=== PATIENT | female | born 1950 | race Caucasian/White ===

== ENCOUNTER 2020-11-14 04:19 | Emergency (ER) | payer MEDICARE, SELFPAY ==
--- NOTE | ~2020-11-14 | CT_ITS ---
EXAMINATION: CT ABDOMEN AND PELVIS WITHOUT CONTRAST CLINICAL INFORMATION: Fall with back and abdominal pain COMPARISON: None TECHNIQUE: Multidetector volumetric imaging was performed from the superior aspect of the liver through the pubic symphysis. Sagittal and coronal reformatted images were obtained on the technologist's workstation. This CT examination was performed using dose optimization techniques as appropriate, variously including the following: *Automated exposure control *Adjustment of mA and/or kV according to patient size (this includes techniques or standardized protocols for targeted exams where dose is matched to indication/reason for exam; i.e. extremities or head) *Use of iterative reconstruction technique DLP: 868 mGy-cm FINDINGS: LUNG BASES: The visualized lung bases are unremarkable. LIVER, GALLBLADDER, AND BILIARY TREE: The liver is normal in size, shape, and attenuation. No focal hepatic lesion or biliary ductal dilatation is present. Gallbladder unremarkable. PANCREAS: Unremarkable. SPLEEN: Unremarkable. ADRENAL GLANDS: There is a 1.6 cm nodule within left adrenal gland measuring -15 Hounsfield units (compared to the spleen is 23 Hounsfield units, which corrects to 2 Hounsfield units), compatible with a lipid rich adenoma. Right adrenal gland is normal. KIDNEYS AND URETERS: The kidneys are normal in size, shape, and attenuation. There are bilateral renal cysts including a few hyperdense cyst within the lower pole right kidney. No hydronephrosis, hydroureter, or calculi seen. No perinephric stranding. BLADDER: Unremarkable. GASTROINTESTINAL TRACT: The small and large bowel are unremarkable. The appendix is unremarkable. ABDOMINAL WALL: No significant hernia is appreciated. LYMPH NODES: Normal. VASCULAR: Aorta is atherosclerotic. Penetrating atherosclerotic ulceration/focal dissection evident within the infrarenal abdominal aorta, incompletely characterized on this unenhanced exam. No aortic aneurysm or periaortic fat stranding. PELVIC VISCERA: Uterus and adnexa unremarkable. OSSEOUS STRUCTURES: Mildly displaced fractures of the right L1 and L2 transverse processes. Nondisplaced fracture of the right posterior 10th rib. CT/CT abdomen pelvis wo con IMPRESSION: * Mildly displaced fractures of the right L1 and L2 transverse processes. * Nondisplaced right posterior 10th rib fracture. * No evidence of solid or hollow visceral injury within the abdomen or pelvis. * Bilateral renal cysts, technically indeterminate on this unenhanced exam. Consider nonemergent renal ultrasound for further characterization. 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 * No aortic aneurysm
[2020-11-14 04:30] VITALS: BP 142/98; BP 181/71; PULSE 90; RESP 18; O2SAT 97; O2SAT 99; BMI 36.0
--- NOTE | 2020-11-14 06:23 | ED.FALL ---
HPI - Fall General Chief Complaint: Fall <Jose R Kraft MD - Last Filed: 11/14/20 06:31> Stated Complaint: lower back pain <Jose R Kraft MD - Last Filed: 11/14/20 06:31> Time Seen by Provider: 11/14/20 06:23 <Jose R Kraft MD - Last Filed: 11/14/20 06:31> Source: patient <Jose R Kraft MD - Last Filed: 11/14/20 06:31> Mode of arrival: ambulatory <Jose R Kraft MD - Last Filed: 11/14/20 06:31> Limitations: no limitations <Jose R Kraft MD - Last Filed: 11/14/20 06:31> History of Present Illness HPI Narrative: Patient fell on her back yesterday on her right lower back. patient fell because her legs are weak secondary to her rheumatoid arthritis. Patient states she landed against the bathroom tub. <Jose R Kraft MD - Last Filed: 11/14/20 06:31> MD complaint: fall <Jose R Kraft MD - Last Filed: 11/14/20 06:31> Onset (ago): day(s) <Jose R Kraft MD - Last Filed: 11/14/20 06:31> Fall from: standing <Jose R Kraft MD - Last Filed: 11/14/20 06:31> Place fall occurred: home <Jose R Kraft MD - Last Filed: 11/14/20 06:31> Loss of consciousness: none <Jose R Kraft MD - Last Filed: 11/14/20 06:31> Prolonged down time: no <Jose R Kraft MD - Last Filed: 11/14/20 06:31> Symptoms prior to fall: none <Jose R Kraft MD - Last Filed: 11/14/20 06:31> Context: tripped/slipped <Jose R Kraft MD - Last Filed: 11/14/20 06:31> Location of injury: back <Jose R Kraft MD - Last Filed: 11/14/20 06:31> Related Data Home Medications: Previous Rx's Medication Instructions Recorded lidocaine 5 % topical patch 1 patch TOPICAL DAILY #30 ea 11/14/20 (Lidoderm) <Jose R Kraft MD - Last Filed: 11/14/20 06:31> Allergies/Adverse Reactions: Allergies Allergy/AdvReac Type Severity Reaction Status Date / Time lisinopril [LISINOPRIL] Allergy Severe ANAPHYLAXIS Verified 11/14/20 07:16 Sulfa (Sulfonamide Allergy Intermediate RASH Verified 11/14/20 07:16 Antibiotics) [SULFA (SULFONAMIDE ANTIBIOTICS)] tramadol [TRAMADOL] Allergy Intermediate RASH Verified 11/14/20 07:16 [id number] Reductase Allergy Rash Verified 11/14/20 07:16 Inhibitor hydrochlorothiazide [HCTZ] AdvReac Unknown ABNORMAL Verified 11/14/20 07:16 LABS? <Jose R Kraft MD - Last Filed: 11/14/20 06:31> Review of Systems Constitutional: Constitutional: Reports no additional constitutional complaints <Jose R Kraft MD - Last Filed: 11/14/20 06:31> Eyes: Eyes: Reports no additional eye complaints <Jose R Kraft MD - Last Filed: 11/14/20 06:31> ENT: Denies dizziness <Jose R Kraft MD - Last Filed: 11/14/20 06:31> Cardiovascular: Cardiovascular: Reports no additional cardiovascular complaints <Jose R Kraft MD - Last Filed: 11/14/20 06:31> Respiratory: Respiratory: Reports as per HPI <Jose R Kraft MD - Last Filed: 11/14/20 06:31> Gastrointestinal: Gastrointestinal: Reports no additional gastrointestinal complaints <Jose R Kraft MD - Last Filed: 11/14/20 06:31> Genitourinary: Genitourinary: Reports no additional female genitourinary complaints <Jose R Kraft MD - Last Filed: 11/14/20 06:31> Musculoskeletal: Musculoskeletal: Reports no additional musculoskeletal complaints <Jose R Kraft MD - Last Filed: 11/14/20 06:31> Integumentary/Breasts: Skin/Breast: Denies rash <Jose R Kratf MD - Last Filed: 11/14/20 06:31> Neurologic: Reports system reviewed and no additional complaints, except as documented, Denies dizziness and Denies Sensory deficit (Neuro) <Jose R Kraft MD - Last Filed: 11/14/20 06:31> Psychiatric: Psychiatric: Denies anxiety <Jose R Kraft MD - Last Filed: 11/14/20 06:31> [facility] Past Medical History Medical History: Medical History (Updated 11/14/20 @ 09:54 by Tino Chirinos MD) Depression Fibromyalgia HTN (hypertension) Rheumatoid arthritis <Jose R Kraft MD - Last Filed: 11/14/20 06:31> Surgical History: Surgical History (Updated 11/14/20 @ 04:35 by Ashley Rhoades) Hx of prior ablation treatment Knee joint replacement status <Jose R Kraft MD - Last Filed: 11/14/20 06:31> Social History Social History: Social History Advance Directives: No Advance Directives Information Provided: Yes <Jose R Kraft MD - Last Filed: 11/14/20 06:31> Physical Exam Vital Signs: Vital Signs: Last Vital Signs Pulse 82 11/14/20 08:46 Resp 16 11/14/20 08:46 BP 150/51 H 11/14/20 08:46 Pulse Ox 98 11/14/20 08:46 Body Mass Index 36.0 <Jose R Kraft MD - Last Filed: 11/14/20 06:31> Vital Signs: Last Vital Signs Pulse 82 11/14/20 08:46 Resp 16 11/14/20 08:46 BP 150/51 H 11/14/20 08:46 Pulse Ox 98 11/14/20 08:46 Body Mass Index 36.0 <Tino Chirinos MD - Last Filed: 11/14/20 09:54> Const: Other: obese female looking older than stated age in pain with nausea <Jose R Kraft MD - Last Filed: 11/14/20 06:31> Nutritional Appearance: obese <Jose R Kraft MD - Last Filed: 11/14/20 06:31> Orientation/consciousness: oriented to person and patient oriented x3 <Jose R Kraft MD - Last Filed: 11/14/20 06:31> Limitations: no limitations <Jose R Kraft MD - Last Filed: 11/14/20 06:31> HENMT: Head: Yes normal to inspection <Jose R Kraft MD - Last Filed: 11/14/20 06:31> Ears: external ears normal <Jose R Kraft MD - Last Filed: 11/14/20 06:31> General nose exam: Normal external nose present <Jose R Kraft MD - Last Filed: 11/14/20 06:31> Mouth: Normal oral and palatal mucosa present and oropharynx normal <Jose R Kraft MD - Last Filed: 11/14/20 06:31> Throat: Yes posterior oropharynx normal <Jose R Kraft MD - Last Filed: 11/14/20 06:31> Eyes: General: appearance normal, both eyes and all related structures <Jose R Kraft MD - Last Filed: 11/14/20 06:31> Neck: Other: supple <Jose R Kraft MD - Last Filed: 11/14/20 06:31> Neck: Yes normal visual inspection <Jose R Kraft MD - Last Filed: 11/14/20 06:31> Chest: Chest palpation & inspection: normal inspection of the chest <Jose R Kraft MD - Last Filed: 11/14/20 06:31> Resp: Auscultation: clear to auscultation bilaterally <Jose R Kraft MD - Last Filed: 11/14/20 06:31> Cardio: Jugular venous distension: no JVD <Jose R Kraft MD - Last Filed: 11/14/20 06:31> Rate: regular rate <Jose R Kraft MD - Last Filed: 11/14/20 06:31> Rhythm: regular rhythm <Jose R Kraft MD - Last Filed: 11/14/20 06:31> Heart sounds: S1 normal heart sound present and S2 normal heart sound present <Jose R Kraft MD - Last Filed: 11/14/20 06:31> GI: Other: obese with diffuse tenderness <Jose R Kraft MD - Last Filed: 11/14/20 06:31> Palpation (GI): Tenderness to palpation present (GI) <Jose R Kraft MD - Last Filed: 11/14/20 06:31> Auscultation: normal bowel sounds <Jose R Kraft MD - Last Filed: 11/14/20 06:31> : General: Yes no CVA tenderness <Jose R Kraft MD - Last Filed: 11/14/20 06:31> Back/Spine/Pelvis: Back: no CVA tenderness <Jose R Kraft MD - Last Filed: 11/14/20 06:31> Skin: General skin exam: no rashes or lesions noted <Jose R Kraft MD - Last Filed: 11/14/20 06:31> Neuro: General: oriented to person and patient oriented x3 <Jose R Kraft MD - Last Filed: 11/14/20 06:31> Cranial nerves: Yes CN's II-XII intact bilaterally <Jose R Kraft MD - Last Filed: 11/14/20 06:31> Motor exam (neuro): 5/5 motor strength present throughout <Jose R Kraft MD - Last Filed: 11/14/20 06:31> Sensory Exam: No Sensory deficit (Neuro) <Jose R Kraft MD - Last Filed: 11/14/20 06:31> Extrem: General: Yes normal to inspection <Jose R Kraft MD - Last Filed: 11/14/20 06:31> Psych: Appearance: grossly normal <Jose R Kraft MD - Last Filed: 11/14/20 06:31> MDM - Fall MDM Narrative Medical decision making narrative: Patient status post mechanical fall CT scan showed mildly displaced transverse process fracture of L1 and L2 and nondisplaced fracture of right posterior 10th rib . No neuro deficit no no impingement on the spinal cord or nerve roots patient able to ambulate in the ER. Will discharge patient on pain meds which she already has at home taking oxycodone <Tino Chirinos MD - Last Filed: 11/14/20 09:54> Lab Data Result diagrams: : 11/14/20 07:10 11/14/20 07:10 <Jose R Kraft MD - Last Filed: 11/14/20 06:31> Labs: Lab Results 11/14/20 11/14/20 11/14/20 Range/Units 07:10 07:10 07:10 WBC 10.6 (4.8-10.8) X10*3/uL RBC 3.43 L (4.20-5.50) X10*6/uL Hgb 11.2 L (12.0-16.0) g/dl Hct 33.7 L (37-47) % MCV 98.3 H (80-98) fL MCH 32.7 (27.0-33.0) pg MCHC 33.2 (31.0-35.0) g/dl RDW 14.7 (11.0-16.0) % Plt Count 195 (160-400) X10*3/uL MPV 10.2 (9.4-12.3) fL Immature Gran % (Auto) 0.7 H (0.0-0.4) % Neut % (Auto) 80.9 H (45-73) % Lymph % (Auto) 13.2 L (20-40) % Bay % (Auto) 3.1 (2-11) % Eos % (Auto) 1.9 (0-4) % Baso % (Auto) 0.2 (0-2) % Lymph # (Auto) 1.4 (1.2-4.9) X10*3/uL Bay # (Auto) 0.3 (0.1-1.2) X10*3/uL Eos # (Auto) 0.2 (0.0-0.4) X10*3/uL Baso # (Auto) 0.0 (0.0-0.2) X10*3/uL Abs Immat Gran (auto) 0.07 H (0.00-0.03) X10*3/uL Absolute Neuts (auto) 8.6 H (2.0-8.3) X10*3/uL Absolute Nucleated RBC 0.000 (0.0-0.012) X10*3/uL Nucleated RBC % (auto) 0.0 (0.0-0.2) /100WBC Sodium 136 (135-145) mmol/L Potassium 4.6 (3.3-5.1) mmol/L Chloride 101 (96-108) mmol/L Carbon Dioxide 24 (22-29) mmol/L Anion Gap 16 (12-20) BUN 43 H (9-16) mg/dL Creatinine 1.28 (0.5-1.4) mg/dL Estim Creat Clear Calc 52.2 Estimated GFR 41 Random Glucose 102 (60-115) mg/dL Calcium 9.6 (8.4-10.2) mg/dL Total Bilirubin 0.7 (0.0-1.0) mg/dL Direct Bilirubin 0.3 (0.0-0.5) mg/dL AST 20 (5-31) U/L ALT 17 (0-31) U/L Alkaline Phosphatase 94 (39-117) U/L Total Protein 6.9 (6.5-8.0) g/dL Albumin 3.9 (3.5-5.0) g/dL Urine Color Urine Appearance Urine pH (5.0-8.0) Ur Specific [place] (1.005-1.025) Urine Protein (NEG-TRACE) MG/DL Urine Glucose (UA) (NEG) MG/DL Urine Ketones (NEG) MG/DL Urine Blood (NEG) Urine Nitrite (NEG) Ur Leukocyte Esterase (NEG) Urine RBC (0) /HPF Urine WBC (0-4) /HPF Ur Squamous Epith Cells /LPF Urine Bacteria /LPF 11/14/20 Range/Units 08:45 WBC (4.8-10.8) X10*3/uL RBC (4.20-5.50) X10*6/uL Hgb (12.0-16.0) g/dl Hct (37-47) % MCV (80-98) fL MCH (27.0-33.0) pg MCHC (31.0-35.0) g/dl RDW (11.0-16.0) % Plt Count (160-400) X10*3/uL MPV (9.4-12.3) fL Immature Gran % (Auto) (0.0-0.4) % Neut % (Auto) (45-73) % Lymph % (Auto) (20-40) % Bay % (Auto) (2-11) % Eos % (Auto) (0-4) % Baso % (Auto) (0-2) % Lymph # (Auto) (1.2-4.9) X10*3/uL Bay # (Auto) (0.1-1.2) X10*3/uL Eos # (Auto) (0.0-0.4) X10*3/uL Baso # (Auto) (0.0-0.2) X10*3/uL Abs Immat Gran (auto) (0.00-0.03) X10*3/uL Absolute Neuts (auto) (2.0-8.3) X10*3/uL Absolute Nucleated RBC (0.0-0.012) X10*3/uL Nucleated RBC % (auto) (0.0-0.2) /100WBC Sodium (135-145) mmol/L Potassium (3.3-5.1) mmol/L Chloride (96-108) mmol/L Carbon Dioxide (22-29) mmol/L Anion Gap (12-20) BUN (9-16) mg/dL Creatinine (0.5-1.4) mg/dL Estim Creat Clear Calc Estimated GFR Random Glucose (60-115) mg/dL Calcium (8.4-10.2) mg/dL Total Bilirubin (0.0-1.0) mg/dL Direct Bilirubin (0.0-0.5) mg/dL AST (5-31) U/L ALT (0-31) U/L Alkaline Phosphatase (39-117) U/L Total Protein (6.5-8.0) g/dL Albumin (3.5-5.0) g/dL Urine Color YELLOW Urine Appearance HAZY Urine pH 6.0 (5.0-8.0) Ur Specific [place] 1.025 (1.005-1.025) Urine Protein TRACE (NEG-TRACE) MG/DL Urine Glucose (UA) NEG (NEG) MG/DL Urine Ketones 15 (NEG) MG/DL Urine Blood 1+ H (NEG) Urine Nitrite NEG (NEG) Ur Leukocyte Esterase 2+ H (NEG) Urine RBC 5-9 H (0) /HPF Urine WBC 50-75 H (0-4) /HPF Ur Squamous Epith Cells 1+ /LPF Urine Bacteria 1+ /LPF <Jose R Kraft MD - Last Filed: 11/14/20 06:31> Lab Results 11/14/20 11/14/20 11/14/20 Range/Units 07:10 07:10 07:10 WBC 10.6 (4.8-10.8) X10*3/uL RBC 3.43 L (4.20-5.50) X10*6/uL Hgb 11.2 L (12.0-16.0) g/dl Hct 33.7 L (37-47) % MCV 98.3 H (80-98) fL MCH 32.7 (27.0-33.0) pg MCHC 33.2 (31.0-35.0) g/dl RDW 14.7 (11.0-16.0) % Plt Count 195 (160-400) X10*3/uL MPV 10.2 (9.4-12.3) fL Immature Gran % (Auto) 0.7 H (0.0-0.4) % Neut % (Auto) 80.9 H (45-73) % Lymph % (Auto) 13.2 L (20-40) % Bay % (Auto) 3.1 (2-11) % Eos % (Auto) 1.9 (0-4) % Baso % (Auto) 0.2 (0-2) % Lymph # (Auto) 1.4 (1.2-4.9) X10*3/uL [place] # (Auto) 0.3 (0.1-1.2) X10*3/uL Eos # (Auto) 0.2 (0.0-0.4) X10*3/uL Baso # (Auto) 0.0 (0.0-0.2) X10*3/uL Abs Immat Gran (auto) 0.07 H (0.00-0.03) X10*3/uL Absolute Neuts (auto) 8.6 H (2.0-8.3) X10*3/uL Absolute Nucleated RBC 0.000 (0.0-0.012) X10*3/uL Nucleated RBC % (auto) 0.0 (0.0-0.2) /100WBC Sodium 136 (135-145) mmol/L Potassium 4.6 (3.3-5.1) mmol/L Chloride 101 (96-108) mmol/L Carbon Dioxide 24 (22-29) mmol/L Anion Gap 16 (12-20) BUN 43 H (9-16) mg/dL Creatinine 1.28 (0.5-1.4) mg/dL Estim Creat Clear Calc 52.2 Estimated GFR 41 Random Glucose 102 (60-115) mg/dL Calcium 9.6 (8.4-10.2) mg/dL Total Bilirubin 0.7 (0.0-1.0) mg/dL Direct Bilirubin 0.3 (0.0-0.5) mg/dL AST 20 (5-31) U/L ALT 17 (0-31) U/L Alkaline Phosphatase 94 (39-117) U/L Total Protein 6.9 (6.5-8.0) g/dL Albumin 3.9 (3.5-5.0) g/dL Urine Color Urine Appearance Urine pH (5.0-8.0) Ur Specific [place] (1.005-1.025) Urine Protein (NEG-TRACE) MG/DL Urine Glucose (UA) (NEG) MG/DL Urine Ketones (NEG) MG/DL Urine Blood (NEG) Urine Nitrite (NEG) Ur Leukocyte Esterase (NEG) Urine RBC (0) /HPF Urine WBC (0-4) /HPF Ur Squamous Epith Cells /LPF Urine Bacteria /LPF 11/14/20 Range/Units 08:45 WBC (4.8-10.8) X10*3/uL RBC (4.20-5.50) X10*6/uL Hgb (12.0-16.0) g/dl Hct (37-47) % MCV (80-98) fL MCH (27.0-33.0) pg MCHC (31.0-35.0) g/dl RDW (11.0-16.0) % Plt Count (160-400) X10*3/uL MPV (9.4-12.3) fL Immature Gran % (Auto) (0.0-0.4) % Neut % (Auto) (45-73) % Lymph % (Auto) (20-40) % [place] % (Auto) (2-11) % Eos % (Auto) (0-4) % Baso % (Auto) (0-2) % Lymph # (Auto) (1.2-4.9) X10*3/uL [place] # (Auto) (0.1-1.2) X10*3/uL Eos # (Auto) (0.0-0.4) X10*3/uL Baso # (Auto) (0.0-0.2) X10*3/uL Abs Immat Gran (auto) (0.00-0.03) X10*3/uL Absolute Neuts (auto) (2.0-8.3) X10*3/uL Absolute Nucleated RBC (0.0-0.012) X10*3/uL Nucleated RBC % (auto) (0.0-0.2) /100WBC Sodium (135-145) mmol/L Potassium (3.3-5.1) mmol/L Chloride (96-108) mmol/L Carbon Dioxide (22-29) mmol/L Anion Gap (12-20) BUN (9-16) mg/dL Creatinine (0.5-1.4) mg/dL Estim Creat Clear Calc Estimated GFR Random Glucose (60-115) mg/dL Calcium (8.4-10.2) mg/dL Total Bilirubin (0.0-1.0) mg/dL Direct Bilirubin (0.0-0.5) mg/dL AST (5-31) U/L ALT (0-31) U/L Alkaline Phosphatase (39-117) U/L Total Protein (6.5-8.0) g/dL Albumin (3.5-5.0) g/dL Urine Color YELLOW Urine Appearance HAZY Urine pH 6.0 (5.0-8.0) Ur Specific [place] 1.025 (1.005-1.025) Urine Protein TRACE (NEG-TRACE) MG/DL Urine Glucose (UA) NEG (NEG) MG/DL Urine Ketones 15 (NEG) MG/DL Urine Blood 1+ H (NEG) Urine Nitrite NEG (NEG) Ur Leukocyte Esterase 2+ H (NEG) Urine RBC 5-9 H (0) /HPF Urine WBC 50-75 H (0-4) /HPF Ur Squamous Epith Cells 1+ /LPF Urine Bacteria 1+ /LPF <Tino Chirinos MD - Last Filed: 11/14/20 09:54> Discharge Plan Discharge Clinical Impression: Fracture of transverse process of lumbar vertebra Qualifiers: Encounter type: initial encounter Fracture type: closed Qualified Code(s): S32.009A - Unspecified fracture of unspecified lumbar vertebra, initial encounter for closed fracture Fracture of rib Qualifiers: Encounter type: initial encounter Rib fracture type: single rib Fracture type: closed Laterality: left Qualified Code(s): S22.32XA - Fracture of one rib, left side, initial encounter for closed fracture <Jose R Kraft MD - Last Filed: 11/14/20 06:31> Patient Disposition: Home, Self-Care <Jose R Kraft MD - Last Filed: 11/14/20 06:31> Instructions: Rib Fracture (ED), Thoracolumbar Fracture (ED) <Jose R Kraft MD - Last Filed: 11/14/20 06:31> Additional Instructions: Your fracture of the spine usually treated with pain medication, they usually heal in few weeks, no surgery is required Continue pain medication as prescribed by your title curative specialist Lidoderm patch for local tenderness Report to the ER if increased pain/leg weakness/paresthesias in leg <Jose R Kraft MD - Last Filed: 11/14/20 06:31> Prescriptions: New lidocaine [Lidoderm] 5 % adhesive patch,medicated 1 patch topical DAILY Qty: 30 RF: 0 <Jose R Kraft MD - Last Filed: 11/14/20 06:31>
[2020-11-14] MEDS: 0.9 % Sodium Chloride 1,000 ML 999 ML IVCONT ×2 (07:11→07:13)
[2020-11-14] MEDS: Morphine Sulfate 4 MG/ML CARTRIDGE IVPUSH (07:11)
[2020-11-14] MEDS: ondansetron HCL 4 MG/2 ML VIAL IVPUSH (07:11)
[2020-11-14 07:15] VITALS: BP 162/67; PULSE 80; RESP 18; O2SAT 99
[2020-11-14 07:20] LABS: MANUAL DIFF FLAG NO
[2020-11-14 07:22] LABS: Basophils Percent Auto 0.2 % (0-2); Eosinophils Absolute Auto 0.2 X10*3/uL (0.0-0.4); Eosinophils Percent Auto 1.9 % (0-4); Hematocrit 33.7 % (37-47); Hemoglobin 11.2 g/dl (12.0-16.0); Imm Gran Abs Auto 0.07 X10*3/uL (0.00-0.03); Imm Gran Pct Auto 0.7 % (0.0-0.4); Lymphocytes Absolute Auto 1.4 X10*3/uL (1.2-4.9); Lymphocytes Percent Auto 13.2 % (20-40); Mean Corpuscular HGB Conc 33.2 g/dl (31.0-35.0); Mean Corpuscular Hemoglobin 32.7 pg (27.0-33.0); Mean Corpuscular Volume 98.3 fL (80-98); Mean Platelet Volume 10.2 fL (9.4-12.3); Monocytes Absolute Auto 0.3 X10*3/uL (0.1-1.2); Monocytes Percent Auto 3.1 % (2-11); Neutrophils Absolute Auto 8.6 X10*3/uL (2.0-8.3); Neutrophils Percent Auto 80.9 % (45-73); Platelet Count 195 X10*3/uL (160-400); Red Blood Count 3.43 X10*6/uL (4.20-5.50); Red Cell Distribution Width 14.7 % (11.0-16.0); White Blood Count 10.6 X10*3/uL (4.8-10.8)
[2020-11-14 07:45] LABS: Anion Gap 16 (12-20); Blood Urea Nitrogen 43 mg/dL (9-16); Calcium 9.6 mg/dL (8.4-10.2); Carbon Dioxide 24 mmol/L (22-29); Chloride 101 mmol/L (96-108); Creatinine Clr Calc Pharmacy 52.2; Estimated Glomerular Filt Rate 41; Glucose Random 102 mg/dL (60-115); Potassium 4.6 mmol/L (3.3-5.1); Sodium 136 mmol/L (135-145)
[2020-11-14 07:46] LABS: Alanine Aminotransferase 17 U/L (0-31); Albumin Level 3.9 g/dL (3.5-5.0); Alkaline Phosphatase 94 U/L (39-117); Aspartate Amino Transferase 20 U/L (5-31); Bilirubin Direct 0.3 mg/dL (0.0-0.5); Bilirubin Total 0.7 mg/dL (0.0-1.0); Total Protein 6.9 g/dL (6.5-8.0)
--- NOTE | 2020-11-14 08:24 | PC.NURSE ---
Assumed care of patient at 0700- patient assisted to the bedpan X2 without ability to urinate. Bladder scan ordered and performed with result of 538mL in bladder. Provider made aware, brown to be placed and ? admit for pain regulation d/t fracture
[2020-11-14] MEDS: HYDROmorphone HCl 2 MG/ML VIAL IVPUSH (08:34)
[2020-11-14 08:46] VITALS: BP 150/51; PULSE 82; RESP 16; O2SAT 98
[2020-11-14 08:55] LABS: Glucose Urine UA NEG (NEG); Leukocyte Esterase Urine 2+ (NEG); Nitrite Urine NEG (NEG); Specific Gravity - Urine 1.025 (1.005-1.025); UACC Culture Trigger YES; Urine Blood 1+ (NEG); Urine Ketones 15 MG/DL (NEG); Urine Protein TRACE MG/DL (NEG-TRACE)
[2020-11-14 08:57] LABS: Appearance Urine HAZY; Color Urine YELLOW
[2020-11-14 09:07] LABS: Bacteria Urine 1+ /LPF; Squamous Epithelial Cell Urine 1+ /LPF; WBC Urine 50-75 /HPF (0-4)
--- NOTE | 2020-11-14 09:29 | PC.NURSE ---
patient ambulated with this RN slowly but steadily- states she has resources at home and feels safe to go home. MD made aware and plan is to d/c and remove brown
== END 2020-11-14 10:17 | disposition home or self-care (01) ==
PROVIDERS: Emergency Provider Emergency Medicine
DX: S22.31XA Fracture of one rib, right side, initial encounter for closed fracture (principal); S32.018A Other fracture of first lumbar vertebra, initial encounter for closed fracture; S32.028A Other fracture of second lumbar vertebra, initial encounter for closed fracture; W01.198A Fall on same level from slipping, tripping and stumbling with subsequent striking against other object, initial encounter; Y93.E8 Activity, other personal hygiene; Y92.031 Bathroom in apartment as the place of occurrence of the external cause; Y99.9 Unspecified external cause status
CPT/HCPCS: 36415; 74176; 80048; 80076; 81001; 85025; 87086; 87088; 87186; 96361; 96374; 96375; 99284; J1170; J2270; J2405

== ENCOUNTER 2021-08-23 03:46 | Inpatient (IN) | payer MEDICARE, SELFPAY ==
[2021-08-23] VITALS (13 sets, daily range): BP systolic 148–181; BP diastolic 62–90; PULSE 66–94; RESP 15–20; TEMP 36.3–38; O2SAT 91–99; BMI 36.3
--- NOTE | ~2021-08-23 | CT_ITS ---
EXAMINATION: CT CHEST WITHOUT CONTRAST CLINICAL INFORMATION: Shortness of breath and cough. COMPARISON: CXR from 08/23/2021 TECHNIQUE: Multidetector volumetric CT imaging of the chest was done. Axial MIP volume rendering provided. Sagittal and coronal reformatted images were obtained. This CT examination was performed using dose optimization techniques as appropriate, variously including the following: *Automated exposure control *Adjustment of mA and/or kV according to patient size (this includes techniques or standardized protocols for targeted exams where dose is matched to indication/reason for exam; i.e. extremities or head) *Use of iterative reconstruction technique DLP: 486 mGy-cm FINDINGS: LUNGS AND PLEURA: [id number] centrilobular emphysema. There are paraseptal emphysematous changes, as well. Bronchial regalado are diffusely thickened. Bilateral pulmonary micronodules are present. Findings also include 0.4 cm subsolid nodular focus in the lateral right upper lobe (image 153, series 4) and 0.5 cm irregular nodule in the right upper lobe (image 181, series 4). These likely represent mild inflammatory changes. However, in a patient with risk factors, and based on consideration of Fleischner Society guidelines, noncontrast chest CT follow-up in 6 months may be considered. There is a small area of groundglass and reticular nodular opacity in the lateral right lower lobe (images [id number], series 4). Active inflammation of small peripheral airways is suspected. Also, scattered, mild mucus is present in bronchi of each lower lobe. No pleural effusion or pneumothorax. CARDIOVASCULAR: The heart size is normal. [id number] atherosclerotic calcification of coronary arteries. Thoracic aorta atherosclerosis without aneurysm. Pulmonary arteries are unremarkable for noncontrast examination. No pericardial effusion. MEDIASTINUM AND LOWER NECK: No mediastinal mass. The esophagus and thyroid gland are unremarkable. LYMPHATICS: No pathologic sized lymph nodes. UPPER ABDOMEN: Adrenal glands are unremarkable. 2.1 cm simple cyst at the upper pole of the right kidney. No renal imaging follow-up recommended. SKELETAL AND CHEST WALL: Moderate multilevel discovertebral degenerative change of the visualized spine. 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 Subacute, healing fractures of left lateral fifth and sixth ribs. There are fractures without osseous union of right posterolateral seventh and eighth ribs and right posterior 10th rib. CT/CT chest wo con IMPRESSION: * Pulmonary emphysema and diffusely thickened bronchial regalado. Correlate for history of chronic obstructive pulmonary disease. In a patient with cough, active bronchitis is suspected. The small nodular opacities are likely related to inflammation or infection of peripheral airways. Also, there is a mild amount of scattered mucous within bronchi of lower lobes. There is no pleural effusion or lymphadenopathy. * Other incidental findings, as noted above.
--- NOTE | ~2021-08-23 | XR_ITS ---
EXAMINATION: XR CHEST CLINICAL INFORMATION: Shortness of breath COMPARISON: 01/25/2019 TECHNIQUE: 2 views of the chest were obtained. FINDINGS: Lung volumes are symmetric. No focal consolidation is seen. There is suggestion of mild bronchial wall thickening, similar to prior. No evidence of pneumothorax, pleural effusion, or pulmonary edema. Cardiac silhouette appears borderline enlarged. No acute osseous findings are seen. XR/XR chest 2V IMPRESSION: No acute cardiopulmonary findings.
[2021-08-23 04:47] LABS: COVID-19 Test Negative (Negative); IDNOW Serial# 16C4AD1C; IDNOW Serial# 9DB6401D; Influenza A Negative (Negative); Influenza B2 Negative (Negative)
[2021-08-23] MEDS: Albuterol Sulfate (0.083%) 2.5 MG/3 ML VIAL.NEB 10 MG INHALE (05:03)
[2021-08-23 05:09] LABS: Basophils Percent Auto 0.1 % (0-2); Eosinophils Absolute Auto 0.1 X10*3/uL (0.0-0.4); Eosinophils Percent Auto 0.8 % (0-4); Hematocrit 33.2 % (37.0-47.0); Hemoglobin 11.3 g/dl (12.0-16.0); Imm Gran Abs Auto 0.04 X10*3/uL (0.00-0.03); Imm Gran Pct Auto 0.5 % (0.0-0.4); Lymphocytes Absolute Auto 0.8 X10*3/uL (1.2-4.9); Lymphocytes Percent Auto 11.2 % (20-40); MANUAL DIFF FLAG NO; Mean Corpuscular Hemoglobin 33.8 pg (27.0-33.0); Mean Corpuscular Volume 99.4 fL (80.0-98.0); Mean Platelet Volume 10.5 fL (9.4-12.3); Monocytes Percent Auto 12.7 % (2-11); Neutrophils Absolute Auto 5.6 x10*3/uL (2.0-8.3); Neutrophils Percent Auto 74.7 % (45-73); Platelet Count 146 X10*3/uL (160-400); Red Blood Count 3.34 X10*6/uL (4.20-5.50); Red Cell Distribution Width 15.2 % (11.0-16.0); White Blood Count 7.5 X10*3/uL (4.8-10.8)
[2021-08-23 05:11] LABS: VBG Base Excess 0.2 mmol/L; VBG HCO3 24 mmol/L (22-26); VBG pCO2 36 mmHg; VBG pH 7.42 (7.32-7.43); VBG pO2 95 mmHg
[2021-08-23 05:12] LABS: Venous Blood Gas Refer to POC result
[2021-08-23 05:33] LABS: Alanine Aminotransferase 24 U/L (0-31); Albumin Level 3.9 g/dL (3.5-5.0); Alkaline Phosphatase 86 U/L (39-117); Anion Gap 16 (12-20); Aspartate Amino Transferase 32 U/L (5-31); Bilirubin Total 0.5 mg/dL (0.0-1.0); Blood Urea Nitrogen 28 mg/dL (9-16); Calcium 9.1 mg/dL (8.4-10.2); Carbon Dioxide 23 mmol/L (22-29); Chloride 101 mmol/L (96-108); Creatinine Clr Calc Pharmacy 64.9; Estimated Glomerular Filt Rate 54; Glucose Random 105 mg/dL (60-115); Potassium 4.1 mmol/L (3.3-5.1); Sodium 136 mmol/L (135-145); Total Protein 7.1 g/dL (6.5-8.0)
--- NOTE | 2021-08-23 05:38 | ED.SOB ---
HPI - SOB/Dyspnea General Chief Complaint: Dyspnea Stated Complaint: Cold Time Seen by Provider: 08/23/21 04:48 Source: patient and family Mode of arrival: EMS History of Present Illness HPI Narrative: 71-year-old female with history of COPD but no longer current smoker, she does take Lasix, and reports that over the past couple of days she has become increasingly short of breath with a productive cough of sputum. In the triage note patient reports fever and cough for 4 days. Patient states that she took 2 home test which were negative, and she states that yesterday she did not take her ?water pill?. Related Data Home Medications Medication Instructions Recorded Confirmed albuterol sulfate 90 mcg/actuation 2 puff PO Q6H PRN 08/23/21 08/23/21 aerosol inhaler atenolol 50 mg tablet 1 tab PO BID 08/23/21 08/23/21 bupropion HCl 150 mg 24 hr tablet, 1 tab PO DAILY PRN 08/23/21 08/23/21 extended release bupropion HCl 300 mg 24 hr tablet, 1 tab PO DAILY 08/23/21 08/23/21 extended release duloxetine 60 mg capsule,delayed 1 cap PO BID 08/23/21 08/23/21 release ergocalciferol (vitamin D2) 1,250 1 cap PO QWEEK 08/23/21 08/23/21 mcg (50,000 unit) capsule gemfibrozil 600 mg tablet 1 tab PO BID 08/23/21 08/23/21 levothyroxine 50 mcg tablet 1 tab PO QAM 08/23/21 08/23/21 methotrexate sodium 2.5 mg tablet 10 tab PO QWEEK 08/23/21 08/23/21 omeprazole 40 mg capsule,delayed 1 cap PO DAILY 08/23/21 08/23/21 release oxycodone 20 mg tablet 20 mg PO Q4-6H PRN 08/23/21 08/23/21 prednisone 1 mg tablet 4 tab PO QAM 08/23/21 08/23/21 pregabalin 150 mg capsule 1 cap PO BID 08/23/21 08/23/21 Allergies Allergy/AdvReac Type Severity Reaction Status Date / Time lisinopril [LISINOPRIL] Allergy Severe ANAPHYLAXIS Verified 11/14/20 07:16 Sulfa (Sulfonamide Allergy Intermediate RASH Verified 11/14/20 07:16 Antibiotics) [SULFA (SULFONAMIDE ANTIBIOTICS)] tramadol [TRAMADOL] Allergy Intermediate RASH Verified 11/14/20 07:16 Vbbuotr-SCY-TgA Reductase Allergy Rash Verified 11/14/20 07:16 Inhibitor [Umrgyvo-Wnq-Lbk Reductase Inhibitor] hydrochlorothiazide [HCTZ] AdvReac Unknown ABNORMAL Verified 11/14/20 07:16 LABS? Review of Systems Review of Systems: Pertinent positives and negatives as stated in HPI 10 point review of systems is otherwise negative. ON LICENSE OF [facility] Past Medical History Source: nursing notes reviewed Medical History Depression Fibromyalgia HTN (hypertension) Rheumatoid arthritis Surgical History Hx of prior ablation treatment Knee joint replacement status Social History Social History Alcohol intake: never Patient Tobacco Use Status: Former Tobacco user Use of substances other than those prescribed or required for medical reasons: No Advance Directives: No Physical Exam Vital Signs: Vital Signs: Last Vital Signs Temp 98.6 F 08/23/21 04:12 Pulse 66 08/23/21 05:04 Resp 18 08/23/21 05:04 BP 181/70 H 08/23/21 04:12 Pulse Ox 97 08/23/21 06:00 BMI result Body Mass Index 36.3 VITAL SIGNS: Reviewed. GENERAL: Well developed, well nourished, in no acute distress. HEAD: Normocephalic/atraumatic EYES: PERRLA, EOMI EARS: Ext canals without abnormality OROPHARYNX: no oral lesions noted, posterior pharynx clear LUNGS: Normal breath sounds. No adventitious sounds or accessory muscle use. SpO2<94> CARDIOVASCULAR: Regular rate and rhythm without noted murmurs, no JVD or bilateral 1+ pitting edema ABDOMEN: Soft, non-tender, non-distended with bowel sounds. MUSCULOSKELETAL: No tenderness, deformities, or effusions noted on gross inspection. EXTREMITIES: No cyanosis, clubbing but 1+ pitting edema bilaterally SKIN: Inspection of the skin reveals no rashes NEUROLOGIC: Alert and oriented x 4. Strength and sensation to light touch were grossly intact x 4. Course Course Course Narrative: 0545: This is a 71-year-old female with history and clinical presentation suggestive of possible viral infection, pneumonia, COPD exacerbation. Review of all investigations further supports likelihood of COPD exacerbation, this case was discussed with the inpatient hospitalist and accepts admission. Patient has received antibiotics. MDM - SOB/Dyspnea Lab Data Result diagrams: 08/23/21 05:04 08/23/21 05:04 Labs: Lab Results 08/23/21 08/23/21 08/23/21 Range/Units 04:28 04:28 05:03 WBC (4.8-10.8) X10*3/uL RBC (4.20-5.50) X10*6/uL Hgb (12.0-16.0) g/dl Hct (37.0-47.0) % MCV (80.0-98.0) fL MCH (27.0-33.0) pg MCHC (31.0-35.0) g/dl RDW (11.0-16.0) % Plt Count (160-400) X10*3/uL MPV (9.4-12.3) fL Immature Gran % (Auto) (0.0-0.4) % Neut % (Auto) (45-73) % Lymph % (Auto) (20-40) % [place] % (Auto) (2-11) % Eos % (Auto) (0-4) % Baso % (Auto) (0-2) % Lymph # (Auto) (1.2-4.9) X10*3/uL [place] # (Auto) (0.1-1.2) X10*3/uL Eos # (Auto) (0.0-0.4) X10*3/uL Baso # (Auto) (0.0-0.2) X10*3/uL Abs Immat Gran (auto) (0.00-0.03) X10*3/uL Absolute Neuts (auto) (2.0-8.3) x10*3/uL Absolute Nucleated RBC (0.0-0.012) X10*3/uL Nucleated RBC % (auto) (0.0-0.2) /100WBC VBG pH 7.42 (7.32-7.43) VBG pCO2 36 mmHg VBG pO2 95 mmHg VBG HCO3 24 (22-26) mmol/L VBG O2 Saturation 97.0 % VBG Base Excess 0.2 mmol/L Sodium (135-145) mmol/L Potassium (3.3-5.1) mmol/L Chloride (96-108) mmol/L Carbon Dioxide (22-29) mmol/L Anion Gap (12-20) BUN (9-16) mg/dL Creatinine (0.5-1.4) mg/dL Estim Creat Clear Calc Estimated GFR Random Glucose (60-115) mg/dL Lactic Acid (0.5-2.0) mmol/L Calcium (8.4-10.2) mg/dL Total Bilirubin (0.0-1.0) mg/dL AST (5-31) U/L ALT (0-31) U/L Alkaline Phosphatase (39-117) U/L B-Natriuretic Peptide (<100) pg/mL Total Protein (6.5-8.0) g/dL Albumin (3.5-5.0) g/dL COVID-19 (KERRI) Negative (Negative) COVID-19 Clin Com See Note Influenza Type A (OCTAVIO) Negative (Negative) Influenza Type B (OCTAVIO) Negative (Negative) Influenza A & B Note See Note 08/23/21 08/23/21 08/23/21 Range/Units 05:04 05:04 05:04 WBC 7.5 (4.8-10.8) X10*3/uL RBC 3.34 L (4.20-5.50) X10*6/uL Hgb 11.3 L (12.0-16.0) g/dl Hct 33.2 L (37.0-47.0) % MCV 99.4 H (80.0-98.0) fL MCH 33.8 H (27.0-33.0) pg MCHC 34.0 (31.0-35.0) g/dl RDW 15.2 (11.0-16.0) % Plt Count 146 L (160-400) X10*3/uL MPV 10.5 (9.4-12.3) fL Immature Gran % (Auto) 0.5 H (0.0-0.4) % Neut % (Auto) 74.7 H (45-73) % Lymph % (Auto) 11.2 L (20-40) % [place] % (Auto) 12.7 H (2-11) % Eos % (Auto) 0.8 (0-4) % Baso % (Auto) 0.1 (0-2) % Lymph # (Auto) 0.8 L (1.2-4.9) X10*3/uL [place] # (Auto) 1.0 (0.1-1.2) X10*3/uL Eos # (Auto) 0.1 (0.0-0.4) X10*3/uL Baso # (Auto) 0.0 (0.0-0.2) X10*3/uL Abs Immat Gran (auto) 0.04 H (0.00-0.03) X10*3/uL Absolute Neuts (auto) 5.6 (2.0-8.3) x10*3/uL Absolute Nucleated RBC 0.000 (0.0-0.012) X10*3/uL Nucleated RBC % (auto) 0.0 (0.0-0.2) /100WBC VBG pH (7.32-7.43) VBG pCO2 mmHg VBG pO2 mmHg VBG HCO3 (22-26) mmol/L VBG O2 Saturation % VBG Base Excess mmol/L Sodium 136 (135-145) mmol/L Potassium 4.1 (3.3-5.1) mmol/L Chloride 101 (96-108) mmol/L Carbon Dioxide 23 (22-29) mmol/L Anion Gap 16 (12-20) BUN 28 H (9-16) mg/dL Creatinine 1.02 (0.5-1.4) mg/dL Estim Creat Clear Calc 64.9 Estimated GFR 54 Random Glucose 105 (60-115) mg/dL Lactic Acid (0.5-2.0) mmol/L Calcium 9.1 (8.4-10.2) mg/dL Total Bilirubin 0.5 (0.0-1.0) mg/dL AST 32 H D (5-31) U/L ALT 24 (0-31) U/L Alkaline Phosphatase 86 (39-117) U/L B-Natriuretic Peptide 122 H (<100) pg/mL Total Protein 7.1 (6.5-8.0) g/dL Albumin 3.9 (3.5-5.0) g/dL COVID-19 (KERRI) (Negative) COVID-19 Clin Com Influenza Type A (OCTAVIO) (Negative) Influenza Type B (OCTAVIO) (Negative) Influenza A & B Note 08/23/21 Range/Units 06:12 WBC (4.8-10.8) X10*3/uL RBC (4.20-5.50) X10*6/uL Hgb (12.0-16.0) g/dl Hct (37.0-47.0) % MCV (80.0-98.0) fL MCH (27.0-33.0) pg MCHC (31.0-35.0) g/dl RDW (11.0-16.0) % Plt Count (160-400) X10*3/uL MPV (9.4-12.3) fL Immature Gran % (Auto) (0.0-0.4) % Neut % (Auto) (45-73) % Lymph % (Auto) (20-40) % [place] % (Auto) (2-11) % Eos % (Auto) (0-4) % Baso % (Auto) (0-2) % Lymph # (Auto) (1.2-4.9) X10*3/uL [place] # (Auto) (0.1-1.2) X10*3/uL Eos # (Auto) (0.0-0.4) X10*3/uL Baso # (Auto) (0.0-0.2) X10*3/uL Abs Immat Gran (auto) (0.00-0.03) X10*3/uL Absolute Neuts (auto) (2.0-8.3) x10*3/uL Absolute Nucleated RBC (0.0-0.012) X10*3/uL Nucleated RBC % (auto) (0.0-0.2) /100WBC VBG pH (7.32-7.43) VBG pCO2 mmHg VBG pO2 mmHg VBG HCO3 (22-26) mmol/L VBG O2 Saturation % VBG Base Excess mmol/L Sodium (135-145) mmol/L Potassium (3.3-5.1) mmol/L Chloride (96-108) mmol/L Carbon Dioxide (22-29) mmol/L Anion Gap (12-20) BUN (9-16) mg/dL Creatinine (0.5-1.4) mg/dL Estim Creat Clear Calc Estimated GFR Random Glucose (60-115) mg/dL Lactic Acid 0.9 (0.5-2.0) mmol/L Calcium (8.4-10.2) mg/dL Total Bilirubin (0.0-1.0) mg/dL AST (5-31) U/L ALT (0-31) U/L Alkaline Phosphatase (39-117) U/L B-Natriuretic Peptide (<100) pg/mL Total Protein (6.5-8.0) g/dL Albumin (3.5-5.0) g/dL COVID-19 (KERRI) (Negative) COVID-19 Clin Com Influenza Type A (OCTAVIO) (Negative) Influenza Type B (OCTAVIO) (Negative) Influenza A & B Note ECG Data Attestation: I personally reviewed and interpreted this ECG as follows: Prior ECG tracings: available for review Interpretation: Normal sinus rhythm, HR-96, no STEMI, NV/QRS/QTC are within normal limits. Discharge Plan Discharge Clinical Impression: COPD exacerbation, Congestive heart failure Patient Disposition: Admitted As Inpatient Prescriptions: No Action omeprazole 40 mg capsule,delayed release(DR/EC) 1 cap PO DAILY 0RF methotrexate sodium 2.5 mg tablet 10 tab PO QWEEK 0RF prednisone 1 mg tablet 4 tab PO QAM 0RF gemfibrozil 600 mg tablet 1 tab PO BID 0RF levothyroxine 50 mcg tablet 1 tab PO QAM 0RF ergocalciferol (vitamin D2) 1,250 mcg (50,000 unit) capsule 1 cap PO QWEEK 0RF albuterol sulfate 90 mcg/actuation HFA aerosol inhaler 2 puff PO Q6H PRN (Reason: wheezing) 0RF atenolol 50 mg tablet 1 tab PO BID 0RF bupropion HCl 300 mg tablet extended release 24 hr 1 tab PO DAILY 0RF bupropion HCl 150 mg tablet extended release 24 hr 1 tab PO DAILY PRN (Reason: Pain, Severe) 0RF duloxetine 60 mg capsule,delayed release(DR/EC) 1 cap PO BID 0RF pregabalin 150 mg capsule 1 cap PO BID 0RF oxycodone 20 mg tablet 20 mg PO Q4-6H PRN (Reason: Pain) 0RF
--- NOTE | 2021-08-23 05:49 | ECG_ITS ---
Test Reason : SOB Blood Pressure : / mmHG Vent. Rate : 096 BPM Atrial Rate : 096 BPM P-R Int : 132 ms QRS Dur : 084 ms QT Int : 382 ms P-R-T Axes : 051 024 062 degrees QTc Int : 482 ms Normal sinus rhythm Possible Left atrial enlargement Nonspecific ST abnormality Abnormal ECG When compared with ECG of 23-SEP-2017 08:27, No significant change was found Referred By: Nica Munoz Electronically Signed By:Fredi Mckinney
[2021-08-23 06:02] LABS: B Type Natriuretic Peptide 122 pg/mL (<100)
[2021-08-23] MEDS: methylPREDNISolone Sod Succ 125 MG/2 ML VIAL IVPUSH (06:10)
[2021-08-23] MEDS: cefTRIAXone sodium 1 GM in 0.9 % Sodium Chloride 50 ML IV (06:11)
[2021-08-23 06:31] LABS: Lactic Acid 0.9 mmol/L (0.5-2.0)
[2021-08-23] MEDS: Albuterol Sulfate (0.083%) 2.5 MG/3 ML VIAL.NEB 5 MG INHALE (06:43)
[2021-08-23] MEDS: Acetaminophen 325 MG TABLET 650 MG PO (08:04)
--- NOTE | 2021-08-23 08:12 | P.HPHOSP_ITS ---
History of Present Illness Date of Service: 08/23/21 Chief Complaint: Shortness of breath 71-year-old female with history of rheumatoid arthritis, rheumatoid lung, COPD, quit smoking about 5 years ago. Other history includes hypertension, hyperlipidemia, hypothyroidism. She presented to the emergency room because of 2 days of increasing shortness of breath not feeling well nonproductive cough and subjective fever up. She has been using her inhalers at home without any significant improvement and therefore came to the emergency room. A checks x- ray showed no acute finding CT of the chest show evidence of pulmonary emphysema. She has been treated with bronchodilators and intravenous steroids and feels better. Her oxygen saturation has been labile. Review of Systems Review of Systems: Gen: +fever, not feeling well Resp: + sob, + cough CV: no chest, no SAMANIEGO, no leg edema GI: No n/v, no abd pain Neuro: No confusion Yes all other systems are reviewed and are negative [facility] Medical History (Updated 08/23/21 @ 08:16 by Cameron Benavides MD) COPD (chronic obstructive pulmonary disease) Depression Fibromyalgia HTN (hypertension) Hypothyroidism Rheumatoid arthritis Rheumatoid lung Family History (Updated 08/23/21 @ 08:14 by Cameron Benavides MD) Father No problems noted. Other Heart disease Surgical History Hx of prior ablation treatment Knee joint replacement status Social History Household Members: None Housing: Apartment Do you presently have visiting nurse or other home services: Yes Alcohol intake: never Patient Tobacco Use Status: Former Tobacco user Use of substances other than those prescribed or required for medical reasons: No Currently Displaying Signs/Symptoms of Drug Intoxication Withdrawal: No Have you been hit, kicked, punched, or otherwise hurt by someone within the past year? If so, by whom?: No Do you feel safe in your current relationship?: No Current Relationship Is there a partner from a previous relationship who is making you feel unsafe now?: No Are you made to feel afraid or neglected: No Gnosticism Healthcare Practices: cheondoism Advance Directives: No Do you have thoughts of harming others: None Do you have a plan to hurt others: No Plan Recently lost weight without trying: No Nutrition Risks: No Nutritional Risk Patient : No : No Poor oral hygiene: No Meds Allergies Allergy/AdvReac Type Severity Reaction Status Date / Time lisinopril [LISINOPRIL] Allergy Severe ANAPHYLAXIS Verified 11/14/20 07:16 Sulfa (Sulfonamide Allergy Intermediate RASH Verified 11/14/20 07:16 Antibiotics) [SULFA (SULFONAMIDE ANTIBIOTICS)] tramadol [TRAMADOL] Allergy Intermediate RASH Verified 11/14/20 07:16 Sanbgks-YWV-PmG Reductase Allergy Rash Verified 11/14/20 07:16 Inhibitor [Nhepypr-Xor-Wmv Reductase Inhibitor] hydrochlorothiazide [HCTZ] AdvReac Unknown ABNORMAL Verified 11/14/20 07:16 LABS? Active Medications: Current Medications Pharmacy Consult (Consult Rx Perform Med Rec) 1 each MISCELLANE ONCE PRN PRN Reason: Consult order Home Medications Medication Instructions Recorded Confirmed Last Taken Type albuterol sulfate 90 mcg/actuation 2 puff PO Q6H PRN 08/23/21 08/23/21 Unknown History aerosol inhaler atenolol 50 mg tablet 1 tab PO BID 08/23/21 08/23/21 Unknown History bupropion HCl 150 mg 24 hr tablet, 1 tab PO DAILY PRN 08/23/21 08/23/21 Unknown History extended release bupropion HCl 300 mg 24 hr tablet, 1 tab PO DAILY 08/23/21 08/23/21 Unknown History extended release duloxetine 60 mg capsule,delayed 1 cap PO BID 08/23/21 08/23/21 Unknown History release ergocalciferol (vitamin D2) 1,250 1 cap PO QWEEK 08/23/21 08/23/21 Unknown History mcg (50,000 unit) capsule gemfibrozil 600 mg tablet 600 mg PO BID 08/23/21 08/23/21 Unknown History levothyroxine 50 mcg tablet 1 tab PO QAM 08/23/21 08/23/21 Unknown History methotrexate sodium 2.5 mg tablet 10 tab PO MO@1000 08/23/21 08/23/21 Unknown History omeprazole 40 mg capsule,delayed 1 cap PO DAILY 08/23/21 08/23/21 Unknown History release oxycodone 20 mg tablet 20 mg PO Q4H PRN 08/23/21 08/23/21 Unknown History prednisone 1 mg tablet 4 tab PO QAM 08/23/21 08/23/21 Unknown History pregabalin 150 mg capsule 150 mg PO BID 08/23/21 08/23/21 Unknown History Physical Exam Vital Signs and Narrative: Vital Signs: Last Vital Signs Temp 98.6 F 08/23/21 04:12 Pulse 90 08/23/21 06:44 Resp 18 08/23/21 06:44 BP 181/70 H 08/23/21 04:12 Pulse Ox 97 08/23/21 06:00 BMI result Body Mass Index 36.3 Const: Other: Constitutional: Alert, in no distress, overweight. Mental Status: Oriented to person, place and time. Eyes: Pupils are equal, round and reactive to light. Ear, Nose and Throat: Oropharynx clear, mucous membranes moist. Ears and nose without eformities Respiratory: Inspiratory and expiratory wheezes mild increased work of breathing, rhonchi bilaterally. Cardiovascular: S1 S2 regular. No murmurs, rubs or gallops. Gastrointestinal: Abdomen soft, non-tender, non-distended. Normal bowel sounds.? Neurologic: Cranial nerves II-XII grossly intact. No focal neurological deficits. Moves all extremities spontaneously.? Skin: No rashes or lesions.? Musculoskeletal: No cyanosis or clubbing. Psychiatric: Normal mood and affect? Results Labs CBC and Chem 7: 08/23/21 05:04 08/23/21 05:04 Labs: Laboratory Results - last 24 hr 08/23/21 08/23/21 08/23/21 04:28 04:28 05:03 MCV MCH MCHC RDW Plt Count MPV Immature Gran % (Auto) Neut % (Auto) Lymph % (Auto) [place] % (Auto) Eos % (Auto) Baso % (Auto) Lymph # (Auto) [place] # (Auto) Eos # (Auto) Baso # (Auto) Abs Immat Gran (auto) Absolute Neuts (auto) Absolute Nucleated RBC Nucleated RBC % (auto) VBG pH 7.42 VBG pCO2 36 VBG pO2 95 VBG HCO3 24 VBG O2 Saturation 97.0 VBG Base Excess 0.2 Anion Gap Estim Creat Clear Calc Estimated GFR Random Glucose Lactic Acid Calcium Total Bilirubin AST ALT Alkaline Phosphatase B-Natriuretic Peptide Total Protein Albumin COVID-19 (KERRI) Negative COVID-19 Clin Com See Note Influenza Type A (OCTAVOI) Negative Influenza Type B (OCTAVIO) Negative Influenza A & B Note See Note 08/23/21 08/23/21 08/23/21 05:04 05:04 05:04 MCV 99.4 H MCH 33.8 H MCHC 34.0 RDW 15.2 Plt Count 146 L MPV 10.5 Immature Gran % (Auto) 0.5 H Neut % (Auto) 74.7 H Lymph % (Auto) 11.2 L [place] % (Auto) 12.7 H Eos % (Auto) 0.8 Baso % (Auto) 0.1 Lymph # (Auto) 0.8 L [place] # (Auto) 1.0 Eos # (Auto) 0.1 Baso # (Auto) 0.0 Abs Immat Gran (auto) 0.04 H Absolute Neuts (auto) 5.6 Absolute Nucleated RBC 0.000 Nucleated RBC % (auto) 0.0 VBG pH VBG pCO2 VBG pO2 VBG HCO3 VBG O2 Saturation VBG Base Excess Anion Gap 16 Estim Creat Clear Calc 64.9 Estimated GFR 54 Random Glucose 105 Lactic Acid Calcium 9.1 Total Bilirubin 0.5 AST 32 H D ALT 24 Alkaline Phosphatase 86 B-Natriuretic Peptide 122 H Total Protein 7.1 Albumin 3.9 COVID-19 (KERRI) COVID-19 Clin Com Influenza Type A (OCTAVIO) Influenza Type B (OCTAVIO) Influenza A & B Note 08/23/21 06:12 MCV MCH MCHC RDW Plt Count MPV Immature Gran % (Auto) Neut % (Auto) Lymph % (Auto) [place] % (Auto) Eos % (Auto) Baso % (Auto) Lymph # (Auto) [place] # (Auto) Eos # (Auto) Baso # (Auto) Abs Immat Gran (auto) Absolute Neuts (auto) Absolute Nucleated RBC Nucleated RBC % (auto) VBG pH VBG pCO2 VBG pO2 VBG HCO3 VBG O2 Saturation VBG Base Excess Anion Gap Estim Creat Clear Calc Estimated GFR Random Glucose Lactic Acid 0.9 Calcium Total Bilirubin AST ALT Alkaline Phosphatase B-Natriuretic Peptide Total Protein Albumin COVID-19 (KERRI) COVID-19 Clin Com Influenza Type A (OCTAVIO) Influenza Type B (OCTAVIO) Influenza A & B Note Imaging Radiologist's Impressions: Impressions Chest X-Ray 08/23/21 04:45 IMPRESSION: No acute cardiopulmonary findings. Chest CT 08/23/21 06:36 IMPRESSION: * Pulmonary emphysema and diffusely thickened bronchial regalado. Correlate for history of chronic obstructive pulmonary disease. In a patient with cough, active bronchitis is suspected. The small nodular opacities are likely related to inflammation or infection of peripheral airways. Also, there is a mild amount of scattered mucous within bronchi of lower lobes. There is no pleural effusion or lymphadenopathy. * Other incidental findings, as noted above. Assessment and Plan (1) Rheumatoid lung: Status: Acute (2) COPD exacerbation: Status: Acute Plan 71-year-old female with rheumatoid arthritis, rheumatoid lung, COPD, here with exacerbation of COPD likely precipitating my bronchitis. # Acute exacerbation of COPD-- admit for IV steroid, bronchodilator by nebulizer schedule and p.r.n. doxycycline for bronchitis. # Hypertension continue atenolol #depression continue bupropion # hyperlipidemia-- Gemfibrozil #hypothyroidism-- levothyroxine # Rheumatoid arthritis-- Plaquenil DVT prophylaxis: Lovenox Admission to spend at least 2 midnights for management of exacerbation of COPD in a patient with severe COPD, rheumatoid lung at risk for rapid deterioration Quality Stroke Does the patient have a stroke diagnosis?: No VTE Prior VTE?: No VTE Risk Level:: Medical - moderate - high VTE Device Contraindication: Treatment Not Indicated VTE Drug Contraindication: N/A - Med Ordered
[2021-08-23] MEDS: gemfibroziL 600 MG TABLET PO ×2 (09:43→21:48)
[2021-08-23] MEDS: DULoxetine HCl 60 MG CAPSULE.DR PO ×2 (09:44→21:48)
[2021-08-23] MEDS: Pregabalin 150 MG CAPSULE PO ×2 (09:44→21:48)
[2021-08-23] MEDS: atenoloL 50 MG TABLET PO ×2 (09:44→21:48)
[2021-08-23] MEDS: buPROPion HCl XL 300 MG TAB.ER.24H PO (09:44)
[2021-08-23] MEDS: methylPREDNISolone Sod Succ 40 MG/ML VIAL IVPUSH ×3 (09:46→21:48)
[2021-08-23] MEDS: Enoxaparin Sodium 40 MG/0.4 ML SYRINGE SUBCUT (09:48)
[2021-08-23] MEDS: metHOTREXate sodium 2.5 MG TABLET 25 MG PO (09:49)
[2021-08-23] MEDS: oxyCODONE HCl Immed Release 5 MG TABLET 20 MG PO ×3 (09:58→21:49)
[2021-08-23] MEDS: Albuterol/Iprat 2.5/0.5MG 3 ML AMPUL.NEB INHALE ×3 (11:52→20:31)
[2021-08-24] MEDS: 0.9 % Sodium Chloride Flush 3 ML SYRINGE IVFLUSH ×2 (00:50→09:55)
[2021-08-24] MEDS: methylPREDNISolone Sod Succ 40 MG/ML VIAL IVPUSH ×2 (03:28→09:53)
[2021-08-24] MEDS: oxyCODONE HCl Immed Release 5 MG TABLET 20 MG PO ×2 (03:33→09:53)
[2021-08-24] MEDS: Levothyroxine Sodium 50 MCG TABLET PO (06:39)
[2021-08-24] MEDS: Omeprazole 40 MG CAPSULE.DR PO (06:39)
[2021-08-24 07:33] VITALS: BP 162/79; PULSE 60; RESP 18; TEMP 36.2; O2SAT 93
[2021-08-24] MEDS: Albuterol/Iprat 2.5/0.5MG 3 ML AMPUL.NEB INHALE ×2 (08:00→10:49)
[2021-08-24 08:02] VITALS: PULSE 84; RESP 18; O2SAT 92
[2021-08-24] MEDS: Pregabalin 150 MG CAPSULE PO (09:54)
[2021-08-24] MEDS: Enoxaparin Sodium 40 MG/0.4 ML SYRINGE SUBCUT (09:54)
[2021-08-24] MEDS: DULoxetine HCl 60 MG CAPSULE.DR PO (09:54)
[2021-08-24] MEDS: buPROPion HCl XL 300 MG TAB.ER.24H PO (09:54)
[2021-08-24] MEDS: buPROPion HCl XL 150 MG TAB.ER.24H PO (09:54)
[2021-08-24] MEDS: gemfibroziL 600 MG TABLET PO (09:54)
[2021-08-24] MEDS: atenoloL 50 MG TABLET PO (09:54)
--- NOTE | 2021-08-24 10:45 | P.DS_ITS ---
DS: Providers Provider Date of Service: 08/24/21 Date of admission: 08/23/21 08:23 Primary care physician: Unknown Physician DS: Diagnosis Discharge Diagnosis (1) Rheumatoid lung: Status: Acute (2) COPD exacerbation: Status: Acute DS: Summary Hospital Course Hospital Course: 71-year-old female with history of rheumatoid arthritis, rheumatoid lung, COPD, quit smoking about 5 years ago. Other history includes hypertension, hyperlipidemia, hypothyroidism. She presented to the emergency room because of 2 days of increasing shortness of breath not feeling well nonproductive cough and subjective fever up. She has been using her inhalers at home without any significant improvement and therefore came to the emergency room. A checks x- ray showed no acute finding CT of the chest show evidence of pulmonary emphysema. She has been treated with bronchodilators and intravenous steroids and feels better. Her oxygen saturation has been labile. Hospital course: Patient was admitted overnight with acute exacerbation of COPD likely precipitated by acute bronchitis, CXR and CT of chest showed no acute pneumonia. She was treated with IV solumedrol, bronchodilators scheduled and PRN and make rather quicker than expected recovery, she jc be discharged with 5 days of prednisone, Doxycyline for bronchitis and to continue use of inhalers,. She doesn't smoke anymore Time Spent with Patient Time attestation: Total time spent providing and/or coordinating discharge services: Discharge coordination time: Greater than 30 minutes Quality: Safe Use of Opioids Does Pt have an Active Cancer Diagnosis on the Problem List?: No Quality: Stroke Does the patient have a stroke diagnosis?: No Physical Exam Vital Signs: Vital Signs: Last Vital Signs Temp 97.1 F 08/24/21 07:33 Pulse 84 08/24/21 08:02 Resp 18 08/24/21 08:02 BP 162/79 H 08/24/21 07:33 Pulse Ox 93 08/24/21 07:33 BMI result Body Mass Index 36.3 DS: Data Data Completed and Pending Labs on day of discharge: Preliminary micro results at discharge 08/23/21 07:27 Blood Culture - Preliminary Blood - Venous No growth after 24 hours. 08/23/21 06:12 Blood Culture - Preliminary Blood - Venous No growth after 24 hours. Discharge Plan Discharge Anticipated Discharge Date/Time: 08/24/21 10:39 Patient Disposition: Home, Self-Care Discharge Diagnosis: Exacerbation of COPD Referrals: Physician,Unknown J [Primary Care Provider] - 1 Week Discharge Medications: New prednisone 20 mg tablet 40 mg PO DAILY Qty: 8 0RF doxycycline hyclate 100 mg tablet 100 mg PO BID 5 Days Qty: 10 0RF Continued omeprazole 40 mg capsule,delayed release(DR/EC) 1 cap PO DAILY 0RF methotrexate sodium 2.5 mg tablet 10 tab PO MO@1000 0RF prednisone 1 mg tablet 4 tab PO QAM 0RF gemfibrozil 600 mg tablet 600 mg PO BID 0RF levothyroxine 50 mcg tablet 1 tab PO QAM 0RF ergocalciferol (vitamin D2) 1,250 mcg (50,000 unit) capsule 1 cap PO QWEEK 0RF albuterol sulfate 90 mcg/actuation HFA aerosol inhaler 2 puff PO Q6H PRN (Reason: wheezing) 0RF atenolol 50 mg tablet 1 tab PO BID 0RF bupropion HCl 300 mg tablet extended release 24 hr 1 tab PO DAILY 0RF bupropion HCl 150 mg tablet extended release 24 hr 1 tab PO DAILY PRN (Reason: Pain, Severe) 0RF duloxetine 60 mg capsule,delayed release(DR/EC) 1 cap PO BID 0RF pregabalin 150 mg capsule 150 mg PO BID 0RF oxycodone 20 mg tablet 20 mg PO Q4H PRN (Reason: Pain) 0RF Discharge Orders: Discharge Order (Routine); Ordered 08/24/21 Ordered By: Cameron Benavides Diet: advance to usual diet Activity on Discharge: As tolerated Stand Alone Forms: Patient Portal Discharge page Care Plan Goals: full recovery from COPD exacerbation Health Concerns: chronic respiratory failure due to COPD, rheumatoid lung Plan of Treatment: take prednisone as directed continue using inhalers as before take doxycycline for bronchitis in follow-up with your primary care doctor within a week, call for appointment. Assessment: As above
[2021-08-24 10:49] VITALS: PULSE 78; RESP 18; O2SAT 92
== END 2021-08-24 13:59 | disposition home or self-care (01) | DRG 192 ==
LOC: HO.ED 06:39 → HO.EDOVER 08:29 → HO.S3 17:48
PROVIDERS: Admitting Provider Internal Medicine; Emergency Provider Student in an Organized Health Care Education/Training Program; Visit Provider Internal Medicine
DX: J44.1 Chronic obstructive pulmonary disease with (acute) exacerbation (principal); I11.0 Hypertensive heart disease with heart failure; E78.5 Hyperlipidemia, unspecified; M05.10 Rheumatoid lung disease with rheumatoid arthritis of unspecified site; E03.9 Hypothyroidism, unspecified; F32.A Depression, unspecified; Z20.822 Contact with and (suspected) exposure to COVID-19; I50.9 Heart failure, unspecified; Z87.891 Personal history of nicotine dependence; Z88.2 Allergy status to sulfonamides; Z88.5 Allergy status to narcotic agent; Z88.8 Allergy status to other drugs, medicaments and biological substances; Z79.52 Long term (current) use of systemic steroids; Z79.890 Hormone replacement therapy; Z79.899 Other long term (current) drug therapy
CPT/HCPCS: 36415; 71046; 71250; 80053; 82803; 83605; 83880; 85025; 87040; 87502; 87635; 93005; 94640; 94644; 94645; 96365; 96375; 99285; J0696; J1650; J2920; J2930

== ENCOUNTER 2022-01-25 08:45 | Outpatient (RCR) | payer MEDICARE, SELFPAY ==
--- NOTE | ~2022-01-25 | XR_ITS ---
EXAMINATION: XR FOOT, LEFT CLINICAL INFORMATION: Abscess of the left fifth metatarsal head COMPARISON: None TECHNIQUE: AP, lateral, and oblique views of the left foot. FINDINGS: Bandaging overlies the foot. There is no fracture or dislocation. No osseous erosions are seen, but there is mildly increased lucency of the fifth metatarsal head compared to the other metatarsals. No radiopaque foreign body. Diffuse soft tissue swelling. XR/XR foot LT min 3V IMPRESSION: Diffuse soft tissue swelling. No osseous erosions are seen, but there is mildly increased lucency of the fifth metatarsal head compared to the other metatarsals. This could be associated with osteomyelitis.
[2022-01-25 10:24] LABS: MANUAL DIFF FLAG NO
[2022-01-25 11:04] LABS: Basophils Percent Auto 0.3 % (0-2); Eosinophils Absolute Auto 0.1 X10*3/uL (0.0-0.4); Eosinophils Percent Auto 1.7 % (0-4); Hematocrit 34.1 % (37.0-47.0); Imm Gran Abs Auto 0.06 X10*3/uL (0.00-0.03); Imm Gran Pct Auto 1.7 % (0.0-0.4); Lymphocytes Absolute Auto 0.6 X10*3/uL (1.2-4.9); Lymphocytes Percent Auto 17.2 % (20-40); Mean Corpuscular HGB Conc 32.3 g/dl (31.0-35.0); Mean Corpuscular Hemoglobin 33.4 pg (27.0-33.0); Mean Corpuscular Volume 103.6 fL (80.0-98.0); Mean Platelet Volume 10.5 fL (9.4-12.3); Monocytes Absolute Auto 0.5 X10*3/uL (0.1-1.2); Monocytes Percent Auto 14.4 % (2-11); Neutrophils Absolute Auto 2.3 x10*3/uL (2.0-8.3); Neutrophils Percent Auto 64.7 % (45-73); Platelet Count 146 X10*3/uL (160-400); Red Blood Count 3.29 X10*6/uL (4.20-5.50); Red Cell Distribution Width 14.6 % (11.0-16.0); White Blood Count 3.6 X10*3/uL (4.8-10.8)
[2022-01-25 11:14] LABS: Estimated Average Glucose 103 mg/dL; Hemoglobin A1c % 5.2 %
[2022-01-25 11:34] LABS: Anion Gap 16 (12-20); Blood Urea Nitrogen 16 mg/dL (9-16); C Reactive Protein 5.29 mg/dL (< or = 0.50); Calcium 9.4 mg/dL (8.4-10.2); Carbon Dioxide 29 mmol/L (22-29); Chloride 102 mmol/L (96-108); Estimated Glomerular Filt Rate 48; Glucose Random 85 mg/dL (60-115); Potassium 4.6 mmol/L (3.3-5.1); Sodium 142 mmol/L (135-145)
[2022-01-25 11:43] LABS: Erythrocyte Sedimentation Rate 94 MM/HR (0-20)
== END 2022-02-08 07:54 | disposition home or self-care (01) ==
LOC: HO.WCC 08:45
PROVIDERS: PCP Nurse Practitioner Adult Health; Visit Provider Physician Assistant
DX: M65.072 Abscess of tendon sheath, left ankle and foot (principal); M05.50 Rheumatoid polyneuropathy with rheumatoid arthritis of unspecified site; G62.9 Polyneuropathy, unspecified; R60.9 Edema, unspecified; E03.9 Hypothyroidism, unspecified; I10 Essential (primary) hypertension; J44.9 Chronic obstructive pulmonary disease, unspecified; Z87.891 Personal history of nicotine dependence; Z79.52 Long term (current) use of systemic steroids
CPT/HCPCS: 36415; 73630; 80048; 83036; 84134; 85025; 85652; 86140; 99212; 99213

== ENCOUNTER 2022-01-27 13:12 | Emergency (ER) | payer MEDICARE, SELFPAY ==
[2022-01-27 13:30] VITALS: BP 92/65; PULSE 68; RESP 18; TEMP 37; O2SAT 99; BMI 34.4
[2022-01-27 13:45] LABS: MANUAL DIFF FLAG NO
[2022-01-27 13:48] LABS: Basophils Percent Auto 0.3 % (0-2); Eosinophils Absolute Auto 0.2 X10*3/uL (0.0-0.4); Eosinophils Percent Auto 2.9 % (0-4); Hematocrit 38.7 % (37.0-47.0); Hemoglobin 12.7 g/dl (12.0-16.0); Imm Gran Abs Auto 0.13 X10*3/uL (0.00-0.03); Imm Gran Pct Auto 1.7 % (0.0-0.4); Lymphocytes Absolute Auto 1.5 X10*3/uL (1.2-4.9); Lymphocytes Percent Auto 18.9 % (20-40); Mean Corpuscular HGB Conc 32.8 g/dl (31.0-35.0); Mean Corpuscular Volume 103.8 fL (80.0-98.0); Mean Platelet Volume 10.1 fL (9.4-12.3); Monocytes Absolute Auto 0.9 X10*3/uL (0.1-1.2); Monocytes Percent Auto 11.6 % (2-11); NRBC Pct Auto 0.3 /100WBC (0.0-0.2); Neutrophils Absolute Auto 5.1 x10*3/uL (2.0-8.3); Neutrophils Percent Auto 64.6 % (45-73); Platelet Count 188 X10*3/uL (160-400); Red Blood Count 3.73 X10*6/uL (4.20-5.50); Red Cell Distribution Width 14.7 % (11.0-16.0); White Blood Count 7.8 X10*3/uL (4.8-10.8)
[2022-01-27 14:07] LABS: Anion Gap 18 (12-20); Blood Urea Nitrogen 19 mg/dL (9-16); Carbon Dioxide 22 mmol/L (22-29); Chloride 107 mmol/L (96-108); Creatinine Clr Calc Pharmacy 52.4; Estimated Glomerular Filt Rate 43; Glucose Random 105 mg/dL (60-115); Potassium 3.9 mmol/L (3.3-5.1); Sodium 143 mmol/L (135-145)
[2022-01-27 18:07] VITALS: BP 100/85; PULSE 68; RESP 16; TEMP 36.1; O2SAT 98
[2022-01-27] MEDS: Ibuprofen 600 MG TABLET PO (19:27)
--- NOTE | 2022-01-27 19:28 | PC.NURSE ---
Patient ambulatory with cane to director of sports performance. Stating she has now missed 3 doses of her oxycodone d/t waiting so long. Patient requesting motrin as she takes it at home daily.
--- NOTE | 2022-01-27 22:24 | ED.EXTPRO ---
HPI - Extremity Problem General Chief complaint: Extremity Problem Stated complaint: Infection L Foot Sent By Time Seen by Provider: 01/27/22 20:41 Source: patient and family Mode of arrival: ambulatory Limitations: no limitations History of Present Illness HPI Narrative: Patient comes to emergency room complaining of are chronic left foot ulcer. Patient has been on Augmentin for several days. Patient denies fever chills, no pus drainage. Patient received a phone call from the wound clinic, she was told to come to the emergency room because she may have osteomyelitis. This was based on an x-ray. Related Data Home Medications Medication Instructions Recorded Confirmed albuterol sulfate 90 mcg/actuation 2 puff PO Q6H PRN wheezing 08/23/21 08/23/21 aerosol inhaler atenolol 50 mg tablet 1 tab PO BID 08/23/21 08/23/21 bupropion HCl 150 mg 24 hr tablet, 1 tab PO DAILY PRN Pain, Severe 08/23/21 08/23/21 extended release bupropion HCl 300 mg 24 hr tablet, 1 tab PO DAILY 08/23/21 08/23/21 extended release duloxetine 60 mg capsule,delayed 1 cap PO BID 08/23/21 08/23/21 release ergocalciferol (vitamin D2) 1,250 1 cap PO QWEEK 08/23/21 08/23/21 mcg (50,000 unit) capsule gemfibrozil 600 mg tablet 600 mg PO BID 08/23/21 08/23/21 levothyroxine 50 mcg tablet 1 tab PO QAM 08/23/21 08/23/21 methotrexate sodium 2.5 mg tablet 10 tab PO MO@1000 08/23/21 08/23/21 omeprazole 40 mg capsule,delayed 1 cap PO DAILY 08/23/21 08/23/21 release oxycodone 20 mg tablet 20 mg PO Q4H PRN Pain 08/23/21 08/23/21 prednisone 1 mg tablet 4 tab PO QAM 08/23/21 08/23/21 pregabalin 150 mg capsule 150 mg PO BID 08/23/21 08/23/21 Previous Rx's Medication Instructions Recorded doxycycline hyclate 100 mg tablet 100 mg PO BID 5 days #10 tabs 08/24/21 prednisone 20 mg tablet 40 mg PO DAILY #8 tabs 08/24/21 Allergies Allergy/AdvReac Type Severity Reaction Status Date / Time lisinopril [LISINOPRIL] Allergy Severe ANAPHYLAXIS Verified 11/14/20 07:16 Sulfa (Sulfonamide Allergy Intermediate RASH Verified 11/14/20 07:16 Antibiotics) [SULFA (SULFONAMIDE ANTIBIOTICS)] tramadol [TRAMADOL] Allergy Intermediate RASH Verified 11/14/20 07:16 Dmiossu-CCK-XhH Reductase Allergy Rash Verified 11/14/20 07:16 Inhibitor [Yzjdmei-Lqk-Rtf Reductase Inhibitor] hydrochlorothiazide [HCTZ] AdvReac Unknown ABNORMAL Verified 11/14/20 07:16 LABS? Review of Systems Review of Systems: Constitutional : No Weight loss, No Fever, No Chills, No Night Sweats, No Fatigue, No Malaise ENT/Mouth : No Hearing loss, No Ear Pain, No Nasal Congestion, No Sinus Pain, No Hoarseness, No sore throat, No Rhinorrhea, No Swallowing Difficulty Eyes: No Eye Pain, No Swelling, No Redness, No Foreign Body, No Discharge, No Vision Changes Cardiovascular : No Chest Pain, No SOB, No Dyspnea on Exertion, No Orthopnea, No Edema, No Palpitations Respiratory : No Cough, No Sputum, No Wheezing, No Smoke Exposure, No Dyspnea Gastrointestinal : No Nausea, No Vomiting, No Diarrhea, No Constipation, No abdominal Pain, No Hematochezia, No Melena Genitourinary : no irregular bleeding, No Dysuria, No Urinary Frequency, No Hematuria, No Urinary Incontinence, No Urgency, No Flank Pain, No Urinary Flow Changes, No Hesitancy Musculoskeletal : No joint pain, No Myalgias, No Joint Swelling Skin : Complaining of a chronic foot ulcer in the plantar aspect of the left foot Neuro : No Weakness, No Numbness, No Paresthesias, No Loss of Consciousness, No Dizziness, No Headache Psych : No Anxiety/Panic, No Depression, No SI/HI/AH/VH, No Social Issues, Heme/Lymph: No Bruising, No Bleeding,No Lymphadenopathy Endocrine : No Polyuria, No Polydipsia, No Temperature Intolerance [facility] Past Medical History Medical History Congestive heart failure COPD (chronic obstructive pulmonary disease) Depression Fibromyalgia HTN (hypertension) Hypothyroidism Rheumatoid arthritis Rheumatoid lung Surgical History Hx of prior ablation treatment Knee joint replacement status Family History Family History (Updated 08/23/21 @ 08:14 by Cameron Benavides MD) Father No problems noted. Other Heart disease Social History Social History Household Members: None Housing: Apartment Do you presently have visiting nurse or other home services: Yes Alcohol intake: never Patient Tobacco Use Status: Former Tobacco user Advance Directives: No Advance Directives Information Provided: No Physical Exam Vital Signs: Vital Signs: Last Vital Signs Temp 97.0 F 01/27/22 18:07 Pulse 68 01/27/22 18:07 Resp 16 01/27/22 18:07 BP 100/85 01/27/22 18:07 Pulse Ox 98 01/27/22 18:07 O2 Del Method 01/27/22 18:07 BMI result Body Mass Index 34.4 Const: Other: Appearance: Alert. Oriented X3. No acute distress. Eyes: Pupils equal, round and reactive to light. ENT: Pharynx normal. Neck: Normal inspection. Neck supple. No lymph nodes noted. No crepitus CVS: Normal heart rate and rhythm. Pulses normal. Normal S1 and S2 Respiratory: No respiratory distress. Breath sounds normal. No Wheezing. No rales Abdomen: Soft and nontender. No rigidity. No distention. Skin: Skin warm and dry. Normal skin color. Normal skin turgor. C extremities below Extremities: No lower extremity edema. Patient has a 1 cm wound on the left foot plantar aspect, no erythema, no pus drainage, no palpable warmth Neuro: Oriented X 3. No motor deficit. No sensory deficit. Moving all extremities. No slurred speech. CN 2 through 12 grossly intact Psych: calm, cooperative, normal affect Course Course Course Narrative: Fortunately, Dr. Bermudez is here in the emergency room. We were able to compare pictures from patient's past visit to today's visit, the wound actually looks better today. Patient's white blood cell count within normal limits. Dr. Bermudez recommends follow-up with infectious disease and also Dr. Bermudez will be seeing the patient as scheduled. At this time, no more antibiotics recommended. Patient may be discharged home. Patient and her daughter agree with plan. MDM - Extremity (Nontraumatic) Lab Data Result diagrams: 01/27/22 13:40 01/27/22 13:40 Labs: Lab Results 01/27/22 01/27/22 Range/Units 13:40 13:40 WBC 7.8 (4.8-10.8) X10*3/uL RBC 3.73 L (4.20-5.50) X10*6/uL Hgb 12.7 (12.0-16.0) g/dl Hct 38.7 (37.0-47.0) % MCV 103.8 H (80.0-98.0) fL MCH 34.0 H (27.0-33.0) pg MCHC 32.8 (31.0-35.0) g/dl RDW 14.7 (11.0-16.0) % Plt Count 188 D (160-400) X10*3/uL MPV 10.1 (9.4-12.3) fL Immature Gran % (Auto) 1.7 H (0.0-0.4) % Neut % (Auto) 64.6 (45-73) % Lymph % (Auto) 18.9 L (20-40) % [place] % (Auto) 11.6 H (2-11) % Eos % (Auto) 2.9 (0-4) % Baso % (Auto) 0.3 (0-2) % Lymph # (Auto) 1.5 (1.2-4.9) X10*3/uL [place] # (Auto) 0.9 (0.1-1.2) X10*3/uL Eos # (Auto) 0.2 (0.0-0.4) X10*3/uL Baso # (Auto) 0.0 (0.0-0.2) X10*3/uL Abs Immat Gran (auto) 0.13 H (0.00-0.03) X10*3/uL Absolute Neuts (auto) 5.1 (2.0-8.3) x10*3/uL Absolute Nucleated RBC 0.020 H (0.0-0.012) X10*3/uL Nucleated RBC % (auto) 0.3 H (0.0-0.2) /100WBC Sodium 143 (135-145) mmol/L Potassium 3.9 (3.3-5.1) mmol/L Chloride 107 (96-108) mmol/L Carbon Dioxide 22 (22-29) mmol/L Anion Gap 18 (12-20) BUN 19 H (9-16) mg/dL Creatinine 1.23 (0.5-1.4) mg/dL Estim Creat Clear Calc 52.4 Estimated GFR 43 Random Glucose 105 (60-115) mg/dL Calcium 9.0 (8.4-10.2) mg/dL Discharge Plan Discharge Clinical Impression: Chronic foot ulcer Patient Disposition: Home, Self-Care Instructions: Chronic Wounds (ED) Additional Instructions: Please follow-up with your primary care physician tomorrow. You have an appointment scheduled with Dr. Bermudez. Please also follow-up with Infectious Disease. If you have any worsening or new symptoms, please return to the emergency room or call 911 Prescriptions: No Action omeprazole 40 mg capsule,delayed release(DR/EC) 1 cap PO DAILY methotrexate sodium 2.5 mg tablet 10 tab PO MO@1000 prednisone 1 mg tablet 4 tab PO QAM gemfibrozil 600 mg tablet 600 mg PO BID levothyroxine 50 mcg tablet 1 tab PO QAM ergocalciferol (vitamin D2) 1,250 mcg (50,000 unit) capsule 1 cap PO QWEEK albuterol sulfate 90 mcg/actuation HFA aerosol inhaler 2 puff PO Q6H PRN (Reason: wheezing) atenolol 50 mg tablet 1 tab PO BID bupropion HCl 300 mg tablet extended release 24 hr 1 tab PO DAILY bupropion HCl 150 mg tablet extended release 24 hr 1 tab PO DAILY PRN (Reason: Pain, Severe) duloxetine 60 mg capsule,delayed release(DR/EC) 1 cap PO BID pregabalin 150 mg capsule 150 mg PO BID oxycodone 20 mg tablet 20 mg PO Q4H PRN (Reason: Pain) prednisone 20 mg tablet 40 mg PO DAILY Qty: 8 0RF doxycycline hyclate 100 mg tablet 100 mg PO BID 5 Days Qty: 10 0RF Referrals: Gege Jesus MD [Physician] - 1 day Cherri Bermudez MD [Physician] - 02/02/22
[2022-01-27 22:45] VITALS: BP 185/104; PULSE 70; RESP 16; TEMP 35.8; O2SAT 97
== END 2022-01-27 22:48 | disposition home or self-care (01) ==
PROVIDERS: Emergency Provider Emergency Medicine; PCP Nurse Practitioner Adult Health
DX: L97.429 Non-pressure chronic ulcer of left heel and midfoot with unspecified severity (principal)
CPT/HCPCS: 36415; 80048; 85025; 99283

== ENCOUNTER → 2022-02-16 11:24 | Outpatient (BNVA) | payer MEDICARE, SELFPAY | PROVIDERS: PCP Nurse Practitioner Adult Health; Visit Provider Internal Medicine | DX: M86.9 Osteomyelitis, unspecified (principal) | CPT/HCPCS: 99202 ==

== ENCOUNTER 2022-02-27 02:12 | Emergency (ER) | payer MEDICARE, SELFPAY ==
--- NOTE | ~2022-02-27 | US_ITS ---
EXAMINATION: US TRIPLEX OF LOWER EXTREMITIES, BILATERAL CLINICAL INFORMATION: Bilateral lower extremity swelling. Right greater than left leg pain. COMPARISON: None available. TECHNIQUE: Color-flow triplex imaging with spectral analysis and compression Doppler were performed on the lower extremities. FINDINGS: Right Lower Extremity: Respiratory variation, normal compression, and augmented flow are noted throughout the right lower extremity. The visualized common femoral vein, superficial femoral vein, profunda femoral vein, and popliteal vein show no evidence of deep venous thrombosis. Limited evaluation of flow within the midcalf venous segments secondary to patient discomfort and moderate calf edema. There is no White's cyst. Left Lower Extremity: Respiratory variation, normal compression, and augmented flow are noted throughout the right lower extremity. The visualized common femoral vein, superficial femoral vein, profunda femoral vein, and popliteal vein show no evidence of deep venous thrombosis. Limited evaluation of flow within the midcalf venous segments secondary to patient discomfort and moderate calf edema. There is no White's cyst. US/US venous duplex LE BI IMPRESSION: No demonstrated evidence of deep venous thrombosis involving the bilateral lower extremities. Limited evaluation of flow within the midcalf venous segments secondary to patient discomfort and moderate calf edema.
--- NOTE | ~2022-02-27 | XR_ITS ---
EXAMINATION: XR CHEST CLINICAL INFORMATION: Shortness of breath, rule out CHF COMPARISON: 08/23/2021 TECHNIQUE: 2 views of the chest were obtained. FINDINGS: Lung volumes are symmetric. No focal consolidation is seen. No evidence of pneumothorax, significant pleural effusion, or overt pulmonary edema. Cardiac silhouette remains prominent. No acute osseous findings are seen. XR/XR chest 2V IMPRESSION: No overt edema. Cardiac silhouette remains prominent.
[2022-02-27 02:20] VITALS: BP 140/95; BP 181/77; PULSE 79; PULSE 87; RESP 22; TEMP 37.8; O2SAT 100; O2SAT 98; BMI 33.7
[2022-02-27 02:35] LABS: Glucose, Whole Blood 144 mg/dL (60-115)
[2022-02-27 04:52] LABS: Appearance Urine Clear; Color Urine Yellow; Glucose Urine UA Negative (Negative); Leukocyte Esterase Urine Moderate (2+) (Negative); Nitrite Urine Positive (Negative); PH 5.5 (5.0-9.0); Specific Gravity - Urine 1.025 (1.005-1.025); UMIC TRIGGER UACC YES; Urine Blood Small (1+) (Negative); Urine Ketones Trace mg/dL (Negative); Urine Protein 30 (1+) mg/dL (Neg-Trace)
[2022-02-27 05:12] LABS: Bacteria Urine 1+ (None Seen); Hyaline Casts Urine 0-2 /LPF (0-2); Squamous Epithelial Cell Urine 0-2 /HPF (0-2); UACC Culture Trigger YES; WBC Urine >50 /HPF (0-5)
--- NOTE | 2022-02-27 05:40 | ED_ITS ---
HPI - Extremity Injury (Lower) General Chief Complaint: Altered Mental Status Stated Complaint: leg pain/?AMS Time Seen by Provider: 02/27/22 05:31 Source: patient Mode of arrival: EMS Limitations: no limitations History of Present Illness HPI Narrative: 72-year-old female who presents emergency department for evaluation of right lower extremity pain and bilateral lower extremity swelling. The patient was brought in to the emergency department by ambulance. According to paramedics, the patient was [place] complaining that she could not get back home into her apartment due to pain in her right leg. The patient was able to tell me that she is at [facility] she knows that she came here by ambulance for leg pain. She cannot tell me when the pain in her leg started. She states that she is having pain in her right leg from her calf down to her foot, the pain is a constant, throbbing pain which is moderate intensity. She states that she does have swelling in both of her lower extremities and does take Lasix 40 mg daily. She denied fever, chills, chest pain, shortness of breath, nausea, vomiting, abdominal pain. She does appear to be confused sometimes and does not answer questions appropriately. Related Data Home Medications Medication Instructions Recorded Confirmed albuterol sulfate 90 mcg/actuation 2 puff PO Q6H PRN wheezing 08/23/21 08/23/21 aerosol inhaler atenolol 50 mg tablet 1 tab PO BID 08/23/21 08/23/21 bupropion HCl 150 mg 24 hr tablet, 1 tab PO DAILY PRN Pain, Severe 08/23/21 08/23/21 extended release bupropion HCl 300 mg 24 hr tablet, 1 tab PO DAILY 08/23/21 08/23/21 extended release duloxetine 60 mg capsule,delayed 1 cap PO BID 08/23/21 08/23/21 release ergocalciferol (vitamin D2) 1,250 1 cap PO QWEEK 08/23/21 08/23/21 mcg (50,000 unit) capsule gemfibrozil 600 mg tablet 600 mg PO BID 08/23/21 08/23/21 levothyroxine 50 mcg tablet 1 tab PO QAM 08/23/21 08/23/21 methotrexate sodium 2.5 mg tablet 10 tab PO MO@1000 08/23/21 08/23/21 omeprazole 40 mg capsule,delayed 1 cap PO DAILY 08/23/21 08/23/21 release oxycodone 20 mg tablet 20 mg PO Q4H PRN Pain 08/23/21 08/23/21 prednisone 1 mg tablet 4 tab PO QAM 08/23/21 08/23/21 pregabalin 150 mg capsule 150 mg PO BID 08/23/21 08/23/21 amlodipine 5 mg-olmesartan 20 mg 1 tab PO DAILY 02/16/22 tablet losartan 50 mg tablet 50 mg PO DAILY 02/16/22 prednisone 5 mg tablet 5 mg PO DAILY 02/16/22 Previous Rx's Medication Instructions Recorded nitrofurantoin 100 mg PO Q12H 5 days #10 caps 02/27/22 monohydrate/macrocrystals 100 mg capsule (Macrobid) Allergies Allergy/AdvReac Type Severity Reaction Status Date / Time lisinopril [LISINOPRIL] Allergy Severe ANAPHYLAXIS Verified 11/14/20 07:16 Sulfa (Sulfonamide Allergy Intermediate RASH Verified 11/14/20 07:16 Antibiotics) [SULFA (SULFONAMIDE ANTIBIOTICS)] tramadol [TRAMADOL] Allergy Intermediate RASH Verified 11/14/20 07:16 Idpxuro-INO-XiT Reductase Allergy Rash Verified 11/14/20 07:16 Inhibitor [Poddxvw-Hnd-Uxi Reductase Inhibitor] hydrochlorothiazide [HCTZ] AdvReac Unknown ABNORMAL Verified 11/14/20 07:16 LABS? Review of Systems Review of Systems: Yes all other systems are reviewed and are negative [facility] Past Medical History [facility] Narrative: Social history: Patient states she lives alone but she does have family in this area. She states she stop smoking cigarettes 4 years prior and smoked for greater than 10 years. She denies alcohol use. She denies drug use. Medical History Congestive heart failure COPD (chronic obstructive pulmonary disease) Depression Fibromyalgia HTN (hypertension) Hypothyroidism Osteomyelitis Rheumatoid arthritis Rheumatoid lung Surgical History Hx of prior ablation treatment Knee joint replacement status Family History Family History Father No problems noted. Other Heart disease Social History Social History Household Members: None Housing: Apartment Do you presently have visiting nurse or other home services: Yes Alcohol intake: never Patient Tobacco Use Status: Former Tobacco user Advance Directives: No Advance Directives Information Provided: No Physical Exam Vital Signs: Vital Signs: Last Vital Signs Temp 99.3 F 02/27/22 07:05 Pulse 79 02/27/22 07:05 Resp 16 02/27/22 07:05 BP 205/85 H 02/27/22 07:05 Pulse Ox 98 02/27/22 07:05 O2 Del Method 02/27/22 07:05 BMI result Body Mass Index 33.7 Const: General: cooperative and no acute distress Orientation/consciousness: oriented to person and oriented to place HEENT: Head: Yes normal to inspection, Yes normocephalic and Yes atraumatic Ears: external ears normal General nose exam: Normal external nose present Face and sinus: Yes normal facial exam Mouth: Normal oral and palatal mucosa present Throat: Yes posterior oropharynx normal Eyes: General: appearance normal, both eyes and all related structures Pupils: Equal, round and reactive pupils present Neck: Neck: Yes normal visual inspection, Yes no lymphadenopathy, Yes trachea midline and Yes supple Chest: Chest palpation & inspection: normal inspection of the chest and normal palpation of entire chest wall Resp: Effort & Inspection: normal respiratory effort and able to speak in complete sentences Auscultation: clear to auscultation bilaterally Cardio: Rate: regular rate Rhythm: regular rhythm Heart sounds: S1 normal heart sound present, S2 normal heart sound present and no murmurs GI: Inspection: Yes normal to inspection Palpation (GI): Soft to palpation, nontender and no guarding Auscultation: normal bowel sounds : General: Yes no CVA tenderness Back/Spine/Pelvis: Back: no CVA tenderness Skin: Other: Bilateral erythema to the lower extremities, not warm to the touch Neuro: General: oriented to person and oriented to place Cranial nerves: Yes CN's II-XII intact bilaterally and Yes Equal, round and reactive pupils present Cognition (Neuro): normal cognition Motor exam (neuro): 5/5 motor strength present throughout Extrem: Other: 1 to 2+ pitting edema, bilaterally symmetric, left leg appears to be larger than right but she does have a total knee replacement on the left, there is erythema from the calves down to the feet which is not warm to the touch, appears to be bilaterally symmetric Psych: Appearance: grossly normal Speech and movement: Normal speech and movement present Affect: normal affect Attitude: cooperative Course Course Course Narrative: 72-year-old female who presents emergency department for evaluation of right lo wer extremity pain and bilateral lower extremity edema. The patient was [place] and told police that she was unable to get into her apartment because of her right leg pain. The patient is oriented to person and place but does have some memory deficits but answers most questions appropriately. Vital signs revealed an elevated blood pressure of 188/77 with an elevated respiratory of 22. Patient's temperature was 100.0 degrees F. patient does have lower extremity edema which appears to be chronic, there are erythematous skin changes which is probably consistent with a chronic dermatitis. I did order laboratory evaluation on the patient to include CBC, CMP, BNP, PT/INR, PTT, troponin, urinalysis. I also ordered a chest x-ray two view, bilateral duplex ultrasounds to rule out DVT and an EKG. 0829: Laboratory evaluation: Low H&H 11 and 32, urinalysis/microscopic: great er than 50 WBCs, 1+ bacteria. Radiology evaluation: Chest x-ray no acute disease. Duplex ultrasound of both lower extremities no acute DVT. I did speak with the patient's daughter Susy Renee. States that the patient has had episodes of confusion which may be multifactorial but may be related to the patient's oxycodone use. Patient does have chronic pain secondary to her rheumatoid arthritis. At this time I do not think that there is any acute reason keep the patient in the hospital. I will treat the patient's urinary tract infection with Macrobid q.12 hours x5 days. She was given her 1st dose here in the emergency department. Patient's daughter will come to the emergency department pick her up. Medications Administered Discontinued Medications Generic Name Dose Route Start Last Admin Trade Name Freq PRN Reason Stop Dose Admin Oxycodone HCl 20 mg 02/27/22 08:01 02/27/22 08:16 Oxycodone Hcl Immed Release 5 Mg Tablet PO 02/27/22 08:02 20 mg ONCE ONE Administration MDM - Extremity Injury (Lower) Lab Data Result diagrams: 02/27/22 06:29 02/27/22 06:29 Labs: Lab Results 02/27/22 02/27/22 02/27/22 Range/Units 02:30 04:43 06:29 WBC 5.9 (4.8-10.8) X10*3/uL RBC 3.46 L (4.20-5.50) X10*6/uL Hgb 11.2 L (12.0-16.0) g/dl Hct 32.8 L (37.0-47.0) % MCV 94.8 (80.0-98.0) fL MCH 32.4 (27.0-33.0) pg MCHC 34.1 (31.0-35.0) g/dl RDW 14.3 (11.0-16.0) % Plt Count 173 (160-400) X10*3/uL MPV 10.4 (9.4-12.3) fL Immature Gran % (Auto) 0.3 (0.0-0.4) % Neut % (Auto) 60.9 (45-73) % Lymph % (Auto) 32.1 (20-40) % [place] % (Auto) 3.7 (2-11) % Eos % (Auto) 2.7 (0-4) % Baso % (Auto) 0.3 (0-2) % Lymph # (Auto) 1.9 (1.2-4.9) X10*3/uL [place] # (Auto) 0.2 (0.1-1.2) X10*3/uL Eos # (Auto) 0.2 (0.0-0.4) X10*3/uL Baso # (Auto) 0.0 (0.0-0.2) X10*3/uL Abs Immat Gran (auto) 0.02 (0.00-0.03) X10*3/uL Absolute Neuts (auto) 3.6 (2.0-8.3) x10*3/uL Absolute Nucleated RBC 0.000 (0.0-0.012) X10*3/uL Nucleated RBC % (auto) 0.0 (0.0-0.2) /100WBC PT (10.0-13.1) SEC INR (0.9-1.1) APTT (26.0-36.4) SEC Sodium (135-145) mmol/L Potassium (3.3-5.1) mmol/L Chloride (96-108) mmol/L Carbon Dioxide (22-29) mmol/L Anion Gap (12-20) BUN (9-16) mg/dL Creatinine (0.5-1.4) mg/dL Estim Creat Clear Calc Estimated GFR POC Glucose 144 H (60-115) mg/dL Random Glucose (60-115) mg/dL Calcium (8.4-10.2) mg/dL Total Bilirubin (0.0-1.0) mg/dL AST (5-31) U/L ALT (0-31) U/L Alkaline Phosphatase (39-117) U/L Troponin I High Sens (<3.5-17.0) ng/L B-Natriuretic Peptide (<100) pg/mL Total Protein (6.5-8.0) g/dL Albumin (3.5-5.0) g/dL Urine Color Yellow Urine Appearance Clear Urine pH 5.5 (5.0-9.0) Ur Specific [place] 1.025 (1.005-1.025) Urine Protein 30 (1+) H (Neg-Trace) mg/dL Urine Glucose (UA) Negative (Negative) mg/dL Urine Ketones Trace (Negative) mg/dL Urine Blood Small (1+) H (Negative) Urine Nitrite Positive H (Negative) Ur Leukocyte Esterase Moderate (2+) H (Negative) Urine RBC 3-5 H (0-2) /HPF Urine WBC >50 H (0-5) /HPF Ur Squamous Epith Cells 0-2 (0-2) /HPF Urine Bacteria 1+ (None Seen) Hyaline Casts 0-2 (0-2) /LPF 02/27/22 02/27/22 02/27/22 Range/Units 06:29 06:29 06:29 WBC (4.8-10.8) X10*3/uL RBC (4.20-5.50) X10*6/uL Hgb (12.0-16.0) g/dl Hct (37.0-47.0) % MCV (80.0-98.0) fL MCH (27.0-33.0) pg MCHC (31.0-35.0) g/dl RDW (11.0-16.0) % Plt Count (160-400) X10*3/uL MPV (9.4-12.3) fL Immature Gran % (Auto) (0.0-0.4) % Neut % (Auto) (45-73) % Lymph % (Auto) (20-40) % [place] % (Auto) (2-11) % Eos % (Auto) (0-4) % Baso % (Auto) (0-2) % Lymph # (Auto) (1.2-4.9) X10*3/uL [place] # (Auto) (0.1-1.2) X10*3/uL Eos # (Auto) (0.0-0.4) X10*3/uL Baso # (Auto) (0.0-0.2) X10*3/uL Abs Immat Gran (auto) (0.00-0.03) X10*3/uL Absolute Neuts (auto) (2.0-8.3) x10*3/uL Absolute Nucleated RBC (0.0-0.012) X10*3/uL Nucleated RBC % (auto) (0.0-0.2) /100WBC PT 11.6 (10.0-13.1) SEC INR 1.0 (0.9-1.1) APTT 27.6 (26.0-36.4) SEC Sodium 136 (135-145) mmol/L Potassium 3.7 (3.3-5.1) mmol/L Chloride 109 H (96-108) mmol/L Carbon Dioxide 23 (22-29) mmol/L Anion Gap 8 L (12-20) BUN 25 H (9-16) mg/dL Creatinine 0.94 (0.5-1.4) mg/dL Estim Creat Clear Calc 66.8 Estimated GFR 59 POC Glucose (60-115) mg/dL Random Glucose 78 (60-115) mg/dL Calcium 9.5 (8.4-10.2) mg/dL Total Bilirubin 0.6 (0.0-1.0) mg/dL AST 16 (5-31) U/L ALT 14 (0-31) U/L Alkaline Phosphatase 89 (39-117) U/L Troponin I High Sens (<3.5-17.0) ng/L B-Natriuretic Peptide 196 H (<100) pg/mL Total Protein 7.0 (6.5-8.0) g/dL Albumin 4.0 (3.5-5.0) g/dL Urine Color Urine Appearance Urine pH (5.0-9.0) Ur Specific [place] (1.005-1.025) Urine Protein (Neg-Trace) mg/dL Urine Glucose (UA) (Negative) mg/dL Urine Ketones (Negative) mg/dL Urine Blood (Negative) Urine Nitrite (Negative) Ur Leukocyte Esterase (Negative) Urine RBC (0-2) /HPF Urine WBC (0-5) /HPF Ur Squamous Epith Cells (0-2) /HPF Urine Bacteria (None Seen) Hyaline Casts (0-2) /LPF 02/27/22 Range/Units 06:29 WBC (4.8-10.8) X10*3/uL RBC (4.20-5.50) X10*6/uL Hgb (12.0-16.0) g/dl Hct (37.0-47.0) % MCV (80.0-98.0) fL MCH (27.0-33.0) pg MCHC (31.0-35.0) g/dl RDW (11.0-16.0) % Plt Count (160-400) X10*3/uL MPV (9.4-12.3) fL Immature Gran % (Auto) (0.0-0.4) % Neut % (Auto) (45-73) % Lymph % (Auto) (20-40) % [place] % (Auto) (2-11) % Eos % (Auto) (0-4) % Baso % (Auto) (0-2) % Lymph # (Auto) (1.2-4.9) X10*3/uL [place] # (Auto) (0.1-1.2) X10*3/uL Eos # (Auto) (0.0-0.4) X10*3/uL Baso # (Auto) (0.0-0.2) X10*3/uL Abs Immat Gran (auto) (0.00-0.03) X10*3/uL Absolute Neuts (auto) (2.0-8.3) x10*3/uL Absolute Nucleated RBC (0.0-0.012) X10*3/uL Nucleated RBC % (auto) (0.0-0.2) /100WBC PT (10.0-13.1) SEC INR (0.9-1.1) APTT (26.0-36.4) SEC Sodium (135-145) mmol/L Potassium (3.3-5.1) mmol/L Chloride (96-108) mmol/L Carbon Dioxide (22-29) mmol/L Anion Gap (12-20) BUN (9-16) mg/dL Creatinine (0.5-1.4) mg/dL Estim Creat Clear Calc Estimated GFR POC Glucose (60-115) mg/dL Random Glucose (60-115) mg/dL Calcium (8.4-10.2) mg/dL Total Bilirubin (0.0-1.0) mg/dL AST (5-31) U/L ALT (0-31) U/L Alkaline Phosphatase (39-117) U/L Troponin I High Sens 10.4 (<3.5-17.0) ng/L B-Natriuretic Peptide (<100) pg/mL Total Protein (6.5-8.0) g/dL Albumin (3.5-5.0) g/dL Urine Color Urine Appearance Urine pH (5.0-9.0) Ur Specific [place] (1.005-1.025) Urine Protein (Neg-Trace) mg/dL Urine Glucose (UA) (Negative) mg/dL Urine Ketones (Negative) mg/dL Urine Blood (Negative) Urine Nitrite (Negative) Ur Leukocyte Esterase (Negative) Urine RBC (0-2) /HPF Urine WBC (0-5) /HPF Ur Squamous Epith Cells (0-2) /HPF Urine Bacteria (None Seen) Hyaline Casts (0-2) /LPF Discharge Plan Discharge Clinical Impression: Bilateral edema of lower extremity, Acute pain of right lower extremity Urinary tract infection Qualifiers: Urinary tract infection type: acute cystitis Patient Disposition: Home, Self-Care Instructions: Urinary Tract Infection in Women (ED), Leg Edema (ED) Additional Instructions: Your blood work was unremarkable. Your chest x-ray was normal. You had duplex ultrasounds studies of your lower extremities and there was no blood clots noted at this time. Your urine is positive for an infection. Take Macrobid 1 pill every 12 hours for 5 days. Continue taking medications as prescribed by your doctor. Follow-up with your doctor in 2 days. Please return to the emergency department if your symptoms get worse or if you develop any symptoms that are concerning to you. Prescriptions: New nitrofurantoin monohyd/m-cryst [Macrobid] 100 mg capsule 100 mg PO Q12H 5 Days Qty: 10 0RF Rx Instructions: must administer with a meal/food No Action omeprazole 40 mg capsule,delayed release(DR/EC) 1 cap PO DAILY methotrexate sodium 2.5 mg tablet 10 tab PO MO@1000 prednisone 1 mg tablet 4 tab PO QAM gemfibrozil 600 mg tablet 600 mg PO BID levothyroxine 50 mcg tablet 1 tab PO QAM ergocalciferol (vitamin D2) 1,250 mcg (50,000 unit) capsule 1 cap PO QWEEK albuterol sulfate 90 mcg/actuation HFA aerosol inhaler 2 puff PO Q6H PRN (Reason: wheezing) atenolol 50 mg tablet 1 tab PO BID bupropion HCl 300 mg tablet extended release 24 hr 1 tab PO DAILY bupropion HCl 150 mg tablet extended release 24 hr 1 tab PO DAILY PRN (Reason: Pain, Severe) duloxetine 60 mg capsule,delayed release(DR/EC) 1 cap PO BID pregabalin 150 mg capsule 150 mg PO BID oxycodone 20 mg tablet 20 mg PO Q4H PRN (Reason: Pain) amlodipine-olmesartan 5-20 mg tablet 1 tab PO DAILY losartan 50 mg tablet 50 mg PO DAILY prednisone 5 mg tablet 5 mg PO DAILY
--- NOTE | 2022-02-27 05:41 | ECG_ITS ---
Test Reason : ALTERED MENTAL Blood Pressure : / mmHG Vent. Rate : 090 BPM Atrial Rate : 090 BPM P-R Int : 120 ms QRS Dur : 082 ms QT Int : 362 ms P-R-T Axes : 032 012 040 degrees QTc Int : 442 ms Normal sinus rhythm Nonspecific ST and T wave abnormality Abnormal ECG When compared with ECG of 23-AUG-2021 06:10, Nonspecific T wave abnormality now evident in Anterior leads Referred By: Otoniel Kirk Electronically Signed By:Fredi Mckinney
[2022-02-27 06:34] LABS: MANUAL DIFF FLAG NO
[2022-02-27 06:35] LABS: Basophils Percent Auto 0.3 % (0-2); Eosinophils Absolute Auto 0.2 X10*3/uL (0.0-0.4); Eosinophils Percent Auto 2.7 % (0-4); Hematocrit 32.8 % (37.0-47.0); Hemoglobin 11.2 g/dl (12.0-16.0); Imm Gran Abs Auto 0.02 X10*3/uL (0.00-0.03); Imm Gran Pct Auto 0.3 % (0.0-0.4); Lymphocytes Absolute Auto 1.9 X10*3/uL (1.2-4.9); Lymphocytes Percent Auto 32.1 % (20-40); Mean Corpuscular HGB Conc 34.1 g/dl (31.0-35.0); Mean Corpuscular Hemoglobin 32.4 pg (27.0-33.0); Mean Corpuscular Volume 94.8 fL (80.0-98.0); Mean Platelet Volume 10.4 fL (9.4-12.3); Monocytes Absolute Auto 0.2 X10*3/uL (0.1-1.2); Monocytes Percent Auto 3.7 % (2-11); Neutrophils Absolute Auto 3.6 x10*3/uL (2.0-8.3); Neutrophils Percent Auto 60.9 % (45-73); Platelet Count 173 X10*3/uL (160-400); Red Blood Count 3.46 X10*6/uL (4.20-5.50); Red Cell Distribution Width 14.3 % (11.0-16.0); White Blood Count 5.9 X10*3/uL (4.8-10.8)
[2022-02-27 06:44] VITALS: BP 210/74; PULSE 87; RESP 16; TEMP 37; O2SAT 98
--- NOTE | 2022-02-27 06:46 | PC.NURSE ---
This RN took over care of pt at 0630. BP taken at this time 210/[address] Donaldson notified. Per md PO pain med order will be placed
[2022-02-27 06:49] LABS: Prothrombin Time 11.6 SEC (10.0-13.1)
[2022-02-27 06:52] LABS: Partial Thromboplastin Time 27.6 SEC (26.0-36.4)
[2022-02-27 06:54] LABS: B Type Natriuretic Peptide 196 pg/mL (<100); Troponin-I High Sensitivity 10.4 ng/L (<3.5-17.0)
[2022-02-27 07:00] LABS: Alanine Aminotransferase 14 U/L (0-31); Alkaline Phosphatase 89 U/L (39-117); Anion Gap 8 (12-20); Aspartate Amino Transferase 16 U/L (5-31); Bilirubin Total 0.6 mg/dL (0.0-1.0); Blood Urea Nitrogen 25 mg/dL (9-16); Calcium 9.5 mg/dL (8.4-10.2); Carbon Dioxide 23 mmol/L (22-29); Chloride 109 mmol/L (96-108); Creatinine Clr Calc Pharmacy 66.8; Estimated Glomerular Filt Rate 59; Glucose Random 78 mg/dL (60-115); Potassium 3.7 mmol/L (3.3-5.1); Sodium 136 mmol/L (135-145)
[2022-02-27 07:05] VITALS: BP 205/85; PULSE 79; RESP 16; TEMP 37.4; O2SAT 98
--- NOTE | 2022-02-27 07:07 | PC.NURSE ---
assumed care of patient. patient Bp elevated. c/o bilateral leg pain. patient states she is prescribed HTN meds but can not remember the last time she took them. will speak with MD regarding plan.
[2022-02-27] MEDS: oxyCODONE HCl Immed Release 5 MG TABLET 20 MG PO (08:16)
[2022-02-27] MEDS: Nitrofurantoin Monohyd/M-Cryst 100 MG CAPSULE PO (09:03)
[2022-02-27 09:18] LABS: Influenza A PCR NEGATIVE (Negative); Influenza B PCR NEGATIVE (Negative); Resp Syncy Virus RNA Qual PCR NEGATIVE (Negative); SARS COV2 PCR INHOUSE NEGATIVE (Negative)
[2022-02-27 09:41] VITALS: BP 187/83; PULSE 85; RESP 16; O2SAT 96
== END 2022-02-27 09:46 | disposition home or self-care (01) ==
PROVIDERS: Emergency Provider Emergency Medicine Emergency Medical Services
DX: R60.0 Localized edema (principal); M79.604 Pain in right leg; R06.02 Shortness of breath; R41.82 Altered mental status, unspecified; N30.90 Cystitis, unspecified without hematuria; Z20.822 Contact with and (suspected) exposure to COVID-19; Z87.891 Personal history of nicotine dependence; Z79.899 Other long term (current) drug therapy
CPT/HCPCS: 0241U; 36415; 71046; 80053; 81001; 82947; 83880; 84484; 85025; 85610; 85730; 87086; 87088; 87186; 93005; 93970; 99284

== ENCOUNTER 2022-06-02 08:03 | Outpatient (RCR) | payer MEDICARE, MEDICAID, SELFPAY ==
--- NOTE | ~2022-06-02 | XR_ITS ---
EXAMINATION: XR FOOT, LEFT CLINICAL INFORMATION: Left foot wound COMPARISON: 01/25/2022 TECHNIQUE: AP, lateral, and oblique views of the left foot. FINDINGS: Focal osteopenia of the fifth humeral head may reflect osteomyelitis. No definite fracture. Calcaneal enthesopathy. XR/XR foot LT 2V IMPRESSION: Focal osteopenia of the fifth humeral head may reflect osteomyelitis. Further evaluation with MR may be considered if there is clinical concern.
== END 2022-07-11 12:58 | disposition home or self-care (01) ==
LOC: HO.WCC 08:03
PROVIDERS: Visit Provider Surgery
DX: Z09 Encounter for follow-up examination after completed treatment for conditions other than malignant neoplasm (principal); Z87.2 Personal history of diseases of the skin and subcutaneous tissue
CPT/HCPCS: 11042; 73620; 97597; 99212; 99213

== ENCOUNTER 2022-06-14 10:50 | Outpatient (REF) | payer MEDICARE, MEDICAID, SELFPAY ==
--- NOTE | ~2022-06-14 | MR_ITS ---
EXAMINATION: MR FOOT WITHOUT AND WITH CONTRAST, LEFT CLINICAL INFORMATION: Nonhealing wound. Evaluate for osteomyelitis. COMPARISON: Multiple priors, most recent left foot radiographs dated 06/02/2022. TECHNIQUE: Multisequence MR imaging of the left foot was performed before and after the IV administration of 10 mL Gadavist contrast on a high-field strength scanner. FINDINGS: Soft tissue ulceration with skin thickening and subcutaneous edema along the plantar aspect of the distal 5th metatarsal. Associated postcontrast enhancement, consistent with acute cellulitis. No organized fluid collection or abscess formation. No marrow edema, enhancement, periosteal reaction, or cortical erosion within the adjacent 5th metatarsal to suggest acute osteomyelitis. Marrow edema and associated cystic change within the proximal aspect of the 4th metatarsal extending into the diaphysis. Findings may be degenerative related to the 4th tarsometatarsal joint or indicate a stress reaction versus healing fracture. Additional articular cartilage loss with subchondral cystic change at the 2nd and 3rd tarsometatarsal joints. No concerning lytic or blastic osseous lesion. Edema and atrophy throughout the intrinsic musculature of the foot, which can be seen in diabetic patients. The visualized flexor and extensor tendons are intact. MR/MR foot LT wo/w con IMPRESSION: 1. Soft tissue ulceration and cellulitis along the plantar aspect of the distal 5th metatarsal. No abscess formation. No evidence of acute osteomyelitis. 2. Marrow edema and cystic change within the proximal aspect of the 4th metatarsal extending into the diaphysis. Findings may be degenerative related to the 4th tarsometatarsal joint or indicate a stress reaction versus healing fracture. 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 3. Edema and atrophy throughout the intrinsic musculature of the foot, which can be seen in diabetic patients.
== END 2022-06-14 10:51 | disposition home or self-care (01) ==
LOC: HO.MRI 10:50
PROVIDERS: PCP Nurse Practitioner Adult Health; Visit Provider Surgery
DX: L97.522 Non-pressure chronic ulcer of other part of left foot with fat layer exposed (principal); L02.612 Cutaneous abscess of left foot
CPT/HCPCS: 73720; A9585

== ENCOUNTER 2022-08-17 08:40 | Outpatient (RCR) | payer MEDICARE, MEDICAID, SELFPAY | END 2022-09-02 14:12 | disposition home or self-care (01) | LOC: HO.WCC 08:40 | PROVIDERS: PCP Nurse Practitioner Adult Health; Visit Provider Surgery | DX: L97.522 Non-pressure chronic ulcer of other part of left foot with fat layer exposed (principal); G90.09 Other idiopathic peripheral autonomic neuropathy | CPT/HCPCS: 11042; 99212 ==

== ENCOUNTER 2023-01-06 11:46 | Inpatient (IN) | payer MEDICARE, MEDICAID, SELFPAY ==
[2023-01-06] VITALS (7 sets, daily range): BP systolic 150–184; BP diastolic 67–81; PULSE 78–91; RESP 16–20; TEMP 37.1–37.2; O2SAT 95–98; BMI 31.0
--- NOTE | ~2023-01-06 | XR_ITS ---
EXAMINATION: XR CHEST CLINICAL INFORMATION: Cough COMPARISON: 02/27/2022 report only provided for comparison. Prior images are not available at this time for direct comparison. TECHNIQUE: Frontal view of the chest was obtained. FINDINGS: The lung volumes are low. There is no gross pneumothorax. Evaluation of the lungs and cardiomediastinal silhouette is limited due to patient rotation. Prominent interstitial markings of indeterminate age may represent mild edema, inflammatory/infectious process and/or bronchial wall thickening. Hazy opacity at the left lung base may represent atelectasis and/or pneumonia with possible small left pleural effusion. XR/XR chest 1V IMPRESSION: Prominent interstitial markings of indeterminate age may represent mild edema, inflammatory/infectious process and/or bronchial wall thickening. Hazy opacity at the left lung base may represent atelectasis and/or pneumonia with possible small left pleural effusion.
--- NOTE | ~2023-01-06 | CT_ITS ---
EXAMINATION: CT HEAD WITHOUT CONTRAST CLINICAL INFORMATION: Headache. COMPARISON: None available. TECHNIQUE: Contiguous axial imaging was performed from the skull base to vertex without intravenous administration of contrast. This CT examination was performed using dose optimization techniques as appropriate, variously including the following: *Automated exposure control *Adjustment of mA and/or kV according to patient size (this includes techniques or standardized protocols for targeted exams where dose is matched to indication/reason for exam; i.e. extremities or head) *Use of iterative reconstruction technique DLP: 1203 mGy-cm FINDINGS: There is mild cerebral volume loss with prominence of the lateral and the third ventricles. The cortical sulci are widened appropriately. The fourth ventricle and basal cisterns are normally outlined. There is mild bilateral periventricular and central white matter diminished attenuation. There is no acute territorial defect, hemorrhage or midline shift. The extra-axial spaces are unremarkable. Calvarium: Intact Maxillofacial sinuses and mastoids: There is ethmoid and maxillary sinus mucosal thickening. The remaining maxillofacial sinuses and mastoids are clear. CT/CT head/brain wo IV con IMPRESSION: No acute intracranial abnormality.
--- NOTE | 2023-01-06 13:01 | ECG_ITS ---
Test Reason : HEADACHE Blood Pressure : / mmHG Vent. Rate : 078 BPM Atrial Rate : 078 BPM P-R Int : 138 ms QRS Dur : 092 ms QT Int : 390 ms P-R-T Axes : 061 019 052 degrees QTc Int : 444 ms Normal sinus rhythm Possible Left atrial enlargement Nonspecific ST abnormality Abnormal ECG When compared with ECG of 27-FEB-2022 06:19, No significant change was found Referred By: Wesley Concepcion Electronically Signed By:EDWINA THOMAS MD
--- NOTE | 2023-01-06 13:15 | ED.GENADULT ---
HPI - General Adult General Chief complaint: General Medical Stated complaint: NAUSEA VOMITING SAMANO Time Seen by Provider: 01/06/23 13:14 Source: patient and family Mode of arrival: ambulatory Limitations: no limitations History of Present Illness HPI narrative: Headaches since yesterday, not taking her pain medication because she was throwing up. Patient with a frontal headache that started yesterday with nausea and vomiting. Patient with chronic pain. Despite multiple complaints patient is here for her headache. No weakness to one side of her body Onset (ago): day(s) Related Data Home Medications Medication Instructions Recorded Confirmed albuterol sulfate 90 mcg/actuation 2 puff PO Q6H PRN wheezing 08/23/21 08/23/21 aerosol inhaler atenolol 50 mg tablet 1 tab PO BID 08/23/21 08/23/21 bupropion HCl 150 mg 24 hr tablet, 1 tab PO DAILY PRN Pain, Severe 08/23/21 08/23/21 extended release bupropion HCl 300 mg 24 hr tablet, 1 tab PO DAILY 08/23/21 08/23/21 extended release duloxetine 60 mg capsule,delayed 1 cap PO BID 08/23/21 08/23/21 release ergocalciferol (vitamin D2) 1,250 1 cap PO QWEEK 08/23/21 08/23/21 mcg (50,000 unit) capsule gemfibrozil 600 mg tablet 600 mg PO BID 08/23/21 08/23/21 levothyroxine 50 mcg tablet 1 tab PO QAM 08/23/21 08/23/21 methotrexate sodium 2.5 mg tablet 10 tab PO MO@1000 08/23/21 08/23/21 omeprazole 40 mg capsule,delayed 1 cap PO DAILY 08/23/21 08/23/21 release oxycodone 20 mg tablet 20 mg PO Q4H PRN Pain 08/23/21 08/23/21 prednisone 1 mg tablet 4 tab PO QAM 08/23/21 08/23/21 pregabalin 150 mg capsule 150 mg PO BID 08/23/21 08/23/21 amlodipine 5 mg-olmesartan 20 mg 1 tab PO DAILY 02/16/22 tablet losartan 50 mg tablet 50 mg PO DAILY 02/16/22 prednisone 5 mg tablet 5 mg PO DAILY 02/16/22 Previous Rx's Medication Instructions Recorded nitrofurantoin 100 mg PO Q12H 5 days #10 caps 02/27/22 monohydrate/macrocrystals 100 mg capsule (Macrobid) cephalexin 500 mg capsule 500 mg PO Q6H 7 days #28 caps 01/06/23 fluticasone propionate 50 1 spray intranasal BID #16 grams 01/06/23 mcg/actuation nasal spray,suspension (Flonase Allergy Relief) Allergies Allergy/AdvReac Type Severity Reaction Status Date / Time lisinopril [LISINOPRIL] Allergy Severe ANAPHYLAXIS Verified 11/14/20 07:16 Sulfa (Sulfonamide Allergy Intermediate RASH Verified 11/14/20 07:16 Antibiotics) [SULFA (SULFONAMIDE ANTIBIOTICS)] tramadol [TRAMADOL] Allergy Intermediate RASH Verified 11/14/20 07:16 Abcljvx-FPG-WjD Reductase Allergy Rash Verified 11/14/20 07:16 Inhibitor [Afyvlxh-Goh-Ear Reductase Inhibitor] hydrochlorothiazide [HCTZ] AdvReac Unknown ABNORMAL Verified 11/14/20 07:16 LABS? Review of Systems Review of Systems: Yes all other systems are reviewed and are negative Genitourinary: Comments: back pain, wrist pain Neurologic: Denies Sensory deficit (Neuro) [facility] Past Medical History Medical History Osteomyelitis COPD (chronic obstructive pulmonary disease) Rheumatoid lung Hypothyroidism Congestive heart failure Fibromyalgia HTN (hypertension) Depression Rheumatoid arthritis Surgical History Hx of prior ablation treatment Knee joint replacement status Family History Family History Father No problems noted. Other Heart disease Social History Social History Household Members: None Housing: Apartment Do you presently have visiting nurse or other home services: Yes Alcohol intake: never Patient Tobacco Use Status: Former Tobacco user Smoked in Last 30 Days: No Use of substances other than those prescribed or required for medical reasons: No Advance Directives: No Advance Directives Information Provided: No Physical Exam ED Vital Signs: Vital Signs - 24 hr 01/06/23 12:03 01/06/23 12:58 01/06/23 13:51 Temperature 99 F Pulse Rate 89 80 78 Respiratory Rate 19 20 18 Blood Pressure 175/67 H 160/70 H 184/80 H Pulse Oximetry 96 97 97 Oxygen Delivery Method Room Air Room Air Room Air 01/06/23 15:34 Temperature Pulse Rate 84 Respiratory Rate 18 Blood Pressure 183/81 H Pulse Oximetry 97 Oxygen Delivery Method Room Air BMI result Body Mass Index 31.0 Const Other: female looking older than stated age complaining of pain everywhere Orientation/consciousness: oriented to person Limitations: no limitations HENMT Head: Yes normal to inspection Ears: external ears normal General nose exam: Normal external nose present Mouth: Normal oral and palatal mucosa present and oropharynx normal Throat: Yes posterior oropharynx normal Eyes General: appearance normal, both eyes and all related structures Neck Neck: Yes normal visual inspection Chest Chest palpation & inspection: normal inspection of the chest Resp Auscultation: clear to auscultation bilaterally Cardio Jugular venous distension: no JVD Rate: regular rate Rhythm: regular rhythm Heart sounds: S1 normal heart sound present and S2 normal heart sound present GI Inspection: Yes normal to inspection Palpation (GI): Soft to palpation, nontender and No hepatosplenomegaly present Auscultation: normal bowel sounds General: Yes no CVA tenderness Back/Spine/Pelvis Back: no CVA tenderness Skin General skin exam: no rashes or lesions noted Neuro General: oriented to person Cranial nerves: Yes CN's II-XII intact bilaterally Motor exam (neuro): 5/5 motor strength present throughout Sensory Exam: No Sensory deficit (Neuro) Extrem General: Yes normal to inspection Psych Appearance: grossly normal Course Reevaluation(s) Reevaluation #1: CT show some fluid in ethmoid sinuses, UA consistent with UTI will dc home Time: 16:39 Medications Administered Discontinued Medications Generic Name Dose Route Start Last Admin Trade Name Denizq PRN Reason Stop Dose Admin Diphenhydramine HCl 25 mg 01/06/23 13:20 01/06/23 13:38 Diphenhydramine Hcl 50 Mg/Ml Vial IVPUSH 01/06/23 13:21 25 mg ONCE ONE Administration Haloperidol Lactate 5 mg 01/06/23 13:22 01/06/23 13:38 Haloperidol Lactate 5 Mg/Ml Vial IVPUSH 01/06/23 13:23 5 mg ONCE ONE Administration Morphine Sulfate 5 mg 01/06/23 13:20 01/06/23 13:41 Morphine Sulfate 10 Mg/Ml Cartridge IVPUSH 01/06/23 13:21 5 mg ONCE ONE Administration Protocol Medical Decision Making Differential Diagnosis Differential Diagnoses: The differential diagnosis associated with the presentation includes (headache, migraine, sinusitis, brain turmor, UTI were all considered) Admission/Observation Consideration of admission/observation: Escalation of care including admission/observation considered (upon arrival patient was considered for admission) Lab Data MDM Lab Attestation statement: I reviewed the patient's lab results. (labs significant for UTI) 01/06/23 13:20 01/06/23 13:20 Labs: Lab Results 01/06/23 01/06/23 Range/Units 13:20 15:54 WBC 5.1 (4.8-10.8) X10*3/uL RBC 3.49 L (4.20-5.50) X10*6/uL Hgb 11.2 L (12.0-16.0) g/dl Hct 32.0 L (37.0-47.0) % MCV 91.7 (80.0-98.0) fL MCH 32.1 (27.0-33.0) pg MCHC 35.0 (31.0-35.0) g/dl RDW 14.7 (11.0-16.0) % Plt Count 148 L (160-400) X10*3/uL MPV 10.5 (9.4-12.3) fL Immature Gran % (Auto) 0.4 (0.0-0.4) % Neut % (Auto) 81.6 H (45-73) % Lymph % (Auto) 10.0 L (20-40) % [place] % (Auto) 7.8 (2-11) % Eos % (Auto) 0.0 (0-4) % Baso % (Auto) 0.2 (0-2) % Lymph # (Auto) 0.5 L (1.2-4.9) X10*3/uL [place] # (Auto) 0.4 (0.1-1.2) X10*3/uL Eos # (Auto) 0.0 (0.0-0.4) X10*3/uL Baso # (Auto) 0.0 (0.0-0.2) X10*3/uL Abs Immat Gran (auto) 0.02 (0.00-0.03) X10*3/uL Absolute Neuts (auto) 4.2 (2.0-8.3) x10*3/uL Absolute Nucleated RBC 0.000 (0.0-0.012) X10*3/uL Nucleated RBC % (auto) 0.0 (0.0-0.2) /100WBC Sodium 137 (135-145) mmol/L Potassium 3.4 (3.3-5.1) mmol/L Chloride 101 (96-108) mmol/L Carbon Dioxide 25 (22-29) mmol/L Anion Gap 14 (12-20) BUN 13 (9-16) mg/dL Creatinine 0.85 (0.5-1.4) mg/dL Estim Creat Clear Calc 70.9 Estimated GFR > 60 Random Glucose 103 (60-115) mg/dL Calcium 9.6 (8.4-10.2) mg/dL Total Bilirubin 0.3 (0.0-1.0) mg/dL AST 23 (5-31) U/L ALT 19 (0-31) U/L Alkaline Phosphatase 71 (39-117) U/L Total Protein 7.0 (6.5-8.0) g/dL Albumin 3.7 (3.5-5.0) g/dL Lipase 5 L (8-78) U/L Urine Color Yellow Urine Appearance Cloudy Urine pH 5.5 (5.0-9.0) Ur Specific [place] 1.020 (1.005-1.025) Urine Protein Trace (Neg-Trace) mg/dL Urine Glucose (UA) Negative (Negative) mg/dL Urine Ketones Trace (Negative) mg/dL Urine Blood Small (1+) H (Negative) Urine Nitrite Positive H (Negative) Ur Leukocyte Esterase Moderate (2+) H (Negative) Urine RBC 3-5 H (0-2) /HPF Urine WBC >50 H (0-5) /HPF Ur Squamous Epith Cells 0-2 (0-2) /HPF Urine Bacteria 4+ (None Seen) Hyaline Casts 0-2 (0-2) /LPF Discharge Plan Discharge Clinical Impression: Sinusitis, Urinary tract infection Patient Disposition: Home, Self-Care Instructions: Urinary Tract Infection in Women (DC), Sinusitis (ED) Prescriptions: New fluticasone propionate [Flonase Allergy Relief] 50 mcg/actuation spray,suspension 1 spray intranasal BID Qty: 16 0RF Rx Instructions: administer into each nostril cephalexin 500 mg capsule 500 mg PO Q6H 7 Days Qty: 28 0RF No Action omeprazole 40 mg capsule,delayed release(DR/EC) 1 cap PO DAILY methotrexate sodium 2.5 mg tablet 10 tab PO MO@1000 prednisone 1 mg tablet 4 tab PO QAM gemfibrozil 600 mg tablet 600 mg PO BID levothyroxine 50 mcg tablet 1 tab PO QAM ergocalciferol (vitamin D2) 1,250 mcg (50,000 unit) capsule 1 cap PO QWEEK albuterol sulfate 90 mcg/actuation HFA aerosol inhaler 2 puff PO Q6H PRN (Reason: wheezing) atenolol 50 mg tablet 1 tab PO BID bupropion HCl 300 mg tablet extended release 24 hr 1 tab PO DAILY bupropion HCl 150 mg tablet extended release 24 hr 1 tab PO DAILY PRN (Reason: Pain, Severe) duloxetine 60 mg capsule,delayed release(DR/EC) 1 cap PO BID pregabalin 150 mg capsule 150 mg PO BID oxycodone 20 mg tablet 20 mg PO Q4H PRN (Reason: Pain) nitrofurantoin monohyd/m-cryst [Macrobid] 100 mg capsule 100 mg PO Q12H 5 Days Qty: 10 0RF Rx Instructions: must administer with a meal/food amlodipine-olmesartan 5-20 mg tablet 1 tab PO DAILY losartan 50 mg tablet 50 mg PO DAILY prednisone 5 mg tablet 5 mg PO DAILY Referrals: Physician,Unknown J [Primary Care Provider] - 5 days
[2023-01-06 13:24] LABS: MANUAL DIFF FLAG NO
[2023-01-06 13:26] LABS: Basophils Percent Auto 0.2 % (0-2); Hemoglobin 11.2 g/dl (12.0-16.0); Imm Gran Abs Auto 0.02 X10*3/uL (0.00-0.03); Imm Gran Pct Auto 0.4 % (0.0-0.4); Lymphocytes Absolute Auto 0.5 X10*3/uL (1.2-4.9); Mean Corpuscular Hemoglobin 32.1 pg (27.0-33.0); Mean Corpuscular Volume 91.7 fL (80.0-98.0); Mean Platelet Volume 10.5 fL (9.4-12.3); Monocytes Absolute Auto 0.4 X10*3/uL (0.1-1.2); Monocytes Percent Auto 7.8 % (2-11); Neutrophils Absolute Auto 4.2 x10*3/uL (2.0-8.3); Neutrophils Percent Auto 81.6 % (45-73); Platelet Count 148 X10*3/uL (160-400); Red Blood Count 3.49 X10*6/uL (4.20-5.50); Red Cell Distribution Width 14.7 % (11.0-16.0); White Blood Count 5.1 X10*3/uL (4.8-10.8)
[2023-01-06] MEDS: diphenhydrAMINE HCL 50 MG/ML VIAL 25 MG IVPUSH (13:38)
[2023-01-06] MEDS: Haloperidol Lactate 5 MG/ML VIAL IVPUSH (13:38)
[2023-01-06] MEDS: Morphine Sulfate 10 MG/ML CARTRIDGE 5 MG IVPUSH (13:41)
[2023-01-06 13:51] LABS: Alanine Aminotransferase 19 U/L (0-31); Albumin Level 3.7 g/dL (3.5-5.0); Alkaline Phosphatase 71 U/L (39-117); Anion Gap 14 (12-20); Aspartate Amino Transferase 23 U/L (5-31); Bilirubin Total 0.3 mg/dL (0.0-1.0); Blood Urea Nitrogen 13 mg/dL (9-16); Calcium 9.6 mg/dL (8.4-10.2); Carbon Dioxide 25 mmol/L (22-29); Chloride 101 mmol/L (96-108); Creatinine Clr Calc Pharmacy 70.9; Estimated Glomerular Filt Rate > 60; Glucose Random 103 mg/dL (60-115); Lipase 5 U/L (8-78); Potassium 3.4 mmol/L (3.3-5.1); Sodium 137 mmol/L (135-145)
[2023-01-06 16:11] LABS: Appearance Urine Cloudy; Color Urine Yellow; Glucose Urine UA Negative (Negative); Leukocyte Esterase Urine Moderate (2+) (Negative); Nitrite Urine Positive (Negative); PH 5.5 (5.0-9.0); UMIC TRIGGER UACC YES; Urine Blood Small (1+) (Negative); Urine Ketones Trace mg/dL (Negative); Urine Protein Trace mg/dL (Neg-Trace)
--- NOTE | 2023-01-06 16:15 | PC.NURSE ---
md curtis made aware pt trying to get oob - rn placing on video monitoring system- called room to confirm they have pt on for room 22 at this time as pt moved from room 3. pt moved in front of nursing station. fall precautions inplace. md curtis and rell parmar aware pt having head pain- providers ordering medication. pt given ice pack. urine sent to lab via strt cath per pt request as pt states prefer this not void on commode
--- NOTE | 2023-01-06 16:22 | PC.NURSE ---
pt confirmed on video monitoring - confirmed again w remote monitor room upstairs pt visualized.
[2023-01-06 16:23] LABS: Bacteria Urine 4+ (None Seen); Hyaline Casts Urine 0-2 /LPF (0-2); Squamous Epithelial Cell Urine 0-2 /HPF (0-2); UACC Culture Trigger YES; WBC Urine >50 /HPF (0-5)
--- NOTE | 2023-01-06 16:36 | PC.NURSE ---
rn remains in room at pt bedside as pt continuing to try to get oob- rn informed cupola charger pt needs istter
--- NOTE | 2023-01-06 16:38 | PC.NURSE ---
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 sitter to come soon to watch pt
[2023-01-06] MEDS: cephALEXin 500 MG CAPSULE PO (16:51)
--- NOTE | 2023-01-06 17:44 | PC.NURSE ---
1:1 remains at bedside w pt. drinking po fludis well.
--- NOTE | 2023-01-06 18:00 | PC.NURSE ---
Addendum entered by Katina Bear 01/06/23 19:27: this note was supposed to be written for 1855- please disregard 1927. Original Note: per md curtis pt to take oxycodone as is on at home and suspects this could be part of pt's confusion along with the UTI that urine has shown. per MD curtis not discharging at this time per son request as well- to observe for changes s/p oxy to ensure pt tolerates this well and is less confused.
--- NOTE | 2023-01-06 18:36 | PC.NURSE ---
md curtis spoke w rajan member at bedside ordering oxy per home med
[2023-01-06] MEDS: oxyCODONE HCl Immed Release 15 MG TABLET 20 MG PO (18:41)
--- NOTE | 2023-01-06 19:30 | PC.NURSE ---
This sba underwriter assumed care of this Pt at 1900. Pt A&O to self, sitting up on stretcher, camera in place for safety, son at bedside has concern about Pt going back home alone. Pt reports using wheeled walker with chair to move around, Dr. Kraft made aware of concern, hold on Pt D/C. Pt ambulated with one staff assist to BR, Pt has slow steady gait. Swelling noted to BLL.
--- NOTE | 2023-01-06 23:26 | PC.NURSE ---
Pt restless attempting to get OOB, redirectable. Pt transferred over to hospital bed and repositioned.
--- NOTE | 2023-01-07 00:47 | PM.IMHP ---
History of Present Illness Date of Service: 01/07/23 Chief Complaint: AMS This is a 72-year-old female with pertinent history of essential hypertension, COPD, mood disorder, hypothyroidism, rheumatoid arthritis, gastroesophageal reflux disease, fibromyalgia who was brought to the emergency department for evaluation of agitation and altered mentation. Unable to obtain history from the patient as she is confused. History obtained from ER provider and chart review. As per the son who was present earlier, patient stopped taking her oxycodone several days ago. He she was taking 20 mg of oxycodone 3 times a day. The son also stated that the patient gets confused when she has a urine infection. Patient stopped taking her pain medications as she was throwing up. Unable to obtain review of systems Review of Systems Review of Systems: Yes Unobtainable due to mental status PMFSH Medical History Osteomyelitis COPD (chronic obstructive pulmonary disease) Rheumatoid lung Hypothyroidism Congestive heart failure Fibromyalgia HTN (hypertension) Depression Rheumatoid arthritis Family History Father No problems noted. Other Heart disease Surgical History Hx of prior ablation treatment Knee joint replacement status Social History Household Members: None Housing: Apartment Do you presently have visiting nurse or other home services: Yes Alcohol intake: never Patient Tobacco Use Status: Former Tobacco user Smoked in Last 30 Days: No Use of substances other than those prescribed or required for medical reasons: No Advance Directives: No Advance Directives Information Provided: No Meds Allergies Allergy/AdvReac Type Severity Reaction Status Date / Time lisinopril [LISINOPRIL] Allergy Severe ANAPHYLAXIS Verified 01/06/23 23:55 Sulfa (Sulfonamide Allergy Intermediate RASH Verified 01/06/23 23:55 Antibiotics) [SULFA (SULFONAMIDE ANTIBIOTICS)] tramadol [TRAMADOL] Allergy Intermediate RASH Verified 01/06/23 23:55 Lrcwyqj-JNV-EnZ Reductase Allergy Rash Verified 01/06/23 23:55 Inhibitor [Epfxrka-Zly-Rry Reductase Inhibitor] hydrochlorothiazide [HCTZ] AdvReac Unknown ABNORMAL Verified 01/06/23 23:55 LABS? Active Medications: Current Medications Albuterol Sulfate (Albuterol Sulfate 90 Mcg 8 Gm Inhaler) 2 puff INHALE Q6H PRN PRN Reason: wheezing Amlodipine Besylate (Amlodipine Besylate 5 Mg Tablet) 5 mg PO DAILY [facility] Atenolol (Atenolol 50 Mg Tablet) 50 mg PO BID [facility]; Protocol Bupropion HCl (Bupropion Hcl Xl 150 Mg Tab.Er.24h) 150 mg PO DAILY PRN PRN Reason: Pain, Severe Bupropion HCl (Bupropion Hcl Xl 300 Mg Tab.Er.24h) 300 mg PO DAILY [facility] Duloxetine HCl (Duloxetine Hcl 60 Mg Capsule.) 60 mg PO BID [facility] Ergocalciferol (Ergocalciferol (Vitamin D2) 1,250 Mcg Capsule) 1,250 mcg PO Q7D [facility] Gemfibrozil (Gemfibrozil 600 Mg Tablet) 600 mg PO BID [facility] Ceftriaxone Sodium 1 gm/ (Sodium Chloride) 50 mls @ 100 mls/hr IV ONCE ONE Stop: 01/07/23 00:54 Sodium Chloride (Ns) 1,000 mls @ 999 mls/hr IV .Q1H1M STA Stop: 01/07/23 01:33 Levothyroxine Sodium (Levothyroxine Sodium 50 Mcg Tablet) 50 mcg PO DAILY@0630 [facility] Losartan Potassium (Losartan Potassium 50 Mg Tablet) 50 mg PO DAILY [facility]; Protocol Methotrexate (Methotrexate Sodium 2.5 Mg Tablet) 25 mg PO MO@1000 [facility] Nitrofurantoin Macrocrystals (Nitrofurantoin Monohyd/M-Cryst 100 Mg Capsule) 100 mg PO Q12H [facility] Omeprazole (Omeprazole 40 Mg Capsule.) 40 mg PO DAILY [facility] Prednisone (Prednisone 1 Mg Tablet) 4 mg PO DAILY [facility] Prednisone (Prednisone 5 Mg Tablet) 5 mg PO DAILY [facility] Pregabalin (Pregabalin 150 Mg Capsule) 150 mg PO BID [facility] Valsartan (Valsartan 80 Mg Tablet) 80 mg PO DAILY [facility] Home Medications Medication Instructions Recorded Confirmed Last Taken Type albuterol sulfate 90 mcg/actuation 2 puff PO Q6H PRN wheezing 08/23/21 01/06/23 Unknown History aerosol inhaler atenolol 50 mg tablet 1 tab PO BID 08/23/21 01/06/23 Unknown History bupropion HCl 150 mg 24 hr tablet, 1 tab PO DAILY PRN Pain, Severe 08/23/21 01/06/23 Unknown History extended release bupropion HCl 300 mg 24 hr tablet, 1 tab PO DAILY 08/23/21 01/06/23 Unknown History extended release duloxetine 60 mg capsule,delayed 1 cap PO BID 08/23/21 01/06/23 Unknown History release ergocalciferol (vitamin D2) 1,250 1 cap PO QWEEK 08/23/21 01/06/23 Unknown History mcg (50,000 unit) capsule gemfibrozil 600 mg tablet 600 mg PO BID 08/23/21 01/06/23 Unknown History levothyroxine 50 mcg tablet 1 tab PO QAM 08/23/21 01/06/23 Unknown History methotrexate sodium 2.5 mg tablet 10 tab PO MO@1000 08/23/21 01/06/23 Unknown History omeprazole 40 mg capsule,delayed 1 cap PO DAILY 08/23/21 01/06/23 Unknown History release oxycodone 20 mg tablet 20 mg PO Q4H PRN Pain 08/23/21 01/06/23 Unknown History prednisone 1 mg tablet 4 tab PO QAM 08/23/21 01/06/23 Unknown History pregabalin 150 mg capsule 150 mg PO BID 08/23/21 01/06/23 Unknown History amlodipine 5 mg-olmesartan 20 mg 1 tab PO DAILY 02/16/22 01/06/23 Unknown History tablet losartan 50 mg tablet 50 mg PO DAILY 02/16/22 01/06/23 Unknown History prednisone 5 mg tablet 5 mg PO DAILY 02/16/22 01/06/23 Unknown History Physical Exam Vital Signs and Narrative: Vital Signs: Last Vital Signs Temp 98.8 F 01/06/23 17:41 Pulse 91 01/06/23 22:47 Resp 16 01/06/23 22:47 BP 172/72 H 01/06/23 22:47 Pulse Ox 95 01/06/23 22:47 O2 Del Method Room Air 01/06/23 22:47 BMI result Body Mass Index 31.0 Elderly female lying in bed in no distress Neck supple, no JVD Regular rate and rhythm, S1-S2 heard Regular breath sounds bilaterally, no wheezing or crackles appreciated Abdomen soft nontender, no guarding, no rigidity Patient is drowsy awakens to verbal stimulus, disoriented to place, time and person Psych: Lethargic No pedal edema Results Labs 01/06/23 13:20 01/06/23 13:20 Labs: Laboratory Results - last 24 hr 01/06/23 01/06/23 13:20 15:54 MCV 91.7 MCH 32.1 MCHC 35.0 RDW 14.7 Plt Count 148 L MPV 10.5 Immature Gran % (Auto) 0.4 Neut % (Auto) 81.6 H Lymph % (Auto) 10.0 L [place] % (Auto) 7.8 Eos % (Auto) 0.0 Baso % (Auto) 0.2 Lymph # (Auto) 0.5 L [place] # (Auto) 0.4 Eos # (Auto) 0.0 Baso # (Auto) 0.0 Abs Immat Gran (auto) 0.02 Absolute Neuts (auto) 4.2 Absolute Nucleated RBC 0.000 Nucleated RBC % (auto) 0.0 Anion Gap 14 Estim Creat Clear Calc 70.9 Estimated GFR > 60 Random Glucose 103 Calcium 9.6 Total Bilirubin 0.3 AST 23 ALT 19 Alkaline Phosphatase 71 Total Protein 7.0 Albumin 3.7 Lipase 5 L Urine Color Yellow Urine Appearance Cloudy Urine pH 5.5 Ur Specific [place] 1.020 Urine Protein Trace Urine Glucose (UA) Negative Urine Ketones Trace Urine Blood Small (1+) H Urine Nitrite Positive H Ur Leukocyte Esterase Moderate (2+) H Urine RBC 3-5 H Urine WBC >50 H Ur Squamous Epith Cells 0-2 Urine Bacteria 4+ Hyaline Casts 0-2 Imaging Radiologist's Impressions: Impressions Head CT 01/06/23 14:10 IMPRESSION: No acute intracranial abnormality. Assessment and Plan (1) Altered mental status: Qualifiers: Altered mental status type: unspecified Qualified Code(s): R41.82 - Altered mental status, unspecified Status: Acute (2) Urinary tract infection: Qualifiers: Hematuria presence: without hematuria Urinary tract infection type: site unspecified Qualified Code(s): N39.0 - Urinary tract infection, site not specified Status: Acute Plan This is a 72-year-old female with pertinent history of essential hypertension, COPD, mood disorder, hypothyroidism, rheumatoid arthritis, gastroesophageal reflux disease, fibromyalgia who was brought to the emergency department for evaluation of agitation and altered mentation. #. Acute metabolic encephalopathy due to acute UTI: Initiating empiric IV Rocephin. Follow urine culture. No sepsis. #. Agitation due to opioid withdrawal. Patient drowsy at the time of my evaluation. Was given Haldol, oxycodone and morphine in the ER. #. Essential hypertension: Continue atenolol, amlodipine, losartan #. Mood disorder: Continue home mood stabilizers #. Hypothyroidism: On Synthroid #. Rheumatoid arthritis: On long-term steroids and methotrexate DVT prophylaxis: Azam Full code Admit as inpatient and will require two night minimum hospital stay for IV antibiotics Time Spent With Patient Time: Total time managing care of this patient today ____ minutes. Quality Stroke Does the patient have a stroke diagnosis?: No VTE Prior VTE?: No VTE Risk Level:: Medical - moderate - high VTE Device Contraindication: Treatment Not Indicated VTE Drug Contraindication: N/A - Med Ordered
[2023-01-07] MEDS: cefTRIAXone sodium 1 GM in 0.9 % Sodium Chloride 50 ML IV (00:48)
[2023-01-07] MEDS: 0.9 % Sodium Chloride 1,000 ML 999 ML IV (00:50)
[2023-01-07] MEDS: oxyCODONE HCl Immed Release 15 MG TABLET 20 MG PO (00:51)
[2023-01-07] MEDS: Enoxaparin Sodium 40 MG/0.4 ML SYRINGE SUBCUT (02:15)
--- NOTE | 2023-01-07 03:32 | PC.NURSE ---
Addendum entered by Yohana Ashford 01/07/23 03:50: Pt medicated per MAY, back to bed and repositioned. Original Note: Pt awake, very restless, unsteady, going back and forth from bed to chair and back to bed. Pt reports feeling anxious. Dr. Lewis made aware, new order. Pt made aware of plan.
[2023-01-07 03:36] VITALS: BP 172/68; PULSE 79; RESP 20; O2SAT 95
[2023-01-07] MEDS: LORazepam 2 MG/ML VIAL 1 MG IVPUSH (03:41)
[2023-01-07] MEDS: OLANZapine 10 MG VIAL 5 MG IM (03:45)
--- NOTE | 2023-01-07 04:02 | PC.NURSE ---
RN to RN report, pt will e transported to [id number]. Pt aware of plan.
[2023-01-07 04:16] VITALS: BMI 32.9
[2023-01-07 07:26] LABS: MANUAL DIFF FLAG NO
[2023-01-07 07:28] LABS: Basophils Percent Auto 0.2 % (0-2); Eosinophils Percent Auto 0.2 % (0-4); Hemoglobin 11.4 g/dl (12.0-16.0); Imm Gran Abs Auto 0.02 X10*3/uL (0.00-0.03); Imm Gran Pct Auto 0.4 % (0.0-0.4); Lymphocytes Absolute Auto 1.1 X10*3/uL (1.2-4.9); Lymphocytes Percent Auto 23.4 % (20-40); Mean Corpuscular HGB Conc 34.5 g/dl (31.0-35.0); Mean Corpuscular Hemoglobin 32.2 pg (27.0-33.0); Mean Corpuscular Volume 93.2 fL (80.0-98.0); Mean Platelet Volume 9.6 fL (9.4-12.3); Monocytes Absolute Auto 0.5 X10*3/uL (0.1-1.2); Monocytes Percent Auto 11.6 % (2-11); Neutrophils Absolute Auto 2.9 x10*3/uL (2.0-8.3); Neutrophils Percent Auto 64.2 % (45-73); Platelet Count 136 X10*3/uL (160-400); Red Blood Count 3.54 X10*6/uL (4.20-5.50); Red Cell Distribution Width 14.6 % (11.0-16.0); White Blood Count 4.5 X10*3/uL (4.8-10.8)
[2023-01-07 07:30] VITALS: BP 176/74; PULSE 73; RESP 18; TEMP 36.9; O2SAT 98
[2023-01-07 07:54] LABS: Anion Gap 15 (12-20); Blood Urea Nitrogen 12 mg/dL (9-16); Carbon Dioxide 26 mmol/L (22-29); Chloride 102 mmol/L (96-108); Creatinine Clr Calc Pharmacy 71.3; Estimated Glomerular Filt Rate > 60; Glucose Random 79 mg/dL (60-115); Potassium 3.3 mmol/L (3.3-5.1); Sodium 140 mmol/L (135-145)
--- NOTE | 2023-01-07 10:05 | PHA.MEDREC ---
Pharmacy Consult ? Medication Reconciliation Pharmacy has completed the medication reconciliation. Spoke with patients daughter over the phone to discuss medications, however the list she was going off of was from 2020. She was able to confirm most of the medications but was unsure about dosing and frequency. I verified this with claim history and [facility] over the phone. Daughter explained that it has been a struggle over the past year to get the patient to take her medications as directed. She also explained that the oxycodone is taken scheduled vs prn.
[2023-01-07] MEDS: predniSONE 1 MG TABLET 4 MG PO (10:13)
[2023-01-07] MEDS: Pregabalin 150 MG CAPSULE PO ×2 (10:13→21:27)
[2023-01-07] MEDS: DULoxetine HCl 60 MG CAPSULE.DR PO ×2 (10:13→21:23)
[2023-01-07] MEDS: 0.9 % Sodium Chloride Flush 3 ML SYRINGE IVFLUSH ×3 (10:13→21:23)
[2023-01-07] MEDS: Losartan Potassium 50 MG TABLET PO (10:13)
[2023-01-07] MEDS: gemfibroziL 600 MG TABLET PO (10:13)
[2023-01-07] MEDS: buPROPion HCl XL 300 MG TAB.ER.24H PO (10:13)
[2023-01-07] MEDS: Omeprazole 40 MG CAPSULE.DR PO (10:14)
[2023-01-07] MEDS: amLODIPine Besylate 5 MG TABLET PO (10:14)
[2023-01-07] MEDS: oxyCODONE HCl Immed Release 5 MG TABLET 20 MG PO ×2 (10:14→16:30)
[2023-01-07] MEDS: atenoloL 50 MG TABLET PO ×2 (10:15→21:23)
[2023-01-07] MEDS: Ergocalciferol (Vitamin D2) 1,250 MCG CAPSULE 1250 MCG PO (10:43)
--- NOTE | 2023-01-07 12:07 | HO.PM.IMPN ---
Subjective Subjective Date of Service: 01/07/23 Interval History: confused Physical Exam Vital Signs: Vital Signs: Last Vital Signs Temp 98.5 F 01/07/23 07:30 Pulse 73 01/07/23 07:30 Resp 18 01/07/23 07:30 BP 176/74 H 01/07/23 07:30 Pulse Ox 98 01/07/23 07:30 O2 Del Method Nasal Cannula 01/07/23 07:30 O2 Flow Rate 2 01/07/23 07:30 BMI result Body Mass Index 32.9 confused, disoriented Objective Data Active Medications Acetaminophen (Acetaminophen 325 Mg Tablet) 650 mg PO Q6H PRN PRN Reason: Pain, Mild (Pain Scale 1-3) Acetaminophen (Acetaminophen Supp 650 Mg Supp.Rect) 650 mg [place] Q6H PRN PRN Reason: Pain, Mild (Pain Scale 1-3) Albuterol Sulfate (Albuterol Sulfate 90 Mcg 8 Gm Inhaler) 2 puff INHALE Q6H PRN PRN Reason: wheezing Atenolol (Atenolol 50 Mg Tablet) 50 mg PO BID [facility]; Protocol Last Admin: 01/07/23 10:15 Dose: 50 mg Documented By: LAZARA Bupropion HCl (Bupropion Hcl Xl 150 Mg Tab.Er.24h) 150 mg PO DAILY PRN PRN Reason: Pain, Severe Bupropion HCl (Bupropion Hcl Xl 300 Mg Tab.Er.24h) 300 mg PO DAILY [facility] Last Admin: 01/07/23 10:13 Dose: 300 mg Documented By: LAZARA Duloxetine HCl (Duloxetine Hcl 60 Mg Capsule.) 60 mg PO BID [facility] Last Admin: 01/07/23 10:13 Dose: 60 mg Documented By: LAZARA Enoxaparin Sodium (Enoxaparin Sodium 40 Mg/0.4 Ml Syringe) 40 mg SUBCUT Q24H [facility] Last Admin: 01/07/23 02:15 Dose: 40 mg Documented By: SERRANX Ergocalciferol (Ergocalciferol (Vitamin D2) 1,250 Mcg Capsule) 1,250 mcg PO Q7D [facility] Last Admin: 01/07/23 10:43 Dose: 1,250 mcg Documented By: LAZARA Ceftriaxone Sodium 1 gm/ (Sodium Chloride) 50 mls @ 100 mls/hr IV Q24H [facility] Levothyroxine Sodium (Levothyroxine Sodium 50 Mcg Tablet) 50 mcg PO DAILY@0630 [facility] Last Admin: 01/07/23 05:28 Dose: Not Given Documented By: BARON Non-Admin Reason: NPO Losartan Potassium (Losartan Potassium 50 Mg Tablet) 50 mg PO DAILY [facility]; Protocol Last Admin: 01/07/23 10:13 Dose: 50 mg Documented By: LAZARA Melatonin (Melatonin 3 Mg Tablet) 6 mg PO BEDTIME PRN PRN Reason: Insomnia Omeprazole (Omeprazole 40 Mg Capsule.Dr) 40 mg PO DAILY [facility] Last Admin: 01/07/23 10:14 Dose: 40 mg Documented By: LAZARA Ondansetron HCl (Ondansetron Hcl 4 Mg/2 Ml Vial) 4 mg IVPUSH Q8H PRN PRN Reason: Nausea and Vomiting Oxycodone HCl (Oxycodone Hcl Immed Release 5 Mg Tablet) 20 mg PO Q8H [facility] Last Admin: 01/07/23 10:14 Dose: 20 mg Documented By: LAZARA Prednisone (Prednisone 1 Mg Tablet) 4 mg PO DAILY [facility] Last Admin: 01/07/23 10:13 Dose: 4 mg Documented By: LAZARA Prednisone (Prednisone 5 Mg Tablet) 5 mg PO DAILY PRN PRN Reason: FLAIRS Pregabalin (Pregabalin 150 Mg Capsule) 150 mg PO BID [facility] Last Admin: 01/07/23 10:13 Dose: 150 mg Documented By: LAZARA Sodium Chloride (0.9 % Sodium Chloride Flush 3 Ml Syringe) 3 ml IVFLUSH QSHIFT [facility] Last Admin: 01/07/23 10:13 Dose: 3 ml Documented By: LAZARA Labs 01/07/23 07:14 01/07/23 07:14 Labs: Laboratory Results - last 24 hr 01/06/23 01/06/23 01/07/23 13:20 15:54 07:14 MCV 91.7 93.2 MCH 32.1 32.2 MCHC 35.0 34.5 RDW 14.7 14.6 Plt Count 148 L 136 L MPV 10.5 9.6 Immature Gran % (Auto) 0.4 0.4 Neut % (Auto) 81.6 H 64.2 Lymph % (Auto) 10.0 L 23.4 [place] % (Auto) 7.8 11.6 H Eos % (Auto) 0.0 0.2 Baso % (Auto) 0.2 0.2 Lymph # (Auto) 0.5 L 1.1 L [place] # (Auto) 0.4 0.5 Eos # (Auto) 0.0 0.0 Baso # (Auto) 0.0 0.0 Abs Immat Gran (auto) 0.02 0.02 Absolute Neuts (auto) 4.2 2.9 Absolute Nucleated RBC 0.000 0.000 Nucleated RBC % (auto) 0.0 0.0 Anion Gap 14 15 Estim Creat Clear Calc 70.9 71.3 Estimated GFR > 60 > 60 Random Glucose 103 79 Calcium 9.6 9.0 D Total Bilirubin 0.3 AST 23 ALT 19 Alkaline Phosphatase 71 Total Protein 7.0 Albumin 3.7 Lipase 5 L Urine Color Yellow Urine Appearance Cloudy Urine pH 5.5 Ur Specific [place] 1.020 Urine Protein Trace Urine Glucose (UA) Negative Urine Ketones Trace Urine Blood Small (1+) H Urine Nitrite Positive H Ur Leukocyte Esterase Moderate (2+) H Urine RBC 3-5 H Urine WBC >50 H Ur Squamous Epith Cells 0-2 Urine Bacteria 4+ Hyaline Casts 0-2 Assessment and Plan (1) Altered mental status: Status: Acute Plan 72F PMH htn, copd, mood disorder, hypothyroid, RA, gerd, fibromyalgia presented with ams Acute metabolic encephalopathy due to acute UTI, opiate dependence with withdrawal Ceftriaxone, follow-up cultures Monitor Hypertension Atenolol, amlodipine, losartan Mood disorder Continue antidepressants Hypothyroid synthroid RA prednisone hodling MTX dvt prophylaxis - lovenox full cdoe reason for continued hospitalization:ams Time Spent With Patient Time: Total time managing care of this patient today ____ minutes. Quality Stroke Does the patient have a stroke diagnosis?: No VTE Prior VTE?: No VTE Risk Level:: Medical - moderate - high VTE Device Contraindication: Treatment Not Indicated VTE Drug Contraindication: N/A - Med Ordered
[2023-01-07 15:22] VITALS: BP 178/72; PULSE 74; RESP 16; TEMP 37.1; O2SAT 94
--- NOTE | 2023-01-07 16:19 | MHC.CM.PN ---
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 FAMILY TO TRANSPORT
--- NOTE | 2023-01-07 17:53 | PC.NURSE ---
Pt's daughter called once, marketing secretary let me know but this Nurse couldn't get to the phone right away, daughter called second time and this Nurse was available to talk to the daughter. Daughter was upset that not the Doctor or anybody called her for updates. Explained to her that, I can let the Doctor knows if she wanted to talk to them but get more upset because she questin why this Nurse couldn't get to the phone or call her back yet, and I told her i was going to call her back eventully, she wasn't happy with the choice of words, eventually.
[2023-01-07 19:26] VITALS: BP 145/74; PULSE 59; RESP 18; TEMP 36.4; O2SAT 95
[2023-01-07] MEDS: Acetaminophen 325 MG TABLET 650 MG PO (21:22)
[2023-01-07] MEDS: Melatonin 3 MG TABLET 6 MG PO (21:23)
[2023-01-07 23:48] VITALS: BP 137/64; PULSE 56; RESP 19; TEMP 36.6; O2SAT 93
[2023-01-08] MEDS: oxyCODONE HCl Immed Release 5 MG TABLET 20 MG PO ×5 (00:49→22:04)
[2023-01-08] MEDS: Enoxaparin Sodium 40 MG/0.4 ML SYRINGE SUBCUT (00:49)
[2023-01-08] MEDS: cefTRIAXone sodium 1 GM in 0.9 % Sodium Chloride 50 ML IV (00:50)
[2023-01-08] MEDS: Levothyroxine Sodium 50 MCG TABLET PO (05:07)
[2023-01-08 05:41] LABS: Hematocrit 35.4 % (37.0-47.0); Hemoglobin 11.8 g/dl (12.0-16.0); Mean Corpuscular HGB Conc 33.3 g/dl (31.0-35.0); Mean Corpuscular Hemoglobin 31.9 pg (27.0-33.0); Mean Corpuscular Volume 95.7 fL (80.0-98.0); Mean Platelet Volume 10.4 fL (9.4-12.3); Platelet Count 135 X10*3/uL (160-400); Red Cell Distribution Width 14.9 % (11.0-16.0); White Blood Count 3.2 X10*3/uL (4.8-10.8)
[2023-01-08 06:12] LABS: Anion Gap 14 (12-20); Blood Urea Nitrogen 13 mg/dL (9-16); Calcium 8.6 mg/dL (8.4-10.2); Carbon Dioxide 24 mmol/L (22-29); Chloride 105 mmol/L (96-108); Creatinine Clr Calc Pharmacy 72.9; Estimated Glomerular Filt Rate > 60; Glucose Fasting 80 mg/dL (60-99); Potassium 3.1 mmol/L (3.3-5.1); Sodium 140 mmol/L (135-145)
[2023-01-08 08:00] VITALS: BP 145/85; PULSE 56; TEMP 36.5; O2SAT 96
[2023-01-08] MEDS: Pregabalin 150 MG CAPSULE PO ×2 (08:27→20:24)
[2023-01-08] MEDS: buPROPion HCl XL 300 MG TAB.ER.24H PO (08:28)
[2023-01-08] MEDS: Losartan Potassium 50 MG TABLET PO (08:28)
[2023-01-08] MEDS: DULoxetine HCl 60 MG CAPSULE.DR PO ×2 (08:28→20:24)
[2023-01-08] MEDS: predniSONE 1 MG TABLET 4 MG PO (08:28)
[2023-01-08] MEDS: Potassium Chloride ER 20 MEQ TAB.ER.PRT 40 MEQ PO (08:28)
[2023-01-08] MEDS: atenoloL 50 MG TABLET PO ×2 (08:28→20:24)
[2023-01-08] MEDS: Omeprazole 40 MG CAPSULE.DR PO (08:28)
[2023-01-08] MEDS: 0.9 % Sodium Chloride Flush 3 ML SYRINGE IVFLUSH ×3 (08:33→22:06)
--- NOTE | 2023-01-08 09:36 | PC.NURSE ---
Pt daughter Called Eric Foreman, yelling at this nurse on the phone that no one has called her to update about the patients status. Patient talked with RN yesterday evening. Attempted to educate patients daughter, however Susy continued to talk over this junior technical writer and was no actively listening. MD Moreno paged to call daughter with an update about patients condition. Pt daughter also lives locally, [place], and was encouraged to come visit her mother. Phone call witnessed by medical unit secretary.
--- NOTE | 2023-01-08 09:43 | PC.NURSE ---
This nurse spoke with the patient after speaking with the daughter. Pt agreed, that she is her own person and is A&Ox4. Pt agrees, No need to call daughter unless something went wrong. Pt updated that MD will call daughter and update her.
--- NOTE | 2023-01-08 10:19 | P.PNIM_ITS ---
Subjective Subjective Date of Service: 01/08/23 Interval History: more alert Physical Exam 2 Vital Signs: Vital Signs: Last Vital Signs Temp 97.7 F 01/08/23 08:00 Pulse 56 01/08/23 08:00 Resp 19 01/07/23 23:48 BP 145/85 H 01/08/23 08:00 Pulse Ox 96 01/08/23 08:00 O2 Del Method Room Air 01/08/23 08:00 O2 Flow Rate 2 01/07/23 23:48 BMI result Body Mass Index 32.9 much more alert, oriented times 4 Objective Data Active Medications Acetaminophen (Acetaminophen 325 Mg Tablet) 650 mg PO Q6H PRN PRN Reason: Pain, Mild (Pain Scale 1-3) Last Admin: 01/07/23 21:22 Dose: 650 mg Documented By: MANDO Acetaminophen (Acetaminophen Supp 650 Mg Supp.Rect) 650 mg [place] Q6H PRN PRN Reason: Pain, Mild (Pain Scale 1-3) Albuterol Sulfate (Albuterol Sulfate 90 Mcg 8 Gm Inhaler) 2 puff INHALE Q6H PRN PRN Reason: wheezing Atenolol (Atenolol 50 Mg Tablet) 50 mg PO BID [facility]; Protocol Last Admin: 01/08/23 08:28 Dose: 50 mg Documented By: ROSE Bupropion HCl (Bupropion Hcl Xl 150 Mg Tab.Er.24h) 150 mg PO DAILY PRN PRN Reason: Pain, Severe Bupropion HCl (Bupropion Hcl Xl 300 Mg Tab.Er.24h) 300 mg PO DAILY [facility] Last Admin: 01/08/23 08:28 Dose: 300 mg Documented By: ROSE Duloxetine HCl (Duloxetine Hcl 60 Mg Capsule.Dr) 60 mg PO BID [facility] Last Admin: 01/08/23 08:28 Dose: 60 mg Documented By: ROSE Enoxaparin Sodium (Enoxaparin Sodium 40 Mg/0.4 Ml Syringe) 40 mg SUBCUT Q24H [facility] Last Admin: 01/08/23 00:49 Dose: 40 mg Documented By: MANDO Ergocalciferol (Ergocalciferol (Vitamin D2) 1,250 Mcg Capsule) 1,250 mcg PO Q7D [facility] Last Admin: 01/07/23 10:43 Dose: 1,250 mcg Documented By: LAZARA Meropenem 1 gm/ Sodium (Chloride) 100 mls @ 200 mls/hr IV Q8H [facility] Levothyroxine Sodium (Levothyroxine Sodium 50 Mcg Tablet) 50 mcg PO DAILY@0630 [facility] Last Admin: 01/08/23 05:07 Dose: 50 mcg Documented By: MANDO Losartan Potassium (Losartan Potassium 50 Mg Tablet) 50 mg PO DAILY [facility]; Protocol Last Admin: 01/08/23 08:28 Dose: 50 mg Documented By: ROSE Melatonin (Melatonin 3 Mg Tablet) 6 mg PO BEDTIME PRN PRN Reason: Insomnia Last Admin: 01/07/23 21:23 Dose: 6 mg Documented By: MANDO Omeprazole (Omeprazole 40 Mg Capsule.) 40 mg PO DAILY [facility] Last Admin: 01/08/23 08:28 Dose: 40 mg Documented By: ROSE Ondansetron HCl (Ondansetron Hcl 4 Mg/2 Ml Vial) 4 mg IVPUSH Q8H PRN PRN Reason: Nausea and Vomiting Oxycodone HCl (Oxycodone Hcl Immed Release 5 Mg Tablet) 20 mg PO Q6H [facility] Prednisone (Prednisone 1 Mg Tablet) 4 mg PO DAILY [facility] Last Admin: 01/08/23 08:28 Dose: 4 mg Documented By: ROSE Prednisone (Prednisone 5 Mg Tablet) 5 mg PO DAILY PRN PRN Reason: FLAIRS Pregabalin (Pregabalin 150 Mg Capsule) 150 mg PO BID [facility] Last Admin: 01/08/23 08:27 Dose: 150 mg Documented By: ROSE Sodium Chloride (0.9 % Sodium Chloride Flush 3 Ml Syringe) 3 ml IVFLUSH QSHIFT [facility] Last Admin: 01/08/23 08:33 Dose: 3 ml Documented By: ROSE Labs 01/08/23 05:23 01/08/23 05:23 Labs: Laboratory Results - last 24 hr 01/08/23 05:23 MCV 95.7 MCH 31.9 MCHC 33.3 RDW 14.9 Plt Count 135 L MPV 10.4 Absolute Nucleated RBC 0.000 Nucleated RBC % (auto) 0.0 Anion Gap 14 Estim Creat Clear Calc 72.9 Estimated GFR > 60 Fasting Glucose 80 Calcium 8.6 Microbiology Microbiology Results: Microbiology 01/06/23 Unknown Urine Culture - Final Urine clean catch - Urine garcia top Escherichia coli Assessment and Plan (1) Altered mental status: Status: Acute Plan 72F PMH htn, copd, mood disorder, hypothyroid, RA, gerd, fibromyalgia presented with ams Acute toxic encephalopathy likely due to opiate dependence with suspicioun of extra doses taken back to baseline restarted oxycodone at 20mg q6h addiction eval UTI with ESBL ecoli meropenem id eval Hypertension Atenolol, amlodipine, losartan Mood disorder Continue antidepressants Hypothyroid synthroid RA prednisone hodling MTX dvt prophylaxis - lovenox full cdoe reason for continued hospitalization:iv merem for resistent orgaqnism Time Spent With Patient Time: Total time managing care of this patient today ____ minutes. Quality Stroke Does the patient have a stroke diagnosis?: No VTE Prior VTE?: No VTE Risk Level:: Medical - moderate - high VTE Device Contraindication: Treatment Not Indicated VTE Drug Contraindication: N/A - Med Ordered
--- NOTE | 2023-01-08 13:03 | MHC.RECOVRN ---
Met with pt in 359 after consult placed to Addiction Medicine for ?opiate dependence, abuse. Pt had presented to ED with AMS and subsequently admitted for acute toxic encephalopathy likely due to opiate dependence with suspicion of extra doses taken. Pt has hx RA and fibromyalgia. Pt sitting in bed, awake, alert, easily engages in conversation, eating lunch. Pt reports being prescribed oxycodone for over 3 years due to pain r/t RA as well as hx broken ribs, back, knee. Pt receives oxycodone from one prescriber who pt reports monitors her medication. Per [facility], pt last received oxycodone hcl (Ir) 20 Mg Tab on 12/26, 180 tabs for a 28 day supply. Pt has been receiving this from same prescriber at least since Jan 2021, according to [facility]. Pt reports she takes her medications as prescribed, does not run out early. Pt denies ever taking medication/opioids other than what is prescribed. Pt reports she feels better after receiving oxycodone in the hospital however, states I can feel the difference in my joints taking 4 a day. I can take 6 a day at home. Pt denies questions or concerns related to opioid dependence. Encouraged to reach out to t/w if needed.
[2023-01-08 15:23] VITALS: BP 146/62; PULSE 58; RESP 18; TEMP 37.1; O2SAT 96
[2023-01-08 18:55] VITALS: BP 138/74; PULSE 62; RESP 16; TEMP 37.4; O2SAT 94
[2023-01-08 20:20] VITALS: PULSE 66
[2023-01-08] MEDS: Acetaminophen 325 MG TABLET 650 MG PO (22:05)
[2023-01-08 23:53] VITALS: BP 164/75; PULSE 70; RESP 18; TEMP 36.4; O2SAT 94
[2023-01-09] MEDS: Enoxaparin Sodium 40 MG/0.4 ML SYRINGE SUBCUT (00:51)
[2023-01-09] MEDS: oxyCODONE HCl Immed Release 5 MG TABLET 20 MG PO ×4 (03:26→21:58)
[2023-01-09] MEDS: Levothyroxine Sodium 50 MCG TABLET PO (06:20)
[2023-01-09 06:34] LABS: Hematocrit 38.5 % (37.0-47.0); Hemoglobin 12.8 g/dl (12.0-16.0); Mean Corpuscular HGB Conc 33.2 g/dl (31.0-35.0); Mean Corpuscular Hemoglobin 32.3 pg (27.0-33.0); Mean Corpuscular Volume 97.2 fL (80.0-98.0); Mean Platelet Volume 10.6 fL (9.4-12.3); Platelet Count 131 X10*3/uL (160-400); Red Blood Count 3.96 X10*6/uL (4.20-5.50); Red Cell Distribution Width 15.2 % (11.0-16.0); White Blood Count 3.9 X10*3/uL (4.8-10.8)
[2023-01-09 06:49] LABS: Anion Gap 16 (12-20); Blood Urea Nitrogen 14 mg/dL (9-16); Calcium 8.6 mg/dL (8.4-10.2); Carbon Dioxide 23 mmol/L (22-29); Chloride 104 mmol/L (96-108); Creatinine Clr Calc Pharmacy 56.9; Estimated Glomerular Filt Rate 50; Glucose Fasting 82 mg/dL (60-99); Magnesium 2.1 mg/dL (1.6-2.6); Potassium 3.5 mmol/L (3.3-5.1); Sodium 139 mmol/L (135-145)
[2023-01-09] MEDS: buPROPion HCl XL 300 MG TAB.ER.24H PO (07:41)
[2023-01-09] MEDS: DULoxetine HCl 60 MG CAPSULE.DR PO ×2 (07:41→20:44)
[2023-01-09] MEDS: 0.9 % Sodium Chloride Flush 3 ML SYRINGE IVFLUSH ×3 (07:42→19:43)
[2023-01-09] MEDS: predniSONE 1 MG TABLET 4 MG PO (07:42)
[2023-01-09] MEDS: Pregabalin 150 MG CAPSULE PO ×2 (07:42→20:44)
[2023-01-09] MEDS: Omeprazole 40 MG CAPSULE.DR PO (07:42)
[2023-01-09] MEDS: Losartan Potassium 50 MG TABLET PO (07:42)
[2023-01-09] MEDS: atenoloL 50 MG TABLET PO ×2 (07:42→20:44)
[2023-01-09 07:52] VITALS: BP 172/82; PULSE 80; RESP 16; TEMP 36.4; O2SAT 96
--- NOTE | 2023-01-09 09:00 | P.PNIM_ITS ---
Subjective Subjective Date of Service: 01/09/23 Interval History: recovered Physical Exam 2 Vital Signs: Vital Signs: Last Vital Signs Temp 97.6 F 01/09/23 07:52 Pulse 80 01/09/23 07:52 Resp 16 01/09/23 07:52 BP 172/82 H 01/09/23 07:52 Pulse Ox 96 01/09/23 07:52 O2 Del Method Room Air 01/09/23 07:52 O2 Flow Rate 2 01/08/23 23:53 BMI result Body Mass Index 32.9 General: AO X 3, no acute distress Resp: CTA bilateral, no accessory muscles used CVS: S1,S2,RRR GI: soft, non tender, non distended Neuro: motor grossly intact, alert Psych: appropriate affect, appropriate insight Objective Data Active Medications Acetaminophen (Acetaminophen 325 Mg Tablet) 650 mg PO Q6H PRN PRN Reason: Pain, Mild (Pain Scale 1-3) Last Admin: 01/08/23 22:05 Dose: 650 mg Documented By: GRIFFIN Acetaminophen (Acetaminophen Supp 650 Mg Supp.Rect) 650 mg [place] Q6H PRN PRN Reason: Pain, Mild (Pain Scale 1-3) Albuterol Sulfate (Albuterol Sulfate 90 Mcg 8 Gm Inhaler) 2 puff INHALE Q6H PRN PRN Reason: wheezing Atenolol (Atenolol 50 Mg Tablet) 50 mg PO BID [facility]; Protocol Last Admin: 01/09/23 07:42 Dose: 50 mg Documented By: MARK Bupropion HCl (Bupropion Hcl Xl 150 Mg Tab.Er.24h) 150 mg PO DAILY PRN PRN Reason: Pain, Severe Bupropion HCl (Bupropion Hcl Xl 300 Mg Tab.Er.24h) 300 mg PO DAILY [facility] Last Admin: 01/09/23 07:41 Dose: 300 mg Documented By: MARK Duloxetine HCl (Duloxetine Hcl 60 Mg Capsule.Dr) 60 mg PO BID [facility] Last Admin: 01/09/23 07:41 Dose: 60 mg Documented By: MARK Enoxaparin Sodium (Enoxaparin Sodium 40 Mg/0.4 Ml Syringe) 40 mg SUBCUT Q24H [facility] Last Admin: 01/09/23 00:51 Dose: 40 mg Documented By: GRIFFIN Ergocalciferol (Ergocalciferol (Vitamin D2) 1,250 Mcg Capsule) 1,250 mcg PO Q7D [facility] Last Admin: 01/07/23 10:43 Dose: 1,250 mcg Documented By: LAZARA Meropenem 1 gm/ Sodium (Chloride) 100 mls @ 200 mls/hr IV Q8H [facility] Last Infusion: 01/09/23 04:12 Dose: Infused Documented By: GRIFFIN Levothyroxine Sodium (Levothyroxine Sodium 50 Mcg Tablet) 50 mcg PO DAILY@0630 [facility] Last Admin: 01/09/23 06:20 Dose: 50 mcg Documented By: GRIFFIN Losartan Potassium (Losartan Potassium 50 Mg Tablet) 50 mg PO DAILY [facility]; Protocol Last Admin: 01/09/23 07:42 Dose: 50 mg Documented By: MARK Melatonin (Melatonin 3 Mg Tablet) 6 mg PO BEDTIME PRN PRN Reason: Insomnia Last Admin: 01/07/23 21:23 Dose: 6 mg Documented By: MANDO Omeprazole (Omeprazole 40 Mg Capsule.) 40 mg PO DAILY [facility] Last Admin: 01/09/23 07:42 Dose: 40 mg Documented By: MARK Ondansetron HCl (Ondansetron Hcl 4 Mg/2 Ml Vial) 4 mg IVPUSH Q8H PRN PRN Reason: Nausea and Vomiting Oxycodone HCl (Oxycodone Hcl Immed Release 5 Mg Tablet) 20 mg PO Q6H [facility] Last Admin: 01/09/23 03:26 Dose: 20 mg Documented By: GRIFFIN Prednisone (Prednisone 1 Mg Tablet) 4 mg PO DAILY [facility] Last Admin: 01/09/23 07:42 Dose: 4 mg Documented By: MARK Prednisone (Prednisone 5 Mg Tablet) 5 mg PO DAILY PRN PRN Reason: FLAIRS Pregabalin (Pregabalin 150 Mg Capsule) 150 mg PO BID [facility] Last Admin: 01/09/23 07:42 Dose: 150 mg Documented By: MARK Sodium Chloride (0.9 % Sodium Chloride Flush 3 Ml Syringe) 3 ml IVFLUSH QSHIFT [facility] Last Admin: 01/09/23 07:42 Dose: 3 ml Documented By: MARK Labs 01/09/23 06:18 01/09/23 06:18 Labs: Laboratory Results - last 24 hr 10/16/23 06:18 MCV 97.2 MCH 32.3 MCHC 33.2 RDW 15.2 Plt Count 131 L MPV 10.6 Absolute Nucleated RBC 0.000 Nucleated RBC % (auto) 0.0 Anion Gap 16 Estim Creat Clear Calc 56.9 Estimated GFR 50 Fasting Glucose 82 Calcium 8.6 Magnesium 2.1 Microbiology Microbiology Results: Microbiology 01/06/23 Unknown Urine Culture - Final Urine clean catch - Urine garcia top Escherichia coli Assessment and Plan (1) Altered mental status: Status: Acute Plan 72F PMH htn, copd, mood disorder, hypothyroid, RA, gerd, fibromyalgia presented with ams Acute toxic encephalopathy likely due to opiate dependence with suspicioun of extra doses taken back to baseline restarted oxycodone at 20mg q6h addiction eval appreciated UTI with ESBL ecoli meropenem id eval Hypertension Atenolol, amlodipine, losartan Mood disorder Continue antidepressants Hypothyroid synthroid RA prednisone holding MTX dvt prophylaxis - lovenox full cdoe reason for continued hospitalization:iv merem for resistent orgaqnism Time Spent With Patient Time: Total time managing care of this patient today ____ minutes. Quality Stroke Does the patient have a stroke diagnosis?: No VTE Prior VTE?: No VTE Risk Level:: Medical - moderate - high VTE Device Contraindication: Treatment Not Indicated VTE Drug Contraindication: N/A - Med Ordered
--- NOTE | 2023-01-09 09:19 | P.EN_ITS ---
Event Note Date of Service: 01/09/23 Event Note: Addiction consult placed Seen by catering administrative assistant, no follow up indicated. Please see RN note for additional details Time Spent With Patient Time: Total time managing care of this patient today ____ minutes.
--- NOTE | 2023-01-09 14:57 | MHC.CM.PN ---
Patient will require another day of IV ABX prior to discharge. Per ID patient may discharge on PO ABX. DP home resumption of [employer]ATION [employer] services. Therapy evals have been requested by RN.
[2023-01-09 15:20] VITALS: BP 165/70; PULSE 64; RESP 20; TEMP 38.1; O2SAT 92
[2023-01-09 16:25] VITALS: TEMP 37.6
[2023-01-10] VITALS: TEMP 37.7
[2023-01-10] MEDS: Enoxaparin Sodium 40 MG/0.4 ML SYRINGE SUBCUT (02:05)
[2023-01-10] MEDS: Acetaminophen 325 MG TABLET 650 MG PO (02:22)
[2023-01-10 02:23] VITALS: BP 164/79; PULSE 70; RESP 18; TEMP 38.3; O2SAT 91
[2023-01-10 03:22] VITALS: TEMP 36.5
[2023-01-10] MEDS: oxyCODONE HCl Immed Release 5 MG TABLET 20 MG PO ×4 (03:56→22:02)
[2023-01-10] MEDS: Levothyroxine Sodium 50 MCG TABLET PO (05:38)
[2023-01-10 07:22] VITALS: BP 137/72; PULSE 62; RESP 18; TEMP 36.1; O2SAT 94
[2023-01-10 08:37] VITALS: BP 137/72; PULSE 62; O2SAT 94
[2023-01-10] MEDS: Losartan Potassium 50 MG TABLET PO (08:44)
[2023-01-10] MEDS: Pregabalin 150 MG CAPSULE PO ×2 (08:44→21:19)
[2023-01-10] MEDS: DULoxetine HCl 60 MG CAPSULE.DR PO ×2 (08:44→21:19)
[2023-01-10] MEDS: Omeprazole 40 MG CAPSULE.DR PO (08:44)
[2023-01-10] MEDS: atenoloL 50 MG TABLET PO ×2 (08:44→21:19)
[2023-01-10] MEDS: buPROPion HCl XL 300 MG TAB.ER.24H PO (08:44)
[2023-01-10] MEDS: predniSONE 1 MG TABLET 4 MG PO (08:45)
[2023-01-10] MEDS: 0.9 % Sodium Chloride Flush 3 ML SYRINGE IVFLUSH ×3 (08:45→21:19)
--- NOTE | 2023-01-10 08:55 | PM.DS ---
DS: Providers Provider Date of Service: 01/11/23 Date of admission: 01/07/23 00:45 Primary care physician: Unknown Physician Consults: 01/08/23 10:11 Consult to Infectious Diseases Routine Consulting Provider: MONICA ORTEGA Reason for consultation: esbl uti 01/08/23 10:13 Addiction Medicine Routine Consulting Provider: Addiction Covering Reason for consultation: ?opiate dependence, abuse DS: Diagnosis Discharge Diagnosis (1) Altered mental status: Status: Acute DS: Summary Hospital Course Hospital Course: from initial hpi: 72-year-old female with pertinent history of essential hypertension, COPD, mood disorder, hypothyroidism, rheumatoid arthritis, gastroesophageal reflux disease, fibromyalgia who was brought to the emergency department for evaluation of agitation and altered mentation. Unable to obtain history from the patient as she is confused. History obtained from ER provider and chart review. As per the son who was present earlier, patient stopped taking her oxycodone several days ago. He she was taking 20 mg of oxycodone 3 times a day. The son also stated that the patient gets confused when she has a urine infection. Patient stopped taking her pain medications as she was throwing up. Unable to obtain review of systems hospital course: Patient was admitted for acute toxic metabolic encephalopathy. This was felt to be due to urinary tract infection from ESBL E coli and possible polypharmacy versus opiate withdrawal. Patient was initially treated with IV ceftriaxone and then transition to meropenem once cultures were received. She was seen by infectious disease recommended discharge on p.o. fosfomycin. Patient did have low-grade fevers on meropenem, likely drug fever, was asymptomatic. Her mental status returned to baseline. She was seen by Addiction Team who recommended continuing pain management as prescribed. For hypotension was continued on atenolol, amlodipine, losartan. For mood disorder was continue antidepressants. Hypothyroidism was continue on Synthroid. Removed arthritis was continued on prednisone, can reach start methotrexate as outpatient. Patient is feeling better, she is not interested in nursing home facility and will be discharged home. Time Spent with Patient Time attestation: Total time managing care of this patient today ____ minutes. Discharge coordination time: Greater than 30 minutes Quality: Safe Use of Opioids Does Pt have an Active Cancer Diagnosis on the Problem List?: No Quality: Stroke Does the patient have a stroke diagnosis?: No Physical Exam Vital Signs: Vital Signs: Last Vital Signs Temp 96.9 F 10/17/23 07:22 Pulse 62 01/10/23 08:37 Resp 18 01/10/23 07:22 BP 137/72 01/10/23 08:37 Pulse Ox 94 01/10/23 08:37 O2 Del Method Room Air 01/10/23 07:22 O2 Flow Rate 2 01/08/23 23:53 BMI result Body Mass Index 32.9 General: AO X 3, no acute distress Resp: CTA bilateral, no accessory muscles used CVS: S1,S2,RRR GI: soft, non tender, non distended Neuro: motor grossly intact, alert Psych: appropriate affect, appropriate insight Discharge Plan Discharge Anticipated Discharge Date/Time: 01/10/23 08:51 Patient Disposition: Home, Self-Care Discharge Diagnosis: uti, ams Referrals: Physician,Unknown J [Physician] - 5 days Discharge Medications: New fluticasone propionate [Flonase Allergy Relief] 50 mcg/actuation spray,suspension 1 spray intranasal BID Qty: 16 0RF Rx Instructions: administer into each nostril fosfomycin tromethamine 3 gram packet 1 packet PO Q OTHER DAY Qty: 1 0RF Continued omeprazole 40 mg capsule,delayed release(DR/EC) 1 cap PO DAILY methotrexate sodium 2.5 mg tablet 10 tab PO MO@1000 prednisone 1 mg tablet 4 tab PO QAM levothyroxine 50 mcg tablet 1 tab PO QAM ergocalciferol (vitamin D2) 1,250 mcg (50,000 unit) capsule 1 cap PO QWEEK albuterol sulfate 90 mcg/actuation HFA aerosol inhaler 2 puff PO Q6H PRN (Reason: wheezing) atenolol 50 mg tablet 1 tab PO BID bupropion HCl 300 mg tablet extended release 24 hr 1 tab PO DAILY bupropion HCl 150 mg tablet extended release 24 hr 1 tab PO DAILY duloxetine 60 mg capsule,delayed release(DR/EC) 1 cap PO BID oxycodone 20 mg tablet 20 - 30 mg PO Q4H furosemide 20 mg tablet 40 mg PO DAILY pregabalin 200 mg capsule 200 mg PO BID Incruse Ellipta 62.5 mcg/actuation blister with device 1 inh inhalation DAILY losartan 50 mg tablet 50 mg PO DAILY prednisone 5 mg tablet 5 - 10 mg PO DAILY PRN (Reason: arthritis flare) Diet: Advance to usual diet Activity on Discharge: As tolerated Stand Alone Forms: Patient Portal Discharge page Care Plan Goals: recovery Health Concerns: esbl uti Plan of Treatment: fosfomycin, continue meds as prescribed Assessment: see above Patient Instructions: Urinary Tract Infection in Women (DC), Sinusitis (ED)
--- NOTE | 2023-01-10 10:40 | MHC.CM.PN ---
Addendum entered by Lani Reyes 01/10/23 11:34: Discharge is on hold today. Pharmacy is getting preauthorization for a discharge medication. The medication will be available tomorrow. Patient will discharge tomorrow to home via BLS. Original Note: IMM 01/09/23 Patient is discharged to home today. BILLING ADJUDICATOR services will resume. A referral has been sent to [facility] options letterpress printing machinist. The case was discussed with Madelin. She plans to meet with the patient this morning. DP home via BLS. Transport is booked for 4pm pick pulling machine operator
--- NOTE | 2023-01-10 11:20 | P.PNIM_ITS ---
Subjective Subjective Date of Service: 01/10/23 Interval History: recovered Physical Exam 2 Vital Signs: Vital Signs: Last Vital Signs Temp 96.9 F 01/10/23 07:22 Pulse 62 01/10/23 08:37 Resp 18 01/10/23 07:22 BP 137/72 01/10/23 08:37 Pulse Ox 94 01/10/23 08:37 O2 Del Method Room Air 01/10/23 07:22 O2 Flow Rate 2 01/08/23 23:53 BMI result Body Mass Index 32.9 General: AO X 3, no acute distress Resp: CTA bilateral, no accessory muscles used CVS: S1,S2,RRR GI: soft, non tender, non distended Neuro: motor grossly intact, alert Psych: appropriate affect, appropriate insight Objective Data Active Medications Acetaminophen (Acetaminophen 325 Mg Tablet) 650 mg PO Q6H PRN PRN Reason: Pain, Mild (Pain Scale 1-3) Last Admin: 01/10/23 02:22 Dose: 650 mg Documented By: GHAZALA Acetaminophen (Acetaminophen Supp 650 Mg Supp.Rect) 650 mg CO Q6H PRN PRN Reason: Pain, Mild (Pain Scale 1-3) Albuterol Sulfate (Albuterol Sulfate 90 Mcg 8 Gm Inhaler) 2 puff INHALE Q6H PRN PRN Reason: wheezing Atenolol (Atenolol 50 Mg Tablet) 50 mg PO BID [facility]; Protocol Last Admin: 01/10/23 08:44 Dose: 50 mg Documented By: MARK Bupropion HCl (Bupropion Hcl Xl 150 Mg Tab.Er.24h) 150 mg PO DAILY PRN PRN Reason: Pain, Severe Bupropion HCl (Bupropion Hcl Xl 300 Mg Tab.Er.24h) 300 mg PO DAILY [facility] Last Admin: 01/10/23 08:44 Dose: 300 mg Documented By: MARK Duloxetine HCl (Duloxetine Hcl 60 Mg Capsule.Dr) 60 mg PO BID [facility] Last Admin: 01/10/23 08:44 Dose: 60 mg Documented By: MARK Enoxaparin Sodium (Enoxaparin Sodium 40 Mg/0.4 Ml Syringe) 40 mg SUBCUT Q24H [facility] Last Admin: 01/10/23 02:05 Dose: 40 mg Documented By: GHAZALA Ergocalciferol (Ergocalciferol (Vitamin D2) 1,250 Mcg Capsule) 1,250 mcg PO Q7D [facility] Last Admin: 01/07/23 10:43 Dose: 1,250 mcg Documented By: LAZARA Levothyroxine Sodium (Levothyroxine Sodium 50 Mcg Tablet) 50 mcg PO DAILY@0630 [facility] Last Admin: 01/10/23 05:38 Dose: 50 mcg Documented By: GHAZALA Losartan Potassium (Losartan Potassium 50 Mg Tablet) 50 mg PO DAILY [facility]; Protocol Last Admin: 01/10/23 08:44 Dose: 50 mg Documented By: MARK Melatonin (Melatonin 3 Mg Tablet) 6 mg PO BEDTIME PRN PRN Reason: Insomnia Last Admin: 01/07/23 21:23 Dose: 6 mg Documented By: MANDO Omeprazole (Omeprazole 40 Mg Capsule.) 40 mg PO DAILY [facility] Last Admin: 01/10/23 08:44 Dose: 40 mg Documented By: MARK Ondansetron HCl (Ondansetron Hcl 4 Mg/2 Ml Vial) 4 mg IVPUSH Q8H PRN PRN Reason: Nausea and Vomiting Oxycodone HCl (Oxycodone Hcl Immed Release 5 Mg Tablet) 20 mg PO Q6H [facility] Last Admin: 01/10/23 10:20 Dose: 20 mg Documented By: MARK Prednisone (Prednisone 1 Mg Tablet) 4 mg PO DAILY [facility] Last Admin: 01/10/23 08:45 Dose: 4 mg Documented By: MARK Prednisone (Prednisone 5 Mg Tablet) 5 mg PO DAILY PRN PRN Reason: FLAIRS Pregabalin (Pregabalin 150 Mg Capsule) 150 mg PO BID [facility] Last Admin: 01/10/23 08:44 Dose: 150 mg Documented By: MARK Sodium Chloride (0.9 % Sodium Chloride Flush 3 Ml Syringe) 3 ml IVFLUSH QSHIFT [facility] Last Admin: 01/10/23 08:45 Dose: 3 ml Documented By: MARK Labs 01/09/23 06:18 01/09/23 06:18 Assessment and Plan (1) Altered mental status: Status: Acute Plan 72F PMH htn, copd, mood disorder, hypothyroid, RA, gerd, fibromyalgia presented with ams Acute toxic encephalopathy likely due to uti and polypharmcy vs withdrawal back to baseline restarted oxycodone at 20mg q6h addiction eval appreciated UTI with ESBL ecoli meropenem causing drug fever, will hold, plan for fosfomycin Hypertension Atenolol, amlodipine, losartan Mood disorder Continue antidepressants Hypothyroid synthroid RA prednisone holding MTX dvt prophylaxis - lovenox full cdoe reason for continued hospitalization: awaiting fosfomycin auth Time Spent With Patient Time: Total time managing care of this patient today ____ minutes. Quality Stroke Does the patient have a stroke diagnosis?: No VTE Prior VTE?: No VTE Risk Level:: Medical - moderate - high VTE Device Contraindication: Treatment Not Indicated VTE Drug Contraindication: N/A - Med Ordered
[2023-01-10 16:00] VITALS: BP 162/71; PULSE 69; RESP 18; TEMP 36.6; O2SAT 93
--- NOTE | 2023-01-10 18:20 | PC.NURSE ---
MD Moreno contacted to clarify Meropenem discontinuation, per abx discontinued to asses for signs of drug fever. Pt BP continues to be elevated MD augustin.
[2023-01-11] VITALS: BP 135/63; PULSE 67; RESP 18; TEMP 36.3; O2SAT 96
[2023-01-11] MEDS: Enoxaparin Sodium 40 MG/0.4 ML SYRINGE SUBCUT (01:04)
[2023-01-11] MEDS: oxyCODONE HCl Immed Release 5 MG TABLET 20 MG PO ×4 (03:53→21:34)
[2023-01-11] MEDS: Levothyroxine Sodium 50 MCG TABLET PO (06:09)
[2023-01-11 08:00] VITALS: BP 154/60; PULSE 80; RESP 16; TEMP 36.3; O2SAT 94
[2023-01-11] MEDS: Omeprazole 40 MG CAPSULE.DR PO (09:17)
[2023-01-11] MEDS: 0.9 % Sodium Chloride Flush 3 ML SYRINGE IVFLUSH ×3 (09:17→21:33)
[2023-01-11] MEDS: DULoxetine HCl 60 MG CAPSULE.DR PO ×2 (09:17→21:34)
[2023-01-11] MEDS: Losartan Potassium 50 MG TABLET PO (09:17)
[2023-01-11] MEDS: predniSONE 1 MG TABLET 4 MG PO (09:17)
[2023-01-11] MEDS: atenoloL 50 MG TABLET PO ×2 (09:17→21:33)
[2023-01-11] MEDS: buPROPion HCl XL 300 MG TAB.ER.24H PO (09:18)
[2023-01-11] MEDS: Pregabalin 150 MG CAPSULE PO ×2 (09:18→21:33)
--- NOTE | 2023-01-11 14:05 | MHC.CM.PN ---
Addendum entered by Lani Reyes 01/11/23 16:56: The preauthorization for Fosfomycin was not obtained prior to close of business. The patient was told by her insurance customer service specialist, that the med has been approved. [facility] pharmacy was contacted. The pharmacy consultant stated that they are waiting on insurance. The Patient's dtr Suys has been notified in the delay in discharge. 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 The patient will transport via BLS. Original Note: Patient is planned for discharge per MD rounds. The Pre auth has not been received. radiographic technologist came up to speak with MD. He was instructed to call Manfred in the pharmacy.
--- NOTE | 2023-01-11 14:24 | HO.PM.IMPN ---
Subjective Subjective Date of Service: 01/11/23 Interval History: recovered Physical Exam Vital Signs: Vital Signs: Last Vital Signs Temp 97.3 F 01/11/23 08:00 Pulse 80 01/11/23 08:00 Resp 16 01/11/23 08:00 BP 154/60 H 01/11/23 08:00 Pulse Ox 94 01/11/23 08:00 O2 Del Method Room Air 01/11/23 08:00 O2 Flow Rate 2 01/11/23 00:00 BMI result Body Mass Index 32.9 General: AO X 3, no acute distress Resp: CTA bilateral, no accessory muscles used CVS: S1,S2,RRR GI: soft, non tender, non distended Neuro: motor grossly intact, alert Psych: appropriate affect, appropriate insight Objective Data Active Medications Acetaminophen (Acetaminophen 325 Mg Tablet) 650 mg PO Q6H PRN PRN Reason: Pain, Mild (Pain Scale 1-3) Last Admin: 01/10/23 02:22 Dose: 650 mg Documented By: GHAZALA Acetaminophen (Acetaminophen Supp 650 Mg Supp.Rect) 650 mg MA Q6H PRN PRN Reason: Pain, Mild (Pain Scale 1-3) Albuterol Sulfate (Albuterol Sulfate 90 Mcg 8 Gm Inhaler) 2 puff INHALE Q6H PRN PRN Reason: wheezing Atenolol (Atenolol 50 Mg Tablet) 50 mg PO BID [facility]; Protocol Last Admin: 01/11/23 09:17 Dose: 50 mg Documented By: LAZARA Bupropion HCl (Bupropion Hcl Xl 150 Mg Tab.Er.24h) 150 mg PO DAILY PRN PRN Reason: Pain, Severe Bupropion HCl (Bupropion Hcl Xl 300 Mg Tab.Er.24h) 300 mg PO DAILY [facility] Last Admin: 01/11/23 09:18 Dose: 300 mg Documented By: LAZARA Duloxetine HCl (Duloxetine Hcl 60 Mg Capsule.Dr) 60 mg PO BID [facility] Last Admin: 01/11/23 09:17 Dose: 60 mg Documented By: LAZARA Enoxaparin Sodium (Enoxaparin Sodium 40 Mg/0.4 Ml Syringe) 40 mg SUBCUT Q24H [facility] Last Admin: 01/11/23 01:04 Dose: 40 mg Documented By: GHAZALA Ergocalciferol (Ergocalciferol (Vitamin D2) 1,250 Mcg Capsule) 1,250 mcg PO Q7D [facility] Last Admin: 01/07/23 10:43 Dose: 1,250 mcg Documented By: LAZARA Levothyroxine Sodium (Levothyroxine Sodium 50 Mcg Tablet) 50 mcg PO DAILY@0630 [facility] Last Admin: 01/11/23 06:09 Dose: 50 mcg Documented By: GHAZALA Losartan Potassium (Losartan Potassium 50 Mg Tablet) 50 mg PO DAILY [facility]; Protocol Last Admin: 01/11/23 09:17 Dose: 50 mg Documented By: LAZARA Melatonin (Melatonin 3 Mg Tablet) 6 mg PO BEDTIME PRN PRN Reason: Insomnia Last Admin: 01/07/23 21:23 Dose: 6 mg Documented By: MANDO Omeprazole (Omeprazole 40 Mg Capsule.) 40 mg PO DAILY [facility] Last Admin: 01/11/23 09:17 Dose: 40 mg Documented By: LAZARA Ondansetron HCl (Ondansetron Hcl 4 Mg/2 Ml Vial) 4 mg IVPUSH Q8H PRN PRN Reason: Nausea and Vomiting Oxycodone HCl (Oxycodone Hcl Immed Release 5 Mg Tablet) 20 mg PO Q6H [facility] Last Admin: 01/11/23 10:34 Dose: 20 mg Documented By: LAZARA Prednisone (Prednisone 1 Mg Tablet) 4 mg PO DAILY [facility] Last Admin: 01/11/23 09:17 Dose: 4 mg Documented By: LAZARA Prednisone (Prednisone 5 Mg Tablet) 5 mg PO DAILY PRN PRN Reason: FLAIRS Pregabalin (Pregabalin 150 Mg Capsule) 150 mg PO BID [facility] Last Admin: 01/11/23 09:18 Dose: 150 mg Documented By: LAZARA Sodium Chloride (0.9 % Sodium Chloride Flush 3 Ml Syringe) 3 ml IVFLUSH QSHIFT [facility] Last Admin: 01/11/23 09:17 Dose: 3 ml Documented By: LAZARA Labs 01/09/23 06:18 01/09/23 06:18 Assessment and Plan (1) Altered mental status: Status: Acute Plan 72F PMH htn, copd, mood disorder, hypothyroid, RA, gerd, fibromyalgia presented with ams Acute toxic encephalopathy likely due to uti and polypharmcy vs withdrawal back to baseline restarted oxycodone at 20mg q6h addiction eval appreciated UTI with ESBL ecoli meropenem causing drug fever, will hold, plan for fosfomycin, no furether fevers Hypertension Atenolol, amlodipine, losartan Mood disorder Continue antidepressants Hypothyroid synthroid RA prednisone holding MTX dvt prophylaxis - lovenox full cdoe reason for continued hospitalization: awaiting fosfomycin auth Time Spent With Patient Time: Total time managing care of this patient today ____ minutes. Quality Stroke Does the patient have a stroke diagnosis?: No VTE Prior VTE?: No VTE Risk Level:: Medical - moderate - high VTE Device Contraindication: Treatment Not Indicated VTE Drug Contraindication: N/A - Med Ordered
[2023-01-11 16:00] VITALS: BP 149/67; PULSE 60; RESP 18; TEMP 36.4; O2SAT 93
[2023-01-11] MEDS: Ertapenem Sodium 1 GM in 0.9 % Sodium Chloride 50 ML IV (17:32)
[2023-01-11 23:42] VITALS: BP 149/70; PULSE 69; RESP 17; TEMP 36; O2SAT 95
[2023-01-12] MEDS: Enoxaparin Sodium 40 MG/0.4 ML SYRINGE SUBCUT (01:17)
[2023-01-12] MEDS: oxyCODONE HCl Immed Release 5 MG TABLET 20 MG PO ×3 (04:44→16:16)
[2023-01-12] MEDS: Levothyroxine Sodium 50 MCG TABLET PO (06:01)
[2023-01-12 07:42] VITALS: BP 134/65; PULSE 58; RESP 18; TEMP 36; O2SAT 94
[2023-01-12 09:16] VITALS: PULSE 62; O2SAT 93
[2023-01-12] MEDS: predniSONE 1 MG TABLET 4 MG PO (09:17)
[2023-01-12] MEDS: atenoloL 50 MG TABLET PO (09:17)
[2023-01-12] MEDS: Losartan Potassium 50 MG TABLET PO (09:17)
[2023-01-12] MEDS: Pregabalin 150 MG CAPSULE PO (09:17)
[2023-01-12] MEDS: Omeprazole 40 MG CAPSULE.DR PO (09:17)
[2023-01-12] MEDS: buPROPion HCl XL 300 MG TAB.ER.24H PO (09:17)
[2023-01-12] MEDS: DULoxetine HCl 60 MG CAPSULE.DR PO (09:17)
[2023-01-12] MEDS: 0.9 % Sodium Chloride Flush 3 ML SYRINGE IVFLUSH (09:18)
--- NOTE | 2023-01-12 10:40 | PM.DS ---
DS: Providers Provider Date of Service: 01/12/23 Date of admission: 01/07/23 00:45 Date of discharge: 01/12/23 Primary care physician: Namita Acosta NP Consults: 01/08/23 10:11 Consult to Infectious Diseases Routine Consulting Provider: MONICA ORTEGA Reason for consultation: esbl uti 01/08/23 10:13 Addiction Medicine Routine Consulting Provider: Addiction Covering Reason for consultation: ?opiate dependence, abuse Attending physician on discharge: Garfield Fitzpatrick Discharging clinician: Leticia Scales DS: Diagnosis Discharge Diagnosis (1) Altered mental status: Status: Acute (2) Urinary tract infection: Status: Acute DS: Summary Hospital Course Hospital Course: from initial hpi: 72-year-old female with pertinent history of essential hypertension, COPD, mood disorder, hypothyroidism, rheumatoid arthritis, gastroesophageal reflux disease, fibromyalgia who was brought to the emergency department for evaluation of agitation and altered mentation. Unable to obtain history from the patient as she is confused. History obtained from ER provider and chart review. As per the son who was present earlier, patient stopped taking her oxycodone several days ago. He she was taking 20 mg of oxycodone 3 times a day. The son also stated that the patient gets confused when she has a urine infection. Patient stopped taking her pain medications as she was throwing up. Unable to obtain review of systems hospital course: Patient was admitted for acute toxic metabolic encephalopathy. This was felt to be due to urinary tract infection from ESBL E coli and possible polypharmacy versus opiate withdrawal. Patient was initially treated with IV ceftriaxone and then transition to meropenem once cultures were received. She was seen by infectious disease recommended discharge on p.o. fosfomycin. Patient did have low-grade fevers on meropenem, likely drug fever, was asymptomatic. Her mental status returned to baseline. She was seen by Addiction Team who recommended continuing pain management as prescribed. For hypertension was continued on atenolol, amlodipine, losartan. For mood disorder was continue antidepressants. Hypothyroidism was continue on Synthroid. Removed arthritis was continued on prednisone, can reach start methotrexate as outpatient. 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 Time Spent with Patient Time attestation: Total time managing care of this patient today ____ minutes. Discharge coordination time: Greater than 30 minutes Quality: Safe Use of Opioids Does Pt have an Active Cancer Diagnosis on the Problem List?: No Quality: Stroke Does the patient have a stroke diagnosis?: No Physical Exam Vital Signs: Vital Signs: Last Vital Signs Temp 96.8 F 01/12/23 07:42 Pulse 62 01/12/23 09:16 Resp 18 01/12/23 07:42 BP 134/65 01/12/23 07:42 Pulse Ox 93 01/12/23 09:16 O2 Del Method Room Air 01/12/23 09:16 O2 Flow Rate 2 01/11/23 00:00 BMI result Body Mass Index 32.9 Const: General: comfortable, no acute distress, alert and awake Nutritional Appearance: overweight Resp: Effort & Inspection: normal respiratory effort, able to speak in complete sentences, no respiratory distress and no use of accessory muscles Cardio: Rate: regular rate Heart sounds: S1 normal heart sound present and S2 normal heart sound present GI: Inspection: No distended Discharge Plan Discharge Anticipated Discharge Date/Time: 01/12/23 10:45 Patient Disposition: Home, Self-Care Discharge Diagnosis: uti, ams Referrals: Physician,Unknown J [Physician] - 5 days Discharge Medications: New fluticasone propionate [Flonase Allergy Relief] 50 mcg/actuation spray,suspension 1 spray intranasal BID Qty: 16 0RF Rx Instructions: administer into each nostril fosfomycin tromethamine 3 gram packet 1 packet PO Q OTHER DAY Qty: 1 0RF Continued omeprazole 40 mg capsule,delayed release(DR/EC) 1 cap PO DAILY methotrexate sodium 2.5 mg tablet 10 tab PO MO@1000 prednisone 1 mg tablet 4 tab PO QAM levothyroxine 50 mcg tablet 1 tab PO QAM ergocalciferol (vitamin D2) 1,250 mcg (50,000 unit) capsule 1 cap PO QWEEK albuterol sulfate 90 mcg/actuation HFA aerosol inhaler 2 puff PO Q6H PRN (Reason: wheezing) atenolol 50 mg tablet 1 tab PO BID bupropion HCl 300 mg tablet extended release 24 hr 1 tab PO DAILY bupropion HCl 150 mg tablet extended release 24 hr 1 tab PO DAILY duloxetine 60 mg capsule,delayed release(DR/EC) 1 cap PO BID oxycodone 20 mg tablet 20 - 30 mg PO Q4H furosemide 20 mg tablet 40 mg PO DAILY pregabalin 200 mg capsule 200 mg PO BID Incruse Ellipta 62.5 mcg/actuation blister with device 1 inh inhalation DAILY losartan 50 mg tablet 50 mg PO DAILY prednisone 5 mg tablet 5 - 10 mg PO DAILY PRN (Reason: arthritis flare) Discharge Orders: Discharge Order (Routine); Ordered 01/12/23 Ordered By: Leticia Scales Diet: Advance to usual diet Activity on Discharge: As tolerated Stand Alone Forms: Patient Portal Discharge page Care Plan Goals: recovery Health Concerns: esbl uti Plan of Treatment: complete antibiotic fosfomycin as prescribed, continue meds as prescribed call to schedule follow up appointment with PCP Assessment: see above Patient Instructions: Urinary Tract Infection in Women (DC), Sinusitis (ED)
--- NOTE | 2023-01-12 15:40 | MHC.CM.PN ---
Addendum entered by Cassy Machuca 01/12/23 15:44: IMM ADDRESSED Original Note: DP: PT HAS BEEN MEDICALLY CLEARED FOR DC HOME WITH RESUMPTION OF ACCESS REP SERVICES THROUGH [facility]. BLS TRANSPORT BOOKED FOR 5:30 PM VIA [facility]. PT/DAUGHTER NOA ZAMARRIPA. RN AWARE. VERIFICATION WITH [facility] THAT PRE AUTH FOR MED WAS OBTAINED AND DELIVERED. PA AWARE
[2023-01-12 15:57] VITALS: BP 136/62; PULSE 53; RESP 18; TEMP 36.2; O2SAT 92
== END 2023-01-12 19:43 | disposition home or self-care (01) | DRG 689 ==
LOC: HO.ED 01-07 00:44 → HO.EDOVER 01-07 00:57 → HO.S3 01-07 03:46
PROVIDERS: Internal Medicine; Physician Assistant; Admitting Provider Student in an Organized Health Care Education/Training Program; Emergency Provider Emergency Medicine Emergency Medical Services; PCP Nurse Practitioner Adult Health; Visit Provider Physician Assistant Medical
DX: N39.0 Urinary tract infection, site not specified (principal); G92.8 Other toxic encephalopathy; F11.23 Opioid dependence with withdrawal; Z16.12 Extended spectrum beta lactamase (ESBL) resistance; B96.20 Unspecified Escherichia coli [E. coli] as the cause of diseases classified elsewhere; M06.9 Rheumatoid arthritis, unspecified; F39 Unspecified mood [affective] disorder; M79.7 Fibromyalgia; E03.9 Hypothyroidism, unspecified; J44.9 Chronic obstructive pulmonary disease, unspecified; I10 Essential (primary) hypertension; Z79.51 Long term (current) use of inhaled steroids; Z91.148 Patient's other noncompliance with medication regimen for other reason; Z79.631 Long term (current) use of antimetabolite agent; Z79.890 Hormone replacement therapy; Z79.899 Other long term (current) drug therapy
CPT/HCPCS: 36415; 70450; 71045; 80048; 80053; 81001; 83690; 83735; 85025; 85027; 87086; 87088; 87186; 93005; 97162; 97166; 97535; 99285; J0696; J1200; J1335; J1650; J2060; J2185; J2270; J2359

== ENCOUNTER → 2023-01-07 00:45 | Outpatient (BNV) | payer MEDICARE, MEDICAID, SELFPAY | PROVIDERS: Admitting Provider Student in an Organized Health Care Education/Training Program; Emergency Provider Emergency Medicine Emergency Medical Services; Visit Provider Student in an Organized Health Care Education/Training Program | DX: R41.82 Altered mental status, unspecified (principal); N39.0 Urinary tract infection, site not specified | CPT/HCPCS: 99222; 99231; 99232; 99239; 99499 ==

== ENCOUNTER 2023-08-02 09:31 | Emergency (ER) | payer MEDICARE, MEDICAID, SELFPAY ==
[2023-08-02] VITALS (9 sets, daily range): BP systolic 151–197; BP diastolic 75–98; PULSE 61–72; RESP 14–20; TEMP 36.7–36.8; O2SAT 94–99; BMI 31.1
--- NOTE | ~2023-08-02 | CT_ITS ---
EXAMINATION: CT ABDOMEN AND PELVIS WITH CONTRAST CLINICAL INFORMATION: Lower abdominal pain. Diarrhea. Vomiting. COMPARISON: 11/14/2020 TECHNIQUE: Multidetector volumetric images were obtained from the superior aspect of the liver through the pubic symphysis following administration 85 mL of Omnipaque 350 intravenous contrast. Sagittal and coronal reformatted images were obtained on the technologist's workstation. Oral contrast: No This CT examination was performed using dose optimization techniques as appropriate, variously including the following: *Automated exposure control *Adjustment of mA and/or kV according to patient size (this includes techniques or standardized protocols for targeted exams where dose is matched to indication/reason for exam; i.e. extremities or head) *Use of iterative reconstruction technique DLP: 578 mGy-cm FINDINGS: LUNG BASES: Extensive atherosclerotic changes of the descending thoracic aorta which measures 3.6 x 3.7 cm at the diaphragmatic hiatus. No pleural or pericardial effusion. LIVER, GALLBLADDER, AND BILIARY TREE: The liver is normal in size and contour. No focal hepatic lesion or biliary ductal dilatation is present. The gallbladder is unremarkable with no evidence of radiopaque gallstones, gallbladder wall thickening, or obvious pericholecystic inflammatory changes. PANCREAS: No ductal dilatation. SPLEEN: Not enlarged. ADRENAL GLANDS: 2.1 x 1.2 cm left adrenal nodule. Right adrenal gland is unremarkable. KIDNEYS AND URETERS: Atrophic left kidney. Bilateral renal cysts for which no further imaging follow-up is needed. There are indeterminate hypodense lesions at the lower pole of the right kidney measuring 1.8 cm, 1.6 cm and 1.4 cm. Nonspecific perinephric stranding. No hydronephrosis. BLADDER: Unremarkable. GASTROINTESTINAL TRACT: Small and large bowel loops are of normal caliber. No small bowel obstruction. Appendix is within normal limits. ABDOMINAL WALL: No significant hernia is appreciated. LYMPH NODES: No bulky lymphadenopathy. VASCULAR: Infrarenal abdominal aorta measures 3.5 x 3.2 cm. Possible calcified dissection within the infrarenal abdominal aorta. PELVIC VISCERA: No large adnexal masses are appreciated. OSSEOUS STRUCTURES: No destructive bone lesions. CT/CT abdomen pelvis w IV con IMPRESSION: Indeterminate hypodense lesions lower pole right kidney measuring 1.8 cm, 1.6 cm and 1.[address] renal mass protocol recommended for further characterization. 2.1 x 1.2 cm left adrenal nodule. Previously this was characterized as an adenoma on 11/14/2020. Recommend consideration of laboratory evaluation for possible pheochromocytoma and then subsequent evaluation with Adrenal Protocol CT. Infrarenal abdominal aorta measures 3.5 x 3.2 cm. Recommend follow-up every 2 years. Reference: J Am Walter Radiol 2013; 10 (10): 789-794.
--- NOTE | 2023-08-02 09:39 | ED_ITS ---
HPI - Nausea/Vomiting/Diarrhea General Chief complaint: Nausea/Vomiting/Diarrhea Stated complaint: N/V/D, BLE EDEMA PER EMS Time Seen by Provider: 08/02/23 09:39 Source: patient and EMS Mode of arrival: EMS Limitations: no limitations History of Present Illness HPI Narrative: 73-year-old wheelchair bound female with a history of HTN, COPD, mood disorder, hypothyroidism, severe RA on chronic opiates, GERD, fibromyalgia, ESBL E. coli UTI in Dec 2022, CHF, hx osteomyelitis left 5th metatarsal head who presents to the ER via EMS from home for evaluation of acute onset of nausea, vomiting, diarrhea that started last night around 19:00. Patient states she developed nausea and dry heaving last night. She did not eat any dinner. She had about 8 episodes of loose, nonbloody diarrhea overnight. She had ongoing nausea and dry heaving. She now developed lower abdominal discomfort. She reports history of UTIs in the past which have presented with nausea and vomiting. She denies getting typical dysuria, urgency or frequency with her urinary tract infections. She denies any fever or chills at home. She admits to taking decreased amount of Lasix due to increased urination. Her legs are slightly more swollen than usual. She denies any shortness a breath or chest pain. MD elicited complaint: nausea, vomiting and diarrhea Onset (ago): hour(s) (15) Description of diarrhea: loose Associated nausea: Yes Associated abdominal pain: Yes Location of pain: RLQ, LLQ and suprapubic Severity: moderate Quality: aching Exacerbating factors: vomiting Relieving factors: none Associated symptoms: malaise, nausea/vomiting and weakness Related Data Home Medications ?Medication ?Instructions ?Recorded ?Confirmed albuterol sulfate 90 mcg/actuation 2 puff PO Q6H PRN wheezing 08/23/21 01/06/23 aerosol inhaler atenolol 50 mg tablet 1 tab PO BID 08/23/21 01/06/23 bupropion HCl 150 mg 24 hr tablet, 1 tab PO DAILY 08/23/21 01/06/23 extended release bupropion HCl 300 mg 24 hr tablet, 1 tab PO DAILY 08/23/21 01/06/23 extended release duloxetine 60 mg capsule,delayed 1 cap PO BID 08/23/21 01/06/23 release ergocalciferol (vitamin D2) 1,250 1 cap PO QWEEK 08/23/21 01/06/23 mcg (50,000 unit) capsule levothyroxine 50 mcg tablet 1 tab PO QAM 08/23/21 01/06/23 methotrexate sodium 2.5 mg tablet 10 tab PO MO@1000 08/23/21 01/06/23 omeprazole 40 mg capsule,delayed 1 cap PO DAILY 08/23/21 01/06/23 release oxycodone 20 mg tablet 20 - 30 mg PO Q4H Pain 08/23/21 01/07/23 prednisone 1 mg tablet 4 tab PO QAM 08/23/21 01/06/23 losartan 50 mg tablet 50 mg PO DAILY 02/16/22 01/06/23 prednisone 5 mg tablet 5 - 10 mg PO DAILY PRN arthritis 02/16/22 01/07/23 flare furosemide 20 mg tablet 40 mg PO DAILY 01/07/23 01/07/23 pregabalin 200 mg capsule 200 mg PO BID 01/07/23 01/07/23 umeclidinium 62.5 mcg/actuation 1 inh inhalation DAILY 01/07/23 01/07/23 blister powder for inhalation (Incruse Ellipta) Previous Rx's ?Medication ?Instructions ?Recorded fluticasone propionate 50 1 spray intranasal BID #16 grams 01/06/23 mcg/actuation nasal spray,suspension (Flonase Allergy Relief) fosfomycin tromethamine 3 gram 1 packet PO Q OTHER DAY 3 doses #1 01/10/23 oral packet ea ondansetron 4 mg disintegrating 4 mg PO Q8H PRN nausea and 08/02/23 tablet vomiting #10 tabs Allergies Allergy/AdvReac Type Severity Reaction Status Date / Time lisinopril [LISINOPRIL] Allergy Severe ANAPHYLAXIS Verified 08/02/23 09:52 Sulfa (Sulfonamide Allergy Intermediate RASH Verified 08/02/23 09:52 Antibiotics) [SULFA (SULFONAMIDE ANTIBIOTICS)] tramadol [TRAMADOL] Allergy Intermediate RASH Verified 08/02/23 09:52 Odqdyss-[id number]-FxZ Reductase Allergy Rash Verified 08/02/23 09:52 Inhibitor [Bhjacpq-Vaw-Hre Reductase Inhibitor] hydrochlorothiazide [HCTZ] AdvReac Unknown ABNORMAL Verified 08/02/23 09:52 LABS? Review of Systems 2 Review of Systems: Yes all other systems are reviewed and are negative Gastrointestinal: Gastrointestinal: Reports nausea PMFSH Past Medical History Medical History Osteomyelitis COPD (chronic obstructive pulmonary disease) Rheumatoid lung Hypothyroidism Congestive heart failure Fibromyalgia HTN (hypertension) Depression Rheumatoid arthritis Surgical History Hx of prior ablation treatment Knee joint replacement status Family History Family History Father No problems noted. Other Heart disease Social History Social History Household Members: None Housing: Unknown / Unable to assess Do you presently have visiting nurse or other home services: Yes Unable to assess alcohol history related to: Unknown Alcohol intake: never Patient Tobacco Use Status: Former Tobacco user Smoked in Last 30 Days: No Use of substances other than those prescribed or required for medical reasons: No Advance Directives: No Advance Directives Information Provided: Yes Do you have a plan to hurt others: No Plan service: No Physical Exam 2 Vital Signs: Vital Signs: Last Vital Signs Temp 98.1 F 08/02/23 09:48 Pulse 70 08/02/23 14:18 Resp 16 08/02/23 13:11 BP 153/80 H 08/02/23 14:18 Pulse Ox 99 08/02/23 13:11 O2 Del Method Room Air 08/02/23 13:11 BMI result Body Mass Index 31.1 Appearance: Alert. Oriented X3. Appears uncomfortable. Head: normocephalic, atraumatic. Eyes: Pupils equal, round and reactive to light. ENT: Pharynx normal. No tonsillar swelling or exudate. Neck: Normal inspection. Neck supple. CVS: Normal heart rate and rhythm. Pulses normal. Respiratory: No respiratory distress. Breath sounds normal. Abdomen: Obese Soft and nontender. +BS x4 Skin: Skin warm and dry. Normal skin color. Normal skin turgor. No rashes. Extremities: 2+ lower extremity edema of the lower legs. No joint swelling. Neuro/psych: Oriented X 3. Bilateral LE weakness, symmetrical. CN II-XII intact. Normal speech and cognition. Course Reevaluation(s) Reevaluation #1: Upon re-evaluation patient continues to report lower abdominal pain and nausea. She was given 1 dose of morphine and Zofran, will plan on repeating the dose. She is on 20 mg of oral oxycodone every 4 hours at home, has a high threshold for pain medication. She is hypertensive to 197 systolic. She is on atenolol and losartan at home. She had not take her home meds today. She is nauseous and does not think she can take oral antihypertensives at this time. Low-dose IV labetalol will be given and will monitor blood pressure response to IV narcotics and IV labetalol. May need to be repeated if no improvement in blood pressure. She has no chest pain, headache or vision changes at this time. CT scan of her abdomen has been ordered along with stool studies. Time: 11:28 Reevaluation #2: CT scan her abdomen with no significant acute findings. She was given 2nd dose of IV morphine and Zofran with improvement in her pain. She feels much better. She was given her home p.o. atenolol with improvement in her blood pressure as well. She is tolerating p.o.. She would like to go home. She is hemodynamically improved and feeling much better. Tolerating oral intake with no bowel movements while in the emergency department. No vomiting. Comfortable discharge home. Her daughter will check on her today. Return precautions were discussed Time: 15:20 Medications Administered Discontinued Medications Generic Name Dose Route Start Last Admin Trade Name Freq PRN Reason Stop Dose Admin Atenolol 50 mg 08/02/23 14:01 08/02/23 14:18 Atenolol 50 Mg Tablet PO 08/02/23 14:02 50 mg ONCE ONE Administration Protocol Iohexol 100 ml 08/02/23 11:35 08/02/23 11:35 Iohexol 350 Mg/Ml 100 Ml Infus..Btl IV 08/02/23 11:36 85 ml ONCE ONE Administration Labetalol HCl 5 mg 08/02/23 11:24 08/02/23 11:45 Labetalol Hcl 100 Mg/20 Ml Vial IVPUSH 08/02/23 11:25 5 mg ONCE ONE Administration Labetalol HCl 5 mg 08/02/23 13:09 08/02/23 13:19 Labetalol Hcl 100 Mg/20 Ml Vial IVPUSH 08/02/23 13:10 5 mg ONCE ONE Administration Morphine Sulfate 4 mg 08/02/23 10:07 08/02/23 10:40 Morphine Sulfate 4 Mg/Ml Cartridge IVPUSH 08/02/23 10:08 4 mg ONCE ONE Administration Protocol Morphine Sulfate 4 mg 08/02/23 11:23 08/02/23 11:45 Morphine Sulfate 4 Mg/Ml Cartridge IVPUSH 08/02/23 11:24 4 mg ONCE ONE Administration Protocol Ondansetron HCl 4 mg 08/02/23 10:07 08/02/23 10:40 Ondansetron Hcl 4 Mg/2 Ml Vial IVPUSH 08/02/23 10:08 4 mg ONCE ONE Administration Ondansetron HCl 4 mg 08/02/23 11:23 08/02/23 11:45 Ondansetron Hcl 4 Mg/2 Ml Vial IVPUSH 08/02/23 11:24 4 mg ONCE ONE Administration Oxycodone HCl 10 mg 08/02/23 14:01 08/02/23 14:15 Oxycodone Hcl Immed Release 5 Mg Tablet PO 08/02/23 14:02 10 mg ONCE ONE Administration Medical Decision Making Medical Decision Making MDM Narrative: 73-year-old wheelchair bound female with a history of HTN, COPD, mood disorder, hypothyroidism, severe RA on chronic opiates, GERD, fibromyalgia, ESBL E. coli UTI in Dec 2022, CHF, hx osteomyelitis left 5th metatarsal head who presents to the ER via EMS from home for evaluation of acute onset of nausea, vomiting, diarrhea that started last night around 19:00. On arrival to the ER patient is very hypertensive. She was unable to take her oral BP meds. She is also in quite a bit of pain and dry heaving. She was given IV morphine and Zofran x2 along with labetalol x2. CT scan of her abdomen did not show any acute findings, incidental findings of adrenal mass, 3x3cm AAA, renal mass. Her urinalysis is negative for infection. She is tolerating p.o. after being medicated. She is feeling better. She feels well enough to go home. Will send home with Zofran. Return precautions were discussed. Stable for discharge home. Differential Diagnosis Differential Diagnoses: The differential diagnosis associated with the presentation includes gastroenteritis, UTI, colitis, cholecystitis, dehydration, CASSANDRA, bacterial gastroenteritis, bowel obstruction Admission/Observation Consideration of admission/observation: Escalation of care including admission/observation considered Consult Healthcare Provider Management of the patient was discussed with: Hospitalist Briefly discussed with hospitalist, plan was to reassess after medications and patient is feeling improved. Comfortable discharge home Lab Data MDM Lab Attestation statement: I reviewed the patient's lab results. 08/02/23 10:33 08/02/23 10:33 Labs: Lab Results 08/02/23 Range/Units 10:33 WBC 7.2 (4.8-10.8) X10*3/uL RBC 4.51 (4.20-5.50) X10*6/uL Hgb 13.9 (12.0-16.0) g/dl Hct 40.6 (37.0-47.0) % MCV 90.0 (80.0-98.0) fL MCH 30.8 (27.0-33.0) pg MCHC 34.2 (31.0-35.0) g/dl RDW 15.6 (11.0-16.0) % Plt Count 163 (160-400) X10*3/uL MPV 11.3 (9.4-12.3) fL Immature Gran % (Auto) 0.6 H (0.0-0.4) % Neut % (Auto) 67.9 (45-73) % Lymph % (Auto) 24.0 (20-40) % Edwards % (Auto) 6.8 (2-11) % Eos % (Auto) 0.6 (0-4) % Baso % (Auto) 0.1 (0-2) % Lymph # (Auto) 1.7 (1.2-4.9) X10*3/uL Edwards # (Auto) 0.5 (0.1-1.2) X10*3/uL Eos # (Auto) 0.0 (0.0-0.4) X10*3/uL Baso # (Auto) 0.0 (0.0-0.2) X10*3/uL Abs Immat Gran (auto) 0.04 H (0.00-0.03) X10*3/uL Absolute Neuts (auto) 4.9 (2.0-8.3) x10*3/uL Absolute Nucleated RBC 0.000 (0.0-0.012) X10*3/uL Nucleated RBC % (auto) 0.0 (0.0-0.2) /100WBC Smear Tech's Comments VERIFIED Sodium 140 (135-145) mmol/L Potassium 4.3 (3.3-5.1) mmol/L Chloride 105 (96-108) mmol/L Carbon Dioxide 22 (22-29) mmol/L Anion Gap 17 (12-20) BUN 10 (9-16) mg/dL Creatinine 0.83 (0.5-1.4) mg/dL Estim Creat Clear Calc 71.6 Estimated GFR > 60 Random Glucose 115 (60-115) mg/dL Calcium 9.2 D (8.4-10.2) mg/dL Magnesium 2.1 (1.6-2.6) mg/dL Total Bilirubin 0.3 (0.0-1.0) mg/dL Direct Bilirubin 0.1 (0.0-0.5) mg/dL AST 28 (5-31) U/L ALT 15 (0-31) U/L Alkaline Phosphatase 75 (39-117) U/L B-Natriuretic Peptide 537 H (<100) pg/mL Total Protein 7.7 (6.5-8.0) g/dL Albumin 3.8 (3.5-5.0) g/dL Lipase 9 (8-78) U/L Urine Color Yellow Urine Appearance Clear Urine pH 8.5 (5.0-9.0) Ur Specific [place] 1.015 (1.005-1.025) Urine Protein 30 (1+) H (Neg-Trace) mg/dL Urine Glucose (UA) Negative (Negative) mg/dL Urine Ketones Negative (Negative) mg/dL Urine Blood Negative (Negative) Urine Nitrite Negative (Negative) Ur Leukocyte Esterase Negative (Negative) Urine RBC 0-2 (0-2) /HPF Urine WBC 6-10 H (0-5) /HPF Ur Squamous Epith Cells 0-2 (0-2) /HPF Urine Bacteria None Seen (None Seen) Hyaline Casts 0-2 (0-2) /LPF Independent Interpretation I performed an independent interpretation of an: CT Scan Interpretation: CT scan without any dilated loops of bowel are evidence of obstruction, agree with radiology read Radiology Impression Discussion of test interpretation with radiology: I have reviewed the radiologist's reading. Radiologist Impression: CT/CT abdomen pelvis w IV con IMPRESSION: Indeterminate hypodense lesions lower pole right kidney measuring 1.8 cm, 1.6 cm and 1.[address] renal mass protocol recommended for further characterization. 2.1 x 1.2 cm left adrenal nodule. Previously this was characterized as an adenoma on 11/14/2020. Recommend consideration of laboratory evaluation for possible pheochromocytoma and then subsequent evaluation with Adrenal Protocol CT. Infrarenal abdominal aorta measures 3.5 x 3.2 cm. Recommend follow-up every 2 years. Independent Historian Clinical information obtained from an independent historian. History obtained from or confirmed by: EMS External Record Review External record reviewed: Outpatient record, Prior outpatient labs and Prior outpatient radiology Prescription Management I considered prescription management with: Pain Medication and Antibiotic Chronic Conditions Patient?s care impacted by: Other (CHF, RA) Critical Care Time Critical Care Time Critical Care Time: Yes Total Critical Care Time: 49 Attestation: I have personally provided critical care time exclusive of time spent on separately billable procedures. Time includes review of lab data, radiology results, discussion with consultants, and monitoring for potential decompensation. Intervention performed as documented. Discharge Plan Discharge Clinical Impression: Gastroenteritis, Hypertension Patient Disposition: Home, Self-Care Instructions: Gastroenteritis (DC), Hypertension (ED) Additional Instructions: You lab workup today was unremarkable. Your CT scan did not show any acute process that would be causing her symptoms. There were a few incidental findings. You can follow-up with your primary care for this. CT scan read is as below. Your urine test was negative for infection. You most likely have a viral GI bug also known as gastroenteritis. Treatment is supportive care, symptoms usually resolve on their own in 48-72 hours. Recommend rest and plenty of oral hydration. Stick to a bland diet like soup and toast while you are not feeling well. Take the prescribed medication as needed for nausea. Recommend over the counter Pepto Bismol or Imodium for upset stomach and diarrhea. Follow up with your doctor as needed. If you develop new or worsening symptoms call 911 or come back to the ER for further evaluation. CT/CT abdomen pelvis w IV con IMPRESSION: Indeterminate hypodense lesions lower pole right kidney measuring 1.8 cm, 1.6 cm and 1.[address] renal mass protocol recommended for further characterization. 2.1 x 1.2 cm left adrenal nodule. Previously this was characterized as an adenoma on 11/14/2020. Recommend consideration of laboratory evaluation for possible pheochromocytoma and then subsequent evaluation with Adrenal Protocol CT. Infrarenal abdominal aorta measures 3.5 x 3.2 cm. Recommend follow-up every 2 years. Prescriptions: New ondansetron 4 mg tablet,disintegrating 4 mg PO Q8H PRN (Reason: nausea and vomiting) Qty: 10 0RF No Action omeprazole 40 mg capsule,delayed release(DR/EC) 1 cap PO DAILY methotrexate sodium 2.5 mg tablet 10 tab PO MO@1000 prednisone 1 mg tablet 4 tab PO QAM levothyroxine 50 mcg tablet 1 tab PO QAM ergocalciferol (vitamin D2) 1,250 mcg (50,000 unit) capsule 1 cap PO QWEEK albuterol sulfate 90 mcg/actuation HFA aerosol inhaler 2 puff PO Q6H PRN (Reason: wheezing) atenolol 50 mg tablet 1 tab PO BID bupropion HCl 300 mg tablet extended release 24 hr 1 tab PO DAILY bupropion HCl 150 mg tablet extended release 24 hr 1 tab PO DAILY duloxetine 60 mg capsule,delayed release(DR/EC) 1 cap PO BID oxycodone 20 mg tablet 20 - 30 mg PO Q4H fluticasone propionate [Flonase Allergy Relief] 50 mcg/actuation spray,suspension 1 spray intranasal BID Qty: 16 0RF Rx Instructions: administer into each nostril furosemide 20 mg tablet 40 mg PO DAILY pregabalin 200 mg capsule 200 mg PO BID Incruse Ellipta 62.5 mcg/actuation blister with device 1 inh inhalation DAILY fosfomycin tromethamine 3 gram packet 1 packet PO Q OTHER DAY Qty: 1 0RF losartan 50 mg tablet 50 mg PO DAILY prednisone 5 mg tablet 5 - 10 mg PO DAILY PRN (Reason: arthritis flare) Referrals: Namita Acosta NP [Primary Care Provider] - Print Language: Romanian
[2023-08-02] MEDS: ondansetron HCL 4 MG/2 ML VIAL IVPUSH ×3 (10:40→18:27)
[2023-08-02] MEDS: Morphine Sulfate 4 MG/ML CARTRIDGE IVPUSH ×2 (10:40→11:45)
[2023-08-02 10:41] LABS: Appearance Urine Clear; Color Urine Yellow; Glucose Urine UA Negative (Negative); Leukocyte Esterase Urine Negative (Negative); Nitrite Urine Negative (Negative); PH 8.5 (5.0-9.0); Specific Gravity - Urine 1.015 (1.005-1.025); UMIC TRIGGER UACC YES; Urine Blood Negative (Negative); Urine Ketones Negative (Negative); Urine Protein 30 (1+) mg/dL (Neg-Trace)
[2023-08-02 10:43] LABS: Bacteria Urine None Seen (None Seen); Hyaline Casts Urine 0-2 /LPF (0-2); RBC Urine 0-2 /HPF (0-2); Squamous Epithelial Cell Urine 0-2 /HPF (0-2); UACC Culture Trigger YES
[2023-08-02 10:47] LABS: Basophils Percent Auto 0.1 % (0-2); Eosinophils Percent Auto 0.6 % (0-4); Hematocrit 40.6 % (37.0-47.0); Hemoglobin 13.9 g/dl (12.0-16.0); Imm Gran Abs Auto 0.04 X10*3/uL (0.00-0.03); Imm Gran Pct Auto 0.6 % (0.0-0.4); Lymphocytes Absolute Auto 1.7 X10*3/uL (1.2-4.9); MANUAL DIFF FLAG SCAN; Mean Corpuscular HGB Conc 34.2 g/dl (31.0-35.0); Mean Corpuscular Hemoglobin 30.8 pg (27.0-33.0); Mean Platelet Volume 11.3 fL (9.4-12.3); Monocytes Absolute Auto 0.5 X10*3/uL (0.1-1.2); Monocytes Percent Auto 6.8 % (2-11); Neutrophils Absolute Auto 4.9 x10*3/uL (2.0-8.3); Neutrophils Percent Auto 67.9 % (45-73); PLT CLUMP 1; Red Blood Count 4.51 X10*6/uL (4.20-5.50); Red Cell Distribution Width 15.6 % (11.0-16.0); SCAN SMEAR FLAG 1
[2023-08-02 10:48] LABS: White Blood Count 7.2 X10*3/uL (4.8-10.8)
[2023-08-02 11:06] LABS: Alanine Aminotransferase 15 U/L (0-31); Albumin Level 3.8 g/dL (3.5-5.0); Alkaline Phosphatase 75 U/L (39-117); Anion Gap 17 (12-20); Aspartate Amino Transferase 28 U/L (5-31); B Type Natriuretic Peptide 537 pg/mL (<100); Bilirubin Direct 0.1 mg/dL (0.0-0.5); Bilirubin Total 0.3 mg/dL (0.0-1.0); Blood Urea Nitrogen 10 mg/dL (9-16); Calcium 9.2 mg/dL (8.4-10.2); Carbon Dioxide 22 mmol/L (22-29); Chloride 105 mmol/L (96-108); Creatinine Clr Calc Pharmacy 71.6; Estimated Glomerular Filt Rate > 60; Glucose Random 115 mg/dL (60-115); Lipase 9 U/L (8-78); Magnesium 2.1 mg/dL (1.6-2.6); Potassium 4.3 mmol/L (3.3-5.1); Sodium 140 mmol/L (135-145); Total Protein 7.7 g/dL (6.5-8.0)
[2023-08-02 11:10] LABS: Platelet Count 163 X10*3/uL (160-400); SLIDE REVIEW VERIFIED
[2023-08-02] MEDS: iohexoL 350 MG/ML 100 ML INFUS..BTL IV (11:35)
[2023-08-02] MEDS: Labetalol HCL 100 MG/20 ML VIAL IVPUSH ×2 (11:45→13:19)
[2023-08-02] MEDS: oxyCODONE HCl Immed Release 5 MG TABLET 10 MG PO ×2 (14:15→18:20)
[2023-08-02] MEDS: atenoloL 50 MG TABLET PO (14:18)
--- NOTE | 2023-08-02 15:38 | PC.NURSE ---
this nurse took report from keysha at 1515, resumed care of patient, pt is currently up for discharge, wheelchair at baseline and will be transported by ems at approx 5pm to home.
--- NOTE | 2023-08-02 18:30 | PC.NURSE ---
pt a&ox3, pt c/o lower extremity pain which she takes meds for at home, provider ordered pain medication as well as nausea medication as pt requested prior to discharge. 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 pt currently awaiting their arrival.
== END 2023-08-02 19:30 | disposition home or self-care (01) ==
PROVIDERS: Physician Assistant; Emergency Provider Emergency Medicine; PCP Nurse Practitioner Adult Health
DX: K52.9 Noninfective gastroenteritis and colitis, unspecified (principal); R10.30 Lower abdominal pain, unspecified; R60.0 Localized edema; R11.2 Nausea with vomiting, unspecified; I11.0 Hypertensive heart disease with heart failure; I50.9 Heart failure, unspecified; J44.9 Chronic obstructive pulmonary disease, unspecified; Z79.899 Other long term (current) drug therapy
CPT/HCPCS: 36415; 74177; 80048; 80076; 81001; 83690; 83735; 83880; 85025; 87086; 96374; 96375; 96376; 99284; 99285; J1920; J2270; J2405; Q9967

== ENCOUNTER 2023-10-13 11:40 | Inpatient (IN) | payer MEDICARE, MEDICAID, SELFPAY ==
[2023-10-13] VITALS (13 sets, daily range): BP systolic 149–251; BP diastolic 70–139; PULSE 53–96; RESP 11–18; TEMP 36.2–37.3; O2SAT 95–100; BMI 32.9; BMI 31.4
--- NOTE | ~2023-10-13 | CT_ITS ---
EXAMINATION: CT HEAD WITHOUT CONTRAST CT ANGIOGRAM HEAD CT ANGIOGRAM NECK CLINICAL INFORMATION: Altered mental status. Headache. Hypertensive. COMPARISON: CT head from 01/06/2023. TECHNIQUE: Initial noncontrast physicist nuclear imaging of the head and neck was performed. Noncontrast head CT was also performed. Test bolus sequences followed by intravenous administration 70 mL of Omnipaque 350. Helical imaging was performed in the axial plane from the aortic arch to the skull vertex. Delayed postcontrast imaging of the head was also performed. The data was processed at the medical imaging technologist's workstation for generation of MIP sequences. Angled MIPs and volume rendered reformatted images were also generated at an offline 3D workstation. Stenoses are assessed in accordance with NASCET criteria unless otherwise indicated. This CT examination was performed using dose optimization techniques as appropriate, variously including the following: *Automated exposure control. *Adjustment of mA and/or kV according to patient size (this includes techniques or standardized protocols for targeted exams where dose is matched to indication/reason for exam; i.e. extremities or head). *Use of iterative reconstruction technique. DLP: 1944 mGy-cm FINDINGS: CT Head: There is no evidence of acute intracranial hemorrhage or edematous territorial infarction. Fletcher-white matter differentiation is preserved. A few foci of hypoattenuation in the periventricular and deep white matter are consistent with mild microangiopathy. Proportional prominence of the ventricles and sulcal spaces without evidence of obstructive hydrocephalus. No abnormal mass effect or midline shift. No extra-axial fluid collections. No pathologic intra-axial enhancement or regional oligemia. No acute soft tissue or osseous abnormalities. Mild mucosal thickening of the paranasal sinuses. The mastoid air cells and middle ear cavities are clear. Bilateral lens extractions. CT Neck: The thyroid gland and remaining cervical soft tissues are within normal limits. Reversal of the normal cervical lordosis centered on C5-C6. Moderate degenerative stepwise anterolisthesis of C2-C5 and C7-T3. Moderate degenerative arthropathy of the atlantodental articulation. Advanced degenerative disc disease from C5-C7. Moderate degenerative disc disease at all additional levels. Facet and uncovertebral joint arthropathy leads to osseous encroachment on the neural foramina from C2-C6. CT Upper Chest: Moderate centrilobular emphysema. Otherwise, the visualized lung apices and upper mediastinum are within normal limits. Neck CTA: Aortic Arch: Normal contour and caliber with moderate irregular mixed calcific and fibrofatty atherosclerotic disease. Two vessel branching pattern of the arch with left common carotid artery arising from the brachiocephalic trunk. Great Vessel Origins: No significant stenosis of the branch origins. Right Common Carotid Artery: No focal stenosis or occlusion. Cervical Right Internal Carotid Artery: Calcific atherosclerotic disease of the carotid bulb and proximal internal carotid artery causing less than 50% stenosis. Retropharyngeal course with prominent tortuosity. Left Common Carotid Artery: No focal stenosis or occlusion. Cervical Left Internal Carotid Artery: Calcific atherosclerotic disease of the carotid bulb and proximal internal carotid artery causing less than 50% stenosis. Retropharyngeal course with moderate tortuosity. Cervical Right Vertebral Artery: Co-dominant. No focal stenosis or occlusion. Cervical Left Vertebral Artery: Co-dominant. No focal stenosis or occlusion. Brain CTA: Intracranial Internal Carotid Arteries: Calcific atherosclerotic disease of the intracranial internal carotid arteries without occlusion or flow-limiting stenosis. Right Anterior Cerebral Artery: Normal A1 segment. Normal opacification of the distal ILENE segments. Left Anterior Cerebral Artery: Normal A1 segment. Normal opacification of the distal ILENE segments. Anterior Communicating Artery: Normal. Right Middle Cerebral Artery: Normal M1 segment of the MCA without focal stenosis or occlusion. Normal arborization of the distal segments. Left Middle Cerebral Artery: Normal M1 segment of the MCA without focal stenosis or occlusion. Normal arborization of the distal segments. Right Vertebral Artery: Normal V4 segment. The posterior inferior cerebellar artery is not well opacified; however, there is no CT evidence of acute occlusion. Left Vertebral Artery: Normal V4 segment. Normal opacification of the proximal segments of the posterior inferior cerebellar artery. Basilar Artery: Normal without focal stenosis or occlusion. Normal appearance of the proximal superior cerebellar arteries. Right Posterior Cerebral Artery: Normal P1 segment. Normal opacification of the distal CENTRAL SUPPLY CLERK segments. Left Posterior Cerebral Artery: Normal P1 segment. Normal opacification of the distal CENTRAL SUPPLY CLERK segments. Normal opacification of the superior sagittal, straight, transverse, and sigmoid sinuses. CT/CT head for stroke IMPRESSION: 1. No evidence of acute intracranial hemorrhage or edematous territorial infarction. Mild underlying microangiopathy and generalized cerebral volume loss. 2. CTA of the head and neck without proximal occlusion or flow-limiting stenosis. Tortuosity of the carotid arteries as may be seen with underlying hypertension. 3. 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 4. Emphysema.
--- NOTE | ~2023-10-13 | CT_ITS ---
EXAMINATION: CT HEAD WITHOUT CONTRAST CT ANGIOGRAM HEAD CT ANGIOGRAM NECK CLINICAL INFORMATION: Altered mental status. Headache. Hypertensive. COMPARISON: CT head from 01/06/2023. TECHNIQUE: Initial noncontrast butt presser imaging of the head and neck was performed. Noncontrast head CT was also performed. Test bolus sequences followed by intravenous administration 70 mL of Omnipaque 350. Helical imaging was performed in the axial plane from the aortic arch to the skull vertex. Delayed postcontrast imaging of the head was also performed. The data was processed at the lead technologist in cytogenetics's workstation for generation of MIP sequences. Angled MIPs and volume rendered reformatted images were also generated at an offline 3D workstation. Stenoses are assessed in accordance with NASCET criteria unless otherwise indicated. This CT examination was performed using dose optimization techniques as appropriate, variously including the following: *Automated exposure control. *Adjustment of mA and/or kV according to patient size (this includes techniques or standardized protocols for targeted exams where dose is matched to indication/reason for exam; i.e. extremities or head). *Use of iterative reconstruction technique. DLP: 1944 mGy-cm FINDINGS: CT Head: There is no evidence of acute intracranial hemorrhage or edematous territorial infarction. Fletcher-white matter differentiation is preserved. A few foci of hypoattenuation in the periventricular and deep white matter are consistent with mild microangiopathy. Proportional prominence of the ventricles and sulcal spaces without evidence of obstructive hydrocephalus. No abnormal mass effect or midline shift. No extra-axial fluid collections. No pathologic intra-axial enhancement or regional oligemia. No acute soft tissue or osseous abnormalities. Mild mucosal thickening of the paranasal sinuses. The mastoid air cells and middle ear cavities are clear. Bilateral lens extractions. CT Neck: The thyroid gland and remaining cervical soft tissues are within normal limits. Reversal of the normal cervical lordosis centered on C5-C6. Moderate degenerative stepwise anterolisthesis of C2-C5 and C7-T3. Moderate degenerative arthropathy of the atlantodental articulation. Advanced degenerative disc disease from C5-C7. Moderate degenerative disc disease at all additional levels. Facet and uncovertebral joint arthropathy leads to osseous encroachment on the neural foramina from C2-C6. CT Upper Chest: Moderate centrilobular emphysema. Otherwise, the visualized lung apices and upper mediastinum are within normal limits. Neck CTA: Aortic Arch: Normal contour and caliber with moderate irregular mixed calcific and fibrofatty atherosclerotic disease. Two vessel branching pattern of the arch with left common carotid artery arising from the brachiocephalic trunk. Great Vessel Origins: No significant stenosis of the branch origins. Right Common Carotid Artery: No focal stenosis or occlusion. Cervical Right Internal Carotid Artery: Calcific atherosclerotic disease of the carotid bulb and proximal internal carotid artery causing less than 50% stenosis. Retropharyngeal course with prominent tortuosity. Left Common Carotid Artery: No focal stenosis or occlusion. Cervical Left Internal Carotid Artery: Calcific atherosclerotic disease of the carotid bulb and proximal internal carotid artery causing less than 50% stenosis. Retropharyngeal course with moderate tortuosity. Cervical Right Vertebral Artery: Co-dominant. No focal stenosis or occlusion. Cervical Left Vertebral Artery: Co-dominant. No focal stenosis or occlusion. Brain CTA: Intracranial Internal Carotid Arteries: Calcific atherosclerotic disease of the intracranial internal carotid arteries without occlusion or flow-limiting stenosis. Right Anterior Cerebral Artery: Normal A1 segment. Normal opacification of the distal IL[place] segments. Left Anterior Cerebral Artery: Normal A1 segment. Normal opacification of the distal IL[place] segments. Anterior Communicating Artery: Normal. Right Middle Cerebral Artery: Normal M1 segment of the MCA without focal stenosis or occlusion. Normal arborization of the distal segments. Left Middle Cerebral Artery: Normal M1 segment of the MCA without focal stenosis or occlusion. Normal arborization of the distal segments. Right Vertebral Artery: Normal V4 segment. The posterior inferior cerebellar artery is not well opacified; however, there is no CT evidence of acute occlusion. Left Vertebral Artery: Normal V4 segment. Normal opacification of the proximal segments of the posterior inferior cerebellar artery. Basilar Artery: Normal without focal stenosis or occlusion. Normal appearance of the proximal superior cerebellar arteries. Right Posterior Cerebral Artery: Normal P1 segment. Normal opacification of the distal [employer]ATELLITE [employer] TECH[employer]ICIAN segments. Left Posterior Cerebral Artery: Normal P1 segment. Normal opacification of the distal [employer]CH[employer]IAN segments. Normal opacification of the superior sagittal, straight, transverse, and sigmoid sinuses. CT/CT angio head neck stroke IMPRESSION: 1. No evidence of acute intracranial hemorrhage or edematous territorial infarction. Mild underlying microangiopathy and generalized cerebral volume loss. 2. CTA of the head and neck without proximal occlusion or flow-limiting stenosis. Tortuosity of the carotid arteries as may be seen with underlying hypertension. 3. 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 4. Emphysema.
--- NOTE | 2023-10-13 11:45 | ECG_ITS ---
Test Reason : htn Blood Pressure : / mmHG Vent. Rate : 087 BPM Atrial Rate : 087 BPM P-R Int : 124 ms QRS Dur : 082 ms QT Int : 404 ms P-R-T Axes : 047 003 046 degrees QTc Int : 486 ms Normal sinus rhythm with sinus arrhythmia Minimal voltage criteria for LVH, may be normal variant ( R in aVL ) Nonspecific ST abnormality Abnormal ECG When compared with ECG of 06-JAN-2023 13:34, No significant change was found Referred By: Daniela Lentz Electronically Signed By:ZAK KWONG MD
--- NOTE | 2023-10-13 12:06 | ED_ITS ---
HPI - General Adult General Chief complaint: Altered Mental Status Stated complaint: CONFUSED POSSIBLE OVERDOSE Time Seen by Provider: 10/13/23 12:01 History of Present Illness ED Provider: Roxy NAVARRETE narrative: The patient is a 73-year-old female who was brought to the hospital from home. Apparently a visiting nurse felt the patient seemed to have an altered mental status. The visiting nurse had seen the patient yesterday and the patient has been at her baseline yesterday. The patient seemed confused and disoriented. She was complaining of a headache but no other complaints. The visiting nurse was concerned about the possibility of a urinary tract infection or possibly oxycodone overuse because the patient has a history of oxycodone overuse. Patient says she is not entirely sure why she is here. She is not sure who it was that called the ambulance. When I asked if she has a visiting nurse she seemed to suggest that she does not have a visiting nurse but has some kind of patient manager critical care. She thought the agency for the patient care tendon might be called [facility]. The patient says that she does not have any significant symptoms although she has a a mild headache. She says she is on medication for hypertension but does not know if she took her medications this morning. The patient denies chest pain or shortness of breath. The patient denies abdominal pain, nausea, vomiting. The patient says that she has chronic problems with right knee pain following a knee fracture that could not be operated on. She says that it is difficult to move the right leg because of pain in the right knee. She says this is chronic. The patient says that she is on methotrexate because of rheumatoid arthritis. The patient can not tell me the month or the year although she could tell me the names of both presidential candidates. She was also able to tell me correctly that she is at [facility]'s Emergency room. Related Data Home Medications ?Medication ?Instructions ?Recorded ?Confirmed albuterol sulfate 90 mcg/actuation 2 puff PO Q6H PRN wheezing 08/23/21 10/13/23 aerosol inhaler atenolol 50 mg tablet 1 tab PO BID 08/23/21 10/13/23 bupropion HCl 150 mg 24 hr tablet, 150 mg PO DAILY 08/23/21 10/13/23 extended release bupropion HCl 300 mg 24 hr tablet, 300 mg PO DAILY 08/23/21 10/13/23 extended release duloxetine 60 mg capsule,delayed 1 cap PO BID 08/23/21 10/13/23 release ergocalciferol (vitamin D2) 1,250 1 cap PO QWEEK 08/23/21 10/13/23 mcg (50,000 unit) capsule levothyroxine 50 mcg tablet 1 tab PO QAM 08/23/21 10/13/23 methotrexate sodium 2.5 mg tablet 10 tab PO MO@1000 08/23/21 10/13/23 omeprazole 40 mg capsule,delayed 1 cap PO DAILY 08/23/21 10/13/23 release oxycodone 20 mg tablet 20 mg PO Q4H Pain 08/23/21 10/13/23 prednisone 1 mg tablet 4 tab PO QAM 08/23/21 10/13/23 losartan 50 mg tablet 50 mg PO DAILY 02/16/22 10/13/23 prednisone 5 mg tablet 5 - 10 mg PO DAILY PRN arthritis 02/16/22 10/13/23 flare furosemide 20 mg tablet 40 mg PO DAILY 01/07/23 10/13/23 pregabalin 200 mg capsule 200 mg PO BID 01/07/23 10/13/23 umeclidinium 62.5 mcg/actuation 1 inh inhalation DAILY 01/07/23 10/13/23 blister powder for inhalation (Incruse Ellipta) folic acid 1 mg tablet 1 mg PO DAILY 10/13/23 Previous Rx's ?Medication ?Instructions ?Recorded fluticasone propionate 50 1 spray intranasal BID #16 grams 01/06/23 mcg/actuation nasal spray,suspension (Flonase Allergy Relief) fosfomycin tromethamine 3 gram 1 packet PO Q OTHER DAY 3 doses #1 01/10/23 oral packet ea ondansetron 4 mg disintegrating 4 mg PO Q8H PRN nausea and 08/02/23 tablet vomiting #10 tabs Allergies Allergy/AdvReac Type Severity Reaction Status Date / Time lisinopril [LISINOPRIL] Allergy Severe ANAPHYLAXIS Verified 10/13/23 11:55 Sulfa (Sulfonamide Allergy Intermediate RASH Verified 08/02/23 09:52 Antibiotics) [SULFA (SULFONAMIDE ANTIBIOTICS)] tramadol [TRAMADOL] Allergy Intermediate RASH Verified 08/02/23 09:52 Wdgrkvy-LGD-LqR Reductase Allergy Rash Verified 08/02/23 09:52 Inhibitor [Kowbctj-Ijj-Rgi Reductase Inhibitor] hydrochlorothiazide [HCTZ] AdvReac Unknown ABNORMAL Verified 08/02/23 09:52 LABS? Review of Systems 2 Review of Systems: Yes all other systems are reviewed and are negative [facility] [place] Past Medical History Medical History (Updated 10/13/23 @ 20:43 by DILIP Christopher) History of ESBL E. coli infection Osteomyelitis COPD (chronic obstructive pulmonary disease) Rheumatoid lung Hypothyroidism Congestive heart failure Fibromyalgia HTN (hypertension) Depression Rheumatoid arthritis Surgical History Hx of prior ablation treatment Knee joint replacement status Family History Family History Father No problems noted. Other Heart disease Social History Social History Household Members: None Housing: Unknown / Unable to assess Do you presently have visiting nurse or other home services: Yes Unable to assess alcohol history related to: Unknown Alcohol intake: never Patient Tobacco Use Status: Former Tobacco user Smoked in Last 30 Days: No Use of substances other than those prescribed or required for medical reasons: No Advance Directives: Yes Advance Directives Information Provided: Yes Advance Directives on File: No Nutrition Risks: No Nutritional Risk service: No Physical Exam ED Vital Signs: Vital Signs - 24 hr 10/13/23 11:50 10/13/23 12:34 10/13/23 12:41 Temperature 98 F Pulse Rate 84 93 86 Respiratory Rate 15 15 11 L Blood Pressure 234/124 H 238/118 H 234/98 H Pulse Oximetry 96 96 97 Oxygen Delivery Method Room Air Room Air Room Air 10/13/23 16:00 10/13/23 16:22 10/13/23 17:18 Temperature 99.2 F Pulse Rate 90 Respiratory Rate Blood Pressure 195/85 H 229/113 H Pulse Oximetry Oxygen Delivery Method 10/13/23 17:18 10/13/23 18:28 Temperature Pulse Rate 70 Respiratory Rate 16 Blood Pressure 229/113 H 149/70 H Pulse Oximetry Oxygen Delivery Method BMI result Body Mass Index 32.9 Const Other: The patient is a chronically ill-appearing 73-year-old who was awake and seems alert she does not appear in acute discomfort or any respiratory distress. She seems mildly confused but does not seem to have an obvious neurological deficit otherwise. HENMT Other: The patient is edentulous. Face is symmetrical. Mucous membranes moist. Tongue is midline. Eyes Other: Pupils are round equal, conjunctivae are clear, extraocular movements are intact. Visual nielsen are intact to confrontation. Neck Other: No JVD is apparent. No neck swelling. No decreased range of motion. Resp Effort & Inspection: normal respiratory effort Auscultation: clear to auscultation bilaterally Cardio Rate: regular rate Rhythm: regular rhythm Heart sounds: S1 normal heart sound present and S2 normal heart sound present GI Other: The patient has a large abdomen. Abdomen is soft and nontender. Skin Other: The skin is dry and unremarkable on much of her body although there is some bluish discoloration to the tips of her toes. This bluish discoloration blanches with pressure. Neuro Other: The patient is awake and alert. She has a pleasant demeanor. She knows that she is at [facility] but can not correctly tell me the month or the year.. She tells me she is 74 years old (she is 73). Pupils are midsize, round, equal. Extraocular movements are intact. Visual nielsen are intact to confrontation. There is no aphasia or dysarthria but sometimes she seems confused.. She has symmetrical strength of the arms and the legs. She says she has trouble moving the right leg because of chronic right knee pain. Sensation is intact throughout. NIH stroke scale is 2 Extrem Other: The patient has some bluish discoloration to the tips of the toes of both feet. The bluish discoloration blanches with pressure. The toes are not particularly tender. The skin otherwise seems to have good integrity. Both feet are warm and seem well-perfused. Medications Administered Generic Name Dose Route Start Last Admin Trade Name Freq PRN Reason Stop Dose Admin Enoxaparin Sodium 40 mg 10/13/23 19:30 10/13/23 21:02 Enoxaparin Sodium 40 Mg/0.4 Ml Syringe SUBCUT 40 mg Q24H EUGENIO Administration Meropenem 1 gm/ Sodium 100 mls @ 200 mls/hr 10/13/23 21:00 10/13/23 21:32 Chloride IV Infused Q8H EUGENIO Infusion Discontinued Medications Generic Name Dose Route Start Last Admin Trade Name Freq PRN Reason Stop Dose Admin Atenolol 50 mg 10/13/23 17:11 10/13/23 17:18 Atenolol 50 Mg Tablet PO 10/13/23 17:12 50 mg ONCE ONE Administration Protocol Clonidine HCl 0.1 mg 10/13/23 16:15 10/13/23 16:22 Clonidine Hcl 0.1 Mg Tablet PO 10/13/23 16:16 0.1 mg ONCE ONE Administration Protocol Ceftriaxone Sodium 1 gm/ 50 mls @ 100 mls/hr 10/13/23 15:11 10/13/23 16:16 Sodium Chloride IV 10/13/23 15:40 Infused ONCE ONE Infusion Iohexol 100 ml 10/13/23 12:21 10/13/23 12:21 Iohexol 350 Mg/Ml 100 Ml Infus..Btl IV 10/13/23 12:22 70 ml ONCE ONE Administration Losartan Potassium 50 mg 10/13/23 17:11 10/13/23 17:18 Losartan Potassium 50 Mg Tablet PO 10/13/23 17:12 50 mg ONCE ONE Administration Protocol Oxycodone HCl 20 mg 10/13/23 15:17 10/13/23 15:26 Oxycodone Hcl Immed Release 5 Mg Tablet PO 10/13/23 15:18 20 mg ONCE ONE Administration Medical Decision Making Medical Decision Making [facility] Narrative: The patient is a 73-year-old woman who was brought to the hospital by ambulance from her home after a CONTOUR BAND SAW OPERATOR V[employer]ICAL thought she seemed confused. On arrival the patient was somewhat confused, quite hypertensive, and complaining of a bit of a headache. She was therefore made a code stroke and had a noncontrast head CT as well as a CT angiogram of the head and neck. These were both negative. The patient also had a medical evaluation with EKG, blood work, and urine testing. The patient initially remained quite hypertensive. The patient's urinalysis is consistent with a possible UTI but her other investigations were unremarkable. The patient was given 1 g of IV ceftriaxone. The patient's lactate was normal. I do not think that she is septic. The patient was given 0.1 mg of clonidine orally for her hypertension but she remained hypertensive. Ultimately was not clear if she had actually taken her antihypertensive this morning and so she was ultimately given 50 mg of atenolol and 50 mg of losartan, her regular medications. The patient's blood pressure improved significantly after that. Ultimately I asked the patient's daughter to come and evaluate the patient. The daughter came to the bedside and feels that her mother is not herself and mildly confused. The patient will therefore be admitted for further evaluation. Lab Data 10/13/23 12:20 10/13/23 12:20 Labs: Lab Results 10/13/23 10/13/23 10/13/23 Range/Units 12:03 12:04 12:20 WBC 9.4 (4.8-10.8) X10*3/uL RBC 4.63 (4.20-5.50) X10*6/uL Hgb 14.7 (12.0-16.0) g/dl Hct 42.5 (37.0-47.0) % MCV 91.8 (80.0-98.0) fL MCH 31.7 (27.0-33.0) pg MCHC 34.6 (31.0-35.0) g/dl RDW 14.3 (11.0-16.0) % Plt Count 226 D (160-400) X10*3/uL MPV 10.1 (9.4-12.3) fL Immature Gran % (Auto) 0.3 (0.0-0.4) % Neut % (Auto) 66.8 (45-73) % Lymph % (Auto) 22.7 (20-40) % [place] % (Auto) 9.2 (2-11) % Eos % (Auto) 0.6 (0-4) % Baso % (Auto) 0.4 (0-2) % Lymph # (Auto) 2.1 (1.2-4.9) X10*3/uL [place] # (Auto) 0.9 (0.1-1.2) X10*3/uL Eos # (Auto) 0.1 (0.0-0.4) X10*3/uL Baso # (Auto) 0.0 (0.0-0.2) X10*3/uL Abs Immat Gran (auto) 0.03 (0.00-0.03) X10*3/uL Absolute Neuts (auto) 6.3 (2.0-8.3) x10*3/uL Absolute Nucleated RBC 0.000 (0.0-0.012) X10*3/uL Nucleated RBC % (auto) 0.0 (0.0-0.2) /100WBC Hold Purple Top SEE NOTE PT 11.6 (11.1-13.3) SEC Whole Blood PT 12.3 (11.1-13.5) sec INR 1.0 (0.9-1.1) Whole Blood INR 1.0 (0.9-1.1) APTT 30.2 (26.0-36.8) SEC Sodium 138 (135-145) mmol/L Potassium 3.5 (3.3-5.1) mmol/L Chloride 100 (96-108) mmol/L Carbon Dioxide 26 (22-29) mmol/L Anion Gap 16 (12-20) BUN 11 (9-16) mg/dL Creatinine 1.02 (0.5-1.4) mg/dL Estim Creat Clear Calc 59.9 Estimated GFR 53 POC Glucose 100 (60-115) mg/dL Random Glucose 111 (60-115) mg/dL Lactic Acid (0.5-2.0) mmol/L Calcium 10.3 H D (8.4-10.2) mg/dL Magnesium 2.0 (1.6-2.6) mg/dL Total Bilirubin 0.5 (0.0-1.0) mg/dL AST 19 D (5-31) U/L ALT 13 (0-31) U/L Alkaline Phosphatase 92 (39-117) U/L Troponin I High Sens 31.1 H (<3.5-17.0) ng/L C-Reactive Protein 2.25 H (< or = 0.50) mg/dL Total Protein 7.9 (6.5-8.0) g/dL Albumin 4.0 (3.5-5.0) g/dL Triglycerides 134 (<150) mg/dL Cholesterol 262 H (<200) mg/dL LDL Cholesterol, Calc 175 H (<100) mg/dL HDL Cholesterol 61 (>40) mg/dL Urine Color Urine Appearance Urine pH (5.0-9.0) Ur Specific [place] (1.005-1.025) Urine Protein (Neg-Trace) mg/dL Urine Glucose (UA) (Negative) mg/dL Urine Ketones (Negative) mg/dL Urine Blood (Negative) Urine Nitrite (Negative) Ur Leukocyte Esterase (Negative) Urine RBC (0-2) /HPF Urine WBC (0-5) /HPF Ur Squamous Epith Cells (0-2) /HPF Urine Bacteria (None Seen) Hyaline Casts (0-2) /LPF Urine Opiates Screen (Not Detect) Ur Buprenorphine Scrn (Not Detect) ng/mL Ur Oxycodone Screen (Not Detect) ng/mL Urine Methadone Screen (Not Detect) ng/mL Urine Fentanyl Screen (Not Detect) Ur Barbiturates Screen (Not Detect) Ur Phencyclidine Scrn (Not Detect) Ur Amphetamines Screen (Not Detect) U Benzodiazepines Scrn (Not Detect) Urine Cocaine Screen (Not Detect) U Marijuana (THC) Screen (Not Detect) Influenza Type A (PCR) (Negative) Influenza Type B (PCR) (Negative) RSV RNA Qual (PCR) (Negative) SARS-CoV-2 RNA (RT-PCR) (Negative) 10/13/23 10/13/23 10/13/23 Range/Units 12:28 14:04 15:08 WBC (4.8-10.8) X10*3/uL RBC (4.20-5.50) X10*6/uL Hgb (12.0-16.0) g/dl Hct (37.0-47.0) % MCV (80.0-98.0) fL MCH (27.0-33.0) pg MCHC (31.0-35.0) g/dl RDW (11.0-16.0) % Plt Count (160-400) X10*3/uL MPV (9.4-12.3) fL Immature Gran % (Auto) (0.0-0.4) % Neut % (Auto) (45-73) % Lymph % (Auto) (20-40) % [place] % (Auto) (2-11) % Eos % (Auto) (0-4) % Baso % (Auto) (0-2) % Lymph # (Auto) (1.2-4.9) X10*3/uL [place] # (Auto) (0.1-1.2) X10*3/uL Eos # (Auto) (0.0-0.4) X10*3/uL Baso # (Auto) (0.0-0.2) X10*3/uL Abs Immat Gran (auto) (0.00-0.03) X10*3/uL Absolute Neuts (auto) (2.0-8.3) x10*3/uL Absolute Nucleated RBC (0.0-0.012) X10*3/uL Nucleated RBC % (auto) (0.0-0.2) /100WBC Hold Purple Top PT (11.1-13.3) SEC Whole Blood PT (11.1-13.5) sec INR (0.9-1.1) Whole Blood INR (0.9-1.1) APTT (26.0-36.8) SEC Sodium (135-145) mmol/L Potassium (3.3-5.1) mmol/L Chloride (96-108) mmol/L Carbon Dioxide (22-29) mmol/L Anion Gap (12-20) BUN (9-16) mg/dL Creatinine (0.5-1.4) mg/dL Estim Creat Clear Calc Estimated GFR POC Glucose (60-115) mg/dL Random Glucose (60-115) mg/dL Lactic Acid 0.9 (0.5-2.0) mmol/L Calcium (8.4-10.2) mg/dL Magnesium (1.6-2.6) mg/dL Total Bilirubin (0.0-1.0) mg/dL AST (5-31) U/L ALT (0-31) U/L Alkaline Phosphatase (39-117) U/L Troponin I High Sens (<3.5-17.0) ng/L C-Reactive Protein (< or = 0.50) mg/dL Total Protein (6.5-8.0) g/dL Albumin (3.5-5.0) g/dL Triglycerides (<150) mg/dL Cholesterol (<200) mg/dL LDL Cholesterol, Calc (<100) mg/dL HDL Cholesterol (>40) mg/dL Urine Color Yellow Urine Appearance Cloudy Urine pH 5.5 (5.0-9.0) Ur Specific [place] >= 1.030 H (1.005-1.025) Urine Protein 100 (2+) H (Neg-Trace) mg/dL Urine Glucose (UA) Negative (Negative) mg/dL Urine Ketones 15 (Negative) mg/dL Urine Blood Small (1+) H (Negative) Urine Nitrite Negative (Negative) Ur Leukocyte Esterase Moderate (2+) H (Negative) Urine RBC 3-5 H (0-2) /HPF Urine WBC >50 H (0-5) /HPF Ur Squamous Epith Cells 0-2 (0-2) /HPF Urine Bacteria 4+ (None Seen) Hyaline Casts 3-5 (0-2) /LPF Urine Opiates Screen POSITIVE H (Not Detect) Ur Buprenorphine Scrn NOT DETECTED (Not Detect) ng/mL Ur Oxycodone Screen POSITIVE H (Not Detect) ng/mL Urine Methadone Screen NOT DETECTED (Not Detect) ng/mL Urine Fentanyl Screen Not Detected (Not Detect) Ur Barbiturates Screen NOT DETECTED (Not Detect) Ur Phencyclidine Scrn NOT DETECTED (Not Detect) Ur Amphetamines Screen NOT DETECTED (Not Detect) U Benzodiazepines Scrn NOT DETECTED (Not Detect) Urine Cocaine Screen NOT DETECTED (Not Detect) U Marijuana (THC) Screen NOT DETECTED (Not Detect) Influenza Type A (PCR) NEGATIVE (Negative) Influenza Type B (PCR) NEGATIVE (Negative) RSV RNA Qual (PCR) NEGATIVE (Negative) SARS-CoV-2 RNA (RT-PCR) NEGATIVE (Negative) Independent Interpretation I performed an independent interpretation of an: EKG Interpretation: EKG at 11:56 shows normal sinus rhythm with a sinus arrhythmia at 87 beats per minute. No definite change from previous EKG. Discharge Plan Discharge Clinical Impression: Altered mental status, Urinary tract infection, Hypertension Patient Disposition: Admitted As Inpatient Interventions: Admission Worksheet (ED) Last Done: 10/13/23 21:53
[2023-10-13 12:07] LABS: Prothrombin Time Whole Bld POC 12.3 sec (11.1-13.5)
[2023-10-13 12:08] LABS: Glucose, Whole Blood 100 mg/dL (60-115)
[2023-10-13] MEDS: iohexoL 350 MG/ML 100 ML INFUS..BTL IV (12:21)
[2023-10-13 12:29] LABS: Basophils Percent Auto 0.4 % (0-2); Eosinophils Absolute Auto 0.1 X10*3/uL (0.0-0.4); Eosinophils Percent Auto 0.6 % (0-4); Hematocrit 42.5 % (37.0-47.0); Hemoglobin 14.7 g/dl (12.0-16.0); Imm Gran Abs Auto 0.03 X10*3/uL (0.00-0.03); Imm Gran Pct Auto 0.3 % (0.0-0.4); Lymphocytes Absolute Auto 2.1 X10*3/uL (1.2-4.9); Lymphocytes Percent Auto 22.7 % (20-40); MANUAL DIFF FLAG NO; Mean Corpuscular HGB Conc 34.6 g/dl (31.0-35.0); Mean Corpuscular Hemoglobin 31.7 pg (27.0-33.0); Mean Corpuscular Volume 91.8 fL (80.0-98.0); Mean Platelet Volume 10.1 fL (9.4-12.3); Monocytes Absolute Auto 0.9 X10*3/uL (0.1-1.2); Monocytes Percent Auto 9.2 % (2-11); Neutrophils Absolute Auto 6.3 x10*3/uL (2.0-8.3); Neutrophils Percent Auto 66.8 % (45-73); Platelet Count 226 X10*3/uL (160-400); Red Blood Count 4.63 X10*6/uL (4.20-5.50); Red Cell Distribution Width 14.3 % (11.0-16.0); White Blood Count 9.4 X10*3/uL (4.8-10.8)
[2023-10-13 12:34] LABS: Prothrombin Time 11.6 SEC (11.1-13.3)
--- NOTE | 2023-10-13 12:36 | PC.NURSE ---
Pt presented from home via EMS, EMS reports visiting nurse on scene called due to pt having AMS (was normal/ alert and oriented yesterday), accurate LKWT is not known. Visiting nurse was concerned for UTI and also the pt taking too many oxycodone due to a past hx. Pt presents alert, oriented to person and place, otherwise very confused, poor historian. Pt not sure why she is here. Breathing even and unlabored, skin warm and dry. BP noted to be very hypertensive. NSR on bedside vehicle monitor technician. Stroke assessment done, pt neg for unilateral weakness, arm drift, slurred speech or facial droop. Pt does endorse headache, denies changes in vision, recent falls or illnesses. MD provider alerted of possible stroke due to BP, AMS and headache. Stroke protocol initiated by Dr. Ramsey.
[2023-10-13 12:37] LABS: Partial Thromboplastin Time 30.2 SEC (26.0-36.8)
[2023-10-13 12:38] LABS: Stroke Lab Use COMPLETE
--- NOTE | 2023-10-13 12:42 | PC.NURSE ---
Pt comes to ED today via EMS from home. Visiting healthcare business analyst was concerned for Pts presentation of confusion. Pt hypertensive (see VS) with c/o headache. She is only oriented to place at this time. Stroke protocol initiated and PT sent for emergent CT imaging. 20g bilat AC Blood labs sent. Awaiting results.
[2023-10-13 13:04] LABS: Anion Gap 16 (12-20); Blood Urea Nitrogen 11 mg/dL (9-16); Calcium 10.3 mg/dL (8.4-10.2); Carbon Dioxide 26 mmol/L (22-29); Chloride 100 mmol/L (96-108); Creatinine Clr Calc Pharmacy 59.9; Estimated Glomerular Filt Rate 53; Glucose Random 111 mg/dL (60-115); Potassium 3.5 mmol/L (3.3-5.1); Sodium 138 mmol/L (135-145)
[2023-10-13 13:07] LABS: Cholesterol 262 mg/dL (<200); HDL Cholesterol 61 mg/dL (>40); LDL Cholesterol Calculated 175 mg/dL (<100); Triglycerides 134 mg/dL (<150)
[2023-10-13 13:13] LABS: Influenza A PCR NEGATIVE (Negative); Influenza B PCR NEGATIVE (Negative); Resp Syncy Virus RNA Qual PCR NEGATIVE (Negative); SARS COV2 PCR INHOUSE NEGATIVE (Negative)
[2023-10-13 13:18] LABS: Troponin-I High Sensitivity 31.1 ng/L (<3.5-17.0)
[2023-10-13 13:45] LABS: Alanine Aminotransferase 13 U/L (0-31); Alkaline Phosphatase 92 U/L (39-117); Aspartate Amino Transferase 19 U/L (5-31); Bilirubin Total 0.5 mg/dL (0.0-1.0); C Reactive Protein 2.25 mg/dL (< or = 0.50); Total Protein 7.9 g/dL (6.5-8.0)
[2023-10-13 14:22] LABS: Appearance Urine Cloudy; Color Urine Yellow; Glucose Urine UA Negative (Negative); Leukocyte Esterase Urine Moderate (2+) (Negative); Nitrite Urine Negative (Negative); PH 5.5 (5.0-9.0); Specific Gravity - Urine >= 1.030 (1.005-1.025); UMIC TRIGGER UACC YES; Urine Blood Small (1+) (Negative); Urine Ketones 15 mg/dL (Negative); Urine Protein 100 (2+) mg/dL (Neg-Trace)
[2023-10-13 14:37] LABS: Bacteria Urine 4+ (None Seen); Squamous Epithelial Cell Urine 0-2 /HPF (0-2); UACC Culture Trigger YES; WBC Urine >50 /HPF (0-5)
[2023-10-13 14:45] LABS: Amphetamine Screen Urine NOT DETECTED (Not Detect); Barbiturates, Urine NOT DETECTED (Not Detect); Benzodiazepines Screen Urine NOT DETECTED (Not Detect); Opiate Screen Urine POSITIVE (Not Detect); Phencyclidine Screen Urine NOT DETECTED (Not Detect)
[2023-10-13 14:46] LABS: Buprenorphine Scr NOT DETECTED (Not Detect); Cannabinoid Screen Urine NOT DETECTED (Not Detect); Cocaine Screen Urine NOT DETECTED (Not Detect); Fentanyl, urine Not Detected (Not Detect); Methadone Screen, Urine NOT DETECTED (Not Detect); Oxycodone Screen Urine POSITIVE (Not Detect)
[2023-10-13] MEDS: oxyCODONE HCl Immed Release 5 MG TABLET 20 MG PO ×2 (15:26→22:02)
[2023-10-13] MEDS: cefTRIAXone sodium 1 GM in 0.9 % Sodium Chloride 50 ML IV (15:27)
[2023-10-13 15:31] LABS: Lactic Acid 0.9 mmol/L (0.5-2.0)
[2023-10-13] MEDS: cloNIDine HCL 0.1 MG TABLET PO (16:22)
[2023-10-13] MEDS: Losartan Potassium 50 MG TABLET PO (17:18)
[2023-10-13] MEDS: atenoloL 50 MG TABLET PO (17:18)
--- NOTE | 2023-10-13 19:36 | P.HPHOSP_ITS ---
History of Present Illness Date of Service: 10/13/23 Attending physician on admission: Eber Lewis Chief Complaint: Altered mental status Pt is a 73-year-old female with a PMH significant for?HTN, COPD, rheumatoid arthritis, hypothyroidism, GERD, fibromyalgia, ESBL UTI, and mood disorder who presents to the ED for evaluation of altered mental status. Patient seen and evaluated where family is at bedside who helps supplement HPI. ?Patient lives alone and is wheelchair-bound, nonambulatory due to osteoarthritis and right fractured knee not amenable to surgery. Has helped from from power driven brush maker who come daily for 2-3 hours to help out with ADLs. WIRE PRODUCTS INSPECTOR today noted patient was lethargic, confused, slow to respond when answering questions, and just ?out of it?. Called EMS to bring patient to hospital for further evaluation. Daughter notes patient has a history of chronic UTIs with similar presentation multiple times in the past. Of note, patient last presented to the hospital with similar symptoms on 01/07-01/12/2023. Was found then to have ESBL E coli UTI. Was started Corina pending and discharged home on p.o. fosfomycin. Patient reports feels slightly nauseous, but has not had any vomiting. Denies fever, chills. No abdominal pain. Denies chest pain/pressure, palpitations. No shortness a breath or difficulty breathing. Of note, patient has likely been medication noncompliant in the past day+ due to acute encephalopathy and forgetting to take her medications. In the ED pt was hypertensive as high as 234/124, with elevated HR 93, and low- grade fever of 99.2. Labs were significant for initial troponin 31.1, CRP 2.25, cholesterol 262, and LDL 175. No leukocytosis. Stable H& H. No significant electrolyte abnormalities. Renal and hepatic function WNL. UA positive for UTI. CT?of head negative for acute intracranial hemorrhage or edematous territorial infarction, though did show mild underlying microangiopathy and generalized cerebral volume loss. EKG demonstrated normal sinus rhythm with sinus arrhythmia and nonspecific ST abnormalities. Pt was treated in the ED with oxycodone 20 mg p.o., ceftriaxone, clonidine, atenolol, and losartan. Pt will be admitted to the hospital for treatment and further evaluation of acute metabolic encephalopathy in the setting of UTI and uncontrolled hypertension. Review of Systems 2 Review of Systems: Confusion, lethargy Nausea, no vomiting Denies chest pain/pressure, palpitations. No shortness a breath or difficulty breathing Denies fever, chills, abdominal pain [facility] Medical History (Updated 10/13/23 @ 20:43 by DILIP Christopher) History of ESBL E. coli infection Osteomyelitis COPD (chronic obstructive pulmonary disease) Rheumatoid lung Hypothyroidism Congestive heart failure Fibromyalgia HTN (hypertension) Depression Rheumatoid arthritis Family History Father No problems noted. Other Heart disease Surgical History Hx of prior ablation treatment Knee joint replacement status Social History Household Members: None Housing: Unknown / Unable to assess Do you presently have visiting nurse or other home services: Yes Unable to assess alcohol history related to: Unknown Alcohol intake: never Patient Tobacco Use Status: Former Tobacco user Smoked in Last 30 Days: No Use of substances other than those prescribed or required for medical reasons: No Advance Directives: Yes Advance Directives Information Provided: Yes Advance Directives on File: No Nutrition Risks: No Nutritional Risk service: No Meds Allergies Allergy/AdvReac Type Severity Reaction Status Date / Time lisinopril [LISINOPRIL] Allergy Severe ANAPHYLAXIS Verified 10/13/23 11:55 Sulfa (Sulfonamide Allergy Intermediate RASH Verified 08/02/23 09:52 Antibiotics) [SULFA (SULFONAMIDE ANTIBIOTICS)] tramadol [TRAMADOL] Allergy Intermediate RASH Verified 08/02/23 09:52 Jkbkiyn-UCJ-JvQ Reductase Allergy Rash Verified 08/02/23 09:52 Inhibitor [Hustzjb-Ctx-Pld Reductase Inhibitor] hydrochlorothiazide [HCTZ] AdvReac Unknown ABNORMAL Verified 08/02/23 09:52 LABS? Active Medications: Current Medications Acetaminophen (Acetaminophen 325 Mg Tablet) 650 mg PO Q6H PRN PRN Reason: Pain, Mild (Pain Scale 1-3), fever or headache Calcium Carbonate (Calcium Carbonate 750 Mg Tab.Chew) 750 mg PO Q4H PRN PRN Reason: Heartburn Enoxaparin Sodium (Enoxaparin Sodium 40 Mg/0.4 Ml Syringe) 40 mg SUBCUT Q24H EUGENIO Ceftriaxone Sodium 1 gm/ (Sodium Chloride) 50 mls @ 100 mls/hr IV Q24H ON LICENSE OF [facility] Magnesium Hydroxide (Milk Of Magnesia 30 Ml Oral.Susp) 30 ml PO DAILY PRN PRN Reason: Constipation Melatonin (Melatonin 3 Mg Tablet) 6 mg PO BEDTIME PRN PRN Reason: Insomnia Ondansetron HCl (Ondansetron Hcl 4 Mg/2 Ml Vial) 4 mg IVPUSH Q8H PRN PRN Reason: Nausea and Vomiting Sodium Chloride (0.9 % Sodium Chloride Flush 3 Ml Syringe) 3 ml IVFLUSH QSHIFT ON LICENSE OF [facility] Home Medications ?Medication ?Instructions ?Recorded ?Confirmed ?Last Taken ?Type albuterol sulfate 90 mcg/actuation 2 puff PO Q6H PRN wheezing 08/23/21 01/06/23 Unknown History aerosol inhaler atenolol 50 mg tablet 1 tab PO BID 08/23/21 01/06/23 Unknown History bupropion HCl 150 mg 24 hr tablet, 1 tab PO DAILY 08/23/21 01/06/23 Unknown History extended release bupropion HCl 300 mg 24 hr tablet, 1 tab PO DAILY 08/23/21 01/06/23 Unknown History extended release duloxetine 60 mg capsule,delayed 1 cap PO BID 08/23/21 01/06/23 Unknown History release ergocalciferol (vitamin D2) 1,250 1 cap PO QWEEK 08/23/21 01/06/23 Unknown History mcg (50,000 unit) capsule levothyroxine 50 mcg tablet 1 tab PO QAM 08/23/21 01/06/23 Unknown History methotrexate sodium 2.5 mg tablet 10 tab PO MO@1000 08/23/21 01/06/23 Unknown History omeprazole 40 mg capsule,delayed 1 cap PO DAILY 08/23/21 01/06/23 Unknown History release oxycodone 20 mg tablet 20 - 30 mg PO Q4H Pain 08/23/21 01/07/23 Unknown History prednisone 1 mg tablet 4 tab PO QAM 08/23/21 01/06/23 Unknown History losartan 50 mg tablet 50 mg PO DAILY 02/16/22 01/06/23 Unknown History prednisone 5 mg tablet 5 - 10 mg PO DAILY PRN arthritis 02/16/22 01/07/23 Unknown History flare furosemide 20 mg tablet 40 mg PO DAILY 01/07/23 01/07/23 Unknown History pregabalin 200 mg capsule 200 mg PO BID 01/07/23 01/07/23 Unknown History umeclidinium 62.5 mcg/actuation 1 inh inhalation DAILY 01/07/23 01/07/23 Unknown History blister powder for inhalation (Incruse Ellipta) Physical Exam 2 Vital Signs and Narrative: Vital Signs: Last Vital Signs Temp 99.2 F 10/13/23 16:00 Pulse 70 10/13/23 18:28 Resp 16 10/13/23 18:28 BP 149/70 H 10/13/23 18:28 Pulse Ox 97 10/13/23 12:41 O2 Del Method Room Air 10/13/23 12:41 BMI result Body Mass Index 32.9 Constitutional: Alert, in no acute distress. Mental Status: Oriented to person, place, and time, but not to situation. Eyes: Pupils are equal, round, and reactive to light. Ear, Nose, and Throat: Oropharynx clear, mucous membranes moist. Ears and nose without deformities. Trachea midline. Respiratory: Clear to auscultation bilaterally but diminished. No wheezing, rales, or rhonchi. Cardiovascular: S1, S2 regular. No murmurs, rubs, or gallops. Gastrointestinal: Abdomen soft, non-tender, non-distended. Normal bowel sounds. Neurologic: Cranial nerves II-XII are grossly intact bilaterally. No focal neurological deficits. Moves all extremities spontaneously. Skin: Warm, dry. Extremities: 1+ bilateral pitting edema. Psychiatric: Normal mood and affect. Results Labs 10/13/23 12:20 10/13/23 12:20 Labs: Laboratory Results - last 24 hr 10/13/23 10/13/23 10/13/23 12:03 12:04 12:20 MCV 91.8 MCH 31.7 MCHC 34.6 RDW 14.3 Plt Count 226 D MPV 10.1 Immature Gran % (Auto) 0.3 Neut % (Auto) 66.8 Lymph % (Auto) 22.7 [place] % (Auto) 9.2 Eos % (Auto) 0.6 Baso % (Auto) 0.4 Lymph # (Auto) 2.1 [place] # (Auto) 0.9 Eos # (Auto) 0.1 Baso # (Auto) 0.0 Abs Immat Gran (auto) 0.03 Absolute Neuts (auto) 6.3 Absolute Nucleated RBC 0.000 Nucleated RBC % (auto) 0.0 Hold Purple Top SEE NOTE PT 11.6 Whole Blood PT 12.3 INR 1.0 Whole Blood INR 1.0 APTT 30.2 Anion Gap 16 Estim Creat Clear Calc 59.9 Estimated GFR 53 POC Glucose 100 Random Glucose 111 Lactic Acid Calcium 10.3 H D Magnesium 2.0 Total Bilirubin 0.5 AST 19 D ALT 13 Alkaline Phosphatase 92 Troponin I High Sens 31.1 H C-Reactive Protein 2.25 H Total Protein 7.9 Albumin 4.0 Triglycerides 134 Cholesterol 262 H LDL Cholesterol, Calc 175 H HDL Cholesterol 61 Urine Color Urine Appearance Urine pH Ur Specific [place] Urine Protein Urine Glucose (UA) Urine Ketones Urine Blood Urine Nitrite Ur Leukocyte Esterase Urine RBC Urine WBC Ur Squamous Epith Cells Urine Bacteria Hyaline Casts Urine Opiates Screen Ur Buprenorphine Scrn Ur Oxycodone Screen Urine Methadone Screen Urine Fentanyl Screen Ur Barbiturates Screen Ur Phencyclidine Scrn Ur Amphetamines Screen U Benzodiazepines Scrn Urine Cocaine Screen U Marijuana (THC) Screen Influenza Type A (PCR) Influenza Type B (PCR) RSV RNA Qual (PCR) SARS-CoV-2 RNA (RT-PCR) 10/13/23 10/13/23 10/13/23 12:28 14:04 15:08 MCV MCH MCHC RDW Plt Count MPV Immature Gran % (Auto) Neut % (Auto) Lymph % (Auto) [place] % (Auto) Eos % (Auto) Baso % (Auto) Lymph # (Auto) [place] # (Auto) Eos # (Auto) Baso # (Auto) Abs Immat Gran (auto) Absolute Neuts (auto) Absolute Nucleated RBC Nucleated RBC % (auto) Hold Purple Top PT Whole Blood PT INR Whole Blood INR APTT Anion Gap Estim Creat Clear Calc Estimated GFR POC Glucose Random Glucose Lactic Acid 0.9 Calcium Magnesium Total Bilirubin AST ALT Alkaline Phosphatase Troponin I High Sens C-Reactive Protein Total Protein Albumin Triglycerides Cholesterol LDL Cholesterol, Calc HDL Cholesterol Urine Color Yellow Urine Appearance Cloudy Urine pH 5.5 Ur Specific [place] >= 1.030 H Urine Protein 100 (2+) H Urine Glucose (UA) Negative Urine Ketones 15 Urine Blood Small (1+) H Urine Nitrite Negative Ur Leukocyte Esterase Moderate (2+) H Urine RBC 3-5 H Urine WBC >50 H Ur Squamous Epith Cells 0-2 Urine Bacteria 4+ Hyaline Casts 3-5 Urine Opiates Screen POSITIVE H Ur Buprenorphine Scrn NOT DETECTED Ur Oxycodone Screen POSITIVE H Urine Methadone Screen NOT DETECTED Urine Fentanyl Screen Not Detected Ur Barbiturates Screen NOT DETECTED Ur Phencyclidine Scrn NOT DETECTED Ur Amphetamines Screen NOT DETECTED U Benzodiazepines Scrn NOT DETECTED Urine Cocaine Screen NOT DETECTED U Marijuana (THC) Screen NOT DETECTED Influenza Type A (PCR) NEGATIVE Influenza Type B (PCR) NEGATIVE RSV RNA Qual (PCR) NEGATIVE SARS-CoV-2 RNA (RT-PCR) NEGATIVE Imaging Radiologist's Impressions: Impressions Head CT 10/13/23 12:14 IMPRESSION: 1. No evidence of acute intracranial hemorrhage or edematous territorial infarction. Mild underlying microangiopathy and generalized cerebral volume loss. 2. CTA of the head and neck without proximal occlusion or flow-limiting stenosis. Tortuosity of the carotid arteries as may be seen with underlying hypertension. 3. 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 4. Emphysema. Head/Neck CTA 10/13/23 12:26 IMPRESSION: 1. No evidence of acute intracranial hemorrhage or edematous territorial infarction. Mild underlying microangiopathy and generalized cerebral volume loss. 2. CTA of the head and neck without proximal occlusion or flow-limiting stenosis. Tortuosity of the carotid arteries as may be seen with underlying hypertension. 3. 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 4. Emphysema. Assessment and Plan (1) Urinary tract infection: Status: Acute (2) Acute metabolic encephalopathy: Status: Acute Plan Pt is a 73-year-old female with a PMH significant for?HTN, COPD, rheumatoid arthritis, hypothyroidism, GERD, fibromyalgia, ESBL UTI, and mood disorder who presents to the ED for evaluation of altered mental status. Pt will be admitted to the hospital for treatment and further evaluation of acute metabolic encephalopathy in the setting of UTI and uncontrolled hypertension. Acute metabolic encephalopathy Likely secondary to UTI Pt with hx of ESBL E coli UTI Patient does not meet sepsis criteria: Elevated HR, but no fever, tachypnea, or leukocytosis; lactic acid WNL at 0.9 Will treat with meropenem, started 10/13/2023 ID consult Follow cultures Hypertensive urgency Pt presented with uncontrolled HTN as high as 238/118 Likely secondary to medication noncompliance due to acute encephalopathy Patient received clonidine, atenolol, and losartan in the ED Continue atenolol, losartan Monitor BP COPD Not in acute exacerbation Continue home inhalers Chronic lower leg edema Continue Lasix Chronic lower back and leg pain Continue home opioids Rheumatoid arthritis Continue methotrexate, prednisone Hypothyroidism Continue levothyroxine Mood disorder Continue bupropion, duloxetine, Full Code Attending:?Dr. Lewis DVT Prophylaxis: Lovenox Pt will require a hospitalization of at least two nights for treatment of? acute metabolic encephalopathy in the setting of UTI and uncontrolled HTN. Given patient's history of ESBL UTI, patient will require admission into the hospital for treatment with IV antibiotics, close monitoring of blood pressure and mentation, and specialist consultation with Infectious Disease. Quality Stroke Does the patient have a stroke diagnosis?: No VTE Prior VTE?: No VTE Risk Level:: Medical - moderate - high VTE Device Contraindication: Treatment Not Indicated VTE Drug Contraindication: N/A - Med Ordered
--- NOTE | 2023-10-13 19:40 | MHC.EDTECH ---
pt ambulated to and from bedside commode via 1 assist stand and pivot
--- NOTE | 2023-10-13 20:05 | PC.NURSE ---
pt is axox4 speaking full clear sentences. neuros intact and at baseline mentation. pt requires stand/pivot assistance to commode/wheelchair, has visiting nurses at home. PA at bedside now for admission pt is a good historian. BP elevated and PA aware. pt denies cp/sob/n/v/d/dizziness/SAMANO/abd pain/urinary sx. 20g R. AC appeared to be bloody, cleaned and dressing changed. iv patent. call phillips within reach. Daughter at bedside.
[2023-10-13] MEDS: Enoxaparin Sodium 40 MG/0.4 ML SYRINGE SUBCUT (21:02)
--- NOTE | 2023-10-13 21:09 | PC.NURSE ---
Addendum entered by Maria Myles 10/13/23 21:15: pt requesting prn oxycodone she takes at home 20mg for chronic pain. pt states she has generalized 10/10 pain at this time. PA made aware. 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 provider made aware.
--- NOTE | 2023-10-13 22:05 | PC.NURSE ---
pt medicated per may for prn tolerated po. per PA hold atenolol at this time for heart rate 62. other 2129 meds unverified at this time. pt aware of plan of care bed assignment to 4th floor, denies questions/concerns at this time. report given to Concepción CHERRY.
--- NOTE | 2023-10-13 22:20 | PHA.MEDREC ---
Pharmacy Consult ? Medication Reconciliation Pharmacy has completed the medication reconciliation. Spoke to patient to confirm med list. Patient states she no longer takes Bupropion HCl 150mg daily, Fosfomycin 1 packet QOD. Patient Says she takes Oxyconone 20 mg q 4 h, Prednisone 4 mg daily and Prednisone 5-10 mg daily prn Arthritis flares. Patient said she was on Levothroxine ,however she didn't know the strength she was on. Left on the 50g on med rec because it was on her list and she said she takes it, However there was no claim. Patient also said she is on Duloxetine 60 mg bid, however there is no claim.
[2023-10-13] MEDS: Pregabalin 200 MG CAPSULE PO (23:04)
[2023-10-13] MEDS: Melatonin 3 MG TABLET 6 MG PO (23:04)
[2023-10-13] MEDS: DULoxetine HCl 60 MG CAPSULE.DR PO (23:04)
[2023-10-13] MEDS: Acetaminophen 325 MG TABLET 650 MG PO (23:04)
[2023-10-13] MEDS: 0.9 % Sodium Chloride Flush 3 ML SYRINGE IVFLUSH (23:09)
[2023-10-14] VITALS (7 sets, daily range): BP systolic 99–144; BP diastolic 54–78; PULSE 53–80; RESP 16–18; TEMP 36.1–36.8; O2SAT 92–96
[2023-10-14] MEDS: oxyCODONE HCl Immed Release 5 MG TABLET 20 MG PO ×4 (02:11→20:12)
[2023-10-14 06:11] LABS: MANUAL DIFF FLAG NO
[2023-10-14] MEDS: Levothyroxine Sodium 50 MCG TABLET PO (06:18)
[2023-10-14 06:31] LABS: Basophils Percent Auto 0.4 % (0-2); Eosinophils Absolute Auto 0.2 X10*3/uL (0.0-0.4); Eosinophils Percent Auto 2.5 % (0-4); Hematocrit 36.8 % (37.0-47.0); Hemoglobin 12.4 g/dl (12.0-16.0); Imm Gran Abs Auto 0.04 X10*3/uL (0.00-0.03); Imm Gran Pct Auto 0.5 % (0.0-0.4); Lymphocytes Absolute Auto 1.4 X10*3/uL (1.2-4.9); Lymphocytes Percent Auto 17.6 % (20-40); Mean Corpuscular HGB Conc 33.7 g/dl (31.0-35.0); Mean Corpuscular Hemoglobin 31.8 pg (27.0-33.0); Mean Corpuscular Volume 94.4 fL (80.0-98.0); Mean Platelet Volume 10.4 fL (9.4-12.3); Monocytes Absolute Auto 0.5 X10*3/uL (0.1-1.2); Monocytes Percent Auto 6.8 % (2-11); Neutrophils Absolute Auto 5.8 x10*3/uL (2.0-8.3); Neutrophils Percent Auto 72.2 % (45-73); Platelet Count 208 X10*3/uL (160-400); Red Cell Distribution Width 14.5 % (11.0-16.0)
[2023-10-14 06:34] LABS: Anion Gap 14 (12-20); Blood Urea Nitrogen 14 mg/dL (9-16); Calcium 9.5 mg/dL (8.4-10.2); Carbon Dioxide 25 mmol/L (22-29); Chloride 102 mmol/L (96-108); Creatinine Clr Calc Pharmacy 43.9; Estimated Glomerular Filt Rate 38; Glucose Random 94 mg/dL (60-115); Potassium 3.3 mmol/L (3.3-5.1); Sodium 138 mmol/L (135-145)
[2023-10-14] MEDS: Tiotropium Bromide 2.5 mcg 1 PUFF/2.5 MCG MIST.INHAL 2 PUFF INHALE (08:06)
[2023-10-14] MEDS: Losartan Potassium 50 MG TABLET 100 MG PO (08:20)
[2023-10-14] MEDS: Furosemide 40 MG TABLET PO (08:20)
[2023-10-14] MEDS: buPROPion HCl XL 300 MG TAB.ER.24H PO (08:20)
[2023-10-14] MEDS: DULoxetine HCl 60 MG CAPSULE.DR PO ×2 (08:20→20:12)
[2023-10-14] MEDS: predniSONE 1 MG TABLET 4 MG PO (08:20)
[2023-10-14] MEDS: Pregabalin 200 MG CAPSULE PO ×2 (08:20→20:12)
--- NOTE | 2023-10-14 08:20 | MHC.CM.PN ---
CM met with Patient at bedside and addressed IMM with her, providing Patient with the original and a copy has been placed on the chart. Patient lives alone in an apartment and uses an electric w/c to assist with mobility (w/c bound at baseline). Patient has daily skein spooler for 2-3 hours/day and home/resume said services is the goal. CM has initiated and will follow for dc planning. PCP is Dr. Namita Acosta.
[2023-10-14] MEDS: Omeprazole 40 MG CAPSULE.DR PO (08:21)
[2023-10-14] MEDS: atenoloL 50 MG TABLET PO (08:21)
--- NOTE | 2023-10-14 13:30 | P.PNIM_ITS ---
Subjective Subjective Date of Service: 10/14/23 Review of Systems Follow up UTI feeling well today no pain, nausea or vomiting Physical Exam 2 Vital Signs: Vital Signs: Last Vital Signs Temp 97.4 F 10/14/23 11:17 Pulse 68 10/14/23 11:17 Resp 18 10/14/23 11:17 BP 142/78 H 10/14/23 11:17 Pulse Ox 93 10/14/23 11:17 O2 Del Method Room Air 10/14/23 11:17 O2 Flow Rate 2 10/14/23 03:26 BMI result Body Mass Index 31.4 Appearing in no acute distress lung sounds are clear to auscultation heart regular rate rhythm, clear S1, S2 positive bowel sounds, abdomen is soft, nontender neuro patient is alert x3, no focal deficits Objective Data Active Medications Acetaminophen (Acetaminophen 325 Mg Tablet) 650 mg PO Q6H PRN PRN Reason: Pain, Mild (Pain Scale 1-3), fever or headache Last Admin: 10/13/23 23:04 Dose: 650 mg Documented By: ARTHUR Albuterol Sulfate (Albuterol Sulfate 90 Mcg 8 Gm Inhaler) 2 puff INHALE Q6H PRN PRN Reason: wheezing Atenolol (Atenolol 50 Mg Tablet) 50 mg PO BID [facility]; Protocol Last Admin: 10/14/23 08:21 Dose: 50 mg Documented By: JODY Bupropion HCl (Bupropion Hcl Xl 300 Mg Tab.Er.24h) 300 mg PO DAILY [facility] Last Admin: 10/14/23 08:20 Dose: 300 mg Documented By: JODY Calcium Carbonate (Calcium Carbonate 750 Mg Tab.Chew) 750 mg PO Q4H PRN PRN Reason: Heartburn Duloxetine HCl (Duloxetine Hcl 60 Mg Capsule.Dr) 60 mg PO BID [facility] Last Admin: 10/14/23 08:20 Dose: 60 mg Documented By: JODY Enoxaparin Sodium (Enoxaparin Sodium 40 Mg/0.4 Ml Syringe) 40 mg SUBCUT Q24H [facility] Last Admin: 10/13/23 21:02 Dose: 40 mg Documented By: PRATEEK Ergocalciferol (Ergocalciferol (Vitamin D2) 1,250 Mcg Capsule) 1,250 mcg PO [facility] Fluticasone Propionate (Fluticasone Propionate Nasal 16 Gm [place]) 1 spray NOSTRIL-B BID PRN PRN Reason: ALLERGIES Furosemide (Furosemide 40 Mg Tablet) 40 mg PO DAILY [facility]; Protocol Last Admin: 10/14/23 08:20 Dose: 40 mg Documented By: JODY Meropenem 1 gm/ Sodium (Chloride) 100 mls @ 200 mls/hr IV Q8H [facility] Last Infusion: 10/14/23 07:11 Dose: Infused Documented By: JODY Levothyroxine Sodium (Levothyroxine Sodium 50 Mcg Tablet) 50 mcg PO DAILY@0600 [facility] Last Admin: 10/14/23 06:18 Dose: 50 mcg Documented By: ARTHUR Losartan Potassium (Losartan Potassium 50 Mg Tablet) 100 mg PO DAILY [facility]; Protocol Last Admin: 10/14/23 08:20 Dose: 100 mg Documented By: JODY Magnesium Hydroxide (Milk Of Magnesia 30 Ml Oral.Susp) 30 ml PO DAILY PRN PRN Reason: Constipation Melatonin (Melatonin 3 Mg Tablet) 6 mg PO BEDTIME PRN PRN Reason: Insomnia Last Admin: 10/13/23 23:04 Dose: 6 mg Documented By: ARTHUR Methotrexate (Methotrexate Sodium 2.5 Mg Tablet) 25 mg PO MO@1000 [facility] Omeprazole (Omeprazole 40 Mg Capsule.) 40 mg PO DAILY [facility] Last Admin: 10/14/23 08:21 Dose: 40 mg Documented By: JODY Ondansetron HCl (Ondansetron Hcl 4 Mg/2 Ml Vial) 4 mg IVPUSH Q8H PRN PRN Reason: Nausea and Vomiting Oxycodone HCl (Oxycodone Hcl Immed Release 5 Mg Tablet) 20 mg PO Q4H PRN PRN Reason: Pain, Moderate(Pain Scale 4-6) Last Admin: 10/14/23 10:49 Dose: 20 mg Documented By: JODY Phenazopyridine HCl (Phenazopyridine Hcl 100 Mg Tablet) 100 mg PO TIDWM PRN PRN Reason: Perineal Discomfort Stop: 10/16/23 06:45 Prednisone (Prednisone 1 Mg Tablet) 4 mg PO DAILY [facility] Last Admin: 10/14/23 08:20 Dose: 4 mg Documented By: JODY Pregabalin (Pregabalin 200 Mg Capsule) 200 mg PO BID [facility] Last Admin: 10/14/23 08:20 Dose: 200 mg Documented By: JODY Sodium Chloride (0.9 % Sodium Chloride Flush 3 Ml Syringe) 3 ml IVFLUSH QSHIFT [facility] Last Admin: 10/14/23 07:57 Dose: Not Given Documented By: JODY Non-Admin Reason: IV Running Tiotropium [place] (Tiotropium [place] 2.5 Mcg 1 Puff/2.5 Mcg Mist.Inhal) 2 puff INHALE RDAILY [facility] Last Admin: 10/14/23 08:06 Dose: 2 puff Documented By: LEONORA Labs 10/14/23 06:01 10/14/23 06:01 Labs: Laboratory Results - last 24 hr 10/13/23 10/13/23 10/13/23 12:20 14:04 15:08 MCV MCH MCHC RDW Plt Count MPV Immature Gran % (Auto) Neut % (Auto) Lymph % (Auto) [place] % (Auto) Eos % (Auto) Baso % (Auto) Lymph # (Auto) [place] # (Auto) Eos # (Auto) Baso # (Auto) Abs Immat Gran (auto) Absolute Neuts (auto) Absolute Nucleated RBC Nucleated RBC % (auto) Anion Gap Estim Creat Clear Calc Estimated GFR Random Glucose Lactic Acid 0.9 Calcium Magnesium 2.0 Total Bilirubin 0.5 AST 19 D ALT 13 Alkaline Phosphatase 92 C-Reactive Protein 2.25 H Total Protein 7.9 Albumin 4.0 Urine Color Yellow Urine Appearance Cloudy Urine pH 5.5 Ur Specific [place] >= 1.030 H Urine Protein 100 (2+) H Urine Glucose (UA) Negative Urine Ketones 15 Urine Blood Small (1+) H Urine Nitrite Negative Ur Leukocyte Esterase Moderate (2+) H Urine RBC 3-5 H Urine WBC >50 H Ur Squamous Epith Cells 0-2 Urine Bacteria 4+ Hyaline Casts 3-5 Urine Opiates Screen POSITIVE H Ur Buprenorphine Scrn NOT DETECTED Ur Oxycodone Screen POSITIVE H Urine Methadone Screen NOT DETECTED Urine Fentanyl Screen Not Detected Ur Barbiturates Screen NOT DETECTED Ur Phencyclidine Scrn NOT DETECTED Ur Amphetamines Screen NOT DETECTED U Benzodiazepines Scrn NOT DETECTED Urine Cocaine Screen NOT DETECTED U Marijuana (THC) Screen NOT DETECTED 10/14/23 06:01 MCV 94.4 MCH 31.8 MCHC 33.7 RDW 14.5 Plt Count 208 MPV 10.4 Immature Gran % (Auto) 0.5 H Neut % (Auto) 72.2 Lymph % (Auto) 17.6 L [place] % (Auto) 6.8 Eos % (Auto) 2.5 Baso % (Auto) 0.4 Lymph # (Auto) 1.4 [place] # (Auto) 0.5 Eos # (Auto) 0.2 Baso # (Auto) 0.0 Abs Immat Gran (auto) 0.04 H Absolute Neuts (auto) 5.8 Absolute Nucleated RBC 0.000 Nucleated RBC % (auto) 0.0 Anion Gap 14 Estim Creat Clear Calc 43.9 Estimated GFR 38 Random Glucose 94 Lactic Acid Calcium 9.5 D Magnesium Total Bilirubin AST ALT Alkaline Phosphatase C-Reactive Protein Total Protein Albumin Urine Color Urine Appearance Urine pH Ur Specific [place] Urine Protein Urine Glucose (UA) Urine Ketones Urine Blood Urine Nitrite Ur Leukocyte Esterase Urine RBC Urine WBC Ur Squamous Epith Cells Urine Bacteria Hyaline Casts Urine Opiates Screen Ur Buprenorphine Scrn Ur Oxycodone Screen Urine Methadone Screen Urine Fentanyl Screen Ur Barbiturates Screen Ur Phencyclidine Scrn Ur Amphetamines Screen U Benzodiazepines Scrn Urine Cocaine Screen U Marijuana (THC) Screen Microbiology Microbiology Results: Microbiology 10/13/23 15:20 Blood Culture - Preliminary Blood - Venous Prelim: GPC Gram Stain only Assessment and Plan (1) Acute metabolic encephalopathy: Status: Acute Plan Pt is a 73-year-old female with a PMH significant for?HTN, COPD, rheumatoid arthritis, hypothyroidism, GERD, fibromyalgia, ESBL UTI, and mood disorder who presents to the ED for evaluation of altered mental status. Pt will be admitted to the hospital for treatment and further evaluation of acute metabolic encephalopathy in the setting of UTI and uncontrolled hypertension. Acute metabolic encephalopathy secondary to UTI Pt with hx of ESBL E coli UTI Will treat with meropenem, started 10/13/2023 ID consult Follow cultures GPC bacteremia start vancomcyin follow final cx Hypertensive urgency. Resolved Pt presented with uncontrolled HTN as high as 238/118 Likely secondary to medication noncompliance due to acute encephalopathy Patient received clonidine, atenolol, and losartan in the ED Continue atenolol, losartan Monitor BP COPD Not in acute exacerbation Continue home inhalers Chronic lower leg edema Continue Lasix Chronic lower back and leg pain Continue home opioids Rheumatoid arthritis Continue methotrexate, prednisone Hypothyroidism Continue levothyroxine Mood disorder Continue bupropion, duloxetine, Full Code Attending:?Dr. Benavides DVT Prophylaxis: Lovenox Pt will require a hospitalization of at least two nights for treatment of? acute metabolic encephalopathy in the setting of UTI and uncontrolled HTN. Given patient's history of ESBL UTI, patient will require admission into the hospital for treatment with IV antibiotics, close monitoring of blood pressure and mentation, and specialist consultation with Infectious Disease. Quality Stroke Does the patient have a stroke diagnosis?: No VTE Prior VTE?: No VTE Risk Level:: Medical - moderate - high VTE Device Contraindication: Treatment Not Indicated VTE Drug Contraindication: N/A - Med Ordered
[2023-10-14] MEDS: 0.9 % Sodium Chloride Flush 3 ML SYRINGE IVFLUSH ×2 (13:47→20:17)
--- NOTE | 2023-10-14 13:55 | PHA.PROG ---
Admission Date/Time: October 13, 2023 19:03 Indication: BACTEREMIA Weight in k kg Adjusted body weight in K KG [place] body weight in Kg: Obesity Dosing Indication % IBW: 47 % OVER IBW Serum Creatinine - Last 168 Hours 10/13/23 10/14/23 12:20 06:01 Creatinine 1.02 1.36 Estimated CrCl and GFR - Last 168 Hours 10/13/23 10/14/23 12:20 06:01 Estim Creat Clear Calc 59.9 43.9 Estimated GFR 53 38 Vancomycin Loading Dose: 2000 MG Current Vancomycin Dosing Regimen:1000 MG Q 24 HOURS Vancomycin Monitoring using AUC goal of 400 - 600 range with trough as surrogate marker: Date and Time for next Vancomycin Level to be drawn: 10/16/23 1200 Pharmacist Comments on Vancomycin Plan: WILL CHECK LEVEL AFTER 2 DOSES Vancomycin dosing will take advantage of [employer] as a clinical decision support tool that uses Bayesian modeling to calculate individual patient's pharmacokinetic parameters and forecast the patient's drug concentration time course with the target goal AUC 24 range of 400 - 600 mg/L/hr.
[2023-10-14] MEDS: vancomycin/NS 2,000 MG/500 ML PLAST..BAG 250 MG IV (15:30)
[2023-10-14] MEDS: Acetaminophen 325 MG TABLET 650 MG PO (20:12)
[2023-10-14] MEDS: Melatonin 3 MG TABLET 6 MG PO (20:12)
[2023-10-14] MEDS: Phenazopyridine HCL 100 MG TABLET PO (20:12)
[2023-10-14] MEDS: Enoxaparin Sodium 40 MG/0.4 ML SYRINGE SUBCUT (20:12)
[2023-10-15] VITALS (7 sets, daily range): BP systolic 81–133; BP diastolic 50–62; PULSE 61–79; RESP 16–20; TEMP 36–36.2; O2SAT 92–96
[2023-10-15] MEDS: oxyCODONE HCl Immed Release 5 MG TABLET 20 MG PO ×2 (05:27→21:03)
[2023-10-15] MEDS: Acetaminophen 325 MG TABLET 650 MG PO (05:28)
[2023-10-15] MEDS: Levothyroxine Sodium 50 MCG TABLET PO (05:28)
[2023-10-15 07:03] LABS: Creatinine Clr Calc Pharmacy 29.8; Estimated Glomerular Filt Rate 25
[2023-10-15] MEDS: Tiotropium Bromide 2.5 mcg 1 PUFF/2.5 MCG MIST.INHAL 2 PUFF INHALE (07:27)
--- NOTE | 2023-10-15 07:39 | HE.PHANOTE ---
RE: VANCO Worsening renal function. Current dose of 1,000 q24h was predicting troughs of 24.1 and predicted AUC of 719. Dose reduced to 750mg q24h, with predicted trough of 18.6 and AUC 554. Next trough 10/15 @ 1200.
[2023-10-15] MEDS: predniSONE 1 MG TABLET 4 MG PO (08:21)
[2023-10-15] MEDS: Omeprazole 40 MG CAPSULE.DR PO (08:22)
[2023-10-15] MEDS: Pregabalin 200 MG CAPSULE PO ×2 (08:22→21:03)
[2023-10-15] MEDS: buPROPion HCl XL 300 MG TAB.ER.24H PO (08:22)
[2023-10-15] MEDS: DULoxetine HCl 60 MG CAPSULE.DR PO ×2 (08:22→21:03)
--- NOTE | 2023-10-15 08:42 | HO.PM.IMPN ---
Subjective Subjective Date of Service: 10/15/23 Review of Systems Follow up UTI feeling well today no pain, nausea or vomiting now with hypotension and CASSANDRA Physical Exam Vital Signs: Vital Signs: Last Vital Signs Temp 97 F 10/15/23 07:42 Pulse 61 10/15/23 07:42 Resp 20 10/15/23 07:42 BP 81/50 L 10/15/23 07:42 Pulse Ox 96 10/15/23 07:42 O2 Del Method Nasal Cannula 10/15/23 07:42 O2 Flow Rate 2 10/15/23 07:42 BMI result Body Mass Index 31.4 Appearing in no acute distress lung sounds are clear to auscultation heart regular rate rhythm, clear S1, S2 positive bowel sounds, abdomen is soft, nontender neuro patient is alert x3, no focal deficits Objective Data Active Medications Acetaminophen (Acetaminophen 325 Mg Tablet) 650 mg PO Q6H PRN PRN Reason: Pain, Mild (Pain Scale 1-3), fever or headache Last Admin: 10/15/23 05:28 Dose: 650 mg Documented By: ARTHUR Albuterol Sulfate (Albuterol Sulfate 90 Mcg 8 Gm Inhaler) 2 puff INHALE Q6H PRN PRN Reason: wheezing Atenolol (Atenolol 50 Mg Tablet) 50 mg PO BID [facility]; Protocol Last Admin: 10/14/23 19:52 Dose: Not Given Documented By: ARTHUR Non-Admin Reason: Decreased Blood Pressure Bupropion HCl (Bupropion Hcl Xl 300 Mg Tab.Er.24h) 300 mg PO DAILY [facility] Last Admin: 10/15/23 08:22 Dose: 300 mg Documented By: JODY Calcium Carbonate (Calcium Carbonate 750 Mg Tab.Chew) 750 mg PO Q4H PRN PRN Reason: Heartburn Duloxetine HCl (Duloxetine Hcl 60 Mg Capsule.Dr) 60 mg PO BID [facility] Last Admin: 10/15/23 08:22 Dose: 60 mg Documented By: JODY Enoxaparin Sodium (Enoxaparin Sodium 40 Mg/0.4 Ml Syringe) 40 mg SUBCUT Q24H [facility] Last Admin: 10/14/23 20:12 Dose: 40 mg Documented By: ARTHUR Ergocalciferol (Ergocalciferol (Vitamin D2) 1,250 Mcg Capsule) 1,250 mcg PO [facility] Fluticasone Propionate (Fluticasone Propionate Nasal 16 Gm [place]) 1 spray NOSTRIL-B BID PRN PRN Reason: ALLERGIES Furosemide (Furosemide 40 Mg Tablet) 40 mg PO DAILY [facility]; Protocol Last Admin: 10/14/23 08:20 Dose: 40 mg Documented By: JODY Meropenem 1 gm/ Sodium (Chloride) 100 mls @ 200 mls/hr IV Q8H [facility] Last Infusion: 10/15/23 05:58 Dose: Infused Documented By: ARTHUR Vancomycin HCl 750 mg/ Sodium (Chloride) 265 mls @ 265 mls/hr IV Q24H [facility] Levothyroxine Sodium (Levothyroxine Sodium 50 Mcg Tablet) 50 mcg PO DAILY@0600 [facility] Last Admin: 10/15/23 05:28 Dose: 50 mcg Documented By: ARTHUR Losartan Potassium (Losartan Potassium 50 Mg Tablet) 100 mg PO DAILY [facility]; Protocol Last Admin: 10/14/23 08:20 Dose: 100 mg Documented By: JODY Magnesium Hydroxide (Milk Of Magnesia 30 Ml Oral.Susp) 30 ml PO DAILY PRN PRN Reason: Constipation Melatonin (Melatonin 3 Mg Tablet) 6 mg PO BEDTIME PRN PRN Reason: Insomnia Last Admin: 10/14/23 20:12 Dose: 6 mg Documented By: ARTHUR Methotrexate (Methotrexate Sodium 2.5 Mg Tablet) 25 mg PO MO@1000 [facility] Omeprazole (Omeprazole 40 Mg Capsule.Dr) 40 mg PO DAILY [facility] Last Admin: 10/15/23 08:22 Dose: 40 mg Documented By: JODY Ondansetron HCl (Ondansetron Hcl 4 Mg/2 Ml Vial) 4 mg IVPUSH Q8H PRN PRN Reason: Nausea and Vomiting Oxycodone HCl (Oxycodone Hcl Immed Release 5 Mg Tablet) 20 mg PO Q4H PRN PRN Reason: Pain, Moderate(Pain Scale 4-6) Last Admin: 10/15/23 05:27 Dose: 20 mg Documented By: ARTHUR Pharmacy Consult (Consult Rx Vancomycin Dosing) 1 each MISCE[place] DAILY PRN PRN Reason: Consult order Phenazopyridine HCl (Phenazopyridine Hcl 100 Mg Tablet) 100 mg PO TIDWM PRN PRN Reason: Perineal Discomfort Stop: 10/16/23 06:45 Last Admin: 10/14/23 20:12 Dose: 100 mg Documented By: ARTHUR Prednisone (Prednisone 1 Mg Tablet) 4 mg PO DAILY [facility] Last Admin: 10/15/23 08:21 Dose: 4 mg Documented By: JODY Pregabalin (Pregabalin 200 Mg Capsule) 200 mg PO BID [facility] Last Admin: 10/15/23 08:22 Dose: 200 mg Documented By: JODY Sodium Chloride (0.9 % Sodium Chloride Flush 3 Ml Syringe) 3 ml IVFLUSH QSHIFT [facility] Last Admin: 10/15/23 08:23 Dose: Not Given Documented By: JODY Non-Admin Reason: IV Running Tiotropium [place] (Tiotropium [place] 2.5 Mcg 1 Puff/2.5 Mcg Mist.Inhal) 2 puff INHALE RDAILY [facility] Last Admin: 10/15/23 07:27 Dose: 2 puff Documented By: BLASCL Labs 10/14/23 06:01 10/15/23 06:10 Labs: Laboratory Results - last 24 hr 10/15/23 06:10 Hold Purple Top SEE NOTE Estim Creat Clear Calc 29.8 Estimated GFR 25 Microbiology Microbiology Results: Microbiology 10/13/23 15:20 Blood Culture - Final Blood - Venous Coag negative Staphylococcus 10/13/23 15:08 Blood Culture - Preliminary Blood - Venous No growth after 24 hours. 10/13/23 Unknown Urine Culture - Preliminary Urine clean catch - Clean Catch Midstream Gram negative altaf Assessment and Plan (1) Acute metabolic encephalopathy: Status: Acute Plan Pt is a 73-year-old female with a PMH significant for?HTN, COPD, rheumatoid arthritis, hypothyroidism, GERD, fibromyalgia, ESBL UTI, and mood disorder who presents to the ED for evaluation of altered mental status. Pt will be admitted to the hospital for treatment and further evaluation of acute metabolic encephalopathy in the setting of UTI and uncontrolled hypertension. CASSANDRA likely secondary to hypotension all antihypertensives on hold as well as diuretic give bolus of NS and evaluate BP Acute metabolic encephalopathy secondary to Ecoli ESBL UTI continue meropenem, started 10/13/2023 ID consult pending coag neg staph bacteremia stop vancomcyin Hypertensive urgency. Resolved Pt presented with uncontrolled HTN as high as 238/118 Likely secondary to medication noncompliance due to acute encephalopathy Patient received clonidine, atenolol, and losartan in the ED hold atenolol, losartan due to hypotension COPD Not in acute exacerbation Continue home inhalers Chronic lower leg edema on hold Lasix due to hypotension Chronic lower back and leg pain Continue home opioids Rheumatoid arthritis Continue methotrexate, prednisone Hypothyroidism Continue levothyroxine Mood disorder Continue bupropion, duloxetine, Obesity I Weight management Full Code Attending:?Dr. Benavides DVT Prophylaxis: Lovenox Pt will require a hospitalization of at least two nights for treatment of? acute metabolic encephalopathy in the setting of UTI and uncontrolled HTN. Given patient's history of ESBL UTI, patient will require admission into the hospital for treatment with IV antibiotics, close monitoring of blood pressure and mentation, and specialist consultation with Infectious Disease. Quality Stroke Does the patient have a stroke diagnosis?: No VTE Prior VTE?: No VTE Risk Level:: Medical - moderate - high VTE Device Contraindication: Treatment Not Indicated VTE Drug Contraindication: N/A - Med Ordered
[2023-10-15] MEDS: 0.9 % Sodium Chloride 1,000 ML 500 ML IVCONT (08:52)
[2023-10-15] MEDS: Enoxaparin Sodium 30 MG/0.3 ML SYRINGE SUBCUT (21:03)
[2023-10-15] MEDS: 0.9 % Sodium Chloride Flush 3 ML SYRINGE IVFLUSH (21:04)
[2023-10-16] VITALS (7 sets, daily range): BP systolic 131–176; BP diastolic 63–75; PULSE 73–77; RESP 18–22; TEMP 36.1–36.4; O2SAT 90–95
[2023-10-16] MEDS: Levothyroxine Sodium 50 MCG TABLET PO (05:10)
[2023-10-16] MEDS: oxyCODONE HCl Immed Release 5 MG TABLET 20 MG PO ×3 (05:10→20:00)
--- NOTE | 2023-10-16 07:21 | HO.PM.IMPN ---
Subjective Subjective Date of Service: 10/16/23 Review of Systems Follow up UTI, encephalopathy feeling well today no pain, nausea or vomiting Creat improving. No further hypotension. She is concerned about urinary retention. Bladder scan this am 350cc Review of Systems: Yes all other systems are reviewed and are negative Physical Exam Vital Signs: Vital Signs: Last Vital Signs Temp 97.5 F 10/16/23 07:19 Pulse 77 10/16/23 07:19 Resp 20 10/16/23 07:19 BP 138/64 10/16/23 07:19 Pulse Ox 92 10/16/23 07:19 O2 Del Method Room Air 10/16/23 07:19 O2 Flow Rate 2 10/15/23 23:19 BMI result Body Mass Index 31.4 Constitutional - Awake and Alert, No apparent distress Eyes - PERRLA, EOMI Cardiovascular - S1S2, RRR, No edema Respiratory - Normal lung expansion, Normal respiratory effort, No respiratory distress, CTA bilaterally Gastrointestinal - NT / ND; +BS; No rebound or guarding Extremities - no calf tenderness bilaterally, no swelling Skin - Warm/Dry Neurological - Alert & oriented x3 Objective Data Active Medications Acetaminophen (Acetaminophen 325 Mg Tablet) 650 mg PO Q6H PRN PRN Reason: Pain, Mild (Pain Scale 1-3), fever or headache Last Admin: 10/15/23 05:28 Dose: 650 mg Documented By: ARTHUR Albuterol Sulfate (Albuterol Sulfate 90 Mcg 8 Gm Inhaler) 2 puff INHALE Q6H PRN PRN Reason: wheezing Atenolol (Atenolol 50 Mg Tablet) 50 mg PO BID [facility]; Protocol Last Admin: 10/14/23 19:52 Dose: Not Given Documented By: ARTHUR Non-Admin Reason: Decreased Blood Pressure Bupropion HCl (Bupropion Hcl Xl 300 Mg Tab.Er.24h) 300 mg PO DAILY [facility] Last Admin: 10/15/23 08:22 Dose: 300 mg Documented By: JODY Calcium Carbonate (Calcium Carbonate 750 Mg Tab.Chew) 750 mg PO Q4H PRN PRN Reason: Heartburn Duloxetine HCl (Duloxetine Hcl 60 Mg Capsule.Dr) 60 mg PO BID [facility] Last Admin: 10/15/23 21:03 Dose: 60 mg Documented By: LEXII Enoxaparin Sodium (Enoxaparin Sodium 30 Mg/0.3 Ml Syringe) 30 mg SUBCUT Q24H [facility] Last Admin: 10/15/23 21:03 Dose: 30 mg Documented By: LEXII Ergocalciferol (Ergocalciferol (Vitamin D2) 1,250 Mcg Capsule) 1,250 mcg PO Th [facility] Fluticasone Propionate (Fluticasone Propionate Nasal 16 Gm [place]) 1 spray NOSTRIL-B BID PRN PRN Reason: ALLERGIES Furosemide (Furosemide 40 Mg Tablet) 40 mg PO DAILY [facility]; Protocol Last Admin: 10/14/23 08:20 Dose: 40 mg Documented By: JODY Meropenem 1 gm/ Sodium (Chloride) 100 mls @ 200 mls/hr IV Q12H [facility] Last Infusion: 10/16/23 05:43 Dose: Infused Documented By: LEXII Levothyroxine Sodium (Levothyroxine Sodium 50 Mcg Tablet) 50 mcg PO DAILY@0600 [facility] Last Admin: 10/16/23 05:10 Dose: 50 mcg Documented By: LEXII Losartan Potassium (Losartan Potassium 50 Mg Tablet) 100 mg PO DAILY [facility]; Protocol Last Admin: 10/14/23 08:20 Dose: 100 mg Documented By: JODY Magnesium Hydroxide (Milk Of Magnesia 30 Ml Oral.Susp) 30 ml PO DAILY PRN PRN Reason: Constipation Melatonin (Melatonin 3 Mg Tablet) 6 mg PO BEDTIME PRN PRN Reason: Insomnia Last Admin: 10/14/23 20:12 Dose: 6 mg Documented By: ARTHUR Methotrexate (Methotrexate Sodium 2.5 Mg Tablet) 25 mg PO MO@1000 [facility] Omeprazole (Omeprazole 40 Mg Capsule.Dr) 40 mg PO DAILY [facility] Last Admin: 10/15/23 08:22 Dose: 40 mg Documented By: JODY Ondansetron HCl (Ondansetron Hcl 4 Mg/2 Ml Vial) 4 mg IVPUSH Q8H PRN PRN Reason: Nausea and Vomiting Oxycodone HCl (Oxycodone Hcl Immed Release 5 Mg Tablet) 20 mg PO Q4H PRN PRN Reason: Pain, Moderate(Pain Scale 4-6) Last Admin: 10/16/23 05:10 Dose: 20 mg Documented By: LEXII Prednisone (Prednisone 1 Mg Tablet) 4 mg PO DAILY [facility] Last Admin: 10/15/23 08:21 Dose: 4 mg Documented By: JODY Pregabalin (Pregabalin 200 Mg Capsule) 200 mg PO BID [facility] Last Admin: 10/15/23 21:03 Dose: 200 mg Documented By: LEXII Sodium Chloride (0.9 % Sodium Chloride Flush 3 Ml Syringe) 3 ml IVFLUSH QSHIFT [facility] Last Admin: 10/15/23 21:04 Dose: 3 ml Documented By: LEXII Tiotropium [place] (Tiotropium [place] 2.5 Mcg 1 Puff/2.5 Mcg Mist.Inhal) 2 puff INHALE RDAILY [facility] Last Admin: 10/15/23 07:27 Dose: 2 puff Documented By: BLASCL Labs 10/14/23 06:01 10/16/23 08:05 Microbiology Microbiology Results: Microbiology 10/13/23 15:08 Blood Culture - Preliminary Blood - Venous No growth after 48 hours. 10/13/23 Unknown Urine Culture - Final Urine clean catch - Clean Catch Midstream Escherichia coli 10/13/23 15:20 Blood Culture - Final Blood - Venous Coag negative Staphylococcus Assessment and Plan (1) Acute metabolic encephalopathy: Status: Acute (2) UTI due to extended-spectrum beta lactamase (ESBL) producing Escherichia coli: Status: Acute (3) Hypotension: Status: Acute (4) Acute kidney injury: Status: Acute Plan Pt is a 73-year-old female with a PMH significant for?HTN, COPD, rheumatoid arthritis, hypothyroidism, GERD, fibromyalgia, ESBL UTI, and mood disorder who presents to the ED for evaluation of altered mental status. Pt will be admitted to the hospital for treatment and further evaluation of acute metabolic encephalopathy in the setting of UTI and uncontrolled hypertension. CASSANDRA likely secondary to hypotension likely has been noncompliant with antihypertensives at home couple with high dose narcotic use resulting in hypotension all antihypertensives on hold as well as diuretic give bolus of NS and evaluate BP creat improving 2.0-->1.5 hypotension resolved. 10/15 resume lasix decreased to 20mg and atenolol decreased to 25mg daily Acute metabolic encephalopathy secondary to Ecoli ESBL UTI continue meropenem, started 10/13/2023 Per ID (via text), continue meropenem times 10 days total. Midline to be placed 10/16 coag neg staph bacteremia stop vancomcyin Hypertensive urgency. Resolved Pt presented with uncontrolled HTN as high as 238/118 Likely secondary to medication noncompliance due to acute encephalopathy Patient received clonidine, atenolol, and losartan in the ED hold atenolol, losartan due to hypotension. 10/15 resume lasix at 20mg daily and atenolol 25mg daily COPD Not in acute exacerbation Continue home inhalers Chronic lower leg edema on hold Lasix due to hypotension Chronic lower back and leg pain Continue home opioids Rheumatoid arthritis Continue methotrexate, prednisone Hypothyroidism Continue levothyroxine Mood disorder Continue bupropion, duloxetine, Obesity I Weight management Full Code DVT Prophylaxis: Lovenox Pt will ongoing hospitalization for treatment of? acute metabolic encephalopathy in the setting of UTI and uncontrolled HTN. Given patient's history of ESBL UTI, patient will require admission into the hospital for treatment with IV antibiotics, close monitoring of blood pressure and mentation, and specialist consultation with Infectious Disease, with midline placement for prolonged abx tx Quality Stroke Does the patient have a stroke diagnosis?: No VTE Prior VTE?: No VTE Risk Level:: Medical - moderate - high VTE Device Contraindication: Treatment Not Indicated VTE Drug Contraindication: N/A - Med Ordered
[2023-10-16] MEDS: Tiotropium Bromide 2.5 mcg 1 PUFF/2.5 MCG MIST.INHAL 2 PUFF INHALE (07:29)
[2023-10-16 07:42] LABS: Anion Gap 13 (12-20); Blood Urea Nitrogen 24 mg/dL (9-16); Calcium 8.6 mg/dL (8.4-10.2); Carbon Dioxide 25 mmol/L (22-29); Chloride 104 mmol/L (96-108); Estimated Glomerular Filt Rate 32; Glucose Random 98 mg/dL (60-115); Potassium 3.4 mmol/L (3.3-5.1); Sodium 139 mmol/L (135-145)
[2023-10-16 09:25] LABS: Anion Gap 14 (12-20); Blood Urea Nitrogen 24 mg/dL (9-16); Calcium 8.5 mg/dL (8.4-10.2); Carbon Dioxide 24 mmol/L (22-29); Chloride 103 mmol/L (96-108); Creatinine Clr Calc Pharmacy 39.8; Estimated Glomerular Filt Rate 34; Glucose Random 82 mg/dL (60-115); Potassium 3.6 mmol/L (3.3-5.1); Sodium 137 mmol/L (135-145)
[2023-10-16] MEDS: Acetaminophen 325 MG TABLET 650 MG PO (09:29)
[2023-10-16] MEDS: DULoxetine HCl 60 MG CAPSULE.DR PO ×2 (09:29→19:59)
[2023-10-16] MEDS: buPROPion HCl XL 300 MG TAB.ER.24H PO (09:29)
[2023-10-16] MEDS: Omeprazole 40 MG CAPSULE.DR PO (09:29)
[2023-10-16] MEDS: predniSONE 1 MG TABLET 4 MG PO (09:29)
[2023-10-16] MEDS: Pregabalin 200 MG CAPSULE PO ×2 (09:29→19:59)
[2023-10-16] MEDS: 0.9 % Sodium Chloride Flush 3 ML SYRINGE IVFLUSH ×2 (09:31→20:00)
[2023-10-16] MEDS: metHOTREXate sodium 2.5 MG TABLET 25 MG PO (11:46)
[2023-10-16 12:36] LABS: Vancomycin Random 9.7 mcg/mL (15-20)
--- NOTE | 2023-10-16 15:08 | MHC.CM.PN ---
EMR reviewed and per MD rounds, pt is not medically cleared for discharge due to ongoing management of acute metabolic encephalopathy and UTI.
--- NOTE | 2023-10-16 18:47 | HO.MIDLINE_ITS ---
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 Using ultrasound guidance, right cephalic vein access was obtained . 4FR single lumen nonPASV Power Midline was positioned. The procedure was performed in rm 272. Ultrasound was used to document vein patency and for needle entry. A formal ultrasound picture was recorded. Vascular Shingle Catcher has released the line for use and it is currently dressed with a StatLock, Tegaderm, and CHG disc. Verification has been performed for blood return and line patency. Arm Circumference: 33cm Equipment: [employer]To[employer] PowerMidline Catheter Catheter Type: 4FR single lumen NonPASV power midline catheter Lot #: [id number]
[2023-10-16] MEDS: Enoxaparin Sodium 40 MG/0.4 ML SYRINGE SUBCUT (19:59)
[2023-10-16] MEDS: Doxazosin Mesylate 2 MG TABLET PO (19:59)
[2023-10-17] VITALS (8 sets, daily range): BP systolic 121–161; BP diastolic 56–76; PULSE 64–82; RESP 18–23; TEMP 36.1–37; O2SAT 92–95
[2023-10-17] MEDS: oxyCODONE HCl Immed Release 5 MG TABLET 20 MG PO ×4 (05:42→20:30)
[2023-10-17] MEDS: Levothyroxine Sodium 50 MCG TABLET PO (05:42)
[2023-10-17] MEDS: Tiotropium Bromide 2.5 mcg 1 PUFF/2.5 MCG MIST.INHAL 2 PUFF INHALE (08:04)
[2023-10-17] MEDS: buPROPion HCl XL 300 MG TAB.ER.24H PO (08:07)
[2023-10-17] MEDS: Omeprazole 40 MG CAPSULE.DR PO (08:07)
[2023-10-17] MEDS: DULoxetine HCl 60 MG CAPSULE.DR PO ×2 (08:07→20:30)
[2023-10-17] MEDS: Furosemide 20 MG TABLET PO (08:07)
[2023-10-17] MEDS: atenoloL 25 MG TABLET PO (08:07)
[2023-10-17] MEDS: Pregabalin 200 MG CAPSULE PO ×2 (08:07→20:30)
[2023-10-17] MEDS: predniSONE 1 MG TABLET 4 MG PO (08:07)
[2023-10-17] MEDS: 0.9 % Sodium Chloride Flush 3 ML SYRINGE IVFLUSH (08:08)
[2023-10-17] MEDS: Heparin Sodium,Porcine Flush 50 UNITS, 0.9 % Sodium Chloride Flush 5 ML IVFLUSH ×3 (08:08→20:28)
[2023-10-17 09:33] LABS: Anion Gap 13 (12-20); Blood Urea Nitrogen 20 mg/dL (9-16); Calcium 8.8 mg/dL (8.4-10.2); Carbon Dioxide 26 mmol/L (22-29); Chloride 103 mmol/L (96-108); Creatinine Clr Calc Pharmacy 56.4; Estimated Glomerular Filt Rate 51; Glucose Random 102 mg/dL (60-115); Potassium 3.8 mmol/L (3.3-5.1); Sodium 138 mmol/L (135-145)
--- NOTE | 2023-10-17 12:09 | MHC.CM.PN ---
CM met with Patient at bedside to discuss dc planning further.Patient and her Daughter feel now that Patient would not be able to manage home IV ABT (R/T RA & UTI/Confusion). CM has made , LORENA & DARIANA aware of the change in plans. With Patient's permission, a SNF bed search has been initiated and CM will continue to follow.
[2023-10-17] MEDS: Ertapenem Sodium 1 GM in 0.9 % Sodium Chloride 50 ML IV (12:32)
--- NOTE | 2023-10-17 13:19 | MHC.CM.PN ---
Per Patient's request, CM called Daughter/HCP/Susy @ [phone] and updated her on the dc plan (STR); CM was only able to leave a detailed message. CM will follow.
--- NOTE | 2023-10-17 13:35 | MHC.CM.PN ---
Per Patient's choice/request, CM has asked [facility] [place] to initiate [employer] auth. CM will follow.
--- NOTE | 2023-10-17 15:12 | HO.PM.IMPN ---
Subjective Subjective Date of Service: 10/17/23 Interval History: UTI Review of Systems mental status seems improved denies abd pain . Physical Exam Vital Signs: Vital Signs: Last Vital Signs Temp 97.3 F 10/17/23 11:00 Pulse 66 10/17/23 11:00 Resp 20 10/17/23 11:00 BP 121/56 L 10/17/23 11:00 Pulse Ox 93 10/17/23 11:00 O2 Del Method Room Air 10/17/23 11:00 O2 Flow Rate 2 10/16/23 15:36 BMI result Body Mass Index 31.4 Appearance: Alert.? Oriented X3. cvs: rrr, [id number] , no murmur res: clear to auscultation ,no rhonchii or wheezing abd: no rebound or guarding ,nt, bs present. ext pulses present , no cyanosis . neuro: nonfocal. Objective Data Active Medications Acetaminophen (Acetaminophen 325 Mg Tablet) 650 mg PO Q6H PRN PRN Reason: Pain, Mild (Pain Scale 1-3), fever or headache Last Admin: 10/16/23 09:29 Dose: 650 mg Documented By: JODY Albuterol Sulfate (Albuterol Sulfate 90 Mcg 8 Gm Inhaler) 2 puff INHALE Q6H PRN PRN Reason: wheezing Atenolol (Atenolol 25 Mg Tablet) 25 mg PO DAILY [facility]; Protocol Last Admin: 10/17/23 08:07 Dose: 25 mg Documented By: JIGNA Bupropion HCl (Bupropion Hcl Xl 300 Mg Tab.Er.24h) 300 mg PO DAILY [facility] Last Admin: 10/17/23 08:07 Dose: 300 mg Documented By: JIGNA Calcium Carbonate (Calcium Carbonate 750 Mg Tab.Chew) 750 mg PO Q4H PRN PRN Reason: Heartburn Heparin Sodium (Porcine) 50 (units/ Sodium Chloride 5 ml) 0 units IVFLUSH TID [facility] Last Admin: 10/17/23 14:50 Dose: 50 unit Documented By: JIGNA Doxazosin Mesylate (Doxazosin Mesylate 2 Mg Tablet) 2 mg PO BEDTIME [facility]; Protocol Last Admin: 10/16/23 19:59 Dose: 2 mg Documented By: LEXII Duloxetine HCl (Duloxetine Hcl 60 Mg Capsule.Dr) 60 mg PO BID [facility] Last Admin: 10/17/23 08:07 Dose: 60 mg Documented By: JIGNA Enoxaparin Sodium (Enoxaparin Sodium 40 Mg/0.4 Ml Syringe) 40 mg SUBCUT Q24H [facility] Last Admin: 10/16/23 19:59 Dose: 40 mg Documented By: LEXII Ergocalciferol (Ergocalciferol (Vitamin D2) 1,250 Mcg Capsule) 1,250 mcg PO [facility] Fluticasone Propionate (Fluticasone Propionate Nasal 16 Gm [place]) 1 spray NOSTRIL-B BID PRN PRN Reason: ALLERGIES Ertapenem 1 gm/ Sodium (Chloride) 50 mls @ 100 mls/hr IV Q24H [facility] Last Infusion: 10/17/23 13:03 Dose: Infused Documented By: JIGNA Levothyroxine Sodium (Levothyroxine Sodium 50 Mcg Tablet) 50 mcg PO DAILY@0600 [facility] Last Admin: 10/17/23 05:42 Dose: 50 mcg Documented By: LEXII Losartan Potassium (Losartan Potassium 50 Mg Tablet) 100 mg PO DAILY [facility]; Protocol Last Admin: 10/14/23 08:20 Dose: 100 mg Documented By: JODY Magnesium Hydroxide (Milk Of Magnesia 30 Ml Oral.Susp) 30 ml PO DAILY PRN PRN Reason: Constipation Melatonin (Melatonin 3 Mg Tablet) 6 mg PO BEDTIME PRN PRN Reason: Insomnia Last Admin: 10/14/23 20:12 Dose: 6 mg Documented By: JOHNNY-RIVROHITH Methotrexate (Methotrexate Sodium 2.5 Mg Tablet) 25 mg PO MO@1000 [facility] Last Admin: 10/16/23 11:46 Dose: 25 mg Documented By: JODY Omeprazole (Omeprazole 40 Mg Capsule.) 40 mg PO DAILY [facility] Last Admin: 10/17/23 08:07 Dose: 40 mg Documented By: JIGNA Ondansetron HCl (Ondansetron Hcl 4 Mg/2 Ml Vial) 4 mg IVPUSH Q8H PRN PRN Reason: Nausea and Vomiting Oxycodone HCl (Oxycodone Hcl Immed Release 5 Mg Tablet) 20 mg PO Q4H PRN PRN Reason: Pain, Moderate(Pain Scale 4-6) Last Admin: 10/17/23 14:49 Dose: 20 mg Documented By: JIGNA Prednisone (Prednisone 1 Mg Tablet) 4 mg PO DAILY [facility] Last Admin: 10/17/23 08:07 Dose: 4 mg Documented By: JIGNA Pregabalin (Pregabalin 200 Mg Capsule) 200 mg PO BID [facility] Last Admin: 10/17/23 08:07 Dose: 200 mg Documented By: JIGNA Sodium Chloride (0.9 % Sodium Chloride Flush 3 Ml Syringe) 3 ml IVFLUSH QSHIFT [facility] Last Admin: 10/17/23 15:08 Dose: Not Given Documented By: JIGNA Non-Admin Reason: Previously Administered Tiotropium [place] (Tiotropium [place] 2.5 Mcg 1 Puff/2.5 Mcg Mist.Inhal) 2 puff INHALE RDAILY [facility] Last Admin: 10/17/23 08:04 Dose: 2 puff Documented By: NIURKA Labs 10/14/23 06:01 10/17/23 08:59 Labs: Laboratory Results - last 24 hr 10/17/23 08:59 Anion Gap 13 Estim Creat Clear Calc 56.4 Estimated GFR 51 Random Glucose 102 Calcium 8.8 Assessment and Plan (1) Acute metabolic encephalopathy: Status: Acute (2) UTI due to extended-spectrum beta lactamase (ESBL) producing Escherichia coli: Status: Acute (3) Hypotension: Status: Acute (4) Acute kidney injury: Status: Acute Plan Pt is a 73-year-old female with a PMH significant for?HTN, COPD, rheumatoid arthritis, hypothyroidism, GERD, fibromyalgia, ESBL UTI, and mood disorder who presents to the ED for evaluation of altered mental status. Pt will be admitted to the hospital for treatment and further evaluation of acute metabolic encephalopathy in the setting of UTI and uncontrolled hypertension. CASSANDRA likely secondary to hypotension likely has been noncompliant with antihypertensives at home couple with high dose narcotic use resulting in hypotension all antihypertensives on hold as well as diuretic give bolus of NS and evaluate BP creat improving 2.0-->1.5 hypotension resolved. 10/15 resume lasix decreased to 20mg and atenolol decreased to 25mg daily Acute metabolic encephalopathy secondary to Ecoli ESBL UTI continue meropenem, started 10/13/2023 Per ID (via text), continue meropenem times 10 days total. Midline to be placed 10/16 coag neg staph bacteremia stop vancomcyin Hypertensive urgency. Resolved Pt presented with uncontrolled HTN as high as 238/118 Likely secondary to medication noncompliance due to acute encephalopathy Patient received clonidine, atenolol, and losartan in the ED hold atenolol, losartan due to hypotension. 10/15 resume lasix at 20mg daily and atenolol 25mg daily COPD Not in acute exacerbation Continue home inhalers Chronic lower leg edema on hold Lasix due to hypotension Chronic lower back and leg pain Continue home opioids Rheumatoid arthritis Continue methotrexate, prednisone Hypothyroidism Continue levothyroxine Mood disorder Continue bupropion, duloxetine, Obesity I Weight management Full Code DVT Prophylaxis: Lovenox Pt will ongoing hospitalization for treatment : awaiting placement for iv antibiotics Quality Stroke Does the patient have a stroke diagnosis?: No VTE Prior VTE?: No VTE Risk Level:: Medical - moderate - high VTE Device Contraindication: Treatment Not Indicated VTE Drug Contraindication: N/A - Med Ordered
[2023-10-17] MEDS: Enoxaparin Sodium 40 MG/0.4 ML SYRINGE SUBCUT (20:29)
[2023-10-17] MEDS: Doxazosin Mesylate 2 MG TABLET PO (20:30)
[2023-10-17] MEDS: Melatonin 3 MG TABLET 6 MG PO (20:30)
[2023-10-18 03:32] VITALS: BP 137/74; PULSE 63; RESP 18; TEMP 36.2; O2SAT 94
[2023-10-18] MEDS: Levothyroxine Sodium 50 MCG TABLET PO (05:13)
[2023-10-18] MEDS: oxyCODONE HCl Immed Release 5 MG TABLET 20 MG PO ×2 (05:13→09:39)
[2023-10-18] MEDS: Acetaminophen 325 MG TABLET 650 MG PO (06:09)
[2023-10-18 06:15] VITALS: RESP 18
[2023-10-18 07:05] VITALS: BP 133/67; PULSE 73; RESP 20; TEMP 36.4; O2SAT 94
[2023-10-18] MEDS: Tiotropium Bromide 2.5 mcg 1 PUFF/2.5 MCG MIST.INHAL 2 PUFF INHALE (07:36)
[2023-10-18 07:37] VITALS: PULSE 73; RESP 20; O2SAT 92
[2023-10-18] MEDS: predniSONE 1 MG TABLET 4 MG PO (08:19)
[2023-10-18] MEDS: DULoxetine HCl 60 MG CAPSULE.DR PO (08:19)
[2023-10-18] MEDS: buPROPion HCl XL 300 MG TAB.ER.24H PO (08:20)
[2023-10-18] MEDS: Pregabalin 200 MG CAPSULE PO (08:21)
[2023-10-18] MEDS: Omeprazole 40 MG CAPSULE.DR PO (08:21)
[2023-10-18] MEDS: atenoloL 25 MG TABLET PO (08:21)
[2023-10-18] MEDS: Heparin Sodium,Porcine Flush 50 UNITS, 0.9 % Sodium Chloride Flush 5 ML IVFLUSH (08:22)
--- NOTE | 2023-10-18 08:29 | MHC.CM.PN ---
Per MD, Patient is medically cleared for dc to SNF/STR today. Patient will dc to her first choice SNF/[facility] [place] [facility] today at 1PM, via [facility]. CM met with Patient (and her Daughter/HCP/Susy) at bedside and addressed IMM with them, providing patient with the original and a copy has been placed on the chart.
[2023-10-18] MEDS: 0.9 % Sodium Chloride Flush 3 ML SYRINGE IVFLUSH (09:41)
--- NOTE | 2023-10-18 10:31 | P.DS_ITS ---
DS: Providers Provider Date of Service: 10/18/23 Date of admission: 10/13/23 19:03 Date of discharge: 10/18/23 Primary care physician: Namita Acosta NP Consults: 10/13/23 20:27 Consult to Infectious Diseases Routine Consulting Provider: [facility] Reason for consultation: UTI w/encephalopathy, hx of ESBL E coli Attending physician on discharge: Martin Louie Discharging clinician: Martin Louie DS: Diagnosis Discharge Diagnosis (1) Acute metabolic encephalopathy: Status: Acute (2) UTI due to extended-spectrum beta lactamase (ESBL) producing Escherichia coli: Status: Acute (3) Hypotension: Status: Acute (4) Acute kidney injury: Status: Acute DS: Summary Hospital Course Hospital Course: 73-year-old female with a PMH significant for?HTN, COPD, rheumatoid arthritis, hypothyroidism, GERD, fibromyalgia, ESBL UTI, and mood disorder who presents to the ED for evaluation of altered mental status. Patient seen and evaluated where family is at bedside who helps supplement HPI. ?Patient lives alone and is wheelchair-bound, nonambulatory due to osteoarthritis and right fractured knee not amenable to surgery. Has helped from from director of special events who come daily for 2-3 hours to help out with ADLs. RESOURCE ANALYST today noted patient was lethargic, confused, slow to respond when answering questions, and just ?out of it?. Called EMS to bring patient to hospital for further evaluation. Daughter notes patient has a history of chronic UTIs with similar presentation multiple times in the past. Of note, patient last presented to the hospital with similar symptoms on 01/07- 01/12/2023. Was found then to have ESBL E coli UTI. Was started Corina pending and discharged home on p.o. fosfomycin. Patient reports feels slightly nauseous, but has not had any vomiting. Denies fever, chills. No abdominal pain. Denies chest pain/pressure, palpitations. No shortness a breath or difficulty breathing. Of note, patient has likely been medication noncompliant in the past day+ due to acute encephalopathy and forgetting to take her medications. In the ED pt was hypertensive as high as 234/124, with elevated HR 93, and low- grade fever of 99.2. Labs were significant for initial troponin 31.1, CRP 2.25, cholesterol 262, and LDL 175. No leukocytosis. Stable H& H. No significant electrolyte abnormalities. Renal and hepatic function WNL. UA positive for UTI. CT?of head negative for acute intracranial hemorrhage or edematous territorial infarction, though did show mild underlying microangiopathy and generalized cerebral volume loss. EKG demonstrated normal sinus rhythm with sinus arrhythmia and nonspecific ST abnormalities. Pt was treated in the ED with oxycodone 20 mg p.o., ceftriaxone, clonidine, atenolol, and losartan. Pt will be admitted to the hospital for treatment and further evaluation of acute metabolic encephalopathy in the setting of UTI and uncontrolled hypertension. Hospital course: Patient admitted to the hospital because of acute metabolic encephalopathy in the setting of UTI, uncontrolled hypertension-patient was started on IV antibiotics, blood culture and urine cultures sent, also patient home blood pressure medication started-losartan, atenolol, Lasix-hospital course complicated by CASSANDRA, hypotension possibly related to blood pressure medications(losrtan on hold and lasix adjusted to 20 mg daily as well as atenolol adjusted to 25 mg daily)-with these medication chnages-Patient's hypotension improved , UTI -patient improved and patient's urine culture grew ESBL-switched to meropenem and midline placed, patient started on IV ertapenem which she will need 5 more days(patient already got 5 days of antibiotics). CASSANDRA: Seems to be improved with holding blood pressure medications, monitor BMP outpatient. Also monitor outpatient blood pressure, up titrate blood pressure medications if blood pressure stays above 140mmhg. urinary retention episode: Added doxazosin, patient is urinating better. If if has further episodes of urinary retention, consider outpatient urology evaluation. Plan: Ertapenem for 5 more days. Lasix adjusted to 20 mg daily, atenolol 25 mg daily, monitor blood pressure closely out patiently if needed and titrate atenolol as needed for blood pressure, can reintroduce losartan if kidney function allows. urinary retention episode: Added doxazosin, patient is urinating better. If if has further episodes of urinary retention, consider outpatient urology evaluation. Monitor BMP closely. Above management discussed with the patient and her daughter in detail length both understand and in agreement with the above plan, time spent 40 minute. Time Attestation Total time managing care of this patient today: 40 mintues. Discharge Coordination Time (in mins): 40min Quality: Safe Use of Opioids Does Pt have an Active Cancer Diagnosis on the Problem List?: No Quality: Stroke Does the patient have a stroke diagnosis?: No Physical Exam Vital Signs: Vital Signs: Last Vital Signs Temp 97.6 F 10/18/23 07:05 Pulse 73 10/18/23 07:37 Resp 20 10/18/23 07:37 BP 133/67 10/18/23 07:05 Pulse Ox 94 10/18/23 07:05 O2 Del Method Room Air 10/18/23 07:05 O2 Flow Rate 2 10/16/23 15:36 BMI result Body Mass Index 31.4 Appearance: Alert.? Oriented X3. cvs: rrr, [id number] , no murmur res: clear to auscultation ,no rhonchii or wheezing abd: no rebound or guarding ,nt, bs present. ext pulses present , no cyanosis . neuro: nonfocal. DS: Data Data Completed and Pending Labs on day of discharge: Preliminary micro results at discharge 10/13/23 15:08 Blood Culture - Preliminary Blood - Venous No growth after 48 hours. Imaging Chest x-ray: Radiologist's impression: ITS Impressions Head CT 10/13/23 12:14 IMPRESSION: 1. No evidence of acute intracranial hemorrhage or edematous territorial infarction. Mild underlying microangiopathy and generalized cerebral volume loss. 2. CTA of the head and neck without proximal occlusion or flow-limiting stenosis. Tortuosity of the carotid arteries as may be seen with underlying hypertension. 3. 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 4. Emphysema. Head/Neck CTA 10/13/23 12:26 IMPRESSION: 1. No evidence of acute intracranial hemorrhage or edematous territorial infarction. Mild underlying microangiopathy and generalized cerebral volume loss. 2. CTA of the head and neck without proximal occlusion or flow-limiting stenosis. Tortuosity of the carotid arteries as may be seen with underlying hypertension. 3. 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 4. Emphysema. Discharge Plan Discharge Anticipated Discharge Date/Time: 10/17/23 11:37 Patient Disposition: Xfer SNF Discharge Diagnosis: hypotension ,cassandra, uti Referrals: [facility] [Outside] - 1 Week Namita Acosta NP [Primary Care Provider] - 1 Week Discharge Medications: New atenolol 25 mg Tablet 25 mg PO DAILY Qty: 30 0RF Protocol: Hold for SBP/HR < HOLD for SBP < : 90 HOLD for HR < : 60 doxazosin 2 mg Tablet 2 mg PO BEDTIME Qty: 30 0RF Protocol: Hold for SBP< HOLD for SBP < : 90 ertapenem 1 gram recon soln 1 g IV DAILY Qty: 5 0RF Continued omeprazole 40 mg capsule,delayed release(DR/EC) 40 mg PO DAILY@0630 methotrexate sodium 2.5 mg tablet 10 tab PO MO prednisone 1 mg tablet 4 tab PO DAILY levothyroxine 50 mcg tablet 50 mcg PO DAILY@0630 ergocalciferol (vitamin D2) 1,250 mcg (50,000 unit) capsule 1,250 mcg PO TH albuterol sulfate 90 mcg/actuation HFA aerosol inhaler 2 puff PO Q6H PRN (Reason: wheezing) bupropion HCl 300 mg tablet extended release 24 hr 300 mg PO DAILY duloxetine 60 mg capsule,delayed release(DR/EC) 60 mg PO BID oxycodone 20 mg tablet 20 mg PO Q4H ondansetron 4 mg tablet,disintegrating 4 mg PO Q8H PRN (Reason: nausea and vomiting) Qty: 10 0RF folic acid 1 mg tablet 1 mg PO DAILY fluticasone propionate [Flonase Allergy Relief] 50 mcg/actuation spray,suspension 1 spray intranasal BID Qty: 16 0RF Rx Instructions: administer into each nostril pregabalin 200 mg capsule 200 mg PO BID Incruse Ellipta 62.5 mcg/actuation blister with device 1 inh inhalation DAILY PRN (Reason: Shortness Of Breath) prednisone 5 mg tablet 5 - 10 mg PO DAILY PRN (Reason: arthritis flare) Changed furosemide 20 mg tablet 20 mg PO DAILY Qty: 30 0RF Held losartan 50 mg tablet 50 mg PO DAILY Hold Instructions: Resume on 11/01/23. repeat bmp before starting losartan Discontinued atenolol 50 mg tablet 50 tab PO BID Discharge Orders: Discharge Order (Routine); Ordered 10/18/23 Ordered By: Martin Louie Diet: Advance to usual diet Activity on Discharge: As tolerated Stand Alone Forms: Patient Portal Discharge page Print Language: Tajik Care Plan Goals: Patient admitted to the hospital because of acute metabolic encephalopathy in the setting of UTI, uncontrolled hypertension-patient was started on IV antibiotics, blood culture and urine cultures sent, also patient home blood pressure medication started-losartan, atenolol, Lasix-hospital course complicated by CASSANDRA, hypotension possibly related to blood pressure medications, Patient hypotension improved with the above management , also patient's urine culture grew ESBL-switched to meropenem and midline placed, patient started on IV ertapenem which she will need 5 more days. CASSANDRA: Seems to be improved with holding blood pressure medications, monitor BMP outpatient. Also monitor outpatient blood pressure, up titrate blood pressure medications if blood pressure stays above 140mmhg. Above management discussed with the patient in detail length she understand and in agreement with the above plan, time spent 40 minute. Health Concerns: As above. Plan of Treatment: As above. Assessment: As above.
[2023-10-18 11:04] VITALS: BP 127/64; PULSE 63; RESP 20; TEMP 36.2; O2SAT 93
== END 2023-10-18 13:30 | disposition skilled nursing facility (03) | DRG 689 ==
LOC: HO.ED 19:38 → HO.EDOVER 20:09 → HO.IMC 22:32
PROVIDERS: Nurse Practitioner Acute Care; Physician Assistant; Physician Assistant Medical; Admitting Provider Student in an Organized Health Care Education/Training Program; Emergency Provider Emergency Medicine; PCP Nurse Practitioner Adult Health; Visit Provider Internal Medicine
DX: N39.0 Urinary tract infection, site not specified (principal); G93.41 Metabolic encephalopathy; N17.9 Acute kidney failure, unspecified; Z16.12 Extended spectrum beta lactamase (ESBL) resistance; E66.8 Other obesity; B96.20 Unspecified Escherichia coli [E. coli] as the cause of diseases classified elsewhere; Z68.31 Body mass index [BMI] 31.0-31.9, adult; I95.9 Hypotension, unspecified; E03.9 Hypothyroidism, unspecified; M06.9 Rheumatoid arthritis, unspecified; J44.9 Chronic obstructive pulmonary disease, unspecified; I16.0 Hypertensive urgency; Z20.822 Contact with and (suspected) exposure to COVID-19; Z91.148 Patient's other noncompliance with medication regimen for other reason; Z79.51 Long term (current) use of inhaled steroids; Z79.52 Long term (current) use of systemic steroids; Z79.890 Hormone replacement therapy; Z79.899 Other long term (current) drug therapy
CPT/HCPCS: 0241U; 36410; 36415; 70450; 70496; 70498; 80048; 80053; 80061; 80202; 80307; 81001; 82565; 82947; 83605; 83735; 84484; 85025; 85610; 85730; 86140; 87040; 87086; 87088; 87147; 87186; 87205; 93005; 97161; 97530; 99285; C1751; J0696; J1335; J1642; J1650; J2185; J3370; Q9967

== ENCOUNTER → 2023-10-13 11:45 | Outpatient (BNV) | payer MEDICARE, MEDICAID, SELFPAY | PROVIDERS: Emergency Provider Emergency Medicine; Visit Provider Internal Medicine Cardiovascular Disease | DX: R94.31 Abnormal electrocardiogram [ECG] [EKG] (principal) | CPT/HCPCS: 93010 ==

== ENCOUNTER → 2023-10-13 19:03 | Outpatient (BNV) | payer MEDICARE, MEDICAID, SELFPAY | PROVIDERS: Admitting Provider Student in an Organized Health Care Education/Training Program; Emergency Provider Emergency Medicine; Visit Provider Student in an Organized Health Care Education/Training Program | DX: G93.41 Metabolic encephalopathy (principal); N39.0 Urinary tract infection, site not specified; B96.29 Other Escherichia coli [E. coli] as the cause of diseases classified elsewhere; Z16.12 Extended spectrum beta lactamase (ESBL) resistance; I95.9 Hypotension, unspecified; N17.9 Acute kidney failure, unspecified | CPT/HCPCS: 99223; 99231; 99232; 99239 ==

== ENCOUNTER 2023-10-23 14:53 | Outpatient (AMB) | payer MEDICARE, MEDICAID, SELFPAY ==
--- NOTE | 2023-10-23 15:09 | MHC.OFFVIS ---
Vital Signs 10/23/23 15:15 Pulse 62 Pulse Source Pulse Oximeter Temp 98.6 F Temp Source Oral Pulse Oximetry (%) 96 Oxygen Delivery Method Room Air Intake Visit Reasons: /JAIME morgan/encephalopathy, hx of ESBL E coli Allergies lisinopril [LISINOPRIL] Allergy (Severe, Verified 10/13/23 11:55) ANAPHYLAXIS Sulfa (Sulfonamide Antibiotics) [SULFA (SULFONAMIDE ANTIBIOTICS)] Allergy (Intermediate, Verified 08/02/23 09:52) RASH tramadol [TRAMADOL] Allergy (Intermediate, Verified 08/02/23 09:52) RASH Ufufygb-NFC-AlN Reductase Inhibitor [Hdtwsvu-Jze-Bgn Reductase Inhibitor] Allergy (Verified 08/02/23 09:52) Rash hydrochlorothiazide [HCTZ] Adverse Reaction (Unknown, Verified 08/02/23 09:52) ABNORMAL LABS? HPI HPI dr.sig SHAMIKA morgan/encephalopathy, hx of ESBL E coli: Details: She is getting last dose Ertapenem on 10/22. She has no dysuria or complaints. She had tenderness and swelling right arm and feeling better now,no swelling. [facility] Medical History History of ESBL E. coli infection Osteomyelitis COPD (chronic obstructive pulmonary disease) Rheumatoid lung Hypothyroidism Congestive heart failure Fibromyalgia HTN (hypertension) Depression Rheumatoid arthritis Surgical History Hx of prior ablation treatment Knee joint replacement status Family History Father No problems noted. Other Heart disease Social History Household Members: None Household Members Other:: 0 Housing: Apartment Do you presently have visiting nurse or other home services: Yes Unable to assess alcohol history related to: Unknown Alcohol intake: never Patient Tobacco Use Status: Former Tobacco user service: No Review of Systems Const All systems reviewed & are unremarkable except as noted in HPI and below Physical Exam Vital Signs: Last Vital Signs Temp 98.6 F 10/23/23 15:15 Pulse 62 10/23/23 15:15 Pulse Ox 96 10/23/23 15:15 Oxygen Delivery Method Room Air 10/23/23 15:15 Const General: cooperative HEENT Head: Yes normal to inspection Face and sinus: Yes normal facial exam Mouth: Normal oral and palatal mucosa present Teeth and gingiva: dentition normal Eyes General: appearance normal, both eyes and all related structures Pupils: Equal, round and reactive pupils present Resp Effort & Inspection: normal respiratory effort Cardio Rate: regular rate Rhythm: regular rhythm GI Palpation (GI): Soft to palpation and nontender General: Yes no CVA tenderness Back/Spine/Pelvis Back: no CVA tenderness Skin General skin exam: no rashes or lesions noted Neuro General: moves all extremities Cranial nerves: Yes Equal, round and reactive pupils present Extrem General: Yes normal to inspection Psych Appearance: grossly normal Assessment & Plan Assessment & Plan (1) UTI due to extended-spectrum beta lactamase (ESBL) producing Escherichia coli: Code(s): N39.0 - Urinary tract infection, site not specified; B96.29 - Other Escherichia coli [E. coli] as the cause of diseases classified elsewhere; Z16.12 - Extended spectrum beta lactamase (ESBL) resistance Category: Medical Plan Resistant E coli in urine,prior episode last year,sepsis likely No further antibiotics at this time. Line is out. No recheck urine unless symptomatic. No preventive antibiotics. Coding Level of Care Code Est Pt Level 3 (77425) Diagnoses UTI due to extended-spectrum beta lactamase (ESBL) producing Escherichia coli N39.0; B96.29; Z16.12
[2023-10-23 15:15] VITALS: PULSE 62; TEMP 37; O2SAT 96
== END 2023-10-23 18:34 | disposition home or self-care (01) ==
LOC: HO.HID 14:53
PROVIDERS: PCP Nurse Practitioner Adult Health; Visit Provider Internal Medicine
DX: N39.0 Urinary tract infection, site not specified (principal); B96.29 Other Escherichia coli [E. coli] as the cause of diseases classified elsewhere; Z16.12 Extended spectrum beta lactamase (ESBL) resistance
CPT/HCPCS: 99213

== ENCOUNTER → 2023-10-23 14:53 | Outpatient (BNVA) | payer MEDICARE, MEDICAID, SELFPAY | PROVIDERS: PCP Nurse Practitioner Adult Health; Visit Provider Internal Medicine | DX: N39.0 Urinary tract infection, site not specified (principal); B96.29 Other Escherichia coli [E. coli] as the cause of diseases classified elsewhere; Z16.12 Extended spectrum beta lactamase (ESBL) resistance | CPT/HCPCS: 99212 ==

== ENCOUNTER 2023-11-24 14:49 | Inpatient (IN) | payer MEDICARE, MEDICAID, SELFPAY ==
[2023-11-24] VITALS (7 sets, daily range): BP systolic 140–197; BP diastolic 85–108; PULSE 75–78; RESP 17–18; TEMP 37.1–37.3; O2SAT 95–98; BMI 32.8
--- NOTE | ~2023-11-24 | XR_ITS ---
EXAMINATION: X-ray right shoulder X-ray left shoulder CLINICAL INFORMATION: Fall, right shoulder pain. Worsening left pain from arthritis COMPARISON: None TECHNIQUE: Right shoulder 4 views. Left shoulder 3 views. FINDINGS: Right shoulder: There is superior positioning of the humeral head with respect to the glenoid, raising concern for rotator cuff pathology/tear. Small inferior humeral head osteophyte. Glenohumeral joint space is relatively preserved. No visible acute fracture or dislocation. Moderate acromioclavicular arthritis. No abnormal soft tissue calcification. Left shoulder: Moderate acromioclavicular arthritis. Glenohumeral joint space is maintained. No visible acute fracture or dislocation. No abnormal soft tissue calcification. XR/XR shoulder RT min 2V IMPRESSION: Right shoulder: No radiographically evident acute fracture. Superior positioning of the humeral head, raising concern for rotator cuff pathology/tear.. Moderate acromioclavicular arthritis. Left shoulder: Moderate acromioclavicular osteoarthritis. No radiographically evident acute fracture. Electronically signed by: Ganesh Espinoza MD 11/26/2023 05:04 PM EDT
--- NOTE | ~2023-11-24 | CT_ITS ---
EXAMINATION: CT KNEE WITHOUT CONTRAST, LEFT CLINICAL INFORMATION: Possible tibial plateau fracture COMPARISON: Images earlier today TECHNIQUE: Multiple serial thin slice helical CT scan images through the left knee were obtained. Contrast was not utilized This CT examination was performed using dose optimization techniques as appropriate, variously including the following: *Automated exposure control *Adjustment of mA and/or kV according to patient size (this includes techniques or standardized protocols for targeted exams where dose is matched to indication/reason for exam; i.e. extremities or head) *Use of iterative reconstruction technique DLP: 198 mGy-cm FINDINGS: Complex knee joint effusion is seen with small ossific loose bodies. I do not appreciate any fat layering to suggest a lipohemarthrosis. Patient is status post total knee arthroplasty. The hardware appears to be intact. There is well-corticated lucency seen within the posterior medial tibial plateau but this is not have the typical appearance of a fracture. Chronic erosive changes or degenerative changes would be suspected. Vascular calcifications seen. CT/CT knee LT wo IV con IMPRESSION: Status post total knee arthroplasty. There is a well-corticated lucency seen within the posterior medial tibial plateau but this is not have the typical appearance of a fracture. Chronic erosive changes would be suspected but fine detail is obscured by artifact from the adjacent knee prosthesis. There is a complex knee joint effusion with small ossific loose bodies. I do not appreciate any fat layering to suggest a lipohemarthrosis. This critical result was discussed with Rony Geller MD at 11/27/2023 5:31 PM CDT and it was ascertained that the content and urgency of the report was understood at the time of direct communication. Electronically signed by: Jason Santo MD 11/27/2023 06:32 PM EDT
--- NOTE | ~2023-11-24 | XR_ITS ---
Examination: XR knee RT 2V (accession [id number]), XR knee LT 2V (accession [id number]) Indication: fall, pain Comparison: No pertinent prior studies are currently available for comparison. Technique: 2 views of each knee obtained Findings: Right knee: Patient is status post right total knee arthroplasty. Hardware appears be intact with no evidence for periprosthetic fracture or loosening. Left knee: Small joint effusion. Extensive tricompartmental degenerative changes are seen. There is significant degenerative change in the medial tibial plateau. Medial tibial plateau fracture of indeterminate age is suggested. Unfortunately I do not have any prior films available for direct comparison. If this were an acute fracture I would expect less sclerosis and a larger joint effusion suggesting this is more likely chronic deformity. Uncovertebral correlation would be needed. XR/XR knee RT 2V Impression: Extensive chronic appearing and postoperative changes to the right knee. Extensive degenerative changes to the left knee. There is a medial tibial plateau fracture of indeterminate age. Unfortunately I do not have any prior films available for direct comparison. If there is clinical concern for acute fracture in this location, further evaluation with CT scan could be obtained to evaluate further. Electronically signed by: Jason Santo MD 11/27/2023 03:17 PM EDT
--- NOTE | ~2023-11-24 | CT_ITS ---
EXAM: CT HEAD WITHOUT CONTRAST CT CERVICAL SPINE INDICATION: fall, pain TECHNIQUE: A noncontrast CT scan was performed from the skull base to the vertex. A noncontrast CT scan of the cervical spine was performed from the base of the skull through T1 at 2.5 mm and 0.625 mm collimation. Coronal and sagittal reformats were obtained at the acquisition workstation. This CT examination was performed using dose optimization techniques as appropriate, variously including the following: * Automated exposure control * Adjustment of mA and/or kV according to patient size (this includes techniques or standardized protocols for targeted exams where dose is matched to indication/reason for exam; i.e. extremities or head) * Use of iterative reconstruction technique COMPARISON: CT head October 13, 2023 FINDINGS: Head: There is no evidence of acute intracranial hemorrhage or edematous territorial infarction. No abnormal mass effect or midline shift is seen. Fletcher to white matter differentiation is well preserved. No extra-axial fluid collections are identified. Commensurate prominence of the ventricles and sulci is compatible with generalized parenchymal volume loss. There is patchy periventricular and subcortical white matter hypoattenuation, most likely representing microangiopathic disease . Bilateral lens extraction. No acute calvarial fracture.. Ethmoid sinus mucosal thickening. Mastoid air cells are well-aerated. Cervical Spine: The atlantooccipital and atlantoaxial articulations remain well aligned. Straightening of the normal cervical lordosis. Mild levoconvex curvature. Mild anterolisthesis of C3 on C4, C4 on C5. Atlantodens degeneration. No acute fractures identified. Multilevel disc degenerative changes. More prominent findings of severe disc degeneration at C5-6, C6-7. Multilevel facet degeneration.. There is a 1 cm sclerotic focus in C4 vertebral body, indeterminate. No prevertebral soft tissue swelling. No suspicious findings. Mild biapical scarring. CT/CT cervical spine wo IV con IMPRESSION: 1. No CT evidence of acute intracranial hemorrhage or edematous territorial infarction. 2. No CT evidence of acute cervical spine fracture. 3. Cervical spondylosis. Severe C5-6, C6-7 disc degeneration. 4. 1 cm sclerotic focus in the C4 vertebral body, indeterminate. No priors available for comparison. Correlate with patient's clinical history. Consider further evaluation with bone scan, as clinically indicated. Electronically signed by: Ganesh Espinoza MD 11/24/2023 05:35 PM EDT
--- NOTE | ~2023-11-24 | CT_ITS ---
EXAMINATION: CT ABDOMEN AND PELVIS WITHOUT CONTRAST CT LUMBAR SPINE WITHOUT CONTRAST ( CLINICAL INFORMATION: low back pain, trauma. COMPARISON: No pertinent prior studies are available for comparison. TECHNIQUE: Multidetector volumetric imaging was performed from the thoracic inlet through the pubic symphysis as well as through the lumbar spine, following the administration of: Oral contrast: No Intravenous contrast: None Sagittal and coronal reformatted images were obtained on the technologist workstation. Total exam dose-length product: 982.31 mGy-cm (abdomen and pelvic CT), 843.74 mGy-cm (CT lumbar spine). FINDINGS: ABDOMEN/PELVIS: LUNG BASES: The visualized lung bases are unremarkable. No pleural or pericardial effusion. LIVER : The liver is normal in size, shape, and attenuation. No focal hepatic lesion or biliary ductal dilatation is present. GALLBLADDER, AND BILIARY TREE The gallbladder is unremarkable with no evidence of radiopaque gallstones, gallbladder wall thickening, or obvious pericholecystic inflammatory changes. PANCREAS: Normal; no mass or surrounding fluid. SPLEEN: Normal size. No focal lesion. Small splenule is noted in the left upper abdominal quadrant. ADRENAL GLANDS: No focal right adrenal nodule. A 1.8 cm left adrenal nodule representing adrenal adenoma by CT Hounsfield criteria is a stable finding since previous CT scan of 11/14/2020 and no further imaging follow-up of this finding is warranted. KIDNEYS AND URETERS: There is progressive moderate to severe atrophy of the left kidney. An exophytic hypodense lesion from the left mid kidney measures 2.5 cm and represents a cyst by CT Hounsfield criteria; no further imaging follow-up of this finding is warranted. Partially exophytic right renal upper pole hypodense lesions measuring up to 2 cm represent cysts by CT Hounsfield criteria further imaging follow-up of this cyst is warranted. There are 3 partially exophytic hyperdense lesions from the lower pole of the right kidney with the largest one measuring 1.8 cm; these lesions have mildly increased in size since the previous CT scan of 11/14/2020 (the largest one measured 1.4 cm). The hyperdense right renal lesions likely represent hyperdense cysts and no further imaging follow-up is warranted, unless clinically warranted. URINARY BLADDER: No focal mass or wall thickening seen. No bladder calculi. Trace air focus noted in the urinary bladder is nonspecific; similar finding was noted on the previous CT scan of 08/02/2023. Recommend correlation with recent instrumentation. Finding can be seen in the setting of cystitis. GASTROINTESTINAL TRACT: The stomach is mildly distended. No abnormal small bowel dilatation. The colon is normal in caliber. No evidence of colonic wall thickening or pericolonic fat stranding. An appendix is normal. Moderate stool burden in the colon. VASCULAR STRUCTURES: No evidence of pathologically enlarged lymph nodes. Moderate calcific atherosclerosis of the aortoiliac vessels without focal aneurysmal dilatation. Abdominal aorta is mildly dilated measuring 3 cm in maximum diameter. LYMPH NODES: No lymphadenopathy. PELVIC VISCERA: Unremarkable CT appearance of the uterus and adnexa/ovaries. Small volume air is noted in the vaginal cuff, likely external in origin. FREE FLUID: None. ABDOMINAL WALL: No significant hernia is appreciated. LUMBAR SPINE: There is diffuse osteopenia. The vertebral body heights are maintained. There is mild grade 1 anterolisthesis of L4 over L5. Facet arthropathy is noted at multiple levels bilaterally. Intervertebral disc spaces are grossly preserved. Vacuum disc phenomena is noted at multiple levels. Posterior elements are intact and in normal alignment. Chronic L1 and L2 right transverse process fractures are again noted. OTHER OSSEOUS STRUCTURES: Chronic fracture deformity of posterior segment of the right 10th rib is noted. No evidence of acute fracture in the pelvis and bilateral hips. CT/CT abdomen pelvis wo IV con IMPRESSION: No acute traumatic injury in the abdomen and pelvis. No evidence of acute fracture or traumatic subluxation in the lumbar spine. Nonspecific tiny air focus in the urinary bladder. Other chronic findings as described above. Electronically signed by: Dieter Fitzpatrick MD 11/24/2023 08:47 PM EDT
--- NOTE | ~2023-11-24 | XR_ITS ---
Examination: XR knee RT 2V (accession [id number]), XR knee LT 2V (accession [id number]) Indication: fall, pain Comparison: No pertinent prior studies are currently available for comparison. Technique: 2 views of each knee obtained Findings: Right knee: Patient is status post right total knee arthroplasty. Hardware appears be intact with no evidence for periprosthetic fracture or loosening. Left knee: Small joint effusion. Extensive tricompartmental degenerative changes are seen. There is significant degenerative change in the medial tibial plateau. Medial tibial plateau fracture of indeterminate age is suggested. Unfortunately I do not have any prior films available for direct comparison. If this were an acute fracture I would expect less sclerosis and a larger joint effusion suggesting this is more likely chronic deformity. Uncovertebral correlation would be needed. XR/XR knee LT 2V Impression: Extensive chronic appearing and postoperative changes to the right knee. Extensive degenerative changes to the left knee. There is a medial tibial plateau fracture of indeterminate age. Unfortunately I do not have any prior films available for direct comparison. If there is clinical concern for acute fracture in this location, further evaluation with CT scan could be obtained to evaluate further. Electronically signed by: Jason Santo MD 11/27/2023 03:17 PM EDT
--- NOTE | ~2023-11-24 | CT_ITS ---
EXAMINATION: CT KNEE WITHOUT CONTRAST, RIGHT CLINICAL INFORMATION: Possible fracture on x-ray. COMPARISON: Radiographs 11/27/2023. TECHNIQUE: A noncontrast CT of the right knee is performed with sagittal and coronal reformats. This CT examination was performed using dose optimization techniques as appropriate, variously including the following: *Automated exposure control *Adjustment of mA and/or kV according to patient size (this includes techniques or standardized protocols for targeted exams where dose is matched to indication/reason for exam; i.e. extremities or head) *Use of iterative reconstruction technique DLP: 208 mGy-cm FINDINGS: There are extensively comminuted, subacute or chronic-appearing fractures throughout the medial and lateral tibial plateaus with surface depression/remodeling most prominent at the anterior aspect of the medial tibia where there are fragments of the tibial rim displaced anteriorly and medially. Fragments with osteophytes are also projected posteriorly, which appear partially healed. There are areas of sclerosis along the fracture lines and foci of faint mineralization. Mild genu varus. Moderate joint effusion. CT/CT knee RT wo IV con IMPRESSION: Extensively comminuted fractures throughout the tibial articular surface with displacement, areas of mineralization and foci of partial healing compatible with subacute/chronic fractures. There is surface depression/remodeling with mild genu varus and a moderate joint effusion. Electronically signed by: Chance Rodríguez MD 11/28/2023 09:28 AM EDT
--- NOTE | ~2023-11-24 | XR_ITS ---
EXAMINATION: X-ray right shoulder X-ray left shoulder CLINICAL INFORMATION: Fall, right shoulder pain. Worsening left pain from arthritis COMPARISON: None TECHNIQUE: Right shoulder 4 views. Left shoulder 3 views. FINDINGS: Right shoulder: There is superior positioning of the humeral head with respect to the glenoid, raising concern for rotator cuff pathology/tear. Small inferior humeral head osteophyte. Glenohumeral joint space is relatively preserved. No visible acute fracture or dislocation. Moderate acromioclavicular arthritis. No abnormal soft tissue calcification. Left shoulder: Moderate acromioclavicular arthritis. Glenohumeral joint space is maintained. No visible acute fracture or dislocation. No abnormal soft tissue calcification. XR/XR shoulder LT min 2V IMPRESSION: Right shoulder: No radiographically evident acute fracture. Superior positioning of the humeral head, raising concern for rotator cuff pathology/tear.. Moderate acromioclavicular arthritis. Left shoulder: Moderate acromioclavicular osteoarthritis. No radiographically evident acute fracture. Electronically signed by: Ganesh Espinoza MD 11/26/2023 05:04 PM EDT
--- NOTE | 2023-11-24 15:08 | ED.GENADULT ---
HPI - General Adult General Chief complaint: Fall Stated complaint: FELL Time Seen by Provider: 11/24/23 15:07 Source: patient and EMS Mode of arrival: EMS Limitations: no limitations History of Present Illness ED Provider: Daniela Lentz PA-C HPI narrative: Patient is a 73 year old assigned female at with a history of ESBL UTIs presenting to the emergency department today with buttock / low back pain after a fall. Patient states that she was attempting to transfer herself from the wheelchair to the toilet when she fell onto her bottom. Patient states that she was recently treated for an ESBL UTI. Patient denies any dizziness, lightheadedness, abdominal pain, nausea, vomiting, fever, chills, blurry vision, double vision, loss of vision, chest pain, difficulty breathing, shortness of breath, night sweats, pain with urination, increased urinary frequency, increased urinary urgency, blood in her urine or stool, syncope or a near syncopal episode, bowel incontinence, bladder incontinence, or any other complaints at this time. Relieving factors: none Exacerbating factors: none Associated symptoms: denies other symptoms Treatments prior to arrival: none Related Data Home Medications ?Medication ?Instructions ?Recorded ?Confirmed albuterol sulfate 90 mcg/actuation 2 puff PO Q6H PRN wheezing 08/23/21 10/13/23 aerosol inhaler bupropion HCl 300 mg 24 hr tablet, 300 mg PO DAILY 08/23/21 10/13/23 extended release duloxetine 60 mg capsule,delayed 60 mg PO BID 08/23/21 10/13/23 release ergocalciferol (vitamin D2) 1,250 1,250 mcg PO TH 08/23/21 10/13/23 mcg (50,000 unit) capsule levothyroxine 50 mcg tablet 50 mcg PO DAILY@62908/23/21 10/13/23 methotrexate sodium 2.5 mg tablet 10 tab PO MO 08/23/21 10/13/23 omeprazole 40 mg capsule,delayed 40 mg PO DAILY@62908/23/21 10/13/23 release oxycodone 20 mg tablet 20 mg PO Q4H Pain 08/23/21 10/13/23 prednisone 1 mg tablet 4 tab PO DAILY 08/23/21 10/13/23 losartan 50 mg tablet 50 mg PO DAILY 02/16/22 10/13/23 prednisone 5 mg tablet 5 - 10 mg PO DAILY PRN arthritis 02/16/22 10/13/23 flare pregabalin 200 mg capsule 200 mg PO BID 01/07/23 10/13/23 umeclidinium 62.5 mcg/actuation 1 inh inhalation DAILY PRN 01/07/23 10/13/23 blister powder for inhalation Shortness Of Breath (Incruse Ellipta) folic acid 1 mg tablet 1 mg PO DAILY 10/13/23 10/13/23 Previous Rx's ?Medication ?Instructions ?Recorded fluticasone propionate 50 1 spray intranasal BID #16 grams 01/06/23 mcg/actuation nasal spray,suspension (Flonase Allergy Relief) ondansetron 4 mg disintegrating 4 mg PO Q8H PRN nausea and 08/02/23 tablet vomiting #10 tabs atenolol 25 mg tablet 25 mg PO DAILY #30 tabs 10/17/23 doxazosin 2 mg tablet 2 mg PO BEDTIME #30 tabs 10/17/23 ertapenem 1 gram solution for 1 g IV DAILY uti #5 ea 10/17/23 injection furosemide 20 mg tablet 20 mg PO DAILY #30 tabs 10/17/23 Allergies Allergy/AdvReac Type Severity Reaction Status Date / Time lisinopril [LISINOPRIL] Allergy Severe ANAPHYLAXIS Verified 11/24/23 14:57 Sulfa (Sulfonamide Allergy Intermediate RASH Verified 11/24/23 14:57 Antibiotics) [SULFA (SULFONAMIDE ANTIBIOTICS)] tramadol [TRAMADOL] Allergy Intermediate RASH Verified 11/24/23 14:57 Pbuekkt-XZM-XnS Reductase Allergy Rash Verified 11/24/23 14:57 Inhibitor [Jvuiujg-Lls-Qzy Reductase Inhibitor] hydrochlorothiazide [HCTZ] AdvReac Unknown ABNORMAL Verified 11/24/23 14:57 LABS? Review of Systems Constitutional: Constitutional: Reports no additional constitutional complaints, Denies chills, Denies fever(s) and Denies night sweats Eyes: Eyes: Reports no additional eye complaints, Denies blurry vision, Denies change in vision, Denies diplopia, Denies eye discharge, Denies loss of vision and Denies eye pain ENT: Denies dizziness Cardiovascular: Cardiovascular: Reports no additional cardiovascular complaints, Denies chest pain, Denies lightheadedness, Denies Loss of Consciousness and Denies dyspnea Respiratory: Respiratory: Reports no additional respiratory complaints and Denies dyspnea Gastrointestinal: Gastrointestinal: Reports no additional gastrointestinal complaints, Denies abdominal pain, Denies melena, Denies hematochezia, Denies change in bowel habits and Denies change in stool character Genitourinary: Genitourinary: Denies hematuria, Denies urinary frequency, Denies dysuria, Denies urinary incontinence, Denies urinary hesitancy and Denies urinary urgency Musculoskeletal: Musculoskeletal: Reports no additional musculoskeletal complaints, Denies numbness and Denies tingling Comments: buttock and back pain Neurologic: Denies dizziness, Denies loss of vision, Denies numbness and Denies tingling Psychiatric: Psychiatric: Reports no additional psychiatric complaints Endocrine: Endocrine: Reports no additional endocrine complaints Hematologic/Lymphatic: Hematologic/Lymphatic: Reports no additional hematologic/lymphatic complaints Allergic/Immunologic: Allergic/Immunologic: Reports no additional allergic/immunologic complaints [facility] Past Medical History Attestation statement: The following information was validated with the patient. Source: old records reviewed and nursing notes reviewed Medical History History of ESBL E. coli infection Osteomyelitis COPD (chronic obstructive pulmonary disease) Rheumatoid lung Hypothyroidism Congestive heart failure Fibromyalgia HTN (hypertension) Depression Rheumatoid arthritis Surgical History Hx of prior ablation treatment Knee joint replacement status Family History Family History Father No problems noted. Other Heart disease Social History Social History Household Members: None Household Members Other:: 0 Housing: Apartment Do you presently have visiting nurse or other home services: Yes Unable to assess alcohol history related to: Unknown Alcohol intake: never Patient Tobacco Use Status: Former Tobacco user Smoked in Last 30 Days: No Use of substances other than those prescribed or required for medical reasons: No Advance Directives: No Advance Directives Information Provided: No Do you have a plan to hurt others: No Plan service: No Physical Exam ED Vital Signs: Vital Signs - 24 hr 11/24/23 14:54 11/24/23 15:00 11/24/23 16:50 Temperature 99.0 F 99.0 F 99.2 F Pulse Rate 77 77 75 Respiratory Rate 18 18 17 Blood Pressure 162/90 H 162/90 H 180/94 H Pulse Oximetry 95 95 96 Oxygen Delivery Method Room Air Room Air Room Air 11/24/23 18:57 Temperature 98.8 F Pulse Rate 78 Respiratory Rate 18 Blood Pressure 197/106 H Pulse Oximetry 98 Oxygen Delivery Method Room Air BMI result Body Mass Index 32.8 Const General: cooperative, no acute distress, alert and awake Nutritional Appearance: well nourished Orientation/consciousness: patient oriented x3 Limitations: no limitations HENMT Head: Yes normal to inspection and Yes atraumatic Ears: hearing grossly normal bilaterally and external ears normal General nose exam: Normal external nose present, no nasal discharge noted and no epistaxis Face and sinus: Yes normal facial exam, No abrasion and No laceration Mouth: Normal oral and palatal mucosa present, no drooling and no muffled voice Eyes General: appearance normal, both eyes and all related structures Periorbital: periorbital findings normal Eyelids: Yes eyelids normal Conjunctivae: conjunctivae normal Pupils: Equal, round and reactive pupils present EOM: EOMs intact bilaterally Neck Neck: Yes normal visual inspection, Yes full ROM and Yes no lymphadenopathy Chest Chest palpation & inspection: normal inspection of the chest Resp Effort & Inspection: normal respiratory effort and able to speak in complete sentences GI Inspection: Yes normal to inspection Neuro General: patient oriented x3 and moves all extremities Cranial nerves: Yes Equal, round and reactive pupils present Cognition (Neuro): normal cognition Extrem General: Yes normal to inspection, Yes full ROM and Yes capillary refill normal Psych Appearance: grossly normal Mental Status: mental status grossly normal Affect: normal affect Attitude: cooperative Thought process: Normal thought process present Thought content: Normal thought content present Insight: Good insight present (Psych) Medications Administered Discontinued Medications Generic Name Dose Route Start Last Admin Trade Name Freq PRN Reason Stop Dose Admin Atenolol 25 mg 11/24/23 19:52 11/24/23 20:09 Atenolol 25 Mg Tablet PO 11/24/23 19:53 25 mg ONCE ONE Administration Protocol Sodium Chloride 1,000 mls @ 999 mls/hr 11/24/23 20:00 11/24/23 20:19 Ns IV 11/24/23 21:00 999 mls/hr .Q1H1M EUGENIO Administration Nitrofurantoin Macrocrystals 100 mg 11/24/23 19:52 11/24/23 20:09 Nitrofurantoin Monohyd/M-Cryst 100 Mg Capsule PO 11/24/23 19:53 100 mg ONCE ONE Administration Oxycodone HCl 20 mg 11/24/23 19:52 11/24/23 20:09 Oxycodone Hcl Immed Release 5 Mg Tablet PO 11/24/23 19:53 20 mg ONCE ONE Administration Medical Decision Making Medical Decision Making [facility] Narrative: Patient is a 73 year old assigned female at with a history of ESBL UTI presenting to the emergency department today after a fall. Patient's physical exam was unremarkable. Patient's blood work is pending. Patient's urine showed an acute infection. Patient's CT lumbar spine, head, cervical spine, and abdomen/pelvis showed no acute process. I explained my physical exam findings as well as all test results to the patient. I answered all questions asked by the patient. I reviewed the patient's previous microbiology report that showed her ESBL was susceptible to Macrobid. Given her kidney function previously was largley OK - I ordered a first time Macrobid dose while she is here. If patient's chemistries result with poor kidney function, she may need admission for IV antibiotics. If patient's kidney function is OK, she may need to be evaluated by PT / CM for safe disposition. Patient signed out to Dr. Villa pending chemistry results @[phone]. [phone] --> patient's chemistry resulted. After discussing the case with Dr. Villa, she thought it was appropriate I get this patient admitted. I spoke to Dr. Lewis who agreed to admission. Differential Diagnosis Differential Diagnoses: The differential diagnosis associated with the presentation includes UTI Fall Admission/Observation Consideration of admission/observation: Escalation of care including admission/observation considered Patient admitted. Consult Healthcare Provider Management of the patient was discussed with: Hospitalist (as noted in the MDM Rationale portion of this note.) Lab Data [facility] Lab Attestation statement: I reviewed the patient's lab results. My interpretation of these results are in the MDM Rationale portion of this note. 11/24/23 20:08 11/24/23 20:40 Labs: Lab Results 11/24/23 11/24/23 11/24/23 Range/Units 19:02 20:08 20:40 RBC 4.52 (4.20-5.50) X10*6/uL Hgb 14.0 (12.0-16.0) g/dl Hct 42.6 (37.0-47.0) % MCV 94.2 (80.0-98.0) fL MCH 31.0 (27.0-33.0) pg MCHC 32.9 (31.0-35.0) g/dl RDW 14.6 (11.0-16.0) % MPV 11.0 (9.4-12.3) fL Immature Gran % (Auto) 0.4 (0.0-0.4) % Neut % (Auto) 70.0 (45-73) % Lymph % (Auto) 18.7 L (20-40) % Hale % (Auto) 9.4 (2-11) % Eos % (Auto) 1.2 (0-4) % Baso % (Auto) 0.3 (0-2) % Lymph # (Auto) 2.0 (1.2-4.9) X10*3/uL Hale # (Auto) 1.0 (0.1-1.2) X10*3/uL Eos # (Auto) 0.1 (0.0-0.4) X10*3/uL Baso # (Auto) 0.0 (0.0-0.2) X10*3/uL Abs Immat Gran (auto) 0.04 H (0.00-0.03) X10*3/uL Absolute Neuts (auto) 7.6 (2.0-8.3) x10*3/uL Absolute Nucleated RBC 0.000 (0.0-0.012) X10*3/uL Nucleated RBC % (auto) 0.0 (0.0-0.2) /100WBC Sodium 141 (135-145) mmol/L Potassium 4.3 (3.3-5.1) mmol/L Chloride 108 (96-108) mmol/L Carbon Dioxide 26 (22-29) mmol/L Anion Gap 11 L (12-20) BUN 18 H (9-16) mg/dL Creatinine 1.05 (0.5-1.4) mg/dL Estim Creat Clear Calc 58.1 Estimated GFR 52 Random Glucose 92 (60-115) mg/dL Calcium 9.0 (8.4-10.2) mg/dL Total Bilirubin 0.2 (0.0-1.0) mg/dL AST 15 (5-31) U/L ALT 10 (0-31) U/L Alkaline Phosphatase 99 (39-117) U/L Total Protein 7.4 (6.5-8.0) g/dL Albumin 3.5 (3.5-5.0) g/dL Urine Color Yellow Urine Appearance Turbid Urine pH 7.5 (5.0-9.0) Ur Specific Argyle 1.010 (1.005-1.025) Urine Protein Trace (Neg-Trace) mg/dL Urine Glucose (UA) Negative (Negative) mg/dL Urine Ketones Negative (Negative) mg/dL Urine Blood Trace H (Negative) Urine Nitrite Positive H (Negative) Ur Leukocyte Esterase Large (3+) H (Negative) Urine RBC 0-2 (0-2) /HPF Urine WBC >50 H (0-5) /HPF Ur Squamous Epith Cells 0-2 (0-2) /HPF Urine Bacteria 4+ (None Seen) Hyaline Casts 0-2 (0-2) /LPF Independent Interpretation I performed an independent interpretation of an: CT Scan Interpretation: My interpretation is in agreement with the radiologist's impression of these imaging studies. EXAMINATION: CT ABDOMEN AND PELVIS WITHOUT CONTRAST CT LUMBAR SPINE WITHOUT CONTRAST ( CLINICAL INFORMATION: low back pain, trauma. COMPARISON: No pertinent prior studies are available for comparison. TECHNIQUE: Multidetector volumetric imaging was performed from the thoracic inlet through the pubic symphysis as well as through the lumbar spine, following the administration of: Oral contrast: No Intravenous contrast: None Sagittal and coronal reformatted images were obtained on the technologist workstation. Total exam dose-length product: 982.31 mGy-cm (abdomen and pelvic CT), 843.74 mGy-cm (CT lumbar spine). FINDINGS: ABDOMEN/PELVIS: LUNG BASES: The visualized lung bases are unremarkable. No pleural or pericardial effusion. LIVER : The liver is normal in size, shape, and attenuation. No focal hepatic lesion or biliary ductal dilatation is present. GALLBLADDER, AND BILIARY TREE The gallbladder is unremarkable with no evidence of radiopaque gallstones, gallbladder wall thickening, or obvious pericholecystic inflammatory changes. PANCREAS: Normal; no mass or surrounding fluid. SPLEEN: Normal size. No focal lesion. Small splenule is noted in the left upper abdominal quadrant. ADRENAL GLANDS: No focal right adrenal nodule. A 1.8 cm left adrenal nodule representing adrenal adenoma by CT Hounsfield criteria is a stable finding since previous CT scan of 11/14/2020 and no further imaging follow-up of this finding is warranted. KIDNEYS AND URETERS: There is progressive moderate to severe atrophy of the left kidney. An exophytic hypodense lesion from the left mid kidney measures 2.5 cm and represents a cyst by CT Hounsfield criteria; no further imaging follow-up of this finding is warranted. Partially exophytic right renal upper pole hypodense lesions measuring up to 2 cm represent cysts by CT Hounsfield criteria further imaging follow-up of this cyst is warranted. There are 3 partially exophytic hyperdense lesions from the lower pole of the right kidney with the largest one measuring 1.8 cm; these lesions have mildly increased in size since the previous CT scan of 11/14/2020 (the largest one measured 1.4 cm). The hyperdense right renal lesions likely represent hyperdense cysts and no further imaging follow-up is warranted, unless clinically warranted. URINARY BLADDER: No focal mass or wall thickening seen. No bladder calculi. Trace air focus noted in the urinary bladder is nonspecific; similar finding was noted on the previous CT scan of 08/02/2023. Recommend correlation with recent instrumentation. Finding can be seen in the setting of cystitis. GASTROINTESTINAL TRACT: The stomach is mildly distended. No abnormal small bowel dilatation. The colon is normal in caliber. No evidence of colonic wall thickening or pericolonic fat stranding. An appendix is normal. Moderate stool burden in the colon. VASCULAR STRUCTURES: No evidence of pathologically enlarged lymph nodes. Moderate calcific atherosclerosis of the aortoiliac vessels without focal aneurysmal dilatation. Abdominal aorta is mildly dilated measuring 3 cm in maximum diameter. LYMPH NODES: No lymphadenopathy. PELVIC VISCERA: Unremarkable CT appearance of the uterus and adnexa/ovaries. Small volume air is noted in the vaginal cuff, likely external in origin. FREE FLUID: None. ABDOMINAL WALL: No significant hernia is appreciated. LUMBAR SPINE: There is diffuse osteopenia. The vertebral body heights are maintained. There is mild grade 1 anterolisthesis of L4 over L5. Facet arthropathy is noted at multiple levels bilaterally. Intervertebral disc spaces are grossly preserved. Vacuum disc phenomena is noted at multiple levels. Posterior elements are intact and in normal alignment. Chronic L1 and L2 right transverse process fractures are again noted. OTHER OSSEOUS STRUCTURES: Chronic fracture deformity of posterior segment of the right 10th rib is noted. No evidence of acute fracture in the pelvis and bilateral hips. CT/CT lumbar spine wo IV con IMPRESSION: No acute traumatic injury in the abdomen and pelvis. No evidence of acute fracture or traumatic subluxation in the lumbar spine. Nonspecific tiny air focus in the urinary bladder. Other chronic findings as described above. Electronically signed by: Dieter Fitzpatrick MD 11/24/2023 08:47 PM EDT RP Dictated By: Dieter Fitzpatrick MD Signed By: Electronically signed by Dieter Fitzpatrick MD 11/24/232046 EXAM: CT HEAD WITHOUT CONTRAST CT CERVICAL SPINE INDICATION: fall, pain TECHNIQUE: A noncontrast CT scan was performed from the skull base to the vertex. A noncontrast CT scan of the cervical spine was performed from the base of the skull through T1 at 2.5 mm and 0.625 mm collimation. Coronal and sagittal reformats were obtained at the acquisition workstation. This CT examination was performed using dose optimization techniques as appropriate, variously including the following: * Automated exposure control * Adjustment of mA and/or kV according to patient size (this includes techniques or standardized protocols for targeted exams where dose is matched to indication/reason for exam; i.e. extremities or head) * Use of iterative reconstruction technique COMPARISON: CT head October 13, 2023 FINDINGS: Head: There is no evidence of acute intracranial hemorrhage or edematous territorial infarction. No abnormal mass effect or midline shift is seen. Fletcher to white matter differentiation is well preserved. No extra-axial fluid collections are identified. Commensurate prominence of the ventricles and sulci is compatible with generalized parenchymal volume loss. There is patchy periventricular and subcortical white matter hypoattenuation, most likely representing microangiopathic disease . Bilateral lens extraction. No acute calvarial fracture.. Ethmoid sinus mucosal thickening. Mastoid air cells are well-aerated. Cervical Spine: The atlantooccipital and atlantoaxial articulations remain well aligned. Straightening of the normal cervical lordosis. Mild levoconvex curvature. Mild anterolisthesis of C3 on C4, C4 on C5. Atlantodens degeneration. No acute fractures identified. Multilevel disc degenerative changes. More prominent findings of severe disc degeneration at C5-6, C6-7. Multilevel facet degeneration.. There is a 1 cm sclerotic focus in C4 vertebral body, indeterminate. No prevertebral soft tissue swelling. No suspicious findings. Mild biapical scarring. CT/CT cervical spine wo IV con IMPRESSION: 1. No CT evidence of acute intracranial hemorrhage or edematous territorial infarction. 2. No CT evidence of acute cervical spine fracture. 3. Cervical spondylosis. Severe C5-6, C6-7 disc degeneration. 4. 1 cm sclerotic focus in the C4 vertebral body, indeterminate. No priors available for comparison. Correlate with patient's clinical history. Consider further evaluation with bone scan, as clinically indicated. Electronically signed by: Ganesh Espinoza MD 11/24/2023 05:35 PM EDT Dictated By: Ganesh Espinoza MD Signed By: Electronically signed by Ganesh Espinoza MD 11/24/23 9110 Radiology Impression Discussion of test interpretation with radiology: I have reviewed the radiologist's reading. Independent Historian Clinical information obtained from an independent historian. History obtained from or confirmed by: EMS (EMS provided additional history and confirmed the history provided by the patient.) Discharge Plan Discharge Clinical Impression: Acute UTI, Fall, Urinary tract infection due to extended-spectrum beta lactamase (ESBL) producing Escherichia coli Patient Disposition: Admitted As Inpatient Prescriptions: No Action omeprazole 40 mg capsule,delayed release(DR/EC) 40 mg PO DAILY@0630 methotrexate sodium 2.5 mg tablet 10 tab PO MO prednisone 1 mg tablet 4 tab PO DAILY levothyroxine 50 mcg tablet 50 mcg PO DAILY@0630 ergocalciferol (vitamin D2) 1,250 mcg (50,000 unit) capsule 1,250 mcg PO TH albuterol sulfate 90 mcg/actuation HFA aerosol inhaler 2 puff PO Q6H PRN (Reason: wheezing) bupropion HCl 300 mg tablet extended release 24 hr 300 mg PO DAILY duloxetine 60 mg capsule,delayed release(DR/EC) 60 mg PO BID oxycodone 20 mg tablet 20 mg PO Q4H ondansetron 4 mg tablet,disintegrating 4 mg PO Q8H PRN (Reason: nausea and vomiting) Qty: 10 0RF folic acid 1 mg tablet 1 mg PO DAILY atenolol 25 mg Tablet 25 mg PO DAILY Qty: 30 0RF Protocol: Hold for SBP/HR < HOLD for SBP < : 90 HOLD for HR < : 60 doxazosin 2 mg Tablet 2 mg PO BEDTIME Qty: 30 0RF Protocol: Hold for SBP< HOLD for SBP < : 90 furosemide 20 mg tablet 20 mg PO DAILY Qty: 30 0RF ertapenem 1 gram recon soln 1 g IV DAILY Qty: 5 0RF fluticasone propionate [Flonase Allergy Relief] 50 mcg/actuation spray,suspension 1 spray intranasal BID Qty: 16 0RF Rx Instructions: administer into each nostril pregabalin 200 mg capsule 200 mg PO BID Incruse Ellipta 62.5 mcg/actuation blister with device 1 inh inhalation DAILY PRN (Reason: Shortness Of Breath) losartan 50 mg tablet 50 mg PO DAILY prednisone 5 mg tablet 5 - 10 mg PO DAILY PRN (Reason: arthritis flare) Print Language: Khmer
--- NOTE | 2023-11-24 16:58 | MHC.EDTECH ---
Pt changed over by this Tech and helped onto a bedpan. Urine specimen collected and awaiting orders to send urine for processing. Pt changed into a hospital gown and clean linen and fesh chucks puit on bed.
[2023-11-24 19:09] LABS: Appearance Urine Turbid; Color Urine Yellow; Glucose Urine UA Negative (Negative); Leukocyte Esterase Urine Large (3+) (Negative); Nitrite Urine Positive (Negative); PH 7.5 (5.0-9.0); UMIC TRIGGER UACC YES; Urine Blood Trace (Negative); Urine Ketones Negative (Negative); Urine Protein Trace mg/dL (Neg-Trace)
[2023-11-24 19:14] LABS: Bacteria Urine 4+ (None Seen); Hyaline Casts Urine 0-2 /LPF (0-2); RBC Urine 0-2 /HPF (0-2); Squamous Epithelial Cell Urine 0-2 /HPF (0-2); UACC Culture Trigger YES; WBC Urine >50 /HPF (0-5)
[2023-11-24] MEDS: oxyCODONE HCl Immed Release 5 MG TABLET 20 MG PO (20:09)
[2023-11-24] MEDS: atenoloL 25 MG TABLET PO (20:09)
[2023-11-24] MEDS: Nitrofurantoin Monohyd/M-Cryst 100 MG CAPSULE PO (20:09)
[2023-11-24] MEDS: 0.9 % Sodium Chloride 1,000 ML 999 ML IV (20:19)
[2023-11-24 20:28] LABS: Basophils Percent Auto 0.3 % (0-2); Eosinophils Absolute Auto 0.1 X10*3/uL (0.0-0.4); Eosinophils Percent Auto 1.2 % (0-4); Hematocrit 42.6 % (37.0-47.0); Imm Gran Abs Auto 0.04 X10*3/uL (0.00-0.03); Imm Gran Pct Auto 0.4 % (0.0-0.4); Lymphocytes Percent Auto 18.7 % (20-40); MANUAL DIFF FLAG SCAN; Mean Corpuscular HGB Conc 32.9 g/dl (31.0-35.0); Mean Corpuscular Volume 94.2 fL (80.0-98.0); Monocytes Percent Auto 9.4 % (2-11); Neutrophils Absolute Auto 7.6 x10*3/uL (2.0-8.3); PLT CLUMP 1; Red Blood Count 4.52 X10*6/uL (4.20-5.50); Red Cell Distribution Width 14.6 % (11.0-16.0); SCAN SMEAR FLAG 1
--- NOTE | 2023-11-24 20:48 | PC.NURSE ---
pt reported generalized pain and usually takes oxycodone 20mg q4h d/t arthritis. PA made aware. also made aware urine sent and ?need labs. orders in pt medicated per mar. labs drawn. iv attempt twice unable to. charger operator helper obtained iv R. AC and ivf infusing per mar. purewick in place d/t episodes of incontinence. pt is axox3. pt stated if medically cleared for d/c requesting CM as pt states she has home caregivers only 3 hours per day which she doesnt feel is enough. PA aware.
[2023-11-24 21:09] LABS: Alanine Aminotransferase 10 U/L (0-31); Albumin Level 3.5 g/dL (3.5-5.0); Alkaline Phosphatase 99 U/L (39-117); Anion Gap 11 (12-20); Aspartate Amino Transferase 15 U/L (5-31); Bilirubin Total 0.2 mg/dL (0.0-1.0); Blood Urea Nitrogen 18 mg/dL (9-16); Carbon Dioxide 26 mmol/L (22-29); Chloride 108 mmol/L (96-108); Creatinine Clr Calc Pharmacy 58.1; Estimated Glomerular Filt Rate 52; Glucose Random 92 mg/dL (60-115); Potassium 4.3 mmol/L (3.3-5.1); Sodium 141 mmol/L (135-145); Total Protein 7.4 g/dL (6.5-8.0)
[2023-11-24 21:17] LABS: Platelet Count 180 X10*3/uL (160-400); SLIDE REVIEW VERIFIED; White Blood Count 10.9 X10*3/uL (4.8-10.8)
[2023-11-24] MEDS: Enoxaparin Sodium 40 MG/0.4 ML SYRINGE SUBCUT (21:38)
[2023-11-24] MEDS: hydrALAZINE HCl 20 MG/ML VIAL 10 MG IVPUSH (21:38)
--- NOTE | 2023-11-24 21:54 | PM.IMHP ---
History of Present Illness Date of Service: 11/24/23 Attending physician on admission: Eber Lewis Chief Complaint: Weakness, fall at home Pt is a 73-year-old female with a PMH significant for HTN, COPD, rheumatoid arthritis, hypothyroidism, GERD, fibromyalgia, ESBL UTI, and mood disorder?who presents to the ED after fall at home. Patient was at home preparing to use her bathroom when she went to pull down her pants and had her ?legs go out . Slid to the floor due to ?weakness? in her legs and found that she could not stand. Patient lives alone but has a called by N in her bathroom which she use to get assistance. Denies head strike or loss of consciousness. No lightheadedness or dizziness. Denies fever, chills, nausea, vomiting, abdominal pain. No diarrhea. Denies chest pain/pressure, palpitations. No shortness a breath or difficulty breathing. Chronic cough at baseline. Denies polyuria or dysuria. Patient is primarily wheelchair-bound and mostly nonambulatory due to osteoarthritis and right fractured knee not amenable to surgery. However, patient states she is able to normally stand up and take 1-2 steps on her own. Also has help from interior assemblies installer who come daily for 2-3 hours to help out with ADLs. Patient reports she was discharged from PT yesterday and will likely be discharged from OT during her next session. In the ED pt with low-grade fever up to 99.2 and hypertensive up to 197/106. Labs were grossly unremarkable and baseline for patient. No significant leukocytosis. Stable H&H. No electrolyte abnormalities. Renal and hepatic function baseline. UA positive for UTI. CT of head negative for acute intracranial hemorrhage or edematous territorial infarction. CT of cervical spine negative for acute fracture, but did show cervical spondylolysis, disc degeneration, and 1 cm sclerotic focus and C4 vertebral body of indeterminate significance. CT of abdomen and pelvis found no acute traumatic injury in abdomen or pelvis. CT of lumbar spine found no evidence of acute fracture or traumatic subluxation. Pt was treated with oxycodone, nitrofurantoin, atenolol, and IVF. Pt will be admitted to the hospital for treatment and further evaluation of generalized weakness in the setting of acute UTI concerning for ESBL. Review of Systems Review of Systems: Weakness Fall at home Denies headstrike or LOC No chest pain/pressure or palpitations Denies polyuria or dysuria No SOB or difficulty breathing Denies fever, chills, N/V/D, abd pain [facility] Medical History History of ESBL E. coli infection Osteomyelitis COPD (chronic obstructive pulmonary disease) Rheumatoid lung Hypothyroidism Congestive heart failure Fibromyalgia HTN (hypertension) Depression Rheumatoid arthritis Family History Father No problems noted. Other Heart disease Surgical History Hx of prior ablation treatment Knee joint replacement status Social History Household Members: None Household Members Other:: 0 Housing: Apartment Do you presently have visiting nurse or other home services: Yes Unable to assess alcohol history related to: Unknown Alcohol intake: never Patient Tobacco Use Status: Former Tobacco user Smoked in Last 30 Days: No Use of substances other than those prescribed or required for medical reasons: No Advance Directives: No Advance Directives Information Provided: No Do you have a plan to hurt others: No Plan service: No Meds Allergies Allergy/AdvReac Type Severity Reaction Status Date / Time lisinopril [LISINOPRIL] Allergy Severe ANAPHYLAXIS Verified 11/24/23 14:57 Sulfa (Sulfonamide Allergy Intermediate RASH Verified 11/24/23 14:57 Antibiotics) [SULFA (SULFONAMIDE ANTIBIOTICS)] tramadol [TRAMADOL] Allergy Intermediate RASH Verified 11/24/23 14:57 Vzeeruf-DQI-ImK Reductase Allergy Rash Verified 11/24/23 14:57 Inhibitor [Otutcyv-Gfw-Kfi Reductase Inhibitor] hydrochlorothiazide [HCTZ] AdvReac Unknown ABNORMAL Verified 11/24/23 14:57 LABS? Active Medications: Current Medications Acetaminophen (Acetaminophen 325 Mg Tablet) 650 mg PO Q6H PRN PRN Reason: Pain, Mild (Pain Scale 1-3), fever or headache Calcium Carbonate (Calcium Carbonate 750 Mg Tab.Chew) 750 mg PO Q4H PRN PRN Reason: Heartburn Enoxaparin Sodium (Enoxaparin Sodium 40 Mg/0.4 Ml Syringe) 40 mg SUBCUT Q24H EUGENIO Last Admin: 11/24/23 21:38 Dose: 40 mg Meropenem 1 gm/ Sodium (Chloride) 100 mls @ 200 mls/hr IV Q8H [facility] Last Admin: 11/24/23 21:42 Dose: 200 mls/hr Magnesium Hydroxide (Milk Of Magnesia 30 Ml Oral.Susp) 30 ml PO DAILY PRN PRN Reason: Constipation Melatonin (Melatonin 3 Mg Tablet) 6 mg PO BEDTIME PRN PRN Reason: Insomnia Ondansetron HCl (Ondansetron Hcl 4 Mg/2 Ml Vial) 4 mg IVPUSH Q8H PRN PRN Reason: Nausea and Vomiting Sodium Chloride (0.9 % Sodium Chloride Flush 3 Ml Syringe) 3 ml IVFLUSH QSHIFT [facility] Home Medications ?Medication ?Instructions ?Recorded ?Confirmed ?Last Taken ?Type albuterol sulfate 90 mcg/actuation 2 puff PO Q6H PRN wheezing 08/23/21 11/24/23 11/24/23 12:00 History aerosol inhaler bupropion HCl 300 mg 24 hr tablet, 300 mg PO DAILY 08/23/21 11/24/23 11/24/23 12:00 History extended release duloxetine 60 mg capsule,delayed 60 mg PO BID 08/23/21 10/13/23 11/24/23 12:00 History release ergocalciferol (vitamin D2) 1,250 1,250 mcg PO TH 08/23/21 11/24/23 11/24/23 12:00 History mcg (50,000 unit) capsule levothyroxine 50 mcg tablet 50 mcg PO DAILY@62908/23/21 10/13/23 11/24/23 12:00 History methotrexate sodium 2.5 mg tablet 10 tab PO MO 08/23/21 11/24/23 11/24/23 12:00 History omeprazole 40 mg capsule,delayed 40 mg PO DAILY@62908/23/21 11/24/23 11/24/23 12:00 History release oxycodone 20 mg tablet 20 mg PO Q4H Pain 08/23/21 11/24/23 11/24/23 12:00 History prednisone 1 mg tablet 4 tab PO DAILY 08/23/21 11/24/23 11/24/23 12:00 History prednisone 5 mg tablet 5 - 10 mg PO DAILY PRN arthritis 02/16/22 11/24/23 11/24/23 12:00 History flare pregabalin 200 mg capsule 200 mg PO BID 01/07/23 11/24/23 11/24/23 12:00 History umeclidinium 62.5 mcg/actuation 1 inh inhalation DAILY PRN 01/07/23 11/24/23 11/24/23 12:00 History blister powder for inhalation Shortness Of Breath (Incruse Ellipta) folic acid 1 mg tablet 1 mg PO DAILY 10/13/23 11/24/23 11/24/23 12:00 History Physical Exam Vital Signs and Narrative: Vital Signs: Last Vital Signs Temp 98.8 F 11/24/23 18:57 Pulse 78 11/24/23 18:57 Resp 18 11/24/23 18:57 BP 189/108 H 11/24/23 21:38 Pulse Ox 98 11/24/23 18:57 O2 Del Method Room Air 11/24/23 18:57 BMI result Body Mass Index 32.8 Constitutional: Alert, in no acute distress. Mental Status: Oriented to person, place, time, and situation. Eyes: Pupils are equal, round, and reactive to light. Ear, Nose, and Throat: Oropharynx clear, mucous membranes moist. Ears and nose without deformities. Trachea midline. Respiratory: Mild wheezing, diminished bilaterally. Cardiovascular: S1, S2 regular. No murmurs, rubs, or gallops. Gastrointestinal: Abdomen soft, non-tender, non-distended. Normal bowel sounds. Neurologic: Cranial nerves II-XII are grossly intact bilaterally. No focal neurological deficits. Moves all extremities spontaneously though with symmetric weakness of lower extremities. Skin: Warm, dry. Extremities: 2+ bilateral pitting edema. Psychiatric: Normal mood and affect. Results Labs 11/24/23 20:08 11/24/23 20:40 Labs: Laboratory Results - last 24 hr 11/24/23 11/24/23 11/24/23 19:02 20:08 20:40 MCV 94.2 MCH 31.0 MCHC 32.9 RDW 14.6 Plt Count 180 MPV 11.0 Immature Gran % (Auto) 0.4 Neut % (Auto) 70.0 Lymph % (Auto) 18.7 L Haakon % (Auto) 9.4 Eos % (Auto) 1.2 Baso % (Auto) 0.3 Lymph # (Auto) 2.0 Haakon # (Auto) 1.0 Eos # (Auto) 0.1 Baso # (Auto) 0.0 Abs Immat Gran (auto) 0.04 H Absolute Neuts (auto) 7.6 Absolute Nucleated RBC 0.000 Nucleated RBC % (auto) 0.0 Smear Tech's Comments VERIFIED Anion Gap 11 L Estim Creat Clear Calc 58.1 Estimated GFR 52 Random Glucose 92 Calcium 9.0 Total Bilirubin 0.2 AST 15 ALT 10 Alkaline Phosphatase 99 Total Protein 7.4 Albumin 3.5 Urine Color Yellow Urine Appearance Turbid Urine pH 7.5 Ur Specific [place] 1.010 Urine Protein Trace Urine Glucose (UA) Negative Urine Ketones Negative Urine Blood Trace H Urine Nitrite Positive H Ur Leukocyte Esterase Large (3+) H Urine RBC 0-2 Urine WBC >50 H Ur Squamous Epith Cells 0-2 Urine Bacteria 4+ Hyaline Casts 0-2 Imaging Radiologist's Impressions: Impressions Abdomen/Pelvis CT 11/24/23 15:08 IMPRESSION: No acute traumatic injury in the abdomen and pelvis. No evidence of acute fracture or traumatic subluxation in the lumbar spine. Nonspecific tiny air focus in the urinary bladder. Other chronic findings as described above. Electronically signed by: Dieter Fitzpatrick MD 11/24/2023 08:47 PM EDT RP Cervical Spine CT 11/24/23 15:08 IMPRESSION: 1. No CT evidence of acute intracranial hemorrhage or edematous territorial infarction. 2. No CT evidence of acute cervical spine fracture. 3. Cervical spondylosis. Severe C5-6, C6-7 disc degeneration. 4. 1 cm sclerotic focus in the C4 vertebral body, indeterminate. No priors available for comparison. Correlate with patient's clinical history. Consider further evaluation with bone scan, as clinically indicated. Electronically signed by: Ganesh Espinoza MD 11/24/2023 05:35 PM EDT RP Head CT 11/24/23 15:08 IMPRESSION: 1. No CT evidence of acute intracranial hemorrhage or edematous territorial infarction. 2. No CT evidence of acute cervical spine fracture. 3. Cervical spondylosis. Severe C5-6, C6-7 disc degeneration. 4. 1 cm sclerotic focus in the C4 vertebral body, indeterminate. No priors available for comparison. Correlate with patient's clinical history. Consider further evaluation with bone scan, as clinically indicated. Electronically signed by: Ganesh Espinoza MD 11/24/2023 05:35 PM EDT RP Lumbar Spine CT 11/24/23 15:08 IMPRESSION: No acute traumatic injury in the abdomen and pelvis. No evidence of acute fracture or traumatic subluxation in the lumbar spine. Nonspecific tiny air focus in the urinary bladder. Other chronic findings as described above. Electronically signed by: Dieter Fitzpatrick MD 11/24/2023 08:47 PM EDT RP Assessment and Plan (1) Acute UTI: Status: Acute Plan Pt is a 73-year-old female with a PMH significant for HTN, COPD, rheumatoid arthritis, hypothyroidism, GERD, fibromyalgia, ESBL UTI, and mood disorder?who presents to the ED after fall at home. Pt will be admitted to the hospital for treatment and further evaluation of generalized weakness in the setting of acute UTI concerning for ESBL. Acute UTI Pt with hx of ESBL E coli UTI, most recently treated on 10/08/2023 Patient does not meet sepsis criteria: No fever, tachypnea, tachycardic, or leukocytosis; lactic acid WNL at 0.9 Will treat with meropenem, started 11/24/2023 ID consult if urine culture is ESBL positive Follow cultures Generalized weakness with fall at home Imaging negative for acute injury Recently had last PT session at home Will need to get PT/OT re-evaluation Hypertensive urgency Pt presented with poorly controlled HTN as high as 197/106 Patient received atenolol and hydralazine in the ED Continue atenolol, losartan, doxazosin Monitor BP COPD Mild wheezing but not in acute exacerbation Continue home inhalers Chronic lower leg edema Continue Lasix Chronic lower back and leg pain Continue home opioids Rheumatoid arthritis Continue methotrexate, prednisone Hypothyroidism Continue levothyroxine Mood disorder Continue bupropion, duloxetine Full Code Attending:?Dr. Lewis DVT Prophylaxis: Lovenox Given patient's history of rexent ESBL UTIs, the patient will require at least a 2 night hospitalization for treatment of acute UTI concerning for ESBL that will require empiric IV meropenem while we await urine cultures. Quality Stroke Does the patient have a stroke diagnosis?: No VTE Prior VTE?: No VTE Risk Level:: Medical - moderate - high VTE Device Contraindication: Treatment Not Indicated VTE Drug Contraindication: N/A - Med Ordered
--- NOTE | 2023-11-24 22:14 | PC.NURSE ---
MD aware of bp at this time no further orders.
--- NOTE | 2023-11-24 22:29 | PHA.MEDREC ---
Addendum entered by Hay Clark [facility] 11/25/23 10:54: Med rec was reviewed by [facility]. Addendum entered by Makayla Nation 11/25/23 09:59: Ede reported she last filled levothyroxine and duloxetine in September of last year. Patient has been stating she is on both per last visit in September and this visit. I talked with the patient and she says she has multiple bottles of the duloxetine still since she has been only taking it once daily. She confirmed bupropion dose of 450 mg. [facility] reports she does have another refill on file for the 150 mg. Leaving medications on med rec as patient states she is still on them. Changed duloxetine to once daily. Addendum entered by Peace Strong [facility] 11/24/23 22:49: Reviewed by [facility]; no claim history for Cymbalta or levothyroxine even though pt states she takes both. Will have AM med rec team follow up 11/24 Original Note: Pharmacy Consult ? Medication Reconciliation Pharmacy has completed the medication reconciliation. Confirmed medications with patient. Patient was a little confused in the beginning about some medications but she states she was just seen here a few weeks ago, I found discharge plan from 10/12 that was able to confirm her claims. The patient states she has not been taking the Losar[place] 50mg tab, looking at the Discharge plan the DrAida put the medication on hold until 10/31, repeat BMP before starting again and she states she has not started it up again. Patient also states she is taking Bupropion 300mg and a Bupropion 150mg together for a total of 450mg daily but looking in claims she has not filled the 150mg since May 17, 2023 for 90 days. The patient did confirm her Methotrexate 2.5mg, she states she takes 10 tablets every Monday and she last took them Sunday 11/19. Patient confirmed her Oxycodone 20mg tab Q4H as needed for pain and she stated she last took that this morning. She took her medications up until 1-2 this afternoon.
[2023-11-25] VITALS (8 sets, daily range): BP systolic 123–160; BP diastolic 63–85; PULSE 66–71; RESP 14–18; TEMP 36.4–37.1; O2SAT 95–97
[2023-11-25] MEDS: oxyCODONE HCl Immed Release 5 MG TABLET 20 MG PO ×6 (00:50→21:17)
[2023-11-25] MEDS: Doxazosin Mesylate 2 MG TABLET PO ×2 (00:51→21:17)
[2023-11-25] MEDS: Pregabalin 200 MG CAPSULE PO ×3 (00:53→21:30)
[2023-11-25] MEDS: 0.9 % Sodium Chloride Flush 3 ML SYRINGE IVFLUSH ×4 (00:55→21:21)
[2023-11-25 04:59] LABS: Basophils Percent Auto 0.2 % (0-2); Eosinophils Absolute Auto 0.2 X10*3/uL (0.0-0.4); Eosinophils Percent Auto 1.9 % (0-4); Hematocrit 38.3 % (37.0-47.0); Hemoglobin 12.6 g/dl (12.0-16.0); Imm Gran Abs Auto 0.04 X10*3/uL (0.00-0.03); Imm Gran Pct Auto 0.4 % (0.0-0.4); Lymphocytes Absolute Auto 1.6 X10*3/uL (1.2-4.9); Lymphocytes Percent Auto 16.2 % (20-40); MANUAL DIFF FLAG NO; Mean Corpuscular HGB Conc 32.9 g/dl (31.0-35.0); Mean Corpuscular Hemoglobin 30.9 pg (27.0-33.0); Mean Corpuscular Volume 93.9 fL (80.0-98.0); Monocytes Absolute Auto 0.9 X10*3/uL (0.1-1.2); Monocytes Percent Auto 9.5 % (2-11); Neutrophils Absolute Auto 6.9 x10*3/uL (2.0-8.3); Neutrophils Percent Auto 71.8 % (45-73); Platelet Count 157 X10*3/uL (160-400); Red Blood Count 4.08 X10*6/uL (4.20-5.50); Red Cell Distribution Width 14.6 % (11.0-16.0); White Blood Count 9.6 X10*3/uL (4.8-10.8)
[2023-11-25 05:19] LABS: Anion Gap 12 (12-20); Blood Urea Nitrogen 18 mg/dL (9-16); Calcium 8.9 mg/dL (8.4-10.2); Carbon Dioxide 24 mmol/L (22-29); Chloride 111 mmol/L (96-108); Creatinine Clr Calc Pharmacy 56.4; Estimated Glomerular Filt Rate 50; Glucose Random 87 mg/dL (60-115); Sodium 143 mmol/L (135-145)
[2023-11-25] MEDS: Omeprazole 40 MG CAPSULE.DR PO (05:44)
--- NOTE | 2023-11-25 07:41 | HO.PM.IMPN ---
Subjective Subjective Date of Service: 11/25/23 Interval History: f/u on uti, fall from knees giving out Physical Exam Vital Signs: Vital Signs: Last Vital Signs Temp 98.6 F 11/25/23 06:01 Pulse 71 11/25/23 06:01 Resp 18 11/25/23 06:01 BP 123/79 11/25/23 06:01 Pulse Ox 97 11/25/23 06:01 O2 Del Method Room Air 11/25/23 06:01 BMI result Body Mass Index 32.8 General: AO X 3, no acute distress Resp: CTA bilateral CVS: S1,S2,RRR, no pitting edema of both legs GI: +BS, NT, no distention Skin: No rash Neuro: motor grossly intact Psych: appropriate affect Objective Data Active Medications Acetaminophen (Acetaminophen 325 Mg Tablet) 650 mg PO Q6H PRN PRN Reason: Pain, Mild (Pain Scale 1-3), fever or headache Albuterol Sulfate (Albuterol Sulfate 90 Mcg 8 Gm Inhaler) 2 puff INHALE Q6H PRN PRN Reason: wheezing Atenolol (Atenolol 25 Mg Tablet) 25 mg PO DAILY [facility]; Protocol Bupropion HCl (Bupropion Hcl Xl 300 Mg Tab.Er.24h) 300 mg PO DAILY [facility] Calcium Carbonate (Calcium Carbonate 750 Mg Tab.Chew) 750 mg PO Q4H PRN PRN Reason: Heartburn Doxazosin Mesylate (Doxazosin Mesylate 2 Mg Tablet) 2 mg PO BEDTIME [facility]; Protocol Last Admin: 11/25/23 00:51 Dose: 2 mg Documented By: MARIO Enoxaparin Sodium (Enoxaparin Sodium 40 Mg/0.4 Ml Syringe) 40 mg SUBCUT Q24H [facility] Last Admin: 11/24/23 21:38 Dose: 40 mg Documented By: PRATEEK Ergocalciferol (Ergocalciferol (Vitamin D2) 1,250 Mcg Capsule) 1,250 mcg PO TH [facility] Folic Acid (Folic Acid 1 Mg Tablet) 1 mg PO DAILY [facility] Furosemide (Furosemide 20 Mg Tablet) 20 mg PO DAILY [facility]; Protocol Meropenem 1 gm/ Sodium (Chloride) 100 mls @ 200 mls/hr IV Q8H [facility] Last Infusion: 11/25/23 06:14 Dose: Infused Documented By: MARIO Magnesium Hydroxide (Milk Of Magnesia 30 Ml Oral.Susp) 30 ml PO DAILY PRN PRN Reason: Constipation Melatonin (Melatonin 3 Mg Tablet) 6 mg PO BEDTIME PRN PRN Reason: Insomnia Methotrexate (Methotrexate Sodium 2.5 Mg Tablet) 25 mg PO MO [facility] Omeprazole (Omeprazole 40 Mg Capsule.Dr) 40 mg PO DAILY@0630 [facility] Last Admin: 11/25/23 05:44 Dose: 40 mg Documented By: MARIO Ondansetron HCl (Ondansetron Hcl 4 Mg/2 Ml Vial) 4 mg IVPUSH Q8H PRN PRN Reason: Nausea and Vomiting Oxycodone HCl (Oxycodone Hcl Immed Release 5 Mg Tablet) 20 mg PO Q4H [facility] Last Admin: 11/25/23 05:43 Dose: 20 mg Documented By: MARIO Prednisone (Prednisone 1 Mg Tablet) 4 mg PO DAILY [facility] Pregabalin (Pregabalin 200 Mg Capsule) 200 mg PO BID [facility] Last Admin: 11/25/23 00:53 Dose: 200 mg Documented By: MARIO Sodium Chloride (0.9 % Sodium Chloride Flush 3 Ml Syringe) 3 ml IVFLUSH QSHIFT [facility] Last Admin: 11/25/23 00:55 Dose: 3 ml Documented By: MARIO Tiotropium Maury (Tiotropium Maury 2.5 Mcg 1 Puff/2.5 Mcg Mist.Inhal) 1 puff INHALE DAILY [facility] Labs 11/25/23 04:52 11/25/23 04:52 Labs: Laboratory Results - last 24 hr 11/24/23 11/24/23 11/24/23 19:02 20:08 20:40 MCV 94.2 MCH 31.0 MCHC 32.9 RDW 14.6 Plt Count 180 MPV 11.0 Immature Gran % (Auto) 0.4 Neut % (Auto) 70.0 Lymph % (Auto) 18.7 L [place] % (Auto) 9.4 Eos % (Auto) 1.2 Baso % (Auto) 0.3 Lymph # (Auto) 2.0 [place] # (Auto) 1.0 Eos # (Auto) 0.1 Baso # (Auto) 0.0 Abs Immat Gran (auto) 0.04 H Absolute Neuts (auto) 7.6 Absolute Nucleated RBC 0.000 Nucleated RBC % (auto) 0.0 Smear Tech's Comments VERIFIED Anion Gap 11 L Estim Creat Clear Calc 58.1 Estimated GFR 52 Random Glucose 92 Calcium 9.0 Total Bilirubin 0.2 AST 15 ALT 10 Alkaline Phosphatase 99 Total Protein 7.4 Albumin 3.5 Urine Color Yellow Urine Appearance Turbid Urine pH 7.5 Ur Specific [place] 1.010 Urine Protein Trace Urine Glucose (UA) Negative Urine Ketones Negative Urine Blood Trace H Urine Nitrite Positive H Ur Leukocyte Esterase Large (3+) H Urine RBC 0-2 Urine WBC >50 H Ur Squamous Epith Cells 0-2 Urine Bacteria 4+ Hyaline Casts 0-2 11/25/23 04:52 MCV 93.9 MCH 30.9 MCHC 32.9 RDW 14.6 Plt Count 157 L MPV 10.0 Immature Gran % (Auto) 0.4 Neut % (Auto) 71.8 Lymph % (Auto) 16.2 L [place] % (Auto) 9.5 Eos % (Auto) 1.9 Baso % (Auto) 0.2 Lymph # (Auto) 1.6 [place] # (Auto) 0.9 Eos # (Auto) 0.2 Baso # (Auto) 0.0 Abs Immat Gran (auto) 0.04 H Absolute Neuts (auto) 6.9 Absolute Nucleated RBC 0.000 Nucleated RBC % (auto) 0.0 Smear Tech's Comments Anion Gap 12 Estim Creat Clear Calc 56.4 Estimated GFR 50 Random Glucose 87 Calcium 8.9 Total Bilirubin AST ALT Alkaline Phosphatase Total Protein Albumin Urine Color Urine Appearance Urine pH Ur Specific [place] Urine Protein Urine Glucose (UA) Urine Ketones Urine Blood Urine Nitrite Ur Leukocyte Esterase Urine RBC Urine WBC Ur Squamous Epith Cells Urine Bacteria Hyaline Casts Assessment and Plan (1) Fall: Status: Acute (2) Acute UTI: Status: Acute Plan 73/F w/ HTN, COPD, rheumatoid arthritis (RA), hypothyroidism (HypoT), GERD, fibromyalgia, ESBL UTI, and mood disorder?who presents with fall, weakness and UTI Acute UTI, h/o ESBL E.coli 6 weeks ago, no sepsis -Meropenem, follow culture and sensitivity Generalized weakness with fall at home -no trauma on ct -PT/OT HyTN urgency--resolved -Continue atenolol, losartan, doxazosin COPD--no acute exacerbation -Continue home inhalers Chronic lower leg edema -Continue Lasix Chronic lower back and leg pain -Continue home opioids RA -methotrexate, prednisone HypoT -Continue levothyroxine (LT4) Mood disorder - bupropion, duloxetine Full Code Attending:?Dr. Lewis DVT Prophylaxis: Lovenox need for inpt: IV Abx for resitan UTI Quality Stroke Does the patient have a stroke diagnosis?: No VTE Prior VTE?: No VTE Risk Level:: Medical - moderate - high VTE Device Contraindication: Treatment Not Indicated VTE Drug Contraindication: N/A - Med Ordered
--- NOTE | 2023-11-25 07:49 | MHC.EDTECH ---
patient given breakfast and eating at this time. Patient asked for help finding a cell phone she has with her contacts in it and this phone was not noted on her belonging list. patient stated she could have left it at home.
[2023-11-25] MEDS: Furosemide 20 MG TABLET PO (08:37)
[2023-11-25] MEDS: Folic Acid 1 MG TABLET PO (08:38)
[2023-11-25] MEDS: buPROPion HCl XL 300 MG TAB.ER.24H PO (08:38)
[2023-11-25] MEDS: atenoloL 25 MG TABLET PO (08:39)
--- NOTE | 2023-11-25 09:59 | MHC.CM.PN ---
CM RECEIVED A CALL FROM [facility], PT IS ACTIVE WITH THEM. RETURN REFERRAL PLACED
[2023-11-25] MEDS: predniSONE 1 MG TABLET 4 MG PO (10:02)
[2023-11-25] MEDS: DULoxetine HCl 60 MG CAPSULE.DR PO (13:14)
[2023-11-25] MEDS: buPROPion HCl XL 150 MG TAB.ER.24H PO (13:15)
[2023-11-25] MEDS: Levothyroxine Sodium 50 MCG TABLET PO (13:15)
[2023-11-25] MEDS: Enoxaparin Sodium 40 MG/0.4 ML SYRINGE SUBCUT (21:19)
[2023-11-26] VITALS (7 sets, daily range): BP systolic 153–160; BP diastolic 67–75; PULSE 65–68; RESP 18–20; TEMP 36.1–37.1; O2SAT 95–97
[2023-11-26] MEDS: oxyCODONE HCl Immed Release 5 MG TABLET 20 MG PO ×6 (00:58→20:55)
[2023-11-26] MEDS: Levothyroxine Sodium 50 MCG TABLET PO (05:04)
[2023-11-26] MEDS: Omeprazole 40 MG CAPSULE.DR PO (05:04)
--- NOTE | 2023-11-26 08:55 | HO.PM.IMPN ---
Subjective Subjective Date of Service: 11/26/23 Interval History: f/u on uti, fall from knees giving out has shoulder pain Physical Exam Vital Signs: Vital Signs: Last Vital Signs Temp 98.2 F 11/26/23 08:00 Pulse 66 11/26/23 08:00 Resp 18 11/26/23 08:00 BP 153/75 H 11/26/23 08:00 Pulse Ox 95 11/26/23 08:00 O2 Del Method Nasal Cannula 11/26/23 08:00 O2 Flow Rate 2 11/26/23 08:00 BMI result Body Mass Index 32.8 General: AO X 3, no acute distress Resp: CTA bilateral CVS: S1,S2,RRR, no pitting edema of both legs GI: +BS, NT, no distention Skin: No rash Neuro: motor grossly intact Psych: appropriate affect Objective Data Active Medications Acetaminophen (Acetaminophen 325 Mg Tablet) 650 mg PO Q6H PRN PRN Reason: Pain, Mild (Pain Scale 1-3), fever or headache Albuterol Sulfate (Albuterol Sulfate 90 Mcg 8 Gm Inhaler) 2 puff INHALE Q6H PRN PRN Reason: wheezing Atenolol (Atenolol 25 Mg Tablet) 25 mg PO DAILY [facility]; Protocol Last Admin: 11/25/23 08:39 Dose: 25 mg Documented By: BERLIN Bupropion HCl (Bupropion Hcl Xl 300 Mg Tab.Er.24h) 300 mg PO DAILY [facility] Last Admin: 11/25/23 08:38 Dose: 300 mg Documented By: BERLIN Bupropion HCl (Bupropion Hcl Xl 150 Mg Tab.Er.24h) 150 mg PO DAILY [facility] Last Admin: 11/25/23 13:15 Dose: 150 mg Documented By: DAMEON Calcium Carbonate (Calcium Carbonate 750 Mg Tab.Chew) 750 mg PO Q4H PRN PRN Reason: Heartburn Doxazosin Mesylate (Doxazosin Mesylate 2 Mg Tablet) 2 mg PO BEDTIME [facility]; Protocol Last Admin: 11/25/23 21:17 Dose: 2 mg Documented By: ELLA Duloxetine HCl (Duloxetine Hcl 60 Mg Capsule.Dr) 60 mg PO DAILY [facility] Last Admin: 11/25/23 13:14 Dose: 60 mg Documented By: DAMEON Enoxaparin Sodium (Enoxaparin Sodium 40 Mg/0.4 Ml Syringe) 40 mg SUBCUT Q24H [facility] Last Admin: 11/25/23 21:19 Dose: 40 mg Documented By: ELLA Ergocalciferol (Ergocalciferol (Vitamin D2) 1,250 Mcg Capsule) 1,250 mcg PO TH [facility] Folic Acid (Folic Acid 1 Mg Tablet) 1 mg PO DAILY [facility] Last Admin: 11/25/23 08:38 Dose: 1 mg Documented By: BERLIN Furosemide (Furosemide 20 Mg Tablet) 20 mg PO DAILY [facility]; Protocol Last Admin: 11/25/23 08:37 Dose: 20 mg Documented By: BERLIN Meropenem 1 gm/ Sodium (Chloride) 100 mls @ 200 mls/hr IV Q8H [facility] Last Infusion: 11/26/23 05:49 Dose: Infused Documented By: RIOS Levothyroxine Sodium (Levothyroxine Sodium 50 Mcg Tablet) 50 mcg PO DAILY@0600 [facility] Last Admin: 11/26/23 05:04 Dose: 50 mcg Documented By: ELLA Magnesium Hydroxide (Milk Of Magnesia 30 Ml Oral.Susp) 30 ml PO DAILY PRN PRN Reason: Constipation Melatonin (Melatonin 3 Mg Tablet) 6 mg PO BEDTIME PRN PRN Reason: Insomnia Methotrexate (Methotrexate Sodium 2.5 Mg Tablet) 25 mg PO MO [facility] Omeprazole (Omeprazole 40 Mg Capsule.Dr) 40 mg PO DAILY@0630 [facility] Last Admin: 11/26/23 05:04 Dose: 40 mg Documented By: ELLA Ondansetron HCl (Ondansetron Hcl 4 Mg/2 Ml Vial) 4 mg IVPUSH Q8H PRN PRN Reason: Nausea and Vomiting Oxycodone HCl (Oxycodone Hcl Immed Release 5 Mg Tablet) 20 mg PO Q4H [facility] Last Admin: 11/26/23 05:02 Dose: 20 mg Documented By: ELLA Prednisone (Prednisone 1 Mg Tablet) 4 mg PO DAILY [facility] Last Admin: 11/25/23 10:02 Dose: 4 mg Documented By: DAMEON Pregabalin (Pregabalin 200 Mg Capsule) 200 mg PO BID [facility] Last Admin: 11/25/23 21:30 Dose: 200 mg Documented By: ELLA Sodium Chloride (0.9 % Sodium Chloride Flush 3 Ml Syringe) 3 ml IVFLUSH QSHIFT [facility] Last Admin: 11/25/23 21:21 Dose: 3 ml Documented By: ELLA Tiotropium Freeman (Tiotropium [place] 2.5 Mcg 1 Puff/2.5 Mcg Mist.Inhal) 1 puff INHALE DAILY [facility] Last Admin: 11/26/23 08:10 Dose: Not Given Documented By: LASHAWN Non-Admin Reason: Pt not in room at this time Labs 11/25/23 04:52 11/25/23 04:52 Microbiology Microbiology Results: Microbiology 11/24/23 19:02 Urine Culture - Final Urine clean catch - Clean Catch Midstream Escherichia coli Assessment and Plan (1) Fall: Status: Acute (2) Acute UTI: Status: Acute Plan 73/F w/ HTN, COPD, rheumatoid arthritis (RA), hypothyroidism (HypoT), GERD, fibromyalgia, ESBL UTI, and mood disorder?who presents with fall, weakness and UTI Acute UTI, h/o ESBL E.coli 6 weeks ago, no sepsis..usually get confusion with uti -e. coli similar to past and therefore likely colonization -iv ertapenem, will check with id if able to change to macrobid Generalized weakness with fall at home -no trauma on ct -PT recommends STR HTN urgency--BP nl -Continue atenolol, losartan, doxazosin COPD--no acute exacerbation -Continue home inhalers Chronic lower leg edema -Continue Lasix Chronic lower back and leg pain -Continue home opioids RA -methotrexate, prednisone HypoT -Continue levothyroxine (LT4) Mood disorder - bupropion, duloxetine Full Code Attending:?Dr. Lewis DVT Prophylaxis: Lovenox need for inpt: IV Abx for resitan UTI STR when bed available Quality Stroke Does the patient have a stroke diagnosis?: No VTE Prior VTE?: No VTE Risk Level:: Medical - moderate - high VTE Device Contraindication: Treatment Not Indicated VTE Drug Contraindication: N/A - Med Ordered
[2023-11-26] MEDS: 0.9 % Sodium Chloride Flush 3 ML SYRINGE IVFLUSH ×3 (09:58→20:57)
[2023-11-26] MEDS: predniSONE 1 MG TABLET 4 MG PO (10:00)
[2023-11-26] MEDS: atenoloL 25 MG TABLET PO (10:00)
[2023-11-26] MEDS: DULoxetine HCl 60 MG CAPSULE.DR PO (10:01)
[2023-11-26] MEDS: Folic Acid 1 MG TABLET PO (10:01)
[2023-11-26] MEDS: Furosemide 20 MG TABLET PO (10:01)
[2023-11-26] MEDS: buPROPion HCl XL 300 MG TAB.ER.24H PO (10:01)
[2023-11-26] MEDS: buPROPion HCl XL 150 MG TAB.ER.24H PO (10:01)
[2023-11-26] MEDS: Pregabalin 200 MG CAPSULE PO ×2 (10:02→21:02)
[2023-11-26] MEDS: Doxazosin Mesylate 2 MG TABLET PO (20:56)
[2023-11-26] MEDS: Enoxaparin Sodium 40 MG/0.4 ML SYRINGE SUBCUT (20:57)
[2023-11-27] MEDS: oxyCODONE HCl Immed Release 5 MG TABLET 20 MG PO ×6 (00:58→19:47)
[2023-11-27 03:18] VITALS: BP 142/80; PULSE 65; RESP 20; TEMP 36.6; O2SAT 95
[2023-11-27] MEDS: Omeprazole 40 MG CAPSULE.DR PO (05:08)
[2023-11-27] MEDS: Levothyroxine Sodium 50 MCG TABLET PO (05:08)
[2023-11-27 07:32] VITALS: BP 141/65; PULSE 69; RESP 14; TEMP 36; O2SAT 94
[2023-11-27] MEDS: Pregabalin 200 MG CAPSULE PO ×2 (08:25→19:47)
[2023-11-27] MEDS: buPROPion HCl XL 150 MG TAB.ER.24H PO (08:25)
[2023-11-27] MEDS: predniSONE 1 MG TABLET 4 MG PO (08:25)
[2023-11-27] MEDS: Furosemide 20 MG TABLET PO (08:25)
[2023-11-27] MEDS: Folic Acid 1 MG TABLET PO (08:25)
[2023-11-27] MEDS: buPROPion HCl XL 300 MG TAB.ER.24H PO (08:25)
[2023-11-27] MEDS: DULoxetine HCl 60 MG CAPSULE.DR PO (08:25)
[2023-11-27] MEDS: atenoloL 25 MG TABLET PO (08:25)
[2023-11-27] MEDS: 0.9 % Sodium Chloride Flush 3 ML SYRINGE IVFLUSH ×2 (08:31→16:06)
--- NOTE | 2023-11-27 09:15 | P.PNIM_ITS ---
Subjective Subjective Date of Service: 11/27/23 Interval History: Overall feels better, pain in knee and shoulders are better Physical Exam 2 Vital Signs: Vital Signs: Last Vital Signs Temp 96.8 F 11/27/23 07:32 Pulse 69 11/27/23 07:32 Resp 14 11/27/23 07:32 BP 141/65 H 11/27/23 07:32 Pulse Ox 94 11/27/23 07:32 O2 Del Method Room Air 11/27/23 07:32 O2 Flow Rate 2 11/26/23 19:47 BMI result Body Mass Index 32.8 General: AO X 3, no acute distress Resp: CTA bilateral CVS: S1,S2,RRR, no pitting edema of both legs GI: +BS, NT, no distention Skin: No rash Neuro: motor grossly intact Psych: appropriate affect Objective Data Active Medications Acetaminophen (Acetaminophen 325 Mg Tablet) 650 mg PO Q6H PRN PRN Reason: Pain, Mild (Pain Scale 1-3), fever or headache Albuterol Sulfate (Albuterol Sulfate 90 Mcg 8 Gm Inhaler) 2 puff INHALE Q6H PRN PRN Reason: wheezing Atenolol (Atenolol 25 Mg Tablet) 25 mg PO DAILY [facility]; Protocol Last Admin: 11/27/23 08:25 Dose: 25 mg Documented By: DAMEON Bupropion HCl (Bupropion Hcl Xl 300 Mg Tab.Er.24h) 300 mg PO DAILY [facility] Last Admin: 11/27/23 08:25 Dose: 300 mg Documented By: DAMEON Bupropion HCl (Bupropion Hcl Xl 150 Mg Tab.Er.24h) 150 mg PO DAILY [facility] Last Admin: 11/27/23 08:25 Dose: 150 mg Documented By: DAMEON Calcium Carbonate (Calcium Carbonate 750 Mg Tab.Chew) 750 mg PO Q4H PRN PRN Reason: Heartburn Doxazosin Mesylate (Doxazosin Mesylate 2 Mg Tablet) 2 mg PO BEDTIME [facility]; Protocol Last Admin: 11/26/23 20:56 Dose: 2 mg Documented By: RIOS Duloxetine HCl (Duloxetine Hcl 60 Mg Capsule.Dr) 60 mg PO DAILY [facility] Last Admin: 11/27/23 08:25 Dose: 60 mg Documented By: DAMEON Enoxaparin Sodium (Enoxaparin Sodium 40 Mg/0.4 Ml Syringe) 40 mg SUBCUT Q24H [facility] Last Admin: 11/26/23 20:57 Dose: 40 mg Documented By: RIOS Ergocalciferol (Ergocalciferol (Vitamin D2) 1,250 Mcg Capsule) 1,250 mcg PO TH [facility] Folic Acid (Folic Acid 1 Mg Tablet) 1 mg PO DAILY [facility] Last Admin: 11/27/23 08:25 Dose: 1 mg Documented By: DAMEON Furosemide (Furosemide 20 Mg Tablet) 20 mg PO DAILY [facility]; Protocol Last Admin: 11/27/23 08:25 Dose: 20 mg Documented By: DAMEON Meropenem 1 gm/ Sodium (Chloride) 100 mls @ 200 mls/hr IV Q8H [facility] Last Infusion: 11/27/23 05:46 Dose: Infused Documented By: RIOS Levothyroxine Sodium (Levothyroxine Sodium 50 Mcg Tablet) 50 mcg PO DAILY@0600 [facility] Last Admin: 11/27/23 05:08 Dose: 50 mcg Documented By: RIOS Magnesium Hydroxide (Milk Of Magnesia 30 Ml Oral.Susp) 30 ml PO DAILY PRN PRN Reason: Constipation Melatonin (Melatonin 3 Mg Tablet) 6 mg PO BEDTIME PRN PRN Reason: Insomnia Methotrexate (Methotrexate Sodium 2.5 Mg Tablet) 25 mg PO MO [facility] Omeprazole (Omeprazole 40 Mg Capsule.Dr) 40 mg PO DAILY@0630 [facility] Last Admin: 11/27/23 05:08 Dose: 40 mg Documented By: RIOS Ondansetron HCl (Ondansetron Hcl 4 Mg/2 Ml Vial) 4 mg IVPUSH Q8H PRN PRN Reason: Nausea and Vomiting Oxycodone HCl (Oxycodone Hcl Immed Release 5 Mg Tablet) 20 mg PO Q4H [facility] Last Admin: 11/27/23 08:25 Dose: 20 mg Documented By: DAMEON Prednisone (Prednisone 1 Mg Tablet) 4 mg PO DAILY [facility] Last Admin: 11/27/23 08:25 Dose: 4 mg Documented By: DAMEON Pregabalin (Pregabalin 200 Mg Capsule) 200 mg PO BID [facility] Last Admin: 11/27/23 08:25 Dose: 200 mg Documented By: DAMEON Sodium Chloride (0.9 % Sodium Chloride Flush 3 Ml Syringe) 3 ml IVFLUSH QSHIFT [facility] Last Admin: 11/27/23 08:31 Dose: 3 ml Documented By: DAMEON Tiotropium [place] (Tiotropium [place] 2.5 Mcg 1 Puff/2.5 Mcg Mist.Inhal) 1 puff INHALE DAILY [facility] Last Admin: 11/26/23 08:10 Dose: Not Given Documented By: LASHAWN Non-Admin Reason: Pt not in room at this time Labs 11/25/23 04:52 11/25/23 04:52 Microbiology Microbiology Results: Microbiology 11/24/23 19:02 Urine Culture - Final Urine clean catch - Clean Catch Midstream Escherichia coli Assessment and Plan (1) Fall: Status: Acute (2) Acute UTI: Status: Acute Plan 73/F w/ HTN, COPD, rheumatoid arthritis (RA), hypothyroidism (HypoT), GERD, fibromyalgia, ESBL UTI, and mood disorder?who presents with fall, weakness and UTI Acute UTI, h/o ESBL E.coli 6 weeks ago, no sepsis..usually get confusion with uti -e. coli similar to past and therefore likely colonization -iv ertapenem to macrobid for total of 10d Generalized weakness with fall at home -no trauma on ct -PT recommends STR but she wants to go home with rehab HTN urgency--BP nl -Continue atenolol, losartan, doxazosin COPD--no acute exacerbation -Continue home inhalers Chronic lower leg edema -Continue Lasix Chronic lower back and leg pain -Continue home opioids RA -methotrexate, prednisone Right shoulder pain s/p fall -xray ? rotator cuff injury -will check with ortho HypoT -Continue levothyroxine (LT4) Mood disorder - bupropion, duloxetine Full Code Attending:?Dr. Lewis DVT Prophylaxis: Lovenox need for inpt: IV Abx for resitan UTI STR when bed available Quality Stroke Does the patient have a stroke diagnosis?: No VTE Prior VTE?: No VTE Risk Level:: Medical - moderate - high VTE Device Contraindication: Treatment Not Indicated VTE Drug Contraindication: N/A - Med Ordered
--- NOTE | 2023-11-27 12:44 | MHC.CM.PN ---
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 PT PERSEVERATED ON THIS DESPITE BEING INFORMED MULTIPLE TIMES THAT STR WAS BEING RECOMMENDED CM ATTEMPTED TO REDIRECT PT BACK TO THE SUBJECT AT HAND, HOWEVER SHE CONTINUED TO BE ARGUMENTATIVE PT EVENTUALLY STATED SHE WILL DC HOME. SHE SAYS SHE DOES HAVE VNA AND WILL RESUME BIOLOG[employer] SCI[employer]ES PROFESSOR SERVICES PT HAS INDICATED MORE THAN ONCE, SHE IS NOT WILLING TO GO TO STR NO MATTER WHAT SNF MAY BE OFFERING SHE IS AWARE CM HAS CALLED THE HOME CARE AGENCIES AND HER BIOLOGICAL SCI[employer]ES PROFESSOR SERVICES WILL BE RESUMED TOMORROW Addendum entered by Ina Patterson 11/27/23 12:51: CM CALLED [facility] [phone] AND INFORMED THEM PT WILL DC HOME TODAY AND NEEDS HER SERVICES RESUMED CM WAS INFORMED PTS [employer] SERVICES WOULD RESTART TOMORROW MORNING CM WAS ALSO INFORMED PT GETS MORNING SERVICES DAILY MON-MON AND EVENING SERVICES ON MONDAYS AND FRIDAYS, HOWEVER WOULD NOT HAVE THEM TODAY DUE TO THE HOLIDAY CM ALSO CALLED [facility] [phone] AND INFORMED THEM PT WOULD BE GOING HOME TODAY AND NEEDS HER SERVICES RESUMED [facility] WAS ASSURED THIS MESSAGE WOULD BE PASSED ON AND PTS SERVICES WOULD RESUME THEIR USUAL SCHEDULE MESSAGE SENT TO [facility] INFORMING THEM PT FEELS SHE NEEDS MORE EVENING HOURS [place] [facility] NOTIFIED OF DC [facility], THEY WILL RESUME SERVICES PT WILL BE TRANSPORTED HOME VIA [facility], TIME TBD PENDING X-RAY Original Note: CM MET WITH PT THIS MORNING TO COMPLETE HOUSE COORDINATOR PT REPORTS SHE LIVES ALONE AND HAS [facility] SERVICES FOR A FEW HOURS PER DAY SHE IS ALSO ACTIVE WITH [facility] PT USES AN ELECTRIC W/C AT [employer] BUT IS ABLE TO SELF TRANSFER SHE HAS A HCP ON FILE PCP: GINO MICHAEL IMM DELIVERED DCP: HOME RESUME SERVICES VIA [facility] TRANSPORT PT REPORTS CONCERN THAT HER BIOLOGICAL SCI[employer]ES PROFESSOR SERVICES WERE SUSPENDED DUE TO HER INPT ADMISSION [facility]
--- NOTE | 2023-11-27 13:24 | PC.NURSE ---
Spoke with patient's daughter Susy per patient request. Daughter updated on health status and plan of care. Verbalized understanding and agreeable with plan.
--- NOTE | 2023-11-27 13:56 | P.DS_ITS ---
DS: Providers Provider Date of Service: 11/27/23 Date of admission: 11/24/23 21:19 Primary care physician: Unknown Physician DS: Diagnosis Discharge Diagnosis (1) Fall: Status: Acute (2) Acute UTI: Status: Acute DS: Summary Hospital Course Hospital Course: Chief Complaint: Weakness, fall at home Pt is a 73-year-old female with a PMH significant for HTN, COPD, rheumatoid arthritis, hypothyroidism, GERD, fibromyalgia, ESBL UTI, and mood disorder?who presents to the ED after fall at home. Patient was at home preparing to use her bathroom when she went to pull down her pants and had her ?legs go out . Slid t o the floor due to ?weakness? in her legs and found that she could not stand. Patient lives alone but has a called by N in her bathroom which she use to get assistance. Denies head strike or loss of consciousness. No lightheadedness or dizziness. Denies fever, chills, nausea, vomiting, abdominal pain. No diarrhea. Denies chest pain/pressure, palpitations. No shortness a breath or difficulty breathing. Chronic cough at baseline. Denies polyuria or dysuria. Patient is primarily wheelchair-bound and mostly nonambulatory due to osteoarthritis and right fractured knee not amenable to surgery. However, patient states she is able to normally stand up and take 1-2 steps on her own. Also has help from sustainable landscape architect who come daily for 2-3 hours to help out with ADLs. Patient reports she was discharged from PT yesterday and will likely be discharged from OT during her next session. In the ED pt with low-grade fever up to 99.2 and hypertensive up to 197/106. Labs were grossly unremarkable and baseline for patient. No significant leukocytosis. Stable H&H. No electrolyte abnormalities. Renal and hepatic function baseline. UA positive for UTI. CT of head negative for acute intracranial hemorrhage or edematous territorial infarction. CT of cervical spine negative for acute fracture, but did show cervical spondylolysis, disc degeneration, and 1 cm sclerotic focus and C4 vertebral body of indeterminate significance. CT of abdomen and pelvis found no acute traumatic injury in abdomen or pelvis. CT of lumbar spine found no evidence of acute fracture or traumatic subluxation. Pt was treated with oxycodone, nitrofurantoin, atenolol, and IVF. Pt will be admitted to the hospital for treatment and further evaluation of generalized weakness in the setting of acute UTI concerning for ESBL. Hospital course: The patient presented with generalized weakness and sustained a fall, describing her legs as giving out. She underwent CT imaging of the lumbar spine, head, cervical spine, and abdomen, which revealed no acute traumatic injury. A urinalysis indicated a urinary tract infection (UTI), although the patient did not report any urinary symptoms. It is noteworthy that she has a history of ESBL (Extended-Spectrum Beta-Lactamase) producing E. coliin the urine and was treated for this approximately 6 weeks ago. The current urine culture grew the same strain of E. coli. Despite the absence of fever or elevated white blood cell count, which suggests colonization rather than an active infection, the patient's generalized weakness may be associated with the UTI. Given her history and the recurrent E. coli, it is prudent to treat the infection. The E. coli is sensitive to Macrobid (Nitrofurantoin), and given the patient's serum creatinine levels (greater than 30), treatment will be continued for an additional 7 to 10 days. The patient is not exhibiting signs of sepsis. Generalized weakness with fall at home, likely from UTI, likely arthriis in knee. Xray of knee show...She was evaluated by Physical therapy and Occupation therapy and both recommend STR but she has been adamant that she doesn't want to go to STR because of prior experience of not finding rehab beneficial. Myself, her nurse and embedded case manager talk to her and try to convince her to go and still declined and wants to go home, we will therefore arrange for PT and OT at home for her. I spoke to her daughter Susy and discussed with her also and she was unable to convince to consider rehab and further stated that this has been a pattern in the past Right should pain following fall at home--Xray raised possible suspicion for rotator cuff tear. I Discuss with ortho and they recommend Sling and outpatient follow up to see if MRI is indicated, OT recommended rehab but again she decline d. HTN urgency--when she presented, this has resolved. -Continue atenolol, losartan, doxazosin COPD--no acute exacerbation -Continue home inhalers Chronic lower leg edema -Continue Lasix Chronic lower back and leg pain -Continue home opioids RA -methotrexate, prednisone HypoT -Continue levothyroxine (LT4) Time Attestation Discharge Coordination Time (in mins): 45 Quality: Safe Use of Opioids Does Pt have an Active Cancer Diagnosis on the Problem List?: No Quality: Stroke Does the patient have a stroke diagnosis?: No Physical Exam Vital Signs: Vital Signs: Last Vital Signs Temp 96.8 F 11/27/23 07:32 Pulse 69 11/27/23 07:32 Resp 14 11/27/23 07:32 BP 141/65 H 11/27/23 07:32 Pulse Ox 94 11/27/23 07:32 O2 Del Method Room Air 11/27/23 07:32 O2 Flow Rate 2 11/26/23 19:47 BMI result Body Mass Index 32.8 DS: Data Data Completed and Pending Completed studies during hospitalization [Text1]: Procedures Insertion of Infusion Device into Right Cephalic Vein, Percutaneous Approach (10/13/23) Discharge Plan Discharge Anticipated Discharge Date/Time: 11/27/23 13:47 Patient Disposition: Home Health Service Discharge Diagnosis: Fall, UTI, Right shoulder injury Referrals: [facility] [Other] - 1 Day (Your home care services will resume Monday as regularly scheduled ) [facility] [Other] - 3-5 Days (your home care agencies have been notified and will resume regularly scheduled care ) [facility] [Other] - 1 Week (A message has been left with [facility] requesting they assess you for increased services ) [facility] [Outside] Physician,Unknown J [Primary Care Provider] - 1 Week Discharge Medications: New nitrofurantoin monohyd/m-cryst [Macrobid] 100 mg capsule 100 mg PO Q12H 7 Days Qty: 14 0RF Rx Instructions: must administer with a meal/food Continued omeprazole 40 mg capsule,delayed release(DR/EC) 40 mg PO DAILY@0630 methotrexate sodium 2.5 mg tablet 10 tab PO MO prednisone 1 mg tablet 4 tab PO DAILY levothyroxine 50 mcg tablet 50 mcg PO DAILY@0630 ergocalciferol (vitamin D2) 1,250 mcg (50,000 unit) capsule 1,250 mcg PO TH albuterol sulfate 90 mcg/actuation HFA aerosol inhaler 2 puff PO Q6H PRN (Reason: wheezing) bupropion HCl 300 mg tablet extended release 24 hr 300 mg PO DAILY duloxetine 60 mg capsule,delayed release(DR/EC) 60 mg PO DAILY oxycodone 20 mg tablet 20 mg PO Q4H ondansetron 4 mg tablet,disintegrating 4 mg PO Q8H PRN (Reason: nausea and vomiting) Qty: 10 0RF folic acid 1 mg tablet 1 mg PO DAILY atenolol 25 mg Tablet 25 mg PO DAILY Qty: 30 0RF Protocol: Hold for SBP/HR < HOLD for SBP < : 90 HOLD for HR < : 60 doxazosin 2 mg Tablet 2 mg PO BEDTIME Qty: 30 0RF Protocol: Hold for SBP< HOLD for SBP < : 90 furosemide 20 mg tablet 20 mg PO DAILY Qty: 30 0RF bupropion HCl 150 mg tablet extended release 24 hr 150 mg PO DAILY pregabalin 200 mg capsule 200 mg PO BID Incruse Ellipta 62.5 mcg/actuation blister with device 1 inh inhalation DAILY PRN (Reason: Shortness Of Breath) prednisone 5 mg tablet 5 - 10 mg PO DAILY PRN (Reason: arthritis flare) Diet: Advance to usual diet Activity on Discharge: As tolerated Stand Alone Forms: Patient Portal Discharge page Print Language: Chilean Care Plan Goals: recovery from fall, uti Health Concerns: Weakness, Fall, UTI, Shoulder pain Plan of Treatment: Physical therapy at home follow up with your Doctor in a week Follow up with Orthopedic surgery regarding your right should which may have a tear Use sling as directed by physical therapy Assessment: see above
--- NOTE | 2023-11-27 15:04 | P.F2F_ITS ---
Service Date Service Date: 11/27/23 Encounter Date of encounter: 11/27/23 Reasons for Services Signs and symptoms assessed: weakness, fall, shoulder pain Reason for group home: medication management and teach disease management Reason for physical therapy: home safety and mobility, therapeutic exercises, restore joint function, gait/transfer training and ADL training Reason for occupational therapy: home safety and mobility, therapeutic exercises and gait/transfer training Homebound: Leaving the home is medically contraindicated at this time without the asist of a device and/or another person due th the listed conditions above and below. Reason homebound: unsteady gait / fall risk and fall risk related to blood pressure changes Homebound supporting statement: homebound due to fall, weakness from hospitalization, chronic joint pain, unable to drive and therefore needs the assistance of another person Certification: Based on the above findings, I certify that this patient is confined to the home and needs intermittent group home care, physical therapy and/or speech therapy, or continues to need occupational therapy. The patient is under my car e, and I have initiated the establishment of the plan of care. The patient will be followed by a physician who will periodically review the plan of care. Time Spent With Patient Time: Total time managing care of this patient today ____ minutes.
[2023-11-27 15:21] VITALS: BP 148/70; PULSE 64; RESP 18; TEMP 36.5; O2SAT 94
[2023-11-27] MEDS: Enoxaparin Sodium 40 MG/0.4 ML SYRINGE SUBCUT (19:47)
[2023-11-27] MEDS: Doxazosin Mesylate 2 MG TABLET PO (19:47)
[2023-11-27] MEDS: Melatonin 3 MG TABLET 6 MG PO (19:47)
[2023-11-27 19:55] VITALS: BP 169/72; PULSE 69; RESP 18; TEMP 36.4; O2SAT 96
[2023-11-28] MEDS: oxyCODONE HCl Immed Release 5 MG TABLET 20 MG PO ×6 (00:05→21:15)
[2023-11-28] MEDS: 0.9 % Sodium Chloride Flush 3 ML SYRINGE IVFLUSH ×4 (00:06→21:18)
[2023-11-28 03:52] VITALS: BP 141/84; PULSE 78; RESP 18; TEMP 36; O2SAT 92
[2023-11-28] MEDS: Levothyroxine Sodium 50 MCG TABLET PO (05:30)
[2023-11-28] MEDS: Omeprazole 40 MG CAPSULE.DR PO (05:30)
[2023-11-28 07:22] VITALS: BP 168/76; PULSE 67; RESP 18; TEMP 36.2; O2SAT 95
[2023-11-28] MEDS: Tiotropium Bromide 2.5 mcg 1 PUFF/2.5 MCG MIST.INHAL INHALE (08:34)
[2023-11-28 08:35] VITALS: PULSE 75; RESP 18; O2SAT 98
[2023-11-28] MEDS: DULoxetine HCl 60 MG CAPSULE.DR PO (09:25)
[2023-11-28] MEDS: buPROPion HCl XL 150 MG TAB.ER.24H PO (09:25)
[2023-11-28] MEDS: Pregabalin 200 MG CAPSULE PO ×2 (09:25→21:16)
[2023-11-28] MEDS: predniSONE 1 MG TABLET 4 MG PO (09:25)
[2023-11-28] MEDS: buPROPion HCl XL 300 MG TAB.ER.24H PO (09:25)
[2023-11-28] MEDS: Folic Acid 1 MG TABLET PO (09:25)
[2023-11-28] MEDS: atenoloL 25 MG TABLET PO (09:25)
--- NOTE | 2023-11-28 13:28 | HO.PM.IMPN ---
Subjective Subjective Date of Service: 11/28/23 Interval History: Acute UTI Review of Systems Overall feels better, pain in knee and shoulders are better Physical Exam Vital Signs: Vital Signs: Last Vital Signs Temp 97.1 F 11/28/23 07:22 Pulse 75 11/28/23 08:35 Resp 18 11/28/23 08:35 BP 168/76 H 11/28/23 07:22 Pulse Ox 95 11/28/23 07:22 O2 Del Method Room Air 11/28/23 07:22 O2 Flow Rate 2 11/26/23 19:47 BMI result Body Mass Index 32.8 General: AO X 3, no acute distress Resp: CTA bilateral CVS: S1,S2,RRR, no pitting edema of both legs GI: +BS, NT, no distention Skin: No rash Neuro: motor grossly intact Psych: appropriate affect Objective Data Active Medications Acetaminophen (Acetaminophen 325 Mg Tablet) 650 mg PO Q6H PRN PRN Reason: Pain, Mild (Pain Scale 1-3), fever or headache Albuterol Sulfate (Albuterol Sulfate 90 Mcg 8 Gm Inhaler) 2 puff INHALE Q6H PRN PRN Reason: wheezing Atenolol (Atenolol 25 Mg Tablet) 25 mg PO DAILY [facility]; Protocol Last Admin: 11/28/23 09:25 Dose: 25 mg Documented By: VALENTINE Bupropion HCl (Bupropion Hcl Xl 300 Mg Tab.Er.24h) 300 mg PO DAILY [facility] Last Admin: 11/28/23 09:25 Dose: 300 mg Documented By: VALENTINE Bupropion HCl (Bupropion Hcl Xl 150 Mg Tab.Er.24h) 150 mg PO DAILY [facility] Last Admin: 11/28/23 09:25 Dose: 150 mg Documented By: VALENTINE Calcium Carbonate (Calcium Carbonate 750 Mg Tab.Chew) 750 mg PO Q4H PRN PRN Reason: Heartburn Doxazosin Mesylate (Doxazosin Mesylate 2 Mg Tablet) 2 mg PO BEDTIME [facility]; Protocol Last Admin: 11/27/23 19:47 Dose: 2 mg Documented By: MIKE Duloxetine HCl (Duloxetine Hcl 60 Mg Capsule.Dr) 60 mg PO DAILY [facility] Last Admin: 11/28/23 09:25 Dose: 60 mg Documented By: VALENTINE Ergocalciferol (Ergocalciferol (Vitamin D2) 1,250 Mcg Capsule) 1,250 mcg PO TH [facility] Folic Acid (Folic Acid 1 Mg Tablet) 1 mg PO DAILY [facility] Last Admin: 11/28/23 09:25 Dose: 1 mg Documented By: VALENTINE Levothyroxine Sodium (Levothyroxine Sodium 50 Mcg Tablet) 50 mcg PO DAILY@0600 [facility] Last Admin: 11/28/23 05:30 Dose: 50 mcg Documented By: JENIFFER Magnesium Hydroxide (Milk Of Magnesia 30 Ml Oral.Susp) 30 ml PO DAILY PRN PRN Reason: Constipation Melatonin (Melatonin 3 Mg Tablet) 6 mg PO BEDTIME PRN PRN Reason: Insomnia Last Admin: 11/27/23 19:47 Dose: 6 mg Documented By: MIKE Methotrexate (Methotrexate Sodium 2.5 Mg Tablet) 25 mg PO MO [facility] Last Admin: 11/27/23 23:47 Dose: Not Given Documented By: JENIFFER Non-Admin Reason: Physician Held Med Omeprazole (Omeprazole 40 Mg Capsule.) 40 mg PO DAILY@0630 [facility] Last Admin: 11/28/23 05:30 Dose: 40 mg Documented By: JENIFFER Ondansetron HCl (Ondansetron Hcl 4 Mg/2 Ml Vial) 4 mg IVPUSH Q8H PRN PRN Reason: Nausea and Vomiting Oxycodone HCl (Oxycodone Hcl Immed Release 5 Mg Tablet) 20 mg PO Q4H [facility] Last Admin: 11/28/23 09:25 Dose: 20 mg Documented By: VALENTINE Prednisone (Prednisone 1 Mg Tablet) 4 mg PO DAILY [facility] Last Admin: 11/28/23 09:25 Dose: 4 mg Documented By: VALENTINE Pregabalin (Pregabalin 200 Mg Capsule) 200 mg PO BID [facility] Last Admin: 11/28/23 09:25 Dose: 200 mg Documented By: VALENTINE Sodium Chloride (0.9 % Sodium Chloride Flush 3 Ml Syringe) 3 ml IVFLUSH QSHIFT [facility] Last Admin: 11/28/23 09:27 Dose: 3 ml Documented By: VALENTINE Tiotropium [place] (Tiotropium [place] 2.5 Mcg 1 Puff/2.5 Mcg Mist.Inhal) 1 puff INHALE DAILY [facility] Last Admin: 11/28/23 08:34 Dose: 1 puff Documented By: RUTH Labs 11/25/23 04:52 11/25/23 04:52 Assessment and Plan (1) Fall: Status: Acute (2) Acute UTI: Status: Acute Plan 73/F w/ HTN, COPD, rheumatoid arthritis (RA), hypothyroidism (HypoT), GERD, fibromyalgia, ESBL UTI, and mood disorder?who presents with fall, weakness and UTI Acute UTI, h/o ESBL E.coli 6 weeks ago, no sepsis. usually get confusion with uti e. coli similar to past and therefore likely colonization iv ertapenem to macrobid for total of 10d. Generalized weakness with fall at home no trauma on ct PT recommends STR but she wants to go home with rehab HTN urgency--BP nl Continue atenolol, losartan, doxazosin COPD--no acute exacerbation Continue home inhalers Chronic lower leg edema Continue Lasix Chronic lower back and leg pain Continue home opioids RA:methotrexate, prednisone Right shoulder pain s/p fall -xray ? rotator cuff injury ortho-to see for shoulder xray chnages /right knee -Extensively comminuted fractures throughout the tibial articular surface with displacement, areas of mineralization and foci of partial healing compatible with subacute/chronic fractures. Hypohthyriod: Continue levothyroxine (LT4) Mood disorder- bupropion, duloxetine Full Code DVT Prophylaxis: Lovenox need for inpt: IV Abx for resitan UTI STR when bed available Quality Stroke Does the patient have a stroke diagnosis?: No VTE Prior VTE?: No VTE Risk Level:: Medical - moderate - high VTE Device Contraindication: Treatment Not Indicated VTE Drug Contraindication: N/A - Med Ordered
[2023-11-28] MEDS: metHOTREXate sodium 2.5 MG TABLET 25 MG PO (14:14)
[2023-11-28 15:29] VITALS: BP 149/69; PULSE 68; RESP 20; TEMP 36.2; O2SAT 95
--- NOTE | 2023-11-28 18:04 | P.CONOP_ITS ---
History of Present Illness HPI Consult date: 11/28/23 Chief complaint: Fall Narrative: 73 yo female who was admitted to the medical service for weakness and recurrent falls at home. Patient is primarily wheelchair bound and mostly nonambulatory due to osteoarthritis and a chronic tibial plateau fracture of the right knee. She has a left total knee arthroplasty. Per ED note she is able to stand and pivot for transfers. Hospitalist recommended orthopedic consult for recommendations of right knee pain. Review of Systems 2 Review of Systems: Yes all other systems are reviewed and are negative [facility] Past Medical History Medical History History of ESBL E. coli infection Osteomyelitis COPD (chronic obstructive pulmonary disease) Rheumatoid lung Hypothyroidism Congestive heart failure Fibromyalgia HTN (hypertension) Depression Rheumatoid arthritis Family History Family History Father No problems noted. Other Heart disease Surgical History Surgical History Hx of prior ablation treatment Knee joint replacement status Social History Social History Household Members: None Household Members Other:: 0 Housing: Apartment Unable to assess alcohol history related to: Unknown Alcohol intake: never Patient Tobacco Use Status: Former Tobacco user service: No Meds Allergies Allergy/AdvReac Type Severity Reaction Status Date / Time lisinopril [LISINOPRIL] Allergy Severe ANAPHYLAXIS Verified 12/08/23 11:59 Sulfa (Sulfonamide Allergy Intermediate RASH Verified 12/08/23 11:59 Antibiotics) [SULFA (SULFONAMIDE ANTIBIOTICS)] tramadol [TRAMADOL] Allergy Intermediate RASH Verified 12/08/23 11:59 Vnagpur-WMX-RuF Reductase Allergy Rash Verified 12/08/23 11:59 Inhibitor [Jytrzlt-Fdg-Hzo Reductase Inhibitor] hydrochlorothiazide [HCTZ] AdvReac Unknown ABNORMAL Verified 12/08/23 11:59 LABS? Active Medications: Current Medications Acetaminophen (Acetaminophen 325 Mg Tablet) 650 mg PO Q6H PRN PRN Reason: Pain, Mild (Pain Scale 1-3), fever or headache Albuterol Sulfate (Albuterol Sulfate 90 Mcg 8 Gm Inhaler) 2 puff INHALE Q6H PRN PRN Reason: wheezing Atenolol (Atenolol 25 Mg Tablet) 25 mg PO DAILY COUNTS INCLUDE 234 BEDS AT THE [facility]; Protocol Last Admin: 11/28/23 09:25 Dose: 25 mg Bupropion HCl (Bupropion Hcl Xl 300 Mg Tab.Er.24h) 300 mg PO DAILY COUNTS INCLUDE 234 BEDS AT THE [facility] Last Admin: 11/28/23 09:25 Dose: 300 mg Bupropion HCl (Bupropion Hcl Xl 150 Mg Tab.Er.24h) 150 mg PO DAILY COUNTS INCLUDE 234 BEDS AT THE [facility] Last Admin: 11/28/23 09:25 Dose: 150 mg Calcium Carbonate (Calcium Carbonate 750 Mg Tab.Chew) 750 mg PO Q4H PRN PRN Reason: Heartburn Doxazosin Mesylate (Doxazosin Mesylate 2 Mg Tablet) 2 mg PO BEDTIME COUNTS INCLUDE 234 BEDS AT THE [facility]; Protocol Last Admin: 11/27/23 19:47 Dose: 2 mg Duloxetine HCl (Duloxetine Hcl 60 Mg Capsule.Dr) 60 mg PO DAILY COUNTS INCLUDE 234 BEDS AT THE [facility] Last Admin: 11/28/23 09:25 Dose: 60 mg Ergocalciferol (Ergocalciferol (Vitamin D2) 1,250 Mcg Capsule) 1,250 mcg PO [facility] Folic Acid (Folic Acid 1 Mg Tablet) 1 mg PO DAILY COUNTS INCLUDE 234 BEDS AT THE [facility] Last Admin: 11/28/23 09:25 Dose: 1 mg Levothyroxine Sodium (Levothyroxine Sodium 50 Mcg Tablet) 50 mcg PO DAILY@0600 COUNTS INCLUDE 234 BEDS AT THE [facility] Last Admin: 11/28/23 05:30 Dose: 50 mcg Magnesium Hydroxide (Milk Of Magnesia 30 Ml Oral.Susp) 30 ml PO DAILY PRN PRN Reason: Constipation Melatonin (Melatonin 3 Mg Tablet) 6 mg PO BEDTIME PRN PRN Reason: Insomnia Last Admin: 11/27/23 19:47 Dose: 6 mg Methotrexate (Methotrexate Sodium 2.5 Mg Tablet) 25 mg PO MO COUNTS INCLUDE 234 BEDS AT THE [facility] Last Admin: 11/27/23 23:47 Dose: Not Given Omeprazole (Omeprazole 40 Mg Capsule.Dr) 40 mg PO DAILY@0630 COUNTS INCLUDE 234 BEDS AT THE [facility] Last Admin: 11/28/23 05:30 Dose: 40 mg Ondansetron HCl (Ondansetron Hcl 4 Mg/2 Ml Vial) 4 mg IVPUSH Q8H PRN PRN Reason: Nausea and Vomiting Oxycodone HCl (Oxycodone Hcl Immed Release 5 Mg Tablet) 20 mg PO Q4H COUNTS INCLUDE 234 BEDS AT THE [facility] Last Admin: 11/28/23 17:40 Dose: 20 mg Prednisone (Prednisone 1 Mg Tablet) 4 mg PO DAILY COUNTS INCLUDE 234 BEDS AT THE [facility] Last Admin: 11/28/23 09:25 Dose: 4 mg Pregabalin (Pregabalin 200 Mg Capsule) 200 mg PO BID COUNTS INCLUDE 234 BEDS AT THE [facility] Last Admin: 11/28/23 09:25 Dose: 200 mg Sodium Chloride (0.9 % Sodium Chloride Flush 3 Ml Syringe) 3 ml IVFLUSH QSHIFT COUNTS INCLUDE 234 BEDS AT THE [facility] Last Admin: 11/28/23 17:41 Dose: 3 ml Tiotropium [place] (Tiotropium [place] 2.5 Mcg 1 Puff/2.5 Mcg Mist.Inhal) 1 puff INHALE DAILY COUNTS INCLUDE 234 BEDS AT THE [facility] Last Admin: 11/28/23 08:34 Dose: 1 puff Home Medications ?Medication ?Instructions ?Recorded ?Confirmed ?Last Taken ?Type albuterol sulfate 90 mcg/actuation 2 puff PO Q6H PRN wheezing 08/23/21 12/08/23 11/24/23 12:00 History aerosol inhaler bupropion HCl 300 mg 24 hr tablet, 300 mg PO DAILY 08/23/21 12/08/23 11/24/23 12:00 History extended release duloxetine 60 mg capsule,delayed 60 mg PO DAILY 08/23/21 12/08/23 11/24/23 12:00 History release ergocalciferol (vitamin D2) 1,250 1,250 mcg PO TH 08/23/21 12/08/23 11/24/23 12:00 History mcg (50,000 unit) capsule levothyroxine 50 mcg tablet 50 mcg PO DAILY@62908/23/21 12/08/23 11/24/23 12:00 History methotrexate sodium 2.5 mg tablet 10 tab PO MO 08/23/21 12/08/23 11/20/23 History omeprazole 40 mg capsule,delayed 40 mg PO DAILY@62908/23/21 12/08/23 11/24/23 12:00 History release prednisone 1 mg tablet 4 tab PO DAILY 08/23/21 12/08/23 11/24/23 12:00 History prednisone 5 mg tablet 5 - 10 mg PO DAILY PRN arthritis 02/16/22 12/08/23 11/24/23 12:00 History flare pregabalin 200 mg capsule 200 mg PO BID 01/07/23 12/08/23 11/24/23 12:00 History umeclidinium 62.5 mcg/actuation 1 inh inhalation DAILY PRN 01/07/23 12/08/23 11/24/23 12:00 History blister powder for inhalation Shortness Of Breath (Incruse Ellipta) folic acid 1 mg tablet 1 mg PO DAILY 10/13/23 12/08/23 11/24/23 12:00 History bupropion HCl 150 mg 24 hr tablet, 150 mg PO DAILY 11/25/23 12/08/23 Unknown History extended release losartan 100 mg tablet 100 mg PO DAILY 12/08/23 Unknown History Physical Exam 2 Vital Signs: Vital Signs: Last Vital Signs Temp 97.1 F 11/28/23 15:29 Pulse 68 11/28/23 15:29 Resp 20 11/28/23 15:29 BP 149/69 H 11/28/23 15:29 Pulse Ox 95 11/28/23 15:29 O2 Del Method Room Air 11/28/23 15:29 O2 Flow Rate 2 11/26/23 19:47 BMI result Body Mass Index 32.8 Results Labs 11/25/23 04:52 11/25/23 04:52 Labs: H & H 11/24/23 11/25/23 Range/Units 20:08 04:52 Hgb 14.0 12.6 (12.0-16.0) g/dl Hct 42.6 38.3 (37.0-47.0) % All other labs normal. Diagnostic results Knee CT: image reviewed (CT knee RT wo IV con IMPRESSION: Extensively comminuted fractures throughout the tibial articular surface with displacement, areas of mineralization and foci of partial healing compatible with subacute/chronic fractures. There is surface depression/remodeling with mild genu varus and a moderate j) Assessment and Plan (1) Urinary tract infection due to extended-spectrum beta lactamase (ESBL) producing Escherichia coli: Status: Acute Plan Right tibial plateau fx -non operative , chronic, patient is primarily wheelchair bound Left knee TKA ?fx -non operative, patient is wheelchair bound Right shoulder pain -no acute intervention , no fracture, out patient eval if needed Procedures Date of Service Date of Service: 12/15/23
[2023-11-28 19:44] VITALS: BP 152/70; PULSE 65; RESP 18; TEMP 36.6; O2SAT 96
[2023-11-28 21:15] VITALS: BP 152/70
[2023-11-28] MEDS: Doxazosin Mesylate 2 MG TABLET PO (21:15)
[2023-11-29] MEDS: oxyCODONE HCl Immed Release 5 MG TABLET 20 MG PO ×4 (02:26→12:32)
[2023-11-29 02:34] VITALS: BP 154/78; PULSE 68; RESP 18; TEMP 36.1; O2SAT 94
[2023-11-29] MEDS: Omeprazole 40 MG CAPSULE.DR PO (05:32)
[2023-11-29] MEDS: Levothyroxine Sodium 50 MCG TABLET PO (05:33)
[2023-11-29 07:29] VITALS: BP 148/72; PULSE 63; RESP 16; TEMP 36.6; O2SAT 96
[2023-11-29 07:35] VITALS: BP 148/72; PULSE 63; RESP 16; TEMP 36.3; O2SAT 98
[2023-11-29] MEDS: buPROPion HCl XL 300 MG TAB.ER.24H PO (07:51)
[2023-11-29] MEDS: Pregabalin 200 MG CAPSULE PO (07:51)
[2023-11-29] MEDS: DULoxetine HCl 60 MG CAPSULE.DR PO (07:51)
[2023-11-29] MEDS: buPROPion HCl XL 150 MG TAB.ER.24H PO (07:51)
[2023-11-29] MEDS: Folic Acid 1 MG TABLET PO (07:52)
[2023-11-29] MEDS: predniSONE 1 MG TABLET 4 MG PO (07:52)
[2023-11-29] MEDS: atenoloL 25 MG TABLET PO (07:52)
[2023-11-29] MEDS: Tiotropium Bromide 2.5 mcg 1 PUFF/2.5 MCG MIST.INHAL INHALE (08:04)
[2023-11-29 08:05] VITALS: PULSE 63; RESP 18; O2SAT 98
[2023-11-29] MEDS: 0.9 % Sodium Chloride Flush 3 ML SYRINGE IVFLUSH (08:22)
--- NOTE | 2023-11-29 10:59 | PM.DS ---
DS: Providers Provider Date of Service: 11/29/23 Date of admission: 11/24/23 21:19 Date of discharge: 11/29/23 Primary care physician: Namita Acosta NP Admitting clinician: Eber Lewis Attending physician on admission: Eber Lewis Consults: 11/28/23 07:26 Consult to Orthopedics Routine Consulting Provider: [facility] [place] [facility] Reason for consultation: left tibia plateau fracture Has provider been notified: No Attending physician on discharge: Martin Louie Discharging clinician: Martin Louie DS: Diagnosis Discharge Diagnosis (1) Fall: Status: Acute (2) Acute UTI: Status: Acute DS: Summary Hospital Course Hospital Course: Chief Complaint: Weakness, fall at home Pt is a 73-year-old female with a PMH significant for HTN, COPD, rheumatoid arthritis, hypothyroidism, GERD, fibromyalgia, ESBL UTI, and mood disorder?who presents to the ED after fall at home. Patient was at home preparing to use her bathroom when she went to pull down her pants and had her ?legs go out . Slid to the floor due to ?weakness? in her legs and found that she could not stand. Patient lives alone but has a called by N in her bathroom which she use to get assistance. Denies head strike or loss of consciousness. No lightheadedness or dizziness. Denies fever, chills, nausea, vomiting, abdominal pain. No diarrhea. Denies chest pain/pressure, palpitations. No shortness a breath or difficulty breathing. Chronic cough at baseline. Denies polyuria or dysuria. Patient is primarily wheelchair-bound and mostly nonambulatory due to osteoarthritis and right fractured knee not amenable to surgery. However, patient states she is able to normally stand up and take 1-2 steps on her own. Also has help from cigar bander hand who come daily for 2-3 hours to help out with ADLs. Patient reports she was discharged from PT yesterday and will likely be discharged from OT during her next session. In the ED pt with low-grade fever up to 99.2 and hypertensive up to 197/106. Labs were grossly unremarkable and baseline for patient. No significant leukocytosis. Stable H&H. No electrolyte abnormalities. Renal and hepatic function baseline. UA positive for UTI. CT of head negative for acute intracranial hemorrhage or edematous territorial infarction. CT of cervical spine negative for acute fracture, but did show cervical spondylolysis, disc degeneration, and 1 cm sclerotic focus and C4 vertebral body of indeterminate significance. CT of abdomen and pelvis found no acute traumatic injury in abdomen or pelvis. CT of lumbar spine found no evidence of acute fracture or traumatic subluxation. Pt was treated with oxycodone, nitrofurantoin, atenolol, and IVF. Pt will be admitted to the hospital for treatment and further evaluation of generalized weakness in the setting of acute UTI concerning for ESBL. Hospital course: The patient presented with generalized weakness and sustained a fall, describing her legs as giving out. She underwent CT imaging of the lumbar spine, head, cervical spine, and abdomen, which revealed no acute traumatic injury. A urinalysis indicated a urinary tract infection (UTI), although the patient did not report any urinary symptoms. It is noteworthy that she has a history of ESBL (Extended-Spectrum Beta-Lactamase) producing E. coliin the urine and was treated for this approximately 6 weeks ago. The current urine culture grew the same strain of E. coli. Despite the absence of fever or elevated white blood cell count, which suggests colonization rather than an active infection, the patient's generalized weakness may be associated with the UTI. Given her history and the recurrent E. coli, it is prudent to treat the infection. The E. coli is sensitive to Macrobid (Nitrofurantoin), and given the patient's serum creatinine levels (greater than 30), treatment will be continued for an additional 7 days. The patient is not exhibiting signs of sepsis. Generalized weakness with fall at home, likely from UTI, likely arthriis in knee. Xray of knee done -right tibial plateau fracture, left knee tka ?fx : seen by ortho-non operative , patient is primarily wheelchair bound,also right knee fracture chronic,right shoulder xray ( concern of rotator cuff tear)also reviewed by ortho -no acute intervention , no fracture, out patient eval if needed. She was evaluated by Physical therapy and Occupation therapy intially recomended str but reevaluated by PT(11/29/23) -recomended home with PT ,patient seems near baseline . Right should pain following fall at home--Xray raised possible suspicion for rotator cuff tear. follow up with ortho outpatient follow up to see if MRI is indicated and also f/u with OT . Cervical spine Ct scan incidental finding :1 cm sclerotic focus in the C4 vertebral body, indeterminate. No priors available for comparison. Consider further evaluation with bone scan, as clinically indicated. plan: complete microbid 100 mg po 7 days. consider bone scan for incidental cervical spine 1 cm 1 cm sclerotic focus in the C4 vertebral body, indeterminate.Consider further evaluation with bone scan, as clinically indicated. Follow-up with ortho outpatient for further management-right shoulder concern aflutter cuff tear, also abnormal knee x-rays as above. follow up with pcp. Above management discussed with the patient in detail length with staff present-patient understand and in agreement above plan, time spent 40 minute. Time Attestation Total time managing care of this patient today: 40 mintues. Discharge Coordination Time (in mins): 40 min Quality: Safe Use of Opioids Does Pt have an Active Cancer Diagnosis on the Problem List?: No Quality: Stroke Does the patient have a stroke diagnosis?: No Physical Exam Vital Signs: Vital Signs: Last Vital Signs Temp 97.4 F 11/29/23 07:35 Pulse 63 11/29/23 08:05 Resp 18 11/29/23 08:05 BP 148/72 H 11/29/23 07:35 Pulse Ox 98 11/29/23 07:35 O2 Del Method Room Air 11/29/23 07:35 O2 Flow Rate 2 11/26/23 19:47 BMI result Body Mass Index 32.8 General: AO X 3, no acute distress Resp: CTA bilateral CVS: S1,S2,RRR, no pitting edema of both legs GI: +BS, NT, no distention Skin: No rash Neuro: motor grossly intact,moves all ext. Psych: appropriate affect DS: Data Data Completed and Pending Completed studies during hospitalization [Text1]: Procedures Insertion of Infusion Device into Right Cephalic Vein, Percutaneous Approach (10/13/23) Imaging Chest x-ray: Radiologist's impression: ITS Impressions Abdomen/Pelvis CT 11/24/23 15:08 IMPRESSION: No acute traumatic injury in the abdomen and pelvis. No evidence of acute fracture or traumatic subluxation in the lumbar spine. Nonspecific tiny air focus in the urinary bladder. Other chronic findings as described above. Electronically signed by: Dieter Fitzpatrick MD 11/24/2023 08:47 PM EDT Cervical Spine CT 11/24/23 15:08 IMPRESSION: 1. No CT evidence of acute intracranial hemorrhage or edematous territorial infarction. 2. No CT evidence of acute cervical spine fracture. 3. Cervical spondylosis. Severe C5-6, C6-7 disc degeneration. 4. 1 cm sclerotic focus in the C4 vertebral body, indeterminate. No priors available for comparison. Correlate with patient's clinical history. Consider further evaluation with bone scan, as clinically indicated. Electronically signed by: Ganesh Espinoza MD 11/24/2023 05:35 PM EDT RP Head CT 11/24/23 15:08 IMPRESSION: 1. No CT evidence of acute intracranial hemorrhage or edematous territorial infarction. 2. No CT evidence of acute cervical spine fracture. 3. Cervical spondylosis. Severe C5-6, C6-7 disc degeneration. 4. 1 cm sclerotic focus in the C4 vertebral body, indeterminate. No priors available for comparison. Correlate with patient's clinical history. Consider further evaluation with bone scan, as clinically indicated. Electronically signed by: Ganesh Espinoza MD 11/24/2023 05:35 PM EDT RP Lumbar Spine CT 11/24/23 15:08 IMPRESSION: No acute traumatic injury in the abdomen and pelvis. No evidence of acute fracture or traumatic subluxation in the lumbar spine. Nonspecific tiny air focus in the urinary bladder. Other chronic findings as described above. Electronically signed by: Dieter Fitzpatrick MD 11/24/2023 08:47 PM EDT RP Shoulder X-Ray 11/26/23 10:45 IMPRESSION: Right shoulder: No radiographically evident acute fracture. Superior positioning of the humeral head, raising concern for rotator cuff pathology/tear.. Moderate acromioclavicular arthritis. Left shoulder: Moderate acromioclavicular osteoarthritis. No radiographically evident acute fracture. Electronically signed by: Ganesh Espinoza MD 11/26/2023 05:04 PM EDT RP Shoulder X-Ray 11/26/23 10:45 IMPRESSION: Right shoulder: No radiographically evident acute fracture. Superior positioning of the humeral head, raising concern for rotator cuff pathology/tear.. Moderate acromioclavicular arthritis. Left shoulder: Moderate acromioclavicular osteoarthritis. No radiographically evident acute fracture. Electronically signed by: Ganesh Espinoza MD 11/26/2023 05:04 PM EDT RP Knee X-Ray 11/27/23 14:02 Impression: Extensive chronic appearing and postoperative changes to the right knee. Extensive degenerative changes to the left knee. There is a medial tibial plateau fracture of indeterminate age. Unfortunately I do not have any prior films available for direct comparison. If there is clinical concern for acute fracture in this location, further evaluation with CT scan could be obtained to evaluate further. Electronically signed by: Jason Santo MD 11/27/2023 03:17 PM EDT RP Knee X-Ray 11/27/23 14:02 Impression: Extensive chronic appearing and postoperative changes to the right knee. Extensive degenerative changes to the left knee. There is a medial tibial plateau fracture of indeterminate age. Unfortunately I do not have any prior films available for direct comparison. If there is clinical concern for acute fracture in this location, further evaluation with CT scan could be obtained to evaluate further. Electronically signed by: Jason Santo MD 11/27/2023 03:17 PM EDT RP Knee CT 11/27/23 17:32 IMPRESSION: Status post total knee arthroplasty. There is a well-corticated lucency seen within the posterior medial tibial plateau but this is not have the typical appearance of a fracture. Chronic erosive changes would be suspected but fine detail is obscured by artifact from the adjacent knee prosthesis. There is a complex knee joint effusion with small ossific loose bodies. I do not appreciate any fat layering to suggest a lipohemarthrosis. This critical result was discussed with Rony Geller MD at 11/27/2023 5:31 PM CDT and it was ascertained that the content and urgency of the report was understood at the time of direct communication. Electronically signed by: Jason Santo MD 11/27/2023 06:32 PM EDT RP Knee CT 11/27/23 19:59 IMPRESSION: Extensively comminuted fractures throughout the tibial articular surface with displacement, areas of mineralization and foci of partial healing compatible with subacute/chronic fractures. There is surface depression/remodeling with mild genu varus and a moderate joint effusion. Electronically signed by: Chance Rodríguez MD 11/28/2023 09:28 AM EDT RP Discharge Plan Discharge Anticipated Discharge Date/Time: 11/27/23 13:47 Patient Disposition: Home Health Service Discharge Diagnosis: Fall, UTI, Right shoulder injury Referrals: [facility] [Other] - 1 Day (Your home care services will resume Monday as regularly scheduled ) [facility] [Other] - 3-5 Days (your home care agencies have been notified and will resume regularly scheduled care ) [facility] [Other] - 1 Week (A message has been left with [facility] requesting they assess you for increased services ) [facility] [Outside] Physician,[facility] [Physician] - 1 Week Discharge Medications: New nitrofurantoin monohyd/m-cryst [Macrobid] 100 mg capsule 100 mg PO Q12H 7 Days Qty: 14 0RF Rx Instructions: must administer with a meal/food Continued omeprazole 40 mg capsule,delayed release(DR/EC) 40 mg PO DAILY@0630 methotrexate sodium 2.5 mg tablet 10 tab PO MO prednisone 1 mg tablet 4 tab PO DAILY levothyroxine 50 mcg tablet 50 mcg PO DAILY@0630 ergocalciferol (vitamin D2) 1,250 mcg (50,000 unit) capsule 1,250 mcg PO TH albuterol sulfate 90 mcg/actuation HFA aerosol inhaler 2 puff PO Q6H PRN (Reason: wheezing) bupropion HCl 300 mg tablet extended release 24 hr 300 mg PO DAILY duloxetine 60 mg capsule,delayed release(DR/EC) 60 mg PO DAILY oxycodone 20 mg tablet 20 mg PO Q4H ondansetron 4 mg tablet,disintegrating 4 mg PO Q8H PRN (Reason: nausea and vomiting) Qty: 10 0RF folic acid 1 mg tablet 1 mg PO DAILY atenolol 25 mg Tablet 25 mg PO DAILY Qty: 30 0RF Protocol: Hold for SBP/HR < HOLD for SBP < : 90 HOLD for HR < : 60 doxazosin 2 mg Tablet 2 mg PO BEDTIME Qty: 30 0RF Protocol: Hold for SBP< HOLD for SBP < : 90 furosemide 20 mg tablet 20 mg PO DAILY Qty: 30 0RF bupropion HCl 150 mg tablet extended release 24 hr 150 mg PO DAILY pregabalin 200 mg capsule 200 mg PO BID Incruse Ellipta 62.5 mcg/actuation blister with device 1 inh inhalation DAILY PRN (Reason: Shortness Of Breath) prednisone 5 mg tablet 5 - 10 mg PO DAILY PRN (Reason: arthritis flare) Discharge Orders: Discharge Order (Routine); Ordered 11/29/23 Ordered By: Martin Louie Diet: Advance to usual diet Activity on Discharge: As tolerated Stand Alone Forms: Patient Portal Discharge page Print Language: Tamazight Other Ambulatory Orders: Basic Metabolic Panel (Routine) Timeframe: 1 Week Facility: [facility] - Location: Laboratory Ordered By: Martin Louie Care Plan Goals: recovery from fall, uti Health Concerns: Weakness, Fall, UTI, Shoulder pain. for uti-complete microbid 100 mg po 7 days. consider bone scan for incidental cervical spine 1 cm 1 cm sclerotic focus in the C4 vertebral body, indeterminate.consider outpatient bone scan . Follow-up with ortho outpatient for further management-right shoulder concern aflutter cuff tear, also abnormal knee x-rays as above. follow up with pcp. Plan of Treatment: Physical therapy at home follow up with your Doctor in a week Follow up with Orthopedic surgery regarding your right should which may have a tear . Use sling as directed by physical therapy Assessment: see above
--- NOTE | 2023-11-29 11:30 | P.F2F_ITS ---
Service Date Service Date: 11/29/23 Encounter Date of encounter: 11/29/23 Encounter: uti,generlaised weak. Reasons for Services Signs and symptoms assessed: any new fever or urinary c/o. Reason for intermediate: medication management, medication treatment and teach disease management Reason for physical therapy: home safety and mobility, therapeutic exercises, restore joint function, gait/transfer training, assess need for DME, ADL training, energy conservation and other Reason for occupational therapy: home safety and mobility, therapeutic exercises, restore joint function, gait/transfer training, assess need for DME, ADL training, energy conservation and other MD Overseeing Care: Namita Acosta Homebound: Leaving the home is medically contraindicated at this time without the asist of a device and/or another person due th the listed conditions above and below. Reason homebound: weakness related to hospital stay Homebound supporting statement: Patient is generalized weak hospitalization need help to go to appointments, PT OT, disease management. Certification: Based on the above findings, I certify that this patient is confined to the home and needs intermittent intermediate care, physical therapy and/or speech therapy, or continues to need occupational therapy. The patient is under my care, and I have initiated the establishment of the plan of care. The patient will be followed by a physician who will periodically review the plan of care. Time Spent With Patient Time: Total time managing care of this patient today ____ minutes.
--- NOTE | 2023-11-29 11:56 | MHC.CM.PN ---
DP: PT HAS BEEN MEDICALLY CLEARED FOR DC HOME WITH RESUMPTION OF [facility] FOR P.T., O.T. AND SN. BLS TRANSPORT BOOKED FOR 3 PM VIA [facility]. [facility]. [facility] NOTIFIED OF TODAY'S DC.
[2023-11-29] MEDS: nitrofurantoin macrocrystaL 50 MG CAPSULE 100 MG PO (12:24)
== END 2023-11-29 15:37 | disposition home health service (06) | DRG 690 ==
LOC: HO.ED 21:19 → HO.EDOVER 21:24 → HO.S3 11-25 08:06
PROVIDERS: Physician Assistant Medical; Admitting Provider Student in an Organized Health Care Education/Training Program; Emergency Provider Emergency Medicine; PCP Nurse Practitioner Adult Health; Visit Provider Internal Medicine
DX: N39.0 Urinary tract infection, site not specified (principal); Z16.12 Extended spectrum beta lactamase (ESBL) resistance; E03.9 Hypothyroidism, unspecified; B96.20 Unspecified Escherichia coli [E. coli] as the cause of diseases classified elsewhere; Z22.358 Carrier of other Enterobacterales; I16.0 Hypertensive urgency; S46.011A Strain of muscle(s) and tendon(s) of the rotator cuff of right shoulder, initial encounter; R60.0 Localized edema; F39 Unspecified mood [affective] disorder; M54.50 Low back pain, unspecified; G89.29 Other chronic pain; J44.9 Chronic obstructive pulmonary disease, unspecified; M79.7 Fibromyalgia; M06.9 Rheumatoid arthritis, unspecified; W19.XXXA Unspecified fall, initial encounter; Z87.440 Personal history of urinary (tract) infections; Z79.52 Long term (current) use of systemic steroids; Z99.3 Dependence on wheelchair; Z79.631 Long term (current) use of antimetabolite agent; Z79.890 Hormone replacement therapy; Z79.899 Other long term (current) drug therapy
CPT/HCPCS: 36415; 70450; 72125; 72131; 73030; 73560; 73700; 74176; 80048; 80053; 81001; 85025; 87086; 87088; 87186; 94640; 97110; 97162; 97166; 97530; 99221; 99285; J0360; J1650; J2185

== ENCOUNTER → 2023-11-24 21:19 | Outpatient (BNV) | payer MEDICARE, MEDICAID, SELFPAY | PROVIDERS: Admitting Provider Student in an Organized Health Care Education/Training Program; Emergency Provider Emergency Medicine; PCP Nurse Practitioner Adult Health; Visit Provider Physician Assistant | DX: S82.101A Unspecified fracture of upper end of right tibia, initial encounter for closed fracture (principal); N39.0 Urinary tract infection, site not specified; B96.29 Other Escherichia coli [E. coli] as the cause of diseases classified elsewhere; Z16.12 Extended spectrum beta lactamase (ESBL) resistance | CPT/HCPCS: 99222 ==

== ENCOUNTER → 2023-11-24 21:19 | Outpatient (BNV) | payer MEDICARE, MEDICAID, SELFPAY | PROVIDERS: Admitting Provider Student in an Organized Health Care Education/Training Program; Emergency Provider Emergency Medicine; Visit Provider Student in an Organized Health Care Education/Training Program | DX: N39.0 Urinary tract infection, site not specified (principal); W19.XXXA Unspecified fall, initial encounter | CPT/HCPCS: 99223; 99231; 99232; 99239; G0180 ==

== ENCOUNTER 2023-12-08 11:39 | Inpatient (IN) | payer MEDICARE, MEDICAID, SELFPAY ==
[2023-12-08] VITALS (7 sets, daily range): BP systolic 134–198; BP diastolic 68–92; PULSE 70–101; RESP 12–20; TEMP 36.5–36.7; O2SAT 93–98; BMI 31.3; BMI 30.7
--- NOTE | ~2023-12-08 | CT_ITS ---
EXAMINATION: CT HEAD WITHOUT CONTRAST CLINICAL INFORMATION: Encephalopathy. COMPARISON: CT head and CT angiography head and neck 10/13/2023., CT head 11/24/2023. TECHNIQUE: Contiguous axial imaging was performed from the skull base to vertex without intravenous administration of contrast. This CT examination was performed using dose optimization techniques as appropriate, variously including the following: *Automated exposure control *Adjustment of mA and/or kV according to patient size (this includes techniques or standardized protocols for targeted exams where dose is matched to indication/reason for exam; i.e. extremities or head) *Use of iterative reconstruction technique DLP: 528 mGy-cm FINDINGS: Moderate diffuse commensurate prominence of the ventricles and sulci is noted. No intracranial hemorrhage, tumors or acute infarcts identified. Mild subcortical and periventricular white matter patchy hypodensities are noted. No abnormal extra-axial fluid collections. Moderate segmental calcific atherosclerotic plaques of the cavernous portions of the internal carotid arteries. The orbits and globes are partially included in the imaged field of view and demonstrate no abnormalities. No significant opacification of the visualized paranasal sinuses, mastoid air cells and middle ear cavities. CT/CT head/brain wo IV con IMPRESSION: [No acute intracranial abnormalities. *Mild chronic microangiopathic ischemic changes and mild diffuse parenchymal volume loss. Electronically signed by: Bjorn Lim MD 12/09/2023 11:22 AM EDT
--- NOTE | 2023-12-08 11:52 | ED.GENADULT ---
HPI - General Adult General Chief complaint: Altered Mental Status Stated complaint: ACCOUNTS RECEIVABLE CLERK called 911 AMS from UTI? pt not alert to time Time Seen by Provider: 12/08/23 11:41 Source: patient and EMS Mode of arrival: EMS Limitations: no limitations History of Present Illness HPI narrative: Patient is a 73-year-old female who presents emergency department via EMS for evaluation. She states that she does not need to be here today. She reports that her ACCOUNTS RECEIVABLE CLERK expressed concern that she was confused yesterday. By her account the ACCOUNTS RECEIVABLE CLERK with her today was not in her home yesterday but rather her sister was. She is unable to tell me the circumstances of why they thought she may have been confused. She states ?I thought we were joking around?. She admits to a history of ESBL UTI, she states that it is resistant to many antibiotics, she states she was told by our Infectious Disease doctor that she was always going to have this present, and ?not to bother checking her urine?. She does state that she was in the hospital recently and she states she is still currently taking Macrobid. She offers no physical complaints. She even states that she called her daughter, but her daughter Susy wants to comply with the concerns of her ACCOUNTS RECEIVABLE CLERK therefore patient agreed to have evaluation in the emergency department. She reports that she does not feel as though she needs to be here but is agreeable to having a workup. Denies having any fevers, chills, nausea, vomiting abdominal pain, back pain, symptoms. Related Data Home Medications ?Medication ?Instructions ?Recorded ?Confirmed albuterol sulfate 90 mcg/actuation 2 puff PO Q6H PRN wheezing 08/23/21 12/08/23 aerosol inhaler bupropion HCl 300 mg 24 hr tablet, 300 mg PO DAILY 08/23/21 12/08/23 extended release duloxetine 60 mg capsule,delayed 60 mg PO DAILY 08/23/21 12/08/23 release ergocalciferol (vitamin D2) 1,250 1,250 mcg PO TH 08/23/21 12/08/23 mcg (50,000 unit) capsule levothyroxine 50 mcg tablet 50 mcg PO DAILY@62908/23/21 12/08/23 methotrexate sodium 2.5 mg tablet 10 tab PO MO 08/23/21 12/08/23 omeprazole 40 mg capsule,delayed 40 mg PO DAILY@0630 08/23/21 12/08/23 release oxycodone 20 mg tablet 20 mg PO Q4H Pain 08/23/21 12/08/23 prednisone 1 mg tablet 4 tab PO DAILY 08/23/21 12/08/23 prednisone 5 mg tablet 5 - 10 mg PO DAILY PRN arthritis 02/16/22 12/08/23 flare pregabalin 200 mg capsule 200 mg PO BID 01/07/23 12/08/23 umeclidinium 62.5 mcg/actuation 1 inh inhalation DAILY PRN 01/07/23 12/08/23 blister powder for inhalation Shortness Of Breath (Incruse Ellipta) folic acid 1 mg tablet 1 mg PO DAILY 10/13/23 12/08/23 bupropion HCl 150 mg 24 hr tablet, 150 mg PO DAILY 11/25/23 12/08/23 extended release losartan 100 mg tablet 100 mg PO DAILY 12/08/23 Previous Rx's ?Medication ?Instructions ?Recorded ondansetron 4 mg disintegrating 4 mg PO Q8H PRN nausea and 08/02/23 tablet vomiting #10 tabs atenolol 25 mg tablet 25 mg PO DAILY #30 tabs 10/17/23 doxazosin 2 mg tablet 2 mg PO BEDTIME #30 tabs 10/17/23 furosemide 20 mg tablet 20 mg PO DAILY #30 tabs 10/17/23 Allergies Allergy/AdvReac Type Severity Reaction Status Date / Time lisinopril [LISINOPRIL] Allergy Severe ANAPHYLAXIS Verified 12/08/23 11:59 Sulfa (Sulfonamide Allergy Intermediate RASH Verified 12/08/23 11:59 Antibiotics) [SULFA (SULFONAMIDE ANTIBIOTICS)] tramadol [TRAMADOL] Allergy Intermediate RASH Verified 12/08/23 11:59 Ucbijgq-VPC-UpY Reductase Allergy Rash Verified 12/08/23 11:59 Inhibitor [Jlwrjws-Jlw-Mgo Reductase Inhibitor] hydrochlorothiazide [HCTZ] AdvReac Unknown ABNORMAL Verified 12/08/23 11:59 LABS? Review of Systems Review of Systems: Yes all other systems are reviewed and are negative PMFSH Past Medical History Attestation statement: The following information was validated with the patient. Source: old records reviewed Medical History History of ESBL E. coli infection Osteomyelitis COPD (chronic obstructive pulmonary disease) Rheumatoid lung Hypothyroidism Congestive heart failure Fibromyalgia HTN (hypertension) Depression Rheumatoid arthritis Surgical History Hx of prior ablation treatment Knee joint replacement status Family History Family History Father No problems noted. Other Heart disease Social History Social History Household Members: None Household Members Other:: 0 Housing: Apartment Unable to assess alcohol history related to: Unknown Alcohol intake: never Patient Tobacco Use Status: Former Tobacco user service: No Physical Exam ED Vital Signs: Vital Signs - 24 hr 12/08/23 11:57 12/08/23 12:33 12/08/23 15:18 Temperature 98.1 F Pulse Rate 97 82 70 Respiratory Rate 16 16 16 Blood Pressure 195/80 H 134/77 198/68 H Pulse Oximetry 97 95 98 Oxygen Delivery Method Room Air Room Air Room Air 12/08/23 18:00 12/08/23 18:25 Temperature 97.9 F Pulse Rate 90 94 Respiratory Rate 20 20 Blood Pressure 185/92 H 169/73 H Pulse Oximetry 98 97 Oxygen Delivery Method Room Air BMI result Body Mass Index 31.3 Appearance: Alert.?Oriented to person, place and event, disoriented to time. No acute distress.?Normal affect. Eyes: Pupils equal, round and reactive to light.? ENT: Pharynx normal.?? Neck: Normal inspection.? Neck supple.?? CVS: Heart sounds normal. Normal heart rate and rhythm.? Pulses normal.?? Respiratory: No respiratory distress.? Lung sounds clear to auscultation bilaterally?? Abdomen: Soft and non-tender. Normoactive bowel sounds. No pulsatile mass.?? Skin: Skin warm and dry.? Normal skin color.? Normal skin turgor.?? Extremities: No lower extremity edema.? No calf ttp? Neuro: Moves all extremities spontaneously. Sensation intact bilaterally. CN II-XII intact. No focal neuro deficits. Ambulates with normal steady gait. Course Reevaluation(s) Reevaluation #1: CBC is without leukocytosis or left shift, anemia or thrombocytopenia. No electrolyte derangement. No CASSANDRA. Viral panel is negative. Patient declines to give urinalysis, she is getting agitated at staff requesting to be discharged at this time. She is wheelchair bound at baseline minimally ambulatory.. I spoke with patient daughter Susy, ACCOUNTS RECEIVABLE CLERK's reporting patient with bizzare behaviour, giggling inappropriately, stating she was in [place] when she has actually in [place]. Today she was very sleepy, had to be awoken by her ACCOUNTS RECEIVABLE CLERK then was agitated towards her ACCOUNTS RECEIVABLE CLERK. Daughter expresses concern that she may not be taking her medications as she is supposed to, patient self manages her medications. Daughter states this change occurred approximately 2 weeks ago which would have been when she should have completed her course of Macrobid though by patient's account she is still taking it. Had a head CT 11/24/23 without acute intracranial process, suspect unlikely to space occupying mass.. Time: 13:59 Reevaluation #2: Urinalysis appears consistent with prior, given her acute delirium/apathy do not feel as though she can be discharged in this condition. Covered with ertapenem. No lactic acidosis. Will speak with hospitalist team regarding admission. Medications Administered Generic Name Dose Route Start Last Admin Trade Name Freq PRN Reason Stop Dose Admin Doxazosin Mesylate 2 mg 12/08/23 21:00 12/08/23 20:22 Doxazosin Mesylate 2 Mg Tablet PO 2 mg BEDTIME EUGENIO Administration Protocol Enoxaparin Sodium 40 mg 12/08/23 18:30 12/08/23 19:31 Enoxaparin Sodium 40 Mg/0.4 Ml Syringe SUBCUT 40 mg Q24H EUGENIO Administration Lidocaine 1 patch 12/08/23 19:00 12/08/23 20:23 Lidocaine 4 % Patch Adh..Patch TRANSDERMA 1 patch DAILY EUGENIO Administration Protocol Pregabalin 200 mg 12/08/23 21:00 12/08/23 20:30 Pregabalin 200 Mg Capsule PO 200 mg BID EUGENIO Administration Sodium Chloride 3 ml 12/09/23 00:00 12/08/23 20:23 0.9 % Sodium Chloride Flush 3 Ml Syringe IVFLUSH 3 ml QSHIFT EUGENIO Administration Discontinued Medications Generic Name Dose Route Start Last Admin Trade Name Freq PRN Reason Stop Dose Admin Ertapenem 1 gm/ Sodium 50 mls @ 100 mls/hr 12/08/23 14:31 12/08/23 16:30 Chloride IV 12/08/23 15:00 Infused ONCE ONE Infusion Lorazepam 1 mg 12/08/23 14:25 12/08/23 14:58 Lorazepam 1 Mg Tablet PO 12/08/23 14:26 1 mg ONCE ONE Administration Lorazepam 1 mg 12/08/23 20:23 12/08/23 20:36 Lorazepam 1 Mg Tablet PO 12/08/23 20:24 1 mg ONCE STA Administration Losartan Potassium 100 mg 12/08/23 18:25 12/08/23 20:22 Losartan Potassium 50 Mg Tablet PO 100 mg DAILY EUGENIO Administration Protocol Oxycodone HCl 10 mg 12/08/23 18:22 12/08/23 19:32 Oxycodone Hcl Immed Release 5 Mg Tablet PO 10 mg Q4H PRN Administration Pain, Severe (Pain Scale 7-10) Oxycodone HCl 5 mg 12/08/23 20:27 12/08/23 20:35 Oxycodone Hcl Immed Release 5 Mg Tablet PO 12/08/23 20:28 5 mg ONCE STA Administration Medical Decision Making Medical Decision Making [facility] Narrative: Patient is a 73-year-old female with past medical history of ESBL E coli, osteomyelitis, COPD, hypothyroidism, CHF, fibromyalgia, hypertension, depression, rheumatoid arthritis presenting to emergency department if report that her PCI expressed concern for confusion as per HPI. On review of her medical records she was admitted to the hospital 11/24/2023 discharged 11/29/2023; initially having presented for generalized weakness and a fall, with a urinalysis concerning for UTI though she did not have any urinary symptoms at that time; given the absence of fever or elevated white blood cell count suspected that this may be colonization rather than an active infection but given her new onset generalized weakness she was therefore treated with Macrobid and on the day of discharge she was to be treated with an additional 7 days which therefore would have ended on 12/06/2023. Although, patient does state that she is currently still taking the antibiotic. Differential Diagnosis Differential Diagnoses: The differential diagnosis associated with the presentation includes (UTI versus chronic colonization, medication side effect, encephalopathy, electrolyte derangement, CASSANDRA) Admission/Observation Consideration of admission/observation: Escalation of care including admission/observation considered (See narrative above) Lab Data [facility] Lab Attestation statement: I reviewed the patient's lab results. 12/08/23 12:45 12/08/23 12:45 Labs: Lab Results 12/08/23 12/08/23 12/08/23 Range/Units 12:18 12:45 15:13 WBC 5.6 (4.8-10.8) X10*3/uL RBC 4.23 (4.20-5.50) X10*6/uL Hgb 13.2 (12.0-16.0) g/dl Hct 39.3 (37.0-47.0) % MCV 92.9 (80.0-98.0) fL MCH 31.2 (27.0-33.0) pg MCHC 33.6 (31.0-35.0) g/dl RDW 14.6 (11.0-16.0) % Plt Count 169 (160-400) X10*3/uL MPV 9.6 (9.4-12.3) fL Immature Gran % (Auto) 0.2 (0.0-0.4) % Neut % (Auto) 43.2 L (45-73) % Lymph % (Auto) 31.7 (20-40) % [place] % (Auto) 19.1 H (2-11) % Eos % (Auto) 5.4 H (0-4) % Baso % (Auto) 0.4 (0-2) % Lymph # (Auto) 1.8 (1.2-4.9) X10*3/uL [place] # (Auto) 1.1 (0.1-1.2) X10*3/uL Eos # (Auto) 0.3 (0.0-0.4) X10*3/uL Baso # (Auto) 0.0 (0.0-0.2) X10*3/uL Abs Immat Gran (auto) 0.01 (0.00-0.03) X10*3/uL Absolute Neuts (auto) 2.4 (2.0-8.3) x10*3/uL Absolute Nucleated RBC 0.000 (0.0-0.012) X10*3/uL Nucleated RBC % (auto) 0.0 (0.0-0.2) /100WBC Smear Tech's Comments VERIFIED Sodium 139 (135-145) mmol/L Potassium 3.7 (3.3-5.1) mmol/L Chloride 105 (96-108) mmol/L Carbon Dioxide 26 (22-29) mmol/L Anion Gap 12 (12-20) BUN 18 H (9-16) mg/dL Creatinine 1.09 (0.5-1.4) mg/dL Estim Creat Clear Calc 54.7 Estimated GFR 49 Random Glucose 107 (60-115) mg/dL Lactic Acid 0.9 (0.5-2.0) mmol/L Calcium 9.3 (8.4-10.2) mg/dL Total Bilirubin 0.3 (0.0-1.0) mg/dL AST 15 (5-31) U/L ALT 12 (0-31) U/L Alkaline Phosphatase 103 (39-117) U/L Total Protein 7.4 (6.5-8.0) g/dL Albumin 3.4 L (3.5-5.0) g/dL Urine Color Urine Appearance Urine pH (5.0-9.0) Ur Specific [place] (1.005-1.025) Urine Protein (Neg-Trace) mg/dL Urine Glucose (UA) (Negative) mg/dL Urine Ketones (Negative) mg/dL Urine Blood (Negative) Urine Nitrite (Negative) Ur Leukocyte Esterase (Negative) Urine RBC (0-2) /HPF Urine WBC (0-5) /HPF Ur Squamous Epith Cells (0-2) /HPF Urine Bacteria (None Seen) Hyaline Casts (0-2) /LPF Urine Yeast Urine Opiates Screen (Not Detect) Ur Buprenorphine Scrn (Not Detect) ng/mL Ur Oxycodone Screen (Not Detect) ng/mL Urine Methadone Screen (Not Detect) ng/mL Urine Fentanyl Screen (Not Detect) Ur Barbiturates Screen (Not Detect) Ur Phencyclidine Scrn (Not Detect) Ur Amphetamines Screen (Not Detect) U Benzodiazepines Scrn (Not Detect) Urine Cocaine Screen (Not Detect) U Marijuana (THC) Screen (Not Detect) Influenza Type A (PCR) NEGATIVE (Negative) Influenza Type B (PCR) NEGATIVE (Negative) RSV RNA Qual (PCR) NEGATIVE (Negative) SARS-CoV-2 RNA (RT-PCR) NEGATIVE (Negative) 12/08/23 Range/Units 16:20 WBC (4.8-10.8) X10*3/uL RBC (4.20-5.50) X10*6/uL Hgb (12.0-16.0) g/dl Hct (37.0-47.0) % MCV (80.0-98.0) fL MCH (27.0-33.0) pg MCHC (31.0-35.0) g/dl RDW (11.0-16.0) % Plt Count (160-400) X10*3/uL MPV (9.4-12.3) fL Immature Gran % (Auto) (0.0-0.4) % Neut % (Auto) (45-73) % Lymph % (Auto) (20-40) % [place] % (Auto) (2-11) % Eos % (Auto) (0-4) % Baso % (Auto) (0-2) % Lymph # (Auto) (1.2-4.9) X10*3/uL [place] # (Auto) (0.1-1.2) X10*3/uL Eos # (Auto) (0.0-0.4) X10*3/uL Baso # (Auto) (0.0-0.2) X10*3/uL Abs Immat Gran (auto) (0.00-0.03) X10*3/uL Absolute Neuts (auto) (2.0-8.3) x10*3/uL Absolute Nucleated RBC (0.0-0.012) X10*3/uL Nucleated RBC % (auto) (0.0-0.2) /100WBC Smear Tech's Comments Sodium (135-145) mmol/L Potassium (3.3-5.1) mmol/L Chloride (96-108) mmol/L Carbon Dioxide (22-29) mmol/L Anion Gap (12-20) BUN (9-16) mg/dL Creatinine (0.5-1.4) mg/dL Estim Creat Clear Calc Estimated GFR Random Glucose (60-115) mg/dL Lactic Acid (0.5-2.0) mmol/L Calcium (8.4-10.2) mg/dL Total Bilirubin (0.0-1.0) mg/dL AST (5-31) U/L ALT (0-31) U/L Alkaline Phosphatase (39-117) U/L Total Protein (6.5-8.0) g/dL Albumin (3.5-5.0) g/dL Urine Color Dark Yellow Urine Appearance Turbid Urine pH 5.5 (5.0-9.0) Ur Specific [place] 1.025 (1.005-1.025) Urine Protein 30 (1+) H (Neg-Trace) mg/dL Urine Glucose (UA) Negative (Negative) mg/dL Urine Ketones Trace (Negative) mg/dL Urine Blood Small (1+) H (Negative) Urine Nitrite Positive H (Negative) Ur Leukocyte Esterase Small (1+) H (Negative) Urine RBC 3-5 H (0-2) /HPF Urine WBC >50 H (0-5) /HPF Ur Squamous Epith Cells >20 (0-2) /HPF Urine Bacteria 4+ (None Seen) Hyaline Casts 11-20 (0-2) /LPF Urine Yeast Present Urine Opiates Screen POSITIVE H (Not Detect) Ur Buprenorphine Scrn Not Detected (Not Detect) ng/mL Ur Oxycodone Screen Positive H (Not Detect) ng/mL Urine Methadone Screen Not Detected (Not Detect) ng/mL Urine Fentanyl Screen Not Detected (Not Detect) Ur Barbiturates Screen Not Detected (Not Detect) Ur Phencyclidine Scrn Not Detected (Not Detect) Ur Amphetamines Screen Not Detected (Not Detect) U Benzodiazepines Scrn Not Detected (Not Detect) Urine Cocaine Screen Not Detected (Not Detect) U Marijuana (THC) Screen Not Detected (Not Detect) Influenza Type A (PCR) (Negative) Influenza Type B (PCR) (Negative) RSV RNA Qual (PCR) (Negative) SARS-CoV-2 RNA (RT-PCR) (Negative) Radiology Impression Discussion of test interpretation with radiology: I have reviewed the radiologist's reading. Independent Historian Clinical information obtained from an independent historian. History obtained from or confirmed by: EMS External Record Review External record reviewed: Inpatient record and Outpatient record Discharge Plan Discharge Clinical Impression: Acute metabolic encephalopathy Patient Disposition: Admitted As Inpatient Interventions: Admission Worksheet (ED) Last Done: 12/08/23 19:15 Discharge Date/Time: 12/08/23 20:02
[2023-12-08 12:49] LABS: Basophils Percent Auto 0.4 % (0-2); Eosinophils Absolute Auto 0.3 X10*3/uL (0.0-0.4); Eosinophils Percent Auto 5.4 % (0-4); Hematocrit 39.3 % (37.0-47.0); Hemoglobin 13.2 g/dl (12.0-16.0); Imm Gran Abs Auto 0.01 X10*3/uL (0.00-0.03); Imm Gran Pct Auto 0.2 % (0.0-0.4); Lymphocytes Absolute Auto 1.8 X10*3/uL (1.2-4.9); Lymphocytes Percent Auto 31.7 % (20-40); MANUAL DIFF FLAG SCAN; Mean Corpuscular HGB Conc 33.6 g/dl (31.0-35.0); Mean Corpuscular Hemoglobin 31.2 pg (27.0-33.0); Mean Corpuscular Volume 92.9 fL (80.0-98.0); Mean Platelet Volume 9.6 fL (9.4-12.3); Monocytes Absolute Auto 1.1 X10*3/uL (0.1-1.2); Monocytes Percent Auto 19.1 % (2-11); Neutrophils Absolute Auto 2.4 x10*3/uL (2.0-8.3); Neutrophils Percent Auto 43.2 % (45-73); Platelet Count 169 X10*3/uL (160-400); Red Blood Count 4.23 X10*6/uL (4.20-5.50); Red Cell Distribution Width 14.6 % (11.0-16.0); SCAN SMEAR FLAG 1; White Blood Count 5.6 X10*3/uL (4.8-10.8)
[2023-12-08 13:06] LABS: Alanine Aminotransferase 12 U/L (0-31); Albumin Level 3.4 g/dL (3.5-5.0); Alkaline Phosphatase 103 U/L (39-117); Anion Gap 12 (12-20); Aspartate Amino Transferase 15 U/L (5-31); Bilirubin Total 0.3 mg/dL (0.0-1.0); Blood Urea Nitrogen 18 mg/dL (9-16); Calcium 9.3 mg/dL (8.4-10.2); Carbon Dioxide 26 mmol/L (22-29); Chloride 105 mmol/L (96-108); Creatinine Clr Calc Pharmacy 54.7; Estimated Glomerular Filt Rate 49; Glucose Random 107 mg/dL (60-115); Potassium 3.7 mmol/L (3.3-5.1); Sodium 139 mmol/L (135-145); Total Protein 7.4 g/dL (6.5-8.0)
[2023-12-08 13:11] LABS: Influenza A PCR NEGATIVE (Negative); Influenza B PCR NEGATIVE (Negative); Resp Syncy Virus RNA Qual PCR NEGATIVE (Negative); SARS COV2 PCR INHOUSE NEGATIVE (Negative)
[2023-12-08 13:21] LABS: SLIDE REVIEW VERIFIED
--- NOTE | 2023-12-08 14:04 | PC.NURSE ---
Patient continually ringing call phillips, demanding to be let go home, wanting to speak to her daughter, patient given patient phone, unable to contact daughter. Patient demanding a cab ride home. Patient placed herself on the floor and attempted to crawl out of the ER. [place] clinical coordinator and [place] provider at bedside speaking with patient. Patient refusing to get up.
--- NOTE | 2023-12-08 14:42 | MHC.EDTECH ---
this tech assisted pt off of commode, pt was demanding someone to contact her daughter, nurse was recently in contact with daughter. 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 This tech attempted to explain to pt her daughter was contacting, pt unwilling to listen and repeating that she wants to go home and someone needs to call her daughter. RN aware
[2023-12-08] MEDS: LORazepam 1 MG TABLET PO ×2 (14:58→20:36)
--- NOTE | 2023-12-08 15:17 | PC.NURSE ---
Pt. difficult stick, abx delayed d/t need for IV access.
[2023-12-08 15:40] LABS: Lactic Acid 0.9 mmol/L (0.5-2.0)
[2023-12-08] MEDS: Ertapenem Sodium 1 GM in 0.9 % Sodium Chloride 50 ML IV (15:52)
--- NOTE | 2023-12-08 15:54 | PC.NURSE ---
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
[2023-12-08 16:45] LABS: Appearance Urine Turbid; Color Urine Dark Yellow; Glucose Urine UA Negative (Negative); Leukocyte Esterase Urine Small (1+) (Negative); Nitrite Urine Positive (Negative); PH 5.5 (5.0-9.0); Specific Gravity - Urine 1.025 (1.005-1.025); UMIC TRIGGER UACC YES; Urine Blood Small (1+) (Negative); Urine Ketones Trace mg/dL (Negative); Urine Protein 30 (1+) mg/dL (Neg-Trace)
[2023-12-08 16:55] LABS: Amphetamine Screen Urine Not Detected (Not Detect); Barbiturates, Urine Not Detected (Not Detect); Benzodiazepines Screen Urine Not Detected (Not Detect); Buprenorphine Scr Not Detected (Not Detect); Cannabinoid Screen Urine Not Detected (Not Detect); Cocaine Screen Urine Not Detected (Not Detect); Fentanyl, urine Not Detected (Not Detect); Methadone Screen, Urine Not Detected (Not Detect); Opiate Screen Urine POSITIVE (Not Detect); Oxycodone Screen Urine Positive (Not Detect); Phencyclidine Screen Urine Not Detected (Not Detect)
[2023-12-08 16:57] LABS: Bacteria Urine 4+ (None Seen); Squamous Epithelial Cell Urine >20 /HPF (0-2); UACC Culture Trigger YES; WBC Urine >50 /HPF (0-5)
--- NOTE | 2023-12-08 17:56 | PM.IMHP ---
History of Present Illness Date of Service: 12/08/23 Chief Complaint: confusion 73yo F with HTN, COPD, RA on prednisone + MTX, hypothyroidism, mood disorder, chronic R tibial plateau fracture with TKA, fibromyalgia, and hx ESBL UTI who was recently admitted here 11/23-11/29/23 after a fall and was thought to have ESBL UTI. She was discharged on a course of nitrofurantoin that should have been finished 2 days ago, but she is still taking it, implying that she has missed doses. She was sent in by her TIER IN and her daughter with concerns of altered mental status. She was somnolent and confused last night and again this morning but has also intermittently been agitated and confused, with inappropriate giggling and disorientation, saying she was in [place] rather than [place]. She is on oxycodone 20 mg q4h and her daughter is concerned that she pretty much takes it q4h while awake and that perhaps it is too sedating and causes her to miss other medications. In the ED shereportedly tried to crawl on the floor although she is really not ambulatory. She is wheelchair-bound and lives alone but has a TIER IN as above. Currently she denies fever, chills, chest pain, dyspnea, cough, nausea, vomiting, abdominal pain, dysuria, or polyuria. In the ED, urinalysis showed pyuria, nitrituria, and bacteruria. She was given IV ertapenem as well as lorazepam for agitation. Review of Systems Review of Systems: Yes all other systems are reviewed and are negative [facility] Medical History History of ESBL E. coli infection Osteomyelitis COPD (chronic obstructive pulmonary disease) Rheumatoid lung Hypothyroidism Congestive heart failure Fibromyalgia HTN (hypertension) Depression Rheumatoid arthritis Family History Father No problems noted. Other Heart disease Surgical History Hx of prior ablation treatment Knee joint replacement status Social History Household Members: None Household Members Other:: 0 Housing: Apartment Do you presently have visiting nurse or other home services: Yes (Elder Care every day.) Unable to assess alcohol history related to: Unknown Alcohol intake: never Patient Tobacco Use Status: Former Tobacco user service: No Meds Allergies Allergy/AdvReac Type Severity Reaction Status Date / Time lisinopril [LISINOPRIL] Allergy Severe ANAPHYLAXIS Verified 12/08/23 11:59 Sulfa (Sulfonamide Allergy Intermediate RASH Verified 12/08/23 11:59 Antibiotics) [SULFA (SULFONAMIDE ANTIBIOTICS)] tramadol [TRAMADOL] Allergy Intermediate RASH Verified 12/08/23 11:59 Mqpawsw-FUH-ZwX Reductase Allergy Rash Verified 12/08/23 11:59 Inhibitor [Likfqng-Sqt-Mxs Reductase Inhibitor] hydrochlorothiazide [HCTZ] AdvReac Unknown ABNORMAL Verified 12/08/23 11:59 LABS? Home Medications ?Medication ?Instructions ?Recorded ?Confirmed ?Last Taken ?Type albuterol sulfate 90 mcg/actuation 2 puff PO Q6H PRN wheezing 08/23/21 11/24/23 11/24/23 12:00 History aerosol inhaler bupropion HCl 300 mg 24 hr tablet, 300 mg PO DAILY 08/23/21 11/24/23 11/24/23 12:00 History extended release duloxetine 60 mg capsule,delayed 60 mg PO DAILY 08/23/21 11/25/23 11/24/23 12:00 History release ergocalciferol (vitamin D2) 1,250 1,250 mcg PO TH 08/23/21 11/24/23 11/24/23 12:00 History mcg (50,000 unit) capsule levothyroxine 50 mcg tablet 50 mcg PO DAILY@62908/23/21 11/25/23 11/24/23 12:00 History methotrexate sodium 2.5 mg tablet 10 tab PO MO 08/23/21 11/24/23 11/20/23 History omeprazole 40 mg capsule,delayed 40 mg PO DAILY@62908/23/21 11/24/23 11/24/23 12:00 History release oxycodone 20 mg tablet 20 mg PO Q4H Pain 08/23/21 11/24/23 11/24/23 12:00 History prednisone 1 mg tablet 4 tab PO DAILY 08/23/21 11/24/23 11/24/23 12:00 History prednisone 5 mg tablet 5 - 10 mg PO DAILY PRN arthritis 02/16/22 11/24/23 11/24/23 12:00 History flare pregabalin 200 mg capsule 200 mg PO BID 01/07/23 11/24/23 11/24/23 12:00 History umeclidinium 62.5 mcg/actuation 1 inh inhalation DAILY PRN 01/07/23 11/24/23 11/24/23 12:00 History blister powder for inhalation Shortness Of Breath (Incruse Ellipta) folic acid 1 mg tablet 1 mg PO DAILY 10/13/23 11/24/23 11/24/23 12:00 History bupropion HCl 150 mg 24 hr tablet, 150 mg PO DAILY 11/25/23 11/25/23 Unknown History extended release losartan 100 mg tablet 100 mg PO DAILY 12/08/23 Unknown History Physical Exam Vital Signs and Narrative: Vital Signs: Last Vital Signs Temp 98.1 F 12/08/23 11:57 Pulse 70 12/08/23 15:18 Resp 16 12/08/23 15:18 BP 198/68 H 12/08/23 15:18 Pulse Ox 98 12/08/23 15:18 O2 Del Method Room Air 12/08/23 15:18 BMI result Body Mass Index 31.3 Gen: in no acute distress HEENT: sclera anicteric, moist mucus membranes Neck: supple Lungs: clear to auscultation bilaterally Heart: regular rate and rhythm, no murmurs Abd: soft, non-tender, non-distended Ext: no edema Skin: warm/well-perfused Neuro: alert and oriented to self and place [[place]] but not to date [knows it's Monday and 2023 but unsure about month], symmetrical weakness of legs Psych: appropriate affect Results Labs 12/08/23 12:45 12/08/23 12:45 Labs: Laboratory Results - last 24 hr 12/08/23 12/08/23 12/08/23 12:18 12:45 15:13 MCV 92.9 MCH 31.2 MCHC 33.6 RDW 14.6 Plt Count 169 MPV 9.6 Immature Gran % (Auto) 0.2 Neut % (Auto) 43.2 L Lymph % (Auto) 31.7 Stokes % (Auto) 19.1 H Eos % (Auto) 5.4 H Baso % (Auto) 0.4 Lymph # (Auto) 1.8 Stokes # (Auto) 1.1 Eos # (Auto) 0.3 Baso # (Auto) 0.0 Abs Immat Gran (auto) 0.01 Absolute Neuts (auto) 2.4 Absolute Nucleated RBC 0.000 Nucleated RBC % (auto) 0.0 Smear Tech's Comments VERIFIED Anion Gap 12 Estim Creat Clear Calc 54.7 Estimated GFR 49 Random Glucose 107 Lactic Acid 0.9 Calcium 9.3 Total Bilirubin 0.3 AST 15 ALT 12 Alkaline Phosphatase 103 Total Protein 7.4 Albumin 3.4 L Urine Color Urine Appearance Urine pH Ur Specific [place] Urine Protein Urine Glucose (UA) Urine Ketones Urine Blood Urine Nitrite Ur Leukocyte Esterase Urine RBC Urine WBC Ur Squamous Epith Cells Urine Bacteria Hyaline Casts Urine Yeast Urine Opiates Screen Ur Buprenorphine Scrn Ur Oxycodone Screen Urine Methadone Screen Urine Fentanyl Screen Ur Barbiturates Screen Ur Phencyclidine Scrn Ur Amphetamines Screen U Benzodiazepines Scrn Urine Cocaine Screen U Marijuana (THC) Screen Influenza Type A (PCR) NEGATIVE Influenza Type B (PCR) NEGATIVE RSV RNA Qual (PCR) NEGATIVE SARS-CoV-2 RNA (RT-PCR) NEGATIVE 12/08/23 16:20 MCV MCH MCHC RDW Plt Count MPV Immature Gran % (Auto) Neut % (Auto) Lymph % (Auto) Stokes % (Auto) Eos % (Auto) Baso % (Auto) Lymph # (Auto) Stokes # (Auto) Eos # (Auto) Baso # (Auto) Abs Immat Gran (auto) Absolute Neuts (auto) Absolute Nucleated RBC Nucleated RBC % (auto) Smear Tech's Comments Anion Gap Estim Creat Clear Calc Estimated GFR Random Glucose Lactic Acid Calcium Total Bilirubin AST ALT Alkaline Phosphatase Total Protein Albumin Urine Color Dark Yellow Urine Appearance Turbid Urine pH 5.5 Ur Specific [place] 1.025 Urine Protein 30 (1+) H Urine Glucose (UA) Negative Urine Ketones Trace Urine Blood Small (1+) H Urine Nitrite Positive H Ur Leukocyte Esterase Small (1+) H Urine RBC 3-5 H Urine WBC >50 H Ur Squamous Epith Cells >20 Urine Bacteria 4+ Hyaline Casts 11-20 Urine Yeast Present Urine Opiates Screen POSITIVE H Ur Buprenorphine Scrn Not Detected Ur Oxycodone Screen Positive H Urine Methadone Screen Not Detected Urine Fentanyl Screen Not Detected Ur Barbiturates Screen Not Detected Ur Phencyclidine Scrn Not Detected Ur Amphetamines Screen Not Detected U Benzodiazepines Scrn Not Detected Urine Cocaine Screen Not Detected U Marijuana (THC) Screen Not Detected Influenza Type A (PCR) Influenza Type B (PCR) RSV RNA Qual (PCR) SARS-CoV-2 RNA (RT-PCR) Assessment and Plan (1) Acute metabolic encephalopathy: Status: Acute (2) Urinary tract infection due to extended-spectrum beta lactamase (ESBL) producing Escherichia coli: Status: Acute Plan 73yo F with HTN, COPD, RA on prednisone + MTX, hypothyroidism, 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 Did not take nitrofurantoin prescribed appropriately. Presenting with 2 days of intermittent somnolence and agitation along with disorientation. Concern for UTI vs excess opioid use. toxic-metabolic encepahalopathy - admit to M/S, check CT head, treat UTI as below, check TSH + B12, decrease oxycodone as below chronic pain opioid dependence - was on oxycodone 20 mg q4h for pain from RA; decrease to 10 mg q4h and monitor clinically ESBL UTI - follow UCx, give ertapenem RA - steroid dependent; continue prednisone; if develops hypotension, should get stress-dose steroids hypothyroidism - continue LT4; check TSH as above HTN - atenolol, losartan COPD - prn albuterol fibromyalgia - duloxetine, pregabalin mood disorder - bupropion VTE ppx - enoxaparin dispo - needs PT eval code status - full I anticipate that the patient will stay at least 2 midnights as an inpatient in the hospital due to the above reasons. It is neither reasonable nor safe to care for them in a less acute setting. Quality Stroke Does the patient have a stroke diagnosis?: No VTE Prior VTE?: No VTE Risk Level:: Medical - moderate - high VTE Device Contraindication: N/A - Device Ordered VTE Drug Contraindication: N/A - Med Ordered
--- NOTE | 2023-12-08 18:35 | PC.NURSE ---
Patient continues to be verbally aggressive with staff, intermittently yelling about her back pain, refusing to lie back in bed. Patient informed again about being admitted to the hospital, patient will be medicated when medications are verified through pharmacy. Patient not satisfied with this answer.
--- NOTE | 2023-12-08 19:28 | PHA.MEDREC ---
Addendum entered by Hay Clark [facility] 12/08/23 20:40: For losartan 100 mg, there are recent fill history but per med rec note on 11/24/23, pt has not been taking the losartan. Notified Dr. Reggie Denis about it and she wanted to cancel the losartan order. Losartan was put back as unconfirmed . Addendum entered by Hay Clark [facility] 12/08/23 19:50: Med rec was reviewed by [facility]. Original Note: Pharmacy Consult ? Medication Reconciliation Pharmacy has completed the medication reconciliation. Tried to speak to patient Multiples time, however she was sleeping. called and spoke to patient daughter Susy to confirm med list. Daughter states nothing has changed with patients medication since the last time patient was here on 10/13/23 and 11/24/23. Utilized discharge packet and claims to confirm med list. Left everything on me list, because patient stated last visit she was taking the medications. Included the note from last discharge note on 11/24/23 Ede reported she last filled levothyroxine and duloxetine in September of last year. Patient has been stating she is on both per last visit in September and this visit. I talked with the patient and she says she has multiple bottles of the duloxetine still since she has been only taking it once daily. She confirmed bupropion dose of [address] [facility] reports she does have another refill on file for the 150 mg. Leaving medications on med rec as patient states she is still on them. Changed duloxetine to once daily. Addendum entered by Peace Strong [facility] 11/24/23 22:49: Reviewed by [facility]; no claim history for Cymbalta or levothyroxine even though pt states she takes both. Will have AM med rec team follow up 11/24 Pharmacy has completed the medication reconciliation. Confirmed medications with patient. Patient was a little confused in the beginning about some medications but she states she was just seen here a few weeks ago, I found discharge plan from 10/12 that was able to confirm her claims. The patient states she has not been taking the Losaratan 50mg tab, looking at the Discharge plan the put the medication on hold until 10/31, repeat BMP before starting again and she states she has not started it up again. Patient also states she is taking Bupropion 300mg and a Bupropion 150mg together for a total of 450mg daily but looking in claims she has not filled the 150mg since May 17, 2023 for 90 days. The patient did confirm her Methotrexate 2.5mg, she states she takes 10 tablets every Monday and she last took them Sunday 11/19. Patient confirmed her Oxycodone 20mg tab Q4H as needed for pain and she stated she last took that this morning. She took her medications up until 1-2 this afternoon.
[2023-12-08] MEDS: Enoxaparin Sodium 40 MG/0.4 ML SYRINGE SUBCUT (19:31)
[2023-12-08] MEDS: oxyCODONE HCl Immed Release 5 MG TABLET 10 MG PO (19:32)
--- NOTE | 2023-12-08 19:39 | PC.NURSE ---
Dr. Paredes made aware patient refused CT scan.
--- NOTE | 2023-12-08 19:40 | PC.NURSE ---
Addendum entered by Zarina Sanchez RN 12/08/23 19:48: Dr. Paredes unavailable, gave her Susy's number [phone] to call back when available. Informed Susy patient is going up to room 350. Original Note: Spoke to daughter Susy who is very concerned about patient's oxycodone dosing, believes he mother is at risk for withdrawal. Tried answering daughter's questions, Susy not satisfied with my answers, demanding to speak with the doctor. Dr. Paredes made aware.
[2023-12-08] MEDS: Losartan Potassium 50 MG TABLET 100 MG PO (20:22)
[2023-12-08] MEDS: Doxazosin Mesylate 2 MG TABLET PO (20:22)
[2023-12-08] MEDS: Lidocaine 4 % Patch ADH..PATCH 1 PATCH TRANSDERMA (20:23)
[2023-12-08] MEDS: 0.9 % Sodium Chloride Flush 3 ML SYRINGE IVFLUSH (20:23)
[2023-12-08] MEDS: Pregabalin 200 MG CAPSULE PO (20:30)
[2023-12-08] MEDS: oxyCODONE HCl Immed Release 5 MG TABLET PO (20:35)
--- NOTE | 2023-12-08 22:12 | W.PM.IDCN ---
History of Present Illness Data of Consult Service Date: 12/08/23 Requesting physician: Hiram Dangelo Primary Care Provider: Namita Acosta NP HPI Reason for consult: chronic bacteruria, E coli ,resistant Patient reports being brought in for confusion by caretakers. She has had multiple admissions over last three months. She was admitted 10/10-10/17 with concern for confusion source being E coli. She had CASSANDRA and received 10 days IV antibiotics,started Merem and finished Ertapenem. She also was admitted 11/23-11/28 with confusion and fell and sustained tibial plateau fracture and received one week po nitrofurantoin which she took intermittently. Today she has confusion but no hematuria,urinary discomfort,flank discomfort or fever. In September she did have low grade temperature to 99. She has no reported urinary retention. She has pyuria as per her usual. Review of Systems Review of Systems: Yes all other systems are reviewed and are negative PMFSH Past Medical History Medical History History of ESBL E. coli infection Osteomyelitis COPD (chronic obstructive pulmonary disease) Rheumatoid lung Hypothyroidism Congestive heart failure Fibromyalgia HTN (hypertension) Depression Rheumatoid arthritis Family History Family History Father No problems noted. Other Heart disease Family history: reviewed and not pertinent Surgical History Surgical History Hx of prior ablation treatment Knee joint replacement status Social History Social History Household Members: None Household Members Other:: 0 Housing: Apartment Unable to assess alcohol history related to: Unknown Alcohol intake: never Patient Tobacco Use Status: Former Tobacco user service: No Meds Allergies Allergy/AdvReac Type Severity Reaction Status Date / Time lisinopril [LISINOPRIL] Allergy Severe ANAPHYLAXIS Verified 12/08/23 11:59 Sulfa (Sulfonamide Allergy Intermediate RASH Verified 12/08/23 11:59 Antibiotics) [SULFA (SULFONAMIDE ANTIBIOTICS)] tramadol [TRAMADOL] Allergy Intermediate RASH Verified 12/08/23 11:59 Abonrgn-SAP-ZpV Reductase Allergy Rash Verified 12/08/23 11:59 Inhibitor [Wfozbuy-Blq-Nqi Reductase Inhibitor] hydrochlorothiazide [HCTZ] AdvReac Unknown ABNORMAL Verified 12/08/23 11:59 LABS? Active Medications: Current Medications Acetaminophen (Acetaminophen 325 Mg Tablet) 650 mg PO Q6H PRN PRN Reason: Pain, Mild (Pain Scale 1-3), fever or headache Albuterol Sulfate (Albuterol Sulfate (0.083%) 2.5 Mg/3 Ml Vial.Neb) 2.5 mg INHALE Q2H PRN PRN Reason: Shortness of Breath/Wheezing Atenolol (Atenolol 25 Mg Tablet) 25 mg PO DAILY [facility]; Protocol Bupropion HCl (Bupropion Hcl Xl 150 Mg Tab.Er.24h) 450 mg PO DAILY [facility] Calcium Carbonate (Calcium Carbonate 750 Mg Tab.Chew) 750 mg PO Q4H PRN PRN Reason: Heartburn Doxazosin Mesylate (Doxazosin Mesylate 2 Mg Tablet) 2 mg PO BEDTIME [facility]; Protocol Last Admin: 12/08/23 20:22 Dose: 2 mg Duloxetine HCl (Duloxetine Hcl 60 Mg Capsule.Dr) 60 mg PO DAILY [facility] Enoxaparin Sodium (Enoxaparin Sodium 40 Mg/0.4 Ml Syringe) 40 mg SUBCUT Q24H [facility] Last Admin: 12/08/23 19:31 Dose: 40 mg Folic Acid (Folic Acid 1 Mg Tablet) 1 mg PO DAILY [facility] Furosemide (Furosemide 20 Mg Tablet) 20 mg PO DAILY [facility]; Protocol Meropenem 1 gm/ Sodium (Chloride) 100 mls @ 200 mls/hr IV Q8H [facility] Levothyroxine Sodium (Levothyroxine Sodium 50 Mcg Tablet) 50 mcg PO DAILY@0600 [facility] Lidocaine (Lidocaine 4 % Patch Adh..Patch) 1 patch TRANSDERMA DAILY [facility]; Protocol Last Admin: 12/08/23 20:23 Dose: 1 patch Magnesium Hydroxide (Milk Of Magnesia 30 Ml Oral.Susp) 30 ml PO DAILY PRN PRN Reason: Constipation Melatonin (Melatonin 3 Mg Tablet) 6 mg PO BEDTIME PRN PRN Reason: Insomnia Ondansetron HCl (Ondansetron Hcl 4 Mg/2 Ml Vial) 4 mg IVPUSH Q8H PRN PRN Reason: Nausea and Vomiting Oxycodone HCl (Oxycodone Hcl Immed Release 15 Mg Tablet) 15 mg PO Q4H PRN PRN Reason: Pain, Severe (Pain Scale 7-10) Prednisone (Prednisone 1 Mg Tablet) 4 mg PO DAILY [facility] Pregabalin (Pregabalin 200 Mg Capsule) 200 mg PO BID [facility] Last Admin: 12/08/23 20:30 Dose: 200 mg Sodium Chloride (0.9 % Sodium Chloride Flush 3 Ml Syringe) 3 ml IVFLUSH QSHIFT [facility] Last Admin: 12/08/23 20:23 Dose: 3 ml Home Medications ?Medication ?Instructions ?Recorded ?Confirmed ?Last Taken ?Type albuterol sulfate 90 mcg/actuation 2 puff PO Q6H PRN wheezing 08/23/21 12/08/23 11/24/23 12:00 History aerosol inhaler bupropion HCl 300 mg 24 hr tablet, 300 mg PO DAILY 08/23/21 12/08/23 11/24/23 12:00 History extended release duloxetine 60 mg capsule,delayed 60 mg PO DAILY 08/23/21 12/08/23 11/24/23 12:00 History release ergocalciferol (vitamin D2) 1,250 1,250 mcg PO TH 08/23/21 12/08/23 11/24/23 12:00 History mcg (50,000 unit) capsule levothyroxine 50 mcg tablet 50 mcg PO DAILY@0630 08/23/21 12/08/23 11/24/23 12:00 History methotrexate sodium 2.5 mg tablet 10 tab PO MO 08/23/21 12/08/23 11/20/23 History omeprazole 40 mg capsule,delayed 40 mg PO DAILY@0630 08/23/21 12/08/23 11/24/23 12:00 History release oxycodone 20 mg tablet 20 mg PO Q4H Pain 08/23/21 12/08/23 11/24/23 12:00 History prednisone 1 mg tablet 4 tab PO DAILY 08/23/21 12/08/23 11/24/23 12:00 History prednisone 5 mg tablet 5 - 10 mg PO DAILY PRN arthritis 02/16/22 12/08/23 11/24/23 12:00 History flare pregabalin 200 mg capsule 200 mg PO BID 01/07/23 12/08/23 11/24/23 12:00 History umeclidinium 62.5 mcg/actuation 1 inh inhalation DAILY PRN 01/07/23 12/08/23 11/24/23 12:00 History blister powder for inhalation Shortness Of Breath (Incruse Ellipta) folic acid 1 mg tablet 1 mg PO DAILY 10/13/23 12/08/23 11/24/23 12:00 History bupropion HCl 150 mg 24 hr tablet, 150 mg PO DAILY 11/25/23 12/08/23 Unknown History extended release losartan 100 mg tablet 100 mg PO DAILY 12/08/23 Unknown History Physical Exam Vital Signs: Vital Signs: Last Vital Signs Temp 97.7 F 12/08/23 20:00 Pulse 87 12/08/23 20:00 Resp 12 12/08/23 20:00 BP 172/90 H 12/08/23 20:00 Pulse Ox 93 12/08/23 20:00 O2 Del Method Room Air 12/08/23 20:00 BMI result Body Mass Index 30.7 Psych: Other: knows is in hospital and says was joking around with caretakers seems confused as to which hosptial Results Labs 12/08/23 12:45 12/08/23 12:45 Labs: Short CBC 12/08/23 Range/Units 12:45 WBC 5.6 (4.8-10.8) X10*3/uL Hgb 13.2 (12.0-16.0) g/dl Hct 39.3 (37.0-47.0) % Plt Count 169 (160-400) X10*3/uL BMP 12/08/23 12:45 Sodium 139 Potassium 3.7 Chloride 105 Carbon Dioxide 26 BUN 18 H Creatinine 1.09 Calcium 9.3 Liver Function 12/08/23 Range/Units 12:45 Total Bilirubin 0.3 (0.0-1.0) mg/dL AST 15 (5-31) U/L ALT 12 (0-31) U/L Alkaline Phosphatase 103 (39-117) U/L Albumin 3.4 L (3.5-5.0) g/dL Urine 12/08/23 Range/Units 16:20 Urine Color Dark Yellow Urine Appearance Turbid Urine pH 5.5 (5.0-9.0) Ur Specific [place] 1.025 (1.005-1.025) Urine Protein 30 (1+) H (Neg-Trace) mg/dL Urine Glucose (UA) Negative (Negative) mg/dL Assessment and Plan (1) Acute metabolic encephalopathy: Status: Acute Plan I think this is due to opioid dependence. She probably has confusion due to intermittent taking and withdrawal from opioids They are likely causing urinary retention as well leading to pyuria and hematuria. I dont see any signs of sepsis or bacteremia here. She always is colonized with ESBL E coli There are some benign appearing renal cysts. Would stop antibiotics if not bacteremic or febrile. Manage opioids as outpatient,would taper off to something else for pain.
[2023-12-09 03:12] VITALS: BP 166/84; PULSE 93; RESP 18; TEMP 36.1; O2SAT 99
[2023-12-09] MEDS: Levothyroxine Sodium 50 MCG TABLET PO (05:38)
[2023-12-09 07:03] VITALS: BP 170/77; PULSE 85; RESP 17; TEMP 36.8; O2SAT 94
[2023-12-09 07:53] LABS: Hematocrit 39.8 % (37.0-47.0); Hemoglobin 13.5 g/dl (12.0-16.0); Mean Corpuscular HGB Conc 33.9 g/dl (31.0-35.0); Mean Corpuscular Hemoglobin 31.3 pg (27.0-33.0); Mean Corpuscular Volume 92.3 fL (80.0-98.0); Platelet Count 200 X10*3/uL (160-400); Red Blood Count 4.31 X10*6/uL (4.20-5.50); Red Cell Distribution Width 14.6 % (11.0-16.0); White Blood Count 5.3 X10*3/uL (4.8-10.8)
[2023-12-09 08:00] LABS: Ammonia 22 umol/L (13-55)
[2023-12-09 08:10] LABS: Alanine Aminotransferase 12 U/L (0-31); Albumin Level 3.4 g/dL (3.5-5.0); Alkaline Phosphatase 101 U/L (39-117); Anion Gap 13 (12-20); Aspartate Amino Transferase 15 U/L (5-31); Bilirubin Total 0.5 mg/dL (0.0-1.0); Blood Urea Nitrogen 15 mg/dL (9-16); Calcium 9.4 mg/dL (8.4-10.2); Carbon Dioxide 25 mmol/L (22-29); Chloride 105 mmol/L (96-108); Creatinine Clr Calc Pharmacy 60.9; Estimated Glomerular Filt Rate 57; Glucose Random 85 mg/dL (60-115); Potassium 3.6 mmol/L (3.3-5.1); Sodium 139 mmol/L (135-145); Total Protein 7.4 g/dL (6.5-8.0)
[2023-12-09] MEDS: Lidocaine 4 % Patch ADH..PATCH 1 PATCH TRANSDERMA (08:12)
[2023-12-09] MEDS: oxyCODONE HCl Immed Release 15 MG TABLET PO ×3 (08:24→19:32)
[2023-12-09] MEDS: DULoxetine HCl 60 MG CAPSULE.DR PO (08:35)
[2023-12-09] MEDS: predniSONE 1 MG TABLET 4 MG PO (08:35)
[2023-12-09] MEDS: atenoloL 25 MG TABLET PO (08:35)
[2023-12-09] MEDS: Pregabalin 200 MG CAPSULE PO ×2 (08:35→20:43)
[2023-12-09] MEDS: buPROPion HCl XL 150 MG TAB.ER.24H 450 MG PO (08:35)
[2023-12-09] MEDS: Folic Acid 1 MG TABLET PO (08:35)
[2023-12-09] MEDS: Furosemide 20 MG TABLET PO (08:36)
[2023-12-09 08:46] LABS: Folate 13.8 ng/mL (> or = 4.0); Vitamin B12 676 pg/mL (200-900)
--- NOTE | 2023-12-09 14:16 | HO.PM.IMPN ---
Subjective Subjective Date of Service: 12/09/23 Interval History: Clear and focused this a.m.. No ill affects from decrease of oxycodone from 20-15 mg q.4 Review of Systems Denies chest pain Denies shortness of breath Denies nausea vomiting diarrhea Denies fever chills Physical Exam Vital Signs: Vital Signs: Last Vital Signs Temp 98.2 F 12/09/23 07:03 Pulse 85 12/09/23 07:03 Resp 17 12/09/23 07:03 BP 170/77 H 12/09/23 07:03 Pulse Ox 94 12/09/23 07:03 O2 Del Method Room Air 12/09/23 07:03 BMI result Body Mass Index 30.7 Const: Other: Awake alert no acute distress Resp: Other: Clear to auscultation bilaterally no rales rhonchi or wheezes Cardio: Other: No S4; positive S1-S2; no S3 murmurs rubs or gallops GI: Other: Soft nontender nondistended normoactive bowel sounds Neuro: Other: Cranial nerves 2-12 grossly intact as tested motor 5/5 all extremities. Sensation intact Extrem: Other: No edema bilaterally Objective Data Active Medications Acetaminophen (Acetaminophen 325 Mg Tablet) 650 mg PO Q6H PRN PRN Reason: Pain, Mild (Pain Scale 1-3), fever or headache Albuterol Sulfate (Albuterol Sulfate (0.083%) 2.5 Mg/3 Ml Vial.Neb) 2.5 mg INHALE Q2H PRN PRN Reason: Shortness of Breath/Wheezing Atenolol (Atenolol 25 Mg Tablet) 25 mg PO DAILY [facility]; Protocol Last Admin: 12/09/23 08:35 Dose: 25 mg Documented By: ANTWON Bupropion HCl (Bupropion Hcl Xl 150 Mg Tab.Er.24h) 450 mg PO DAILY [facility] Last Admin: 12/09/23 08:35 Dose: 450 mg Documented By: ANTWON Calcium Carbonate (Calcium Carbonate 750 Mg Tab.Chew) 750 mg PO Q4H PRN PRN Reason: Heartburn Doxazosin Mesylate (Doxazosin Mesylate 2 Mg Tablet) 2 mg PO BEDTIME [facility]; Protocol Last Admin: 12/08/23 20:22 Dose: 2 mg Documented By: RODRICK Duloxetine HCl (Duloxetine Hcl 60 Mg Capsule.Dr) 60 mg PO DAILY [facility] Last Admin: 12/09/23 08:35 Dose: 60 mg Documented By: ANTWON Enoxaparin Sodium (Enoxaparin Sodium 40 Mg/0.4 Ml Syringe) 40 mg SUBCUT Q24H [facility] Last Admin: 12/08/23 19:31 Dose: 40 mg Documented By: KOSTAS Folic Acid (Folic Acid 1 Mg Tablet) 1 mg PO DAILY [facility] Last Admin: 12/09/23 08:35 Dose: 1 mg Documented By: ANTWON Furosemide (Furosemide 20 Mg Tablet) 20 mg PO DAILY [facility]; Protocol Last Admin: 12/09/23 08:36 Dose: 20 mg Documented By: ANTWON Meropenem 1 gm/ Sodium (Chloride) 100 mls @ 200 mls/hr IV Q8H [facility] Last Infusion: 12/09/23 09:49 Dose: Infused Documented By: ANTWON Levothyroxine Sodium (Levothyroxine Sodium 50 Mcg Tablet) 50 mcg PO DAILY@0600 [facility] Last Admin: 12/09/23 05:38 Dose: 50 mcg Documented By: RODRICK Lidocaine (Lidocaine 4 % Patch Adh..Patch) 1 patch TRANSDERMA DAILY [facility]; Protocol Last Admin: 12/09/23 08:12 Dose: 1 patch Documented By: ANTWON Magnesium Hydroxide (Milk Of Magnesia 30 Ml Oral.Susp) 30 ml PO DAILY PRN PRN Reason: Constipation Melatonin (Melatonin 3 Mg Tablet) 6 mg PO BEDTIME PRN PRN Reason: Insomnia Ondansetron HCl (Ondansetron Hcl 4 Mg/2 Ml Vial) 4 mg IVPUSH Q8H PRN PRN Reason: Nausea and Vomiting Oxycodone HCl (Oxycodone Hcl Immed Release 15 Mg Tablet) 15 mg PO Q4H PRN PRN Reason: Pain, Severe (Pain Scale 7-10) Last Admin: 12/09/23 08:24 Dose: 15 mg Documented By: ANTWON Prednisone (Prednisone 1 Mg Tablet) 4 mg PO DAILY [facility] Last Admin: 12/09/23 08:35 Dose: 4 mg Documented By: ANTWON Pregabalin (Pregabalin 200 Mg Capsule) 200 mg PO BID [facility] Last Admin: 12/09/23 08:35 Dose: 200 mg Documented By: ANTWON Sodium Chloride (0.9 % Sodium Chloride Flush 3 Ml Syringe) 3 ml IVFLUSH QSHIFT [facility] Last Admin: 12/09/23 08:45 Dose: Not Given Documented By: ANTWON Non-Admin Reason: Previously Administered Labs 12/09/23 07:35 12/09/23 07:35 Labs: Laboratory Results - last 24 hr 12/08/23 12/08/23 12/09/23 15:13 16:20 07:35 MCV 92.3 MCH 31.3 MCHC 33.9 RDW 14.6 Plt Count 200 MPV 10.0 Absolute Nucleated RBC 0.000 Nucleated RBC % (auto) 0.0 Anion Gap 13 Estim Creat Clear Calc 60.9 Estimated GFR 57 Random Glucose 85 Lactic Acid 0.9 Calcium 9.4 Total Bilirubin 0.5 AST 15 ALT 12 Alkaline Phosphatase 101 Ammonia 22 Total Protein 7.4 Albumin 3.4 L Vitamin B12 676 Folate 13.8 Urine Color Dark Yellow Urine Appearance Turbid Urine pH 5.5 Ur Specific [place] 1.025 Urine Protein 30 (1+) H Urine Glucose (UA) Negative Urine Ketones Trace Urine Blood Small (1+) H Urine Nitrite Positive H Ur Leukocyte Esterase Small (1+) H Urine RBC 3-5 H Urine WBC >50 H Ur Squamous Epith Cells >20 Urine Bacteria 4+ Hyaline Casts 11-20 Urine Yeast Present Urine Opiates Screen POSITIVE H Ur Buprenorphine Scrn Not Detected Ur Oxycodone Screen Positive H Urine Methadone Screen Not Detected Urine Fentanyl Screen Not Detected Ur Barbiturates Screen Not Detected Ur Phencyclidine Scrn Not Detected Ur Amphetamines Screen Not Detected U Benzodiazepines Scrn Not Detected Urine Cocaine Screen Not Detected U Marijuana (THC) Screen Not Detected Microbiology Microbiology Results: Microbiology 12/08/23 16:58 Urine Culture - Preliminary Urine clean catch - Clean Catch Midstream Culture in progress. Assessment and Plan (1) Acute metabolic encephalopathy: Status: Acute (2) Urinary tract infection due to extended-spectrum beta lactamase (ESBL) producing Escherichia coli: Status: Acute Plan 73yo F with HTN, COPD, RA on prednisone + MTX, hypothyroidism, 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 Did not take nitrofurantoin prescribed appropriately. Presenting with 2 days of intermittent somnolence and agitation along with disorientation. Concern for UTI vs excess opioid use. 1Toxic-metabolic encepahalopathy -as compared to admission notes much clear -CTA of head done today without acute findings -continue to treat UTI 2.Chronic pain w/opioid dependence secondary to RA - doing well with 15 mg of oxycodone q.4 PRN -we will continue same and follow 2.ESBL... UTI -continue ertapenem; inadequate treat met with orals. Given improvement when mentation with minimal reduction of opiates would continue antibiotics pending culture 3.RA(steroid dependent) -continue outpatient dosing as ordered 4.HTN -acceptable control on current therapies -adjust as indicated 5.COPD - no acute issues this admission Full code Lovenox Requires ongoing hospitalization for IV antibiotics pending urine culture Quality Stroke Does the patient have a stroke diagnosis?: No VTE Prior VTE?: No VTE Risk Level:: Medical - moderate - high VTE Device Contraindication: N/A - Device Ordered VTE Drug Contraindication: N/A - Med Ordered
[2023-12-09] MEDS: 0.9 % Sodium Chloride Flush 3 ML SYRINGE IVFLUSH ×2 (15:18→20:47)
[2023-12-09 16:00] VITALS: BP 160/76; PULSE 76; RESP 20; TEMP 36.5; O2SAT 96
[2023-12-09 16:32] LABS: Glucose, Whole Blood 100 mg/dL (60-115)
[2023-12-09] MEDS: Enoxaparin Sodium 40 MG/0.4 ML SYRINGE SUBCUT (18:09)
[2023-12-09 19:49] VITALS: BP 163/81; PULSE 80; RESP 20; TEMP 36.8; O2SAT 94
[2023-12-09] MEDS: Doxazosin Mesylate 2 MG TABLET PO (20:43)
[2023-12-09] MEDS: Melatonin 3 MG TABLET 6 MG PO (20:46)
[2023-12-10] MEDS: oxyCODONE HCl Immed Release 15 MG TABLET PO ×5 (00:11→23:32)
[2023-12-10 03:33] VITALS: BP 135/65; PULSE 72; RESP 20; TEMP 36.2; O2SAT 94
[2023-12-10] MEDS: Levothyroxine Sodium 50 MCG TABLET PO (05:08)
[2023-12-10 07:56] VITALS: BP 183/84; PULSE 72; RESP 14; TEMP 36.1; O2SAT 93
[2023-12-10] MEDS: buPROPion HCl XL 150 MG TAB.ER.24H 450 MG PO (08:19)
[2023-12-10] MEDS: Pregabalin 200 MG CAPSULE PO ×2 (08:19→20:32)
[2023-12-10] MEDS: atenoloL 25 MG TABLET PO (08:19)
[2023-12-10] MEDS: Lidocaine 4 % Patch ADH..PATCH 1 PATCH TRANSDERMA (08:19)
[2023-12-10] MEDS: DULoxetine HCl 60 MG CAPSULE.DR PO (08:19)
[2023-12-10] MEDS: Furosemide 20 MG TABLET PO (08:19)
[2023-12-10] MEDS: Folic Acid 1 MG TABLET PO (08:19)
[2023-12-10] MEDS: predniSONE 1 MG TABLET 4 MG PO (08:19)
[2023-12-10] MEDS: 0.9 % Sodium Chloride Flush 3 ML SYRINGE IVFLUSH ×3 (08:22→23:33)
--- NOTE | 2023-12-10 12:36 | HO.PM.IMPN ---
Subjective Subjective Date of Service: 12/10/23 Interval History: Mentation remains at baseline. Pain control adequate on 15 mg q.4 hours. Awaiting final culture Review of Systems Denies chest pain Denies shortness of breath Denies nausea vomiting diarrhea Denies fever chills Physical Exam Vital Signs: Vital Signs: Last Vital Signs Temp 97 F 12/10/23 07:56 Pulse 72 12/10/23 07:56 Resp 14 12/10/23 07:56 BP 183/84 H 12/10/23 07:56 Pulse Ox 93 12/10/23 07:56 O2 Del Method Room Air 12/10/23 07:56 BMI result Body Mass Index 30.7 Const: Other: Awake alert no acute distress Resp: Other: Clear to auscultation bilaterally no rales rhonchi or wheezes Cardio: Other: No S4; positive S1-S2; no S3 murmurs rubs or gallops GI: Other: Soft nontender nondistended normoactive bowel sounds Neuro: Other: Cranial nerves 2-12 grossly intact as tested motor 5/5 all extremities. Sensation intact Extrem: Other: No edema bilaterally Objective Data Active Medications Acetaminophen (Acetaminophen 325 Mg Tablet) 650 mg PO Q6H PRN PRN Reason: Pain, Mild (Pain Scale 1-3), fever or headache Albuterol Sulfate (Albuterol Sulfate (0.083%) 2.5 Mg/3 Ml Vial.Neb) 2.5 mg INHALE Q2H PRN PRN Reason: Shortness of Breath/Wheezing Atenolol (Atenolol 25 Mg Tablet) 25 mg PO DAILY [facility]; Protocol Last Admin: 12/10/23 08:19 Dose: 25 mg Documented By: ANTWON Bupropion HCl (Bupropion Hcl Xl 150 Mg Tab.Er.24h) 450 mg PO DAILY [facility] Last Admin: 12/10/23 08:19 Dose: 450 mg Documented By: ANTWON Calcium Carbonate (Calcium Carbonate 750 Mg Tab.Chew) 750 mg PO Q4H PRN PRN Reason: Heartburn Doxazosin Mesylate (Doxazosin Mesylate 2 Mg Tablet) 2 mg PO BEDTIME [facility]; Protocol Last Admin: 12/09/23 20:43 Dose: 2 mg Documented By: RODRICK Duloxetine HCl (Duloxetine Hcl 60 Mg Capsule.Dr) 60 mg PO DAILY [facility] Last Admin: 12/10/23 08:19 Dose: 60 mg Documented By: ANTWON Enoxaparin Sodium (Enoxaparin Sodium 40 Mg/0.4 Ml Syringe) 40 mg SUBCUT Q24H [facility] Last Admin: 12/09/23 18:09 Dose: 40 mg Documented By: ANTWON Folic Acid (Folic Acid 1 Mg Tablet) 1 mg PO DAILY [facility] Last Admin: 12/10/23 08:19 Dose: 1 mg Documented By: ANTWON Furosemide (Furosemide 20 Mg Tablet) 20 mg PO DAILY [facility]; Protocol Last Admin: 12/10/23 08:19 Dose: 20 mg Documented By: ANTWON Meropenem 1 gm/ Sodium (Chloride) 100 mls @ 200 mls/hr IV Q8H [facility] Last Infusion: 12/10/23 09:36 Dose: Infused Documented By: ANTWON Levothyroxine Sodium (Levothyroxine Sodium 50 Mcg Tablet) 50 mcg PO DAILY@0600 [facility] Last Admin: 12/10/23 05:08 Dose: 50 mcg Documented By: RODRICK Lidocaine (Lidocaine 4 % Patch Adh..Patch) 1 patch TRANSDERMA DAILY [facility]; Protocol Last Admin: 12/10/23 08:19 Dose: 1 patch Documented By: ANTWON Magnesium Hydroxide (Milk Of Magnesia 30 Ml Oral.Susp) 30 ml PO DAILY PRN PRN Reason: Constipation Melatonin (Melatonin 3 Mg Tablet) 6 mg PO BEDTIME PRN PRN Reason: Insomnia Last Admin: 12/09/23 20:46 Dose: 6 mg Documented By: RODRICK Ondansetron HCl (Ondansetron Hcl 4 Mg/2 Ml Vial) 4 mg IVPUSH Q8H PRN PRN Reason: Nausea and Vomiting Oxycodone HCl (Oxycodone Hcl Immed Release 15 Mg Tablet) 15 mg PO Q4H PRN PRN Reason: Pain, Severe (Pain Scale 7-10) Last Admin: 12/10/23 05:08 Dose: 15 mg Documented By: RODRICK Prednisone (Prednisone 1 Mg Tablet) 4 mg PO DAILY [facility] Last Admin: 12/10/23 08:19 Dose: 4 mg Documented By: ANTWON Pregabalin (Pregabalin 200 Mg Capsule) 200 mg PO BID [facility] Last Admin: 09/15/24 08:19 Dose: 200 mg Documented By: ANTWON Sodium Chloride (0.9 % Sodium Chloride Flush 3 Ml Syringe) [facility] Last Admin: 12/10/23 08:22 Dose: 3 ml Documented By: ANTWON Labs 12/09/23 07:35 12/09/23 07:35 Labs: Laboratory Results - last 24 hr 12/09/23 16:18 POC Glucose 100 Microbiology Microbiology Results: Microbiology 12/08/23 16:58 Urine Culture - Preliminary Urine clean catch - Clean Catch Midstream Gram negative altaf Enterococcus/Streptococcus sp 12/08/23 15:10 Blood Culture - Preliminary Blood - Venous No growth after 24 hours. 12/08/23 15:10 Blood Culture - Preliminary Blood - Venous No growth after 24 hours. Assessment and Plan (1) Acute metabolic encephalopathy: Status: Acute Plan 73yo F with HTN, COPD, RA on prednisone + MTX, hypothyroidism, 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 Did not take nitrofurantoin prescribed appropriately. Presenting with 2 days of intermittent somnolence and agitation along with disorientation. Concern for UTI vs excess opioid use. 1Toxic-metabolic encepahalopathy -as compared to admission notes much clear -CTA of head done today without acute findings -continue to treat UTI... Discussed with ID. Encephalopathy likely unrelated to urine however we will continue antibiotics until urine culture finalized 2.Chronic pain w/opioid dependence secondary to RA - doing well with 15 mg of oxycodone q.4 PRN -we will continue same and follow 2.ESBL... UTI -continue ertapenem; inadequate treat met with orals. Given improvement when mentation with minimal reduction of opiates would continue antibiotics pending culture 3.RA(steroid dependent) -continue outpatient dosing as ordered 4.HTN -acceptable control on current therapies -adjust as indicated 5.COPD - no acute issues this admission Full code Lovenox Requires ongoing hospitalization for IV antibiotics pending urine culture Quality Stroke Does the patient have a stroke diagnosis?: No VTE Prior VTE?: No VTE Risk Level:: Medical - moderate - high VTE Device Contraindication: N/A - Device Ordered VTE Drug Contraindication: N/A - Med Ordered
[2023-12-10 15:49] VITALS: BP 160/60; PULSE 75; RESP 14; TEMP 36.6; O2SAT 95
--- NOTE | 2023-12-10 16:04 | MHC.CM.PN ---
PT REPORTS SHE LIVES ALONE AND HAS DAILY [employer]ANT SERVICES PT HAS A SAP PAYROLL CONSULTANT FROM [facility] ([phone]) Q M-F DURING THE DAY AND M&F IN THE EVENING PT DID HAVE WEEKEND [employer] CONSULTANT SERVICES THROUGH [facility] [phone], HOWEVER HER AID RECENTLY LEFT THE AGENCY, AND THEY HAVE NOT YET REPLACED HER PT IS ALSO ACTIVE WITH [facility] PT USES AN ELECTRIC W/C AT [facility] HCP ON FILE PCP: GINO MICHAEL IMM DELIVERED DCP: [facility] VIA BLS TRANSPORT
--- NOTE | 2023-12-10 16:44 | PC.NURSE ---
pt complaining of urge to void, bladder scanned for 688ml. Dr Guillermo made aware. Pt put on commode and voided 300. PVR bladder scan showed 554. Pt straight cath'd per MD. 550 ml clear yellow urine from straight cath. Pt reports feeling less pressure and discomfort.
[2023-12-10] MEDS: Enoxaparin Sodium 40 MG/0.4 ML SYRINGE SUBCUT (17:38)
[2023-12-10 19:24] VITALS: BP 160/84; PULSE 72; RESP 18; TEMP 36.4; O2SAT 96
[2023-12-10] MEDS: Doxazosin Mesylate 2 MG TABLET PO (20:32)
[2023-12-10] MEDS: Acetaminophen 325 MG TABLET 650 MG PO (22:55)
[2023-12-10] MEDS: Melatonin 3 MG TABLET 6 MG PO (23:32)
[2023-12-11 03:12] VITALS: BP 160/84; PULSE 74; RESP 16; TEMP 36; O2SAT 97
[2023-12-11] MEDS: Levothyroxine Sodium 50 MCG TABLET PO (05:20)
[2023-12-11 07:42] VITALS: BP 175/80; PULSE 66; RESP 16; TEMP 36.7; O2SAT 96
[2023-12-11] MEDS: atenoloL 25 MG TABLET PO (08:13)
[2023-12-11] MEDS: Pregabalin 200 MG CAPSULE PO (08:13)
[2023-12-11] MEDS: Folic Acid 1 MG TABLET PO (08:13)
[2023-12-11] MEDS: oxyCODONE HCl Immed Release 15 MG TABLET PO ×2 (08:13→12:42)
[2023-12-11] MEDS: DULoxetine HCl 60 MG CAPSULE.DR PO (08:13)
[2023-12-11] MEDS: predniSONE 1 MG TABLET 4 MG PO (08:13)
[2023-12-11] MEDS: buPROPion HCl XL 150 MG TAB.ER.24H 450 MG PO (08:13)
[2023-12-11] MEDS: Furosemide 20 MG TABLET PO (08:13)
[2023-12-11] MEDS: Acetaminophen 325 MG TABLET 650 MG PO ×2 (08:14→12:42)
[2023-12-11] MEDS: Lidocaine 4 % Patch ADH..PATCH 1 PATCH TRANSDERMA (08:14)
[2023-12-11] MEDS: 0.9 % Sodium Chloride Flush 3 ML SYRINGE IVFLUSH (08:15)
--- NOTE | 2023-12-11 09:07 | PC.NURSE ---
PATIENT REFUSES SEQUENTIAS,dR. JULIO NOTIFIED,RISK EXPLAINED,ENCOURAGED ACTIVITY
--- NOTE | 2023-12-11 12:00 | P.DS_ITS ---
DS: Providers Provider Date of Service: 12/11/23 Date of admission: 12/08/23 18:26 Date of discharge: 12/11/23 Primary care physician: Namita Acosta NP Consults: 12/08/23 14:32 Consult to Infectious Diseases Routine Consulting Provider: MONICA ORTEGA Reason for consultation: ESBL ?colonization - AMS DS: Diagnosis Discharge Diagnosis (1) Acute metabolic encephalopathy: Status: Acute DS: Summary Hospital Course Hospital Course: 73yo F with HTN, COPD, RA on prednisone + MTX, hypothyroidism, mood disorder, chronic R tibial plateau fracture with TKA, fibromyalgia, and hx ESBL UTI who was recently admitted here 11/23-11/29/23 after a fall and was thought to have ESBL UTI. She was discharged on a course of nitrofurantoin that should have been finished 2 days ago, but she is still taking it, implying that she has missed doses. She was sent in by her TECHNOLOGY APPLICATIONS TEACHER and her daughter with concerns of altered mental status. She was somnolent and confused last night and again this morning but has also intermittently been agitated and confused, with inappropriate giggling and disorientation, saying she was in [place] rather than [place]. She is on oxycodone 20 mg q4h and her daughter is concerned that she pretty much takes it q4h while awake and that perhaps it is too sedating and causes her to miss other medications. In the ED shereportedly tried to crawl on the floor although she is really not ambulatory. She is wheelchair-bound and lives alone but has a TECHNOLOGY APPLICATIONS TEACHER as above. Currently she denies fever, chills, chest pain, dyspnea, cough, nausea, vomiting, abdominal pain, dysuria, or polyuria. In the ED, urinalysis showed pyuria, nitrituria, and bacteruria. She was given IV ertapenem as well as lorazepam for agitation. Hospital Course Patient admitted to general medical floor after receiving 1 dose of ertapenem in the emergency room. When seen a.m. 12/09/2023, patient awake alert oriented x3 and appropriate. Urine with active sediment. Oxycodone had been decreased to 15 mg but only for 2 doses. Discussed with ID; question confusion related to UTI versus over medication. Id felt unlikely due to UTI however will continue treatment with Macrobid. Patient's mentation over the next 24:48 hours continued to be appropriate. When questioned patient states she has 20 mg prescription at home which was recently failed. Discussed with patient at length; can not give script for 15 mg given recent fill of 20 mg. Patient advised strongly to increase her frequency to every 6 hours and follow up with her PCP to assess current needs in light of above findings. She will complete a course of Macrobid and follow up with her PCP. At this point in time she is medically acceptable for discharge Time Attestation Discharge Coordination Time (in mins): 35 Quality: Safe Use of Opioids Does Pt have an Active Cancer Diagnosis on the Problem List?: No Quality: Stroke Does the patient have a stroke diagnosis?: No Physical Exam Vital Signs: Vital Signs: Last Vital Signs Temp 98.1 F 12/11/23 07:42 Pulse 66 12/11/23 07:42 Resp 16 12/11/23 07:42 BP 175/80 H 12/11/23 07:42 Pulse Ox 96 12/11/23 07:42 O2 Del Method Room Air 12/11/23 07:42 BMI result Body Mass Index 30.7 Const: Other: Awake alert no acute distress Resp: Other: Clear to auscultation bilaterally no rales rhonchi or wheezes Cardio: Other: No S4; positive S1-S2; no S3 murmurs rubs or gallops GI: Other: Soft nontender nondistended normoactive bowel sounds Neuro: Other: Cranial nerves 2-12 grossly intact as tested motor 5/5 all extremities. Sensation intact. Awake alert oriented x3. Answers questions appropriately; affect appropriate. No inappropriate answers. Extrem: Other: No edema bilaterally DS: Data Data Completed and Pending Completed studies during hospitalization [Text1]: Procedures Insertion of Infusion Device into Right Cephalic Vein, Percutaneous Approach (10/13/23) Labs on day of discharge: Preliminary micro results at discharge 12/08/23 15:10 Blood Culture - Preliminary Blood - Venous No growth after 48 hours. 12/08/23 15:10 Blood Culture - Preliminary Blood - Venous No growth after 48 hours. Discharge Plan Discharge Anticipated Discharge Date/Time: 12/11/23 11:50 Patient Disposition: Home Health Service Discharge Diagnosis: Acute metabolic encephalopathy Referrals: feliciano de guzman [Other] - 1 Week Namita Acosta NP [Primary Care Provider] - 1 Week Discharge Medications: New nitrofurantoin monohyd/m-cryst [Macrobid] 100 mg capsule 100 mg PO BID Qty: 7 0RF Rx Instructions: must administer with a meal/food Continued omeprazole 40 mg capsule,delayed release(DR/EC) 40 mg PO DAILY@0630 methotrexate sodium 2.5 mg tablet 10 tab PO MO prednisone 1 mg tablet 4 tab PO DAILY levothyroxine 50 mcg tablet 50 mcg PO DAILY@0630 ergocalciferol (vitamin D2) 1,250 mcg (50,000 unit) capsule 1,250 mcg PO TH albuterol sulfate 90 mcg/actuation HFA aerosol inhaler 2 puff PO Q6H PRN (Reason: wheezing) bupropion HCl 300 mg tablet extended release 24 hr 300 mg PO DAILY duloxetine 60 mg capsule,delayed release(DR/EC) 60 mg PO DAILY ondansetron 4 mg tablet,disintegrating 4 mg PO Q8H PRN (Reason: nausea and vomiting) Qty: 10 0RF folic acid 1 mg tablet 1 mg PO DAILY atenolol 25 mg Tablet 25 mg PO DAILY Qty: 30 0RF Protocol: Hold for SBP/HR < HOLD for SBP < : 90 HOLD for HR < : 60 doxazosin 2 mg Tablet 2 mg PO BEDTIME Qty: 30 0RF Protocol: Hold for SBP< HOLD for SBP < : 90 furosemide 20 mg tablet 20 mg PO DAILY Qty: 30 0RF bupropion HCl 150 mg tablet extended release 24 hr 150 mg PO DAILY losartan 100 mg tablet 100 mg PO DAILY pregabalin 200 mg capsule 200 mg PO BID Incruse Ellipta 62.5 mcg/actuation blister with device 1 inh inhalation DAILY PRN (Reason: Shortness Of Breath) prednisone 5 mg tablet 5 - 10 mg PO DAILY PRN (Reason: arthritis flare) Discontinued oxycodone 20 mg tablet 20 mg PO Q4H Discharge Orders: Discharge Order (Routine); Ordered 12/11/23 Ordered By: Rogers Guillermo Diet: Advance to usual diet Activity on Discharge: As tolerated Stand Alone Forms: Patient Portal Discharge page Print Language: Azeri Care Plan Goals: Resume all medications as taken prior to hospital. Macrobid SR 100 mg twice daily for 7 days has been added for urinary tract infection Health Concerns: Change your oxycodone use to 20 mg every 6 hours. Follow up with PCP for further discussion about your chronic pain management Plan of Treatment: Resume all services as previous Assessment: See discharge summary
--- NOTE | 2023-12-11 12:10 | P.F2F_ITS ---
Service Date Service Date: 12/11/23 Encounter Date of encounter: 12/11/23 Encounter: Acute hospitalization Reasons for Services Signs and symptoms assessed: Dysuric symptoms presenting with metabolic encephalopathy. Ultimately UTI Reason for shelter: medication management and teach disease management Homebound: Leaving the home is medically contraindicated at this time without the asist of a device and/or another person due th the listed conditions above and below. Reason homebound: unsteady gait / fall risk and unable to drive Certification: Based on the above findings, I certify that this patient is confined to the home and needs intermittent shelter care, physical therapy and/or speech therapy, or continues to need occupational therapy. The patient is under my care, and I have initiated the establishment of the plan of care. The patient will be followed by a physician who will periodically review the plan of care. Time Spent With Patient Time: Total time managing care of this patient today ____ minutes.
[2023-12-11 13:30] VITALS: BP 150/88
== END 2023-12-11 13:36 | disposition home health service (06) | DRG 689 ==
LOC: HO.ED 13:48 → HO.EDOVER 18:36 → HO.S3 19:11
PROVIDERS: Nurse Practitioner Family; Admitting Provider Family Medicine; Emergency Provider Emergency Medicine; PCP Nurse Practitioner Adult Health; Visit Provider Hospitalist
DX: N39.0 Urinary tract infection, site not specified (principal); G92.8 Other toxic encephalopathy; F11.20 Opioid dependence, uncomplicated; Z16.12 Extended spectrum beta lactamase (ESBL) resistance; E03.9 Hypothyroidism, unspecified; M05.10 Rheumatoid lung disease with rheumatoid arthritis of unspecified site; M79.7 Fibromyalgia; B96.20 Unspecified Escherichia coli [E. coli] as the cause of diseases classified elsewhere; Z22.358 Carrier of other Enterobacterales; I10 Essential (primary) hypertension; J44.9 Chronic obstructive pulmonary disease, unspecified; Z99.3 Dependence on wheelchair; Z20.822 Contact with and (suspected) exposure to COVID-19; Z91.148 Patient's other noncompliance with medication regimen for other reason; Z87.440 Personal history of urinary (tract) infections; Z79.52 Long term (current) use of systemic steroids; Z79.631 Long term (current) use of antimetabolite agent; Z79.890 Hormone replacement therapy; Z79.899 Other long term (current) drug therapy
CPT/HCPCS: 0241U; 36415; 70450; 80053; 80307; 81001; 82140; 82607; 82746; 82947; 83605; 85025; 85027; 87040; 87086; 87088; 87186; 99285; J1335; J1650; J2185

== ENCOUNTER → 2023-12-08 18:26 | Outpatient (BNV) | payer MEDICARE, MEDICAID, SELFPAY | PROVIDERS: Admitting Provider Family Medicine; Emergency Provider Emergency Medicine; PCP Nurse Practitioner Adult Health; Visit Provider Internal Medicine | DX: G93.41 Metabolic encephalopathy (principal) | CPT/HCPCS: 99222 ==

== ENCOUNTER → 2023-12-08 18:26 | Outpatient (BNV) | payer MEDICARE, MEDICAID, SELFPAY | PROVIDERS: Admitting Provider Family Medicine; Emergency Provider Emergency Medicine; PCP Nurse Practitioner Adult Health; Visit Provider Family Medicine | DX: G93.41 Metabolic encephalopathy (principal) | CPT/HCPCS: 99223; 99232; 99239; G0180 ==

== ENCOUNTER 2024-02-19 00:04 | Inpatient (IN) | payer MEDICARE, MEDICAID, SELFPAY ==
[2024-02-19] VITALS (13 sets, daily range): BP systolic 129–173; BP diastolic 59–79; PULSE 68–80; RESP 16–20; TEMP 36.3–37.9; O2SAT 89–99; BMI 35.0
--- NOTE | ~2024-02-19 | US_ITS ---
EXAMINATION: US TRIPLEX LOWER EXTREMITY, LEFT CLINICAL INFORMATION: Left lower extremity edema and pain COMPARISON: None available. TECHNIQUE: Color-flow triplex imaging with spectral analysis and compression Doppler were performed on the left lower extremity. FINDINGS: Respiratory variation, normal compression and augmented flow are noted throughout the left lower extremity. The visualized common femoral vein, superficial femoral vein, profunda femoral vein, popliteal vein and midcalf peroneal and posterior tibial venous segments show no evidence of deep venous thrombosis. The contralateral right common femoral vein demonstrates normal respiratory variation. There is no White's cyst. US/US venous duplex LE LT IMPRESSION: No evidence of deep venous thrombosis involving the left lower extremity. Electronically signed by: Yadira Yeager MD 02/19/2024 02:40 PM [facility] [place]
--- NOTE | ~2024-02-19 | XR_ITS ---
EXAMINATION: XR TIBIA FIBULA 2 VIEWS LEFT, XR FEMUR 2 VIEWS LEFT CLINICAL INFORMATION: severe pain, unclear if trauma. COMPARISON: CT left knee 11/27/2023 TECHNIQUE: AP and lateral radiographs of left tibia/fibula; AP and lateral radiographs of the left femur FINDINGS: Left tibia/fibula: *Diffuse reticulation of the subcutaneous fat is present. No soft tissue emphysematous changes noted. Partial visualization is made of a total left knee arthroplasty. No fractures or acute appearing subluxation is noted. Left femur: Reticulation of the subcutaneous fat is noted adjacent to the distal femur. A total left knee prosthesis is noted. A minimally displaced fracture of the medial aspect of the right femoral condyle is noted and is new compared with CT of the left knee 11/27/2023. Additionally, lucency is noted along the margins of the tibial prosthesis which appears to demonstrate posterior angulation of the distal component new compared with 11/27/2023. This finding is suspicious for loosening. XR/XR femur LT 2V IMPRESSION: *Acute fracture of the medial aspect of the distal tibia adjacent to the medial condylar component of a total knee arthroplasty. This finding is new compared with 11/27/2023. *Loosening of the tibial component of a left total knee prosthesis. The tibial component demonstrates posterior angulation of the distal aspect of the tibial prosthesis with adjacent periprosthetic lucency. Findings are new compared with CT of the left knee 11/27/2023 is suspicious for loosening and subluxation compared with 11/27/2023. *Cutaneous edema/inflammatory changes adjacent to the left knee and within the left calf. Electronically signed by: Bjorn Lim MD 02/19/2024 02:11 AM [facility]
--- NOTE | ~2024-02-19 | CT_ITS ---
EXAMINATION: CT KNEE WITHOUT CONTRAST, LEFT CLINICAL INFORMATION: Fracture around prosthesis. COMPARISON: X-rays of the left knee 02/19/2024 1:[address] scan of the left knee 11/27/2023. TECHNIQUE: CT scan of the left knee is performed without contrast with reconstruction imaging performed at the acquisition workstation. This CT examination was performed using dose optimization techniques as appropriate, variously including the following: *Automated exposure control *Adjustment of mA and/or kV according to patient size (this includes techniques or standardized protocols for targeted exams where dose is matched to indication/reason for exam; i.e. extremities or head) *Use of iterative reconstruction technique DLP: 138 mGy-cm FINDINGS: Patient is status post left total knee arthroplasty. There is prominent beam hardening artifact as well as image-degrading motion artifact. Again noted is a minimally displaced fracture of the distal medial metaphysis of the femur involving the medial cortex and resulting in a medial displacement of the fragment by approximately 1.5 mm. The fracture originates approximately 5 cm proximal to the articular surface of the medial condyle and extends over approximately 1.5 cm craniocaudal. The distal end of the fracture is not well visualized in part because of a combination of motion artifact and metallic beam hardening artifact. The fracture extends up to 2.6 cm anterior to posterior. No additional fractures. No periprosthetic lucency surrounding the femoral component other than the aforementioned fracture. No lucency surrounding the tibial component. No fracture. There is a persistent prominent joint effusion with some scattered calcification/chondrocalcinosis throughout the joint, similar to prior. There are additional periarticular partially calcified masses/complex fluid collections abutting the posterior aspect of the femur in the popliteal fossa displacing the adjacent popliteal vessels as well as along the posterior medial aspect of the medial compartment of the knee and extending distal to the joint line. These are unchanged compared to prior CT November 2023. There is generalized fluidlike stranding in the subcutaneous soft tissues compatible with generalized edema. CT/CT knee LT wo IV con IMPRESSION: Minimally displaced subcortical/periprosthetic fracture of the medial metaphysis of the femur adjacent to the medial aspect of the femoral component. Prominent complex joint effusion partially calcified with similar-appearing density/complex fluid posterior and posterior medial to the knee joint, unchanged compared with the recent CT November 2023. 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 No evidence of osteolysis of the tibial component on CT. The questionable lucency on radiographs may be due to suboptimal projection. Consider dedicated repeat radiographs of the knee to further assess if felt clinically necessary. Electronically signed by: Jorge Multani MD 02/19/2024 10:17 AM [facility]
--- NOTE | ~2024-02-19 | XR_ITS ---
EXAMINATION: XR TIBIA FIBULA 2 VIEWS LEFT, XR FEMUR 2 VIEWS LEFT CLINICAL INFORMATION: severe pain, unclear if trauma. COMPARISON: CT left knee 11/27/2023 TECHNIQUE: AP and lateral radiographs of left tibia/fibula; AP and lateral radiographs of the left femur FINDINGS: Left tibia/fibula: *Diffuse reticulation of the subcutaneous fat is present. No soft tissue emphysematous changes noted. Partial visualization is made of a total left knee arthroplasty. No fractures or acute appearing subluxation is noted. Left femur: Reticulation of the subcutaneous fat is noted adjacent to the distal femur. A total left knee prosthesis is noted. A minimally displaced fracture of the medial aspect of the right femoral condyle is noted and is new compared with CT of the left knee 11/27/2023. Additionally, lucency is noted along the margins of the tibial prosthesis which appears to demonstrate posterior angulation of the distal component new compared with 11/27/2023. This finding is suspicious for loosening. XR/XR tibia fibula LT 2V IMPRESSION: *Acute fracture of the medial aspect of the distal tibia adjacent to the medial condylar component of a total knee arthroplasty. This finding is new compared with 11/27/2023. *Loosening of the tibial component of a left total knee prosthesis. The tibial component demonstrates posterior angulation of the distal aspect of the tibial prosthesis with adjacent periprosthetic lucency. Findings are new compared with CT of the left knee 11/27/2023 is suspicious for loosening and subluxation compared with 11/27/2023. *Cutaneous edema/inflammatory changes adjacent to the left knee and within the left calf. Electronically signed by: Bjorn Lim MD 02/19/2024 02:11 AM [facility]
--- NOTE | 2024-02-19 00:51 | ED.GENADULT ---
HPI - General Adult General Chief complaint: Fall Stated complaint: Fall , knee pain + ccollar no thinners Time Seen by Provider: 02/19/24 00:48 History of Present Illness ED Provider: Roxy NAVARRETE narrative: The patient is a 74-year-old female who has a history of rheumatoid arthritis. She also reports having had a right leg fracture at 1 point which could not be operated on. She is therefore quite disabled and gets around her apartment with an electric wheelchair. She says that normally she is able to stand and pivot to change positions or get into her wheelchair. She comes to the emergency room today because she has had pain in her left leg for the last 2 days. Paramedics stated that the patient's left knee had ?given out? when attempting to transfer position. The patient says that her left leg has been bothering her for 2 days. She says that there was no initial injury related to the new pain in her left leg. However the pain is now worse after falling. She says she did not hit her head. She does not have any neck pain. Related Data Home Medications ?Medication ?Instructions ?Recorded ?Confirmed albuterol sulfate 90 mcg/actuation 2 puff PO Q6H PRN wheezing 08/23/21 12/08/23 aerosol inhaler bupropion HCl 300 mg 24 hr tablet, 300 mg PO DAILY 08/23/21 12/08/23 extended release duloxetine 60 mg capsule,delayed 60 mg PO DAILY 08/23/21 12/08/23 release ergocalciferol (vitamin D2) 1,250 1,250 mcg PO TH 08/23/21 12/08/23 mcg (50,000 unit) capsule levothyroxine 50 mcg tablet 50 mcg PO DAILY@62908/23/21 12/08/23 methotrexate sodium 2.5 mg tablet 10 tab PO MO 08/23/21 12/08/23 omeprazole 40 mg capsule,delayed 40 mg PO DAILY@62908/23/21 12/08/23 release prednisone 1 mg tablet 4 tab PO DAILY 08/23/21 12/08/23 prednisone 5 mg tablet 5 - 10 mg PO DAILY PRN arthritis 02/16/22 12/08/23 flare pregabalin 200 mg capsule 200 mg PO BID 01/07/23 12/08/23 umeclidinium 62.5 mcg/actuation 1 inh inhalation DAILY PRN 01/07/23 12/08/23 blister powder for inhalation Shortness Of Breath (Incruse Ellipta) folic acid 1 mg tablet 1 mg PO DAILY 10/13/23 12/08/23 bupropion HCl 150 mg 24 hr tablet, 150 mg PO DAILY 11/25/23 12/08/23 extended release losartan 100 mg tablet 100 mg PO DAILY 12/08/23 oxycodone 20 mg tablet 1 mg PO 02/19/24 Previous Rx's ?Medication ?Instructions ?Recorded ondansetron 4 mg disintegrating 4 mg PO Q8H PRN nausea and 08/02/23 tablet vomiting #10 tabs atenolol 25 mg tablet 25 mg PO DAILY #30 tabs 10/17/23 doxazosin 2 mg tablet 2 mg PO BEDTIME #30 tabs 10/17/23 furosemide 20 mg tablet 20 mg PO DAILY #30 tabs 10/17/23 nitrofurantoin 100 mg PO BID #7 caps 12/11/23 monohydrate/macrocrystals 100 mg capsule (Macrobid) Allergies Allergy/AdvReac Type Severity Reaction Status Date / Time lisinopril [LISINOPRIL] Allergy Severe ANAPHYLAXIS Verified 02/19/24 00:16 Sulfa (Sulfonamide Allergy Intermediate RASH Verified 02/19/24 00:16 Antibiotics) [SULFA (SULFONAMIDE ANTIBIOTICS)] tramadol [TRAMADOL] Allergy Intermediate RASH Verified 02/19/24 00:16 Jdhxvtx-HYO-NlE Reductase Allergy Rash Verified 02/19/24 00:16 Inhibitor [Ytseihy-Qft-Ozc Reductase Inhibitor] hydrochlorothiazide [HCTZ] AdvReac Unknown ABNORMAL Verified 02/19/24 00:16 LABS? Review of Systems Review of Systems: Yes all other systems are reviewed and are negative [facility] Past Medical History Medical History History of ESBL E. coli infection Osteomyelitis COPD (chronic obstructive pulmonary disease) Rheumatoid lung Hypothyroidism Congestive heart failure Fibromyalgia HTN (hypertension) Depression Rheumatoid arthritis Surgical History Hx of prior ablation treatment Knee joint replacement status Family History Family History Father No problems noted. Other Heart disease Social History Social History Household Members: None Household Members Other:: 0 Housing: Apartment Unable to assess alcohol history related to: Unknown Alcohol intake: never Patient Tobacco Use Status: Former Tobacco user Smoked in Last 30 Days: Yes Use of substances other than those prescribed or required for medical reasons: No Advance Directives: No Advance Directives Information Provided: Yes service: No Physical Exam ED Vital Signs: Vital Signs - 24 hr 02/19/24 00:12 02/19/24 00:39 02/19/24 02:47 Temperature 98.1 F Pulse Rate 71 71 Respiratory Rate 18 20 18 Blood Pressure 150/77 H 150/77 H Pulse Oximetry 98 Oxygen Delivery Method Room Air Oxygen Flow Rate 02/19/24 03:27 02/19/24 06:36 02/19/24 07:33 Temperature 97.8 F 98.1 F Pulse Rate 72 71 Respiratory Rate 18 20 17 Blood Pressure 163/59 H 134/64 Pulse Oximetry 96 96 Oxygen Delivery Method Room Air Room Air Oxygen Flow Rate 02/19/24 08:14 02/19/24 08:31 Temperature 100.3 F Pulse Rate 70 68 Respiratory Rate 18 16 Blood Pressure 153/70 H Pulse Oximetry 97 98 Oxygen Delivery Method Nasal Cannula Nasal Cannula Oxygen Flow Rate 2 2 BMI result Body Mass Index 35.0 Const Other: The patient is a chronically ill-appearing 74-year-old. She was lying on her left side because it was the position of comfort. She seemed distracted by discomfort. However when addressed very directly she could answer questions in a coherent manner. HENNH Other: Face is symmetrical. Mucous membranes moist. Eyes Other: Pupils are round equal, conjunctivae clear Neck Other: No posterior midline C-spine tenderness. Excellent range of motion of the neck without pain. C-spine is clinically clear. Neck: Yes full ROM and Yes JVD Resp Effort & Inspection: normal respiratory effort Auscultation: clear to auscultation bilaterally Cardio Rate: regular rate Rhythm: regular rhythm Heart sounds: S1 normal heart sound present and S2 normal heart sound present GI Other: The abdomen was soft and nontender Skin Other: There seemed to be some generalized swelling to the skin of the left leg. This did not seem obviously centered around the left knee. The skin was intact. Neuro Other: The patient was awake but seemed to be having a great deal of pain. This made it difficult to speak with her but when addressed very directly she answered coherently. Cranial nerves were intact. She moves her arms and her right leg normally. Left leg movement was limited by pain. Extrem Other: The patient has generalized swelling to the left leg. There seemed to be tenderness throughout the leg and it was difficult to determine exactly where the maximal tenderness was but it seemed to be mostly around the knee. Medications Administered Discontinued Medications Generic Name Dose Route Start Last Admin Trade Name Samia PRN Reason Stop Dose Admin Acetaminophen 650 mg 02/19/24 08:38 02/19/24 09:03 Acetaminophen 325 Mg Tablet PO 02/19/24 08:39 650 mg ONCE ONE Administration Ceftriaxone Sodium 1 gm 02/19/24 08:19 02/19/24 09:03 Ceftriaxone Sodium 1 Gm Vial IVPUSH 02/19/24 08:20 1 gm ONCE ONE Administration Hydromorphone HCl 1 mg 02/19/24 01:04 02/19/24 01:08 Hydromorphone Hcl 1 Mg/Ml Syringe IVPUSH 02/19/24 01:05 1 mg ONCE ONE Administration Protocol Hydromorphone HCl 1 mg 02/19/24 02:39 02/19/24 02:47 Hydromorphone Hcl 1 Mg/Ml Syringe IVPUSH 02/19/24 02:40 1 mg ONCE ONE Administration Protocol Hydromorphone HCl 1 mg 02/19/24 07:09 02/19/24 07:33 Hydromorphone Hcl 1 Mg/Ml Syringe IVPUSH 02/19/24 07:10 1 mg ONCE ONE Administration Protocol Medical Decision Making Medical Decision Making [facility] Narrative: The patient is a 74-year-old woman with a history of rheumatoid arthritis. She has a history of a left knee replacement that may be as many as 2 decades old. She had an original surgery at [facility] about 20 years ago and then a revision in 2011 also at [facility]. The patient apparently has a history of a right knee fracture that could not be operated on and so her left leg has been her good leg recently. She lives alone. Some how she manages to get around living on her own with a wheelchair. She says she has been able to stand and pivot. She says that she had spontaneous left knee pain starting 2 days ago. Tonight the left leg buckled and she fell. She did not hit her head. The pain in the left knee is now much worse. Since on exam it was difficult to tell whether the pain was definitely related to the knee or whether she might have had a femur fracture I obtained x-rays of the left femur and the tibia and fibula. This shows fractures around the prosthetic left knee. The patient normally takes oxycodone at home for chronic pains. She was given IV hydromorphone for pain here. Given the patient has multiple medical problems and general disability was difficult to know whether the new fracture around the prosthetic might be reparable. I contacted Orthopedics who requested a CT of the knee. While in the emergency department the the patient received a few doses of hydromorphone. She developed some degree of confusion which the patient was able to say was often associated with a UTI. A rectal temperature was done which was 100.3. At that time we obtained a catheterized urine sample which was strongly suggestive of UTI. Blood cultures and a lactate were obtained and she was started on ceftriaxone. I believe the patient has developed a metabolic encephalopathy. Whether this is more related to hydromorphone or urinary tract infection is difficult to distinguish. In any event I think the patient will need to be treated for UTI and admitted to the hospitalist service. I will also order an ultrasound of the left leg. Lab Data 02/19/24 01:13 02/19/24 01:13 Labs: Lab Results 02/19/24 02/19/24 02/19/24 Range/Units 01:13 01:17 08:12 WBC 8.3 (4.8-10.8) X10*3/uL RBC 4.39 (4.20-5.50) X10*6/uL Hgb 13.4 (12.0-16.0) g/dl Hct 39.9 (37.0-47.0) % MCV 90.9 (80.0-98.0) fL MCH 30.5 (27.0-33.0) pg MCHC 33.6 (31.0-35.0) g/dl RDW 15.1 (11.0-16.0) % Plt Count 169 (160-400) X10*3/uL MPV 9.3 L (9.4-12.3) fL Immature Gran % (Auto) 1.1 H (0.0-0.4) % Neut % (Auto) 68.2 (45-73) % Lymph % (Auto) 17.3 L (20-40) % [place] % (Auto) 11.8 H (2-11) % Eos % (Auto) 1.2 (0-4) % Baso % (Auto) 0.4 (0-2) % Lymph # (Auto) 1.4 (1.2-4.9) X10*3/uL [place] # (Auto) 1.0 (0.1-1.2) X10*3/uL Eos # (Auto) 0.1 (0.0-0.4) X10*3/uL Baso # (Auto) 0.0 (0.0-0.2) X10*3/uL Abs Immat Gran (auto) 0.09 H (0.00-0.03) X10*3/uL Absolute Neuts (auto) 5.7 (2.0-8.3) x10*3/uL Absolute Nucleated RBC 0.000 (0.0-0.012) X10*3/uL Nucleated RBC % (auto) 0.0 (0.0-0.2) /100WBC VBG pH 7.41 (7.32-7.43) VBG pCO2 45 mmHg VBG pO2 57 mmHg VBG HCO3 29 H (22-26) mmol/L VBG O2 Saturation 86.0 % VBG Base Excess 3.8 mmol/L Sodium 140 (135-145) mmol/L Potassium 3.9 (3.3-5.1) mmol/L Chloride 104 (96-108) mmol/L Carbon Dioxide 24 (22-29) mmol/L Anion Gap 16 (12-20) BUN 16 (9-16) mg/dL Creatinine 1.21 (0.5-1.4) mg/dL Estim Creat Clear Calc 51.4 Estimated GFR 44 Random Glucose 86 (60-115) mg/dL Lactic Acid (0.5-2.0) mmol/L Calcium 9.6 (8.4-10.2) mg/dL Magnesium 2.3 (1.6-2.6) mg/dL Total Bilirubin 0.4 (0.0-1.0) mg/dL AST 20 (5-31) U/L ALT 11 (0-31) U/L Alkaline Phosphatase 106 (39-117) U/L Total Creatine Kinase 38 (26-140) U/L Troponin I High Sens 5.5 D (<3.5-17.0) ng/L Total Protein 7.6 (6.5-8.0) g/dL Albumin 3.7 (3.5-5.0) g/dL Urine Color Yellow Urine Appearance Turbid Urine pH 7.5 (5.0-9.0) Ur Specific [place] 1.015 (1.005-1.025) Urine Protein 30 (1+) H (Neg-Trace) mg/dL Urine Glucose (UA) Negative (Negative) mg/dL Urine Ketones Negative (Negative) mg/dL Urine Blood Moderate (2+) H (Negative) Urine Nitrite Negative (Negative) Ur Leukocyte Esterase Large (3+) H (Negative) Urine RBC 6-10 H (0-2) /HPF Urine WBC >50 H (0-5) /HPF Ur Squamous Epith Cells 0-2 (0-2) /HPF Urine Bacteria 4+ (None Seen) Hyaline Casts 0-2 (0-2) /LPF 02/19/24 Range/Units 08:35 WBC (4.8-10.8) X10*3/uL RBC (4.20-5.50) X10*6/uL Hgb (12.0-16.0) g/dl Hct (37.0-47.0) % MCV (80.0-98.0) fL MCH (27.0-33.0) pg MCHC (31.0-35.0) g/dl RDW (11.0-16.0) % Plt Count (160-400) X10*3/uL MPV (9.4-12.3) fL Immature Gran % (Auto) (0.0-0.4) % Neut % (Auto) (45-73) % Lymph % (Auto) (20-40) % [place] % (Auto) (2-11) % Eos % (Auto) (0-4) % Baso % (Auto) (0-2) % Lymph # (Auto) (1.2-4.9) X10*3/uL [place] # (Auto) (0.1-1.2) X10*3/uL Eos # (Auto) (0.0-0.4) X10*3/uL Baso # (Auto) (0.0-0.2) X10*3/uL Abs Immat Gran (auto) (0.00-0.03) X10*3/uL Absolute Neuts (auto) (2.0-8.3) x10*3/uL Absolute Nucleated RBC (0.0-0.012) X10*3/uL Nucleated RBC % (auto) (0.0-0.2) /100WBC VBG pH (7.32-7.43) VBG pCO2 mmHg VBG pO2 mmHg VBG HCO3 (22-26) mmol/L VBG O2 Saturation % VBG Base Excess mmol/L Sodium (135-145) mmol/L Potassium (3.3-5.1) mmol/L Chloride (96-108) mmol/L Carbon Dioxide (22-29) mmol/L Anion Gap (12-20) BUN (9-16) mg/dL Creatinine (0.5-1.4) mg/dL Estim Creat Clear Calc Estimated GFR Random Glucose (60-115) mg/dL Lactic Acid 1.1 (0.5-2.0) mmol/L Calcium (8.4-10.2) mg/dL Magnesium (1.6-2.6) mg/dL Total Bilirubin (0.0-1.0) mg/dL AST (5-31) U/L ALT (0-31) U/L Alkaline Phosphatase (39-117) U/L Total Creatine Kinase (26-140) U/L Troponin I High Sens (<3.5-17.0) ng/L Total Protein (6.5-8.0) g/dL Albumin (3.5-5.0) g/dL Urine Color Urine Appearance Urine pH (5.0-9.0) Ur Specific [place] (1.005-1.025) Urine Protein (Neg-Trace) mg/dL Urine Glucose (UA) (Negative) mg/dL Urine Ketones (Negative) mg/dL Urine Blood (Negative) Urine Nitrite (Negative) Ur Leukocyte Esterase (Negative) Urine RBC (0-2) /HPF Urine WBC (0-5) /HPF Ur Squamous Epith Cells (0-2) /HPF Urine Bacteria (None Seen) Hyaline Casts (0-2) /LPF Critical Care Time Critical Care Time Critical Care Time: Yes Total Critical Care Time: 35 Attestation: The patient was critically ill with a high probability of imminent or life-threatening deterioration. ?I spent greater than 30 minutes of discontinuous time evaluating the patient, delivering critical care at the bedside, discussing evaluating data with consultants. ?Critical care time does not include time spent performing separately billable procedures or teaching. ?Time spent performing critical care with 35 minutes. Discharge Plan Discharge Clinical Impression: Urinary tract infection with fever, Acute metabolic encephalopathy, Periprosthetic fracture around internal prosthetic left knee joint Patient Disposition: Admitted As Inpatient Print Language: [place]
[2024-02-19] MEDS: HYDROmorphone HCl 1 MG/ML SYRINGE IVPUSH ×3 (01:08→07:33)
[2024-02-19 01:16] LABS: Venous Blood Gas Refer to POC result
--- NOTE | 2024-02-19 01:16 | PC.NURSE ---
Pt medicated per mar Pt placed on purewick. Plan of care ongoing.
[2024-02-19 01:17] LABS: Basophils Percent Auto 0.4 % (0-2); Eosinophils Absolute Auto 0.1 X10*3/uL (0.0-0.4); Eosinophils Percent Auto 1.2 % (0-4); Hematocrit 39.9 % (37.0-47.0); Hemoglobin 13.4 g/dl (12.0-16.0); Imm Gran Abs Auto 0.09 X10*3/uL (0.00-0.03); Imm Gran Pct Auto 1.1 % (0.0-0.4); Lymphocytes Absolute Auto 1.4 X10*3/uL (1.2-4.9); Lymphocytes Percent Auto 17.3 % (20-40); MANUAL DIFF FLAG NO; Mean Corpuscular HGB Conc 33.6 g/dl (31.0-35.0); Mean Corpuscular Hemoglobin 30.5 pg (27.0-33.0); Mean Corpuscular Volume 90.9 fL (80.0-98.0); Mean Platelet Volume 9.3 fL (9.4-12.3); Monocytes Percent Auto 11.8 % (2-11); Neutrophils Absolute Auto 5.7 x10*3/uL (2.0-8.3); Neutrophils Percent Auto 68.2 % (45-73); Platelet Count 169 X10*3/uL (160-400); Red Blood Count 4.39 X10*6/uL (4.20-5.50); Red Cell Distribution Width 15.1 % (11.0-16.0); White Blood Count 8.3 X10*3/uL (4.8-10.8)
[2024-02-19 01:22] LABS: VBG Base Excess 3.8 mmol/L; VBG HCO3 29 mmol/L (22-26); VBG pCO2 45 mmHg; VBG pH 7.41 (7.32-7.43); VBG pO2 57 mmHg
[2024-02-19 01:33] LABS: Alanine Aminotransferase 11 U/L (0-31); Albumin Level 3.7 g/dL (3.5-5.0); Alkaline Phosphatase 106 U/L (39-117); Anion Gap 16 (12-20); Aspartate Amino Transferase 20 U/L (5-31); Bilirubin Total 0.4 mg/dL (0.0-1.0); Blood Urea Nitrogen 16 mg/dL (9-16); Calcium 9.6 mg/dL (8.4-10.2); Carbon Dioxide 24 mmol/L (22-29); Chloride 104 mmol/L (96-108); Creatinine Clr Calc Pharmacy 51.4; Estimated Glomerular Filt Rate 44; Glucose Random 86 mg/dL (60-115); Magnesium 2.3 mg/dL (1.6-2.6); Potassium 3.9 mmol/L (3.3-5.1); Sodium 140 mmol/L (135-145); Total Protein 7.6 g/dL (6.5-8.0)
[2024-02-19 01:40] LABS: Troponin-I High Sensitivity 5.5 ng/L (<3.5-17.0)
--- NOTE | 2024-02-19 02:52 | PC.NURSE ---
Pt medicated per may Pt requested and given drink, channel changed, and a warm blanket Plan of care ongoing.
--- NOTE | 2024-02-19 07:48 | PC.NURSE ---
Order from MD to straight cath pt for clean urine due to pt hallucinating. Pt reports she knows she is hallucinating and that happens when she gets UTIs
--- NOTE | 2024-02-19 08:15 | PC.NURSE ---
Straight cath with no issues, 400 mL urine output of cloudy foul urine. Rectal temp 100.3
[2024-02-19 08:21] LABS: Appearance Urine Turbid; Color Urine Yellow; Glucose Urine UA Negative (Negative); Leukocyte Esterase Urine Large (3+) (Negative); Nitrite Urine Negative (Negative); PH 7.5 (5.0-9.0); Specific Gravity - Urine 1.015 (1.005-1.025); UMIC TRIGGER UACC YES; Urine Blood Moderate (2+) (Negative); Urine Ketones Negative (Negative); Urine Protein 30 (1+) mg/dL (Neg-Trace)
--- NOTE | 2024-02-19 08:27 | PC.NURSE ---
Provider notified of pts updated condition, orders placed. Pts daughter called Susy: [phone], wants her number on file
[2024-02-19 08:30] LABS: Bacteria Urine 4+ (None Seen); Hyaline Casts Urine 0-2 /LPF (0-2); Squamous Epithelial Cell Urine 0-2 /HPF (0-2); UACC Culture Trigger YES; WBC Urine >50 /HPF (0-5)
[2024-02-19 08:58] LABS: Lactic Acid 1.1 mmol/L (0.5-2.0)
[2024-02-19] MEDS: cefTRIAXone sodium 1 GM VIAL IVPUSH (09:03)
[2024-02-19] MEDS: Acetaminophen 325 MG TABLET 650 MG PO (09:03)
--- NOTE | 2024-02-19 09:21 | PM.IMHP ---
History of Present Illness Date of Service: 02/19/24 Chief Complaint: Fever and altered mental status 74yo F with HTN, COPD, RA on prednisone + MTX, hypothyroidism, mood disorder, chronic R tibial plateau fracture with TKA, fibromyalgia, and recurrent hx ESBL UTI last discharged from the hospital on 12/10/22 after 3 days stay for UTI and metabolic encephalopathy. She presents to the ED following a fall. She is wheelchair bound but able to independently transfer. Last evening while attempting to transfer, her knee gave out and she landed on the floor for about an hour. She has been having pain in the left knee and left shoulder for 2 days and has been taking oxycodone. Xray show an acute fracture of the medial aspect of the distal tibia adjacent to the medial condylar component of a total knee arthroplasty and Loosening of the tibial component of a left total knee prosthesis She has been given IV dilaudid following which she was confused, and had a temp of 100. and she reports that she gets confused with UTIs, UA is positive for UTI, she is giving ceftriaxone. Review of Systems Review of Systems: Gen: +fever Resp: no sob, no cough CV: no chest, no SMAANIEGO, no leg edema GI: No n/v, no abd pain Neuro: + confusion Yes all other systems are reviewed and are negative [facility] Medical History (Updated 02/23/24 @ 22:08 by Gege Jesus MD) Bacteriuria Urinary tract infection due to extended-spectrum beta lactamase (ESBL) producing Escherichia coli History of ESBL E. coli infection Osteomyelitis COPD (chronic obstructive pulmonary disease) Rheumatoid lung Hypothyroidism Congestive heart failure Fibromyalgia HTN (hypertension) Depression Rheumatoid arthritis Family History Father No problems noted. Other Heart disease Surgical History Hx of prior ablation treatment Knee joint replacement status Social History Household Members: None Household Members Other:: 0 Housing: Apartment Do you presently have visiting nurse or other home services: Yes ([employer] assistance with cleaning, cooking, shopping daily) Unable to assess alcohol history related to: Unknown Alcohol intake: never Patient Tobacco Use Status: Former Tobacco user Tobacco use type: Cigarette Smoked in Last 30 Days: No e-Cigarette/Vaping Use: Never Used Patient Interested in Nicotine Replacement: No Patient Given Instructions on How to Stop Smoking: No Second Hand Smoke Exposure: No Use of substances other than those prescribed or required for medical reasons: No Currently Displaying Signs/Symptoms of Drug Intoxication Withdrawal: No Have you been hit, kicked, punched, or otherwise hurt by someone within the past year? If so, by whom?: No Do you feel safe in your current relationship?: Yes Is there a partner from a previous relationship who is making you feel unsafe now?: No Are you made to feel afraid or neglected: No Advance Directives: No Advance Directives Information Provided: Yes Do you have a plan to hurt others: No Plan Recently lost weight without trying: No Eating poorly because of decreased appetite: No Nutrition Risks: No Nutritional Risk Patient : No : No Poor oral hygiene: No service: No Meds Allergies Allergy/AdvReac Type Severity Reaction Status Date / Time lisinopril [LISINOPRIL] Allergy Severe ANAPHYLAXIS Verified 02/19/24 00:16 Sulfa (Sulfonamide Allergy Intermediate RASH Verified 02/19/24 00:16 Antibiotics) [SULFA (SULFONAMIDE ANTIBIOTICS)] tramadol [TRAMADOL] Allergy Intermediate RASH Verified 02/19/24 00:16 Cuydlpr-IHY-HuK Reductase Allergy Rash Verified 02/19/24 00:16 Inhibitor [Xtqzaqb-Zyc-Rpa Reductase Inhibitor] hydrochlorothiazide [HCTZ] AdvReac Unknown ABNORMAL Verified 02/19/24 00:16 LABS? Home Medications ?Medication ?Instructions ?Recorded ?Confirmed ?Last Taken ?Type albuterol sulfate 90 mcg/actuation 2 puff PO Q6H PRN wheezing 08/23/21 02/19/24 11/24/23 12:00 History aerosol inhaler bupropion HCl 300 mg 24 hr tablet, 300 mg PO DAILY 08/23/21 02/19/24 02/18/24 History extended release duloxetine 60 mg capsule,delayed 60 mg PO DAILY 08/23/21 02/19/24 02/18/24 History release ergocalciferol (vitamin D2) 1,250 1,250 mcg PO MO 08/23/21 02/19/24 02/12/24 History mcg (50,000 unit) capsule levothyroxine 50 mcg tablet 50 mcg PO DAILY@0630 08/23/21/25/24 11/24/24 History methotrexate sodium 2.5 mg tablet 10 tab PO MO 08/23/21 02/19/24 02/18/24 History omeprazole 40 mg capsule,delayed 40 mg PO DAILY@62908/23/21 02/19/24 02/18/24 History release prednisone 1 mg tablet 4 tab PO DAILY 08/23/21 02/19/24 02/18/24 History prednisone 5 mg tablet 5 - 10 mg PO DAILY PRN arthritis 02/16/22 02/19/24 11/24/23 12:00 History flare pregabalin 200 mg capsule 200 mg PO BID 01/07/23 02/19/24 02/18/24 History folic acid 1 mg tablet 1 mg PO DAILY 10/13/23 02/19/24 02/18/24 History bupropion HCl 150 mg 24 hr tablet, 150 mg PO DAILY 11/25/23 02/19/24 02/18/24 History extended release oxycodone 20 mg tablet 20 mg PO Q6H 02/19/24 02/19/24 02/18/24 History Physical Exam Vital Signs and Narrative: Vital Signs: Last Vital Signs Temp 100.3 F 02/19/24 08:14 Pulse 68 02/19/24 08:31 Resp 16 02/19/24 08:31 BP 153/70 H 02/19/24 08:31 Pulse Ox 98 02/19/24 08:31 O2 Del Method Nasal Cannula 02/19/24 08:31 O2 Flow Rate 2 02/19/24 08:31 BMI result Body Mass Index 35.0 Const: Other: Constitutional: Alert, in no distress, overweight. Mental Status: Oriented to person, place and time. Eyes: Pupils are equal, round and reactive to light. Ear, Nose and Throat: Oropharynx clear, mucous membranes moist. Ears and nose without eformities. Trachea midline. Respiratory: Clear to auscultation. No wheezing, rales or rhonchi. Cardiovascular: S1 S2 regular. No murmurs, rubs or gallops. Gastrointestinal: Abdomen soft, non-tender, non-distended. Normal bowel sounds.? Neurologic: Cranial nerves II-XII grossly intact. No focal neurological deficits. Moves all extremities spontaneously.? Skin: No rashes or lesions.? Musculoskeletal: No cyanosis or clubbing. Psychiatric: Normal mood and affect? Results Labs 02/19/24 01:13 02/19/24 01:13 Labs: Laboratory Results - last 24 hr 02/19/24 02/19/24 02/19/24 01:13 01:17 08:12 MCV 90.9 MCH 30.5 MCHC 33.6 RDW 15.1 Plt Count 169 MPV 9.3 L Immature Gran % (Auto) 1.1 H Neut % (Auto) 68.2 Lymph % (Auto) 17.3 L [place] % (Auto) 11.8 H Eos % (Auto) 1.2 Baso % (Auto) 0.4 Lymph # (Auto) 1.4 [place] # (Auto) 1.0 Eos # (Auto) 0.1 Baso # (Auto) 0.0 Abs Immat Gran (auto) 0.09 H Absolute Neuts (auto) 5.7 Absolute Nucleated RBC 0.000 Nucleated RBC % (auto) 0.0 VBG pH 7.41 VBG pCO2 45 VBG pO2 57 VBG HCO3 29 H VBG O2 Saturation 86.0 VBG Base Excess 3.8 Anion Gap 16 Estim Creat Clear Calc 51.4 Estimated GFR 44 Random Glucose 86 Lactic Acid Calcium 9.6 Magnesium 2.3 Total Bilirubin 0.4 AST 20 ALT 11 Alkaline Phosphatase 106 Total Creatine Kinase 38 Troponin I High Sens 5.5 D Total Protein 7.6 Albumin 3.7 Urine Color Yellow Urine Appearance Turbid Urine pH 7.5 Ur Specific [place] 1.015 Urine Protein 30 (1+) H Urine Glucose (UA) Negative Urine Ketones Negative Urine Blood Moderate (2+) H Urine Nitrite Negative Ur Leukocyte Esterase Large (3+) H Urine RBC 6-10 H Urine WBC >50 H Ur Squamous Epith Cells 0-2 Urine Bacteria 4+ Hyaline Casts 0-2 02/19/24 08:35 MCV MCH MCHC RDW Plt Count MPV Immature Gran % (Auto) Neut % (Auto) Lymph % (Auto) [place] % (Auto) Eos % (Auto) Baso % (Auto) Lymph # (Auto) [place] # (Auto) Eos # (Auto) Baso # (Auto) Abs Immat Gran (auto) Absolute Neuts (auto) Absolute Nucleated RBC Nucleated RBC % (auto) VBG pH VBG pCO2 VBG pO2 VBG HCO3 VBG O2 Saturation VBG Base Excess Anion Gap Estim Creat Clear Calc Estimated GFR Random Glucose Lactic Acid 1.1 Calcium Magnesium Total Bilirubin AST ALT Alkaline Phosphatase Total Creatine Kinase Troponin I High Sens Total Protein Albumin Urine Color Urine Appearance Urine pH Ur Specific [place] Urine Protein Urine Glucose (UA) Urine Ketones Urine Blood Urine Nitrite Ur Leukocyte Esterase Urine RBC Urine WBC Ur Squamous Epith Cells Urine Bacteria Hyaline Casts Imaging Radiologist's Impressions: Impressions Tibia/Fibula X-Ray 02/19/24 01:02 IMPRESSION: *Acute fracture of the medial aspect of the distal tibia adjacent to the medial condylar component of a total knee arthroplasty. This finding is new compared with 11/27/2023. *Loosening of the tibial component of a left total knee prosthesis. The tibial component demonstrates posterior angulation of the distal aspect of the tibial prosthesis with adjacent periprosthetic lucency. Findings are new compared with CT of the left knee 11/27/2023 is suspicious for loosening and subluxation compared with 11/27/2023. *Cutaneous edema/inflammatory changes adjacent to the left knee and within the left calf. Electronically signed by: Bjorn Lim MD 02/19/2024 02:11 AM [place] RP Femur X-Ray 02/19/24 01:30 IMPRESSION: *Acute fracture of the medial aspect of the distal tibia adjacent to the medial condylar component of a total knee arthroplasty. This finding is new compared with 11/27/2023. *Loosening of the tibial component of a left total knee prosthesis. The tibial component demonstrates posterior angulation of the distal aspect of the tibial prosthesis with adjacent periprosthetic lucency. Findings are new compared with CT of the left knee 11/27/2023 is suspicious for loosening and subluxation compared with 11/27/2023. *Cutaneous edema/inflammatory changes adjacent to the left knee and within the left calf. Electronically signed by: Bjorn Lim MD 02/19/2024 02:11 AM [facility] RP Assessment and Plan (1) Urinary tract infection: Qualifiers: Hematuria presence: without hematuria Urinary tract infection type: site unspecified Qualified Code(s): N39.0 - Urinary tract infection, site not specified Status: Acute (2) Acute metabolic encephalopathy: Status: Acute Plan 74/F w/ HTN, COPD, rheumatoid arthritis (RA), hypothyroidism (HypoT), GERD, fibromyalgia, ESBL UTI, and mood disorder?who presents with fall and found to have tibia plateau fracture and and UTI Acute UTI, h/o ESBL E.coli, usually associated with confusion -ertapenema while waiting for sensitivity Tibia plateu fracture -ortho consult -pain control HTN -Continue atenolol, losartan, doxazosin COPD--no acute exacerbation -Continue home inhalers Chronic lower leg edema -Continue Lasix RA -methotrexate, prednisone HypoT -Continue levothyroxine (LT4) Mood disorder - bupropion, duloxetine Full Code DVT Prophylaxis: Lovenox need for inpt: IV Abx for resitan UTI and evaluation of tibia plateau fracture, she lives alone and cannot manage at this time and will likely need STR, will need PT eval once cleared by ortho Quality Stroke Does the patient have a stroke diagnosis?: No VTE Prior VTE?: No VTE Risk Level:: Medical - moderate - high VTE Device Contraindication: Treatment Not Indicated VTE Drug Contraindication: N/A - Med Ordered
--- NOTE | 2024-02-19 09:45 | ECG_ITS ---
Test Reason : AMS Blood Pressure : / mmHG Vent. Rate : 070 BPM Atrial Rate : 070 BPM P-R Int : 130 ms QRS Dur : 084 ms QT Int : 410 ms P-R-T Axes : 049 006 046 degrees QTc Int : 442 ms Normal sinus rhythm Minimal voltage criteria for LVH, may be normal variant ( R in aVL ) Borderline ECG When compared with ECG of 13-OCT-2023 11:56, No significant changes seen Referred By: Josh Ramsey Electronically Signed By:KOSTAS MARTELL
--- NOTE | 2024-02-19 10:38 | PHA.MEDREC ---
Addendum entered by Jose Schilling 02/19/24 11:01: reviewed Original Note: Pharmacy Consult ? Medication Reconciliation Pharmacy has completed the medication reconciliation. Spoke with patient and she confirmed her medications. She confirmed she is taking her Vitamin D2 1250mcg and Methotrexate 10mg tabs on Mondays and states she took the Vitamin D2 tab last Sunday 02/11 and states she took her Methotrexate 10mg tab yesterday 02/17 along with all her other medications. She confirmed she is still taking Duloxetine 60mg tabs and states she has an overabundance of that medication at home and has been taking it once daily. She confirmed her Oxycodone 20mg tab and states she takes 1 tab every 6 hours and she last took that last night. She confirmed she is taking a Prednisone 1mg regimen taking 4 tabs daily which she took yesterday and a Prednisone 5mg regimen taking 1-2 tabs as needed for Arthritis Flare ups. She claims she filling at [facility] on [facility] in [place] right now.
[2024-02-19] MEDS: Meropenem 1 GM VIAL IVPUSH ×2 (10:49→23:11)
[2024-02-19] MEDS: Enoxaparin Sodium 40 MG/0.4 ML SYRINGE SUBCUT (10:51)
[2024-02-19] MEDS: Morphine Sulfate 4 MG/ML CARTRIDGE 2 MG IVPUSH ×2 (11:35→19:47)
--- NOTE | 2024-02-19 13:06 | PM.CNOR ---
History of Present Illness HPI Consult date: 02/19/24 Chief complaint: UTI, tibia plateau fracture Narrative: Ms. Renee is a 74-year-old female who has a history of rheumatoid arthritis on Methotrexate. She also reports having had a right knee fracture at 1 point which could not be operated on. She reports it would have been a total knee replacement but she was immunocompromised and therefore elective surgery could not be performed. She is primarily wheelchair bound and only stands to pivot. She comes to the emergency room today because she has had pain in her left leg for the last 2 days. She says that there was no initial injury related to the new pain in her left leg. However, she reports that she thinks she fell and now the pain is now worse after falling. She has a history of a left total knee arthroplasty with revision surgery in [place] but cannot remember with which surgeon. Review of Systems Review of Systems: Yes all other systems are reviewed and are negative PMF Past Medical History Medical History History of ESBL E. coli infection Osteomyelitis COPD (chronic obstructive pulmonary disease) Rheumatoid lung Hypothyroidism Congestive heart failure Fibromyalgia HTN (hypertension) Depression Rheumatoid arthritis Family History Family History Father No problems noted. Other Heart disease Surgical History Surgical History Hx of prior ablation treatment Knee joint replacement status Social History Social History Household Members: None Household Members Other:: 0 Housing: Apartment Do you presently have visiting nurse or other home services: Yes ([employer] HELPER assistance with cleaning, cooking, shopping daily) Unable to assess alcohol history related to: Unknown Alcohol intake: never Patient Tobacco Use Status: Former Tobacco user Tobacco use type: Cigarette e-Cigarette/Vaping Use: Never Used Second Hand Smoke Exposure: No service: No Meds Allergies Allergy/AdvReac Type Severity Reaction Status Date / Time lisinopril [LISINOPRIL] Allergy Severe ANAPHYLAXIS Verified 02/19/24 00:16 Sulfa (Sulfonamide Allergy Intermediate RASH Verified 02/19/24 00:16 Antibiotics) [SULFA (SULFONAMIDE ANTIBIOTICS)] tramadol [TRAMADOL] Allergy Intermediate RASH Verified 02/19/24 00:16 Twwevyp-KMU-BuK Reductase Allergy Rash Verified 02/19/24 00:16 Inhibitor [Ecjegvu-Vgm-Uwx Reductase Inhibitor] hydrochlorothiazide [HCTZ] AdvReac Unknown ABNORMAL Verified 02/19/24 00:16 LABS? Active Medications: Current Medications Acetaminophen (Acetaminophen 325 Mg Tablet) 650 mg PO Q6H PRN PRN Reason: Pain, Mild (Pain Scale 1-3), fever or headache Albuterol Sulfate (Albuterol Sulfate 90 Mcg 8 Gm Inhaler) 2 puff INHALE RQ6H PRN PRN Reason: wheezing Atenolol (Atenolol 25 Mg Tablet) 25 mg PO DAILY EUGENIO; Protocol Bupropion HCl (Bupropion Hcl Xl 150 Mg Tab.Er.24h) 150 mg PO DAILY [facility] Bupropion HCl (Bupropion Hcl Xl 300 Mg Tab.Er.24h) 300 mg PO DAILY [facility] Calcium Carbonate (Calcium Carbonate 750 Mg Tab.Chew) 750 mg PO Q4H PRN PRN Reason: Heartburn Docusate Sodium (Docusate Sodium 100 Mg Capsule) 100 mg PO BID [facility] Doxazosin Mesylate (Doxazosin Mesylate 2 Mg Tablet) 2 mg PO BEDTIME [facility]; Protocol Duloxetine HCl (Duloxetine Hcl 60 Mg Capsule.Dr) 60 mg PO DAILY [facility] Enoxaparin Sodium (Enoxaparin Sodium 40 Mg/0.4 Ml Syringe) 40 mg SUBCUT Q24H [facility] Last Admin: 02/19/24 10:51 Dose: 40 mg Ergocalciferol (Ergocalciferol (Vitamin D2) 1,250 Mcg Capsule) 1,250 mcg PO MO [facility] Folic Acid (Folic Acid 1 Mg Tablet) 1 mg PO DAILY [facility] Furosemide (Furosemide 20 Mg Tablet) 20 mg PO DAILY EUGENIO; Protocol Levothyroxine Sodium (Levothyroxine Sodium 50 Mcg Tablet) 50 mcg PO DAILY@0630 [facility] Magnesium Hydroxide (Milk Of Magnesia 30 Ml Oral.Susp) 30 ml PO DAILY PRN PRN Reason: Constipation Melatonin (Melatonin 3 Mg Tablet) 6 mg PO BEDTIME PRN PRN Reason: Insomnia Meropenem (Meropenem 1 Gm Vial) 1 gm IVPUSH Q12H [facility] Last Admin: 02/19/24 10:49 Dose: 1 gm Methotrexate (Methotrexate Sodium 2.5 Mg Tablet) 25 mg PO MO [facility] Morphine Sulfate (Morphine Sulfate 4 Mg/Ml Cartridge) 2 mg IVPUSH Q4H PRN; Protocol PRN Reason: Pain, Severe (Pain Scale 7-10) Last Admin: 02/19/24 11:35 Dose: 2 mg Omeprazole (Omeprazole 40 Mg Capsule.Dr) 40 mg PO DAILY@0630 [facility] Ondansetron HCl (Ondansetron Hcl 4 Mg/2 Ml Vial) 4 mg IVPUSH Q8H PRN PRN Reason: Nausea and Vomiting Oxycodone HCl (Oxycodone Hcl Immed Release 5 Mg Tablet) 20 mg PO Q6H [facility] Polyethylene Glycol (Polyethylene Glycol 3350 17 Gm Powd.Pack) 17 gm PO DAILY PRN PRN Reason: Constipation Prednisone (Prednisone 1 Mg Tablet) 4 mg PO DAILY [facility] Prednisone (Prednisone 5 Mg Tablet) 5 mg PO DAILY PRN PRN Reason: arthritis flare Pregabalin (Pregabalin 200 Mg Capsule) 200 mg PO BID [facility] Sodium Chloride (0.9 % Sodium Chloride Flush 3 Ml Syringe) 3 ml IVFLUSH QSHIFT [facility] Home Medications ?Medication ?Instructions ?Recorded ?Confirmed ?Last Taken ?Type albuterol sulfate 90 mcg/actuation 2 puff PO Q6H PRN wheezing 08/23/21 02/19/24 11/24/23 12:00 History aerosol inhaler bupropion HCl 300 mg 24 hr tablet, 300 mg PO DAILY 08/23/21 02/19/24 02/18/24 History extended release duloxetine 60 mg capsule,delayed 60 mg PO DAILY 08/23/21 02/19/24 02/18/24 History release ergocalciferol (vitamin D2) 1,250 1,250 mcg PO MO 08/23/21 02/19/24 02/12/24 History mcg (50,000 unit) capsule levothyroxine 50 mcg tablet 50 mcg PO DAILY@0630 08/23/21 02/19/24 02/18/24 History methotrexate sodium 2.5 mg tablet 10 tab PO MO 08/23/21 02/19/24 02/18/24 History omeprazole 40 mg capsule,delayed 40 mg PO DAILY@0630 08/23/21 02/19/24 02/18/24 History release prednisone 1 mg tablet 4 tab PO DAILY 08/23/21 02/19/24 02/18/24 History prednisone 5 mg tablet 5 - 10 mg PO DAILY PRN arthritis 02/16/22 02/19/24 11/24/23 12:00 History flare pregabalin 200 mg capsule 200 mg PO BID 01/07/23 02/19/24 02/18/24 History folic acid 1 mg tablet 1 mg PO DAILY 10/13/23 02/19/24 02/18/24 History bupropion HCl 150 mg 24 hr tablet, 150 mg PO DAILY 11/25/23 02/19/24 02/18/24 History extended release oxycodone 20 mg tablet 20 mg PO Q6H 02/19/24 02/19/24 02/18/24 History Physical Exam Vital Signs: Vital Signs: Last Vital Signs Temp 97.3 F 02/19/24 11:32 Pulse 69 02/19/24 11:32 Resp 18 02/19/24 11:32 BP 173/79 H 02/19/24 11:32 Pulse Ox 99 02/19/24 11:32 O2 Del Method Nasal Cannula 02/19/24 11:32 O2 Flow Rate 2 02/19/24 11:32 BMI result Body Mass Index 35.0 Extrem: Other: Left knee: Small halfdollar sized bruise on the anterolateral aspect of the knee. Pain with flexion and extension. Able to dorsi/plantar flex. Sensation intact. Pedal pulse intact. Results Labs 02/19/24 01:13 02/19/24 01:13 Labs: Abnormal lab results 02/19/24 02/19/24 02/19/24 Range/Units 01:13 01:17 08:12 MPV 9.3 L (9.4-12.3) fL Immature Gran % (Auto) 1.1 H (0.0-0.4) % Lymph % (Auto) 17.3 L (20-40) % [place] % (Auto) 11.8 H (2-11) % Abs Immat Gran (auto) 0.09 H (0.00-0.03) X10*3/uL VBG HCO3 29 H (22-26) mmol/L Urine Protein 30 (1+) H (Neg-Trace) mg/dL Urine Blood Moderate (2+) H (Negative) Ur Leukocyte Esterase Large (3+) H (Negative) Urine RBC 6-10 H (0-2) /HPF Urine WBC >50 H (0-5) /HPF H & H 02/19/24 Range/Units 01:13 Hgb 13.4 (12.0-16.0) g/dl Hct 39.9 (37.0-47.0) % All other labs normal. Assessment and Plan (1) Periprosthetic fracture around internal prosthetic left knee joint: Status: Acute Plan X-rays and CT reviewed: Minimally displaced subcortical/periprosthetic fracture of the medial metaphysis of the femur adjacent to the medial aspect of the femoral component. Patient is primarily WC bound and does not ambulate - Only pivots for transfers Non ambulatory at baseline and hasn't walked in reportedly 2 years No acute orthopedic surgery recommended at this time Patient may F/U out patient - Would recommend with her surgeon in [place] but happy to see her if she is unable to do so. NCIOLASA MENDIOLAE Procedures Date of Service Date of Service: 02/19/24
[2024-02-19] MEDS: oxyCODONE HCl Immed Release 5 MG TABLET 20 MG PO ×2 (13:12→17:50)
[2024-02-19] MEDS: predniSONE 1 MG TABLET 4 MG PO (13:12)
[2024-02-19] MEDS: atenoloL 25 MG TABLET PO (13:13)
[2024-02-19] MEDS: Levothyroxine Sodium 50 MCG TABLET PO (13:13)
[2024-02-19] MEDS: buPROPion HCl XL 150 MG TAB.ER.24H PO (13:13)
[2024-02-19] MEDS: Omeprazole 40 MG CAPSULE.DR PO (13:13)
[2024-02-19] MEDS: Folic Acid 1 MG TABLET PO (13:13)
[2024-02-19] MEDS: DULoxetine HCl 60 MG CAPSULE.DR PO (13:13)
[2024-02-19] MEDS: buPROPion HCl XL 300 MG TAB.ER.24H PO (13:13)
[2024-02-19] MEDS: Pregabalin 200 MG CAPSULE PO ×2 (13:14→20:12)
[2024-02-19] MEDS: Ergocalciferol (Vitamin D2) 1,250 MCG CAPSULE 1250 MCG PO (13:16)
[2024-02-19] MEDS: 0.9 % Sodium Chloride Flush 3 ML SYRINGE IVFLUSH ×2 (17:23→20:13)
[2024-02-19] MEDS: Doxazosin Mesylate 2 MG TABLET PO (20:12)
[2024-02-19] MEDS: Docusate Sodium 100 MG CAPSULE PO (20:12)
[2024-02-19 23:42] LABS: Appearance Urine Turbid; Color Urine Yellow; Glucose Urine UA Negative (Negative); Leukocyte Esterase Urine Large (3+) (Negative); Nitrite Urine Positive (Negative); PH 6.5 (5.0-9.0); Specific Gravity - Urine 1.025 (1.005-1.025); UMIC TRIGGER UACC YES; Urine Blood Small (1+) (Negative); Urine Ketones Negative (Negative); Urine Protein 30 (1+) mg/dL (Neg-Trace)
[2024-02-19 23:56] LABS: Bacteria Urine None Seen (None Seen); Hyaline Casts Urine 0-2 /LPF (0-2); UACC Culture Trigger YES; WBC Urine >50 /HPF (0-5)
[2024-02-20] MEDS: oxyCODONE HCl Immed Release 5 MG TABLET 20 MG PO ×5 (00:25→20:03)
[2024-02-20 03:06] VITALS: BP 155/72; PULSE 85; RESP 17; TEMP 36.8; O2SAT 93
[2024-02-20] MEDS: Morphine Sulfate 4 MG/ML CARTRIDGE 2 MG IVPUSH ×2 (03:56→15:50)
--- NOTE | 2024-02-20 05:10 | PC.NURSE ---
patient is upset because she says she takes her oxycodone Q4H at home but its scheduled Q6H in the hospital
[2024-02-20] MEDS: Omeprazole 40 MG CAPSULE.DR PO (06:24)
[2024-02-20] MEDS: Levothyroxine Sodium 50 MCG TABLET PO (06:24)
[2024-02-20 07:37] VITALS: BP 146/79; PULSE 82; RESP 16; TEMP 36.4; O2SAT 94
[2024-02-20] MEDS: 0.9 % Sodium Chloride Flush 3 ML SYRINGE IVFLUSH ×3 (07:37→20:07)
[2024-02-20] MEDS: predniSONE 1 MG TABLET 4 MG PO (07:39)
[2024-02-20] MEDS: Furosemide 20 MG TABLET PO ×2 (07:39→07:40)
[2024-02-20] MEDS: Pregabalin 200 MG CAPSULE PO ×2 (07:40→20:02)
[2024-02-20] MEDS: buPROPion HCl XL 150 MG TAB.ER.24H PO (07:40)
[2024-02-20] MEDS: buPROPion HCl XL 300 MG TAB.ER.24H PO (07:40)
[2024-02-20] MEDS: DULoxetine HCl 60 MG CAPSULE.DR PO (07:40)
[2024-02-20] MEDS: Folic Acid 1 MG TABLET PO (07:40)
[2024-02-20] MEDS: atenoloL 25 MG TABLET PO (07:41)
[2024-02-20] MEDS: Docusate Sodium 100 MG CAPSULE PO ×2 (07:42→20:03)
[2024-02-20] MEDS: Enoxaparin Sodium 40 MG/0.4 ML SYRINGE SUBCUT (09:24)
[2024-02-20] MEDS: Meropenem 1 GM VIAL IVPUSH ×2 (09:25→22:38)
--- NOTE | 2024-02-20 11:22 | MHC.CM.PN ---
PT IS NOT ACTIVE W/HVNS
--- NOTE | 2024-02-20 11:24 | MHC.CM.PN ---
PT LIVES ALONE HAS A VNA IS NOT SURE WHAT AGENCEY PT HAS 2 HRS 7 DAYS FEOM [facility] A OF [place] [employer] PT FEELS SHE WILL REQUIRE A STR WHEN DCD REFERRALS MADE PT THOUGHT SHE HAD HVNS ,SHE DOES NOT DC PLAN STR
[2024-02-20 15:29] VITALS: BP 160/72; PULSE 86; RESP 18; TEMP 36.7; O2SAT 94
--- NOTE | 2024-02-20 16:50 | P.PNIM_ITS ---
Subjective Subjective Date of Service: 02/20/24 Interval History: Minimally displaced subcortical/periprosthetic fracture of the medial metaphysis of the femur ecoli uti Review of Systems has some knee pain denies any new c/o Physical Exam 2 Vital Signs: Vital Signs: Last Vital Signs Temp 98.1 F 02/20/24 15:29 Pulse 86 02/20/24 15:29 Resp 18 02/20/24 15:29 BP 160/72 H 02/20/24 15:29 Pulse Ox 94 02/20/24 15:29 O2 Del Method Nasal Cannula 02/20/24 15:29 O2 Flow Rate 1.0 02/20/24 15:29 BMI result Body Mass Index 35.0 Appearance: Alert.? Oriented X3. cvs: [id number], [id number] . res: clear to auscultation ,no rhonchii or wheezing abd: no rebound or guarding ,nt, bs present. ext pulses present , no cyanosis . MS: left knee pain , ROM limited due to pain. neuro: axo3 , nonfocal. Objective Data Active Medications Acetaminophen (Acetaminophen 325 Mg Tablet) 650 mg PO Q6H PRN PRN Reason: Pain, Mild (Pain Scale 1-3), fever or headache Albuterol Sulfate (Albuterol Sulfate 90 Mcg 8 Gm Inhaler) 2 puff INHALE RQ6H PRN PRN Reason: wheezing Atenolol (Atenolol 25 Mg Tablet) 25 mg PO DAILY [facility]; Protocol Last Admin: 02/20/24 07:41 Dose: 25 mg Documented By: LARRY Bupropion HCl (Bupropion Hcl Xl 150 Mg Tab.Er.24h) 150 mg PO DAILY [facility] Last Admin: 02/20/24 07:40 Dose: 150 mg Documented By: LARRY Bupropion HCl (Bupropion Hcl Xl 300 Mg Tab.Er.24h) 300 mg PO DAILY [facility] Last Admin: 02/20/24 07:40 Dose: 300 mg Documented By: LARRY Calcium Carbonate (Calcium Carbonate 750 Mg Tab.Chew) 750 mg PO Q4H PRN PRN Reason: Heartburn Docusate Sodium (Docusate Sodium 100 Mg Capsule) 100 mg PO BID [facility] Last Admin: 02/20/24 07:42 Dose: 100 mg Documented By: LARRY Doxazosin Mesylate (Doxazosin Mesylate 2 Mg Tablet) 2 mg PO BEDTIME [facility]; Protocol Last Admin: 02/19/24 20:12 Dose: 2 mg Documented By: ELLA Duloxetine HCl (Duloxetine Hcl 60 Mg Capsule.) 60 mg PO DAILY [facility] Last Admin: 02/20/24 07:40 Dose: 60 mg Documented By: LARRY Enoxaparin Sodium (Enoxaparin Sodium 40 Mg/0.4 Ml Syringe) 40 mg SUBCUT Q24H [facility] Last Admin: 02/20/24 09:24 Dose: 40 mg Documented By: LARRY Ergocalciferol (Ergocalciferol (Vitamin D2) 1,250 Mcg Capsule) 1,250 mcg PO MO [facility] Last Admin: 02/19/24 13:16 Dose: 1,250 mcg Documented By: CHIKI Folic Acid (Folic Acid 1 Mg Tablet) 1 mg PO DAILY [facility] Last Admin: 02/20/24 07:40 Dose: 1 mg Documented By: LARRY Furosemide (Furosemide 20 Mg Tablet) 20 mg PO DAILY [facility]; Protocol Last Admin: 02/20/24 07:40 Dose: 20 mg Documented By: LARRY Levothyroxine Sodium (Levothyroxine Sodium 50 Mcg Tablet) 50 mcg PO DAILY@0630 [facility] Last Admin: 02/20/24 06:24 Dose: 50 mcg Documented By: ELLA Magnesium Hydroxide (Milk Of Magnesia 30 Ml Oral.Susp) 30 ml PO DAILY PRN PRN Reason: Constipation Melatonin (Melatonin 3 Mg Tablet) 6 mg PO BEDTIME PRN PRN Reason: Insomnia Meropenem (Meropenem 1 Gm Vial) 1 gm IVPUSH Q12H [facility] Last Admin: 02/20/24 09:25 Dose: 1 gm Documented By: LARRY Methotrexate (Methotrexate Sodium 2.5 Mg Tablet) 25 mg PO MO [facility] Morphine Sulfate (Morphine Sulfate 4 Mg/Ml Cartridge) 2 mg IVPUSH Q4H PRN; Protocol PRN Reason: Pain, Severe (Pain Scale 7-10) Last Admin: 02/20/24 15:50 Dose: 2 mg Documented By: LARRY Omeprazole (Omeprazole 40 Mg Capsule.) 40 mg PO DAILY@0630 [facility] Last Admin: 02/20/24 06:24 Dose: 40 mg Documented By: ELLA Ondansetron HCl (Ondansetron Hcl 4 Mg/2 Ml Vial) 4 mg IVPUSH Q8H PRN PRN Reason: Nausea and Vomiting Oxycodone HCl (Oxycodone Hcl Immed Release 5 Mg Tablet) 20 mg PO Q4H [facility] Polyethylene Glycol (Polyethylene Glycol 3350 17 Gm Powd.Pack) 17 gm PO DAILY PRN PRN Reason: Constipation Prednisone (Prednisone 1 Mg Tablet) 4 mg PO DAILY [facility] Last Admin: 02/20/24 07:39 Dose: 4 mg Documented By: LARRY Prednisone (Prednisone 5 Mg Tablet) 5 mg PO DAILY PRN PRN Reason: arthritis flare Pregabalin (Pregabalin 200 Mg Capsule) 200 mg PO BID [facility] Last Admin: 02/20/24 07:40 Dose: 200 mg Documented By: LARRY Sodium Chloride (0.9 % Sodium Chloride Flush 3 Ml Syringe) 3 ml IVFLUSH QSHIFT [facility] Last Admin: 02/20/24 07:37 Dose: 3 ml Documented By: LARRY Labs 02/19/24 01:13 02/19/24 01:13 Labs: Laboratory Results - last 24 hr 02/19/24 23:30 Urine Color Yellow Urine Appearance Turbid Urine pH 6.5 Ur Specific [place] 1.025 Urine Protein 30 (1+) H Urine Glucose (UA) Negative Urine Ketones Negative Urine Blood Small (1+) H Urine Nitrite Positive H Ur Leukocyte Esterase Large (3+) H Urine RBC 3-5 H Urine WBC >50 H Ur Squamous Epith Cells 6-10 Urine Bacteria None Seen Hyaline Casts 0-2 Microbiology Microbiology Results: Microbiology 02/19/24 08:58 Blood Culture - Preliminary Blood - Venous No growth after 24 hours. 02/19/24 08:35 Blood Culture - Preliminary Blood - Venous No growth after 24 hours. 02/19/24 Unknown Urine Culture - Preliminary Urine Catheterized - Brantley Catheter Gram negative altaf Assessment and Plan (1) Acute metabolic encephalopathy: Status: Resolved Plan 73yo F with HTN, COPD, RA on prednisone + MTX, hypothyroidism, 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 Did not take nitrofurantoin prescribed appropriately. Presenting with 2 days of intermittent somnolence and agitation along with disorientation. Concern for UTI vs excess opioid use. Toxic-metabolic encepahalopathy seems more clear CTA of head done today without acute findings continue to treat UTI-Discussed with ID. Encephalopathy likely unrelated to urine however we will continue antibiotics until urine culture finalized 2.Chronic pain w/opioid dependence secondary to RA - doing well with 15 mg of oxycodone q.4 PRN -we will continue same and follow 2.ESBL... UTI-continue ertapenem; inadequate treat met with orals. Given improvement when mentation with minimal reduction of opiates continue antibiotics pending culture 3.RA(steroid dependent) -continue outpatient dosing as ordered 4.HTN-acceptable control on current therapies adjust as indicated 5.COPD- no acute issues this admission Full code Lovenox Requires ongoing hospitalization for IV antibiotics pending urine culture Quality Stroke Does the patient have a stroke diagnosis?: No VTE Prior VTE?: No VTE Risk Level:: Medical - moderate - high VTE Device Contraindication: Treatment Not Indicated VTE Drug Contraindication: N/A - Med Ordered
[2024-02-20 19:25] VITALS: BP 184/85; PULSE 83; RESP 20; TEMP 36.8; O2SAT 92
[2024-02-20] MEDS: Doxazosin Mesylate 2 MG TABLET PO (20:03)
[2024-02-21] MEDS: oxyCODONE HCl Immed Release 5 MG TABLET 20 MG PO ×6 (00:50→21:43)
[2024-02-21 03:29] VITALS: PULSE 89; RESP 18; TEMP 37.1; O2SAT 93
[2024-02-21 03:41] VITALS: BP 162/88
[2024-02-21] MEDS: Omeprazole 40 MG CAPSULE.DR PO (05:09)
[2024-02-21] MEDS: Levothyroxine Sodium 50 MCG TABLET PO (05:09)
[2024-02-21 07:40] VITALS: BP 182/83; PULSE 78; RESP 18; TEMP 36.9; O2SAT 93
[2024-02-21] MEDS: 0.9 % Sodium Chloride Flush 3 ML SYRINGE IVFLUSH ×3 (08:04→21:50)
[2024-02-21] MEDS: atenoloL 25 MG TABLET PO (08:06)
[2024-02-21] MEDS: Docusate Sodium 100 MG CAPSULE PO ×2 (08:06→21:43)
[2024-02-21] MEDS: buPROPion HCl XL 150 MG TAB.ER.24H PO (08:06)
[2024-02-21] MEDS: DULoxetine HCl 60 MG CAPSULE.DR PO (08:06)
[2024-02-21] MEDS: Pregabalin 200 MG CAPSULE PO ×2 (08:06→21:43)
[2024-02-21] MEDS: Folic Acid 1 MG TABLET PO (08:06)
[2024-02-21] MEDS: Furosemide 20 MG TABLET PO (08:06)
[2024-02-21] MEDS: buPROPion HCl XL 300 MG TAB.ER.24H PO (08:06)
[2024-02-21] MEDS: predniSONE 1 MG TABLET 4 MG PO (08:07)
[2024-02-21] MEDS: predniSONE 20 MG TABLET 40 MG PO (10:58)
[2024-02-21] MEDS: Meropenem 1 GM VIAL IVPUSH ×2 (10:59→21:43)
[2024-02-21] MEDS: Enoxaparin Sodium 40 MG/0.4 ML SYRINGE SUBCUT (10:59)
--- NOTE | 2024-02-21 12:11 | MHC.CM.PN ---
pt dcd today [facility] will be in to do the teach for pt pt can not have a vna no one will take his ins pt can go out pt for ot
--- NOTE | 2024-02-21 13:49 | HO.PM.IMPN ---
Subjective Subjective Date of Service: 02/21/24 Interval History: HTN Review of Systems says still has pains Physical Exam Vital Signs: Vital Signs: Last Vital Signs Temp 98.5 F 02/21/24 07:40 Pulse 78 02/21/24 07:40 Resp 18 02/21/24 07:40 BP 182/83 H 02/21/24 07:40 Pulse Ox 93 02/21/24 07:40 O2 Del Method Nasal Cannula 02/21/24 07:40 O2 Flow Rate 1 02/21/24 07:40 BMI result Body Mass Index 35.0 Appearance: Alert.? Oriented X3. cvs: rrr, [id number] . res: clear to auscultation ,no rhonchii or wheezing abd: no rebound or guarding ,nt, bs present. ext pulses present , no cyanosis . MS: left knee pain , ROM limited due to pain. neuro: axo3 , nonfocal. Objective Data Active Medications Acetaminophen (Acetaminophen 325 Mg Tablet) 650 mg PO Q6H PRN PRN Reason: Pain, Mild (Pain Scale 1-3), fever or headache Albuterol Sulfate (Albuterol Sulfate 90 Mcg 8 Gm Inhaler) 2 puff INHALE RQ6H PRN PRN Reason: wheezing Atenolol (Atenolol 25 Mg Tablet) 25 mg PO DAILY [facility]; Protocol Last Admin: 02/21/24 08:06 Dose: 25 mg Documented By: LOLA Bupropion HCl (Bupropion Hcl Xl 150 Mg Tab.Er.24h) 150 mg PO DAILY [facility] Last Admin: 02/21/24 08:06 Dose: 150 mg Documented By: LOLA Bupropion HCl (Bupropion Hcl Xl 300 Mg Tab.Er.24h) 300 mg PO DAILY [facility] Last Admin: 02/21/24 08:06 Dose: 300 mg Documented By: LOLA Calcium Carbonate (Calcium Carbonate 750 Mg Tab.Chew) 750 mg PO Q4H PRN PRN Reason: Heartburn Docusate Sodium (Docusate Sodium 100 Mg Capsule) 100 mg PO BID [facility] Last Admin: 02/21/24 08:06 Dose: 100 mg Documented By: LOLA Doxazosin Mesylate (Doxazosin Mesylate 2 Mg Tablet) 2 mg PO BEDTIME [facility]; Protocol Last Admin: 02/20/24 20:03 Dose: 2 mg Documented By: ELLA Duloxetine HCl (Duloxetine Hcl 60 Mg Capsule.) 60 mg PO DAILY [facility] Last Admin: 02/21/24 08:06 Dose: 60 mg Documented By: LOLA Enoxaparin Sodium (Enoxaparin Sodium 40 Mg/0.4 Ml Syringe) 40 mg SUBCUT Q24H [facility] Last Admin: 02/21/24 10:59 Dose: 40 mg Documented By: LOLA Ergocalciferol (Ergocalciferol (Vitamin D2) 1,250 Mcg Capsule) 1,250 mcg PO MO [facility] Last Admin: 02/19/24 13:16 Dose: 1,250 mcg Documented By: CHIKI Folic Acid (Folic Acid 1 Mg Tablet) 1 mg PO DAILY [facility] Last Admin: 02/21/24 08:06 Dose: 1 mg Documented By: LOLA Furosemide (Furosemide 20 Mg Tablet) 20 mg PO DAILY [facility]; Protocol Last Admin: 02/21/24 08:06 Dose: 20 mg Documented By: LOLA Levothyroxine Sodium (Levothyroxine Sodium 50 Mcg Tablet) 50 mcg PO DAILY@629 [facility] Last Admin: 02/21/24 05:09 Dose: 50 mcg Documented By: ELLA Lidocaine (Lidocaine 4 % Patch Adh..Patch) 1 patch TRANSDERMA DAILY [facility]; Protocol Magnesium Hydroxide (Milk Of Magnesia 30 Ml Oral.Susp) 30 ml PO DAILY PRN PRN Reason: Constipation Melatonin (Melatonin 3 Mg Tablet) 6 mg PO BEDTIME PRN PRN Reason: Insomnia Meropenem (Meropenem 1 Gm Vial) 1 gm IVPUSH Q12H [facility] Last Admin: 02/21/24 10:59 Dose: 1 gm Documented By: LOLA Methotrexate (Methotrexate Sodium 2.5 Mg Tablet) 25 mg PO MO [facility] Morphine Sulfate (Morphine Sulfate 4 Mg/Ml Cartridge) 2 mg IVPUSH Q4H PRN; Protocol PRN Reason: Pain, Severe (Pain Scale 7-10) Last Admin: 02/20/24 15:50 Dose: 2 mg Documented By: LARRY Omeprazole (Omeprazole 40 Mg Capsule.) 40 mg PO DAILY@0630 [facility] Last Admin: 02/21/24 05:09 Dose: 40 mg Documented By: ELLA Ondansetron HCl (Ondansetron Hcl 4 Mg/2 Ml Vial) 4 mg IVPUSH Q8H PRN PRN Reason: Nausea and Vomiting Oxycodone HCl (Oxycodone Hcl Immed Release 5 Mg Tablet) 20 mg PO Q4H [facility] Last Admin: 02/21/24 08:07 Dose: 20 mg Documented By: LOLA Polyethylene Glycol (Polyethylene Glycol 3350 17 Gm Powd.Pack) 17 gm PO DAILY PRN PRN Reason: Constipation Prednisone (Prednisone 1 Mg Tablet) 4 mg PO DAILY [facility] Last Admin: 02/21/24 08:07 Dose: 4 mg Documented By: LOLA Prednisone (Prednisone 5 Mg Tablet) 5 mg PO DAILY PRN PRN Reason: arthritis flare Pregabalin (Pregabalin 200 Mg Capsule) 200 mg PO BID [facility] Last Admin: 02/21/24 08:06 Dose: 200 mg Documented By: LOLA Sodium Chloride (0.9 % Sodium Chloride Flush 3 Ml Syringe) 3 ml IVFLUSH QSHIFT [facility] Last Admin: 02/21/24 08:04 Dose: 3 ml Documented By: LOLA Labs 02/19/24 01:13 02/19/24 01:13 Microbiology Microbiology Results: Microbiology 02/20/24 Unknown Urine Culture - Final Urine clean catch - Clean Catch Midstream No growth. 02/19/24 08:58 Blood Culture - Preliminary Blood - Venous No growth after 48 hours. 02/19/24 08:35 Blood Culture - Preliminary Blood - Venous No growth after 48 hours. 02/19/24 Unknown Urine Culture - Final Urine Catheterized - Brantley Catheter Escherichia coli Assessment and Plan (1) Acute metabolic encephalopathy: Status: Resolved Plan 73yo F with HTN, COPD, RA on prednisone + MTX, hypothyroidism, 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 Did not take nitrofurantoin prescribed appropriately. Presenting with 2 days of intermittent somnolence and agitation along with disorientation. Concern for UTI vs excess opioid use. Toxic-metabolic encepahalopathy seems more clear CTA of head done today without acute findings continue to treat UTI-Discussed with ID. Encephalopathy likely unrelated to urine however we will continue antibiotics until urine culture finalized 2.Chronic pain w/opioid dependence secondary to RA - doing well with 15 mg of oxycodone q.4 PRN -we will continue same and follow 2.ESBL... UTI-continue ertapenem; inadequate treat met with orals. Given improvement when mentation with minimal reduction of opiates continue antibiotics pending culture 3.RA(steroid dependent) -continue outpatient dosing as ordered 4.HTN-acceptable control on current therapies adjust as indicated 5.COPD- no acute issues this admission Full code Lovenox Requires ongoing hospitalization for IV antibiotics pending urine culture Quality Stroke Does the patient have a stroke diagnosis?: No VTE Prior VTE?: No VTE Risk Level:: Medical - moderate - high VTE Device Contraindication: Treatment Not Indicated VTE Drug Contraindication: N/A - Med Ordered
[2024-02-21] MEDS: amLODIPine Besylate 2.5 MG TABLET PO (14:54)
[2024-02-21] MEDS: Lidocaine 4 % Patch ADH..PATCH 1 PATCH TRANSDERMA (14:55)
[2024-02-21 15:28] VITALS: BP 133/88; PULSE 84; RESP 18; TEMP 36.9; O2SAT 91
[2024-02-21 19:15] VITALS: BP 155/72; PULSE 80; RESP 18; TEMP 36.6; O2SAT 96
[2024-02-21] MEDS: Doxazosin Mesylate 2 MG TABLET PO (21:49)
[2024-02-21] MEDS: Melatonin 3 MG TABLET 6 MG PO (21:49)
[2024-02-22] MEDS: oxyCODONE HCl Immed Release 5 MG TABLET 20 MG PO ×6 (02:00→19:39)
[2024-02-22 03:21] VITALS: BP 128/64; PULSE 68; RESP 18; TEMP 36; O2SAT 93
[2024-02-22] MEDS: Omeprazole 40 MG CAPSULE.DR PO (05:32)
[2024-02-22] MEDS: Levothyroxine Sodium 50 MCG TABLET PO (05:33)
[2024-02-22 08:11] VITALS: BP 143/65; PULSE 66; RESP 12; TEMP 36.2; O2SAT 92
[2024-02-22] MEDS: 0.9 % Sodium Chloride Flush 3 ML SYRINGE IVFLUSH ×3 (09:45→22:38)
[2024-02-22] MEDS: Enoxaparin Sodium 40 MG/0.4 ML SYRINGE SUBCUT (09:46)
[2024-02-22] MEDS: Docusate Sodium 100 MG CAPSULE PO ×2 (09:46→19:39)
[2024-02-22] MEDS: Furosemide 20 MG TABLET PO (09:47)
[2024-02-22] MEDS: predniSONE 1 MG TABLET 4 MG PO (09:48)
[2024-02-22 09:49] VITALS: BP 151/69; PULSE 71
[2024-02-22] MEDS: atenoloL 25 MG TABLET PO (09:49)
[2024-02-22] MEDS: Pregabalin 200 MG CAPSULE PO ×2 (09:50→19:39)
[2024-02-22] MEDS: amLODIPine Besylate 2.5 MG TABLET PO (09:50)
[2024-02-22] MEDS: Folic Acid 1 MG TABLET PO (09:51)
[2024-02-22] MEDS: DULoxetine HCl 60 MG CAPSULE.DR PO (09:51)
[2024-02-22] MEDS: buPROPion HCl XL 150 MG TAB.ER.24H PO (09:51)
[2024-02-22] MEDS: buPROPion HCl XL 300 MG TAB.ER.24H PO (09:51)
[2024-02-22] MEDS: Lidocaine 4 % Patch ADH..PATCH 1 PATCH TRANSDERMA (09:52)
--- NOTE | 2024-02-22 10:31 | P.PNIM_ITS ---
Subjective Subjective Date of Service: 02/22/24 Interval History: HTN Review of Systems pains seems improving no new c/o Physical Exam 2 Vital Signs: Vital Signs: Last Vital Signs Temp 97.1 F 02/22/24 08:11 Pulse 71 02/22/24 09:49 Resp 12 02/22/24 08:11 BP 151/69 H 02/22/24 09:49 Pulse Ox 92 02/22/24 08:11 O2 Del Method Room Air 02/22/24 08:11 O2 Flow Rate 1 02/21/24 07:40 BMI result Body Mass Index 35.0 Appearance: Alert.? Oriented X3. cvs: [id number], [id number] . res: clear to auscultation ,no rhonchii or wheezing abd: no rebound or guarding ,nt, bs present. ext pulses present , no cyanosis . MS: left knee pain , ROM limited due to pain. neuro: axo3 , nonfocal. Objective Data Active Medications Acetaminophen (Acetaminophen 325 Mg Tablet) 650 mg PO Q6H PRN PRN Reason: Pain, Mild (Pain Scale 1-3), fever or headache Albuterol Sulfate (Albuterol Sulfate 90 Mcg 8 Gm Inhaler) 2 puff INHALE RQ6H PRN PRN Reason: wheezing Amlodipine Besylate (Amlodipine Besylate 2.5 Mg Tablet) 2.5 mg PO DAILY [facility]; Protocol Last Admin: 02/22/24 09:50 Dose: 2.5 mg Documented By: MIAH Atenolol (Atenolol 25 Mg Tablet) 25 mg PO DAILY [facility]; Protocol Last Admin: 02/22/24 09:49 Dose: 25 mg Documented By: MIAH Bupropion HCl (Bupropion Hcl Xl 150 Mg Tab.Er.24h) 150 mg PO DAILY [facility] Last Admin: 02/22/24 09:51 Dose: 150 mg Documented By: MIAH Bupropion HCl (Bupropion Hcl Xl 300 Mg Tab.Er.24h) 300 mg PO DAILY [facility] Last Admin: 02/22/24 09:51 Dose: 300 mg Documented By: MIAH Calcium Carbonate (Calcium Carbonate 750 Mg Tab.Chew) 750 mg PO Q4H PRN PRN Reason: Heartburn Docusate Sodium (Docusate Sodium 100 Mg Capsule) 100 mg PO BID [facility] Last Admin: 02/22/24 09:46 Dose: 100 mg Documented By: MIAH Doxazosin Mesylate (Doxazosin Mesylate 2 Mg Tablet) 2 mg PO BEDTIME [facility]; Protocol Last Admin: 02/21/24 21:49 Dose: 2 mg Documented By: GILLIAN Duloxetine HCl (Duloxetine Hcl 60 Mg Capsule.Dr) 60 mg PO DAILY [facility] Last Admin: 02/22/24 09:51 Dose: 60 mg Documented By: MIAH Enoxaparin Sodium (Enoxaparin Sodium 40 Mg/0.4 Ml Syringe) 40 mg SUBCUT Q24H [facility] Last Admin: 02/22/24 09:46 Dose: 40 mg Documented By: MIAH Ergocalciferol (Ergocalciferol (Vitamin D2) 1,250 Mcg Capsule) 1,250 mcg PO MO [facility] Last Admin: 02/19/24 13:16 Dose: 1,250 mcg Documented By: CHIKI Folic Acid (Folic Acid 1 Mg Tablet) 1 mg PO DAILY [facility] Last Admin: 02/22/24 09:51 Dose: 1 mg Documented By: MIAH Furosemide (Furosemide 20 Mg Tablet) 20 mg PO DAILY [facility]; Protocol Last Admin: 02/22/24 09:47 Dose: 20 mg Documented By: MIAH Levothyroxine Sodium (Levothyroxine Sodium 50 Mcg Tablet) 50 mcg PO DAILY@0630 [facility] Last Admin: 02/22/24 05:33 Dose: 50 mcg Documented By: GILLIAN Lidocaine (Lidocaine 4 % Patch Adh..Patch) 1 patch TRANSDERMA DAILY [facility]; Protocol Last Admin: 02/22/24 09:52 Dose: 1 patch Documented By: MIAH Magnesium Hydroxide (Milk Of Magnesia 30 Ml Oral.Susp) 30 ml PO DAILY PRN PRN Reason: Constipation Melatonin (Melatonin 3 Mg Tablet) 6 mg PO BEDTIME PRN PRN Reason: Insomnia Last Admin: 02/21/24 21:49 Dose: 6 mg Documented By: GILLIAN Meropenem (Meropenem 1 Gm Vial) 1 gm IVPUSH Q12H [facility] Last Admin: 02/21/24 21:43 Dose: 1 gm Documented By: GILLIAN Methotrexate (Methotrexate Sodium 2.5 Mg Tablet) 25 mg PO MO [facility] Morphine Sulfate (Morphine Sulfate 4 Mg/Ml Cartridge) 2 mg IVPUSH Q4H PRN; Protocol PRN Reason: Pain, Severe (Pain Scale 7-10) Last Admin: 02/20/24 15:50 Dose: 2 mg Documented By: LARRY Omeprazole (Omeprazole 40 Mg Capsule.) 40 mg PO DAILY@0630 [facility] Last Admin: 02/22/24 05:32 Dose: 40 mg Documented By: GILLIAN Ondansetron HCl (Ondansetron Hcl 4 Mg/2 Ml Vial) 4 mg IVPUSH Q8H PRN PRN Reason: Nausea and Vomiting Oxycodone HCl (Oxycodone Hcl Immed Release 5 Mg Tablet) 20 mg PO Q4H [facility] Last Admin: 02/22/24 09:54 Dose: 20 mg Documented By: MIAH Polyethylene Glycol (Polyethylene Glycol 3350 17 Gm Powd.Pack) 17 gm PO DAILY PRN PRN Reason: Constipation Prednisone (Prednisone 1 Mg Tablet) 4 mg PO DAILY [facility] Last Admin: 02/22/24 09:48 Dose: 4 mg Documented By: MIAH Prednisone (Prednisone 5 Mg Tablet) 5 mg PO DAILY PRN PRN Reason: arthritis flare Pregabalin (Pregabalin 200 Mg Capsule) 200 mg PO BID [facility] Last Admin: 02/22/24 09:50 Dose: 200 mg Documented By: MIAH Sodium Chloride (0.9 % Sodium Chloride Flush 3 Ml Syringe) 3 ml IVFLUSH QSHIFT [facility] Last Admin: 02/22/24 09:45 Dose: 3 ml Documented By: MIAH Labs 02/19/24 01:13 02/19/24 01:13 Microbiology Microbiology Results: Microbiology 02/20/24 Unknown Urine Culture - Final Urine clean catch - Clean Catch Midstream No growth. 02/19/24 08:58 Blood Culture - Preliminary Blood - Venous No growth after 48 hours. 02/19/24 08:35 Blood Culture - Preliminary Blood - Venous No growth after 48 hours. 02/19/24 Unknown Urine Culture - Final Urine Catheterized - Brantley Catheter Escherichia coli Assessment and Plan (1) Periprosthetic fracture around internal prosthetic left knee joint: Status: Acute Assessment and Plan: 73yo F with HTN, COPD, RA on prednisone + MTX, hypothyroidism, 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 Did not take nitrofurantoin prescribed appropriately. Presenting with 2 days of intermittent somnolence and agitation along with disorientation. Concern for UTI vs excess opioid use. Toxic-metabolic encepahalopathy seems more clear CTA of head done today without acute findings continue to treat UTI-Discussed with ID. Encephalopathy likely unrelated to urine however we will continue antibiotics until urine culture finalized 2.Chronic pain w/opioid dependence secondary to RA - doing well with 15 mg of oxycodone q.4 PRN -we will continue same and follow 2.ESBL- UTI-continue ertapenem; inadequate treat met with orals. Given improvement when mentation with minimal reduction of opiates continue antibiotics pending culture 3.RA(steroid dependent) -continue outpatient dosing as ordered 4.HTN-acceptable control on current therapies adjust as indicated 5.COPD- no acute issues this admission Full code Lovenox Requires ongoing hospitalization for IV antibiotics pending urine culture Quality Stroke Does the patient have a stroke diagnosis?: No VTE Prior VTE?: No VTE Risk Level:: Medical - moderate - high VTE Device Contraindication: Treatment Not Indicated VTE Drug Contraindication: N/A - Med Ordered
[2024-02-22] MEDS: Meropenem 1 GM VIAL IVPUSH ×2 (12:20→22:38)
[2024-02-22] MEDS: Morphine Sulfate 4 MG/ML CARTRIDGE 2 MG IVPUSH ×3 (12:20→23:10)
[2024-02-22 15:40] VITALS: BP 146/69; PULSE 74; RESP 12; TEMP 36.7; O2SAT 92
[2024-02-22] MEDS: Doxazosin Mesylate 2 MG TABLET PO (19:39)
[2024-02-22 20:00] VITALS: BP 148/66; PULSE 63; RESP 20; TEMP 36.7; O2SAT 93
[2024-02-23] MEDS: oxyCODONE HCl Immed Release 5 MG TABLET 20 MG PO ×6 (01:32→21:12)
[2024-02-23 03:29] VITALS: BP 166/79; PULSE 67; RESP 18; TEMP 36.2; O2SAT 94
[2024-02-23] MEDS: Omeprazole 40 MG CAPSULE.DR PO (05:55)
[2024-02-23] MEDS: Levothyroxine Sodium 50 MCG TABLET PO (05:55)
[2024-02-23] MEDS: Morphine Sulfate 4 MG/ML CARTRIDGE 2 MG IVPUSH ×3 (05:59→22:36)
[2024-02-23] MEDS: Pregabalin 200 MG CAPSULE PO ×2 (07:39→21:34)
[2024-02-23] MEDS: Folic Acid 1 MG TABLET PO (07:39)
[2024-02-23] MEDS: predniSONE 1 MG TABLET 4 MG PO (07:39)
[2024-02-23] MEDS: DULoxetine HCl 60 MG CAPSULE.DR PO (07:40)
[2024-02-23] MEDS: Furosemide 20 MG TABLET PO (07:40)
[2024-02-23] MEDS: amLODIPine Besylate 2.5 MG TABLET PO (07:40)
[2024-02-23] MEDS: buPROPion HCl XL 150 MG TAB.ER.24H PO (07:40)
[2024-02-23] MEDS: Docusate Sodium 100 MG CAPSULE PO ×2 (07:40→21:34)
[2024-02-23] MEDS: atenoloL 25 MG TABLET PO (07:40)
[2024-02-23] MEDS: 0.9 % Sodium Chloride Flush 3 ML SYRINGE IVFLUSH ×2 (07:41→16:03)
[2024-02-23] MEDS: buPROPion HCl XL 300 MG TAB.ER.24H PO (07:41)
[2024-02-23 07:53] VITALS: BP 145/80; PULSE 68; RESP 16; TEMP 36.6; O2SAT 93
[2024-02-23] MEDS: Meropenem 1 GM VIAL IVPUSH ×2 (10:23→21:42)
[2024-02-23] MEDS: Enoxaparin Sodium 40 MG/0.4 ML SYRINGE SUBCUT (10:23)
--- NOTE | 2024-02-23 11:57 | HO.PM.IMPN ---
Subjective Subjective Date of Service: 02/23/24 Interval History: HTN Review of Systems pains seems improving no new c/o Physical Exam Vital Signs: Vital Signs: Last Vital Signs Temp 97.9 F 02/23/24 07:53 Pulse 68 02/23/24 07:53 Resp 16 02/23/24 07:53 BP 145/80 H 02/23/24 07:53 Pulse Ox 93 02/23/24 07:53 O2 Del Method Room Air 02/23/24 07:53 O2 Flow Rate 1 02/21/24 07:40 BMI result Body Mass Index 35.0 Appearance: Alert.? Oriented X3. cvs: [id number], [id number] . res: clear to auscultation ,no rhonchii or wheezing abd: no rebound or guarding ,nt, bs present. ext pulses present , no cyanosis . MS: left knee pain , ROM limited due to pain. neuro: axo3 , nonfocal. Objective Data Active Medications Acetaminophen (Acetaminophen 325 Mg Tablet) 650 mg PO Q6H PRN PRN Reason: Pain, Mild (Pain Scale 1-3), fever or headache Albuterol Sulfate (Albuterol Sulfate 90 Mcg 8 Gm Inhaler) 2 puff INHALE RQ6H PRN PRN Reason: wheezing Amlodipine Besylate (Amlodipine Besylate 2.5 Mg Tablet) 2.5 mg PO DAILY [facility]; Protocol Last Admin: 02/23/24 07:40 Dose: 2.5 mg Documented By: MIKE Atenolol (Atenolol 25 Mg Tablet) 25 mg PO DAILY [facility]; Protocol Last Admin: 02/23/24 07:40 Dose: 25 mg Documented By: MIKE Bupropion HCl (Bupropion Hcl Xl 150 Mg Tab.Er.24h) 150 mg PO DAILY [facility] Last Admin: 02/23/24 07:40 Dose: 150 mg Documented By: MIKE Bupropion HCl (Bupropion Hcl Xl 300 Mg Tab.Er.24h) 300 mg PO DAILY [facility] Last Admin: 02/23/24 07:41 Dose: 300 mg Documented By: MIKE Calcium Carbonate (Calcium Carbonate 750 Mg Tab.Chew) 750 mg PO Q4H PRN PRN Reason: Heartburn Docusate Sodium (Docusate Sodium 100 Mg Capsule) 100 mg PO BID [facility] Last Admin: 02/23/24 07:40 Dose: 100 mg Documented By: MIKE Doxazosin Mesylate (Doxazosin Mesylate 2 Mg Tablet) 2 mg PO BEDTIME [facility]; Protocol Last Admin: 02/22/24 19:39 Dose: 2 mg Documented By: KLEBER Duloxetine HCl (Duloxetine Hcl 60 Mg Capsule.Dr) 60 mg PO DAILY [facility] Last Admin: 02/23/24 07:40 Dose: 60 mg Documented By: MIKE Enoxaparin Sodium (Enoxaparin Sodium 40 Mg/0.4 Ml Syringe) 40 mg SUBCUT Q24H [facility] Last Admin: 02/23/24 10:23 Dose: 40 mg Documented By: MIKE Ergocalciferol (Ergocalciferol (Vitamin D2) 1,250 Mcg Capsule) 1,250 mcg PO MO [facility] Last Admin: 02/19/24 13:16 Dose: 1,250 mcg Documented By: CHIKI Folic Acid (Folic Acid 1 Mg Tablet) 1 mg PO DAILY [facility] Last Admin: 02/23/24 07:39 Dose: 1 mg Documented By: MIKE Furosemide (Furosemide 20 Mg Tablet) 20 mg PO DAILY [facility]; Protocol Last Admin: 02/23/24 07:40 Dose: 20 mg Documented By: MIKE Levothyroxine Sodium (Levothyroxine Sodium 50 Mcg Tablet) 50 mcg PO DAILY@0630 [facility] Last Admin: 02/23/24 05:55 Dose: 50 mcg Documented By: KLEBER Lidocaine (Lidocaine 4 % Patch Adh..Patch) 1 patch TRANSDERMA DAILY [facility]; Protocol Last Admin: 02/23/24 07:44 Dose: Not Given Documented By: MIKE Non-Admin Reason: Patient Refused Magnesium Hydroxide (Milk Of Magnesia 30 Ml Oral.Susp) 30 ml PO DAILY PRN PRN Reason: Constipation Melatonin (Melatonin 3 Mg Tablet) 6 mg PO BEDTIME PRN PRN Reason: Insomnia Last Admin: 02/21/24 21:49 Dose: 6 mg Documented By: GILLIAN Meropenem (Meropenem 1 Gm Vial) 1 gm IVPUSH Q12H [facility] Last Admin: 02/23/24 10:23 Dose: 1 gm Documented By: MIKE Methotrexate (Methotrexate Sodium 2.5 Mg Tablet) 25 mg PO MO [facility] Morphine Sulfate (Morphine Sulfate 4 Mg/Ml Cartridge) 2 mg IVPUSH Q4H PRN; Protocol PRN Reason: Pain, Severe (Pain Scale 7-10) Last Admin: 02/23/24 10:23 Dose: 2 mg Documented By: MIKE Omeprazole (Omeprazole 40 Mg Capsule.) 40 mg PO DAILY@0630 [facility] Last Admin: 02/23/24 05:55 Dose: 40 mg Documented By: KLEBER Ondansetron HCl (Ondansetron Hcl 4 Mg/2 Ml Vial) 4 mg IVPUSH Q8H PRN PRN Reason: Nausea and Vomiting Oxycodone HCl (Oxycodone Hcl Immed Release 5 Mg Tablet) 20 mg PO Q4H [facility] Last Admin: 02/23/24 07:39 Dose: 20 mg Documented By: MIKE Polyethylene Glycol (Polyethylene Glycol 3350 17 Gm Powd.Pack) 17 gm PO DAILY PRN PRN Reason: Constipation Prednisone (Prednisone 1 Mg Tablet) 4 mg PO DAILY [facility] Last Admin: 02/23/24 07:39 Dose: 4 mg Documented By: MIKE Prednisone (Prednisone 5 Mg Tablet) 5 mg PO DAILY PRN PRN Reason: arthritis flare Pregabalin (Pregabalin 200 Mg Capsule) 200 mg PO BID [facility] Last Admin: 02/23/24 07:39 Dose: 200 mg Documented By: MIKE Sodium Chloride (0.9 % Sodium Chloride Flush 3 Ml Syringe) 3 ml IVFLUSH QSHIFT [facility] Last Admin: 02/23/24 07:41 Dose: 3 ml Documented By: MIKE Labs 02/19/24 01:13 02/19/24 01:13 Assessment and Plan (1) Periprosthetic fracture around internal prosthetic left knee joint: Status: Acute Assessment and Plan: 73yo F with HTN, COPD, RA on prednisone + MTX, hypothyroidism, 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 Did not take nitrofurantoin prescribed appropriately. Presenting with 2 days of intermittent somnolence and agitation along with disorientation. Concern for UTI vs excess opioid use. Toxic-metabolic encepahalopathy seems more clear CTA of head done today without acute findings continue to treat UTI-Discussed with ID. Encephalopathy likely unrelated to urine however we will continue antibiotics until urine culture finalized 2.Chronic pain w/opioid dependence secondary to RA - doing well with 15 mg of oxycodone q.4 PRN -we will continue same and follow 2.ESBL- UTI-continue ertapenem( intiated 02/19/24); inadequate treat met with orals. Given improvement when mentation with minimal reduction of opiates continue antibiotics pending culture. 3.RA(steroid dependent) -continue outpatient dosing as ordered 4.HTN-acceptable control on current therapies adjust as indicated 5.COPD- no acute issues this admission Full code Lovenox Requires ongoing hospitalization for IV antibiotics pending urine culture Quality Stroke Does the patient have a stroke diagnosis?: No VTE Prior VTE?: No VTE Risk Level:: Medical - moderate - high VTE Device Contraindication: Treatment Not Indicated VTE Drug Contraindication: N/A - Med Ordered
[2024-02-23 15:41] VITALS: BP 138/68; PULSE 65; RESP 16; TEMP 36.5; O2SAT 95
[2024-02-23 19:59] VITALS: BP 141/88; PULSE 67; RESP 18; TEMP 37.1; O2SAT 94
[2024-02-23] MEDS: Doxazosin Mesylate 2 MG TABLET PO (21:34)
[2024-02-23] MEDS: Melatonin 3 MG TABLET 6 MG PO (21:39)
--- NOTE | 2024-02-23 22:02 | P.CNID_ITS ---
History of Present Illness Data of Consult Service Date: 02/23/24 Requesting physician: Martin Louie Primary Care Provider: Namita Acosta NP HPI Reason for consult: esbl Ecoli in urine She presents with weakness and discomfort right leg. She has said she cannot walk well since legs wont work and she is falling. She has absolutely no urinary symptoms including no fever,dysuria or hematuria at all. She has no confusion. Review of Systems 2 Review of Systems: Yes all other systems are reviewed and are negative [facility] Past Medical History Medical History (Updated 02/23/24 @ 22:08 by Gege Jesus MD) Bacteriuria Urinary tract infection due to extended-spectrum beta lactamase (ESBL) producing Escherichia coli History of ESBL E. coli infection Osteomyelitis COPD (chronic obstructive pulmonary disease) Rheumatoid lung Hypothyroidism Congestive heart failure Fibromyalgia HTN (hypertension) Depression Rheumatoid arthritis Family History Family History Father No problems noted. Other Heart disease Family history: reviewed and not pertinent Surgical History Surgical History Hx of prior ablation treatment Knee joint replacement status Social History Social History Household Members: None Household Members Other:: 0 Housing: Apartment Do you presently have visiting nurse or other home services: Yes ([employer] assistance with cleaning, cooking, shopping daily) Unable to assess alcohol history related to: Unknown Alcohol intake: never Patient Tobacco Use Status: Former Tobacco user Tobacco use type: Cigarette Smoked in Last 30 Days: No e-Cigarette/Vaping Use: Never Used Patient Interested in Nicotine Replacement: No Patient Given Instructions on How to Stop Smoking: No Second Hand Smoke Exposure: No Use of substances other than those prescribed or required for medical reasons: No Currently Displaying Signs/Symptoms of Drug Intoxication Withdrawal: No Have you been hit, kicked, punched, or otherwise hurt by someone within the past year? If so, by whom?: No Do you feel safe in your current relationship?: Yes Is there a partner from a previous relationship who is making you feel unsafe now?: No Are you made to feel afraid or neglected: No Advance Directives: No Advance Directives Information Provided: Yes Do you have a plan to hurt others: No Plan Recently lost weight without trying: No Eating poorly because of decreased appetite: No Nutrition Risks: No Nutritional Risk Patient : No : No Poor oral hygiene: No service: No Meds Allergies Allergy/AdvReac Type Severity Reaction Status Date / Time lisinopril [LISINOPRIL] Allergy Severe ANAPHYLAXIS Verified 02/19/24 00:16 Sulfa (Sulfonamide Allergy Intermediate RASH Verified 02/19/24 00:16 Antibiotics) [SULFA (SULFONAMIDE ANTIBIOTICS)] tramadol [TRAMADOL] Allergy Intermediate RASH Verified 02/19/24 00:16 [id number] Reductase Allergy Rash Verified 02/19/24 00:16 Inhibitor [Bqwfvoz-Xgr-Chh Reductase Inhibitor] hydrochlorothiazide [HCTZ] AdvReac Unknown ABNORMAL Verified 02/19/24 00:16 LABS? Active Medications: Current Medications Acetaminophen (Acetaminophen 325 Mg Tablet) 650 mg PO Q6H PRN PRN Reason: Pain, Mild (Pain Scale 1-3), fever or headache Albuterol Sulfate (Albuterol Sulfate 90 Mcg 8 Gm Inhaler) 2 puff INHALE RQ6H PRN PRN Reason: wheezing Amlodipine Besylate (Amlodipine Besylate 2.5 Mg Tablet) 2.5 mg PO DAILY [facility]; Protocol Last Admin: 02/23/24 07:40 Dose: 2.5 mg Atenolol (Atenolol 25 Mg Tablet) 25 mg PO DAILY [facility]; Protocol Last Admin: 02/23/24 07:40 Dose: 25 mg Bupropion HCl (Bupropion Hcl Xl 150 Mg Tab.Er.24h) 150 mg PO DAILY [facility] Last Admin: 02/23/24 07:40 Dose: 150 mg Bupropion HCl (Bupropion Hcl Xl 300 Mg Tab.Er.24h) 300 mg PO DAILY [facility] Last Admin: 02/23/24 07:41 Dose: 300 mg Calcium Carbonate (Calcium Carbonate 750 Mg Tab.Chew) 750 mg PO Q4H PRN PRN Reason: Heartburn Docusate Sodium (Docusate Sodium 100 Mg Capsule) 100 mg PO BID [facility] Last Admin: 02/23/24 21:34 Dose: 100 mg Doxazosin Mesylate (Doxazosin Mesylate 2 Mg Tablet) 2 mg PO BEDTIME [facility]; Protocol Last Admin: 02/23/24 21:34 Dose: 2 mg Duloxetine HCl (Duloxetine Hcl 60 Mg Capsule.Dr) 60 mg PO DAILY [facility] Last Admin: 02/23/24 07:40 Dose: 60 mg Enoxaparin Sodium (Enoxaparin Sodium 40 Mg/0.4 Ml Syringe) 40 mg SUBCUT Q24H [facility] Last Admin: 02/23/24 10:23 Dose: 40 mg Ergocalciferol (Ergocalciferol (Vitamin D2) 1,250 Mcg Capsule) 1,250 mcg PO MO [facility] Last Admin: 02/19/24 13:16 Dose: 1,250 mcg Folic Acid (Folic Acid 1 Mg Tablet) 1 mg PO DAILY [facility] Last Admin: 02/23/24 07:39 Dose: 1 mg Furosemide (Furosemide 20 Mg Tablet) 20 mg PO DAILY [facility]; Protocol Last Admin: 02/23/24 07:40 Dose: 20 mg Levothyroxine Sodium (Levothyroxine Sodium 50 Mcg Tablet) 50 mcg PO DAILY@06 [facility] Last Admin: 02/23/24 05:55 Dose: 50 mcg Lidocaine (Lidocaine 4 % Patch Adh..Patch) 1 patch TRANSDERMA DAILY [facility]; Protocol Last Admin: 02/23/24 07:44 Dose: Not Given Magnesium Hydroxide (Milk Of Magnesia 30 Ml Oral.Susp) 30 ml PO DAILY PRN PRN Reason: Constipation Melatonin (Melatonin 3 Mg Tablet) 6 mg PO BEDTIME PRN PRN Reason: Insomnia Last Admin: 02/23/24 21:39 Dose: 6 mg Meropenem (Meropenem 1 Gm Vial) 1 gm IVPUSH Q12H [facility] Last Admin: 02/23/24 21:42 Dose: 1 gm Methotrexate (Methotrexate Sodium 2.5 Mg Tablet) 25 mg PO [facility] Morphine Sulfate (Morphine Sulfate 4 Mg/Ml Cartridge) 2 mg IVPUSH Q4H PRN; Protocol PRN Reason: Pain, Severe (Pain Scale 7-10) Last Admin: 02/23/24 10:23 Dose: 2 mg Omeprazole (Omeprazole 40 Mg Capsule.) 40 mg PO DAILY@30 [facility] Last Admin: 02/23/24 05:55 Dose: 40 mg Ondansetron HCl (Ondansetron Hcl 4 Mg/2 Ml Vial) 4 mg IVPUSH Q8H PRN PRN Reason: Nausea and Vomiting Oxycodone HCl (Oxycodone Hcl Immed Release 5 Mg Tablet) 20 mg PO Q4H [facility] Last Admin: 02/23/24 21:12 Dose: 20 mg Polyethylene Glycol (Polyethylene Glycol 3350 17 Gm Powd.Pack) 17 gm PO DAILY PRN PRN Reason: Constipation Prednisone (Prednisone 1 Mg Tablet) 4 mg PO DAILY [facility] Last Admin: 02/23/24 07:39 Dose: 4 mg Prednisone (Prednisone 5 Mg Tablet) 5 mg PO DAILY PRN PRN Reason: arthritis flare Pregabalin (Pregabalin 200 Mg Capsule) 200 mg PO BID [facility] Last Admin: 02/23/24 21:34 Dose: 200 mg Sodium Chloride (0.9 % Sodium Chloride Flush 3 Ml Syringe) 3 ml IVFLUSH QSHIFT [facility] Last Admin: 02/23/24 16:03 Dose: 3 ml Home Medications ?Medication ?Instructions ?Recorded ?Confirmed ?Last Taken ?Type albuterol sulfate 90 mcg/actuation 2 puff PO Q6H PRN wheezing 08/23/21 02/19/24 11/24/23 12:00 History aerosol inhaler bupropion HCl 300 mg 24 hr tablet, 300 mg PO DAILY 08/23/21 02/19/24 02/18/24 History extended release duloxetine 60 mg capsule,delayed 60 mg PO DAILY 08/23/21 02/19/24 02/18/24 History release ergocalciferol (vitamin D2) 1,250 1,250 mcg PO MO 08/23/21 02/19/24 02/12/24 History mcg (50,000 unit) capsule levothyroxine 50 mcg tablet 50 mcg PO DAILY@0630 08/23/21 02/19/24 02/18/24 History methotrexate sodium 2.5 mg tablet 10 tab PO MO 08/23/21 02/19/24 02/18/24 History omeprazole 40 mg capsule,delayed 40 mg PO DAILY@30 08/23/21 02/19/24 02/18/24 History release prednisone 1 mg tablet 4 tab PO DAILY 08/23/21 02/19/24 02/18/24 History prednisone 5 mg tablet 5 - 10 mg PO DAILY PRN arthritis 02/16/22 02/19/24 11/24/23 12:00 History flare pregabalin 200 mg capsule 200 mg PO BID 01/07/23 02/19/24 02/18/24 History folic acid 1 mg tablet 1 mg PO DAILY 10/13/23 02/19/24 02/18/24 History bupropion HCl 150 mg 24 hr tablet, 150 mg PO DAILY 11/25/23 02/19/24 02/18/24 History extended release oxycodone 20 mg tablet 20 mg PO Q6H 02/19/24 02/19/24 02/18/24 History Physical Exam 2 Vital Signs: Vital Signs: Last Vital Signs Temp 98.8 F 02/23/24 19:59 Pulse 67 02/23/24 19:59 Resp 18 02/23/24 19:59 BP 141/88 H 02/23/24 19:59 Pulse Ox 94 02/23/24 19:59 O2 Del Method Room Air 02/23/24 19:59 O2 Flow Rate 1 02/21/24 07:40 BMI result Body Mass Index 35.0 Results Labs 02/19/24 01:13 02/19/24 01:13 Microbiology Microbiology Results: Microbiology 02/20/24 Unknown Urine clean catch - Clean Catch Midstream Urine Culture - Final No growth. 02/19/24 08:58 Blood - Venous Blood Culture - Preliminary No growth after 48 hours. 02/19/24 08:35 Blood - Venous Blood Culture - Preliminary No growth after 48 hours. 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 Can stop Ertapenem (had four days already) and observe.
[2024-02-23 22:36] VITALS: RESP 18
[2024-02-24] MEDS: oxyCODONE HCl Immed Release 5 MG TABLET 20 MG PO ×6 (01:23→20:17)
[2024-02-24 03:31] VITALS: BP 133/63; PULSE 67; RESP 18; TEMP 36.5; O2SAT 95
[2024-02-24] MEDS: Levothyroxine Sodium 50 MCG TABLET PO (05:32)
[2024-02-24] MEDS: Omeprazole 40 MG CAPSULE.DR PO (05:32)
[2024-02-24 07:43] VITALS: BP 168/70; PULSE 72; RESP 13; TEMP 36.7; O2SAT 97
[2024-02-24] MEDS: 0.9 % Sodium Chloride Flush 3 ML SYRINGE IVFLUSH ×3 (09:27→20:18)
[2024-02-24] MEDS: 0.9 % Sodium Chloride Flush 10 ML SYRINGE 5 ML IVFLUSH ×3 (09:28→20:19)
[2024-02-24] MEDS: buPROPion HCl XL 300 MG TAB.ER.24H PO (09:31)
[2024-02-24] MEDS: Pregabalin 200 MG CAPSULE PO ×2 (09:31→20:17)
[2024-02-24 09:32] VITALS: BP 124/60
[2024-02-24] MEDS: predniSONE 1 MG TABLET 4 MG PO (09:32)
[2024-02-24] MEDS: atenoloL 25 MG TABLET PO (09:32)
[2024-02-24] MEDS: DULoxetine HCl 60 MG CAPSULE.DR PO (09:32)
[2024-02-24] MEDS: Furosemide 20 MG TABLET PO (09:32)
[2024-02-24] MEDS: amLODIPine Besylate 2.5 MG TABLET PO (09:32)
[2024-02-24] MEDS: buPROPion HCl XL 150 MG TAB.ER.24H PO (09:33)
[2024-02-24] MEDS: Enoxaparin Sodium 40 MG/0.4 ML SYRINGE SUBCUT (09:33)
[2024-02-24] MEDS: Folic Acid 1 MG TABLET PO (09:33)
[2024-02-24] MEDS: Docusate Sodium 100 MG CAPSULE PO (09:33)
[2024-02-24] MEDS: Morphine Sulfate 2 MG/ML CARTRIDGE IVPUSH ×3 (10:47→20:18)
--- NOTE | 2024-02-24 12:19 | HO.PM.IMPN ---
Subjective Subjective Date of Service: 02/24/24 Interval History: HTN Review of Systems pains seems improving no new c/o Physical Exam Vital Signs: Vital Signs: Last Vital Signs Temp 98.0 F 02/24/24 07:43 Pulse 72 02/24/24 07:43 Resp 13 02/24/24 07:43 BP 124/60 02/24/24 09:32 Pulse Ox 97 02/24/24 07:43 O2 Del Method Nasal Cannula 02/24/24 07:43 O2 Flow Rate 1 02/24/24 07:43 BMI result Body Mass Index 35.0 Appearance: Alert.? Oriented X3. cvs: rrr, [id number] . res: clear to auscultation ,no rhonchii or wheezing abd: no rebound or guarding ,nt, bs present. ext pulses present , no cyanosis . MS: left knee pain , ROM limited due to pain. neuro: axo3 , nonfocal. Objective Data Active Medications Acetaminophen (Acetaminophen 325 Mg Tablet) 650 mg PO Q6H PRN PRN Reason: Pain, Mild (Pain Scale 1-3), fever or headache Albuterol Sulfate (Albuterol Sulfate 90 Mcg 8 Gm Inhaler) 2 puff INHALE RQ6H PRN PRN Reason: wheezing Amlodipine Besylate (Amlodipine Besylate 2.5 Mg Tablet) 2.5 mg PO DAILY [facility]; Protocol Last Admin: 02/24/24 09:32 Dose: 2.5 mg Documented By: JOSE Atenolol (Atenolol 25 Mg Tablet) 25 mg PO DAILY [facility]; Protocol Last Admin: 02/24/24 09:32 Dose: 25 mg Documented By: JOSE Bupropion HCl (Bupropion Hcl Xl 150 Mg Tab.Er.24h) 150 mg PO DAILY [facility] Last Admin: 02/24/24 09:33 Dose: 150 mg Documented By: JOSE Bupropion HCl (Bupropion Hcl Xl 300 Mg Tab.Er.24h) 300 mg PO DAILY [facility] Last Admin: 02/24/24 09:31 Dose: 300 mg Documented By: JOSE Calcium Carbonate (Calcium Carbonate 750 Mg Tab.Chew) 750 mg PO Q4H PRN PRN Reason: Heartburn Docusate Sodium (Docusate Sodium 100 Mg Capsule) 100 mg PO BID [facility] Last Admin: 02/24/24 09:33 Dose: 100 mg Documented By: JOSE Doxazosin Mesylate (Doxazosin Mesylate 2 Mg Tablet) 2 mg PO BEDTIME [facility]; Protocol Last Admin: 02/23/24 21:34 Dose: 2 mg Documented By: FORTUNATO Duloxetine HCl (Duloxetine Hcl 60 Mg Capsule.) 60 mg PO DAILY [facility] Last Admin: 02/24/24 09:32 Dose: 60 mg Documented By: JOSE Enoxaparin Sodium (Enoxaparin Sodium 40 Mg/0.4 Ml Syringe) 40 mg SUBCUT Q24H [facility] Last Admin: 02/24/24 09:33 Dose: 40 mg Documented By: JOSE Ergocalciferol (Ergocalciferol (Vitamin D2) 1,250 Mcg Capsule) 1,250 mcg PO MO [facility] Last Admin: 02/19/24 13:16 Dose: 1,250 mcg Documented By: CHIKI Folic Acid (Folic Acid 1 Mg Tablet) 1 mg PO DAILY [facility] Last Admin: 02/24/24 09:33 Dose: 1 mg Documented By: JOSE Furosemide (Furosemide 20 Mg Tablet) 20 mg PO DAILY [facility]; Protocol Last Admin: 02/24/24 09:32 Dose: 20 mg Documented By: JOSE Levothyroxine Sodium (Levothyroxine Sodium 50 Mcg Tablet) 50 mcg PO DAILY@0630 [facility] Last Admin: 02/24/24 05:32 Dose: 50 mcg Documented By: FORTUNATO Lidocaine (Lidocaine 4 % Patch Adh..Patch) 1 patch TRANSDERMA DAILY [facility]; Protocol Last Admin: 02/24/24 09:34 Dose: Not Given Documented By: JOSE Non-Admin Reason: Patient Refused Magnesium Hydroxide (Milk Of Magnesia 30 Ml Oral.Susp) 30 ml PO DAILY PRN PRN Reason: Constipation Melatonin (Melatonin 3 Mg Tablet) 6 mg PO BEDTIME PRN PRN Reason: Insomnia Last Admin: 02/23/24 21:39 Dose: 6 mg Documented By: FORTUNATO Methotrexate (Methotrexate Sodium 2.5 Mg Tablet) 25 mg PO MO [facility] Omeprazole (Omeprazole 40 Mg Capsule.) 40 mg PO DAILY@0630 [facility] Last Admin: 02/24/24 05:32 Dose: 40 mg Documented By: FORTUNATO Ondansetron HCl (Ondansetron Hcl 4 Mg/2 Ml Vial) 4 mg IVPUSH Q8H PRN PRN Reason: Nausea and Vomiting Oxycodone HCl (Oxycodone Hcl Immed Release 5 Mg Tablet) 20 mg PO Q4H [facility] Last Admin: 02/24/24 09:30 Dose: 20 mg Documented By: JOSE Polyethylene Glycol (Polyethylene Glycol 3350 17 Gm Powd.Pack) 17 gm PO DAILY PRN PRN Reason: Constipation Prednisone (Prednisone 1 Mg Tablet) 4 mg PO DAILY [facility] Last Admin: 02/24/24 09:32 Dose: 4 mg Documented By: JOSE Prednisone (Prednisone 5 Mg Tablet) 5 mg PO DAILY PRN PRN Reason: arthritis flare Pregabalin (Pregabalin 200 Mg Capsule) 200 mg PO BID [facility] Last Admin: 02/24/24 09:31 Dose: 200 mg Documented By: JOSE Sodium Chloride (0.9 % Sodium Chloride Flush 3 Ml Syringe) 3 ml IVFLUSH QSHIFT [facility] Last Admin: 02/24/24 09:27 Dose: 3 ml Documented By: JOSE Sodium Chloride (0.9 % Sodium Chloride Flush 10 Ml Syringe) 5 ml IVFLUSH TID [facility] Last Admin: 02/24/24 09:28 Dose: 5 ml Documented By: JOSE Labs 02/19/24 01:13 02/19/24 01:13 Microbiology Microbiology Results: Microbiology 02/19/24 08:58 Blood Culture - Final Blood - Venous No growth after 5 days. 02/19/24 08:35 Blood Culture - Final Blood - Venous No growth after 5 days. 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 Did not take nitrofurantoin prescribed appropriately. Presenting with 2 days of intermittent somnolence and agitation along with disorientation. Concern for UTI vs excess opioid use. Toxic-metabolic encepahalopathy-resolved. CTA of head done today without acute findings d/w Id -no confusion , no bacteremia no urinary complaints, possibly urine culture chronic colonization, will stop antibiotics Chronic pain w/opioid dependence secondary to RA - doing well with 15 mg of oxycodone q.4 PRN -we will continue same and follow ESBL- UTI-continue ertapenem( intiated 02/19/24); inadequate treat met with orals. Given improvement when mentation with minimal reduction of opiates continue antibiotics pending culture. RA(steroid dependent) -continue outpatient dosing as ordered HTN-acceptable control on current therapies adjust as indicated COPD- no acute issues this admission Full code Lovenox Requires ongoing hospitalization: awaiting placement. Quality Stroke Does the patient have a stroke diagnosis?: No VTE Prior VTE?: No VTE Risk Level:: Medical - moderate - high VTE Device Contraindication: Treatment Not Indicated VTE Drug Contraindication: N/A - Med Ordered
[2024-02-24 15:24] VITALS: BP 146/72; PULSE 66; RESP 16; TEMP 37.3; O2SAT 93
[2024-02-24 19:10] VITALS: BP 133/66; PULSE 67; RESP 18; TEMP 36.5; O2SAT 93
[2024-02-24] MEDS: Doxazosin Mesylate 2 MG TABLET PO (20:17)
[2024-02-24] MEDS: Melatonin 3 MG TABLET 6 MG PO (20:21)
[2024-02-25] MEDS: oxyCODONE HCl Immed Release 5 MG TABLET 20 MG PO ×6 (01:38→22:30)
[2024-02-25 02:43] VITALS: BP 139/61; PULSE 67; RESP 16; TEMP 36.6; O2SAT 93
[2024-02-25] MEDS: Levothyroxine Sodium 50 MCG TABLET PO (05:56)
[2024-02-25] MEDS: Omeprazole 40 MG CAPSULE.DR PO (05:56)
[2024-02-25] MEDS: Acetaminophen 325 MG TABLET 650 MG PO (06:00)
[2024-02-25 07:28] VITALS: BP 150/70; PULSE 67; RESP 16; TEMP 36.8; O2SAT 95
[2024-02-25] MEDS: polyethylene glycoL 3350 17 GM POWD.PACK PO ×2 (09:52→22:27)
[2024-02-25] MEDS: predniSONE 1 MG TABLET 4 MG PO (09:52)
[2024-02-25] MEDS: amLODIPine Besylate 2.5 MG TABLET PO (09:52)
[2024-02-25] MEDS: Folic Acid 1 MG TABLET PO (09:53)
[2024-02-25] MEDS: Furosemide 20 MG TABLET PO (09:53)
[2024-02-25] MEDS: buPROPion HCl XL 300 MG TAB.ER.24H PO (09:53)
[2024-02-25] MEDS: buPROPion HCl XL 150 MG TAB.ER.24H PO (09:53)
[2024-02-25] MEDS: Docusate Sodium 100 MG CAPSULE PO ×2 (09:53→22:27)
[2024-02-25] MEDS: atenoloL 25 MG TABLET PO (09:53)
[2024-02-25] MEDS: Pregabalin 200 MG CAPSULE PO ×2 (09:53→22:29)
[2024-02-25] MEDS: DULoxetine HCl 60 MG CAPSULE.DR PO (09:53)
[2024-02-25] MEDS: Lidocaine 4 % Patch ADH..PATCH 1 PATCH TRANSDERMA (09:54)
[2024-02-25] MEDS: Enoxaparin Sodium 40 MG/0.4 ML SYRINGE SUBCUT (09:55)
[2024-02-25] MEDS: 0.9 % Sodium Chloride Flush 3 ML SYRINGE IVFLUSH ×2 (09:56→22:31)
[2024-02-25] MEDS: 0.9 % Sodium Chloride Flush 10 ML SYRINGE 5 ML IVFLUSH ×3 (09:56→22:37)
--- NOTE | 2024-02-25 11:15 | HO.PM.IMPN ---
Subjective Subjective Date of Service: 02/25/24 Interval History: knee pain Review of Systems has some pain on/off no other new c/o Physical Exam Vital Signs: Vital Signs: Last Vital Signs Temp 98.3 F 02/25/24 07:28 Pulse 67 02/25/24 07:28 Resp 16 02/25/24 07:28 BP 150/70 H 02/25/24 07:28 Pulse Ox 95 02/25/24 07:28 O2 Del Method Room Air 02/25/24 07:28 O2 Flow Rate 1 02/24/24 07:43 BMI result Body Mass Index 35.0 Appearance: Alert.? Oriented X3. cvs: rrr, [id number] . res: clear to auscultation ,no rhonchii or wheezing abd: no rebound or guarding ,nt, bs present. ext pulses present , no cyanosis . MS: left knee pain , ROM limited due to pain. neuro: axo3 , nonfocal. Objective Data Active Medications Acetaminophen (Acetaminophen 325 Mg Tablet) 650 mg PO Q6H PRN PRN Reason: Pain, Mild (Pain Scale 1-3), fever or headache Last Admin: 02/25/24 06:00 Dose: 650 mg Documented By: CANDICE Albuterol Sulfate (Albuterol Sulfate 90 Mcg 8 Gm Inhaler) 2 puff INHALE RQ6H PRN PRN Reason: wheezing Amlodipine Besylate (Amlodipine Besylate 2.5 Mg Tablet) 2.5 mg PO DAILY [facility]; Protocol Last Admin: 02/25/24 09:52 Dose: 2.5 mg Documented By: MACARIO Atenolol (Atenolol 25 Mg Tablet) 25 mg PO DAILY [facility]; Protocol Last Admin: 02/25/24 09:53 Dose: 25 mg Documented By: MACARIO Bupropion HCl (Bupropion Hcl Xl 150 Mg Tab.Er.24h) 150 mg PO DAILY [facility] Last Admin: 02/25/24 09:53 Dose: 150 mg Documented By: MACARIO Bupropion HCl (Bupropion Hcl Xl 300 Mg Tab.Er.24h) 300 mg PO DAILY [facility] Last Admin: 02/25/24 09:53 Dose: 300 mg Documented By: MACARIO Calcium Carbonate (Calcium Carbonate 750 Mg Tab.Chew) 750 mg PO Q4H PRN PRN Reason: Heartburn Docusate Sodium (Docusate Sodium 100 Mg Capsule) 100 mg PO BID [facility] Last Admin: 02/25/24 09:53 Dose: 100 mg Documented By: MACARIO Doxazosin Mesylate (Doxazosin Mesylate 2 Mg Tablet) 2 mg PO BEDTIME [facility]; Protocol Last Admin: 02/24/24 20:17 Dose: 2 mg Documented By: CANDICE Duloxetine HCl (Duloxetine Hcl 60 Mg Capsule.Dr) 60 mg PO DAILY [facility] Last Admin: 02/25/24 09:53 Dose: 60 mg Documented By: MACARIO Enoxaparin Sodium (Enoxaparin Sodium 40 Mg/0.4 Ml Syringe) 40 mg SUBCUT Q24H [facility] Last Admin: 02/25/24 09:55 Dose: 40 mg Documented By: MACARIO Ergocalciferol (Ergocalciferol (Vitamin D2) 1,250 Mcg Capsule) 1,250 mcg PO MO [facility] Last Admin: 02/19/24 13:16 Dose: 1,250 mcg Documented By: CHIKI Folic Acid (Folic Acid 1 Mg Tablet) 1 mg PO DAILY [facility] Last Admin: 02/25/24 09:53 Dose: 1 mg Documented By: MACARIO Furosemide (Furosemide 20 Mg Tablet) 20 mg PO DAILY [facility]; Protocol Last Admin: 02/25/24 09:53 Dose: 20 mg Documented By: MACARIO Levothyroxine Sodium (Levothyroxine Sodium 50 Mcg Tablet) 50 mcg PO DAILY@0630 [facility] Last Admin: 02/25/24 05:56 Dose: 50 mcg Documented By: CANDICE Lidocaine (Lidocaine 4 % Patch Adh..Patch) 1 patch TRANSDERMA DAILY [facility]; Protocol Last Admin: 02/25/24 09:54 Dose: 1 patch Documented By: MACARIO Magnesium Hydroxide (Milk Of Magnesia 30 Ml Oral.Susp) 30 ml PO DAILY PRN PRN Reason: Constipation Melatonin (Melatonin 3 Mg Tablet) 6 mg PO BEDTIME PRN PRN Reason: Insomnia Last Admin: 02/24/24 20:21 Dose: 6 mg Documented By: CANDICE Methotrexate (Methotrexate Sodium 2.5 Mg Tablet) 25 mg PO MO [facility] Morphine Sulfate (Morphine Sulfate 2 Mg/Ml Cartridge) 2 mg IVPUSH Q4H PRN; Protocol PRN Reason: Pain, Severe (Pain Scale 7-10) Last Admin: 02/24/24 20:18 Dose: 2 mg Documented By: CANDICE Omeprazole (Omeprazole 40 Mg Capsule.Dr) 40 mg PO DAILY@0630 [facility] Last Admin: 02/25/24 05:56 Dose: 40 mg Documented By: CANDICE Ondansetron HCl (Ondansetron Hcl 4 Mg/2 Ml Vial) 4 mg IVPUSH Q8H PRN PRN Reason: Nausea and Vomiting Oxycodone HCl (Oxycodone Hcl Immed Release 5 Mg Tablet) 20 mg PO Q4H [facility] Last Admin: 02/25/24 09:54 Dose: 20 mg Documented By: MACARIO Polyethylene Glycol (Polyethylene Glycol 3350 17 Gm Powd.Pack) 17 gm PO BID [facility] Last Admin: 02/25/24 09:52 Dose: 17 gm Documented By: MACARIO Prednisone (Prednisone 1 Mg Tablet) 4 mg PO DAILY [facility] Last Admin: 02/25/24 09:52 Dose: 4 mg Documented By: MACARIO Prednisone (Prednisone 5 Mg Tablet) 5 mg PO DAILY PRN PRN Reason: arthritis flare Pregabalin (Pregabalin 200 Mg Capsule) 200 mg PO BID [facility] Last Admin: 02/25/24 09:53 Dose: 200 mg Documented By: MACARIO Sodium Biphosphate/Sodium Phosphate (Sodium Phosphate,[place]-Dibasic 133 Ml Enema) 133 ml [place] ONCE PRN PRN Reason: Constipation Sodium Chloride (0.9 % Sodium Chloride Flush 3 Ml Syringe) 3 ml IVFLUSH QSHIFT [facility] Last Admin: 02/25/24 09:56 Dose: 3 ml Documented By: MACARIO Sodium Chloride (0.9 % Sodium Chloride Flush 10 Ml Syringe) 5 ml IVFLUSH TID [facility] Last Admin: 02/25/24 09:56 Dose: 5 ml Documented By: MACARIO Labs 02/19/24 01:13 02/19/24 01:13 Microbiology Microbiology Results: Microbiology 02/19/24 08:58 Blood Culture - Final Blood - Venous No growth after 5 days. 02/19/24 08:35 Blood Culture - Final Blood - Venous No growth after 5 days. 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 Did not take nitrofurantoin prescribed appropriately. Presenting with 2 days of intermittent somnolence and agitation along with disorientation. Concern for UTI vs excess opioid use. Toxic-metabolic encepahalopathy-resolved. CTA of head done today without acute findings d/w Id -no confusion , no bacteremia no urinary complaints, possibly urine culture chronic colonization, will stop antibiotics . Chronic pain w/opioid dependence secondary to RA - doing well with 15 mg of oxycodone q.4 PRN -we will continue same and follow ESBL- UTI-continue ertapenem( intiated 02/19/24); inadequate treat met with orals. Given improvement when mentation with minimal reduction of opiates continue antibiotics pending culture. RA(steroid dependent) -continue outpatient dosing as ordered HTN-acceptable control on current therapies adjust as indicated COPD- no acute issues this admission Full code Lovenox Requires ongoing hospitalization: awaiting placement. Quality Stroke Does the patient have a stroke diagnosis?: No VTE Prior VTE?: No VTE Risk Level:: Medical - moderate - high VTE Device Contraindication: Treatment Not Indicated VTE Drug Contraindication: N/A - Med Ordered
[2024-02-25 16:00] VITALS: BP 143/62; PULSE 65; RESP 16; TEMP 37.2; O2SAT 95
[2024-02-25 19:51] VITALS: BP 138/64; PULSE 66; RESP 18; TEMP 36.4; O2SAT 93
[2024-02-25] MEDS: Melatonin 3 MG TABLET 6 MG PO (22:29)
[2024-02-25] MEDS: Doxazosin Mesylate 2 MG TABLET PO (22:30)
[2024-02-26] MEDS: oxyCODONE HCl Immed Release 5 MG TABLET 20 MG PO ×5 (03:14→21:52)
[2024-02-26 03:44] VITALS: BP 138/67; PULSE 68; RESP 18; TEMP 36.2; O2SAT 94
[2024-02-26] MEDS: Omeprazole 40 MG CAPSULE.DR PO (06:29)
[2024-02-26] MEDS: Morphine Sulfate 2 MG/ML CARTRIDGE IVPUSH ×2 (06:29→11:32)
[2024-02-26] MEDS: 0.9 % Sodium Chloride Flush 3 ML SYRINGE IVFLUSH (06:30)
[2024-02-26] MEDS: Levothyroxine Sodium 50 MCG TABLET PO (06:30)
[2024-02-26] MEDS: predniSONE 1 MG TABLET 4 MG PO (07:13)
[2024-02-26] MEDS: Lidocaine 4 % Patch ADH..PATCH 1 PATCH TRANSDERMA (07:13)
[2024-02-26] MEDS: atenoloL 25 MG TABLET PO (07:14)
[2024-02-26] MEDS: buPROPion HCl XL 300 MG TAB.ER.24H PO (07:14)
[2024-02-26] MEDS: Docusate Sodium 100 MG CAPSULE PO ×2 (07:14→21:11)
[2024-02-26] MEDS: Pregabalin 200 MG CAPSULE PO ×2 (07:14→21:11)
[2024-02-26] MEDS: buPROPion HCl XL 150 MG TAB.ER.24H PO (07:15)
[2024-02-26] MEDS: Acetaminophen 325 MG TABLET 650 MG PO ×3 (07:15→21:52)
[2024-02-26] MEDS: DULoxetine HCl 60 MG CAPSULE.DR PO (07:15)
[2024-02-26] MEDS: amLODIPine Besylate 2.5 MG TABLET PO (07:15)
[2024-02-26] MEDS: Furosemide 20 MG TABLET PO (07:15)
[2024-02-26] MEDS: Folic Acid 1 MG TABLET PO (07:15)
[2024-02-26] MEDS: polyethylene glycoL 3350 17 GM POWD.PACK PO ×2 (07:16→21:11)
[2024-02-26] MEDS: Enoxaparin Sodium 40 MG/0.4 ML SYRINGE SUBCUT (07:17)
[2024-02-26 07:18] VITALS: BP 157/72; PULSE 69; RESP 18; TEMP 36.6; O2SAT 99
[2024-02-26] MEDS: 0.9 % Sodium Chloride Flush 10 ML SYRINGE 5 ML IVFLUSH ×3 (07:18→22:10)
[2024-02-26] MEDS: metHOTREXate sodium 2.5 MG TABLET 25 MG PO (09:49)
--- NOTE | 2024-02-26 10:49 | HO.PM.IMPN ---
Subjective Subjective Date of Service: 02/26/24 Interval History: She's complaining of shoulder pain Physical Exam Vital Signs: Vital Signs: Last Vital Signs Temp 97.8 F 02/26/24 07:18 Pulse 69 02/26/24 07:18 Resp 18 02/26/24 07:18 BP 157/72 H 02/26/24 07:18 Pulse Ox 99 02/26/24 07:18 O2 Del Method Room Air 02/26/24 07:18 O2 Flow Rate 1 02/24/24 07:43 BMI result Body Mass Index 35.0 Objective Data Active Medications Acetaminophen (Acetaminophen 325 Mg Tablet) 650 mg PO Q6H PRN PRN Reason: Pain, Mild (Pain Scale 1-3), fever or headache Last Admin: 02/26/24 07:15 Dose: 650 mg Documented By: MIKE Albuterol Sulfate (Albuterol Sulfate 90 Mcg 8 Gm Inhaler) 2 puff INHALE RQ6H PRN PRN Reason: wheezing Amlodipine Besylate (Amlodipine Besylate 2.5 Mg Tablet) 2.5 mg PO DAILY [facility]; Protocol Last Admin: 02/26/24 07:15 Dose: 2.5 mg Documented By: MIKE Atenolol (Atenolol 25 Mg Tablet) 25 mg PO DAILY [facility]; Protocol Last Admin: 02/26/24 07:14 Dose: 25 mg Documented By: MIKE Bupropion HCl (Bupropion Hcl Xl 150 Mg Tab.Er.24h) 150 mg PO DAILY [facility] Last Admin: 02/26/24 07:15 Dose: 150 mg Documented By: MIKE Bupropion HCl (Bupropion Hcl Xl 300 Mg Tab.Er.24h) 300 mg PO DAILY [facility] Last Admin: 02/26/24 07:14 Dose: 300 mg Documented By: MIKE Calcium Carbonate (Calcium Carbonate 750 Mg Tab.Chew) 750 mg PO Q4H PRN PRN Reason: Heartburn Docusate Sodium (Docusate Sodium 100 Mg Capsule) 100 mg PO BID [facility] Last Admin: 02/26/24 07:14 Dose: 100 mg Documented By: MIKE Doxazosin Mesylate (Doxazosin Mesylate 2 Mg Tablet) 2 mg PO BEDTIME [facility]; Protocol Last Admin: 02/25/24 22:30 Dose: 2 mg Documented By: ANGELY Duloxetine HCl (Duloxetine Hcl 60 Mg Capsule.) 60 mg PO DAILY [facility] Last Admin: 02/26/24 07:15 Dose: 60 mg Documented By: MIKE Enoxaparin Sodium (Enoxaparin Sodium 40 Mg/0.4 Ml Syringe) 40 mg SUBCUT Q24H [facility] Last Admin: 02/26/24 07:17 Dose: 40 mg Documented By: MIKE Ergocalciferol (Ergocalciferol (Vitamin D2) 1,250 Mcg Capsule) 1,250 mcg PO MO [facility] Last Admin: 02/19/24 13:16 Dose: 1,250 mcg Documented By: MIRZAME Folic Acid (Folic Acid 1 Mg Tablet) 1 mg PO DAILY [facility] Last Admin: 02/26/24 07:15 Dose: 1 mg Documented By: MIKE Furosemide (Furosemide 20 Mg Tablet) 20 mg PO DAILY [facility]; Protocol Last Admin: 02/26/24 07:15 Dose: 20 mg Documented By: MIKE Levothyroxine Sodium (Levothyroxine Sodium 50 Mcg Tablet) 50 mcg PO DAILY@629 [facility] Last Admin: 02/26/24 06:30 Dose: 50 mcg Documented By: MIKE Lidocaine (Lidocaine 4 % Patch Adh..Patch) 1 patch TRANSDERMA DAILY [facility]; Protocol Last Admin: 02/26/24 07:13 Dose: 1 patch Documented By: MIKE Magnesium Hydroxide (Milk Of Magnesia 30 Ml Oral.Susp) 30 ml PO DAILY PRN PRN Reason: Constipation Melatonin (Melatonin 3 Mg Tablet) 6 mg PO BEDTIME PRN PRN Reason: Insomnia Last Admin: 02/25/24 22:29 Dose: 6 mg Documented By: ANGELY Methotrexate (Methotrexate Sodium 2.5 Mg Tablet) 25 mg PO MO [facility] Last Admin: 02/26/24 09:49 Dose: 25 mg Documented By: MIKE Morphine Sulfate (Morphine Sulfate 2 Mg/Ml Cartridge) 2 mg IVPUSH ONCE ONE; Protocol Stop: 02/26/24 10:48 Omeprazole (Omeprazole 40 Mg Capsule.) 40 mg PO DAILY@0630 [facility] Last Admin: 02/26/24 06:29 Dose: 40 mg Documented By: MIKE Ondansetron HCl (Ondansetron Hcl 4 Mg/2 Ml Vial) 4 mg IVPUSH Q8H PRN PRN Reason: Nausea and Vomiting Oxycodone HCl (Oxycodone Hcl Immed Release 5 Mg Tablet) 20 mg PO Q4H PRN PRN Reason: Pain, Severe (Pain Scale 7-10) Last Admin: 02/26/24 07:14 Dose: 20 mg Documented By: MIKE Polyethylene Glycol (Polyethylene Glycol 3350 17 Gm Powd.Pack) 17 gm PO BID [facility] Last Admin: 02/26/24 07:16 Dose: 17 gm Documented By: MIKE Prednisone (Prednisone 1 Mg Tablet) 4 mg PO DAILY [facility] Last Admin: 02/26/24 07:13 Dose: 4 mg Documented By: MIKE Prednisone (Prednisone 5 Mg Tablet) 5 mg PO DAILY PRN PRN Reason: arthritis flare Pregabalin (Pregabalin 200 Mg Capsule) 200 mg PO BID [facility] Last Admin: 02/26/24 07:14 Dose: 200 mg Documented By: MIKE Sodium Biphosphate/Sodium Phosphate (Sodium Phosphate,[place]-Dibasic 133 Ml Enema) 133 ml IN ONCE PRN PRN Reason: Constipation Sodium Chloride (0.9 % Sodium Chloride Flush 3 Ml Syringe) 3 ml IVFLUSH QSHIFT [facility] Last Admin: 02/26/24 06:30 Dose: 3 ml Documented By: MIKE Sodium Chloride (0.9 % Sodium Chloride Flush 10 Ml Syringe) 5 ml IVFLUSH TID [facility] Last Admin: 02/26/24 07:18 Dose: 5 ml Documented By: MIKE Labs 02/19/24 01:13 02/19/24 01:13 Assessment and Plan (1) Periprosthetic fracture around internal prosthetic left knee joint: Status: Acute Plan 73yo F with HTN, COPD, RA on prednisone + MTX, hypothyroidism, 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 Did not take nitrofurantoin prescribed appropriately. Presenting with 2 days of intermittent somnolence and agitation along with disorientation. Concern for UTI vs excess opioid use. Toxic-metabolic encepahalopathy-resolved. CTA of head negative d/w Id -no confusion , no bacteremia no urinary complaints, possibly urine culture chronic colonization, will stop antibiotics . Chronic pain w/opioid dependence secondary to RA - continue oxycodone ESBL- UTI- was on Ertapenem but stopped per ID recommendation as likely colonization. RA(steroid dependent) -continue outpatient dosing as ordered HTN--continue Norvasc COPD- no acute issues this admission Full code Lovenox Requires ongoing hospitalization: awaiting placement. Quality Stroke Does the patient have a stroke diagnosis?: No VTE Prior VTE?: No VTE Risk Level:: Medical - moderate - high VTE Device Contraindication: Treatment Not Indicated VTE Drug Contraindication: N/A - Med Ordered
[2024-02-26 11:09] VITALS: PULSE 75; O2SAT 93
--- NOTE | 2024-02-26 12:48 | MHC.CM.PN ---
per danilo pt is ready for dc ,expected bed at [facility] no longer avaliable new bed search initiated
[2024-02-26] MEDS: Ergocalciferol (Vitamin D2) 1,250 MCG CAPSULE 1250 MCG PO (13:26)
--- NOTE | 2024-02-26 14:06 | MHC.CM.PN ---
Addendum entered by Ina Patterson 02/26/24 16:14: PT IS AWARE [facility] HAS SUBMITTED FOR AUTH AND SHE CAN TRANSFER ONCE IT IS RECEIVED SHE ASKED CM TO CONTACT HER DAUGHTER/HCP, NOA BREWSTER [phone], HOWEVER THE CALL WENT TO AND THE MAILBOX WAS FULL Original Note: CM MET WITH PT WHO EXPRESSED CONCERNS ABOUT GOING TO REHAB PT REPORTS SHE IS NOT GOING TO STR UNLESS OXYCODONE IS ON BOARD SHE SAYS THE LAST TIME SHE WENT IT WAS 12 HOURS BEFORE THE SNF GOT HER MEDS CM EXPLAINED THAT IS ATYPICAL AND USUALLY THEY SHOULD HAVE MEDS ON HAND WITHIN 6 HOURS HOWEVER THEY CANNOT ORDER THE MEDS UNTIL PT IS THERE PER INSURANCE REGULATIONS. PT SAYS LONG THEY WILL HAVE HER MEDS SHE WILL GO TO STR, SHE ALSO STATES SHE FEELS SHE MAY WELL GO HOME BUT ACKNOWLEDGED SHE ONLY HAS HELP IN THE MORNING AND WOULD BE UNABLE TO CARE FOR HERSELF INDEPENDENTLY. PT WILL DC TO STR ONCE A BED IS SECURED
[2024-02-26 15:22] VITALS: BP 124/64; PULSE 68; RESP 20; TEMP 36.8; O2SAT 95
[2024-02-26 19:22] VITALS: BP 141/67; PULSE 65; RESP 20; TEMP 37; O2SAT 93
[2024-02-26] MEDS: Doxazosin Mesylate 2 MG TABLET PO (21:11)
--- NOTE | 2024-02-27 01:25 | PC.NURSE ---
midline is not flushing. MD aware
[2024-02-27 04:00] VITALS: BP 148/67; PULSE 67; RESP 18; TEMP 36.4; O2SAT 94
[2024-02-27] MEDS: Omeprazole 40 MG CAPSULE.DR PO (05:54)
[2024-02-27] MEDS: Levothyroxine Sodium 50 MCG TABLET PO (05:54)
[2024-02-27] MEDS: oxyCODONE HCl Immed Release 5 MG TABLET 20 MG PO ×3 (05:54→15:02)
[2024-02-27 07:11] VITALS: BP 147/67; PULSE 69; RESP 12; TEMP 36.2; O2SAT 92
[2024-02-27 10:44] VITALS: BP 147/67; PULSE 69; O2SAT 92
[2024-02-27] MEDS: Lidocaine 4 % Patch ADH..PATCH 1 PATCH TRANSDERMA (11:36)
[2024-02-27] MEDS: polyethylene glycoL 3350 17 GM POWD.PACK PO (11:36)
[2024-02-27 11:37] VITALS: BP 162/73; PULSE 70
[2024-02-27] MEDS: atenoloL 25 MG TABLET PO (11:37)
[2024-02-27] MEDS: Furosemide 20 MG TABLET PO (11:39)
--- NOTE | 2024-02-27 11:39 | MHC.CM.PN ---
pt to [facility] today at 3 dgter lalo notified of dc
[2024-02-27] MEDS: predniSONE 1 MG TABLET 4 MG PO (11:40)
[2024-02-27] MEDS: buPROPion HCl XL 300 MG TAB.ER.24H PO (11:43)
[2024-02-27] MEDS: DULoxetine HCl 60 MG CAPSULE.DR PO (11:43)
[2024-02-27] MEDS: buPROPion HCl XL 150 MG TAB.ER.24H PO (11:43)
[2024-02-27] MEDS: Folic Acid 1 MG TABLET PO (11:44)
[2024-02-27] MEDS: amLODIPine Besylate 2.5 MG TABLET PO (11:44)
[2024-02-27] MEDS: Docusate Sodium 100 MG CAPSULE PO (11:46)
[2024-02-27 11:47] VITALS: RESP 16; TEMP 36.2; O2SAT 96
[2024-02-27] MEDS: 0.9 % Sodium Chloride Flush 3 ML SYRINGE IVFLUSH (11:48)
[2024-02-27] MEDS: Acetaminophen 325 MG TABLET 650 MG PO (11:52)
[2024-02-27] MEDS: Pregabalin 200 MG CAPSULE PO (11:57)
--- NOTE | 2024-02-27 13:26 | PM.DS ---
DS: Providers Provider Date of admission: 02/19/24 09:56 Primary care physician: Namita Acosta NP Consults: 02/19/24 09:49 Consult to Orthopedics Routine Consulting Provider: [facility] Reason for consultation: tibia plateau fracture Has provider been notified: No 02/23/24 08:56 Consult to Infectious Diseases Routine Consulting Provider: [facility] Reason for consultation: Emblem uti Has provider been notified: No DS: Diagnosis Discharge Diagnosis (1) Periprosthetic fracture around internal prosthetic left knee joint: Status: Acute DS: Summary Hospital Course Hospital Course: admission hpi Chief Complaint: Fever and altered mental status 74yo F with HTN, COPD, RA on prednisone + MTX, hypothyroidism, mood disorder, chronic R tibial plateau fracture with TKA, fibromyalgia, and recurrent hx ESBL UTI last discharged from the hospital on 12/10/22 after 3 days stay for UTI and metabolic encephalopathy. She presents to the ED following a fall. She is wheelchair bound but able to independently transfer. Last evening while attempting to transfer, her knee gave out and she landed on the floor for about an hour. She has been having pain in the left knee and left shoulder for 2 days and has been taking oxycodone. Xray show an acute fracture of the medial aspect of the distal tibia adjacent to the medial condylar component of a total knee arthroplasty and Loosening of the tibial component of a left total knee prosthesis She has been given IV dilaudid following which she was confused, and had a temp of 100. and she reports that she gets confused with UTIs, UA is positive for UTI, she is giving ceftriaxone. Hospital course: 73-year-old female with a history of hypertension, COPD, rheumatoid arthritis (RA) on prednisone and methotrexate (MTX), hypothyroidism, chronic right tibial plateau fracture with total knee arthroplasty (TKA), fibromyalgia, mood disorder, and ESBL UTI, recently admitted after a fall with concern for ESBL UTI. She did not take the appropriately prescribed nitrofurantoin and presented with two days of intermittent somnolence, agitation, and disorientation. Evaluation raised concerns for UTI vs. excess opioid use. Toxic-metabolic encephalopathy ? resolved: CTA of the head was negative. Initially thought to be due to UTI, which was treated, but the rapid recovery suggests the presentation was more likely related to narcotic use. Bacteriuria: ESBL E. coli initially treated with ertapenem. ID later determined it was colonization and no further treatment was necessary. Chronic pain with opioid dependence secondary to RA: Continue oxycodone. Rheumatoid arthritis (steroid-dependent): -Continue outpatient prednisone dosing as prescribed. -Continue methotrexate. Hypertension: Continue Norvasc. COPD: No acute issues during this admission. Chronic pain: Continue oxycodone. Orthopedic findings: Minimally displaced subcortical/periprosthetic fracture of the medial metaphysis of the femur adjacent to the medial aspect of the femoral component. -Patient is primarily wheelchair-bound, does not ambulate, and pivots only for transfers. -Fta-dedvoo-lxfauqy (NWB) on the left lower extremity (LLE). -No acute orthopedic surgery recommended at this time. -Follow-up outpatient with her surgeon in [place], but she may follow up locally if unable to travel. Physical Exam Vital Signs: Vital Signs: Last Vital Signs Temp 97.2 F 02/27/24 11:47 Pulse 70 02/27/24 11:37 Resp 16 02/27/24 11:47 BP 162/73 H 02/27/24 11:37 Pulse Ox 96 02/27/24 11:47 O2 Del Method Room Air 02/27/24 11:47 O2 Flow Rate 1 02/24/24 07:43 BMI result Body Mass Index 35.0 Appearance: Alert.? Oriented X3. cvs: rrr, [id number] . res: clear to auscultation ,no rhonchii or wheezing abd: no rebound or guarding ,nt, bs present. ext pulses present , no cyanosis . MS: left knee pain , ROM limited due to pain. neuro: axo3 , nonfocal. DS: Data Data Completed and Pending Completed studies during hospitalization [Text1]: Procedures Insertion of Infusion Device into Right Cephalic Vein, Percutaneous Approach (10/13/23) Discharge Plan Discharge Anticipated Discharge Date/Time: 02/27/24 13:00 Patient Disposition: er SNF Discharge Diagnosis: Metabolic encephalopathy. 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 [Primary Care Provider] - 1 Week Discharge Medications: New amlodipine 2.5 mg Tablet 2.5 mg PO DAILY Qty: 30 0RF Protocol: Hold for SBP< HOLD for SBP < : 90 Continued omeprazole 40 mg capsule,delayed release(DR/EC) 40 mg PO DAILY@0630 methotrexate sodium 2.5 mg tablet 10 tab PO MO prednisone 1 mg tablet 4 tab PO DAILY levothyroxine 50 mcg tablet 50 mcg PO DAILY@0630 ergocalciferol (vitamin D2) 1,250 mcg (50,000 unit) capsule 1,250 mcg PO MO albuterol sulfate 90 mcg/actuation HFA aerosol inhaler 2 puff PO Q6H PRN (Reason: wheezing) bupropion HCl 300 mg tablet extended release 24 hr 300 mg PO DAILY duloxetine 60 mg capsule,delayed release(DR/EC) 60 mg PO DAILY ondansetron 4 mg tablet,disintegrating 4 mg PO Q8H PRN (Reason: nausea and vomiting) Qty: 10 0RF folic acid 1 mg tablet 1 mg PO DAILY atenolol 25 mg Tablet 25 mg PO DAILY Qty: 30 0RF Protocol: Hold for SBP/HR < HOLD for SBP < : 90 HOLD for HR < : 60 doxazosin 2 mg Tablet 2 mg PO BEDTIME Qty: 30 0RF Protocol: Hold for SBP< HOLD for SBP < : 90 furosemide 20 mg tablet 20 mg PO DAILY Qty: 30 0RF bupropion HCl 150 mg tablet extended release 24 hr 150 mg PO DAILY pregabalin 200 mg capsule 200 mg PO BID prednisone 5 mg tablet 5 - 10 mg PO DAILY PRN (Reason: arthritis flare) Changed oxycodone 20 mg tablet 20 mg PO Q4H PRN (Reason: pain (scale score 7-10)) Qty: 20 0RF Discharge Orders: Discharge Order (Routine); Ordered 02/27/24 Ordered By: Cameron Benavides Diet: Advance to usual diet Activity on Discharge: As tolerated Stand Alone Forms: Patient Portal Discharge page Print Language: Lithuanian Care Plan Goals: recovery from fall and fracture Health Concerns: periprosthetic fracture Plan of Treatment: To short term rehab, pain control Assessment: see above
[2024-02-27] MEDS: Enoxaparin Sodium 40 MG/0.4 ML SYRINGE SUBCUT (13:42)
[2024-02-27 15:44] VITALS: BP 141/76; PULSE 67; RESP 20; TEMP 36.2; O2SAT 94
== END 2024-02-27 16:30 | disposition skilled nursing facility (03) | DRG 562 ==
LOC: HO.ED 09:14 → HO.EDOVER 10:01 → HO.S3 10:44
PROVIDERS: Admitting Provider Internal Medicine; Emergency Provider Emergency Medicine; PCP Nurse Practitioner Adult Health; Visit Provider Internal Medicine
DX: S82.142A Displaced bicondylar fracture of left tibia, initial encounter for closed fracture (principal); G92.8 Other toxic encephalopathy; M97.12XA Periprosthetic fracture around internal prosthetic left knee joint, initial encounter; N39.0 Urinary tract infection, site not specified; F11.20 Opioid dependence, uncomplicated; Z16.12 Extended spectrum beta lactamase (ESBL) resistance; G89.29 Other chronic pain; I10 Essential (primary) hypertension; F39 Unspecified mood [affective] disorder; W19.XXXA Unspecified fall, initial encounter; J44.9 Chronic obstructive pulmonary disease, unspecified; M06.9 Rheumatoid arthritis, unspecified; B96.20 Unspecified Escherichia coli [E. coli] as the cause of diseases classified elsewhere; E03.9 Hypothyroidism, unspecified; Z99.3 Dependence on wheelchair; Z79.52 Long term (current) use of systemic steroids; Z79.631 Long term (current) use of antimetabolite agent; Z79.890 Hormone replacement therapy; Z79.899 Other long term (current) drug therapy
CPT/HCPCS: 36415; 73552; 73590; 73700; 80053; 81001; 82550; 82803; 83605; 83735; 84484; 85025; 87040; 87086; 87088; 87186; 93005; 93971; 97110; 97162; 97530; 99285; J0696; J1171; J1650; J2185; J2270

== ENCOUNTER → 2024-02-19 09:45 | Outpatient (BNV) | payer MEDICARE, MEDICAID, SELFPAY | PROVIDERS: Admitting Provider Internal Medicine; Emergency Provider Emergency Medicine; PCP Nurse Practitioner Adult Health; Visit Provider Internal Medicine | DX: R94.31 Abnormal electrocardiogram [ECG] [EKG] (principal); R41.82 Altered mental status, unspecified | CPT/HCPCS: 93010 ==

== ENCOUNTER → 2024-02-19 09:56 | Outpatient (BNV) | payer MEDICARE, MEDICAID, SELFPAY | PROVIDERS: Admitting Provider Internal Medicine; Emergency Provider Emergency Medicine; PCP Nurse Practitioner Adult Health; Visit Provider Physician Assistant | DX: M97.12XA Periprosthetic fracture around internal prosthetic left knee joint, initial encounter (principal) | CPT/HCPCS: 99222 ==

== ENCOUNTER → 2024-02-19 09:56 | Outpatient (BNV) | payer MEDICARE, MEDICAID, SELFPAY | PROVIDERS: Admitting Provider Internal Medicine; Emergency Provider Emergency Medicine; PCP Nurse Practitioner Adult Health; Visit Provider Internal Medicine | DX: M97.12XA Periprosthetic fracture around internal prosthetic left knee joint, initial encounter (principal) | CPT/HCPCS: 99231; 99232 ==

== ENCOUNTER → 2024-02-19 09:56 | Outpatient (BNV) | payer MEDICARE, MEDICAID, SELFPAY | PROVIDERS: Admitting Provider Internal Medicine; Emergency Provider Emergency Medicine; PCP Nurse Practitioner Adult Health; Visit Provider Internal Medicine | DX: M97.12XA Periprosthetic fracture around internal prosthetic left knee joint, initial encounter (principal); R82.71 Bacteriuria | CPT/HCPCS: 99222 ==

== ENCOUNTER 2024-03-03 17:32 | Emergency (ER) | payer MEDICARE, MEDICAID, SELFPAY ==
[2024-03-03 17:43] VITALS: BP 158/81; BP 192/86; PULSE 74; PULSE 75; RESP 16; TEMP 37.2; O2SAT 95; O2SAT 98; BMI 31.3
[2024-03-03 18:59] LABS: MANUAL DIFF FLAG NO
[2024-03-03 19:01] LABS: Basophils Percent Auto 0.2 % (0-2); Eosinophils Absolute Auto 0.2 X10*3/uL (0.0-0.4); Eosinophils Percent Auto 2.6 % (0-4); Hematocrit 37.6 % (37.0-47.0); Hemoglobin 12.7 g/dl (12.0-16.0); Imm Gran Abs Auto 0.03 X10*3/uL (0.00-0.03); Imm Gran Pct Auto 0.5 % (0.0-0.4); Lymphocytes Absolute Auto 1.7 X10*3/uL (1.2-4.9); Lymphocytes Percent Auto 27.2 % (20-40); Mean Corpuscular HGB Conc 33.8 g/dl (31.0-35.0); Mean Corpuscular Hemoglobin 30.8 pg (27.0-33.0); Mean Corpuscular Volume 91.3 fL (80.0-98.0); Mean Platelet Volume 9.9 fL (9.4-12.3); Monocytes Absolute Auto 0.5 X10*3/uL (0.1-1.2); Monocytes Percent Auto 8.6 % (2-11); Neutrophils Absolute Auto 3.7 x10*3/uL (2.0-8.3); Neutrophils Percent Auto 60.9 % (45-73); Platelet Count 237 X10*3/uL (160-400); Red Blood Count 4.12 X10*6/uL (4.20-5.50); Red Cell Distribution Width 15.1 % (11.0-16.0); White Blood Count 6.1 X10*3/uL (4.8-10.8)
[2024-03-03 19:02] LABS: Appearance Urine Turbid; Color Urine Yellow; Glucose Urine UA Negative (Negative); Leukocyte Esterase Urine Large (3+) (Negative); Nitrite Urine Positive (Negative); PH 5.5 (5.0-9.0); Specific Gravity - Urine 1.015 (1.005-1.025); UMIC TRIGGER UACC YES; Urine Blood Trace (Negative); Urine Ketones Negative (Negative); Urine Protein Negative (Neg-Trace)
--- NOTE | 2024-03-03 19:04 | PC.NURSE ---
assumed care of patient at this time, patient reporting 11/03 at this time. patient in stretcher watching tv bed locked and callbell within reach
[2024-03-03 19:08] VITALS: PULSE 70; RESP 16; TEMP 37; O2SAT 95
[2024-03-03 19:16] LABS: Alanine Aminotransferase 15 U/L (0-31); Albumin Level 3.5 g/dL (3.5-5.0); Alkaline Phosphatase 135 U/L (39-117); Anion Gap 15 (12-20); Aspartate Amino Transferase 22 U/L (5-31); Bilirubin Total 0.2 mg/dL (0.0-1.0); Blood Urea Nitrogen 23 mg/dL (9-16); Calcium 9.3 mg/dL (8.4-10.2); Carbon Dioxide 25 mmol/L (22-29); Chloride 105 mmol/L (96-108); Creatinine Clr Calc Pharmacy 51.5; Estimated Glomerular Filt Rate 47; Glucose Random 92 mg/dL (60-115); Potassium 4.1 mmol/L (3.3-5.1); Sodium 141 mmol/L (135-145); Total Protein 7.7 g/dL (6.5-8.0)
[2024-03-03 19:39] LABS: Bacteria Urine 4+ (None Seen); RBC Urine 0-2 /HPF (0-2); UACC Culture Trigger YES; WBC Urine >50 /HPF (0-5)
[2024-03-03] MEDS: oxyCODONE HCl Immed Release 5 MG TABLET 20 MG PO (20:41)
[2024-03-03 20:42] VITALS: BP 150/101; PULSE 70; RESP 18; TEMP 36.7; O2SAT 96
[2024-03-03 22:05] VITALS: BP 134/60; PULSE 76; RESP 18; TEMP 36.6; O2SAT 96
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
--- NOTE | 2024-03-03 23:18 | PC.NURSE ---
pt arrived, pain level to her knee is 4/10. last received medication oxycodone and is now starting to where off. No orders for medications are in the system. pt also states she wears 2l nc at sleep. order needed.
[2024-03-03 23:50] VITALS: BP 167/75; PULSE 73; RESP 16; TEMP 36.9; O2SAT 98
[2024-03-04] VITALS (9 sets, daily range): BP systolic 159–185; BP diastolic 68–83; PULSE 67–75; RESP 12–18; TEMP 36.6–36.9; O2SAT 95–96
[2024-03-04] MEDS: oxyCODONE HCl Immed Release 5 MG TABLET 20 MG PO ×6 (01:12→22:44)
--- NOTE | 2024-03-04 01:19 | PC.NURSE ---
pharmacy called to adjust the meds scheduled for 44. pt takes at 1000. per pharmacy not to document on it he will change it in the system.
--- NOTE | 2024-03-04 04:22 | PC.NURSE ---
pt has been sleeping, when awake pt states her pain in much better and is a 4/10. no additional medication requested
--- NOTE | 2024-03-04 05:30 | PC.NURSE ---
pt woke up range the phillips for more pain medication. hot pack given as well as prn oxycodone.
[2024-03-04] MEDS: Omeprazole 40 MG CAPSULE.DR PO (06:34)
[2024-03-04] MEDS: Levothyroxine Sodium 50 MCG TABLET PO (06:34)
--- NOTE | 2024-03-04 06:46 | PC.NURSE ---
pt has been medicated for left knee pain every 4 hours with po oxycodone 20 mg po. pt needs one assist to bedside commode for a pivot to commond. pt alert and oriented no s/s of distress.
[2024-03-04] MEDS: buPROPion HCl XL 150 MG TAB.ER.24H PO (09:41)
[2024-03-04] MEDS: buPROPion HCl XL 300 MG TAB.ER.24H PO (09:41)
[2024-03-04] MEDS: atenoloL 25 MG TABLET PO (09:41)
[2024-03-04] MEDS: Furosemide 20 MG TABLET PO (09:42)
[2024-03-04] MEDS: Folic Acid 1 MG TABLET PO (09:42)
[2024-03-04] MEDS: metHOTREXate sodium 2.5 MG TABLET 25 MG PO (09:43)
[2024-03-04] MEDS: Pregabalin 200 MG CAPSULE PO ×2 (09:44→22:09)
--- NOTE | 2024-03-04 10:02 | PC.NURSE ---
Morning med pass completed. Pyxis with no Vitamin D2 available--pharmacy contacted and awaiting delivery. Will administer upon arrival.
--- NOTE | 2024-03-04 10:06 | MHC.CM.ED ---
Received case management consult overnight. Patient came to the ER from [facility]. Patient stated she wasn't given her oxycodone as ordered. Per Clary [facility] A[facility]EN, patient has been fixated on her meds since she arrived at their facility. Clary met with patient on Monday at 1pm. Patient had no complaints at that time. Patient was at [facility] 02/18-02/26. Patient transferred to [facility] from [facility]. Met with patient in regards to discharge planning. Patient states she is on oxycodone every 4 hours and she needs to go to a facility that has these meds on hand. T/W explained SNFs are not allowed to order narcotics until patient is at their facility. Patient does not want to return to [facility]. Patient is agreeable to referral being broadcasted. Referral broadcasted within 15 miles of patient's home at this time. Continue to monitor for d/c needs.
[2024-03-04] MEDS: Ergocalciferol (Vitamin D2) 1,250 MCG CAPSULE 1250 MCG PO (11:04)
--- NOTE | 2024-03-04 12:54 | MHC.CM.ED ---
Addendum entered by Charo Vernon 03/04/24 13:23: [facility] is able to offer a bed and is in the process of obtaining ins auth. Original Note: Patient requested CM speak to her daughter. Spoke with Reagan via telephone at [phone]. Explained [facility], [facility] and [facility] are able to offer a bed. Waiting to hear from [facility], [facility] [place], [facility], and [facility]. Reagan feels [facility] is [facility]st choice. Waiting to hear if they are able to offer a bed. Continue to monitor for d/c needs.
--- NOTE | 2024-03-04 17:40 | PHA.MEDREC ---
Pharmacy Consult ? Medication Reconciliation Pharmacy has completed the medication reconciliation. List from [facility]
--- NOTE | 2024-03-04 19:31 | PC.NURSE ---
Assumed care of pt at 1900. PT resting quietly watching tv, and does not appear to be in acute distress at this time. PT denies pain, states she was recerntly medicated for pain and is comfortable. Safety precautions in place. Call phillips within reach. Plan of care ongoing.
--- NOTE | 2024-03-04 20:50 | PC.NURSE ---
PT noted she uses 2l NC at bedtime at home. Will notify provider for updated orders. PT also requesting all meds at 2200, including PRN oxycodone for pain.
[2024-03-04] MEDS: DULoxetine HCl 60 MG CAPSULE.DR PO (22:08)
[2024-03-04] MEDS: Doxazosin Mesylate 2 MG TABLET PO (22:09)
--- NOTE | 2024-03-04 22:09 | PC.NURSE ---
PT medicated as per MAY. Oxycodone pulled from [facility] but unable to administer until 2226. TW informed PT of this issue and will return in 20 minutes. PT agreeable
--- NOTE | 2024-03-04 22:36 | PC.NURSE ---
TW attempted to medicate PT for pain as reportedly earlier by pt. When tw entered pts room, Pt was sleeping and not arousable to name. PT appears comfortable, chest rising with respirations are even and unlabored. Call phillips within reach. Plan of care ongoing.
--- NOTE | 2024-03-05 00:10 | PC.NURSE ---
Report and handoff given to DILIP Rios
[2024-03-05] MEDS: oxyCODONE HCl Immed Release 5 MG TABLET 20 MG PO ×3 (02:45→14:06)
--- NOTE | 2024-03-05 03:23 | PC.NURSE ---
Resumed care at 0315. PT appears to be sleeping- chest wall rising, respirations even and unlabored. safety precautions in place, call phillips within reach. plan of care ongoing
[2024-03-05 05:05] VITALS: BP 161/83; PULSE 75; RESP 18
[2024-03-05] MEDS: Levothyroxine Sodium 50 MCG TABLET PO (06:54)
[2024-03-05] MEDS: Omeprazole 40 MG CAPSULE.DR PO (06:54)
--- NOTE | 2024-03-05 06:55 | PC.NURSE ---
pt assisted to commode by PRACTICE OFFICE ASSOCIATE, incontinent of stool. Reporting 9/10 pain. Medicated as per mar
[2024-03-05 07:50] VITALS: BP 174/84; PULSE 73; RESP 17; TEMP 37.1; O2SAT 96
[2024-03-05] MEDS: buPROPion HCl XL 150 MG TAB.ER.24H PO (08:45)
[2024-03-05] MEDS: Furosemide 20 MG TABLET PO (08:45)
[2024-03-05] MEDS: Folic Acid 1 MG TABLET PO (08:45)
[2024-03-05] MEDS: Pregabalin 200 MG CAPSULE PO (08:45)
[2024-03-05] MEDS: atenoloL 25 MG TABLET PO (08:45)
--- NOTE | 2024-03-05 08:48 | PC.NURSE ---
called pharmacy for Wellbutrin 300 mg not available in pyxis
[2024-03-05] MEDS: buPROPion HCl XL 300 MG TAB.ER.24H PO (08:53)
--- NOTE | 2024-03-05 10:04 | MHC.CM.ED ---
Addendum entered by Charo Vernon 03/05/24 13:16: Insurance auth has been obtained. Patient can leave at 5pm. Per Saima, [facility] will be able to get patient's oxycodone within 4 hours of patient arriving. Susana GONZALEZ booked. [facility] with chart. Patient, daughter ReaganMarixa RN and Arlette CHERRY aware. Original Note: Patient remains in ER overflow. Waiting for insurance auth so patient can transfer to [facility]. Continue to monitor for d/c needs.
[2024-03-05 15:43] VITALS: BP 153/67; PULSE 66; RESP 16; TEMP 36.6; O2SAT 96
[2024-03-05 16:57] VITALS: BP 153/67; PULSE 66; RESP 16; TEMP 36.6; O2SAT 96
== END 2024-03-05 16:58 | disposition skilled nursing facility (03) ==
PROVIDERS: Emergency Provider Emergency Medicine; PCP Internal Medicine
DX: S82.092A Other fracture of left patella, initial encounter for closed fracture (principal); G89.29 Other chronic pain; M97.12XA Periprosthetic fracture around internal prosthetic left knee joint, initial encounter; R26.2 Difficulty in walking, not elsewhere classified; J44.9 Chronic obstructive pulmonary disease, unspecified; I10 Essential (primary) hypertension; X58.XXXA Exposure to other specified factors, initial encounter; Y93.9 Activity, unspecified; Y92.9 Unspecified place or not applicable; Y99.8 Other external cause status; Z79.899 Other long term (current) drug therapy; Z87.440 Personal history of urinary (tract) infections; Z87.891 Personal history of nicotine dependence
CPT/HCPCS: 36415; 80053; 81001; 81003; 85025; 87086; 87088; 87186; 97161; 99285

== ENCOUNTER 2024-04-05 08:31 | Outpatient (REF) | payer MEDICARE, MEDICAID, SELFPAY ==
--- OUTSIDE RECORDS SUMMARY | 2024-04-08 08:45 | XMS_ITS | Continuity of Care Document ---
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 Plan of Treatment Reminders Order Date Submit Date Provider Last Modified By Organization Details Last Modified Time Details Appointments None record ed. Lab None record ed. Referral None record ed. Procedures None record ed. Surgeries None record ed. Imaging None record ed. Medication Orders None record ed. Patient TargetsNo targets recorded. Patient InstructionsNo instructions recorded. Reason for Referral None Reported. Problems Name Problem SNOMED Code Status Onset Date Resolution Date Notes Provider Name and Address Organization Details Recorded Time Metabolic encephalopathy 30061584 Active 2023 Flor Michel NP [address], [place], [address], [facility] [employer] [facility] 4 09:06:02 Bacteriuria 21784929 Active 2023 Flor Michel NP [address], [address], [place], [address], [facility] [employer] [facility] 4 09:06:42 Chronic pain 58937095 Active 2023 Flor Michel NP [address], [address], [place], [address], [facility] [employer] 4 09:06:51 Rheumatoid arthritis 73302356 Active 2023 Flor Michel NP [address], [address], [place], [address], [facility] [employer] 4 09:06:59 Essential hypertension 31298329 Active 2023 Flor Michel NP [address] [facility], [address], [place], [address], [facility] 4 09:07:06 Chronic obstructive pulmonary disease 60029918 Active 2023 Flor Michel NP [address] [facility], [address], [place], [address], [facility] 4 09:07:11 Fracture of femur 24738950 Active 2023 Flor Michel NP [address] [facility], [address], [place], [address], [facility] 4 09:08:02 Gastroesophage al reflux disease 387898190 Active 2023 Flor Michel NP [address] [facility], [address], [place], [address], [facility] 4 09:08:19 Depressive disorder 95286172 Active 2023 Flor Michel NP [address] [facility], [address], [place], [address], [facility] 4 09:08:43 Hypothyroidism 20453888 Active 2023 Flor Michel NP [address] [facility], [address], [place], [address], [facility] 4 09:17:20 Congestive heart failure 68131286 Active 2023 Flor Michel NP [address] [facility], [facility] [address], [place], [address], [facility] 4 09:28:03 Problem Notes None recorded. Medical Equipment None Reported. Allergies Allergen ID Allergen Name Allergen Category Reaction Reaction Severity Criticality Documentation Date Start Date Code Code System Note Provider Name and Address Organization Details Recorded Time [id number] lisinopri l medicatio n anaphylax is Not available unabletoasse ss 02/28/2024 45664 RxNorm Not Available Not Available Not Available [id number] [id number] Substance with sulfonami de structure and antibacte rial mechanism of action (substanc e) medicatio n rash Not available [facility] 02/28/2024 09892 8003 SNOMED Not Available Not Available Not Available [id number] 35c0f tramadol medicatio n rash Not available unabletoasse 02/28/2024 76497 RxNorm Not Available Not Available Not Available [id number] 35c0f Product containin g 3-hydroxy -3-methyl glutaryl- coenzyme A reductase inhibitor (product) medicatio n rash Not available unabletoasse 02/28/2024 80084 009 SNOMED Not Available Not Available Not Available [id number] 29b50 hydrochlo rothiazid e medicatio n other Not available unabletoasse 02/28/2024 5487 RxNorm ? adver se react ion with abnor mal labs Not Available Not Available Not Available Vitals Date Recorded Body weight Heart rate Respiratory rate Body temperature Oxygen saturation Oxygen saturation in Arterial blood by Pulse oximetry Systolic blood pressure Diastolic blood pressure Provider Name and Address Organization Details Last Updated DateTime 4 63747.4 7 g 87 /min 18 /min 97.5 [degF] 97 % 97 % 132 mm[Hg] 68 mm[Hg] Flor Michel NP [address] [facility], [facility] [address], [place], [address], [facility] 08:26:33 Social History Question Answer Notes LastModified by Organizat ion Details LastModified Time Tobacco Smoking Status Former Smoker Flor Michel NP [address] [facility], [facility] [address], [place], [address], [facility] 02/28/2024 09:04:02 Do You Have An Advance Directive? Yes Information not available 02/28/2024 What Is Your Level Of Alcohol Consumption? None Information not available 02/28/2024 What Is Your Code Status? Full Code Information not available 02/28/2024 What Was The Date Of Your Most Recent Tobacco Screening? 02/28/2024 Information not available 02/28/2024 Do You Have An Out Of Hospital DNR? No Information not available 02/28/2024 How Much Tobacco Do You Smoke? No See Above Information not available 02/28/2024 Do You Use Any Illicit Or Recreational Drugs? No Information not available 02/28/2024 Has Tobacco Cessation Counseling Been Provided? No Na Information not available 02/28/2024 Do You Have Any Dietary Restrictions? No Information not available 02/28/2024 Do You Or Have You Ever Used Any Other Forms Of Tobacco Or Nicotine? No Information not available 02/28/2024 Sex: Female Functional Status None recorded. Mental Status None recorded. Family History Nothing Reported Notes:Father and mother with heart disease Medical History No medical history recorded. Gynecological HistoryNo gynecological history recorded. Obstetrics History GPAL:G 0 P 0 0 0 0 Immunizations Vaccine Type Date Status Note Provider Nam e and Address Organization Details Recorded Time Pneumococcal conjugate PCV 13 0 [facility]/01/2024 12:57:19 pneumococcal polysaccharide PPV23 8 completed Analy [facility] 03/01/2024 12:57:36 influenza, unspecified formulation 2 completed Analy [facility] 03/01/2024 12:57:51 influenza, unspecified formulation 3 completed Analy [facility] 03/01/2024 12:58:01 influenza, unspecified formulation 4 completed Analy [facility] 03/01/2024 12:58:11 SARS-COV-2 (COVID-19) vaccine, UNSPECIFIED 1 completed [facility] [address] 03/01/2024 12:58:28 SARS-COV-2 (COVID-19) vaccine, UNSPECIFIED 1 completed [facility] [address] 03/01/2024 12:58:37 SARS-COV-2 (COVID-19) vaccine, UNSPECIFIED 2 completed [facility] [address] 03/01/2024 12:58:44 zoster, unspecified formulation 8 completed [facility] [address] 03/01/2024 12:59:01 Past Encounters Encounter ID Performer Location Encounter Start Date Encounter Closed Date Diagnosis/Indication Diagnosis SNOMED-CT Code Diagnosis ICD10 Code Diagnosis Note [id number] Flor Michel NP [facility] [address] [place] [address] 02/28/2024 08:21:30 02/29/2024 11:51:58 Metabolic encephalopathy 39738120 G93.41 felt resolved from abx from UTI or large amount of narcotics while in hosp resolved at d/cchanged from dilaudid to oxycodonem onitor for changes in ms Chronic pain 47050674 G8 9.29 with hx of fibromyalg ia and RA, lymphedema , and tibia fractureno te: ? if confused in hosp from dilaudid or UTIpregaba josie 200 mg po bidoxycodo ne 20 mg po q 4hours (was increased here by md from q 6-home dose 20mg po q 4)narcan prn unable to wake uppredniso ne 5 mg po daily prn arthritis flare and prednisone 4 mg qdmethotre xate 10 mg po qd mondaysdul oxetine 60 mg po qd ? pain or mood ecdvmrat59 /4 lidocaine patch to left knee am, left shoulder q pm. 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 for htnfurosem dereje 20 mg po qdmonitor bp, cardiac status Chronic ob structive pulmonary disease 72588945 J44.9 albuterol 2 puff po q 6 hours prn sob2 liters o2 at nocmonitor Depressive disorder 6338 9007 F32.A buproprion 450 mg qdduloxeti ne 60 mg qdpsych prn Gastroesop hageal reflux disease 280918490 K21.9 omeprazole 40 mg qdzofran 4 mg po q 8 prn n/vmonitor Hypothyroidism 68074387 E03.9 levothyrox ine 50 mcg qdtsh, free t4 prnmonitor Fracture of tibia 937131 02 S82.202D xray showing acute fracture of the medial aspect of the distal tibia adjacent to the medial condylar component of a total knee arthroplas ty and loosening of the tibial component of the left total knee prosthesis .wheelchai r bound with self transfer at baselinePT OT eval and treatShe is NWB on the left lower extremity and no ortho surgery recommende d.FU outpt with surgeon in [place] recommende d.see chronic pain for management ergocalcif dajuan 1250 mcg po mondaysmon itor for changes, increased pain, or need for referral earlier Congestive heart failure 70932915 I50.9 lasix 20 mg po qdmonitor vitals, cardiac status Asthenia 25350019 R53.1 PT OT eval and treatwheel chair at baseline with self transfers, NWB to left tibiamonit or Recurrent falls 57546167 2 R29.6 PT OT eval and treatwheel chair at baseline with self transfers, NWB to left tibiamonit or Health Concerns Section Related Observation LastModified by Organization Detai ls LastModified Time None Recorded Concern Status LastModified by Organization Details LastModified Time None Recorded Payers Encounter Date Sequence Insurance Name Policy Number Policy Hassan Covered Member ID Hassan Member ID Guarantor Name 02/28/2024 [facility] (MEDICARE REPLACEMENT/A DVANTAGE - PPO) [id number] Alexandrea Renee [id number] Alexandrea Renee Notes Date Note Type Note Provider Name and Address Organization Details Recorded Time 02/28/2024 text/html Pt is seen for a n initial intake note. Alexandrea is a 74 yr female with HTN, COPD, CHF, RA on prednisone and MTX, hypothyroidism, mood disorder, chronic R tibial plateau fracture with TKA, fibgromyalgia, and recurrent hx of ESBL UTI, whom is wheelchair bound but can transfer independently, who fell while transferring, diagnosed acute tibia periprosthetic fracture, UTI, metabolic encephalopathy, and pain management. Hospital workup: xray showing acute fracture of the medial aspect of the distal tibia adjacent to the medial condylar component of a total knee arthroplasty and loosening of the tibial component of the left total knee prosthesis. She is NWB on the left lower extremity and no ortho surgery recommended. FU outpt with surgeon in [place] recommended.Her pain was managed with dilaudid. She was confused, unclear if related to dilaudid or UTI, given ceftriaxone and ertapenem. CTA head negative for acute findings. She was not using nitrofurantoin. ID saw pt and determined she was colonized and no further treatment was necessary. On exam, Alexandrea is lying in bed getting ready up with PT for therapy today. She is alert and oriented x3. BIMS 15/25 and not confused. She states her pain is 5/10 at rest to the left knee moderately controlled. She does want her lidocaine patches to the left shoulder and knee reordered. She reviews the oxycodone wait for medication on admission was delayed, but now corrected. MOLST: full code, art nutrition short term, art hydration okay, dialysis undecided Flor Michel NP [address] [facility], [address], [place], [address], [facility] [employer] 02/28/2024 09:52:32 OBGyn Episode No OBEpisode recorded.
== END 2024-04-05 08:32 | disposition home or self-care (01) ==
LOC: HO.HOSX 08:31
PROVIDERS: Visit Provider Physician Assistant
DX: Z13.89 Encounter for screening for other disorder (principal)

== ENCOUNTER 2024-05-02 11:18 | Emergency (ER) | payer MEDICARE, MEDICAID, SELFPAY ==
--- NOTE | ~2024-05-02 | CT_ITS ---
EXAMINATION: CT HEAD WITHOUT IV CONTRAST HISTORY: confusion, disorientation. TECHNIQUE: Unenhanced helical CT of the head was performed per standard departmental protocol. Coronal and sagittal reformats of the head were also evaluated. One or more of the following techniques was used for dose reduction: Automated exposure control, adjustment of the mA and/or kV according to patient size, use of iterative reconstruction technique. DLP: 540 mGy-cm COMPARISON: Comparison is made with the prior examination dated 12/09/2023. FINDINGS: BRAIN: There is mild prominence of the ventricular system and cortical sulci, consistent with atrophy. Periventricular and subcortical white matter hypodensities are noted which are nonspecific, but often seen in the setting of small vessel ischemic disease. There is no mass effect or midline shift. No intra- or extra-axial fluid collections are identified. SINUSES: The visualized paranasal sinuses are clear. The mastoid air cells and middle ear cavities are well pneumatized. ORBITS: The visualized orbits are unremarkable. BONES/SOFT TISSUES: The extracranial soft tissues are unremarkable. The calvarium is intact. No suspicious lytic or sclerotic lesions. CT/CT head/brain wo IV con IMPRESSION: No acute intracranial abnormality. Electronically signed by: Phoenix Santos MD 05/02/2024 03:30 PM [facility]
[2024-05-02 11:34] VITALS: BP 156/81; PULSE 63; RESP 18; TEMP 36.7; O2SAT 97; BMI 31.3
--- NOTE | 2024-05-02 11:37 | ED.AMS ---
HPI - Altered Mental Status General Chief Complaint: Altered Mental Status Stated Complaint: quest uti Time Seen by Provider: 05/02/24 11:52 Source: patient and family Mode of arrival: ambulatory Limitations: no limitations History of Present Illness ED Provider: Dexter Gordon PA-C HPI narrative: 74 yo female with history of HTN, recurrent UTIs, history of ESBL E. Coli UTI, fibromyalgia, RA on MTX and prednisone, COPD, hypothyroidism, right tibial plateau fracture w/ total knee arthroplasty, hx chronic pain on chronic opiates who presents to the ER from home with her daughter for evaluation of confusion and disorientation with concern for another urinary tract infection. Symptoms started Monday with change in demeanor and intermittent confusion which is how she usually presents when she has a UTI. She ws able to get a urine sample to her PCP and was started on a cephalosporin which she has been taking since Monday evening. Confusion and disorientation persist. No fevers, abdominal pain, N/V/D. She has been eating and drinking normally. Daughter got a call from the PCP office today and was told the urine culture grew out a lot of organisms but also may be contaminated so unsure if they antibiotic they prescribed would actually be working and that she should come to the ER for further evaluation. MD complaint: confusion Onset (ago): day(s) (4) Timing confirmed by: family member Severity: moderate Consistency of symptoms: waxing and waning Associated symptoms: denies other symptoms Treatments prior to arrival: other (po abx) Related Data Home Medications ?Medication ?Instructions ?Recorded ?Confirmed bupropion HCl 300 mg 24 hr tablet, 300 mg PO DAILY 08/23/21 05/03/24 extended release duloxetine 60 mg capsule,delayed 60 mg PO DAILY 08/23/21 05/03/24 release ergocalciferol (vitamin D2) 1,250 1,250 mcg PO MO 08/23/21 05/03/24 mcg (50,000 unit) capsule levothyroxine 50 mcg tablet 50 mcg PO DAILY@62908/23/21 05/03/24 methotrexate sodium 2.5 mg tablet 10 tab PO MO 08/23/21 05/03/24 omeprazole 40 mg capsule,delayed 40 mg PO DAILY@62908/23/21 05/03/24 release prednisone 1 mg tablet 4 mg PO DAILY 08/23/21 05/03/24 prednisone 5 mg tablet 5 mg PO DAILY PRN arthritis pain 02/16/22 05/03/24 pregabalin 200 mg capsule 200 mg PO BID 01/07/23 05/03/24 folic acid 1 mg tablet 1 mg PO DAILY 10/13/23 05/03/24 bupropion HCl 150 mg 24 hr tablet, 150 mg PO DAILY 11/25/23 05/03/24 extended release acetaminophen 325 mg tablet 650 mg PO Q4H PRN Moderate Pain 03/04/24 05/03/24 (Tylenol) (Scale Score 5-6) bisacodyl 10 mg rectal suppository 10 mg PA DAILY PRN Constipation 03/04/24 05/03/24 ipratropium 20 mcg-albuterol 100 1 puff inhalation Q6H PRN 03/04/24 05/03/24 mcg/actuation mist for inhalation Shortness Of Breath Or Wheezing (Combivent Respimat) lidocaine HCl 4 % topical patch 1 patch topical BID PRN Pain 03/04/24 05/03/24 biotin 5,000 mcg sublingual tablet 5,000 mcg sublingual DAILY 05/03/24 05/03/24 ibuprofen 200 mg tablet 600 mg PO Q6H PRN Pain 05/03/24 05/03/24 melatonin 10 mg tablet 10 mg PO BEDTIME 05/03/24 05/03/24 multivitamin 1 tab PO DAILY 05/03/24 05/03/24 vitamin B complex 1 cap PO DAILY 05/03/24 05/03/24 Previous Rx's ?Medication ?Instructions ?Recorded ondansetron 4 mg disintegrating 4 mg PO Q8H PRN nausea and 08/02/23 tablet vomiting #10 tabs atenolol 25 mg tablet 25 mg PO DAILY #30 tabs 10/17/23 doxazosin 2 mg tablet 2 mg PO BEDTIME #30 tabs 10/17/23 furosemide 20 mg tablet 20 mg PO DAILY #30 tabs 10/17/23 oxycodone 20 mg tablet 20 mg PO Q4H PRN pain (scale score 02/27/24 7-10) #20 tabs Allergies Allergy/AdvReac Type Severity Reaction Status Date / Time lisinopril [LISINOPRIL] Allergy Severe ANAPHYLAXIS Verified 05/02/24 11:40 Sulfa (Sulfonamide Allergy Intermediate RASH Verified 05/02/24 11:40 Antibiotics) [SULFA (SULFONAMIDE ANTIBIOTICS)] tramadol [TRAMADOL] Allergy Intermediate RASH Verified 05/02/24 11:40 Mjectvy-APS-JtG Reductase Allergy Rash Verified 05/02/24 11:40 Inhibitor [Flyywve-Fhu-Efd Reductase Inhibitor] hydrochlorothiazide [HCTZ] AdvReac Unknown ABNORMAL Verified 05/02/24 11:40 LABS? Review of Systems Review of Systems: Yes all other systems are reviewed and are negative [facility] Past Medical History Medical History Bacteriuria Urinary tract infection due to extended-spectrum beta lactamase (ESBL) producing Escherichia coli History of ESBL E. coli infection Osteomyelitis COPD (chronic obstructive pulmonary disease) Rheumatoid lung Hypothyroidism Congestive heart failure Fibromyalgia HTN (hypertension) Depression Rheumatoid arthritis Surgical History Hx of prior ablation treatment Knee joint replacement status Family History Family History Father No problems noted. Other Heart disease Social History Social History Household Members: None Household Members Other:: 0 Housing: Apartment Do you presently have visiting nurse or other home services: Yes ([employer] assistance with cleaning, cooking, shopping daily) Unable to assess alcohol history related to: Unknown Alcohol intake: never Patient Tobacco Use Status: Former Tobacco user Tobacco use type: Cigarette e-Cigarette/Vaping Use: Never Used Second Hand Smoke Exposure: No Use of substances other than those prescribed or required for medical reasons: No Advance Directives: Yes Advance Directives on File: Yes Advance Directives Date on File: 09/29/23 Do you have a plan to hurt others: No Plan service: No Physical Exam ED Vital Signs: Vital Signs - 24 hr 05/02/24 13:24 05/02/24 15:49 05/02/24 17:37 Temperature 98 F 98.6 F Pulse Rate 62 62 68 Respiratory Rate 18 16 Blood Pressure 152/79 H 152/79 H 144/80 H Pulse Oximetry 96 96 97 Oxygen Delivery Method Room Air Room Air 05/02/24 20:07 05/02/24 22:00 05/03/24 02:30 Temperature 97.9 F 99.1 F Pulse Rate 73 78 Respiratory Rate 20 16 20 Blood Pressure 173/62 H 178/81 H Pulse Oximetry 95 96 Oxygen Delivery Method Room Air Room Air 05/03/24 09:46 05/03/24 09:53 Temperature 98.3 F Pulse Rate 68 68 Respiratory Rate 18 Blood Pressure 150/63 H 150/63 H Pulse Oximetry 94 Oxygen Delivery Method Room Air BMI result Body Mass Index 31.3 Appearance: Alert. Oriented X2. No acute distress. Head: normocephalic, atraumatic. Eyes: Pupils equal, round and reactive to light. ENT: Pharynx normal. No tonsillar swelling or exudate. Neck: Normal inspection. Neck supple. CVS: Normal heart rate and rhythm. Pulses normal. Respiratory: No respiratory distress. Breath sounds normal. Abdomen: Soft and nontender. +BS x4 Skin: Skin warm and dry. Normal skin color. Normal skin turgor. No rashes. Extremities: 2+ lower extremity edema, cool lower extremities. No joint swelling. Neuro/psych: Oriented X 2. Bilateral LE weakness, equal UE strength. No sensory deficit. CN II-XII intact. Blunted affect, confused. Course Course Course Narrative: This is a rapid medical exam performed by Adry Brantley PA-C. The patient is a 74-year-old female with a history of recurrent urinary tract infections, hypertension, who presents with concerns for UTI. The daughter is here at her side, the patient has been confused over the past week, there was concern for urinary tract infection she was placed on antibiotics which she started 4 days ago. The patient herself has no physical concerns or complaints. The patient is hemodynamically stable, she can return to the waiting room pending her full medical assessment. We will be ordering screening labs and a urinalysis. Reevaluation(s) Reevaluation #1: Physician observation started at 1500. Patient placed in physician observation because patient is awaiting PT evaluation for the possible need of acute rehab At the time observation was started patient's vital signs were stable. Patient is alert, intermittently confused. additional medical workup ordered along with CT scan of her head. Neuro exam is non-focal. CV: RRR and lungs are clear. Will continue to monitor. Time: 14:59 Reevaluation #2: Per Charo from , patient to be discharged home, daughter feels patient is at baseline and is agreeable to patient returning to her home. Observation care revealed that patient does not meet medical necessity for hospitalization. Final disposition discussed with patient. The patient completed observation care at 12:30 on 05/03/24. Time: 12:29 Medications Administered Generic Name Dose Route Start Last Admin Trade Name Denizq PRN Reason Stop Dose Admin Atenolol 25 mg 05/03/24 09:00 05/03/24 09:46 Atenolol 25 Mg Tablet PO 25 mg DAILY EUGENIO Administration Protocol Bupropion HCl 150 mg 05/03/24 09:00 05/03/24 09:46 Bupropion Hcl Xl 150 Mg Tab.Er.24h PO 150 mg DAILY EUGENIO Administration Bupropion HCl 300 mg 05/03/24 09:00 05/03/24 10:53 Bupropion Hcl Xl 300 Mg Tab.Er.24h PO 300 mg DAILY EUGENIO Administration Folic Acid 1 mg 05/03/24 09:00 05/03/24 09:47 Folic Acid 1 Mg Tablet PO 1 mg DAILY EUGENIO Administration Furosemide 20 mg 05/03/24 09:00 05/03/24 09:47 Furosemide 20 Mg Tablet PO 20 mg DAILY EUGENIO Administration Protocol Levothyroxine Sodium 50 mcg 05/03/24 09:30 05/03/24 09:47 Levothyroxine Sodium 50 Mcg Tablet PO 50 mcg DAILY@0600 EUGENIO Administration Nitrofurantoin Macrocrystals 100 mg 05/02/24 15:00 05/03/24 06:59 Nitrofurantoin Monohyd/M-Cryst 100 Mg Capsule PO 100 mg BID EUGENIO Administration Omeprazole 40 mg 05/03/24 07:30 05/03/24 09:47 Omeprazole 40 Mg Capsule.Dr PO 40 mg DAILY@0630 EUGENIO Administration Oxycodone HCl 20 mg 05/02/24 17:56 05/03/24 10:53 Oxycodone Hcl Immed Release 5 Mg Tablet PO 20 mg Q4H PRN Administration Pain, Moderate(Pain Scale 4-6) Prednisone 4 mg 05/03/24 09:39 05/03/24 10:54 Prednisone 1 Mg Tablet PO Not Given DAILY EUGENIO Discontinued Medications Generic Name Dose Route Start Last Admin Trade Name Denizq PRN Reason Stop Dose Admin Acetaminophen 650 mg 05/03/24 06:40 05/03/24 06:59 Acetaminophen 325 Mg Tablet PO 02/07/25 06:41 650 mg ONCE ONE Administration Medical Decision Making Medical Decision Making MDM Narrative: 74 yo female presenting for evaluation of confusion and disorientation c/w her previous presentations of UTIs. hx ESBL E. Coli in the past. she has been on cefadroxil for the last 3 days with no improvement. PCP unsure if this abx is working for her as culture is showing contamination. Patient is hemodynamically stable and afebile. she is coherent but not acting herself per her daughter. she is oriented to person and place, intermittently on time. Labs are reassuring with no leukocytosis. no CASSANDRA or uremia, Straight cath urinalysis is improved from prior although not normal. While awaiting culture will transition her to nitrofurantoin (which she has tolerated in the past). Daughter not comfortable with her going home alone given her confusion. Additional medical workup ordered and will get PT/CM consults to help with additional assistance at home vs STR until improved. Differential Diagnosis Differential Diagnoses: The differential diagnosis associated with the presentation includes UTI, dehydration, CASSANDRA, other infection, thyroid disorder, delirium, dementia, polypharmacy Admission/Observation Consideration of admission/observation: Escalation of care including admission/observation considered Lab Data [facility] Lab Attestation statement: I reviewed the patient's lab results. as above 05/02/24 11:49 05/02/24 12:25 Labs: Lab Results 05/02/24 05/02/24 05/02/24 Range/Units 11:49 12:25 14:09 WBC 7.4 (4.8-10.8) X10*3/uL RBC 4.82 (4.20-5.50) X10*6/uL Hgb 15.0 (12.0-16.0) g/dl Hct 44.2 (37.0-47.0) % MCV 91.7 (80.0-98.0) fL MCH 31.1 (27.0-33.0) pg MCHC 33.9 (31.0-35.0) g/dl RDW 15.9 (11.0-16.0) % Plt Count 173 D (160-400) X10*3/uL MPV 9.9 (9.4-12.3) fL Immature Gran % (Auto) 0.4 (0.0-0.4) % Neut % (Auto) 68.0 (45-73) % Lymph % (Auto) 17.0 L (20-40) % [place] % (Auto) 11.1 H (2-11) % Eos % (Auto) 3.1 (0-4) % Baso % (Auto) 0.4 (0-2) % Lymph # (Auto) 1.3 (1.2-4.9) X10*3/uL [place] # (Auto) 0.8 (0.1-1.2) X10*3/uL Eos # (Auto) 0.2 (0.0-0.4) X10*3/uL Baso # (Auto) 0.0 (0.0-0.2) X10*3/uL Abs Immat Gran (auto) 0.03 (0.00-0.03) X10*3/uL Absolute Neuts (auto) 5.0 (2.0-8.3) x10*3/uL Absolute Nucleated RBC 0.000 (0.0-0.012) X10*3/uL Nucleated RBC % (auto) 0.0 (0.0-0.2) /100WBC VBG pH (7.32-7.43) VBG pCO2 mmHg VBG pO2 mmHg VBG HCO3 (22-26) mmol/L VBG O2 Saturation % VBG Base Excess mmol/L Sodium 137 (135-145) mmol/L Potassium 4.1 (3.3-5.1) mmol/L Chloride 100 (96-108) mmol/L Carbon Dioxide 26 (22-29) mmol/L Anion Gap 15 (12-20) BUN 23 H (9-16) mg/dL Creatinine 1.34 (0.5-1.4) mg/dL Estim Creat Clear Calc 43.9 Estimated GFR 39 Random Glucose 115 (60-115) mg/dL Calcium 9.9 D (8.4-10.2) mg/dL Magnesium 2.2 (1.6-2.6) mg/dL Total Bilirubin 0.4 (0.0-1.0) mg/dL AST 25 (5-31) U/L ALT 19 (0-31) U/L Alkaline Phosphatase 135 H (39-117) U/L Ammonia (13-55) umol/L Total Protein 8.6 H (6.5-8.0) g/dL Albumin 4.0 (3.5-5.0) g/dL TSH (0.32-4.0) uIU/mL Urine Color Dark Yellow Urine Appearance Clear Urine pH 5.5 (5.0-9.0) Ur Specific [place] 1.015 (1.005-1.025) Urine Protein Negative (Neg-Trace) mg/dL Urine Glucose (UA) Negative (Negative) mg/dL Urine Ketones Negative (Negative) mg/dL Urine Blood Negative (Negative) Urine Nitrite Negative (Negative) Ur Leukocyte Esterase Small (1+) H (Negative) Urine RBC 0-2 (0-2) /HPF Urine WBC 6-10 (0-5) /HPF Ur Squamous Epith Cells 6-10 (0-2) /HPF Urine Bacteria None Seen (None Seen) Hyaline Casts 6-10 (0-2) /LPF COVID-19 (KERRI) (Negative) COVID-19 Clin Com 05/02/24 05/02/24 05/02/24 Range/Units 16:40 16:58 17:02 WBC (4.8-10.8) X10*3/uL RBC (4.20-5.50) X10*6/uL Hgb (12.0-16.0) g/dl Hct (37.0-47.0) % MCV (80.0-98.0) fL MCH (27.0-33.0) pg MCHC (31.0-35.0) g/dl RDW (11.0-16.0) % Plt Count (160-400) X10*3/uL MPV (9.4-12.3) fL Immature Gran % (Auto) (0.0-0.4) % Neut % (Auto) (45-73) % Lymph % (Auto) (20-40) % [place] % (Auto) (2-11) % Eos % (Auto) (0-4) % Baso % (Auto) (0-2) % Lymph # (Auto) (1.2-4.9) X10*3/uL [place] # (Auto) (0.1-1.2) X10*3/uL Eos # (Auto) (0.0-0.4) X10*3/uL Baso # (Auto) (0.0-0.2) X10*3/uL Abs Immat Gran (auto) (0.00-0.03) X10*3/uL Absolute Neuts (auto) (2.0-8.3) x10*3/uL Absolute Nucleated RBC (0.0-0.012) X10*3/uL Nucleated RBC % (auto) (0.0-0.2) /100WBC VBG pH 7.35 (7.32-7.43) VBG pCO2 56 mmHg VBG pO2 34 mmHg VBG HCO3 31 H (22-26) mmol/L VBG O2 Saturation 46.0 % VBG Base Excess 4.9 mmol/L Sodium (135-145) mmol/L Potassium (3.3-5.1) mmol/L Chloride (96-108) mmol/L Carbon Dioxide (22-29) mmol/L Anion Gap (12-20) BUN (9-16) mg/dL Creatinine (0.5-1.4) mg/dL Estim Creat Clear Calc Estimated GFR Random Glucose (60-115) mg/dL Calcium (8.4-10.2) mg/dL Magnesium (1.6-2.6) mg/dL Total Bilirubin (0.0-1.0) mg/dL AST (5-31) U/L ALT (0-31) U/L Alkaline Phosphatase (39-117) U/L Ammonia 24 (13-55) umol/L Total Protein (6.5-8.0) g/dL Albumin (3.5-5.0) g/dL TSH 0.44 (0.32-4.0) uIU/mL Urine Color Urine Appearance Urine pH (5.0-9.0) Ur Specific Lewis (1.005-1.025) Urine Protein (Neg-Trace) mg/dL Urine Glucose (UA) (Negative) mg/dL Urine Ketones (Negative) mg/dL Urine Blood (Negative) Urine Nitrite (Negative) Ur Leukocyte Esterase (Negative) Urine RBC (0-2) /HPF Urine WBC (0-5) /HPF Ur Squamous Epith Cells (0-2) /HPF Urine Bacteria (None Seen) Hyaline Casts (0-2) /LPF COVID-19 (KERRI) (Negative) COVID-19 Clin Com 05/03/24 Range/Units 09:32 WBC (4.8-10.8) X10*3/uL RBC (4.20-5.50) X10*6/uL Hgb (12.0-16.0) g/dl Hct (37.0-47.0) % MCV (80.0-98.0) fL MCH (27.0-33.0) pg MCHC (31.0-35.0) g/dl RDW (11.0-16.0) % Plt Count (160-400) X10*3/uL MPV (9.4-12.3) fL Immature Gran % (Auto) (0.0-0.4) % Neut % (Auto) (45-73) % Lymph % (Auto) (20-40) % [place] % (Auto) (2-11) % Eos % (Auto) (0-4) % Baso % (Auto) (0-2) % Lymph # (Auto) (1.2-4.9) X10*3/uL [place] # (Auto) (0.1-1.2) X10*3/uL Eos # (Auto) (0.0-0.4) X10*3/uL Baso # (Auto) (0.0-0.2) X10*3/uL Abs Immat Gran (auto) (0.00-0.03) X10*3/uL Absolute Neuts (auto) (2.0-8.3) x10*3/uL Absolute Nucleated RBC (0.0-0.012) X10*3/uL Nucleated RBC % (auto) (0.0-0.2) /100WBC VBG pH (7.32-7.43) VBG pCO2 mmHg VBG pO2 mmHg VBG HCO3 (22-26) mmol/L VBG O2 Saturation % VBG Base Excess mmol/L Sodium (135-145) mmol/L Potassium (3.3-5.1) mmol/L Chloride (96-108) mmol/L Carbon Dioxide (22-29) mmol/L Anion Gap (12-20) BUN (9-16) mg/dL Creatinine (0.5-1.4) mg/dL Estim Creat Clear Calc Estimated GFR Random Glucose (60-115) mg/dL Calcium (8.4-10.2) mg/dL Magnesium (1.6-2.6) mg/dL Total Bilirubin (0.0-1.0) mg/dL AST (5-31) U/L ALT (0-31) U/L Alkaline Phosphatase (39-117) U/L Ammonia (13-55) umol/L Total Protein (6.5-8.0) g/dL Albumin (3.5-5.0) g/dL TSH (0.32-4.0) uIU/mL Urine Color Urine Appearance Urine pH (5.0-9.0) Ur Specific [place] (1.005-1.025) Urine Protein (Neg-Trace) mg/dL Urine Glucose (UA) (Negative) mg/dL Urine Ketones (Negative) mg/dL Urine Blood (Negative) Urine Nitrite (Negative) Ur Leukocyte Esterase (Negative) Urine RBC (0-2) /HPF Urine WBC (0-5) /HPF Ur Squamous Epith Cells (0-2) /HPF Urine Bacteria (None Seen) Hyaline Casts (0-2) /LPF COVID-19 ([facility]ERRI) Negative (Negative) COVID-19 Clin Com See Note Independent Interpretation I performed an independent interpretation of an: CT Scan Interpretation: CT head with no over edema or bleed Independent Historian Clinical information obtained from an independent historian. History obtained from or confirmed by: Other (adult daughter at bedside) External Record Review External record reviewed: Inpatient record, Outpatient record, Prior outpatient labs and Prior outpatient radiology Prescription Management I considered prescription management with: Pain Medication and Antibiotic Chronic Conditions Patient?s care impacted by: Hypertension and Other (chronic pain on chronic opiates, RA, ) Social Determinants Patient?s care significantly limited by Social Determinants of Health including: Problems related to primary support group Critical Care Time Critical Care Time Critical Care Time: No Discharge Plan Discharge Clinical Impression: Delirium due to general medical condition Urinary tract infection Qualifiers: Urinary tract infection type: acute cystitis Hematuria presence: without hematuria Qualified Code(s): N30.00 - Acute cystitis without hematuria Patient Disposition: Home, Self-Care Additional Instructions: Follow up with your primary care provider. Return to the emergency department with new or concerning symptoms. Prescriptions: No Action omeprazole 40 mg capsule,delayed release(DR/EC) 40 mg PO DAILY@0630 methotrexate sodium 2.5 mg tablet 10 tab PO MO prednisone 1 mg tablet 4 mg PO DAILY levothyroxine 50 mcg tablet 50 mcg PO DAILY@0630 ergocalciferol (vitamin D2) 1,250 mcg (50,000 unit) capsule 1,250 mcg PO MO Rx Instructions: Giv 1 capsule by mouth every Monday bupropion HCl 300 mg tablet extended release 24 hr 300 mg PO DAILY duloxetine 60 mg capsule,delayed release(DR/EC) 60 mg PO DAILY ondansetron 4 mg tablet,disintegrating 4 mg PO Q8H PRN (Reason: nausea and vomiting) Qty: 10 0RF folic acid 1 mg tablet 1 mg PO DAILY atenolol 25 mg Tablet 25 mg PO DAILY Qty: 30 0RF Protocol: Hold for SBP/HR < HOLD for SBP < : 90 HOLD for HR < : 60 doxazosin 2 mg Tablet 2 mg PO BEDTIME Qty: 30 0RF Protocol: Hold for SBP< HOLD for SBP < : 90 furosemide 20 mg tablet 20 mg PO DAILY Qty: 30 0RF bupropion HCl 150 mg tablet extended release 24 hr 150 mg PO DAILY multivitamin Tablet 1 tab PO DAILY ibuprofen 200 mg Tablet 600 mg PO Q6H PRN (Reason: Pain) vitamin B complex [B Complex] Capsule 1 cap PO DAILY melatonin 10 mg Tablet 10 mg PO BEDTIME biotin 5,000 mcg Tablet, Sublingual 5,000 mcg SUBLINGUAL DAILY pregabalin 200 mg capsule 200 mg PO BID oxycodone 20 mg tablet 20 mg PO Q4H PRN (Reason: pain (scale score 7-10)) Qty: 20 0RF acetaminophen [Tylenol] 325 mg Tablet 650 mg PO Q4H PRN (Reason: Moderate Pain (Scale Score 5-6)) bisacodyl [Biscolax] 10 mg Suppository 10 mg PA DAILY PRN (Reason: Constipation) Combivent Respimat 20-100 mcg/actuation Mist 1 puff INHALATION Q6H PRN (Reason: Shortness Of Breath Or Wheezing) lidocaine HCl 4 % Adhesive Patch,Medicated 1 patch TOPICAL BID PRN (Reason: Pain) Rx Instructions: SHOULDER OR KKNEE prednisone 5 mg tablet 5 mg PO DAILY PRN (Reason: arthritis pain) Print Language: [place]
[2024-05-02 11:53] LABS: MANUAL DIFF FLAG NO
[2024-05-02 11:55] LABS: Basophils Percent Auto 0.4 % (0-2); Eosinophils Absolute Auto 0.2 X10*3/uL (0.0-0.4); Eosinophils Percent Auto 3.1 % (0-4); Hematocrit 44.2 % (37.0-47.0); Imm Gran Abs Auto 0.03 X10*3/uL (0.00-0.03); Imm Gran Pct Auto 0.4 % (0.0-0.4); Lymphocytes Absolute Auto 1.3 X10*3/uL (1.2-4.9); Mean Corpuscular HGB Conc 33.9 g/dl (31.0-35.0); Mean Corpuscular Hemoglobin 31.1 pg (27.0-33.0); Mean Corpuscular Volume 91.7 fL (80.0-98.0); Mean Platelet Volume 9.9 fL (9.4-12.3); Monocytes Absolute Auto 0.8 X10*3/uL (0.1-1.2); Monocytes Percent Auto 11.1 % (2-11); Platelet Count 173 X10*3/uL (160-400); Red Blood Count 4.82 X10*6/uL (4.20-5.50); Red Cell Distribution Width 15.9 % (11.0-16.0); White Blood Count 7.4 X10*3/uL (4.8-10.8)
--- OUTSIDE RECORDS SUMMARY | 2024-05-02 12:04 | XMS_ITS | Encounter Summary ---
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 therapy Social History Tobacco Use Types Packs/Day Years Used Date Smoking Tobacco: Never Smokeless Tobacco: Never Alcohol Use Standard Drinks/Week Comments Never 0 (1 standard drink = 0.6 oz pur e alcohol) Sex and Gender Information Value Date Recorded Sex Assigned at Not on file Gender Identity Not on file Sexual Orientation Not on file Job Start Date Occupation Industry Not on file Not on file Not on file documented as of this encounter Plan of Treatment Upcoming Encounters Date Type Department Care Team (Late Contact Info) Description 05/09/2024 2:00 PM EST Office Visit Orthopedic Surgery - [place] [address] [phone] Sathish Osorio MD [address] [phone] documented as of this encounter Visit Diagnoses Diagnosis Other oil heaterman (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
--- OUTSIDE RECORDS SUMMARY | 2024-05-02 12:04 | XMS_ITS | Clinical Summary ---
Author Organization [address] Address [address] [place] [phone] Phone Care Team Providers Care Dryer Feeder Name Role Phone Travis Holbrook MD Primary Care Provider [phone] Allergies Active Allergy Reactions Criticality Noted Date Comments Adhesive Tape-Silicones Low 02/06/2017 Tape Other Reaction(s): Rash/Dermatitis Chlorthalidone Medium 08/08/2017 Hypokalemia Hydrochlorothiazide High 02/07/2017 Hyponatremia Lisinopril Anaphylaxis,Swell ing High 02/06/2017 anaphylaxis, 2017 [facility] Clqsapk-Oxu-Spm Reductase Inhibitors 02/06/2017 Statins [Hmg-coa-r Inhibitors] Leg weakness leg pain Sulfa (Sulfonamide Antibiotics) Low 02/06/2017 Sulfa Drugs Other Reaction(s): Rash/Dermatitis Tramadol Low 02/06/2017 Other Reaction(s): Rash/Dermatitis serotonin syndrome , while she was also taking Cymbalta, 2017 Tremor Active Problems Problem Noted Date Diagnosed Date Chronic foot ulcer 08/25/2022 Chronic patellofemoral pain of left knee 023 Difficult intubation 08/25/2022 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 Gait instability 08/25/2022 Polycythemia vera 08/25/2022 Post-traumatic osteoarthritis of right knee 03/2022 Proximal muscle weakness 08/25/2022 Right medial tibial plateau fracture, closed, initial encounter 08/25/2022 Urinary incontinence 08/25/2022 Anxiety 08/24/2022 Bronchiectasis 08/24/2022 Chronic lower back pain 08/24/2022 COPD (chronic obstructive pulmonary disease) Depression 08/24/2022 GERD (gastroesophageal reflux disease) Jose's thyroiditis 08/24/2022 HLD (hyperlipidemia) 08/24/2022 Lymphedema 08/24/2022 Polycythemia 08/24/2022 Rheumatoid arthritis 08/24/2022 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 Takes Lasix as needed for extra leg swelling present. Bronchiectasis without complication 01/10/2019 Overview (04/19/2024): Last Assessment & Plan: Continue current treatment plan without recent exacerbation. F/u with Dr. Ordonez as planned. Gastroesophageal reflux disease without esophagi tis 10/31/2018 Overview (04/19/2024): Last Assessment & Plan: Stable on Prilosec 40 mg daily. F/u for any worsening symptoms. 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 Check TSH with upcoming blood work. Rheumatoid arthritis involvi ng multiple sites with positive rheumatoid factor 10/09/2017 Overview (04/19/2024): Last Assessment & Plan: Stable at baseline, although some increased pain recently in right knee due to insufficiency fracture. F/u with Dr. Hair as scheduled. 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 Ordonez of pulmonology. Continue current therapies. Centrilobular emphysema 08/23/2017 Overview (04/19/2024): Last Assessment & Plan: Stable, without evidence of acute exacerbation. Continue current therapies and f/u with Dr. Ordonez as scheduled. Due for pulmonary function testing, encouraged to call to set up testing. Depression with anxiety 02/06/2017 Overview (04/19/2024): Last Assessment & Plan: Stable on current therapies, Cymbalta 60 mg daily and Wellbutrin XL 450 mg daily. Continue current regimen. Patient in agreement with plan. Fibromyalgia 02/06/2017 Overview (04/19/2024): Last Assessment & Plan: We discussed the diagnosis of fibromyalgia, its natural history, and treatment. Specifically, we discussed that treatment requires many interventions and recognition that we are often unable to get patients completely pain free. Management of fibromyalgia requires patient engagement to address any underlying depression, anxiety, or sleep disorder. Further, patients are encouraged to engage in regular physical activity. Some studies have suggested that Troy Chi is effective. Other physical activity may including water-based aerobics, gentle yoga, walking, biking, swimming, Pilates etc. In terms of pharmacotherapy, there are many options, including tricyclic antidepressants, duloxetine, gabapentin or pregabalin, and cyclobenzaprine as well as other similar medications to those listed. In this case, the patient might try to continue Lyrica. HTN (hypertension) 02/06/2017 Overview (04/19/2024): Last Assessment & Plan: Initially elevated in office, but improved by the end of the visit. Continue atenolol and losartan. F/u in 3 months for routine blood pressure monitoring. Hyperlipidemia 02/06/2017 Overview (04/19/2024): Last Assessment & Plan: Will check fasting lipid panel and f/u by phone or PG message once results are back. Idiopathic peripheral neuropathy 02/06/2017 Overview (04/19/2024): Last Assessment & Plan: Continue Lyrica. Vitamin D insufficiency 02/06/2017 Overview (04/19/2024): Last Assessment & Plan: Continue current therapies and recheck Vitamin D level with upcoming blood work. Encounters Date Type Department Care Team Description 03/22/2024 Lab Requisition [facility] [address] [place] [phone] Lavonne Irvin MD Essential (primary) hypertension; Acute kidney failure, unspecified (CMS/HCC) 03/16/2024 Lab Requisition [facility] [address] [place] [phone] Lavonne Irvin MD Essential (primary) hypertension; Acute kidney failure, unspecified (CMS/HCC) 03/08/2024 Lab Requisition [facility] [address] [place] [phone] Lavonne Irvin MD Essential (primary) hypertension; Acute kidney failure, unspecified (CMS/HCC) 03/07/2024 Lab Requisition [facility] [address] [place] [phone] Lavonne Irvin MD Essential (primary) hypertension; Acute kidney failure, unspecified (CMS/HCC) 03/05/2024 Lab Requisition [facility] [address] [place] [phone] Travis Holbrook MD Other care home (current) drug therapy 02/28/2024 Lab Requisition [facility] [address] [place] [phone] Travis Holbrook MD Other care home (current) drug therapy from Last 3 Months Surgical History Surgery Date Site/Laterality Comments OTHER SURGICAL HISTORY N/A PROCEDURE: MO HYSTEROSCOPY ENDOMETRIAL ABLATION TUBAL LIGATION PROCEDURE: HISTORICAL TUBAL LIGATION Social History Tobacco Use Types Packs/Day Years [...] file Not on file Not on file Obstetrics History Last Filed Vital Signs Vital Sign Reading Time Taken Comments Blood Pressure - - Pulse - - Temperature - - Respiratory Rate - - Oxygen Saturation - - Inhaled Oxygen Concentration - - Weight 95.3 kg (210 lb) 03/16/2023 2:07 PM EST Height 170.2 cm (5' 7 ) 03/16/2023 2:07 PM EST Body Mass Index 32.89 03/16/2023 2:07 PM EST Plan of Treatment Upcoming Encounters Date Type Department Care Team (Late st Contact Info) Description 05/09/2024 2:00 PM EST Office Visit Orthopedic Surgery - [place] [id number] [phone] Sathish Osorio MD [address] [phone] Health Maintenance Due Date Last Done Comments Breast Cancer Screening 1950 COVID-19 Vaccine (#1) 02/12/1957 Pneumococcal Vaccine: 65+ Years (1 of 2 - PCV) 02/12/1958 DTaP,Tdap,and Td Vaccines (1 - Tdap) 02/12/1971 Zoster Vaccines (1 of 2) 02/12/1971 RSV Immunization Patients 60+ Years Old (1 - Risk 60-74 years 1-dose series) 2012 Colorectal Cancer Screening: Colonoscopy 02/22/2022 Depression Screening 02/22/2022 Falls Risk Assessment 02/22/2022 Hepatitis C Screening 02/22/2022 Medicare Annual Wellness Visit 02/22/2022 Osteoporosis Screening (Bone Density Screening) 02/22/2022 Social Influencers of Health Screening 02/22/2022 Influenza Vaccine (#1) 2023 Hypertension/CHF/CAD Annual BMP Blood Test 03/18/2025 03/18/2024, 03/11/2024, 03/07/2024, Additional history exists Cholesterol Screening (Lipid Panel) 07/07/2027 07/06/2022 HIB Vaccines Aged Out No longer eligi ble based on patient's age to complete this topic HPV Vaccines Aged Out No longer eligi ble based on patient's age to complete this topic Hepatitis A Vaccines Aged Out No long er eligible based on patient's age to complete this topic Hepatitis B Vaccines Aged Out No long er eligible based on patient's age to complete this topic IPV Vaccines Aged Out No longer eligi ble based on patient's age to complete this topic MMR Vaccines Aged Out No longer eligi ble based on patient's age to complete this topic Meningococcal ACWY Vaccine Aged Out N o longer eligible based on patient's age to complete this topic RSV Immunization Patients Under 20 months Aged Out No longer eligible based on patient's age to complete this topic Varicella Vaccines Aged Out No longer eligible based on patient's age to complete this topic Procedures Procedure Name Priority Date/Time Associated Diagnosis Comments BASIC METABOLIC PANEL Routine 03/18/2024 7:09 AM EST Essential (primary) hypertension Acute kidney failure, unspecified (CMS/HCC) COMPLETE BLOOD COUNT Routine 03/18/2024 7:09 AM EST Essential (primary) hypertension Acute kidney failure, unspecified (CMS/HCC) BASIC METABOLIC PANEL Routine 03/11/2024 7:17 AM EST Essential (primary) hypertension Acute kidney failure, unspecified (CMS/HCC) COMPLETE BLOOD COUNT Routine 03/11/2024 7:17 AM EST Essential (primary) hypertension Acute kidney failure, unspecified (CMS/HCC) BASIC METABOLIC PANEL Routine 03/07/2024 6:00 AM EST Essential (primary) hypertension Acute kidney failure, unspecified (CMS/HCC) COMPLETE BLOOD COUNT Routine 03/07/2024 6:00 AM EST Essential (primary) hypertension Acute kidney failure, unspecified (CMS/HCC) BASIC METABOLIC PANEL Routine 02/28/2024 6:48 AM EST Other care home (current) drug therapy COMPLETE BLOOD COUNT Routine 02/28/2024 6:48 AM EST Other parts counterman (current) drug therapy LIPID PANEL Routine 07/06/2022 from Last 3 Months or Most Recently Relevant to Health Maintenance Results * (ABNORMAL) Complete blood count (03/18/2024 7:09 AM EST) Only the most recent of4 resultswithin the time period is included. [facility] Signature WBC 6.3 4.8 - 10.8 K/mcL LAB HEMETOLOGY METHOD 03/18/2024 11:57 AM [facility] RBC 3.90 3.80 - 4.80 M/mcL LAB HEMETOLOGY METHOD 03/18/2024 11:57 AM [facility] Hemoglobin 11.6 11.5 - 16.0 g/dL LAB HEMETOLOGY METHOD 03/18/2024 11:57 AM [facility] Hematocrit 37.4 35.0 - 47.0 % LAB HEMETOLOGY METHOD 03/18/2024 11:57 AM [facility] MCV 97.1 79.0 - 98.0 FL LAB HEMETOLOGY METHOD 03/18/2024 11:57 AM [facility] MCH 30.1 27.0 - 32.0 pcg LAB HEMETOLOGY METHOD 03/18/2024 11:57 AM [facility] LAB MCHC 31.0(L) 32.0 - 37.0 g/dL LAB HEMETOLOGY METHOD 03/18/2024 11:57 AM [facility] RDW 15.9(H) 11.0 - 15.0 % LAB HEMETOLOGY METHOD 03/18/2024 11:57 AM [facility] Platelets 148 130 - 400 K/mcL LAB HEMETOLOGY METHOD 03/18/2024 11:57 AM [facility] MPV 11.0 7.0 - 11.0 FL LAB HEMETOLOGY METHOD 03/18/2024 11:57 AM [facility] NRBC 0.0 <1.0 % LAB HEMETOLOGY METHOD 03/18/2024 11:57 AM [facility] NRBC Absolute 0.00 <0.10 K/mcL LAB HEMETOLOGY METHOD 03/18/2024 11:57 AM [facility] Blood Venous blood specimen / Unknown Venipuncture / Unknown 03/18/2024 7:09 AM EST 03/18/2024 11:39 AM EST Lavonne Irvin MD LAB BLOOD ORDERABLES [facility] [address] [place] [address], * (ABNORMAL) Basic metabolic panel (03/18/2024 7:09 AM EST) Only the most recent of4 resultswithin the time period is included. Sodium 137 133 - 145 mmol/L LAB CHEMISTRY METHOD 03/18/2024 1:26 PM [facility] Potassium 4.1 3.5 - 5.5 mmol/L LAB CHEMISTRY METHOD 03/18/2024 1:26 PM [facility] Chloride 104 96 - 110 mmol/L LAB CHEMISTRY METHOD 03/18/2024 1:26 PM [facility] CO2 31 21 - 32 mmol/L LAB CHEMISTRY METHOD 03/18/2024 1:26 PM [facility] Anion Gap 2(L) 3 - 11 LAB CHEMISTRY METHOD 03/18/2024 1:26 PM [facility] Glucose 75 70 - 100 mg/dL LAB CHEMISTRY METHOD 03/18/2024 1:26 PM [facility] BUN 23 5 - 25 mg/dL LAB CHEMISTRY METHOD 03/18/2024 1:26 PM [facility] Creatinine 1.30(H) 0.50 - 1.10 mg/dL LAB CHEMISTRY METHOD 03/18/2024 1:26 PM [facility] eGFR 44(L) >=60 mL/min/1. 73m2 LAB CHEMISTRY METHOD 03/18/2024 1:26 PM [facility] Comment:Calculation based on the??Chronic Kidney Disease Epidemiology Collaboration (CKD-EPI) equation refit??without adjustment for race. BUN/Creatinine Ratio 17.7 LAB CHEMISTRY METHOD 03/18/2024 1:26 PM EST [facility] Calcium 8.9 8.5 - 10.5 mg/dL LAB CHEMISTRY METHOD 03/18/2024 1:26 PM EST [facility] Blood Venous blood specimen / Unknown Venipuncture / Unknown 03/18/2024 7:09 AM EST 03/18/2024 11:39 AM EST Lavonne Irvin MD LAB BLOOD ORDERABLES [facility] [address] [place] [address], * Lipid panel (07/06/2022) LDL/HDL Ratio 0 Comment:no interpretation, a bstracted Triglycerides 0 mg/dL Comment:no interpretation, a bstracted Cholesterol 0 mg/dL Comment:no interpretation, a bstracted HDL 0 mg/dL Comment:no interpretation, a bstracted LDL Cholesterol 0 mg/dL Comment:no interpretation, a bstracted Blood Venous blood specimen / Unknown Historical Provider LAB BLOOD ORDERAB LES from Last 3 Months or Most Recently Relevant to Health Maintenance Care Teams Dryer Feeder Relationship Specialty Start Date End Date Travis Holbrook MD [address] [place] [address] [address] [place], [phone] PCP - General Family Medicine 02/28/24
--- OUTSIDE RECORDS SUMMARY | 2024-05-02 12:04 | XMS_ITS | Encounter Summary ---
Author Organization [facility] Address [address] [place] [phone] Care Team Providers Care Profiling Machine Setup Operator Name Role Phone Travis Holbrook MD Primary Care Provider [phone] Encounter Details Date Type Department Care Team (Late Contact Info) Description 03/16/2024 Lab Requisition [facility] Lab [address] [facility] [place] [phone] Lavonne Irvin MD [address] [place] [address] Essential (primary) hypertension; Acute kidney failure, unspecified (CMS/HCC) Social History Tobacco Use Types Packs/Day Years [...] PM EST Office Visit Orthopedic Surgery - [place] [address] [phone] Sathish Osorio MD 175 [facility] [address] [place], [place] [phone] documented as of this encounter Procedures Procedure Name Priority Date/Time Associated Diagnosis Comments COMPLETE BLOOD COUNT Routine 03/18/2024 7:09 AM EST Essential (primary) hypertension Acute kidney failure, unspecified (CMS/HCC) BASIC METABOLIC PANEL Routine 03/18/2024 7:09 AM EST Essential (primary) hypertension Acute kidney failure, unspecified (CMS/HCC) documented in this encounter Results * (ABNORMAL) Basic metabolic panel (03/18/2024 7:09 AM EST) Sodium 137 133 - 145 mmol/L LAB CHEMISTRY METHOD 03/18/2024 1:26 PM [facility] Potassium 4.1 3.5 - 5.5 mmol/L LAB CHEMISTRY METHOD 03/18/2024 1:26 PM [facility] Chloride 104 96 - 110 mmol/L LAB CHEMISTRY METHOD 03/18/2024 1:26 PM [facility] CO2 31 21 - 32 mmol/L LAB CHEMISTRY METHOD 03/18/2024 1:26 PM [facility] Anion Gap 2(L) 3 - 11 LAB CHEMISTRY METHOD 03/18/2024 1:26 PM [facility] Glucose 75 70 - 100 mg/dL LAB CHEMISTRY METHOD 03/18/2024 1:26 PM [facility] BUN 23 5 - 25 mg/dL LAB CHEMISTRY METHOD 03/18/2024 1:26 PM [facility] Creatinine 1.30(H) 0.50 - 1.10 mg/dL LAB CHEMISTRY METHOD 03/18/2024 1:26 PM [facility] eGFR 44(L) >=60 mL/min/1. 73m2 LAB CHEMISTRY METHOD 03/18/2024 1:26 PM [facility] Comment:Calculation based on the??Chronic Kidney Disease Epidemiology Collaboration (CKD-EPI) equation refit??without adjustment for race. BUN/Creatinine Ratio 17.7 LAB CHEMISTRY METHOD 03/18/2024 1:26 PM [facility] Calcium 8.9 8.5 - 10.5 mg/dL LAB CHEMISTRY METHOD 03/18/2024 1:26 PM [facility] Blood Venous blood specimen / Unknown Venipuncture / Unknown 03/18/2024 7:09 AM EST 03/18/2024 11:39 AM EST Lavonne Irvin MD LAB BLOOD ORDERABLES [facility] [address] [place] [address], * (ABNORMAL) Complete blood count (03/18/2024 7:09 AM EST) WBC 6.3 4.8 - 10.8 K/mcL LAB HEMETOLOGY METHOD 03/18/2024 11:57 AM [facility] RBC 3.90 3.80 - 4.80 M/mcL LAB HEMETOLOGY METHOD 03/18/2024 11:57 AM [facility] Hemoglobin 11.6 11.5 - 16.0 g/dL LAB HEMETOLOGY METHOD 03/18/2024 11:57 AM [facility] Hematocrit 37.4 35.0 - 47.0 % LAB HEMETOLOGY METHOD 03/18/2024 11:57 AM [facility] MCV 97.1 79.0 - 98.0 FL LAB HEMETOLOGY METHOD 03/18/2024 11:57 AM [facility] MCH 30.1 27.0 - 32.0 pcg LAB HEMETOLOGY METHOD 03/18/2024 11:57 AM [facility] MCHC 31.0(L) 32.0 - 37.0 g/dL LAB HEMETOLOGY METHOD 03/18/2024 11:57 AM [facility] RDW 15.9(H) 11.0 - 15.0 % LAB HEMETOLOGY METHOD 03/18/2024 11:57 AM [facility] Platelets 148 130 - 400 K/mcL LAB HEMETOLOGY METHOD 03/18/2024 11:57 AM EST [facility] MPV 11.0 7.0 - 11.0 FL LAB HEMETOLOGY METHOD 03/18/2024 11:57 AM EST [facility] NRBC 0.0 <1.0 % LAB HEMETOLOGY METHOD 03/18/2024 11:57 AM EST [facility] NRBC Absolute 0.00 <0.10 K/mcL LAB HEMETOLOGY METHOD 03/18/2024 11:57 AM EST [facility] Blood Venous blood specimen / Unknown Venipuncture / Unknown 03/18/2024 7:09 AM EST 03/18/2024 11:39 AM EST Lavonne Irvin MD LAB BLOOD ORDERABLES [facility] [address] [place], [place] [address] [phone] documented in this encounter Visit Diagnoses Diagnosis Essential (primary) hypertension Unspecified essential hypertension Acute kidney failure, unspecified (CMS/HCC) Acute kidney failure, unspecified documented in this encounter Care Teams Profiling Machine Setup Operator Relationship Specialty Start Date End Date Travis Holbrook MD [address] [place] [address] [address] [place], [phone] PCP - General Family Medicine 02/28/24 documented as of this encounter
--- OUTSIDE RECORDS SUMMARY | 2024-05-02 12:04 | XMS_ITS | Continuity of Care Document ---
Author Organization [facility] Address [address] [place] [address]- Care Team Providers Care Fire Hose Curer Name Role Phone Dave PALMER, Namita Hnery [id number]s): [facility]/16/24 - 04/10/24 [facility] [address], [place] [address] Attending Physician: Mohamud Sanders MD Admitting Physician: Mohamud Sanders MD Referring Physician: Namita Acosta NP Encounter Type: Pre Office Visit Allergies, Adverse Reactions, Alerts Substance Criticality Severity Reaction Reaction Severity Status sulfADIAZINE 1 Rash Activ e lisinopril 2 Anaphylaxis Activ e statins 3 Active fentaNYL 4 Active TraMADol Hydrochloride 5 Rash Active 1rash 2anaphylaxis, 2016 [facility] 3leg pain 4adhesive causes rash 5 serotonin syndrome , while she was also taking Cymbalta, 2016 Immunizations Given and Recorded Vaccine Date Status Refusal Reason SARS-CoV-2 (COVID-19) mRNA-1273 vaccine 06/25/20 G iven SARS-CoV-2 (COVID-19) mRNA-1273 vaccine 05/28/20 G iven Medications amLODIPine 10 mg oral tablet 10 mg, 1, tablet, By Mouth, Every 24 hours, # 30 tablet, Refills 0, Tot. Refills 0, Maintenance, 07/07/17 4:47:34 PM EDT, Route to Pharmacy Electronically, [facility] Start Date: 07/07/17 Stop Date: 08/06/17 Status: Ordered Quantity: 30.0 Unit: tablet Repeat number: 1 chlorthalidone 25 mg oral tablet 12.5 mg, 0.5, tablet, By Mouth, Daily, # 15 tablet, Refills 0, Tot. Refills 0, Maintenance, 07/09/1811:54:36 PM EDT, Route to Pharmacy Electronically, [facility] 3 Start Date: 07/08/17 Stop Date: 08/07/17 Status: Ordered Quantity: 15.0 Unit: tablet Repeat number: 1 Compression Stockings See Instructions, # 2 each, Refills 1, Tot. Refills 1, Maintenance, surgical, knee length 20-30 mm Hg, 07/20/20 10:46:00 AM EDT, Supply Start Date: 07/20/20 Status: Ordered Quantity: 2.0 Unit: each Repeat number: 2 Cymbalta 60 mg oral enteric coated capsule 1 capsule = 60 mg, By Mouth, 2 times a day, 0 Refills, Maintenance, 08/01/16 12:47:20 PM EDT Start Date: 08/01/16 Status: Ordered Repeat number: 1 Imdur 30 mg oral tablet, extended release 30 mg, 1, tablet, By Mouth, Daily, # 30 tablet, Refills 0, Tot. Refills 0, Maintenance, 07/08/17 12:56:34 PM EDT, Route to Pharmacy Electronically, [facility] 3 Start Date: 07/08/17 Stop Date: 08/07/17 Status: Ordered Quantity: 30.0 Unit: tablet Repeat number: 1 [facility], See Instructions, # 1 each, Refills 1, Tot. Refills 1, Maintenance, Dx: Left LegLymphedema Please Treat and Evaluate, 07/21/20 1:52:00 PM EDT, Supply Start Date: 07/21/20 Status: Ordered Quantity: 1.0 Unit: each Repeat number: 2 Lyrica 100 mg oral capsule 1 capsule = 100 mg, By Mouth, 3 times a day, 0 Refills, Maintenance, 08/01/16 12:48:12 PM EDT, Capsule Start Date: 08/01/16 Status: Ordered Repeat number: 1 Multivitamin Tablet By Mouth, Daily, 0 Refills, Maintenance, 08/01/16 12:48:49 PM EDT Start Date: 08/01/16 Status: Ordered Repeat number: 1 Niacin Tablet By Mouth, Refills 0, Maintenance, 08/01/16 12:48:57 PM EDT Start Date: 08/01/16 Status: Ordered Repeat number: 1 Vitamin D3 oral tablet 2 tablet = 800 International_Units, By Mouth, Daily, 0 Refills, Maintenance, 08/01/16 12:50:22 PM EDT Start Date: 08/01/16 Status: Ordered Repeat number: 1 Problem List Condition Confirmation Course Effective Dates Status Health St atus Informant Lumbar facet arthropathy Confirmed Active Depression Confirmed Active Difficult intubation Confirmed Active Fibromyalgia Confirmed Active Limitation due to disability 1 Confirmed Active Drug or alcohol risk assessment or counseling 2 Confirmed Active Use of opiates for therapeutic purposes Confirmed Active History of medical problems 3 Confirmed Active HTN (hypertension) Confirmed Active Low back pain Confirmed Active Obesity Confirmed Active Polycythemia vera Confirmed Active Postherpetic neuralgia Confirmed Active 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 ED RN W/OE and Tasks Member Role: Primary Care Nurse Name: Namita Acosta NP Position: [facility] Outreach Member Role: PCP Address: [address] [place] [address] Internal [address] Telecom: Care Team Related Persons Name: ANDREEA MARTEL Name: NOA BREWSTER Insurance Providers Guarantor name: BENJA MARTEL Health Plan Information #: 1 Payer: [facility] MCR REPLC Member Number: [id number] Policy Number: NA Group Number: NA Health Plan Information #: 3 Payer: [facility] SUP Member Number: [id number] Policy Number: NA Group Number: NA Health Plan Information #: 2 Payer: MEDICARE PART B OUTPT Member Number: [id number] Policy Number: NA Group Number: NA
--- OUTSIDE RECORDS SUMMARY | 2024-05-02 12:04 | XMS_ITS | Encounter Summary ---
Author Organization [facility] Address [address] [place] [address] Care Team Providers Care High School Math Teacher Name Role Phone Travis Holbrook MD Primary Care Provider [phone] Encounter Details Date Type Department Care Team (Late Contact Info) Description 03/08/2024 Lab Requisition [facility] - Main Lab [address] [facility] [place] [address] Lavonne Irvin MD [address] [place] [address] Essential (primary) hypertension; Acute kidney failure, unspecified [...] PM EST Office Visit Orthopedic Surgery - [place] [address] [phone] Sathish Osorio MD 175 [facility] [address] [place], [place] [phone] documented as of this encounter Procedures Procedure Name Priority Date/Time Associated Diagnosis Comments COMPLETE BLOOD COUNT Routine 03/11/2024 7:17 AM EST Essential (primary) hypertension Acute kidney failure, unspecified (CMS/HCC) BASIC METABOLIC PANEL Routine 03/11/2024 7:17 AM EST Essential (primary) hypertension Acute kidney failure, unspecified (CMS/HCC) documented in this encounter Results * (ABNORMAL) Basic metabolic panel (03/11/2024 7:17 AM EST) Sodium 141 133 - 145 mmol/L LAB CHEMISTRY METHOD 03/11/2024 2:58 PM [facility] Potassium 4.2 3.5 - 5.5 mmol/L LAB CHEMISTRY METHOD 03/11/2024 2:58 PM [facility] Chloride 105 96 - 110 mmol/L LAB CHEMISTRY METHOD 03/11/2024 2:58 PM [facility] CO2 32 21 - 32 mmol/L LAB CHEMISTRY METHOD 03/11/2024 2:58 PM [facility] Anion Gap 4 3 - 11 LAB CHEMISTRY METHOD 03/11/2024 2:58 PM [facility] Glucose 79 70 - 100 mg/dL LAB CHEMISTRY METHOD 03/11/2024 2:58 PM [facility] BUN 20 5 - 25 mg/dL LAB CHEMISTRY METHOD 03/11/2024 2:58 PM [facility] Creatinine 1.34(H) 0.50 - 1.10 mg/dL LAB CHEMISTRY METHOD 03/11/2024 2:58 PM [facility] eGFR 42(L) >=60 mL/min/1. 73m2 LAB CHEMISTRY METHOD 03/11/2024 2:58 PM [facility] Comment:Calculation based on the??Chronic Kidney Disease Epidemiology Collaboration (CKD-EPI) equation refit??without adjustment for race. BUN/Creatinine Ratio 14.9 LAB CHEMISTRY METHOD 03/11/2024 2:58 PM [facility] Calcium 9.1 8.5 - 10.5 mg/dL LAB CHEMISTRY METHOD 03/11/2024 2:58 PM [facility] Blood Venous blood specimen / Unknown Venipuncture / Unknown 03/11/2024 7:17 AM EST 03/11/2024 11:24 AM EST Lavonne Irvin MD LAB BLOOD ORDERABLES [facility] [address] [place] [address], * (ABNORMAL) Complete blood count (03/11/2024 7:17 AM EST) WBC 4.7(L) 4.8 - 10.8 K/mcL LAB HEMETOLOGY METHOD 03/11/2024 11:48 AM [facility] RBC 3.70(L) 3.80 - 4.80 M/mcL LAB HEMETOLOGY METHOD 03/11/2024 11:48 AM [facility] Hemoglobin 11.2(L) 11.5 - 16.0 g/dL LAB HEMETOLOGY METHOD 03/11/2024 11:48 AM [facility] Hematocrit 35.8 35.0 - 47.0 % LAB HEMETOLOGY METHOD 03/11/2024 11:48 AM [facility] MCV 97.0 79.0 - 98.0 FL LAB HEMETOLOGY METHOD 03/11/2024 11:48 AM [facility] MCH 30.4 27.0 - 32.0 pcg LAB HEMETOLOGY METHOD 03/11/2024 11:48 AM [facility] MCHC 31.3(L) 32.0 - 37.0 g/dL LAB HEMETOLOGY METHOD 03/11/2024 11:48 AM [facility] RDW 15.5(H) 11.0 - 15.0 % LAB HEMETOLOGY METHOD 03/11/2024 11:48 AM [facility] Platelets 166 130 - 400 K/mcL LAB HEMETOLOGY METHOD 03/11/2024 11:[address] [facility] MPV 10.6 7.0 - 11.0 FL LAB HEMETOLOGY METHOD 03/11/2024 11:[address] [facility] NRBC 0.0 <1.0 % LAB HEMETOLOGY METHOD 03/11/2024 11:[address] [facility] NRBC Absolute 0.00 <0.10 K/mcL LAB HEMETOLOGY METHOD 03/11/2024 11:[address] [facility] Blood Venous blood specimen / Unknown Venipuncture / Unknown 03/11/2024 7:17 AM EST 03/11/2024 11:24 AM EST Lavonne Irvin MD LAB BLOOD ORDERABLES [facility] [address] [place] [address], documented in this encounter Visit Diagnoses Diagnosis Essential (primary) hypertension Unspecified essential hypertension Acute kidney failure, unspecified (CMS/HCC) Acute kidney failure, unspecified documented in this encounter Care Teams High School Math Teacher Relationship Specialty Start Date End Date Travis Holbrook MD [address] [place] [address], [phone] PCP - General Family Medicine 02/28/24 documented as of this encounter
--- OUTSIDE RECORDS SUMMARY | 2024-05-02 12:04 | XMS_ITS | Encounter Summary ---
Author Organization [facility] Address [address] [place] [address] Care Team Providers Care Unstacker Name Role Phone Travis Holbrook MD Primary Care Provider Encounter Details Date Type Department Care Team (Late Contact Info) Description 03/22/[address] [facility] - Main Lab [address] [facility] [place] [address] Lavonne Irvin MD [address] [place] [address] Essential (primary) hypertension; Acute kidney failure, unspecified [...] PM EST Office Visit Orthopedic Surgery - [place] [address] [phone] Sathish Osorio MD 175 [facility] 250 [place], [place] [phone] documented as of this encounter Visit Diagnoses Diagnosis Essential (primary) hypertension Unspecified essential hypertension Acute kidney failure, unspecified (CMS/HCC) Acute kidney failure, unspecified documented in this encounter Care Teams Unstacker Relationship Specialty Start Date End Date Travsi Holbrook MD [address], [address] PCP - General Family Medicine 02/28/24 documented as of this encounter
--- OUTSIDE RECORDS SUMMARY | 2024-05-02 12:04 | XMS_ITS | Data Portability ---
Author Organization [facility], Main Office Address [address] [facility] [place] [address] Care Team Providers Care Furrier Apprentice Name Role Phone GINO MICHAEL OTHER [facility] OTHER Assessment No assessment recorded. Plan of [...] Address Organization Details Recorded Time Metabolic encephalopathy 55842892 Active 2023 Flor Michel NP [address] [facility], [address], [place], [address], [facility] 4 09:06:02 Bacteriuria 34757036 Active 2023 Flor Michel NP [address] [facility], [address], [place], [address], [facility] 4 09:06:42 Chronic pain 65344670 Active 2023 Flor Michel NP [address] [facility], [address], [place], [address], [facility] [employer] 4 09:06:51 Rheumatoid arthritis 41630736 Active 2023 Flor Michel NP [address] [facility], [address], [place], [address], [facility] [employer] 4 09:06:59 Essential hypertension 08818785 Active 2023 Flor Michel NP [address] [facility], [address], [place], [address], [facility] 4 09:07:06 Chronic obstructive pulmonary disease 26515744 Active 2023 Flor Michel NP [address], [place], [address], [facility] 4 09:07:11 Fracture of femur 52358827 Active 2023 Flor Michel NP [address], [place], [address], [facility] 4 09:08:02 Gastroesophage al reflux disease 511807093 Active 2023 Flor Michel NP [address] [facility], [address], [place], [address], [facility] 4 09:08:19 Depressive disorder 27505507 Active 2023 Flor Michel NP [address] [facility], [address], [place], [address], [facility] 4 09:08:43 Hypothyroidism 10288670 Active 2023 Flor Michel NP [address] [facility], [address], [place], [address], [facility] 4 09:17:20 Congestive heart failure 25007829 Active 2023 Flor Michel NP [address] [facility], [address], [place], [address], [facility] 4 09:28:03 Problem Notes None recorded. Medical Equipment None Reported. Allergies Allergen ID Allergen Name Allergen Category Reaction Reaction Severity Criticality Documentation Date Start Date Code Code System Note Provider Name and Address Organization Details Recorded Time 80543 lisinopri l medicatio n anaphylax is Not available unabletoasse ss 02/28/2024 42104 RxNorm Not Available Not Available Not Available 95015 Substance with sulfonami de structure and antibacte rial mechanism of action (substanc e) medicatio n rash Not available low 02/28/2024 61873 8003 SNOMED Not Available Not Available Not Available 59943 tramadol medicatio n rash Not [facility] 02/28/2024 72406 RxNorm Not Available Not Available Not Available 59407 Product containin g 3-hydroxy -3-methyl glutaryl- coenzyme A reductase inhibitor (product) medicatio n rash Not available unabletoasse 02/28/2024 79182 009 SNOMED Not Available Not Available Not Available 82391 hydrochlo rothiazid e medicatio n other Not available [facility] 02/28/2024 5487 RxNorm ? adver se react ion with abnor mal labs Not Available Not Available Not Available Vitals Date Recorded Body weight Heart rate Respiratory rate Body temperature Oxygen saturation Oxygen saturation in Arterial blood by Pulse oximetry Systolic blood pressure Diastolic blood pressure Provider Name and Address Organization Details Last Updated DateTime 4 95751.4 7 g 87 /min 18 /min 97.5 [degF] 97 % 97 % 132 mm[Hg] 68 mm[Hg] Flor Michel NP [address] [facility], [facility] [address], [place], [address], [employer] [facility] 08:26:33 Social History Question Answer Notes LastModified by Organizat ion Details LastModified Time Tobacco Smoking Status Former Smoker Flor Michel NP [address] [facility], [facility] [address], [place], [address], [facility] 02/28/2024 09:04:02 Do You Have An Advance [...] Time Pneumococcal conjugate PCV 13 0 completed [facility] 03/01/2024 12:57:19 pneumococcal polysaccharide PPV23 8 completed [facility] 03/01/2024 12:57:36 influenza, unspecified formulation 2 completed [facility] 03/01/2024 12:57:51 influenza, unspecified formulation [facility] 12:58:01 influenza, unspecified formulation 4 completed [facility] 03/01/2024 12:58:11 SARS-COV-2 (COVID-19) vaccine, UNSPECIFIED 1 completed [facility] 03/01/2024 12:58:28 SARS-COV-2 (COVID-19) vaccine, UNSPECIFIED 1 completed [facility] 03/01/2024 12:58:37 SARS-COV-2 (COVID-19) vaccine, UNSPECIFIED 2 completed [facility] 03/01/2024 12:58:44 zoster, unspecified formulation 8 completed [facility] 03/01/2024 12:59:01 Past Encounters Encounter ID Performer Location Encounter Start Date Encounter Closed Date Diagnosis/Indication Diagnosis SNOMED-CT Code Diagnosis ICD10 Code Diagnosis Note [id number] Flor Michel NP [address] [place] [address] 02/28/2024 08:21:30 02/29/2024 11:51:58 Metabolic encephalopathy 19040542 G93.41 felt resolved from abx from UTI or large amount of narcotics while in hosp resolved at d/cchanged from dilaudid to oxycodonem onitor for changes in ms Chronic pain 45897114 G8 9.29 with hx of fibromyalg ia [...] mg po qd ? pain or mood lfibfvjx44 /4 lidocaine patch to left knee am, left shoulder q pm. 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 for htnfurosem dereje 20 mg po qdmonitor bp, cardiac status Chronic ob structive pulmonary disease 79625314 J44.9 albuterol 2 puff po q 6 hours prn sob2 liters o2 at nocmonitor Depressive disorder 3548 9007 F32.A buproprion 450 mg qdduloxeti ne 60 mg qdpsych prn Gastroesop hageal reflux disease 700204775 K21.9 omeprazole 40 mg qdzofran 4 mg po q 8 prn n/vmonitor Hypothyroidism 42070370 E03.9 levothyrox ine 50 mcg qdtsh, free t4 prnmonitor Fracture of tibia 845882 02 S82.202D xray showing acute fracture of the medial aspect of the distal tibia adjacent to the medial condylar component of a total knee arthroplas ty and loosening of the tibial component of the left total knee prosthesis .wheelchai r bound with self transfer at baselinePT OT eval and treatShraul is NWB on the left lower extremity and no ortho surgery recommende d.FU outpt with surgeon in [place] recommende d.see chronic pain for management ergocalcif dajuan 1250 mcg po mondaysmon itor for changes, increased pain, or need for referral earlier Congestive heart failure 42515616 I50.9 lasix 20 mg po qdmonitor vitals, cardiac status Asthenia 66054597 R53.1 PT OT eval and treatwheel chair at baseline with self transfers, NWB to left tibiamonit or Recurrent falls 64359671 2 R29.6 PT OT eval and treatwheel chair at baseline with self transfers, NWB to left tibiamonit or Health Concerns Section Related Observation LastModified by Organization Detai ls LastModified Time None Recorded Concern Status LastModified by Organization Details LastModified Time None Recorded Advance Directives Directive Y: Payers Encounter Date Sequence Insurance Name Policy Number Policy Hassan Covered Member ID Hassan Member ID Guarantor Name 02/28/2024 1 [facility] (MEDICARE REPLACEMENT/A DVANTAGE - PPO) [id number] Alexandrea Renee [id number] Alexandrea Renee Notes Date Note Type Note [...] surgery recommended. FU outpt with surgeon in [place] recommended.Her pain was managed with dilaudid. She [...] okay, dialysis undecided Flor Michel NP [address] [facility], [address], [place], [address], [facility] [employer] 02/28/2024 09:52:32 OBGyn Episode No OBEpisode recorded.
--- OUTSIDE RECORDS SUMMARY | 2024-05-02 12:04 | XMS_ITS | Encounter Summary ---
Author Organization [facility] Address [address] [place] [address] Care Team Providers Care Quill Worker Name Role Phone Travis Holbrook MD Primary Care Provider [phone] Encounter Details Date Type Department Care Team (Late Contact Info) Description 03/07/2024 Lab Requisition [facility] - Main Lab [address] [facility] [address] Lavonne Irvin MD [address] [place] [address] Essential (primary) hypertension; Acute kidney failure, unspecified [...] PM EST Office Visit Orthopedic Surgery - [place] [address] [phone] Sathihs Osorio MD 175 [facility] 250 [place], [place] [phone] documented as of this encounter Procedures Procedure Name Priority Date/Time Associated Diagnosis Comments COMPLETE BLOOD COUNT Routine 03/07/2024 6:00 AM EST Essential (primary) hypertension Acute kidney failure, unspecified (CMS/HCC) BASIC METABOLIC PANEL Routine 03/07/2024 6:00 AM EST Essential (primary) hypertension Acute kidney failure, unspecified (CMS/HCC) documented in this encounter Results * (ABNORMAL) Basic metabolic panel (03/07/2024 6:00 AM EST) Sodium 140 133 - 145 mmol/L LAB CHEMISTRY METHOD 03/07/2024 11:23 AM [facility] Potassium 4.5 3.5 - 5.5 mmol/L LAB CHEMISTRY METHOD 03/07/2024 11:23 AM [facility] Chloride 106 96 - 110 mmol/L LAB CHEMISTRY METHOD 03/07/2024 11:23 AM [facility] CO2 29 21 - 32 mmol/L LAB CHEMISTRY METHOD 03/07/2024 11:23 AM [facility] Anion Gap 5 3 - 11 LAB CHEMISTRY METHOD 03/07/2024 11:23 AM [facility] Glucose 78 70 - 100 mg/dL LAB CHEMISTRY METHOD 03/07/2024 11:23 AM [facility] BUN 25 5 - 25 mg/dL LAB CHEMISTRY METHOD 03/07/2024 11:23 AM [facility] Creatinine 1.27(H) 0.50 - 1.10 mg/dL LAB CHEMISTRY METHOD 03/07/2024 11:23 AM [facility] eGFR 45(L) >=60 mL/min/1. 73m2 LAB CHEMISTRY METHOD 03/07/2024 11:23 AM [facility] Comment:Calculation based on the??Chronic Kidney Disease Epidemiology Collaboration (CKD-EPI) equation refit??without adjustment for race. BUN/Creatinine Ratio 19.7 LAB CHEMISTRY METHOD 03/07/2024 11:23 AM [facility] Calcium 8.6 8.5 - 10.5 mg/dL LAB CHEMISTRY METHOD 03/07/2024 11:23 AM [facility] Blood Venous blood specimen / Unknown Venipuncture / Unknown 03/07/2024 6:00 AM EST 03/07/2024 10:35 AM EST Lavonne Irvin MD LAB BLOOD ORDERABLES [facility] [address] [place] [address], * (ABNORMAL) Complete blood count (03/07/2024 6:00 AM EST) WBC 4.8 4.8 - 10.8 K/mcL LAB HEMETOLOGY METHOD 03/07/2024 10:54 AM [facility] RBC 3.70(L) 3.80 - 4.80 M/mcL LAB HEMETOLOGY METHOD 03/07/2024 10:54 AM [facility] Hemoglobin 11.1(L) 11.5 - 16.0 g/dL LAB HEMETOLOGY METHOD 03/07/2024 10:54 AM [facility] Hematocrit 34.6(L) 35.0 - 47.0 % LAB HEMETOLOGY METHOD 03/07/2024 10:54 AM [facility] MCV 94.3 79.0 - 98.0 FL LAB HEMETOLOGY METHOD 03/07/2024 10:54 AM [facility] MCH 30.2 27.0 - 32.0 pcg LAB HEMETOLOGY METHOD 03/07/2024 10:54 AM [facility] MCHC 32.1 32.0 - 37.0 g/dL LAB HEMETOLOGY METHOD 03/07/2024 10:54 AM [facility] RDW 15.2(H) 11.0 - 15.0 % LAB HEMETOLOGY METHOD 03/07/2024 10:54 AM [facility] Platelets 211 130 - 400 K/mcL LAB HEMETOLOGY METHOD 03/07/2024 10:54 AM EST [facility] MPV 10.3 7.0 - 11.0 FL LAB HEMETOLOGY METHOD 03/07/2024 10:54 AM EST [facility] NRBC 0.0 <1.0 % LAB HEMETOLOGY METHOD 03/07/2024 10:54 AM EST [facility] NRBC Absolute 0.00 <0.10 K/mcL LAB HEMETOLOGY METHOD 03/07/2024 10:54 AM EST [facility] Blood Venous blood specimen / Unknown Venipuncture / Unknown 03/07/2024 6:00 AM EST 03/07/2024 10:35 AM EST Lavonne Irvin MD LAB BLOOD ORDERABLES [facility] [address] [place], [place] [address] [phone] documented in this encounter Visit Diagnoses Diagnosis Essential (primary) hypertension Unspecified essential hypertension Acute kidney failure, unspecified (CMS/HCC) Acute kidney failure, unspecified documented in this encounter Care Teams Quill Worker Relationship Specialty Start Date End Date Travis Holbrook MD [address] [place] [address], [phone] PCP - General Family Medicine 02/28/24 documented as of this encounter
--- OUTSIDE RECORDS SUMMARY | 2024-05-02 12:04 | XMS_ITS | Continuity of Care Document ---
Author Organization [facility] Address [address] [place] [address] Care Team Providers Care Remelt Furnace Expediter Name Role Phone Dave REGIONAL LOSS PREVENTION MANAGER, Namita Henry Primary Care Physician Encounter [facility] [place] Date(s): 03/11/24 - 04/10/24 [facility] [address] [place], [place] [address] Attending Physician: Laura Delacruz Admitting Physician: Laura Delacruz Referring Physician: trLaura Encounter Type: Triage Allergies, Adverse Reactions, Alerts Substance Criticality Severity Reaction Reaction Severity Status sulfADIAZINE 1 Rash Activ e lisinopril 2 Anaphylaxis Activ e TraMADol Hydrochloride 3 Rash Active statins 4 Active fentaNYL 5 Active 1rash 2anaphylaxis, 2017 [facility] 3 serotonin syndrome , while she was also taking Cymbalta, 2016 4leg pain 5adhesive causes rash Immunizations Given and Recorded Vaccine Date Status Refusal Reason SARS-CoV-2 (COVID-19) mRNA-1273 vaccine 06/25/20 G iven SARS-CoV-2 (COVID-19) mRNA-1273 vaccine 05/28/20 G iven Medications amLODIPine 10 mg oral tablet 10 mg, 1, tablet, By Mouth, Every 24 hours, # 30 tablet, Refills 0, Tot. Refills 0, Maintenance, 07/07/17 4:47:34 PM EDT, Route to Pharmacy Electronically, [facility] Start Date: 07/07/17 Stop Date: 08/06/17 Status: Ordered Quantity: 30.0 Unit: tablet Repeat number: 1 chlorthalidone 25 mg oral tablet 12.5 mg, 0.5, tablet, By Mouth, Daily, # 15 tablet, Refills 0, Tot. Refills 0, Maintenance, 07/09/1811:54:36 PM EDT, Route to Pharmacy Electronically, [facility] 3 Start Date: 07/08/17 Stop Date: [...] 12:56:34 PM EDT, Route to Pharmacy Electronically, [facility] 3 Start Date: 07/08/17 Stop Date: [...] ( moderate disability ) on 09/09/16; initial [place] Back PainScale: 62 on 09/09/16; initial [place]: 9 on 09/09/16 2SOAPP-R: 18 on 09/09/16 3Pain relevant problem list, see below Social History Social History Type Response Smoking Status Current every day sm oker; Type: Cigarettes; Tobacco use times per day: 1/2 ppd; entered on: 09/09/16 Sex Sex Representation Female (finding) Patient Care team information Care Team Personnel Name: Alyssa Renee RN Position: [facility] ED RN W/OE and Tasks Member Role: Primary Care Nurse Name: Namita Acosta NP Position: [facility] Outreach Member Role: PCP Address: [address] [place] [address] Internal Medicine [address] Telecom: Care Team Related Persons Name: ANDREEA MARTEL Name: NOA BREWSTER Insurance Providers Guarantor name: BENJA MARTEL Health Plan Information #: [address] [facility] MCR REPLC Member Number: NA Policy Number: NA Group Number: NA Health Plan Information #: 2 Payer: MEDICARE PART B OUTPT Member Number: NA Policy Number: NA Group Number: NA Health Plan Information #: 3 Payer: [facility] SUP Member Number: NA Policy Number: NA Group Number: NA
--- OUTSIDE RECORDS SUMMARY | 2024-05-02 12:04 | XMS_ITS | Encounter Summary ---
Author Organization [facility] Address [address] [place] [address] Care Team Providers Care Industrial Designer Name Role Phone Travis Holbrook MD Primary Care Provider [phone] Encounter Details Date Type Department Care Team (Late st Contact Info) Description 02/28/2024 Lab Requisition [facility] - Main Lab 299 [facility] [place] [address] Travis Holbrook MD [address] [place] [address] 204 [facility] [phone] Other intermediate manager (current) drug therapy Social History Tobacco Use [...] PM EST Office Visit Orthopedic Surgery - [place] [address] [phone] Sathish Osorio MD [address] [phone] documented as of this encounter Procedures Procedure Name Priority Date/Time Associated Diagnosis Comments COMPLETE BLOOD COUNT Routine 02/28/2024 6:48 AM EST Other intermediate manager (current) drug therapy BASIC METABOLIC PANEL Routine 02/28/2024 6:48 AM EST Other fdc (current) drug therapy documented in this encounter Results * (ABNORMAL) Basic metabolic panel (02/28/2024 6:48 AM EST) Sodium 137 133 - 145 mmol/L LAB CHEMISTRY METHOD 02/28/2024 12:05 PM [facility] Potassium 4.2 3.5 - 5.5 mmol/L LAB CHEMISTRY METHOD 02/28/2024 12:05 PM [facility] Chloride 103 96 - 110 mmol/L LAB CHEMISTRY METHOD 02/28/2024 12:05 PM [facility] CO2 31 21 - 32 mmol/L LAB CHEMISTRY METHOD 02/28/2024 12:05 PM [facility] Anion Gap 3 3 - 11 LAB CHEMISTRY METHOD 02/28/2024 12:05 PM [facility] Glucose 81 70 - 100 mg/dL LAB CHEMISTRY METHOD 02/28/2024 12:05 PM [facility] BUN 26(H) 5 - 25 mg/dL LAB CHEMISTRY METHOD 02/28/2024 12:05 PM [facility] Creatinine 1.00 0.50 - 1.10 mg/dL LAB CHEMISTRY METHOD 02/28/2024 12:05 PM [facility] eGFR 60 >=60 mL/min/1. 73m2 LAB CHEMISTRY METHOD 02/28/2024 12:05 PM [facility] Comment:Calculation based on the??Chronic Kidney Disease Epidemiology Collaboration (CKD-EPI) equation refit??without adjustment for race. BUN/Creatinine Ratio 26.0 LAB CHEMISTRY METHOD 02/28/2024 12:05 PM [facility] Calcium 9.0 8.5 - 10.5 mg/dL LAB CHEMISTRY METHOD 02/28/2024 12:05 PM [facility] Blood Venous blood specimen / Unknown Venipuncture / Unknown 02/28/2024 6:48 AM EST 02/28/2024 10:45 AM EST Travis Holbrook MD LAB BLOOD ORDERABLES [facility] [address] [place] [address], * (ABNORMAL) Complete blood count (02/28/2024 6:48 AM EST) WBC 6.1 4.8 - 10.8 K/mcL LAB HEMETOLOGY METHOD 02/28/2024 11:33 AM [facility] RBC 3.80 3.80 - 4.80 M/mcL LAB HEMETOLOGY METHOD 02/28/2024 11:33 AM [facility] Hemoglobin 11.4(L) 11.5 - 16.0 g/dL LAB HEMETOLOGY METHOD 02/28/2024 11:33 AM [facility] Hematocrit 36.3 35.0 - 47.0 % LAB HEMETOLOGY METHOD 02/28/2024 11:33 AM [facility] MCV 95.3 79.0 - 98.0 FL LAB HEMETOLOGY METHOD 02/28/2024 11:33 AM [facility] MCH 29.9 27.0 - 32.0 pcg LAB HEMETOLOGY METHOD 02/28/2024 11:33 AM [facility] MCHC 31.4(L) 32.0 - 37.0 g/dL LAB HEMETOLOGY METHOD 02/28/2024 11:33 AM [facility] RDW 15.0 11.0 - 15.0 % LAB HEMETOLOGY METHOD 02/28/2024 11:33 AM [facility] Platelets 180 130 - 400 K/mcL LAB HEMETOLOGY METHOD 02/28/2024 11:33 AM [facility] MPV 10.5 7.0 - 11.0 FL LAB HEMETOLOGY METHOD 02/28/2024 11:33 AM EST [facility] NRBC 0.0 <1.0 % LAB HEMETOLOGY METHOD 02/28/2024 11:33 AM EST [facility] NRBC Absolute 0.00 <0.10 K/mcL LAB HEMETOLOGY METHOD 02/28/2024 11:33 AM EST [facility] Blood Venous blood specimen / Unknown Venipuncture / Unknown 02/28/2024 6:48 AM EST 02/28/2024 10:45 AM EST Travis Holbrook MD LAB BLOOD ORDERABLES [facility] [address] [phone] documented in this encounter Visit Diagnoses Diagnosis Other fdc (current) drug therapy documented in this encounter Care Teams Industrial Designer Relationship Specialty Start Date End Date Travis Holbrook MD [address] [place] [address], [phone] PCP - General Family Medicine 02/28/24 documented as of this encounter
--- OUTSIDE RECORDS SUMMARY | 2024-05-02 12:04 | XMS_ITS ---
Author Organization [facility] Address Unknown Allergies, Adverse Reactions, Alerts Substance Reaction Status Noted Date Resolved Date traMADol active 10/18/2023 Sulfa Antibiotics active 10/18/2023 Statins active 10/18/2023 Lisinopril active 10/18/2023 hydroCHLOROthiazide active 10/18/2023 Problems Problem Status Start Date End Date PERIPROSTHETIC FRACTURE AROU ND INTERNAL PROSTHETIC LEFT KNEE JOINT, SUBSEQUENT ENCOUNTER (Primary) (M97.12XD - ICD-10-CM) ACTIVE 03/05/2024 METABOLIC ENCEPHALOPATHY (Pr imary) (G93.41 - ICD-10-CM) RESOLVED 10/18/2023 03/04/2024 RHEUMATOID ARTHRITIS, UNSPECIFIED (M06.9 - ICD-10-CM) ACTIVE 03/05/2024 FIBROMYALGIA (M79.7 - ICD-10-CM) ACTIVE 03/05/20 HYPOTENSION, UNSPECIFIED (I95.9 - ICD-10-CM) RESOLVED 10/18/2023 03/05/2024 UNSPECIFIED FALL, SUBSEQUENT ENCOUNTER (W19.XXXD - ICD-10-CM) ACTIVE 03/05/2024 ACUTE KIDNEY FAILURE, UNSPECIFIED (N17.9 - ICD-10-CM) RESOLVED 10/18/2023 02/26/2024 ESSENTIAL (PRIMARY) HYPERTENSION (I10 - ICD-10-CM) RES OLVED 10/18/2023 02/26/2024 CHRONIC OBSTRUCTIVE PULMONAR Y DISEASE, UNSPECIFIED (J44.9 - ICD-10-CM) RESOLVED 10/18/2023 03/04/2024 RHEUMATOID ARTHRITIS, UNSPECIFIED (M06.9 - ICD-10-CM) RESOLVED 10/18/2023 02/26/2024 HYPOTHYROIDISM, UNSPECIFIED (E03.9 - ICD-10-CM) RESOLV ED 10/18/2023 03/04/2024 UNSPECIFIED MOOD [AFFECTIVE] DISORDER (F39 - ICD-10-CM) ACTIVE 03/05/2024 ESSENTIAL (PRIMARY) HYPERTENSION (I10 - ICD-10-CM) ACT YURI 03/05/2024 CHRONIC OBSTRUCTIVE PULMONAR Y DISEASE, UNSPECIFIED (J44.9 - ICD-10-CM) ACTIVE 03/05/2024 HYPOTHYROIDISM, UNSPECIFIED (E03.9 - ICD-10-CM) ACTIVE 03/05/2024 EMPHYSEMA, UNSPECIFIED (J43.9 - ICD-10-CM) ACTIVE 03/05/2024 MUSCLE WEAKNESS (GENERALIZED) (M62.81 - ICD-10-CM) ACT YURI 03/05/2024 DIFFICULTY IN WALKING, NOT E LSEWHERE CLASSIFIED (R26.2 - ICD-10-CM) ACTIVE 03/05/2024 PAIN IN LEFT KNEE (M25.562 - ICD-10-CM) ACTIVE 05/06/2023 OTHER CHRONIC PAIN (G89.29 - ICD-10-CM) ACTIVE 05/06/2023 DEPRESSION, UNSPECIFIED (F32.A - ICD-10-CM) ACTIVE 03/05/2024 FIBROMYALGIA (M79.7 - ICD-10-CM) RESOLVED 10/18/19 24 03/04/2024 PRIMARY PULMONARY HYPERTENSION (I27.0 - ICD-10-CM) RES OLVED 10/18/2023 03/04/2024 URINARY TRACT INFECTION, SIT E NOT SPECIFIED (N39.0 - ICD-10-CM) RESOLVED 10/18/2023 03/04/2024 UNSPECIFIED MOOD [AFFECTIVE] DISORDER (F39 - ICD-10-CM) RESOLVED 10/18/2023 03/04/2024 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 (M05.19 - ICD-10-CM) RESOLVED 10/18/202311/2023 EMPHYSEMA, UNSPECIFIED (J43.9 - ICD-10-CM) RESOLVED 10/18/2023 03/04/2024 MUSCLE WEAKNESS (GENERALIZED) (M62.81 - ICD-10-CM) RES OLVED 10/18/2023 03/04/2024 UNSTEADINESS ON FEET (R26.81 - ICD-10-CM) RESOLVED 10/18/2023 03/04/2024 EXTENDED SPECTRUM BETA LACTA GOLDIE (ESBL) RESISTANCE (Z16.12 - ICD-10-CM) RESOLVED 10/18/2023 03/04/2024 GASTRO-ESOPHAGEAL REFLUX DIS EASE WITH ESOPHAGITIS, WITHOUT BLEEDING (K21.00 - ICD-10-CM) RESOLVED 10/18/2023 Encounters Encounter Performer Performer Role Encounter Diagnoses Location Date Discharge - Discharged to home or self care - [facility] - Private home/apt. with home health services [facility] 10/18/2023 01:45 pm EDT - 10/24/2023 01:30 pm EDT Discharge - Discharged to home or self care - [facility] - Private home/apt. with home health services [facility] 03/05/2024 05:47 pm EST - 03/23/2024 12:11 pm EST Immunizations Vaccine Date Influenza 01/20/2023 12:00 am EDT Zostavax(Shingles) 02/08/2018 12:00 am EST Pneumococcal Conjugate Vaccine (PCV13) 0 05/01/2019 12:00 am EST Pneumococcal Polysaccharide Vaccine (PPS V23) 09/23/2017 12:00 am EDT SARS-COV-2 (COVID-19) 06/25/2020 12:00 a m EDT SARS-COV-2 (COVID-19) 05/28/2020 12:00 a m EST SARS-COV-2 (COVID-19 BOOSTER) 03/29/2021 12:00 am EST Influenza, high-dose, split virus, triva lent 12/27/2023 12:00 am EDT Social History Vital Signs Vital Sign Reading Time Taken painLevel 8 {score} 03/23/2024 12:16 pm EST painLevel 0 {score} 03/23/2024 09:02 am EST painLevel 0 {score} 03/23/2024 07:37 am EST painLevel 4 {score} 03/23/2024 05:16 am EST painLevel 0 {score} 03/23/2024 01:33 am EST painLevel 0 {score} 03/22/2024 11:27 pm EST painLevel 2 {score} 03/22/2024 06:40 pm EST painLevel 0 {score} 03/22/2024 06:11 pm EST painLevel 0 {score} 03/22/2024 10:01 am EST painLevel 0 {score} 03/22/2024 10:01 am EST painLevel 2 {score} 03/22/2024 06:14 am EST painLevel 2 {score} 03/22/2024 05:45 am EST painLevel 6 {score} 03/22/2024 03:01 am EST painLevel 4 {score} 03/22/2024 12:47 am EST painLevel 4 {score} 03/22/2024 12:47 am EST painLevel 7 {score} 03/21/2024 10:56 pm EST painLevel 5 {score} 03/21/2024 09:01 pm EST painLevel 4 {score} 03/21/2024 09:00 pm EST painLevel 8 {score} 03/21/2024 06:32 pm EST painLevel 0 {score} 03/21/2024 10:20 am EST painLevel 0 {score} 03/21/2024 10:19 am EST painLevel 8 {score} 03/21/2024 08:30 am EST painLevel 0 {score} 03/21/2024 06:10 am EST painLevel 5 {score} 03/21/2024 02:44 am EST systolicValue 146 mm[Hg] 03/23/2024 12:15 pm EST diastolicValue 68 mm[Hg] 03/23/2024 12:15 pm EST systolicValue 146 mm[Hg] 03/23/2024 11:02 am EST diastolicValue 68 mm[Hg] 03/23/2024 11:02 am EST systolicValue 121 mm[Hg] 03/22/2024 09:56 pm EST diastolicValue 67 mm[Hg] 03/22/2024 09:56 pm EST systolicValue 127 mm[Hg] 03/22/2024 06:12 pm EST diastolicValue 66 mm[Hg] 03/22/2024 06:12 pm EST systolicValue 132 mm[Hg] 03/22/2024 10:00 am EST diastolicValue 68 mm[Hg] 03/22/2024 10:00 am EST systolicValue 150 mm[Hg] 03/21/2024 09:02 pm EST diastolicValue 78 mm[Hg] 03/21/2024 09:02 pm EST systolicValue 150 mm[Hg] 03/21/2024 08:55 pm EST diastolicValue 78 mm[Hg] 03/21/2024 08:55 pm EST systolicValue 137 mm[Hg] 03/21/2024 08:41 am EST diastolicValue 77 mm[Hg] 03/21/2024 08:41 am EST heartrate 75 /min 03/23/2024 12:15 pm EST heartrate 75 /min 03/23/2024 11:03 am EST heartrate 75 /min 03/22/2024 06:12 pm EST heartrate 74 /min 03/22/2024 10:00 am EST heartrate 72 /min 03/21/2024 09:02 pm EST heartrate 75 /min 03/21/2024 08:41 am EST respirations 18 /min 03/23/2024 11:03 am EST respirations 18 /min 03/22/2024 06:12 pm EST respirations 16 /min 03/21/2024 09:02 pm EST temperature 97.9 [degF] 03/23/2024 11:03 am EST temperature 97.8 [degF] 03/22/2024 06:12 pm EST temperature 97.3 [degF] 03/21/2024 09:02 pm EST oxygenSaturation 98 % 03/23/2024 04:2 2 am EST oxygenSaturation 98 % 03/22/2024 06:1 2 pm EST oxygenSaturation 95 % 03/22/2024 04:0 5 pm EST oxygenSaturation 97 % 03/22/2024 12:5 2 am EST oxygenSaturation 96 % 03/21/2024 09:2 9 pm EST oxygenSaturation 95 % 03/21/2024 09:0 2 pm EST
[2024-05-02 12:53] LABS: Alanine Aminotransferase 19 U/L (0-31); Alkaline Phosphatase 135 U/L (39-117); Anion Gap 15 (12-20); Aspartate Amino Transferase 25 U/L (5-31); Bilirubin Total 0.4 mg/dL (0.0-1.0); Blood Urea Nitrogen 23 mg/dL (9-16); Calcium 9.9 mg/dL (8.4-10.2); Carbon Dioxide 26 mmol/L (22-29); Chloride 100 mmol/L (96-108); Creatinine Clr Calc Pharmacy 43.9; Estimated Glomerular Filt Rate 39; Glucose Random 115 mg/dL (60-115); Magnesium 2.2 mg/dL (1.6-2.6); Potassium 4.1 mmol/L (3.3-5.1); Sodium 137 mmol/L (135-145); Total Protein 8.6 g/dL (6.5-8.0)
[2024-05-02 13:24] VITALS: BP 152/79; PULSE 62; RESP 18; TEMP 36.6; O2SAT 96
[2024-05-02 14:17] LABS: Appearance Urine Clear; Color Urine Dark Yellow; Glucose Urine UA Negative (Negative); Leukocyte Esterase Urine Small (1+) (Negative); Nitrite Urine Negative (Negative); PH 5.5 (5.0-9.0); Specific Gravity - Urine 1.015 (1.005-1.025); UMIC TRIGGER UACC YES; Urine Blood Negative (Negative); Urine Ketones Negative (Negative); Urine Protein Negative (Neg-Trace)
[2024-05-02 14:26] LABS: Bacteria Urine None Seen (None Seen); RBC Urine 0-2 /HPF (0-2); UACC Culture Trigger YES
[2024-05-02 15:49] VITALS: BP 152/79; PULSE 62; O2SAT 96
[2024-05-02] MEDS: Nitrofurantoin Monohyd/M-Cryst 100 MG CAPSULE PO ×2 (16:23→20:04)
[2024-05-02 17:06] LABS: Venous Blood Gas Refer to POC result
[2024-05-02 17:07] LABS: VBG Base Excess 4.9 mmol/L; VBG HCO3 31 mmol/L (22-26); VBG pCO2 56 mmHg; VBG pH 7.35 (7.32-7.43); VBG pO2 34 mmHg
[2024-05-02 17:12] LABS: Ammonia 24 umol/L (13-55)
[2024-05-02 17:20] LABS: TSH reflex Free T4 0.44 uIU/mL (0.32-4.0)
[2024-05-02 17:37] VITALS: BP 144/80; PULSE 68; RESP 16; TEMP 37; O2SAT 97
[2024-05-02] MEDS: oxyCODONE HCl Immed Release 5 MG TABLET 20 MG PO (20:05)
[2024-05-02 20:07] VITALS: BP 173/62; PULSE 73; RESP 20; TEMP 36.6; O2SAT 95
--- NOTE | 2024-05-02 20:36 | MHC.CM.ED ---
CM met with patient at the request of Arlette CHERRY. Pt lives alone. Knows she is here because of a UTI and that her doctor wanted her to come to ED. Knows she gets confused with UTI's. Pt denies and DME at home. States she has a TILE DESIGNER 7 days a week for 2 hours each day. She has 1 TILE DESIGNER from [facility] arranged by [facility] and another TILE DESIGNER on the weekends. She does not remember the name of the agency. She states she gets MOW twice a week. She requested CM call her daughter for details. Pt does not want STR. PT is recommending STR or 24/7 care due to her confusion. Pt is agreeable to go to [facility], as she has been there before. HCP on file. HCP#1/daughter Susy ([phone]) and HCP#2Steven Aidan ([phone]). CM spoke with Susy. Susy is very concerned about her mother's mental state and increased confusion. She states her mother gets that way with UTI's. She does not think she should be discharged home and is agreeable to STR. She tells CM that her mother has had a bad experience in the past with [facility] and she does not want her to go back there. Susy tells CM that her mother is wheelchair bound, has a motorized wheelchair and can pivot. Pt did not tell CM this. Susy is also concerned about her mother's chronic pain and medication management, as she takes Oxycodone 20 mg every 4 hours. Susy tells CM that her mother has gone into withdrawal in the past when she doesn't get her medications. Pt uses the [facility] in [place] and in [place]. Her PCP is Suyapa Acosta ASSISTANT PROGRAM MANAGER in [place]. Local referrals will be made. Pt has [employer] Medicare Advantage and Medicaid. Jose Carlos CHERRY is aware of above and pain management regime. Ordered oxycodone and addiction medicine consult. RN aware of need for med rec. CM jc follow for safe discharge plan.
[2024-05-02 22:00] VITALS: RESP 16
[2024-05-03 02:30] VITALS: BP 178/81; PULSE 78; RESP 20; TEMP 37.3; O2SAT 96
[2024-05-03] MEDS: oxyCODONE HCl Immed Release 5 MG TABLET 20 MG PO ×3 (02:32→10:53)
[2024-05-03] MEDS: Nitrofurantoin Monohyd/M-Cryst 100 MG CAPSULE PO (06:59)
[2024-05-03] MEDS: Acetaminophen 325 MG TABLET 650 MG PO (06:59)
--- NOTE | 2024-05-03 08:59 | PC.NURSE ---
patient moved into hospital bed for comfort. has been a one-two assist to commode for the bathroom. reports chronic bilateral knee pain that has been increasing her weakness as of late. ate breakfast, awaiting verification on home medications. call phillips within reach.
--- NOTE | 2024-05-03 09:22 | PHA.MEDREC ---
Pharmacy Consult ? Medication Reconciliation Pharmacy has reviewed the medication reconciliation completed by nursing. Went and spoke with pt to confirm medications. Pt is only on Prilosec and not Nexium also. Pt takes prednisone 4mg daily, and an additional 5mg daily prn for pain. Pt also added that she was on many otc meds (ibuprofen, melatonin, biotin, b complex, and daily multivitamin. When asked if she was still on Cefadroxil (LF 2/325 for 7 days), she stated no and that she was now on Macrobid (no claims), but did not remeber her last dose. These were both left off the med rec.
[2024-05-03 09:46] VITALS: BP 150/63; PULSE 68
[2024-05-03] MEDS: atenoloL 25 MG TABLET PO (09:46)
[2024-05-03] MEDS: buPROPion HCl XL 150 MG TAB.ER.24H PO (09:46)
[2024-05-03] MEDS: Levothyroxine Sodium 50 MCG TABLET PO (09:47)
[2024-05-03] MEDS: Omeprazole 40 MG CAPSULE.DR PO (09:47)
[2024-05-03] MEDS: Furosemide 20 MG TABLET PO (09:47)
[2024-05-03] MEDS: Folic Acid 1 MG TABLET PO (09:47)
[2024-05-03 09:53] VITALS: BP 150/63; PULSE 68; RESP 18; TEMP 36.8; O2SAT 94
[2024-05-03 09:57] LABS: COVID-19 Test Negative (Negative); IDNOW Serial# 58CA691E
--- NOTE | 2024-05-03 10:40 | MHC.CM.ED ---
Patient remains in ER. Александр Marie is willing to offer a bed. Met with patient in regards to discharge planning. Patient states she feels she can safely return home. Patient agreeable to T/W speaking to daughter, Susy. Spoke with Susy via telephone at [phone]. Susy was originally concerned about patient's ability to return home. However, Susy spoke with patient via telephone and feels she can safely return home. Patient will need BLS transport. Susana GONZALEZ booked for 12pm. [facility] with chart. Patient, Philly Jain RN and Hayley PALMER aware. Continue to monitor for d/c needs.
[2024-05-03] MEDS: buPROPion HCl XL 300 MG TAB.ER.24H PO (10:53)
[2024-05-03 13:17] VITALS: BP 150/63; PULSE 68; RESP 18; TEMP 36.8; O2SAT 94
== END 2024-05-03 13:19 | disposition home or self-care (01) ==
PROVIDERS: Physician Assistant; Physician Assistant Medical; Registered Nurse Emergency; Emergency Provider Emergency Medicine; PCP Nurse Practitioner Adult Health
DX: N30.00 Acute cystitis without hematuria (principal); R41.0 Disorientation, unspecified; R26.2 Difficulty in walking, not elsewhere classified; M79.7 Fibromyalgia; I10 Essential (primary) hypertension; Z79.899 Other long term (current) drug therapy; Z87.440 Personal history of urinary (tract) infections; Z03.818 Encounter for observation for suspected exposure to other biological agents ruled out; Z87.891 Personal history of nicotine dependence
CPT/HCPCS: 36415; 70450; 80053; 81001; 82140; 82803; 83735; 84443; 85025; 87086; 87635; 97162; 99285

== ENCOUNTER → 2024-05-02 14:58 | Outpatient (BNV) | payer MEDICARE, MEDICAID, SELFPAY | PROVIDERS: Emergency Provider Emergency Medicine; PCP Nurse Practitioner Adult Health; Visit Provider Radiology Diagnostic Radiology | DX: R41.0 Disorientation, unspecified (principal) | CPT/HCPCS: 70450 ==

== ENCOUNTER 2024-05-21 10:56 | Inpatient (IN) | payer MEDICARE, MEDICAID, SELFPAY ==
[2024-05-21] VITALS (10 sets, daily range): BP systolic 113–179; BP diastolic 71–99; PULSE 71–106; RESP 12–24; TEMP 36.5–37.4; O2SAT 88–98; BMI 33.9
--- NOTE | 2024-05-21 | ECG_ITS ---
Test Reason : sob Blood Pressure : */* mmHG Vent. Rate : 95 BPM Atrial Rate : 95 BPM P-R Int : 118 ms QRS Dur : 76 ms QT Int : 334 ms P-R-T Axes : 35 5 36 degrees QTcB Int : 419 ms Normal sinus rhythm Minimal voltage criteria for LVH, may be normal variant ( R in aVL ) Borderline ECG When compared with ECG of 19-Feb-2024 09:59, No significant change was found Referred By: Sukhdeep Al Electronically Signed By: KOSTAS MARTELL
--- NOTE | ~2024-05-21 | US_ITS ---
EXAMINATION: COLOR-FLOW DUPLEX IMAGING OF THE BILATERAL LOWER EXTREMITY ARTERIAL SYSTEM. VELOCITY MEASUREMENTS THROUGHOUT THE FEMORAL ARTERIES. CLINICAL INFORMATION: Bilateral toe discoloration. Evaluate for peripheral vascular disease. FINDINGS: Atheromatous Plaque: Mild to moderate scattered atheromatous plaque. RIGHT FEMORAL RUNOFF VELOCITIES: The right common femoral artery measures 137 cm/s and biphasic. (Mild stenosis). The right profunda femoral artery is 105 cm/s and is biphasic. The right proximal superficial femoral artery measures 187 cm/s and biphasic. (Mild stenosis). The right mid superficial femoral artery is 123 cm/s and biphasic. The right distal right superficial femoral artery measures 141 cm/s and is biphasic. (Mild stenosis). The right popliteal velocity measures 78 cm/s and is biphasic. The right posterior tibial artery velocity measures 71 cm/s and is triphasic. The right peroneal artery velocity measures 16.4 cm/s and is monophasic. The right anterior tibial artery velocity measures 24.1 cm/s and is monophasic. The right dorsalis pedis artery measures 23.9 cm/s and is monophasic. LEFT FEMORAL RUNOFF VELOCITIES: The left common femoral artery measures 199 cm/s and biphasic. (Mild to moderate stenosis). The left profunda femoral artery is 128 cm/s and is biphasic. (Mild stenosis). The left proximal superficial femoral artery measures 221 cm/s and triphasic. (Severe stenosis). The left mid superficial femoral artery is 114 cm/s and triphasic. The left distal right superficial femoral artery measures 168 cm/s and is biphasic. (Mild stenosis). The left popliteal velocity measures 114 cm/s and is biphasic. The left posterior tibial artery velocity measures 36.1 cm/s and is monophasic. The left peroneal artery velocity measures 47.3 cm/s and is biphasic. The left anterior tibial artery could not be visualized. (Possibly occluded) The left dorsalis pedis artery measures 36.1 cm/s and is biphasic. -There is bilateral lower extremity edema. US/US arterial duplex LE BI IMPRESSION: 1. Peripheral arterial testing with velocity measurements suggesting moderate peripheral vascular disease, as described above, worse on the left. 2. Severe stenosis suggested in the left proximal superficial femoral artery. 3. Scattered mild to moderate atherosclerotic disease is present. The left anterior tibial artery could not be visualized and may be occluded. Electronically signed by: Jeronimo James MD 05/21/2024 03:47 PM EMMANUEL
--- NOTE | ~2024-05-21 | US_ITS ---
EXAMINATION: US TRIPLEX LOWER EXTREMITY, BILATERAL CLINICAL INFORMATION: Edema, both lower extremities. COMPARISON: Ultrasound left lower extremity dated February 19, 2024 and bilateral lower extremity DVT ultrasound dated February 27, 2022. TECHNIQUE: Color-flow triplex imaging with spectral analysis and compression Doppler were performed on the bilateral lower extremities. FINDINGS: Respiratory variation, normal compression and augmented flow are noted throughout the visualized common femoral vein, superficial femoral vein, profunda femoral vein, popliteal vein, midcalf peroneal and posterior tibialis veins, both lower extremities.. There is edema pattern throughout the soft tissues both lower extremities.. There is a 3 x 1.5 cm lobulated anechoic abnormality in the left popliteal fossa without flow on color Doppler interrogation. Prominent 2.1 cm lymph nodes, right inguinal. Slow flow throughout the interrogated veins. US/US venous duplex LE BI IMPRESSION: No acute deep venous thrombosis involving the bilateral lower extremities. Negative exam. Questionable 3 cm left popliteal cyst.. Electronically signed by: George Low MD 05/21/2024 02:51 PM EST
--- NOTE | ~2024-05-21 | XR_ITS ---
EXAMINATION: XR CHEST CLINICAL INFORMATION: sob COMPARISON: January 07, 2023. TECHNIQUE: Frontal view of the chest was obtained. FINDINGS: Indistinct margins in the perihilar regions and prominence of the interstitial markings. No pneumothorax. Haziness in the lower hemithoraces. Cardiomediastinal silhouette margins are indistinct. Heart silhouette appears prominent. Multilevel thoracic spondylosis. Osteopenia versus osteoporosis. Degenerative changes in the shoulders. XR/XR chest 1V IMPRESSION: Pulmonary edema and bilateral pleural effusions, small to moderate volume. Cardiomegaly versus pericardial effusion. Electronically signed by: George Low MD 05/21/2024 12:09 PM EMMANUEL
--- NOTE | 2024-05-21 11:28 | ED_ITS ---
HPI - General Adult General Chief complaint: Dyspnea Stated complaint: SOB 96% RA, DUONEB GIVEN PER EMS Time Seen by Provider: 05/21/24 11:15 Source: patient, EMS, RN notes reviewed and old records reviewed Mode of arrival: EMS Limitations: altered mental status History of Present Illness ED Provider: DR. Al HPI narrative: 74-year-old female with past medical history significant for HTN, COPD, use 3 L of supplemental oxygen at nighttime, RA on prednisone/methotrexate, mood disorder, fibromyalgia, came from home for evaluation of increase joint pain patient is known to have rheumatoid arthritis, patient took her regular oxycodone medication at home with no relief of the pain, during the interview patient was mildly confused still able to provide history. Patient did not want to take her Lasix today did not want to go to the bathroom frequently. Found by EMS to be wheezing satting 91% on room air and in respiratory distress was given DuoNeb by EMS. Related Data Home Medications ?Medication ?Instructions ?Recorded ?Confirmed bupropion HCl 300 mg 24 hr tablet, 300 mg PO DAILY 08/23/21 05/03/24 extended release duloxetine 60 mg capsule,delayed 60 mg PO DAILY 08/23/21 05/03/24 release ergocalciferol (vitamin D2) 1,250 1,250 mcg PO MO 08/23/21 05/03/24 mcg (50,000 unit) capsule levothyroxine 50 mcg tablet 50 mcg PO DAILY@62908/23/21 05/03/24 methotrexate sodium 2.5 mg tablet 10 tab PO MO 08/23/21 05/03/24 omeprazole 40 mg capsule,delayed 40 mg PO DAILY@62908/23/21 05/03/24 release prednisone 1 mg tablet 4 mg PO DAILY 08/23/21 05/03/24 prednisone 5 mg tablet 5 mg PO DAILY PRN arthritis pain 02/16/22 05/03/24 pregabalin 200 mg capsule 200 mg PO BID 01/07/23 05/03/24 folic acid 1 mg tablet 1 mg PO DAILY 10/13/23 05/03/24 bupropion HCl 150 mg 24 hr tablet, 150 mg PO DAILY 11/25/23 05/03/24 extended release acetaminophen 325 mg tablet 650 mg PO Q4H PRN Moderate Pain 03/04/24 05/03/24 (Tylenol) (Scale Score 5-6) bisacodyl 10 mg rectal suppository 10 mg MN DAILY PRN Constipation 03/04/24 05/03/24 ipratropium 20 mcg-albuterol 100 1 puff inhalation Q6H PRN 03/04/24 05/03/24 mcg/actuation mist for inhalation Shortness Of Breath Or Wheezing (Combivent Respimat) lidocaine HCl 4 % topical patch 1 patch topical BID PRN Pain 03/04/24 05/03/24 biotin 5,000 mcg sublingual tablet 5,000 mcg sublingual DAILY 05/03/24 05/03/24 ibuprofen 200 mg tablet 600 mg PO Q6H PRN Pain 05/03/24 05/03/24 melatonin 10 mg tablet 10 mg PO BEDTIME 05/03/24 05/03/24 multivitamin 1 tab PO DAILY 05/03/24 05/03/24 vitamin B complex 1 cap PO DAILY 05/03/24 05/03/24 Previous Rx's ?Medication ?Instructions ?Recorded ondansetron 4 mg disintegrating 4 mg PO Q8H PRN nausea and 08/02/23 tablet vomiting #10 tabs atenolol 25 mg tablet 25 mg PO DAILY #30 tabs 10/17/23 doxazosin 2 mg tablet 2 mg PO BEDTIME #30 tabs 10/17/23 furosemide 20 mg tablet 20 mg PO DAILY #30 tabs 10/17/23 oxycodone 20 mg tablet 20 mg PO Q4H PRN pain (scale score 02/27/24 7-10) #20 tabs Allergies Allergy/AdvReac Type Severity Reaction Status Date / Time lisinopril [LISINOPRIL] Allergy Severe ANAPHYLAXIS Verified 05/21/24 11:15 Sulfa (Sulfonamide Allergy Intermediate RASH Verified 05/21/24 11:15 Antibiotics) [SULFA (SULFONAMIDE ANTIBIOTICS)] tramadol [TRAMADOL] Allergy Intermediate RASH Verified 05/21/24 11:15 [place]-OXT-BgX Reductase Allergy Rash Verified 05/21/24 11:15 Inhibitor [Vnbfymp-Ulw-Evr Reductase Inhibitor] hydrochlorothiazide [HCTZ] AdvReac Unknown ABNORMAL Verified 05/21/24 11:15 LABS? Review of Systems 2 Review of Systems: Yes Unobtainable due to mental status PMFSH Past Medical History Medical History Bacteriuria Urinary tract infection due to extended-spectrum beta lactamase (ESBL) producing Escherichia coli History of ESBL E. coli infection Osteomyelitis COPD (chronic obstructive pulmonary disease) Rheumatoid lung Hypothyroidism Congestive heart failure Fibromyalgia HTN (hypertension) Depression Rheumatoid arthritis Surgical History Hx of prior ablation treatment Knee joint replacement status Family History Family History Father No problems noted. 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 cleaning, cooking, shopping daily) Unable to assess alcohol history related to: Unknown Alcohol intake: never Patient Tobacco Use Status: Former Tobacco user Tobacco use type: Cigarette e-Cigarette/Vaping Use: Never Used Second Hand Smoke Exposure: No Advance Directives: Yes Advance Directives on File: Yes Advance Directives Date on File: 09/29/23 Do you have a plan to hurt others: No Plan service: No Physical Exam ED Vital Signs: Vital Signs - 24 hr 05/21/24 11:13 05/21/24 11:34 05/21/24 11:34 Temperature 99.4 F Pulse Rate 102 H Respiratory Rate 24 H Blood Pressure 123/77 Pulse Oximetry 91 L 88 L 94 Oxygen Delivery Method Room Air Room Air Nasal Cannula Oxygen Flow Rate 2 05/21/24 11:39 05/21/24 11:42 05/21/24 13:09 Temperature Pulse Rate 94 97 Respiratory Rate 14 20 Blood Pressure 125/83 148/91 H Pulse Oximetry 94 Oxygen Delivery Method Nasal Cannula Oxygen Flow Rate 2 05/21/24 14:38 Temperature Pulse Rate 71 Respiratory Rate 12 Blood Pressure 158/84 H Pulse Oximetry 95 Oxygen Delivery Method Nasal Cannula Oxygen Flow Rate 2 BMI result Body Mass Index 33.9 Vital signs have been reviewed and appear to be correct. Blood pressure elevated. Heart rate normal. Respiratory rate normal. Temperature normal. Oxygen saturation normal. Appearance: Alert. Oriented X3. No acute distress. Head: Normal external exam. Normocephalic. Atraumatic. No Lowe signs noted. No raccoon eyes noted Eyes: PERRLA. EOMI. Conjunctiva and sclera normal. Eyelids normal. ENT: TM's Normal. Pharynx normal. Uvula midline. Moist mucous membranes. No trismus noted. No drooling noted. No muffled voice noted. Neck: Normal inspection. Neck supple. FROM. No adenopathy. Thyroid Normal. No meningeal signs. No neck mass noted. CVS: Normal heart rate and rhythm. Heart sound normal. No murmurs noted. Pulses normal throughout. Respiratory: Mild respiratory distress, prolonged expiratory phase with expiratory wheezing. Chest nontender. No accessory muscle usage noted or decreased air movement noted. Abdomen: Soft and nontender. Bowel sounds normal in all 4 quadrants. No distention noted. No organomegaly noted. No visible injury noted. Back: No CVA tenderness. Full range of motion noted. Skin: Skin warm and dry. Normal skin color. Normal skin turgor. No rashes/lesions/lacerations noted. Extremities: +2 lower extremity edema left greater than right. Extremities exhibit normal range of motion. Extremities nontender. Purplish discoloration of all toes bilaterally. Neuro: Oriented X 3. Cranial nerve exam: II-XII are grossly intact No motor deficit. No sensory deficit. Reflexes normal. Course Reevaluation(s) Reevaluation #1: 1. Patient came in for arthritis pain which is under good control. 2. CHF exacerbation with bilateral lower extremities edema received 1 dose of Lasix. Venous ultrasound shows no evidence of DVT plan 3. Doing well with 2 L of supplemental oxygen. 4. Bilateral toes purple discoloration concern of peripheral vascular disease and ischemia, arterial ultrasound reveals mild peripheral vascular disease. Time: 16:14 Medications Administered Discontinued Medications Generic Name Dose Route Start Last Admin Trade Name Freq PRN Reason Stop Dose Admin Ceftriaxone Sodium 1 gm 05/21/24 11:25 05/21/24 11:39 Ceftriaxone Sodium 1 Gm Vial IVPUSH 05/21/24 11:26 1 gm ONCE ONE Administration Albuterol Sulfate 2.5 mg/ 0 mg 05/21/24 11:41 05/21/24 11:49 Albuterol/Ipratropium 3 ml INHALE 05/21/24 11:42 5 dose ONCE ONE Administration Furosemide 40 mg 05/21/24 12:21 05/21/24 13:09 Furosemide 40 Mg/4 Ml Vial IVPUSH 05/21/24 12:22 40 mg ONCE ONE Administration Protocol Magnesium Sulfate 2 gm in 50 mls @ 25 mls/hr 05/21/24 11:05/21/24 13:34 Magnesium Sulfate/H2o IV 05/21/24 13:24 Infused ONCE ONE Infusion Methylprednisolone Sodium Succinate 125 mg 05/21/24 11:25 05/21/24 11:34 Methylprednisolone Sod Succ 125 Mg/2 Ml Vial IVPUSH 05/21/24 11:26 125 mg ONCE ONE Administration Medical Decision Making Differential Diagnosis Differential Diagnoses: The differential diagnosis associated with the presentation includes (Pneumonia, pneumothorax, pleural effusion, hypercarbia, hypoxia, congestive heart failure, COPD exacerbation, PVD, DVT, electrolyte derangement.) Admission/Observation Consideration of admission/observation: Escalation of care including admission/observation considered Lab Data MDM Lab Attestation statement: I reviewed the patient's lab results. 05/21/24 11:05/21/24 13:20 Labs: Lab Results 05/21/24 05/21/24 05/21/24 Range/Units 11:26 11:29 11:40 WBC 8.4 (4.8-10.8) X10*3/uL RBC 4.22 (4.20-5.50) X10*6/uL Hgb 12.9 (12.0-16.0) g/dl Hct 39.6 (37.0-47.0) % MCV 93.8 (80.0-98.0) fL MCH 30.6 (27.0-33.0) pg MCHC 32.6 (31.0-35.0) g/dl RDW 16.7 H (11.0-16.0) % Plt Count 125 L D (160-400) X10*3/uL MPV 11.1 (9.4-12.3) fL Immature Gran % (Auto) 0.6 H (0.0-0.4) % Neut % (Auto) 84.2 H (45-73) % Lymph % (Auto) 11.2 L (20-40) % [place] % (Auto) 3.1 (2-11) % Eos % (Auto) 0.7 (0-4) % Baso % (Auto) 0.2 (0-2) % Lymph # (Auto) 0.9 L (1.2-4.9) X10*3/uL [place] # (Auto) 0.3 (0.1-1.2) X10*3/uL Eos # (Auto) 0.1 (0.0-0.4) X10*3/uL Baso # (Auto) 0.0 (0.0-0.2) X10*3/uL Abs Immat Gran (auto) 0.05 H (0.00-0.03) X10*3/uL Absolute Neuts (auto) 7.0 (2.0-8.3) x10*3/uL Absolute Nucleated RBC 0.000 (0.0-0.012) X10*3/uL Nucleated RBC % (auto) 0.0 (0.0-0.2) /100WBC Hold Blue Top SEE NOTE VBG pH 7.34 (7.32-7.43) VBG pCO2 32 mmHg VBG pO2 57 mmHg VBG HCO3 17 L (22-26) mmol/L VBG O2 Saturation 87.0 % VBG Base Excess -6.7 mmol/L Sodium (135-145) mmol/L Potassium (3.3-5.1) mmol/L Chloride (96-108) mmol/L Carbon Dioxide (22-29) mmol/L Anion Gap (12-20) BUN (9-16) mg/dL Creatinine (0.5-1.4) mg/dL Estim Creat Clear Calc Estimated GFR Random Glucose (60-115) mg/dL Lactic Acid 1.5 (0.5-2.0) mmol/L Calcium (8.4-10.2) mg/dL Magnesium (1.6-2.6) mg/dL Total Bilirubin (0.0-1.0) mg/dL Direct Bilirubin (0.0-0.5) mg/dL AST (5-31) U/L ALT (0-31) U/L Alkaline Phosphatase (39-117) U/L Troponin I High Sens 9.6 D (<3.5-17.0) ng/L B-Natriuretic Peptide 97 (<100) pg/mL Total Protein (6.5-8.0) g/dL Albumin (3.5-5.0) g/dL Lipase (8-78) U/L Urine Color Urine Appearance Urine pH (5.0-9.0) Ur Specific [place] (1.005-1.025) Urine Protein (Neg-Trace) mg/dL Urine Glucose (UA) (Negative) mg/dL Urine Ketones (Negative) mg/dL Urine Blood (Negative) Urine Nitrite (Negative) Ur Leukocyte Esterase (Negative) Urine RBC (0-2) /HPF Urine WBC (0-5) /HPF Ur Squamous Epith Cells (0-2) /HPF Urine Bacteria (None Seen) Hyaline Casts (0-2) /LPF Ethyl Alcohol mg/dL Influenza Type A (PCR) NEGATIVE (Negative) Influenza Type B (PCR) NEGATIVE (Negative) RSV RNA Qual (PCR) NEGATIVE (Negative) SARS-CoV-2 RNA (RT-PCR) NEGATIVE (Negative) 05/21/24 05/21/24 Range/Units 13:20 15:21 WBC (4.8-10.8) X10*3/uL RBC (4.20-5.50) X10*6/uL Hgb (12.0-16.0) g/dl Hct (37.0-47.0) % MCV (80.0-98.0) fL MCH (27.0-33.0) pg MCHC (31.0-35.0) g/dl RDW (11.0-16.0) % Plt Count (160-400) X10*3/uL MPV (9.4-12.3) fL Immature Gran % (Auto) (0.0-0.4) % Neut % (Auto) (45-73) % Lymph % (Auto) (20-40) % [place] % (Auto) (2-11) % Eos % (Auto) (0-4) % Baso % (Auto) (0-2) % Lymph # (Auto) (1.2-4.9) X10*3/uL [place] # (Auto) (0.1-1.2) X10*3/uL Eos # (Auto) (0.0-0.4) X10*3/uL Baso # (Auto) (0.0-0.2) X10*3/uL Abs Immat Gran (auto) (0.00-0.03) X10*3/uL Absolute Neuts (auto) (2.0-8.3) x10*3/uL Absolute Nucleated RBC (0.0-0.012) X10*3/uL Nucleated RBC % (auto) (0.0-0.2) /100WBC Hold Blue Top VBG pH (7.32-7.43) VBG pCO2 mmHg VBG pO2 mmHg VBG HCO3 (22-26) mmol/L VBG O2 Saturation % VBG Base Excess mmol/L Sodium 134 L (135-145) mmol/L Potassium 5.2 H D (3.3-5.1) mmol/L Chloride 106 (96-108) mmol/L Carbon Dioxide 18 L (22-29) mmol/L Anion Gap 15 (12-20) BUN 28 H (9-16) mg/dL Creatinine 1.36 (0.5-1.4) mg/dL Estim Creat Clear Calc 45.0 Estimated GFR 38 Random Glucose 121 H (60-115) mg/dL Lactic Acid (0.5-2.0) mmol/L Calcium 9.2 D (8.4-10.2) mg/dL Magnesium 2.7 H (1.6-2.6) mg/dL Total Bilirubin 0.5 (0.0-1.0) mg/dL Direct Bilirubin 0.3 (0.0-0.5) mg/dL AST 116 H (5-31) U/L ALT 179 H (0-31) U/L Alkaline Phosphatase 185 H (39-117) U/L Troponin I High Sens (<3.5-17.0) ng/L B-Natriuretic Peptide (<100) pg/mL Total Protein 8.4 H (6.5-8.0) g/dL Albumin 3.7 (3.5-5.0) g/dL Lipase 8 (8-78) U/L Urine Color Yellow Urine Appearance Clear Urine pH 5.5 (5.0-9.0) Ur Specific [place] 1.010 (1.005-1.025) Urine Protein Negative (Neg-Trace) mg/dL Urine Glucose (UA) Negative (Negative) mg/dL Urine Ketones Negative (Negative) mg/dL Urine Blood Negative (Negative) Urine Nitrite Positive H (Negative) Ur Leukocyte Esterase Moderate (2+) H (Negative) Urine RBC 0-2 (0-2) /HPF Urine WBC 21-50 H (0-5) /HPF Ur Squamous Epith Cells 3-5 (0-2) /HPF Urine Bacteria 1+ (None Seen) Hyaline Casts 3-5 (0-2) /LPF Ethyl Alcohol 11 mg/dL Influenza Type A (PCR) (Negative) Influenza Type B (PCR) (Negative) RSV RNA Qual (PCR) (Negative) SARS-CoV-2 RNA (RT-PCR) (Negative) Independent Interpretation I performed an independent interpretation of an: Plain X-Ray (Chest:Pulmonary edema and bilateral pleural effusions, small to moderate volume. Cardiomegaly versus pericardial effusion. ) Radiology Impression Discussion of test interpretation with radiology: I have reviewed the radiologist's reading. Discharge Plan Discharge Clinical Impression: Acute exacerbation of chronic obstructive pulmonary disease, Acute exacerbation of CHF (congestive heart failure) Clinical Impression: (Ruled Out): Osteomyelitis Patient Disposition: Admitted As Inpatient Prescriptions: No Action omeprazole 40 mg capsule,delayed release(DR/EC) 40 mg PO DAILY@0630 methotrexate sodium 2.5 mg tablet 10 tab PO MO prednisone 1 mg tablet 4 mg PO DAILY levothyroxine 50 mcg tablet 50 mcg PO DAILY@0630 ergocalciferol (vitamin D2) 1,250 mcg (50,000 unit) capsule 1,250 mcg PO MO Rx Instructions: Giv 1 capsule by mouth every Monday bupropion HCl 300 mg tablet extended release 24 hr 300 mg PO DAILY duloxetine 60 mg capsule,delayed release(DR/EC) 60 mg PO DAILY ondansetron 4 mg tablet,disintegrating 4 mg PO Q8H PRN (Reason: nausea and vomiting) Qty: 10 0RF folic acid 1 mg tablet 1 mg PO DAILY atenolol 25 mg Tablet 25 mg PO DAILY Qty: 30 0RF Protocol: Hold for SBP/HR < HOLD for SBP < : 90 HOLD for HR < : 60 doxazosin 2 mg Tablet 2 mg PO BEDTIME Qty: 30 0RF Protocol: Hold for SBP< HOLD for SBP < : 90 furosemide 20 mg tablet 20 mg PO DAILY Qty: 30 0RF bupropion HCl 150 mg tablet extended release 24 hr 150 mg PO DAILY multivitamin Tablet 1 tab PO DAILY ibuprofen 200 mg Tablet 600 mg PO Q6H PRN (Reason: Pain) vitamin B complex [B Complex] Capsule 1 cap PO DAILY melatonin 10 mg Tablet 10 mg PO BEDTIME biotin 5,000 mcg Tablet, Sublingual 5,000 mcg SUBLINGUAL DAILY pregabalin 200 mg capsule 200 mg PO BID oxycodone 20 mg tablet 20 mg PO Q4H PRN (Reason: pain (scale score 7-10)) Qty: 20 0RF acetaminophen [Tylenol] 325 mg Tablet 650 mg PO Q4H PRN (Reason: Moderate Pain (Scale Score 5-6)) bisacodyl [Biscolax] 10 mg Suppository 10 mg MN DAILY PRN (Reason: Constipation) Combivent Respimat 20-100 mcg/actuation Mist 1 puff INHALATION Q6H PRN (Reason: Shortness Of Breath Or Wheezing) lidocaine HCl 4 % Adhesive Patch,Medicated 1 patch TOPICAL BID PRN (Reason: Pain) Rx Instructions: SHOULDER OR KKNEE prednisone 5 mg tablet 5 mg PO DAILY PRN (Reason: arthritis pain) Print Language: Turkmen
[2024-05-21] MEDS: Magnesium Sulfate/H2O 2 GM/50 ML PIGGYBACK IV (11:34)
[2024-05-21] MEDS: methylPREDNISolone Sod Succ 125 MG/2 ML VIAL IVPUSH (11:34)
[2024-05-21] MEDS: cefTRIAXone sodium 1 GM VIAL IVPUSH (11:39)
--- NOTE | 2024-05-21 11:40 | PC.NURSE ---
biba from home - originally called EMS d/t increased weakness and bilateral joint pain in hands d/t arthritis. upon EMS arrival - pt noted to be sob w/ audible wheezing. 96% on RA. duoneb w/ good effect. pt reports purposely skipping dose of lasix this am d/t not wanting increased urine output. hx copd. upon ED arrival - pt alert and oriented but seemingly lethargic as she is unable to hold a conversation w/o falling asleep. pt easily arousable to verbal stimuli. 20gIV in the left AC via EMS. additional 18gIV placed in the right forearm - labs obtained/sent to lab. pt noted to desat to 88% on RA. pt placed on 2L via NC. audible wheezing present. MD bedside. ED bronch protocol placed. plan of care ongoing. call phillips placed within reach.
[2024-05-21 11:41] LABS: MANUAL DIFF FLAG NO
[2024-05-21 11:43] LABS: Venous Blood Gas Refer to POC result
[2024-05-21 11:43] LABS: VBG Base Excess -6.7 mmol/L; VBG HCO3 17 mmol/L (22-26); VBG pCO2 32 mmHg; VBG pH 7.34 (7.32-7.43); VBG pO2 57 mmHg
[2024-05-21] MEDS: Albuterol Sulfate 2.5 MG, Albuterol/Iprat 2.5/0.5MG 3 ML 3 ML INHALE (11:49)
[2024-05-21 11:51] LABS: Basophils Percent Auto 0.2 % (0-2); Eosinophils Absolute Auto 0.1 X10*3/uL (0.0-0.4); Eosinophils Percent Auto 0.7 % (0-4); Hematocrit 39.6 % (37.0-47.0); Hemoglobin 12.9 g/dl (12.0-16.0); Imm Gran Abs Auto 0.05 X10*3/uL (0.00-0.03); Imm Gran Pct Auto 0.6 % (0.0-0.4); Lymphocytes Absolute Auto 0.9 X10*3/uL (1.2-4.9); Lymphocytes Percent Auto 11.2 % (20-40); Mean Corpuscular HGB Conc 32.6 g/dl (31.0-35.0); Mean Corpuscular Hemoglobin 30.6 pg (27.0-33.0); Mean Corpuscular Volume 93.8 fL (80.0-98.0); Mean Platelet Volume 11.1 fL (9.4-12.3); Monocytes Absolute Auto 0.3 X10*3/uL (0.1-1.2); Monocytes Percent Auto 3.1 % (2-11); Neutrophils Percent Auto 84.2 % (45-73); Platelet Count 125 X10*3/uL (160-400); Red Blood Count 4.22 X10*6/uL (4.20-5.50); Red Cell Distribution Width 16.7 % (11.0-16.0); White Blood Count 8.4 X10*3/uL (4.8-10.8)
--- NOTE | 2024-05-21 11:55 | PC.NURSE ---
pt receiving breathing tx via RT.
[2024-05-21 12:05] LABS: Lactic Acid 1.5 mmol/L (0.5-2.0)
[2024-05-21 12:14] LABS: Troponin-I High Sensitivity 9.6 ng/L (<3.5-17.0)
[2024-05-21 12:21] LABS: B Type Natriuretic Peptide 97 pg/mL (<100)
[2024-05-21 12:25] LABS: Influenza A PCR NEGATIVE (Negative); Influenza B PCR NEGATIVE (Negative); Resp Syncy Virus RNA Qual PCR NEGATIVE (Negative); SARS COV2 PCR INHOUSE NEGATIVE (Negative)
[2024-05-21] MEDS: Furosemide 40 MG/4 ML VIAL IVPUSH (13:09)
--- NOTE | 2024-05-21 13:10 | PC.NURSE ---
pt aware urine specimen is still needed. medication administered per provider order.
--- NOTE | 2024-05-21 13:30 | PC.NURSE ---
ultrasound being completed at this time.
[2024-05-21 14:13] LABS: Alanine Aminotransferase 179 U/L (0-31); Albumin Level 3.7 g/dL (3.5-5.0); Alkaline Phosphatase 185 U/L (39-117); Anion Gap 15 (12-20); Aspartate Amino Transferase 116 U/L (5-31); Bilirubin Direct 0.3 mg/dL (0.0-0.5); Bilirubin Total 0.5 mg/dL (0.0-1.0); Blood Urea Nitrogen 28 mg/dL (9-16); Calcium 9.2 mg/dL (8.4-10.2); Carbon Dioxide 18 mmol/L (22-29); Chloride 106 mmol/L (96-108); Estimated Glomerular Filt Rate 38; Ethanol 11 mg/dL; Glucose Random 121 mg/dL (60-115); Lipase 8 U/L (8-78); Magnesium 2.7 mg/dL (1.6-2.6); Potassium 5.2 mmol/L (3.3-5.1); Sodium 134 mmol/L (135-145); Total Protein 8.4 g/dL (6.5-8.0)
--- OUTSIDE RECORDS SUMMARY | 2024-05-21 14:23 | XMS_ITS | Clinical Summary ---
Author Organization [address] Address [address] [place] [address] Phone Care Team Providers Care Procurement Assistant Name Role Phone Travis Holbrook MD Primary Care Provider [phone] Allergies Active Allergy Reactions Criticality Noted Date Comments Adhesive Tape-Silicones Low 02/06/2017 Tape Other Reaction(s): Rash/Dermatitis Chlorthalidone Medium 08/08/2017 Hypokalemia Hydrochlorothiazide High 02/07/2017 Hyponatremia Lisinopril Anaphylaxis,Swell ing High 02/06/2017 anaphylaxis, 2017 [facility] Uuxovei-Owd-Lly Reductase Inhibitors 02/06/2017 Statins [Hmg-coa-r Inhibitors] Leg [...] Department Care Team Description 03/22/2024 Lab Requisition [facility] [address] [place] [phone] Lavonne Irvin MD Essential (primary) hypertension; Acute kidney failure, unspecified (CMS/HCC) 03/16/2024 Lab Requisition [facility] [address] [place] [phone] Lavonne Irvin MD Essential (primary) hypertension; Acute kidney failure, unspecified (CMS/HCC) 03/08/2024 Lab Requisition [facility] [address] [place] [phone] Lavonne Irvin MD Essential (primary) hypertension; Acute kidney failure, unspecified (CMS/HCC) 03/07/2024 Lab Requisition [facility] [address] [place] [phone] Lavonne Irvin MD Essential (primary) hypertension; Acute kidney failure, unspecified (CMS/HCC) 03/05/2024 Lab Requisition [facility] [address] [place] [phone] Travis Holbrook MD Other chcf (current) drug therapy 02/28/2024 Lab Requisition [facility] [address] [place] [phone] Travis Holbrook MD Other emt intermediate (current) drug therapy from Last 3 Months Surgical History Surgery Date Site/Laterality Comments OTHER SURGICAL HISTORY N/A PROCEDURE: [place] HYSTEROSCOPY ENDOMETRIAL ABLATION TUBAL LIGATION PROCEDURE: HISTORICAL TUBAL LIGATION Social History Tobacco Use Types Packs/Day Years Used Date Smoking Tobacco: Never Smokeless Tobacco: Never Alcohol Use Standard Drinks/Week Comments Never 0 (1 standard drink = 0.6 oz pur e alcohol) Comments Unknown Sex and Gender Information Value Date Recorded Sex Assigned at Not on file Legal Sex Female 1:20 PM EST Gender Identity Not on file Sexual Orientation Not on file Obstetrics History Last Filed [...] 03/16/2023 2:07 PM EST Plan of Treatment Health Maintenance Due Date Last Done Comments Breast Cancer Screening 1950 COVID-19 Vaccine (#1) 02/12/1957 DTaP,Tdap,and Td Vaccines (1 - Tdap) 02/12/1971 Pneumococcal Vaccine: 50+ Years (1 of 2 - PCV) 02/12/1971 Zoster Vaccines (1 of 2) 02/12/1971 [...] patient's age to complete this topic Meningococcal B Vacine Aged Out No lo nger eligible based on patient's age to complete [...] PANEL Routine 02/28/2024 6:48 AM EST Other emt intermediate (current) drug therapy COMPLETE BLOOD COUNT Routine 02/28/2024 6:48 AM EST Other emt intermediate (current) drug therapy LIPID PANEL Routine 07/06/2022 from Last 3 Months or Most Recently Relevant to Health Maintenance Results * (ABNORMAL) Complete blood count (03/18/2024 7:09 AM EST) Only the most recent of4 resultswithin the time period is included. [facility] Signature WBC 6.3 4.8 - 10.8 K/mcL LAB HEMETOLOGY METHOD 03/18/2024 11:57 AM EST [facility] RBC 3.90 3.80 - 4.80 M/mcL LAB HEMETOLOGY METHOD 03/18/2024 11:57 AM [facility] LAB Hemoglobin 11.6 11.5 - 16.0 g/dL LAB HEMETOLOGY METHOD 03/18/2024 11:57 AM [facility] LAB Hematocrit 37.4 35.0 - 47.0 % LAB HEMETOLOGY METHOD 03/18/2024 11:57 AM [facility] LAB MCV 97.1 79.0 - 98.0 FL LAB HEMETOLOGY METHOD 03/18/2024 11:57 AM [facility] LAB MCH 30.1 27.0 - 32.0 pcg LAB HEMETOLOGY METHOD 03/18/2024 11:57 AM [facility] LAB MCHC 31.0(L) 32.0 - 37.0 g/dL LAB HEMETOLOGY METHOD 03/18/2024 11:57 AM [facility] LAB RDW 15.9(H) 11.0 - 15.0 % LAB HEMETOLOGY METHOD 03/18/2024 11:57 AM [facility] LAB Platelets 148 130 - 400 K/mcL LAB HEMETOLOGY METHOD 03/18/2024 11:57 AM [facility] LAB MPV 11.0 7.0 - 11.0 FL LAB HEMETOLOGY METHOD 03/18/2024 11:57 AM [facility] LAB NRBC 0.0 <1.0 % LAB HEMETOLOGY METHOD 03/18/2024 11:57 AM [facility] LAB NRBC Absolute 0.00 <0.10 K/mcL LAB HEMETOLOGY METHOD 03/18/2024 11:57 AM [facility] LAB Blood Venous blood specimen / Unknown Venipuncture / Unknown 03/18/2024 7:09 AM EST 03/18/2024 11:39 AM EST us Lavonne Irvin MD LAB BLOOD ORDERABLES Final Resul t [facility] LAB [address] [place] [address], * (ABNORMAL) Basic metabolic panel (03/18/2024 7:09 AM EST) Only the most recent of4 resultswithin the time period is included. Sodium 137 133 - 145 mmol/L LAB CHEMISTRY METHOD 03/18/2024 1:26 PM [facility] LAB Potassium 4.1 3.5 - 5.5 mmol/L LAB CHEMISTRY METHOD 03/18/2024 1:26 PM [facility] LAB Chloride 104 96 - 110 mmol/L LAB CHEMISTRY METHOD 03/18/2024 1:26 PM [facility] LAB CO2 31 21 - 32 mmol/L LAB CHEMISTRY METHOD 03/18/2024 1:26 PM [facility] LAB Anion Gap 2(L) 3 - 11 LAB CHEMISTRY METHOD 03/18/2024 1:26 PM [facility] LAB Glucose 75 70 - 100 mg/dL LAB CHEMISTRY METHOD 03/18/2024 1:26 PM [facility] LAB BUN 23 5 - 25 mg/dL LAB CHEMISTRY METHOD 03/18/2024 1:26 PM [facility] LAB Creatinine 1.30(H) 0.50 - 1.10 mg/dL LAB CHEMISTRY METHOD 03/18/2024 1:26 PM [facility] LAB eGFR 44(L) >=60 mL/min/1. 73m2 LAB CHEMISTRY METHOD 03/18/2024 1:26 PM [facility] LAB Comment:Calculation based on the??Chronic Kidney Disease Epidemiology Collaboration (CKD-EPI) equation refit??without adjustment for race. BUN/Creatinine Ratio 17.7 LAB CHEMISTRY METHOD 03/18/2024 1:26 PM [facility] LAB Calcium 8.9 8.5 - 10.5 mg/dL LAB CHEMISTRY METHOD 03/18/2024 1:26 PM EST [facility] LAB Blood Venous blood specimen / Unknown Venipuncture / Unknown 03/18/2024 7:09 AM EST 03/18/2024 11:39 AM EST Lavonne Irvin MD LAB BLOOD ORDERABLES Final Resul t [facility] LAB [address] [place] [address], [place] [phone] * Lipid panel (07/06/2022) LDL/HDL Ratio 0 Comment:no interpretation, a bstracted Triglycerides 0 mg/dL Comment:no interpretation, a bstracted Cholesterol 0 mg/dL Comment:no interpretation, a bstracted HDL 0 mg/dL Comment:no interpretation, a bstracted LDL Cholesterol 0 mg/dL Comment:no interpretation, a bstracted Blood Venous blood specimen / Unknown Historical Provider LAB BLOOD ORDERABLES Fadumo l Result from Last 3 Months or Most Recently Relevant to Health Maintenance Insurance MEDICARE MEDICAID - [place] [employer] MEDICARE Care Teams Procurement Assistant Relationship Specialty Start Date End Date Travis Holbrook MD [address] [place] [address] [address] [place], [address] PCP - General Family Medicine 02/28/24
--- OUTSIDE RECORDS SUMMARY | 2024-05-21 14:23 | XMS_ITS | Encounter Summary ---
Author Organization [facility] Address [address] [place] [address] Care Team Providers Care Char Filter Tank Tender Head Name Role Phone Travis Holbrook MD Primary Care Provider [phone] Encounter Details Date Type Department Care Team (Late st Contact Info) Description 03/07/2024 Lab Requisition [facility] Lab [address] [facility] [place] [address] Lavonne Irvin MD [address] [place], [place] [phone] Essential (primary) hypertension; Acute kidney failure, unspecified [...] on file Sexual Orientation Not on file documented as of this encounter Plan of Treatment Not on file documented as of this encounter Procedures Procedure [...] 6:00 AM EST 03/07/2024 10:35 AM EST us Lavonne Irvin MD LAB BLOOD ORDERABLES Final Resul t [facility] LAB [address] [place] [address], * (ABNORMAL) Complete blood count (03/07/2024 6:00 AM EST) [facility] Signature WBC 4.8 4.8 - 10.8 K/mcL LAB HEMETOLOGY METHOD 03/07/2024 10:54 AM EST [facility] LAB RBC 3.70(L) 3.80 - 4.80 [...] [facility] LAB MPV 10.3 7.0 - 11.0 FL LAB HEMETOLOGY METHOD 03/07/2024 10:54 AM [facility] LAB NRBC 0.0 <1.0 % LAB HEMETOLOGY METHOD 03/07/2024 10:54 AM EST [facility] LAB NRBC Absolute 0.00 <0.10 K/mcL LAB HEMETOLOGY METHOD 03/07/2024 10:54 AM EST [facility] LAB Blood Venous blood specimen / Unknown Venipuncture / Unknown 03/07/2024 6:00 AM EST 03/07/2024 10:35 AM EST us Lavonne Irvin MD LAB BLOOD ORDERABLES Final Resul t [facility] [address] [place] [address], documented in this encounter Visit Diagnoses Diagnosis Essential (primary) hypertension Unspecified essential hypertension Acute kidney failure, unspecified (CMS/HCC) Acute kidney failure, unspecified documented in this encounter Care Teams Char Filter Tank Tender Head Relationship Specialty Start Date End Date Travis Holbrook MD [address] [place] [address], [address] PCP - General Family Medicine 02/28/24 documented as of this encounter
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
--- OUTSIDE RECORDS SUMMARY | 2024-05-21 14:23 | XMS_ITS | Data Portability ---
Author Organization [facility], Main Office Address [address] [place] [address] Care Team Providers Care Financial Assistance Advisor Name Role Phone GINO MICHAEL OTHER [facility] ([facility]) OTHER Assessment No assessment recorded. Plan [...] Address Organization Details Recorded Time Metabolic encephalopathy 93735393 Active 2023 Flor Michel NP [address], [address], [place], [address], [facility] [employer] [facility] 4 09:06:02 Bacteriuria 26927439 Active 2023 Flor Michel NP [address], [address], [place], [address], [facility] [employer] [facility] 4 09:06:42 Chronic pain 56696523 Active 2023 Flor Michel NP [address], [address], [place], [address], [facility] [employer] 4 09:06:51 Rheumatoid arthritis 70862878 Active 2023 Flor Michel NP [address], [address], [place], [address], [facility] [employer] 4 09:06:59 Essential hypertension 62604392 Active 2023 Flor Michel NP [address], [address], [place], [address], [employer] 4 09:07:06 Chronic obstructive pulmonary disease 73659861 Active 2023 Flor Michel NP [address], [place], [address], [employer] 4 09:07:11 Fracture of femur 36510296 Active 2023 Flor Michel NP [address], [place], [address], [employer] 4 09:08:02 Gastroesophage al reflux disease 270898028 Active 2023 Flor Michel NP [address], [address], [place], [address], [employer] 4 09:08:19 Depressive disorder 89032756 Active 2023 Flor Michel NP [address], [address], [place], [address], [employer] 4 09:08:43 Hypothyroidism 81650024 Active 2023 Flor Michel NP [address], [address], [place], [address], [employer] 4 09:17:20 Congestive heart failure 75323754 Active 2023 Flor Michel NP [address], [address], [place], [address], [employer] 4 09:28:03 Problem Notes None recorded. Medical Equipment None Reported. Allergies Allergen ID Allergen Name Allergen Category Reaction Reaction Severity Criticality Documentation Date Start Date Code Code System Note Provider Name and Address Organization Details Recorded Time 05514 lisinopri l medicatio n anaphylax is Not available unabletoasse ss 02/28/2024 78900 RxNorm Not Available Not Available Not Available 98112 Substance with sulfonami de structure and antibacte rial mechanism of action (substanc e) medicatio n rash Not available low 02/28/2024 24795 8003 SNOMED Not Available Not Available Not Available 73015 tramadol medicatio n rash Not [facility] 02/28/2024 79708 RxNorm Not Available Not Available Not Available 56900 Product containin g 3-hydroxy -3-methyl glutaryl- coenzyme A reductase inhibitor (product) medicatio n rash Not available unabletoasse 02/28/2024 49346 009 SNOMED Not Available Not Available Not Available 07346 hydrochlo rothiazid e medicatio n other Not available [facility] 02/28/2024 5487 RxNorm ? adver se react ion with abnor mal labs Not Available Not Available Not Available Vitals Date Recorded Body weight Heart rate Respiratory rate Body temperature Oxygen saturation Oxygen saturation in Arterial blood by Pulse oximetry Systolic blood pressure Diastolic blood pressure Provider Name and Address Organization Details Last Updated DateTime 4 66599.4 7 g 87 /min 18 /min 97.5 [degF] 97 % 97 % 132 mm[Hg] 68 mm[Hg] Flor Michel NP [address], [facility] [address], [place], [address], [employer] 08:26:33 Social History Question Answer Notes LastModified by Organizat ion Details LastModified Time Tobacco Smoking Status Former Smoker Flor Michel NP [address], [facility] [address], [place], [address], [employer] 02/28/2024 09:04:02 Do You Have An Advance [...] conjugate PCV 13 0 completed [facility] 03/01/2024 12:57:19 pneumococcal polysaccharide PPV23 8 completed [facility] 03/01/2024 12:57:36 influenza, unspecified formulation 2 completed [facility] 03/01/2024 12:57:51 influenza, unspecified formulation [facility] 12:58:01 influenza, unspecified formulation 4 completed [facility] 03/01/2024 12:58:11 SARS-COV-2 (COVID-19) vaccine, UNSPECIFIED 1 completed [facility] 03/01/2024 12:58:28 SARS-COV-2 (COVID-19) vaccine, UNSPECIFIED 1 completed [facility] 03/01/2024 12:58:37 SARS-COV-2 (COVID-19) vaccine, UNSPECIFIED 2 completed [facility] 03/01/2024 12:58:44 zoster, unspecified formulation 8 completed [facility] 03/01/2024 12:59:01 Past Encounters Encounter ID Performer Location Encounter Start Date Encounter Closed Date Diagnosis/Indication Diagnosis SNOMED-CT Code Diagnosis ICD10 Code Diagnosis Note [id number] Flor Michel NP [address] [place] [address] 02/28/2024 08:21:30 02/29/2024 11:51:58 Metabolic encephalopathy 22525635 G93.41 felt resolved from abx from UTI or large amount of narcotics while in hosp resolved at d/cchanged from dilaudid to oxycodonem onitor for changes in ms Chronic pain 97398480 G8 9.29 with hx of fibromyalg ia [...] mg po qd ? pain or mood ngjhdlyg57 /4 lidocaine patch to left knee am, left shoulder q pm. Bacteriuria 58082923 R82 .71 with ESBL felt to be colonized, seen by ID and no further treatmentg iven ceftriaxon e and ertampenum in hospmonito rcbc, bmp,s/s of fever etc.isolat ion per facility protocol Rheumatoid arthritis 698 95222 M06.9 see chronic pain abovefolic acid 1mg qdmonitor for flare Essential hypertension 87622957 I10 atenolol 25 mg qddoxazosi n 2mg qhs? for htnfurosem dreeje 20 mg po qdmonitor bp, cardiac status Chronic ob structive pulmonary disease 14219533 J44.9 albuterol 2 puff po q 6 hours prn sob2 liters o2 at nocmonitor Depressive disorder 3548 9007 F32.A buproprion 450 mg qdduloxeti ne 60 mg qdpsych prn Gastroesop hageal reflux disease 522123020 K21.9 omeprazole 40 mg qdzofran 4 mg po q 8 prn n/vmonitor Hypothyroidism 54357842 E03.9 levothyrox ine 50 mcg qdtsh, free t4 prnmonitor Fracture of tibia 551932 02 S82.202D xray showing acute fracture of [...] surgery recommende d.FU outpt with surgeon in [place] recommende d.see chronic pain for management ergocalcif dajuan 1250 mcg po mondaysmon itor for changes, increased pain, or need for referral earlier Congestive heart failure 84065846 I50.9 lasix 20 mg po qdmonitor vitals, cardiac status Asthenia 44983295 R53.1 PT OT eval and treatwheel chair at baseline with self transfers, NWB to left tibiamonit or Recurrent falls 68296867 2 R29.6 PT OT eval and treatwheel [...] Hassan Member ID Guarantor Name 02/28/2024 1 [facility] (MEDICARE REPLACEMENT/A DVANTAGE - PPO) [id number] Alexandrea Renee [id number] Alexandrea Renee Notes Date Note Type Note [...] surgery recommended. FU outpt with surgeon in [place] recommended.Her pain was managed with dilaudid. She [...] okay, dialysis undecided Flor Michel NP [address], [address], [place], [address], [facility] - [employer] 02/28/2024 09:52:32 OBGyn Episode No OBEpisode recorded.
--- OUTSIDE RECORDS SUMMARY | 2024-05-21 14:23 | XMS_ITS | Encounter Summary ---
Author Organization [facility] Address [address] [place] [address] Care Team Providers Care Bread Baker Name Role Phone Travis Holbrook MD Primary Care Provider [phone] Encounter Details Date Type Department Care Team (Late st Contact Info) Description 03/22/2024 Lab Requisition [facility] - Main Lab [address] [facility] [place] [address] Lavonne Irvin MD [address] [place] [address] Essential (primary) hypertension; Acute kidney failure, unspecified [...] on file documented as of this encounter Visit Diagnoses Diagnosis Essential (primary) hypertension Unspecified essential hypertension Acute kidney failure, unspecified (CMS/HCC) Acute kidney failure, unspecified documented in this encounter Care Teams Bread Baker Relationship Specialty Start Date End Date Travis Holbrook MD [address] [place] [address] [address] [facility] [address] PCP - General Family Medicine 02/28/24 documented as of this encounter
--- OUTSIDE RECORDS SUMMARY | 2024-05-21 14:23 | XMS_ITS | Encounter Summary ---
Author Organization [facility] Address [address] [place] [address] Care Team Providers Care Blow Mold Machine Operator Name Role Phone Travis Holbrook MD Primary Care Provider [phone] Encounter Details Date Type Department Care Team (Late st Contact Info) Description 03/05/2024 Lab Requisition [facility] - Main Lab [address] [facility] [place] [address] Travis Holbrook MD [address] [place] [phone] Other keno terminal operator (current) drug therapy Social History Tobacco Use [...] of this encounter Visit Diagnoses Diagnosis Other keno terminal operator (current) drug therapy documented in this encounter Care Teams Blow Mold Machine Operator Relationship Specialty Start Date End Date Travis Holbrook MD 38 [facility] 204 [facility] [phone] PCP - General Family Medicine 02/28/24 documented as of this encounter
--- OUTSIDE RECORDS SUMMARY | 2024-05-21 14:23 | XMS_ITS | Encounter Summary ---
Author Organization [facility] Address [address] [place] [address] Care Team Providers Care Transfer Station Operator Name Role Phone Travis Holbrook MD Primary Care Provider [phone] Encounter Details Date Type Department Care Team (Late st Contact Info) Description 02/28/2024 Lab Requisition [facility] - Main Lab 299 [facility] [employer] [place] [address] Travis Holbrook MD [address] [place] [address] [address] [facility] [phone] Other manager long term care (current) drug therapy Social History Tobacco Use [...] COUNT Routine 02/28/2024 6:48 AM EST Other manager long term care (current) drug therapy BASIC METABOLIC PANEL Routine 02/28/2024 6:48 AM EST Other manager long term care (current) drug therapy documented in this encounter Results * (ABNORMAL) Basic metabolic panel (02/28/2024 6:48 AM EST) Sodium 137 133 - 145 mmol/L LAB CHEMISTRY METHOD 02/28/2024 12:05 PM [facility] Potassium 4.2 3.5 - 5.5 mmol/L LAB CHEMISTRY METHOD 02/28/2024 12:05 PM [facility] Chloride 103 96 - 110 mmol/L LAB CHEMISTRY METHOD 02/28/2024 12:05 PM [facility] CO2 31 21 - 32 mmol/L LAB CHEMISTRY METHOD 02/28/2024 12:05 PM [facility] Anion Gap 3 3 - 11 LAB CHEMISTRY METHOD 02/28/2024 12:05 PM [facility] Glucose 81 70 - 100 mg/dL LAB CHEMISTRY METHOD 02/28/2024 12:05 PM [facility] BUN 26(H) 5 - 25 mg/dL LAB CHEMISTRY METHOD 02/28/2024 12:05 PM [facility] Creatinine 1.00 0.50 - 1.10 mg/dL LAB CHEMISTRY METHOD 02/28/2024 12:05 PM [facility] eGFR 60 >=60 mL/min/1. 73m2 LAB CHEMISTRY METHOD 02/28/2024 12:05 PM [facility] Comment:Calculation based on the??Chronic Kidney Disease Epidemiology Collaboration (CKD-EPI) equation refit??without adjustment for race. BUN/Creatinine Ratio 26.0 LAB CHEMISTRY METHOD 02/28/2024 12:05 PM [facility] Calcium 9.0 8.5 - 10.5 mg/dL LAB CHEMISTRY METHOD 02/28/2024 12:05 PM [facility] Blood Venous blood specimen / Unknown Venipuncture / Unknown 02/28/2024 6:48 AM EST 02/28/2024 10:45 AM EST us Travis Holbrook MD LAB BLOOD ORDERABLES Final Resul t [facility] [address] [place] [address], [place] [phone] * (ABNORMAL) Complete blood count (02/28/2024 6:48 AM EST) [facility] WBC 6.1 4.8 - 10.8 K/mcL LAB HEMETOLOGY METHOD 02/28/2024 11:33 AM [facility] RBC 3.80 3.80 - 4.80 M/mcL LAB HEMETOLOGY METHOD 02/28/2024 11:33 AM [facility] Hemoglobin 11.4(L) 11.5 - 16.0 g/dL LAB HEMETOLOGY METHOD 02/28/2024 11:33 AM [facility] Hematocrit 36.3 35.0 - 47.0 % LAB HEMETOLOGY METHOD 02/28/2024 11:33 AM [facility] MCV 95.3 79.0 - 98.0 FL LAB HEMETOLOGY METHOD 02/28/2024 11:33 AM [facility] MCH 29.9 27.0 - 32.0 pcg LAB HEMETOLOGY METHOD 02/28/2024 11:33 AM [facility] MCHC 31.4(L) 32.0 - 37.0 g/dL LAB HEMETOLOGY METHOD 02/28/2024 11:33 AM [facility] RDW 15.0 11.0 - 15.0 % LAB HEMETOLOGY METHOD 02/28/2024 11:33 AM [facility] Platelets 180 130 - 400 K/mcL LAB HEMETOLOGY METHOD 02/28/2024 11:33 AM [facility] MPV 10.5 7.0 - 11.0 FL LAB HEMETOLOGY METHOD 02/28/2024 11:33 AM [facility] NRBC 0.0 <1.0 % LAB HEMETOLOGY METHOD 02/28/2024 11:33 AM [facility] NRBC Absolute 0.00 <0.10 K/mcL LAB HEMETOLOGY METHOD 02/28/2024 11:33 AM EST [facility] Blood Venous blood specimen / Unknown Venipuncture / Unknown 02/28/2024 6:48 AM EST 02/28/2024 10:45 AM EST us Travis Holbrook MD LAB BLOOD ORDERABLES Final Resul t [facility] [address] [place] [address], documented in this encounter Visit Diagnoses Diagnosis Other long-term (current) drug therapy documented in this encounter Care Teams Transfer Station Operator Relationship Specialty Start Date End Date Travis Holbrook MD [address] [place] [address], [phone] PCP - General Family Medicine 02/28/24 documented as of this encounter
--- OUTSIDE RECORDS SUMMARY | 2024-05-21 14:23 | XMS_ITS | Encounter Summary ---
Author Organization [facility] Address [address] [place] [address] Care Team Providers Care Rail Engineer Name Role Phone Travis Holbrook MD Primary Care Provider [phone] Encounter Details Date Type Department Care Team (Late st Contact Info) Description 03/16/2024 Lab Requisition [facility] - Main Lab 299 [facility] [place] [address] Lavonne Irvin MD [address] [place], [place] [phone] Essential (primary) hypertension; Acute kidney failure, unspecified [...] mmol/L LAB CHEMISTRY METHOD 03/18/2024 1:26 PM [facility] Potassium 4.1 3.5 - 5.5 mmol/L LAB CHEMISTRY METHOD 03/18/2024 1:26 PM [facility] Chloride 104 96 - 110 mmol/L LAB CHEMISTRY METHOD 03/18/2024 1:26 PM [facility] CO2 31 21 - 32 mmol/L LAB CHEMISTRY METHOD 03/18/2024 1:26 PM [facility] Anion Gap 2(L) 3 - 11 LAB CHEMISTRY METHOD 03/18/2024 1:26 PM [facility] Glucose 75 70 - 100 mg/dL LAB CHEMISTRY METHOD 03/18/2024 1:26 PM [facility] BUN 23 5 - 25 mg/dL LAB CHEMISTRY METHOD 03/18/2024 1:26 PM [facility] Creatinine 1.30(H) 0.50 - 1.10 mg/dL LAB CHEMISTRY METHOD 03/18/2024 1:26 PM [facility] eGFR 44(L) >=60 mL/min/1. 73m2 LAB CHEMISTRY METHOD 03/18/2024 1:26 PM [facility] Comment:Calculation based on the??Chronic Kidney Disease Epidemiology Collaboration (CKD-EPI) equation refit??without adjustment for race. BUN/Creatinine Ratio 17.7 LAB CHEMISTRY METHOD 03/18/2024 1:26 PM [facility] Calcium 8.9 8.5 - 10.5 mg/dL LAB CHEMISTRY METHOD 03/18/2024 1:26 PM [facility] Blood Venous blood specimen / Unknown Venipuncture / Unknown 03/18/2024 7:09 AM EST 03/18/2024 11:39 AM EST us Lavonne Irvin MD LAB BLOOD ORDERABLES Final Resul t [facility] [address] [place] [address], * (ABNORMAL) Complete blood count (03/18/2024 7:09 AM EST) [facility] Signature WBC 6.3 4.8 - 10.8 K/mcL LAB HEMETOLOGY METHOD 03/18/2024 11:57 AM EST [facility] RBC 3.90 3.80 - 4.80 M/mcL LAB HEMETOLOGY METHOD 03/18/2024 11:57 AM [facility] Hemoglobin 11.6 11.5 - 16.0 g/dL LAB HEMETOLOGY METHOD 03/18/2024 11:57 AM [facility] Hematocrit 37.4 35.0 - 47.0 % LAB HEMETOLOGY METHOD 03/18/2024 11:57 AM [facility] MCV 97.1 79.0 - 98.0 FL LAB HEMETOLOGY METHOD 03/18/2024 11:57 AM EST [facility] MCH 30.1 27.0 - 32.0 pcg LAB HEMETOLOGY METHOD 03/18/2024 11:57 AM [facility] MCHC 31.0(L) 32.0 - 37.0 g/dL LAB HEMETOLOGY METHOD 03/18/2024 11:57 AM [facility] RDW 15.9(H) 11.0 - 15.0 % LAB HEMETOLOGY METHOD 03/18/2024 11:57 AM [facility] Platelets 148 130 - 400 K/mcL LAB HEMETOLOGY METHOD 03/18/2024 11:57 AM [facility] MPV 11.0 7.0 - 11.0 FL LAB HEMETOLOGY METHOD 03/18/2024 11:57 AM [facility] NRBC 0.0 <1.0 % LAB HEMETOLOGY METHOD 03/18/2024 11:57 AM EST [facility] NRBC Absolute 0.00 <0.10 K/mcL LAB HEMETOLOGY METHOD 03/18/2024 11:57 AM EST [facility] Blood Venous blood specimen / Unknown Venipuncture / Unknown 03/18/2024 7:09 AM EST 03/18/2024 11:39 AM EST us Lavonne Irvin MD LAB BLOOD ORDERABLES Final Resul t [facility] [address] [place] [address], documented in this encounter Visit Diagnoses Diagnosis Essential (primary) hypertension Unspecified essential hypertension Acute kidney failure, unspecified (CMS/HCC) Acute kidney failure, unspecified documented in this encounter Care Teams Rail Engineer Relationship Specialty Start Date End Date Travis Holbrook MD [address] [place] [address], [phone] PCP - General Family Medicine 02/28/24 documented as of this encounter
--- OUTSIDE RECORDS SUMMARY | 2024-05-21 14:24 | XMS_ITS | Encounter Summary ---
Author Organization [facility] Address [address] [place] [address] Care Team Providers Care Central Sterile Technician Name Role Phone Travis Holbrook MD Primary Care Provider [phone] Encounter Details Date Type Department Care Team (Late st Contact Info) Description 03/08/2024 Lab Requisition [facility] - Main Lab 299 [facility] [place] [address] Lavonne Irvin MD [address] [place], [place] [phone] Essential (primary) hypertension; Acute kidney failure, unspecified [...] mmol/L LAB CHEMISTRY METHOD 03/11/2024 2:58 PM [facility] Potassium 4.2 3.5 - 5.5 mmol/L LAB CHEMISTRY METHOD 03/11/2024 2:58 PM [facility] Chloride 105 96 - 110 mmol/L LAB CHEMISTRY METHOD 03/11/2024 2:58 PM [facility] CO2 32 21 - 32 mmol/L LAB CHEMISTRY METHOD 03/11/2024 2:58 PM [facility] Anion Gap 4 3 - 11 LAB CHEMISTRY METHOD 03/11/2024 2:58 PM [facility] Glucose 79 70 - 100 mg/dL LAB CHEMISTRY METHOD 03/11/2024 2:58 PM [facility] BUN 20 5 - 25 mg/dL LAB CHEMISTRY METHOD 03/11/2024 2:58 PM [facility] Creatinine 1.34(H) 0.50 - 1.10 mg/dL LAB CHEMISTRY METHOD 03/11/2024 2:58 PM [facility] eGFR 42(L) >=60 mL/min/1. 73m2 LAB CHEMISTRY METHOD 03/11/2024 2:58 PM [facility] Comment:Calculation based on the??Chronic Kidney Disease Epidemiology Collaboration (CKD-EPI) equation refit??without adjustment for race. BUN/Creatinine Ratio 14.9 LAB CHEMISTRY METHOD 03/11/2024 2:58 PM [facility] Calcium 9.1 8.5 - 10.5 mg/dL LAB CHEMISTRY METHOD 03/11/2024 2:58 PM [facility] Blood Venous blood specimen / Unknown Venipuncture / Unknown 03/11/2024 7:17 AM EST 03/11/2024 11:24 AM EST us Lavonne Irvin MD LAB BLOOD ORDERABLES Final Resul t [facility] [address] [place] [address], * (ABNORMAL) Complete blood count (03/11/2024 7:17 AM EST) WBC 4.7(L) 4.8 - 10.8 K/mcL LAB HEMETOLOGY METHOD 03/11/2024 11:48 AM EST [facility] RBC 3.70(L) 3.80 - 4.80 M/mcL LAB HEMETOLOGY METHOD 03/11/2024 11:48 AM [facility] Hemoglobin 11.2(L) 11.5 - 16.0 g/dL LAB HEMETOLOGY METHOD 03/11/2024 11:48 AM [facility] Hematocrit 35.8 35.0 - 47.0 % LAB HEMETOLOGY METHOD 03/11/2024 11:48 AM [facility] MCV 97.0 79.0 - 98.0 FL LAB HEMETOLOGY METHOD 03/11/2024 11:48 AM EST [facility] MCH 30.4 27.0 - 32.0 pcg LAB HEMETOLOGY METHOD 03/11/2024 11:48 AM [facility] MCHC 31.3(L) 32.0 - 37.0 g/dL LAB HEMETOLOGY METHOD 03/11/2024 11:48 AM [facility] RDW 15.5(H) 11.0 - 15.0 % LAB HEMETOLOGY METHOD 03/11/2024 11:48 AM EST [facility] Platelets 166 130 - 400 K/mcL LAB HEMETOLOGY METHOD 03/11/2024 11:48 AM [facility] MPV 10.6 7.0 - 11.0 FL LAB HEMETOLOGY METHOD 03/11/2024 11:48 AM EST [facility] NRBC 0.0 <1.0 % LAB HEMETOLOGY METHOD 03/11/2024 11:48 AM EST [facility] NRBC Absolute 0.00 <0.10 K/mcL LAB HEMETOLOGY METHOD 03/11/2024 11:48 AM EST [facility] Blood Venous blood specimen / Unknown Venipuncture / Unknown 03/11/2024 7:17 AM EST 03/11/2024 11:24 AM EST us Lavonne Irvin MD LAB BLOOD ORDERABLES Final Resul t [facility] [address] [place] [address], documented in this encounter Visit Diagnoses Diagnosis Essential (primary) hypertension Unspecified essential hypertension Acute kidney failure, unspecified (CMS/HCC) Acute kidney failure, unspecified documented in this encounter Care Teams Central Sterile Technician Relationship Specialty Start Date End Date Travis Holbrook MD [address] [place] [address], [phone] PCP - General Family Medicine 02/28/24 documented as of this encounter
--- NOTE | 2024-05-21 14:50 | PC.NURSE ---
pt still remains lethargic but arousable to verbal stimuli. vss and up to date. nsr on the laboratory monitor. pt remains on 2L via NC at this time. no apparent respiratory distress noted. pt no longer audibly wheezing. no sob/wob noted. respirations even/unlabored. resting comfortably w/ the lights dimmed. plan of care ongoing. call phillips placed within reach.
[2024-05-21 15:31] LABS: Appearance Urine Clear; Color Urine Yellow; Glucose Urine UA Negative (Negative); Leukocyte Esterase Urine Moderate (2+) (Negative); Nitrite Urine Positive (Negative); PH 5.5 (5.0-9.0); UMIC TRIGGER UACC YES; Urine Blood Negative (Negative); Urine Ketones Negative (Negative); Urine Protein Negative (Neg-Trace)
[2024-05-21 15:36] LABS: Bacteria Urine 1+ (None Seen); RBC Urine 0-2 /HPF (0-2); UACC Culture Trigger YES; WBC Urine 21-50 /HPF (0-5)
--- NOTE | 2024-05-21 15:40 | PC.NURSE ---
1:1 assist out of bed and to the commode as pt has an unsteady gait. urine specimen obtained/sent to lab. pt assisted back into bed. turned/repositioned to comfort. purewick placed. remains on 2L via NC. pending admission. no sob/wob noted. respirations even/unlabored. plan of care ongoing. call phillips placed within reach.
[2024-05-21 16:44] LABS: Amphetamine Screen Urine Not Detected (Not Detect); Barbiturates, Urine Not Detected (Not Detect); Benzodiazepines Screen Urine Not Detected (Not Detect); Buprenorphine Scr Not Detected (Not Detect); Cannabinoid Screen Urine Not Detected (Not Detect); Cocaine Screen Urine Not Detected (Not Detect); Fentanyl, urine Not Detected (Not Detect); Methadone Screen, Urine Not Detected (Not Detect); Opiate Screen Urine POSITIVE (Not Detect); Oxycodone Screen Urine Positive (Not Detect); Phencyclidine Screen Urine Not Detected (Not Detect)
--- NOTE | 2024-05-21 16:47 | PC.NURSE ---
pt speaking w/ admitting hospitalist at this time. notified/aware of plan of care in regards to being admitted at this time.
--- NOTE | 2024-05-21 17:07 | PM.IMHP ---
History of Present Illness Date of Service: 05/21/24 Chief Complaint: Lower extremity weakness unable to stand and pivot/mild shortness of breath 74-year-old female patient with past medical history significant for hypertension, COPD, rheumatoid arthritis on prednisone past methotrexate, hypothyroidism mood disorder, chronic right tibial blood low fracture with TKA, fibromyalgia, recurrent history of ESBL UTI, discharged from [facility] in 03/15/2024 after diagnosed to have minimally displaced subcortical/periprosthetic fracture of the medial metaphysis of the femur, patient presented to [facility] today due to symptoms of bilateral lower extremity weakness unable to stand up and pivot felt no strength in leg denies any fall, on her way EMS noted that patient has bilateral expiratory wheeze, workup in the emergency room showed sodium 134, potassium 5.2, chloride 106 bicarb 18, BUN 28 creatinine 1.36 at baseline blood sugar 121, magnesium 2.7, BNP 97 at baseline, troponin 9.6, chest x-ray showed pulmonary edema, bilateral effusions small to moderate, ED physician noted bilateral lower extremity swelling,toe redness therefore Doppler study obtained that showed no DVT, duplex arterial scan showed aortoiliac disease proximal, patient treated in the emergency room with 1 dose of IV Lasix, IV magnesium, IV Solu Medrol, DuoNeb at present patient denies significant shortness of breath, denies cough, no PND, no orthopnea, denies worsening peripheral edema, patient on chronic home O2 3 L at night and with naps at present on 2 L of oxygen with stable oxygenation 96%. On arrival patient noted to have hypoxia with finger oximetry 88% , Patient is now being admitted to [facility] due to acute hypoxic respiratory failure likely due to mild exacerbation of chronic lung disease due to rheumatoid arthritis, and bilateral lower extremity weakness, has chronic lung changes due to rheumatoid arthritis. Review of Systems Review of Systems: General no headache, no dizziness, no fever chills. CVS no chest pain, no palpitation. Respiratory no cough, no respiratory distress. Gastrointestinal no nausea no vomiting, no abdominal pain no urgency, no frequency musculoskeletal bilateral hand pain, no strength in lower extremity all other system reviewed and are negative [facility] Medical History Bacteriuria Urinary tract infection due to extended-spectrum beta lactamase (ESBL) producing Escherichia coli History of ESBL E. coli infection Osteomyelitis COPD (chronic obstructive pulmonary disease) Rheumatoid lung Hypothyroidism Congestive heart failure Fibromyalgia HTN (hypertension) Depression Rheumatoid arthritis Family History Father No problems noted. 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 assistance with cleaning, cooking, shopping daily) Unable to assess alcohol history related to: Unknown Alcohol intake: never Patient Tobacco Use Status: Former Tobacco user Tobacco use type: Cigarette Smoked in Last 30 Days: No e-Cigarette/Vaping Use: Never Used Second Hand Smoke Exposure: No Use of substances other than those prescribed or required for medical reasons: No Advance Directives: Yes Advance Directives on File: Yes Advance Directives Date on File: 09/29/23 Do you have a plan to hurt others: No Plan Nutrition Risks: No Nutritional Risk service: No Meds Allergies Allergy/AdvReac Type Severity Reaction Status Date / Time lisinopril [LISINOPRIL] Allergy Severe ANAPHYLAXIS Verified 05/21/24 11:15 Sulfa (Sulfonamide Allergy Intermediate RASH Verified 05/21/24 11:15 Antibiotics) [SULFA (SULFONAMIDE ANTIBIOTICS)] tramadol [TRAMADOL] Allergy Intermediate RASH Verified 05/21/24 11:15 Pqfpphc-FTC-VyE Reductase Allergy Rash Verified 05/21/24 11:15 Inhibitor [Sjqbewx-Ivl-Cai Reductase Inhibitor] hydrochlorothiazide [HCTZ] AdvReac Unknown ABNORMAL Verified 05/21/24 11:15 LABS? Active Medications: Current Medications Acetaminophen (Acetaminophen 325 Mg Tablet) 650 mg PO Q6H PRN PRN Reason: Pain, Mild 1-3,fever,headache Calcium Carbonate (Calcium Carbonate 750 Mg Tab.Chew) 750 mg PO Q4H PRN PRN Reason: Heartburn Magnesium Hydroxide (Milk Of Magnesia 30 Ml Oral.Susp) 30 ml PO DAILY PRN PRN Reason: Constipation Melatonin (Melatonin 3 Mg Tablet) 6 mg PO BEDTIME PRN PRN Reason: Insomnia Ondansetron HCl (Ondansetron Hcl 4 Mg/2 Ml Vial) 4 mg IVPUSH Q8H PRN PRN Reason: Nausea and Vomiting Sodium Chloride (0.9 % Sodium Chloride Flush 3 Ml Syringe) 3 ml IVFLUSH [facility] Medications ?Medication ?Instructions ?Recorded ?Confirmed ?Last Taken ?Type bupropion HCl 300 mg 24 hr tablet, 300 mg PO DAILY@0900 08/23/21 05/21/24 02/18/24 History extended release duloxetine 60 mg capsule,delayed 60 mg PO DAILY 08/23/21 05/21/24 02/18/24 History release levothyroxine 50 mcg tablet 50 mcg PO DAILY@0630 08/23/21 05/21/24 02/18/24 History methotrexate sodium 2.5 mg tablet 10 tab PO MO 08/23/21 05/21/24 05/19/24 History omeprazole 40 mg capsule,delayed 40 mg PO DAILY@0630 08/23/21 05/21/24 02/18/24 History release prednisone 1 mg tablet 4 mg PO DAILY 08/23/21 05/21/24 02/18/24 History prednisone 5 mg tablet 5 mg PO DAILY PRN arthritis pain 02/16/22 05/21/24 11/24/23 12:00 History pregabalin 200 mg capsule 200 mg PO BID 01/07/23 05/21/24 02/18/24 History folic acid 1 mg tablet 2 mg PO DAILY 10/13/23 05/21/24 02/18/24 History bupropion HCl 150 mg 24 hr tablet, 150 mg PO DAILY@0900 11/25/23 05/21/24 02/18/24 History extended release acetaminophen 325 mg tablet 650 mg PO Q4H PRN Moderate Pain 03/04/24 05/21/24 Unknown History (Tylenol) (Scale Score 5-6) lidocaine HCl 4 % topical patch 1 patch topical DAILY PRN Pain 03/04/24 05/21/24 Unknown History biotin 5,000 mcg sublingual tablet 5,000 mcg sublingual DAILY 05/03/24 05/21/24 Unknown History ibuprofen 200 mg tablet 600 mg PO Q6H PRN Pain 05/03/24 05/21/24 Unknown History melatonin 10 mg tablet 10 mg PO BEDTIME PRN Sleep 05/03/24 05/21/24 Unknown History multivitamin 1 tab PO DAILY 05/03/24 05/21/24 Unknown History vitamin B complex 1 cap PO DAILY 05/03/24 05/21/24 Unknown History bisacodyl 5 mg tablet,delayed 5 mg PO DAILY PRN Constipation 05/21/24 05/21/24 Unknown History release cholecalciferol (vitamin D3) 25 25 mcg PO DAILY 05/21/24 05/21/24 Unknown History mcg (1,000 unit) capsule (Vitamin D3) Physical Exam Vital Signs and Narrative: Vital Signs: Last Vital Signs Temp 98.3 F 05/21/24 16:28 Pulse 74 05/21/24 16:28 Resp 14 05/21/24 16:28 BP 151/89 H 05/21/24 16:28 Pulse Ox 96 05/21/24 16:28 O2 Del Method Nasal Cannula 05/21/24 16:28 O2 Flow Rate 2 05/21/24 16:28 BMI result Body Mass Index 33.9 Const: Other: General resting comfortably in no acute distress. Anicteric sclera Neck no JVD. CVS regular rate rhythm, Respiratory lungs bilateral expiratory wheeze , no respiratory distress, Gastrointestinal abdomen soft, non tender, bowel sounds audible,. Extremities bilateral lymphedema left greater than right/chronic redness of plantar foot and toes due to rheumatoid arthritis Right hand deformity due to rheumatoid arthritis Neuro non focal Psych appropriate affect Results Labs 05/21/24 11:26 05/21/24 13:20 Labs: Laboratory Results - last 24 hr 05/21/24 05/21/24 05/21/24 11:26 11:29 11:40 MCV 93.8 MCH 30.6 MCHC 32.6 RDW 16.7 H Plt Count 125 L D MPV 11.1 Immature Gran % (Auto) 0.6 H Neut % (Auto) 84.2 H Lymph % (Auto) 11.2 L [place] % (Auto) 3.1 Eos % (Auto) 0.7 Baso % (Auto) 0.2 Lymph # (Auto) 0.9 L [place] # (Auto) 0.3 Eos # (Auto) 0.1 Baso # (Auto) 0.0 Abs Immat Gran (auto) 0.05 H Absolute Neuts (auto) 7.0 Absolute Nucleated RBC 0.000 Nucleated RBC % (auto) 0.0 Hold Blue Top SEE NOTE VBG pH 7.34 VBG pCO2 32 VBG pO2 57 VBG HCO3 17 L VBG O2 Saturation 87.0 VBG Base Excess -6.7 Anion Gap Estim Creat Clear Calc Estimated GFR Random Glucose Lactic Acid 1.5 Calcium Magnesium Total Bilirubin Direct Bilirubin AST ALT Alkaline Phosphatase B-Natriuretic Peptide 97 Total Protein Albumin Lipase Urine Color Urine Appearance Urine pH Ur Specific [place] Urine Protein Urine Glucose (UA) Urine Ketones Urine Blood Urine Nitrite Ur Leukocyte Esterase Urine RBC Urine WBC Ur Squamous Epith Cells Urine Bacteria Hyaline Casts Urine Opiates Screen Ur Buprenorphine Scrn Ur Oxycodone Screen Urine Methadone Screen Urine Fentanyl Screen Ur Barbiturates Screen Ur Phencyclidine Scrn Ur Amphetamines Screen U Benzodiazepines Scrn Urine Cocaine Screen U Marijuana (THC) Screen Ethyl Alcohol Influenza Type A (PCR) NEGATIVE Influenza Type B (PCR) NEGATIVE RSV RNA Qual (PCR) NEGATIVE SARS-CoV-2 RNA (RT-PCR) NEGATIVE 05/21/24 05/21/24 13:20 15:21 MCV MCH MCHC RDW Plt Count MPV Immature Gran % (Auto) Neut % (Auto) Lymph % (Auto) Len[place] % (Auto) Eos % (Auto) Baso % (Auto) Lymph # (Auto) [place] # (Auto) Eos # (Auto) Baso # (Auto) Abs Immat Gran (auto) Absolute Neuts (auto) Absolute Nucleated RBC Nucleated RBC % (auto) Hold Blue Top VBG pH VBG pCO2 VBG pO2 VBG HCO3 VBG O2 Saturation VBG Base Excess Anion Gap 15 Estim Creat Clear Calc 45.0 Estimated GFR 38 Random Glucose 121 H Lactic Acid Calcium 9.2 D Magnesium 2.7 H Total Bilirubin 0.5 Direct Bilirubin 0.3 AST 116 H ALT 179 H Alkaline Phosphatase 185 H B-Natriuretic Peptide Total Protein 8.4 H Albumin 3.7 Lipase 8 Urine Color Yellow Urine Appearance Clear Urine pH 5.5 Ur Specific [place] 1.010 Urine Protein Negative Urine Glucose (UA) Negative Urine Ketones Negative Urine Blood Negative Urine Nitrite Positive H Ur Leukocyte Esterase Moderate (2+) H Urine RBC 0-2 Urine WBC 21-50 H Ur Squamous Epith Cells 3-5 Urine Bacteria 1+ Hyaline Casts 3-5 Urine Opiates Screen POSITIVE H Ur Buprenorphine Scrn Not Detected Ur Oxycodone Screen Positive H Urine Methadone Screen Not Detected Urine Fentanyl Screen Not Detected Ur Barbiturates Screen Not Detected Ur Phencyclidine Scrn Not Detected Ur Amphetamines Screen Not Detected U Benzodiazepines Scrn Not Detected Urine Cocaine Screen Not Detected U Marijuana (THC) Screen Not Detected Ethyl Alcohol 11 Influenza Type A (PCR) Influenza Type B (PCR) RSV RNA Qual (PCR) SARS-CoV-2 RNA (RT-PCR) Imaging Radiologist's Impressions: Impressions Chest X-Ray 05/21/24 12:05 IMPRESSION: Pulmonary edema and bilateral pleural effusions, small to moderate volume. Cardiomegaly versus pericardial effusion. Electronically signed by: George Low MD 05/21/2024 12:09 PM EST RP Venous Duplex 05/21/24 13:27 IMPRESSION: No acute deep venous thrombosis involving the bilateral lower extremities. Negative exam. Questionable 3 cm left popliteal cyst.. Electronically signed by: George Low MD 05/21/2024 02:51 PM EST RP Duplex Scan Lower Extremity Artery 05/21/24 13:59 IMPRESSION: 1. Peripheral arterial testing with velocity measurements suggesting moderate peripheral vascular disease, as described above, worse on the left. 2. Severe stenosis suggested in the left proximal superficial femoral artery. 3. Scattered mild to moderate atherosclerotic disease is present. The left anterior tibial artery could not be visualized and may be occluded. Electronically signed by: Jeronimo James MD 05/21/2024 03:47 PM EST RP Assessment and Plan (1) Acute exacerbation of chronic obstructive pulmonary disease: Status: Acute (2) Lower extremity weakness: Status: Acute Plan 73yo F with HTN, COPD, RA on prednisone + MTX, hypothyroidism, chronic R tibila plateau fracture with TKA, fibromyalgia, mood disorder, and hx ESBL UTI recently admitted here after a fall presented to [facility] today due to bilateral lower extremity weakness unable to stand and pivot, chronically wheelchair-bound, noted to have hypoxia and expiratory wheeze chest x-ray suggestive of CHF with stable BNP, no worsening leg edema no PND or orthopnea, will be admitted to telemetry unit for continued monitoring and treatment, no prior history of CHF noted. Bilateral lower extremity weakness with history of rheumatoid arthritis steroid dependent PT eval Chronic wheelchair-bound Likely due to worsening underlying disease Acute on chronic hypoxic respiratory failure due to worsening underlying rheumatoid lung disease /COPD Received IV steroids and IV Lasix in ED Influenza/RSV and SARS COVID negative Hold further diuretics follow labs, no prior history of CHF IV Solu-Medrol 40 b.i.d./ DuoNeb scheduled and as needed check echocardiogram /supportive care Elevated Liver enzymes no abdominal pain, no nausea vomiting likely due to methotrexate/cymbalta/wellbutrin , will obtain hepatitis serology mild acute hyponatremia and hyperkalemia, follow labs. Mild hypermagnesemia follow labs Chronic pain secondary to RA continue home medications oxycodone ,lyrica hold ibuprofen Chronic lymphedema left greater than right leg Peripheral arterial disease abnormal arterial ultrasound of lower extremity obtain vasc Hypertension continue atenolol Hypothyroidism continue Synthroid mood disorder continue home meds class 1 obesity recommend low-calorie diet DVT prophylaxis with Lovenox Full code In my clinical judgment patient required 2 night inpatient hospitalization for management of acute CHF requiring further testing and expert consultation. Quality Stroke Does the patient have a stroke diagnosis?: No VTE Prior VTE?: No VTE Risk Level:: Medical - moderate - high VTE Device Contraindication: Treatment Not Indicated VTE Drug Contraindication: N/A - Med Ordered
--- NOTE | 2024-05-21 18:09 | PHA.MEDREC ---
Addendum entered by Jason Haywood, [facility] 05/21/24 18:19: med rec reviewed Original Note: Pharmacy Consult ? Medication Reconciliation Pharmacy has completed the medication reconciliation. Spoke with patient to confirm medications. She had methotrexate on Monday, usually takes on Mondays. She takes both wellbutrins at the same time. She reports 2 tabs of folic acid daily d/t low levels. Patient says she still takes prednisone 4 mg daily (last filled 12/2023 x30 DS) and 5 mg prn pain. She says she has a rescue inhaler at home and a daily maintenance inhaler but has not been using them and does not know the names. She only took atenolol and oxycodone today.
[2024-05-21] MEDS: Enoxaparin Sodium 40 MG/0.4 ML SYRINGE SUBCUT (18:20)
[2024-05-21] MEDS: oxyCODONE HCl Immed Release 5 MG TABLET 10 MG PO ×2 (18:24→20:25)
--- NOTE | 2024-05-21 18:29 | PC.NURSE ---
pt more awake/alert at this time. answering questions/following commands appropriately. able to hold a conversation w/o falling asleep. vss and up to date. nsr on the manager cardiac. pt remains on 2L via NC - no sob/wob noted. respirations even/unlabored. pt reporting pain increase in bilateral knees - prn medication utilized. effectiveness pending. pt pending bed assignment at this time. plan of care ongoing. call phillips placed within reach.
[2024-05-21] MEDS: Albuterol/Iprat 2.5/0.5MG 3 ML AMPUL.NEB INHALE (19:14)
[2024-05-21] MEDS: methylPREDNISolone Sod Succ 40 MG/ML VIAL IVPUSH (22:38)
--- NOTE | 2024-05-21 23:09 | PC.NURSE ---
this rn assumed care of pt, pt appears sleeping, respirations even and unlabored. vss.
[2024-05-22] VITALS (11 sets, daily range): BP systolic 141–195; BP diastolic 68–106; PULSE 70–94; RESP 12–17; TEMP 36.7–37; O2SAT 95–98
[2024-05-22] MEDS: 0.9 % Sodium Chloride Flush 3 ML SYRINGE IVFLUSH ×2 (01:08→17:29)
--- NOTE | 2024-05-22 04:08 | PC.NURSE ---
pt assisted to bedside commode, 2 person Assist. pt unable to move bowels, urine voided at this time. assisted back into bed.
[2024-05-22] MEDS: oxyCODONE HCl Immed Release 5 MG TABLET 20 MG PO ×5 (04:56→22:55)
--- NOTE | 2024-05-22 05:03 | PC.NURSE ---
pt reporting 7/10 bilateral leg and arm pain at this time, pt medicated with prn medications, tolerated well whole with water.
[2024-05-22] MEDS: Omeprazole 40 MG CAPSULE.DR PO (05:36)
[2024-05-22] MEDS: Levothyroxine Sodium 50 MCG TABLET PO (05:36)
--- NOTE | 2024-05-22 07:00 | CA_ITS ---
Transthoracic Echocardiogram Patient (Last, First, Middle): Alexandrea Renee, Gender: Female Date of : 1950 Age: 74 Procedure Date: 05/22/2024 Procedure Type: Transthoracic Echocardiogram Location: ER Height: 172.72 cm Weight: 83.92 kg BSA: 1.98 m2 Heart Rate: bpm BP: 133 / 78 mmHg Shoe Folder: JEREMY Referring MD: Ortiz Blevins MD Symptoms: chf Study Quality: Adequate Conclusions: - Normal left ventricular size and systolic function. There is mildly increased left ventricular wall thickness. The visually estimated ejection fraction is between 60-65%. - Normal right ventricular cavity size and systolic function. - Interatrial shunt cannot be excluded by color Doppler. - There is mild aortic valve stenosis. Findings Left Ventricle Normal left ventricular size and systolic function. There is mildly increased left ventricular wall thickness. The visually estimated ejection fraction is between 60-65%. There is no evidence of regional wall motion abnormalities. Abnormal diastolic function is noted. Spectral Doppler is indicative of an impaired relaxation filling pattern. E/E prime ratio is between 8 and 15 consistent with indeterminate filling pressures. Right Ventricle Normal right ventricular cavity size and systolic function. Atria The left atrium is likely dilated. Interatrial shunt cannot be excluded by color Doppler. The right atrium is likely dilated. Aortic Valve Normal aortic valve structure and function. There is a normal trileaflet aortic valve. There is mild aortic valve stenosis. The peak aortic velocity is 2.02 m/s. The mean gradient is 9 mmHg. The aortic valve area is 2.01 cm2. There is no aortic valve regurgitation. Mitral Valve Normal mitral valve structure and function. There is no mitral valve regurgitation. There is no mitral valve stenosis. Pulmonic Valve The pulmonic valve is likely normal. Tricuspid Valve Normal tricuspid valve structure. There is no tricuspid valve regurgitation. Tricuspid regurgitation envelope is inadequate for calculation of right ventricular systolic pressure. Significantly elevated right atrial pressure. Great Vessels All visible segments of the aorta are normal in size. The visualized portions of the pulmonary artery and branches are normal. Venous The inferior vena cava is dilated and collapses less than 50% with inspiration. Pericardium/Pleural There is no evidence of pericardial effusion. Prior Study Comparison No prior study available for comparison. Measurements 2D Linear Measurements IVSd: 0.99 0.6-0.9/0.6-1.0 cm LVIDd: 5.22 3.9-5.3/4.2-5.9 cm LVIDd Index: 2.64 2.4-3.2/2.2-3.1 cm/m2 LVIDs: 3.12 2.0-3.6 cm LVPWd: 1.11 0.7-1.1 cm LA Diam: 4.00 2.7-3.8/3.0-4.0 cm LAIDs Index: 2.02 1.5-2.3 cm/m2 LV Mass: 259.48 67-162/88-224 g LV Mass Index: 131.05 43-95/49-115 g/m2 LVOT Diam: 1.90 3.0+(-)1.3 cm 2D Systolic Function EF 4C: 69.30 >55% EF 2C: 70.20 >55% EF BiP: 69.20 >55% Mitral Valve MV Pk E: 0.79 MV PK A: 0.97 MV Decel Time: 320.00 E/A: 0.80 E'Lateral: 7.62 E'Medial: 6.20 E/E' Med: 12.70 E/E' Lat: 10.30 PHT: 94.00 MVA PHT: 2.34 Decel Wilbarger: 2.47 Aortic Valve AoV Pk Dimitrios: 2.02 AoV Mn Dimitrios: 1.36 AoV VTI: 0.46 AoV Pk Grad: 16.00 Aov Mn Grad: 9.00 DEL Cont.VTI: 2.01 LVOT LVOT Pk Dimitrios: 1.42 LVOT Mn Dimitrios: 0.97 LVOT VTI: 0.33 LVOT Pk Grad: 8.00 LVOT Mn Grad: 4.00 LVOT Diam: 1.90 LVOT Area: 2.84 Diastolic Function MV Pk E: 0.79 MV Pk A: 0.97 E/A: 0.80 E'Medial: 6.20 E/E' Med: 12.70 E' Laterial: 7.62 E/E' Lat: 10.30 Right Ventricle TAPSE (mm): 20.70 TVS' Dimitrios: 10.30 Tricuspid Valve RA Press: 15.00 Great Vessels Aorta Sinus of Valsalva: 3.19 2.0-3.[address] [place]: 2.60 1.7-3.4 cm Ao Asc: 3.30 2.1-3.4 cm Updated in Other Vendor System with Status of Final Fredi Mckinney MD electronically signed on 05/22/2024 10:52:57 AM with status of Final
[2024-05-22] MEDS: Albuterol/Iprat 2.5/0.5MG 3 ML AMPUL.NEB INHALE ×2 (07:04→19:19)
[2024-05-22] MEDS: DULoxetine HCl 60 MG CAPSULE.DR PO (08:58)
[2024-05-22] MEDS: atenoloL 25 MG TABLET PO (08:58)
[2024-05-22] MEDS: buPROPion HCl XL 300 MG TAB.ER.24H PO (08:59)
[2024-05-22] MEDS: Pregabalin 200 MG CAPSULE PO ×2 (08:59→21:43)
[2024-05-22] MEDS: Furosemide 20 MG TABLET PO (08:59)
[2024-05-22] MEDS: Folic Acid 1 MG TABLET 2 MG PO (08:59)
[2024-05-22] MEDS: buPROPion HCl XL 150 MG TAB.ER.24H PO (08:59)
[2024-05-22 09:18] LABS: Alanine Aminotransferase 129 U/L (0-31); Albumin Level 3.5 g/dL (3.5-5.0); Alkaline Phosphatase 167 U/L (39-117); Anion Gap 16 (12-20); Aspartate Amino Transferase 48 U/L (5-31); Bilirubin Direct 0.3 mg/dL (0.0-0.5); Bilirubin Total 0.5 mg/dL (0.0-1.0); Blood Urea Nitrogen 38 mg/dL (9-16); Calcium 9.1 mg/dL (8.4-10.2); Carbon Dioxide 19 mmol/L (22-29); Chloride 107 mmol/L (96-108); Creatinine Clr Calc Pharmacy 52.3; Estimated Glomerular Filt Rate 45; Glucose Random 134 mg/dL (60-115); Magnesium 2.5 mg/dL (1.6-2.6); Potassium 4.6 mmol/L (3.3-5.1); Sodium 137 mmol/L (135-145); Total Protein 8.2 g/dL (6.5-8.0)
--- NOTE | 2024-05-22 10:59 | MHC.CM.PN ---
IMM 05/22/24, Pt. lives alone, she has 2 hrs a day [employer] services through [facility]. She has had VNA services in the past following hosp. stays, she said from [place]. She has been to [facility] at [facility] (will not go there again) and [place], which she said was good. For DME, she uses an electric w/c, and has grab bars in bathroom. PCP confirmed: Mayra Acosta in [place]. HCP confirmed: Susy. DCP: home with services. CM to follow for DC needs.
--- NOTE | 2024-05-22 11:43 | P.CONGS_ITS ---
<Statement entered by Mani Atkins MD - 05/22/24 12:11> I have seen and evaluated the patient and agree with history, findings, assessment and plan documented by Alecia Wagner PA-c. No acute issues and has been followed by [facility] vascular. We will see us on an as-needed basis. History of Present Illness Consult details Consult date: 05/22/24 Narrative: We are consulted on Alexandrea, a pleasant 74-year-old female patient, for concerns of discoloration of her toes bilaterally. She presented to the ER with concerns of bilateral lower extremity weakness, inability to walk and possible exacerbation of congestive heart failure. She does have a lengthy history of RA on methotrexate and steroids, lymphedema, congestive heart failure, HTN, and COPD, where she requires 3 L of O2 at night. She states she is feeling a little bit better this morning with no complaints of shortness of breath or difficulty breathing. She states she is followed by [facility] vascular with Dr. Sanders, she missed her last appointment. She has chronic pain, but does not state her feet hurt anymore than they usually do. She states her legs are usually more swollen than they are today. Review of Systems 2 Constitutional: Constitutional: Reports as per HPI and Denies weakness ENT: Reports Normal hearing present and Denies dizziness Cardiovascular: Cardiovascular: Reports as per HPI, Denies chest pain, Denies chest pain at rest, Denies chest pain with activity, Denies dyspnea and Denies dyspnea on exertion Respiratory: Respiratory: Reports as per HPI, Denies cough, Denies dyspnea and Denies dyspnea on exertion Gastrointestinal: Gastrointestinal: Reports as per HPI, Denies abdominal pain, Denies nausea and Denies vomiting Musculoskeletal: Musculoskeletal: Denies numbness Integumentary/Breasts: Skin/Breast: Reports as per HPI, Denies erythema and Denies wounds Neurologic: Reports Normal hearing present, Denies dizziness, Denies numbness, Denies Sensory deficit (Neuro) and Denies weakness Psychiatric: Psychiatric: Reports no additional psychiatric complaints Endocrine: Endocrine: Reports no additional endocrine complaints PMFSH Past Medical History Medical History Bacteriuria Urinary tract infection due to extended-spectrum beta lactamase (ESBL) producing Escherichia coli History of ESBL E. coli infection Osteomyelitis COPD (chronic obstructive pulmonary disease) Rheumatoid lung Hypothyroidism Congestive heart failure Fibromyalgia HTN (hypertension) Depression Rheumatoid arthritis Family History Family History Father No problems noted. Other Heart disease Surgical History Surgical History Hx of prior ablation treatment Knee joint replacement status Social History Social History Household Members: None Household Members Other:: 0 Housing: House Do you presently have visiting nurse or other home services: Yes Unable to assess alcohol history related to: Unknown Alcohol intake: never Patient Tobacco Use Status: Former Tobacco user Tobacco use type: Cigarette Smoked in Last 30 Days: No e-Cigarette/Vaping Use: Never Used Patient Interested in Nicotine Replacement: No Patient Given Instructions on How to Stop Smoking: No Second Hand Smoke Exposure: No Use of substances other than those prescribed or required for medical reasons: No Currently Displaying Signs/Symptoms of Drug Intoxication Withdrawal: No Any prior treatment program specific to substance use: No Have you been hit, kicked, punched, or otherwise hurt by someone within the past year? If so, by whom?: No Do you feel safe in your current relationship?: No Current Relationship Is there a partner from a previous relationship who is making you feel unsafe now?: No Are you made to feel afraid or neglected: No Spiritual Healthcare Practices: confucianist Advance Directives: Yes Advance Directives on File: Yes Advance Directives Date on File: 09/29/23 Do you have a plan to hurt others: No Plan Recently lost weight without trying: No Eating poorly because of decreased appetite: No Nutrition Risks: No Nutritional Risk Patient : No : No Poor oral hygiene: No service: No Meds Allergies Allergy/AdvReac Type Severity Reaction Status Date / Time lisinopril [LISINOPRIL] Allergy Severe ANAPHYLAXIS Verified 05/21/24 11:15 Sulfa (Sulfonamide Allergy Intermediate RASH Verified 05/21/24 11:15 Antibiotics) [SULFA (SULFONAMIDE ANTIBIOTICS)] tramadol [TRAMADOL] Allergy Intermediate RASH Verified 05/21/24 11:15 Rzmlact-[id number] Reductase Allergy Rash Verified 05/21/24 11:15 Inhibitor [Abtzaco-Geo-Wzw Reductase Inhibitor] hydrochlorothiazide [HCTZ] AdvReac Unknown ABNORMAL Verified 05/21/24 11:15 LABS? Active Medications: Current Medications Acetaminophen (Acetaminophen 325 Mg Tablet) 650 mg PO Q6H PRN PRN Reason: Pain, Mild 1-3,fever,headache Albuterol/Ipratropium (Albuterol/Iprat 2.5/0.5mg 3 Ml Ampul.Neb) 3 ml INHALE RQ6H WHILE AWAKE [facility] Last Admin: 05/22/24 07:04 Dose: 3 ml Atenolol (Atenolol 25 Mg Tablet) 25 mg PO DAILY [facility]; Protocol Last Admin: 05/22/24 08:58 Dose: 25 mg Bisacodyl (Bisacodyl 5 Mg Tablet.Dr) 5 mg PO DAILY PRN PRN Reason: Constipation Bupropion HCl (Bupropion Hcl Xl 150 Mg Tab.Er.24h) 150 mg PO DAILY@0900 [facility] Last Admin: 05/22/24 08:59 Dose: 150 mg Bupropion HCl (Bupropion Hcl Xl 300 Mg Tab.Er.24h) 300 mg PO DAILY@0900 [facility] Last Admin: 05/22/24 08:59 Dose: 300 mg Calcium Carbonate (Calcium Carbonate 750 Mg Tab.Chew) 750 mg PO Q4H PRN PRN Reason: Heartburn Doxazosin Mesylate (Doxazosin Mesylate 2 Mg Tablet) 2 mg PO BEDTIME [facility]; Protocol Duloxetine HCl (Duloxetine Hcl 60 Mg Capsule.) 60 mg PO DAILY [facility] Last Admin: 05/22/24 08:58 Dose: 60 mg Enoxaparin Sodium (Enoxaparin Sodium 40 Mg/0.4 Ml Syringe) 40 mg SUBCUT Q24H [facility] Last Admin: 05/21/24 18:20 Dose: 40 mg Folic Acid (Folic Acid 1 Mg Tablet) 2 mg PO DAILY [facility] Last Admin: 05/22/24 08:59 Dose: 2 mg Furosemide (Furosemide 20 Mg Tablet) 20 mg PO DAILY [facility]; Protocol Last Admin: 05/22/24 08:59 Dose: 20 mg Levothyroxine Sodium (Levothyroxine Sodium 50 Mcg Tablet) 50 mcg PO DAILY@0600 [facility] Last Admin: 05/22/24 05:36 Dose: 50 mcg Magnesium Hydroxide (Milk Of Magnesia 30 Ml Oral.Susp) 30 ml PO DAILY PRN PRN Reason: Constipation Melatonin (Melatonin 3 Mg Tablet) 6 mg PO BEDTIME PRN PRN Reason: Insomnia Melatonin (Melatonin 3 Mg Tablet) 6 mg PO BEDTIME PRN PRN Reason: Insomnia Methylprednisolone Sodium Succinate (Methylprednisolone Sod Succ 40 Mg/Ml Vial) 40 mg IVPUSH Q12H [facility] Last Admin: 05/21/24 22:38 Dose: 40 mg Omeprazole (Omeprazole 40 Mg Capsule.) 40 mg PO DAILY@629 [facility] Last Admin: 05/22/24 05:36 Dose: 40 mg Omeprazole (Omeprazole 40 Mg Capsule.) 40 mg PO DAILY@629 [facility] Ondansetron HCl (Ondansetron Hcl 4 Mg/2 Ml Vial) 4 mg IVPUSH Q8H PRN PRN Reason: Nausea and Vomiting Oxycodone HCl (Oxycodone Hcl Immed Release 5 Mg Tablet) 20 mg PO Q4H PRN PRN Reason: Pain, Severe (Pain Scale 7-10) Last Admin: 05/22/24 08:59 Dose: 20 mg Prednisone (Prednisone 5 Mg Tablet) 5 mg PO DAILY PRN PRN Reason: arthritis pain Pregabalin (Pregabalin 200 Mg Capsule) 200 mg PO BID [facility] Last Admin: 05/22/24 08:59 Dose: 200 mg Sodium Chloride (0.9 % Sodium Chloride Flush 3 Ml Syringe) [facility] Admin: 05/22/24 07:43 Dose: Not Given Home Medications ?Medication ?Instructions ?Recorded ?Confirmed ?Last Taken ?Type bupropion HCl 300 mg 24 hr tablet, 300 mg PO DAILY@0900 08/23/21 05/21/24 02/18/24 History extended release duloxetine 60 mg capsule,delayed 60 mg PO DAILY 08/23/21 05/21/24 02/18/24 History release levothyroxine 50 mcg tablet 50 mcg PO DAILY@62908/23/21 05/21/24 02/18/24 History methotrexate sodium 2.5 mg tablet 10 tab PO MO 08/23/21 05/21/24 05/19/24 History omeprazole 40 mg capsule,delayed 40 mg PO DAILY@62908/23/21 05/21/24 02/18/24 History release prednisone 1 mg tablet 4 mg PO DAILY 08/23/21 05/21/24 02/18/24 History prednisone 5 mg tablet 5 mg PO DAILY PRN arthritis pain 02/16/22 05/21/24 11/24/23 12:00 History pregabalin 200 mg capsule 200 mg PO BID 01/07/23 05/21/24 02/18/24 History folic acid 1 mg tablet 2 mg PO DAILY 10/13/23 05/21/24 02/18/24 History bupropion HCl 150 mg 24 hr tablet, 150 mg PO DAILY@0900 11/25/23 05/21/24 02/18/24 History extended release acetaminophen 325 mg tablet 650 mg PO Q4H PRN Moderate Pain 03/04/24 05/21/24 Unknown History (Tylenol) (Scale Score 5-6) lidocaine HCl 4 % topical patch 1 patch topical DAILY PRN Pain 03/04/24 05/21/24 Unknown History biotin 5,000 mcg sublingual tablet 5,000 mcg sublingual DAILY 05/03/24 05/21/24 Unknown History ibuprofen 200 mg tablet 600 mg PO Q6H PRN Pain 05/03/24 05/21/24 Unknown History melatonin 10 mg tablet 10 mg PO BEDTIME PRN Sleep 05/03/24 05/21/24 Unknown History multivitamin 1 tab PO DAILY 05/03/24 05/21/24 Unknown History vitamin B complex 1 cap PO DAILY 05/03/24 05/21/24 Unknown History bisacodyl 5 mg tablet,delayed 5 mg PO DAILY PRN Constipation 05/21/24 05/21/24 Unknown History release cholecalciferol (vitamin D3) 25 25 mcg PO DAILY 05/21/24 05/21/24 Unknown History mcg (1,000 unit) capsule (Vitamin D3) Physical Exam 2 Vital Signs: Vital Signs: Last Vital Signs Temp 98.6 F 05/22/24 06:15 Pulse 94 05/22/24 08:58 Resp 17 05/22/24 07:04 BP 168/106 H 05/22/24 08:59 Pulse Ox 96 05/22/24 06:15 O2 Del Method Nasal Cannula 05/22/24 06:15 O2 Flow Rate 2 05/22/24 06:15 BMI result Body Mass Index 33.9 Const: General: comfortable and no acute distress O rientation/consciousness: patient oriented x3 HEENT: Ears: hearing grossly normal bilaterally Resp: Effort & Inspection: normal respiratory effort and able to speak in complete sentences Auscultation: clear to auscultation bilaterally Cardio: Rate: regular rate Rhythm: regular rhythm Heart sounds: S1 normal heart sound present and S2 normal heart sound present Bruits: no abdominal aortic bruits, no carotid bruits, no femoral bruits and no renal bruits GI: Palpation (GI): No Abdominal aortic bruit present Neuro: General: patient oriented x3 Cranial nerves: Yes Normal hearing present Sensory Exam: No Sensory deficit (Neuro) Extrem: Other: Left lower extremity: 3+ peripheral edema noted. Faint but palpable DP pulses. Chronic arthritic changes to the toes noted. Slight increase in the erythema throughout the toes. Right lower extremity: 2+ peripheral edema noted. Faint but palpable DP pulses. Chronic arthritic changes to the toes noted. Small violaceous spots noted on the either side of the great toenail bed. Results Labs 05/21/24 11:26 05/22/24 08:39 Labs: Abnormal lab results 05/21/24 05/21/24 05/21/24 Range/Units 11:26 11:40 13:20 RDW 16.7 H (11.0-16.0) % Plt Count 125 L D (160-400) X10*3/uL Immature Gran % (Auto) 0.6 H (0.0-0.4) % Neut % (Auto) 84.2 H (45-73) % Lymph % (Auto) 11.2 L (20-40) % Lymph # (Auto) 0.9 L (1.2-4.9) X10*3/uL Abs Immat Gran (auto) 0.05 H (0.00-0.03) X10*3/uL VBG HCO3 17 L (22-26) mmol/L Sodium 134 L (135-145) mmol/L Potassium 5.2 H D (3.3-5.1) mmol/L Carbon Dioxide 18 L (22-29) mmol/L BUN 28 H (9-16) mg/dL Random Glucose 121 H (60-115) mg/dL Magnesium 2.7 H (1.6-2.6) mg/dL AST 116 H (5-31) U/L ALT 179 H (0-31) U/L Alkaline Phosphatase 185 H (39-117) U/L Total Protein 8.4 H (6.5-8.0) g/dL Urine Nitrite (Negative) Ur Leukocyte Esterase (Negative) Urine WBC (0-5) /HPF Urine Opiates Screen (Not Detect) Ur Oxycodone Screen (Not Detect) ng/mL 05/21/24 05/22/24 Range/Units 15:21 08:39 RDW (11.0-16.0) % Plt Count (160-400) X10*3/uL Immature Gran % (Auto) (0.0-0.4) % Neut % (Auto) (45-73) % Lymph % (Auto) (20-40) % Lymph # (Auto) (1.2-4.9) X10*3/uL Abs Immat Gran (auto) (0.00-0.03) X10*3/uL VBG HCO3 (22-26) mmol/L Sodium (135-145) mmol/L Potassium (3.3-5.1) mmol/L Carbon Dioxide 19 L (22-29) mmol/L BUN 38 H (9-16) mg/dL Random Glucose 134 H (60-115) mg/dL Magnesium (1.6-2.6) mg/dL AST 48 H (5-31) U/L ALT 129 H (0-31) U/L Alkaline Phosphatase 167 H (39-117) U/L Total Protein 8.2 H (6.5-8.0) g/dL Urine Nitrite Positive H (Negative) Ur Leukocyte Esterase Moderate (2+) H (Negative) Urine WBC 21-50 H (0-5) /HPF Urine Opiates Screen POSITIVE H (Not Detect) Ur Oxycodone Screen Positive H (Not Detect) ng/mL Short CBC 05/21/24 Range/Units 11:26 WBC 8.4 (4.8-10.8) X10*3/uL Hgb 12.9 (12.0-16.0) g/dl Hct 39.6 (37.0-47.0) % Plt Count 125 L D (160-400) X10*3/uL BMP 05/21/24 05/22/24 13:20 08:39 Sodium 134 L 137 Potassium 5.2 H D 4.6 Chloride 106 107 Carbon Dioxide 18 L 19 L BUN 28 H 38 H Creatinine 1.36 1.17 Calcium 9.2 D 9.1 Liver Function 05/21/24 05/22/24 Range/Units 13:20 08:39 Total Bilirubin 0.5 0.5 (0.0-1.0) mg/dL Direct Bilirubin 0.3 0.3 (0.0-0.5) mg/dL AST 116 H 48 H (5-31) U/L ALT 179 H 129 H (0-31) U/L Alkaline Phosphatase 185 H 167 H (39-117) U/L Albumin 3.7 3.5 (3.5-5.0) g/dL Urine 05/21/24 Range/Units 15:21 Urine Color Yellow Urine Appearance Clear Urine pH 5.5 (5.0-9.0) Ur Specific [place] 1.010 (1.005-1.025) Urine Protein Negative (Neg-Trace) mg/dL Urine Glucose (UA) Negative (Negative) mg/dL All other labs normal. Assessment and Plan (1) Peripheral artery disease: Status: Acute Plan We are consulted on Alexandrea for bilateral toe discoloration. She presented to the ER with bilateral lower extremity weakness with possible congestive heart failure exacerbation. She does have a lengthy history of RA on methotrexate and steroids, with chronic pain. She was found to have slight discoloration of the bilateral toes. The patient states she is followed by [facility] vascular surgery; she states she missed her last appointment with them but we will follow up with him outpatient. We did review the venous duplex as well as the arterial duplex, and there is no acute vascular surgery intervention at this point. We will have her follow up with [facility] vascular surgery upon discharge. Thank you for the consult. There are any questions or concerns, please do not hesitate to reach out to us. Procedures Date of Service Date of Service: 05/22/24
[2024-05-22] MEDS: methylPREDNISolone Sod Succ 40 MG/ML VIAL IVPUSH (12:43)
--- NOTE | 2024-05-22 16:25 | P.PNIM_ITS ---
Subjective Subjective Date of Service: 05/23/24 Interval History: Feels better this morning, offers no acute complaints slept well participated with physical therapy, requesting for daily PT at home. No shortness a breath, no cough, no wheeze. No acute events overnight. Review of Systems All other system reviewed and are negative Physical Exam 2 Vital Signs: Vital Signs: Last Vital Signs Temp 98.6 F 05/22/24 06:15 Pulse 76 05/22/24 15:41 Resp 12 05/22/24 15:41 BP 174/86 H 05/22/24 15:41 Pulse Ox 96 05/22/24 15:41 O2 Del Method Room Air 05/22/24 15:41 O2 Flow Rate 2 05/22/24 06:15 BMI result Body Mass Index 33.9 Const: Other: General resting comfortably in no acute distress. Anicteric sclera Neck no JVD. CVS regular rate rhythm, Respiratory lungs clear to auscultation , no respiratory distress, no wheeze Gastrointestinal abdomen soft, non tender, bowel sounds audible,. Extremities bilateral lymphedema left greater than right/chronic redness of plantar foot and toes due to rheumatoid arthritis Right hand deformity due to rheumatoid arthritis Neuro non focal Psych appropriate affect Objective Data Active Medications Acetaminophen (Acetaminophen 325 Mg Tablet) 650 mg PO Q6H PRN PRN Reason: Pain, Mild 1-3,fever,headache Albuterol/Ipratropium (Albuterol/Iprat 2.5/0.5mg 3 Ml Ampul.Neb) 3 ml INHALE RQ6H WHILE AWAKE [facility] Last Admin: 05/22/24 13:13 Dose: Not Given Documented By: NIURKA Non-Admin Reason: Patient Refused Atenolol (Atenolol 25 Mg Tablet) 25 mg PO DAILY [facility]; Protocol Last Admin: 05/22/24 08:58 Dose: 25 mg Documented By: TY Bisacodyl (Bisacodyl 5 Mg Tablet.) 5 mg PO DAILY PRN PRN Reason: Constipation Bupropion HCl (Bupropion Hcl Xl 150 Mg Tab.Er.24h) 150 mg PO DAILY@0900 [facility] Last Admin: 05/22/24 08:59 Dose: 150 mg Documented By: TY Bupropion HCl (Bupropion Hcl Xl 300 Mg Tab.Er.24h) 300 mg PO DAILY@0900 [facility] Last Admin: 05/22/24 08:59 Dose: 300 mg Documented By: TY Calcium Carbonate (Calcium Carbonate 750 Mg Tab.Chew) 750 mg PO Q4H PRN PRN Reason: Heartburn Doxazosin Mesylate (Doxazosin Mesylate 2 Mg Tablet) 2 mg PO BEDTIME [facility]; Protocol Duloxetine HCl (Duloxetine Hcl 60 Mg Capsule.) 60 mg PO DAILY [facility] Last Admin: 05/22/24 08:58 Dose: 60 mg Documented By: TY Enoxaparin Sodium (Enoxaparin Sodium 40 Mg/0.4 Ml Syringe) 40 mg SUBCUT Q24H [facility] Last Admin: 05/21/24 18:20 Dose: 40 mg Documented By: AJITH Folic Acid (Folic Acid 1 Mg Tablet) 2 mg PO DAILY [facility] Last Admin: 05/22/24 08:59 Dose: 2 mg Documented By: TY Furosemide (Furosemide 20 Mg Tablet) 20 mg PO DAILY [facility]; Protocol Last Admin: 05/22/24 08:59 Dose: 20 mg Documented By: TY Levothyroxine Sodium (Levothyroxine Sodium 50 Mcg Tablet) 50 mcg PO DAILY@0600 [facility] Last Admin: 05/22/24 05:36 Dose: 50 mcg Documented By: URIEL Magnesium Hydroxide (Milk Of Magnesia 30 Ml Oral.Susp) 30 ml PO DAILY PRN PRN Reason: Constipation Melatonin (Melatonin 3 Mg Tablet) 6 mg PO BEDTIME PRN PRN Reason: Insomnia Melatonin (Melatonin 3 Mg Tablet) 6 mg PO BEDTIME PRN PRN Reason: Insomnia Methylprednisolone Sodium Succinate (Methylprednisolone Sod Succ 40 Mg/Ml Vial) 40 mg IVPUSH Q12H [facility] Last Admin: 05/22/24 12:43 Dose: 40 mg Documented By: TY Omeprazole (Omeprazole 40 Mg Capsule.) 40 mg PO DAILY@0630 [facility] Last Admin: 05/22/24 05:36 Dose: 40 mg Documented By: URIEL Omeprazole (Omeprazole 40 Mg Capsule.) 40 mg PO DAILY@0630 [facility] Ondansetron HCl (Ondansetron Hcl 4 Mg/2 Ml Vial) 4 mg IVPUSH Q8H PRN PRN Reason: Nausea and Vomiting Oxycodone HCl (Oxycodone Hcl Immed Release 5 Mg Tablet) 20 mg PO Q4H PRN PRN Reason: Pain, Severe (Pain Scale 7-10) Last Admin: 05/22/24 12:42 Dose: 20 mg Documented By: TY Prednisone (Prednisone 5 Mg Tablet) 5 mg PO DAILY PRN PRN Reason: arthritis pain Pregabalin (Pregabalin 200 Mg Capsule) 200 mg PO BID [facility] Last Admin: 05/22/24 08:59 Dose: 200 mg Documented By: TY Sodium Chloride (0.9 % Sodium Chloride Flush 3 Ml Syringe) 3 ml IVFLUSH QSHIFT [facility] Last Admin: 05/22/24 07:43 Dose: Not Given Documented By: TY Non-Admin Reason: Patient Asleep Labs 05/21/24 11:26 05/22/24 08:39 Labs: Laboratory Results - last 24 hr 05/21/24 05/22/24 15:21 08:39 Anion Gap 16 Estim Creat Clear Calc 52.3 Estimated GFR 45 Random Glucose 134 H Calcium 9.1 Magnesium 2.5 Total Bilirubin 0.5 Direct Bilirubin 0.3 AST 48 H ALT 129 H Alkaline Phosphatase 167 H Total Protein 8.2 H Albumin 3.5 Urine Opiates Screen POSITIVE H Ur Buprenorphine Scrn Not Detected Ur Oxycodone Screen Positive H Urine Methadone Screen Not Detected Urine Fentanyl Screen Not Detected Ur Barbiturates Screen Not Detected Ur Phencyclidine Scrn Not Detected Ur Amphetamines Screen Not Detected U Benzodiazepines Scrn Not Detected Urine Cocaine Screen Not Detected U Marijuana (THC) Screen Not Detected Microbiology Microbiology Results: Microbiology 05/21/24 11:39 Blood Culture - Preliminary Blood - Venous No growth after 24 hours. 05/21/24 11:26 Blood Culture - Preliminary Blood - Venous No growth after 24 hours. 05/21/24 15:36 Urine Culture - Preliminary Urine clean catch - Clean Catch Midstream Culture in progress. Assessment and Plan (1) Peripheral artery disease: Status: Acute (2) Lower extremity weakness: Status: Acute Plan 73yo F with HTN, COPD, RA on prednisone + MTX, hypothyroidism, chronic R tibila plateau fracture with TKA, fibromyalgia, mood disorder, and hx ESBL UTI recently admitted here after a fall presented to [facility] today due to bilateral lower extremity weakness unable to stand and pivot, chronically wheelchair- bound, noted to have hypoxia and expiratory wheeze chest x-ray suggestive of CHF with stable BNP, no worsening leg edema no PND or orthopnea, will be admitted to telemetry unit for continued monitoring and treatment, no prior history of CHF noted. Bilateral lower extremity weakness with history of rheumatoid arthritis steroid dependent PT recommend home with services Chronic wheelchair-bound Likely due to worsening underlying RA disease Acute on chronic hypoxic respiratory failure due to worsening underlying rheumatoid lung disease /COPD Received IV steroids and IV Lasix in ED Influenza/RSV and SARS COVID negative No shortness of breath, no wheeze, no further treatment needed, likely initial wheeze due to underlying rheumatoid lung disease no acute COPD exacerbation echocardiogram showed EF 60-65%, no wall motion abnormalities, abnormal diastolic function, left atrium is likely dilated, intra-atrial shunt can not be excluded by color Doppler, right atrium is likely dilated. Elevated Liver enzymes no abdominal pain, no nausea vomiting likely due to methotrexate/cymbalta/wellbutrin , hepatitis serology ordered, LFTs trending down mild acute hyponatremia and hyperkalemia, resolved Mild hypermagnesemia resolved repeat magnesium 2.5. Chronic pain secondary to RA continue home medications oxycodone ,lyrica hold ibuprofen Chronic lymphedema left greater than right leg Peripheral arterial disease abnormal arterial ultrasound of lower extremity , seen by vascular surgery they recommend outpatient follow-up with the primary [facility] color surgeon. Hypertension continue atenolol Hypothyroidism continue Synthroid mood disorder continue home meds class 1 obesity recommend low-calorie diet PT recommend home with services DVT prophylaxis with Lovenox Full code In my clinical judgment patient required continued inpatient hospitalization for management of lower extremity weakness, and safe disposition Quality Stroke Does the patient have a stroke diagnosis?: No VTE Prior VTE?: No VTE Risk Level:: Medical - moderate - high VTE Device Contraindication: Treatment Not Indicated VTE Drug Contraindication: N/A - Med Ordered
[2024-05-22] MEDS: Enoxaparin Sodium 40 MG/0.4 ML SYRINGE SUBCUT (17:26)
[2024-05-22] MEDS: methylPREDNISolone Sod Succ 40 MG/ML VIAL 20 MG IVPUSH (17:26)
--- NOTE | 2024-05-22 19:50 | MHC.EDTECH ---
This tech took over care of patient at 1900,rounded and introduced self to patient,patient appears comfortable,call phillips in reach
[2024-05-22] MEDS: Doxazosin Mesylate 2 MG TABLET PO (21:43)
--- NOTE | 2024-05-22 22:05 | MHC.EDTECH ---
Patient got up to commode with minimal assist, patient has a steady gait, urinated a large amount.
[2024-05-22] MEDS: Melatonin 3 MG TABLET 6 MG PO (22:54)
[2024-05-23] VITALS (7 sets, daily range): BP systolic 152–194; BP diastolic 73–90; PULSE 61–72; RESP 14–19; TEMP 36–36.8; O2SAT 95–96
--- NOTE | 2024-05-23 02:16 | MHC.EDTECH ---
Patient rang the call phillips, asked for a sandwich and milk, pt was given a turkey sandwich,2 cheese sticks and a carton of milk, vitals taken,pt appears comfortable call phillips in reach
[2024-05-23] MEDS: 0.9 % Sodium Chloride Flush 3 ML SYRINGE IVFLUSH ×2 (02:57→08:20)
[2024-05-23] MEDS: oxyCODONE HCl Immed Release 5 MG TABLET 20 MG PO ×4 (02:57→17:56)
[2024-05-23] MEDS: methylPREDNISolone Sod Succ 40 MG/ML VIAL 20 MG IVPUSH (04:44)
[2024-05-23] MEDS: Omeprazole 40 MG CAPSULE.DR PO (06:27)
[2024-05-23] MEDS: Levothyroxine Sodium 50 MCG TABLET PO (06:27)
[2024-05-23] MEDS: DULoxetine HCl 60 MG CAPSULE.DR PO (08:17)
[2024-05-23] MEDS: Pregabalin 200 MG CAPSULE PO (08:17)
[2024-05-23] MEDS: buPROPion HCl XL 300 MG TAB.ER.24H PO (08:17)
[2024-05-23] MEDS: buPROPion HCl XL 150 MG TAB.ER.24H PO (08:18)
[2024-05-23] MEDS: Furosemide 20 MG TABLET PO (08:18)
[2024-05-23] MEDS: atenoloL 25 MG TABLET PO (08:18)
[2024-05-23] MEDS: Folic Acid 1 MG TABLET 2 MG PO (08:18)
[2024-05-23 08:32] LABS: HBS Num1 1.21 mIU/mL (0-7.99); HBc Num1 0.32 S/CO (0.00-0.79); HBsAGNum1 0.42 S/CO (0.00-0.99); Hepatitis A Antibody IgM 0.19 Index (0-0.79); Hepatitis B Core Antibody Nonreactive (Nonreactive); Hepatitis B Surface Antigen Negative (Negative); ~HepC Num1 0.11 S/CO (0.00-0.79); ~Hepatitis A Antibody IgM Nonreactive (Nonreactive); ~Hepatitis B Surface Antibody NONREACTIVE (Nonreactive); ~Hepatitis C Antibody Nonreactive (Nonreactive)
--- NOTE | 2024-05-23 09:42 | MHC.CM.PN ---
PT is recommending home with services; CM will follow.
--- NOTE | 2024-05-23 12:54 | P.DS_ITS ---
DS: Providers Provider Date of Service: 05/23/24 Date of admission: 05/21/24 16:57 Date of discharge: 05/23/24 Primary care physician: Namita Acosta NP Consults: 05/22/24 08:06 Consult to Vascular Surgery Routine Consulting Provider[place] [facility] Reason for consultation: abnormal arterial us Has provider been notified: No DS: Diagnosis Discharge Diagnosis (1) Peripheral artery disease: Status: Acute (2) Lower extremity weakness: Status: Acute DS: Summary Hospital Course Hospital Course: History of presenting illness: Date of Service: 05/21/24 Chief Complaint: Lower extremity weakness unable to stand and pivot/mild shortness of breath 74-year-old female patient with past medical history significant for hypert ension, COPD, rheumatoid arthritis on prednisone past methotrexate, hypothyroidism mood disorder, chronic right tibial blood low fracture with TKA, fibromyalgia, recurrent history of ESBL UTI, discharged from [facility] in 03/15/2024 after diagnosed to have minimally displaced subcortical/periprosthetic fracture of the medial metaphysis of the femur, patient presented to [facility] today due to symptoms of bilateral lower extremity weakness unable to stand up and pivot felt no strength in leg denies any fall, on her way EMS noted that patient has bilateral expiratory wheeze, workup in the emergency room showed sodium 134, potassium 5.2, chloride 106 bicarb 18, BUN 28 creatinine 1.36 at baseline blood sugar 121, magnesium 2.7, BNP 97 at baseline, troponin 9.6, chest x-ray showed pulmonary edema, bilateral effusions small to moderate, ED physician noted bilateral lower extremity swelling,toe redness therefore Doppler study obtained that showed no DVT, duplex arterial scan showed aortoiliac disease proximal, patient treated in the emergency room with 1 dose of IV Lasix, IV magnesium, IV Solu Medrol, DuoNeb at present patient denies significant shortness of breath, denies cough, no PND, no orthopnea, denies worsening peripheral edema, patient on chronic home O2 3 L at night and with naps at present on 2 L of oxygen with stable oxygenation 96%. On arrival patient noted to have hypoxia with finger oximetry 88% , Patient is now being admitted to [facility] due to acute hypoxic respiratory failure likely due to mild exacerbation of chronic lung disease due to rheumatoid arthritis, and bilateral lower extremity weakness, has chronic lung changes due to rheumatoid arthritis. Hospital course: 73yo F with HTN, COPD, RA on prednisone + MTX, hypothyroidism, chronic R tibila plateau fracture with TKA, fibromyalgia, mood disorder, and hx ESBL UTI recently admitted here after a fall presented to [facility] today due to bilateral lower extremity weakness unable to stand and pivot, chronically wheelchair- bound, noted to have hypoxia and expiratory wheeze chest x-ray suggestive of CHF with stable BNP, no worsening leg edema no PND or orthopnea, will be admitted to telemetry unit for continued monitoring and treatment, no prior history of CHF noted. Bilateral lower extremity weakness with history of rheumatoid arthritis steroid dependent, most likely related to using lower dose of prednisone and Lyrica, recommend to use medications as prescribed by Rheumatology seen by PT they recommend home with services Acute on chronic hypoxic respiratory failure due to worsening underlying rheumatoid lung disease /COPD, had transient hypoxia now resolved, no acute CHF or COPD exacerbation noted, recommend to continue 3 L of oxygen at night and during naps, Influenza/RSV and SARS COVID negative, echocardiogram showed EF 60- 65%, no wall motion abnormalities, abnormal diastolic function, left atrium is likely dilated, intra-atrial shunt can not be excluded by color Doppler, right atrium is likely dilated, no further workup indicated. Elevated Liver enzymes no abdominal pain, no nausea vomiting likely due to methotrexate/cymbalta/wellbutrin , hepatitis serology negative, LFTs trending down, recommend outpatient follow-up mild acute hyponatremia and hyperkalemia, resolved Mild hypermagnesemia resolved repeat magnesium 2.5. Chronic pain secondary to RA continue home medications oxycodone ,lyrica and ibuprofen. Chronic lymphedema left greater than right leg stable. Peripheral arterial disease abnormal arterial ultrasound of lower extremity , seen by vascular surgery they recommend outpatient follow-up with the primary [facility] color surgeon. Hypertension continue atenolol Hypothyroidism continue Synthroid mood disorder continue home meds class 1 obesity recommend low-calorie diet Time Attestation Discharge Coordination Time (in mins): 40 Quality: Safe Use of Opioids Does Pt have an Active Cancer Diagnosis on the Problem List?: No Quality: Stroke Does the patient have a stroke diagnosis?: No Physical Exam Vital Signs: Vital Signs: Last Vital Signs Temp 96.8 F 05/23/24 11:28 Pulse 61 05/23/24 11:28 Resp 16 05/23/24 11:28 BP 152/86 H 05/23/24 11:28 Pulse Ox 96 05/23/24 11:28 O2 Del Method Room Air 05/23/24 11:28 O2 Flow Rate 2 05/22/24 06:15 BMI result Body Mass Index 33.9 Const: Other: General resting comfortably in no acute distress. Anicteric sclera Neck no JVD. CVS regular rate rhythm, Respiratory lungs clear to auscultation , no respiratory distress, no wheeze Gastrointestinal abdomen soft, non tender, bowel sounds audible,. Extremities bilateral lymphedema left greater than right/chronic redness of plantar foot and toes due to rheumatoid arthritis Right hand deformity due to rheumatoid arthritis Neuro non focal Psych appropriate affect DS: Data Data Completed and Pending Completed studies during hospitalization [Text1]: Procedures Insertion of Infusion Device into Right Cephalic Vein, Percutaneous Approach (10/13/23) Labs on day of discharge: Laboratory Results - last 24 hr 05/22/24 16:41 Hepatitis A IgM Ab Nonreactive Hep Bs Antigen Negative Hep Bs Antibody NONREACTIVE Hep B Core Total Ab Nonreactive Hepatitis C Ab (EIA) Nonreactive Preliminary micro results at discharge 05/21/24 15:36 Urine Culture - Preliminary Urine clean catch - Clean Catch Midstream Gram negative altaf 05/21/24 11:39 Blood Culture - Preliminary Blood - Venous No growth after 24 hours. 05/21/24 11:26 Blood Culture - Preliminary Blood - Venous No growth after 24 hours. Discharge Plan Discharge Anticipated Discharge Date/Time: 05/23/24 12:45 Patient Disposition: Home Health Service Discharge Diagnosis: Bilateral lower extremity weakness Referrals: Namita Acosta NP [Primary Care Provider] - 1 Week Discharge Medications: Continued omeprazole 40 mg capsule,delayed release(DR/EC) 40 mg PO DAILY@0630 methotrexate sodium 2.5 mg tablet 10 tab PO MO Patient Comments: Patient reports last taken Friday 05/19 prednisone 1 mg tablet 4 mg PO DAILY levothyroxine 50 mcg tablet 50 mcg PO DAILY@0630 bupropion HCl 300 mg tablet extended release 24 hr 300 mg PO DAILY@0900 duloxetine 60 mg capsule,delayed release(DR/EC) 60 mg PO DAILY ondansetron 4 mg tablet,disintegrating 4 mg PO Q8H PRN (Reason: nausea and vomiting) Qty: 10 0RF folic acid 1 mg tablet 2 mg PO DAILY atenolol 25 mg Tablet 25 mg PO DAILY Qty: 30 0RF Protocol: Hold for SBP/HR < HOLD for SBP < : 90 HOLD for HR < : 60 doxazosin 2 mg Tablet 2 mg PO BEDTIME Qty: 30 0RF Protocol: Hold for SBP< HOLD for SBP < : 90 furosemide 20 mg tablet 20 mg PO DAILY Qty: 30 0RF bupropion HCl 150 mg tablet extended release 24 hr 150 mg PO DAILY@0900 multivitamin Tablet 1 tab PO DAILY ibuprofen 200 mg Tablet 600 mg PO Q6H PRN (Reason: Pain) vitamin B complex Capsule 1 cap PO DAILY melatonin 10 mg Tablet 10 mg PO BEDTIME PRN (Reason: Sleep) biotin 5,000 mcg Tablet, Sublingual 5,000 mcg SUBLINGUAL DAILY bisacodyl 5 mg Tablet,Delayed Release (Dr/Ec) 5 mg PO DAILY PRN (Reason: Constipation) cholecalciferol (vitamin D3) [Vitamin D3] 25 mcg (1,000 unit) Capsule 25 mcg PO DAILY pregabalin 200 mg capsule 200 mg PO BID oxycodone 20 mg tablet 20 mg PO Q4H PRN (Reason: pain (scale score 7-10)) Qty: 20 0RF acetaminophen [Tylenol] 325 mg Tablet 650 mg PO Q4H PRN (Reason: Moderate Pain (Scale Score 5-6)) lidocaine HCl 4 % Adhesive Patch,Medicated 1 patch TOPICAL DAILY PRN (Reason: Pain) prednisone 5 mg tablet 5 mg PO DAILY PRN (Reason: arthritis pain) Discharge Orders: Discharge Order (Routine); Ordered 05/23/24 Ordered By: Ortiz Blevins Diet: Advance to usual diet Activity on Discharge: As tolerated Stand Alone Forms: Patient Portal Discharge page Print Language: Romanian Care Plan Goals: Bilateral lower extremity weakness likely due to rheumatoid arthritis Chronic lung disease due to RA Being discharged home with PT services Health Concerns: Take all home medications as before Plan of Treatment: Outpatient follow-up with primary care physician Outpatient follow-up with Rheumatology Assessment: As above
--- NOTE | 2024-05-23 14:09 | P.F2F_ITS ---
Service Date Service Date: 05/23/24 Encounter Date of encounter: 05/23/24 Reasons for Services Signs and symptoms assessed: Chronic bilateral lower extremity weakness/able to stand and pivot at baseline,/wheelchair-bound/chronic pain Reason for intermediate: medication management and teach disease management Reason for physical therapy: home safety and mobility Homebound: Leaving the home is medically contraindicated at this time without the asist of a device and/or another person due th the listed conditions above and below. Reason homebound: leg weakness Certification: Based on the above findings, I certify that this patient is confined to the home and needs intermittent intermediate care, physical therapy and/or speech therapy, or continues to need occupational therapy. The patient is under my care, and I have initiated the establishment of the plan of care. The patient will be followed by a physician who will periodically review the plan of care. Time Spent With Patient Time: Total time managing care of this patient today ____ minutes.
== END 2024-05-23 18:18 | disposition home health service (06) | DRG 190 ==
LOC: HO.ED 16:19 → HO.EDOVER 17:06 → HO.IMC 05-23 07:50
PROVIDERS: Admitting Provider Hospitalist; Emergency Provider Emergency Medicine; PCP Nurse Practitioner Adult Health; Visit Provider Hospitalist
DX: J44.1 Chronic obstructive pulmonary disease with (acute) exacerbation (principal); J96.21 Acute and chronic respiratory failure with hypoxia; E87.1 Hypo-osmolality and hyponatremia; E03.9 Hypothyroidism, unspecified; M05.10 Rheumatoid lung disease with rheumatoid arthritis of unspecified site; E66.811 Obesity, class 1; Z68.33 Body mass index [BMI] 33.0-33.9, adult; I73.9 Peripheral vascular disease, unspecified; E87.5 Hyperkalemia; E83.41 Hypermagnesemia; I89.0 Lymphedema, not elsewhere classified; Z71.3 Dietary counseling and surveillance; Z20.822 Contact with and (suspected) exposure to COVID-19; Z99.81 Dependence on supplemental oxygen; Z99.3 Dependence on wheelchair; Z87.891 Personal history of nicotine dependence; Z87.440 Personal history of urinary (tract) infections; Z79.52 Long term (current) use of systemic steroids; Z79.631 Long term (current) use of antimetabolite agent; Z79.890 Hormone replacement therapy; Z79.899 Other long term (current) drug therapy
CPT/HCPCS: 0241U; 36415; 71045; 80048; 80053; 80076; 80307; 81001; 82248; 82803; 83605; 83690; 83735; 83880; 84484; 85025; 86704; 86706; 86709; 86803; 87040; 87086; 87088; 87186; 87340; 93005; 93306; 93925; 93970; 94640; 97162; 99222; 99285; J0696; J1650; J1940; J2919; J3475; Q9957

== ENCOUNTER → 2024-05-21 11:25 | Outpatient (BNV) | payer MEDICARE, MEDICAID, SELFPAY | PROVIDERS: Emergency Provider Emergency Medicine; Visit Provider Internal Medicine | DX: R06.02 Shortness of breath (principal); R94.31 Abnormal electrocardiogram [ECG] [EKG] | CPT/HCPCS: 93010 ==

== ENCOUNTER → 2024-05-21 12:05 | Outpatient (BNV) | payer MEDICARE, MEDICAID, SELFPAY | PROVIDERS: Emergency Provider Emergency Medicine; Visit Provider Radiology Diagnostic Radiology | DX: R60.0 Localized edema (principal); I70.202 Unspecified atherosclerosis of native arteries of extremities, left leg; R06.02 Shortness of breath | CPT/HCPCS: 71045; 93925; 93970 ==

== ENCOUNTER 2024-05-21 16:57 | Outpatient (BNV) | payer MEDICARE, MEDICAID, SELFPAY | END 2024-05-22 07:00 | PROVIDERS: Admitting Provider Hospitalist; Emergency Provider Emergency Medicine; Visit Provider Internal Medicine Cardiovascular Disease | DX: I35.0 Nonrheumatic aortic (valve) stenosis (principal) | CPT/HCPCS: 93306 ==

== ENCOUNTER → 2024-05-21 16:57 | Outpatient (BNV) | payer MEDICARE, MEDICAID, SELFPAY | PROVIDERS: Admitting Provider Hospitalist; Emergency Provider Emergency Medicine; Visit Provider Physician Assistant Surgical | DX: I73.9 Peripheral vascular disease, unspecified (principal) | CPT/HCPCS: 99222 ==

== ENCOUNTER → 2024-05-21 16:57 | Outpatient (BNV) | payer MEDICARE, MEDICAID, SELFPAY | PROVIDERS: Admitting Provider Hospitalist; Emergency Provider Emergency Medicine; Visit Provider Hospitalist | DX: J44.1 Chronic obstructive pulmonary disease with (acute) exacerbation (principal); R29.898 Other symptoms and signs involving the musculoskeletal system | CPT/HCPCS: 99223 ==

== ENCOUNTER 2024-06-26 10:33 | Emergency (ER) | payer MEDICARE, MEDICAID, SELFPAY ==
[2024-06-26] VITALS (8 sets, daily range): BP systolic 109–142; BP diastolic 51–64; PULSE 79–103; RESP 14–19; TEMP 36.7–38.5; O2SAT 91–99; BMI 35.2
--- NOTE | ~2024-06-26 | CT_ITS ---
EXAMINATION: CT HEAD WITHOUT CONTRAST CLINICAL INFORMATION: fall, head strike COMPARISON: May 02, 2024. TECHNIQUE: Contiguous axial imaging was performed from the skull base to vertex without intravenous administration of contrast. This CT examination was performed using dose optimization techniques as appropriate, variously including the following: *Automated exposure control *Adjustment of mA and/or kV according to patient size (this includes techniques or standardized protocols for targeted exams where dose is matched to indication/reason for exam; i.e. extremities or head) *Use of iterative reconstruction technique DLP: 685.3 mGy-cm FINDINGS: Bony calvarium is intact. Skull base is intact. No acute intracranial hemorrhage, mass effect, midline shift, hydrocephalus or herniation. Sellar/suprasellar region demonstrated no gross masses or focal hemorrhage. Craniocervical junction is intact. Posterior cranial fossa contents demonstrated negative cisterna magna. Prominence of the extra-axial CSF spaces cerebral sulci and ventricles likely central volume loss. Calcified plaques in the cavernous segments both ICAs. Polypoid mucosal thickening, maxillary sinuses and ethmoid air cells without air-fluid levels. Questionable dehiscence in the anterior medial aspect of the supraclinoid segments both ICA. Tympanic cavities and mastoid cells are aerated. Edentulous. No hematoma in the intraconal or extraconal compartments of the cranium. CT/CT head/brain wo IV con IMPRESSION: No acute fracture, bony calvarium. No acute intracranial hemorrhage. Global cerebral atrophy. Electronically signed by: George Low MD 06/26/2024 12:11 PM EDT
--- NOTE | ~2024-06-26 | CT_ITS ---
EXAMINATION: CT ABDOMEN PELVIS WITH IV CONTRAST, CT CHEST WITH IV CONTRAST INDICATION: abd pain, nausea, vomiting, fall COMPARISON: Comparison is made with the prior chest CT dated 08/23/[address] of the abdomen and pelvis dated 11/24/2023.. TECHNIQUE: CT scan of the chest, abdomen and pelvis was performed following administration of 85 mL Omnipaque 350 using standard departmental protocol. Coronal and sagittal reformatted images were generated and reviewed. Oral contrast material was not administered at the request of the referring physician. This CT exam was performed with one or more of the following dose reduction techniques: automated exposure control, adjustment of the mA and/or kV according to patient size, use of iterative reconstruction technique. DLP: 1759 mGy-cm CHEST: THYROID: The thyroid is unremarkable. LUNGS: There is moderate respiratory motion artifact. There is dependent atelectasis bilaterally. MEDIASTINUM: There is no mediastinal lymphadenopathy. CHARAN: There is no hilar lymphadenopathy. CARDIOVASCULATURE: The heart is enlarged. There is no pericardial effusion. The thoracic aorta demonstrates moderate atherosclerotic irregularity, but is normal in caliber. The diameter of the main pulmonary artery is greater than that of the adjacent ascending thoracic aorta, compatible with pulmonary arterial hypertension. DEGREE OF CORONARY CALCIFICATION: moderate PLEURA: There is no pleural effusion. No pneumothorax. MAIN AIRWAYS: The mainstem bronchi and proximal branches are patent. AXILLA: There is no axillary lymphadenopathy. SOFT TISSUES: Unremarkable. BONES: There is degenerative disc disease of the spine. There are multiple old right rib fractures. However, there is buckling of the lateral aspects of the right 7th and 8th ribs, suspicious for nondisplaced fractures. ABDOMEN: LIVER: The liver is normal in size and contour. There is an linear hypodensity in the left lobe of the liver dome which likely represents a cyst but is difficult to characterize. The hepatic and portal veins are patent. GALLBLADDER / BILE DUCTS: The gallbladder is unremarkable. There is no intra or extrahepatic biliary ductal dilatation. SPLEEN: The spleen is normal in size. No focal splenic lesion is identified. PANCREAS: The pancreas is unremarkable in appearance. ADRENAL GLANDS: The right adrenal gland is unremarkable. Again seen is a 1.6 cm left adrenal nodule. KIDNEYS/RETROPERITONEUM: No renal calculi are identified. There is no hydronephrosis. There are bilateral renal cysts measuring up to 2.4 cm on the right and 2.6 cm on the left. In addition, there are 2 hyperdense masses at the lower pole of the right kidney measuring 1.6 and 1.4 cm in size, as seen previously. The left kidney is markedly atrophic. LYMPH NODES: No abdominal or pelvic lymphadenopathy. VASCULATURE: Again seen is marked atherosclerotic irregularity of the abdominal aorta. There is greater mural thrombus within the aorta than on the prior study. There is mild soft tissue infiltration anterior to the aorta at the level of the origin of the BLADIMIR. There is poor contrast opacification of the BLADIMIR when compared to the celiac axis and SMA. 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 MESENTERY/PERITONEUM: No free fluid. No masses. There is no free intraperitoneal gas. STOMACH: The stomach is unremarkable. SMALL BOWEL: The small bowel is normal in caliber. There is no abnormal bowel wall thickening or pneumatosis. COLON: There is a large amount of stool throughout the colon. There is no abnormal bowel wall thickening or pneumatosis. APPENDIX: Normal. URINARY BLADDER/PELVIC ORGANS: The urinary bladder is unremarkable. The uterus is unremarkable. BONES / SOFT TISSUES: There is degenerative disc disease of the spine. There is a moderate compression deformity involving the superior endplate of T12 which is new since 08/02/2023, but of indeterminate age. CT/CT abdomen pelvis w IV con IMPRESSION: 1. Probable nondisplaced fractures of the right 7th and 8th ribs. 2. Linear hypodensity in the left lobe of the liver without associated perihepatic fluid or ascites. As this is new from the prior study and there is a history of trauma, a liver laceration cannot be excluded. 3. Greater mural thrombus in the abdominal aorta than on prior studies. Haziness anterior to the aorta in the region of the BLADIMIR with poor I am nail opacification. 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 4. These findings were discussed with DILIP Landin in the emergency room on 06/26/2024 at 1:36 PM. Electronically signed by: Phoenix Santos MD 06/26/2024 01:38 PM EDT
--- NOTE | ~2024-06-26 | CT_ITS ---
EXAMINATION: CT CERVICAL SPINE WITHOUT CONTRAST CLINICAL INFORMATION: Status post fall. COMPARISON: None available. TECHNIQUE: Contiguous axial images through the cervical spine using 3 mm collimation with bone and soft tissue algorithm. Sagittal and coronal reformatted images acquired. This CT examination was performed using dose optimization techniques as appropriate, variously including the following: *Automated exposure control *Adjustment of mA and/or kV according to patient size (this includes techniques or standardized protocols for targeted exams where dose is matched to indication/reason for exam; i.e. extremities or head) *Use of iterative reconstruction technique. DLP: 1167.94 mGy centimeter. FINDINGS: Patient's motion artifact. Degenerative changes in the periodontal C1 region. Sclerosis subchondral cyst formation and marginal osteophyte formation and decreased intervertebral disc height at C5-6 and to a lesser extent C6-7. Focal blastic lesion in the anterior aspect of C4. Grade 1 anterolisthesis C4-5 and C7-T1. Reverse curvature apex at C5-C6. Facet joint hypertrophy C2-3-2 C6-7. C1 is intact. C2 is intact. Right facet joint hypertrophy. C3 is intact. Right facet joint hypertrophy. C4 is grossly intact. Bilateral facet joint hypertrophy. C5 is grossly intact. Right facet joint hypertrophy. C6 is grossly intact. Right facet joint hypertrophy. C7 is grossly intact. No prevertebral compartment hematoma. Retropharyngeal trajectory both carotid arteries. Central spinal canal stenosis on a degenerative basis at C5-6 and C6-[address]/CT cervical spine wo IV con IMPRESSION: Patient's motion artifact. Multilevel cervical spondylosis more conspicuous at C5-6 and C6-7 levels without acute fracture or trauma-related listhesis. Stable. Fleischner guidelines were followed. Electronically signed by: George Low MD 06/26/2024 12:20 PM EDT
--- NOTE | 2024-06-26 10:37 | ED_ITS ---
HPI - General Adult General Chief complaint: General Medical Stated complaint: FALL, ?LOC Time Seen by Provider: 06/26/24 10:36 Source: patient and EMS Mode of arrival: EMS Limitations: altered mental status History of Present Illness ED Provider: Daniela Lentz PA-C HPI narrative: Patient is a 74 year old assigned female at with a history of HTN, COPD for which she uses 3 liters of oxygen at night, RA on pred + methotrexate, mood disorder, and fibromyalgia presenting to the emergency department today with after being found down. Patient states that she was feeling unwell yesterday and threw up multiple times but she is not sure how she ended up on the ground. EMS states that the patient was found covered in vomit on the ground and life alert went off and signaled them to come. Patient is somewhat lethargic and not able to answer any other questions at this time. Related Data Home Medications ?Medication ?Instructions ?Recorded ?Confirmed bupropion HCl 300 mg 24 hr tablet, 300 mg PO DAILY@0900 08/23/21 05/21/24 extended release duloxetine 60 mg capsule,delayed 60 mg PO DAILY 08/23/21 05/21/24 release levothyroxine 50 mcg tablet 50 mcg PO DAILY@62908/23/21 05/21/24 methotrexate sodium 2.5 mg tablet 10 tab PO MO 08/23/21 05/21/24 omeprazole 40 mg capsule,delayed 40 mg PO DAILY@62908/23/21 05/21/24 release prednisone 1 mg tablet 4 mg PO DAILY 08/23/21 05/21/24 prednisone 5 mg tablet 5 mg PO DAILY PRN arthritis pain 02/16/22 05/21/24 pregabalin 200 mg capsule 200 mg PO BID 01/07/23 05/21/24 folic acid 1 mg tablet 2 mg PO DAILY 10/13/23 05/21/24 bupropion HCl 150 mg 24 hr tablet, 150 mg PO DAILY@0911/25/23 05/21/24 extended release acetaminophen 325 mg tablet 650 mg PO Q4H PRN Moderate Pain 03/04/24 05/21/24 (Tylenol) (Scale Score 5-6) lidocaine HCl 4 % topical patch 1 patch topical DAILY PRN Pain 03/04/24 05/21/24 biotin 5,000 mcg sublingual tablet 5,000 mcg sublingual DAILY 05/03/24 05/21/24 ibuprofen 200 mg tablet 600 mg PO Q6H PRN Pain 05/03/24 05/21/24 melatonin 10 mg tablet 10 mg PO BEDTIME PRN Sleep 05/03/24 05/21/24 multivitamin 1 tab PO DAILY 05/03/24 05/21/24 vitamin B complex 1 cap PO DAILY 05/03/24 05/21/24 bisacodyl 5 mg tablet,delayed 5 mg PO DAILY PRN Constipation 05/21/24 05/21/24 release cholecalciferol (vitamin D3) 25 25 mcg PO DAILY 05/21/24 05/21/24 mcg (1,000 unit) capsule (Vitamin D3) Previous Rx's ?Medication ?Instructions ?Recorded ondansetron 4 mg disintegrating 4 mg PO Q8H PRN nausea and 08/02/23 tablet vomiting #10 tabs atenolol 25 mg tablet 25 mg PO DAILY #30 tabs 10/17/23 doxazosin 2 mg tablet 2 mg PO BEDTIME #30 tabs 10/17/23 furosemide 20 mg tablet 20 mg PO DAILY #30 tabs 10/17/23 oxycodone 20 mg tablet 20 mg PO Q4H PRN pain (scale score 02/27/24 7-10) #20 tabs Allergies Allergy/AdvReac Type Severity Reaction Status Date / Time lisinopril [LISINOPRIL] Allergy Severe ANAPHYLAXIS Verified 06/26/24 10:54 Sulfa (Sulfonamide Allergy Intermediate RASH Verified 06/26/24 10:54 Antibiotics) [SULFA (SULFONAMIDE ANTIBIOTICS)] tramadol [TRAMADOL] Allergy Intermediate RASH Verified 06/26/24 10:54 Ivdyyzg-AJD-AwU Reductase Allergy Rash Verified 06/26/24 10:54 Inhibitor [Evvqgbn-Uhw-Ufw Reductase Inhibitor] hydrochlorothiazide [HCTZ] AdvReac Unknown ABNORMAL Verified 06/26/24 10:54 LABS? Review of Systems 2 Review of Systems: Yes Other (patient lethargic - answers intermittently) Constitutional: Constitutional: Reports no additional constitutional complaints, Denies chills, Denies fever(s), Denies night sweats and Reports weakness Eyes: Eyes: Reports no additional eye complaints, Denies blurry vision, Denies change in vision, Denies diplopia, Denies eye discharge, Denies loss of vision and Denies eye pain ENT: Denies dizziness Cardiovascular: Cardiovascular: Reports no additional cardiovascular complaints, Denies chest pain, Reports syncope (possible), Denies lightheadedness, Denies Loss of Consciousness and Denies dyspnea Respiratory: Respiratory: Reports no additional respiratory complaints and Denies dyspnea Gastrointestinal: Gastrointestinal: Reports no additional gastrointestinal complaints, Reports abdominal pain, Denies melena, Denies hematochezia, Denies change in bowel habits, Denies change in stool character, Reports nausea and Reports vomiting Genitourinary: Genitourinary: Denies hematuria, Denies urinary frequency, Denies dysuria, Denies urinary incontinence, Denies urinary hesitancy and Denies urinary urgency Musculoskeletal: Musculoskeletal: Reports no additional musculoskeletal complaints, Denies numbness and Denies tingling Neurologic: Denies dizziness, Reports syncope (possible), Denies loss of vision, Denies numbness, Denies tingling and Reports weakness Psychiatric: Psychiatric: Reports no additional psychiatric complaints Endocrine: Endocrine: Reports no additional endocrine complaints Hematologic/Lymphatic: Hematologic/Lymphatic: Reports no additional hematologic/lymphatic complaints Allergic/Immunologic: Allergic/Immunologic: Reports no additional allergic/immunologic complaints [facility] Past Medical History Attestation statement: The following information was validated with the patient. Source: old records reviewed and nursing notes reviewed Medical History Bacteriuria Urinary tract infection due to extended-spectrum beta lactamase (ESBL) producing Escherichia coli History of ESBL E. coli infection Osteomyelitis COPD (chronic obstructive pulmonary disease) Rheumatoid lung Hypothyroidism Congestive heart failure Fibromyalgia HTN (hypertension) Depression Rheumatoid arthritis Surgical History Hx of prior ablation treatment Knee joint replacement status Family History Family History Father No problems noted. Other Heart disease Social History Social History Household Members: None Household Members Other:: 0 Housing: House Do you presently have visiting nurse or other home services: Yes Unable to assess alcohol history related to: Unable to respond Alcohol intake: never Patient Tobacco Use Status: Former Tobacco user Tobacco use type: Cigarette e-Cigarette/Vaping Use: Never Used Second Hand Smoke Exposure: No Use of substances other than those prescribed or required for medical reasons: Unable to respond Advance Directives: Yes Advance Directives on File: Yes Advance Directives Date on File: 09/29/23 Do you have a plan to hurt others: No Plan service: No Physical Exam ED Vital Signs: Vital Signs - 24 hr 06/26/24 10:48 06/26/24 11:00 06/26/24 11:29 Temperature 101.3 F H Pulse Rate 91 87 Respiratory Rate 19 16 Blood Pressure 111/51 L 114/52 L Pulse Oximetry 99 Oxygen Delivery Method Nasal Cannula Oxygen Flow Rate 06/26/24 12:22 06/26/24 13:17 06/26/24 14:07 Temperature 99.7 F 98.2 F Pulse Rate 89 82 82 Respiratory Rate 14 14 Blood Pressure 113/59 L 109/53 L 112/55 L Pulse Oximetry 99 98 Oxygen Delivery Method Nasal Cannula Nasal Cannula Oxygen Flow Rate 3 3 BMI result Body Mass Index 35.2 Const General: cooperative, no acute distress, alert and awake Nutritional Appearance: well nourished Orientation/consciousness: oriented to person and oriented to place Limitations: no limitations HENMT Head: Yes normal to inspection and Yes atraumatic Ears: hearing grossly normal bilaterally and external ears normal General nose exam: Normal external nose present, no nasal discharge noted and no epistaxis Face and sinus: Yes normal facial exam, No abrasion and No laceration Mouth: Normal oral and palatal mucosa present, no drooling and no muffled voice Eyes General: appearance normal, both eyes and all related structures Periorbital: periorbital findings normal Eyelids: Yes eyelids normal Conjunctivae: conjunctivae normal Pupils: Equal, round and reactive pupils present EOM: EOMs intact bilaterally Neck Other: in a c-collar via EMS Neck: Yes normal visual inspection and Yes no lymphadenopathy Chest Chest palpation & inspection: normal inspection of the chest Resp Effort & Inspection: normal respiratory effort and able to speak in complete sentences GI Inspection: Yes normal to inspection Neuro General: oriented to person, oriented to place, moves all extremities and CN's II-XI intact bilaterally Cranial nerves: Yes Equal, round and reactive pupils present Extrem General: Yes normal to inspection, Yes full ROM and Yes capillary refill normal Psych Appearance: grossly normal Mental Status: mental status grossly normal Affect: normal affect Attitude: cooperative Thought process: Normal thought process present Thought content: Normal thought content present Insight: Good insight present (Psych) Medications Administered Discontinued Medications Generic Name Dose Route Start Last Admin Trade Name Samia PRN Reason Stop Dose Admin Ceftriaxone Sodium 1 gm 06/26/24 11:09 06/26/24 11:56 Ceftriaxone Sodium 1 Gm Vial IVPUSH 06/26/24 11:10 1 gm ONCE ONE Administration Ertapenem 1 gm 06/26/24 12:46 06/26/24 12:54 Ertapenem Sodium 1 Gm Vial IVPUSH 06/26/24 12:47 1 gm ONCE ONE Administration Acetaminophen 1,000 mg in 100 mls @ 400 mls/hr 06/26/24 11:09 06/26/24 11:58 Ofirmev IV 06/26/24 11:23 Infused ONCE ONE Infusion Albumin Human 100 mls @ 133.333 mls/hr 06/26/24 12:00 06/26/24 13:56 Kedbumin 25 % IV 06/26/24 13:44 Infused Q1H EUGENIO Infusion Iohexol 100 ml 06/26/24 11:49 06/26/24 11:49 Iohexol 350 Mg/Ml 100 Ml Infus..Btl IV 06/26/24 11:50 85 ml ONCE ONE Administration Ondansetron HCl 4 mg 06/26/24 10:40 06/26/24 11:19 Ondansetron Hcl 4 Mg/2 Ml Vial IVPUSH 06/26/24 10:41 4 mg ONCE ONE Administration Medical Decision Making Medical Decision Making MDM Narrative: Patient is a 74 year old assigned female at with a history of HTN, COPD for which she uses 3 liters of oxygen at night, RA on pred + methotrexate, mood disorder, and fibromyalgia presenting to the emergency department today with after being found down. Patient's physical exam showed a selectively responsive individual who was oriented to herself and place but not time or time surrounding event that brought her to the hospital. Patient was initially examined in a c-collar. Patient's blood work showed multiple abnormalities including a WBC count of 18.7 with a left shift and 12% bands, CR of 1.44, BUN 23, initial lactic 6.9 with a repeat of 41, total bili of 2.6, AST 295, ALT 140, alk phos 185, total CK 2136, initial trop 122.6 (likely demand response and not cardiac in nature), BNP 1942, and albumin 2.9. Patient's urine showed a possible UTI - given the patient's presentation and hx of ESBL urine - ertepenam given. Patient's EKG showed a longer QT segment when compared to previous but otherwise unremarkable. Patient's CT head and c-spine showed no acute process. Patient's c-collar removed, without incident. Patient's CT of the chest and abdomen/pelvis showed evidence of an BLADIMIR occlusion, right 7th and 8th rib fractures, and a possible liver laceration. Given the patient's clinical presentation and results - I called and spoke to Dr. Kelvin Lewis, the trauma surgeon from [facility] who recommended transfer of the patient to their ED. I explained my physical exam findings as well as all test results to the patient. I answered all questions asked by the patient. Patient to be transferred to [facility] ED. Differential Diagnosis Differential Diagnoses: The differential diagnosis associated with the presentation includes Ischemic bowel Sepsis Urosepsis Fall Nausea Vomiting Liver laceration Admission/Observation Consideration of admission/observation: Escalation of care including admission/observation considered Patient transferred to [facility] ED as noted in the MDM Rationale portion of this note. Consult Healthcare Provider Management of the patient was discussed with: Hvac Service Technician (spoke to Dr. Lewis as noted in the MDM Rationale portion of this note.) Lab Data [facility] Lab Attestation statement: I reviewed the patient's lab results. My interpretation of these results are in the MDM Rationale portion of this note. 06/26/24 11:14 06/26/24 11:14 Labs: Lab Results 06/26/24 06/26/24 06/26/24 Range/Units 10:51 11:14 11:23 WBC 18.7 H (4.8-10.8) X10*3/uL RBC 3.85 L (4.20-5.50) X10*6/uL Hgb 11.8 L (12.0-16.0) g/dl Hct 35.2 L (37.0-47.0) % MCV 91.4 (80.0-98.0) fL MCH 30.6 (27.0-33.0) pg MCHC 33.5 (31.0-35.0) g/dl RDW 15.8 (11.0-16.0) % Plt Count 178 D (160-400) X10*3/uL MPV 11.1 (9.4-12.3) fL Immature Gran % (Auto) Cancelled Neut % (Auto) Cancelled Lymph % (Auto) Cancelled [place] % (Auto) Cancelled Eos % (Auto) Cancelled Baso % (Auto) Cancelled Lymph # (Auto) Cancelled [place] # (Auto) Cancelled Eos # (Auto) Cancelled Baso # (Auto) Cancelled Abs Immat Gran (auto) Cancelled Absolute Neuts (auto) Cancelled Absolute Nucleated RBC 0.000 (0.0-0.012) X10*3/uL Nucleated RBC % (auto) 0.0 (0.0-0.2) /100WBC Neutrophils % (Manual) 80 H (45-73) % Band Neutrophils % 12 H (3-5) % Lymphocytes % (Manual) 2 L (20-40) % Monocytes % (Manual) 6 (2-11) % Abs Neuts (Manual) 17.2 H (2.0-8.3) X10*3/uL Lymphocytes # (Manual) 0.4 L (1.2-4.9) X10*3/uL Monocytes # (Manual) 1.1 (0.1-1.2) X10*3/uL Platelet Estimate NORMAL (NORMAL) Plt Morphology Comment NORMAL RBC Morphology NORMAL Smear Tech's Comments MANUAL DIFF VBG pH 7.35 (7.32-7.43) VBG pCO2 45 mmHg VBG pO2 33 mmHg VBG HCO3 25 (22-26) mmol/L VBG O2 Saturation 48.0 % VBG Base Excess -0.4 mmol/L Sodium 141 (135-145) mmol/L Potassium 3.3 D (3.3-5.1) mmol/L Chloride 103 (96-108) mmol/L Carbon Dioxide 23 (22-29) mmol/L Anion Gap 18 (12-20) BUN 23 H (9-16) mg/dL Creatinine 1.44 H (0.5-1.4) mg/dL Estim Creat Clear Calc 43.4 Estimated GFR 36 POC Glucose 151 H (60-115) mg/dL Random Glucose 175 H (60-115) mg/dL Lactic Acid 6.9 H* (0.5-2.0) mmol/L Lactic Acid F/U @ 2Hr (0.5-2.0) mmol/L Calcium 8.6 (8.4-10.2) mg/dL Total Bilirubin 2.6 H (0.0-1.0) mg/dL AST 295 H (5-31) U/L ALT 140 H (0-31) U/L Alkaline Phosphatase 185 H (39-117) U/L Total Creatine Kinase 2136 H (26-140) U/L Troponin I High Sens 122.6 H* D (<3.5-17.0) ng/L B-Natriuretic Peptide 1942 H (<100) pg/mL Total Protein 6.8 (6.5-8.0) g/dL Albumin 2.9 L (3.5-5.0) g/dL Urine Color Urine Appearance Urine pH (5.0-9.0) Ur Specific [place] (1.005-1.025) Urine Protein (Neg-Trace) mg/dL Urine Glucose (UA) (Negative) mg/dL Urine Ketones (Negative) mg/dL Urine Blood (Negative) Urine Nitrite (Negative) Ur Leukocyte Esterase (Negative) Urine RBC (0-2) /HPF Urine WBC (0-5) /HPF Ur Squamous Epith Cells (0-2) /HPF Urine Bacteria (None Seen) Hyaline Casts (0-2) /LPF Influenza Type A (PCR) (Negative) Influenza Type B (PCR) (Negative) RSV RNA Qual (PCR) (Negative) SARS-CoV-2 RNA (RT-PCR) (Negative) 06/26/24 06/26/24 06/26/24 Range/Units 11:37 12:21 13:29 WBC (4.8-10.8) X10*3/uL RBC (4.20-5.50) X10*6/uL Hgb (12.0-16.0) g/dl Hct (37.0-47.0) % MCV (80.0-98.0) fL MCH (27.0-33.0) pg MCHC (31.0-35.0) g/dl RDW (11.0-16.0) % Plt Count (160-400) X10*3/uL MPV (9.4-12.3) fL Immature Gran % (Auto) Neut % (Auto) Lymph % (Auto) [place] % (Auto) Eos % (Auto) Baso % (Auto) Lymph # (Auto) [place] # (Auto) Eos # (Auto) Baso # (Auto) Abs Immat Gran (auto) Absolute Neuts (auto) Absolute Nucleated RBC (0.0-0.012) X10*3/uL Nucleated RBC % (auto) (0.0-0.2) /100WBC Neutrophils % (Manual) (45-73) % Band Neutrophils % (3-5) % Lymphocytes % (Manual) (20-40) % Monocytes % (Manual) (2-11) % Abs Neuts (Manual) (2.0-8.3) X10*3/uL Lymphocytes # (Manual) (1.2-4.9) X10*3/uL Monocytes # (Manual) (0.1-1.2) X10*3/uL Platelet Estimate (NORMAL) Plt Morphology Comment RBC Morphology Smear Tech's Comments VBG pH (7.32-7.43) VBG pCO2 mmHg VBG pO2 mmHg VBG HCO3 (22-26) mmol/L VBG O2 Saturation % VBG Base Excess mmol/L Sodium (135-145) mmol/L Potassium (3.3-5.1) mmol/L Chloride (96-108) mmol/L Carbon Dioxide (22-29) mmol/L Anion Gap (12-20) BUN (9-16) mg/dL Creatinine (0.5-1.4) mg/dL Estim Creat Clear Calc Estimated GFR POC Glucose (60-115) mg/dL Random Glucose (60-115) mg/dL Lactic Acid (0.5-2.0) mmol/L Lactic Acid F/U @ 2Hr 4.1 H* (0.5-2.0) mmol/L Calcium (8.4-10.2) mg/dL Total Bilirubin (0.0-1.0) mg/dL AST (5-31) U/L ALT (0-31) U/L Alkaline Phosphatase (39-117) U/L Total Creatine Kinase (26-140) U/L Troponin I High Sens (<3.5-17.0) ng/L B-Natriuretic Peptide (<100) pg/mL Total Protein (6.5-8.0) g/dL Albumin (3.5-5.0) g/dL Urine Color DK YELLOW Urine Appearance Cloudy Urine pH 6.0 (5.0-9.0) Ur Specific [place] 1.015 (1.005-1.025) Urine Protein 30 (1+) H (Neg-Trace) mg/dL Urine Glucose (UA) Negative (Negative) mg/dL Urine Ketones Trace (Negative) mg/dL Urine Blood Large (3+) H (Negative) Urine Nitrite Negative (Negative) Ur Leukocyte Esterase Large (3+) H (Negative) Urine RBC 3-5 H (0-2) /HPF Urine WBC >50 H (0-5) /HPF Ur Squamous Epith Cells 6-10 (0-2) /HPF Urine Bacteria 4+ (None Seen) Hyaline Casts 3-5 (0-2) /LPF Influenza Type A (PCR) NEGATIVE (Negative) Influenza Type B (PCR) NEGATIVE (Negative) RSV RNA Qual (PCR) NEGATIVE (Negative) SARS-CoV-2 RNA (RT-PCR) NEGATIVE (Negative) Independent Interpretation I performed an independent interpretation of an: EKG and CT Scan Interpretation: My interpretation is in agreement with the radiologist's impression of these imaging studies. L Report Number: [id number]: Total DLP = 1305.00 mGy-cm EXAMINATION: CT ABDOMEN PELVIS WITH IV CONTRAST, CT CHEST WITH IV CONTRAST INDICATION: abd pain, nausea, vomiting, fall COMPARISON: Comparison is made with the prior chest CT dated 08/23/[address] of the abdomen and pelvis dated 11/24/2023.. TECHNIQUE: CT scan of the chest, abdomen and pelvis was performed following administration of 85 mL Omnipaque 350 using standard departmental protocol. Coronal and sagittal reformatted images were generated and reviewed. Oral contrast material was not administered at the request of the referring physician. This CT exam was performed with one or more of the following dose reduction techniques: automated exposure control, adjustment of the mA and/or kV according to patient size, use of iterative reconstruction technique. DLP: 1759 mGy-cm CHEST: THYROID: The thyroid is unremarkable. LUNGS: There is moderate respiratory motion artifact. There is dependent atelectasis bilaterally. MEDIASTINUM: There is no mediastinal lymphadenopathy. CHARAN: There is no hilar lymphadenopathy. CARDIOVASCULATURE: The heart is enlarged. There is no pericardial effusion. The thoracic aorta demonstrates moderate atherosclerotic irregularity, but is normal in caliber. The diameter of the main pulmonary artery is greater than that of the adjacent ascending thoracic aorta, compatible with pulmonary arterial hypertension. DEGREE OF CORONARY CALCIFICATION: moderate PLEURA: There is no pleural effusion. No pneumothorax. MAIN AIRWAYS: The mainstem bronchi and proximal branches are patent. AXILLA: There is no axillary lymphadenopathy. SOFT TISSUES: Unremarkable. BONES: There is degenerative disc disease of the spine. There are multiple old right rib fractures. However, there is buckling of the lateral aspects of the right 7th and 8th ribs, suspicious for nondisplaced fractures. ABDOMEN: LIVER: The liver is normal in size and contour. There is an linear hypodensity in the left lobe of the liver dome which likely represents a cyst but is difficult to characterize. The hepatic and portal veins are patent. GALLBLADDER / BILE DUCTS: The gallbladder is unremarkable. There is no intra or extrahepatic biliary ductal dilatation. SPLEEN: The spleen is normal in size. No focal splenic lesion is identified. PANCREAS: The pancreas is unremarkable in appearance. ADRENAL GLANDS: The right adrenal gland is unremarkable. Again seen is a 1.6 cm left adrenal nodule. KIDNEYS/RETROPERITONEUM: No renal calculi are identified. There is no hydronephrosis. There are bilateral renal cysts measuring up to 2.4 cm on the right and 2.6 cm on the left. In addition, there are 2 hyperdense masses at the lower pole of the right kidney measuring 1.6 and 1.4 cm in size, as seen previously. The left kidney is markedly atrophic. LYMPH NODES: No abdominal or pelvic lymphadenopathy. VASCULATURE: Again seen is marked atherosclerotic irregularity of the abdominal aorta. There is greater mural thrombus within the aorta than on the prior study. There is mild soft tissue infiltration anterior to the aorta at the level of the origin of the BLADIMIR. There is poor contrast opacification of the BLADIMIR when compared to the celiac axis and SMA. 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 MESENTERY/PERITONEUM: No free fluid. No masses. There is no free intraperitoneal gas. STOMACH: The stomach is unremarkable. SMALL BOWEL: The small bowel is normal in caliber. There is no abnormal bowel wall thickening or pneumatosis. COLON: There is a large amount of stool throughout the colon. There is no abnormal bowel wall thickening or pneumatosis. APPENDIX: Normal. URINARY BLADDER/PELVIC ORGANS: The urinary bladder is unremarkable. The uterus is unremarkable. BONES / SOFT TISSUES: There is degenerative disc disease of the spine. There is a moderate compression deformity involving the superior endplate of T12 which is new since 08/02/2023, but of indeterminate age. CT/CT abdomen pelvis w IV con IMPRESSION: 1. Probable nondisplaced fractures of the right 7th and 8th ribs. 2. Linear hypodensity in the left lobe of the liver without associated perihepatic fluid or ascites. As this is new from the prior study and there is a history of trauma, a liver laceration cannot be excluded. 3. Greater mural thrombus in the abdominal aorta than on prior studies. Haziness anterior to the aorta in the region of the BLADIMIR with poor I am nail opacification. 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 4. These findings were discussed with DILIP Landin in the emergency room on 06/26/2024 at 1:36 PM. Electronically signed by: Phoenix Santos MD 06/26/2024 01:38 PM EDT RP Dictated By: Phoenix Santos MD Signed By: Electronically signed by Phoenix Santos MD 06/26/24 1338 Report Number: [id number]: Total DLP = 1863.49 mGy-cm EXAMINATION: CT CERVICAL SPINE WITHOUT CONTRAST CLINICAL INFORMATION: Status post fall. COMPARISON: None available. TECHNIQUE: Contiguous axial images through the cervical spine using 3 mm collimation with bone and soft tissue algorithm. Sagittal and coronal reformatted images acquired. This CT examination was performed using dose optimization techniques as appropriate, variously including the following: *Automated exposure control *Adjustment of mA and/or kV according to patient size (this includes techniques or standardized protocols for targeted exams where dose is matched to indication/reason for exam; i.e. extremities or head) *Use of iterative reconstruction technique. DLP: 1167.94 mGy centimeter. FINDINGS: Patient's motion artifact. Degenerative changes in the periodontal C1 region. Sclerosis subchondral cyst formation and marginal osteophyte formation and decreased intervertebral disc height at C5-6 and to a lesser extent C6-7. Focal blastic lesion in the anterior aspect of C4. Grade 1 anterolisthesis C4-5 and C7-T1. Reverse curvature apex at C5-C6. Facet joint hypertrophy C2-3-2 C6-7. C1 is intact. C2 is intact. Right facet joint hypertrophy. C3 is intact. Right facet joint hypertrophy. C4 is grossly intact. Bilateral facet joint hypertrophy. C5 is grossly intact. Right facet joint hypertrophy. C6 is grossly intact. Right facet joint hypertrophy. C7 is grossly intact. No prevertebral compartment hematoma. Retropharyngeal trajectory both carotid arteries. Central spinal canal stenosis on a degenerative basis at C5-6 and C6-[address]/CT cervical spine wo IV con IMPRESSION: Patient's motion artifact. Multilevel cervical spondylosis more conspicuous at C5-6 and C6-7 levels without acute fracture or trauma-related listhesis. Stable. Fleischner guidelines were followed. Electronically signed by: George Low MD 06/26/2024 12:20 PM EDT RP Dictated By: George Trinh MD Signed By: Electronically signed by George Tineo MD 06/26/24 1220 Report Number: [id number]: Total DLP = 0.00 mGy-cm EXAMINATION: CT HEAD WITHOUT CONTRAST CLINICAL INFORMATION: fall, head strike COMPARISON: May 02, 2024. TECHNIQUE: Contiguous axial imaging was performed from the skull base to vertex without intravenous administration of contrast. This CT examination was performed using dose optimization techniques as appropriate, variously including the following: *Automated exposure control *Adjustment of mA and/or kV according to patient size (this includes techniques or standardized protocols for targeted exams where dose is matched to indication/reason for exam; i.e. extremities or head) *Use of iterative reconstruction technique DLP: 685.3 mGy-cm FINDINGS: Bony calvarium is intact. Skull base is intact. No acute intracranial hemorrhage, mass effect, midline shift, hydrocephalus or herniation. Sellar/suprasellar region demonstrated no gross masses or focal hemorrhage. Craniocervical junction is intact. Posterior cranial fossa contents demonstrated negative cisterna magna. Prominence of the extra-axial CSF spaces cerebral sulci and ventricles likely central volume loss. Calcified plaques in the cavernous segments both ICAs. Polypoid mucosal thickening, maxillary sinuses and ethmoid air cells without air-fluid levels. Questionable dehiscence in the anterior medial aspect of the supraclinoid segments both ICA. Tympanic cavities and mastoid cells are aerated. Edentulous. No hematoma in the intraconal or extraconal compartments of the cranium. CT/CT head/brain wo IV con IMPRESSION: No acute fracture, bony calvarium. No acute intracranial hemorrhage. Global cerebral atrophy. Electronically signed by: George Low MD 06/26/2024 12:11 PM EDT RP Dictated By: George Trinh MD Signed By: Electronically signed by George Tineo MD 06/26/24 1211 I independently interpreted this EKG and am in agreement with the below findings: Vent. Rate: 89 BPM Atrial Rate: 89 BPM P-R Int: 138 ms QRS Dur: 90 ms QT Int: 398 ms P-R-T Axes: 47 10 30 degrees QTcB Int: 484 ms Normal sinus rhythm Normal ECG When compared with ECG of 21-May-2024 11:25, QT has lengthened DD/ 1112 Radiology Impression Discussion of test interpretation with radiology: I have reviewed the radiologist's reading. Independent Historian Clinical information obtained from an independent historian. History obtained from or confirmed by: EMS (EMS provided additional history and confirmed the history provided by the patient.) Critical Care Time Critical Care Time Critical Care Time: Yes Total Critical Care Time: 51 Attestation: I spent 51 minutes of Critical Care Time with this patient. This does not include time spent on separately reported billable procedures. Discharge Plan Discharge Clinical Impression: Liver laceration, Stenosis of inferior mesenteric artery Patient Disposition: [facility] Transfer Details: TO [facility] ER - Accepted by Dr. Lewis Prescriptions: No Action omeprazole 40 mg capsule,delayed release(DR/EC) 40 mg PO DAILY@0630 methotrexate sodium 2.5 mg tablet 10 tab PO MO Patient Comments: Patient reports last taken Friday 05/19 prednisone 1 mg tablet 4 mg PO DAILY levothyroxine 50 mcg tablet 50 mcg PO DAILY@0630 bupropion HCl 300 mg tablet extended release 24 hr 300 mg PO DAILY@0900 duloxetine 60 mg capsule,delayed release(DR/EC) 60 mg PO DAILY ondansetron 4 mg tablet,disintegrating 4 mg PO Q8H PRN (Reason: nausea and vomiting) Qty: 10 0RF folic acid 1 mg tablet 2 mg PO DAILY atenolol 25 mg Tablet 25 mg PO DAILY Qty: 30 0RF Protocol: Hold for SBP/HR < HOLD for SBP < : 90 HOLD for HR < : 60 doxazosin 2 mg Tablet 2 mg PO BEDTIME Qty: 30 0RF Protocol: Hold for SBP< HOLD for SBP < : 90 furosemide 20 mg tablet 20 mg PO DAILY Qty: 30 0RF bupropion HCl 150 mg tablet extended release 24 hr 150 mg PO DAILY@0900 multivitamin Tablet 1 tab PO DAILY ibuprofen 200 mg Tablet 600 mg PO Q6H PRN (Reason: Pain) vitamin B complex Capsule 1 cap PO DAILY melatonin 10 mg Tablet 10 mg PO BEDTIME PRN (Reason: Sleep) biotin 5,000 mcg Tablet, Sublingual 5,000 mcg SUBLINGUAL DAILY bisacodyl 5 mg Tablet,Delayed Release (Dr/Ec) 5 mg PO DAILY PRN (Reason: Constipation) cholecalciferol (vitamin D3) [Vitamin D3] 25 mcg (1,000 unit) Capsule 25 mcg PO DAILY pregabalin 200 mg capsule 200 mg PO BID oxycodone 20 mg tablet 20 mg PO Q4H PRN (Reason: pain (scale score 7-10)) Qty: 20 0RF acetaminophen [Tylenol] 325 mg Tablet 650 mg PO Q4H PRN (Reason: Moderate Pain (Scale Score 5-6)) lidocaine HCl 4 % Adhesive Patch,Medicated 1 patch TOPICAL DAILY PRN (Reason: Pain) prednisone 5 mg tablet 5 mg PO DAILY PRN (Reason: arthritis pain) Referrals: Namita Acosta NP [Primary Care Provider] - Print Language: Bolivian
--- NOTE | 2024-06-26 10:40 | ECG_ITS ---
Test Reason : AMS Blood Pressure : */* mmHG Vent. Rate : 89 BPM Atrial Rate : 89 BPM P-R Int : 138 ms QRS Dur : 90 ms QT Int : 398 ms P-R-T Axes : 47 10 30 degrees QTcB Int : 484 ms Normal sinus rhythm Normal ECG When compared with ECG of 21-May-2024 11:25, QT has lengthened Referred By: Daniela Lentz Electronically Signed By: KOSTAS MARTELL
[2024-06-26 10:55] LABS: Glucose, Whole Blood 151 mg/dL (60-115)
[2024-06-26] MEDS: Acetaminophen 1,000 MG/100 ML PIGGYBACK 400 MG IV (11:19)
[2024-06-26] MEDS: ondansetron HCL 4 MG/2 ML VIAL IVPUSH (11:19)
[2024-06-26 11:23] LABS: Hematocrit 35.2 % (37.0-47.0); Hemoglobin 11.8 g/dl (12.0-16.0); Mean Corpuscular HGB Conc 33.5 g/dl (31.0-35.0); Mean Corpuscular Hemoglobin 30.6 pg (27.0-33.0); Mean Corpuscular Volume 91.4 fL (80.0-98.0); Mean Platelet Volume 11.1 fL (9.4-12.3); Platelet Count 178 X10*3/uL (160-400); Red Blood Count 3.85 X10*6/uL (4.20-5.50); Red Cell Distribution Width 15.8 % (11.0-16.0); White Blood Count 18.7 X10*3/uL (4.8-10.8)
[2024-06-26 11:32] LABS: VBG Base Excess -0.4 mmol/L; VBG HCO3 25 mmol/L (22-26); VBG pCO2 45 mmHg; VBG pH 7.35 (7.32-7.43); VBG pO2 33 mmHg
[2024-06-26 11:32] LABS: Venous Blood Gas Refer to POC result
--- NOTE | 2024-06-26 11:45 | PC.NURSE ---
Abx delayed d/t pt difficult stick needing US guided line, 2nd set of BC obtained before patient transferred to CT for scan. Abx will be given once pt returns to room.
[2024-06-26] MEDS: iohexoL 350 MG/ML 100 ML INFUS..BTL IV (11:49)
[2024-06-26 11:54] LABS: B Type Natriuretic Peptide 1942 pg/mL (<100)
[2024-06-26 11:56] LABS: Lactic Acid 6.9 mmol/L (0.5-2.0)
[2024-06-26] MEDS: cefTRIAXone sodium 1 GM VIAL IVPUSH (11:56)
[2024-06-26 12:05] LABS: Alanine Aminotransferase 140 U/L (0-31); Albumin Level 2.9 g/dL (3.5-5.0); Alkaline Phosphatase 185 U/L (39-117); Anion Gap 18 (12-20); Aspartate Amino Transferase 295 U/L (5-31); Bilirubin Total 2.6 mg/dL (0.0-1.0); Blood Urea Nitrogen 23 mg/dL (9-16); Calcium 8.6 mg/dL (8.4-10.2); Carbon Dioxide 23 mmol/L (22-29); Chloride 103 mmol/L (96-108); Creatinine Clr Calc Pharmacy 43.4; Estimated Glomerular Filt Rate 36; Glucose Random 175 mg/dL (60-115); Potassium 3.3 mmol/L (3.3-5.1); Sodium 141 mmol/L (135-145); Total Protein 6.8 g/dL (6.5-8.0); Troponin-I High Sensitivity 122.6 ng/L (<3.5-17.0)
[2024-06-26] MEDS: Albumin Human 25 % 100 ML 133.33 ML IV ×2 (12:08→12:58)
[2024-06-26 12:10] LABS: SLIDE REVIEW MANUAL DIFF
[2024-06-26 12:15] LABS: Neutrophils Percent Manual 80 % (45-73)
[2024-06-26 12:17] LABS: Band Neutrophils Percent 12 % (3-5); Lymphocytes Absolute Manual 0.4 X10*3/uL (1.2-4.9); Lymphocytes Percent Manual 2 % (20-40); Monocytes Absolute Manual 1.1 X10*3/uL (0.1-1.2); Monocytes Percent Manual 6 % (2-11); Neutrophils Absolute Manual 17.2 X10*3/uL (2.0-8.3); Platelet Estimate NORMAL (NORMAL); Platelet Morphology Comment NORMAL; RBC Morphology NORMAL
[2024-06-26 12:27] LABS: Influenza A PCR NEGATIVE (Negative); Influenza B PCR NEGATIVE (Negative); Resp Syncy Virus RNA Qual PCR NEGATIVE (Negative); SARS COV2 PCR INHOUSE NEGATIVE (Negative)
[2024-06-26 12:32] LABS: Appearance Urine Cloudy; Color Urine DK YELLOW; Glucose Urine UA Negative (Negative); Leukocyte Esterase Urine Large (3+) (Negative); Nitrite Urine Negative (Negative); Specific Gravity - Urine 1.015 (1.005-1.025); UMIC TRIGGER UACC YES; Urine Blood Large (3+) (Negative); Urine Ketones Trace mg/dL (Negative); Urine Protein 30 (1+) mg/dL (Neg-Trace)
[2024-06-26 12:41] LABS: Bacteria Urine 4+ (None Seen); UACC Culture Trigger YES; WBC Urine >50 /HPF (0-5)
[2024-06-26] MEDS: Ertapenem Sodium 1 GM VIAL IVPUSH (12:54)
[2024-06-26 13:19] LABS: Reflex Lactate? Lactic Acid Added
[2024-06-26 14:07] LABS: ~Lactic Acid-LAB USE ONLY 4.1 mmol/L (0.5-2.0)
--- NOTE | 2024-06-26 14:27 | PC.NURSE ---
Attempted to call RN to RN report to [facility], was on hold for >6 minutes, will attempt to call report again soon
--- OUTSIDE RECORDS SUMMARY | 2024-06-26 14:32 | XMS_ITS | Data Portability ---
Author Organization [facility], Main Office Address [address], [address] [place] [address] Care Team Providers Care Advertising Consultant Name Role Phone GINO MICHAEL OTHER [facility] ([facility] OTHER Assessment No assessment recorded. Plan [...] Address Organization Details Recorded Time Metabolic encephalopathy 36425505 Active 2023 Flor Michel NP [address] [facility], [address], [place], [address], [facility] 4 09:06:02 Bacteriuria 48672724 Active 2023 Flor Michel NP [address] [facility], [address], [place], [address], [facility] [employer] [facility] 4 09:06:42 Chronic pain 75354174 Active 2023 Flor Michel NP [address] [facility], [address], [place], [address], [facility] 4 09:06:51 Rheumatoid arthritis 70766887 Active 2023 Flor Michel NP [address] [facility], [address], [place], [address], [facility] 4 09:06:59 Essential hypertension 38620592 Active 2023 Flor Michel NP [address] [facility], [address], [place], [address], [facility] 4 09:07:06 Chronic obstructive pulmonary disease 65879460 Active 2023 Flor Michel NP [address], [address], [place], [address], [facility] 4 09:07:11 Fracture of femur 19608961 Active 2023 Flor Michel NP [address], [place], [address], [facility] 4 09:08:02 Gastroesophage al reflux disease 699838758 Active 2023 Flor Michel NP [address] [facility], [address], [place], [address], [facility] 4 09:08:19 Depressive disorder 44678800 Active 2023 Flor Michel NP [address] [facility], [address], [place], [address], [facility] 4 09:08:43 Hypothyroidism 40124991 Active 2023 Flor Michel NP [address] [facility], [address], [place], [address], [facility] 4 09:17:20 Congestive heart failure 48167392 Active 2023 Flor Michel NP [address] [facility], [address], [place], [address], [facility] 4 09:28:03 Problem Notes None recorded. Medical Equipment None Reported. Allergies Allergen ID Allergen Name Allergen Category Reaction Reaction Severity Criticality Documentation Date Start Date Code Code System Note Provider Name and Address Organization Details Recorded Time 68087 lisinopri l medicatio n anaphylax is Not available unabletoasse ss 02/28/2024 53511 RxNorm Not Available Not Available Not Available 00196 Substance with sulfonami de structure and antibacte rial mechanism of action (substanc e) medicatio n rash Not available low 02/28/2024 26947 8003 SNOMED Not Available Not Available Not Available 56494 tramadol medicatio n rash Not [facility] 02/28/2024 77431 RxNorm Not Available Not Available Not Available 95556 Product containin g 3-hydroxy -3-methyl glutaryl- coenzyme A reductase inhibitor (product) medicatio n rash Not available unabletoasse 02/28/2024 13394 009 SNOMED Not Available Not Available Not Available 59245 hydrochlo rothiazid e medicatio n other Not available [facility] 02/28/2024 5487 RxNorm ? adver se react ion with abnor mal labs Not Available Not Available Not Available Vitals Date Recorded Body weight Heart rate Respiratory rate Body temperature Oxygen saturation Oxygen saturation in Arterial blood by Pulse oximetry Systolic blood pressure Diastolic blood pressure Provider Name and Address Organization Details Last Updated DateTime 4 11351.4 7 g 87 /min 18 /min 97.5 [degF] 97 % 97 % 132 mm[Hg] 68 mm[Hg] Flor Michel NP [address] [facility], [facility] [address], [place], [address], [facility] 08:26:33 Social History Question Answer Notes LastModified by Organizat ion Details LastModified Time Tobacco Smoking Status Former Smoker Flor Michel NP [address] [facility], [facility] [address], [place], [address], [facility] 02/28/2024 09:04:02 Do You Have An Advance [...] conjugate PCV 13 0 completed [facility] 03/01/2024 12:57:19 pneumococcal polysaccharide PPV23 8 completed [facility] 03/01/2024 12:57:36 influenza, unspecified formulation 2 completed [facility] 03/01/2024 12:57:51 influenza, unspecified formulation [facility]/01/[facility] 12:58:01 influenza, unspecified formulation 4 completed [facility] 03/01/2024 12:58:11 SARS-COV-2 (COVID-19) vaccine, UNSPECIFIED 1 completed [facility] 03/01/2024 12:58:28 SARS-COV-2 (COVID-19) vaccine, UNSPECIFIED 1 completed [facility] 03/01/2024 12:58:37 SARS-COV-2 (COVID-19) vaccine, UNSPECIFIED 2 completed [facility] 03/01/2024 12:58:44 zoster, unspecified formulation 8 completed [facility] 03/01/2024 12:59:01 Past Encounters Encounter ID Performer Location Encounter Start Date Encounter Closed Date Diagnosis/Indication Diagnosis SNOMED-CT Code Diagnosis ICD10 Code Diagnosis Note [id number] Flor Michel NP [address] [place] [address] 02/28/2024 08:21:30 02/29/2024 11:51:58 Metabolic encephalopathy 09984495 G93.41 felt resolved from abx from UTI or large amount of narcotics while in hosp resolved at d/cchanged from dilaudid to oxycodonem onitor for changes in ms Chronic pain 95199610 G8 9.29 with hx of fibromyalg ia [...] mg po qd ? pain or mood [id number] /4 lidocaine patch to left knee am, left shoulder q pm. Bacteriuria 95783304 R82 .71 with ESBL felt to be colonized, seen by ID and no further treatmentg iven ceftriaxon e and ertampenum in hospmonito rcbc, bmp,s/s of fever etc.isolat ion per facility protocol Rheumatoid arthritis 698 20779 M06.9 see chronic pain abovefolic acid 1mg qdmonitor for flare Essential hypertension 79586366 I10 atenolol 25 mg qddoxazosi n 2mg qhs? for htnfurosem dereje 20 mg po qdmonitor bp, cardiac status Chronic ob structive pulmonary disease 84926873 J44.9 albuterol 2 puff po q 6 hours prn sob2 liters o2 at nocmonitor Depressive disorder 3548 9007 F32.A buproprion 450 mg qdduloxeti ne 60 mg qdpsych prn Gastroesop hageal reflux disease 017432532 K21.9 omeprazole 40 mg qdzofran 4 mg po q 8 prn n/vmonitor Hypothyroidism 33875063 E03.9 levothyrox ine 50 mcg qdtsh, free t4 prnmonitor Fracture of tibia 159785 02 S82.202D xray showing acute fracture of [...] surgery recommende d.FU outpt with surgeon in [place] recommende d.see chronic pain for management ergocalcif dajuan 1250 mcg po mondaysmon itor for changes, increased pain, or need for referral earlier Congestive heart failure 55697917 I50.9 lasix 20 mg po qdmonitor vitals, cardiac status Asthenia 71623156 R53.1 PT OT eval and treatwheel chair at baseline with self transfers, NWB to left tibiamonit or Recurrent falls 40023026 2 R29.6 PT OT eval and treatwheel [...] Hassan Member ID Guarantor Name 02/28/2024 1 [facility] (MEDICARE REPLACEMENT/A DVANTAGE - PPO) [id number] Alexandrea Renee [id number] Alexandrea Renee Notes Date Note Type Note [...] surgery recommended. FU outpt with surgeon in [place] recommended.Her pain was managed with dilaudid. She [...] okay, dialysis undecided Flor Michel NP [address] [facility], [address], [place], [address], [facility] - [facility] 02/28/2024 09:52:32 OBGyn Episode No OBEpisode recorded.
--- OUTSIDE RECORDS SUMMARY | 2024-06-26 14:32 | XMS_ITS | Encounter Summary ---
Author Organization [facility] Address [address] [place] [address] Care Team Providers Care Electrician Helper Name Role Phone Travis Holbrook MD Primary Care Provider [phone] Encounter Details Date Type Department Care Team (Late st Contact Info) Description 03/16/2024 Lab Requisition [facility] - Main Lab [address] [facility] [address] [facility] [place] [address] Lavonne Irvin MD [address] [place], [place] [address] Essential (primary) hypertension; Acute kidney failure, unspecified [...] mmol/L LAB CHEMISTRY METHOD 03/18/2024 1:[address] [facility] Potassium 4.1 3.5 - 5.5 mmol/L LAB CHEMISTRY METHOD 03/18/2024 1:[address] [facility] Chloride 104 96 - 110 mmol/L LAB CHEMISTRY METHOD 03/18/2024 1:[address] [facility] CO2 31 21 - 32 mmol/L LAB CHEMISTRY METHOD 03/18/2024 1:[address] [facility] Anion Gap 2(L) 3 - 11 LAB CHEMISTRY METHOD 03/18/2024 1:[address] [facility] Glucose 75 70 - 100 mg/dL LAB CHEMISTRY METHOD 03/18/2024 1:[address] [facility] BUN 23 5 - 25 mg/dL LAB CHEMISTRY METHOD 03/18/2024 1:[address] [facility] Creatinine 1.30(H) 0.50 - 1.10 mg/dL LAB CHEMISTRY METHOD 03/18/2024 1:[address] [facility] eGFR 44(L) >=60 mL/min/1. 73m2 LAB CHEMISTRY METHOD 03/18/2024 1:[address] [facility] Comment:Calculation based on the??Chronic Kidney Disease Epidemiology Collaboration (CKD-EPI) equation refit??without adjustment for race. BUN/Creatinine Ratio 17.7 LAB CHEMISTRY METHOD 03/18/2024 1:[address] [facility] Calcium 8.9 8.5 - 10.5 mg/dL LAB CHEMISTRY METHOD 03/18/2024 1:[address] [facility] Blood Venous blood specimen / Unknown Venipuncture / Unknown 03/18/2024 7:09 AM EST 03/18/2024 11:39 AM EST us Lavonne Irvin MD LAB BLOOD ORDERABLES Final Resul t [facility] [address] [place] [address], * (ABNORMAL) Complete blood count (03/18/2024 7:09 AM EST) [facility] Signature WBC 6.3 4.8 - 10.8 K/mcL LAB HEMETOLOGY METHOD 03/18/2024 11:57 AM EST [facility] RBC 3.90 3.80 - 4.80 M/mcL LAB HEMETOLOGY METHOD 03/18/2024 11:[address] [facility] Hemoglobin 11.6 11.5 - 16.0 g/dL LAB HEMETOLOGY METHOD 03/18/2024 11:[address] [facility] Hematocrit 37.4 35.0 - 47.0 % LAB HEMETOLOGY METHOD 03/18/2024 11:[address] [facility] MCV 97.1 79.0 - 98.0 FL LAB HEMETOLOGY METHOD 03/18/2024 11:57 AM EST [facility] MCH 30.1 27.0 - 32.0 pcg LAB HEMETOLOGY METHOD 03/18/2024 11:[address] [facility] MCHC 31.0(L) 32.0 - 37.0 g/dL LAB HEMETOLOGY METHOD 03/18/2024 11:[address] [facility] RDW 15.9(H) 11.0 - 15.0 % LAB HEMETOLOGY METHOD 03/18/2024 11:[address] [facility] Platelets 148 130 - 400 K/mcL LAB HEMETOLOGY METHOD 03/18/2024 11:[address] [facility] MPV 11.0 7.0 - 11.0 FL LAB HEMETOLOGY METHOD 03/18/2024 11:[address] [facility] NRBC 0.0 <1.0 % LAB HEMETOLOGY METHOD 03/18/2024 11:57 AM EST [facility] NRBC Absolute 0.00 <0.10 K/mcL LAB HEMETOLOGY METHOD 03/18/2024 11:57 AM EST [facility] Blood Venous blood specimen / Unknown Venipuncture / Unknown 03/18/2024 7:09 AM EST 03/18/2024 11:39 AM EST us Lavonne Irvin MD LAB BLOOD ORDERABLES Final Resul t [facility] [address] [place] [address], documented in this encounter Visit Diagnoses Diagnosis Essential (primary) hypertension Unspecified essential hypertension Acute kidney failure, unspecified (CMS/HCC) Acute kidney failure, unspecified documented in this encounter Care Teams Electrician Helper Relationship Specialty Start Date End Date Travis Holbrook MD [address] [place] [address], [address] PCP - General Family Medicine 02/28/24 documented as of this encounter
--- OUTSIDE RECORDS SUMMARY | 2024-06-26 14:32 | XMS_ITS | Patient Health Record ---
Author Organization [facility] Address [address] [place] [address] Care Team Providers Care Salesperson Flying Squad Name Role Phone Namita Acosta NP Primary Care Provider Jose Pizarro Unavailable [phone] Allergies Allergen (clinical drug ingredient) Drug/Non Drug Allergy documented on EMR Reaction Allergy Type Onset Date Status Adhesive rash Allergy Active Fentanyl and Related rash Drug Allergy Active hydrocortisone Hydrocortisone rash Drug Allergy Active lisinopril Lisinopril anaphylaxis Drug Allergy Act shawanda Substance with 7-kjnjeem-4-methylg lutaryl-coenzyme A reductase inhibitor mechanism of action [...] day(s) Active Vitamin D (Ergocalciferol) 1.25 MG (00276 UT) TAKE 1 CAPSULE BY MOUTH 1 [...] W/U Status Risk Notes Problem Atherosclerosis of sleetm[place] arteries of the extremities ([id number]) Atherosclerosis of sleetm[place] artery of both lower extremities, with unspecified presence of clinical manifestation (I70.203) Active confirmed Problem [id number] Rheumatoid arthritis involving both feet, unspecified whether rheumatoid factor present (M06.9) Active confirmed Plan Of Treatment Pending Test Test Name Order Date [id number] SKIN/TISSUE 12/17/2021 [id number] SKIN/TISSUE 01/21/2022 [id number] SKIN/TISSUE 05/25/2022 87147 I&D ABSCESS- SIMPLE,SINGLE 023 61843 I&D ABSCESS- SIMPLE,SINGLE 022 Insurance Providers Payer Name Payer Address Payer Phone Subscriber Number Group Number Insured Name Patient Relationship to Insured Coverage Start Date Coverage End Date [employer] Medicare [id number] [address] [address] [place] [address] [id number] Alexandrea Renee Self - patient is the [...] ribs- CT -sameday went back 09/12/21 09/10/21 [facility]-expiration rheumatoid lung-overnight 07/2021
--- OUTSIDE RECORDS SUMMARY | 2024-06-26 14:32 | XMS_ITS | Clinical Summary ---
Author Organization [address] Address [address] [place] [address] Phone Care Team Providers Care Supervisor [employer] Name Role Phone Travis Holbrook MD Primary Care Provider [phone] Allergies Active Allergy Reactions Criticality Noted Date Comments Adhesive Tape-Silicones Low 02/06/2017 Tape Other Reaction(s): Rash/Dermatitis Chlorthalidone Medium 08/08/2017 Hypokalemia Hydrochlorothiazide High 02/07/2017 Hyponatremia Lisinopril Anaphylaxis,Swell ing High 02/06/2017 anaphylaxis, 2017 [facility] Y[facility]ht[facility]-Rpu-Yeq Reductase Inhibitors 02/06/2017 Statins [Hmg-coa-r Inhibitors] Leg [...] Vitamin D level with upcoming blood work. Surgical History Surgery Date Site/Laterality Comments OTHER SURGICAL HISTORY N/A PROCEDURE: SC HYSTEROSCOPY ENDOMETRIAL ABLATION TUBAL LIGATION PROCEDURE: HISTORICAL [...] Vaccines (1 of 2) 02/12/1971 RSV Immunization Adult Patients (1 - Risk 60-74 years 1-dose series) [...] (primary) hypertension Acute kidney failure, unspecified (CMS/HCC) LIPID PANEL Routine 07/06/2022 from Last 3 Months or Most Recently Relevant to Health Maintenance Results * (ABNORMAL) Basic metabolic panel (03/18/2024 7:09 AM EST) Sodium 137 133 - 145 mmol/L LAB CHEMISTRY METHOD 03/18/2024 1:26 PM [facility] Potassium 4.1 3.5 - 5.5 mmol/L LAB CHEMISTRY METHOD 03/18/2024 1:26 PM [facility] Chloride 104 96 - 110 mmol/L LAB CHEMISTRY METHOD 03/18/2024 1:26 PM [facility] CO2 31 21 - 32 mmol/L LAB CHEMISTRY METHOD 03/18/2024 1:26 PM [facility] Anion Gap 2(L) 3 - 11 LAB CHEMISTRY METHOD 03/18/2024 1:26 PM [facility] Glucose 75 70 - 100 mg/dL LAB CHEMISTRY METHOD 03/18/2024 1:26 PM [facility] BUN 23 5 - 25 mg/dL LAB CHEMISTRY METHOD 03/18/2024 1:26 PM [facility] Creatinine 1.30(H) 0.50 - 1.10 mg/dL LAB CHEMISTRY METHOD 03/18/2024 1:26 PM [facility] eGFR 44(L) >=60 mL/min/1. 73m2 LAB CHEMISTRY METHOD 03/18/2024 1:26 PM [facility] Comment:Calculation based on the??Chronic Kidney Disease Epidemiology Collaboration (CKD-EPI) equation refit??without adjustment for race. BUN/Creatinine Ratio 17.7 LAB CHEMISTRY METHOD 03/18/2024 1:26 PM [facility] Calcium 8.9 8.5 - 10.5 mg/dL LAB CHEMISTRY METHOD 03/18/2024 1:26 PM [facility] Blood Venous blood specimen / Unknown Venipuncture / Unknown 03/18/2024 7:09 AM EST 03/18/2024 11:39 AM EST Lavonne Irvin MD LAB BLOOD ORDERABLES Final Resul t [facility] [address] [place] [address], * Lipid panel (07/06/2022) LDL/HDL Ratio 0 Comment:no interpretation, a bstracted Triglycerides 0 mg/dL Comment:no interpretation, a bstracted Cholesterol 0 mg/dL Comment:no interpretation, a bstracted HDL 0 mg/dL Comment:no interpretation, a bstracted LDL Cholesterol 0 mg/dL Comment:no interpretation, a bstracted Blood Venous blood specimen / Unknown Thelma Gutiérrez MD LAB BLOOD ORDERABLES Fadumo l Result from Last 3 Months or Most Recently Relevant to Health Maintenance Insurance MEDICARE [place]ICA[place] - [place] [facility] MEDICARE Care Teams Supervisor [employer] Relationship Specialty Start Date End Date Travis Holbrook MD [address] [place] [address] [address] [place], [phone] PCP - General Family Medicine 02/28/24
--- OUTSIDE RECORDS SUMMARY | 2024-06-26 14:32 | XMS_ITS | Encounter Summary ---
Author Organization [facility] Address [address] [place] [address] Care Team Providers Care Metalizing Machine Operator Name Role Phone Travis Holbrook MD Primary Care Provider [phone] Encounter Details Date Type Department Care Team (Late st Contact Info) Description 02/28/[address] [facility] - Main Lab [address] [facility] [place] [address] Travis Holbrook MD [address] [place] [address] 204 [facility] [phone] Other retirement (current) drug therapy Social History Tobacco Use [...] COUNT Routine 02/28/2024 6:48 AM EST Other sanipractic physician (current) drug therapy BASIC METABOLIC PANEL Routine 02/28/2024 6:48 AM EST Other sanipractic physician (current) drug therapy documented in this encounter Results * (ABNORMAL) Basic metabolic panel (02/28/2024 6:48 AM EST) Sodium 137 133 - 145 mmol/L LAB CHEMISTRY METHOD 02/28/2024 12:05 PM [facility] Potassium 4.2 3.5 - 5.5 mmol/L LAB CHEMISTRY METHOD 02/28/2024 12:05 PM [facility] Chloride 103 96 - 110 mmol/L LAB CHEMISTRY METHOD 02/28/2024 12:05 PM [facility] CO2 31 21 - 32 mmol/L LAB CHEMISTRY METHOD 02/28/2024 12:05 PM [facility] Anion Gap 3 3 - 11 LAB CHEMISTRY METHOD 02/28/2024 12:05 PM [facility] Glucose 81 70 - 100 mg/dL LAB CHEMISTRY METHOD 02/28/2024 12:05 PM [facility] BUN 26(H) 5 - 25 mg/dL LAB CHEMISTRY METHOD 02/28/2024 12:05 PM [facility] Creatinine 1.00 0.50 - 1.10 mg/dL LAB CHEMISTRY METHOD 02/28/2024 12:05 PM [facility] eGFR 60 >=60 mL/min/1. 73m2 LAB CHEMISTRY METHOD 02/28/2024 12:05 PM [facility] Comment:Calculation based on the??Chronic Kidney Disease Epidemiology Collaboration (CKD-EPI) equation refit??without adjustment for race. BUN/Creatinine Ratio 26.0 LAB CHEMISTRY METHOD 02/28/2024 12:05 PM [facility] Calcium 9.0 8.5 - 10.5 mg/dL LAB CHEMISTRY METHOD 02/28/2024 12:05 PM [facility] Blood Venous blood specimen / Unknown Venipuncture / Unknown 02/28/2024 6:48 AM EST 02/28/2024 10:45 AM EST us Travis Holbrook MD LAB BLOOD ORDERABLES Final Resul t [facility] [address] [place] [address], [place] [phone] * (ABNORMAL) Complete blood count (02/28/2024 6:48 AM EST) [facility] WBC 6.1 4.8 - 10.8 K/mcL LAB HEMETOLOGY METHOD 02/28/2024 11:33 AM [facility] RBC 3.80 3.80 - 4.80 M/mcL LAB HEMETOLOGY METHOD 02/28/2024 11:33 AM [facility] Hemoglobin 11.4(L) 11.5 - 16.0 g/dL LAB HEMETOLOGY METHOD 02/28/2024 11:33 AM [facility] Hematocrit 36.3 35.0 - 47.0 % LAB HEMETOLOGY METHOD 02/28/2024 11:33 AM [facility] MCV 95.3 79.0 - 98.0 FL LAB HEMETOLOGY METHOD 02/28/2024 11:33 AM [facility] MCH 29.9 27.0 - 32.0 pcg LAB HEMETOLOGY METHOD 02/28/2024 11:33 AM [facility] MCHC 31.4(L) 32.0 - 37.0 g/dL LAB HEMETOLOGY METHOD 02/28/2024 11:33 AM [facility] RDW 15.0 11.0 - 15.0 % LAB HEMETOLOGY METHOD 02/28/2024 11:33 AM [facility] Platelets 180 130 - 400 K/mcL LAB HEMETOLOGY METHOD 02/28/2024 11:33 AM [facility] MPV 10.5 7.0 - 11.0 FL LAB HEMETOLOGY METHOD 02/28/2024 11:33 AM [facility] NRBC 0.0 <1.0 % LAB HEMETOLOGY METHOD 02/28/2024 11:33 AM [facility] NRBC Absolute 0.00 <0.10 K/mcL LAB HEMETOLOGY METHOD 02/28/2024 11:33 AM EST [facility] Blood Venous blood specimen / Unknown Venipuncture / Unknown 02/28/2024 6:48 AM EST 02/28/2024 10:45 AM EST us Travis Holbrook MD LAB BLOOD ORDERABLES Final Resul t [facility] [address] [place] [address], documented in this encounter Visit Diagnoses Diagnosis Other sanipractic physician (current) drug therapy documented in this encounter Care Teams Metalizing Machine Operator Relationship Specialty Start Date End Date Travis Holbrook MD [address] [place] [address], [phone] PCP - General Family Medicine 02/28/24 documented as of this encounter
--- OUTSIDE RECORDS SUMMARY | 2024-06-26 14:32 | XMS_ITS | Encounter Summary ---
Author Organization [facility] Address [address] [place] [address] Care Team Providers Care Competitive Athlete Name Role Phone Travis Holbrook MD Primary Care Provider [phone] Encounter Details Date Type Department Care Team (Late st Contact Info) Description 03/08/2024 Lab Requisition [facility] - Main Lab 299 [facility] [place] [address] Lavonne Irvin MD [address] [place], [place] [id number] Essential (primary) hypertension; Acute kidney failure, unspecified [...] mmol/L LAB CHEMISTRY METHOD 03/11/2024 2:58 PM [facility] Potassium 4.2 3.5 - 5.5 mmol/L LAB CHEMISTRY METHOD 03/11/2024 2:58 PM [facility] Chloride 105 96 - 110 mmol/L LAB CHEMISTRY METHOD 03/11/2024 2:58 PM [facility] CO2 32 21 - 32 mmol/L LAB CHEMISTRY METHOD 03/11/2024 2:58 PM [facility] Anion Gap 4 3 - 11 LAB CHEMISTRY METHOD 03/11/2024 2:58 PM [facility] Glucose 79 70 - 100 mg/dL LAB CHEMISTRY METHOD 03/11/2024 2:58 PM [facility] BUN 20 5 - 25 mg/dL LAB CHEMISTRY METHOD 03/11/2024 2:58 PM [facility] Creatinine 1.34(H) 0.50 - 1.10 mg/dL LAB CHEMISTRY METHOD 03/11/2024 2:58 PM [facility] eGFR 42(L) >=60 mL/min/1. 73m2 LAB CHEMISTRY METHOD 03/11/2024 2:58 PM [facility] Comment:Calculation based on the??Chronic Kidney Disease Epidemiology Collaboration (CKD-EPI) equation refit??without adjustment for race. BUN/Creatinine Ratio 14.9 LAB CHEMISTRY METHOD 03/11/2024 2:58 PM [facility] Calcium 9.1 8.5 - 10.5 mg/dL LAB CHEMISTRY METHOD 03/11/2024 2:58 PM [facility] Blood Venous blood specimen / Unknown Venipuncture / Unknown 03/11/2024 7:17 AM EST 03/11/2024 11:24 AM EST us Lavonne Irvin MD LAB BLOOD ORDERABLES Final Resul t [facility] [address] [place] [address], * (ABNORMAL) Complete blood count (03/11/2024 7:17 AM EST) WBC 4.7(L) 4.8 - 10.8 K/mcL LAB HEMETOLOGY METHOD 03/11/2024 11:[address] [facility] RBC 3.70(L) 3.80 - 4.80 M/mcL LAB HEMETOLOGY METHOD 03/11/2024 11:48 AM [facility] Hemoglobin 11.2(L) 11.5 - 16.0 g/dL LAB HEMETOLOGY METHOD 03/11/2024 11:48 AM [facility] Hematocrit 35.8 35.0 - 47.0 % LAB HEMETOLOGY METHOD 03/11/2024 11:48 AM [facility] MCV 97.0 79.0 - 98.0 FL LAB HEMETOLOGY METHOD 03/11/2024 11:[address] [facility] MCH 30.4 27.0 - 32.0 pcg LAB HEMETOLOGY METHOD 03/11/2024 11:48 AM [facility] MCHC 31.3(L) 32.0 - 37.0 g/dL LAB HEMETOLOGY METHOD 03/11/2024 11:48 AM [facility] RDW 15.5(H) 11.0 - 15.0 % LAB HEMETOLOGY METHOD 03/11/2024 11:[address] [facility] Platelets 166 130 - 400 K/mcL LAB HEMETOLOGY METHOD 03/11/2024 11:48 AM [facility] MPV 10.6 7.0 - 11.0 [...] MD LAB BLOOD ORDERABLES Final Resul t [facility] [address] [place] [address], documented in this encounter Visit Diagnoses Diagnosis Essential (primary) hypertension Unspecified essential hypertension Acute kidney failure, unspecified (CMS/HCC) Acute kidney failure, unspecified documented in this encounter Care Teams Competitive Athlete Relationship Specialty Start Date End Date Travis Holbrook MD [address] [place] [address], [phone] PCP - General Family Medicine 02/28/24 documented as of this encounter
--- OUTSIDE RECORDS SUMMARY | 2024-06-26 14:32 | XMS_ITS | Encounter Summary ---
Author Organization [facility] Address [address] [place] [address] Care Team Providers Care Project Administrative Assistant Name Role Phone Travis Holbrook MD Primary Care Provider [phone] Encounter Details Date Type Department Care Team (Late st Contact Info) Description 03/05/2024 Lab Requisition [facility] - Main Lab 299 [facility] [place] [address] Travis Holbrook MD [address] [place] [phone] Other jail (current) drug therapy Social History Tobacco Use [...] of this encounter Visit Diagnoses Diagnosis Other jail (current) drug therapy documented in this encounter Care Teams Project Administrative Assistant Relationship Specialty Start Date End Date Travis Holbrook MD [address] [facility] 204 [facility] [phone] PCP - General Family Medicine 02/28/24 documented as of this encounter
--- OUTSIDE RECORDS SUMMARY | 2024-06-26 14:32 | XMS_ITS | Encounter Summary ---
Author Organization [facility] Address [address] [place] [address] Care Team Providers Care Facilities Director Name Role Phone Travis Holbrook MD Primary Care Provider [phone] Encounter Details Date Type Department Care Team (Late st Contact Info) Description 03/07/2024 Lab Requisition [facility] - Main Lab 299 [facility] [place] [address] Lavonne Irvin MD [address] [place], [place] [phone] Essential (primary) hypertension; Acute kidney failure, unspecified [...] mmol/L LAB CHEMISTRY METHOD 03/07/2024 11:23 AM [facility] Potassium 4.5 3.5 - 5.5 mmol/L LAB CHEMISTRY METHOD 03/07/2024 11:23 AM [facility] Chloride 106 96 - 110 mmol/L LAB CHEMISTRY METHOD 03/07/2024 11:23 AM [facility] CO2 29 21 - 32 mmol/L LAB CHEMISTRY METHOD 03/07/2024 11:23 AM [facility] Anion Gap 5 3 - 11 LAB CHEMISTRY METHOD 03/07/2024 11:23 AM [facility] Glucose 78 70 - 100 mg/dL LAB CHEMISTRY METHOD 03/07/2024 11:23 AM [facility] BUN 25 5 - 25 mg/dL LAB CHEMISTRY METHOD 03/07/2024 11:23 AM [facility] Creatinine 1.27(H) 0.50 - 1.10 mg/dL LAB CHEMISTRY METHOD 03/07/2024 11:23 AM [facility] eGFR 45(L) >=60 mL/min/1. 73m2 LAB CHEMISTRY METHOD 03/07/2024 11:23 AM [facility] Comment:Calculation based on the??Chronic Kidney Disease Epidemiology Collaboration (CKD-EPI) equation refit??without adjustment for race. BUN/Creatinine Ratio 19.7 LAB CHEMISTRY METHOD 03/07/2024 11:23 AM [facility] Calcium 8.6 8.5 - 10.5 mg/dL LAB CHEMISTRY METHOD 03/07/2024 11:23 AM [facility] Blood Venous blood specimen / Unknown Venipuncture / Unknown 03/07/2024 6:00 AM EST 03/07/2024 10:35 AM EST us Lavonne Irvin MD LAB BLOOD ORDERABLES Final Resul t [facility] [address] [place] [address], * (ABNORMAL) Complete blood count (03/07/2024 6:00 AM EST) [facility] Signature WBC 4.8 4.8 - 10.8 K/mcL LAB HEMETOLOGY METHOD 03/07/2024 10:54 AM EST [facility] RBC 3.70(L) 3.80 - 4.80 M/mcL LAB HEMETOLOGY METHOD 03/07/2024 10:54 AM [facility] Hemoglobin 11.1(L) 11.5 - 16.0 g/dL LAB HEMETOLOGY METHOD 03/07/2024 10:54 AM [facility] Hematocrit 34.6(L) 35.0 - 47.0 % LAB HEMETOLOGY METHOD 03/07/2024 10:54 AM [facility] MCV 94.3 79.0 - 98.0 FL LAB HEMETOLOGY METHOD 03/07/2024 10:54 AM [facility] MCH 30.2 27.0 - 32.0 pcg LAB HEMETOLOGY METHOD 03/07/2024 10:54 AM [facility] MCHC 32.1 32.0 - 37.0 g/dL LAB HEMETOLOGY METHOD 03/07/2024 10:54 AM [facility] RDW 15.2(H) 11.0 - 15.0 % LAB HEMETOLOGY METHOD 03/07/2024 10:54 AM [facility] Platelets 211 130 - 400 K/mcL LAB HEMETOLOGY METHOD 03/07/2024 10:54 AM [facility] MPV 10.3 7.0 - 11.0 FL LAB HEMETOLOGY METHOD 03/07/2024 10:54 AM [facility] NRBC 0.0 <1.0 % LAB HEMETOLOGY METHOD 03/07/2024 10:54 AM EST [facility] NRBC Absolute 0.00 <0.10 K/mcL LAB HEMETOLOGY METHOD 03/07/2024 10:54 AM EST [facility] Blood Venous blood specimen / Unknown Venipuncture / Unknown 03/07/2024 6:00 AM EST 03/07/2024 10:35 AM EST us Lavonne Irvin MD LAB BLOOD ORDERABLES Final Resul t [facility] [address] [place] [address], documented in this encounter Visit Diagnoses Diagnosis Essential (primary) hypertension Unspecified essential hypertension Acute kidney failure, unspecified (CMS/HCC) Acute kidney failure, unspecified documented in this encounter Care Teams Facilities Director Relationship Specialty Start Date End Date Travis Holbrook MD [address] [place] [address], [phone] PCP - General Family Medicine 02/28/24 documented as of this encounter
--- OUTSIDE RECORDS SUMMARY | 2024-06-26 14:32 | XMS_ITS | Encounter Summary ---
Author Organization [facility] Address [address] [place] [address] Care Team Providers Care Pelt Salter Name Role Phone Travis Holbrook MD Primary Care Provider [phone] Encounter Details Date Type Department Care Team (Late st Contact Info) Description 03/22/2024 Lab Requisition [facility] - Main Lab 299 [facility] [place] [address] Lavonne Irvin MD [address] [place] [address] Essential (primary) hypertension; Acute kidney failure, unspecified [...] unspecified documented in this encounter Care Teams Pelt Salter Relationship Specialty Start Date End Date Travis Holbrook MD [address] [place] [address] [facility] [phone] PCP - General Family Medicine 02/28/24 documented as of this encounter
--- NOTE | 2024-06-26 14:44 | PC.NURSE ---
RN to RN report given to Renée at [facility], all questions answered, patient currently being transferred w/ EMS at this time.
--- NOTE | 2024-06-26 23:59 | PC.NURSE ---
critical blood culture result received from Frederick in the lab, reported to DILIP Rosa on at [facility] where pt was transferred.
== END 2024-06-26 14:45 | disposition short-term general hospital (02) ==
PROVIDERS: Physician Assistant Medical; Emergency Provider Emergency Medicine; PCP Nurse Practitioner Adult Health
DX: S36.113A Laceration of liver, unspecified degree, initial encounter (principal); W18.30XA Fall on same level, unspecified, initial encounter; K55.1 Chronic vascular disorders of intestine; R53.83 Other fatigue; I11.0 Hypertensive heart disease with heart failure; I50.9 Heart failure, unspecified; E03.9 Hypothyroidism, unspecified; J44.9 Chronic obstructive pulmonary disease, unspecified; Z99.81 Dependence on supplemental oxygen; Z03.818 Encounter for observation for suspected exposure to other biological agents ruled out; Z87.891 Personal history of nicotine dependence; Z79.899 Other long term (current) drug therapy; Y93.9 Activity, unspecified; Y92.039 Unspecified place in apartment as the place of occurrence of the external cause; Y99.9 Unspecified external cause status
CPT/HCPCS: 0241U; 36415; 70450; 71260; 72125; 74177; 80053; 81001; 82550; 82803; 82947; 83605; 83880; 84484; 85007; 85025; 85027; 87040; 87077; 87086; 87088; 87186; 87205; 93005; 96365; 96367; 96375; 99285; J0131; J0696; J1335; J2405; P9047; Q9967

== ENCOUNTER → 2024-06-26 10:40 | Outpatient (BNV) | payer MEDICARE, MEDICAID, SELFPAY | PROVIDERS: Emergency Provider Emergency Medicine; PCP Nurse Practitioner Adult Health; Visit Provider Internal Medicine | DX: R41.82 Altered mental status, unspecified (principal) | CPT/HCPCS: 93010 ==

== ENCOUNTER → 2024-06-26 10:40 | Outpatient (BNV) | payer MEDICARE, MEDICAID, SELFPAY | PROVIDERS: Emergency Provider Emergency Medicine; PCP Nurse Practitioner Adult Health; Visit Provider Radiology Diagnostic Radiology | DX: I74.09 Other arterial embolism and thrombosis of abdominal aorta (principal); M47.812 Spondylosis without myelopathy or radiculopathy, cervical region; G31.89 Other specified degenerative diseases of nervous system | CPT/HCPCS: 70450; 71260; 72125; 74177 ==

== ENCOUNTER 2024-08-29 11:34 | Inpatient (IN) | payer MEDICARE, MEDICAID, SELFPAY ==
--- NOTE | ~2024-08-29 | CT_ITS ---
EXAMINATION: CT ABDOMEN PELVIS WITHOUT IV CONTRAST HISTORY: diarrhea, n/v COMPARISON: Comparison is made with the prior examination dated 06/26/2024. TECHNIQUE: CT scan of the abdomen and pelvis was performed without contrast using standard departmental protocol. Coronal and sagittal reformatted images were generated and reviewed. Oral contrast material was not administered at the request of the referring physician. This CT exam was performed with one or more of the following dose reduction techniques: automated exposure control, adjustment of the mA and/or kV according to patient size, use of iterative reconstruction technique. DLP: 684 mGy-cm FINDINGS: LOWER CHEST: The visualized lung bases are clear. There is no pleural effusion. CARDIOVASCULATURE: The heart is normal in size. There is no pericardial effusion. LIVER: The liver is normal in size and contour. The liver has an unremarkable unenhanced appearance. GALLBLADDER / BILE DUCTS: The gallbladder is unremarkable. There is no intra or extrahepatic biliary ductal dilatation. SPLEEN: The spleen is normal in size and has an unremarkable unenhanced appearance. PANCREAS: The pancreas has an unremarkable unenhanced appearance. ADRENAL GLANDS: The right adrenal gland is unremarkable. There is a 1.6 cm left adrenal nodule measuring -9 HU in density, consistent with an adenoma. KIDNEYS/RETROPERITONEUM: Again seen are cysts at the upper pole of the right kidney measuring 2.2 and 2.3 cm. Multiple hyperdense lesions are again noted at the lower pole of the right kidney measuring up to 1.7 cm in size. The left kidney is markedly atrophic and demonstrates a 2.8 cm cyst. LYMPH NODES: No retroperitoneal lymphadenopathy is identified in the abdomen or pelvis. VASCULATURE: There is aneurysmal dilatation of the abdominal aorta measuring up to 3.8 cm in size. MESENTERY/PERITONEUM: No free fluid. No masses. There is no free intraperitoneal gas. STOMACH: The stomach is collapsed which may explain is thick-walled appearance. SMALL BOWEL: The small bowel is normal in caliber. COLON: There may be wall thickening of the splenic flexure of the colon, although evaluation is limited by under distention and lack of intravenous and oral contrast material. APPENDIX: Normal. URINARY BLADDER/PELVIC ORGANS: The urinary bladder is unremarkable. The uterus has an unremarkable unenhanced appearance. BONES / SOFT TISSUES: No suspicious bony or soft tissue abnormalities. CT/CT abdomen pelvis wo IV con IMPRESSION: 1. Possible wall thickening of the splenic flexure of the colon, although evaluation is limited by underdistention and lack of intravenous and oral contrast material. 2. The stomach is collapsed which likely explains is thick-walled appearance. 3. Multiple hyperdense lesions in the right kidney which may represent hyperdense cysts. Ultrasound correlation is recommended. Electronically signed by: Phoenix Santos MD 08/30/2024 08:32 AM EDT
[2024-08-29 11:46] VITALS: BP 138/52; BP 216/80; PULSE 64; PULSE 67; RESP 16; TEMP 36.9; O2SAT 98; BMI 32.9
--- NOTE | 2024-08-29 11:58 | ED.SYNCOPE ---
HPI - Syncope General Chief Complaint: Nausea/Vomiting/Diarrhea Stated Complaint: WEAK,N/V PER EMS Time Seen by Provider: 08/29/24 11:42 Source: patient Mode of arrival: EMS Limitations: no limitations History of Present Illness ED Provider: Dr. Otoniel Kirk HPI narrative: 74-year-old female with a history of hypertension, COPD, rheumatoid arthritis, hypothyroidism mood disorder, fibromyalgia, recurrent history of ESBL UTI who presents emergency department for evaluation of nausea, vomiting, diarrhea and weakness. Patient states this morning she felt very weak. She then had nausea with 2 episodes of vomiting. She states that with the vomiting she also had 1 episode of diarrhea. The patient denied frequency, urgency or dysuria but states that she has had very similar symptoms and presentations in the past and it is often due to recurrence of her ESBL E coli. The patient states that she fell out of bed 3 or 4 days prior. She did not hit her head but did strike her chin. She also states she struck her back. She denies headache, neck pain, chest pain, back pain. Patient's last admission to [facility] was on for peripheral artery disease, lower extremity weakness felt to be secondary to her RA and prednisone use. Patient was also noted to have lower extremity peripheral edema and was treated with Lasix, she had an echocardiogram which revealed an EF of 60-65% with no wall motion abnormalities.. The patient had multiple urine cultures positive for ESBL E coli. Related Data Home Medications ?Medication ?Instructions ?Recorded ?Confirmed bupropion HCl 300 mg 24 hr tablet, 300 mg PO DAILY@0900 08/23/21 05/21/24 extended release duloxetine 60 mg capsule,delayed 60 mg PO DAILY 08/23/21 05/21/24 release levothyroxine 50 mcg tablet 50 mcg PO DAILY@62908/23/21 05/21/24 methotrexate sodium 2.5 mg tablet 10 tab PO MO 08/23/21 05/21/24 omeprazole 40 mg capsule,delayed 40 mg PO DAILY@62908/23/21 05/21/24 release prednisone 1 mg tablet 4 mg PO DAILY 08/23/21 05/21/24 prednisone 5 mg tablet 5 mg PO DAILY PRN arthritis pain 02/16/22 05/21/24 pregabalin 200 mg capsule 200 mg PO BID 01/07/23 05/21/24 folic acid 1 mg tablet 2 mg PO DAILY 10/13/23 05/21/24 bupropion HCl 150 mg 24 hr tablet, 150 mg PO DAILY@0900 11/25/23 05/21/24 extended release acetaminophen 325 mg tablet 650 mg PO Q4H PRN Moderate Pain 03/04/24 05/21/24 (Tylenol) (Scale Score 5-6) lidocaine HCl 4 % topical patch 1 patch topical DAILY PRN Pain 03/04/24 05/21/24 biotin 5,000 mcg sublingual tablet 5,000 mcg sublingual DAILY 05/03/24 05/21/24 ibuprofen 200 mg tablet 600 mg PO Q6H PRN Pain 05/03/24 05/21/24 melatonin 10 mg tablet 10 mg PO BEDTIME PRN Sleep 05/03/24 05/21/24 multivitamin 1 tab PO DAILY 05/03/24 05/21/24 vitamin B complex 1 cap PO DAILY 05/03/24 05/21/24 bisacodyl 5 mg tablet,delayed 5 mg PO DAILY PRN Constipation 05/21/24 05/21/24 release cholecalciferol (vitamin D3) 25 25 mcg PO DAILY 05/21/24 05/21/24 mcg (1,000 unit) capsule (Vitamin D3) Previous Rx's ?Medication ?Instructions ?Recorded ondansetron 4 mg disintegrating 4 mg PO Q8H PRN nausea and 08/02/23 tablet vomiting #10 tabs atenolol 25 mg tablet 25 mg PO DAILY #30 tabs 10/17/23 doxazosin 2 mg tablet 2 mg PO BEDTIME #30 tabs 10/17/23 furosemide 20 mg tablet 20 mg PO DAILY #30 tabs 10/17/23 oxycodone 20 mg tablet 20 mg PO Q4H PRN pain (scale score 02/27/24 7-10) #20 tabs Allergies Allergy/AdvReac Type Severity Reaction Status Date / Time lisinopril [LISINOPRIL] Allergy Severe ANAPHYLAXIS Verified 08/29/24 11:49 Sulfa (Sulfonamide Allergy Intermediate RASH Verified 08/29/24 11:49 Antibiotics) [SULFA (SULFONAMIDE ANTIBIOTICS)] tramadol [TRAMADOL] Allergy Intermediate RASH Verified 08/29/24 11:49 Oxsosmr-VGI-QcQ Reductase Allergy Rash Verified 08/29/24 11:49 Inhibitor [Qzuucvz-Tkd-Uwt Reductase Inhibitor] hydrochlorothiazide [HCTZ] AdvReac Unknown ABNORMAL Verified 08/29/24 11:49 LABS? 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 She lives at home alone. She denies tobacco, alcohol and drug use. Medical History Bacteriuria Urinary tract infection due to extended-spectrum beta lactamase (ESBL) producing Escherichia coli History of ESBL E. coli infection Osteomyelitis COPD (chronic obstructive pulmonary disease) Rheumatoid lung Hypothyroidism Congestive heart failure Fibromyalgia HTN (hypertension) Depression Rheumatoid arthritis Surgical History Hx of prior ablation treatment Knee joint replacement status Family History Family History Father No problems noted. Other Heart disease Social History Social History Household Members: None Household Members Other:: 0 Housing: House Do you presently have visiting nurse or other home services: Yes Unable to assess alcohol history related to: Unable to respond Alcohol intake: never Patient Tobacco Use Status: Former Tobacco user Tobacco use type: Cigarette Smoked in Last 30 Days: No e-Cigarette/Vaping Use: Never Used Second Hand Smoke Exposure: No Use of substances other than those prescribed or required for medical reasons: No Advance Directives: Yes Advance Directives on File: Yes Advance Directives Date on File: 09/29/23 Do you have a plan to hurt others: No Plan service: No Physical Exam Vital Signs: Vital Signs: Last Vital Signs Temp 98.6 F 08/29/24 15:31 Pulse 78 08/29/24 15:31 Resp 18 08/29/24 15:31 BP 144/70 H 08/29/24 15:31 Pulse Ox 98 08/29/24 15:31 O2 Del Method Room Air 08/29/24 15:31 BMI result Body Mass Index 32.9 Vital signs revealed an elevated blood pressure of 216/80 otherwise unremarkable. Exam: General: Awake, alert in no distress Head: Normocephalic, atraumatic, the patient does have an area of ecchymosis to her left lower jaw with no tenderness palpation of this area. EENT: PERRL, Lids normal, sclera normal, conjunctiva normal, nose normal , ears normal, throat without erythema or exudates Neck: Supple, no adenopathy Lung: breath sounds symmetric, no wheezing, rales or rhonchi Chest: symmetric movement, nontender Heart: regular rate and rhythm, normal S1, S2 no murmurs or rubs Abdomen: soft, non-tender, nondistended, normal bowel sounds Back: no vertebral tenderness, no CVAT , patient has ecchymosis to her back consistent with her recent fall with no tenderness with palpation over the area of ecchymosis Extremities: no deformities, moves all extremities symmetrically, patient has bilateral trace to 1+ pitting edema which is symmetric Neuro: Awake, alert, oriented, normal speech, cranial nerves intact, moves all extremities symmetrically Psych: Pleasant, cooperative Medications Administered Discontinued Medications Generic Name Dose Route Start Last Admin Trade Name Freq PRN Reason Stop Dose Admin Diphenhydramine HCl 25 mg 08/29/24 12:53 08/29/24 13:05 Diphenhydramine Hcl 50 Mg/Ml Vial IVPUSH 08/29/24 12:54 25 mg ONCE ONE Administration Ertapenem 1 gm 08/29/24 14:36 08/29/24 15:26 Ertapenem Sodium 1 Gm Vial IVPUSH 08/29/24 14:37 1 gm ONCE ONE Administration Hydromorphone HCl 1 mg 08/29/24 14:40 08/29/24 15:17 Hydromorphone Hcl 1 Mg/Ml Syringe IVPUSH 08/29/24 14:41 1 mg ONCE STA Administration Protocol Sodium Chloride 1,000 mls @ 999 mls/hr 08/29/24 11:54 08/29/24 13:30 Ns IV 08/29/24 12:54 Infused .Q1H1M STA Infusion Metoclopramide HCl 10 mg 08/29/24 12:53 08/29/24 13:08 Metoclopramide Hcl 10 Mg/2 Ml Vial IVPUSH 08/29/24 12:54 10 mg ONCE STA Administration Ondansetron HCl 4 mg 08/29/24 11:54 08/29/24 12:18 Ondansetron Hcl 4 Mg/2 Ml Vial IVPUSH 08/29/24 11:55 4 mg ONCE ONE Administration Ondansetron HCl 4 mg 08/29/24 14:24 08/29/24 15:17 Ondansetron Hcl 4 Mg/2 Ml Vial IVPUSH 08/29/24 14:25 4 mg ONCE ONE Administration Oxycodone HCl 20 mg 08/29/24 12:03 08/29/24 13:50 Oxycodone Hcl Immed Release 5 Mg Tablet PO 08/29/24 12:04 Not Given ONCE ONE Medical Decision Making Medical Decision Making MDM Narrative: ED bed 2 Alexandrea Renee 74-year-old female with a history of hypertension, COPD, rheumatoid arthritis, hypothyroidism mood disorder, fibromyalgia, recurrent history of ESBL UTI who presents emergency department for evaluation of nausea, vomiting, diarrhea and weakness. Patient states this morning she felt very weak. She then had nausea with 2 episodes of vomiting. She states that with the vomiting she also had 1 episode of diarrhea. The patient denied frequency, urgency or dysuria but states that she has had very similar symptoms and presentations in the past and it is often due to recurrence of her ESBL E coli. vital signs revealed an elevated blood pressure otherwise unremarkable. Patient does have bruising on her left chin on her back consistent with a recent fall otherwise exam was unremarkable. CBC was normal. Lactic acid was normal. Urinalysis positive for blood, protein, leukocyte esterase and nitrates. Microscopic revealed 3-5 RBCs, greater than 50 WBCs and 4+ bacteria. She had similar microscopic evaluations in the past and grew ESBL E coli. Patient was treated with NS x1 L, Zofran 4 mg IV x2, Reglan 10 mg IV and Benadryl 25 mg IV with some improvement of her symptoms. I also ordered ertapenem 1 g IV. Please text or call me to discuss admission. Differential diagnosis: Includes but is not limited to viral syndrome, gastroenteritis, anemia, electrolyte abnormalities Course: My independent interpretation patient's laboratory evaluation is as follows: CBC was normal with a WBC of 4800. Chloride elevated 110. AST and ALT elevated 60 and 42. Alk-phos elevated 158. Lipase was normal. Lactic acid was normal at 1.7. Urinalysis was positive for blood, protein, leukocyte esterase and nitrates. Microscopic revealed 3-5 RBCs, greater than 50 WBCs and 4+ bacteria. The patient continued to have persistent nausea and vomiting. She was treated with Zofran 4 mg IV x2, Reglan 10 mg IV, and Benadryl 25 mg IV. Given the patient's symptoms and her positive urinalysis, I am concerned that she may have recurrence of her ESBL E coli therefore I ordered ertapenem 1 g IV. The patient is having lower pelvic pain as well as right leg pain, she is not able to take her oral oxycodone that she normally takes for pain therefore she was given Dilaudid 1 mg IV. 15:45 I did discuss the patient's presentation over tiger text with the covering hospitalist physician geological survey field assistant,Candie Boyce who accepted the patient onto the hospitalist service. Admission/Observation Consideration of admission/observation: Escalation of care including admission/observation considered (Yes) Lab Data 08/29/24 12:09 08/29/24 12:09 Labs: Lab Results 08/29/24 08/29/24 Range/Units 12:09 14:01 WBC 4.8 (4.8-10.8) X10*3/uL RBC 4.48 (4.20-5.50) X10*6/uL Hgb 13.5 (12.0-16.0) g/dl Hct 41.2 (37.0-47.0) % MCV 92.0 (80.0-98.0) fL MCH 30.1 (27.0-33.0) pg MCHC 32.8 (31.0-35.0) g/dl RDW 15.1 (11.0-16.0) % Plt Count 255 D (160-400) X10*3/uL MPV 10.2 (9.4-12.3) fL Immature Gran % (Auto) 0.6 H (0.0-0.4) % Neut % (Auto) 45.1 (45-73) % Lymph % (Auto) 47.2 H (20-40) % [place] % (Auto) 4.0 (2-11) % Eos % (Auto) 2.5 (0-4) % Baso % (Auto) 0.6 (0-2) % Lymph # (Auto) 2.3 (1.2-4.9) X10*3/uL [place] # (Auto) 0.2 (0.1-1.2) X10*3/uL Eos # (Auto) 0.1 (0.0-0.4) X10*3/uL Baso # (Auto) 0.0 (0.0-0.2) X10*3/uL Abs Immat Gran (auto) 0.03 (0.00-0.03) X10*3/uL Absolute Neuts (auto) 2.2 (2.0-8.3) x10*3/uL Absolute Nucleated RBC 0.000 (0.0-0.012) X10*3/uL Nucleated RBC % (auto) 0.0 (0.0-0.2) /100WBC Sodium 138 (135-145) mmol/L Potassium 5.1 D (3.3-5.1) mmol/L Chloride 110 H (96-108) mmol/L Carbon Dioxide 24 (22-29) mmol/L Anion Gap 9 L (12-20) BUN 16 (9-16) mg/dL Creatinine 1.05 (0.5-1.4) mg/dL Estim Creat Clear Calc 57.4 Estimated GFR 52 Random Glucose 114 (60-115) mg/dL Lactic Acid 1.7 (0.5-2.0) mmol/L Calcium 9.4 D (8.4-10.2) mg/dL Total Bilirubin 0.4 (0.0-1.0) mg/dL AST 60 H (5-31) U/L ALT 42 H (0-31) U/L Alkaline Phosphatase 158 H (39-117) U/L Total Protein 8.0 (6.5-8.0) g/dL Albumin 3.7 (3.5-5.0) g/dL Lipase 15 (8-78) U/L Urine Color Yellow Urine Appearance Cloudy Urine pH 8.5 (5.0-9.0) Ur Specific [place] 1.015 (1.005-1.025) Urine Protein 30 (1+) H (Neg-Trace) mg/dL Urine Glucose (UA) Negative (Negative) mg/dL Urine Ketones Negative (Negative) mg/dL Urine Blood Moderate (2+) H (Negative) Urine Nitrite Positive H (Negative) Ur Leukocyte Esterase Moderate (2+) H (Negative) Urine RBC 3-5 H (0-2) /HPF Urine WBC >50 H (0-5) /HPF Ur Squamous Epith Cells 0-2 (0-2) /HPF Urine Bacteria 4+ (None Seen) Hyaline Casts 3-5 (0-2) /LPF External Record Review External record reviewed: Inpatient record Chronic Conditions Patient?s care impacted by: Other (Rheumatoid arthritis, ESBL E coli) Discharge Plan Discharge Patient Disposition: Admitted As Inpatient Print Language: Sami
[2024-08-29 12:14] LABS: MANUAL DIFF FLAG NO
[2024-08-29 12:17] LABS: Basophils Percent Auto 0.6 % (0-2); Eosinophils Absolute Auto 0.1 X10*3/uL (0.0-0.4); Eosinophils Percent Auto 2.5 % (0-4); Hematocrit 41.2 % (37.0-47.0); Hemoglobin 13.5 g/dl (12.0-16.0); Imm Gran Abs Auto 0.03 X10*3/uL (0.00-0.03); Imm Gran Pct Auto 0.6 % (0.0-0.4); Lymphocytes Absolute Auto 2.3 X10*3/uL (1.2-4.9); Lymphocytes Percent Auto 47.2 % (20-40); Mean Corpuscular HGB Conc 32.8 g/dl (31.0-35.0); Mean Corpuscular Hemoglobin 30.1 pg (27.0-33.0); Mean Platelet Volume 10.2 fL (9.4-12.3); Monocytes Absolute Auto 0.2 X10*3/uL (0.1-1.2); Neutrophils Absolute Auto 2.2 x10*3/uL (2.0-8.3); Neutrophils Percent Auto 45.1 % (45-73); Platelet Count 255 X10*3/uL (160-400); Red Blood Count 4.48 X10*6/uL (4.20-5.50); Red Cell Distribution Width 15.1 % (11.0-16.0); White Blood Count 4.8 X10*3/uL (4.8-10.8)
[2024-08-29] MEDS: ondansetron HCL 4 MG/2 ML VIAL IVPUSH ×2 (12:18→15:17)
[2024-08-29] MEDS: 0.9 % Sodium Chloride 1,000 ML 999 ML IV (12:18)
[2024-08-29 12:32] LABS: Lactic Acid 1.7 mmol/L (0.5-2.0)
[2024-08-29 12:36] LABS: Alanine Aminotransferase 42 U/L (0-31); Albumin Level 3.7 g/dL (3.5-5.0); Alkaline Phosphatase 158 U/L (39-117); Anion Gap 9 (12-20); Aspartate Amino Transferase 60 U/L (5-31); Bilirubin Total 0.4 mg/dL (0.0-1.0); Blood Urea Nitrogen 16 mg/dL (9-16); Calcium 9.4 mg/dL (8.4-10.2); Carbon Dioxide 24 mmol/L (22-29); Chloride 110 mmol/L (96-108); Creatinine Clr Calc Pharmacy 57.4; Estimated Glomerular Filt Rate 52; Glucose Random 114 mg/dL (60-115); Lipase 15 U/L (8-78); Potassium 5.1 mmol/L (3.3-5.1); Sodium 138 mmol/L (135-145)
[2024-08-29] MEDS: diphenhydrAMINE HCL 50 MG/ML VIAL 25 MG IVPUSH (13:05)
[2024-08-29] MEDS: Metoclopramide HCl 10 MG/2 ML VIAL IVPUSH (13:08)
[2024-08-29 14:09] LABS: Appearance Urine Cloudy; Color Urine Yellow; Glucose Urine UA Negative (Negative); Leukocyte Esterase Urine Moderate (2+) (Negative); Nitrite Urine Positive (Negative); PH 8.5 (5.0-9.0); Specific Gravity - Urine 1.015 (1.005-1.025); UMIC TRIGGER UACC YES; Urine Blood Moderate (2+) (Negative); Urine Ketones Negative (Negative); Urine Protein 30 (1+) mg/dL (Neg-Trace)
[2024-08-29 14:20] LABS: Bacteria Urine 4+ (None Seen); Squamous Epithelial Cell Urine 0-2 /HPF (0-2); UACC Culture Trigger YES; WBC Urine >50 /HPF (0-5)
[2024-08-29] MEDS: HYDROmorphone HCl 1 MG/ML SYRINGE IVPUSH (15:17)
[2024-08-29] MEDS: Ertapenem Sodium 1 GM VIAL IVPUSH (15:26)
[2024-08-29 15:31] VITALS: BP 144/70; PULSE 78; RESP 18; TEMP 37; O2SAT 98
--- NOTE | 2024-08-29 16:18 | PM.IMHP ---
History of Present Illness Date of Service: 08/29/24 Chief Complaint: n/v diarrhea 74F PMH ESBL ecoli with bacteremia 06/2024, rheumatoid arthritis on methotrexate and chronic prednisone, hypertension, chronic lymphedema, peripheral vascular disease, COPD, BLADIMIR occlusion, presented with nausea vomiting and diarrhea. Symptoms began day of presentation. Diarrhea is watery, nonbloody. Minimal abdominal pain, some suprapubic fullness but denies dysuria, denies fever or chills. In ED noted to have positive urinalysis. Review of Systems Review of Systems: Yes all other systems are reviewed and are negative [facility] Medical History Bacteriuria Urinary tract infection due to extended-spectrum beta lactamase (ESBL) producing Escherichia coli History of ESBL E. coli infection Osteomyelitis COPD (chronic obstructive pulmonary disease) Rheumatoid lung Hypothyroidism Congestive heart failure Fibromyalgia HTN (hypertension) Depression Rheumatoid arthritis Family History Father No problems noted. Other Heart disease Surgical History Hx of prior ablation treatment Knee joint replacement status Social History Household Members: None Household Members Other:: 0 Housing: House Do you presently have visiting nurse or other home services: Yes Unable to assess alcohol history related to: Unable to respond Alcohol intake: never Patient Tobacco Use Status: Former Tobacco user Tobacco use type: Cigarette Smoked in Last 30 Days: No e-Cigarette/Vaping Use: Never Used Second Hand Smoke Exposure: No Use of substances other than those prescribed or required for medical reasons: No Advance Directives: Yes Advance Directives on File: Yes Advance Directives Date on File: 09/29/23 Do you have a plan to hurt others: No Plan service: No Meds Allergies Allergy/AdvReac Type Severity Reaction Status Date / Time lisinopril [LISINOPRIL] Allergy Severe ANAPHYLAXIS Verified 08/29/24 11:49 Sulfa (Sulfonamide Allergy Intermediate RASH Verified 08/29/24 11:49 Antibiotics) [SULFA (SULFONAMIDE ANTIBIOTICS)] tramadol [TRAMADOL] Allergy Intermediate RASH Verified 08/29/24 11:49 Fefpshu-VZK-BnK Reductase Allergy Rash Verified 08/29/24 11:49 Inhibitor [Ljuokwk-Qal-Atz Reductase Inhibitor] hydrochlorothiazide [HCTZ] AdvReac Unknown ABNORMAL Verified 08/29/24 11:49 LABS? Home Medications ?Medication ?Instructions ?Recorded ?Confirmed ?Last Taken ?Type bupropion HCl 300 mg 24 hr tablet, 300 mg PO DAILY@0900 08/23/21 05/21/24 02/18/24 History extended release duloxetine 60 mg capsule,delayed 60 mg PO DAILY 08/23/21 05/21/24 02/18/24 History release levothyroxine 50 mcg tablet 50 mcg PO DAILY@0608/23/21 05/21/24 02/18/24 History methotrexate sodium 2.5 mg tablet 10 tab PO MO 08/23/21 05/21/24 05/19/24 History omeprazole 40 mg capsule,delayed 40 mg PO DAILY@0608/23/21 05/21/24 02/18/24 History release prednisone 1 mg tablet 4 mg PO DAILY 08/23/21 05/21/24 02/18/24 History prednisone 5 mg tablet 5 mg PO DAILY PRN arthritis pain 02/16/22 05/21/24 11/24/23 12:00 History pregabalin 200 mg capsule 200 mg PO BID 01/07/23 05/21/24 02/18/24 History folic acid 1 mg tablet 2 mg PO DAILY 10/13/23 05/21/24 02/18/24 History bupropion HCl 150 mg 24 hr tablet, 150 mg PO DAILY@0900 11/25/23 05/21/24 02/18/24 History extended release acetaminophen 325 mg tablet 650 mg PO Q4H PRN Moderate Pain 03/04/24 05/21/24 Unknown History (Tylenol) (Scale Score 5-6) lidocaine HCl 4 % topical patch 1 patch topical DAILY PRN Pain 03/04/24 05/21/24 Unknown History biotin 5,000 mcg sublingual tablet 5,000 mcg sublingual DAILY 05/03/24 05/21/24 Unknown History ibuprofen 200 mg tablet 600 mg PO Q6H PRN Pain 05/03/24 05/21/24 Unknown History melatonin 10 mg tablet 10 mg PO BEDTIME PRN Sleep 05/03/24 05/21/24 Unknown History multivitamin 1 tab PO DAILY 05/03/24 05/21/24 Unknown History vitamin B complex 1 cap PO DAILY 05/03/24 05/21/24 Unknown History bisacodyl 5 mg tablet,delayed 5 mg PO DAILY PRN Constipation 05/21/24 05/21/24 Unknown History release cholecalciferol (vitamin D3) 25 25 mcg PO DAILY 05/21/24 05/21/24 Unknown History mcg (1,000 unit) capsule (Vitamin D3) furosemide 40 mg tablet 60 mg PO DAILY 08/29/24 Unknown History Physical Exam Vital Signs and Narrative: Vital Signs: Last Vital Signs Temp 98.6 F 08/29/24 15:31 Pulse 78 08/29/24 15:31 Resp 18 08/29/24 15:31 BP 144/70 H 08/29/24 15:31 Pulse Ox 98 08/29/24 15:31 O2 Del Method Room Air 08/29/24 15:31 BMI result Body Mass Index 32.9 General: AO X 3, no acute distress Resp: CTA bilateral, no accessory muscles used CVS: S1,S2,RRR, bilateral le lymphedema GI: soft, non tender, non distended Neuro: motor grossly intact, alert Psych: appropriate affect, appropriate insight Results Labs 08/29/24 12:09 08/29/24 12:09 Labs: Laboratory Results - last 24 hr 08/29/24 08/29/24 12:09 14:01 MCV 92.0 MCH 30.1 MCHC 32.8 RDW 15.1 Plt Count 255 D MPV 10.2 Immature Gran % (Auto) 0.6 H Neut % (Auto) 45.1 Lymph % (Auto) 47.2 H [place] % (Auto) 4.0 Eos % (Auto) 2.5 Baso % (Auto) 0.6 Lymph # (Auto) 2.3 [place] # (Auto) 0.2 Eos # (Auto) 0.1 Baso # (Auto) 0.0 Abs Immat Gran (auto) 0.03 Absolute Neuts (auto) 2.2 Absolute Nucleated RBC 0.000 Nucleated RBC % (auto) 0.0 Anion Gap 9 L Estim Creat Clear Calc 57.4 Estimated GFR 52 Random Glucose 114 Lactic Acid 1.7 Calcium 9.4 D Total Bilirubin 0.4 AST 60 H ALT 42 H Alkaline Phosphatase 158 H Total Protein 8.0 Albumin 3.7 Lipase 15 Urine Color Yellow Urine Appearance Cloudy Urine pH 8.5 Ur Specific [place] 1.015 Urine Protein 30 (1+) H Urine Glucose (UA) Negative Urine Ketones Negative Urine Blood Moderate (2+) H Urine Nitrite Positive H Ur Leukocyte Esterase Moderate (2+) H Urine RBC 3-5 H Urine WBC >50 H Ur Squamous Epith Cells 0-2 Urine Bacteria 4+ Hyaline Casts 3-5 Assessment and Plan (1) Nausea & vomiting: Status: Acute Plan 74F PMH ESBL ecoli with bacteremia 06/2024, rheumatoid arthritis on methotrexate and chronic prednisone, hypertension, chronic lymphedema, peripheral vascular disease, COPD, BLADIMIR occlusion, presented with nausea vomiting and diarrhea Diarrhea, nausea and vomit Concern for UTI with ESBL Ecoli given recent history of bacteremia, will treat with iv meropenem follow up cultures check ct abd, stool studies ra on chronic steroids stress dose steroids copd stable dvt prophylaxis - lovenox full code given history of sepsis adn mdr organisms, expected to require atleast 2 midnights inpatient Quality Stroke Does the patient have a stroke diagnosis?: No VTE Prior VTE?: No VTE Risk Level:: Medical - moderate - high VTE Device Contraindication: Treatment Not Indicated VTE Drug Contraindication: N/A - Med Ordered
--- OUTSIDE RECORDS SUMMARY | 2024-08-29 17:39 | XMS_ITS | Encounter Summary ---
Author Organization [facility] Address [address] [place] [address] Care Team Providers Care Casket Assembler Metal Name Role Phone Travis Holbrook MD Primary Care Provider [phone] Encounter Details Date Type Department Care Team (Late st Contact Info) Description 07/26/2024 Lab Requisition [facility] - Main Lab [address] [facility] [place] [address] Travis Holbrook MD [address] [place] [address] [address] [place], [phone] Muscle weakness (generalized); Emphysema, unspecified (CMS/HCC V24, CMS/HCC V28) Social History Tobacco Use Types Packs/Day Years [...] as of this encounter Visit Diagnoses Diagnosis Muscle weakness (generalized) Emphysema, unspecified (CMS/HCC V24, CMS/HCC V28) documented in this encounter Care Teams Casket Assembler Metal Relationship Specialty Start Date End Date Travis Holbrook MD [address] [facility] [address] [place], [phone] PCP - General Family Medicine 02/28/24 documented as of this encounter
[2024-08-29 18:08] VITALS: BP 144/70; PULSE 72; RESP 12; TEMP 36.6; O2SAT 98
[2024-08-29] MEDS: HYDROmorphone HCl 0.5 MG/0.5 ML SYRINGE IVPUSH ×2 (18:12→21:48)
[2024-08-29] MEDS: methylPREDNISolone Sod Succ 40 MG/ML VIAL IVPUSH (18:12)
--- NOTE | 2024-08-29 18:53 | PHA.MEDREC ---
Addendum entered by Jose Schilling PharmD 08/29/24 19:07: [email or web address] Original Note: Pharmacy Consult ? Medication Reconciliation Pharmacy has completed the medication reconciliation. Spoke with pt and she confirmed her medications. Pt confirmed she is taking 2 tabs of Atenolol 25mg (50mg) QD now and states she noticed her BP has been high recently and spoke with her provider in the last few days to change that. She confirmed she has an over abundance of the Bupropion 150mg tabs and 300mg tabs at home and is still taking them. She confirmed she is taking Furosemide 20mg tabs and taking 3 tabs daily (TDD 60mg). She confirmed she now takes 10 tabs of the Methotrexare 2.5mg tabs on Saturdays and took them this past Monday.
[2024-08-29 20:09] VITALS: BMI 33.9
[2024-08-29 20:40] VITALS: BP 143/63; PULSE 67; RESP 15; TEMP 36.8; O2SAT 96
[2024-08-29 21:45] VITALS: BP 164/94
[2024-08-29] MEDS: Pregabalin 200 MG CAPSULE PO (21:45)
[2024-08-29] MEDS: Doxazosin Mesylate 2 MG TABLET PO (21:45)
[2024-08-29] MEDS: 0.9 % Sodium Chloride Flush 3 ML SYRINGE IVFLUSH (23:09)
[2024-08-29 23:10] VITALS: BP 162/90; PULSE 86; RESP 18; TEMP 36.4; O2SAT 98
[2024-08-30] MEDS: HYDROmorphone HCl 0.5 MG/0.5 ML SYRINGE IVPUSH ×2 (01:11→05:21)
[2024-08-30] MEDS: Melatonin 3 MG TABLET 6 MG PO ×2 (01:18→21:53)
[2024-08-30 01:41] VITALS: RESP 18
[2024-08-30 03:23] VITALS: BP 166/74; PULSE 100; RESP 20; TEMP 36.6; O2SAT 95
[2024-08-30] MEDS: Acetaminophen 325 MG TABLET 650 MG PO ×2 (04:41→21:54)
[2024-08-30] MEDS: oxyCODONE HCl Immed Release 15 MG TABLET PO (06:19)
[2024-08-30] MEDS: Levothyroxine Sodium 50 MCG TABLET PO (06:19)
[2024-08-30] MEDS: Omeprazole 40 MG CAPSULE.DR PO (06:19)
[2024-08-30 06:23] LABS: Anion Gap 13 (12-20); Blood Urea Nitrogen 22 mg/dL (9-16); Carbon Dioxide 23 mmol/L (22-29); Chloride 109 mmol/L (96-108); Creatinine Clr Calc Pharmacy 61.1; Estimated Glomerular Filt Rate 55; Glucose Random 151 mg/dL (60-115); Potassium 3.9 mmol/L (3.3-5.1); Sodium 141 mmol/L (135-145)
[2024-08-30 06:30] LABS: Hematocrit 37.7 % (37.0-47.0); Hemoglobin 12.4 g/dl (12.0-16.0); Mean Corpuscular HGB Conc 32.9 g/dl (31.0-35.0); Mean Corpuscular Volume 91.3 fL (80.0-98.0); Mean Platelet Volume 10.5 fL (9.4-12.3); Platelet Count 240 X10*3/uL (160-400); Red Blood Count 4.13 X10*6/uL (4.20-5.50); Red Cell Distribution Width 14.9 % (11.0-16.0)
[2024-08-30 07:52] VITALS: BP 150/67; PULSE 68; RESP 16; TEMP 36.1; O2SAT 96
[2024-08-30] MEDS: buPROPion HCl XL 300 MG TAB.ER.24H PO (08:04)
[2024-08-30] MEDS: DULoxetine HCl 60 MG CAPSULE.DR PO (08:04)
[2024-08-30] MEDS: atenoloL 50 MG TABLET PO (08:04)
[2024-08-30] MEDS: Pregabalin 200 MG CAPSULE PO ×2 (08:04→21:52)
[2024-08-30] MEDS: buPROPion HCl XL 150 MG TAB.ER.24H PO (08:04)
[2024-08-30] MEDS: Folic Acid 1 MG TABLET 2 MG PO (08:04)
[2024-08-30] MEDS: 0.9 % Sodium Chloride Flush 3 ML SYRINGE IVFLUSH ×3 (08:05→22:07)
[2024-08-30] MEDS: Furosemide 20 MG TABLET 60 MG PO (08:05)
[2024-08-30] MEDS: Enoxaparin Sodium 40 MG/0.4 ML SYRINGE SUBCUT (08:06)
[2024-08-30] MEDS: oxyCODONE HCl Immed Release 5 MG TABLET 20 MG PO ×4 (09:06→21:51)
--- NOTE | 2024-08-30 09:10 | P.PNIM_ITS ---
Subjective Subjective Date of Service: 08/30/24 Interval History: pain... n/v improved Physical Exam 2 Vital Signs: Vital Signs: Last Vital Signs Temp 96.9 F 08/30/24 07:52 Pulse 68 08/30/24 07:52 Resp 16 08/30/24 07:52 BP 150/67 H 08/30/24 07:52 Pulse Ox 96 08/30/24 07:52 O2 Del Method Room Air 08/30/24 07:52 O2 Flow Rate 2 08/30/24 03:23 BMI result Body Mass Index 33.9 General: AO X 3, n o acute distress R amilcar: CTA bilatera l, no accessory mu scles used CVS: S1 ,S2,RRR, bilateral le lymphedema GI: soft, non tender, non distended Marnie ro: motor grossly intact, alert Psy ch: appropriate af fect, appropriate insight Objective Data Active Medications Acetaminophen (Acetaminophen 325 Mg Tablet) 650 mg PO Q6H PRN PRN Reason: Pain, Mild 1-3,fever,headache Last Admin: 08/30/24 04:41 Dose: 650 mg Documented By: ALICE Atenolol (Atenolol 50 Mg Tablet) 50 mg PO DAILY [facility]; Protocol Last Admin: 08/30/24 08:04 Dose: 50 mg Documented By: LOLA Bupropion HCl (Bupropion Hcl Xl 300 Mg Tab.Er.24h) 300 mg PO DAILY@0900 [facility] Last Admin: 08/30/24 08:04 Dose: 300 mg Documented By: LOLA Bupropion HCl (Bupropion Hcl Xl 150 Mg Tab.Er.24h) 150 mg PO DAILY@0900 [facility] Last Admin: 08/30/24 08:04 Dose: 150 mg Documented By: LOLA Calcium Carbonate (Calcium Carbonate 750 Mg Tab.Chew) 750 mg PO Q4H PRN PRN Reason: Heartburn Doxazosin Mesylate (Doxazosin Mesylate 2 Mg Tablet) 2 mg PO BEDTIME [facility]; Protocol Last Admin: 08/29/24 21:45 Dose: 2 mg Documented By: ERICK Duloxetine HCl (Duloxetine Hcl 60 Mg Capsule.Dr) 60 mg PO DAILY [facility] Last Admin: 08/30/24 08:04 Dose: 60 mg Documented By: LOLA Enoxaparin Sodium (Enoxaparin Sodium 40 Mg/0.4 Ml Syringe) 40 mg SUBCUT Q24H [facility] Last Admin: 08/30/24 08:06 Dose: 40 mg Documented By: LOLA Fluticasone Propionate (Fluticasone Propionate Nasal 16 Gm [place]) 1 spray NOSTRIL-B BID PRN PRN Reason: Allergy Symptoms Folic Acid (Folic Acid 1 Mg Tablet) 2 mg PO DAILY [facility] Last Admin: 08/30/24 08:04 Dose: 2 mg Documented By: LOLA Furosemide (Furosemide 20 Mg Tablet) 60 mg PO DAILY [facility]; Protocol Last Admin: 08/30/24 08:05 Dose: 60 mg Documented By: LOLA Levothyroxine Sodium (Levothyroxine Sodium 50 Mcg Tablet) 50 mcg PO DAILY@629 [facility] Last Admin: 08/30/24 06:19 Dose: 50 mcg Documented By: ALICE Magnesium Hydroxide (Milk Of Magnesia 30 Ml Oral.Susp) 30 ml PO DAILY PRN PRN Reason: Constipation Melatonin (Melatonin 3 Mg Tablet) 6 mg PO BEDTIME PRN PRN Reason: Insomnia Last Admin: 08/30/24 01:18 Dose: 6 mg Documented By: ALICE Meropenem (Meropenem 1 Gm Vial) 1 gm IVPUSH Q8H [facility] Methotrexate (Methotrexate Sodium 2.5 Mg Tablet) 25 mg PO SA [facility] Methylprednisolone Sodium Succinate (Methylprednisolone Sod Succ 40 Mg/Ml Vial) 40 mg IVPUSH Q24H [facility] Last Admin: 08/29/24 18:12 Dose: 40 mg Documented By: JOHNNY-CLAUDIA Multivitamins/Vitamin C (Multivitamin Tablet) 1 tab PO DAILY [facility] Last Admin: 08/30/24 08:06 Dose: Not Given Documented By: LOLA Non-Admin Reason: Patient Refused Omeprazole (Omeprazole 40 Mg Capsule.) 40 mg PO DAILY@629 [facility] Last Admin: 08/30/24 06:19 Dose: 40 mg Documented By: ALICE Oxycodone HCl (Oxycodone Hcl Immed Release 5 Mg Tablet) 20 mg PO Q4H PRN PRN Reason: pain (scale score 7-10) Last Admin: 08/30/24 09:06 Dose: 20 mg Documented By: LOLA Pregabalin (Pregabalin 200 Mg Capsule) 200 mg PO BID [facility] Last Admin: 08/30/24 08:04 Dose: 200 mg Documented By: LOLA Sodium Chloride (0.9 % Sodium Chloride Flush 3 Ml Syringe) 3 ml IVFLUSH QSHIFT [facility] Last Admin: 08/30/24 08:05 Dose: 3 ml Documented By: LOLA Labs 08/30/24 05:50 08/30/24 05:50 Labs: Laboratory Results - last 24 hr 08/29/24 08/29/24 08/30/24 12:09 14:01 05:50 MCV 92.0 91.3 MCH 30.1 30.0 MCHC 32.8 32.9 RDW 15.1 14.9 Plt Count 255 D 240 MPV 10.2 10.5 Immature Gran % (Auto) 0.6 H Neut % (Auto) 45.1 Lymph % (Auto) 47.2 H [place] % (Auto) 4.0 Eos % (Auto) 2.5 Baso % (Auto) 0.6 Lymph # (Auto) 2.3 [place] # (Auto) 0.2 Eos # (Auto) 0.1 Baso # (Auto) 0.0 Abs Immat Gran (auto) 0.03 Absolute Neuts (auto) 2.2 Absolute Nucleated RBC 0.000 0.000 Nucleated RBC % (auto) 0.0 0.0 Anion Gap 9 L 13 Estim Creat Clear Calc 57.4 61.1 Estimated GFR 52 55 Random Glucose 114 151 H Lactic Acid 1.7 Calcium 9.4 D 9.0 Magnesium 2.0 Total Bilirubin 0.4 AST 60 H ALT 42 H Alkaline Phosphatase 158 H Total Protein 8.0 Albumin 3.7 Lipase 15 Urine Color Yellow Urine Appearance Cloudy Urine pH 8.5 Ur Specific [place] 1.015 Urine Protein 30 (1+) H Urine Glucose (UA) Negative Urine Ketones Negative Urine Blood Moderate (2+) H Urine Nitrite Positive H Ur Leukocyte Esterase Moderate (2+) H Urine RBC 3-5 H Urine WBC >50 H Ur Squamous Epith Cells 0-2 Urine Bacteria 4+ Hyaline Casts 3-5 Assessment and Plan (1) UTI due to extended-spectrum beta lactamase (ESBL) producing Escherichia coli: Status: Acute Plan 74F PMH ESBL ecoli with bacteremia 06/2024, rheumatoid arthritis on methotrexate and chronic prednisone, hypertension, chronic lymphedema, peripheral vascular disease, COPD, BLADIMIR occlusion, presented with nausea vomiting and diarrhea Diarrhea, nausea and vomit Concern for UTI with ESBL Ecoli given recent history of bacteremia, treating with iv meropenem follow up cultures check ct abd unremarkable follow up stool studies ra on chronic steroids stress dose steroids copd stable mood disorder continue buproprion duloxetine htn atenolol dvt prophylaxis - lovenox full code reason for continued hospitalization:cultures Quality Stroke Does the patient have a stroke diagnosis?: No VTE Prior VTE?: No VTE Risk Level:: Medical - moderate - high VTE Device Contraindication: Treatment Not Indicated VTE Drug Contraindication: N/A - Med Ordered
--- NOTE | 2024-08-30 09:32 | MHC.CM.PN ---
IMM 08/30. Pt lives alone at home, receives [employer] services 5 days/week for 2 hours/day. Pt uses an electric wheelchair, and has grab bars in the bathroom. Pt will transport home via BLS as discharge. HCP on file and verified. If pt requires STR, [facility] would be her preferred facility, but she would like to return home. Pt would not want to go to [facility] for STR, as she stated she had a very bad experience there in the past. PCP: [facility] ANALYSTNamita
[2024-08-30] MEDS: Meropenem 1 GM VIAL IVPUSH ×2 (13:29→21:55)
[2024-08-30 16:00] VITALS: BP 156/67; PULSE 65; RESP 16; TEMP 36.1; O2SAT 96
[2024-08-30] MEDS: methylPREDNISolone Sod Succ 40 MG/ML VIAL IVPUSH (17:06)
[2024-08-30 19:10] VITALS: BP 138/67; PULSE 70; RESP 17; TEMP 36.3; O2SAT 94
[2024-08-30 21:53] VITALS: BP 138/67
[2024-08-30] MEDS: Doxazosin Mesylate 2 MG TABLET PO (21:53)
[2024-08-31] MEDS: oxyCODONE HCl Immed Release 5 MG TABLET 20 MG PO ×5 (02:09→21:37)
[2024-08-31 03:37] VITALS: BP 124/60; PULSE 100; RESP 18; TEMP 36.4; O2SAT 95
[2024-08-31] MEDS: Meropenem 1 GM VIAL IVPUSH ×3 (06:00→21:37)
[2024-08-31] MEDS: Omeprazole 40 MG CAPSULE.DR PO (06:00)
[2024-08-31] MEDS: Levothyroxine Sodium 50 MCG TABLET PO (06:00)
[2024-08-31 07:40] VITALS: BP 151/72; PULSE 64; RESP 18; TEMP 36.4; O2SAT 95
[2024-08-31 07:47] LABS: Hematocrit 37.4 % (37.0-47.0); Hemoglobin 12.1 g/dl (12.0-16.0); Mean Corpuscular HGB Conc 32.4 g/dl (31.0-35.0); Mean Corpuscular Hemoglobin 30.4 pg (27.0-33.0); Mean Platelet Volume 10.7 fL (9.4-12.3); Platelet Count 198 X10*3/uL (160-400); Red Blood Count 3.98 X10*6/uL (4.20-5.50); Red Cell Distribution Width 15.2 % (11.0-16.0)
[2024-08-31 07:58] LABS: Anion Gap 12 (12-20); Blood Urea Nitrogen 27 mg/dL (9-16); Carbon Dioxide 26 mmol/L (22-29); Chloride 106 mmol/L (96-108); Creatinine Clr Calc Pharmacy 55.6; Estimated Glomerular Filt Rate 49; Glucose Random 78 mg/dL (60-115); Potassium 4.2 mmol/L (3.3-5.1); Sodium 140 mmol/L (135-145)
[2024-08-31] MEDS: Enoxaparin Sodium 40 MG/0.4 ML SYRINGE SUBCUT (08:39)
[2024-08-31] MEDS: atenoloL 50 MG TABLET PO (08:40)
[2024-08-31] MEDS: DULoxetine HCl 60 MG CAPSULE.DR PO (08:40)
[2024-08-31] MEDS: buPROPion HCl XL 300 MG TAB.ER.24H PO (08:40)
[2024-08-31] MEDS: Folic Acid 1 MG TABLET 2 MG PO (08:40)
[2024-08-31] MEDS: Furosemide 20 MG TABLET 60 MG PO (08:41)
[2024-08-31] MEDS: buPROPion HCl XL 150 MG TAB.ER.24H PO (08:41)
[2024-08-31] MEDS: Pregabalin 200 MG CAPSULE PO ×2 (08:41→21:37)
--- NOTE | 2024-08-31 10:15 | P.PNIM_ITS ---
Subjective Subjective Date of Service: 08/31/24 Interval History: pain... n/v improved Physical Exam 2 Vital Signs: Vital Signs: Last Vital Signs Temp 97.5 F 08/31/24 07:40 Pulse 64 08/31/24 07:40 Resp 18 08/31/24 07:40 BP 151/72 H 08/31/24 07:40 Pulse Ox 95 08/31/24 07:40 O2 Del Method Room Air 08/31/24 07:40 O2 Flow Rate 2 08/30/24 03:23 BMI result Body Mass Index 33.9 General: AO X 3, n o acute distress R amilcar: CTA bilatera l, no accessory mu scles used CVS: S1 ,S2,RRR, bilateral le lymphedema GI: soft, non tender, non distended Marnie ro: motor grossly intact, alert Psy ch: appropriate af fect, appropriate insight Objective Data Active Medications Acetaminophen (Acetaminophen 325 Mg Tablet) 650 mg PO Q6H PRN PRN Reason: Pain, Mild 1-3,fever,headache Last Admin: 08/30/24 21:54 Dose: 650 mg Documented By: BERNIE Comments: per pt request 10/03 pain Atenolol (Atenolol 50 Mg Tablet) 50 mg PO DAILY [facility]; Protocol Last Admin: 08/31/24 08:40 Dose: 50 mg Documented By: LOLA Bupropion HCl (Bupropion Hcl Xl 300 Mg Tab.Er.24h) 300 mg PO DAILY@0900 [facility] Last Admin: 08/31/24 08:40 Dose: 300 mg Documented By: LOLA Bupropion HCl (Bupropion Hcl Xl 150 Mg Tab.Er.24h) 150 mg PO DAILY@0900 [facility] Last Admin: 08/31/24 08:41 Dose: 150 mg Documented By: LOLA Calcium Carbonate (Calcium Carbonate 750 Mg Tab.Chew) 750 mg PO Q4H PRN PRN Reason: Heartburn Doxazosin Mesylate (Doxazosin Mesylate 2 Mg Tablet) 2 mg PO BEDTIME [facility]; Protocol Last Admin: 08/30/24 21:53 Dose: 2 mg Documented By: BERNIE Duloxetine HCl (Duloxetine Hcl 60 Mg Capsule.Dr) 60 mg PO DAILY [facility] Last Admin: 08/31/24 08:40 Dose: 60 mg Documented By: LOLA Enoxaparin Sodium (Enoxaparin Sodium 40 Mg/0.4 Ml Syringe) 40 mg SUBCUT Q24H [facility] Last Admin: 08/31/24 08:39 Dose: 40 mg Documented By: LOLA Fluticasone Propionate (Fluticasone Propionate Nasal 16 Gm [place]) 1 spray NOSTRIL-B BID PRN PRN Reason: Allergy Symptoms Folic Acid (Folic Acid 1 Mg Tablet) 2 mg PO DAILY [facility] Last Admin: 08/31/24 08:40 Dose: 2 mg Documented By: LOLA Furosemide (Furosemide 20 Mg Tablet) 60 mg PO DAILY [facility]; Protocol Last Admin: 08/31/24 08:41 Dose: 60 mg Documented By: LOLA Levothyroxine Sodium (Levothyroxine Sodium 50 Mcg Tablet) 50 mcg PO DAILY@629 [facility] Last Admin: 08/31/24 06:00 Dose: 50 mcg Documented By: BERNIE Magnesium Hydroxide (Milk Of Magnesia 30 Ml Oral.Susp) 30 ml PO DAILY PRN PRN Reason: Constipation Melatonin (Melatonin 3 Mg Tablet) 6 mg PO BEDTIME PRN PRN Reason: Insomnia Last Admin: 08/30/24 21:53 Dose: 6 mg Documented By: BERNIE Comments: per pt request Meropenem (Meropenem 1 Gm Vial) 1 gm IVPUSH Q8H [facility] Last Admin: 08/31/24 06:00 Dose: 1 gm Documented By: BERNIE Methotrexate (Methotrexate Sodium 2.5 Mg Tablet) 25 mg PO [facility] Methylprednisolone Sodium Succinate (Methylprednisolone Sod Succ 40 Mg/Ml Vial) 40 mg IVPUSH Q24H [facility] Last Admin: 08/30/24 17:06 Dose: 40 mg Documented By: LOLA Multivitamins/Vitamin C (Multivitamin Tablet) 1 tab PO DAILY [facility] Last Admin: 08/31/24 08:41 Dose: Not Given Documented By: LOLA Non-Admin Reason: Patient Refused Omeprazole (Omeprazole 40 Mg Capsule.) 40 mg PO DAILY@629 [facility] Last Admin: 08/31/24 06:00 Dose: 40 mg Documented By: BERNIE Oxycodone HCl (Oxycodone Hcl Immed Release 5 Mg Tablet) 20 mg PO Q4H PRN PRN Reason: pain (scale score 7-10) Last Admin: 08/31/24 06:02 Dose: 20 mg Documented By: ELLA Pregabalin (Pregabalin 200 Mg Capsule) 200 mg PO BID [facility] Last Admin: 08/31/24 08:41 Dose: 200 mg Documented By: LOLA Sodium Chloride (0.9 % Sodium Chloride Flush 3 Ml Syringe) 3 ml IVFLUSH QSHIFT [facility] Last Admin: 08/30/24 22:07 Dose: 3 ml Documented By: CYNTHIAV Labs 08/31/24 07:04 08/31/24 07:04 Labs: Laboratory Results - last 24 hr 08/31/24 07:04 MCV 94.0 MCH 30.4 MCHC 32.4 RDW 15.2 Plt Count 198 MPV 10.7 Absolute Nucleated RBC 0.000 Nucleated RBC % (auto) 0.0 Anion Gap 12 Estim Creat Clear Calc 55.6 Estimated GFR 49 Random Glucose 78 Calcium 9.0 Microbiology Microbiology Results: Microbiology 08/29/24 15:02 Urine Culture - Final Urine clean catch - Clean Catch Midstream Escherichia coli 08/29/24 12:33 Blood Culture - Preliminary Blood - Venous No growth after 24 hours. 08/29/24 12:09 Blood Culture - Preliminary Blood - Venous No growth after 24 hours. Assessment and Plan (1) UTI due to extended-spectrum beta lactamase (ESBL) producing Escherichia coli: Status: Acute Plan 74F PMH ESBL ecoli with bacteremia 06/2024, rheumatoid arthritis on methotrexate and chronic prednisone, hypertension, chronic lymphedema, peripheral vascular disease, COPD, BLADIMIR occlusion, presented with nausea vomiting and diarrhea Diarrhea, nausea and vomit UTI with ESBL Ecoli given recent history of bacteremia, treating with iv meropenem ra on chronic steroids stress dose steroids copd stable mood disorder continue buproprion duloxetine htn atenolol dvt prophylaxis - lovenox full code reason for continued hospitalization: cultures Quality Stroke Does the patient have a stroke diagnosis?: No VTE Prior VTE?: No VTE Risk Level:: Medical - moderate - high VTE Device Contraindication: Treatment Not Indicated VTE Drug Contraindication: N/A - Med Ordered
[2024-08-31] MEDS: 0.9 % Sodium Chloride Flush 3 ML SYRINGE IVFLUSH ×3 (11:31→21:44)
[2024-08-31 15:48] VITALS: BP 143/70; PULSE 76; RESP 18; TEMP 36.6; O2SAT 95
[2024-08-31] MEDS: methylPREDNISolone Sod Succ 40 MG/ML VIAL IVPUSH (17:23)
[2024-08-31 19:17] VITALS: BP 134/69; PULSE 65; RESP 17; TEMP 36.1; O2SAT 96
[2024-08-31] MEDS: metHOTREXate sodium 2.5 MG TABLET 25 MG PO (19:28)
[2024-08-31] MEDS: Doxazosin Mesylate 2 MG TABLET PO (21:37)
[2024-08-31] MEDS: Melatonin 3 MG TABLET 6 MG PO (21:37)
[2024-08-31] MEDS: diphenhydrAMINE HCL 25 MG CAPSULE PO (21:37)
[2024-09-01 02:46] VITALS: BP 128/65; PULSE 61; RESP 18; TEMP 36.7; O2SAT 93
[2024-09-01] MEDS: oxyCODONE HCl Immed Release 5 MG TABLET 20 MG PO ×5 (03:29→21:39)
[2024-09-01] MEDS: Omeprazole 40 MG CAPSULE.DR PO (06:01)
[2024-09-01] MEDS: Meropenem 1 GM VIAL IVPUSH ×3 (06:01→21:36)
[2024-09-01] MEDS: Levothyroxine Sodium 50 MCG TABLET PO (06:01)
[2024-09-01 06:58] LABS: Alanine Aminotransferase 21 U/L (0-31); Albumin Level 3.3 g/dL (3.5-5.0); Alkaline Phosphatase 154 U/L (39-117); Anion Gap 11 (12-20); Aspartate Amino Transferase 17 U/L (5-31); Bilirubin Direct < 0.2 mg/dL (0.0-0.5); Bilirubin Total 0.2 mg/dL (0.0-1.0); Blood Urea Nitrogen 29 mg/dL (9-16); Calcium 8.7 mg/dL (8.4-10.2); Carbon Dioxide 28 mmol/L (22-29); Chloride 107 mmol/L (96-108); Creatinine Clr Calc Pharmacy 51.8; Estimated Glomerular Filt Rate 45; Glucose Random 123 mg/dL (60-115); Hematocrit 36.8 % (37.0-47.0); Magnesium 2.2 mg/dL (1.6-2.6); Mean Corpuscular HGB Conc 32.6 g/dl (31.0-35.0); Mean Corpuscular Hemoglobin 30.2 pg (27.0-33.0); Mean Corpuscular Volume 92.5 fL (80.0-98.0); Mean Platelet Volume 10.9 fL (9.4-12.3); Platelet Count 173 X10*3/uL (160-400); Potassium 4.2 mmol/L (3.3-5.1); Red Blood Count 3.98 X10*6/uL (4.20-5.50); Red Cell Distribution Width 15.4 % (11.0-16.0); Sodium 142 mmol/L (135-145); Total Protein 6.8 g/dL (6.5-8.0); White Blood Count 6.1 X10*3/uL (4.8-10.8)
[2024-09-01] MEDS: buPROPion HCl XL 150 MG TAB.ER.24H PO (07:59)
[2024-09-01] MEDS: Enoxaparin Sodium 40 MG/0.4 ML SYRINGE SUBCUT (07:59)
[2024-09-01] MEDS: buPROPion HCl XL 300 MG TAB.ER.24H PO (07:59)
[2024-09-01] MEDS: Pregabalin 200 MG CAPSULE PO ×2 (07:59→21:36)
[2024-09-01] MEDS: DULoxetine HCl 60 MG CAPSULE.DR PO (07:59)
[2024-09-01] MEDS: atenoloL 50 MG TABLET PO (08:00)
[2024-09-01] MEDS: Furosemide 20 MG TABLET 60 MG PO (08:01)
[2024-09-01] MEDS: Acetaminophen 325 MG TABLET 650 MG PO ×2 (08:01→17:06)
[2024-09-01] MEDS: 0.9 % Sodium Chloride Flush 3 ML SYRINGE IVFLUSH ×3 (08:02→21:36)
[2024-09-01 08:07] VITALS: BP 157/77; PULSE 67; RESP 14; TEMP 36.7; O2SAT 95
--- NOTE | 2024-09-01 08:47 | HO.PM.IMPN ---
Subjective Subjective Date of Service: 09/01/24 Interval History: ... n/v improved Physical Exam Vital Signs: Vital Signs: Last Vital Signs Temp 98.0 F 09/01/24 08:07 Pulse 67 09/01/24 08:07 Resp 14 09/01/24 08:07 BP 157/77 H 09/01/24 08:07 Pulse Ox 95 09/01/24 08:07 O2 Del Method Room Air 09/01/24 08:07 O2 Flow Rate 2 08/30/24 03:23 BMI result Body Mass Index 33.9 General: AO X 3, n o acute distress R amilcar: CTA bilatera l, no accessory mu scles used CVS: S1 ,S2,RRR, bilateral le lymphedema GI: soft, non tender, non distended Marnie ro: motor grossly intact, alert Psy ch: appropriate af fect, appropriate insight Objective Data Active Medications Acetaminophen (Acetaminophen 325 Mg Tablet) 650 mg PO Q6H PRN PRN Reason: Pain, Mild 1-3,fever,headache Last Admin: 09/01/24 08:01 Dose: 650 mg Documented By: LOLA Atenolol (Atenolol 50 Mg Tablet) 50 mg PO DAILY [facility]; Protocol Last Admin: 09/01/24 08:00 Dose: 50 mg Documented By: LOLA Bupropion HCl (Bupropion Hcl Xl 300 Mg Tab.Er.24h) 300 mg PO DAILY@0900 [facility] Last Admin: 09/01/24 07:59 Dose: 300 mg Documented By: LOLA Bupropion HCl (Bupropion Hcl Xl 150 Mg Tab.Er.24h) 150 mg PO DAILY@0900 [facility] Last Admin: 09/01/24 07:59 Dose: 150 mg Documented By: LOLA Calcium Carbonate (Calcium Carbonate 750 Mg Tab.Chew) 750 mg PO Q4H PRN PRN Reason: Heartburn Doxazosin Mesylate (Doxazosin Mesylate 2 Mg Tablet) 2 mg PO BEDTIME [facility]; Protocol Last Admin: 08/31/24 21:37 Dose: 2 mg Documented By: ELLA Duloxetine HCl (Duloxetine Hcl 60 Mg Capsule.Dr) 60 mg PO DAILY [facility] Last Admin: 09/01/24 07:59 Dose: 60 mg Documented By: LOLA Enoxaparin Sodium (Enoxaparin Sodium 40 Mg/0.4 Ml Syringe) 40 mg SUBCUT Q24H [facility] Last Admin: 09/01/24 07:59 Dose: 40 mg Documented By: LOLA Fluticasone Propionate (Fluticasone Propionate Nasal 16 Gm [place]) 1 spray NOSTRIL-B BID PRN PRN Reason: Allergy Symptoms Folic Acid (Folic Acid 1 Mg Tablet) 2 mg PO DAILY [facility] Last Admin: 08/31/24 08:40 Dose: 2 mg Documented By: LOLA Furosemide (Furosemide 20 Mg Tablet) 60 mg PO DAILY [facility]; Protocol Last Admin: 09/01/24 08:01 Dose: 60 mg Documented By: LOLA Levothyroxine Sodium (Levothyroxine Sodium 50 Mcg Tablet) 50 mcg PO DAILY@629 [facility] Last Admin: 09/01/24 06:01 Dose: 50 mcg Documented By: ELLA Magnesium Hydroxide (Milk Of Magnesia 30 Ml Oral.Susp) 30 ml PO DAILY PRN PRN Reason: Constipation Melatonin (Melatonin 3 Mg Tablet) 6 mg PO BEDTIME PRN PRN Reason: Insomnia Last Admin: 08/31/24 21:37 Dose: 6 mg Documented By: ELLA Meropenem (Meropenem 1 Gm Vial) 1 gm IVPUSH Q8H [facility] Last Admin: 09/01/24 06:01 Dose: 1 gm Documented By: ELLA Methotrexate (Methotrexate Sodium 2.5 Mg Tablet) 25 mg PO SA [facility] Last Admin: 08/31/24 19:28 Dose: 25 mg Documented By: ELLA Methylprednisolone Sodium Succinate (Methylprednisolone Sod Succ 40 Mg/Ml Vial) 40 mg IVPUSH Q24H [facility] Last Admin: 08/31/24 17:23 Dose: 40 mg Documented By: LOLA Multivitamins/Vitamin C (Multivitamin Tablet) 1 tab PO DAILY [facility] Last Admin: 08/31/24 08:41 Dose: Not Given Documented By: LOLA Non-Admin Reason: Patient Refused Omeprazole (Omeprazole 40 Mg Capsule.) 40 mg PO DAILY@629 [facility] Last Admin: 09/01/24 06:01 Dose: 40 mg Documented By: ELLA Oxycodone HCl (Oxycodone Hcl Immed Release 5 Mg Tablet) 20 mg PO Q4H PRN PRN Reason: pain (scale score 7-10) Last Admin: 09/01/24 08:01 Dose: 20 mg Documented By: LOLA Pregabalin (Pregabalin 200 Mg Capsule) 200 mg PO BID [facility] Last Admin: 09/01/24 07:59 Dose: 200 mg Documented By: LOLA Sodium Chloride (0.9 % Sodium Chloride Flush 3 Ml Syringe) 3 ml IVFLUSH QSHIFT [facility] Last Admin: 09/01/24 08:02 Dose: 3 ml Documented By: LOLA Labs 09/01/24 05:52 09/01/24 05:52 Labs: Laboratory Results - last 24 hr 09/01/24 05:52 MCV 92.5 MCH 30.2 MCHC 32.6 RDW 15.4 Plt Count 173 MPV 10.9 Absolute Nucleated RBC 0.000 Nucleated RBC % (auto) 0.0 Anion Gap 11 L Estim Creat Clear Calc 51.8 Estimated GFR 45 Random Glucose 123 H Calcium 8.7 Magnesium 2.2 Total Bilirubin 0.2 Direct Bilirubin < 0.2 AST 17 ALT 21 Alkaline Phosphatase 154 H Total Protein 6.8 Albumin 3.3 L Microbiology Microbiology Results: Microbiology 08/29/24 12:33 Blood Culture - Preliminary Blood - Venous No growth after 48 hours. 08/29/24 12:09 Blood Culture - Preliminary Blood - Venous No growth after 48 hours. 08/29/24 15:02 Urine Culture - Final Urine clean catch - Clean Catch Midstream Escherichia coli Assessment and Plan (1) UTI due to extended-spectrum beta lactamase (ESBL) producing Escherichia coli: Status: Acute Plan 74F PMH ESBL ecoli with bacteremia 06/2024, rheumatoid arthritis on methotrexate and chronic prednisone, hypertension, chronic lymphedema, peripheral vascular disease, COPD, BLADIMIR occlusion, presented with nausea vomiting and diarrhea Diarrhea, nausea and vomit UTI with ESBL Ecoli given recent history of bacteremia, treating with iv meropenem, plan to complete 2 weeks ertapanem 1gm daily via midline at home ra on chronic steroids stress dose steroids copd stable mood disorder continue buproprion duloxetine htn atenolol dvt prophylaxis - lovenox full code reason for continued hospitalization: dispo planning Quality Stroke Does the patient have a stroke diagnosis?: No VTE Prior VTE?: No VTE Risk Level:: Medical - moderate - high VTE Device Contraindication: Treatment Not Indicated VTE Drug Contraindication: N/A - Med Ordered
[2024-09-01] MEDS: Folic Acid 1 MG TABLET 2 MG PO (10:51)
[2024-09-01] MEDS: Multivitamin TABLET 1 TAB PO (10:52)
[2024-09-01 16:00] VITALS: BP 132/64; PULSE 62; RESP 16; TEMP 36.6; O2SAT 98
[2024-09-01] MEDS: methylPREDNISolone Sod Succ 40 MG/ML VIAL IVPUSH (17:05)
[2024-09-01 20:00] VITALS: BP 138/88; PULSE 83; RESP 18; TEMP 35.6; O2SAT 95
[2024-09-01] MEDS: Doxazosin Mesylate 2 MG TABLET PO (21:36)
[2024-09-02] MEDS: oxyCODONE HCl Immed Release 5 MG TABLET 20 MG PO ×4 (02:24→14:30)
[2024-09-02 04:00] VITALS: BP 140/63; PULSE 74; RESP 18; TEMP 36; O2SAT 94
[2024-09-02] MEDS: Meropenem 1 GM VIAL IVPUSH (05:06)
[2024-09-02] MEDS: Omeprazole 40 MG CAPSULE.DR PO (06:16)
[2024-09-02] MEDS: Levothyroxine Sodium 50 MCG TABLET PO (06:16)
[2024-09-02 08:00] VITALS: BP 157/77; PULSE 65; RESP 18; TEMP 36.1; O2SAT 92
--- NOTE | 2024-09-02 08:41 | HO.PM.IMPN ---
Subjective Subjective Date of Service: 09/02/24 Interval History: ... n/v improved Physical Exam Vital Signs: Vital Signs: Last Vital Signs Temp 97.0 F 09/02/24 08:00 Pulse 65 09/02/24 08:00 Resp 18 09/02/24 08:00 BP 157/77 H 09/02/24 08:00 Pulse Ox 92 09/02/24 08:00 O2 Del Method Room Air 09/02/24 08:00 O2 Flow Rate 2 08/30/24 03:23 BMI result Body Mass Index 33.9 General: AO X 3, n o acute distress R amilcar: CTA bilatera l, no accessory mu scles used CVS: S1 ,S2,RRR, bilateral le lymphedema GI: soft, non tender, non distended Marnie ro: motor grossly intact, alert Psy ch: appropriate af fect, appropriate insight Objective Data Active Medications Acetaminophen (Acetaminophen 325 Mg Tablet) 650 mg PO Q6H PRN PRN Reason: Pain, Mild 1-3,fever,headache Last Admin: 09/01/24 17:06 Dose: 650 mg Documented By: ROSLYN Atenolol (Atenolol 50 Mg Tablet) 50 mg PO DAILY [facility]; Protocol Last Admin: 09/01/24 08:00 Dose: 50 mg Documented By: LOLA Bupropion HCl (Bupropion Hcl Xl 300 Mg Tab.Er.24h) 300 mg PO DAILY@0900 [facility] Last Admin: 09/01/24 07:59 Dose: 300 mg Documented By: LOLA Bupropion HCl (Bupropion Hcl Xl 150 Mg Tab.Er.24h) 150 mg PO DAILY@0900 [facility] Last Admin: 09/01/24 07:59 Dose: 150 mg Documented By: LOLA Calcium Carbonate (Calcium Carbonate 750 Mg Tab.Chew) 750 mg PO Q4H PRN PRN Reason: Heartburn Doxazosin Mesylate (Doxazosin Mesylate 2 Mg Tablet) 2 mg PO BEDTIME [facility]; Protocol Last Admin: 09/01/24 21:36 Dose: 2 mg Documented By: ALICE Duloxetine HCl (Duloxetine Hcl 60 Mg Capsule.Dr) 60 mg PO DAILY [facility] Last Admin: 09/01/24 07:59 Dose: 60 mg Documented By: LOLA Enoxaparin Sodium (Enoxaparin Sodium 40 Mg/0.4 Ml Syringe) 40 mg SUBCUT Q24H [facility] Last Admin: 09/01/24 07:59 Dose: 40 mg Documented By: LOLA Fluticasone Propionate (Fluticasone Propionate Nasal 16 Gm Mason) 1 spray NOSTRIL-B BID PRN PRN Reason: Allergy Symptoms Folic Acid (Folic Acid 1 Mg Tablet) 2 mg PO DAILY [facility] Last Admin: 09/01/24 10:51 Dose: 2 mg Documented By: LOLA Furosemide (Furosemide 20 Mg Tablet) 60 mg PO DAILY [facility]; Protocol Last Admin: 09/01/24 08:01 Dose: 60 mg Documented By: LOLA Levothyroxine Sodium (Levothyroxine Sodium 50 Mcg Tablet) 50 mcg PO DAILY@629 [facility] Last Admin: 09/02/24 06:16 Dose: 50 mcg Documented By: ALICE Magnesium Hydroxide (Milk Of Magnesia 30 Ml Oral.Susp) 30 ml PO DAILY PRN PRN Reason: Constipation Melatonin (Melatonin 3 Mg Tablet) 6 mg PO BEDTIME PRN PRN Reason: Insomnia Last Admin: 08/31/24 21:37 Dose: 6 mg Documented By: ELLA Meropenem (Meropenem 1 Gm Vial) 1 gm IVPUSH Q8H [facility] Last Admin: 09/02/24 05:06 Dose: 1 gm Documented By: ALICE Methotrexate (Methotrexate Sodium 2.5 Mg Tablet) 25 mg PO SA [facility] Last Admin: 08/31/24 19:28 Dose: 25 mg Documented By: ELLA Methylprednisolone Sodium Succinate (Methylprednisolone Sod Succ 40 Mg/Ml Vial) 40 mg IVPUSH Q24H [facility] Last Admin: 09/01/24 17:05 Dose: 40 mg Documented By: ROSLYN Multivitamins/Vitamin C (Multivitamin Tablet) 1 tab PO DAILY [facility] Last Admin: 09/01/24 10:52 Dose: 1 tab Documented By: LOLA Omeprazole (Omeprazole 40 Mg Capsule.Dr) 40 mg PO DAILY@629 [facility] Last Admin: 09/02/24 06:16 Dose: 40 mg Documented By: ALICE Oxycodone HCl (Oxycodone Hcl Immed Release 5 Mg Tablet) 20 mg PO Q4H PRN PRN Reason: pain (scale score 7-10) Last Admin: 09/02/24 06:29 Dose: 20 mg Documented By: ALICE Pregabalin (Pregabalin 200 Mg Capsule) 200 mg PO BID [facility] Last Admin: 09/01/24 21:36 Dose: 200 mg Documented By: ALICE Sodium Chloride (0.9 % Sodium Chloride Flush 3 Ml Syringe) 3 ml IVFLUSH QSHIFT [facility] Last Admin: 09/01/24 21:36 Dose: 3 ml Documented By: ALICE Labs 09/01/24 05:52 09/01/24 05:52 Assessment and Plan (1) UTI due to extended-spectrum beta lactamase (ESBL) producing Escherichia coli: Status: Acute Plan 74F PMH ESBL ecoli with bacteremia 06/2024, rheumatoid arthritis on methotrexate and chronic prednisone, hypertension, chronic lymphedema, peripheral vascular disease, COPD, BLADIMIR occlusion, presented with nausea vomiting and diarrhea Diarrhea, nausea and vomit UTI with ESBL Ecoli given recent history of bacteremia, treating with iv meropenem, plan to complete 2 weeks ertapanem 1gm daily via midline at home (end september 11, 2024) ra on chronic steroids stress dose steroids copd stable mood disorder continue buproprion duloxetine htn atenolol dvt prophylaxis - lovenox full code reason for continued hospitalization: dispo planning Quality Stroke Does the patient have a stroke diagnosis?: No VTE Prior VTE?: No VTE Risk Level:: Medical - moderate - high VTE Device Contraindication: Treatment Not Indicated VTE Drug Contraindication: N/A - Med Ordered
--- NOTE | 2024-09-02 08:49 | PM.DS ---
DS: Providers Provider Date of Service: 09/02/24 Date of admission: 08/29/24 15:58 Date of discharge: 09/02/24 Primary care physician: Unknown Physician Consults: 08/29/24 14:36 Consult to Infectious Diseases Routine Consulting Provider: [facility] Reason for consultation: N/V/ABD pain similar presentation with ESBL E coli , UA/microscopic positiv 08/30/24 23:56 Consult to Wound Care Routine Reason for consultation: perez to B/T forearms DS: Diagnosis Discharge Diagnosis (1) UTI due to extended-spectrum beta lactamase (ESBL) producing Escherichia coli: Status: Acute DS: Summary Hospital Course Hospital Course: from initial hpi: 74F PMH ESBL ecoli with bacteremia 06/2024, rheumatoid arthritis on methotrexate and chronic prednisone, hypertension, chronic lymphedema, peripheral vascular disease, COPD, BLADIMIR occlusion, presented with nausea vomiting and diarrhea. Symptoms began day of presentation. Diarrhea is watery, nonbloody. Minimal abdominal pain, some suprapubic fullness but denies dysuria, denies fever or chills. In ED noted to have positive urinalysis. hospital course: Patient was admitted for diarrhea, nausea and vomiting due to urinary tract infection due to ESBL E coli. Was treated with IV meropenem, did not have any bacteremia, anemia, symptoms resolved. Will be discharged home to complete 2 weeks of IV ertapenem to be completed September 11, 2024. For rheumatoid arthritis on chronic steroids she was covered with stress dose steroids and will go back to her chronic dose on discharge. For COPD remained stable patient is feeling better will be discharged Time Attestation Discharge Coordination Time (in mins): 36 Quality: Safe Use of Opioids Does Pt have an Active Cancer Diagnosis on the Problem List?: No Quality: Stroke Does the patient have a stroke diagnosis?: No Physical Exam Vital Signs: Vital Signs: Last Vital Signs Temp 97.0 F 09/02/24 08:00 Pulse 65 09/02/24 08:00 Resp 18 09/02/24 08:00 BP 157/77 H 09/02/24 08:00 Pulse Ox 92 09/02/24 08:00 O2 Del Method Room Air 09/02/24 08:00 O2 Flow Rate 2 08/30/24 03:23 BMI result Body Mass Index 33.9 General: AO X 3, n o acute distress R amilcar: CTA bilatera l, no accessory mu scles used CVS: S1 ,S2,RRR, bilateral le lymphedema GI: soft, non tender, non distended Marnie ro: motor grossly intact, alert Psy ch: appropriate af fect, appropriate insight DS: Data Data Completed and Pending Completed studies during hospitalization [Text1]: Procedures Insertion of Infusion Device into Right Cephalic Vein, Percutaneous Approach (10/13/23) Labs on day of discharge: Preliminary micro results at discharge 08/29/24 12:33 Blood Culture - Preliminary Blood - Venous No growth after 48 hours. 08/29/24 12:09 Blood Culture - Preliminary Blood - Venous No growth after 48 hours. Discharge Plan Discharge Anticipated Discharge Date/Time: 09/02/24 08:42 Patient Disposition: Home Health Service Discharge Diagnosis: ESBL UTI Referrals: [facility] [Other] - 1 Week ([facility] WILL DELIVER YOUR IV ANTIBIOTICS AND SUPPLIES) [facility] [Outside] - 1 Day (EVERY OTHER DAY NURSING VISITS FOR NEW IV ANTIBIOTICS FOR 10 DAYS AND RESUMPTION OF PREVIOUS CARE. ) Physician,Unknown J [Primary Care Provider] - 1 Week Discharge Medications: Continued omeprazole 40 mg capsule,delayed release(DR/EC) 40 mg PO DAILY@0630 methotrexate sodium 2.5 mg tablet 10 tab PO SA Patient Comments: Patient reports last taken Friday 05/19 prednisone 1 mg tablet 4 mg PO DAILY levothyroxine 50 mcg tablet 50 mcg PO DAILY@0630 bupropion HCl 300 mg tablet extended release 24 hr 300 mg PO DAILY@0900 duloxetine 60 mg capsule,delayed release(DR/EC) 60 mg PO DAILY ondansetron 4 mg tablet,disintegrating 4 mg PO Q8H PRN (Reason: nausea and vomiting) Qty: 10 0RF folic acid 1 mg tablet 2 mg PO DAILY doxazosin 2 mg Tablet 2 mg PO BEDTIME Qty: 30 0RF Protocol: Hold for SBP< HOLD for SBP < : 90 bupropion HCl 150 mg tablet extended release 24 hr 150 mg PO DAILY@0900 multivitamin Tablet 1 tab PO DAILY ibuprofen 200 mg Tablet 600 mg PO Q6H PRN (Reason: Pain) melatonin 10 mg Tablet 10 mg PO BEDTIME PRN (Reason: Sleep) pregabalin 200 mg capsule 200 mg PO BID oxycodone 20 mg tablet 20 mg PO Q4H PRN (Reason: pain (scale score 7-10)) Qty: 20 0RF acetaminophen [Tylenol] 325 mg Tablet 650 mg PO Q4H PRN (Reason: Moderate Pain (Scale Score 5-6)) furosemide 20 mg tablet 60 mg PO DAILY sennosides [senna] 8.6 mg Tablet 8.6 mg PO BEDTIME PRN (Reason: Constipation) nystatin 100,000 unit/gram Cream 1 appl TOPICAL BID fluticasone propionate 50 mcg/actuation [place],Suspension 1 spray INTRANASAL BID PRN (Reason: Allergy Symptoms) Rx Instructions: administer into each nostril sodium chloride 7 % Solution For Nebulization 4 ml INHALATION BID atenolol 25 mg tablet 50 mg PO DAILY Protocol: Hold for SBP/HR < HOLD for SBP < : 90 HOLD for HR < : 60 Discharge Orders: Discharge Order (Routine); Ordered 09/02/24 Ordered By: Gonzales Moreno Diet: Advance to usual diet Activity on Discharge: As tolerated Stand Alone Forms: Patient Portal Discharge page Print Language: Maori Care Plan Goals: recovery Health Concerns: esbl uti Plan of Treatment: ertapenem 1gm daily until september 11, 2024 Assessment: see above Discharge Date/Time: 09/02/24 16:41
[2024-09-02] MEDS: Enoxaparin Sodium 40 MG/0.4 ML SYRINGE SUBCUT (08:50)
[2024-09-02] MEDS: 0.9 % Sodium Chloride Flush 3 ML SYRINGE IVFLUSH (08:50)
[2024-09-02] MEDS: buPROPion HCl XL 300 MG TAB.ER.24H PO (08:51)
[2024-09-02] MEDS: atenoloL 50 MG TABLET PO (08:51)
[2024-09-02] MEDS: Folic Acid 1 MG TABLET 2 MG PO (08:51)
[2024-09-02] MEDS: DULoxetine HCl 60 MG CAPSULE.DR PO (08:52)
[2024-09-02] MEDS: Pregabalin 200 MG CAPSULE PO (08:52)
[2024-09-02] MEDS: Furosemide 20 MG TABLET 60 MG PO (08:53)
[2024-09-02] MEDS: buPROPion HCl XL 150 MG TAB.ER.24H PO (08:53)
--- NOTE | 2024-09-02 10:02 | HO.WOUND ---
Wound Consult: Initial 74yr old?female admitted to [facility] on 08/29/24 - See progress notes and H&P for detailed history.? Wound consult placed for Bilateral Forearm for perez prior to admission.? Patient agreeable to assessment and photo documentation.?Patient reports 1+week ago she was using her toaster over and burned her left forearm and right wrist. The skin was assessed - patient reports she does not want dressing at this time denies pain denies itching and reports overall improvement. The left forearm should be monitored as there is a red erythema noted to the periwound. This remains blanchable pain free and no drainage the red pigmentation may be due to the resurfacing of the tissue this should be slowly improving should erythema and of wound bed worsen patient educated and staff educated to report for MD assessment. The site is not concerning at this time. Recommend vaseline application twice a day for treatment. Left Forearm Right Wrist Right Thumb Etiology: ??Superficial perez noted from toaster over per pt statement Wound Bed: Left forearm dry stable scab right wrist thumb resurfaced tissue Drainage / Odor: None Edges: ? well defined Yo[place] wound: ?left forearm with red blanchabl erythema - No Induration, Fluctuance or Warmth noted Pain: denies and denies itching Goals of Treatment: ? Vaseline and keep scab stable and intact Recommendations: Left forearm and right wrist and thumb - Routine cleansing, apply Vaseline twice daily - may leave open to air as long as scab remain stable and no drainage observed. Re-consult wound care Nurse for wound deterioration or wound changes.
--- NOTE | 2024-09-02 10:51 | W.MHC.F2F ---
Service Date Service Date: 09/02/24 Encounter Date of encounter: 09/02/24 Reasons for Services Signs and symptoms assessed: difficulty amblating Reason for longterm: medication management, medication treatment and teach disease management Homebound: Leaving the home is medically contraindicated at this time without the asist of a device and/or another person due th the listed conditions above and below. Reason homebound: unsteady gait / fall risk Certification: Based on the above findings, I certify that this patient is confined to the home and needs intermittent longterm care, physical therapy and/or speech therapy, or continues to need occupational therapy. The patient is under my care, and I have initiated the establishment of the plan of care. The patient will be followed by a physician who will periodically review the plan of care. Time Spent With Patient Time: Total time managing care of this patient today ____ minutes.
--- NOTE | 2024-09-02 11:36 | HO.MIDLINE_ITS ---
Midline Insertion MIDLINE INSERTION Diagnosis: UTI Indication: 4wks abt Pertinent Labs: reviewed Technique: Using sterile technique including cap and mask, glove and drape, the right arm was prepped and draped in the usual sterile fashion of full barrier technique with G. Using ultrasound guidance, right brachial vein access was obtained . 20g x 20cm nonPASV BARD POWER MIDLINE trimmed to 15cm was positioned. The procedure was performed in [facility]. Ultrasound was used to document vein patency and for needle entry. A formal ultrasound picture was recorded. Vascular Heating Operators Engineer has released the line for use and it is currently dressed with a StatLock, Tegaderm, and CHG disc. Verification has been performed for blood return and line patency. Arm Circumference: 35cm Equipment: BARD POWER MIDLINE Catheter Catheter Type: 20G x 20cm NonPASV single lumen catheter Lot #: [id number]
--- NOTE | 2024-09-02 13:04 | MHC.CM.PN ---
Addendum entered by Marixa Cano RN 09/02/24 14:25: PER [facility] IV ABX AND SUPPLIES WILL BE DELIVERED BY 8PM. Addendum entered by Marixa Cano RN 09/02/24 13:59: PAULIE CARRILLO AGREEABLE TO EOD SN VISIT UNTIL IV ABX COMPLETED, DTR NOA AWARE AND WILL TRY TO BE THERE WELL FOR 1ST DOSE TOMORROW AT 2PM. Original Note: EMR REVIEWED, PT W/UTI AND NEED FOR 10 DAYS IV ERTAPENEM 1GM DAILY, [facility] WILL PLAN ON DELIVERY BY 2PM TOMORROW 09/03, [facility] WAS GOING TO PROVIDE MORE FREQUENT VISITS M-W-F VS EOD HOWEVER CM RECEIVED MESSAGE THAT PT IS ACTIVE W/PAULIE CARRILLO, REF SENT, CM ATTEMPTED TO CONTACT [facility]UL[facility] CARRILLO VIA PHONE HOWEVER NO ANSWER, MESSAGE SENT VIA [facility] PT WILL NEED BLS TRANSPORT
[2024-09-02] MEDS: Ertapenem Sodium 1 GM VIAL IVPUSH (15:02)
[2024-09-02 15:25] VITALS: BP 150/72; PULSE 66; RESP 15; TEMP 36.1; O2SAT 93
== END 2024-09-02 16:41 | disposition home health service (06) | DRG 690 ==
LOC: HO.ED 15:33 → HO.EDOVER 16:10 → HO.S3 19:16
PROVIDERS: Admitting Provider Internal Medicine; Emergency Provider Emergency Medicine Emergency Medical Services; PCP Nurse Practitioner Adult Health; Visit Provider Internal Medicine
DX: N39.0 Urinary tract infection, site not specified (principal); Z16.12 Extended spectrum beta lactamase (ESBL) resistance; E03.9 Hypothyroidism, unspecified; B96.20 Unspecified Escherichia coli [E. coli] as the cause of diseases classified elsewhere; M06.9 Rheumatoid arthritis, unspecified; F39 Unspecified mood [affective] disorder; J44.9 Chronic obstructive pulmonary disease, unspecified; Z87.891 Personal history of nicotine dependence; Z79.52 Long term (current) use of systemic steroids; Z79.631 Long term (current) use of antimetabolite agent; Z79.890 Hormone replacement therapy; Z79.899 Other long term (current) drug therapy
CPT/HCPCS: 36410; 36415; 74176; 80048; 80053; 80076; 81001; 83605; 83690; 83735; 85025; 85027; 87040; 87086; 87088; 87186; 99285; C1751; J1171; J1200; J1335; J1650; J2185; J2405; J2765; J2919

== ENCOUNTER 2024-08-29 15:58 | Outpatient (BNV) | payer MEDICARE, MEDICAID, SELFPAY | END 2024-08-29 16:35 | PROVIDERS: Admitting Provider Internal Medicine; Emergency Provider Emergency Medicine Emergency Medical Services; Visit Provider Radiology Diagnostic Radiology | DX: R19.7 Diarrhea, unspecified (principal) | CPT/HCPCS: 74176 ==

== ENCOUNTER → 2024-08-29 15:58 | Outpatient (BNV) | payer MEDICARE, MEDICAID, SELFPAY | PROVIDERS: Admitting Provider Internal Medicine; Emergency Provider Emergency Medicine Emergency Medical Services; Visit Provider Internal Medicine | DX: N39.0 Urinary tract infection, site not specified (principal); B96.29 Other Escherichia coli [E. coli] as the cause of diseases classified elsewhere; Z16.12 Extended spectrum beta lactamase (ESBL) resistance | CPT/HCPCS: 99223; 99232; 99239; 99499; G0180 ==

== ENCOUNTER 2024-10-07 09:34 | Inpatient (IN) | payer MEDICARE, MEDICAID, SELFPAY ==
--- NOTE | ~2024-10-07 | US_ITS ---
EXAMINATION: Ultrasound renal bilaterally. CLINICAL INFORMATION: Hyperdense cyst. COMPARISON: Correlated to CT dated August 29, 2024 reporting multiple hyperdense lesions, right kidney. TECHNIQUE: Real-time ultrasound kidneys using grayscale technique. FINDINGS: Right kidney: 15 x 5 x 6 cm. Volume: 226 cc. Normal echotexture. Normal renal cortical thickness. No hydronephrosis. Multifocal, well-defined, exophytic, anechoic lesions throughout the parenchyma, the largest measures 2.2 cm in the upper pole. No flow on color Doppler interrogation to these lesions. Probable internal echoes. Left kidney: 7 x 3 x 2 cm. Volume: 26 cc. Renal cortical thinning. Normal echotexture. No hydronephrosis. There is a 3.4 cm exophytic well-defined anechoic lesion without nodular components were flow on color Doppler interrogation. US/US renal BI IMPRESSION: Probable Bosniak type II cysts, right kidney. 3.4 cm Bosniak type I cyst, left kidney. No hydronephrosis. Atrophy, left kidney. Consider renal artery stenosis etiology. Electronically signed by: George Low MD 10/09/2024 11:05 AM EDT
[2024-10-07 09:42] VITALS: BP 169/78; BP 170/82; PULSE 101; PULSE 110; RESP 20; TEMP 36.6; O2SAT 92; BMI 29.9
[2024-10-07 09:49] VITALS: BP 169/78; PULSE 101; RESP 20; TEMP 36.6; O2SAT 92
--- NOTE | 2024-10-07 09:50 | PC.NURSE ---
Patient presents to ED c/o UTI symptoms. Denies urgency, dysuria, incontinence, and frequency. Patient has hx of UTIs. Patient complaining of increased confusing. Patient states I become more confused when i have a UTI . Patient finds herself in places not knowing how long shes been there or how she got there. Denies pain, SOB - O2 92% RA. PAtient completed ABX course 1 week ago. 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 Patient hypertensive 169/78 but all other vitals signs stable.
--- NOTE | 2024-10-07 10:09 | ED.GENADULT ---
HPI - General Adult General Chief complaint: General Medical Stated complaint: ?UTI PER EMS Time Seen by Provider: 10/07/24 09:42 Source: patient, EMS and old records reviewed Mode of arrival: EMS Limitations: no limitations History of Present Illness ED Provider: CIARA NAVARRETE narrative: 74 yo female wtih PMH of CASSANDRA, PAD, HTN, osteomyelitis, RA on methotrexate, UTI + ESBL urine, here with c/o just finishing 10 days of IV ertapenam at home with VNA about a week ago. She thinks she has another UTI as she could not find her wheelchair this AM and woke up in kitchen near fridge. No pain, fevers, n/v, no urinary symptoms. She states she thinks she has another UTI. She denies headaches, numbness, weakness, head trauma. She was discharged here on 09/02 s/p IV ertapenem with last dose September 11 - she might be thinking that this was the recent 10 day abx as I cannot find anyting else int he symptoms. She denies flank pain n/v/d, fevers. complaint: concern for UTI Onset (ago): day(s) (1) Radiation: non-radiation Severity: mild Relieving factors: none Exacerbating factors: none Associated symptoms: confusion Treatments prior to arrival: none Related Data Home Medications ?Medication ?Instructions ?Recorded ?Confirmed bupropion HCl 300 mg 24 hr tablet, 300 mg PO DAILY@89908/23/21 08/29/24 extended release duloxetine 60 mg capsule,delayed 60 mg PO DAILY 08/23/21 08/29/24 release levothyroxine 50 mcg tablet 50 mcg PO DAILY@62908/23/21 08/29/24 methotrexate sodium 2.5 mg tablet 10 tab PO SA 08/23/21 08/29/24 omeprazole 40 mg capsule,delayed 40 mg PO DAILY@62908/23/21 08/29/24 release prednisone 1 mg tablet 4 mg PO DAILY 08/23/21 08/29/24 pregabalin 200 mg capsule 200 mg PO BID 01/07/23 08/29/24 folic acid 1 mg tablet 2 mg PO DAILY 10/13/23 08/29/24 bupropion HCl 150 mg 24 hr tablet, 150 mg PO DAILY@89911/25/23 08/29/24 extended release acetaminophen 325 mg tablet 650 mg PO Q4H PRN Moderate Pain 03/04/24 08/29/24 (Tylenol) (Scale Score 5-6) ibuprofen 200 mg tablet 600 mg PO Q6H PRN Pain 05/03/24 08/29/24 melatonin 10 mg tablet 10 mg PO BEDTIME PRN Sleep 05/03/24 08/29/24 multivitamin 1 tab PO DAILY 05/03/24 08/29/24 atenolol 25 mg tablet 50 mg PO DAILY 08/29/24 08/29/24 fluticasone propionate 50 1 spray intranasal BID PRN Allergy 08/29/24 08/29/24 mcg/actuation nasal Symptoms spray,suspension furosemide 20 mg tablet 60 mg PO DAILY 08/29/24 08/29/24 nystatin 100,000 unit/gram topical 1 appl topical BID 08/29/24 08/29/24 cream sennosides 8.6 mg tablet (senna) 8.6 mg PO BEDTIME PRN Constipation 08/29/24 08/29/24 sodium chloride 7 % for 4 ml inhalation BID 08/29/24 08/29/24 nebulization Previous Rx's ?Medication ?Instructions ?Recorded ondansetron 4 mg disintegrating 4 mg PO Q8H PRN nausea and 08/02/23 tablet vomiting #10 tabs doxazosin 2 mg tablet 2 mg PO BEDTIME #30 tabs 10/17/23 oxycodone 20 mg tablet 20 mg PO Q4H PRN pain (scale score 02/27/24 7-10) #20 tabs Allergies Allergy/AdvReac Type Severity Reaction Status Date / Time lisinopril (LISINOPRIL) Allergy Severe ANAPHYLAXIS Verified 10/07/24 09:46 Sulfa (Sulfonamide Allergy Intermediate RASH Verified 10/07/24 09:46 Antibiotics) (SULFA (SULFONAMIDE ANTIBIOTICS)) tramadol (TRAMADOL) Allergy Intermediate RASH Verified 10/07/24 09:46 Xsrhygf-LKG-YfR Reductase Allergy Rash Verified 10/07/24 09:46 Inhibitor (Wvzxgxj-Bjv-Ljq Reductase Inhibitor) hydrochlorothiazide (HCTZ) AdvReac Unknown ABNORMAL Verified 10/07/24 09:46 LABS? Review of Systems Review of Systems: Constitutional : No Fever, No Chills, No Fatigue ENT/Mouth : No sore throat, No Rhinorrhea Eyes: No Eye Pain, No Swelling, No Redness Cardiovascular : No Chest Pain, No SOB, No Dyspnea on Exertion Respiratory : No Cough, No Sputum Gastrointestinal : No Nausea, No Vomiting, No Diarrhea, No abdominal Pain Genitourinary : No Dysuria, No Urinary Frequency, No Hematuria, Musculoskeletal : No joint pain, No Myalgias, No Joint Swelling Skin : No Skin Lesions, No rash Neuro : No Weakness, No Numbness, No Dizziness, no Headache, pos confusion All other systems reviewed and are negative COUNT INCLUDES THE [facility] Past Medical History Attestation statement: The following information was validated with the patient. Source: old records reviewed Medical History Bacteriuria Urinary tract infection due to extended-spectrum beta lactamase (ESBL) producing Escherichia coli History of ESBL E. coli infection Osteomyelitis COPD (chronic obstructive pulmonary disease) Rheumatoid lung Hypothyroidism Congestive heart failure Fibromyalgia HTN (hypertension) Depression Rheumatoid arthritis Surgical History Hx of prior ablation treatment Knee joint replacement status Family History Family History Father No problems noted. Other Heart disease Social History Social History Household Members: None Household Members Other:: 0 Housing: Apartment Do you presently have visiting nurse or other home services: No Unable to assess alcohol history related to: Unable to respond Alcohol intake: never Comment: bedside commode Patient Tobacco Use Status: Former Tobacco user Tobacco use type: Cigarette Smoked in Last 30 Days: No e-Cigarette/Vaping Use: Never Used Second Hand Smoke Exposure: No Use of substances other than those prescribed or required for medical reasons: No Advance Directives: Yes Advance Directives on File: Yes Advance Directives Date on File: 09/29/23 Do you have a plan to hurt others: No Plan service: No Physical Exam ED Vital Signs: Vital Signs - 24 hr 10/07/24 09:42 10/07/24 09:49 Temperature 97.8 F 97.8 F Pulse Rate 101 H 101 H Respiratory Rate 20 20 Blood Pressure 169/78 H 169/78 H Pulse Oximetry 92 92 Oxygen Delivery Method Room Air Room Air BMI result Body Mass Index 29.9 Appearance: Alert. Oriented X3. No acute distress. Eyes: Pupils equal, round and reactive to light. ENT: Pharynx normal. Neck: Normal inspection. Neck supple. CVS: Normal heart rate and rhythm. Pulses normal. Respiratory: No respiratory distress. Breath sounds normal. Abdomen: Soft and nontender. Skin: Skin warm and dry. Normal skin color. Normal skin turgor. Extremities: No lower extremity edema. Neuro: Oriented X 3. No motor deficit. No sensory deficit. CN2-12 intact Medications Administered Discontinued Medications Generic Name Dose Route Start Last Admin Trade Name Samia PRN Reason Stop Dose Admin Ertapenem 1 gm 10/07/24 10:24 10/07/24 11:52 Ertapenem Sodium 1 Gm Vial IVPUSH 10/07/24 10:25 1 gm ONCE ONE Administration Medical Decision Making Medical Decision Making [facility] Narrative: 74 yo female wtih PMH of CASSANDRA, PAD, HTN, osteomyelitis, RA on methotrexate, UTI + ESBL urine, here with c/o episodes of confusion x 2 but no other symptoms after waking up last night. She has no CP/SOB, no abd pain, no n/v/d and no fevers. She is alert and oriented here with no focal deficits. She states this is how her UTIs start. At this time will involve CM to confirm VNA story and also obtain basic labs, cultures, UA and start on ertapenem. She is S to macrobid as well in past. Differential Diagnosis Differential Diagnoses: The differential diagnosis associated with the presentation includes no focal deficits to suggest stroke, lyte abnormality, sleep disorder, UTI Admission/Observation Consideration of admission/observation: Escalation of care including admission/observation considered will admit for IV abx Consult Healthcare Provider Management of the patient was discussed with: Hospitalist (will admit) and Hog [employer]er (CM confirms no recent IV abx in last 10 days) Lab Data [facility] Lab Attestation statement: I reviewed the patient's lab results. 10/07/24 10:23 10/07/24 10:23 Labs: Lab Results 10/07/24 10/07/24 10/07/24 Range/Units 10:23 10:24 11:28 WBC 7.9 (4.8-10.8) X10*3/uL RBC 4.23 (4.20-5.50) X10*6/uL Hgb 13.0 (12.0-16.0) g/dl Hct 37.6 (37.0-47.0) % MCV 88.9 (80.0-98.0) fL MCH 30.7 (27.0-33.0) pg MCHC 34.6 (31.0-35.0) g/dl RDW 15.4 (11.0-16.0) % Plt Count 178 (160-400) X10*3/uL MPV 10.3 (9.4-12.3) fL Immature Gran % (Auto) 0.5 H (0.0-0.4) % Neut % (Auto) 76.2 H (45-73) % Lymph % (Auto) 11.9 L (20-40) % Scott % (Auto) 9.2 (2-11) % Eos % (Auto) 1.8 (0-4) % Baso % (Auto) 0.4 (0-2) % Lymph # (Auto) 0.9 L (1.2-4.9) X10*3/uL Scott # (Auto) 0.7 (0.1-1.2) X10*3/uL Eos # (Auto) 0.1 (0.0-0.4) X10*3/uL Baso # (Auto) 0.0 (0.0-0.2) X10*3/uL Abs Immat Gran (auto) 0.04 H (0.00-0.03) X10*3/uL Absolute Neuts (auto) 6.0 (2.0-8.3) x10*3/uL Absolute Nucleated RBC 0.000 (0.0-0.012) X10*3/uL Nucleated RBC % (auto) 0.0 (0.0-0.2) /100WBC Sodium 139 (135-145) mmol/L Potassium 3.3 D (3.3-5.1) mmol/L Chloride 104 (96-108) mmol/L Carbon Dioxide 25 (22-29) mmol/L Anion Gap 13 (12-20) BUN 14 (9-16) mg/dL Creatinine 1.17 (0.5-1.4) mg/dL Estim Creat Clear Calc 49.1 Estimated GFR 45 Random Glucose 168 H (60-115) mg/dL Lactic Acid 1.1 (0.5-2.0) mmol/L Calcium 9.4 D (8.4-10.2) mg/dL Magnesium 1.9 (1.6-2.6) mg/dL Total Bilirubin 0.3 (0.0-1.0) mg/dL Direct Bilirubin 0.1 (0.0-0.5) mg/dL AST 23 (5-31) U/L ALT 10 (0-31) U/L Alkaline Phosphatase 103 (39-117) U/L C-Reactive Protein 4.94 H (< or = 0.50) mg/dL Total Protein 7.3 (6.5-8.0) g/dL Albumin 3.8 (3.5-5.0) g/dL Urine Color Yellow Urine Appearance Cloudy Urine pH 5.5 (5.0-9.0) Ur Specific [place] 1.010 (1.005-1.025) Urine Protein Negative (Neg-Trace) mg/dL Urine Glucose (UA) Negative (Negative) mg/dL Urine Ketones Negative (Negative) mg/dL Urine Blood Trace H (Negative) Urine Nitrite Negative (Negative) Ur Leukocyte Esterase Large (3+) H (Negative) Urine RBC 0-2 (0-2) /HPF Urine WBC 21-50 H (0-5) /HPF Ur Squamous Epith Cells 11-20 (0-2) /HPF Other Crystals Present Urine Bacteria 4+ (None Seen) Hyaline Casts 3-5 (0-2) /LPF Independent Historian Clinical information obtained from an independent historian. History obtained from or confirmed by: EMS External Record Review External record reviewed: Inpatient record, Outpatient record and Prior outpatient labs Tests considered The following testing was considered but not selected: CT scan but no abdominal pain to suggest renal colic as well. Discharge Plan Discharge Clinical Impression: Acute confusion Urinary tract infection Qualifiers: Urinary tract infection type: acute cystitis Hematuria presence: without hematuria Qualified Code(s): N30.00 - Acute cystitis without hematuria Patient Disposition: Admitted As Inpatient Print Language: Italian
[2024-10-07 10:31] LABS: MANUAL DIFF FLAG NO
[2024-10-07 10:33] LABS: Hematocrit 37.6 % (37.0-47.0); Hemoglobin 13.0 g/dl (12.0-16.0); Imm Gran Abs Auto 0.04 X10*3/uL (0.00-0.03); Imm Gran Pct Auto 0.5 % (0.0-0.4); Lymphocytes Absolute Auto 0.9 X10*3/uL (1.2-4.9); Mean Corpuscular HGB Conc 34.6 g/dl (31.0-35.0); Mean Corpuscular Hemoglobin 30.7 pg (27.0-33.0); Mean Corpuscular Volume 88.9 fL (80.0-98.0); NRBC Abs Auto 0.000 X10*3/uL (0.0-0.012); NRBC Pct Auto 0.0 /100WBC (0.0-0.2); Platelet Count 178 X10*3/uL (160-400); Red Blood Count 4.23 X10*6/uL (4.20-5.50); White Blood Count 7.9 X10*3/uL (4.8-10.8)
--- OUTSIDE RECORDS SUMMARY | 2024-10-07 10:38 | XMS_ITS | Patient Health Record ---
Author Organization [facility] Address [address] [place] [address] Care Team Providers Care Industrial Psychologist Name Role Phone Namita Acosta NP Primary Care Provider Jose Pizarro Unavailable [phone] Allergies Allergen (clinical drug ingredient) Drug/Non Drug Allergy documented on EMR Reaction Allergy Type Onset Date Status Adhesive rash Allergy Active Fentanyl and Related rash Drug Allergy Active hydrocortisone Hydrocortisone rash Drug Allergy Active lisinopril Lisinopril anaphylaxis Drug Allergy Act shawanda Substance with 6-vsnplme-2-methylg lutaryl-coenzyme A reductase inhibitor mechanism of action [...] 1 MG 1 tablet Orally Once a day; Duration: 30 day(s) Active B Complex - as directed Orally Active Iodosorb 0.9 % as directed Externally Apply to ulceration daily with dry sterile dressing; Duration: 30 days 05/25/2022 Not-Taking buPROPion HCl ER (XL) 150 MG Oral; Duration: 90 300mg and 150 Active Sodium Chloride Acti ve Ergocalciferol Activ e DULoxetine HCl 60 MG 1 capsule Orally Once a day; Duration: 30 day(s) Active Iodosorb 0.9 % as directed Externally Apply to ulceration daily with dry sterile dressing; Duration: 30 days 01/21/2022 Not-Taking Albuterol Sulfate HFA 108 (90 Base) MCG/ACT 1 puff as needed Inhalation every 4 hrs Active Pregabalin 150 MG Oral; Duration: 30 Active oxyCODONE HCl 20 MG Oral; Duration: 24 Active Biotin 1 MG as directed Orally Active Senna PRN Active Atenolol 50 MG 1 tablet Orally twice a day Active predniSONE 1 MG as directed Orally Active Narcan 4 MG/0.1ML as directed Nasally prn Active Omeprazole 40 MG Oral; Duration: 90 Active Nystatin topical cream, prn Active Methotrexate Sodium 2.5 MG TAKE 10 TABLETS BY MOUTH EVERY 7 DAYS Oral; Duration: 84 Active Lyrica 200 MG 1 capsule Orally Once a day Active Multivitamin Active Miconazole Nitrate 2 % APPLY TOPICALLY T O THE AFFECTED AREA TWICE DAILY External; Duration: 15 Active Lasix 40 MG 1 tablet Orally Once a day; Duration: 30 day(s) Active Vitamin D (Ergocalciferol) 1.25 MG (44586 UT) TAKE 1 CAPSULE BY MOUTH 1 TIME A WEEK Oral; Duration: 90 Not-Taking Ipratropium-Albuterol 0.5-2.5 (3) MG/3ML 3 mL as needed Inhalation every 6 hrs Active Synthroid Not-Taking Losartan Potassium A ctive Levothyroxine Sodium 50 MCG Oral; Duration: 90 Active Augmentin 500-125 MG 1 tablet Orally every 8 hrs; Duration: 10 day(s) 05/25/2022 Not-Taking Augmentin 500-125 MG 1 tablet Orally every 8 hrs; Duration: 10 day(s) 01/21/2022 Not-Taking Gemfibrozil 600 MG Oral; Duration: 90 Active dexAMETHasone 0.5 MG/5ML Oral; Duration: 5 Not-Taking Furosemide Active amLODIPine Besylate 2.5 [...] Problem Status W/U Status Risk Notes Problem Bilateral atherosclerosis of arteries of lower limbs (disorder) (79703437864006070 ) Atherosclerosis of [place] artery of both lower extremities, with unspecified presence of clinical manifestation (I70.203) Active confirmed Problem Rheumatoid arthritis (96654593) Rheumatoid arthritis involving both feet, unspecified whether rheumatoid factor present (M06.9) Active confirmed Plan Of Treatment Pending Test Test Name Order Date [id number] SKIN/TISSUE 12/17/2021 [id number] SKIN/TISSUE 01/21/2022 [id number] SKIN/TISSUE 05/25/2022 [id number] I&D ABSCESS- SIMPLE,SINGLE 023 [id number] I&D ABSCESS- SIMPLE,SINGLE 022 Insurance Providers Payer Name Payer Address Payer Phone Subscriber Number Group Number Insured Name Patient Relationship to Insured Coverage Start Date Coverage End Date [employer] Medicare [id number] [address] [address] [place] [address] [id number] Alexandrea Renee Self - patient is the [...] ribs- CT -sameday went back 09/12/21 09/10/21 [facility] [place] rheumatoid lung-overnight 07/2021
--- OUTSIDE RECORDS SUMMARY | 2024-10-07 10:38 | XMS_ITS | Data Portability ---
Author Organization [facility], Main Office Address [address] [place] [address] [address] [place] [address] Care Team Providers Care Snake Charmer Name Role Phone GINO MICHAEL OTHER [facility] ([facility]) OTHER Assessment Encounter Date Assessment Date Assessment LastModified by Organization Details LastModified Time 07/18/2024 07/18/2024 Labs 07/15: Na 143-K 3.8-bun 19-cr 1.1-wbc 5.0-hgb 11.6-hct 37.1-plt 170 Not available 07/22/2024 17:38:25 07/22/2024 07/22/2024 Labs 07/15: Na 143-K 3.8-bun 19-cr 1.1-wbc 5.0-hgb 11.6-hct 37.1-plt 170 Labs 07/22:Na 142-K 3.7-bun 24-cr 1.3-wbc 5.3-hgb 11.6-hct 37.5-plt 142 Not available 07/23/2024 19:20:39 07/25/2024 07/25/2024 Labs 07/15: Na 143-K 3.8-bun 19-cr 1.1-wbc 5.0-hgb 11.6-hct 37.1-plt 170 Labs 07/22:Na 142-K 3.7-bun 24-cr 1.3-wbc 5.3-hgb 11.6-hct 37.5-plt 142 Not available 07/25/2024 09:53:35 Plan of Treatment Reminders Order Date Submit [...] Name and Address Organization Details Recorded Time Ewa pleitez 01194656 Completed 202307/02/2024 Not Available [facility] 18:27:05 Bacteriu rika 99860595 Completed 202307/04/2024 LYRIC LOU [address] , [address], [place], [address] , [facility] 5 17:15:10 Chronic pain 00429558 Active 2023 Flor Michel NP [address] , [address], [place], [address] , [facility] 4 09:06:51 Rheumato id arthriti s 51077171 Completed 202307/02/2024 LYRIC LOU [address] , [address], [place], [address] , [facility] 5 16:59:00 Essentia l hyperten sheela 70313050 Completed 202307/02/2024 Not Available [facility] 5 18:27:08 Chronic obstruct shawanda pulmonar y disease 51102292 Completed 202307/02/2024 Not Available [facility] 5 18:27:09 Fracture of femur 63149454 Completed 202307/04/2024 LYRIC LOU [address] , [address], [place], [address] , [facility] 5 17:15:10 Gastroes ophageal reflux disease 968574640 Active 2023 Flor Michel NP [address] , [address], [place], [address] , [facility] 4 09:08:19 Depressi ve disorder 45752724 Active 2023 Flor Michel NP [address] [facility], [address], [place], [address] , [facility] 4 09:08:43 Hypothyr oidism 63537660 Completed 202307/02/2024 Not Available [facility] 5 18:27:11 Congesti ve heart failure 48264890 Completed 202307/04/2024 LYRIC LOU [address] , [address], [place], [address] , [facility] 5 17:15:10 Fracture of patella 89603598 Completed 202307/04/2024 LYRIC LOU [address] , [address], [place], [address] , [facility] 5 17:15:10 Fibromya lgia 171798627 Completed 202307/02/2024 Not Available [facility] 5 08:24:21 Low blood pressure 97205575 Completed 202307/02/2024 Not Available [facility] 5 18:27:06 Fall Active 2023 Not Available [facility] 5 08:24:24 Acute kidney injury 36329679 Completed 202307/02/2024 Not Available [facility] 5 18:27:07 Mood disorder 53232648 Completed 202307/02/2024 Not Available [facility] 5 18:27:19 Essentia l hyperten sheela 00618492 Active 2023 Not Available [facility] 5 18:27:12 Chronic obstruct shawanda pulmonar y disease 93797973 Active 2023 Not Available [facility] 5 18:27:12 Hypothyr oidism 29024843 Active 2023 Not Available [facility] 18:27:13 Pulmonar y emphysem a 59218016 Completed 202307/02/2024 Not Available [facility] 08:31:26 Muscle weakness 30459312 Completed 202307/02/2024 Not Available [facility] 08:26:06 Difficul ty walking 639042804 Completed 202307/04/2024 LYRIC LOU [address] , [address], [place], [address] , [facility] 5 17:15:10 Pain of left knee region 07310075690 4109 Completed 202307/04/2024 LYRIC LOU [address] [employer] , [address], [place], [address] , [facility] 5 17:15:10 Pulmonar y arterial hyperten sheela 57060425 Completed 202307/02/2024 Not Available [facility] 18:27:17 Urinary tract infectio us disease 96248491 Completed 202307/02/2024 LYRIC LOU [address] , [address], [place], [address] , [facility] 5 17:15:10 Rheumato id arthriti s with rheumato id lung disease 2324950105 Completed 202307/02/2024 Not Available [facility] 18:27:19 Unsteady when standing 218260829 Completed 202307/02/2024 Not Available [facility] 18:27:22 Drug resistan ce 91244545 Completed 202307/02/2024 Not Available [facility] 18:27:22 Gastro-e sophagea l reflux disease with esophagi tis 980423538 Completed 202307/02/2024 Not Available [facility] 5 18:27:23 Fracture of multiple ribs 1633172 Completed 202407/04/2024 LYRIC LOU [address] [facility], [address], [place], [address] , [facility] 5 17:15:10 Rhabdomy olysis 247896110 Active 2024 Not Available [facility] 5 07:19:27 Urinary tract infectio us disease 83980515 Completed 202407/04/2024 LYRIC LOU [address] [facility], [address], [place], [address] , [facility] 5 17:15:10 Drug resistan ce 30057854 Active 2024 UTI - ESBL w/ E.Coli Not Available [facility] 5 08:24:32 Acidosis 14389284 Completed 202407/04/2024 LYRIC LOU [address] [facility], [address], [place], [address] , [facility] 5 17:15:10 Disorder of bilirubi n metaboli sm 59618668 Completed 202407/04/2024 LYRIC LOU [address] [facility], [address], [place], [address] , [facility] 5 17:15:10 Aortic thromboe mbolism 272641666 Active 2024 Chronic Aortic Mural Thrombus Not Available [facility] 5 08:26:59 Hypokale delroy 01494465 Active 2024 Not Available [facility] 5 07:24:36 [place] 620264349 Active 2024 Not Available [facility] 5 07:25:12 Long-ter m current use of steroid 383913866 Completed 202407/04/2024 LYRIC LOU [address] [facility], [address], [place], [address] , [facility] 5 17:15:10 Polycyth emia vera (clinica l) 187125814 Completed 202407/04/2024 JUNIOR VILLEGAS, [facility] [address] [facility], [address], [place], [address] , [facility] 5 17:15:10 [facility] 820726999 Completed 202407/04/2024 JUNIOR VILLEGAS [address], [address], [place], [address] , [facility] 5 17:15:10 Late effect of fracture of lumbar vertebra 500171284 Completed 202407/04/2024 JUNIOR VILLEGAS [address], [address], [place], [address] , [facility] 5 17:15:10 Closed fracture of tibia AND fibula 918693799 Active 2024 JUNIOR VILLEGAS [address], [address], [place], [address] , [facility] 5 16:24:03 Adrenal incident aloma 30706226318 105 Active 2024 JUNIOR VILLEGAS [address], [address], [place], [address] , [facility] 5 16:30:42 Rheumato id arthriti s 84624879 Active 2024 JUNIOR VILLEGAS [address], [address], [place], [address] , [facility] 5 16:59:00 Chronic primary low back pain Active 2024 JUNIOR VILLEGAS [facility] [address] [facility], [address], [place], [address] , [facility] 5 18:07:19 Problem Notes None recorded. Medical Equipment None Reported. Allergies Allergen ID Allergen Name Allergen Category Reaction Reaction Severity Criticality Documentation Date Start Date Code Code System Note Provider Name and Address Organization Details Recorded Time 05779 lisinopri l medicatio n Not available Not available Not available 02/28/20242023 97563 RxNorm Not Available [facility] 18:27:27 03410 Substance with sulfonami de structure and antibacte rial mechanism of action (substanc e) medicatio n rash Not available low 02/28/2024 82113 8003 SNOMED Flor Michel, SPENCER [address], [address], [place], [address], [facility] 4 08:56:03 52146 tramadol medicatio n Not available Not available Not available 02/28/20242023 23484 RxNorm Not Available [facility] 18:27:27 92941 Product containin g 3-hydroxy -3-methyl glutaryl- coenzyme A reductase inhibitor (product) medicatio n rash Not available unabletoasse 02/28/2024 02768 009 SNOMED Flor Michel, SPENCER [address], [address], [place], [address], [facility] 4 08:56:37 90434 hydrochlo rothiazid e medicatio n Not available Not available Not available 02/28/20242023 5487 RxNorm Not Available [facility] 18:27:27 Medications Name Sig Start Date Stop Date Status Note LastModified by Organization Details LastModified Time furosemide 40 mg tablet Give 1 tablet by mouth one time a day 2024 active Not Available Not Available Not Avai lable Hep Flush-10 (PF) 10 unit/mL intravenous solution Use 5 ml intraveno usly three times a day for After ABT & NS flush, Line maintenan ce AND Use 5 ml intraveno usly as needed for sluggish line - after NS Flush all lumens with 0.9% Sodium Chloride 10ml, then Heparin (10 units/ml) 5ml at least every 8 hours and PRN to maintain catheter patency. 2024 active Not Available Not Available Not Avai lable Normal Saline 0.9 % injection solution Use 10 ml intraveno usly as needed for sluggish line Flush at least every 8 hours and PRN to maintain catheter patency. AND Use 10 ml intraveno usly one time a day for prior to ABT AND Use 10 ml intraveno usly three times a day for Post ABT, prior to heparin flush, line maintenan ce 2024 active Not Available Not Available Not Avai lable Proventil 2.5 mg/3 mL (0.083 %) solution for nebulizatio n 1 vial inhale orally via nebulizer every 6 hours as needed for wheezing 2024 active Not Available Not Available Not Avai lable atenolol 25 mg tablet Give 1 tablet by mouth one time a day 2024 active Not Available Not Available Not Avai lable methotrexat e sodium 2.5 mg tablet Give 10 tablet by mouth one time a day every Sat 2024 active Not Available Not Available Not Avai lable prednisone 1 mg tablet Give 4 tablet by mouth one time a day 2024 active Not Available Not Available Not Avai lable levothyroxi ne 50 mcg tablet Give 1 tablet by mouth one time a day for hypothyro id 2024 active Not Available Not Available Not Avai lable furosemide 20 mg tablet Give 3 tablet by mouth one time a day 2024 active Not Available Not Available Not Avai lable Laxative (sennosides ) 8.6 mg tablet Give 1 tablet by mouth every 24 hours as needed for Constipat ion 2024 active Not Available Not Available Not Avai lable cholecalcif dajuan (vitamin D3) 10 mcg (400 unit) tablet Give 2 tablet by mouth one time a day 2024 active Not Available Not Available Not Avai lable atenolol 50 mg tablet Give 50 mg by mouth one time a day for High blood Pressure 2024 active Not Available Not Available Not Avai lable doxazosin 2 mg tablet Give 1 tablet by mouth one time a day 2024 active Not Available Not Available Not Avai lable oxycodone 5 mg tablet Give 5 mg by mouth every 4 hours as needed for Pain Take with the 20mg to equal 25mg 2024 active Not Available Not Available Not Avai lable Folvite 1 mg tablet Give 1 tablet by mouth one time a day 2024 active Not Available Not Available Not Avai lable duloxetine 60 mg capsule,del ayed release Give 1 capsule by mouth at bedtime May cause drowsines s, avoid alcohol, do not crush/marisela w, swallow whole 2024 active Not Available Not Available Not Avai lable pregabalin 100 mg capsule Give 2 capsule by mouth two times a day for pain for 1 Day 07/05 completed Not Available Not Available Not Available Lyrica 200 mg capsule Take 1 capsule twice a day by oral route. 2024 active Not Available Not Available Not Avai lable ertapenem 1 gram intravenous solution Use 1 gram intraveno usly one time a day until 23:59 07/08 completed Not Available Not Available Not Available oxycodone 20 mg tablet Give 20 mg by mouth every 4 hours as needed for Pain Take with 5mg tab to equal TD 25mg 2024 active Not Available Not Available Not Avai lable oxycodone 10 mg tablet Give 2 tablet by mouth every 4 hours as needed for pain for 1 Day 07/04 completed Not Available Not Available Not Available sodium phosphates 19 gram-7 gram/197 mL enema Insert 1 unit rectally every 24 hours as needed for Constipat ion Use only if Bisacodyl Supposito ry is ineffecti ve 2024 active Not Available Not Available Not Avai lable naloxone 4 mg/actuatio n nasal spray 1 spray in right nostril as needed for Opioid Overdose. If an additiona l dose is needed, alternate nostril, may repeat every 2 to 3 minutes until patient responds. 2024 active Not Available Not Available Not Avai lable One[facility]X Bisacodyl 10 mg rectal suppository Insert 1 supposito ry rectally every 24 hours as needed for constipat ion Use if Senna is Ineffecti ve 2024 active Not Available Not Available Not Avai lable Vitals Date Recorded Heart rate Respiratory rate Body temperature Oxygen saturation Oxygen saturation in Arterial blood by Pulse oximetry Systolic And Diastolic Provider Name and Address Organization Details Last Updated DateTime 5 68 /min 18 /min 97.7 [degF] 96 % 96 % 142/80 mm[Hg] LYRIC LOU [address] [facility], [address], [place], [address], [facility] 5 14:35:37 Date Recorded Heart rate Respiratory rate Body temperature Oxygen saturation Oxygen saturation in Arterial blood by Pulse oximetry Systolic And Diastolic Provider Name and Address Organization Details Last Updated DateTime 5 68 /min 18 /min 97.7 [degF] 96 % 96 % 142/80 mm[Hg] LYRIC LOU [address] [facility], [address], [place], [address], [facility] 5 17:18:40 Date Recorded Respiratory rate Body temperature Heart rate Oxygen saturation Oxygen saturation in Arterial blood by Pulse oximetry Systolic And Diastolic Provider Name and Address Organization Details Last Updated DateTime 5 18 /min 97.5 [degF] 68 /min 95 % 95 % 132/72 mm[Hg] LYRIC LOU [address] [facility], [address], [place], [address], [facility] 5 09:52:04 Social History Question Answer Notes LastModified by Organizat ion Details LastModified Time Tobacco Smoking Status Former Smoker Flor Michel, SP[facility]ER [address] [facility], [facility] [address], [place], [address], [facility] 02/28/2024 09:04:02 Do You Have An Advance Directive? Yes Information not available 02/28/2024 What Is Your Code Status? Full Code Information not available 02/28/2024 Where Do You Live? SingleLevelHouse Information not available 07/04/2024 What Was The Date Of Your Most Recent Tobacco Screening? 07/03/2024 Information not available 07/04/2024 Do You Have An Out Of Hospital DNR? No Information not available 02/28/2024 What Is Your Relationship Status? Information not available 07/04/2024 How Much Tobacco Do You Smoke? No Information not available 07/04/2024 Has Tobacco Cessation Counseling Been Provided? No Na Information not available 02/28/2024 Do You Have Any Dietary Restrictions? No Information not available 02/28/2024 Sex: Female Functional Status Question Answer Note LastModified by Organizat ion Details LastModified Time Do you use any illicit or recreational drugs? No Information not available 02/28/2024 Do you or have you ever used any other forms of tobacco or nicotine? No Information not available 02/28/2024 What is your level of alcohol consumption? None Information not available 02/28/2024 Mental Status None recorded. Family History Nothing Reported Notes:Father and mother with heart disease Medical History No medical history recorded. Gynecological HistoryNo gynecological history recorded. Obstetrics History GPAL:G 0 P 0 0 0 0 Immunizations Vaccine Type Date Status Note Provider Nam e and Address Organization Details Recorded Time Pneumococcal conjugate PCV 13 0 completed Analy Kent [facility] 03/01/2024 12:57:19 pneumococcal polysaccharide PPV23 8 completed Analy Kent [facility] 03/01/2024 12:57:36 influenza, unspecified formulation 2 completed Analy Kent [facility] 03/01/2024 12:57:51 influenza, unspecified formulation 3 completed Analy Kent [facility] 03/01/2024 12:58:01 influenza, unspecified formulation 4 completed Analy Kent [facility] 03/01/2024 12:58:11 SARS-COV-2 (COVID-19) vaccine, UNSPECIFIED 1 completed Analy Kent [facility] 03/01/2024 12:58:28 SARS-COV-2 (COVID-19) vaccine, UNSPECIFIED 1 completed Analy Kent [facility] 03/01/2024 12:58:37 SARS-COV-2 (COVID-19) vaccine, UNSPECIFIED 2 [facility] 12:58:44 zoster, unspecified formulation 8 [facility] 12:59:01 Past Encounters Encounter ID Performer Location Encounter Start Date Encounter Closed Date Diagnosis/Indication Diagnosis SNOMED-CT Code Diagnosis ICD10 Code Diagnosis Note [id number] Flor Michel NP [address] [address] 02/28/2024 08:21:30 02/29/2024 11:51:58 Metabolic encephalopathy 42721435 G93.41 felt resolved from abx from UTI or large amount of narcotics while in hosp resolved at d/cchanged from dilaudid to oxycodonem onitor for changes in ms Chronic pain 46559267 G8 9.29 with hx of fibromyalg ia and RA, lymphedema , and tibia fractureno te: ? if confused in hosp from dilaudid or UTIpregaba josie 200 mg po bidoxycodo ne 20 mg po q 4hours (was increased here by from q 6-home dose 20mg po q 4)narcan prn unable to wake uppredniso ne 5 mg po daily prn arthritis flare and prednisone 4 mg qdmethotre xate 10 mg po qd mondaysdul oxetine 60 mg po qd ? pain or mood zaaxozzd37 /4 lidocaine patch to left knee am, left shoulder q pm. Bacteriuria 32187600 R82 .71 with ESBL felt to be colonized, seen by ID and no further treatmentg iven ceftriaxon e and ertampenum in hospmonito rcbc, bmp,s/s of fever etc.isolat ion per facility protocol Rheumatoid arthritis 698 14358 M06.9 see chronic pain abovefolic acid 1mg qdmonitor for flare Essential hypertension 51870569 I10 atenolol 25 mg qddoxazosi n 2mg qhs? for htnfurosem dereje 20 mg po qdmonitor bp, cardiac status Chronic ob structive pulmonary disease 23065145 J44.9 albuterol 2 puff po q 6 hours prn sob2 liters o2 at nocmonitor Depressive disorder 3548 9007 F32.A buproprion 450 mg qdduloxeti ne 60 mg qdpsych prn Gastroesop hageal reflux disease 240892101 K21.9 omeprazole 40 mg qdzofran 4 mg po q 8 prn n/vmonitor Hypothyroidism 28978250 E03.9 levothyrox ine 50 mcg qdtsh, free t4 prnmonitor Fracture of tibia 672648 02 S82.202D xray showing acute fracture of [...] surgery recommende d.FU outpt with surgeon in [place] recommende d.see chronic pain for management ergocalcif dajuan 1250 mcg po mondaysmon itor for changes, increased pain, or need for referral earlier Congestive heart failure 10196776 I50.9 lasix 20 mg po qdmonitor vitals, cardiac status Asthenia 71066791 R53.1 PT OT eval and treatwheel chair at baseline with self transfers, NWB to left tibiamonit or Recurrent falls 00715928 2 R29.6 PT OT eval and treatwheel chair at baseline with self transfers, NWB to left tibiamonit or [id number] LYRIC LOU REDANITA [address] [place] [address] 07/03/2024 11:14:27 07/04/2024 20:19:17 Chronic pain 03163312 G89.29 Closed fra cture of tibia AND fibula 325014992 S82.201D S82.401D Hx of right leg fractures from 2 years ago -11/27/2023 CT RLE extensivel y comminuted , subacute or chronic appearing fractures throughout the medial and lateral tibial plateaus.O rthopedic surgery consulted -Unclear acuity of the right tibia-fibu la fracture, no surgical interventi on. 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 een by vascular no immediate interventi oncan f/u with vasculer as needed Adrenal incidentaloma 97 75462087 9105 E27.8 06/26 CT abdomen 2.1 cm solid nodule in the left adrenalout patient follow-up Hypokalemia 90599215 E87 .6 Repleted Rheumatoid arthritis 698 02498 M06.9 continue home prednisone 4mg dailyconti nue methotrexa te 25mg weekly Rhabdomyolysis 239365106 M62.82 resolvedre nal fxn improved with IVFTransam initis, hyperbilir ubinemia (E80.6) resolvedLF Ts spontaneou sly improved Hypothyroidism 38509001 E03.9 cont Levothyrox ine 50 mcg Gastroesop hageal reflux disease 253688282 K21.9 cont omeprazole [address] Bruno tr act infectious disease 06521578 N39.0 With ESBLcont ertapenam 1g until 07/07 Depressive disorder 3548 9007 F32.A cont bupropion, duloxetine qd Essential hypertension 28304468 I10 cont doxazosin, atenolol Chronic pr imary low back pain 4447661507 7100 M54.59 G89.29 cont oxycodone 22.5 mg Q 4 prncont lyrica 200 mg [place] [id number] [place] [address] 07/05/2024 09:38:19 07/05/2024 13:05:53 Closed fracture of tibia AND fibula 233120265 S82.201D S82.401D Orthopedic surgery consulted -Unclear acuity of the right tibia-fibu la fracture, no surgical interventi on. Recommendi ng WBAT RLE, TDWB LLE.cont PT/OTincre ase oxycodone to 25 mg q4 prn for better pain management Essential hypertension 95886244 I10 increase atenolol to 50 mg daily Chronic pr imary low back pain 9249101576 7100 M54.59 G89.29 now on oxycodone 25mg Q 4 prncont lyrica 200 mg bid [id number] [place] [address] 07/08/2024 11:22:28 07/24/2024 12:57:03 Chronic obstructive pulmonary disease 95940313 J44.9 requiring oxygen WHEN sleepingre start PRN beta-agoni sts as needed Essential hypertension 27139802 I10 on furosemide 40mg / atenolol 50mg / doxasozin 2mg Hypothyroidism 50857093 E03.9 on maintenanc e replacemen t therapy Rheumatoid arthritis 698 15923 M06.9 on MTX/folate and prednisone maintenanc e therapyunc lear at this time if she has been tried on bisphospho jacob therapy but given the timing of leg fractures, timing has been inopportun e. Given acute fractures, this can be deferred at the outpatient Adrenal incidentaloma 97 48562203 9105 E27.8 Drug therapy finding 309 980625 Z79.891 appears to be only as needed; may need scheduled doses when appropriat e Chronic pain syndrome 37 4583383 G89.4 on COATS / duloxetine / pregabalin comorbid fibromyalg ia, reports primarily joint pains / back pain as the main pain triggers Infection caused by extended spectrum beta-lactamase producing Escherichia coli 837330546 A49.8 Z16.12 on meropenam with last dose schedule 07/06/2024 Lymphedema of left lower limb 4304904240 4785763 I89.0 followed by vascular History of fall 07811308 9 Z91.81 secondary to dehydratio n / sepsisACUT E right sided rib fractures (5-8 lalterally , 10 posteriorl y), nondisplac ed fracture of RIGHT transverse process at L1. Clinical finding 6816437 03 Z74.09 wheelchair bound prior to hospitaliz ation; she's been able to stand and pivot on the RIGHT leg for transfer (Feb 2024 admission for LEFT tib/fib fx and NWB on discharge from that admission) . Recurrent urinary tract infection 759108884 N39.0 may benefit from topical / intravagin al hormone therapy Mood disorder 17512659 F 39 on bupropion Gastroesop hageal reflux disease without esophagitis 093370181 K21.9 on PPI Chronic co mbined systolic and diastolic heart failure 4981372779 55514 I50.42 suspected restrictiv e disease; on lasix maintenanc e; appears compensate d Closed fra cture of five ribs 35050767 S22.41XD as above [id number] JUNIOR VILLEGAS, [employer] MANAGER [place] [address] [place] [address] 07/12/2024 09:46:18 07/16/2024 12:02:42 Closed fracture of tibia AND fibula 326406679 S82.201D S82.401D Orthopedic surgery consulted -Unclear acuity of the right tibia-fibu la fracture, no surgical interventi on. Recommendi ng WBAT RLE, TDWB LLE.cont PT/OTcont oxycodone to 25 mg q4 prn for better pain management pain is controlled Essential hypertension 30703715 I10 better control with atenolol increasedi mproved SBP now 130-140's/ previoulsy 170scpnt atenolol to 50 mg daily Chronic pr imary low back pain [id number] 7100 M54.59 G89.29 cont oxycodone 25mg Q 4 prncont lyrica 200 mg bidcont PT/OT [id number] LYRIC LOU REDANITA [address] [place] [address] 07/15/2024 16:25:38 07/17/2024 13:30:53 Closed fracture of tibia AND fibula 151722487 S82.201D S82.401D Orthopedic surgery consulted -Unclear acuity of the right tibia-fibu la fracture, no surgical interventi on. Recommendi ng WBAT RLE, TDWB LLE.cont PT/OTcont oxycodone to 25 mg q4 prn for better pain management pain is controlled Essential hypertension 08443564 I10 continue atenolol 50 mg qd Chronic pr imary low back pain 1690666944 7100 M54.59 G89.29 pain is controlled cont oxycodone 25mg Q 4 prncont lyrica 200 mg bidcont PT/OT Lymphedema 498303150 I89 .0 Continue furosemide 40 Mg daily increased to 60 mg. [id number] LYRIC LOU [address] [place] [address] 07/18/2024 11:10:56 07/24/2024 12:49:27 Closed fracture of tibia AND fibula 220538188 S82.201D S82.401D stabkeOrth opedic surgery consulted -Unclear acuity of the right tibia-fibu la fracture, no surgical interventi on. Recommendi ng WBAT RLE, TDWB LLE.cont PT/OTcont oxycodone to 25 mg q4 prn for better pain management pain is controlled Essential hypertension 02565845 I10 stablecont inue atenolol 50 mg qd Chronic pr imary low back pain 6096433285 7100 M54.59 G89.29 stablepain is controlled cont oxycodone 25mg Q 4 prncont lyrica 200 mg bidcont PT/OT Lymphedema 752371504 I89 .0 stableCont inue furosemide 60 Mg daily 440036 LYRIC LOU [address] [place] [address] 07/22/2024 17:23:19 07/24/2024 12:50:21 Closed fracture of tibia AND fibula 328788765 S82.201D S82.401D stableOrth opedic surgery consulted -Unclear acuity of the right tibia-fibu la fracture, no surgical interventi on. Recommendi ng WBAT RLE, TDWB LLE.cont PT/OTcont oxycodone to 25 mg q4 prn for better pain management pain is controlled Essential hypertension 02987894 I10 stablecont inue atenolol 50 mg qd Chronic pr imary low back pain 7926697269 7100 M54.59 G89.29 stablepain is controlled cont oxycodone 25mg Q 4 prncont lyrica 200 mg bidcont PT/OT Lymphedema 904226178 I89 .0 stableCont inue furosemide 60 Mg daily [address] [address] 07/25/2024 08:29:59 07/29/2024 14:24:01 Closed fracture of tibia AND fibula 926325883 S82.201D S82.401D Hx of right leg fractures from 2 years ago -11/27/2023 CT RLE extensivel y comminuted , subacute or chronic appearing fractures throughout the medial and lateral tibial plateaus.O rthopedic surgery consulted -Unclear acuity of the right tibia-fibu la fracture, no surgical interventi on.Recomme nding WBAT RLE, TDWB LLE.PT/OT eval and tx Lymphedema 260563915 I89 .0 stableCont inue furosemide 40 Mg daily Aortic thromboembolism 577489465 I74.10 stableChro gato aortic mural thrombusCh ronic inferior mesenteric artery occlusions een by vascular no immediate interventi oncan f/u with vascular as needed Adrenal incidentaloma 97 60956565 9105 E27.8 4/ CT abdomen 2.1 cm solid nodule in the left adrenalout patient follow-up Hypokalemia 04374409 E87 .6 Repleted/ resolvedfo llow labs and need to start QD supplement kcl due to diuretic Rheumatoid arthritis 698 13033 M06.9 stablecont inue home prednisone 4mg dailyconti nue methotrexa te 25mg weekly Rhabdomyolysis 288537583 M62.82 resolvedre nal fxn improved with IVFTransam initis, hyperbilir ubinemia (E80.6) resolvedLF Ts spontaneou sly improved Hypothyroidism 08675336 E03.9 cont Levothyrox ine 50 mcg Gastroesop hageal reflux disease 441753921 K21.[address] Depressive disorder 3548 9007 F32.A stablecont bupropion, duloxetine qd Essential hypertension 66711067 I10 stablecont doxazosin, atenolol Chronic pr imary low back pain 0743094838 7100 M54.59 G89.29 stablecont oxycodone 22.5 mg Q 4 prncont lyrica 200 mg bid Health Concerns Section Related Observation LastModified by Organization Detai ls LastModified Time None Recorded Concern Status LastModified by Organization Details LastModified Time None Recorded Advance Directives Directive Y: Payers Insurance Date Sequence Insurance Name Policy Number Policy Hassan Covered Member ID Hassan Member ID Guarantor Name 07/25/2024 1 [facility] (MEDICARE REPLACEMENT/A DVANTAGE - PPO) [id number] Alexandrea Renee [id number] Alexandrea Renee Notes Date Note Type Note Provider Name and Address Organization Details Recorded Time 07/12/2024 text/html Alexandrea is a 74 y /o female seen for acute rounding visit, she is here s/p right-sided rib fx, Compression fractures of T12 likely chronic , nondisplaced fracture of right transverse process L1 , right tib/fib fx and IV therapy for UTI / complicated with ESBL ,e coli. currently she is stable, pain is controlled on current dose and schedule, she has been working on goals with therapy. she is stable in NAD. There are no acute nursing concerns. LYRIC LOU [address] [facility], [address], [place], [address], [facility] 07/15/2024 14:41:26 07/15/2024 text/html Alexandrea is a 74 y /o female seen for acute rounding visit, she is here s/p right-sided rib fx, Compression fractures of T12 likely chronic , nondisplaced fracture of right transverse process L1 , right tib/fib fx and IV therapy for UTI / complicated with ESBL ,e coli. She continue to improve and feel stronger, she feels ready to go home. she previously asked for evening lasix 40 mg to be discontinued, she now is requesting that lasix be restarted at a lower dose due to puffiness . she does not appear to be in fluid overload. Her pain is controlled, she is an assist with adls, she is eating and drinking ok. There are ni acute nursing concerns. LYRIC LOU [address] [facility], [address], [place], [address], [facility] 07/16/2024 17:30:48 07/18/2024 text/html Alexandrea is a 74 y /o female seen for acute rounding visit, she is here s/p right-sided rib fx, Compression fractures of T12 likely chronic , nondisplaced fracture of right transverse process L1 , right tib/fib fx and IV therapy for UTI / complicated with ESBL ,e coli. Alexandrea continues to do well, she does not appear to be in any distress, her pain is controlled, she feels that she is ready to go home. LYRIC LOU [address] [facility], [address], [place], [address], [facility] 07/22/2024 17:39:41 07/22/2024 text/html Alexandrea is a 74 y /o female seen for acute rounding visit, she is here s/p right-sided rib fx, Compression fractures of T12 likely chronic , nondisplaced fracture of right transverse process L1 , right tib/fib fx and IV therapy for UTI / complicated with ESBL ,e coli. Medically she has been stable; Alexandrea continues to do well, she does not appear to be in any distress, her pain is controlled, she feels that she is ready to go home. She was restarted on lasix BID per her requested to decreased lymphedema in LLE extremity. LYRIC LOU [address] [facility], [address], [place], [address], [facility] 07/23/2024 19:21:15 07/25/2024 text/html Discharge This is a 74yr old femal patient with a history of RA on methotrexate and chronic prednisone, HTN, chronic lymphedema, PAD, chronic pain, COPD and recurrent UTI with history of ESBL E. coli UTI, Admitted to [facility] for rehab . presented to ED lethargic and weak after unwitnessed fall, found to have a UTI / complicated with ESBL ,e coli and right-sided rib fx, Compression fractures of T12 likely chronic , nondisplaced fracture of right transverse process L1, rhabdo with elevated Cr and LFTs. IV meropenem initiated and switched to ertapenem on discharge to SNF. Alexandrea is alert and oriented, medically she has been stable, her pain has been controlled. She is eating and drinking at her baseline, no concerns with elimination. There are no CV issue, she is euvolemic, with no gross lymphedema. She has progressed with therapy for a safe discharge, she is at her PLOF. Alexandrea can be discharge to home with medication and VNA with services.she will follow up with her PCP within the next 2 weeks. LYRIC LOU [address] [facility], [address], [place], [address], [facility] [employer] 07/25/2024 09:54:37 OBGyn Episode No OBEpisode recorded.
--- OUTSIDE RECORDS SUMMARY | 2024-10-07 10:38 | XMS_ITS | Patient Health Record ---
Author Organization [facility] Address [address] [facility] [address] [place] [address] Care Team Providers Care Inspector Experimental Assembly Name Role Phone Carlos Alberto Murray Primary Care Provider Eduardo Carr MD MSc, Juju Unavailable [phone] Johnny Blanco Unavailable Unavailable Allergies Allergen (clinical drug ingredient) Drug/Non Drug Allergy documented on EMR Reaction Allergy Type Onset Date Status Statins Support severe muscle pain in legs Drug Allergy Active sulfa rash, itching Drug Allergy Act shawanda Reason For Referral No Information Medications Medication SIG (Take, Route, Frequency, Duration) Notes Start Date End Date Status Imipramine HCl 10 MG 1 Orally qhs Active cloNIDine HCl 0.2 MG 1 tablet Orally qid Active Cymbalta 20 MG Orally 60mg qam, 40 mg qpm Active oxyCODONE-Acetaminophen 7.5-325 MG 1 tablet as needed Orally tid prn. To be filled on 07/08/15 for 14 days Active Lidoderm 5 % 1 patch to intact skin remove after 12 hours Externally Once a day for 30 days Active Lyrica 100 MG 1 capsule Orally bid for 30 days Active oxyCODONE-Acetaminophen 7.5-325 MG 1 tablet as needed Orally bid next filled date 08/19/15 for 28 days Active Lasix 20 MG 1 tablet Orally once a day prn Active Cyclobenzaprine HCl 10 MG 1 tablet Orall y TID PRN Takes as needed/rarely Active Ambien 10 MG 1 tablet at bedtime as needed Orally 3-4 times a week Active Social History Alcohol screen Question Answer Notes Interpretation Negative Drug Question Answer Notes Have you used drugs other th an those for medical reasons in the past 12 months? No Section Notes: Opioid Risk Tool: 1) Family History of: Alcohol use +1; Illegal Drug use 0; Prescription drug use 0; 2) Personal history of: Alcohol use 3; Illegal drug use 0; Prescription drug misuse 0; 3) Age (16-45) 0; 4) History of preadolescent abuse 0; 5) Psychological disease: ADD, OCD (yes), Bipolar, Schizophrenia +2; Depression +1. Total: _4_ Risk: Moderate 4-7 ( ~28% risk of opioid misuse) Opioid Risk Tool: 1) Family History of: Alcohol use +1; Illegal Drug use 0; Prescription drug use 0; 2) Personal history of: Alcohol use 3; Illegal drug use 0; Prescription drug misuse 0; 3) Age (16-45) 0; 4) History of preadolescent abuse 0; 5) Psychological disease: ADD, OCD (yes), Bipolar, Schizophrenia +2; Depression +1. Total: _4_ Risk: Moderate 4-7 ( ~28% risk of opioid misuse) Opioid Risk Tool: 1) Family History of: Alcohol use +1; Illegal Drug use 0; Prescription drug use 0; 2) Personal history of: Alcohol use 3; Illegal drug use 0; Prescription drug misuse 0; 3) Age (16-45) 0; 4) History of preadolescent abuse 0; 5) Psychological disease: ADD, OCD (yes), Bipolar, Schizophrenia +2; Depression +1. Total: _4_ Risk: Moderate 4-7 ( ~28% risk of opioid misuse) Opioid Risk Tool: 1) Family History of: Alcohol use +1; Illegal Drug use 0; Prescription drug use 0; 2) Personal history of: Alcohol use 3; Illegal drug use 0; Prescription drug misuse 0; 3) Age (16-45) 0; 4) History of preadolescent abuse 0; 5) Psychological disease: ADD, OCD (yes), Bipolar, Schizophrenia +2; Depression +1. Total: _4_ Risk: Moderate 4-7 ( ~28% risk of opioid misuse) Opioid Risk Tool: 1) Family History of: Alcohol use +1; Illegal Drug use 0; Prescription drug use 0; 2) Personal history of: Alcohol use 3; Illegal drug use 0; Prescription drug misuse 0; 3) Age (16-45) 0; 4) History of preadolescent abuse 0; 5) Psychological disease: ADD, OCD (yes), Bipolar, Schizophrenia +2; Depression +1. Total: _4_ Risk: Moderate 4-7 ( ~28% risk of opioid misuse) Opioid Risk Tool: 1) Family History of: Alcohol use +1; Illegal Drug use 0; Prescription drug use 0; 2) Personal history of: Alcohol use 3; Illegal drug use 0; Prescription drug misuse 0; 3) Age (16-45) 0; 4) History of preadolescent abuse 0; 5) Psychological disease: ADD, OCD (yes), Bipolar, Schizophrenia +2; Depression +1. Total: _4_ Risk: Moderate 4-7 ( ~28% risk of opioid misuse) Opioid Risk Tool: 1) Family History of: Alcohol use +1; Illegal Drug use 0; Prescription drug use 0; 2) Personal history of: Alcohol use 3; Illegal drug use 0; Prescription drug misuse 0; 3) Age (16-45) 0; 4) History of preadolescent abuse 0; 5) Psychological disease: ADD, OCD (yes), Bipolar, Schizophrenia +2; Depression +1. Total: _4_ Risk: Moderate 4-7 ( ~28% risk of opioid misuse) Opioid Risk Tool: 1) Family History of: Alcohol use +1; Illegal Drug use 0; Prescription drug use 0; 2) Personal history of: Alcohol use 3; Illegal drug use 0; Prescription drug misuse 0; 3) Age (16-45) 0; 4) History of preadolescent abuse 0; 5) Psychological disease: ADD, OCD (yes), Bipolar, Schizophrenia +2; Depression +1. Total: _4_ Risk: Moderate 4-7 ( ~28% risk of opioid misuse) Opioid Risk Tool: 1) Family History of: Alcohol use +1; Illegal Drug use 0; Prescription drug use 0; 2) Personal history of: Alcohol use 3; Illegal drug use 0; Prescription drug misuse 0; 3) Age (16-45) 0; 4) History of preadolescent abuse 0; 5) Psychological disease: ADD, OCD (yes), Bipolar, Schizophrenia +2; Depression +1. Total: _4_ Risk: Moderate 4-7 ( ~28% risk of opioid misuse) Opioid Risk Tool: 1) Family History of: Alcohol use +1; Illegal Drug use 0; Prescription drug use 0; 2) Personal history of: Alcohol use 3; Illegal drug use 0; Prescription drug misuse 0; 3) Age (16-45) 0; 4) History of preadolescent abuse 0; 5) Psychological disease: ADD, OCD (yes), Bipolar, Schizophrenia +2; Depression +1. Total: _4_ Risk: Moderate 4-7 ( ~28% risk of opioid misuse) Opioid Risk Tool: 1) Family History of: Alcohol use +1; Illegal Drug use 0; Prescription drug use 0; 2) Personal history of: Alcohol use 3; Illegal drug use 0; Prescription drug misuse 0; 3) Age (16-45) 0; 4) History of preadolescent abuse 0; 5) Psychological disease: ADD, OCD (yes), Bipolar, Schizophrenia +2; Depression +1. Total: _4_ Risk: Moderate 4-7 ( ~28% risk of opioid misuse) Opioid Risk Tool: 1) Family History of: Alcohol use +1; Illegal Drug use 0; Prescription drug use 0; 2) Personal history of: Alcohol use 3; Illegal drug use 0; Prescription drug misuse 0; 3) Age (16-45) 0; 4) History of preadolescent abuse 0; 5) Psychological disease: ADD, OCD (yes), Bipolar, Schizophrenia +2; Depression +1. Total: _4_ Risk: Moderate 4-7 ( ~28% risk of opioid misuse) Opioid Risk Tool: 1) Family History of: Alcohol use +1; Illegal Drug use 0; Prescription drug use 0; 2) Personal history of: Alcohol use 3; Illegal drug use 0; Prescription drug misuse 0; 3) Age (16-45) 0; 4) History of preadolescent abuse 0; 5) Psychological disease: ADD, OCD (yes), Bipolar, Schizophrenia +2; Depression +1. Total: _4_ Risk: Moderate 4-7 ( ~28% risk of opioid misuse) Opioid Risk Tool: 1) Family History of: Alcohol use +1; Illegal Drug use 0; Prescription drug use 0; 2) Personal history of: Alcohol use 3; Illegal drug use 0; Prescription drug misuse 0; 3) Age (16-45) 0; 4) History of preadolescent abuse 0; 5) Psychological disease: ADD, OCD (yes), Bipolar, Schizophrenia +2; Depression +1. Total: _4_ Risk: Moderate 4-7 ( ~28% risk of opioid misuse) Opioid Risk Tool: 1) Family History of: Alcohol use +1; Illegal Drug use 0; Prescription drug use 0; 2) Personal history of: Alcohol use 3; Illegal drug use 0; Prescription drug misuse 0; 3) Age (16-45) 0; 4) History of preadolescent abuse 0; 5) Psychological disease: ADD, OCD (yes), Bipolar, Schizophrenia +2; Depression +1. Total: _4_ Risk: Moderate 4-7 ( ~28% risk of opioid misuse) Opioid Risk Tool: 1) Family History of: Alcohol use +1; Illegal Drug use 0; Prescription drug use 0; 2) Personal history of: Alcohol use 3; Illegal drug use 0; Prescription drug misuse 0; 3) Age (16-45) 0; 4) History of preadolescent abuse 0; 5) Psychological disease: ADD, OCD (yes), Bipolar, Schizophrenia +2; Depression +1. Total: _4_ Risk: Moderate 4-7 ( ~28% risk of opioid misuse) Opioid Risk Tool: 1) Family History of: Alcohol use +1; Illegal Drug use 0; Prescription drug use 0; 2) Personal history of: Alcohol use 3; Illegal drug use 0; Prescription drug misuse 0; 3) Age (16-45) 0; 4) History of preadolescent abuse 0; 5) Psychological disease: ADD, OCD (yes), Bipolar, Schizophrenia +2; Depression +1. Total: _4_ Risk: Moderate 4-7 ( ~28% risk of opioid misuse) Problems Problem Type SNOMED Code ICD Code Onset Dates Problem Status W/U Status Risk Notes Problem Sciatica (20377080) Sciatica (724.3) Active confirmed Problem Lumbosacral spondylosis without myelopathy (27458208) Lumbosacral spondylosis without myelopathy (721.3) Active confirmed Problem Myalgia/myositi s - multiple (444752767) Unspecified myalgia and myositis (729.1) Active confirmed Problem 84889987 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) Active confirmed Problem Lumbosacral spondylosis without myelopathy (42981228) Spondylosis without myelopathy or radiculopathy, lumbosacral region (M47.817) Active confirmed Problem 3707021 Other spondylosi s, lumbar region (M47.896) Active confirmed Problem High risk drug monitoring status (726731273) [facility] current use of opiate analgesic (Z79.891) Active confirmed Problem 895229441 Lumbar spondylos is (M47.816) Active confirmed Problem 95711860 Left shoulder pa in (M25.512) Active confirmed Problem 3795530 Spondylosis (M47.9) Active confirmed Problem 6640589 Postherpetic neuralgia (B02.29) Active confirmed Problem 58696278 Shoulder pain (M25.519) Active confirmed Plan Of Treatment Pending Test Test Name Order Date Urine toxicology - Medicare 02/03/2015 Urine toxicology - Medicare 02/16/2015 Urine toxicology - Medicare 03/04/2015 Urine toxicology - Medicare 04/01/2015 Urine toxicology - Medicare 04/23/2015 Urine toxicology - Medicare 05/04/2015 Urine toxicology - Medicare 06/10/2015 Urine toxicology - Medicare 07/02/2015 Urine toxicology - Medicare 07/21/2015 Urine toxicology - Medicare 08/18/2015 Insurance Providers Payer Name Payer Address Payer Phone Subscriber Number Group Number Insured Name Patient Relationship to Insured Coverage Start Date Coverage End Date MEDICARE NGS [address] [place] [phone] [id number] Alexandrea Renee Self - patient is the insured Medical (General) History Medical History History ICD Code Depression Hypercholesterolemia Arthritis Fibromyalgia OCD peripheral neuropathy Surgical History Surgery Date(Month/Year) L knee replacement 2003 L knee revision 2010 Uterine Ablation Tubal Ligation R knee Meniscus repair 2011
--- OUTSIDE RECORDS SUMMARY | 2024-10-07 10:38 | XMS_ITS | Encounter Summary ---
Author Organization [facility] [address] Address [address] [place] [address] Care Team Providers Care Microsystems Engineer Name Role Phone Travis Holbrook MD Primary Care Provider [phone] Encounter Details Date Type Department Care Team (Late st Contact Info) Description 07/26/2024 Lab Requisition [facility] - Main Lab [address] [facility] [place] [address] Travis Holbrook MD [address] [place] [address] [address] [place], [phone] Muscle weakness (generalized); Emphysema, unspecified (CMS/HCC V24, [...] V28) documented in this encounter Care Teams Microsystems Engineer Relationship Specialty Start Date End Date Travis Holbrook MD [address] [facility] [address] [place], [phone] PCP - General Family Medicine 02/28/24 documented as of this encounter
[2024-10-07 10:50] LABS: Alanine Aminotransferase 10 U/L (0-31); Albumin Level 3.8 g/dL (3.5-5.0); Alkaline Phosphatase 103 U/L (39-117); Anion Gap 13 (12-20); Aspartate Amino Transferase 23 U/L (5-31); Blood Urea Nitrogen 14 mg/dL (9-16); Calcium 9.4 mg/dL (8.4-10.2); Carbon Dioxide 25 mmol/L (22-29); Chloride 104 mmol/L (96-108); Creatinine Clr Calc Pharmacy 49.1; Estimated Glomerular Filt Rate 45; Magnesium 1.9 mg/dL (1.6-2.6); Potassium 3.3 mmol/L (3.3-5.1); Sodium 139 mmol/L (135-145); Total Protein 7.3 g/dL (6.5-8.0)
[2024-10-07 11:46] LABS: Appearance Urine Cloudy; Glucose Urine UA Negative (Negative); PH 5.5 (5.0-9.0); Specific Gravity - Urine 1.010 (1.005-1.025); UMIC TRIGGER UACC YES
[2024-10-07 11:54] LABS: Other Crystals Urine Present; UACC Culture Trigger YES
[2024-10-07] MEDS: oxyCODONE HCl Immed Release 5 MG TABLET 10 MG PO (13:08)
--- NOTE | 2024-10-07 13:26 | PM.IMHP ---
History of Present Illness Date of Service: 10/07/24 Chief Complaint: confusion 74F PMH ESBL ecoli with bacteremia 06/2024, ESBL uti 08/2024, rheumatoid arthritis on methotrexate and chronic prednisone, hypertension, chronic lymphedema, peripheral vascular disease, COPD, BLADIMIR occlusion, presented with confusion. patient reports foggyness, confusion, not feeling herself for about 1 day. denies fever, chills, dysuria, states it feels like previous utis, in ED UA grossly positive. Review of Systems Review of Systems: Yes all other systems are reviewed and are negative [facility] Medical History Bacteriuria Urinary tract infection due to extended-spectrum beta lactamase (ESBL) producing Escherichia coli History of ESBL E. coli infection Osteomyelitis COPD (chronic obstructive pulmonary disease) Rheumatoid lung Hypothyroidism Congestive heart failure Fibromyalgia HTN (hypertension) Depression Rheumatoid arthritis Family History Father No problems noted. Other Heart disease Surgical History Hx of prior ablation treatment Knee joint replacement status Social History Household Members: None Household Members Other:: 0 Housing: Apartment Do you presently have visiting nurse or other home services: No Unable to assess alcohol history related to: Unable to respond Alcohol intake: never Comment: bedside commode Patient Tobacco Use Status: Former Tobacco user Tobacco use type: Cigarette Smoked in Last 30 Days: No e-Cigarette/Vaping Use: Never Used Second Hand Smoke Exposure: No Use of substances other than those prescribed or required for medical reasons: No Advance Directives: Yes Advance Directives on File: Yes Advance Directives Date on File: 09/29/23 Do you have a plan to hurt others: No Plan service: No Meds Allergies Allergy/AdvReac Type Severity Reaction Status Date / Time lisinopril (LISINOPRIL) Allergy Severe ANAPHYLAXIS Verified 10/07/24 09:46 Sulfa (Sulfonamide Allergy Intermediate RASH Verified 10/07/24 09:46 Antibiotics) (SULFA (SULFONAMIDE ANTIBIOTICS)) tramadol (TRAMADOL) Allergy Intermediate RASH Verified 10/07/24 09:46 Olokxur-TJW-DoJ Reductase Allergy Rash Verified 10/07/24 09:46 Inhibitor (Nopzcyg-Jct-Umz Reductase Inhibitor) hydrochlorothiazide (HCTZ) AdvReac Unknown ABNORMAL Verified 10/07/24 09:46 LABS? Active Medications: Current Medications Acetaminophen (Acetaminophen 325 Mg Tablet) 650 mg PO Q6H PRN PRN Reason: Pain, Mild 1-3,fever,headache Calcium Carbonate (Calcium Carbonate 750 Mg Tab.Chew) 750 mg PO Q4H PRN PRN Reason: Heartburn Enoxaparin Sodium (Enoxaparin Sodium 40 Mg/0.4 Ml Syringe) 40 mg SUBCUT Q24H [facility] Magnesium Hydroxide (Milk Of Magnesia 30 Ml Oral.Susp) 30 ml PO DAILY PRN PRN Reason: Constipation Melatonin (Melatonin 3 Mg Tablet) 6 mg PO BEDTIME PRN PRN Reason: Insomnia Meropenem (Meropenem 1 Gm Vial) 1 gm IVPUSH Q8H [facility] Sodium Chloride (0.9 % Sodium Chloride Flush 3 Ml Syringe) 3 ml IVFLUSH QSHIFT [facility] Home Medications ?Medication ?Instructions ?Recorded ?Confirmed ?Last Taken ?Type bupropion HCl 300 mg 24 hr tablet, 300 mg PO DAILY@89908/23/21 08/29/24 08/28/24 History extended release duloxetine 60 mg capsule,delayed 60 mg PO DAILY 08/23/21 08/29/24 08/28/24 History release levothyroxine 50 mcg tablet 50 mcg PO DAILY@62908/23/21 08/29/24 08/28/24 History methotrexate sodium 2.5 mg tablet 10 tab PO SA 08/23/21 08/29/24 08/24/24 History omeprazole 40 mg capsule,delayed 40 mg PO DAILY@62908/23/21 08/29/24 08/28/24 History release prednisone 1 mg tablet 4 mg PO DAILY 08/23/21 08/29/24 08/28/24 History pregabalin 200 mg capsule 200 mg PO BID 01/07/23 08/29/24 08/28/24 History folic acid 1 mg tablet 2 mg PO DAILY 10/13/23 08/29/24 08/28/24 History bupropion HCl 150 mg 24 hr tablet, 150 mg PO DAILY@0911/25/23 08/29/24 08/28/24 History extended release acetaminophen 325 mg tablet 650 mg PO Q4H PRN Moderate Pain 03/04/24 08/29/24 Unknown History (Tylenol) (Scale Score 5-6) ibuprofen 200 mg tablet 600 mg PO Q6H PRN Pain 05/03/24 08/29/24 Unknown History melatonin 10 mg tablet 10 mg PO BEDTIME PRN Sleep 05/03/24 08/29/24 Unknown History multivitamin 1 tab PO DAILY 05/03/24 08/29/24 08/28/24 History atenolol 25 mg tablet 50 mg PO DAILY 08/29/24 08/29/24 08/28/24 History fluticasone propionate 50 1 spray intranasal BID PRN Allergy 08/29/24 08/29/24 Unknown History mcg/actuation nasal Symptoms spray,suspension nystatin 100,000 unit/gram topical 1 appl topical BID 08/29/24 08/29/24 08/28/24 History cream sennosides 8.6 mg tablet (senna) 8.6 mg PO BEDTIME PRN Constipation 08/29/24 08/29/24 Unknown History sodium chloride 7 % for 4 ml inhalation BID 08/29/24 08/29/24 08/28/24 History nebulization furosemide 40 mg tablet 60 mg PO DAILY 10/07/24 Unknown History Physical Exam Vital Signs and Narrative: Vital Signs: Last Vital Signs Temp 97.8 F 10/07/24 09:49 Pulse 101 H 10/07/24 09:49 Resp 20 10/07/24 09:49 BP 169/78 H 10/07/24 09:49 Pulse Ox 92 10/07/24 09:49 O2 Del Method Room Air 10/07/24 09:49 BMI result Body Mass Index 29.9 General: AO X 3, no acute distress Resp: CTA bilateral, no accessory muscles used CVS: S1,S2,RRR GI: soft, non tender, non distended Neuro: motor grossly intact, alert Psych: appropriate affect, appropriate insight Results Labs 10/07/24 10:23 10/07/24 10:23 Labs: Laboratory Results - last 24 hr 10/07/24 10/07/24 10/07/24 10:23 10:24 11:28 MCV 88.9 MCH 30.7 MCHC 34.6 RDW 15.4 Plt Count 178 MPV 10.3 Immature Gran % (Auto) 0.5 H Neut % (Auto) 76.2 H Lymph % (Auto) 11.9 L [place] % (Auto) 9.2 Eos % (Auto) 1.8 Baso % (Auto) 0.4 Lymph # (Auto) 0.9 L [place] # (Auto) 0.7 Eos # (Auto) 0.1 Baso # (Auto) 0.0 Abs Immat Gran (auto) 0.04 H Absolute Neuts (auto) 6.0 Absolute Nucleated RBC 0.000 Nucleated RBC % (auto) 0.0 Anion Gap 13 Estim Creat Clear Calc 49.1 Estimated GFR 45 Random Glucose 168 H Lactic Acid 1.1 Calcium 9.4 D Magnesium 1.9 Total Bilirubin 0.3 Direct Bilirubin 0.1 AST 23 ALT 10 Alkaline Phosphatase 103 C-Reactive Protein 4.94 H Total Protein 7.3 Albumin 3.8 Urine Color Yellow Urine Appearance Cloudy Urine pH 5.5 Ur Specific [place] 1.010 Urine Protein Negative Urine Glucose (UA) Negative Urine Ketones Negative Urine Blood Trace H Urine Nitrite Negative Ur Leukocyte Esterase Large (3+) H Urine RBC 0-2 Urine WBC 21-50 H Ur Squamous Epith Cells 11-20 Other Crystals Present Urine Bacteria 4+ Hyaline Casts 3-5 Assessment and Plan (1) UTI due to extended-spectrum beta lactamase (ESBL) producing Escherichia coli: Status: Acute Plan 74F PMH ESBL ecoli with bacteremia 06/2024, ESBL uti 08/2024, rheumatoid arthritis on methotrexate and chronic prednisone, hypertension, chronic lymphedema, peripheral vascular disease, COPD, BLADIMIR occlusion, presented with confusion Acute metabolic encephalopathy due to recurrent UTI with concern for ESBL E coli Meropenem, follow up cultures, Infectious Disease eval Rheumatoid arthritis We will hold methotrexate Will treating infection Continue chronic prednisone Chronic pain with chronic opiate dependence Continue oxycodone COPD Stable Mood disorder Continue bupropion and duloxetine Hypertension Continue atenolol DVT prophylaxis with Lovenox Full Code Given history of multidrug resistant UTIs with sepsis and bacteremia expected require at least 2 midnights inpatient for IV antibiotics and resolution of cultures Quality Stroke Does the patient have a stroke diagnosis?: No VTE Prior VTE?: No VTE Risk Level:: Medical - moderate - high VTE Device Contraindication: Treatment Not Indicated VTE Drug Contraindication: N/A - Med Ordered
--- NOTE | 2024-10-07 14:30 | PHA.MEDREC ---
Addendum entered by Hay Clark ralph 10/07/24 14:47: MED REC REVIEWED BY [facility] Original Note: Pharmacy Consult ? Medication Reconciliation Pharmacy has completed the medication reconciliation. Spoke with pt and she confirmed her medications. Pt confirmed she was admitted with us 08/29-09/02 and states those medications were still up to date; I asked the pt about some medications out of the fill range (Atenolol 50mg, Bupropion 150mg and 300mg, Doxazosin 2mg, Duloxetine 60mg, Levothyroxine 50mcg, Omeprazole 40mg and Prednisone 1 mg) and the pt confirmed she has been in and out of the hospital but still has those left at home.
[2024-10-07 14:49] VITALS: BP 169/78; PULSE 101; RESP 20; TEMP 36.6; O2SAT 92
[2024-10-07 17:15] VITALS: BP 169/78; PULSE 101; RESP 20; TEMP 36.6; O2SAT 92
[2024-10-07 17:18] VITALS: BMI 34.6
[2024-10-07] MEDS: oxyCODONE HCl Immed Release 5 MG TABLET 20 MG PO ×2 (17:54→22:18)
[2024-10-07 18:00] VITALS: BP 153/78; PULSE 97; RESP 18; TEMP 36.4; O2SAT 98
[2024-10-07 19:24] VITALS: BP 152/84; RESP 18; TEMP 36.6; O2SAT 97
[2024-10-07] MEDS: 0.9 % Sodium Chloride Flush 3 ML SYRINGE IVFLUSH (19:59)
[2024-10-08 03:33] VITALS: BP 134/78; PULSE 100; RESP 20; TEMP 36.7; O2SAT 97
[2024-10-08 06:21] LABS: Hematocrit 35.9 % (37.0-47.0); Hemoglobin 12.0 g/dl (12.0-16.0); Mean Corpuscular HGB Conc 33.4 g/dl (31.0-35.0); Mean Corpuscular Hemoglobin 30.2 pg (27.0-33.0); Mean Corpuscular Volume 90.4 fL (80.0-98.0); NRBC Abs Auto 0.000 X10*3/uL (0.0-0.012); NRBC Pct Auto 0.0 /100WBC (0.0-0.2); Platelet Count 186 X10*3/uL (160-400); Red Blood Count 3.97 X10*6/uL (4.20-5.50); White Blood Count 7.2 X10*3/uL (4.8-10.8)
[2024-10-08 06:43] LABS: Anion Gap 16 (12-20); Blood Urea Nitrogen 18 mg/dL (9-16); Calcium 8.8 mg/dL (8.4-10.2); Carbon Dioxide 25 mmol/L (22-29); Chloride 102 mmol/L (96-108); Creatinine Clr Calc Pharmacy 42.0; Estimated Glomerular Filt Rate 35; Magnesium 1.9 mg/dL (1.6-2.6); Potassium 3.3 mmol/L (3.3-5.1); Sodium 140 mmol/L (135-145)
[2024-10-08 08:00] VITALS: BP 145/82; PULSE 85; RESP 18; TEMP 36.5; O2SAT 97
[2024-10-08] MEDS: 0.9 % Sodium Chloride Flush 3 ML SYRINGE IVFLUSH ×3 (08:50→21:12)
[2024-10-08] MEDS: buPROPion HCl XL 150 MG TAB.ER.24H PO (08:50)
[2024-10-08] MEDS: buPROPion HCl XL 300 MG TAB.ER.24H PO (08:50)
--- NOTE | 2024-10-08 09:06 | P.PNIM_ITS ---
Subjective Subjective Date of Service: 10/08/24 Interval History: still feeling brain fog Physical Exam 2 Vital Signs: Vital Signs: Last Vital Signs Temp 97.7 F 10/08/24 08:00 Pulse 85 10/08/24 08:00 Resp 18 10/08/24 08:00 BP 145/82 H 10/08/24 08:00 Pulse Ox 97 10/08/24 08:00 O2 Del Method Nasal Cannula 10/08/24 08:00 O2 Flow Rate 2.0 10/08/24 08:00 BMI result Body Mass Index 34.6 General: AO X 3, no acute distress Resp: CTA bilateral, no accessory muscles used CVS: S1,S2,RRR GI: soft, non tender, non distended Neuro: motor grossly intact, alert Psych: appropriate affect, appropriate insight Objective Data Active Medications Acetaminophen (Acetaminophen 325 Mg Tablet) 650 mg PO Q6H PRN PRN Reason: Pain, Mild 1-3,fever,headache Atenolol (Atenolol 50 Mg Tablet) 50 mg PO DAILY [facility]; Protocol Last Admin: 10/08/24 08:50 Dose: 50 mg Documented By: MAUREEN Bupropion HCl (Bupropion Hcl Xl 300 Mg Tab.Er.24h) 300 mg PO DAILY@0900 [facility] Last Admin: 10/08/24 08:50 Dose: 300 mg Documented By: MAUREEN Bupropion HCl (Bupropion Hcl Xl 150 Mg Tab.Er.24h) 150 mg PO DAILY@0900 [facility] Last Admin: 10/08/24 08:50 Dose: 150 mg Documented By: MAUREEN Calcium Carbonate (Calcium Carbonate 750 Mg Tab.Chew) 750 mg PO Q4H PRN PRN Reason: Heartburn Doxazosin Mesylate (Doxazosin Mesylate 2 Mg Tablet) 2 mg PO BEDTIME [facility]; Protocol Last Admin: 10/07/24 19:58 Dose: 2 mg Documented By: ANGELES Duloxetine HCl (Duloxetine Hcl 60 Mg Capsule.) 60 mg PO DAILY [facility] Last Admin: 10/08/24 08:50 Dose: 60 mg Documented By: MAUREEN Enoxaparin Sodium (Enoxaparin Sodium 40 Mg/0.4 Ml Syringe) 40 mg SUBCUT Q24H [facility] Last Admin: 10/08/24 08:48 Dose: 40 mg Documented By: AMUREEN Folic Acid (Folic Acid 1 Mg Tablet) 2 mg PO DAILY [facility] Last Admin: 10/08/24 08:50 Dose: 2 mg Documented By: MAUREEN Furosemide (Furosemide 20 Mg Tablet) 60 mg PO DAILY [facility]; Protocol Last Admin: 10/08/24 08:50 Dose: 60 mg Documented By: MAUREEN Levothyroxine Sodium (Levothyroxine Sodium 50 Mcg Tablet) 50 mcg PO DAILY@0600 [facility] Last Admin: 10/08/24 05:30 Dose: 50 mcg Documented By: ANGELES Magnesium Hydroxide (Milk Of Magnesia 30 Ml Oral.Susp) 30 ml PO DAILY PRN PRN Reason: Constipation Melatonin (Melatonin 3 Mg Tablet) 6 mg PO BEDTIME PRN PRN Reason: Insomnia Meropenem (Meropenem 1 Gm Vial) 1 gm IVPUSH Q8H [facility] Multivitamins/Vitamin C (Multivitamin Tablet) 1 tab PO DAILY [facility] Last Admin: 10/08/24 08:50 Dose: 1 tab Documented By: MAUREEN Omeprazole (Omeprazole 40 Mg Capsule.) 40 mg PO DAILY@0630 [facility] Last Admin: 10/08/24 05:30 Dose: 40 mg Documented By: ANGELES Oxycodone HCl (Oxycodone Hcl Immed Release 5 Mg Tablet) 20 mg PO Q4H PRN PRN Reason: pain (scale score 7-10) Last Admin: 10/07/24 22:18 Dose: 20 mg Documented By: ANGELES Prednisone (Prednisone 1 Mg Tablet) 4 mg PO DAILY [facility] Last Admin: 10/08/24 08:50 Dose: 4 mg Documented By: MAUREEN Pregabalin (Pregabalin 200 Mg Capsule) 200 mg PO BID [facility] Last Admin: 10/08/24 08:50 Dose: 200 mg Documented By: MAUREEN Sodium Chloride (0.9 % Sodium Chloride Flush 3 Ml Syringe) 3 ml IVFLUSH QSHIFT [facility] Last Admin: 10/08/24 08:50 Dose: 3 ml Documented By: MAUREEN Labs 10/08/24 05:42 10/08/24 05:42 Labs: Laboratory Results - last 24 hr 10/07/24 10/07/24 10/07/24 10:23 10:24 11:28 MCV 88.9 MCH 30.7 MCHC 34.6 RDW 15.4 Plt Count 178 MPV 10.3 Immature Gran % (Auto) 0.5 H Neut % (Auto) 76.2 H Lymph % (Auto) 11.9 L [place] % (Auto) 9.2 Eos % (Auto) 1.8 Baso % (Auto) 0.4 Lymph # (Auto) 0.9 L [place] # (Auto) 0.7 Eos # (Auto) 0.1 Baso # (Auto) 0.0 Abs Immat Gran (auto) 0.04 H Absolute Neuts (auto) 6.0 Absolute Nucleated RBC 0.000 Nucleated RBC % (auto) 0.0 Anion Gap 13 Estim Creat Clear Calc 49.1 Estimated GFR 45 Random Glucose 168 H Lactic Acid 1.1 Calcium 9.4 D Magnesium 1.9 Total Bilirubin 0.3 Direct Bilirubin 0.1 AST 23 ALT 10 Alkaline Phosphatase 103 C-Reactive Protein 4.94 H Total Protein 7.3 Albumin 3.8 Urine Color Yellow Urine Appearance Cloudy Urine pH 5.5 Ur Specific [place] 1.010 Urine Protein Negative Urine Glucose (UA) Negative Urine Ketones Negative Urine Blood Trace H Urine Nitrite Negative Ur Leukocyte Esterase Large (3+) H Urine RBC 0-2 Urine WBC 21-50 H Ur Squamous Epith Cells 11-20 Other Crystals Present Urine Bacteria 4+ Hyaline Casts 3-5 10/08/24 05:42 MCV 90.4 MCH 30.2 MCHC 33.4 RDW 15.5 Plt Count 186 MPV 10.5 Immature Gran % (Auto) Neut % (Auto) Lymph % (Auto) [place] % (Auto) Eos % (Auto) Baso % (Auto) Lymph # (Auto) [place] # (Auto) Eos # (Auto) Baso # (Auto) Abs Immat Gran (auto) Absolute Neuts (auto) Absolute Nucleated RBC 0.000 Nucleated RBC % (auto) 0.0 Anion Gap 16 Estim Creat Clear Calc 42.0 Estimated GFR 35 Random Glucose 126 H Lactic Acid Calcium 8.8 D Magnesium 1.9 Total Bilirubin Direct Bilirubin AST ALT Alkaline Phosphatase C-Reactive Protein Total Protein Albumin Urine Color Urine Appearance Urine pH Ur Specific [place] Urine Protein Urine Glucose (UA) Urine Ketones Urine Blood Urine Nitrite Ur Leukocyte Esterase Urine RBC Urine WBC Ur Squamous Epith Cells Other Crystals Urine Bacteria Hyaline Casts Assessment and Plan (1) Urinary tract infection: Status: Acute Plan 74F PMH ESBL ecoli with bacteremia 06/2024, ESBL uti 08/2024, rheumatoid arthritis on methotrexate and chronic prednisone, hypertension, chronic lymphedema, peripheral vascular disease, COPD, BLADIMIR occlusion, presented with confusion Acute metabolic encephalopathy due to recurrent UTI with concern for ESBL E coli Meropenem, follow up cultures, Infectious Disease eval Rheumatoid arthritis holding methotrexate while treating infection Continue chronic prednisone Chronic pain with chronic opiate dependence Continue oxycodone COPD Stable Mood disorder Continue bupropion and duloxetine Hypertension Continue atenolol DVT prophylaxis with Lovenox Full Code reason for continued hospitalization:cultures Quality Stroke Does the patient have a stroke diagnosis?: No VTE Prior VTE?: No VTE Risk Level:: Medical - moderate - high VTE Device Contraindication: Treatment Not Indicated VTE Drug Contraindication: N/A - Med Ordered
[2024-10-08] MEDS: oxyCODONE HCl Immed Release 5 MG TABLET 20 MG PO ×3 (09:49→21:12)
--- NOTE | 2024-10-08 14:52 | W.PM.IDCN ---
History of Present Illness Data of Consult Service Date: 10/08/24 Requesting physician: Gonzales Moreno Primary Care Provider: Namita Acosta NP HPI Reason for consult: confusion,encephalopathy She presents with confusion,sleepiness and slowness of thought for a day. She has bacteremia E coli ESBL 4/ and treatment for 10 days,Ertapenem. She had stay 09/02-09/11 ESBL urine only. She comes back again confusion and no focal urinary symptoms. Her blood culture is negative. Kidney possible cysts. Review of Systems Review of Systems: Yes all other systems are reviewed and are negative [facility] Past Medical History Medical History Bacteriuria Urinary tract infection due to extended-spectrum beta lactamase (ESBL) producing Escherichia coli History of ESBL E. coli infection Osteomyelitis COPD (chronic obstructive pulmonary disease) Rheumatoid lung Hypothyroidism Congestive heart failure Fibromyalgia HTN (hypertension) Depression Rheumatoid arthritis Family History Family History Father No problems noted. Other Heart disease Family history: reviewed and not pertinent Surgical History Surgical History Hx of prior ablation treatment Knee joint replacement status Social History Social History Household Members: None Household Members Other:: 0 Housing: Apartment Do you presently have visiting nurse or other home services: Yes Unable to assess alcohol history related to: Unable to respond Alcohol intake: never Comment: bedside commode Patient Tobacco Use Status: Former Tobacco user Tobacco use type: Cigarette e-Cigarette/Vaping Use: Never Used Second Hand Smoke Exposure: No Advance Directives Date on File: 09/29/23 service: No Meds Allergies Allergy/AdvReac Type Severity Reaction Status Date / Time lisinopril (LISINOPRIL) Allergy Severe ANAPHYLAXIS Verified 10/07/24 09:46 Sulfa (Sulfonamide Allergy Intermediate RASH Verified 10/07/24 09:46 Antibiotics) (SULFA (SULFONAMIDE ANTIBIOTICS)) tramadol (TRAMADOL) Allergy Intermediate RASH Verified 10/07/24 09:46 Kutgzji-BEY-OqB Reductase Allergy Rash Verified 10/07/24 09:46 Inhibitor (Fqaofqu-Wgh-Qow Reductase Inhibitor) hydrochlorothiazide (HCTZ) AdvReac Unknown ABNORMAL Verified 10/07/24 09:46 LABS? Active Medications: Current Medications Acetaminophen (Acetaminophen 325 Mg Tablet) 650 mg PO Q6H PRN PRN Reason: Pain, Mild 1-3,fever,headache Atenolol (Atenolol 50 Mg Tablet) 50 mg PO DAILY [facility] [place]; Protocol Last Admin: 10/08/24 08:50 Dose: 50 mg Bupropion HCl (Bupropion Hcl Xl 300 Mg Tab.Er.24h) 300 mg PO DAILY@0900 [facility] Last Admin: 10/08/24 08:50 Dose: 300 mg Bupropion HCl (Bupropion Hcl Xl 150 Mg Tab.Er.24h) 150 mg PO DAILY@0900 [facility] Last Admin: 10/08/24 08:50 Dose: 150 mg Calcium Carbonate (Calcium Carbonate 750 Mg Tab.Chew) 750 mg PO Q4H PRN PRN Reason: Heartburn Doxazosin Mesylate (Doxazosin Mesylate 2 Mg Tablet) 2 mg PO BEDTIME [facility]; Protocol Last Admin: 10/07/24 19:58 Dose: 2 mg Duloxetine HCl (Duloxetine Hcl 60 Mg Capsule.Dr) 60 mg PO DAILY [facility] Last Admin: 10/08/24 08:50 Dose: 60 mg Enoxaparin Sodium (Enoxaparin Sodium 40 Mg/0.4 Ml Syringe) 40 mg SUBCUT Q24H [facility] Last Admin: 10/08/24 08:48 Dose: 40 mg Folic Acid (Folic Acid 1 Mg Tablet) 2 mg PO DAILY [facility] [place] Last Admin: 10/08/24 08:50 Dose: 2 mg Furosemide (Furosemide 20 Mg Tablet) 60 mg PO DAILY [facility] [place]; Protocol Last Admin: 10/08/24 08:50 Dose: 60 mg Levothyroxine Sodium (Levothyroxine Sodium 50 Mcg Tablet) 50 mcg PO DAILY@0600 [facility] [place] Last Admin: 10/08/24 05:30 Dose: 50 mcg Magnesium Hydroxide (Milk Of Magnesia 30 Ml Oral.Susp) 30 ml PO DAILY PRN PRN Reason: Constipation Melatonin (Melatonin 3 Mg Tablet) 6 mg PO BEDTIME PRN PRN Reason: Insomnia Meropenem (Meropenem 1 Gm Vial) 1 gm IVPUSH Q12H [facility] Last Admin: 10/08/24 13:42 Dose: 1 gm Multivitamins/Vitamin C (Multivitamin Tablet) 1 tab PO DAILY [facility] Last Admin: 10/08/24 08:50 Dose: 1 tab Omeprazole (Omeprazole 40 Mg Capsule.) 40 mg PO DAILY@06 [facility] [place] Last Admin: 10/08/24 05:30 Dose: 40 mg Oxycodone HCl (Oxycodone Hcl Immed Release 5 Mg Tablet) 20 mg PO Q4H PRN PRN Reason: pain (scale score 7-10) Last Admin: 10/08/24 09:49 Dose: 20 mg Prednisone (Prednisone 1 Mg Tablet) 4 mg PO DAILY [facility] Last Admin: 10/08/24 08:50 Dose: 4 mg Pregabalin (Pregabalin 200 Mg Capsule) 200 mg PO BID [facility] [place] Last Admin: 10/08/24 08:50 Dose: 200 mg Sodium Chloride (0.9 % Sodium Chloride Flush 3 Ml Syringe) [facility] Last Admin: 10/08/24 08:50 Dose: 3 ml Home Medications ?Medication ?Instructions ?Recorded ?Confirmed ?Last Taken ?Type bupropion HCl 300 mg 24 hr tablet, 300 mg PO DAILY@0908/23/21 10/07/24 10/06/24 History extended release duloxetine 60 mg capsule,delayed 60 mg PO DAILY 08/23/21 10/07/24 10/06/24 History release levothyroxine 50 mcg tablet 50 mcg PO DAILY@0608/23/21 10/07/24 10/06/24 History methotrexate sodium 2.5 mg tablet 10 tab PO MO 08/23/21 10/07/24 09/30/24 History omeprazole 40 mg capsule,delayed 40 mg PO DAILY@0608/23/21 10/07/24 10/06/24 History release prednisone 1 mg tablet 4 mg PO DAILY 08/23/21 10/07/24 10/06/24 History pregabalin 200 mg capsule 200 mg PO BID 01/07/23 10/07/24 10/06/24 History folic acid 1 mg tablet 2 mg PO DAILY 10/13/23 10/07/24 10/06/24 History bupropion HCl 150 mg 24 hr tablet, 150 mg PO DAILY@0900 11/25/23 10/07/24 10/06/24 History extended release acetaminophen 325 mg tablet 650 mg PO Q4H PRN Moderate Pain 03/04/24 10/07/24 Unknown History (Tylenol) (Scale Score 5-6) ibuprofen 200 mg tablet 600 mg PO Q6H PRN Pain 05/03/24 10/07/24 Unknown History melatonin 10 mg tablet 10 mg PO BEDTIME PRN Sleep 05/03/24 10/07/24 Unknown History multivitamin 1 tab PO DAILY 05/03/24 10/07/24 10/06/24 History atenolol 25 mg tablet 50 mg PO DAILY 08/29/24 10/07/24 10/06/24 History fluticasone propionate 50 1 spray intranasal BID PRN Allergy 08/29/24 10/07/24 Unknown History mcg/actuation nasal Symptoms spray,suspension biotin 1 mg tablet 1 mg PO DAILY 10/07/24 10/07/24 10/06/24 History furosemide 40 mg tablet 60 mg PO DAILY 10/07/24 10/07/24 10/06/24 History Physical Exam Vital Signs: Vital Signs: Last Vital Signs Temp 97.7 F 10/08/24 08:00 Pulse 85 10/08/24 08:00 Resp 18 10/08/24 08:00 BP 145/82 H 10/08/24 08:00 Pulse Ox 97 10/08/24 08:00 O2 Del Method Nasal Cannula 10/08/24 08:00 O2 Flow Rate 2.0 10/08/24 08:00 BMI result Body Mass Index 34.6 Const: General: cooperative HEENT: Head: Yes normal to inspection Face and sinus: Yes normal facial exam Mouth: Normal oral and palatal mucosa present Teeth and gingiva: dentition normal Eyes: General: appearance normal, both eyes and all related structures Pupils: Equal, round and reactive pupils present Resp: Effort & Inspection: normal respiratory effort Cardio: Rate: regular rate Rhythm: regular rhythm GI: Palpation (GI): Soft to palpation and nontender : General: Yes no CVA tenderness Back/Spine/Pelvis: Back: no CVA tenderness Skin: General skin exam: no rashes or lesions noted Neuro: General: moves all extremities Cranial nerves: Yes Equal, round and reactive pupils present Extrem: General: Yes normal to inspection Psych: Appearance: grossly normal Results Labs 10/08/24 05:42 10/08/24 05:42 Labs: Short CBC 10/08/24 Range/Units 05:42 WBC 7.2 (4.8-10.8) X10*3/uL Hgb 12.0 (12.0-16.0) g/dl Hct 35.9 L (37.0-47.0) % Plt Count 186 (160-400) X10*3/uL BMP 10/08/24 05:42 Sodium 140 Potassium 3.3 Chloride 102 Carbon Dioxide 25 BUN 18 H Creatinine 1.47 H Calcium 8.8 D Microbiology Microbiology Results: Microbiology 10/07/24 10:24 Blood - Venous Blood Culture - Preliminary No growth after 24 hours. 10/07/24 10:23 Blood - Venous Blood Culture - Preliminary No growth after 24 hours. 10/07/24 Unknown Urine clean catch - Clean Catch Midstream Urine Culture - Preliminary Culture in progress. Assessment and Plan (1) History of ESBL E. coli infection: Status: Acute (2) Altered mental status: Qualifiers: Altered mental status type: unspecified Qualified Code(s): R41.82 - Altered mental status, unspecified Status: Acute Plan She has had ESBL E coli blood in June and nearly always in urine. She has renal cysts ?significance?urinary obstruction. Possibly encephalopathy due to metabolic reasons,chronic opioid use. Stop antibiotics and no treatment if not bacteremic. Urology see if any obstruction to urinary flow.
[2024-10-08 15:51] VITALS: BP 115/64; PULSE 65; RESP 18; TEMP 36.8; O2SAT 93
--- NOTE | 2024-10-08 16:01 | MHC.CM.PN ---
Addendum entered by Hayley Campbell RN 10/09/24 12:08: O2 @ noc via [employer] Original Note: IMM delivered. Patient lives in an apartment alone. Has daily [employer]'s: M-F 2 hrs/day and Sun 3 hrs. [employer] assist w/ cooking, cleaning, shopping, etc. Reports she is mostly independent w/ dressing and bathing, but waits until [employer]'s are present in case she needs help. Uses an electric w/c, independent w/ stand & pivot transfer from bed to w/c. Also owns a manual w/c, walker and has grab bars in bathroom. PCP Namita Acosta [employer] HCP on file and verified. Not currently active w/ any VNA, but has used [facility] in the past and would use their services again if recommended. Not interested in STR. DP: Goal is home w/ [facility]. BLS transport. CM will continue to follow.
--- NOTE | 2024-10-08 17:25 | PM.UROCN ---
History of Present Illness Consult details Consult date: 10/08/24 Narrative: CC: Recurrent ESBL urinary tract infection with prior sepsis 74-year-old female known to infectious disease No prior urologic assessment located within chart Prior ESBL E coli infection with bacteremia recurrent in June and August 2024 Presents through emergency room with reported acute mental status changes reports these are similar to prior UTI Laboratories creatinine 1.5, WBC 7.9. On prior admission for urosepsis had risen to 18. CT scan with no evidence of stones in kidneys, appears to have incomplete bladder emptying Home medications include doxazosin 2 mg Recommend Estrace cream pea-sized amount to urethra daily May benefit from methenamine and vitamin-C Bladder scan x3 after voiding to assess for residual Review of Systems Constitutional: Constitutional: Reports as per HPI and Reports no additional constitutional complaints Cardiovascular: Cardiovascular: Reports as per HPI and Reports no additional cardiovascular complaints Respiratory: Respiratory: Reports as per HPI and Reports no additional respiratory complaints Gastrointestinal: Gastrointestinal: Reports as per HPI and Reports no additional gastrointestinal complaints Genitourinary: Genitourinary: Reports as per HPI Musculoskeletal: Musculoskeletal: Reports no additional musculoskeletal complaints and Reports as per HPI Neurologic: Reports system reviewed and no additional complaints, except as documented and Reports as per HPI PMFSH Past Medical History Medical History Bacteriuria Urinary tract infection due to extended-spectrum beta lactamase (ESBL) producing Escherichia coli History of ESBL E. coli infection Osteomyelitis COPD (chronic obstructive pulmonary disease) Rheumatoid lung Hypothyroidism Congestive heart failure Fibromyalgia HTN (hypertension) Depression Rheumatoid arthritis Family History Family History Father No problems noted. Other Heart disease Family history: reviewed and not pertinent Surgical History Surgical History Hx of prior ablation treatment Knee joint replacement status Social History Social History Household Members: None Household Members Other:: 0 Housing: Apartment Do you presently have visiting nurse or other home services: Yes Unable to assess alcohol history related to: Unable to respond Alcohol intake: never Comment: bedside commode Patient Tobacco Use Status: Former Tobacco user Tobacco use type: Cigarette e-Cigarette/Vaping Use: Never Used Second Hand Smoke Exposure: No Advance Directives Date on File: 09/29/23 service: No Meds Allergies Allergy/AdvReac Type Severity Reaction Status Date / Time lisinopril (LISINOPRIL) Allergy Severe ANAPHYLAXIS Verified 10/07/24 09:46 Sulfa (Sulfonamide Allergy Intermediate RASH Verified 10/07/24 09:46 Antibiotics) (SULFA (SULFONAMIDE ANTIBIOTICS)) tramadol (TRAMADOL) Allergy Intermediate RASH Verified 10/07/24 09:46 Mhkfvto-UZZ-GhG Reductase Allergy Rash Verified 10/07/24 09:46 Inhibitor (Mmenkrc-Tzh-Ymr Reductase Inhibitor) hydrochlorothiazide (HCTZ) AdvReac Unknown ABNORMAL Verified 10/07/24 09:46 LABS? Active Medications: Current Medications Acetaminophen (Acetaminophen 325 Mg Tablet) 650 mg PO Q6H PRN PRN Reason: Pain, Mild 1-3,fever,headache Atenolol (Atenolol 50 Mg Tablet) 50 mg PO DAILY [facility]; Protocol Last Admin: 10/08/24 08:50 Dose: 50 mg Bupropion HCl (Bupropion Hcl Xl 300 Mg Tab.Er.24h) 300 mg PO DAILY@0900 [facility] Last Admin: 10/08/24 08:50 Dose: 300 mg Bupropion HCl (Bupropion Hcl Xl 150 Mg Tab.Er.24h) 150 mg PO DAILY@0900 [facility] Last Admin: 10/08/24 08:50 Dose: 150 mg Calcium Carbonate (Calcium Carbonate 750 Mg Tab.Chew) 750 mg PO Q4H PRN PRN Reason: Heartburn Doxazosin Mesylate (Doxazosin Mesylate 2 Mg Tablet) 2 mg PO BEDTIME [facility]; Protocol Last Admin: 10/07/24 19:58 Dose: 2 mg Duloxetine HCl (Duloxetine Hcl 60 Mg Capsule.Dr) 60 mg PO DAILY [facility] Last Admin: 10/08/24 08:50 Dose: 60 mg Enoxaparin Sodium (Enoxaparin Sodium 40 Mg/0.4 Ml Syringe) 40 mg SUBCUT Q24H [facility] Last Admin: 10/08/24 08:48 Dose: 40 mg Folic Acid (Folic Acid 1 Mg Tablet) 2 mg PO DAILY [facility] Last Admin: 10/08/24 08:50 Dose: 2 mg Furosemide (Furosemide 20 Mg Tablet) 60 mg PO DAILY [facility]; Protocol Last Admin: 10/08/24 08:50 Dose: 60 mg Levothyroxine Sodium (Levothyroxine Sodium 50 Mcg Tablet) 50 mcg PO DAILY@599 [facility] Last Admin: 10/08/24 05:30 Dose: 50 mcg Magnesium Hydroxide (Milk Of Magnesia 30 Ml Oral.Susp) 30 ml PO DAILY PRN PRN Reason: Constipation Melatonin (Melatonin 3 Mg Tablet) 6 mg PO BEDTIME PRN PRN Reason: Insomnia Meropenem (Meropenem 1 Gm Vial) 1 gm IVPUSH Q12H [facility] Last Admin: 10/08/24 13:42 Dose: 1 gm Multivitamins/Vitamin C (Multivitamin Tablet) 1 tab PO DAILY [facility] Last Admin: 10/08/24 08:50 Dose: 1 tab Omeprazole (Omeprazole 40 Mg Capsule.Dr) 40 mg PO DAILY@629 [facility] Last Admin: 10/08/24 05:30 Dose: 40 mg Oxycodone HCl (Oxycodone Hcl Immed Release 5 Mg Tablet) 20 mg PO Q4H PRN PRN Reason: pain (scale score 7-10) Last Admin: 10/08/24 16:30 Dose: 20 mg Prednisone (Prednisone 1 Mg Tablet) 4 mg PO DAILY [facility] Last Admin: 10/08/24 08:50 Dose: 4 mg Pregabalin (Pregabalin 200 Mg Capsule) 200 mg PO BID [facility] Last Admin: 10/08/24 08:50 Dose: 200 mg Sodium Chloride (0.9 % Sodium Chloride Flush 3 Ml Syringe) 3 ml IVFLUSH QSHIFT [facility] Last Admin: 10/08/24 15:38 Dose: 3 ml Home Medications ?Medication ?Instructions ?Recorded ?Confirmed ?Last Taken ?Type bupropion HCl 300 mg 24 hr tablet, 300 mg PO DAILY@0908/23/21 10/07/24 10/06/24 History extended release duloxetine 60 mg capsule,delayed 60 mg PO DAILY 08/23/21 10/07/24 10/06/24 History release levothyroxine 50 mcg tablet 50 mcg PO DAILY@59908/23/21 10/07/24 10/06/24 History methotrexate sodium 2.5 mg tablet 10 tab PO MO 08/23/21 10/07/24 09/30/24 History omeprazole 40 mg capsule,delayed 40 mg PO DAILY@62908/23/21 10/07/24 10/06/24 History release prednisone 1 mg tablet 4 mg PO DAILY 08/23/21 10/07/24 10/06/24 History pregabalin 200 mg capsule 200 mg PO BID 01/07/23 10/07/24 10/06/24 History folic acid 1 mg tablet 2 mg PO DAILY 10/13/23 10/07/24 10/06/24 History bupropion HCl 150 mg 24 hr tablet, 150 mg PO DAILY@0900 11/25/23 10/07/24 10/06/24 History extended release acetaminophen 325 mg tablet 650 mg PO Q4H PRN Moderate Pain 03/04/24 10/07/24 Unknown History (Tylenol) (Scale Score 5-6) ibuprofen 200 mg tablet 600 mg PO Q6H PRN Pain 05/03/24 10/07/24 Unknown History melatonin 10 mg tablet 10 mg PO BEDTIME PRN Sleep 05/03/24 10/07/24 Unknown History multivitamin 1 tab PO DAILY 05/03/24 10/07/24 10/06/24 History atenolol 25 mg tablet 50 mg PO DAILY 08/29/24 10/07/24 10/06/24 History fluticasone propionate 50 1 spray intranasal BID PRN Allergy 08/29/24 10/07/24 Unknown History mcg/actuation nasal Symptoms spray,suspension biotin 1 mg tablet 1 mg PO DAILY 10/07/24 10/07/24 10/06/24 History furosemide 40 mg tablet 60 mg PO DAILY 10/07/24 10/07/24 10/06/24 History Physical Exam Vital Signs: Vital Signs: Last Vital Signs Temp 98.2 F 10/08/24 15:51 Pulse 65 10/08/24 15:51 Resp 18 10/08/24 15:51 BP 115/64 10/08/24 15:51 Pulse Ox 93 10/08/24 15:51 O2 Del Method Room Air 10/08/24 15:51 O2 Flow Rate 2.0 10/08/24 08:00 BMI result Body Mass Index 34.6 Const: General: cooperative, healthy appearing, comfortable and no acute distress Orientation/consciousness: patient oriented x3 HEENT: Face and sinus: Yes normal facial exam Mouth: moist mucous membranes Neck: Neck: Yes normal visual inspection, Yes full ROM and Yes trachea midline Chest: Chest palpation & inspection: normal inspection of the chest Resp: Effort & Inspection: normal respiratory effort, able to speak in complete sentences and no respiratory distress GI: Inspection: Yes normal to inspection Back/Spine/Pelvis: Cervical Spine: normal cervical lordosis Thoracic/Lumbar Spine: thoracic and lumbar spine normal to inspection Skin: General skin exam: no rashes or lesions noted Neuro: General: patient oriented x3, tone normal and moves all extremities Extrem: General: Yes normal to inspection and Yes capillary refill normal Results Labs 10/08/24 05:42 10/08/24 05:42 Labs: Abnormal lab results 10/08/24 Range/Units 05:42 RBC 3.97 L (4.20-5.50) X10*6/uL Hct 35.9 L (37.0-47.0) % BUN 18 H (9-16) mg/dL Creatinine 1.47 H (0.5-1.4) mg/dL Random Glucose 126 H (60-115) mg/dL Short CBC 10/08/24 Range/Units 05:42 WBC 7.2 (4.8-10.8) X10*3/uL Hgb 12.0 (12.0-16.0) g/dl Hct 35.9 L (37.0-47.0) % Plt Count 186 (160-400) X10*3/uL BMP 10/08/24 05:42 Sodium 140 Potassium 3.3 Chloride 102 Carbon Dioxide 25 BUN 18 H Creatinine 1.47 H Calcium 8.8 D Urine 10/07/24 Range/Units 11:28 Urine Color Yellow Urine Appearance Cloudy Urine pH 5.5 (5.0-9.0) Ur Specific [place] 1.010 (1.005-1.025) Urine Protein Negative (Neg-Trace) mg/dL Urine Glucose (UA) Negative (Negative) mg/dL All other labs normal. Assessment and Plan (1) UTI due to extended-spectrum beta lactamase (ESBL) producing Escherichia coli: Status: Acute Plan Immunocompromised, postmenopausal Add Estrace cream, methenamine, vitamin-C Assess bladder for incomplete emptying Procedures Date of Service Date of Service: 10/08/24
[2024-10-08 19:33] VITALS: BP 124/72; PULSE 68; RESP 22; TEMP 36.7; O2SAT 97
[2024-10-09] MEDS: oxyCODONE HCl Immed Release 5 MG TABLET 20 MG PO ×3 (03:00→11:01)
[2024-10-09 04:00] VITALS: BP 143/64; PULSE 64; RESP 18; TEMP 36.7; O2SAT 95
[2024-10-09 06:34] LABS: Hematocrit 32.3 % (37.0-47.0); Hemoglobin 11.1 g/dl (12.0-16.0); Mean Corpuscular HGB Conc 34.4 g/dl (31.0-35.0); Mean Corpuscular Hemoglobin 31.1 pg (27.0-33.0); Mean Corpuscular Volume 90.5 fL (80.0-98.0); NRBC Abs Auto 0.000 X10*3/uL (0.0-0.012); NRBC Pct Auto 0.0 /100WBC (0.0-0.2); Platelet Count 159 X10*3/uL (160-400); Red Blood Count 3.57 X10*6/uL (4.20-5.50); White Blood Count 7.0 X10*3/uL (4.8-10.8)
[2024-10-09 06:48] LABS: Anion Gap 12 (12-20); Blood Urea Nitrogen 17 mg/dL (9-16); Calcium 8.6 mg/dL (8.4-10.2); Carbon Dioxide 30 mmol/L (22-29); Chloride 100 mmol/L (96-108); Creatinine Clr Calc Pharmacy 44.8; Estimated Glomerular Filt Rate 38; Potassium 3.3 mmol/L (3.3-5.1); Sodium 139 mmol/L (135-145)
[2024-10-09 07:52] VITALS: BP 133/61; PULSE 62; RESP 16; TEMP 36.5; O2SAT 95
[2024-10-09] MEDS: 0.9 % Sodium Chloride Flush 3 ML SYRINGE IVFLUSH (07:57)
[2024-10-09] MEDS: buPROPion HCl XL 150 MG TAB.ER.24H PO (07:59)
[2024-10-09] MEDS: buPROPion HCl XL 300 MG TAB.ER.24H PO (07:59)
--- NOTE | 2024-10-09 09:39 | P.DS_ITS ---
DS: Providers Provider Date of Service: 10/09/24 Date of admission: 10/07/24 12:16 Date of discharge: 10/09/24 Primary care physician: Namita Acosta NP Consults: 10/07/24 13:21 Consult to Infectious Diseases Routine Consulting Provider: [facility] Reason for consultation: recurrent ESBL 10/08/24 14:49 Consult to Urology Routine Consulting Provider: [facility] Urology Services Reason for consultation: hyperdense cysts, recurrent uti DS: Diagnosis Discharge Diagnosis (1) UTI due to extended-spectrum beta lactamase (ESBL) producing Escherichia coli: Status: Acute DS: Summary Hospital Course Hospital Course: from initial hpi: 74F PMH ESBL ecoli with bacteremia 06/2024, ESBL uti 08/2024, rheumatoid arthritis on methotrexate and chronic prednisone, hypertension, chronic lymphedema, peripheral vascular disease, COPD, BLADIMIR occlusion, presented with confusion. patient reports foggyness, confusion, not feeling herself for about 1 day. denies fever, chills, dysuria, states it feels like previous utis, in ED UA grossly positive. hospital course: Patient was admitted for acute metabolic encephalopathy initially felt to be due to recurrent UTI with concern for ESBL E coli. Was treated with meropenem. Patient reports symptoms resolved. Was seen by infectious disease who felt this was likely colonization and recommended not further treating if blood cultures remained negative which they have. Urology was consulted for renal cysts seen on CAT scan, ultrasound was done and should be followed up with Urology as outpatient. Urology also start patient on vitamin-C and methenamine and Estrace. For rheumatoid arthritis methotrexate was held and will be restarted, was continued on chronic prednisone. For chronic pain with chronic opiate dependence was continued on oxycodone. For COPD remained stable. For mood disorder was continued on bupropion and duloxetine. For hypertension was continued on atenolol. Time Attestation Discharge Coordination Time (in mins): 32 Quality: Safe Use of Opioids Does Pt have an Active Cancer Diagnosis on the Problem List?: No Quality: Stroke Does the patient have a stroke diagnosis?: No Physical Exam Vital Signs: Vital Signs: Last Vital Signs Temp 97.7 F 10/09/24 07:52 Pulse 62 10/09/24 07:52 Resp 16 10/09/24 07:52 BP 133/61 10/09/24 07:52 Pulse Ox 95 07/16/25 07:52 O2 Del Method Room Air 10/09/24 07:52 O2 Flow Rate 2 10/09/24 04:00 BMI result Body Mass Index 34.6 General: AO X 3, no acute distress Resp: CTA bilateral, no accessory muscles used CVS: S1,S2,RRR GI: soft, non tender, non distended Neuro: motor grossly intact, alert Psych: appropriate affect, appropriate insight DS: Data Data Completed and Pending Completed studies during hospitalization [Text1]: Procedures Insertion of Infusion Device into Right Brachial Vein, Percutaneous Approach (08/29/24) Insertion of Infusion Device into Right Cephalic Vein, Percutaneous Approach ( 10/13/23) Labs on day of discharge: Laboratory Results - last 24 hr 10/09/24 06:02 WBC 7.0 RBC 3.57 L Hgb 11.1 L Hct 32.3 L MCV 90.5 MCH 31.1 MCHC 34.4 RDW 15.3 Plt Count 159 L MPV 10.1 Absolute Nucleated RBC 0.000 Nucleated RBC % (auto) 0.0 Sodium 139 Potassium 3.3 Chloride 100 Carbon Dioxide 30 H Anion Gap 12 BUN 17 H Creatinine 1.38 Estim Creat Clear Calc 44.8 Estimated GFR 38 Random Glucose 86 Calcium 8.6 Preliminary micro results at discharge 10/07/24 10:24 Blood Culture - Preliminary Blood - Venous No growth after 24 hours. 10/07/24 10:23 Blood Culture - Preliminary Blood - Venous No growth after 24 hours. 10/07/24 Unknown Urine Culture - Preliminary Urine clean catch - Clean Catch Midstream Culture in progress. Discharge Plan Discharge Anticipated Discharge Date/Time: 10/09/24 09:37 Patient Disposition: Home Health Service Discharge Diagnosis: encephalopathy Referrals: Sloan Miranda MD [Physician, Urology] - 1 Week Namita Acosta NP [Primary Care Provider, Internal Medicine] - 1 Week Discharge Medications: New methenamine hippurate 1 gram tablet 1 g PO DAILY 90 Days Qty: 90 0RF ascorbic acid (vitamin C) 1,000 mg capsule 1,000 mg PO DAILY 90 Days Qty: 90 1RF estradiol [Estrace] 0.01 % (0.1 mg/gram) cream 0.5 g vaginal DAILY 90 Days Qty: 42.5 0RF Rx Instructions: Apply pea sized amount of cream to urethra daily - until follow-up with urology Continued omeprazole 40 mg capsule,delayed release(DR/EC) 40 mg PO DAILY@0630 methotrexate sodium 2.5 mg tablet 10 tab PO MO prednisone 1 mg tablet 4 mg PO DAILY levothyroxine 50 mcg tablet 50 mcg PO DAILY@0600 bupropion HCl 300 mg tablet extended release 24 hr 300 mg PO DAILY@0900 duloxetine 60 mg capsule,delayed release(DR/EC) 60 mg PO DAILY ondansetron 4 mg tablet,disintegrating 4 mg PO Q8H PRN (Reason: nausea and vomiting) Qty: 10 0RF folic acid 1 mg tablet 2 mg PO DAILY doxazosin 2 mg Tablet 2 mg PO BEDTIME Qty: 30 0RF Protocol: Hold for SBP< HOLD for SBP < : 90 bupropion HCl 150 mg tablet extended release 24 hr 150 mg PO DAILY@0900 multivitamin Tablet 1 tab PO DAILY ibuprofen 200 mg Tablet 600 mg PO Q6H PRN (Reason: Pain) melatonin 10 mg Tablet 10 mg PO BEDTIME PRN (Reason: Sleep) pregabalin 200 mg capsule 200 mg PO BID oxycodone 20 mg tablet 20 mg PO Q4H PRN (Reason: pain (scale score 7-10)) Qty: 20 0RF acetaminophen [Tylenol] 325 mg Tablet 650 mg PO Q4H PRN (Reason: Moderate Pain (Scale Score 5-6)) fluticasone propionate 50 mcg/actuation [place],Suspension 1 spray INTRANASAL BID PRN (Reason: Allergy Symptoms) Rx Instructions: administer into each nostril atenolol 25 mg tablet 50 mg PO DAILY Protocol: Hold for SBP/HR < HOLD for SBP < : 90 HOLD for HR < : 60 furosemide 40 mg tablet 60 mg PO DAILY biotin 1 mg Tablet 1 mg PO DAILY Discharge Orders: Discharge Order (Routine); Ordered 10/09/24 Ordered By: Gonzales Moreno Diet: Advance to usual diet Activity on Discharge: As tolerated Stand Alone Forms: Patient Portal Discharge page Print Language: Cymro Care Plan Goals: recovery Health Concerns: recurrent esbl uti, renal cysts Plan of Treatment: follow up with urology Assessment: see above
[2024-10-09 11:00] VITALS: O2SAT 90
[2024-10-09 11:05] VITALS: O2SAT 96
--- NOTE | 2024-10-09 11:20 | P.F2F_ITS ---
Service Date Service Date: 10/09/24 Encounter Date of encounter: 10/09/24 Reasons for Services Signs and symptoms assessed: weakness, recent hospitalization Reason for penitentiary: medication management, medication treatment and teach disease management Homebound: Leaving the home is medically contraindicated at this time without the asist of a device and/or another person due th the listed conditions above and below. Reason homebound: unsteady gait / fall risk Certification: Based on the above findings, I certify that this patient is confined to the home and needs intermittent penitentiary care, physical therapy and/or speech therapy, or continues to need occupational therapy. The patient is under my care, and I have initiated the establishment of the plan of care. The patient will be followed by a physician who will periodically review the plan of care. Time Spent With Patient Time: Total time managing care of this patient today ____ minutes.
[2024-10-09 12:02] VITALS: BP 101/57; PULSE 66; RESP 18; TEMP 36.3; O2SAT 96
--- NOTE | 2024-10-09 12:08 | MHC.CM.PN ---
Patient medically cleared for dc home w/ [facility] services via BLS per request. BLS scheduled for 12:30. Patient and RN aware.
== END 2024-10-09 12:40 | disposition home health service (06) | DRG 71 ==
LOC: HO.ED 11:50 → HO.EDOVER 12:53 → HO.S3 14:33
PROVIDERS: Admitting Provider Internal Medicine; Emergency Provider Emergency Medicine; PCP Nurse Practitioner Adult Health; Visit Provider Internal Medicine
DX: G93.41 Metabolic encephalopathy (principal); D84.9 Immunodeficiency, unspecified; F11.20 Opioid dependence, uncomplicated; M05.10 Rheumatoid lung disease with rheumatoid arthritis of unspecified site; J44.9 Chronic obstructive pulmonary disease, unspecified; F39 Unspecified mood [affective] disorder; N28.1 Cyst of kidney, acquired; I10 Essential (primary) hypertension; G89.29 Other chronic pain; Z87.440 Personal history of urinary (tract) infections; Z87.891 Personal history of nicotine dependence; Z79.631 Long term (current) use of antimetabolite agent; Z79.52 Long term (current) use of systemic steroids; Z79.899 Other long term (current) drug therapy
CPT/HCPCS: 36415; 76775; 80048; 80076; 81001; 83605; 83735; 85025; 85027; 86140; 87040; 87086; 99221; 99285; J1335; J1650; J2185

== ENCOUNTER 2024-10-07 12:16 | Outpatient (BNV) | payer MEDICARE, MEDICAID, SELFPAY | END 2024-10-09 10:14 | PROVIDERS: Admitting Provider Internal Medicine; Emergency Provider Emergency Medicine; PCP Nurse Practitioner Adult Health; Visit Provider Radiology Diagnostic Radiology | DX: N28.1 Cyst of kidney, acquired (principal) | CPT/HCPCS: 76775 ==

== ENCOUNTER → 2024-10-07 12:16 | Outpatient (BNV) | payer MEDICARE, MEDICAID, SELFPAY | PROVIDERS: Admitting Provider Internal Medicine; Emergency Provider Emergency Medicine; PCP Nurse Practitioner Adult Health; Visit Provider Urology | DX: N39.0 Urinary tract infection, site not specified (principal); B96.29 Other Escherichia coli [E. coli] as the cause of diseases classified elsewhere; Z16.12 Extended spectrum beta lactamase (ESBL) resistance | CPT/HCPCS: 99223 ==

== ENCOUNTER → 2024-10-07 12:16 | Outpatient (BNV) | payer MEDICARE, MEDICAID, SELFPAY | PROVIDERS: Admitting Provider Internal Medicine; Emergency Provider Emergency Medicine; PCP Nurse Practitioner Adult Health; Visit Provider Internal Medicine | DX: Z86.19 Personal history of other infectious and parasitic diseases (principal); R41.82 Altered mental status, unspecified | CPT/HCPCS: 99232 ==

== ENCOUNTER → 2024-10-07 12:16 | Outpatient (BNV) | payer MEDICARE, MEDICAID, SELFPAY | PROVIDERS: Admitting Provider Internal Medicine; Emergency Provider Emergency Medicine; Visit Provider Internal Medicine | DX: N39.0 Urinary tract infection, site not specified (principal); B96.29 Other Escherichia coli [E. coli] as the cause of diseases classified elsewhere; Z16.12 Extended spectrum beta lactamase (ESBL) resistance | CPT/HCPCS: 99223 ==

== ENCOUNTER 2024-10-29 07:33 | Outpatient (REF) | payer MEDICARE, MEDICAID, SELFPAY ==
--- OUTSIDE RECORDS SUMMARY | 2024-10-29 07:36 | XMS_ITS | Patient Health Record ---
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] atherosclerosis of arteries of lower limbs (disorder) (07891017859745831 ) Atherosclerosis of [place] artery of both lower extremities, with unspecified presence of clinical manifestation (I70.203) Active confirmed Problem Rheumatoid arthritis (51664400) Rheumatoid arthritis involving both feet, unspecified whether rheumatoid factor present (M06.9) Active confirmed Plan Of Treatment Pending Test Test Name Order Date [id number] SKIN/TISSUE 12/17/2021 [id number] SKIN/TISSUE 01/21/2022 [id number] SKIN/TISSUE 05/25/2022 87555 I&D ABSCESS- SIMPLE,SINGLE 023 [id number] I&D ABSCESS- SIMPLE,SINGLE 022 Insurance Providers Payer Name Payer Address Payer Phone Subscriber Number Group Number Insured Name Patient Relationship to Insured Coverage Start Date Coverage End Date [employer] Medicare [id number] [address] [address] [place] [phone] [id number] Alexandrea Renee Self - patient is the [...] ribs- CT -sameday went back 09/12/21 09/10/21 [facility]-expiration rheumatoid lung-overnight 07/2021
--- OUTSIDE RECORDS SUMMARY | 2024-10-29 07:36 | XMS_ITS | Patient Health Record ---
Author Organization [facility] Address [address] [facility] [address] [place] [address] Care Team Providers Care Premium Cancellation Clerk Name Role Phone Carlos Alberto Murray Primary Care Provider Eduardo Carr MD MSc, Juju Unavailable [phone] Johnny Blanco Unavailable Unavailable Allergies Allergen (clinical [...] Orally tid prn. To be filled on 07/08/15; Duration: 14 days Active Lidoderm 5 % 1 patch to intact skin remove after 12 hours Externally Once a day; Duration: 30 days Active Lyrica 100 MG 1 capsule Orally bid; Duration: 30 days Active oxyCODONE-Acetaminophen 7.5-325 MG 1 tablet as needed Orally bid next filled date 08/19/15; Duration: 28 days Active Lasix 20 MG 1 [...] Status W/U Status Risk Notes Problem Sciatica (60384982) Sciatica (724.3) Active confirmed Problem Lumbosacral spondylosis without myelopathy (24473489) Lumbosacral spondylosis without myelopathy (721.3) Active confirmed Problem Muscle pain (19491768) Unspecified myalgia and myositis (729.1) Active confirmed Problem Postherpetic polyneuropathy (52619668) 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) Active confirmed Problem Lumbosacral spondylosis without myelopathy (disorder) (33433972) Spondylosis without myelopathy or radiculopathy, lumbosacral region (M47.817) Active confirmed Problem Lumbosacral spondylosis without myelopathy (56432753) Other spondylosis, lumbar region (M47.896) Active confirmed Problem High risk drug monitoring status (636162195) FPC current use of opiate analgesic (Z79.891) Active confirmed Problem Lumbar spondylosis (063530660) Lumbar spondylosis (M47.816) Active confirmed Problem Left shoulder pain (5133151816) Left shoulder pain (M25.512) Active confirmed Problem Spondylosis (8630990) Spondylosis (M47.9) Active confirmed Problem Postherpetic neuralgia (9609252) Postherpetic neuralgia (B02.29) Active confirmed Problem Shoulder pain (21691167) Shoulder pain (M25.519) Active confirmed Plan Of [...] MEDICARE NGS [address] [place] [phone] [id number] Alexandrea Renee Self - patient is the insured Medical (General) History Medical History History ICD Code Depression Hypercholesterolemia Arthritis Fibromyalgia OCD peripheral neuropathy Surgical History Surgery Date(Month/Year) L knee replacement 2003 L knee revision 2010 Uterine Ablation Tubal Ligation R knee Meniscus repair 2011
--- OUTSIDE RECORDS SUMMARY | 2024-10-29 07:36 | XMS_ITS | Encounter Summary ---
Author Organization [facility] Address [address] [place] [address] Care Team Providers Care Softball Player Name Role Phone Travis Holbrook MD Primary Care Provider [phone] Encounter Details Date Type Department Care Team (Late st Contact Info) Description 07/26/2024 Lab Requisition [facility] - Main Lab [address] [facility] [place] [address] Travis Holbrook MD [address] [place] [address] [address] [place], [phone] Muscle weakness (generalized); Emphysema, unspecified (CMS/HCC V24, [...] V28) documented in this encounter Care Teams Softball Player Relationship Specialty Start Date End Date Travis Holbrook MD [address] [facility] [address] [place], [phone] PCP - General Family Medicine 02/28/24 documented as of this encounter
== END 2024-10-29 07:34 | disposition home or self-care (01) ==
LOC: HO.HOSX 07:33
PROVIDERS: Visit Provider Orthopaedic Surgery
DX: Z13.89 Encounter for screening for other disorder (principal)

== ENCOUNTER 2024-11-19 03:47 | Inpatient (IN) | payer MEDICARE, MEDICAID, SELFPAY ==
[2024-11-19] VITALS (17 sets, daily range): BP systolic 104–207; BP diastolic 53–100; PULSE 68–126; RESP 16–20; TEMP 36.8–39.4; O2SAT 93–100; BMI 34.7
--- NOTE | ~2024-11-19 | XR_ITS ---
EXAMINATION: XR CHEST CLINICAL INFORMATION: right midline insertion COMPARISON: Chest x-ray 05/21/2024 TECHNIQUE: Frontal view of the chest was obtained. FINDINGS: The right midline seen in the mid arm. The lungs are expanded and clear. The heart size and pulmonary vascularity is normal. No gross bony abnormality. XR/XR chest 1V IMPRESSION: New right midline insertion with its tip in the mid arm. The lungs are clear. The right midline can be flushed but no blood can be withdrawn. If this remains a problem a wire would be advanced to the midline to advance it tomorrow if possible. If not a right PICC line will be performed. Electronically signed by: Len Martins MD 11/21/2024 05:33 PM EDT
--- NOTE | ~2024-11-19 | CT_ITS ---
EXAMINATION: CT ABDOMEN PELVIS WITHOUT IV CONTRAST HISTORY: right flank pain COMPARISON: Comparison is made with the prior examination dated 08/29/2024. TECHNIQUE: CT scan of the abdomen and pelvis was performed without contrast using standard departmental protocol. Coronal and sagittal reformatted images were generated and reviewed. Oral contrast material was not administered per department protocol. This CT exam was performed with one or more of the following dose reduction techniques: automated exposure control, adjustment of the mA and/or kV according to patient size, use of iterative reconstruction technique. DLP: 592 mGy-cm FINDINGS: LOWER CHEST: The visualized lung bases are clear. There is no pleural effusion. CARDIOVASCULATURE: The heart is normal in size. There is no pericardial effusion. LIVER: The liver is normal in size and contour. The liver has an unremarkable unenhanced appearance. GALLBLADDER / BILE DUCTS: There is cholelithiasis. There is no intra or extrahepatic biliary ductal dilatation. SPLEEN: The spleen is normal in size and has an unremarkable unenhanced appearance. PANCREAS: The pancreas has an unremarkable unenhanced appearance. ADRENAL GLANDS: The right kidney is unremarkable. There is a 1.8 cm left adrenal nodule consistent with an adenoma. KIDNEYS/RETROPERITONEUM: No renal or ureteral calculi are identified. There is no hydronephrosis or hydroureter. Multiple right renal cysts are again noted, the largest of which is at the upper pole measuring 2.5 cm. Multiple hyperdense cysts are noted measuring up to 1.5 cm. The left kidney is markedly atrophic and demonstrates a 2.7 cm cyst in the interpolar region. LYMPH NODES: No retroperitoneal lymphadenopathy is identified in the abdomen or pelvis. VASCULATURE: There is atherosclerotic calcification of the abdominal aorta. There is aneurysmal dilatation of the infrarenal abdominal aorta measuring up to 4.0 cm. MESENTERY/PERITONEUM: No free fluid. No masses. There is no free intraperitoneal gas. STOMACH: There is a small hiatal hernia. The remainder of the stomach is collapsed. SMALL BOWEL: The small bowel is normal in caliber. COLON: The colon is unremarkable. APPENDIX: Normal. URINARY BLADDER/PELVIC ORGANS: There is a bubble of gas in the urinary bladder. The uterus has an unremarkable unenhanced appearance. BONES / SOFT TISSUES: There is a chronic moderate compression deformity of T12. There is grade I spondylolisthesis of L4 on L5 CT/CT abdomen pelvis wo IV con IMPRESSION: 1. No evidence of nephrolithiasis or ureteral obstruction. 2. Markedly atrophic left kidney. Bilateral renal cysts as described. 3. Cholelithiasis. 4. Possible gas in the urinary bladder. This may be due to recent instrumentation. Clinical correlation is recommended. Electronically signed by: Phoenix Santos MD 11/19/2024 08:20 AM EDT
[2024-11-19 04:13] LABS: Hematocrit 44.5 % (37.0-47.0); Hemoglobin 14.9 g/dl (12.0-16.0); Imm Gran Abs Auto 0.17 X10*3/uL (0.00-0.03); Imm Gran Pct Auto 1.7 % (0.0-0.4); Lymphocytes Absolute Auto 2.3 X10*3/uL (1.2-4.9); MANUAL DIFF FLAG NO; Mean Corpuscular HGB Conc 33.5 g/dl (31.0-35.0); Mean Corpuscular Hemoglobin 30.5 pg (27.0-33.0); Mean Corpuscular Volume 91.0 fL (80.0-98.0); NRBC Abs Auto 0.000 X10*3/uL (0.0-0.012); NRBC Pct Auto 0.0 /100WBC (0.0-0.2); Platelet Count 180 X10*3/uL (160-400); Red Blood Count 4.89 X10*6/uL (4.20-5.50); White Blood Count 10.2 X10*3/uL (4.8-10.8)
[2024-11-19 04:28] LABS: Anion Gap 15 (12-20); Blood Urea Nitrogen 17 mg/dL (9-16); Calcium 9.0 mg/dL (8.4-10.2); Carbon Dioxide 23 mmol/L (22-29); Chloride 110 mmol/L (96-108); Creatinine Clr Calc Pharmacy 57.9; Estimated Glomerular Filt Rate 50; Lipase 22 U/L (8-78); Magnesium 2.1 mg/dL (1.6-2.6); Potassium 4.5 mmol/L (3.3-5.1); Sodium 143 mmol/L (135-145)
--- NOTE | 2024-11-19 04:37 | ED.ABDPAIN ---
HPI - Abdominal Pain General Chief Complaint: Abdominal Pain Stated Complaint: VOMITING,UTI ? Time Seen by Provider: 11/19/24 04:35 Source: patient and EMS Mode of arrival: EMS Limitations: no limitations History of Present Illness ED Provider: Dr. Santa King HPI narrative: 74-year-old female with a history of hypertension, recurrent ESBL UTI presenting with right flank pain that has been ongoing for the last several days. Admits that the last time she had a severe UTI, this is how her symptoms began. Admits to nausea and vomiting associated with the pain. No reported hematuria or dysuria though. No fever, cough or cold-type symptoms, chest pain, lower extremity edema or pain. Has had several episodes of diarrhea. No questionable food intake or known sick contacts. No recent travel. She does take medication for recurrent UTI (methanamine) prescribed by her urologist, Dr. Miranda. Takes oxycodone 20 mg q.4 hours PRN for pain, admits her last dose of that was around 7:00 p.m. last night and she did not take another dose because she was actively vomiting. Related Data Home Medications ?Medication ?Instructions ?Recorded ?Confirmed bupropion HCl 300 mg 24 hr tablet, 300 mg PO DAILY@0908/23/21 10/07/24 extended release duloxetine 60 mg capsule,delayed 60 mg PO DAILY 08/23/21 10/07/24 release levothyroxine 50 mcg tablet 50 mcg PO DAILY@0608/23/21 10/07/24 methotrexate sodium 2.5 mg tablet 10 tab PO MO 08/23/21 10/07/24 omeprazole 40 mg capsule,delayed 40 mg PO DAILY@62908/23/21 10/07/24 release prednisone 1 mg tablet 4 mg PO DAILY 08/23/21 10/07/24 pregabalin 200 mg capsule 200 mg PO BID 01/07/23 10/07/24 folic acid 1 mg tablet 2 mg PO DAILY 10/13/23 10/07/24 bupropion HCl 150 mg 24 hr tablet, 150 mg PO DAILY@0911/25/23 10/07/24 extended release acetaminophen 325 mg tablet 650 mg PO Q4H PRN Moderate Pain 03/04/24 10/07/24 (Tylenol) (Scale Score 5-6) ibuprofen 200 mg tablet 600 mg PO Q6H PRN Pain 05/03/24 10/07/24 melatonin 10 mg tablet 10 mg PO BEDTIME PRN Sleep 05/03/24 10/07/24 multivitamin 1 tab PO DAILY 05/03/24 10/07/24 atenolol 25 mg tablet 50 mg PO DAILY 08/29/24 10/07/24 fluticasone propionate 50 1 spray intranasal BID PRN Allergy 08/29/24 10/07/24 mcg/actuation nasal Symptoms spray,suspension biotin 1 mg tablet 1 mg PO DAILY 10/07/24 10/07/24 furosemide 40 mg tablet 60 mg PO DAILY 10/07/24 10/07/24 Previous Rx's ?Medication ?Instructions ?Recorded ondansetron 4 mg disintegrating 4 mg PO Q8H PRN nausea and 08/02/23 tablet vomiting #10 tabs doxazosin 2 mg tablet 2 mg PO BEDTIME #30 tabs 10/17/23 oxycodone 20 mg tablet 20 mg PO Q4H PRN pain (scale score 02/27/24 7-10) #20 tabs ascorbic acid (vitamin C) 1,000 mg 1,000 mg PO DAILY 90 days #90 caps 10/08/24 capsule estradiol 0.01% (0.1 mg/gram) 0.5 g vaginal DAILY 90 days #42.5 10/08/24 vaginal cream (Estrace) grams methenamine hippurate 1 gram tablet 1 g PO DAILY 90 days #90 tabs 10/08/24 Allergies Allergy/AdvReac Type Severity Reaction Status Date / Time lisinopril (LISINOPRIL) Allergy Severe ANAPHYLAXIS Verified 11/19/24 03:58 Sulfa (Sulfonamide Allergy Intermediate RASH Verified 11/19/24 03:58 Antibiotics) (SULFA (SULFONAMIDE ANTIBIOTICS)) tramadol (TRAMADOL) Allergy Intermediate RASH Verified 11/19/24 03:58 Ejkduqb-RVP-SmR Reductase Allergy Rash Verified 11/19/24 03:58 Inhibitor (Fpeuged-Sen-Rjy Reductase Inhibitor) hydrochlorothiazide (HCTZ) AdvReac Unknown ABNORMAL Verified 11/19/24 03:58 LABS? Review of Systems Review of Systems As per HPI, full review of systems performed and negative but for the above mentioned pertinent positives and negatives. PMFSH Past Medical History Medical History Bacteriuria Urinary tract infection due to extended-spectrum beta lactamase (ESBL) producing Escherichia coli History of ESBL E. coli infection Osteomyelitis COPD (chronic obstructive pulmonary disease) Rheumatoid lung Hypothyroidism Congestive heart failure Fibromyalgia HTN (hypertension) Depression Rheumatoid arthritis Surgical History Hx of prior ablation treatment Knee joint replacement status Family History Family History Father No problems noted. Other Heart disease Social History Social History Household Members: None Household Members Other:: 0 Housing: Apartment Do you presently have visiting nurse or other home services: Yes Unable to assess alcohol history related to: Unable to respond Alcohol intake: never Comment: bedside commode Patient Tobacco Use Status: Former Tobacco user Tobacco use type: Cigarette Smoked in Last 30 Days: No e-Cigarette/Vaping Use: Never Used Second Hand Smoke Exposure: No Use of substances other than those prescribed or required for medical reasons: No Advance Directives: Yes Advance Directives on File: Yes Advance Directives Date on File: 10/19/23 service: No Physical Exam ED Exam Exam: GENERAL: Ill-Appearing, appears uncomfortable. SKIN: Normal skin color for ethnicity, warm, dry, no rashes noted. HEENT: Normocephalic, atraumatic, no stridor, dry mucous membranes, dentition intact, EOMI, PERRLA. NECK: Soft, supple, full ROM, midline structures nontender, no step-offs, no deformities, no lymphadenopathy. CHEST: Heart regular rhythm, no murmurs, symmetric chest rise and fall. PULMONARY: Clear to auscultation bilaterally, diminished at the bases, no labored breathing, no wheezes/rhales/rhonchi. ABDOMINAL: Soft, nondistended, right flank tenderness to percussion, no abdominal tenderness to palpation, quiet bowel sounds in all quadrants. : Deferred. MUSCULOSKELETAL: Normal tone, full range of motion, no deformities, no peripheral edema. NEURO: Alert and oriented x3, CN II through XII intact, equal strength and sensation bilateral upper and lower extremities, no focal neurologic deficits. PSYCHIATRIC: Flat affect, fluid speech, good eye contact and appropriate demeanor. Vital Signs: Vital Signs - 24 hr 11/19/24 03:57 11/19/24 04:00 11/19/24 05:35 Temperature 98.3 F 98.3 F 98.3 F Pulse Rate 68 68 77 Respiratory Rate 16 16 16 Blood Pressure 207/80 H 207/80 H 204/88 H Pulse Oximetry 98 98 97 Oxygen Delivery Method Room Air Room Air 11/19/24 06:37 Temperature 98.5 F Pulse Rate 68 Respiratory Rate 20 Blood Pressure 199/84 H Pulse Oximetry 100 Oxygen Delivery Method Room Air BMI result Body Mass Index 34.7 Medical Decision Making Medical Decision Making [facility] Narrative: Patient presented today with a chief complaint of flank pain. Differential diagnosis is certainly broad and includes but is not limited to kidney stone, infection such as pyelonephritis, vascular pathology, among many others. Patient does have evidence of urinary tract infection. We will start her on meropenem empirically given her history. I have ordered a CAT scan of her abdomen and pelvis to evaluate for infected stone. Plan for admission for further care and evaluation once her CT scan comes back. Differential Diagnosis Differential Diagnoses: The differential diagnosis associated with the presentation includes (as above) Admission/Observation Consideration of admission/observation: Escalation of care including admission/observation considered Consult Healthcare Provider Management of the patient was discussed with: Hospitalist Lab Data [facility] Lab Attestation statement: I reviewed the patient's lab results. 11/19/24 04:09 11/19/24 04:08 Labs: Lab Results 11/19/24 11/19/24 11/19/24 Range/Units 04:08 04:09 05:07 WBC 10.2 (4.8-10.8) X10*3/uL RBC 4.89 D (4.20-5.50) X10*6/uL Hgb 14.9 D (12.0-16.0) g/dl Hct 44.5 D (37.0-47.0) % MCV 91.0 (80.0-98.0) fL MCH 30.5 (27.0-33.0) pg MCHC 33.5 (31.0-35.0) g/dl RDW 15.9 (11.0-16.0) % Plt Count 180 (160-400) X10*3/uL MPV 9.5 (9.4-12.3) fL Immature Gran % (Auto) 1.7 H (0.0-0.4) % Neut % (Auto) 63.4 (45-73) % Lymph % (Auto) 22.4 (20-40) % [place] % (Auto) 10.7 (2-11) % Eos % (Auto) 1.4 (0-4) % Baso % (Auto) 0.4 (0-2) % Lymph # (Auto) 2.3 (1.2-4.9) X10*3/uL [place] # (Auto) 1.1 (0.1-1.2) X10*3/uL Eos # (Auto) 0.1 (0.0-0.4) X10*3/uL Baso # (Auto) 0.0 (0.0-0.2) X10*3/uL Abs Immat Gran (auto) 0.17 H (0.00-0.03) X10*3/uL Absolute Neuts (auto) 6.5 (2.0-8.3) x10*3/uL Absolute Nucleated RBC 0.000 (0.0-0.012) X10*3/uL Nucleated RBC % (auto) 0.0 (0.0-0.2) /100WBC Sodium 143 (135-145) mmol/L Potassium 4.5 D (3.3-5.1) mmol/L Chloride 110 H (96-108) mmol/L Carbon Dioxide 23 (22-29) mmol/L Anion Gap 15 (12-20) BUN 17 H (9-16) mg/dL Creatinine 1.07 (0.5-1.4) mg/dL Estim Creat Clear Calc 57.9 Estimated GFR 50 Random Glucose 126 H (60-115) mg/dL Lactic Acid (0.5-2.0) mmol/L Calcium 9.0 (8.4-10.2) mg/dL Magnesium 2.1 (1.6-2.6) mg/dL Lipase 22 (8-78) U/L Urine Color Yellow Urine Appearance Clear Urine pH 7.5 (5.0-9.0) Ur Specific [place] 1.015 (1.005-1.025) Urine Protein Negative (Neg-Trace) mg/dL Urine Glucose (UA) Negative (Negative) mg/dL Urine Ketones Negative (Negative) mg/dL Urine Blood Negative (Negative) Urine Nitrite Positive H (Negative) Ur Leukocyte Esterase Moderate (2+) H (Negative) Urine RBC 0-2 (0-2) /HPF Urine WBC 21-50 H (0-5) /HPF Ur Squamous Epith Cells 0-2 (0-2) /HPF Urine Bacteria 4+ (None Seen) Hyaline Casts 0-2 (0-2) /LPF 11/19/24 Range/Units 05:28 WBC (4.8-10.8) X10*3/uL RBC (4.20-5.50) X10*6/uL Hgb (12.0-16.0) g/dl Hct (37.0-47.0) % MCV (80.0-98.0) fL MCH (27.0-33.0) pg MCHC (31.0-35.0) g/dl RDW (11.0-16.0) % Plt Count (160-400) X10*3/uL MPV (9.4-12.3) fL Immature Gran % (Auto) (0.0-0.4) % Neut % (Auto) (45-73) % Lymph % (Auto) (20-40) % [place] % (Auto) (2-11) % Eos % (Auto) (0-4) % Baso % (Auto) (0-2) % Lymph # (Auto) (1.2-4.9) X10*3/uL [place] # (Auto) (0.1-1.2) X10*3/uL Eos # (Auto) (0.0-0.4) X10*3/uL Baso # (Auto) (0.0-0.2) X10*3/uL Abs Immat Gran (auto) (0.00-0.03) X10*3/uL Absolute Neuts (auto) (2.0-8.3) x10*3/uL Absolute Nucleated RBC (0.0-0.012) X10*3/uL Nucleated RBC % (auto) (0.0-0.2) /100WBC Sodium (135-145) mmol/L Potassium (3.3-5.1) mmol/L Chloride (96-108) mmol/L Carbon Dioxide (22-29) mmol/L Anion Gap (12-20) BUN (9-16) mg/dL Creatinine (0.5-1.4) mg/dL Estim Creat Clear Calc Estimated GFR Random Glucose (60-115) mg/dL Lactic Acid 1.6 (0.5-2.0) mmol/L Calcium (8.4-10.2) mg/dL Magnesium (1.6-2.6) mg/dL Lipase (8-78) U/L Urine Color Urine Appearance Urine pH (5.0-9.0) Ur Specific [place] (1.005-1.025) Urine Protein (Neg-Trace) mg/dL Urine Glucose (UA) (Negative) mg/dL Urine Ketones (Negative) mg/dL Urine Blood (Negative) Urine Nitrite (Negative) Ur Leukocyte Esterase (Negative) Urine RBC (0-2) /HPF Urine WBC (0-5) /HPF Ur Squamous Epith Cells (0-2) /HPF Urine Bacteria (None Seen) Hyaline Casts (0-2) /LPF Independent Historian Clinical information obtained from an independent historian. History obtained from or confirmed by: EMS External Record Review External record reviewed: Inpatient record Prescription Management I considered prescription management with: Antibiotic Chronic Conditions Patient?s care impacted by: Hypertension and Other (Chronic back pain, history of ESBL recurrent UTI) Medications Administered Discontinued Medications Generic Name Dose Route Start Last Admin Trade Name Freq PRN Reason Stop Dose Admin Diphenhydramine HCl 25 mg 11/19/24 05:22 11/19/24 05:31 Diphenhydramine Hcl 50 Mg/Ml Vial IVPUSH 11/19/24 05:23 25 mg ONCE ONE Administration Haloperidol Lactate 5 mg 11/19/24 05:22 11/19/24 05:31 Haloperidol Lactate 5 Mg/Ml Vial IVPUSH 11/19/24 05:23 5 mg ONCE ONE Administration Lactated Ringer's 1,000 mls @ 999 mls/hr 11/19/24 04:35 11/19/24 05:59 Lr IV 11/19/24 05:35 Infused .Q1H1M ONE Infusion Meropenem 500 mg 11/19/24 05:26 11/19/24 06:30 Meropenem 500 Mg Vial IVPUSH 11/19/24 05:27 500 mg ONCE ONE Administration Morphine Sulfate 4 mg 11/19/24 04:35 11/19/24 04:43 Morphine Sulfate 4 Mg/Ml Cartridge IVPUSH 11/19/24 04:36 4 mg ONCE ONE Administration Protocol Ondansetron HCl 4 mg 11/19/24 04:36 11/19/24 04:41 Ondansetron Hcl 4 Mg/2 Ml Vial IVPUSH 11/19/24 04:37 4 mg ONCE ONE Administration Discharge Plan Discharge Clinical Impression: Recurrent UTI, Acute right flank pain Patient Disposition: Admitted As Inpatient Print Language: Czech
[2024-11-19] MEDS: Lactated Ringers 1,000 ML 999 ML IV (04:41)
[2024-11-19 05:13] LABS: Appearance Urine Clear; Glucose Urine UA Negative (Negative); PH 7.5 (5.0-9.0); Specific Gravity - Urine 1.015 (1.005-1.025); UMIC TRIGGER UACC YES
[2024-11-19 05:18] LABS: UACC Culture Trigger YES
--- OUTSIDE RECORDS SUMMARY | 2024-11-19 06:31 | XMS_ITS | Patient Health Record ---
Author Organization [facility] Address [address] [place] [address] Care Team Providers Care Associate Business Analyst Name Role Phone Namita Acosta NP Primary Care Provider Jose Pizarro Unavailable [phone] Allergies Allergen (clinical drug ingredient) Drug/Non Drug Allergy documented on EMR Reaction Allergy Type Onset Date Status Adhesive rash Allergy Active Fentanyl and Related rash Drug Allergy Active hydrocortisone Hydrocortisone rash Drug Allergy Active lisinopril Lisinopril anaphylaxis Drug Allergy Act shawanda Substance with 7-zzqlujd-5-methylg lutaryl-coenzyme A reductase inhibitor mechanism of action [...] day(s) Active Vitamin D (Ergocalciferol) 1.25 MG (17540 UT) TAKE 1 CAPSULE BY MOUTH 1 [...] atherosclerosis of arteries of lower limbs (disorder) (39533839786515163 ) Atherosclerosis of minto artery of both lower extremities, with unspecified presence of clinical manifestation (I70.203) Active confirmed Problem Rheumatoid arthritis (25513740) Rheumatoid arthritis involving both feet, unspecified whether rheumatoid factor present (M06.9) Active confirmed Plan Of Treatment Pending Test Test Name Order Date [id number] SKIN/TISSUE 01/21/2022 [id number] SKIN/TISSUE 05/25/2022 [id number] SKIN/TISSUE 12/17/2021 [id number] I&D ABSCESS- SIMPLE,SINGLE 023 55490 I&D ABSCESS- SIMPLE,SINGLE 022 Insurance Providers Payer Name Payer Address Payer Phone Subscriber Number Group Number Insured Name Patient Relationship to Insured Coverage Start Date Coverage End Date [employer] Medicare [id number] [address] [address] [place] [address] [id number] Alexandrea Renee Self - patient is the [...] ribs- CT -sameday went back 09/12/21 09/10/21 [facility]-expiration rheumatoid lung-overnight 07/2021
--- OUTSIDE RECORDS SUMMARY | 2024-11-19 06:31 | XMS_ITS | Encounter Summary ---
Author Organization [facility] Address [address] [place] [address] Care Team Providers Care Information Technology Program Manager Name Role Phone Travis Holbrook MD Primary Care Provider [phone] Encounter Details Date Type Department Care Team (Late st Contact Info) Description 03/22/2024 Lab Requisition [facility] - Main Lab [address] [facility] [place] [address] Lavonne Irvin MD [address] [place] [address] Essential (primary) hypertension; Acute kidney failure, unspecified (CMS/HCC V24) Social History Tobacco Use Types Packs/Day Years [...] Unspecified essential hypertension Acute kidney failure, unspecified (CMS/HCC V24) Acute kidney failure, unspecified documented in this encounter Care Teams Information Technology Program Manager Relationship Specialty Start Date End Date Travis Holbrook MD [address] [place] [address] 204 [facility] [phone] PCP - General Family Medicine 02/28/24 documented as of this encounter
--- OUTSIDE RECORDS SUMMARY | 2024-11-19 06:31 | XMS_ITS | Encounter Summary ---
Author Organization [facility] Address [address] [place] [address] Care Team Providers Care Commercial Fisher Name Role Phone Travis Holbrook MD Primary Care Provider [phone] Encounter Details Date Type Department Care Team (Late st Contact Info) Description 03/05/2024 Lab Requisition [facility] - Main Lab 299 [facility] [address] [place] [address] Travis Holbrook MD [address] [place] [phone] Other penitentiary (current) drug therapy Social History Tobacco Use [...] of this encounter Visit Diagnoses Diagnosis Other penitentiary (current) drug therapy documented in this encounter Care Teams Commercial Fisher Relationship Specialty Start Date End Date Travis Holbrook MD [address] [facility] 204 [facility] [phone] PCP - General Family Medicine 02/28/24 documented as of this encounter
--- OUTSIDE RECORDS SUMMARY | 2024-11-19 06:31 | XMS_ITS | Encounter Summary ---
Author Organization [facility] Address [address] [place] [address] Care Team Providers Care Cementer Hand Name Role Phone Travis Holbrook MD Primary Care Provider [phone] Encounter Details Date Type Department Care Team (Late st Contact Info) Description 02/28/2024 Lab Requisition [facility] - Main Lab [address] [facility] [place] [address] Travis Holbrook MD [address] [place] [address] 204 [facility] [phone] Other alf (current) drug therapy Social History Tobacco Use [...] COUNT Routine 02/28/2024 6:48 AM EST Other alf (current) drug therapy BASIC METABOLIC PANEL Routine 02/28/2024 6:48 AM EST Other mule spinner (current) drug therapy documented in this encounter Results * (ABNORMAL) Basic metabolic panel (02/28/2024 6:48 AM EST) Sodium 137 133 - 145 mmol/L LAB CHEMISTRY METHOD 02/28/2024 12:05 PM [facility] Potassium 4.2 3.5 - 5.5 mmol/L LAB CHEMISTRY METHOD 02/28/2024 12:05 PM [facility] Chloride 103 96 - 110 mmol/L LAB CHEMISTRY METHOD 02/28/2024 12:05 PM [facility] CO2 31 21 - 32 mmol/L LAB CHEMISTRY METHOD 02/28/2024 12:05 PM [facility] Anion Gap 3 3 - 11 LAB CHEMISTRY METHOD 02/28/2024 12:05 PM [facility] Glucose 81 70 - 100 mg/dL LAB CHEMISTRY METHOD 02/28/2024 12:05 PM [facility] BUN 26(H) 5 - 25 mg/dL LAB CHEMISTRY METHOD 02/28/2024 12:05 PM [facility] Creatinine 1.00 0.50 - 1.10 mg/dL LAB CHEMISTRY METHOD 02/28/2024 12:05 PM [facility] eGFR 60 >=60 mL/min/1. 73m2 LAB CHEMISTRY METHOD 02/28/2024 12:05 PM [facility] Comment:Calculation based on the Chronic Kidney Disease Epidemiology Collaboration (CKD-EPI) equation refit without adjustment for race. BUN/Creatinine Ratio 26.0 LAB CHEMISTRY METHOD 02/28/2024 12:05 PM [facility] Calcium 9.0 8.5 - 10.5 mg/dL LAB CHEMISTRY METHOD 02/28/2024 12:05 PM [facility] Blood Venous blood specimen / Unknown Venipuncture / Unknown 02/28/2024 6:48 AM EST 02/28/2024 10:45 AM EST us Travis Holbrook MD LAB BLOOD ORDERABLES Final Resul t [facility] [address] [place] [address], [place] [phone] * (ABNORMAL) Complete blood count (02/28/2024 6:48 AM EST) [facility] WBC 6.1 4.8 - 10.8 K/mcL LAB HEMETOLOGY METHOD 02/28/2024 11:33 AM [facility] RBC 3.80 3.80 - 4.80 M/mcL LAB HEMETOLOGY METHOD 02/28/2024 11:33 AM [facility] Hemoglobin 11.4(L) 11.5 - 16.0 g/dL LAB HEMETOLOGY METHOD 02/28/2024 11:33 AM [facility] Hematocrit 36.3 35.0 - 47.0 % LAB HEMETOLOGY METHOD 02/28/2024 11:33 AM [facility] MCV 95.3 79.0 - 98.0 FL LAB HEMETOLOGY METHOD 02/28/2024 11:33 AM [facility] MCH 29.9 27.0 - 32.0 pcg LAB HEMETOLOGY METHOD 02/28/2024 11:33 AM [facility] MCHC 31.4(L) 32.0 - 37.0 g/dL LAB HEMETOLOGY METHOD 02/28/2024 11:33 AM [facility] RDW 15.0 11.0 - 15.0 % LAB HEMETOLOGY METHOD 02/28/2024 11:33 AM [facility] Platelets 180 130 - 400 K/mcL LAB HEMETOLOGY METHOD 02/28/2024 11:33 AM [facility] MPV 10.5 7.0 - 11.0 FL LAB HEMETOLOGY METHOD 02/28/2024 11:33 AM [facility] NRBC 0.0 <1.0 % LAB HEMETOLOGY METHOD 02/28/2024 11:33 AM [facility] LAB NRBC Absolute 0.00 <0.10 K/mcL LAB HEMETOLOGY METHOD 02/28/2024 11:33 AM EST [facility] Blood Venous blood specimen / Unknown Venipuncture / Unknown 02/28/2024 6:48 AM EST 02/28/2024 10:45 AM EST us Travis Holbrook MD LAB BLOOD ORDERABLES Final Resul t [facility] [address] [place] [address], documented in this encounter Visit Diagnoses Diagnosis Other mule spinner (current) drug therapy documented in this encounter Care Teams Cementer Hand Relationship Specialty Start Date End Date Travis Holbrook MD [address] [place] [address], [phone] PCP - General Family Medicine 02/28/24 documented as of this encounter
--- OUTSIDE RECORDS SUMMARY | 2024-11-19 06:31 | XMS_ITS | Encounter Summary ---
Author Organization [facility] Address [address] [place] [address] Care Team Providers Care Carbon Plant Grinder Name Role Phone Travis Holbrook MD Primary Care Provider [phone] Encounter Details Date Type Department Care Team (Late st Contact Info) Description 07/03/2024 Lab Requisition [facility] - Main Lab 299 [facility] [place] [address] Travis Holbrook MD [address] [place] [address] 204 [facility] [phone] Muscle weakness (generalized); Emphysema, unspecified (CMS/HCC V24, [...] Associated Diagnosis Comments COMPLETE BLOOD COUNT Routine 07/03/2024 5:14 AM EDT Muscle weakness (generalized) Emphysema, unspecified (CMS/HCC V24, CMS/HCC V28) documented in this encounter Results * (ABNORMAL) Complete blood count (07/03/2024 5:14 AM EDT) WBC 7.8 4.8 - 10.8 K/[facility] LAB HEMETOLOGY METHOD 07/03/2024 10:02 AM [facility] RBC 3.80 3.80 - 4.80 M/mcL LAB HEMETOLOGY METHOD 07/03/2024 10:02 AM [facility] LAB Hemoglobin 11.4(L) 11.5 - 16.0 g/dL LAB HEMETOLOGY METHOD 07/03/2024 10:02 AM [facility] LAB Hematocrit 36.8 35.0 - 47.0 % LAB HEMETOLOGY METHOD 07/03/2024 10:02 AM [facility] LAB MCV 96.6 79.0 - 98.0 FL LAB HEMETOLOGY METHOD 07/03/2024 10:02 AM [facility] LAB MCH 29.9 27.0 - 32.0 pcg LAB HEMETOLOGY METHOD 07/03/2024 10:02 AM [facility] LAB MCHC 31.0(L) 32.0 - 37.0 g/dL LAB HEMETOLOGY METHOD 07/03/2024 10:02 AM [facility] LAB RDW 16.3(H) 11.0 - 15.0 % LAB HEMETOLOGY METHOD 07/03/2024 10:02 AM [facility] Platelets 202 130 - 400 K/mcL LAB HEMETOLOGY METHOD 07/03/2024 10:02 AM [facility] LAB MPV 12.5(H) 7.0 - 11.0 FL LAB HEMETOLOGY METHOD 07/03/2024 10:02 AM [facility] NRBC 0.0 <1.0 % LAB HEMETOLOGY METHOD 07/03/2024 10:02 AM [facility] LAB NRBC Absolute 0.00 <0.10 K/mcL LAB HEMETOLOGY METHOD 07/03/2024 10:02 AM [facility] Blood Venous blood specimen / Unknown Venipuncture / Unknown 07/03/2024 5:14 AM EDT 07/03/2024 9:27 AM EDT us Travis Holbrook MD LAB BLOOD ORDERABLES Final Resul t [facility] [address] [place] [address], documented in this encounter Visit Diagnoses Diagnosis Muscle weakness (generalized) Emphysema, unspecified (CMS/HCC V24, CMS/HCC V28) documented in this encounter Care Teams Carbon Plant Grinder Relationship Specialty Start Date End Date Travis Holbrook MD [address] [place] [address], [phone] PCP - General Family Medicine 02/28/24 documented as of this encounter
--- OUTSIDE RECORDS SUMMARY | 2024-11-19 06:31 | XMS_ITS | Encounter Summary ---
Author Organization [facility] Address [address] [place] [address] Care Team Providers Care System Safety Engineer Name Role Phone Travis Holbrook MD Primary Care Provider [phone] Encounter Details Date Type Department Care Team (Late st Contact Info) Description 03/16/2024 Lab Requisition [facility] - Main Lab [address] [facility] [place] [address] Lavonne Irvin MD [address] [place], [place] [phone] Essential (primary) hypertension; Acute kidney failure, unspecified [...] mmol/L LAB CHEMISTRY METHOD 03/18/2024 1:26 PM [facility] Potassium 4.1 3.5 - 5.5 mmol/L LAB CHEMISTRY METHOD 03/18/2024 1:26 PM [facility] Chloride 104 96 - 110 mmol/L LAB CHEMISTRY METHOD 03/18/2024 1:26 PM [facility] CO2 31 21 - 32 mmol/L LAB CHEMISTRY METHOD 03/18/2024 1:26 PM [facility] Anion Gap 2(L) 3 - 11 LAB CHEMISTRY METHOD 03/18/2024 1:26 PM [facility] Glucose 75 70 - 100 mg/dL LAB CHEMISTRY METHOD 03/18/2024 1:26 PM [facility] BUN 23 5 - 25 mg/dL LAB CHEMISTRY METHOD 03/18/2024 1:26 PM [facility] Creatinine 1.30(H) 0.50 - 1.10 mg/dL LAB CHEMISTRY METHOD 03/18/2024 1:26 PM [facility] eGFR 44(L) >=60 mL/min/1. 73m2 LAB CHEMISTRY METHOD 03/18/2024 1:26 PM [facility] Comment:Calculation based on the Chronic Kidney Disease Epidemiology Collaboration (CKD-EPI) equation refit without adjustment for race. BUN/Creatinine Ratio 17.7 LAB CHEMISTRY METHOD 03/18/2024 1:26 PM [facility] Calcium 8.9 8.5 - 10.5 mg/dL LAB CHEMISTRY METHOD 03/18/2024 1:26 PM [facility] Blood Venous blood specimen / Unknown Venipuncture / Unknown 03/18/2024 7:09 AM EST 03/18/2024 11:39 AM EST us Lavonne Irvin MD LAB BLOOD ORDERABLES Final Resul t [facility] [address] [place] [address], * (ABNORMAL) Complete blood count (03/18/2024 7:09 AM EST) [facility] WBC 6.3 4.8 - 10.8 K/mcL LAB HEMETOLOGY METHOD 03/18/2024 11:57 AM EST [facility] RBC 3.90 3.80 - 4.80 M/mcL LAB HEMETOLOGY METHOD 03/18/2024 11:57 AM EST [facility] Hemoglobin 11.6 11.5 - 16.0 g/dL LAB HEMETOLOGY METHOD 03/18/2024 11:57 AM [facility] Hematocrit 37.4 35.0 - 47.0 % LAB HEMETOLOGY METHOD 03/18/2024 11:57 AM [facility] MCV 97.1 79.0 - 98.0 FL LAB HEMETOLOGY METHOD 03/18/2024 11:57 AM [facility] MCH 30.1 27.0 - 32.0 pcg LAB HEMETOLOGY METHOD 03/18/2024 11:57 AM [facility] MCHC 31.0(L) 32.0 - 37.0 g/dL LAB HEMETOLOGY METHOD 03/18/2024 11:57 AM EST [facility] RDW 15.9(H) 11.0 - 15.0 % LAB HEMETOLOGY METHOD 03/18/2024 11:57 AM [facility] Platelets 148 130 - 400 K/mcL LAB HEMETOLOGY METHOD 03/18/2024 11:57 AM EST [facility] MPV 11.0 7.0 - 11.0 FL LAB HEMETOLOGY METHOD 03/18/2024 11:57 AM EST [facility] NRBC 0.0 <1.0 % LAB HEMETOLOGY METHOD 03/18/2024 11:57 AM EST [facility] NRBC Absolute 0.00 <0.10 K/mcL LAB HEMETOLOGY METHOD 03/18/2024 11:57 AM EST [facility] Blood Venous blood specimen / Unknown Venipuncture / Unknown 03/18/2024 7:09 AM EST 03/18/2024 11:39 AM EST us Lavonne Irvin MD LAB BLOOD ORDERABLES Final Resul t [facility] [address] [place] [address], documented in this encounter Visit Diagnoses Diagnosis Essential (primary) hypertension Unspecified essential hypertension Acute kidney failure, unspecified (CMS/HCC V24) Acute kidney failure, unspecified documented in this encounter Care Teams System Safety Engineer Relationship Specialty Start Date End Date Travis Holbrook MD [address] [place] [address], [phone] PCP - General Family Medicine 02/28/24 documented as of this encounter
--- OUTSIDE RECORDS SUMMARY | 2024-11-19 06:31 | XMS_ITS | Encounter Summary ---
Author Organization [facility] Address [address] [place] [address] Care Team Providers Care Production Assistant Name Role Phone Travis Holbrook MD Primary Care Provider [phone] Encounter Details Date Type Department Care Team (Late st Contact Info) Description 07/26/2024 Lab Requisition [facility] - Main Lab [address] [facility] [place] [address] Travis Holbrook MD [address] [place] [address] [address] [place], [phone] Muscle weakness (generalized); Emphysema, unspecified (CMS/HCC V24, [...] V28) documented in this encounter Care Teams Production Assistant Relationship Specialty Start Date End Date Travis Holbrook MD [address] [facility] [address] [place], [phone] PCP - General Family Medicine 02/28/24 documented as of this encounter
--- OUTSIDE RECORDS SUMMARY | 2024-11-19 06:31 | XMS_ITS | Clinical Summary ---
Author Organization [address] Address [address] [place] [phone] Phone Care Team Providers Care Healthcare Corporate Account Director Name Role Phone Travis Holbrook MD Primary Care Provider Allergies Active Allergy Reactions Criticality Noted Date Comments Adhesive Tape-Silicones Low 02/06/2017 Tape Other Reaction(s): Rash/Dermatitis Chlorthalidone Medium 08/08/2017 Hypokalemia Hydrochlorothiazide High 02/07/2017 Hyponatremia Lisinopril Anaphylaxis,Swell ing High 02/06/2017 anaphylaxis, 2017 [facility] B[facility]jos-[facility]r-Gkq Reductase Inhibitors 02/06/2017 Statins [Hmg-coa-r Inhibitors] Leg weakness leg pain Sulfa (Sulfonamide Antibiotics) Low 02/06/2017 Sulfa Drugs Other Reaction(s): Rash/Dermatitis Tramadol Low 02/06/2017 Other Reaction(s): Rash/Dermatitis serotonin syndrome , while she was also taking Cymbalta, 2017 Tremor Active Problems Problem Noted Date Diagnosed Date Chronic foot ulcer ([facility] V24, [facility] V28) Chronic patellofemoral pain of left knee 023 Difficult intubation 08/25/2022 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 Gait instability 08/25/2022 Polycythemia vera ([facility] V24, [facility] V28) 03/2022 Post-traumatic osteoarthritis of right knee 03/2022 Proximal muscle weakness 08/25/2022 Right medial tibial plateau fracture, closed, initial encounter 08/25/2022 Urinary incontinence 08/25/2022 Anxiety 08/24/2022 Bronchiectasis ([facility] V24, [facility] V28) 2022 Chronic lower back pain 08/24/2022 COPD (chronic obstructive pu lmonary disease) ([facility] V24, [facility] V28) 08/24/2022 Depression 08/24/2022 GERD (gastroesophageal reflux disease) Jose's thyroiditis 08/24/2022 HLD (hyperlipidemia) 08/24/2022 Lymphedema 08/24/2022 Polycythemia 08/24/2022 Rheumatoid arthritis ([facility] V24, [facility] V28) 08/24/2022 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 Takes Lasix as needed for extra leg swelling present. Bronchiectasis without compl ication ([facility] V24, [facility] V28) 01/10/2019 Overview (04/19/2024): Last Assessment & Plan: [...] ng multiple sites with positive rheumatoid factor ([facility] V24, [facility] V28) 10/09/2017 Overview (04/19/2024): Last Assessment & Plan: Stable at baseline, although some increased pain recently in right knee due to insufficiency fracture. F/u with Dr. Hair as scheduled. Rheumatoid lung disease ([facility] V24, [facility] V2 8) 10/09/2017 Overview (04/19/2024): Last Assessment & Plan: Stable, with close monitoring by Dr. Ordonez of pulmonology. Continue current therapies. Centrilobular emphysema ([facility] V24, [facility] V2 8) 08/23/2017 Overview (04/19/2024): Last Assessment & Plan: [...] Site/Laterality Comments OTHER SURGICAL HISTORY N/A PROCEDURE: OR HYSTEROSCOPY ENDOMETRIAL ABLATION TUBAL LIGATION PROCEDURE: HISTORICAL [...] Last Done Comments Breast Cancer Screening 1950 DTaP,Tdap,and Td Vaccines (1 - Tdap) 02/12/1971 Pneumococcal Vaccine: 50+ Years (1 of 2 - PCV) 02/12/1971 Zoster Vaccines (1 of 2) 02/12/1971 RSV Immunization Adult Patients (1 - Risk 60-74 years 1-dose series) 2012 COVID-19 Vaccine (3 - Moderna risk series) 07/23/2020 06/25/2020, 05/28/2020 Colorectal Cancer Screening: Colonoscopy 02/22/2022 Falls Risk Assessment 02/22/2022 Hepatitis C Screening 02/22/2022 Medicare Annual Wellness Visit 02/22/2022 Osteoporosis Screening (Bone Density Screening) 02/22/2022 Social Influencers of Health Screening 02/22/2022 Depression Screening 03/27/2024 Influenza Vaccine (#1) 2024 Hypertension/CHF/CAD Annual BMP Blood Test 07/22/2025 07/22/2024, 07/15/2024, 07/08/2024, Additional history exists Cholesterol Screening (Lipid Panel) [...] age to complete this topic Meningococcal B Vaccine Aged Out No l onger eligible based on patient's age to complete this topic RSV Immunization Patients Under 20 months Aged Out No longer eligible based on patient's age to complete this topic Varicella Vaccines Aged Out No longer eligible based on patient's age to complete this topic Procedures Procedure Name Priority Date/Time Associated Diagnosis Comments BASIC METABOLIC PANEL Routine 07/22/2024 5:17 AM EDT Muscle weakness (generalized) Emphysema, unspecified (CMS/HCC V24, CMS/HCC V28) LIPID PANEL Routine 07/06/2022 from Last 3 Months or Most Recently Relevant to Health Maintenance Results * (ABNORMAL) Basic metabolic panel (07/22/2024 5:17 AM EDT) Sodium 143 133 - 145 mmol/L LAB CHEMISTRY METHOD 07/22/2024 11:53 AM EDT [facility] Potassium 3.7 3.5 - 5.5 mmol/L LAB CHEMISTRY METHOD 07/22/2024 11:53 AM [facility] Chloride 103 96 - 110 mmol/L LAB CHEMISTRY METHOD 07/22/2024 11:53 AM [facility] CO2 32 21 - 32 mmol/L LAB CHEMISTRY METHOD 07/22/2024 11:53 AM [facility] Anion Gap 8 3 - 11 LAB CHEMISTRY METHOD 07/22/2024 11:53 AM [facility] Glucose 63(L) 70 - 100 mg/dL LAB CHEMISTRY METHOD 07/22/2024 11:53 AM [facility] BUN 24 5 - 25 mg/dL LAB CHEMISTRY METHOD 07/22/2024 11:53 AM [facility] Creatinine 1.30(H) 0.50 - 1.10 mg/dL LAB CHEMISTRY METHOD 07/22/2024 11:53 AM [facility] eGFR 44(L) >=60 mL/min/1. 73m2 LAB CHEMISTRY METHOD 07/22/2024 11:53 AM [facility] Comment:Calculation based on the Chronic Kidney Disease Epidemiology Collaboration (CKD-EPI) equation refit without adjustment for race. BUN/Creatinine Ratio 18.5 LAB CHEMISTRY METHOD 07/22/2024 11:53 AM [facility] Calcium 8.7 8.5 - 10.5 mg/dL LAB CHEMISTRY METHOD 07/22/2024 11:53 AM [facility] Blood Venous blood specimen / Unknown Venipuncture / Unknown 07/22/2024 5:17 AM EDT 07/22/2024 9:39 AM EDT us Travis Holbrook MD LAB BLOOD ORDERABLES Final Resul t [facility] [address] [place] [address], * Lipid panel (07/06/2022) LDL/HDL Ratio 0 [...] Most Recently Relevant to Health Maintenance Insurance [address] [place] [phone] MEDICAID [place] [employer] MEDICARE Care Teams Healthcare Corporate Account Director Relationship Specialty Start Date End Date Travis Holbrook MD [address] [place] [address] [address] [place], [phone] PCP - General Family Medicine 02/28/24
--- OUTSIDE RECORDS SUMMARY | 2024-11-19 06:32 | XMS_ITS | Encounter Summary ---
Author Organization [facility] Address [address] [place] [address] Care Team Providers Care Entry Level Assistant Manager Name Role Phone Travis Holbrook MD Primary Care Provider [phone] Encounter Details Date Type Department Care Team (Late st Contact Info) Description 03/07/2024 Lab Requisition [facility] - Main Lab [address] [facility] [place] [address] Lavonne Irvin MD [address] [place], [place] [phone] Essential (primary) hypertension; Acute kidney failure, unspecified [...] mmol/L LAB CHEMISTRY METHOD 03/07/2024 11:23 AM [facility] Potassium 4.5 3.5 - 5.5 mmol/L LAB CHEMISTRY METHOD 03/07/2024 11:23 AM [facility] Chloride 106 96 - 110 mmol/L LAB CHEMISTRY METHOD 03/07/2024 11:23 AM [facility] CO2 29 21 - 32 mmol/L LAB CHEMISTRY METHOD 03/07/2024 11:23 AM [facility] Anion Gap 5 3 - 11 LAB CHEMISTRY METHOD 03/07/2024 11:23 AM [facility] Glucose 78 70 - 100 mg/dL LAB CHEMISTRY METHOD 03/07/2024 11:23 AM [facility] BUN 25 5 - 25 mg/dL LAB CHEMISTRY METHOD 03/07/2024 11:23 AM [facility] Creatinine 1.27(H) 0.50 - 1.10 mg/dL LAB CHEMISTRY METHOD 03/07/2024 11:23 AM [facility] eGFR 45(L) >=60 mL/min/1. 73m2 LAB CHEMISTRY METHOD 03/07/2024 11:23 AM [facility] Comment:Calculation based on the Chronic Kidney Disease Epidemiology Collaboration (CKD-EPI) equation refit without adjustment for race. BUN/Creatinine Ratio 19.7 LAB CHEMISTRY METHOD 03/07/2024 11:23 AM [facility] Calcium 8.6 8.5 - 10.5 mg/dL LAB CHEMISTRY METHOD 03/07/2024 11:23 AM [facility] Blood Venous blood specimen / Unknown Venipuncture / Unknown 03/07/2024 6:00 AM EST 03/07/2024 10:35 AM EST us Lavonne Irvin MD LAB BLOOD ORDERABLES Final Resul t [facility] [address] [place] [address], * (ABNORMAL) Complete blood count (03/07/2024 6:00 AM EST) [facility] Signature WBC 4.8 4.8 - 10.8 K/mcL LAB HEMETOLOGY METHOD 03/07/2024 10:54 AM EST [facility] RBC 3.70(L) 3.80 - 4.80 M/mcL LAB HEMETOLOGY METHOD 03/07/2024 10:54 AM [facility] Hemoglobin 11.1(L) 11.5 - 16.0 g/dL LAB HEMETOLOGY METHOD 03/07/2024 10:54 AM [facility] Hematocrit 34.6(L) 35.0 - 47.0 % LAB HEMETOLOGY METHOD 03/07/2024 10:54 AM [facility] MCV 94.3 79.0 - 98.0 FL LAB HEMETOLOGY METHOD 03/07/2024 10:54 AM [facility] MCH 30.2 27.0 - 32.0 pcg LAB HEMETOLOGY METHOD 03/07/2024 10:54 AM [facility] MCHC 32.1 32.0 - 37.0 g/dL LAB HEMETOLOGY METHOD 03/07/2024 10:54 AM [facility] RDW 15.2(H) 11.0 - 15.0 % LAB HEMETOLOGY METHOD 03/07/2024 10:54 AM [facility] Platelets 211 130 - 400 K/mcL LAB HEMETOLOGY METHOD 03/07/2024 10:54 AM [facility] MPV 10.3 7.0 - 11.0 FL LAB HEMETOLOGY METHOD 03/07/2024 10:54 AM [facility] NRBC 0.0 <1.0 % LAB HEMETOLOGY METHOD 03/07/2024 10:54 AM EST [facility] NRBC Absolute 0.00 <0.10 K/mcL LAB HEMETOLOGY METHOD 03/07/2024 10:54 AM EST [facility] Blood Venous blood specimen / Unknown Venipuncture / Unknown 03/07/2024 6:00 AM EST 03/07/2024 10:35 AM EST us Lavonne Irvin MD LAB BLOOD ORDERABLES Final Resul t [facility] [address] [place] [address], documented in this encounter Visit Diagnoses Diagnosis Essential (primary) hypertension Unspecified essential hypertension Acute kidney failure, unspecified (CMS/HCC V24) Acute kidney failure, unspecified documented in this encounter Care Teams Entry Level Assistant Manager Relationship Specialty Start Date End Date Travis Holbrook MD [address] [place] [address] [address] [place], [phone] PCP - General Family Medicine 02/28/24 documented as of this encounter
--- OUTSIDE RECORDS SUMMARY | 2024-11-19 06:32 | XMS_ITS | Patient Health Record ---
Author Organization [facility] Address [address] [facility] [address] [place] [address] Care Team Providers Care Image Processing Engineer Name Role Phone Carlos Alberto Murray Primary Care Provider Eduardo Carr MD MSc, Juju Unavailable [phone] Johnny Blanco Unavailable Unavailable Allergies Allergen (clinical [...] Status W/U Status Risk Notes Problem Sciatica (61080893) Sciatica (724.3) Active confirmed Problem Lumbosacral spondylosis without myelopathy (07096899) Lumbosacral spondylosis without myelopathy (721.3) Active confirmed Problem Muscle pain (40449612) Unspecified myalgia and myositis (729.1) Active confirmed Problem Postherpetic polyneuropathy (99854968) 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) Active confirmed Problem Lumbosacral spondylosis without myelopathy (disorder) (00772033) Spondylosis without myelopathy or radiculopathy, lumbosacral region (M47.817) Active confirmed Problem Lumbosacral spondylosis without myelopathy (37679870) Other spondylosis, lumbar region (M47.896) Active confirmed Problem High risk drug monitoring status (942944254) long term care pharmacist current use of opiate analgesic (Z79.891) Active confirmed Problem Lumbar spondylosis (593361051) Lumbar spondylosis (M47.816) Active confirmed Problem Left shoulder pain (8802625854) Left shoulder pain (M25.512) Active confirmed Problem Spondylosis (4802379) Spondylosis (M47.9) Active confirmed Problem Postherpetic neuralgia (6515072) Postherpetic neuralgia (B02.29) Active confirmed Problem Shoulder pain (16651751) Shoulder pain (M25.519) Active confirmed Plan Of [...] MEDICARE [place]GS [address] [place] [phone] [id number] Alexandrea Renee Self - patient is the insured Medical (General) History Medical History History ICD Code Depression Hypercholesterolemia Arthritis Fibromyalgia OCD peripheral neuropathy Surgical History Surgery Date(Month/Year) L knee replacement 2003 L knee revision 2010 Uterine Ablation Tubal Ligation R knee Meniscus repair 2011
--- OUTSIDE RECORDS SUMMARY | 2024-11-19 06:32 | XMS_ITS | Encounter Summary ---
Author Organization [facility] Address [address] [place] [address] Care Team Providers Care Sub Plant Manager Name Role Phone Travis Holbrook MD Primary Care Provider [phone] Encounter Details Date Type Department Care Team (Late st Contact Info) Description 07/03/2024 Lab Requisition [facility] - Main Lab [address] [facility] [place] [address] Travis Holbrook MD [address] [place] [address] [address] [facility] [phone] Other assisted (current) drug therapy Social History Tobacco Use [...] Procedure Name Priority Date/Time Associated Diagnosis Comments COMPREHENSIVE METABOLIC PANEL Routine 07/03/2024 11:40 AM EDT Other reel assembler (current) drug therapy documented in this encounter Results * (ABNORMAL) Comprehensive metabolic panel (07/03/2024 11:40 AM EDT) Sodium 134 133 - 145 mmol/L LAB CHEMISTRY METHOD 07/03/2024 2:18 PM EDT [facility] Potassium 4.7 3.5 - 5.5 mmol/L LAB CHEMISTRY METHOD 07/03/2024 2:18 PM [facility] Chloride 99 96 - 110 mmol/L LAB CHEMISTRY METHOD 07/03/2024 2:18 PM [facility] CO2 28 21 - 32 mmol/L LAB CHEMISTRY METHOD 07/03/2024 2:18 PM [facility] Anion Gap 7 3 - 11 LAB CHEMISTRY METHOD 07/03/2024 2:18 PM [facility] Glucose 79 70 - 100 mg/dL LAB CHEMISTRY METHOD 07/03/2024 2:18 PM [facility] BUN 19 5 - 25 mg/dL LAB CHEMISTRY METHOD 07/03/2024 2:18 PM [facility] Creatinine 1.09 0.50 - 1.10 mg/dL LAB CHEMISTRY METHOD 07/03/2024 2:18 PM [facility] eGFR 54(L) >=60 mL/min/1. 73m2 LAB CHEMISTRY METHOD 07/03/2024 2:18 PM [facility] Comment:Calculation based on the Chronic Kidney Disease Epidemiology Collaboration (CKD-EPI) equation refit without adjustment for race. BUN/Creatinine Ratio 17.4 LAB CHEMISTRY METHOD 07/03/2024 2:18 PM [facility] Calcium 9.2 8.5 - 10.5 mg/dL LAB CHEMISTRY METHOD 07/03/2024 2:18 PM [facility] AST (SGOT) 23 10 - 42 unit/L LAB CHEMISTRY METHOD 07/03/2024 2:18 PM [facility] ALT (SGPT) 33 10 - 60 unit/L LAB CHEMISTRY METHOD 07/03/2024 2:18 PM [facility] Alkaline Phosphatase 129(H) 42 - 121 unit/L LAB CHEMISTRY METHOD 07/03/2024 2:18 PM [facility] Total Protein 6.6 6.0 - 8.0 g/dL LAB CHEMISTRY METHOD 07/03/2024 2:18 PM EDT [facility] Albumin 2.6(L) 3.2 - 5.0 g/dL LAB CHEMISTRY METHOD 07/03/2024 2:18 PM EDT [facility] Total Bilirubin 0.4 0.0 - 1.4 mg/dL LAB CHEMISTRY METHOD 07/03/2024 2:18 PM EDT [facility] Blood Venous blood specimen / Unknown 07/03/2024 11:40 AM EDT 07/03/2024 1:16 PM EDT us Travis Holbrook MD LAB BLOOD ORDERABLES Final Resul t [facility] [address] [place] [address], documented in this encounter Visit Diagnoses Diagnosis Other reel assembler (current) drug therapy documented in this encounter Care Teams Sub Plant Manager Relationship Specialty Start Date End Date Travis Holbrook MD [address] [place] [address] [address] [place], [phone] PCP - General Family Medicine 02/28/24 documented as of this encounter
--- OUTSIDE RECORDS SUMMARY | 2024-11-19 06:32 | XMS_ITS | Encounter Summary ---
Author Organization [facility] Address [address] [place] [address] Care Team Providers Care Patient Support Partner Name Role Phone Travis Holbrook MD Primary Care Provider [phone] Encounter Details Date Type Department Care Team (Late st Contact Info) Description 07/12/2024 Lab Requisition [facility] - Main Lab 299 [facility] [place] [address] Travis Holbrook MD [address] [place] [address] 204 [facility] [phone] Muscle weakness (generalized); Emphysema, unspecified (CMS/HCC V24, CMS/HCC V28); Hypokalemia Social History Tobacco Use Types Packs/Day Years [...] Associated Diagnosis Comments COMPLETE BLOOD COUNT Routine 07/15/2024 5:26 AM EDT Muscle weakness (generalized) Emphysema, unspecified (CMS/HCC V24, CMS/HCC V28) Hypokalemia MAGNESIUM Routine 07/15/2024 5:26 AM EDT Muscle weakness (generalized) Emphysema, unspecified (CMS/HCC V24, CMS/HCC V28) Hypokalemia BASIC METABOLIC PANEL Routine 07/15/2024 5:26 AM EDT Muscle weakness (generalized) Emphysema, unspecified (CMS/HCC V24, CMS/HCC V28) Hypokalemia documented in this encounter Results * Magnesium (07/15/2024 5:26 AM EDT) Pathologist [facility] Magnesium 2.1 1.9 - 2.6 mg/dL LAB CHEMISTRY METHOD 07/15/2024 2:[address] [facility] Blood Venous blood specimen / Unknown Venipuncture / Unknown 07/15/2024 5:26 AM EDT 07/15/2024 10:23 AM EDT us Travis Holbrook MD LAB BLOOD ORDERABLES Final Resul t [facility] [address] [place] [address], * (ABNORMAL) Basic metabolic panel (07/15/2024 5:26 AM EDT) [facility] Sodium 143 133 - 145 mmol/L LAB CHEMISTRY METHOD 07/15/2024 2:29 PM [facility] Potassium 3.8 3.5 - 5.5 mmol/L LAB CHEMISTRY METHOD 07/15/2024 2:29 PM [facility] Chloride 102 96 - 110 mmol/L LAB CHEMISTRY METHOD 07/15/2024 2:[address] [facility] CO2 30 21 - 32 mmol/L LAB CHEMISTRY METHOD 07/15/2024 2:29 PM [facility] Anion Gap 11 3 - 11 LAB CHEMISTRY METHOD 07/15/2024 2:29 PM [facility] Glucose 65(L) 70 - 100 mg/dL LAB CHEMISTRY METHOD 07/15/2024 2:29 PM [facility] BUN 19 5 - 25 mg/dL LAB CHEMISTRY METHOD 07/15/2024 2:[address] [facility] Creatinine 1.17(H) 0.50 - 1.10 mg/dL LAB CHEMISTRY METHOD 07/15/2024 2:[address] [facility] eGFR 50(L) >=60 mL/min/1. 73m2 LAB CHEMISTRY METHOD 07/15/2024 2:[address] [facility] Comment:Calculation based on the Chronic Kidney Disease Epidemiology Collaboration (CKD-EPI) equation refit without adjustment for race. BUN/Creatinine Ratio 16.2 LAB CHEMISTRY METHOD 07/15/2024 2:[address] [facility] Calcium 9.3 8.5 - 10.5 mg/dL LAB CHEMISTRY METHOD 07/15/2024 2:[address] [facility] Blood Venous blood specimen / Unknown Venipuncture / Unknown 07/15/2024 5:26 AM EDT 07/15/2024 10:23 AM EDT us Travis Holbrook MD LAB BLOOD ORDERABLES Final Resul t [facility] [address] [place] [address], * (ABNORMAL) Complete blood count (07/15/2024 5:26 AM EDT) WBC 5.0 4.8 - 10.8 K/mcL LAB HEMETOLOGY METHOD 07/15/2024 11:[address] [facility] RBC 3.90 3.80 - 4.80 M/mcL LAB HEMETOLOGY METHOD 07/15/2024 11:[address] [facility] Hemoglobin 11.6 11.5 - 16.0 g/dL LAB HEMETOLOGY METHOD 07/15/2024 11:[address] [facility] Hematocrit 37.1 35.0 - 47.0 % LAB HEMETOLOGY METHOD 07/15/2024 11:[address] [facility] MCV 96.1 79.0 - 98.0 FL LAB HEMETOLOGY METHOD 07/15/2024 11:[address] [facility] MCH 30.1 27.0 - 32.0 pcg LAB HEMETOLOGY METHOD 07/15/2024 11:[address] [facility] MCHC 31.3(L) 32.0 - 37.0 g/dL LAB HEMETOLOGY METHOD 07/15/2024 11:[address] [facility] RDW 15.7(H) 11.0 - 15.0 % LAB HEMETOLOGY METHOD 07/15/2024 11:[address] [facility] Platelets 204 130 - 400 K/mcL LAB HEMETOLOGY METHOD 07/15/2024 11:[address] [facility] MPV 11.0 7.0 - 11.0 FL LAB HEMETOLOGY METHOD 07/15/2024 11:[address] [facility] NRBC 0.0 <1.0 % LAB HEMETOLOGY METHOD 07/15/2024 11:[address] [facility] NRBC Absolute 0.00 <0.10 K/mcL LAB HEMETOLOGY METHOD 07/15/2024 11:34 AM [facility] Blood Venous blood specimen / Unknown Venipuncture / Unknown 07/15/2024 5:26 AM EDT 07/15/2024 10:23 AM EDT us Travis Holbrook MD LAB BLOOD ORDERABLES Final Resul t [facility] [address] [place] [address], documented in this encounter Visit Diagnoses Diagnosis Muscle weakness (generalized) Emphysema, unspecified (CMS/HCC V24, CMS/HCC V28) Hypokalemia Hypopotassemia documented in this encounter Care Teams Patient Support Partner Relationship Specialty Start Date End Date Travis Holbrook MD [address] [place] [address], [phone] PCP - General Family Medicine 02/28/24 documented as of this encounter
--- OUTSIDE RECORDS SUMMARY | 2024-11-19 06:32 | XMS_ITS | Encounter Summary ---
Author Organization [facility] [address] Address [address] [place] [address] Care Team Providers Care Sensor Specialist Name Role Phone Travis Holbrook MD Primary Care Provider [phone] Encounter Details Date Type Department Care Team (Late st Contact Info) Description 07/05/2024 Lab Requisition [facility] - Main Lab 299 [facility] [place] [address] Travis Holbrook MD [address] [place] [address] 204 [facility] [phone] Muscle weakness (generalized); Emphysema, unspecified [...] Associated Diagnosis Comments COMPLETE BLOOD COUNT Routine 07/08/2024 5:44 AM EDT Muscle weakness (generalized) Emphysema, unspecified (CMS/HCC V24, CMS/HCC V28) BASIC METABOLIC PANEL Routine 07/08/2024 5:44 AM EDT Muscle weakness (generalized) Emphysema, unspecified (CMS/HCC V24, CMS/HCC V28) documented in this encounter Results * (ABNORMAL) Basic metabolic panel (07/08/2024 5:44 AM EDT) Sodium 140 133 - 145 mmol/L LAB CHEMISTRY METHOD 07/08/2024 8:22 AM [facility] Potassium 3.9 3.5 - 5.5 mmol/L LAB CHEMISTRY METHOD 07/08/2024 8:22 AM [facility] Comment:Hemolysis present Chloride 103 96 - 110 mmol/L LAB CHEMISTRY METHOD 07/08/2024 8:22 AM [facility] CO2 31 21 - 32 mmol/L LAB CHEMISTRY METHOD 07/08/2024 8:22 AM [facility] Anion Gap 6 3 - 11 LAB CHEMISTRY METHOD 07/08/2024 8:22 AM [facility] Glucose 97 70 - 100 mg/dL LAB CHEMISTRY METHOD 07/08/2024 8:22 AM [facility] Comment:Lipemia present BUN 26(H) 5 - 25 mg/dL LAB CHEMISTRY METHOD 07/08/2024 8:22 AM [facility] Creatinine 1.30(H) 0.50 - 1.10 mg/dL LAB CHEMISTRY METHOD 07/08/2024 8:22 AM [facility] eGFR 44(L) >=60 mL/min/1. 73m2 LAB CHEMISTRY METHOD 07/08/2024 8:22 AM [facility] Comment:Calculation based on the Chronic Kidney Disease Epidemiology Collaboration (CKD-EPI) equation refit without adjustment for race. BUN/Creatinine Ratio 20.0 LAB CHEMISTRY METHOD 07/08/2024 8:22 AM [facility] Calcium 9.0 8.5 - 10.5 mg/dL LAB CHEMISTRY METHOD 07/08/2024 8:22 AM [facility] Blood Venous blood specimen / Unknown Venipuncture / Unknown 07/08/2024 5:44 AM EDT 07/08/2024 7:28 AM EDT us Travis Holbrook MD LAB BLOOD ORDERABLES Final Resul t [facility] [address] [place] [address], * (ABNORMAL) Complete blood count (07/08/2024 5:44 AM EDT) WBC 6.1 4.8 - 10.8 K/mcL LAB HEMETOLOGY METHOD 07/08/2024 8:03 AM EDT [facility] RBC 3.90 3.80 - 4.80 M/mcL LAB HEMETOLOGY METHOD 07/08/2024 8:03 AM [facility] Hemoglobin 11.7 11.5 - 16.0 g/dL LAB HEMETOLOGY METHOD 07/08/2024 8:03 AM [facility] Hematocrit 37.1 35.0 - 47.0 % LAB HEMETOLOGY METHOD 07/08/2024 8:03 AM [facility] MCV 95.9 79.0 - 98.0 FL LAB HEMETOLOGY METHOD 07/08/2024 8:03 AM [facility] MCH 30.2 27.0 - 32.0 pcg LAB HEMETOLOGY METHOD 07/08/2024 8:03 AM [facility] MCHC 31.5(L) 32.0 - 37.0 g/dL LAB HEMETOLOGY METHOD 07/08/2024 8:03 AM [facility] RDW 15.9(H) 11.0 - 15.0 % LAB HEMETOLOGY METHOD 07/08/2024 8:03 AM [facility] Platelets 223 130 - 400 K/mcL LAB HEMETOLOGY METHOD 07/08/2024 8:03 AM [facility] MPV 10.9 7.0 - 11.0 FL LAB HEMETOLOGY METHOD 07/08/2024 8:03 AM EDT [facility] NRBC 0.0 <1.0 % LAB HEMETOLOGY METHOD 07/08/2024 8:03 AM EDT [facility] NRBC Absolute 0.00 <0.10 K/mcL LAB HEMETOLOGY METHOD 07/08/2024 8:03 AM EDT [facility] Blood Venous blood specimen / Unknown Venipuncture / Unknown 07/08/2024 5:44 AM EDT 07/08/2024 7:28 AM EDT us Travis Holbrook MD LAB BLOOD ORDERABLES Final Resul t [facility] [address] [place] [address], documented in this encounter Visit Diagnoses Diagnosis Muscle weakness (generalized) Emphysema, unspecified (CMS/HCC V24, CMS/HCC V28) documented in this encounter Care Teams Sensor Specialist Relationship Specialty Start Date End Date Travis Holbrook MD [address] [place] [address], [phone] PCP - General Family Medicine 02/28/24 documented as of this encounter
--- OUTSIDE RECORDS SUMMARY | 2024-11-19 06:32 | XMS_ITS | Encounter Summary ---
Author Organization [facility] Address [address] [place] [address] Care Team Providers Care Valve Setter Name Role Phone Travis Holbrook MD Primary Care Provider [phone] Encounter Details Date Type Department Care Team (Late st Contact Info) Description 03/08/[address] [facility] - Main Lab 299 [facility] [place] [address] Lavonne Irvin MD [address] [place], [place] [phone] Essential (primary) hypertension; Acute kidney failure, unspecified [...] mmol/L LAB CHEMISTRY METHOD 03/11/2024 2:58 PM [facility] Potassium 4.2 3.5 - 5.5 mmol/L LAB CHEMISTRY METHOD 03/11/2024 2:58 PM [facility] Chloride 105 96 - 110 mmol/L LAB CHEMISTRY METHOD 03/11/2024 2:58 PM [facility] CO2 32 21 - 32 mmol/L LAB CHEMISTRY METHOD 03/11/2024 2:58 PM [facility] Anion Gap 4 3 - 11 LAB CHEMISTRY METHOD 03/11/2024 2:58 PM [facility] Glucose 79 70 - 100 mg/dL LAB CHEMISTRY METHOD 03/11/2024 2:58 PM [facility] BUN 20 5 - 25 mg/dL LAB CHEMISTRY METHOD 03/11/2024 2:58 PM [facility] Creatinine 1.34(H) 0.50 - 1.10 mg/dL LAB CHEMISTRY METHOD 03/11/2024 2:58 PM [facility] eGFR 42(L) >=60 mL/min/1. 73m2 LAB CHEMISTRY METHOD 03/11/2024 2:58 PM [facility] Comment:Calculation based on the Chronic Kidney Disease Epidemiology Collaboration (CKD-EPI) equation refit without adjustment for race. BUN/Creatinine Ratio 14.9 LAB CHEMISTRY METHOD 03/11/2024 2:58 PM [facility] Calcium 9.1 8.5 - 10.5 mg/dL LAB CHEMISTRY METHOD 03/11/2024 2:58 PM [facility] Blood Venous blood specimen / Unknown Venipuncture / Unknown 03/11/2024 7:17 AM EST 03/11/2024 11:24 AM EST us Lavonne Irvin MD LAB BLOOD ORDERABLES Final Resul t [facility] [address] [place] [address], * (ABNORMAL) Complete blood count (03/11/2024 7:17 AM EST) [facility] Signature WBC 4.7(L) 4.8 - 10.8 K/mcL LAB HEMETOLOGY METHOD 03/11/2024 11:48 AM EST [facility] RBC 3.70(L) 3.80 - 4.80 M/mcL LAB HEMETOLOGY METHOD 03/11/2024 11:48 AM [facility] Hemoglobin 11.2(L) 11.5 - 16.0 g/dL LAB HEMETOLOGY METHOD 03/11/2024 11:48 AM [facility] Hematocrit 35.8 35.0 - 47.0 % LAB HEMETOLOGY METHOD 03/11/2024 11:48 AM [facility] MCV 97.0 79.0 - 98.0 FL LAB HEMETOLOGY METHOD 03/11/2024 11:48 AM EST [facility] MCH 30.4 27.0 - 32.0 pcg LAB HEMETOLOGY METHOD 03/11/2024 11:48 AM [facility] MCHC 31.3(L) 32.0 - 37.0 g/dL LAB HEMETOLOGY METHOD 03/11/2024 11:48 AM [facility] RDW 15.5(H) 11.0 - 15.0 % LAB HEMETOLOGY METHOD 03/11/2024 11:48 AM [facility] Platelets 166 130 - 400 K/mcL LAB HEMETOLOGY METHOD 03/11/2024 11:48 AM [facility] MPV 10.6 7.0 - 11.0 FL LAB HEMETOLOGY METHOD 03/11/2024 11:48 AM [facility] NRBC [...] Resul t [facility] [address] [place] [address], documented in this encounter Visit Diagnoses Diagnosis Essential (primary) hypertension Unspecified essential hypertension Acute kidney failure, unspecified (CMS/HCC V24) Acute kidney failure, unspecified documented in this encounter Care Teams Valve Setter Relationship Specialty Start Date End Date Travis Holbrook MD [address] [place] [address], [phone] PCP - General Family Medicine 02/28/24 documented as of this encounter
--- OUTSIDE RECORDS SUMMARY | 2024-11-19 06:32 | XMS_ITS | Encounter Summary ---
Author Organization [facility] Address [address] [place] [address] Care Team Providers Care Director Of Instrumental Music Name Role Phone Travis Holbrook MD Primary Care Provider [phone] Encounter Details Date Type Department Care Team (Late st Contact Info) Description 07/19/2024 Lab Requisition [facility] - Main Lab 299 [facility] [place] [address] Travis Holbrook MD [address] [place] [address] 204 [facility] [phone] Muscle weakness (generalized); Emphysema, unspecified [...] Associated Diagnosis Comments COMPLETE BLOOD COUNT Routine 07/22/2024 5:17 AM EDT Muscle weakness (generalized) Emphysema, unspecified (CMS/HCC V24, CMS/HCC V28) BASIC METABOLIC PANEL Routine 07/22/2024 5:17 AM EDT Muscle weakness (generalized) Emphysema, unspecified (CMS/HCC V24, CMS/HCC V28) documented in this encounter Results * (ABNORMAL) Basic metabolic panel (07/22/2024 5:17 AM EDT) Sodium 143 133 - 145 mmol/L LAB CHEMISTRY METHOD 07/22/2024 11:53 AM [facility] Potassium 3.7 3.5 - 5.5 mmol/L LAB CHEMISTRY METHOD 07/22/2024 11:53 AM [facility] Chloride 103 96 - 110 mmol/L LAB CHEMISTRY METHOD 07/22/2024 11:53 AM [facility] CO2 32 21 - 32 mmol/L LAB CHEMISTRY METHOD 07/22/2024 11:53 AM [facility] Anion Gap 8 3 - 11 LAB CHEMISTRY METHOD 07/22/2024 11:53 AM [facility] Glucose 63(L) 70 - 100 mg/dL LAB CHEMISTRY METHOD 07/22/2024 11:53 AM [facility] BUN 24 5 - 25 mg/dL LAB CHEMISTRY METHOD 07/22/2024 11:53 AM [facility] Creatinine 1.30(H) 0.50 - 1.10 mg/dL LAB CHEMISTRY METHOD 07/22/2024 11:53 AM [facility] eGFR 44(L) >=60 mL/min/1. 73m2 LAB CHEMISTRY METHOD 07/22/2024 11:53 AM [facility] Comment:Calculation based on the Chronic Kidney Disease Epidemiology Collaboration (CKD-EPI) equation refit without adjustment for race. BUN/Creatinine Ratio 18.5 LAB CHEMISTRY METHOD 07/22/2024 11:53 AM [facility] Calcium 8.7 8.5 - 10.5 mg/dL LAB CHEMISTRY METHOD 07/22/2024 11:53 AM [facility] Blood Venous blood specimen / Unknown Venipuncture / Unknown 07/22/2024 5:17 AM EDT 07/22/2024 9:39 AM EDT us Travis Holbrook MD LAB BLOOD ORDERABLES Final Resul t [facility] [address] [place] [address], [place] [phone] * (ABNORMAL) Complete blood count (07/22/2024 5:17 AM EDT) WBC 5.3 4.8 - 10.8 K/mcL LAB HEMETOLOGY METHOD 07/22/2024 10:02 AM EDT [facility] RBC 4.00 3.80 - 4.80 M/mcL LAB HEMETOLOGY METHOD 07/22/2024 10:02 AM EDT [facility] Hemoglobin 11.6 11.5 - 16.0 g/dL LAB HEMETOLOGY METHOD 07/22/2024 10:02 AM [facility] Hematocrit 37.5 35.0 - 47.0 % LAB HEMETOLOGY METHOD 07/22/2024 10:02 AM EDT [facility] MCV 94.9 79.0 - 98.0 FL LAB HEMETOLOGY METHOD 07/22/2024 10:02 AM EDT [facility] MCH 29.4 27.0 - 32.0 pcg LAB HEMETOLOGY METHOD 07/22/2024 10:02 AM [facility] MCHC 30.9(L) 32.0 - 37.0 g/dL LAB HEMETOLOGY METHOD 07/22/2024 10:02 AM EDT [facility] RDW 15.4(H) 11.0 - 15.0 % LAB HEMETOLOGY METHOD 07/22/2024 10:02 [facility] Platelets 142 130 - 400 K/mcL LAB HEMETOLOGY METHOD 07/22/2024 10:02 [facility] MPV 11.1(H) 7.0 - 11.0 FL LAB HEMETOLOGY METHOD 07/22/2024 10:02 AM EDT [facility] NRBC 0.0 <1.0 % LAB HEMETOLOGY METHOD 07/22/2024 10:02 AM EDT [facility] NRBC Absolute 0.00 <0.10 K/mcL LAB HEMETOLOGY METHOD 07/22/2024 10:02 AM EDT [facility] Blood Venous blood specimen / Unknown Venipuncture / Unknown 07/22/2024 5:17 AM EDT 07/22/2024 9:39 AM EDT us Travis Holbrook MD LAB BLOOD ORDERABLES Final Resul t [facility] [address] [place] [address], documented in this encounter Visit Diagnoses Diagnosis Muscle weakness (generalized) Emphysema, unspecified (CMS/HCC V24, CMS/HCC V28) documented in this encounter Care Teams Director Of Instrumental Music Relationship Specialty Start Date End Date Travis Holbrook MD [address] [place] [address], [phone] PCP - General Family Medicine 02/28/24 documented as of this encounter
[2024-11-19] MEDS: oxyCODONE HCl Immed Release 5 MG TABLET 20 MG PO ×4 (06:42→23:50)
--- NOTE | 2024-11-19 08:41 | PHA.MEDREC ---
Addendum entered by Jose Schilling PharmD 11/19/24 08:50: reviewed Original Note: Pharmacy Consult ? Medication Reconciliation Pharmacy has completed the medication reconciliation Spoke to patient to confirm med list. Patient was able to confirm all her medications, however there are a few medications that haven't been filled since 04/17/24 for 90 day such as: Bupropion 300 mg with Bupropion 150 mg, Doxazosin 2 mg, Duloxetine 60 mg, Levothyroxine 50 mcg, Omeprazole 40 mg. Prednisone 4 mg (4x 1mg) last filled 08/27/24 for 30 days and Ondansetron 4 mg last filled 05/31/24 for 10 days. Patient states due to multiple hospital stays she has extra medications. Patient confirmed Methotrexate 25 mg (10x 2.5 mg) every Monday, last dose was 11/11/24. Patient reported she last had her medications yesterday afternoon.
--- NOTE | 2024-11-19 09:21 | PM.IMHP ---
History of Present Illness Date of Service: 11/19/24 Chief Complaint: uti 74F PMH ESBL ecoli with bacteremia 06/2024, ESBL uti 08/2024, rheumatoid arthritis on methotrexate and chronic prednisone, hypertension, chronic lymphedema, peripheral vascular disease, COPD, BLADIMIR occlusion, presented with right flank pain. Patient states her pain began 1 day prior to presentation right-sided similar to previous urinary tract infections, which usually do not present with dysuria. She is not having any dysuria at this time either. Denies any fever or chills. But just feels off. In ED note to have hypertension with a systolic blood pressure around 200, positive UA. CT abdomen and pelvis unremarkable. Given dose of meropenem. Review of Systems Review of Systems: Yes all other systems are reviewed and are negative [facility] Medical History Bacteriuria Urinary tract infection due to extended-spectrum beta lactamase (ESBL) producing Escherichia coli History of ESBL E. coli infection Osteomyelitis COPD (chronic obstructive pulmonary disease) Rheumatoid lung Hypothyroidism Congestive heart failure Fibromyalgia HTN (hypertension) Depression Rheumatoid arthritis Family History Father No problems noted. Other Heart disease Surgical History Hx of prior ablation treatment Knee joint replacement status Social History Household Members: None Household Members Other:: 0 Housing: Apartment Do you presently have visiting nurse or other home services: Yes Unable to assess alcohol history related to: Unable to respond Alcohol intake: never Comment: bedside commode Patient Tobacco Use Status: Former Tobacco user Tobacco use type: Cigarette Smoked in Last 30 Days: No e-Cigarette/Vaping Use: Never Used Second Hand Smoke Exposure: No Use of substances other than those prescribed or required for medical reasons: No Advance Directives: Yes Advance Directives on File: Yes Advance Directives Date on File: 10/19/23 service: No Meds Allergies Allergy/AdvReac Type Severity Reaction Status Date / Time lisinopril (LISINOPRIL) Allergy Severe ANAPHYLAXIS Verified 11/19/24 03:58 Sulfa (Sulfonamide Allergy Intermediate RASH Verified 11/19/24 03:58 Antibiotics) (SULFA (SULFONAMIDE ANTIBIOTICS)) tramadol (TRAMADOL) Allergy Intermediate RASH Verified 11/19/24 03:58 Vnqklrx-KIY-OiO Reductase Allergy Rash Verified 11/19/24 03:58 Inhibitor (Ydzzary-Acv-Ols Reductase Inhibitor) hydrochlorothiazide (HCTZ) AdvReac Unknown ABNORMAL Verified 11/19/24 03:58 LABS? Active Medications: Current Medications Acetaminophen (Acetaminophen 325 Mg Tablet) 650 mg PO Q6H PRN PRN Reason: Pain, Mild 1-3,fever,headache Calcium Carbonate (Calcium Carbonate 750 Mg Tab.Chew) 750 mg PO Q4H PRN PRN Reason: Heartburn Enoxaparin Sodium (Enoxaparin Sodium 40 Mg/0.4 Ml Syringe) 40 mg SUBCUT Q24H EUGENIO Hydromorphone HCl (Hydromorphone Hcl 1 Mg/Ml Syringe) 1 mg IVPUSH ONCE ONE; Protocol Stop: 11/19/24 09:17 Magnesium Hydroxide (Milk Of Magnesia 30 Ml Oral.Susp) 30 ml PO DAILY PRN PRN Reason: Constipation Melatonin (Melatonin 3 Mg Tablet) 6 mg PO BEDTIME PRN PRN Reason: Insomnia Meropenem (Meropenem 1 Gm Vial) 1 gm IVPUSH Q8H EUGENIO Sodium Chloride (0.9 % Sodium Chloride Flush 3 Ml Syringe) 3 ml IVFLUSH QSHIFT EUGENIO Home Medications ?Medication ?Instructions ?Recorded ?Confirmed ?Last Taken ?Type bupropion HCl 300 mg 24 hr tablet, 300 mg PO DAILY@0900 08/23/21 11/19/24 11/18/24 History extended release duloxetine 60 mg capsule,delayed 60 mg PO DAILY 08/23/21 11/19/24 11/18/24 History release levothyroxine 50 mcg tablet 50 mcg PO DAILY@0600 08/23/21 11/19/24 11/18/24 History methotrexate sodium 2.5 mg tablet 25 mg PO MO 08/23/21 11/19/24 11/11/24 History omeprazole 40 mg capsule,delayed 40 mg PO DAILY@62908/23/21 11/19/24 11/18/24 History release prednisone 1 mg tablet 4 mg PO DAILY 08/23/21 11/19/24 11/18/24 History pregabalin 200 mg capsule 200 mg PO BID 01/07/23 11/19/24 11/18/24 History folic acid 1 mg tablet 2 mg PO DAILY 10/13/23 11/19/24 11/18/24 History bupropion HCl 150 mg 24 hr tablet, 150 mg PO DAILY@0900 11/25/23 11/19/24 11/18/24 History extended release acetaminophen 325 mg tablet 650 mg PO Q4H PRN Moderate Pain 03/04/24 11/19/24 Unknown History (Tylenol) (Scale Score 5-6) ibuprofen 200 mg tablet 600 mg PO Q6H PRN Pain 05/03/24 11/19/24 Unknown History melatonin 10 mg tablet 10 mg PO BEDTIME PRN Sleep 05/03/24 11/19/24 Unknown History multivitamin 1 tab PO DAILY 05/03/24 11/19/24 11/18/24 History atenolol 25 mg tablet 50 mg PO DAILY 08/29/24 11/19/24 11/18/24 History fluticasone propionate 50 1 spray intranasal BID PRN Allergy 08/29/24 11/19/24 Unknown History mcg/actuation nasal Symptoms spray,suspension biotin 1 mg tablet 1 mg PO DAILY 10/07/24 11/19/24 11/18/24 History furosemide 40 mg tablet 40 mg PO DAILY 10/07/24 11/19/24 11/18/24 History Physical Exam Vital Signs and Narrative: Vital Signs: Last Vital Signs Temp 98.5 F 11/19/24 06:37 Pulse 68 11/19/24 06:37 Resp 20 11/19/24 06:37 BP 199/84 H 11/19/24 06:37 Pulse Ox 100 11/19/24 06:37 O2 Del Method Room Air 11/19/24 06:37 BMI result Body Mass Index 34.7 General: AO X 3, no acute distress Resp: CTA bilateral, no accessory muscles used CVS: S1,S2,RRR GI: soft, non tender, non distended Neuro: motor grossly intact, alert Psych: appropriate affect, appropriate insight Results Labs 11/19/24 04:09 11/19/24 04:08 Labs: Laboratory Results - last 24 hr 11/19/24 11/19/24 11/19/24 04:08 04:09 05:07 MCV 91.0 MCH 30.5 MCHC 33.5 RDW 15.9 Plt Count 180 MPV 9.5 Immature Gran % (Auto) 1.7 H Neut % (Auto) 63.4 Lymph % (Auto) 22.4 [place] % (Auto) 10.7 Eos % (Auto) 1.4 Baso % (Auto) 0.4 Lymph # (Auto) 2.3 [place] # (Auto) 1.1 Eos # (Auto) 0.1 Baso # (Auto) 0.0 Abs Immat Gran (auto) 0.17 H Absolute Neuts (auto) 6.5 Absolute Nucleated RBC 0.000 Nucleated RBC % (auto) 0.0 Anion Gap 15 Estim Creat Clear Calc 57.9 Estimated GFR 50 Random Glucose 126 H Lactic Acid Calcium 9.0 Magnesium 2.1 Lipase 22 Urine Color Yellow Urine Appearance Clear Urine pH 7.5 Ur Specific Keeler 1.015 Urine Protein Negative Urine Glucose (UA) Negative Urine Ketones Negative Urine Blood Negative Urine Nitrite Positive H Ur Leukocyte Esterase Moderate (2+) H Urine RBC 0-2 Urine WBC 21-50 H Ur Squamous Epith Cells 0-2 Urine Bacteria 4+ Hyaline Casts 0-2 11/19/24 05:28 MCV MCH MCHC RDW Plt Count MPV Immature Gran % (Auto) Neut % (Auto) Lymph % (Auto) [place] % (Auto) Eos % (Auto) Baso % (Auto) Lymph # (Auto) [place] # (Auto) Eos # (Auto) Baso # (Auto) Abs Immat Gran (auto) Absolute Neuts (auto) Absolute Nucleated RBC Nucleated RBC % (auto) Anion Gap Estim Creat Clear Calc Estimated GFR Random Glucose Lactic Acid 1.6 Calcium Magnesium Lipase Urine Color Urine Appearance Urine pH Ur Specific Ke[place] Urine Protein Urine Glucose (UA) Urine Ketones Urine Blood Urine Nitrite Ur Leukocyte Esterase Urine RBC Urine WBC Ur Squamous Epith Cells Urine Bacteria Hyaline Casts Imaging Radiologist's Impressions: Impressions Abdomen/Pelvis CT 11/19/24 06:43 IMPRESSION: 1. No evidence of nephrolithiasis or ureteral obstruction. 2. Markedly atrophic left kidney. Bilateral renal cysts as described. 3. Cholelithiasis. 4. Possible gas in the urinary bladder. This may be due to recent instrumentation. Clinical correlation is recommended. Electronically signed by: Phoenix Santos MD 11/19/2024 08:20 AM EDT Assessment and Plan (1) Acute right flank pain: Status: Acute Plan 74F PMH ESBL ecoli with bacteremia 06/2024, ESBL uti 08/2024, rheumatoid arthritis on methotrexate and chronic prednisone, hypertension, chronic lymphedema, peripheral vascular disease, COPD, BLADIMIR occlusion, presented with right flank pain Urinary tract infection with risk factors for ESBL IV meropenem, follow-up culture, Infectious Disease eval Uncontrolled hypertension Partially due to pain, pain control, continue atenolol, doxazosin Chronic opiate dependence Continue oxycodone Rheumatoid arthritis Prednisone On methotrexate as outpatient COPD Inhalers p.r.n. Hypothyroid Levothyroxine Mood disorder Bupropion Cymbalta DVT prophylaxis-Lovenox Full Code Given history of multidrug resistant UTIs and need for IV antibiotics and finalization of cultures expected require at least 2 midnights inpatient Quality Stroke Does the patient have a stroke diagnosis?: No VTE Prior VTE?: No VTE Risk Level:: Medical - moderate - high VTE Device Contraindication: Treatment Not Indicated VTE Drug Contraindication: N/A - Med Ordered
[2024-11-19] MEDS: buPROPion HCl XL 150 MG TAB.ER.24H PO (09:56)
--- NOTE | 2024-11-19 10:25 | PC.NURSE ---
Patient with elevated oral temp and rigours. Alert and oriented, reporting only pain is chronic back pain. Provider aware , iv tylenol given, provider at bedside to assess patient. Patient remains alert and oriented, reports improved nausea and lower back pain s/p iv med administration.
--- NOTE | 2024-11-19 11:24 | PC.NURSE ---
HR improved to upper 90`s, MD aware stating to hold cogentin at this time d/t improved rigors.
[2024-11-19] MEDS: 0.9 % Sodium Chloride Flush 3 ML SYRINGE IVFLUSH ×2 (15:44→22:04)
[2024-11-20] VITALS (7 sets, daily range): BP systolic 135–154; BP diastolic 60–71; PULSE 67–94; RESP 16–18; TEMP 36.2–36.7; O2SAT 93–97
[2024-11-20] MEDS: oxyCODONE HCl Immed Release 5 MG TABLET 20 MG PO ×4 (06:43→21:30)
[2024-11-20 07:45] LABS: Hematocrit 40.6 % (37.0-47.0); Hemoglobin 13.2 g/dl (12.0-16.0); Mean Corpuscular HGB Conc 32.5 g/dl (31.0-35.0); Mean Corpuscular Hemoglobin 30.6 pg (27.0-33.0); Mean Corpuscular Volume 94.2 fL (80.0-98.0); NRBC Abs Auto 0.000 X10*3/uL (0.0-0.012); NRBC Pct Auto 0.0 /100WBC (0.0-0.2); Red Blood Count 4.31 X10*6/uL (4.20-5.50); White Blood Count 12.6 X10*3/uL (4.8-10.8)
[2024-11-20 08:12] LABS: Anion Gap 14 (12-20); Blood Urea Nitrogen 24 mg/dL (9-16); Calcium 8.4 mg/dL (8.4-10.2); Carbon Dioxide 22 mmol/L (22-29); Chloride 105 mmol/L (96-108); Creatinine Clr Calc Pharmacy 50.7; Estimated Glomerular Filt Rate 43; Potassium 4.9 mmol/L (3.3-5.1); Sodium 136 mmol/L (135-145)
[2024-11-20 08:32] LABS: Platelet Count 98 X10*3/uL (160-400)
--- NOTE | 2024-11-20 09:46 | MHC.CM.PN ---
Addendum entered by Tonia Terrell 11/20/24 10:15: For DME, the pt. also has home O2, which she uses at night, from [facility]. Original Note: IMM 11/20/24, Pt. lives alone, PCP is: Namita Acosta in [place], HCP is on file and confirmed: Yuliana. Pt. has home health services 5 days a week, 2 hours a day through [facility], agency is [facility]. She has used [facility] in the recent past and this is her preference for future referrals. She uses an electric w/c, she does not walk, she is able to stand and pivot. She will need BLS transport home at DC, DCP: home with services, CM to follow for DC needs.
--- NOTE | 2024-11-20 10:02 | P.CDIM_ITS ---
PROVIDER RESPONSE TEXT: To clarify, the appropriate diagnosis supported by the clinical indicators: Diastolic: chronic QUERY TEXT: PHYSICIAN'S DOCUMENTATION REQUEST Date of Query: 11/20/2024 09:49 AM EDT Patient Name: Alexandrea Renee Admit Date: 11/19/2024 Dear Gonzales Moreno MD, A review of the medical record indicates additional documentation may be needed. Please review below and update the documentation accordingly. Clinical Indicators: Progress note dated 11/19/24 - PMH: Congestive heart failure Home medication: Furosemide 40 mg Tab Lasix History of Echo performed. Please provide further specificity regarding the most likely type and acuity of CHF that is documented within the medical record, if known: Systolic Please specify if Acute, Chronic, or Acute on chronic, or Unable to determine Diastolic Please specify if Acute, Chronic, or Acute on chronic, or Unable to determine Combined Systolic/Diastolic Please specify if Acute, Chronic, or Acute on chronic, or Unable to determine Other (explain) Clinically unable to determine (explain) Thank you, Callie Mccormick, CCS, CDIS Use of terms such as suspected, likely, concern for, or probable (associated with a specific diagnosis that is being evaluated, monitored, or treated as if it exists) are acceptable and can be coded in the inpatient setting, when documented at the time of discharge. Please use your independent medical judgment in providing your response. THIS QUERY IS PART OF THE PERMANENT MEDICAL RECORD
[2024-11-20] MEDS: buPROPion HCl XL 300 MG TAB.ER.24H PO (10:18)
[2024-11-20] MEDS: buPROPion HCl XL 150 MG TAB.ER.24H PO (10:18)
[2024-11-20] MEDS: 0.9 % Sodium Chloride Flush 3 ML SYRINGE IVFLUSH ×3 (10:20→21:30)
--- NOTE | 2024-11-20 11:22 | P.PNIM_ITS ---
Subjective Subjective Date of Service: 11/20/24 Interval History: Improving Physical Exam 2 Exam: Exam: General: AO X 3, no acute distress Resp: CTA bilateral, no accessory muscles used CVS: S1,S2,RRR GI: soft, non tender, non distended Neuro: motor grossly intact, alert Psych: appropriate affect, appropriate insight Vital Signs: Vital Signs: Last Vital Signs Temp 97.8 F 11/20/24 11:20 Pulse 80 11/20/24 11:20 Resp 18 11/20/24 11:20 BP 135/60 11/20/24 11:20 Pulse Ox 94 11/20/24 11:20 O2 Del Method Room Air 11/20/24 11:20 BMI result Body Mass Index 34.7 Objective Data Active Medications Acetaminophen (Acetaminophen 325 Mg Tablet) 650 mg PO Q6H PRN PRN Reason: Pain, Mild 1-3,fever,headache Last Admin: 11/20/24 10:18 Dose: 650 mg Documented By: REJI Ascorbic Acid (Ascorbic Acid 500 Mg Tablet) 1,000 mg PO DAILY [facility] Last Admin: 11/20/24 10:19 Dose: 1,000 mg Documented By: REJI Atenolol (Atenolol 50 Mg Tablet) 50 mg PO DAILY [facility]; Protocol Last Admin: 11/20/24 10:19 Dose: 50 mg Documented By: REJI Bupropion HCl (Bupropion Hcl Xl 150 Mg Tab.Er.24h) 150 mg PO DAILY@0900 [facility] Last Admin: 11/20/24 10:18 Dose: 150 mg Documented By: REJI Bupropion HCl (Bupropion Hcl Xl 300 Mg Tab.Er.24h) 300 mg PO DAILY@0900 [facility] Last Admin: 11/20/24 10:18 Dose: 300 mg Documented By: REJI Calcium Carbonate (Calcium Carbonate 750 Mg Tab.Chew) 750 mg PO Q4H PRN PRN Reason: Heartburn Doxazosin Mesylate (Doxazosin Mesylate 2 Mg Tablet) 2 mg PO BEDTIME [facility]; Protocol Last Admin: 11/19/24 21:56 Dose: 2 mg Documented By: MIAH Duloxetine HCl (Duloxetine Hcl 60 Mg Capsule.Dr) 60 mg PO DAILY [facility] Last Admin: 11/20/24 10:19 Dose: 60 mg Documented By: REJI Enoxaparin Sodium (Enoxaparin Sodium 40 Mg/0.4 Ml Syringe) 40 mg SUBCUT Q24H [facility] Last Admin: 11/20/24 10:19 Dose: 40 mg Documented By: REJI Folic Acid (Folic Acid 1 Mg Tablet) 2 mg PO DAILY [facility] Last Admin: 11/20/24 10:19 Dose: 2 mg Documented By: REJI Furosemide (Furosemide 40 Mg Tablet) 40 mg PO DAILY [facility]; Protocol Last Admin: 11/20/24 10:19 Dose: 40 mg Documented By: REJI Levothyroxine Sodium (Levothyroxine Sodium 50 Mcg Tablet) 50 mcg PO DAILY@0600 [facility] Last Admin: 11/20/24 06:42 Dose: 50 mcg Documented By: MIAH Magnesium Hydroxide (Milk Of Magnesia 30 Ml Oral.Susp) 30 ml PO DAILY PRN PRN Reason: Constipation Melatonin (Melatonin 3 Mg Tablet) 6 mg PO BEDTIME PRN PRN Reason: Insomnia Meropenem (Meropenem 1 Gm Vial) 1 gm IVPUSH Q8H [facility] Last Admin: 11/20/24 04:36 Dose: 1 gm Documented By: MIAH Multivitamins/Vitamin C (Multivitamin Tablet) 1 tab PO DAILY [facility] Last Admin: 11/20/24 10:19 Dose: 1 tab Documented By: REJI Omeprazole (Omeprazole 40 Mg Capsule.) 40 mg PO DAILY@0630 [facility] Last Admin: 11/20/24 06:42 Dose: 40 mg Documented By: MIAH Ondansetron HCl (Ondansetron Hcl 4 Mg/2 Ml Vial) 4 mg IVPUSH Q6H PRN PRN Reason: Nausea Last Admin: 11/19/24 09:47 Dose: 4 mg Documented By: SUDHIR Oxycodone HCl (Oxycodone Hcl Immed Release 5 Mg Tablet) 20 mg PO Q4H PRN PRN Reason: pain (scale score 7-10) Last Admin: 11/20/24 06:43 Dose: 20 mg Documented By: MIAH Prednisone (Prednisone 1 Mg Tablet) 4 mg PO DAILY [facility] Last Admin: 11/20/24 10:18 Dose: 4 mg Documented By: REJI Pregabalin (Pregabalin 200 Mg Capsule) 200 mg PO BID [facility] Last Admin: 11/20/24 10:18 Dose: 200 mg Documented By: REJI Sodium Chloride (0.9 % Sodium Chloride Flush 3 Ml Syringe) 3 ml IVFLUSH QSHIFT [facility] Last Admin: 11/20/24 10:20 Dose: 3 ml Documented By: REJI Labs 11/20/24 06:27 11/20/24 06:27 Labs: Laboratory Results - last 24 hr 11/20/24 06:27 MCV 94.2 MCH 30.6 MCHC 32.5 RDW 16.3 H Plt Count 98 L D MPV 11.0 Absolute Nucleated RBC 0.000 Nucleated RBC % (auto) 0.0 Anion Gap 14 Estim Creat Clear Calc 50.7 Estimated GFR 43 Random Glucose 63 Calcium 8.4 D Microbiology Microbiology Results: Microbiology 11/19/24 06:16 Blood Culture - Preliminary Blood - Venous No growth after 24 hours. 11/19/24 05:28 Blood Culture - Preliminary Blood - Venous No growth after 24 hours. Assessment and Plan (1) Acute right flank pain: Status: Acute Plan 74F PMH ESBL ecoli with bacteremia 06/2024, ESBL uti 08/2024, rheumatoid arthritis on methotrexate and chronic prednisone, hypertension, chronic lymphedema, peripheral vascular disease, COPD, BLADIMIR occlusion, presented with right flank pain Sepsis-not severe and acute metabolic encephalopathy due to Urinary tract infection with risk factors for ESBL IV meropenem, follow-up culture, Infectious Disease eval Acute Thrombocytopenia due to medications not sepsis Uncontrolled hypertension Partially due to pain, pain control, continue atenolol, doxazosin Now improved Chronic opiate dependence Continue oxycodone Rheumatoid arthritis Prednisone On methotrexate as outpatient COPD Inhalers p.r.n. Hypothyroid Levothyroxine Mood disorder Bupropion Cymbalta DVT prophylaxis-Lovenox Full Code reason for continued hospitalization:cultures Quality Stroke Does the patient have a stroke diagnosis?: No VTE Prior VTE?: No VTE Risk Level:: Medical - moderate - high VTE Device Contraindication: Treatment Not Indicated VTE Drug Contraindication: N/A - Med Ordered
--- NOTE | 2024-11-20 16:59 | W.PM.IDCN ---
History of Present Illness Data of Consult Service Date: 11/20/24 Requesting physician: Gonzales Moreno Primary Care Provider: Namita Acosta NP HPI Reason for consult: sepsis She presents with chills and nausea and vomiting. Last night he had temperature 104. She has rigors. She is on methenamine and vitamin C and has seen Urology. Review of Systems Review of Systems: Yes all other systems are reviewed and are negative [facility] Past Medical History Medical History (Updated 11/20/24 @ 17:02 by Gege Jesus MD) Sepsis Bacteriuria Urinary tract infection due to extended-spectrum beta lactamase (ESBL) producing Escherichia coli History of ESBL E. coli infection Osteomyelitis COPD (chronic obstructive pulmonary disease) Rheumatoid lung Hypothyroidism Congestive heart failure Fibromyalgia HTN (hypertension) Depression Rheumatoid arthritis Family History Family History Father No problems noted. Other Heart disease Family history: reviewed and not pertinent Surgical History Surgical History Hx of prior ablation treatment Knee joint replacement status Social History Social History Household Members: None Household Members Other:: 0 Housing: Apartment Do you presently have visiting nurse or other home services: Yes (outside care takers) Unable to assess alcohol history related to: Unable to respond Alcohol intake: never Comment: bedside commode Patient Tobacco Use Status: Former Tobacco user Tobacco use type: Cigarette e-Cigarette/Vaping Use: Never Used Second Hand Smoke Exposure: No Advance Directives Date on File: 10/19/23 service: No Meds Allergies Allergy/AdvReac Type Severity Reaction Status Date / Time lisinopril (LISINOPRIL) Allergy Severe ANAPHYLAXIS Verified 11/19/24 03:58 Sulfa (Sulfonamide Allergy Intermediate RASH Verified 11/19/24 03:58 Antibiotics) (SULFA (SULFONAMIDE ANTIBIOTICS)) tramadol (TRAMADOL) Allergy Intermediate RASH Verified 11/19/24 03:58 Ziyhxta-LPO-QgK Reductase Allergy Rash Verified 11/19/24 03:58 Inhibitor (Loogirv-Til-Cxi Reductase Inhibitor) hydrochlorothiazide (HCTZ) AdvReac Unknown ABNORMAL Verified 11/19/24 03:58 LABS? Active Medications: Current Medications Acetaminophen (Acetaminophen 325 Mg Tablet) 650 mg PO Q6H PRN PRN Reason: Pain, Mild 1-3,fever,headache Last Admin: 11/20/24 10:18 Dose: 650 mg Ascorbic Acid (Ascorbic Acid 500 Mg Tablet) 1,000 mg PO DAILY [facility] Last Admin: 11/20/24 10:19 Dose: 1,000 mg Atenolol (Atenolol 50 Mg Tablet) 50 mg PO DAILY [facility]; Protocol Last Admin: 11/20/24 10:19 Dose: 50 mg Bupropion HCl (Bupropion Hcl Xl 150 Mg Tab.Er.24h) 150 mg PO DAILY@0900 EU[facility] Last Admin: 11/20/24 10:18 Dose: 150 mg Bupropion HCl (Bupropion Hcl Xl 300 Mg Tab.Er.24h) 300 mg PO DAILY@0900 [facility] Last Admin: 11/20/24 10:18 Dose: 300 mg Calcium Carbonate (Calcium Carbonate 750 Mg Tab.Chew) 750 mg PO Q4H PRN PRN Reason: Heartburn Doxazosin Mesylate (Doxazosin Mesylate 2 Mg Tablet) 2 mg PO BEDTIME [facility]; Protocol Last Admin: 11/19/24 21:56 Dose: 2 mg Duloxetine HCl (Duloxetine Hcl 60 Mg Capsule.Dr) 60 mg PO DAILY [facility] Last Admin: 11/20/24 10:19 Dose: 60 mg Enoxaparin Sodium (Enoxaparin Sodium 40 Mg/0.4 Ml Syringe) 40 mg SUBCUT Q24H [facility] Last Admin: 11/20/24 10:19 Dose: 40 mg Folic Acid (Folic Acid 1 Mg Tablet) 2 mg PO DAILY [facility] Last Admin: 11/20/24 10:19 Dose: 2 mg Furosemide (Furosemide 40 Mg Tablet) 40 mg PO DAILY [facility]; Protocol Last Admin: 11/20/24 10:19 Dose: 40 mg Levothyroxine Sodium (Levothyroxine Sodium 50 Mcg Tablet) 50 mcg PO DAILY@0600 [facility] Last Admin: 11/20/24 06:42 Dose: 50 mcg Magnesium Hydroxide (Milk Of Magnesia 30 Ml Oral.Susp) 30 ml PO DAILY PRN PRN Reason: Constipation Melatonin (Melatonin 3 Mg Tablet) 6 mg PO BEDTIME PRN PRN Reason: Insomnia Meropenem (Meropenem 1 Gm Vial) 1 gm IVPUSH Q8H [facility] Last Admin: 11/20/24 13:20 Dose: 1 gm Multivitamins/Vitamin C (Multivitamin Tablet) 1 tab PO DAILY [facility] Last Admin: 11/20/24 10:19 Dose: 1 tab Omeprazole (Omeprazole 40 Mg Capsule.Dr) 40 mg PO DAILY@629 [facility] Last Admin: 11/20/24 06:42 Dose: 40 mg Ondansetron HCl (Ondansetron Hcl 4 Mg/2 Ml Vial) 4 mg IVPUSH Q6H PRN PRN Reason: Nausea Last Admin: 11/19/24 09:47 Dose: 4 mg Oxycodone HCl (Oxycodone Hcl Immed Release 5 Mg Tablet) 20 mg PO Q4H PRN PRN Reason: pain (scale score 7-10) Last Admin: 11/20/24 16:25 Dose: 20 mg Prednisone (Prednisone 1 Mg Tablet) 4 mg PO DAILY [facility] Last Admin: 11/20/24 10:18 Dose: 4 mg Pregabalin (Pregabalin 200 Mg Capsule) 200 mg PO BID [facility] Last Admin: 11/20/24 10:18 Dose: 200 mg Sodium Chloride (0.9 % Sodium Chloride Flush 3 Ml Syringe) [facility] Last Admin: 11/20/24 16:26 Dose: 3 ml Home Medications ?Medication ?Instructions ?Recorded ?Confirmed ?Last Taken ?Type bupropion HCl 300 mg 24 hr tablet, 300 mg PO DAILY@0908/23/21 11/19/24 11/18/24 History extended release duloxetine 60 mg capsule,delayed 60 mg PO DAILY 08/23/21 11/19/24 11/18/24 History release levothyroxine 50 mcg tablet 50 mcg PO DAILY@59908/23/21 11/19/24 11/18/24 History methotrexate sodium 2.5 mg tablet 25 mg PO MO 08/23/21 11/19/24 11/11/24 History omeprazole 40 mg capsule,delayed 40 mg PO DAILY@62908/23/21 11/19/24 11/18/24 History release prednisone 1 mg tablet 4 mg PO DAILY 08/23/21 11/19/24 11/18/24 History pregabalin 200 mg capsule 200 mg PO BID 01/07/23 11/19/24 11/18/24 History folic acid 1 mg tablet 2 mg PO DAILY 07/11/19/24 11/18/24 History bupropion HCl 150 mg 24 hr tablet, 150 mg PO DAILY@0900 11/25/23 11/19/24 11/18/24 History extended release acetaminophen 325 mg tablet 650 mg PO Q4H PRN Moderate Pain 03/04/24 11/19/24 Unknown History (Tylenol) (Scale Score 5-6) ibuprofen 200 mg tablet 600 mg PO Q6H PRN Pain 05/03/24 11/19/24 Unknown History melatonin 10 mg tablet 10 mg PO BEDTIME PRN Sleep 05/03/24 11/19/24 Unknown History multivitamin 1 tab PO DAILY 05/03/24 11/19/24 11/18/24 History atenolol 25 mg tablet 50 mg PO DAILY 08/29/24 11/19/24 11/18/24 History fluticasone propionate 50 1 spray intranasal BID PRN Allergy 08/29/24 11/19/24 Unknown History mcg/actuation nasal Symptoms spray,suspension biotin 1 mg tablet 1 mg PO DAILY 10/07/24 11/19/24 11/18/24 History furosemide 40 mg tablet 40 mg PO DAILY 10/07/24 11/19/24 11/18/24 History Physical Exam Vital Signs: Vital Signs: Last Vital Signs Temp 98 F 11/20/24 15:35 Pulse 76 11/20/24 15:35 Resp 18 11/20/24 15:35 BP 140/63 H 11/20/24 15:35 Pulse Ox 94 11/20/24 15:35 O2 Del Method Room Air 11/20/24 15:35 BMI result Body Mass Index 34.7 Const: General: cooperative HEENT: Head: Yes normal to inspection Face and sinus: Yes normal facial exam Mouth: Normal oral and palatal mucosa present Teeth and gingiva: dentition normal Eyes: General: appearance normal, both eyes and all related structures Pupils: Equal, round and reactive pupils present Resp: Effort & Inspection: normal respiratory effort Cardio: Rate: regular rate Rhythm: regular rhythm GI: Palpation (GI): Soft to palpation and nontender : General: Yes no CVA tenderness Back/Spine/Pelvis: Back: no CVA tenderness Skin: General skin exam: no rashes or lesions noted Neuro: General: moves all extremities Cranial nerves: Yes Equal, round and reactive pupils present Extrem: General: Yes normal to inspection Psych: Appearance: grossly normal Results Labs 11/20/24 06:27 11/20/24 06:27 Labs: Short CBC 11/20/24 Range/Units 06:27 WBC 12.6 H (4.8-10.8) X10*3/uL Hgb 13.2 (12.0-16.0) g/dl Hct 40.6 (37.0-47.0) % Plt Count 98 L D (160-400) X10*3/uL BMP 11/20/24 06:27 Sodium 136 Potassium 4.9 Chloride 105 Carbon Dioxide 22 BUN 24 H Creatinine 1.22 Calcium 8.4 D Microbiology Microbiology Results: Microbiology 11/19/24 Unknown Urine clean catch - Clean Catch Midstream Urine Culture - Preliminary Gram negative altaf 11/19/24 06:16 Blood - Venous Blood Culture - Preliminary No growth after 24 hours. 11/19/24 05:28 Blood - Venous Blood Culture - Preliminary No growth after 24 hours. Assessment and Plan (1) Acute right flank pain: Status: Acute (2) Sepsis: Status: Acute Plan She possibly may have ESBL infection. Blood cultures so far negative but has urine culture gram negative rods. Continue Merem for now. Await cultures.
[2024-11-21] MEDS: oxyCODONE HCl Immed Release 5 MG TABLET 20 MG PO ×4 (01:32→19:51)
[2024-11-21 04:00] VITALS: BP 143/66; PULSE 76; RESP 16; TEMP 36.7; O2SAT 94
[2024-11-21 06:57] LABS: Anion Gap 11 (12-20); Blood Urea Nitrogen 23 mg/dL (9-16); Calcium 8.3 mg/dL (8.4-10.2); Carbon Dioxide 26 mmol/L (22-29); Chloride 104 mmol/L (96-108); Creatinine Clr Calc Pharmacy 50.7; Estimated Glomerular Filt Rate 43; Potassium 4.0 mmol/L (3.3-5.1); Sodium 137 mmol/L (135-145)
[2024-11-21 07:10] LABS: Hematocrit 35.3 % (37.0-47.0); Hemoglobin 11.5 g/dl (12.0-16.0); Mean Corpuscular HGB Conc 32.6 g/dl (31.0-35.0); Mean Corpuscular Hemoglobin 30.3 pg (27.0-33.0); Mean Corpuscular Volume 93.1 fL (80.0-98.0); NRBC Abs Auto 0.000 X10*3/uL (0.0-0.012); NRBC Pct Auto 0.0 /100WBC (0.0-0.2); Red Blood Count 3.79 X10*6/uL (4.20-5.50); White Blood Count 8.2 X10*3/uL (4.8-10.8)
[2024-11-21 07:15] LABS: Platelet Count 96 X10*3/uL (160-400)
[2024-11-21 07:54] VITALS: BP 142/84; PULSE 72; RESP 20; TEMP 36.2; O2SAT 96
[2024-11-21] MEDS: buPROPion HCl XL 300 MG TAB.ER.24H PO (08:55)
[2024-11-21] MEDS: 0.9 % Sodium Chloride Flush 3 ML SYRINGE IVFLUSH ×3 (08:55→19:55)
[2024-11-21 08:56] VITALS: BP 142/84; PULSE 72
[2024-11-21] MEDS: buPROPion HCl XL 150 MG TAB.ER.24H PO (08:56)
[2024-11-21 11:11] VITALS: BP 133/60; PULSE 70; RESP 20; TEMP 36.3; O2SAT 96
--- NOTE | 2024-11-21 11:14 | HO.PM.IMPN ---
Subjective Subjective Date of Service: 11/21/24 Interval History: body pain Physical Exam Vital Signs: Vital Signs: Last Vital Signs Temp 97.1 F 11/21/24 07:54 Pulse 72 11/21/24 08:56 Resp 20 11/21/24 07:54 BP 142/84 H 11/21/24 08:56 Pulse Ox 96 11/21/24 07:54 O2 Del Method Room Air 11/21/24 07:54 O2 Flow Rate 2 11/21/24 04:00 BMI result Body Mass Index 34.7 Const: General: cooperative HEENT: Head: Yes normal to inspection Face and sinus: Yes normal facial exam Mouth: Normal oral and palatal mucosa present Teeth and gingiva: dentition normal Eyes: General: appearance normal, both eyes and all related structures Pupils: Equal, round and reactive pupils present Resp: Effort & Inspection: normal respiratory effort Cardio: Rate: regular rate Rhythm: regular rhythm GI: Palpation (GI): Soft to palpation and nontender : General: Yes no CVA tenderness Back/Spine/Pelvis: Back: no CVA tenderness Skin: General skin exam: no rashes or lesions noted Neuro: General: moves all extremities Cranial nerves: Yes Equal, round and reactive pupils present Extrem: General: Yes normal to inspection Psych: Appearance: grossly normal Objective Data Active Medications Acetaminophen (Acetaminophen 325 Mg Tablet) 650 mg PO Q6H PRN PRN Reason: Pain, Mild 1-3,fever,headache Last Admin: 11/20/24 19:52 Dose: 650 mg Documented By: ANGELO Ascorbic Acid (Ascorbic Acid 500 Mg Tablet) 1,000 mg PO DAILY [facility] Last Admin: 11/21/24 08:56 Dose: 1,000 mg Documented By: BRAEDEN Atenolol (Atenolol 50 Mg Tablet) 50 mg PO DAILY [facility]; Protocol Last Admin: 11/21/24 08:56 Dose: 50 mg Documented By: BRAEDEN Bupropion HCl (Bupropion Hcl Xl 150 Mg Tab.Er.24h) 150 mg PO DAILY@0900 [facility] Last Admin: 11/21/24 08:56 Dose: 150 mg Documented By: BRAEDEN Bupropion HCl (Bupropion Hcl Xl 300 Mg Tab.Er.24h) 300 mg PO DAILY@0900 [facility] Last Admin: 11/21/24 08:55 Dose: 300 mg Documented By: BRAEDEN Calcium Carbonate (Calcium Carbonate 750 Mg Tab.Chew) 750 mg PO Q4H PRN PRN Reason: Heartburn Doxazosin Mesylate (Doxazosin Mesylate 2 Mg Tablet) 2 mg PO BEDTIME [facility]; Protocol Last Admin: 11/20/24 21:30 Dose: 2 mg Documented By: RENÉE Duloxetine HCl (Duloxetine Hcl 60 Mg Capsule.) 60 mg PO DAILY [facility] Last Admin: 11/21/24 08:55 Dose: 60 mg Documented By: BRAEDEN Enoxaparin Sodium (Enoxaparin Sodium 40 Mg/0.4 Ml Syringe) 40 mg SUBCUT Q24H [facility] Last Admin: 11/21/24 08:56 Dose: 40 mg Documented By: BRAEDEN Folic Acid (Folic Acid 1 Mg Tablet) 2 mg PO DAILY [facility] Last Admin: 11/21/24 08:55 Dose: 2 mg Documented By: BRAEDEN Furosemide (Furosemide 40 Mg Tablet) 40 mg PO DAILY [facility]; Protocol Last Admin: 11/21/24 08:56 Dose: 40 mg Documented By: BRAEDEN Levothyroxine Sodium (Levothyroxine Sodium 50 Mcg Tablet) 50 mcg PO DAILY@0600 [facility] Last Admin: 11/21/24 05:30 Dose: 50 mcg Documented By: ANGELO Magnesium Hydroxide (Milk Of Magnesia 30 Ml Oral.Susp) 30 ml PO DAILY PRN PRN Reason: Constipation Melatonin (Melatonin 3 Mg Tablet) 6 mg PO BEDTIME PRN PRN Reason: Insomnia Meropenem (Meropenem 1 Gm Vial) 1 gm IVPUSH Q8H [facility] Last Admin: 11/21/24 04:46 Dose: 1 gm Documented By: ANGELO Multivitamins/Vitamin C (Multivitamin Tablet) 1 tab PO DAILY [facility] Last Admin: 11/21/24 08:55 Dose: 1 tab Documented By: BRAEDEN Omeprazole (Omeprazole 40 Mg Capsule.) 40 mg PO DAILY@0630 [facility] Last Admin: 11/21/24 05:29 Dose: 40 mg Documented By: ANGELO Ondansetron HCl (Ondansetron Hcl 4 Mg/2 Ml Vial) 4 mg IVPUSH Q6H PRN PRN Reason: Nausea Last Admin: 11/19/24 09:47 Dose: 4 mg Documented By: SUDHIR Oxycodone HCl (Oxycodone Hcl Immed Release 5 Mg Tablet) 20 mg PO Q4H PRN PRN Reason: pain (scale score 7-10) Last Admin: 11/21/24 08:55 Dose: 20 mg Documented By: BRAEDEN Prednisone (Prednisone 1 Mg Tablet) 4 mg PO DAILY [facility] Last Admin: 11/21/24 08:56 Dose: 4 mg Documented By: BRAEDEN Pregabalin (Pregabalin 200 Mg Capsule) 200 mg PO BID [facility] Last Admin: 11/21/24 08:56 Dose: 200 mg Documented By: BRAEDEN Sodium Chloride (0.9 % Sodium Chloride Flush 3 Ml Syringe) 3 ml IVFLUSH QSHIFT [facility] Last Admin: 11/21/24 08:55 Dose: 3 ml Documented By: BRAEDEN Labs 11/21/24 06:03 11/21/24 06:03 Labs: Laboratory Results - last 24 hr 11/21/24 06:03 MCV 93.1 MCH 30.3 MCHC 32.6 RDW 16.2 H Plt Count 96 L MPV 10.9 Absolute Nucleated RBC 0.000 Nucleated RBC % (auto) 0.0 Anion Gap 11 L Estim Creat Clear Calc 50.7 Estimated GFR 43 Random Glucose 95 Calcium 8.3 L Microbiology Microbiology Results: Microbiology 11/19/24 06:16 Blood Culture - Preliminary Blood - Venous No growth after 48 hours. 11/19/24 Unknown Urine Culture - Final Urine clean catch - Clean Catch Midstream Escherichia coli 11/19/24 05:28 Blood Culture - Preliminary Blood - Venous No growth after 48 hours. Assessment and Plan (1) Acute right flank pain: Status: Acute Plan 74F PMH ESBL ecoli with bacteremia 06/2024, ESBL uti 08/2024, rheumatoid arthritis on methotrexate and chronic prednisone, hypertension, chronic lymphedema, peripheral vascular disease, COPD, BLADIMIR occlusion, presented with right flank pain Sepsis-not severe and acute metabolic encephalopathy due to Urinary tract infection due to esbl ecoli IV meropenem, ID appreciated - will do 2 weeks ertapenem end 12/02/24 Acute Thrombocytopenia due to medications not sepsis Uncontrolled hypertension Partially due to pain, pain control, continue atenolol, doxazosin Now improved Chronic opiate dependence Continue oxycodone Rheumatoid arthritis will do short course of stress dose steroids then decrease to baseline 4mg prednisone On methotrexate as outpatient COPD Inhalers p.r.n. Hypothyroid Levothyroxine Mood disorder Bupropion Cymbalta DVT prophylaxis-Lovenox Full Code reason for continued hospitalization:dispo planning Quality Stroke Does the patient have a stroke diagnosis?: No VTE Prior VTE?: No VTE Risk Level:: Medical - moderate - high VTE Device Contraindication: Treatment Not Indicated VTE Drug Contraindication: N/A - Med Ordered
--- NOTE | 2024-11-21 11:19 | P.DS_ITS ---
DS: Providers Provider Date of Service: 11/22/24 Date of admission: 11/19/24 08:17 Date of discharge: 11/22/24 Primary care physician: Namita Acosta NP Consults: 11/19/24 09:16 Consult to Infectious Diseases Routine Consulting Provider: [facility] Reason for consultation: esbl uti, recurrent DS: Diagnosis Discharge Diagnosis (1) Acute right flank pain: Status: Acute DS: Summary Hospital Course Hospital Course: from initial hpi: 74F PMH ESBL ecoli with bacteremia 06/2024, ESBL uti 08/2024, rheumatoid arthritis on methotrexate and chronic prednisone, hypertension, chronic lymphedema, peripheral vascular disease, COPD, BLADIMIR occlusion, presented with right flank pain. Patient states her pain began 1 day prior to presentation right-sided similar to previous urinary tract infections, which usually do not present with dysuria. She is not having any dysuria at this time either. Denies any fever or chills. But just feels off. In ED note to have hypertension with a systolic blood pressure around 200, positive UA. CT abdomen and pelvis unremarkable. Given dose of meropenem. hospital course: Patient was admitted for sepsis and acute metabolic encephalopathy due to urinary tract infection due to ESBL E coli. She was treated with IV meropenem and sepsis resolved. Blood cultures were negative. Patient had midline placed and will complete treatment with ertapenem on 12/02/2024. For uncontrolled hypertension partially due to pain improved with pain control and was continued on atenolol and doxazosin. For chronic opiate dependence was continued on oxycodone. For rheumatoid arthritis was started on short course of stress dose steroids, we will continue for 2 more days on discharge and then resume baseline 4 mg daily prednisone. Methotrexate held inpatient can resume as outpatient. For COPD inhalers as needed. For hypothyroid was continued on levothyroxine. For mood disorder was continued bupropion Cymbalta. Patient is feeling better and will be discharged home. Time Attestation Discharge Coordination Time (in mins): 35 Quality: Safe Use of Opioids Does Pt have an Active Cancer Diagnosis on the Problem List?: No Quality: Stroke Does the patient have a stroke diagnosis?: No Physical Exam Vital Signs: Vital Signs: Last Vital Signs Temp 97.4 F 11/21/24 11:11 Pulse 70 11/21/24 11:11 Resp 20 11/21/24 11:11 BP 133/60 11/21/24 11:11 Pulse Ox 96 11/21/24 11:11 O2 Del Method Room Air 11/21/24 11:11 O2 Flow Rate 2 11/21/24 04:00 BMI result Body Mass Index 34.7 Const: General: cooperative HEENT: Head: Yes normal to inspection Face and sinus: Yes normal facial exam Mouth: Normal oral and palatal mucosa present Teeth and gingiva: dentition normal Eyes: General: appearance normal, both eyes and all related structures Pupils: Equal, round and reactive pupils present Resp: Effort & Inspection: normal respiratory effort Cardio: Rate: regular rate Rhythm: regular rhythm GI: Palpation (GI): Soft to palpation and nontender : General: Yes no CVA tenderness Back/Spine/Pelvis: Back: no CVA tenderness Skin: General skin exam: no rashes or lesions noted Neuro: General: moves all extremities Cranial nerves: Yes Equal, round and reactive pupils present Extrem: General: Yes normal to inspection Psych: Appearance: grossly normal DS: Data Data Completed and Pending Completed studies during hospitalization [Text1]: Procedures Insertion of Infusion Device into Right Brachial Vein, Percutaneous Approach (08/29/24) Insertion of Infusion Device into Right Cephalic Vein, Percutaneous Approach ( 10/13/23) Labs on day of discharge: Laboratory Results - last 24 hr 11/21/24 06:03 WBC 8.2 RBC 3.79 L Hgb 11.5 L Hct 35.3 L MCV 93.1 MCH 30.3 MCHC 32.6 RDW 16.2 H Plt Count 96 L MPV 10.9 Absolute Nucleated RBC 0.000 Nucleated RBC % (auto) 0.0 Sodium 137 Potassium 4.0 Chloride 104 Carbon Dioxide 26 Anion Gap 11 L BUN 23 H Creatinine 1.22 Estim Creat Clear Calc 50.7 Estimated GFR 43 Random Glucose 95 Calcium 8.3 L Preliminary micro results at discharge 11/19/24 06:16 Blood Culture - Preliminary Blood - Venous No growth after 48 hours. 11/19/24 05:28 Blood Culture - Preliminary Blood - Venous No growth after 48 hours. Discharge Plan Discharge Anticipated Discharge Date/Time: 11/21/24 11:15 Patient Disposition: Home Health Service Discharge Diagnosis: sepsis, uti Referrals: Physician,Unknown J [Physician, Medical] - 1 Week Discharge Medications: New prednisone 50 mg tablet 50 mg PO DAILY Qty: 2 0RF ertapenem 1 gram recon soln 1 g IV DAILY 12 Days Rx Instructions: end 12/02/24 Continued omeprazole 40 mg capsule,delayed release(DR/EC) 40 mg PO DAILY@0630 methotrexate sodium 2.5 mg tablet 25 mg PO MO levothyroxine 50 mcg tablet 50 mcg PO DAILY@0600 bupropion HCl 300 mg tablet extended release 24 hr 300 mg PO DAILY@0900 duloxetine 60 mg capsule,delayed release(DR/EC) 60 mg PO DAILY ondansetron 4 mg tablet,disintegrating 4 mg PO Q8H PRN (Reason: nausea and vomiting) Qty: 10 0RF folic acid 1 mg tablet 2 mg PO DAILY doxazosin 2 mg Tablet 2 mg PO BEDTIME Qty: 30 0RF Protocol: Hold for SBP< HOLD for SBP < : 90 bupropion HCl 150 mg tablet extended release 24 hr 150 mg PO DAILY@0900 multivitamin Tablet 1 tab PO DAILY ibuprofen 200 mg Tablet 600 mg PO Q6H PRN (Reason: Pain) melatonin 10 mg Tablet 10 mg PO BEDTIME PRN (Reason: Sleep) pregabalin 200 mg capsule 200 mg PO BID oxycodone 20 mg tablet 20 mg PO Q4H PRN (Reason: pain (scale score 7-10)) Qty: 20 0RF acetaminophen [Tylenol] 325 mg Tablet 650 mg PO Q4H PRN (Reason: Moderate Pain (Scale Score 5-6)) fluticasone propionate 50 mcg/actuation [place],Suspension 1 spray INTRANASAL BID PRN (Reason: Allergy Symptoms) Rx Instructions: administer into each nostril atenolol 25 mg tablet 50 mg PO DAILY Protocol: Hold for SBP/HR < HOLD for SBP < : 90 HOLD for HR < : 60 furosemide 40 mg tablet 40 mg PO DAILY biotin 1 mg Tablet 1 mg PO DAILY methenamine hippurate 1 gram tablet 1 g PO DAILY 90 Days Qty: 90 0RF ascorbic acid (vitamin C) 1,000 mg capsule 1,000 mg PO DAILY 90 Days Qty: 90 1RF Held prednisone 1 mg tablet 4 mg PO DAILY Hold Instructions: Resume on 11/24/24. Discharge Orders: Discharge Order (Routine); Ordered 11/22/24 Ordered By: Gonzales Moreno Diet: Advance to usual diet Activity on Discharge: As tolerated Stand Alone Forms: Patient Portal Discharge page Print Language: Belarusian Care Plan Goals: Recovery Health Concerns: Recurrent ESBL UTI with sepsis Plan of Treatment: Complete ertapenem course 12/02/2024, continue prophylactic medications, 2 days stress steroid dosing then resume maintenance Assessment: See above
--- NOTE | 2024-11-21 16:09 | MHC.CM.PN ---
Pt not medically cleared, she will need 2 weeks IV ertapenem, midline placement pending this afternoon. Pt likely to discharge home tomorrow with resumption of [facility] services and [facility] home infusion services.
--- NOTE | 2024-11-21 17:34 | HO.MIDLINE ---
Midline Insertion MIDLINE INSERTION Diagnosis: ESBI UTI Indication: Custodial Antibx Pertinent Labs: Reviewed Technique: Using sterile technique including cap and mask, glove and drape, the Right arm was prepped and draped in the usual sterile fashion of full barrier technique with CHG. Using ultrasound guidance, Right Basilic vein access was obtained by Juju Alvarado Rn but unable to advanced the wire. Dr Martins assistance with access. 4Fr Powermidline NON-PASV was positioned. The procedure was performed in Rm 272. Ultrasound was used to document vein patency and for needle entry. A formal ultrasound picture was recorded. Dr Martins ordered a stat xray for placement--due to ease when flushed but no blood return. Per Dr Martins after reviewing the xray, he released the line for use and it is currently dressed with a StatLock, Tegaderm, and CHG disc. Verification has been performed line is patency but no blood return--okay by Dr Martins. Arm Circumference: 34cm Equipment: Bard Powermidline catheter Catheter Type: 4Fr Powermidline NON-PASV Lot #: [id number]
[2024-11-21 19:35] VITALS: BP 149/76; PULSE 71; RESP 16; TEMP 36.3; O2SAT 94
[2024-11-21] MEDS: 0.9 % Sodium Chloride Flush 10 ML SYRINGE 5 ML IVFLUSH (19:53)
[2024-11-22] VITALS: BP 155/72; PULSE 70; RESP 16; TEMP 36.1; O2SAT 97
[2024-11-22] MEDS: oxyCODONE HCl Immed Release 5 MG TABLET 20 MG PO ×4 (00:40→16:04)
[2024-11-22 03:29] VITALS: BP 150/71; PULSE 70; RESP 16; TEMP 36.4; O2SAT 95
[2024-11-22 07:10] VITALS: BP 160/75; PULSE 73; RESP 18; TEMP 36.9; O2SAT 96
--- NOTE | 2024-11-22 08:41 | HO.PM.IMPN ---
Subjective Subjective Date of Service: 11/22/24 Interval History: body pain improved Physical Exam Vital Signs: Vital Signs: Last Vital Signs Temp 98.4 F 11/22/24 07:10 Pulse 73 11/22/24 07:10 Resp 18 11/22/24 07:10 BP 160/75 H 11/22/24 07:10 Pulse Ox 96 11/22/24 07:10 O2 Del Method Room Air 11/22/24 07:10 O2 Flow Rate 2 11/21/24 04:00 BMI result Body Mass Index 34.7 Const: General: cooperative HEENT: Head: Yes normal to inspection Face and sinus: Yes normal facial exam Mouth: Normal oral and palatal mucosa present Teeth and gingiva: dentition normal Eyes: General: appearance normal, both eyes and all related structures Pupils: Equal, round and reactive pupils present Resp: Effort & Inspection: normal respiratory effort Cardio: Rate: regular rate Rhythm: regular rhythm GI: Palpation (GI): Soft to palpation and nontender : General: Yes no CVA tenderness Back/Spine/Pelvis: Back: no CVA tenderness Skin: General skin exam: no rashes or lesions noted Neuro: General: moves all extremities Cranial nerves: Yes Equal, round and reactive pupils present Extrem: General: Yes normal to inspection Psych: Appearance: grossly normal Objective Data Active Medications Acetaminophen (Acetaminophen 325 Mg Tablet) 650 mg PO Q6H PRN PRN Reason: Pain, Mild 1-3,fever,headache Last Admin: 11/20/24 19:52 Dose: 650 mg Documented By: ANGELO Ascorbic Acid (Ascorbic Acid 500 Mg Tablet) 1,000 mg PO DAILY [facility] Last Admin: 11/21/24 08:56 Dose: 1,000 mg Documented By: BRAEDEN Atenolol (Atenolol 50 Mg Tablet) 50 mg PO DAILY [facility]; Protocol Last Admin: 11/21/24 08:56 Dose: 50 mg Documented By: BRAEDEN Bupropion HCl (Bupropion Hcl Xl 150 Mg Tab.Er.24h) 150 mg PO DAILY@0900 [facility] Last Admin: 11/21/24 08:56 Dose: 150 mg Documented By: BRAEDEN Bupropion HCl (Bupropion Hcl Xl 300 Mg Tab.Er.24h) 300 mg PO DAILY@0900 [facility] Last Admin: 11/21/24 08:55 Dose: 300 mg Documented By: BRAEDEN Calcium Carbonate (Calcium Carbonate 750 Mg Tab.Chew) 750 mg PO Q4H PRN PRN Reason: Heartburn Doxazosin Mesylate (Doxazosin Mesylate 2 Mg Tablet) 2 mg PO BEDTIME [facility]; Protocol Last Admin: 11/21/24 19:52 Dose: 2 mg Documented By: LEO Duloxetine HCl (Duloxetine Hcl 60 Mg Capsule.) 60 mg PO DAILY [facility] Last Admin: 11/21/24 08:55 Dose: 60 mg Documented By: BRAEDEN Enoxaparin Sodium (Enoxaparin Sodium 40 Mg/0.4 Ml Syringe) 40 mg SUBCUT Q24H [facility] Last Admin: 11/21/24 08:56 Dose: 40 mg Documented By: RBAEDEN Folic Acid (Folic Acid 1 Mg Tablet) 2 mg PO DAILY [facility] Last Admin: 11/21/24 08:55 Dose: 2 mg Documented By: BRAEDEN Furosemide (Furosemide 40 Mg Tablet) 40 mg PO DAILY [facility]; Protocol Last Admin: 11/21/24 08:56 Dose: 40 mg Documented By: BRAEDEN Levothyroxine Sodium (Levothyroxine Sodium 50 Mcg Tablet) 50 mcg PO DAILY@0600 [facility] Last Admin: 11/22/24 05:33 Dose: 50 mcg Documented By: LEO Magnesium Hydroxide (Milk Of Magnesia 30 Ml Oral.Susp) 30 ml PO DAILY PRN PRN Reason: Constipation Melatonin (Melatonin 3 Mg Tablet) 6 mg PO BEDTIME PRN PRN Reason: Insomnia Last Admin: 11/21/24 19:53 Dose: 6 mg Documented By: LEO Meropenem (Meropenem 1 Gm Vial) 1 gm IVPUSH Q8H [facility] Last Admin: 11/22/24 03:41 Dose: 1 gm Documented By: LEO Multivitamins/Vitamin C (Multivitamin Tablet) 1 tab PO DAILY [facility] Last Admin: 11/21/24 08:55 Dose: 1 tab Documented By: BRAEDEN Omeprazole (Omeprazole 40 Mg Capsule.) 40 mg PO DAILY@0630 [facility] Last Admin: 11/22/24 05:33 Dose: 40 mg Documented By: LEO Ondansetron HCl (Ondansetron Hcl 4 Mg/2 Ml Vial) 4 mg IVPUSH Q6H PRN PRN Reason: Nausea Last Admin: 11/19/24 09:47 Dose: 4 mg Documented By: SUDHIR Oxycodone HCl (Oxycodone Hcl Immed Release 5 Mg Tablet) 20 mg PO Q4H PRN PRN Reason: pain (scale score 7-10) Last Admin: 11/22/24 05:33 Dose: 20 mg Documented By: LEO Prednisone (Prednisone 10 Mg Tablet) 50 mg PO DAILY [facility] Pregabalin (Pregabalin 200 Mg Capsule) 200 mg PO BID [facility] Last Admin: 11/21/24 19:51 Dose: 200 mg Documented By: LEO Sodium Chloride (0.9 % Sodium Chloride Flush 3 Ml Syringe) [facility] Last Admin: 11/21/24 19:55 Dose: 3 ml Documented By: LEO Sodium Chloride (0.9 % Sodium Chloride Flush 10 Ml Syringe) [facility] Last Admin: 11/21/24 19:53 Dose: 5 ml Documented By: LEO Labs 11/21/24 06:03 11/21/24 06:03 Microbiology Microbiology Results: Microbiology 11/19/24 06:16 Blood Culture - Preliminary Blood - Venous No growth after 48 hours. 11/19/24 Unknown Urine Culture - Final Urine clean catch - Clean Catch Midstream Escherichia coli 11/19/24 05:28 Blood Culture - Preliminary Blood - Venous No growth after 48 hours. Assessment and Plan (1) Acute right flank pain: Status: Acute Plan 74F PMH ESBL ecoli with bacteremia 06/2024, ESBL uti 08/2024, rheumatoid arthritis on methotrexate and chronic prednisone, hypertension, chronic lymphedema, peripheral vascular disease, COPD, BLADIMIR occlusion, presented with right flank pain Sepsis-not severe and acute metabolic encephalopathy due to Urinary tract infection due to esbl ecoli IV meropenem, ID appreciated - will do 2 weeks ertapenem end 12/02/24 Acute Thrombocytopenia due to medications not sepsis midline placed 11/21/24 but will require adjustment Uncontrolled hypertension Partially due to pain, pain control, continue atenolol, doxazosin Now improved Chronic opiate dependence Continue oxycodone Rheumatoid arthritis wt acute flare will do short course of stress dose steroids then decrease to baseline 4mg prednisone On methotrexate as outpatient COPD Inhalers p.r.n. Hypothyroid Levothyroxine Mood disorder Bupropion Cymbalta DVT prophylaxis-Lovenox Full Code reason for continued hospitalization:dispo planning Quality Stroke Does the patient have a stroke diagnosis?: No VTE Prior VTE?: No VTE Risk Level:: Medical - moderate - high VTE Device Contraindication: Treatment Not Indicated VTE Drug Contraindication: N/A - Med Ordered
[2024-11-22 09:42] VITALS: BP 160/75; PULSE 73
[2024-11-22] MEDS: buPROPion HCl XL 300 MG TAB.ER.24H PO (09:42)
[2024-11-22] MEDS: 0.9 % Sodium Chloride Flush 3 ML SYRINGE IVFLUSH (09:42)
[2024-11-22] MEDS: 0.9 % Sodium Chloride Flush 10 ML SYRINGE 5 ML IVFLUSH (09:42)
[2024-11-22] MEDS: buPROPion HCl XL 150 MG TAB.ER.24H PO (09:42)
[2024-11-22 09:43] VITALS: BP 160/75
--- NOTE | 2024-11-22 12:58 | MHC.CM.PN ---
[facility] RN BEDSIDE THIS MORNING FOR TEACH, SHE SAYS PT DID WELL AND THEY WILL DELIVER MEDS/SUPPLIES THIS EVENING PT REPORTS [facility] WILL BE IN EVERY OTHER DAY AND HER DAUGHTER WILL ADMINISTER MEDS ON THE OTHER DAYS PT WILL DC HOME WITH RESUMPTION OF DIGESTION OPERATOR AND [facility] BLS TRANSPORT BOOKED FOR 1600 HOURS WITH [facility]
--- NOTE | 2024-11-23 08:42 | W.MHC.F2F ---
Service Date Service Date: 11/23/24 Encounter Date of encounter: 11/22/24 Reasons for Services Signs and symptoms assessed: weakness Reason for residential: medication management, medication treatment and teach disease management Homebound: Leaving the home is medically contraindicated at this time without the asist of a device and/or another person due th the listed conditions above and below. Reason homebound: unsteady gait / fall risk Certification: Based on the above findings, I certify that this patient is confined to the home and needs intermittent residential care, physical therapy and/or speech therapy, or continues to need occupational therapy. The patient is under my care, and I have initiated the establishment of the plan of care. The patient will be followed by a physician who will periodically review the plan of care. Time Spent With Patient Time: Total time managing care of this patient today ____ minutes.
== END 2024-11-22 15:55 | disposition home health service (06) | DRG 871 ==
LOC: HO.ED 06:50 → HO.EDOVER 08:31 → HO.S3 09:24 → HO.EDOVER 10:22 → HO.IMC 10:49
PROVIDERS: Admitting Provider Internal Medicine; Emergency Provider Emergency Medicine; PCP Nurse Practitioner Adult Health; Visit Provider Internal Medicine
DX: A41.9 Sepsis, unspecified organism (principal); G93.41 Metabolic encephalopathy; N39.0 Urinary tract infection, site not specified; I50.32 Chronic diastolic (congestive) heart failure; F11.20 Opioid dependence, uncomplicated; Z16.12 Extended spectrum beta lactamase (ESBL) resistance; I11.0 Hypertensive heart disease with heart failure; M06.9 Rheumatoid arthritis, unspecified; B96.20 Unspecified Escherichia coli [E. coli] as the cause of diseases classified elsewhere; E03.9 Hypothyroidism, unspecified; J44.9 Chronic obstructive pulmonary disease, unspecified; F39 Unspecified mood [affective] disorder; Z87.440 Personal history of urinary (tract) infections; Z79.631 Long term (current) use of antimetabolite agent; Z79.890 Hormone replacement therapy; Z79.899 Other long term (current) drug therapy
CPT/HCPCS: 36410; 36415; 71045; 74176; 80048; 81001; 83605; 83690; 83735; 85025; 85027; 87040; 87086; 87088; 87186; 99285; C1751; J0131; J1171; J1200; J1335; J1630; J1650; J2185; J2270; J2405; J2919; J7120

== ENCOUNTER → 2024-11-19 06:38 | Outpatient (BNV) | payer MEDICARE, MEDICAID, SELFPAY | PROVIDERS: Admitting Provider Internal Medicine; Emergency Provider Emergency Medicine; Visit Provider Radiology Diagnostic Radiology | DX: K80.20 Calculus of gallbladder without cholecystitis without obstruction (principal) | CPT/HCPCS: 74176 ==

== ENCOUNTER 2024-11-19 08:17 | Outpatient (BNV) | payer MEDICARE, MEDICAID, SELFPAY | END 2024-11-21 16:06 | PROVIDERS: Admitting Provider Internal Medicine; Emergency Provider Emergency Medicine; PCP Nurse Practitioner Adult Health; Visit Provider Radiology Diagnostic Radiology | DX: R10.11 Right upper quadrant pain (principal) | CPT/HCPCS: 71045 ==

== ENCOUNTER → 2024-11-19 08:17 | Outpatient (BNV) | payer MEDICARE, MEDICAID, SELFPAY | PROVIDERS: Admitting Provider Internal Medicine; Emergency Provider Emergency Medicine; Visit Provider Internal Medicine | DX: R10.9 Unspecified abdominal pain (principal); N39.0 Urinary tract infection, site not specified | CPT/HCPCS: 99223; 99233 ==

== ENCOUNTER → 2024-11-19 08:17 | Outpatient (BNV) | payer MEDICARE, MEDICAID, SELFPAY | PROVIDERS: Admitting Provider Internal Medicine; Emergency Provider Emergency Medicine; PCP Nurse Practitioner Adult Health; Visit Provider Internal Medicine | DX: A41.9 Sepsis, unspecified organism (principal); R10.9 Unspecified abdominal pain | CPT/HCPCS: 99222 ==

== ENCOUNTER 2024-11-20 08:52 | Outpatient (REF) | payer MEDICARE, MEDICAID, SELFPAY ==
--- OUTSIDE RECORDS SUMMARY | 2024-11-21 09:40 | XMS_ITS | Encounter Summary ---
Author Organization [facility] Address [address] [place] [address] Care Team Providers Care Mattress Specialist Name Role Phone Travis Holbrook MD Primary Care Provider [phone] Encounter Details Date Type Department Care Team (Late st Contact Info) Description 03/08/2024 Lab Requisition [facility] - Main Lab [address] [facility] [place] [address] Lavonne Irvin MD [address] [place], [place] [id number] Essential (primary) hypertension; Acute kidney failure, unspecified [...] MD LAB BLOOD ORDERABLES Final Resul t [facility] [address] [place] [address], * (ABNORMAL) Complete blood count (03/11/2024 7:17 AM EST) [facility] Signature WBC 4.7(L) 4.8 - 10.8 K/mcL LAB HEMETOLOGY METHOD 03/11/2024 11:48 AM EST [facility] LAB RBC 3.70(L) 3.80 - [...] LAB HEMETOLOGY METHOD 03/11/2024 11:48 AM EST [facility] LAB MCH 30.4 27.0 - 32.0 pcg LAB HEMETOLOGY METHOD 03/11/2024 11:48 AM [facility] LAB MCHC 31.3(L) 32.0 - 37.0 g/dL LAB HEMETOLOGY METHOD 03/11/2024 11:48 AM [facility] LAB RDW 15.5(H) 11.0 - 15.0 % LAB HEMETOLOGY METHOD 03/11/2024 11:48 AM [facility] LAB Platelets 166 130 - 400 K/mcL LAB HEMETOLOGY METHOD 03/11/2024 11:48 AM [facility] LAB MPV 10.6 7.0 - 11.0 FL LAB HEMETOLOGY METHOD 03/11/2024 11:48 AM [facility] LAB NRBC 0.0 <1.0 % LAB HEMETOLOGY METHOD 03/11/2024 11:48 AM EST [facility] LAB NRBC Absolute 0.00 <0.10 K/mcL LAB HEMETOLOGY METHOD 03/11/2024 11:48 AM EST [facility] LAB Blood Venous blood specimen / Unknown Venipuncture / Unknown 03/11/2024 7:17 AM EST 03/11/2024 11:24 AM EST us Lavonne Irvin MD LAB BLOOD ORDERABLES Final Resul t [facility] [address] [place] [address], documented in this encounter Visit Diagnoses Diagnosis Essential (primary) hypertension Unspecified essential hypertension Acute kidney failure, unspecified (CMS/HCC V24) Acute kidney failure, unspecified documented in this encounter Care Teams Mattress Specialist Relationship Specialty Start Date End Date Travis Holbrook MD [address] [place] [address], [phone] PCP - General Family Medicine 02/28/24 documented as of this encounter
--- OUTSIDE RECORDS SUMMARY | 2024-11-21 09:40 | XMS_ITS | Encounter Summary ---
Author Organization [facility] Address [address] [place] [address] Care Team Providers Care Risk Mgr Name Role Phone Travis Holbrook MD Primary Care Provider [phone] Encounter Details Date Type Department Care Team (Late st Contact Info) Description 03/16/2024 Lab Requisition [facility] - Main Lab [address] [facility] [place] [address] Lavonne Irvin MD [address] [place], [place] [phone] Essential (primary) hypertension; Acute kidney failure, unspecified [...] mmol/L LAB CHEMISTRY METHOD 03/18/2024 1:26 PM [facility] LAB Potassium 4.1 3.5 - 5.5 mmol/L LAB CHEMISTRY METHOD 03/18/2024 1:26 PM [facility] Chloride 104 96 - 110 mmol/L LAB CHEMISTRY METHOD 03/18/2024 1:26 PM [facility] CO2 31 21 - 32 mmol/L LAB CHEMISTRY METHOD 03/18/2024 1:26 PM [facility] Anion Gap 2(L) 3 - 11 LAB CHEMISTRY METHOD 03/18/2024 1:26 PM [facility] Glucose 75 70 - 100 mg/dL LAB CHEMISTRY METHOD 03/18/2024 1:26 PM [facility] BUN 23 5 - 25 mg/dL LAB CHEMISTRY METHOD 03/18/2024 1:26 PM [facility] Creatinine 1.30(H) 0.50 - 1.10 mg/dL LAB CHEMISTRY METHOD 03/18/2024 1:26 PM [facility] LAB eGFR 44(L) >=60 mL/min/1. 73m2 LAB CHEMISTRY METHOD 03/18/2024 1:26 PM [facility] Comment:Calculation based on the Chronic Kidney Disease Epidemiology Collaboration (CKD-EPI) equation refit without adjustment for race. BUN/Creatinine Ratio 17.7 LAB CHEMISTRY METHOD 03/18/2024 1:26 PM [facility] Calcium 8.9 8.5 - 10.5 mg/dL LAB CHEMISTRY METHOD 03/18/2024 1:26 PM [facility] Blood Venous blood specimen / Unknown Venipuncture / Unknown 03/18/2024 7:09 AM EST 03/18/2024 11:39 AM EST us Lavonne Irvin MD LAB BLOOD ORDERABLES Final Resul t [facility] [address] [place] [address], * (ABNORMAL) Complete blood count (03/18/2024 7:09 AM EST) [facility] WBC 6.3 4.8 - 10.8 K/mcL LAB HEMETOLOGY METHOD 03/18/2024 11:57 AM EST [facility] RBC 3.90 3.80 - 4.80 M/mcL LAB HEMETOLOGY METHOD 03/18/2024 11:57 AM EST [facility] Hemoglobin 11.6 11.5 - 16.0 g/dL LAB HEMETOLOGY METHOD 03/18/2024 11:57 AM [facility] LAB Hematocrit 37.4 35.0 - 47.0 % LAB HEMETOLOGY METHOD 03/18/2024 11:57 AM [facility] LAB MCV 97.1 79.0 - 98.0 FL LAB HEMETOLOGY METHOD 03/18/2024 11:57 AM [facility] LAB MCH 30.1 27.0 - 32.0 pcg LAB HEMETOLOGY METHOD 03/18/2024 11:57 AM [facility] LAB MCHC 31.0(L) 32.0 - 37.0 g/dL LAB HEMETOLOGY METHOD 03/18/2024 11:57 AM EST [facility] RDW 15.9(H) 11.0 - 15.0 % LAB HEMETOLOGY METHOD 03/18/2024 11:57 AM [facility] LAB Platelets 148 130 - 400 K/mcL LAB HEMETOLOGY METHOD 03/18/2024 11:57 AM EST [facility] MPV 11.0 7.0 - 11.0 FL LAB HEMETOLOGY METHOD 03/18/2024 11:57 AM EST [facility] NRBC 0.0 <1.0 % LAB HEMETOLOGY METHOD 03/18/2024 11:57 AM EST [facility] NRBC Absolute 0.00 <0.10 K/mcL LAB HEMETOLOGY METHOD 03/18/2024 11:57 AM EST [facility] Blood Venous blood specimen / Unknown Venipuncture / Unknown 03/18/2024 7:09 AM EST 03/18/2024 11:39 AM EST us Lavonne Irvin MD LAB BLOOD ORDERABLES Final Resul t [facility] [address] [place] [address], documented in this encounter Visit Diagnoses Diagnosis Essential (primary) hypertension Unspecified essential hypertension Acute kidney failure, unspecified (CMS/HCC V24) Acute kidney failure, unspecified documented in this encounter Care Teams Risk Mgr Relationship Specialty Start Date End Date Travis Holbrook MD [address] [place] [address], [phone] PCP - General Family Medicine 02/28/24 documented as of this encounter
--- OUTSIDE RECORDS SUMMARY | 2024-11-21 09:40 | XMS_ITS | Encounter Summary ---
Author Organization [facility] Address [address] [place] [address] Care Team Providers Care Sustainable Communities Designer Name Role Phone Travis Holbrook MD Primary Care Provider [phone] Encounter Details Date Type Department Care Team (Late st Contact Info) Description 07/03/2024 Lab Requisition [facility] - Main Lab [address] [facility] [place] [address] Travis Holbrook MD [address] [place] [address] [address] [facility] [address] Muscle weakness (generalized); Emphysema, unspecified (CMS/HCC [...] AM EDT) WBC 7.8 4.8 - 10.8 K/[facility] LAB HEMETOLOGY METHOD 07/03/2024 10:[address] [facility] LAB RBC 3.80 3.80 - 4.80 M/mcL LAB HEMETOLOGY METHOD 07/03/2024 10:[address] [facility] LAB Hemoglobin 11.4(L) 11.5 - 16.0 g/dL LAB HEMETOLOGY METHOD 07/03/2024 10:[address] [facility] LAB Hematocrit 36.8 35.0 - 47.0 % LAB HEMETOLOGY METHOD 07/03/2024 10:[address] [facility] LAB MCV 96.6 79.0 - 98.0 FL LAB HEMETOLOGY METHOD 07/03/2024 10:[address] [facility] LAB MCH 29.9 27.0 - 32.0 pcg LAB HEMETOLOGY METHOD 07/03/2024 10:[address] [facility] LAB MCHC 31.0(L) 32.0 - 37.0 g/dL LAB HEMETOLOGY METHOD 07/03/2024 10:[address] [facility] LAB RDW 16.3(H) 11.0 - 15.0 % LAB HEMETOLOGY METHOD 07/03/2024 10:[address] [facility] LAB Platelets 202 130 - 400 K/mcL LAB HEMETOLOGY METHOD 07/03/2024 10:[address] [facility] LAB MPV 12.5(H) 7.0 - 11.0 FL LAB HEMETOLOGY METHOD 07/03/2024 10:[address] [facility] LAB NRBC 0.0 <1.0 % LAB HEMETOLOGY METHOD 07/03/2024 10:[address] [facility] LAB NRBC Absolute 0.00 <0.10 K/mcL LAB HEMETOLOGY METHOD 07/03/2024 10:[address] [facility] LAB Blood Venous blood specimen / Unknown Venipuncture / Unknown 07/03/2024 5:14 AM EDT 07/03/2024 9:27 AM EDT us Travis Holbrook MD LAB BLOOD ORDERABLES Final Resul t [facility] LAB [address] [place] [address], documented in this encounter Visit Diagnoses Diagnosis Muscle weakness (generalized) Emphysema, unspecified (CMS/HCC V24, CMS/HCC V28) documented in this encounter Care Teams Sustainable Communities Designer Relationship Specialty Start Date End Date Travis Holbrook MD [address] [place] [address], [phone] PCP - General Family Medicine 02/28/24 documented as of this encounter
--- OUTSIDE RECORDS SUMMARY | 2024-11-21 09:40 | XMS_ITS | Encounter Summary ---
Author Organization [facility] Address [address] [place] [address] Care Team Providers Care Supervisor Industrial Garment Name Role Phone Travis Holbrook MD Primary Care Provider [phone] Encounter Details Date Type Department Care Team (Late st Contact Info) Description 07/19/2024 Lab Requisition [facility] - Main Lab [address] [facility] [place] [address] Travis Holbrook MD [address] [place] [address] [address] [facility] [address] Muscle weakness (generalized); Emphysema, unspecified [...] mmol/L LAB CHEMISTRY METHOD 07/22/2024 11:53 AM [facility] LAB Potassium 3.7 3.5 - 5.5 mmol/L LAB CHEMISTRY METHOD 07/22/2024 11:53 AM [facility] LAB Chloride 103 96 - 110 mmol/L LAB CHEMISTRY METHOD 07/22/2024 11:53 AM [facility] LAB CO2 32 21 - 32 mmol/L LAB CHEMISTRY METHOD 07/22/2024 11:53 AM [facility] LAB Anion Gap 8 3 - 11 LAB CHEMISTRY METHOD 07/22/2024 11:53 AM [facility] LAB Glucose 63(L) 70 - 100 mg/dL LAB CHEMISTRY METHOD 07/22/2024 11:53 AM [facility] BUN 24 5 - 25 mg/dL LAB CHEMISTRY METHOD 07/22/2024 11:53 AM [facility] LAB Creatinine 1.30(H) 0.50 - 1.10 mg/dL LAB CHEMISTRY METHOD 07/22/2024 11:53 AM [facility] LAB eGFR 44(L) >=60 mL/min/1. 73m2 LAB CHEMISTRY METHOD 07/22/2024 11:53 AM [facility] LAB Comment:Calculation based on the Chronic Kidney Disease Epidemiology Collaboration (CKD-EPI) equation refit without adjustment for race. BUN/Creatinine Ratio 18.5 LAB CHEMISTRY METHOD 07/22/2024 11:53 AM [facility] LAB Calcium 8.7 8.5 - 10.5 mg/dL LAB CHEMISTRY METHOD 07/22/2024 11:53 AM [facility] LAB Blood Venous blood specimen / Unknown Venipuncture / Unknown 07/22/2024 5:17 AM EDT 07/22/2024 9:39 AM EDT us Travis Holbrook MD LAB BLOOD ORDERABLES Final Resul t [facility] [address] [place] [address], [place] [phone] * (ABNORMAL) Complete blood count (07/22/2024 5:17 AM EDT) WBC 5.3 4.8 - 10.8 K/mcL LAB HEMETOLOGY METHOD 07/22/2024 10:02 AM EDT [facility] RBC 4.00 3.80 - 4.80 M/mcL LAB HEMETOLOGY METHOD 07/22/2024 10:02 AM EDT [facility] Hemoglobin 11.6 11.5 - 16.0 g/dL LAB HEMETOLOGY METHOD 07/22/2024 10:02 AM [facility] LAB Hematocrit 37.5 35.0 - 47.0 % LAB HEMETOLOGY METHOD 07/22/2024 10:02 AM EDT [facility] MCV 94.9 79.0 - 98.0 FL LAB HEMETOLOGY METHOD 07/22/2024 10:02 AM EDT [facility] MCH 29.4 27.0 - 32.0 pcg LAB HEMETOLOGY METHOD 07/22/2024 10:02 AM [facility] MCHC 30.9(L) 32.0 - 37.0 g/dL LAB HEMETOLOGY METHOD 07/22/2024 10:02 AM EDT [facility] RDW 15.4(H) 11.0 - 15.0 % LAB HEMETOLOGY METHOD 07[facility]22[facility]24 [facility] Platelets 142 130 - 400 K/mcL LAB HEMETOLOGY METHOD 07/22/2024 10[facility] MPV 11.1(H) 7.0 - 11.0 FL LAB HEMETOLOGY METHOD 07/22/2024 10:02 AM EDT [facility] NRBC 0.0 <1.0 % LAB HEMETOLOGY METHOD 07/22/2024 10:02 AM EDT [facility] NRBC Absolute 0.00 <0.10 K/mcL LAB HEMETOLOGY METHOD 07/22/2024 10:02 AM EDT [facility] Blood Venous blood specimen / Unknown Venipuncture / Unknown 07/22/2024 5:17 AM EDT 07/22/2024 9:39 AM EDT us Travis Holbrook MD LAB BLOOD ORDERABLES Final Resul t [facility] [address] [place] [address], documented in this encounter Visit Diagnoses Diagnosis Muscle weakness (generalized) Emphysema, unspecified (CMS/HCC V24, CMS/HCC V28) documented in this encounter Care Teams Supervisor Industrial Garment Relationship Specialty Start Date End Date Travis Holbrook MD [address] [place] [address], [phone] PCP - General Family Medicine 02/28/24 documented as of this encounter
--- OUTSIDE RECORDS SUMMARY | 2024-11-21 09:40 | XMS_ITS | Encounter Summary ---
Author Organization [facility] Address [address] [place] [address] Care Team Providers Care Infection Control Practitioner Name Role Phone Travis Holbrook MD Primary Care Provider [phone] Encounter Details Date Type Department Care Team (Late st Contact Info) Description 07/03/2024 Lab Requisition [facility] - Main Lab 299 [facility] [place] [address] Travis Holbrook MD [address] [place] [address] [facility] [address] Other detention (current) drug therapy Social History Tobacco Use [...] PANEL Routine 07/03/2024 11:40 AM EDT Other lobsterman (current) drug therapy documented in this encounter Results * (ABNORMAL) Comprehensive metabolic panel (07/03/2024 11:40 AM EDT) Sodium 134 133 - 145 mmol/L LAB CHEMISTRY METHOD 07/03/2024 2:18 PM EDT [facility] Potassium 4.7 3.5 - 5.5 mmol/L LAB CHEMISTRY METHOD 07/03/2024 2:18 PM [facility] Chloride 99 96 - 110 mmol/L LAB CHEMISTRY METHOD 07/03/2024 2:18 PM [facility] CO2 28 21 - 32 mmol/L LAB CHEMISTRY METHOD 07/03/2024 2:18 PM [facility] Anion Gap 7 3 - 11 LAB CHEMISTRY METHOD 07/03/2024 2:18 PM [facility] Glucose 79 70 - 100 mg/dL LAB CHEMISTRY METHOD 07/03/2024 2:18 PM [facility] BUN 19 5 - 25 mg/dL LAB CHEMISTRY METHOD 07/03/2024 2:18 PM [facility] Creatinine 1.09 0.50 - 1.10 mg/dL LAB CHEMISTRY METHOD 07/03/2024 2:18 PM [facility] eGFR 54(L) >=60 mL/min/1. 73m2 LAB CHEMISTRY METHOD 07/03/2024 2:18 PM [facility] Comment:Calculation based on the Chronic Kidney Disease Epidemiology Collaboration (CKD-EPI) equation refit without adjustment for race. BUN/Creatinine Ratio 17.4 LAB CHEMISTRY METHOD 07/03/2024 2:18 PM [facility] Calcium 9.2 8.5 - 10.5 mg/dL LAB CHEMISTRY METHOD 07/03/2024 2:18 PM [facility] AST (SGOT) 23 10 - 42 unit/L LAB CHEMISTRY METHOD 07/03/2024 2:18 PM [facility] ALT (SGPT) 33 10 - 60 unit/L LAB CHEMISTRY METHOD 07/03/2024 2:18 PM [facility] Alkaline Phosphatase 129(H) 42 - 121 unit/L LAB CHEMISTRY METHOD 07/03/2024 2:18 PM [facility] Total Protein 6.6 6.0 [...] t [facility] [address] [place] [address], documented in this encounter Visit Diagnoses Diagnosis Other lobsterman (current) drug therapy documented in this encounter Care Teams Infection Control Practitioner Relationship Specialty Start Date End Date Travis Holbrook MD [address] [place] [address] 204 [place], [address] PCP - General Family Medicine 02/28/24 documented as of this encounter
--- OUTSIDE RECORDS SUMMARY | 2024-11-21 09:40 | XMS_ITS | Patient Health Record ---
Author Organization [facility] Address [address] [place] [address] Care Team Providers Care Vallez Filter Operator Name Role Phone Namita Acosta NP Primary Care Provider Jose Pizarro Unavailable [phone] Allergies Allergen (clinical drug ingredient) Drug/Non Drug Allergy documented on EMR Reaction Allergy Type Onset Date Status Adhesive rash Allergy Active Fentanyl and Related rash Drug Allergy Active hydrocortisone Hydrocortisone rash Drug Allergy Active lisinopril Lisinopril anaphylaxis Drug Allergy Act shawanda Substance with 2-sjzuwyg-4-methylg lutaryl-coenzyme A reductase inhibitor mechanism of action [...] day(s) Active Vitamin D (Ergocalciferol) 1.25 MG (34067 UT) TAKE 1 CAPSULE BY MOUTH 1 [...] atherosclerosis of arteries of lower limbs (disorder) (00222180231418099 ) Atherosclerosis of hop[place] artery of both lower extremities, with unspecified presence of clinical manifestation (I70.203) Active confirmed Problem Rheumatoid arthritis (19536427) Rheumatoid arthritis involving both feet, unspecified whether rheumatoid factor present (M06.9) Active confirmed Plan Of Treatment Pending Test Test Name Order Date [id number] SKIN/TISSUE 12/17/2021 [id number] SKIN/TISSUE 01/21/2022 [id number] SKIN/TISSUE 05/25/2022 10396 I&D ABSCESS- SIMPLE,SINGLE 023 30951 I&D ABSCESS- SIMPLE,SINGLE 022 Insurance Providers Payer Name Payer Address Payer Phone Subscriber Number Group Number Insured Name Patient Relationship to Insured Coverage Start Date Coverage End Date [employer] Medicare [id number] [address] [address] [place] [address] [id number] Alexandrea Renee Self - patient is the [...] ribs- CT -sameday went back 09/12/21 09/10/21 [facility] rheumatoid lung-overnight 07/2021
--- OUTSIDE RECORDS SUMMARY | 2024-11-21 09:40 | XMS_ITS | Patient Health Record ---
Author Organization [facility] Address [address] [facility] [address] [place] [address] Care Team Providers Care Loss Mitigation Specialist Name Role Phone Carlos Alberto Murray Primary Care Provider Eduardo Carr MD MSc, Juju Unavailable [phone] Johnny Blanco Unavailable Unavailable Allergies Allergen (clinical [...] Status W/U Status Risk Notes Problem Sciatica (05804838) Sciatica (724.3) Active confirmed Problem Lumbosacral spondylosis without myelopathy (65849512) Lumbosacral spondylosis without myelopathy (721.3) Active confirmed Problem Muscle pain (29865679) Unspecified myalgia and myositis (729.1) Active confirmed Problem Postherpetic polyneuropathy (53718125) 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) Active confirmed Problem Lumbosacral spondylosis without myelopathy (disorder) (03409129) Spondylosis without myelopathy or radiculopathy, lumbosacral region (M47.817) Active confirmed Problem Lumbosacral spondylosis without myelopathy (67070190) Other spondylosis, lumbar region (M47.896) Active confirmed Problem High risk drug monitoring status (859181453) equipment operator intermodal yard current use of opiate analgesic (Z79.891) Active confirmed Problem Lumbar spondylosis (653624757) Lumbar spondylosis (M47.816) Active confirmed Problem Left shoulder pain (1389001787) Left shoulder pain (M25.512) Active confirmed Problem Spondylosis (0090283) Spondylosis (M47.9) Active confirmed Problem Postherpetic neuralgia (6811688) Postherpetic neuralgia (B02.29) Active confirmed Problem Shoulder pain (08416221) Shoulder pain (M25.519) Active confirmed Plan Of [...] MEDICARE NGS [address] [place] [phone] [id number] Alexandrea Renee Self - patient is the insured Medical (General) History Medical History History ICD Code Depression Hypercholesterolemia Arthritis Fibromyalgia OCD peripheral neuropathy Surgical History Surgery Date(Month/Year) L knee replacement 2003 L knee revision 2010 Uterine Ablation Tubal Ligation R knee Meniscus repair 2011
--- OUTSIDE RECORDS SUMMARY | 2024-11-21 09:40 | XMS_ITS | Encounter Summary ---
Author Organization [facility] Address [address] [place] [address] Care Team Providers Care Cake Icer And Packer Name Role Phone Travis Holbrook MD Primary Care Provider [phone] Encounter Details Date Type Department Care Team (Late st Contact Info) Description 07/12/[address] [facility] - Main Lab 299 [facility] [place] [address] Travis Holbrook MD [address] [place] [address] 204 [facility] [address] Muscle weakness (generalized); Emphysema, unspecified [...] LAB CHEMISTRY METHOD 07/15/2024 2:11 PM EDT [facility] Blood Venous blood specimen / Unknown Venipuncture / Unknown 07/15/2024 5:26 AM EDT 07/15/2024 10:23 AM EDT us Travis Holbrook MD LAB BLOOD ORDERABLES Final Resul t [facility] [address] [place] [address], * (ABNORMAL) Basic metabolic panel (07/15/2024 5:26 AM EDT) [facility] Sodium 143 133 - 145 mmol/L LAB CHEMISTRY METHOD 07/15/2024 2:29 PM [facility] Potassium 3.8 3.5 - 5.5 mmol/L LAB CHEMISTRY METHOD 07/15/2024 2:29 PM [facility] Chloride 102 96 - 110 mmol/L LAB CHEMISTRY METHOD 07/15/2024 2:29 PM T [facility] CO2 30 21 - 32 mmol/L LAB CHEMISTRY METHOD 07/15/2024 2:29 PM [facility] Anion Gap 11 3 - 11 LAB CHEMISTRY METHOD 07/15/2024 2:29 PM [facility] Glucose 65(L) 70 - 100 mg/dL LAB CHEMISTRY METHOD 07/15/2024 2:29 PM [facility] BUN 19 5 - 25 mg/dL LAB CHEMISTRY METHOD 07/15/2024 2:29 PM EDT [facility] Creatinine 1.17(H) 0.50 - 1.10 mg/dL LAB CHEMISTRY METHOD 07/15/2024 2:29 PM EDT [facility] eGFR 50(L) >=60 mL/min/1. 73m2 LAB CHEMISTRY METHOD 07/15/2024 2:29 PM EDT [facility] Comment:Calculation based on the Chronic Kidney Disease Epidemiology Collaboration (CKD-EPI) equation refit without adjustment for race. BUN/Creatinine Ratio 16.2 LAB CHEMISTRY METHOD 07/15/2024 2:29 PM EDT [facility] Calcium 9.3 8.5 - 10.5 mg/dL LAB CHEMISTRY METHOD 07/15/2024 2:29 PM EDT [facility] Blood Venous blood specimen / Unknown Venipuncture / Unknown 07/15/2024 5:26 AM EDT 07/15/2024 10:23 AM EDT us Travis Holbrook MD LAB BLOOD ORDERABLES Final Resul t [facility] [address] [place] [address], * (ABNORMAL) Complete blood count (07/15/2024 5:26 AM EDT) WBC 5.0 4.8 - 10.8 K/mcL LAB HEMETOLOGY METHOD 07/15/2024 11:34 AM EDT [facility] RBC 3.90 3.80 - 4.80 M/mcL LAB HEMETOLOGY METHOD 07/15/2024 11:34 AM EDT [facility] Hemoglobin 11.6 11.5 - 16.0 g/dL LAB HEMETOLOGY METHOD 07/15/2024 11:34 AM EDT [facility] Hematocrit 37.1 35.0 - 47.0 % LAB HEMETOLOGY METHOD 07/15/2024 11:34 AM EDT [facility] MCV 96.1 79.0 - 98.0 FL LAB HEMETOLOGY METHOD 07/15/2024 11:34 AM EDT [facility] MCH 30.1 27.0 - 32.0 pcg LAB HEMETOLOGY METHOD 07/15/2024 11:34 AM EDT [facility] MCHC 31.3(L) 32.0 - 37.0 g/dL LAB HEMETOLOGY METHOD 07/15/2024 11:34 AM EDT [facility] RDW 15.7(H) 11.0 - 15.0 % LAB HEMETOLOGY METHOD 07/15/2024 11:34 AM T [facility] Platelets 204 130 - 400 K/mcL LAB HEMETOLOGY METHOD 07/15/2024 11:34 AM EDT [facility] MPV 11.0 7.0 - 11.0 FL LAB HEMETOLOGY METHOD 07/15/2024 11:34 AM EDT [facility] NRBC 0.0 <1.0 % LAB HEMETOLOGY METHOD 07/15/2024 11:34 AM T [facility] NRBC Absolute 0.00 <0.10 K/mcL LAB HEMETOLOGY METHOD 07/15/2024 11:34 AM [facility] Blood Venous blood specimen / Unknown Venipuncture / Unknown 07/15/2024 5:26 AM EDT 07/15/2024 10:23 AM EDT us Travis Holbrook MD LAB BLOOD ORDERABLES Final Resul t [facility] [address] [place] [address], documented in this encounter Visit Diagnoses Diagnosis Muscle weakness (generalized) Emphysema, unspecified (CMS/HCC V24, CMS/HCC V28) Hypokalemia Hypopotassemia documented in this encounter Care Teams Cake Icer And Packer Relationship Specialty Start Date End Date Travis Holbrook MD [address] [place] [address], [phone] PCP - General Family Medicine 02/28/24 documented as of this encounter
--- OUTSIDE RECORDS SUMMARY | 2024-11-21 09:40 | XMS_ITS | Encounter Summary ---
Author Organization [facility] Address [address] [place] [address] Care Team Providers Care Construction Equipment Operator Name Role Phone Travis Holbrook MD Primary Care Provider [phone] Encounter Details Date Type Department Care Team (Late st Contact Info) Description 02/28/2024 Lab Requisition [facility] - Main Lab 299 [facility] [place] [address] Travis Holbrook MD [address] [place] [address] 204 [facility] [address] Other half-way (current) drug therapy Social History Tobacco Use [...] COUNT Routine 02/28/2024 6:48 AM EST Other half-way (current) drug therapy BASIC METABOLIC PANEL Routine 02/28/2024 6:48 AM EST Other intermission coordinator (current) drug therapy documented in this encounter [...] Resul t [facility] [address] [place] [address], [place] [phone] * (ABNORMAL) Complete blood count (02/28/2024 6:48 AM EST) [facility] WBC 6.1 4.8 - 10.8 K/mcL LAB [...] LAB HEMETOLOGY METHOD 02/28/2024 11:[address] [facility] Blood Venous blood specimen / Unknown Venipuncture / Unknown 02/28/2024 6:48 AM EST 02/28/2024 10:45 AM EST us Travis Holbrook MD LAB BLOOD ORDERABLES Final Resul t [facility] [address] [place] [address], documented in this encounter Visit Diagnoses Diagnosis Other intermission coordinator (current) drug therapy documented in this encounter Care Teams Construction Equipment Operator Relationship Specialty Start Date End Date Travis Holbrook MD [address] [place] [address], [phone] PCP - General Family Medicine 02/28/24 documented as of this encounter
--- OUTSIDE RECORDS SUMMARY | 2024-11-21 09:40 | XMS_ITS | Encounter Summary ---
Author Organization [facility] Address [address] [place] [address] Care Team Providers Care Ply Cutter Name Role Phone Travis Holbrook MD Primary Care Provider [phone] Encounter Details Date Type Department Care Team (Late st Contact Info) Description 03/07/2024 Lab Requisition [facility] - Main Lab 299 [facility] [place] [address] Lavonne Irvin MD [address] [place], [place] [phone] Essential (primary) hypertension; Acute kidney failure, unspecified [...] mmol/L LAB CHEMISTRY METHOD 03/07/2024 11:23 AM [facility] Potassium 4.5 3.5 - 5.5 mmol/L LAB CHEMISTRY METHOD 03/07/2024 11:23 AM [facility] Chloride 106 96 - 110 mmol/L LAB CHEMISTRY METHOD 03/07/2024 11:23 AM [facility] CO2 29 21 - 32 mmol/L LAB CHEMISTRY METHOD 03/07/2024 11:23 AM [facility] Anion Gap 5 3 - 11 LAB CHEMISTRY METHOD 03/07/2024 11:23 AM [facility] Glucose 78 70 - 100 mg/dL LAB CHEMISTRY METHOD 03/07/2024 11:23 AM [facility] BUN 25 5 - 25 mg/dL LAB CHEMISTRY METHOD 03/07/2024 11:23 AM [facility] Creatinine 1.27(H) 0.50 - 1.10 mg/dL LAB CHEMISTRY METHOD 03/07/2024 11:23 AM [facility] eGFR 45(L) >=60 mL/min/1. 73m2 LAB CHEMISTRY METHOD 03/07/2024 11:23 AM [facility] Comment:Calculation based on the Chronic Kidney Disease Epidemiology Collaboration (CKD-EPI) equation refit without adjustment for race. BUN/Creatinine Ratio 19.7 LAB CHEMISTRY METHOD 03/07/2024 11:23 AM [facility] Calcium 8.6 8.5 - 10.5 mg/dL LAB CHEMISTRY METHOD 03/07/2024 11:23 AM [facility] Blood Venous blood specimen / Unknown Venipuncture / Unknown 03/07/2024 6:00 AM EST 03/07/2024 10:35 AM EST us Lavonne Irvin MD LAB BLOOD ORDERABLES Final Resul t [facility] [address] [place] [address], * (ABNORMAL) Complete blood count (03/07/2024 6:00 AM EST) [facility] Signature WBC 4.8 4.8 - 10.8 K/mcL LAB HEMETOLOGY METHOD 03/07/2024 10:54 AM EST [facility] RBC 3.70(L) 3.80 - 4.80 M/mcL LAB HEMETOLOGY METHOD 03/07/2024 10:54 AM [facility] Hemoglobin 11.1(L) 11.5 - 16.0 g/dL LAB HEMETOLOGY METHOD 03/07/2024 10:54 AM [facility] Hematocrit 34.6(L) 35.0 - 47.0 % LAB HEMETOLOGY METHOD 03/07/2024 10:54 AM [facility] MCV 94.3 79.0 - 98.0 FL LAB HEMETOLOGY METHOD 03/07/2024 10:54 AM [facility] MCH 30.2 27.0 - 32.0 pcg LAB HEMETOLOGY METHOD 03/07/2024 10:54 AM [facility] MCHC 32.1 32.0 - 37.0 g/dL LAB HEMETOLOGY METHOD 03/07/2024 10:54 AM [facility] RDW 15.2(H) 11.0 - 15.0 % LAB HEMETOLOGY METHOD 03/07/2024 10:54 AM [facility] Platelets 211 130 - 400 K/mcL LAB HEMETOLOGY METHOD 03/07/2024 10:54 AM [facility] MPV 10.3 7.0 - 11.0 FL LAB HEMETOLOGY METHOD 03/07/2024 10:54 AM [facility] NRBC 0.0 <1.0 % LAB HEMETOLOGY METHOD 03/07/2024 10:54 AM EST [facility] NRBC Absolute 0.00 <0.10 K/mcL LAB HEMETOLOGY METHOD 03/07/2024 10:54 AM EST [facility] Blood Venous blood specimen / Unknown Venipuncture / Unknown 03/07/2024 6:00 AM EST 03/07/2024 10:35 AM EST us Lavonne Irvin MD LAB BLOOD ORDERABLES Final Resul t [facility] [address] [place] [address], documented in this encounter Visit Diagnoses Diagnosis Essential (primary) hypertension Unspecified essential hypertension Acute kidney failure, unspecified (CMS/HCC V24) Acute kidney failure, unspecified documented in this encounter Care Teams Ply Cutter Relationship Specialty Start Date End Date Travis Holbrook MD [address] [place] [address] 204 [place], [phone] PCP - General Family Medicine 02/28/24 documented as of this encounter
--- OUTSIDE RECORDS SUMMARY | 2024-11-21 09:40 | XMS_ITS | Encounter Summary ---
Author Organization [facility] Address [address] [place] [address] Care Team Providers Care Singer And Unloader Name Role Phone Travis Holbrook MD Primary Care Provider [phone] Encounter Details Date Type Department Care Team (Late st Contact Info) Description 03/05/2024 Lab Requisition [facility] - Main Lab 299 [facility] [place] [address] Travis Holbrook MD [address] [place] [phone] Other custodial (current) drug therapy Social History Tobacco Use [...] of this encounter Visit Diagnoses Diagnosis Other custodial (current) drug therapy documented in this encounter Care Teams Singer And Unloader Relationship Specialty Start Date End Date Travis Holbrook MD [address] [facility] 204 [facility] [phone] PCP - General Family Medicine 02/28/24 documented as of this encounter
--- OUTSIDE RECORDS SUMMARY | 2024-11-21 09:40 | XMS_ITS | Encounter Summary ---
Author Organization [facility] Address [address] [place] [address] Care Team Providers Care Digital Content Manager Name Role Phone Travis Holbrook MD Primary Care Provider [phone] Encounter Details Date Type Department Care Team (Late st Contact Info) Description 03/22/2024 Lab Requisition [facility] - Main Lab 299 [facility] [place] [address] Lavonne Irvin MD [address] [place] [address] Essential (primary) hypertension; Acute kidney failure, unspecified [...] unspecified documented in this encounter Care Teams Digital Content Manager Relationship Specialty Start Date End Date Travis Holbrook MD [address] [place] [address] 204 [facility] [phone] PCP - General Family Medicine 02/28/24 documented as of this encounter
--- OUTSIDE RECORDS SUMMARY | 2024-11-21 09:40 | XMS_ITS | Encounter Summary ---
Author Organization [facility] Address [address] [place] [address] Care Team Providers Care Car Scrubber Name Role Phone Travis Holbrook MD Primary Care Provider [phone] Encounter Details Date Type Department Care Team (Late st Contact Info) Description 07/05/2024 Lab Requisition [facility] - Main Lab 299 [facility] [place] [address] Travis Holbrook MD [address] [place] [address] 204 [facility] [address] Muscle weakness (generalized); Emphysema, unspecified [...] mmol/L LAB CHEMISTRY METHOD 07/08/2024 8:22 AM [facility] Potassium 3.9 3.5 - 5.5 mmol/L LAB CHEMISTRY METHOD 07/08/2024 8:22 AM [facility] Comment:Hemolysis present Chloride 103 96 - 110 mmol/L LAB CHEMISTRY METHOD 07/08/2024 8:22 AM [facility] CO2 31 21 - 32 mmol/L LAB CHEMISTRY METHOD 07/08/2024 8:22 AM [facility] Anion Gap 6 3 - 11 LAB CHEMISTRY METHOD 07/08/2024 8:22 AM [facility] Glucose 97 70 - 100 mg/dL LAB CHEMISTRY METHOD 07/08/2024 8:22 AM [facility] Comment:Lipemia present BUN 26(H) 5 - 25 mg/dL LAB CHEMISTRY METHOD 07/08/2024 8:22 AM [facility] Creatinine 1.30(H) 0.50 - 1.10 mg/dL LAB CHEMISTRY METHOD 07/08/2024 8:22 AM [facility] eGFR 44(L) >=60 mL/min/1. 73m2 LAB CHEMISTRY METHOD 07/08/2024 8:22 AM [facility] Comment:Calculation based on the Chronic Kidney Disease Epidemiology Collaboration (CKD-EPI) equation refit without adjustment for race. BUN/Creatinine Ratio 20.0 LAB CHEMISTRY METHOD 07/08/2024 8:22 AM [facility] Calcium 9.0 8.5 - 10.5 mg/dL LAB CHEMISTRY METHOD 07/08/2024 8:22 AM [facility] Blood Venous blood specimen / Unknown Venipuncture / Unknown 07/08/2024 5:44 AM EDT 07/08/2024 7:28 AM EDT us Travis Holbrook MD LAB BLOOD ORDERABLES Final Resul t [facility] [address] [place] [address], * (ABNORMAL) Complete blood count (07/08/2024 5:44 AM EDT) WBC 6.1 4.8 - 10.8 K/mcL LAB HEMETOLOGY METHOD 07/08/2024 8:03 AM EDT [facility] RBC 3.90 3.80 - 4.80 M/mcL LAB HEMETOLOGY METHOD 07/08/2024 8:03 AM [facility] Hemoglobin 11.7 11.5 - 16.0 g/dL LAB HEMETOLOGY METHOD 07/08/2024 8:03 AM [facility] Hematocrit 37.1 35.0 - 47.0 % LAB HEMETOLOGY METHOD 07/08/2024 8:03 AM [facility] MCV 95.9 79.0 - 98.0 FL LAB HEMETOLOGY METHOD 07/08/2024 8:03 AM [facility] MCH 30.2 27.0 - 32.0 pcg LAB HEMETOLOGY METHOD 07/08/2024 8:03 AM [facility] MCHC 31.5(L) 32.0 - 37.0 g/dL LAB HEMETOLOGY METHOD 07/08/2024 8:03 AM [facility] RDW 15.9(H) 11.0 - 15.0 % LAB HEMETOLOGY METHOD 07/08/2024 8:03 AM [facility] Platelets 223 130 - 400 K/mcL LAB HEMETOLOGY METHOD 07/08/2024 8:03 AM [facility] MPV 10.9 7.0 - 11.0 FL LAB HEMETOLOGY METHOD 07/08/2024 8:03 AM EDT [facility] NRBC 0.0 <1.0 % LAB HEMETOLOGY METHOD 07/08/2024 8:03 AM EDT [facility] NRBC Absolute 0.00 <0.10 K/mcL LAB HEMETOLOGY METHOD 07/08/2024 8:03 AM EDT [facility] Blood Venous blood specimen / Unknown Venipuncture / Unknown 07/08/2024 5:44 AM EDT 07/08/2024 7:28 AM EDT us Travis Holbrook MD LAB BLOOD ORDERABLES Final Resul t [facility] [address] [place] [address], documented in this encounter Visit Diagnoses Diagnosis Muscle weakness (generalized) Emphysema, unspecified (CMS/HCC V24, CMS/HCC V28) documented in this encounter Care Teams Car Scrubber Relationship Specialty Start Date End Date Travis Holbrook MD [address] [place] [address], [phone] PCP - General Family Medicine 02/28/24 documented as of this encounter
--- OUTSIDE RECORDS SUMMARY | 2024-11-21 09:40 | XMS_ITS | Encounter Summary ---
Author Organization [facility] Address [address] [place] [address] Care Team Providers Care Distribution Engineering Technologist Name Role Phone Travis Holbrook MD Primary Care Provider [phone] Encounter Details Date Type Department Care Team (Late st Contact Info) Description 07/26/2024 Lab Requisition [facility] - Main Lab [address] [facility] [place] [address] Tarvis Holbrook MD [address] [place] [address] [address] [place], [phone] Muscle weakness (generalized); Emphysema, unspecified (CMS/HCC V24, [...] V28) documented in this encounter Care Teams Distribution Engineering Technologist Relationship Specialty Start Date End Date Travis Holbrook MD [address] [facility] [address] [place], [phone] PCP - General Family Medicine 02/28/24 documented as of this encounter
--- OUTSIDE RECORDS SUMMARY | 2024-11-21 09:40 | XMS_ITS | Clinical Summary ---
Author Organization [address] Address [address] [place] [phone] Phone Care Team Providers Care C D Stripper Name Role Phone Travis Holbrook MD Primary Care Provider [phone] Allergies Active Allergy Reactions Criticality Noted Date Comments Adhesive Tape-Silicones Low 02/06/2017 Tape Other Reaction(s): Rash/Dermatitis Chlorthalidone Medium 08/08/2017 Hypokalemia Hydrochlorothiazide High 02/07/2017 Hyponatremia Lisinopril Anaphylaxis,Swell ing High 02/06/2017 anaphylaxis, 2017 [employer] Kyfvvjf-Qxg-Snv Reductase Inhibitors 02/06/2017 Statins [Hmg-coa-r Inhibitors] Leg weakness leg pain Sulfa (Sulfonamide Antibiotics) Low 02/06/2017 Sulfa Drugs Other Reaction(s): Rash/Dermatitis Tramadol Low 02/06/2017 Other Reaction(s): Rash/Dermatitis serotonin syndrome , while she was also taking Cymbalta, 2017 Tremor Active Problems Problem Noted Date Diagnosed Date Chronic foot ulcer ([facility] V24, [facility] V28) Chronic patellofemoral pain of left knee 023 Difficult intubation 08/25/2022 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 Gait instability 08/25/2022 Polycythemia vera ([facility] V24, [facility] V28) 03/2022 Post-traumatic osteoarthritis of right knee 03/2022 Proximal muscle weakness 08/25/2022 Right medial tibial plateau fracture, closed, initial encounter 08/25/2022 Urinary incontinence 08/25/2022 Anxiety 08/24/2022 Bronchiectasis ([facility] V24, [facility] V28) 2022 Chronic lower back pain 08/24/2022 COPD (chronic obstructive pu lmonary disease) ([facility] V24, [facility] V28) 08/24/2022 Depression 08/24/2022 GERD (gastroesophageal reflux disease) Jose's thyroiditis 08/24/2022 HLD (hyperlipidemia) 08/24/2022 Lymphedema 08/24/2022 Polycythemia 08/24/2022 Rheumatoid arthritis ([facility] V24, [facility] V28) 08/24/2022 Rheumatoid lung ([facility] V24, [facility] V28) 08/24 Vitamin D deficiency 08/24/2022 Lymphedema of left lower extremity 05/13/2020 Overview (04/19/2024): Last Assessment & Plan: Stable at baseline. Takes Lasix as needed for extra leg swelling present. Bronchiectasis without compl ication ([facility] V24, [facility] V28) 01/10/2019 Overview (04/19/2024): Last Assessment & [...] ng multiple sites with positive rheumatoid factor ([facility] V24, [facility] V28) 10/09/2017 Overview (04/19/2024): Last Assessment & Plan: Stable at baseline, although some increased pain recently in right knee due to insufficiency fracture. F/u with Dr. Hair as scheduled. Rheumatoid lung disease ([facility] V24, [facility] V2 8) 10/09/2017 Overview (04/19/2024): Last Assessment & Plan: Stable, with close monitoring by Dr. Ordonez of pulmonology. Continue current therapies. Centrilobular emphysema ([facility] V24, [facility] V2 8) 08/23/2017 Overview (04/19/2024): Last Assessment [...] Site/Laterality Comments OTHER SURGICAL HISTORY N/A PROCEDURE: ID HYSTEROSCOPY ENDOMETRIAL ABLATION TUBAL LIGATION PROCEDURE: HISTORICAL [...] LAB CHEMISTRY METHOD 07/22/2024 11:[address] [facility] Potassium 3.7 3.5 - 5.5 mmol/L LAB CHEMISTRY METHOD 07/22/2024 11:53 AM [facility] Chloride 103 96 - 110 mmol/L LAB CHEMISTRY METHOD 07/22/2024 11:53 AM [facility] CO2 32 21 - 32 mmol/L LAB CHEMISTRY METHOD 07/22/2024 11:53 AM [facility] Anion Gap 8 3 - 11 LAB CHEMISTRY METHOD 07/22/2024 11:53 AM [facility] Glucose 63(L) 70 - 100 mg/dL LAB CHEMISTRY METHOD 07/22/2024 11:53 AM [facility] BUN 24 5 - 25 mg/dL LAB CHEMISTRY METHOD 07/22/2024 11:53 AM [facility] Creatinine 1.30(H) 0.50 - 1.10 mg/dL LAB CHEMISTRY METHOD 07/22/2024 11:53 AM [facility] eGFR 44(L) >=60 mL/min/1. 73m2 LAB CHEMISTRY METHOD 07/22/2024 11:53 AM [facility] Comment:Calculation based on the Chronic Kidney Disease Epidemiology Collaboration (CKD-EPI) equation refit without adjustment for race. BUN/Creatinine Ratio 18.5 LAB CHEMISTRY METHOD 07/22/2024 11:53 AM [facility] Calcium 8.7 8.5 - 10.5 mg/dL LAB CHEMISTRY METHOD 07/22/2024 11:53 AM [facility] Blood Venous blood specimen / Unknown Venipuncture / Unknown 07/22/2024 5:17 AM EDT 07/22/2024 9:39 AM EDT us Travis Holbrook MD LAB BLOOD ORDERABLES Final Resul t [facility] [address] [place] [address], * Lipid panel (07/06/2022) LDL/HDL Ratio 0 [...] Most Recently Relevant to Health Maintenance Insurance [address] [place] [phone] MEDICAID - [place] [employer] MEDICARE Care Teams C D Stripper Relationship Specialty Start Date End Date Travis Holbrook MD [address] [place] [address] [address] [place], [phone] PCP - General Family Medicine 02/28/24
== END 2024-11-20 08:53 | disposition home or self-care (01) ==
LOC: HO.HOSX 08:52
PROVIDERS: Visit Provider Orthopaedic Surgery
DX: Z13.89 Encounter for screening for other disorder (principal)

== ENCOUNTER 2024-12-16 02:03 | Inpatient (IN) | payer MEDICARE, MEDICAID, SELFPAY ==
[2024-12-16] VITALS (10 sets, daily range): BP systolic 121–187; BP diastolic 53–96; PULSE 54–90; RESP 12–18; TEMP 36.3–37; O2SAT 94–98; BMI 32.9
[2024-12-16 02:30] LABS: Hematocrit 40.6 % (37.0-47.0); Hemoglobin 13.9 g/dl (12.0-16.0); Imm Gran Abs Auto 0.04 X10*3/uL (0.00-0.03); Imm Gran Pct Auto 0.5 % (0.0-0.4); Lymphocytes Absolute Auto 2.7 X10*3/uL (1.2-4.9); MANUAL DIFF FLAG NO; Mean Corpuscular HGB Conc 34.2 g/dl (31.0-35.0); Mean Corpuscular Hemoglobin 30.3 pg (27.0-33.0); Mean Corpuscular Volume 88.6 fL (80.0-98.0); NRBC Abs Auto 0.000 X10*3/uL (0.0-0.012); NRBC Pct Auto 0.0 /100WBC (0.0-0.2); Platelet Count 192 X10*3/uL (160-400); Red Blood Count 4.58 X10*6/uL (4.20-5.50); White Blood Count 7.4 X10*3/uL (4.8-10.8)
[2024-12-16 02:46] LABS: Alanine Aminotransferase 6 U/L (0-31); Albumin Level 3.7 g/dL (3.5-5.0); Alkaline Phosphatase 101 U/L (39-117); Anion Gap 13 (12-20); Aspartate Amino Transferase 18 U/L (5-31); Blood Urea Nitrogen 16 mg/dL (9-16); Calcium 8.9 mg/dL (8.4-10.2); Carbon Dioxide 25 mmol/L (22-29); Chloride 109 mmol/L (96-108); Creatinine Clr Calc Pharmacy 60.2; Estimated Glomerular Filt Rate 55; Lipase 14 U/L (8-78); Potassium 3.5 mmol/L (3.3-5.1); Sodium 143 mmol/L (135-145); Total Protein 7.3 g/dL (6.5-8.0)
--- OUTSIDE RECORDS SUMMARY | 2024-12-16 03:06 | XMS_ITS | Encounter Summary ---
Author Organization [facility] Address [address] [place] [address] Care Team Providers Care Furnace Operator Name Role Phone Travis Holbrook MD Primary Care Provider [phone] Encounter Details Date Type Department Care Team (Late st Contact Info) Description 07/26/2024 Lab Requisition [facility] - Main Lab [address] [facility] [place] [address] Travis Holbrook MD [address] [place] [address] [address] [place], [phone] Muscle weakness (generalized); Emphysema, unspecified (CMS/HCC V24, [...] V28) documented in this encounter Care Teams Furnace Operator Relationship Specialty Start Date End Date Travis Holbrook MD [address] [facility] [address] [place], [phone] PCP - General Family Medicine 02/28/24 documented as of this encounter
--- OUTSIDE RECORDS SUMMARY | 2024-12-16 03:06 | XMS_ITS | Encounter Summary ---
Author Organization [facility] Address [address] [place] [address] Care Team Providers Care Obstetrical Anesthesiologist Name Role Phone Travis Holbrook MD Primary Care Provider [phone] Encounter Details Date Type Department Care Team (Late st Contact Info) Description 02/28/2024 Lab Requisition [facility] - Main Lab [address] [facility] [place] [address] Travis Holbrook MD [address] [place] [address] [address] [facility] [phone] Other petroleum terminal plant operator (current) drug therapy Social History Tobacco [...] COUNT Routine 02/28/2024 6:48 AM EST Other detention (current) drug therapy BASIC METABOLIC PANEL Routine 02/28/2024 6:48 AM EST Other petroleum terminal plant operator (current) drug therapy documented in this encounter Results * (ABNORMAL) Basic metabolic panel (02/28/2024 6:48 AM EST) Sodium 137 133 - 145 mmol/L LAB CHEMISTRY METHOD 02/28/2024 12:05 PM [facility] Potassium 4.2 3.5 - 5.5 mmol/L LAB CHEMISTRY METHOD 02/28/2024 12:05 PM [facility] Chloride 103 96 - 110 mmol/L LAB CHEMISTRY METHOD 02/28/2024 12:05 PM [facility] CO2 31 21 - 32 mmol/L LAB CHEMISTRY METHOD 02/28/2024 12:05 PM [facility] Anion Gap 3 3 - 11 LAB CHEMISTRY METHOD 02/28/2024 12:05 PM [facility] Glucose 81 70 - 100 mg/dL LAB CHEMISTRY METHOD 02/28/2024 12:05 PM [facility] BUN 26(H) 5 - 25 mg/dL LAB CHEMISTRY METHOD 02/28/2024 12:05 PM [facility] Creatinine 1.00 0.50 - 1.10 mg/dL LAB CHEMISTRY METHOD 02/28/2024 12:05 PM [facility] eGFR 60 >=60 mL/min/1. 73m2 LAB CHEMISTRY METHOD 02/28/2024 12:05 PM [facility] Comment:Calculation based on the Chronic Kidney Disease Epidemiology Collaboration (CKD-EPI) equation refit without adjustment for race. BUN/Creatinine Ratio 26.0 LAB CHEMISTRY METHOD 02/28/2024 12:05 PM [facility] Calcium 9.0 8.5 - 10.5 mg/dL LAB CHEMISTRY METHOD 02/28/2024 12:05 PM [facility] Blood Venous blood specimen / Unknown Venipuncture / Unknown 02/28/2024 6:48 AM EST 02/28/2024 10:45 AM EST us Travis Holbrook MD LAB BLOOD ORDERABLES Final Resul t [facility] [address] [place] [address], [place] [phone] * (ABNORMAL) Complete blood count (02/28/2024 6:48 AM EST) [facility] [address] WBC 6.1 4.8 - 10.8 K/mcL LAB HEMETOLOGY METHOD 02/28/2024 11:33 AM [facility] RBC 3.80 3.80 - 4.80 M/mcL LAB HEMETOLOGY METHOD 02/28/2024 11:33 AM [facility] Hemoglobin 11.4(L) 11.5 - 16.0 g/dL LAB HEMETOLOGY METHOD 02/28/2024 11:33 AM [facility] Hematocrit 36.3 35.0 - 47.0 % LAB HEMETOLOGY METHOD 02/28/2024 11:33 AM [facility] MCV 95.3 79.0 - 98.0 FL LAB HEMETOLOGY METHOD 02/28/2024 11:33 AM [facility] MCH 29.9 27.0 - 32.0 pcg LAB HEMETOLOGY METHOD 02/28/2024 11:33 AM [facility] MCHC 31.4(L) 32.0 - 37.0 g/dL LAB HEMETOLOGY METHOD 02/28/2024 11:33 AM [facility] RDW 15.0 11.0 - 15.0 % LAB HEMETOLOGY METHOD 02/28/2024 11:33 AM [facility] Platelets 180 130 - 400 K/mcL LAB HEMETOLOGY METHOD 02/28/2024 11:33 AM [facility] MPV 10.5 7.0 - 11.0 FL LAB HEMETOLOGY METHOD 02/28/2024 11:33 AM [facility] NRBC 0.0 <1.0 % LAB HEMETOLOGY METHOD 02/28/2024 11:33 AM [facility] NRBC Absolute 0.00 <0.10 K/mcL LAB HEMETOLOGY METHOD 02/28/2024 11:33 AM EST [facility] Blood Venous blood specimen / Unknown Venipuncture / Unknown 02/28/2024 6:48 AM EST 02/28/2024 10:45 AM EST us Travis Holbrook MD LAB BLOOD ORDERABLES Final Resul t [facility] [address] [place] [address], documented in this encounter Visit Diagnoses Diagnosis Other petroleum terminal plant operator (current) drug therapy documented in this encounter Care Teams Obstetrical Anesthesiologist Relationship Specialty Start Date End Date Travis Holbrook MD [address] [place] [address], [phone] PCP - General Family Medicine 02/28/24 documented as of this encounter
--- OUTSIDE RECORDS SUMMARY | 2024-12-16 03:06 | XMS_ITS | Encounter Summary ---
Author Organization [facility] Address [address] [place] [address] Care Team Providers Care Licensed Physical Therapist Assistant Name Role Phone Travis Holbrook MD Primary Care Provider [phone] Encounter Details Date Type Department Care Team (Late st Contact Info) Description 03/16/2024 Lab Requisition [facility] - Main Lab 299 [facility] [place] [address] Lavonne Irvin MD [address] [place], [place] [phone] Essential (primary) hypertension; Acute kidney failure, unspecified [...] t [facility] [address] [place] [address], * (ABNORMAL) Complete blood count (03/18/2024 7:09 AM EST) [facility] WBC 6.3 4.8 - 10.8 K/mcL LAB HEMETOLOGY METHOD 03/18/2024 11:57 AM EST [facility] RBC 3.90 3.80 - 4.80 M/mcL LAB HEMETOLOGY METHOD 03/18/2024 11:57 AM EST [facility] Hemoglobin 11.6 11.5 - 16.0 g/dL LAB HEMETOLOGY METHOD 03/18/2024 11:57 AM [facility] Hematocrit 37.4 35.0 - 47.0 % LAB HEMETOLOGY METHOD 03/18/2024 11:57 AM [facility] MCV 97.1 79.0 - 98.0 FL LAB HEMETOLOGY METHOD 03/18/2024 11:57 AM [facility] MCH 30.1 27.0 - 32.0 pcg LAB HEMETOLOGY METHOD 03/18/2024 11:57 AM [facility] MCHC 31.0(L) 32.0 - 37.0 g/dL LAB HEMETOLOGY METHOD 03/18/2024 11:57 AM EST [facility] RDW 15.9(H) 11.0 - 15.0 % LAB HEMETOLOGY METHOD 03/18/2024 11:57 AM [facility] Platelets 148 130 - 400 K/mcL LAB HEMETOLOGY METHOD 03/18/2024 11:57 AM EST [facility] MPV 11.0 7.0 - 11.0 FL LAB HEMETOLOGY METHOD 03/18/2024 11:57 AM EST [facility] NRBC 0.0 <1.0 % LAB [...] Resul t [facility] [address] [place] [address], documented in this encounter Visit Diagnoses Diagnosis Essential (primary) hypertension Unspecified essential hypertension Acute kidney failure, unspecified (CMS/HCC V24) Acute kidney failure, unspecified documented in this encounter Care Teams Licensed Physical Therapist Assistant Relationship Specialty Start Date End Date Travis Holbrook MD [address] [place] [address], [phone] PCP - General Family Medicine 02/28/24 documented as of this encounter
--- OUTSIDE RECORDS SUMMARY | 2024-12-16 03:06 | XMS_ITS | Encounter Summary ---
Author Organization [facility] Address [address] [place] [address] Care Team Providers Care Model Builder Name Role Phone Travis Holbrook MD Primary Care Provider [phone] Encounter Details Date Type Department Care Team (Late st Contact Info) Description 03/22/2024 Lab Requisition [facility] - Main Lab [address] [facility] [place] [address] Lavonne Irvin MD [address] [place] [address] Essential (primary) hypertension; Acute kidney failure, unspecified [...] unspecified documented in this encounter Care Teams Model Builder Relationship Specialty Start Date End Date Travis Holbrook MD [address] [place] [address] [address] [facility] [phone] PCP - General Family Medicine 02/28/24 documented as of this encounter
--- OUTSIDE RECORDS SUMMARY | 2024-12-16 03:06 | XMS_ITS | Encounter Summary ---
Author Organization [facility] Address [address] [place] [address] Care Team Providers Care Product Transfer Pumper Name Role Phone Travis Holbrook MD Primary Care Provider [phone] Encounter Details Date Type Department Care Team (Late st Contact Info) Description 07/03/2024 Lab Requisition [facility] - Main Lab [address] [facility] [place] [address] Travis Holbrook MD [address] [place] [address] [address] [facility] [address] Muscle weakness (generalized); Emphysema, unspecified [...] AM EDT) WBC 7.8 4.8 - 10.8 K/[facility] LAB HEMETOLOGY METHOD 07/03/2024 10:02 AM [facility] RBC 3.80 3.80 - 4.80 M/mcL LAB HEMETOLOGY METHOD 07/03/2024 10:02 AM [facility] Hemoglobin 11.4(L) 11.5 - 16.0 g/dL LAB HEMETOLOGY METHOD 07/03/2024 10:02 AM [facility] Hematocrit 36.8 35.0 - 47.0 % LAB HEMETOLOGY METHOD 07/03/2024 10:02 AM [facility] MCV 96.6 79.0 - 98.0 FL LAB HEMETOLOGY METHOD 07/03/2024 10:02 AM [facility] MCH 29.9 27.0 - 32.0 pcg LAB HEMETOLOGY METHOD 07/03/2024 10:02 AM [facility] MCHC 31.0(L) 32.0 - 37.0 g/dL LAB HEMETOLOGY METHOD 07/03/2024 10:02 AM [facility] RDW 16.3(H) 11.0 - 15.0 % LAB HEMETOLOGY METHOD 07/03/2024 10:02 AM [facility] Platelets 202 130 - 400 K/mcL LAB HEMETOLOGY METHOD 07/03/2024 10:02 AM [facility] MPV 12.5(H) 7.0 - 11.0 FL LAB HEMETOLOGY METHOD 07/03/2024 10:02 AM [facility] NRBC 0.0 <1.0 % LAB HEMETOLOGY METHOD 07/03/2024 10:02 AM [facility] NRBC Absolute 0.00 <0.10 K/mcL LAB HEMETOLOGY METHOD 07/03/2024 10:02 AM [facility] Blood Venous blood specimen / Unknown Venipuncture / Unknown 07/03/2024 5:14 AM EDT 07/03/2024 9:27 AM EDT us Travis Holbrook MD LAB BLOOD ORDERABLES Final Resul t [email or web address] [address] [place] [address], documented in this encounter Visit Diagnoses Diagnosis Muscle weakness (generalized) Emphysema, unspecified (CMS/HCC V24, CMS/HCC V28) documented in this encounter Care Teams Product Transfer Pumper Relationship Specialty Start Date End Date Travis Holbrook MD [address] [place] [address], [phone] PCP - General Family Medicine 02/28/24 documented as of this encounter
--- OUTSIDE RECORDS SUMMARY | 2024-12-16 03:06 | XMS_ITS | Encounter Summary ---
Author Organization [facility] Address [address] [place] [address] Care Team Providers Care Air Hammer Stripper Name Role Phone Travis Holbrook MD Primary Care Provider Encounter Details Date Type Department Care Team (Late st Contact Info) Description 03/05/2024 Lab Requisition [facility] - Main Lab [address] [facility] [place] [address] Travis Holbrook MD [address] [place] [phone] Other communications director (current) drug therapy Social History Tobacco Use [...] of this encounter Visit Diagnoses Diagnosis Other communications director (current) drug therapy documented in this encounter Care Teams Air Hammer Stripper Relationship Specialty Start Date End Date Travis Holbrook MD [address] [facility] 204 [facility] [phone] PCP - General Family Medicine 02/28/24 documented as of this encounter
--- OUTSIDE RECORDS SUMMARY | 2024-12-16 03:06 | XMS_ITS | Patient Health Record ---
Author Organization [facility] Address [address] [place] [address] Care Team Providers Care Vocational Placement Specialist Name Role Phone Namita Acosta NP Primary Care Provider Jose Pizarro Unavailable [phone] Allergies Allergen (clinical drug ingredient) Drug/Non Drug Allergy documented on EMR Reaction Allergy Type Onset Date Status Adhesive rash Allergy Active Fentanyl and Related rash Drug Allergy Active hydrocortisone Hydrocortisone rash Drug Allergy Active lisinopril Lisinopril anaphylaxis Drug Allergy Act shawanda Substance with 1-ixjztml-3-methylg lutaryl-coenzyme A reductase inhibitor mechanism of action [...] day(s) Active Vitamin D (Ergocalciferol) 1.25 MG (03821 UT) TAKE 1 CAPSULE BY MOUTH 1 [...] atherosclerosis of arteries of lower limbs (disorder) (17723821889354992 ) Atherosclerosis of [place] artery of both lower extremities, with unspecified presence of clinical manifestation (I70.203) Active confirmed Problem Rheumatoid arthritis (27458353) Rheumatoid arthritis involving both feet, unspecified whether rheumatoid factor present (M06.9) Active confirmed Plan Of Treatment Pending Test Test Name Order Date [id number] SKIN/TISSUE 12/17/2021 [id number] SKIN/TISSUE 01/21/2022 [id number] SKIN/TISSUE 05/25/2022 66399 I&D ABSCESS- SIMPLE,SINGLE 023 51205 I&D ABSCESS- SIMPLE,SINGLE 022 Insurance Providers Payer Name Payer Address Payer Phone Subscriber Number Group Number Insured Name Patient Relationship to Insured Coverage Start Date Coverage End Date [employer] Medicare [id number] [address] [address] [place] [address] [id number] Alexandrea Renee Self - patient is the [...] ribs- CT -sameday went back 09/12/21 09/10/[address] [facility]-expiration rheumatoid lung-overnight 07/2021
--- OUTSIDE RECORDS SUMMARY | 2024-12-16 03:07 | XMS_ITS | Patient Health Record ---
Author Organization [facility] Address [address] [facility] [address] [place] [address] Care Team Providers Care Dustless Operator Name Role Phone Carlos Alberto Murray Primary Care Provider Eduardo Carr MD MSc, Juju Unavailable [phone] Johnny Blanco Unavailable Unavailable Allergies Allergen (clinical [...] Status W/U Status Risk Notes Problem Sciatica (79423395) Sciatica (724.3) Active confirmed Problem Lumbosacral spondylosis without myelopathy (29645897) Lumbosacral spondylosis without myelopathy (721.3) Active confirmed Problem Muscle pain (68836347) Unspecified myalgia and myositis (729.1) Active confirmed Problem Postherpetic polyneuropathy (74996532) 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) Active confirmed Problem Lumbosacral spondylosis without myelopathy (disorder) (08402103) Spondylosis without myelopathy or radiculopathy, lumbosacral region (M47.817) Active confirmed Problem Lumbosacral spondylosis without myelopathy (70484161) Other spondylosis, lumbar region (M47.896) Active confirmed Problem High risk drug monitoring status (744365191) long-term current use of opiate analgesic (Z79.891) Active confirmed Problem Lumbar spondylosis (344001047) Lumbar spondylosis (M47.816) Active confirmed Problem Left shoulder pain (5218942529) Left shoulder pain (M25.512) Active confirmed Problem Spondylosis (7715995) Spondylosis (M47.9) Active confirmed Problem Postherpetic neuralgia (2777404) Postherpetic neuralgia (B02.29) Active confirmed Problem Shoulder pain (13698788) Shoulder pain (M25.519) Active confirmed Plan Of [...] MEDICARE [place]GS [address] [place] [phone] [id number] Alexandrea Renee Self - patient is the insured Medical (General) History Medical History History ICD Code Depression Hypercholesterolemia Arthritis Fibromyalgia OCD peripheral neuropathy Surgical History Surgery Date(Month/Year) L knee replacement 2003 L knee revision 2010 Uterine Ablation Tubal Ligation R knee Meniscus repair 2011
--- OUTSIDE RECORDS SUMMARY | 2024-12-16 03:07 | XMS_ITS | Encounter Summary ---
Author Organization [facility] Address [address] [place] [address] Care Team Providers Care Divinity Teacher Name Role Phone Travis Holbrook MD Primary Care Provider [phone] Encounter Details Date Type Department Care Team (Late st Contact Info) Description 03/08/2024 Lab Requisition [facility] - Main Lab 299 [facility] [place] [address] Lavonne Irvin MD [address] [place], [place] [id number] Essential (primary) hypertension; Acute kidney failure, unspecified [...] mmol/L LAB CHEMISTRY METHOD 03/11/2024 2:58 PM [facility] Potassium 4.2 3.5 - 5.5 mmol/L LAB CHEMISTRY METHOD 03/11/2024 2:58 PM [facility] Chloride 105 96 - 110 mmol/L LAB CHEMISTRY METHOD 03/11/2024 2:58 PM [facility] CO2 32 21 - 32 mmol/L LAB CHEMISTRY METHOD 03/11/2024 2:58 PM [facility] Anion Gap 4 3 - 11 LAB CHEMISTRY METHOD 03/11/2024 2:58 PM [facility] Glucose 79 70 - 100 mg/dL LAB CHEMISTRY METHOD 03/11/2024 2:58 PM [facility] BUN 20 5 - 25 mg/dL LAB CHEMISTRY METHOD 03/11/2024 2:58 PM [facility] Creatinine 1.34(H) 0.50 - 1.10 mg/dL LAB CHEMISTRY METHOD 03/11/2024 2:58 PM [facility] eGFR 42(L) >=60 mL/min/1. 73m2 LAB CHEMISTRY METHOD 03/11/2024 2:58 PM [facility] Comment:Calculation based on the Chronic Kidney Disease Epidemiology Collaboration (CKD-EPI) equation refit without adjustment for race. BUN/Creatinine Ratio 14.9 LAB CHEMISTRY METHOD 03/11/2024 2:58 PM [facility] Calcium 9.1 8.5 - 10.5 mg/dL LAB CHEMISTRY METHOD 03/11/2024 2:58 PM [facility] Blood Venous blood specimen / Unknown Venipuncture / Unknown 03/11/2024 7:17 AM EST 03/11/2024 11:24 AM EST us Lavonne Irvin MD LAB BLOOD ORDERABLES Final Resul t [facility] [address] [place] [address], * (ABNORMAL) Complete blood count (03/11/2024 7:17 AM EST) [facility] Signature WBC 4.7(L) 4.8 - 10.8 K/mcL LAB HEMETOLOGY METHOD 03/11/2024 11:48 AM EST [facility] RBC 3.70(L) 3.80 - 4.80 M/mcL LAB HEMETOLOGY METHOD 03/11/2024 11:48 AM [facility] Hemoglobin 11.2(L) 11.5 - 16.0 g/dL LAB HEMETOLOGY METHOD 03/11/2024 11:48 AM [facility] Hematocrit 35.8 35.0 - 47.0 % LAB HEMETOLOGY METHOD 03/11/2024 11:48 AM [facility] MCV 97.0 79.0 - 98.0 FL LAB HEMETOLOGY METHOD 03/11/2024 11:48 AM EST [facility] MCH 30.4 27.0 - 32.0 pcg LAB HEMETOLOGY METHOD 03/11/2024 11:48 AM [facility] MCHC 31.3(L) 32.0 - 37.0 g/dL LAB HEMETOLOGY METHOD 03/11/2024 11:48 AM [facility] RDW 15.5(H) 11.0 - 15.0 % LAB HEMETOLOGY METHOD 03/11/2024 11:48 AM [facility] Platelets 166 130 - 400 K/mcL LAB HEMETOLOGY METHOD 03/11/2024 11:48 AM [facility] MPV 10.6 7.0 - 11.0 FL LAB HEMETOLOGY METHOD 03/11/2024 11:48 AM [facility] NRBC 0.0 <1.0 % LAB HEMETOLOGY METHOD 03/11/2024 11:48 AM EST [facility] NRBC Absolute 0.00 <0.10 K/mcL LAB HEMETOLOGY METHOD 03/11/2024 11:48 AM EST [facility] Blood Venous blood specimen / Unknown Venipuncture / Unknown 03/11/2024 7:17 AM EST 03/11/2024 11:24 AM EST us Lavonne Irvin MD LAB BLOOD ORDERABLES Final Resul t [facility] [address] [place] [address], documented in this encounter Visit Diagnoses Diagnosis Essential (primary) hypertension Unspecified essential hypertension Acute kidney failure, unspecified (CMS/HCC V24) Acute kidney failure, unspecified documented in this encounter Care Teams Divinity Teacher Relationship Specialty Start Date End Date Travis Holbrook MD [address] [place] [address], [phone] PCP - General Family Medicine 02/28/24 documented as of this encounter
--- OUTSIDE RECORDS SUMMARY | 2024-12-16 03:07 | XMS_ITS | Encounter Summary ---
Author Organization [facility] Address [address] [place] [address] Care Team Providers Care Fence Repairman Name Role Phone Travis Holbrook MD Primary Care Provider [phone] Encounter Details Date Type Department Care Team (Late st Contact Info) Description 07/19/2024 Lab Requisition [facility] - Main Lab 299 [facility] [place] [address] Travis Holbrook MD [address] [place] [address] 204 [facility] [address] Muscle weakness (generalized); Emphysema, [...] mmol/L LAB CHEMISTRY METHOD 07/22/2024 11:53 AM [facility] Potassium 3.7 3.5 - 5.5 mmol/L LAB CHEMISTRY METHOD 07/22/2024 11:53 AM [facility] Chloride 103 96 - 110 mmol/L LAB CHEMISTRY METHOD 07/22/2024 11:53 AM [facility] CO2 32 21 - 32 mmol/L LAB CHEMISTRY METHOD 07/22/2024 11:53 AM [facility] Anion Gap 8 3 - 11 LAB CHEMISTRY METHOD 07/22/2024 11:53 AM [facility] Glucose 63(L) 70 - 100 mg/dL LAB CHEMISTRY METHOD 07/22/2024 11:53 AM [facility] BUN 24 5 - 25 mg/dL LAB CHEMISTRY METHOD 07/22/2024 11:53 AM [facility] Creatinine 1.30(H) 0.50 - 1.10 mg/dL LAB CHEMISTRY METHOD 07/22/2024 11:53 AM [facility] eGFR 44(L) >=60 mL/min/1. 73m2 LAB CHEMISTRY METHOD 07/22/2024 11:53 AM [facility] Comment:Calculation based on the Chronic Kidney Disease Epidemiology Collaboration (CKD-EPI) equation refit without adjustment for race. BUN/Creatinine Ratio 18.5 LAB CHEMISTRY METHOD 07/22/2024 11:53 AM [facility] Calcium 8.7 8.5 - 10.5 mg/dL LAB CHEMISTRY METHOD 07/22/2024 11:53 AM [facility] Blood Venous blood specimen / Unknown Venipuncture / Unknown 07/22/2024 5:17 AM EDT 07/22/2024 9:39 AM EDT us Travis Holbrook MD LAB BLOOD ORDERABLES Final Resul t [facility] [address] [place] [address], [place] [phone] * (ABNORMAL) Complete blood count (07/22/2024 5:17 AM EDT) WBC 5.3 4.8 - 10.8 K/mcL LAB HEMETOLOGY METHOD 07/22/2024 10:[address] [facility] RBC 4.00 3.80 - 4.80 M/mcL LAB HEMETOLOGY METHOD 07/22/2024 10:[address] [facility] Hemoglobin 11.6 11.5 - 16.0 g/dL LAB HEMETOLOGY METHOD 07/22/2024 10:02 AM [facility] Hematocrit 37.5 35.0 - 47.0 % LAB HEMETOLOGY METHOD 07/22/2024 10:[address] [facility] MCV 94.9 79.0 - 98.0 FL LAB HEMETOLOGY METHOD 07/22/2024 10:[address] [facility] MCH 29.4 27.0 - 32.0 pcg LAB HEMETOLOGY METHOD 07/22/2024 10:02 AM [facility] MCHC 30.9(L) 32.0 - 37.0 g/dL LAB HEMETOLOGY METHOD 07/22/2024 10:[address] [facility] RDW 15.4(H) 11.0 - 15.0 % LAB [facility]OLOGY [facility] 07[facility]22[facility]24 [facility] 142 130 - 400 K/mcL [facility]EMETOLOGY METHOD 07/22[facility]2024 10[facility] MPV 11.1(H) 7.0 - 11.0 FL LAB HEMETOLOGY METHOD 07/22/2024 10:[address] [facility] NRBC 0.0 <1.0 % LAB HEMETOLOGY METHOD 07/22/2024 10:[address] [facility] NRBC Absolute 0.00 <0.10 K/mcL LAB HEMETOLOGY METHOD 07/22/2024 10:[address] [facility] Blood Venous blood specimen / Unknown Venipuncture / Unknown 07/22/2024 5:17 AM EDT 07/22/2024 9:39 AM EDT us Travis Holbrook MD LAB BLOOD ORDERABLES Final Resul t [facility] [address] [place] [address], documented in this encounter Visit Diagnoses Diagnosis Muscle weakness (generalized) Emphysema, unspecified (CMS/HCC V24, CMS/HCC V28) documented in this encounter Care Teams Fence Repairman Relationship Specialty Start Date End Date Travis Holbrook MD [address] [place] [address], [phone] PCP - General Family Medicine 02/28/24 documented as of this encounter
--- OUTSIDE RECORDS SUMMARY | 2024-12-16 03:07 | XMS_ITS | Encounter Summary ---
Author Organization [facility] Address [address] [place] [address] Care Team Providers Care Leaf Sorter Name Role Phone Travis Holbrook MD Primary Care Provider [phone] Encounter Details Date Type Department Care Team (Late st Contact Info) Description 07/12/2024 Lab Requisition [facility] - Main Lab 299 [facility] [place] [address] Travis Holbrook MD [address] [place] [address] 204 [facility] [address] Muscle weakness (generalized); Emphysema, unspecified [...] * Magnesium (07/15/2024 5:26 AM EDT) Pathologist [facility] Magnesium 2.1 1.9 - 2.6 mg/dL LAB CHEMISTRY METHOD 07/15/2024 2:11 PM EDT [facility] Blood Venous blood specimen / Unknown Venipuncture / Unknown 07/15/2024 5:26 AM EDT 07/15/2024 10:23 AM EDT us Travis Holbrook MD LAB BLOOD ORDERABLES Final Resul t [facility] [address] [place] [address], * (ABNORMAL) Basic metabolic panel (07/15/2024 5:26 AM EDT) [facility] Sodium 143 133 - 145 mmol/L LAB CHEMISTRY METHOD 07/15/2024 2:29 PM [facility] Potassium 3.8 3.5 - 5.5 mmol/L LAB CHEMISTRY METHOD 07/15/2024 2:29 PM [facility] Chloride 102 96 - 110 mmol/L LAB CHEMISTRY METHOD 07/15/2024 2:29 PM T [facility] CO2 30 21 - 32 mmol/L LAB CHEMISTRY METHOD 07/15/2024 2:29 PM [facility] Anion Gap 11 3 - 11 LAB CHEMISTRY METHOD 07/15/2024 2:29 PM [facility] Glucose 65(L) 70 - 100 mg/dL LAB CHEMISTRY METHOD 07/15/2024 2:29 PM [facility] BUN 19 5 - 25 mg/dL LAB CHEMISTRY METHOD 07/15/2024 2:29 PM EDT [facility] Creatinine 1.17(H) 0.50 - 1.10 mg/dL LAB CHEMISTRY METHOD 07/15/2024 2:29 PM EDT [facility] eGFR 50(L) >=60 mL/min/1. 73m2 LAB CHEMISTRY METHOD 07/15/2024 2:29 PM EDT [facility] Comment:Calculation based on the Chronic Kidney Disease Epidemiology Collaboration (CKD-EPI) equation refit without adjustment for race. BUN/Creatinine Ratio 16.2 LAB CHEMISTRY METHOD 07/15/2024 2:29 PM EDT [facility] Calcium 9.3 8.5 - 10.5 mg/dL LAB CHEMISTRY METHOD 07/15/2024 2:29 PM EDT [facility] Blood Venous blood specimen / Unknown Venipuncture / Unknown 07/15/2024 5:26 AM EDT 07/15/2024 10:23 AM EDT us Travis Holbrook MD LAB BLOOD ORDERABLES Final Resul t [facility] [address] [place] [address], * (ABNORMAL) Complete blood count (07/15/2024 5:26 AM EDT) WBC 5.0 4.8 - 10.8 K/mcL LAB HEMETOLOGY METHOD 07/15/2024 11:34 AM EDT [facility] RBC 3.90 3.80 - 4.80 M/mcL LAB HEMETOLOGY METHOD 07/15/2024 11:34 AM EDT [facility] Hemoglobin 11.6 11.5 - 16.0 g/dL LAB HEMETOLOGY METHOD 07/15/2024 11:34 AM EDT [facility] Hematocrit 37.1 35.0 - 47.0 % LAB HEMETOLOGY METHOD 07/15/2024 11:34 AM EDT [facility] MCV 96.1 79.0 - 98.0 FL LAB HEMETOLOGY METHOD 07/15/2024 11:34 AM EDT [facility] MCH 30.1 27.0 - 32.0 pcg LAB HEMETOLOGY METHOD 07/15/2024 11:34 AM EDT [facility] MCHC 31.3(L) 32.0 - 37.0 g/dL LAB HEMETOLOGY METHOD 07/15/2024 11:34 AM EDT [facility] RDW 15.7(H) 11.0 - 15.0 % LAB HEMETOLOGY METHOD 07/15/2024 11:34 AM T [facility] Platelets 204 130 - 400 K/mcL LAB HEMETOLOGY METHOD 07/15/2024 11:34 AM EDT [facility] MPV 11.0 7.0 - 11.0 FL LAB HEMETOLOGY METHOD 07/15/2024 11:34 AM EDT [facility] NRBC 0.0 <1.0 % LAB HEMETOLOGY METHOD 07/15/2024 11:34 AM T [facility] NRBC Absolute 0.00 <0.10 K/mcL LAB HEMETOLOGY METHOD 07/15/2024 11:34 AM [facility] Blood Venous blood specimen / Unknown Venipuncture / Unknown 07/15/2024 5:26 AM EDT 07/15/2024 10:23 AM EDT us Travis Holbrook MD LAB BLOOD ORDERABLES Final Resul t [facility] [address] [place] [address], documented in this encounter Visit Diagnoses Diagnosis Muscle weakness (generalized) Emphysema, unspecified (CMS/HCC V24, CMS/HCC V28) Hypokalemia Hypopotassemia documented in this encounter Care Teams Leaf Sorter Relationship Specialty Start Date End Date Travis Holbrook MD [address] [place] [address], [phone] PCP - General Family Medicine 02/28/24 documented as of this encounter
--- OUTSIDE RECORDS SUMMARY | 2024-12-16 03:07 | XMS_ITS | Encounter Summary ---
Author Organization [facility] Address [address] [place] [address] Care Team Providers Care Marketing Producer Name Role Phone Travis Holbrook MD Primary Care Provider [phone] Encounter Details Date Type Department Care Team (Late st Contact Info) Description 07/03/2024 Lab Requisition [facility] - Main Lab 299 [facility] [place] [address] Travis Holbrook MD [address] [place] [address] 204 [facility] [address] Other terminal clerk (current) drug therapy Social History Tobacco Use [...] PANEL Routine 07/03/2024 11:40 AM EDT Other long-term (current) drug therapy documented in this encounter Results * (ABNORMAL) Comprehensive metabolic panel (07/03/2024 11:40 AM EDT) Sodium 134 133 - 145 mmol/L LAB CHEMISTRY METHOD 07/03/2024 2:18 PM EDT [facility] Potassium 4.7 3.5 - 5.5 mmol/L LAB CHEMISTRY METHOD 07/03/2024 2:18 PM [facility] Chloride 99 96 - 110 mmol/L LAB CHEMISTRY METHOD 07/03/2024 2:18 PM [facility] CO2 28 21 - 32 mmol/L LAB CHEMISTRY METHOD 07/03/2024 2:18 PM [facility] Anion Gap 7 3 - 11 LAB CHEMISTRY METHOD 07/03/2024 2:18 PM [facility] Glucose 79 70 - 100 mg/dL LAB CHEMISTRY METHOD 07/03/2024 2:18 PM [facility] BUN 19 5 - 25 mg/dL LAB CHEMISTRY METHOD 07/03/2024 2:18 PM [facility] Creatinine 1.09 0.50 - 1.10 mg/dL LAB CHEMISTRY METHOD 07/03/2024 2:18 PM [facility] eGFR 54(L) >=60 mL/min/1. 73m2 LAB CHEMISTRY METHOD 07/03/2024 2:18 PM [facility] Comment:Calculation based on the Chronic Kidney Disease Epidemiology Collaboration (CKD-EPI) equation refit without adjustment for race. BUN/Creatinine Ratio 17.4 LAB CHEMISTRY METHOD 07/03/2024 2:18 PM [facility] Calcium 9.2 8.5 - 10.5 mg/dL LAB CHEMISTRY METHOD 07/03/2024 2:18 PM [facility] AST (SGOT) 23 10 - 42 unit/L LAB CHEMISTRY METHOD 07/03/2024 2:18 PM [facility] ALT (SGPT) 33 10 - 60 unit/L LAB CHEMISTRY METHOD 07/03/2024 2:18 PM [facility] Alkaline Phosphatase 129(H) 42 - 121 unit/L LAB CHEMISTRY METHOD 07/03/2024 2:18 PM [facility] Total Protein 6.6 6.0 - 8.0 g/dL LAB CHEMISTRY METHOD 07/03/2024 2:18 PM EDT [facility] Albumin 2.6(L) 3.2 - 5.0 g/dL LAB CHEMISTRY METHOD 07/03/2024 2:18 PM EDT [facility] Total Bilirubin 0.4 0.0 - 1.4 mg/dL LAB CHEMISTRY METHOD 07/03/2024 2:18 PM EDT [facility] Blood Venous blood specimen / Unknown 07/03/2024 11:40 AM EDT 07/03/2024 1:16 PM EDT us Travis Holbrook MD LAB BLOOD ORDERABLES Final Resul t [facility] [address] [place] [address], documented in this encounter Visit Diagnoses Diagnosis Other terminal clerk (current) drug therapy documented in this encounter Care Teams Marketing Producer Relationship Specialty Start Date End Date Travis Holbrook MD [address] [place] [address] 204 [place], [phone] PCP - General Family Medicine 02/28/24 documented as of this encounter
--- OUTSIDE RECORDS SUMMARY | 2024-12-16 03:07 | XMS_ITS | Encounter Summary ---
Author Organization [facility] Address [address] [place] [address] Care Team Providers Care Local Company Flatbed Truck Driver Name Role Phone Travis Holbrook MD Primary Care Provider [phone] Encounter Details Date Type Department Care Team (Late st Contact Info) Description 03/07/2024 Lab Requisition [facility] - Main Lab 299 [facility] [place] [address] Lavonne Irvin MD [address] [place], [place] [phone] Essential (primary) hypertension; Acute kidney failure, unspecified [...] mmol/L LAB CHEMISTRY METHOD 03/07/2024 11:23 AM [facility] Potassium 4.5 3.5 - 5.5 mmol/L LAB CHEMISTRY METHOD 03/07/2024 11:23 AM [facility] Chloride 106 96 - 110 mmol/L LAB CHEMISTRY METHOD 03/07/2024 11:23 AM [facility] CO2 29 21 - 32 mmol/L LAB CHEMISTRY METHOD 03/07/2024 11:23 AM [facility] Anion Gap 5 3 - 11 LAB CHEMISTRY METHOD 03/07/2024 11:23 AM [facility] Glucose 78 70 - 100 mg/dL LAB CHEMISTRY METHOD 03/07/2024 11:23 AM [facility] BUN 25 5 - 25 mg/dL LAB CHEMISTRY METHOD 03/07/2024 11:23 AM [facility] Creatinine 1.27(H) 0.50 - 1.10 mg/dL LAB CHEMISTRY METHOD 03/07/2024 11:23 AM [facility] eGFR 45(L) >=60 mL/min/1. 73m2 LAB CHEMISTRY METHOD 03/07/2024 11:23 AM [facility] Comment:Calculation based on the Chronic Kidney Disease Epidemiology Collaboration (CKD-EPI) equation refit without adjustment for race. BUN/Creatinine Ratio 19.7 LAB CHEMISTRY METHOD 03/07/2024 11:23 AM [facility] Calcium 8.6 8.5 - 10.5 mg/dL LAB CHEMISTRY METHOD 03/07/2024 11:23 AM [facility] Blood Venous blood specimen / Unknown Venipuncture / Unknown 03/07/2024 6:00 AM EST 03/07/2024 10:35 AM EST us Lavonne Irvin MD LAB BLOOD ORDERABLES Final Resul t [facility] [address] [place] [address], * (ABNORMAL) Complete blood count (03/07/2024 6:00 AM EST) [facility] Signature WBC 4.8 4.8 - 10.8 K/mcL LAB HEMETOLOGY METHOD 03/07/2024 10:54 AM EST [facility] RBC 3.70(L) 3.80 - 4.80 M/mcL LAB HEMETOLOGY METHOD 03/07/2024 10:54 AM [facility] Hemoglobin 11.1(L) 11.5 - 16.0 g/dL LAB HEMETOLOGY METHOD 03/07/2024 10:54 AM [facility] Hematocrit 34.6(L) 35.0 - 47.0 % LAB HEMETOLOGY METHOD 03/07/2024 10:54 AM [facility] MCV 94.3 79.0 - 98.0 FL LAB HEMETOLOGY METHOD 03/07/2024 10:54 AM [facility] MCH 30.2 27.0 - 32.0 pcg LAB HEMETOLOGY METHOD 03/07/2024 10:54 AM [facility] MCHC 32.1 32.0 - 37.0 g/dL LAB HEMETOLOGY METHOD 03/07/2024 10:54 AM [facility] RDW 15.2(H) 11.0 - 15.0 % LAB HEMETOLOGY METHOD 03/07/2024 10:54 AM [facility] Platelets 211 130 - 400 K/mcL LAB HEMETOLOGY METHOD 03/07/2024 10:54 AM [facility] MPV 10.3 7.0 - 11.0 FL LAB HEMETOLOGY METHOD 03/07/2024 10:54 AM [facility] NRBC 0.0 <1.0 % LAB HEMETOLOGY METHOD 03/07/2024 10:54 AM EST [facility] NRBC Absolute 0.00 <0.10 K/mcL LAB HEMETOLOGY METHOD 03/07/2024 10:54 AM EST [facility] Blood Venous blood specimen / Unknown Venipuncture / Unknown 03/07/2024 6:00 AM EST 03/07/2024 10:35 AM EST us Lavonne Irvin MD LAB BLOOD ORDERABLES Final Resul t [facility] [address] [place] [address], documented in this encounter Visit Diagnoses Diagnosis Essential (primary) hypertension Unspecified essential hypertension Acute kidney failure, unspecified (CMS/HCC V24) Acute kidney failure, unspecified documented in this encounter Care Teams Local Company Flatbed Truck Driver Relationship Specialty Start Date End Date Travis Holbrook MD [address] [place] [address] 204 [place], [phone] PCP - General Family Medicine 02/28/24 documented as of this encounter
--- OUTSIDE RECORDS SUMMARY | 2024-12-16 03:07 | XMS_ITS | Encounter Summary ---
Author Organization [facility] Address [address] [place] [address] Care Team Providers Care Gift Shop Clerk Name Role Phone Travis Holbrook MD Primary Care Provider [phone] Encounter Details Date Type Department Care Team (Late st Contact Info) Description 07/05/2024 Lab Requisition [facility] - Main Lab 299 [facility] [place] [address] Travis Holbrook MD [address] [place] [address] 204 [facility] [address] Muscle weakness (generalized); Emphysema, unspecified [...] mmol/L LAB CHEMISTRY METHOD 07/08/2024 8:22 AM [facility] Potassium 3.9 3.5 - 5.5 mmol/L LAB CHEMISTRY METHOD 07/08/2024 8:22 AM [facility] Comment:Hemolysis present Chloride 103 96 - 110 mmol/L LAB CHEMISTRY METHOD 07/08/2024 8:22 AM [facility] CO2 31 21 - 32 mmol/L LAB CHEMISTRY METHOD 07/08/2024 8:22 AM [facility] Anion Gap 6 3 - 11 LAB CHEMISTRY METHOD 07/08/2024 8:22 AM [facility] Glucose 97 70 - 100 mg/dL LAB CHEMISTRY METHOD 07/08/2024 8:22 AM [facility] Comment:Lipemia present BUN 26(H) 5 - 25 mg/dL LAB CHEMISTRY METHOD 07/08/2024 8:22 AM [facility] Creatinine 1.30(H) 0.50 - 1.10 mg/dL LAB CHEMISTRY METHOD 07/08/2024 8:22 AM [facility] eGFR 44(L) >=60 mL/min/1. 73m2 LAB CHEMISTRY METHOD 07/08/2024 8:22 AM [facility] Comment:Calculation based on the Chronic Kidney Disease Epidemiology Collaboration (CKD-EPI) equation refit without adjustment for race. BUN/Creatinine Ratio 20.0 LAB CHEMISTRY METHOD 07/08/2024 8:22 AM [facility] Calcium 9.0 8.5 - 10.5 mg/dL LAB CHEMISTRY METHOD 07/08/2024 8:22 AM [facility] Blood Venous blood specimen / Unknown Venipuncture / Unknown 07/08/2024 5:44 AM EDT 07/08/2024 7:28 AM EDT us Travis Holbrook MD LAB BLOOD ORDERABLES Final Resul t [facility] [address] [place] [address], * (ABNORMAL) Complete blood count (07/08/2024 5:44 AM EDT) WBC 6.1 4.8 - 10.8 K/mcL LAB HEMETOLOGY METHOD 07/08/2024 8:03 AM EDT [facility] RBC 3.90 3.80 - 4.80 M/mcL LAB HEMETOLOGY METHOD 07/08/2024 8:03 AM [facility] Hemoglobin 11.7 11.5 - 16.0 g/dL LAB HEMETOLOGY METHOD 07/08/2024 8:03 AM [facility] Hematocrit 37.1 35.0 - 47.0 % LAB HEMETOLOGY METHOD 07/08/2024 8:03 AM [facility] MCV 95.9 79.0 - 98.0 FL LAB HEMETOLOGY METHOD 07/08/2024 8:03 AM [facility] MCH 30.2 27.0 - 32.0 pcg LAB HEMETOLOGY METHOD 07/08/2024 8:03 AM [facility] MCHC 31.5(L) 32.0 - 37.0 g/dL LAB HEMETOLOGY METHOD 07/08/2024 8:03 AM [facility] RDW 15.9(H) 11.0 - 15.0 % LAB HEMETOLOGY METHOD 07/08/2024 8:03 AM [facility] Platelets 223 130 - 400 K/mcL LAB HEMETOLOGY METHOD 07/08/2024 8:03 AM [facility] MPV 10.9 7.0 - 11.0 FL LAB HEMETOLOGY METHOD 07/08/2024 8:03 AM EDT [facility] NRBC 0.0 <1.0 % LAB HEMETOLOGY METHOD 07/08/2024 8:03 AM EDT [facility] NRBC Absolute 0.00 <0.10 K/mcL LAB HEMETOLOGY METHOD 07/08/2024 8:03 AM EDT [facility] Blood Venous blood specimen / Unknown Venipuncture / Unknown 07/08/2024 5:44 AM EDT 07/08/2024 7:28 AM EDT us Travis Holbrook MD LAB BLOOD ORDERABLES Final Resul t [facility] [address] [place] [address], documented in this encounter Visit Diagnoses Diagnosis Muscle weakness (generalized) Emphysema, unspecified (CMS/HCC V24, CMS/HCC V28) documented in this encounter Care Teams Gift Shop Clerk Relationship Specialty Start Date End Date Travis Holbrook MD [address] [place] [address], [phone] PCP - General Family Medicine 02/28/24 documented as of this encounter
--- OUTSIDE RECORDS SUMMARY | 2024-12-16 03:07 | XMS_ITS | Clinical Summary ---
Author Organization [address] Address [address] [place] [phone] Phone Care Team Providers Care Mental Health Nurse Practitioner Name Role Phone Travis Holbrook MD Primary Care Provider [phone] Allergies Active Allergy Reactions Criticality Noted Date Comments Adhesive Tape-Silicones Low 02/06/2017 Tape Other Reaction(s): Rash/Dermatitis Chlorthalidone Medium 08/08/2017 Hypokalemia Hydrochlorothiazide High 02/07/2017 Hyponatremia Lisinopril Anaphylaxis,Swell ing High 02/06/2017 anaphylaxis, 2017 [facility] Uaqykjk-Gjw-Dgl Reductase Inhibitors 02/06/2017 Statins [Hmg-coa-r Inhibitors] Leg weakness leg pain Sulfa (Sulfonamide Antibiotics) Low 02/06/2017 Sulfa Drugs Other Reaction(s): Rash/Dermatitis Tramadol Low 02/06/2017 Other Reaction(s): Rash/Dermatitis serotonin syndrome , while she was also taking Cymbalta, 2017 Tremor Active Problems Problem Noted Date Diagnosed Date Chronic foot ulcer ([facility] V24, [facility] V28) Chronic patellofemoral pain of left knee 023 Difficult intubation 08/25/2022 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 Gait instability 08/25/2022 Polycythemia vera ([facility] V24, [facility] V28) 03/2022 Post-traumatic osteoarthritis of right knee 03/2022 Proximal muscle weakness 08/25/2022 Right medial tibial plateau fracture, closed, initial encounter 08/25/2022 Urinary incontinence 08/25/2022 Anxiety 08/24/2022 Bronchiectasis ([facility] V24, [facility] V28) 2022 Chronic lower back pain 08/24/2022 COPD (chronic obstructive pu lmonary disease) ([facility] V24, [facility] V28) 08/24/2022 Depression 08/24/2022 GERD (gastroesophageal reflux disease) Jose's thyroiditis 08/24/2022 HLD (hyperlipidemia) 08/24/2022 Lymphedema 08/24/2022 Polycythemia 08/24/2022 Rheumatoid arthritis ([facility] V24, [facility] V28) 08/24/2022 Rheumatoid lung ([facility] V24, [facility] V28) 08/24 Vitamin D deficiency 08/24/2022 Lymphedema of left lower extremity 05/13/2020 Overview (04/19/2024): Last Assessment & Plan: Stable at baseline. Takes Lasix as needed for extra leg swelling present. Bronchiectasis without compl ication ([facility] V24, [facility] V28) 01/10/2019 Overview (04/19/2024): Last Assessment & [...] ng multiple sites with positive rheumatoid factor ([facility] V24, [facility] V28) 10/09/2017 Overview (04/19/2024): Last Assessment & Plan: Stable at baseline, although some increased pain recently in right knee due to insufficiency fracture. F/u with Dr. Hair as scheduled. 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 Ordonez of pulmonology. Continue current therapies. Centrilobular emphysema ([facility] V24, [facility] V2 8) 08/23/2017 Overview (04/19/2024): Last Assessment [...] Site/Laterality Comments OTHER SURGICAL HISTORY N/A PROCEDURE: [place] HYSTEROSCOPY ENDOMETRIAL ABLATION TUBAL LIGATION PROCEDURE: HISTORICAL [...] LAB CHEMISTRY METHOD 07/22/2024 11:53 AM EDT [facility] Potassium 3.7 3.5 - 5.5 [...] Resul t [facility] [address] [place] [address], * Lipid panel (07/06/2022) LDL/HDL Ratio 0 [...] Most Recently Relevant to Health Maintenance Insurance [address] [place] [id number] [place]ICA[place] [employer] MEDICARE Care Teams Mental Health Nurse Practitioner Relationship Specialty Start Date End Date Travis Holbrook MD [address] [place] [address] [phone], [phone] PCP - General Family Medicine 02/28/24
[2024-12-16] MEDS: Lactated Ringers 1,000 ML 999 ML IV (04:34)
--- NOTE | 2024-12-16 04:58 | ED.NAVMDI ---
HPI - Nausea/Vomiting/Diarrhea General Chief complaint: Nausea/Vomiting/Diarrhea Stated complaint: N/V , body aches, chills Time Seen by Provider: 12/16/24 02:55 Source: patient and EMS Mode of arrival: EMS Limitations: no limitations History of Present Illness ED Provider: Dr. Santa King HPI Narrative: 74-year-old female with a history of hypertension, recurrent ESBL UTI presenting with vomiting that began yesterday. Admits that when she has a urinary tract infection, she often has nausea and vomiting. States that she has no dysuria or hematuria. Denies associated diarrhea. No hematochezia or melena. No reported fevers. She did recently finish a course of meropenem about 2 weeks ago for an ESBL UTI. This has been an ongoing issue for her. She sees a urologist and takes methanamine to prevent them. Denies flank pain. Denies chest pain or difficulty breathing. Has been feeling otherwise well. Related Data Home Medications ?Medication ?Instructions ?Recorded ?Confirmed bupropion HCl 300 mg 24 hr tablet, 300 mg PO DAILY@0908/23/21 11/19/24 extended release duloxetine 60 mg capsule,delayed 60 mg PO DAILY 08/23/21 11/19/24 release levothyroxine 50 mcg tablet 50 mcg PO DAILY@0608/23/21 11/19/24 methotrexate sodium 2.5 mg tablet 25 mg PO MO 08/23/21 11/19/24 omeprazole 40 mg capsule,delayed 40 mg PO DAILY@0608/23/21 11/19/24 release prednisone 1 mg tablet 4 mg PO DAILY 08/23/21 11/19/24 Held on 11/21/24. Instructions: Resume on 11/24/24. pregabalin 200 mg capsule 200 mg PO BID 01/07/23 11/19/24 folic acid 1 mg tablet 2 mg PO DAILY 10/13/23 11/19/24 bupropion HCl 150 mg 24 hr tablet, 150 mg PO DAILY@0911/25/23 11/19/24 extended release acetaminophen 325 mg tablet 650 mg PO Q4H PRN Moderate Pain 03/04/24 11/19/24 (Tylenol) (Scale Score 5-6) ibuprofen 200 mg tablet 600 mg PO Q6H PRN Pain 05/03/24 11/19/24 melatonin 10 mg tablet 10 mg PO BEDTIME PRN Sleep 05/03/24 11/19/24 multivitamin 1 tab PO DAILY 05/03/24 11/19/24 atenolol 25 mg tablet 50 mg PO DAILY 08/29/24 11/19/24 fluticasone propionate 50 1 spray intranasal BID PRN Allergy 08/29/24 11/19/24 mcg/actuation nasal Symptoms spray,suspension biotin 1 mg tablet 1 mg PO DAILY 10/07/24 11/19/24 furosemide 40 mg tablet 40 mg PO DAILY 10/07/24 11/19/24 Previous Rx's ?Medication ?Instructions ?Recorded ondansetron 4 mg disintegrating 4 mg PO Q8H PRN nausea and 08/02/23 tablet vomiting #10 tabs doxazosin 2 mg tablet 2 mg PO BEDTIME #30 tabs 10/17/23 oxycodone 20 mg tablet 20 mg PO Q4H PRN pain (scale score 02/27/24 7-10) #20 tabs ascorbic acid (vitamin C) 1,000 mg 1,000 mg PO DAILY 90 days #90 caps 10/08/24 capsule methenamine hippurate 1 gram tablet 1 g PO DAILY 90 days #90 tabs 10/08/24 ertapenem 1 gram solution for 1 g IV DAILY 12 days 11/21/24 injection prednisone 50 mg tablet 50 mg PO DAILY #2 tabs 11/21/24 Allergies Allergy/AdvReac Type Severity Reaction Status Date / Time lisinopril (LISINOPRIL) Allergy Severe ANAPHYLAXIS Verified 12/16/24 02:12 Sulfa (Sulfonamide Allergy Intermediate RASH Verified 12/16/24 02:12 Antibiotics) (SULFA (SULFONAMIDE ANTIBIOTICS)) tramadol (TRAMADOL) Allergy Intermediate RASH Verified 12/16/24 02:12 Kgszsis-YJQ-MmC Reductase Allergy Rash Verified 12/16/24 02:12 Inhibitor (Hlozjvi-Gfd-Cpd Reductase Inhibitor) hydrochlorothiazide (HCTZ) AdvReac Unknown ABNORMAL Verified 12/16/24 02:12 LABS? Review of Systems Review of Systems: as per HPI, full review of systems performed and negative but for the above mentioned pertinent positives and negatives. [facility] Past Medical History Medical History Sepsis Bacteriuria Urinary tract infection due to extended-spectrum beta lactamase (ESBL) producing Escherichia coli History of ESBL E. coli infection Osteomyelitis COPD (chronic obstructive pulmonary disease) Rheumatoid lung Hypothyroidism Congestive heart failure Fibromyalgia HTN (hypertension) Depression Rheumatoid arthritis Surgical History Hx of prior ablation treatment Knee joint replacement status Family History Family History Father No problems noted. Other Heart disease Social History Social History Household Members: None Household Members Other:: 0 Housing: Apartment Do you presently have visiting nurse or other home services: Yes (outside care takers) Unable to assess alcohol history related to: Unable to respond Alcohol intake: never Comment: bedside commode Patient Tobacco Use Status: Former Tobacco user Tobacco use type: Cigarette Smoked in Last 30 Days: No e-Cigarette/Vaping Use: Never Used Second Hand Smoke Exposure: No Use of substances other than those prescribed or required for medical reasons: No Advance Directives: Yes Advance Directives on File: Yes Advance Directives Date on File: 10/19/23 Nutrition Risks: No Nutritional Risk service: No Physical Exam Exam: Exam: GENERAL: Chronically ill-Appearing, appears uncomfortable. SKIN: Normal skin color for ethnicity, warm, dry, no rashes noted. HEENT:? Normocephalic, atraumatic, no stridor, dry mucous membranes, dentition intact, EOMI. NECK: Soft, supple, full ROM, midline structures nontender, no step-offs, no deformities, no lymphadenopathy. CHEST: Heart regular tachycardia, no murmurs, symmetric chest rise and fall. PULMONARY: Clear to auscultation bilaterally, diminished at the bases, no labored breathing, no wheezes/rhales/rhonchi. ABDOMINAL: Soft, nondistended, nontender, positive bowel sounds in all quadrants. : Deferred. MUSCULOSKELETAL: Normal tone, full range of motion, no deformities, no peripheral edema. NEURO: Alert and oriented x3, CN II through XII intact, equal strength and sensation bilateral upper and lower extremities, no focal neurologic deficits.? PSYCHIATRIC: Flat affect, fluid speech, good eye contact and appropriate demeanor. Vital Signs: Vital Signs: Last Vital Signs Temp 98.2 F 12/16/24 07:12 Pulse 67 12/16/24 07:12 Resp 12 12/16/24 07:12 BP 162/73 H 12/16/24 07:12 Pulse Ox 98 12/16/24 07:12 O2 Del Method Room Air 12/16/24 07:12 BMI result Body Mass Index 32.9 Medications Administered Discontinued Medications Generic Name Dose Route Start Last Admin Trade Name Freq PRN Reason Stop Dose Admin Diphenhydramine HCl 25 mg 12/16/24 04:12 12/16/24 04:34 Diphenhydramine Hcl 50 Mg/Ml Vial IVPUSH 12/16/24 04:13 25 mg ONCE ONE Administration Haloperidol Lactate 5 mg 12/16/24 04:12 12/16/24 04:34 Haloperidol Lactate 5 Mg/Ml Vial IVPUSH 12/16/24 04:13 5 mg STAT STA Administration Hydromorphone HCl 1 mg 12/16/24 05:03 12/16/24 05:10 Hydromorphone Hcl 1 Mg/Ml Syringe IVPUSH 12/16/24 05:04 1 mg ONCE ONE Administration Protocol Lactated Ringer's 1,000 mls @ 999 mls/hr 12/16/24 04:12 12/16/24 06:08 Lr IV 12/16/24 05:12 Infused .Q1H1M ONE Infusion Midazolam HCl 3 mg 12/16/24 02:55 12/16/24 03:07 Midazolam Hcl 2 Mg/2 Ml Vial IVPUSH 12/16/24 02:56 3 mg ONCE ONE Administration Morphine Sulfate 4 mg 12/16/24 02:55 12/16/24 03:07 Morphine Sulfate 4 Mg/Ml Cartridge IVPUSH 12/16/24 02:56 4 mg ONCE ONE Administration Protocol Medical Decision Making Medical Decision Making MDM Narrative: Patient presents today with a chief complaint of vomiting. Differential diagnosis includes surgical emergency such as obstruction or enteritis, as well as hyperglycemia, acidosis, food or drug ingestion, pancreatitis, CVA, allergic reaction such as anaphylaxis, cannabis hyperemesis syndrome or cyclic vomiting syndrome, among many others. Patient is not showing signs of acute dehydration or hemodynamic instability. They are having associated abdominal pain. Broad-based work-up was initiated based on above history and physical exam. Urinalysis is showing recurrent urinary tract infection. Plan for a dose of Mirapex him, admission to hospitalist for presumed recurrent ESBL UTI. Discussed with hospitalist who agrees with plan for admission. Patient understands and agrees with the plan as well. Admitted in guarded condition. Differential Diagnosis Differential Diagnoses: The differential diagnosis associated with the presentation includes (As above) Admission/Observation Consideration of admission/observation: Escalation of care including admission/observation considered Consult Healthcare Provider Management of the patient was discussed with: Hospitalist Lab Data MDM Lab Attestation statement: I reviewed the patient's lab results. 12/16/24 06:17 12/16/24 06:17 Labs: Lab Results 12/16/24 12/16/24 Range/Units 02:25 04:56 WBC 7.4 (4.8-10.8) X10*3/uL RBC 4.58 D (4.20-5.50) X10*6/uL Hgb 13.9 D (12.0-16.0) g/dl Hct 40.6 (37.0-47.0) % MCV 88.6 (80.0-98.0) fL MCH 30.3 (27.0-33.0) pg MCHC 34.2 (31.0-35.0) g/dl RDW 14.6 (11.0-16.0) % Plt Count 192 D (160-400) X10*3/uL MPV 10.0 (9.4-12.3) fL Immature Gran % (Auto) 0.5 H (0.0-0.4) % Neut % (Auto) 54.9 (45-73) % Lymph % (Auto) 35.7 (20-40) % Sandoval % (Auto) 7.7 (2-11) % Eos % (Auto) 0.9 (0-4) % Baso % (Auto) 0.3 (0-2) % Lymph # (Auto) 2.7 (1.2-4.9) X10*3/uL Sandoval # (Auto) 0.6 (0.1-1.2) X10*3/uL Eos # (Auto) 0.1 (0.0-0.4) X10*3/uL Baso # (Auto) 0.0 (0.0-0.2) X10*3/uL Abs Immat Gran (auto) 0.04 H (0.00-0.03) X10*3/uL Absolute Neuts (auto) 4.1 (2.0-8.3) x10*3/uL Absolute Nucleated RBC 0.000 (0.0-0.012) X10*3/uL Nucleated RBC % (auto) 0.0 (0.0-0.2) /100WBC Sodium 143 (135-145) mmol/L Potassium 3.5 (3.3-5.1) mmol/L Chloride 109 H (96-108) mmol/L Carbon Dioxide 25 (22-29) mmol/L Anion Gap 13 (12-20) BUN 16 (9-16) mg/dL Creatinine 1.00 (0.5-1.4) mg/dL Estim Creat Clear Calc 60.2 Estimated GFR 55 Random Glucose 105 (60-115) mg/dL Calcium 8.9 D (8.4-10.2) mg/dL Total Bilirubin 0.4 (0.0-1.0) mg/dL AST 18 (5-31) U/L ALT 6 (0-31) U/L Alkaline Phosphatase 101 (39-117) U/L Total Protein 7.3 (6.5-8.0) g/dL Albumin 3.7 (3.5-5.0) g/dL Lipase 14 (8-78) U/L Urine Color Yellow Urine Appearance Cloudy Urine pH 7.0 (5.0-9.0) Ur Specific Vesper 1.025 (1.005-1.025) Urine Protein 30 (1+) H (Neg-Trace) mg/dL Urine Glucose (UA) Negative (Negative) mg/dL Urine Ketones Negative (Negative) mg/dL Urine Blood Negative (Negative) Urine Nitrite Positive H (Negative) Ur Leukocyte Esterase Moderate (2+) H (Negative) Urine RBC 3-5 H (0-2) /HPF Urine WBC >50 H (0-5) /HPF Ur Squamous Epith Cells 3-5 (0-2) /HPF Urine Bacteria 4+ (None Seen) Hyaline Casts 0-2 (0-2) /LPF Independent Historian Clinical information obtained from an independent historian. History obtained from or confirmed by: EMS External Record Review External record reviewed: Inpatient record Prescription Management I considered prescription management with: Pain Medication and Antibiotic Chronic Conditions Patient?s care impacted by: Other (Recurrent UTI, hypertension) Discharge Plan Discharge Clinical Impression: Recurrent UTI, History of ESBL E. coli infection Patient Disposition: Admitted As Inpatient
[2024-12-16 05:04] LABS: Appearance Urine Cloudy; Glucose Urine UA Negative (Negative); PH 7.0 (5.0-9.0); Specific Gravity - Urine 1.025 (1.005-1.025); UMIC TRIGGER UACC YES
[2024-12-16 05:16] LABS: UACC Culture Trigger YES
--- NOTE | 2024-12-16 05:38 | PC.NURSE ---
pt BRIANA from home reporting n/v x1 day. states that is her usual UTI symptom. pt has frequent UTIs, and just finished ABX for ESBL recently. pt is A/Ox4, calm and cooperative with care. pt is w/c bound, able to stand pivot into w/c or commode only. 20g IV LAC. pt has severe RA, chronic pain. pt comfortably at this time, call jacqueline w/in reach, no apparent distress noted, aware of plan of care for admit
--- NOTE | 2024-12-16 05:42 | PM.IMHP ---
History of Present Illness Date of Service: 12/16/24 Attending physician on admission: Andry Denis Chief Complaint: nausea/vomiting Patient is a 74-year-old female with a past medical history significant for recurrent ESBL UTIs, PAD, and osteomyelitis, who presented to the ED due to nausea and vomiting x1 day. The patient was diagnosed with the ESBL UTI 2 weeks ago and finished ertapenem via PICC line. She has chronic pain and has been unable to take her pain medications do to her nausea. She denies any urinary symptoms including frequency, urgency or dysuria, however isn't typical to have these symptoms with a UTI, mostly just nausea. She also reports body aches and chills. Review of Systems Constitutional: Constitutional: Reports body ache(s), Reports chills, Denies fatigue, Denies fever(s) and Denies headache(s) Eyes: Eyes: Denies change in vision ENT: Denies headache(s), Denies nasal congestion and Denies sore throat Cardiovascular: Cardiovascular: Denies chest pain, Denies rapid heart rate, Denies leg edema, Denies lightheadedness and Denies dyspnea Respiratory: Respiratory: Denies chest congestion, Denies cough, Denies dyspnea and Denies wheezing Gastrointestinal: Gastrointestinal: Denies abdominal pain, Denies constipation, Denies diarrhea, Reports nausea and Reports vomiting Genitourinary: Genitourinary: Denies dysuria and Denies urinary urgency Musculoskeletal: Musculoskeletal: Denies back pain and Reports myalgias Integumentary/Breasts: Skin/Breast: Denies rash Neurologic: Denies confusion and Denies headache(s) Psychiatric: Psychiatric: Denies confusion Endocrine: Endocrine: Denies fatigue Hematologic/Lymphatic: Hematologic/Lymphatic: Denies easy bleeding and Denies easy bruising Allergic/Immunologic: Allergic/Immunologic: Denies wheezing [facility] Medical History Sepsis Bacteriuria Urinary tract infection due to extended-spectrum beta lactamase (ESBL) producing Escherichia coli History of ESBL E. coli infection Osteomyelitis COPD (chronic obstructive pulmonary disease) Rheumatoid lung Hypothyroidism Congestive heart failure Fibromyalgia HTN (hypertension) Depression Rheumatoid arthritis Functional capacity: independent ambulation Family History Father No problems noted. Other Heart disease Surgical History Hx of prior ablation treatment Knee joint replacement status Social History Household Members: None Household Members Other:: 0 Housing: Apartment Do you presently have visiting nurse or other home services: Yes (outside care takers) Unable to assess alcohol history related to: Unable to respond Alcohol intake: never Comment: bedside commode Patient Tobacco Use Status: Former Tobacco user Tobacco use type: Cigarette Smoked in Last 30 Days: No e-Cigarette/Vaping Use: Never Used Second Hand Smoke Exposure: No Use of substances other than those prescribed or required for medical reasons: No Advance Directives: Yes Advance Directives on File: Yes Advance Directives Date on File: 10/19/23 Nutrition Risks: No Nutritional Risk service: No Meds Allergies Allergy/AdvReac Type Severity Reaction Status Date / Time lisinopril (LISINOPRIL) Allergy Severe ANAPHYLAXIS Verified 12/16/24 02:12 Sulfa (Sulfonamide Allergy Intermediate RASH Verified 12/16/24 02:12 Antibiotics) (SULFA (SULFONAMIDE ANTIBIOTICS)) tramadol (TRAMADOL) Allergy Intermediate RASH Verified 12/16/24 02:12 Htcnnzo-OFT-AnJ Reductase Allergy Rash Verified 12/16/24 02:12 Inhibitor (Xvwsqef-Lxo-Uwn Reductase Inhibitor) hydrochlorothiazide (HCTZ) AdvReac Unknown ABNORMAL Verified 12/16/24 02:12 LABS? Active Medications: Current Medications Acetaminophen (Acetaminophen 325 Mg Tablet) 650 mg PO Q6H PRN PRN Reason: Pain, Mild 1-3,fever,headache Calcium Carbonate (Calcium Carbonate 750 Mg Tab.Chew) 750 mg PO Q4H PRN PRN Reason: Heartburn Enoxaparin Sodium (Enoxaparin Sodium 40 Mg/0.4 Ml Syringe) 40 mg SUBCUT Q24H [place] Magnesium Hydroxide (Milk Of Magnesia 30 Ml Oral.Susp) 30 ml PO DAILY PRN PRN Reason: Constipation Melatonin (Melatonin 3 Mg Tablet) 6 mg PO BEDTIME PRN PRN Reason: Insomnia Meropenem (Meropenem 1 Gm Vial) 1 gm IVPUSH Q8H [facility] Sodium Chloride (0.9 % Sodium Chloride Flush 3 Ml Syringe) 3 ml IVFLUSH QSHIFT [facility] Home Medications ?Medication ?Instructions ?Recorded ?Confirmed ?Last Taken ?Type bupropion HCl 300 mg 24 hr tablet, 300 mg PO DAILY@0900 08/23/21 11/19/24 11/18/24 History extended release duloxetine 60 mg capsule,delayed 60 mg PO DAILY 08/23/21 11/19/24 11/18/24 History release levothyroxine 50 mcg tablet 50 mcg PO DAILY@0600 08/23/21 11/19/24 11/18/24 History methotrexate sodium 2.5 mg tablet 25 mg PO MO 08/23/21 11/19/24 11/11/24 History omeprazole 40 mg capsule,delayed 40 mg PO DAILY@0630 08/23/21 11/19/24 11/18/24 History release prednisone 1 mg tablet 4 mg PO DAILY 08/23/21 11/19/24 11/18/24 History Held on 11/21/24. Instructions: Resume on 11/24/24. pregabalin 200 mg capsule 200 mg PO BID 01/07/23 11/19/24 11/18/24 History folic acid 1 mg tablet 2 mg PO DAILY 10/13/23 11/19/24 11/18/24 History bupropion HCl 150 mg 24 hr tablet, 150 mg PO DAILY@0911/25/23 11/19/24 11/18/24 History extended release acetaminophen 325 mg tablet 650 mg PO Q4H PRN Moderate Pain 03/04/24 11/19/24 Unknown History (Tylenol) (Scale Score 5-6) ibuprofen 200 mg tablet 600 mg PO Q6H PRN Pain 05/03/24 11/19/24 Unknown History melatonin 10 mg tablet 10 mg PO BEDTIME PRN Sleep 05/03/24 11/19/24 Unknown History multivitamin 1 tab PO DAILY 05/03/24 11/19/24 11/18/24 History atenolol 25 mg tablet 50 mg PO DAILY 08/29/24 11/19/24 11/18/24 History fluticasone propionate 50 1 spray intranasal BID PRN Allergy 08/29/24 11/19/24 Unknown History mcg/actuation nasal Symptoms spray,suspension biotin 1 mg tablet 1 mg PO DAILY 10/07/24 11/19/24 11/18/24 History furosemide 40 mg tablet 40 mg PO DAILY 07/11/19/24 11/18/24 History Physical Exam Vital Signs and Narrative: Vital Signs: Last Vital Signs Temp 98.6 F 12/16/24 02:07 Pulse 62 12/16/24 05:12 Resp 16 12/16/24 05:12 BP 163/65 H 12/16/24 05:12 Pulse Ox 98 12/16/24 05:12 O2 Del Method Room Air 12/16/24 05:12 BMI result Body Mass Index 32.9 General: AOx3, no acute distress Resp: CTA bilaterally CVS: S1, S2, RRR GI: +BS, NT, no distention Skin: Warm, dry Neuro: Cranial nerves II-XII grossly intact bilaterally. Motor grossly intact bilaterally Extremities: No pitting edema Psych: Appropriate affect Const: General: No confusion Orientation/consciousness: No confusion Neuro: General: No confusion Results Labs 12/16/24 06:17 12/16/24 06:17 Labs: Laboratory Results - last 24 hr 12/16/24 12/16/24 02:25 04:56 MCV 88.6 MCH 30.3 MCHC 34.2 RDW 14.6 Plt Count 192 D MPV 10.0 Immature Gran % (Auto) 0.5 H Neut % (Auto) 54.9 Lymph % (Auto) 35.7 [place] % (Auto) 7.7 Eos % (Auto) 0.9 Baso % (Auto) 0.3 Lymph # (Auto) 2.7 [place] # (Auto) 0.6 Eos # (Auto) 0.1 Baso # (Auto) 0.0 Abs Immat Gran (auto) 0.04 H Absolute Neuts (auto) 4.1 Absolute Nucleated RBC 0.000 Nucleated RBC % (auto) 0.0 Anion Gap 13 Estim Creat Clear Calc 60.2 Estimated GFR 55 Random Glucose 105 Calcium 8.9 D Total Bilirubin 0.4 AST 18 ALT 6 Alkaline Phosphatase 101 Total Protein 7.3 Albumin 3.7 Lipase 14 Urine Color Yellow Urine Appearance Cloudy Urine pH 7.0 Ur Specific [place] 1.025 Urine Protein 30 (1+) H Urine Glucose (UA) Negative Urine Ketones Negative Urine Blood Negative Urine Nitrite Positive H Ur Leukocyte Esterase Moderate (2+) H Urine RBC 3-5 H Urine WBC >50 H Ur Squamous Epith Cells 3-5 Urine Bacteria 4+ Hyaline Casts 0-2 Assessment and Plan (1) History of ESBL E. coli infection: Status: Acute (2) Recurrent UTI: Status: Acute Plan Patient is a 74-year-old female with a past medical history significant for recurrent ESBL UTIs, PAD, and osteomyelitis, who presented to the ED due to nausea and vomiting x1 day. recurrent UTI with nausea/vomting. hx ESBL UTIs - no leukocytosis, vitals stable, lactic acid 1.0, blood cultures x2 pending, no sepsis - UA positive, culture pending - patient started on meropenem due to previous urine cultures, continue - ID consult - blood pressure stable, no need for IV fluids at this time - hold methenamine - monitor CBC and BMP HTN - continue meds Mood - continue home meds Hypothyroid - continue levothyroxine HFpEF, no acute exacerbation - continue home meds when appropriate Med rec pending Full code VTE prophylaxis: Lovenox Patient with recurrent UTIs associated with nausea/vomiting, requiring admission for at least 2 midnights stay for IV antibiotics and monitoring. Quality Stroke Does the patient have a stroke diagnosis?: No VTE Prior VTE?: No VTE Risk Level:: Medical - moderate - high VTE Device Contraindication: Treatment Not Indicated VTE Drug Contraindication: N/A - Med Ordered
[2024-12-16 06:22] LABS: MANUAL DIFF FLAG NO
[2024-12-16 06:25] LABS: Hematocrit 38.7 % (37.0-47.0); Hemoglobin 13.1 g/dl (12.0-16.0); Imm Gran Abs Auto 0.04 X10*3/uL (0.00-0.03); Imm Gran Pct Auto 0.6 % (0.0-0.4); Lymphocytes Absolute Auto 2.5 X10*3/uL (1.2-4.9); Mean Corpuscular HGB Conc 33.9 g/dl (31.0-35.0); Mean Corpuscular Hemoglobin 30.5 pg (27.0-33.0); Mean Corpuscular Volume 90.0 fL (80.0-98.0); NRBC Abs Auto 0.000 X10*3/uL (0.0-0.012); NRBC Pct Auto 0.0 /100WBC (0.0-0.2); Platelet Count 171 X10*3/uL (160-400); Red Blood Count 4.30 X10*6/uL (4.20-5.50); White Blood Count 6.7 X10*3/uL (4.8-10.8)
[2024-12-16 06:35] LABS: Anion Gap 12 (12-20); Blood Urea Nitrogen 16 mg/dL (9-16); Calcium 8.5 mg/dL (8.4-10.2); Carbon Dioxide 27 mmol/L (22-29); Chloride 108 mmol/L (96-108); Creatinine Clr Calc Pharmacy 60.9; Estimated Glomerular Filt Rate 55; Potassium 3.4 mmol/L (3.3-5.1); Sodium 144 mmol/L (135-145)
[2024-12-16] MEDS: 0.9 % Sodium Chloride Flush 3 ML SYRINGE IVFLUSH ×3 (08:04→20:39)
--- NOTE | 2024-12-16 09:13 | PHA.MEDREC ---
Addendum entered by Jared Coley [facility] 12/16/24 09:37: Reviewed by [facility] Original Note: Pharmacy Consult ? Medication Reconciliation Pharmacy has completed the medication reconciliation. Patient was able to confirm med list. Patient states she is no longer taking Vitamin C 1,000 mg, Duloxetine 60 mg and Ertapenem 1 g. Patient confirmed Methotrexate 25 mg (10x 2.5 mg) every Monday, last dose 12/10/24, Prednisone 4 mg (4x 1 mg). Patient hasn't filled some of her medications since 04/17/24 for 90 days . Patient states due to multiple admissions she has a stock pile. Patient last had her medications yesterday morning.
--- NOTE | 2024-12-16 09:31 | PC.NURSE ---
RN to RN report received from Guillermina Layne. Moved from ED 8 to Overflow 4. This RN assumes care of the patient at this time. Arrived after onset of nausea/vomiting last night, hx recurrent UTIs. Confirmed UTI, on IV antibiotics. IV access to Left AC. Alert & oriented. Uses wheelchair at baseline, but is able to stand/pivot transfer. Reports taking Oxycodone 20mg Q4H, confirmed with med list. Pharmacy aware. Sent message to hospitalist, awaiting response. Pt reports the Dilaudid that I got earlier has worn off. I need another dose of that, or my Oxycodone please . Patient is calm/cooperative. Care ongoing by this RN.
[2024-12-16] MEDS: oxyCODONE HCl Immed Release 5 MG TABLET 20 MG PO ×3 (10:56→19:35)
[2024-12-16 11:54] LABS: Glucose, Whole Blood 100 mg/dL (60-115)
[2024-12-16] MEDS: buPROPion HCl XL 300 MG TAB.ER.24H PO (11:57)
[2024-12-16] MEDS: buPROPion HCl XL 150 MG TAB.ER.24H PO (11:57)
--- NOTE | 2024-12-16 13:07 | P.PNIM_ITS ---
Subjective Subjective Date of Service: 12/16/24 Interval History: Feeling better, nausea controlled Has been able to tolerate full diet No abdominal pain Denies polyuria or dysuria Review of Systems Review of Systems: Yes all other systems are reviewed and are negative Physical Exam 2 Exam: Exam: General: AOx3, no acute distress Resp: CTA bilaterally CVS: S1, S2, RRR GI: +BS, NT, no distention Skin: Warm, dry Neuro: Cranial nerves II-XII grossly intact bilaterally. Motor grossly intact bilaterally Extremities: Chronic lymphedema. No evidence of superimposed cellulitis Psych: Appropriate affect Vital Signs: Vital Signs: Last Vital Signs Temp 98 F 12/16/24 13:00 Pulse 66 12/16/24 13:00 Resp 15 12/16/24 13:00 BP 121/53 L 12/16/24 13:00 Pulse Ox 94 12/16/24 13:00 O2 Del Method Room Air 12/16/24 13:00 BMI result Body Mass Index 32.9 Objective Data Active Medications Acetaminophen (Acetaminophen 325 Mg Tablet) 650 mg PO Q6H PRN PRN Reason: Pain, Mild 1-3,fever,headache Last Admin: 12/16/24 10:57 Dose: 650 mg Documented By: BAMBI Atenolol (Atenolol 50 Mg Tablet) 50 mg PO DAILY [facility]; Protocol Last Admin: 12/16/24 11:56 Dose: 50 mg Documented By: BAMBI Bupropion HCl (Bupropion Hcl Xl 150 Mg Tab.Er.24h) 150 mg PO DAILY@0900 [facility] Last Admin: 12/16/24 11:57 Dose: 150 mg Documented By: BAMBI Bupropion HCl (Bupropion Hcl Xl 300 Mg Tab.Er.24h) 300 mg PO DAILY@0900 [facility] Last Admin: 12/16/24 11:57 Dose: 300 mg Documented By: BAMBI Calcium Carbonate (Calcium Carbonate 750 Mg Tab.Chew) 750 mg PO Q4H PRN PRN Reason: Heartburn Doxazosin Mesylate (Doxazosin Mesylate 2 Mg Tablet) 2 mg PO BEDTIME [facility]; Protocol Enoxaparin Sodium (Enoxaparin Sodium 40 Mg/0.4 Ml Syringe) 40 mg SUBCUT Q24H [facility] Last Admin: 12/16/24 08:04 Dose: 40 mg Documented By: VERN Fluticasone Propionate (Fluticasone Propionate Nasal 16 Gm [place]) 1 spray NOSTRIL-B BID PRN PRN Reason: Allergy Symptoms Folic Acid (Folic Acid 1 Mg Tablet) 2 mg PO DAILY [facility] Last Admin: 12/16/24 11:57 Dose: 2 mg Documented By: BAMBI Furosemide (Furosemide 40 Mg Tablet) 40 mg PO DAILY [facility]; Protocol Last Admin: 12/16/24 11:57 Dose: 40 mg Documented By: BAMBI Levothyroxine Sodium (Levothyroxine Sodium 50 Mcg Tablet) 50 mcg PO DAILY@0600 [facility] Magnesium Hydroxide (Milk Of Magnesia 30 Ml Oral.Susp) 30 ml PO DAILY PRN PRN Reason: Constipation Melatonin (Melatonin 3 Mg Tablet) 6 mg PO BEDTIME PRN PRN Reason: Insomnia Meropenem (Meropenem 1 Gm Vial) 1 gm IVPUSH Q8H [facility] Last Admin: 12/16/24 08:04 Dose: 1 gm Documented By: VERN Methotrexate (Methotrexate Sodium 2.5 Mg Tablet) 25 mg PO TU [facility] Multivitamins/Vitamin C (Multivitamin Tablet) 1 tab PO DAILY [facility] Omeprazole (Omeprazole 40 Mg Capsule.Dr) 40 mg PO DAILY@0630 [facility] Oxycodone HCl (Oxycodone Hcl Immed Release 5 Mg Tablet) 20 mg PO Q4H PRN PRN Reason: pain (scale score 7-10) Last Admin: 12/16/24 10:56 Dose: 20 mg Documented By: BAMBI Prednisone (Prednisone 1 Mg Tablet) 4 mg PO DAILY [facility] Last Admin: 12/16/24 11:58 Dose: 4 mg Documented By: BAMBI Pregabalin (Pregabalin 200 Mg Capsule) 200 mg PO BID [facility] Last Admin: 12/16/24 11:57 Dose: 200 mg Documented By: BAMBI Sodium Chloride (0.9 % Sodium Chloride Flush 3 Ml Syringe) 3 ml IVFLUSH QSHIFT [facility] Last Admin: 12/16/24 08:04 Dose: 3 ml Documented By: VERN Labs 12/16/24 06:17 12/16/24 06:17 Labs: Laboratory Results - last 24 hr 12/16/24 12/16/24 12/16/24 02:25 04:56 06:17 MCV 88.6 90.0 MCH 30.3 30.5 MCHC 34.2 33.9 RDW 14.6 14.6 Plt Count 192 D 171 MPV 10.0 9.7 Immature Gran % (Auto) 0.5 H 0.6 H Neut % (Auto) 54.9 51.4 Lymph % (Auto) 35.7 37.3 [place] % (Auto) 7.7 8.5 Eos % (Auto) 0.9 1.8 Baso % (Auto) 0.3 0.4 Lymph # (Auto) 2.7 2.5 [place] # (Auto) 0.6 0.6 Eos # (Auto) 0.1 0.1 Baso # (Auto) 0.0 0.0 Abs Immat Gran (auto) 0.04 H 0.04 H Absolute Neuts (auto) 4.1 3.4 Absolute Nucleated RBC 0.000 0.000 Nucleated RBC % (auto) 0.0 0.0 Anion Gap 13 12 Estim Creat Clear Calc 60.2 60.9 Estimated GFR 55 55 POC Glucose Random Glucose 105 80 Lactic Acid 1.0 Calcium 8.9 D 8.5 Total Bilirubin 0.4 AST 18 ALT 6 Alkaline Phosphatase 101 Total Protein 7.3 Albumin 3.7 Lipase 14 Urine Color Yellow Urine Appearance Cloudy Urine pH 7.0 Ur Specific [place] 1.025 Urine Protein 30 (1+) H Urine Glucose (UA) Negative Urine Ketones Negative Urine Blood Negative Urine Nitrite Positive H Ur Leukocyte Esterase Moderate (2+) H Urine RBC 3-5 H Urine WBC >50 H Ur Squamous Epith Cells 3-5 Urine Bacteria 4+ Hyaline Casts 0-2 12/16/24 11:51 MCV MCH MCHC RDW Plt Count MPV Immature Gran % (Auto) Neut % (Auto) Lymph % (Auto) [place] % (Auto) Eos % (Auto) Baso % (Auto) Lymph # (Auto) [place] # (Auto) Eos # (Auto) Baso # (Auto) Abs Immat Gran (auto) Absolute Neuts (auto) Absolute Nucleated RBC Nucleated RBC % (auto) Anion Gap Estim Creat Clear Calc Estimated GFR POC Glucose 100 Random Glucose Lactic Acid Calcium Total Bilirubin AST ALT Alkaline Phosphatase Total Protein Albumin Lipase Urine Color Urine Appearance Urine pH Ur Specific [place] Urine Protein Urine Glucose (UA) Urine Ketones Urine Blood Urine Nitrite Ur Leukocyte Esterase Urine RBC Urine WBC Ur Squamous Epith Cells Urine Bacteria Hyaline Casts Assessment and Plan (1) History of ESBL E. coli infection: Status: Acute Plan Patient is a 74-year-old female with a past medical history significant for recurrent ESBL UTIs, PAD, and osteomyelitis, who presented to the ED due to nausea and vomiting x1 day. Question of recurrent UTI with hx ESBL UTIs - pt with N/V which she reports is a sign of UTI - no sepsis; no leukocytosis, vitals stable, lactic acid 1.0, blood cultures x2 pending - pt just finished course of ertapenem 2 weeks ago on 12/02/2024 for ESBL UTI - patient started on meropenem in ED due to previous urine cultures, will discontinue per ID - ID consulted, pt likely colonized; no need to treat with abx unless bacteremia or other symptoms develop - hold methenamine - monitor CBC and BMP HTN - continue meds Mood - continue home meds Hypothyroid - continue levothyroxine HFpEF, no acute exacerbation - continue home meds when appropriate Full code VTE prophylaxis: Lovenox We will continue to monitor pt overnight. If no symptoms or fever develop, pt will likely be able to be discharged home tomorrow. Quality Stroke Does the patient have a stroke diagnosis?: No VTE Prior VTE?: No VTE Risk Level:: Medical - moderate - high VTE Device Contraindication: Treatment Not Indicated VTE Drug Contraindication: N/A - Med Ordered
--- NOTE | 2024-12-16 15:30 | MHC.CM.PN ---
PT LIVES AT HOME HAS FAMOLY THERE ON OCCASSION PT IS ACTIVE WITH PAULIE CARRILLO HER NIECE WILL DRIVE HER HOME
--- NOTE | 2024-12-16 16:57 | W.PM.IDCN ---
History of Present Illness Data of Consult Service Date: 12/16/24 Requesting physician: Ayaz Boyce Primary Care Provider: Lacy Yusuf MD HPI Reason for consult: nausea ?UTI She presents with nausea and malaise. She has no fever or chills. She says she always thinks its UTI when she feels like this since she doesnt get dysuria. She is tired of taking antibiotics and makes her unable to take her Methotrexate. Review of Systems Review of Systems: Yes all other systems are reviewed and are negative [facility] Past Medical History Medical History Sepsis Bacteriuria Urinary tract infection due to extended-spectrum beta lactamase (ESBL) producing Escherichia coli History of ESBL E. coli infection Osteomyelitis COPD (chronic obstructive pulmonary disease) Rheumatoid lung Hypothyroidism Congestive heart failure Fibromyalgia HTN (hypertension) Depression Rheumatoid arthritis Family History Family History Father No problems noted. Other Heart disease Family history: reviewed and not pertinent Surgical History Surgical History Hx of prior ablation treatment Knee joint replacement status Social History Social History Household Members: None Household Members Other:: 0 Housing: Apartment Do you presently have visiting nurse or other home services: Yes (outside care takers) Unable to assess alcohol history related to: Unable to respond Alcohol intake: never Comment: bedside commode Patient Tobacco Use Status: Former Tobacco user Tobacco use type: Cigarette Smoked in Last 30 Days: No e-Cigarette/Vaping Use: Never Used Second Hand Smoke Exposure: No Use of substances other than those prescribed or required for medical reasons: No Advance Directives: Yes Advance Directives on File: Yes Advance Directives Date on File: 10/19/23 Nutrition Risks: No Nutritional Risk service: No Meds Allergies Allergy/AdvReac Type Severity Reaction Status Date / Time lisinopril (LISINOPRIL) Allergy Severe ANAPHYLAXIS Verified 12/16/24 02:12 Sulfa (Sulfonamide Allergy Intermediate RASH Verified 12/16/24 02:12 Antibiotics) (SULFA (SULFONAMIDE ANTIBIOTICS)) tramadol (TRAMADOL) Allergy Intermediate RASH Verified 12/16/24 02:12 Inencpw-OAI-UsQ Reductase Allergy Rash Verified 12/16/24 02:12 Inhibitor (Lgdyuvv-Ltw-Ufm Reductase Inhibitor) hydrochlorothiazide (HCTZ) AdvReac Unknown ABNORMAL Verified 12/16/24 02:12 LABS? Active Medications: Current Medications Acetaminophen (Acetaminophen 325 Mg Tablet) 650 mg PO Q6H PRN PRN Reason: Pain, Mild 1-3,fever,headache Last Admin: 12/16/24 10:57 Dose: 650 mg Atenolol (Atenolol 50 Mg Tablet) 50 mg PO DAILY [facility]; Protocol Last Admin: 12/16/24 11:56 Dose: 50 mg Bupropion HCl (Bupropion Hcl Xl 150 Mg Tab.Er.24h) 150 mg PO DAILY@0900 EUGENIO Last Admin: 12/16/24 11:57 Dose: 150 mg Bupropion HCl (Bupropion Hcl Xl 300 Mg Tab.Er.24h) 300 mg PO DAILY@0900 EUGENIO Last Admin: 12/16/24 11:57 Dose: 300 mg Calcium Carbonate (Calcium Carbonate 750 Mg Tab.Chew) 750 mg PO Q4H PRN PRN Reason: Heartburn Doxazosin Mesylate (Doxazosin Mesylate 2 Mg Tablet) 2 mg PO BEDTIME [facility]; Protocol Enoxaparin Sodium (Enoxaparin Sodium 40 Mg/0.4 Ml Syringe) 40 mg SUBCUT Q24H [facility] Last Admin: 12/16/24 08:04 Dose: 40 mg Fluticasone Propionate (Fluticasone Propionate Nasal 16 Gm [place]) 1 spray NOSTRIL-B BID PRN PRN Reason: Allergy Symptoms Folic Acid (Folic Acid 1 Mg Tablet) 2 mg PO DAILY [facility] Last Admin: 12/16/24 11:57 Dose: 2 mg Furosemide (Furosemide 40 Mg Tablet) 40 mg PO DAILY [facility]; Protocol Last Admin: 12/16/24 11:57 Dose: 40 mg Levothyroxine Sodium (Levothyroxine Sodium 50 Mcg Tablet) 50 mcg PO DAILY@0600 [facility] Magnesium Hydroxide (Milk Of Magnesia 30 Ml Oral.Susp) 30 ml PO DAILY PRN PRN Reason: Constipation Melatonin (Melatonin 3 Mg Tablet) 6 mg PO BEDTIME PRN PRN Reason: Insomnia Methotrexate (Methotrexate Sodium 2.5 Mg Tablet) 25 mg PO TU [facility] Multivitamins/Vitamin C (Multivitamin Tablet) 1 tab PO DAILY [facility] Omeprazole (Omeprazole 40 Mg Capsule.Dr) 40 mg PO DAILY@06 [facility] Oxycodone HCl (Oxycodone Hcl Immed Release 5 Mg Tablet) 20 mg PO Q4H PRN PRN Reason: pain (scale score 7-10) Last Admin: 12/16/24 15:14 Dose: 20 mg Prednisone (Prednisone 1 Mg Tablet) 4 mg PO DAILY [facility] Last Admin: 12/16/24 11:58 Dose: 4 mg Pregabalin (Pregabalin 200 Mg Capsule) 200 mg PO BID [facility] Last Admin: 12/16/24 11:57 Dose: 200 mg Sodium Chloride (0.9 % Sodium Chloride Flush 3 Ml Syringe) 3 ml IVFLUSH QSHIFT [facility] Last Admin: 12/16/24 15:40 Dose: 3 ml Home Medications ?Medication ?Instructions ?Recorded ?Confirmed ?Last Taken ?Type bupropion HCl 300 mg 24 hr tablet, 300 mg PO DAILY@89908/23/21 12/16/24 12/15/24 History extended release levothyroxine 50 mcg tablet 50 mcg PO DAILY@59908/23/21 12/16/24 12/15/24 History methotrexate sodium 2.5 mg tablet 25 mg PO TU 08/23/21 12/16/24 12/15/24 History omeprazole 40 mg capsule,delayed 40 mg PO DAILY@62908/23/21 12/16/24 12/15/24 History release prednisone 1 mg tablet 4 mg PO DAILY 08/23/21 12/16/24 12/15/24 History Held on 11/21/24. Instructions: Resume on 11/24/24. pregabalin 200 mg capsule 200 mg PO BID 01/07/23 12/16/24 12/15/24 History folic acid 1 mg tablet 2 mg PO DAILY 10/13/23 12/16/24 12/15/24 History bupropion HCl 150 mg 24 hr tablet, 150 mg PO DAILY@89911/25/23 12/16/24 12/15/24 History extended release acetaminophen 325 mg tablet 650 mg PO Q4H PRN Moderate Pain 03/04/24 12/16/24 Unknown History (Tylenol) (Scale Score 5-6) ibuprofen 200 mg tablet 600 mg PO Q6H PRN Pain 05/03/24 12/16/24 Unknown History melatonin 10 mg tablet 10 mg PO BEDTIME PRN Sleep 05/03/24 12/16/24 Unknown History multivitamin 1 tab PO DAILY 05/03/24 12/16/24 12/15/24 History atenolol 25 mg tablet 50 mg PO DAILY 08/29/24 12/16/24 12/15/24 History fluticasone propionate 50 1 spray intranasal BID PRN Allergy 08/29/24 12/16/24 Unknown History mcg/actuation nasal Symptoms spray,suspension biotin 1 mg tablet 1 mg PO DAILY 10/07/24 12/16/24 12/15/24 History furosemide 40 mg tablet 40 mg PO DAILY 10/07/24 12/16/24 12/15/24 History Physical Exam Vital Signs: Vital Signs: Last Vital Signs Temp 98.1 F 12/16/24 16:22 Pulse 64 12/16/24 16:22 Resp 18 12/16/24 16:22 BP 143/65 H 12/16/24 16:22 Pulse Ox 95 12/16/24 16:22 O2 Del Method Room Air 12/16/24 16:22 BMI result Body Mass Index 32.9 Const: General: cooperative HEENT: Head: Yes normal to inspection Face and sinus: Yes normal facial exam Mouth: Normal oral and palatal mucosa present Teeth and gingiva: dentition normal Eyes: General: appearance normal, both eyes and all related structures Pupils: Equal, round and reactive pupils present Resp: Effort & Inspection: normal respiratory effort Cardio: Rate: regular rate Rhythm: regular rhythm GI: Palpation (GI): Soft to palpation and nontender : General: Yes no CVA tenderness Back/Spine/Pelvis: Back: no CVA tenderness Skin: General skin exam: no rashes or lesions noted Neuro: General: moves all extremities Cranial nerves: Yes Equal, round and reactive pupils present Extrem: General: Yes normal to inspection Psych: Appearance: grossly normal Results Labs 12/16/24 06:17 12/16/24 06:17 Labs: Short CBC 12/16/24 12/16/24 Range/Units 02:25 06:17 WBC 7.4 6.7 (4.8-10.8) X10*3/uL Hgb 13.9 D 13.1 (12.0-16.0) g/dl Hct 40.6 38.7 (37.0-47.0) % Plt Count 192 D 171 (160-400) X10*3/uL BMP 12/16/24 12/16/24 02:25 06:17 Sodium 143 144 Potassium 3.5 3.4 Chloride 109 H 108 Carbon Dioxide 25 27 BUN 16 16 Creatinine 1.00 0.99 Calcium 8.9 D 8.5 Liver Function 12/16/24 Range/Units 02:25 Total Bilirubin 0.4 (0.0-1.0) mg/dL AST 18 (5-31) U/L ALT 6 (0-31) U/L Alkaline Phosphatase 101 (39-117) U/L Albumin 3.7 (3.5-5.0) g/dL Urine 12/16/24 Range/Units 04:56 Urine Color Yellow Urine Appearance Cloudy Urine pH 7.0 (5.0-9.0) Ur Specific [place] 1.025 (1.005-1.025) Urine Protein 30 (1+) H (Neg-Trace) mg/dL Urine Glucose (UA) Negative (Negative) mg/dL Assessment and Plan (1) History of ESBL E. coli infection: Status: Acute Plan She has nausea and no evidence of ESBL or other infection at this time as no leukocytosis or fever She has just been on antibiotics She is probably colonized with ESBL. If there is no bacteremia or other symptoms would not give antibiotics.
[2024-12-17] MEDS: oxyCODONE HCl Immed Release 5 MG TABLET 20 MG PO ×4 (00:55→17:07)
[2024-12-17 03:16] VITALS: BP 108/53; PULSE 72; RESP 18; TEMP 36.4; O2SAT 93
[2024-12-17 08:00] VITALS: BP 146/82; PULSE 68; RESP 18; TEMP 36.6; O2SAT 95
[2024-12-17] MEDS: buPROPion HCl XL 150 MG TAB.ER.24H PO (08:47)
[2024-12-17] MEDS: buPROPion HCl XL 300 MG TAB.ER.24H PO (08:48)
[2024-12-17] MEDS: 0.9 % Sodium Chloride Flush 3 ML SYRINGE IVFLUSH (08:52)
--- NOTE | 2024-12-17 14:26 | W.MHC.F2F ---
Service Date Service Date: 12/17/24 Encounter Date of encounter: 12/17/24 Reasons for Services Signs and symptoms assessed: Chronic musculoskeletal pain from severe RA, generalized weakness and difficulty with ambulation Reason for physical therapy: home safety and mobility Homebound: Leaving the home is medically contraindicated at this time without the asist of a device and/or another person due th the listed conditions above and below. Reason homebound: unsteady gait / fall risk and poor balance / fall risk Certification: Based on the above findings, I certify that this patient is confined to the home and needs intermittent nursing home care, physical therapy and/or speech therapy, or continues to need occupational therapy. The patient is under my care, and I have initiated the establishment of the plan of care. The patient will be followed by a physician who will periodically review the plan of care. Time Spent With Patient Time: Total time managing care of this patient today ____ minutes.
--- NOTE | 2024-12-17 14:33 | P.DS_ITS ---
DS: Providers Provider Date of Service: 12/17/24 Date of admission: 12/16/24 05:24 Date of discharge: 12/17/24 Primary care physician: Lacy Yusuf MD Consults: 12/16/24 05:38 Consult to Infectious Diseases Routine Consulting Provider: [facility] [place] [facility] Reason for consultation: recurrent ESBL UTI Has provider been notified: No DS: Diagnosis Discharge Diagnosis (1) History of ESBL E. coli infection: Status: Acute DS: Summary Hospital Course Hospital Course: From admission HPI: Date of Service: 12/16/24 Attending physician on admission: Andry Denis Chief Complaint: nausea/vomiting Patient is a 74-year-old female with a past medical history significant for recurrent ESBL UTIs, PAD, and osteomyelitis, who presented to the ED due to nausea and vomiting x1 day. The patient was diagnosed with the ESBL UTI 2 weeks ago and finished ertapenem via PICC line. She has chronic pain and has been unable to take her pain medications do to her nausea. She denies any urinary symptoms including frequency, urgency or dysuria, however isn't typical to have these symptoms with a UTI, mostly just nausea. She also reports body aches and chills. Hospital course: Pt was admitted to the hospital for vague symptoms of nausea and positive UA concerning for recurrent ESBL UTI. Pt was initially started on meropenem in the ED. Pt did not meet sepsis criteria and was afebrile and without leukocytosis. Pt was seen and evaluated by Infectious Disease who thought UA showed colonization rather than active infection given patient's lack of symptoms. I nfectious Disease recommended stopping antibiotics unless pt developed SIRS criteria. Pt was monitored overnight where nausea resolved and pt remained afebrile throughout. No polyuria or dysuria. Pt seen and evaluated in the morning where she felt back to baseline. No nausea. Was able to tolerate solid diet. Pt was educated about likely colonization and that UA would likely now always test positive, and that we should not treat with IV antibiotics unless pt develops objective SIRS criteria/and/or urinary symptoms. Pt agreeable with plan as well as with being discharged home without antibiotics. Pt should resume all of her home medications. Time Attestation Discharge Coordination Time (in mins): 32 Quality: Safe Use of Opioids Does Pt have an Active Cancer Diagnosis on the Problem List?: No Quality: Stroke Does the patient have a stroke diagnosis?: No Physical Exam Exam: Exam: General: AOx3, no acute distress Resp: CTA bilaterally CVS: S1, S2, RRR GI: +BS, NT, no distention Skin: Warm, dry Neuro: Cranial nerves II-XII grossly intact bilaterally. Motor grossly intact bilaterally Extremities: No edema Psych: Appropriate affect Vital Signs: Vital Signs: Last Vital Signs Temp 97.8 F 12/17/24 08:00 Pulse 68 12/17/24 08:00 Resp 18 12/17/24 08:00 BP 146/82 H 12/17/24 08:00 Pulse Ox 95 12/17/24 08:00 O2 Del Method Room Air 12/17/24 08:00 BMI result Body Mass Index 32.9 DS: Data Data Completed and Pending Completed studies during hospitalization [Text1]: Procedures Insertion of Infusion Device into Right Basilic Vein, Percutaneous Approach (11/19/24) Insertion of Infusion Device into Right Brachial Vein, Percutaneous Approach (08/29/24) Insertion of Infusion Device into Right Cephalic Vein, Percutaneous Approach (10/13/23) Labs on day of discharge: Preliminary micro results at discharge 12/16/24 04:56 Urine Culture - Preliminary Urine clean catch - Clean Catch Midstream Gram negative altaf 12/16/24 06:17 Blood Culture - Preliminary Blood - Venous No growth after 24 hours. 12/16/24 06:17 Blood Culture - Preliminary Blood - Venous No growth after 24 hours. Discharge Plan Discharge Anticipated Discharge Date/Time: 12/17/24 14:19 Patient Disposition: Home Health Service Discharge Diagnosis: Nausea w/concern for possible UTI Referrals: Lacy Yusuf MD [Primary Care Provider, Internal Medicine] - 1 Week Discharge Medications: Continued omeprazole 40 mg capsule,delayed release(DR/EC) 40 mg PO DAILY@0630 methotrexate sodium 2.5 mg tablet 25 mg PO TU prednisone 1 mg tablet 4 mg PO DAILY levothyroxine 50 mcg tablet 50 mcg PO DAILY@0600 bupropion HCl 300 mg tablet extended release 24 hr 300 mg PO DAILY@0900 ondansetron 4 mg tablet,disintegrating 4 mg PO Q8H PRN (Reason: nausea and vomiting) Qty: 10 0RF folic acid 1 mg tablet 2 mg PO DAILY doxazosin 2 mg Tablet 2 mg PO BEDTIME Qty: 30 0RF Protocol: Hold for SBP< HOLD for SBP < : 90 bupropion HCl 150 mg tablet extended release 24 hr 150 mg PO DAILY@0900 multivitamin Tablet 1 tab PO DAILY ibuprofen 200 mg Tablet 600 mg PO Q6H PRN (Reason: Pain) melatonin 10 mg Tablet 10 mg PO BEDTIME PRN (Reason: Sleep) pregabalin 200 mg capsule 200 mg PO BID oxycodone 20 mg tablet 20 mg PO Q4H PRN (Reason: pain (scale score 7-10)) Qty: 20 0RF acetaminophen [Tylenol] 325 mg Tablet 650 mg PO Q4H PRN (Reason: Moderate Pain (Scale Score 5-6)) fluticasone propionate 50 mcg/actuation [place],Suspension 1 spray INTRANASAL BID PRN (Reason: Allergy Symptoms) Rx Instructions: administer into each nostril atenolol 25 mg tablet 50 mg PO DAILY Protocol: Hold for SBP/HR < HOLD for SBP < : 90 HOLD for HR < : 60 furosemide 40 mg tablet 40 mg PO DAILY biotin 1 mg Tablet 1 mg PO DAILY methenamine hippurate 1 gram tablet 1 g PO DAILY 90 Days Qty: 90 0RF Discharge Orders: Discharge Order (Routine); Ordered 12/17/24 Ordered By: Ayaz Boyce Activity on Discharge: As tolerated Stand Alone Forms: Patient Portal Discharge page Print Language: Khmer Care Plan Goals: See below Health Concerns: Recurrent ESBL UTI Sepsis Intractable nausea and vomiting Plan of Treatment: You were admitted to the hospital for concerns for possible recurrent ESBL UTI. You initially presented to the ED with nausea and had positive UA, though no fever, chills, polyuria, or dysuria. You had previously been treated for ESBL UTI with IV antibiotics just 2 weeks prior to presentation and were given ertapenem IV in the ED. You were seen and evaluated by Infectious Disease who thought UA showed colonization rather than active infection, and suggested against antibiotic treatment unless you developed symptoms and/or SIRS criteria. You were monitored overnight with resolution of nausea and with no acute events. You did not develop a fever and vital signs were stable. Sincere likely colonized, your urine will likely always be positive as well as grow ESBL organisms. You will not require additional IV antibiotic treatment unless you develop symptoms and/or meet objective SIRS/sepsis criteria. You were agreeable with the plan and will be discharged home without antibiotics. You should continue all of your home medications. Assessment: See discharge summary
[2024-12-17 15:23] VITALS: BP 127/60; PULSE 67; RESP 16; TEMP 36.3; O2SAT 95
[2024-12-17 17:21] VITALS: BP 159/71; PULSE 67; RESP 16; TEMP 36.8; O2SAT 97
[2024-12-17 18:09] VITALS: TEMP 36.1
== END 2024-12-17 18:13 | disposition home health service (06) | DRG 392 ==
LOC: HO.ED 03:55 → HO.EDOVER 05:34 → HO.S3 16:26
PROVIDERS: Admitting Provider Internal Medicine; Emergency Provider Emergency Medicine; PCP Internal Medicine; Visit Provider Student in an Organized Health Care Education/Training Program
DX: R11.2 Nausea with vomiting, unspecified (principal); I50.32 Chronic diastolic (congestive) heart failure; I11.0 Hypertensive heart disease with heart failure; E03.9 Hypothyroidism, unspecified; F39 Unspecified mood [affective] disorder; M79.7 Fibromyalgia; Z22.358 Carrier of other Enterobacterales; Z99.81 Dependence on supplemental oxygen; Z87.440 Personal history of urinary (tract) infections; Z87.891 Personal history of nicotine dependence; Z79.52 Long term (current) use of systemic steroids; Z79.631 Long term (current) use of antimetabolite agent; Z79.890 Hormone replacement therapy; Z79.899 Other long term (current) drug therapy
CPT/HCPCS: 36415; 80048; 80053; 81001; 82947; 83605; 83690; 85025; 87040; 87086; 87088; 87186; 99221; 99285; J1171; J1200; J1630; J1650; J2185; J2250; J2270; J7120

== ENCOUNTER → 2024-12-16 05:24 | Outpatient (BNV) | payer MEDICARE, MEDICAID, SELFPAY | PROVIDERS: Admitting Provider Internal Medicine; Emergency Provider Emergency Medicine; PCP Internal Medicine; Visit Provider Internal Medicine | DX: Z86.19 Personal history of other infectious and parasitic diseases (principal) | CPT/HCPCS: 99222 ==

== ENCOUNTER → 2024-12-16 05:24 | Outpatient (BNV) | payer MEDICARE, MEDICAID, SELFPAY | PROVIDERS: Admitting Provider Internal Medicine; Emergency Provider Emergency Medicine; PCP Internal Medicine; Visit Provider Physician Assistant | DX: Z86.19 Personal history of other infectious and parasitic diseases (principal) | CPT/HCPCS: 99222; 99239; 99499 ==

== ENCOUNTER 2024-12-27 14:16 | Inpatient (IN) | payer MEDICARE, MEDICAID, SELFPAY ==
[2024-12-27] VITALS (9 sets, daily range): BP systolic 174–219; BP diastolic 81–108; PULSE 63–107; RESP 12–18; TEMP 36.7–37.7; O2SAT 94–99; BMI 32.8
--- NOTE | ~2024-12-27 | CT_ITS ---
EXAMINATION: CT HEAD WITHOUT CONTRAST CLINICAL INFORMATION: Altered mental status COMPARISON: June 26, 2024 TECHNIQUE: Contiguous axial imaging was performed from the skull base to vertex without intravenous administration of contrast. This CT examination was performed using dose optimization techniques as appropriate, variously including the following: *Automated exposure control *Adjustment of mA and/or kV according to patient size (this includes techniques or standardized protocols for targeted exams where dose is matched to indication/reason for exam; i.e. extremities or head) *Use of iterative reconstruction technique FINDINGS: There is no acute ischemic change. Periventricular white matter hypodensities are mild in similar to the prior. There is mild generalized atrophy. There is no intracranial hemorrhage. There is no mass-effect or midline shift. Basal cisterns and ventricles are within normal limits for age/cerebral volume. Orbits are symmetrical and unremarkable. There is mild mucosal thickening in the right maxillary sinus and ethmoid air cells. There are no bony abnormalities. CT/CT head/brain wo IV con IMPRESSION: No acute intracranial abnormality. Mild mucosal thickening involving ethmoid air cells and right maxillary sinus. Chronic atrophy and white matter changes. Electronically signed by: Devon Osorio MD 12/27/2024 05:01 PM EDT
--- NOTE | 2024-12-27 14:43 | ECG_ITS ---
Test Reason : HTN Blood Pressure : */* mmHG Vent. Rate : 96 BPM Atrial Rate : 96 BPM P-R Int : 114 ms QRS Dur : 96 ms QT Int : 398 ms P-R-T Axes : 49 3 33 degrees QTcB Int : 502 ms Normal sinus rhythm Possible Left atrial enlargement Nonspecific ST and T wave abnormality Prolonged QT Abnormal ECG When compared with ECG of 26-Jun-2024 11:12, Nonspecific T wave abnormality now evident in Anterior leads Referred By: Oksana Montalvo Electronically Signed By: KOSTAS MARTELL
--- NOTE | 2024-12-27 15:11 | ED_ITS ---
HPI - General Adult General Chief complaint: General Medical Stated complaint: NOT FEELING HERSELF,219/101 PER EMS Time Seen by Provider: 12/27/24 14:56 Source: patient and EMS Mode of arrival: ambulatory Limitations: no limitations History of Present Illness ED Provider: DILIP Montalvo HPI narrative: This is a 74-year-old female past medical history significant for osteomyelitis, hypertension, CASSANDRA, peripheral artery disease, lower extremity weakness who presents to the emergency department for overall feeling unwell ongoing for the past few days she reports it started 2-3 days ago has been worsening as of today. She reports she is forgetful, weak, confused. She tells me this typically happens when she has a UTI. Last known well time was a few days ago. She denies any urinary urgency, frequency, burning. He tells me she did not take any of her prescribed medications today. Overall she tells me she just does not feel right. She denies chest pain, shortness of breath, nausea, vomiting, abdominal pain, headache, vision changes, dizziness. NIHSS-0 on arrival Related Data Home Medications ?Medication ?Instructions ?Recorded ?Confirmed bupropion HCl 300 mg 24 hr tablet, 300 mg PO DAILY@090 0 08/23/21 12/16/24 extended release levothyroxine 50 mcg tablet 50 mcg PO DAILY@0600 08/2312/16/24 methotrexate sodium 2.5 mg tablet 25 mg PO TU 08/23/21 12/16/24 omeprazole 40 mg capsule,delayed 40 mg PO DAILY@0630 0 08/23/21 12/16/24 release prednisone 1 mg tablet 4 mg PO DAILY 08/23/2112/16 pregabalin 200 mg capsule 200 mg PO BID 01/07/2312/16 folic acid 1 mg tablet 2 mg PO DAILY 10/13/2312/16 bupropion HCl 150 mg 24 hr tablet, 150 mg PO DAILY@090 0 11/25/23 12/16/24 extended release acetaminophen 325 mg tablet 650 mg PO Q4H PRN Moderate Pain 03/04/24 12/16/24 (Tylenol) (Scale Score 5-6) ibuprofen 200 mg tablet 600 mg PO Q6H PRN Pain 05/0312/16/24 melatonin 10 mg tablet 10 mg PO BEDTIME PRN Sleep 0 05/03/24 12/16/24 multivitamin 1 tab PO DAILY 05/03/2411/26 atenolol 25 mg tablet 50 mg PO DAILY 08/29/2411/26 fluticasone propionate 50 1 spray intranasal BID PRN A llergy 08/29/24 12/16/24 mcg/actuation nasal Symptoms spray,suspension biotin 1 mg tablet 1 mg PO DAILY 10/07/2412/16 furosemide 40 mg tablet 40 mg PO DAILY 10/07/2411/26 Previous Rx's ?Medication ?Instructions ?Recorded ondansetron 4 mg disintegrating 4 mg PO Q8H PRN nausea and 08/02/23 tablet vomiting #10 tabs doxazosin 2 mg tablet 2 mg PO BEDTIME #30 tabs oxycodone 20 mg tablet 20 mg PO Q4H PRN pain (scale score 02/27/24 7-10) #20 tabs methenamine hippurate 1 gram tablet 1 g PO DAILY 90 da ys #90 tabs 10/08/24 Allergies Allergy/AdvReac Type Severity Reaction Status Date / Time lisinopril (LISINOPRIL) Allergy Severe ANAPHYLAXIS Verified 12/27/24 14:37 Sulfa (Sulfonamide Allergy Intermediate RASH Verified 12/27/24 14:37 Antibiotics) (SULFA (SULFONAMIDE ANTIBIOTICS)) tramadol (TRAMADOL) Allergy Intermediate RASH Verified 12/27/24 14:37 Piphwjx-MRZ-OmU Reductase Allergy Rash Verified 12/27/24 14:37 Inhibitor (Dsjyslk-Byb-Sqx Reductase Inhibitor) hydrochlorothiazide (HCTZ) AdvReac Unknown ABNORMAL Verified 12/27/24 14:37 LABS? Review of Systems 2 Review of Systems: Yes all other systems are reviewed and are negative COUNT INCLUDES THE [facility] Past Medical History Attestation statement: The following information was validated with the patient. Source: old records reviewed and nursing notes reviewed Medical History Oxygen dependent Oxygen dependent Sepsis History of ESBL E. coli infection Bacteriuria Urinary tract infection due to extended-spectrum beta lactamase (ESBL) producing Escherichia coli History of ESBL E. coli infection Osteomyelitis COPD (chronic obstructive pulmonary disease) Rheumatoid lung Hypothyroidism Congestive heart failure Fibromyalgia HTN (hypertension) Depression Rheumatoid arthritis Surgical History Hx of prior ablation treatment Knee joint replacement status Family History Family History Father No problems noted. Other Heart disease Social History Social History Household Members: None Household Members Other:: 0 Housing: Apartment Do you presently have visiting nurse or other home services: Yes (outside care takers) Alcohol intake: never Comment: bedside commode Patient Tobacco Use Status: Former Tobacco user Tobacco use type: Cigarette e-Cigarette/Vaping Use: Never Used Second Hand Smoke Exposure: No Advance Directives: Yes Advance Directives on File: Yes Advance Directives Date on File: 10/19/23 Do you have a plan to hurt others: No Plan service: No Physical Exam ED Vital Signs: Vital Signs - 24 hr 12/27/24 14:33 12/27/24 15:16 12/27/24 16:35 Temperature 99.8 F Pulse Rate 98 72 79 Respiratory Rate 18 15 15 Blood Pressure 200/108 H 193/102 H 178/96 H Pulse Oximetry 95 94 97 Oxygen Delivery Method Room Air Room Air Room Air 12/27/24 17:33 Temperature 98.6 F Pulse Rate 87 Respiratory Rate 15 Blood Pressure 178/98 H Pulse Oximetry 95 Oxygen Delivery Method Room Air BMI result Body Mass Index 32.8 vss Appearance: Alert.? Oriented X3.? No acute distress.? Head: Normocephalic, atraumatic, no step-offs or deformities Eyes: Pupils equal, round and reactive to light.? Neck: Normal inspection.? Neck supple.? No meningeal signs CVS: Normal heart rate and rhythm.? Pulses normal.? Respiratory: No respiratory distress.? Breath sounds normal.? Abdomen: Soft and nontender.? Skin: Skin warm and dry.? Normal skin color.? Normal skin turgor.? Extremities: No lower extremity edema.? No calf ttp. 5/5 strength to bilateral upper and lower extremities Back: No midline tenderness, no C-spine tenderness, full range of motion, no CVA tenderness bilaterally Neuro: Oriented X 3.? No motor deficit.? No sensory deficit. CN 2-12 intact . Negative Romberg and pronator drift. Normal [id number]. Course Reevaluation(s) Reevaluation #1: CBC with no acute findings. Chemistry unremarkable. Troponin 9.1 will repeat at the 2 hour jese nose reported chest pain or shortness of breath. EKG non diagnostic for chief complaint. Coags unremarkable. Flu, COVID negative. Time: 17:17 Reevaluation #2: Patient is extremely weak. Urine is grossly positive for infection. She also has combination of failure to thrive. Time: 17:39 Reevaluation #3: CT head no acute intracranial abnormality mild mucosal thickening involving the ethmoid air cells and right maxillary sinus. No acute findings. Plan is hospital admission for urinary tract infection Time: 17:40 Medications Administered Generic Name Dose Route Start Last Admin Trade Name Freq PRN Reason Stop Dose Admin Sodium Chloride 500 mls @ 500 mls/hr 12/27/24 17:30 12/27/24 17:32 Ns IV 12/27/24 18:29 500 mls/hr .Q1H EUGENIO Administration Discontinued Medications Generic Name Dose Route Start Last Admin Trade Name Freq PRN Reason Stop Dose Admin Atenolol 50 mg 12/27/24 15:38 12/27/24 15:53 Atenolol 50 Mg Tablet PO 12/27/24 15:39 50 mg ONCE ONE Administration Protocol Ceftriaxone Sodium 1 gm 12/27/24 15:38 12/27/24 16:30 Ceftriaxone Sodium 1 Gm Vial IVPUSH 12/27/24 15:39 1 gm ONCE ONE Administration Ondansetron HCl 4 mg 12/27/24 15:39 12/27/24 15:53 Ondansetron Hcl 4 Mg/2 Ml Vial IVPUSH 12/27/24 15:40 4 mg ONCE ONE Administration Medical Decision Making Medical Decision Making [facility] Narrative: 1443 74 year old female presents w/ weakness, fatigue malaise, confusion ongoing for a few days ( poor historian) unclear LKWT PE benign NIHSS-0 neuro nonfocal History and physical exam concerning for possible UTI versus cystitis. Unlikely meningitis encephalitis. Will rule out metabolic derangements. I do not suspect acute intracranial hemorrhage, stroke, posterior stroke. Plan labs, imaging, urine Differential Diagnosis Differential Diagnoses: The differential diagnosis associated with the presentation includes (History and physical exam concerning for possible UTI versus cystitis. Unlikely meningitis encephalitis. Will rule out metabolic derangements. I do not suspect acute intracranial hemorrhage, stroke, posterior stroke.) Admission/Observation Consideration of admission/observation: Escalation of care including admission/observation considered Consult Healthcare Provider Management of the patient was discussed with: Hospitalist Lab Data MDM Lab Attestation statement: I reviewed the patient's lab results. 12/27/24 15:04 12/27/24 16:20 Labs: Lab Results 12/27/24 12/27/24 12/27/24 Range/Units 15:04 16:20 17:02 WBC 6.1 (4.8-10.8) X10*3/uL RBC 4.45 (4.20-5.50) X10*6/uL Hgb 13.4 (12.0-16.0) g/dl Hct 38.7 (37.0-47.0) % MCV 87.0 (80.0-98.0) fL MCH 30.1 (27.0-33.0) pg MCHC 34.6 (31.0-35.0) g/dl RDW 13.8 (11.0-16.0) % Plt Count 256 D (160-400) X10*3/uL MPV 10.1 (9.4-12.3) fL Immature Gran % (Auto) 0.5 H (0.0-0.4) % Neut % (Auto) 62.7 (45-73) % Lymph % (Auto) 20.9 (20-40) % Coffey % (Auto) 13.3 H (2-11) % Eos % (Auto) 2.3 (0-4) % Baso % (Auto) 0.3 (0-2) % Lymph # (Auto) 1.3 (1.2-4.9) X10*3/uL [place]y # (Auto) 0.8 (0.1-1.2) X10*3/uL Eos # (Auto) 0.1 (0.0-0.4) X10*3/uL Baso # (Auto) 0.0 (0.0-0.2) X10*3/uL Abs Immat Gran (auto) 0.03 (0.00-0.03) X10*3/uL Absolute Neuts (auto) 3.8 (2.0-8.3) x10*3/uL Absolute Nucleated RBC 0.000 (0.0-0.012) X10*3/uL Nucleated RBC % (auto) 0.0 (0.0-0.2) /100WBC PT 11.8 (10.9-12.4) SEC INR 1.0 (0.9-1.1) Sodium 138 (135-145) mmol/L Potassium 3.6 (3.3-5.1) mmol/L Chloride 105 (96-108) mmol/L Carbon Dioxide 22 (22-29) mmol/L Anion Gap 15 (12-20) BUN 11 (9-16) mg/dL Creatinine 0.79 (0.5-1.4) mg/dL Estim Creat Clear Calc 76.2 Estimated GFR > 60 Random Glucose 79 (60-115) mg/dL Lactic Acid 1.0 (0.5-2.0) mmol/L Calcium 9.0 (8.4-10.2) mg/dL Magnesium 2.2 (1.6-2.6) mg/dL Total Bilirubin 0.4 (0.0-1.0) mg/dL AST 23 (5-31) U/L ALT 12 (0-31) U/L Alkaline Phosphatase 97 (39-117) U/L Troponin I High Sens 9.1 D (<3.5-17.0) ng/L Total Protein 7.4 (6.5-8.0) g/dL Albumin 3.6 (3.5-5.0) g/dL Urine Color Yellow Urine Appearance Clear Urine pH 5.5 (5.0-9.0) Ur Specific [place] 1.020 (1.005-1.025) Urine Protein 30 (1+) H (Neg-Trace) mg/dL Urine Glucose (UA) Negative (Negative) mg/dL Urine Ketones 80 (Negative) mg/dL Urine Blood Small (1+) H (Negative) Urine Nitrite Positive H (Negative) Ur Leukocyte Esterase Small (1+) H (Negative) Urine RBC 0-2 (0-2) /HPF Urine WBC 6-10 (0-5) /HPF Ur Squamous Epith Cells 6-10 (0-2) /HPF Urine Bacteria 4+ (None Seen) Hyaline Casts 3-5 (0-2) /LPF COVID-19 (KERRI) Negative (Negative) COVID-19 Clin Com See Note Influenza Type A (OCTAVIO) Negative (Negative) Influenza Type B (OCTAVIO) Negative (Negative) Influenza A & B Note See Note Independent Interpretation I performed an independent interpretation of an: EKG (Normal sinus rhythm Possible Left atrial enlargement Nonspecific ST and T wave abnormality Prolonged QT Abnormal ECG When compared with ECG of 26-Jun-2024 11:12,) and CT Scan (CT/CT head/brain wo IV con IMPRESSION: No acute intracranial abnormality. Mild mucosal thickening involving ethmoid air cells and right maxillary sinus. Chronic atrophy and white matter changes.) Radiology Impression Discussion of test interpretation with radiology: I have reviewed the radiologist's reading. External Record Review External record reviewed: Inpatient record, Office record, Outpatient record, Prior outpatient labs, Prior outpatient radiology, Primary care record and Outside ED record Chronic Conditions Patient?s care impacted by: Other (see hpi ) Critical Care Time Critical Care Time Critical Care Time: Yes Total Critical Care Time: 35 Attestation: I attest to this time spent taking care of the patient, obtaining history, physical, reviewing labs, imaging, treatment of patients condition +/- specialist/hospitalist consult +/- procedure Discharge Plan Discharge Clinical Impression: Altered mental status, Encephalopathy Patient Disposition: Admitted As Inpatient Print Language: Urdu
[2024-12-27 15:16] LABS: MANUAL DIFF FLAG NO
[2024-12-27 15:26] LABS: INTERNATIONAL NORM RATIO 1.0 (0.9-1.1); Prothrombin Time 11.8 SEC (10.9-12.4)
--- OUTSIDE RECORDS SUMMARY | 2024-12-27 15:30 | XMS_ITS | Encounter Summary ---
Author Organization [facility] Address [address] [place] [address] Care Team Providers Care Grounds Worker Name Role Phone Travis Holbrook MD Primary Care Provider [phone] Encounter Details Date Type Department Care Team (Late st Contact Info) Description 03/16/2024 Lab Requisition [facility] - Main Lab [address] [facility] [place] [address] Lavonne Irvin MD [address] [place], [place] [id number] Essential (primary) hypertension; Acute kidney failure, unspecified [...] mmol/L LAB CHEMISTRY METHOD 03/18/2024 1:26 PM [facility] Potassium 4.1 3.5 - 5.5 mmol/L LAB CHEMISTRY METHOD 03/18/2024 1:26 PM [facility] Chloride 104 96 - 110 mmol/L LAB CHEMISTRY METHOD 03/18/2024 1:26 PM [facility] CO2 31 21 - 32 mmol/L LAB CHEMISTRY METHOD 03/18/2024 1:26 PM [facility] Anion Gap 2(L) 3 - 11 LAB CHEMISTRY METHOD 03/18/2024 1:26 PM [facility] Glucose 75 70 - 100 mg/dL LAB CHEMISTRY METHOD 03/18/2024 1:26 PM [facility] BUN 23 5 - 25 mg/dL LAB CHEMISTRY METHOD 03/18/2024 1:26 PM [facility] Creatinine 1.30(H) 0.50 - 1.10 mg/dL LAB CHEMISTRY METHOD 03/18/2024 1:26 PM [facility] eGFR 44(L) >=60 mL/min/1. 73m2 LAB CHEMISTRY METHOD 03/18/2024 1:26 PM [facility] Comment:Calculation based on the Chronic Kidney Disease Epidemiology Collaboration (CKD-EPI) equation refit without adjustment for race. BUN/Creatinine Ratio 17.7 LAB CHEMISTRY METHOD 03/18/2024 1:26 PM [facility] Calcium 8.9 8.5 - 10.5 mg/dL LAB CHEMISTRY METHOD 03/18/2024 1:26 PM [facility] Blood Venous blood specimen / Unknown Venipuncture / Unknown 03/18/2024 7:09 AM EST 03/18/2024 11:39 AM EST us Lavonne Irvin MD LAB BLOOD ORDERABLES Final Resul t [facility] [address] [place] [address], * (ABNORMAL) Complete blood count (03/18/2024 7:09 AM EST) [facility] WBC 6.3 4.8 - 10.8 K/mcL LAB HEMETOLOGY METHOD 03/18/2024 11:57 AM EST [facility] RBC 3.90 3.80 - 4.80 M/mcL LAB HEMETOLOGY METHOD 03/18/2024 11:57 AM EST [facility] Hemoglobin 11.6 11.5 - 16.0 g/dL LAB HEMETOLOGY METHOD 03/18/2024 11:57 AM [facility] Hematocrit 37.4 35.0 - 47.0 % LAB HEMETOLOGY METHOD 03/18/2024 11:57 AM [facility] MCV 97.1 79.0 - 98.0 FL LAB HEMETOLOGY METHOD 03/18/2024 11:57 AM [facility] MCH 30.1 27.0 - 32.0 pcg LAB HEMETOLOGY METHOD 03/18/2024 11:57 AM [facility] MCHC 31.0(L) 32.0 - 37.0 g/dL LAB HEMETOLOGY METHOD 03/18/2024 11:57 AM EST [facility] RDW 15.9(H) 11.0 - 15.0 % LAB HEMETOLOGY METHOD 03/18/2024 11:57 AM [facility] Platelets 148 130 - 400 K/mcL LAB HEMETOLOGY METHOD 03/18/2024 11:57 AM EST [facility] MPV 11.0 7.0 - 11.0 FL LAB HEMETOLOGY METHOD 03/18/2024 11:57 AM EST [facility] NRBC 0.0 <1.0 % LAB HEMETOLOGY METHOD 03/18/2024 11:57 AM EST [facility] NRBC Absolute 0.00 <0.10 K/mcL LAB HEMETOLOGY METHOD 03/18/2024 11:57 AM EST [facility] Blood Venous blood specimen / Unknown Venipuncture / Unknown 03/18/2024 7:09 AM EST 03/18/2024 11:39 AM EST us Lavonne Irvin MD LAB BLOOD ORDERABLES Final Resul t [facility] [address] [place] [address], documented in this encounter Visit Diagnoses Diagnosis Essential (primary) hypertension Unspecified essential hypertension Acute kidney failure, unspecified (CMS/HCC V24) Acute kidney failure, unspecified documented in this encounter Care Teams Grounds Worker Relationship Specialty Start Date End Date Travis Holbrook MD [address] [place] [address], [id number] PCP - General Family Medicine 02/28/24 documented as of this encounter
--- OUTSIDE RECORDS SUMMARY | 2024-12-27 15:30 | XMS_ITS | Encounter Summary ---
Author Organization [facility] Address [address] [place] [address] Care Team Providers Care Food And Beverage Director Name Role Phone Travis Holbrook MD Primary Care Provider [phone] Encounter Details Date Type Department Care Team (Late st Contact Info) Description 07/03/2024 Lab Requisition [facility] - Main Lab [address] [facility] [place] [address] Travis Holbrook MD [address] [place] [address] [address] [facility] [phone] Other jail (current) drug therapy Social History [...] PANEL Routine 07/03/2024 11:40 AM EDT 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 documented in this encounter Results * (ABNORMAL) Comprehensive metabolic panel (07/03/2024 11:40 AM EDT) Sodium 134 133 - 145 mmol/L LAB CHEMISTRY METHOD 07/03/2024 2:18 PM EDT [facility] Potassium 4.7 3.5 - 5.5 mmol/L LAB CHEMISTRY METHOD 07/03/2024 2:18 PM [facility] Chloride 99 96 - 110 mmol/L LAB CHEMISTRY METHOD 07/03/2024 2:18 PM [facility] CO2 28 21 - 32 mmol/L LAB CHEMISTRY METHOD 07/03/2024 2:18 PM [facility] Anion Gap 7 3 - 11 LAB CHEMISTRY METHOD 07/03/2024 2:18 PM [facility] Glucose 79 70 - 100 mg/dL LAB CHEMISTRY METHOD 07/03/2024 2:18 PM [facility] BUN 19 5 - 25 mg/dL LAB CHEMISTRY METHOD 07/03/2024 2:18 PM [facility] Creatinine 1.09 0.50 - 1.10 mg/dL LAB CHEMISTRY METHOD 07/03/2024 2:18 PM [facility] eGFR 54(L) >=60 mL/min/1. 73m2 LAB CHEMISTRY METHOD 07/03/2024 2:18 PM [facility] Comment:Calculation based on the Chronic Kidney Disease Epidemiology Collaboration (CKD-EPI) equation refit without adjustment for race. BUN/Creatinine Ratio 17.4 LAB CHEMISTRY METHOD 07/03/2024 2:18 PM [facility] Calcium 9.2 8.5 - 10.5 mg/dL LAB CHEMISTRY METHOD 07/03/2024 2:18 PM [facility] AST (SGOT) 23 10 - 42 unit/L LAB CHEMISTRY METHOD 07/03/2024 2:18 PM [facility] ALT (SGPT) 33 10 - 60 unit/L LAB CHEMISTRY METHOD 07/03/2024 2:18 PM [facility] Alkaline Phosphatase 129(H) 42 - 121 unit/L LAB CHEMISTRY METHOD 07/03/2024 2:18 PM [facility] Total Protein 6.6 6.0 - 8.0 g/dL LAB CHEMISTRY METHOD 07/03/2024 2:18 PM EDT [facility] Albumin 2.6(L) 3.2 - 5.0 g/dL LAB CHEMISTRY METHOD 07/03/2024 2:18 PM EDT [facility] Total Bilirubin 0.4 0.0 - 1.4 mg/dL LAB CHEMISTRY METHOD 07/03/2024 2:18 PM EDT [facility] Blood Venous blood specimen / Unknown 07/03/2024 11:40 AM EDT 07/03/2024 1:16 PM EDT us Travis Holbrook MD LAB BLOOD ORDERABLES Final Resul t [facility] [address] [place] [address], documented in this encounter Visit Diagnoses Diagnosis 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
--- OUTSIDE RECORDS SUMMARY | 2024-12-27 15:30 | XMS_ITS | Clinical Summary ---
Author Organization [address] Address [address] [place] [phone] Phone Care Team Providers Care Electronic Publications Specialist Name Role Phone Travis Holbrook MD Primary Care Provider [phone] Allergies Active Allergy Reactions Criticality Noted Date Comments Adhesive Tape-Silicones Low 02/06/2017 Tape Other Reaction(s): Rash/Dermatitis Chlorthalidone Medium 08/08/2017 Hypokalemia Hydrochlorothiazide High 02/07/2017 Hyponatremia Lisinopril Anaphylaxis,Swell ing High 02/06/2017 anaphylaxis, 2017 [facility] Qvimlsh-Wtm-Kws Reductase Inhibitors 02/06/2017 Statins [Hmg-coa-r Inhibitors] Leg weakness leg pain Sulfa (Sulfonamide Antibiotics) Low 02/06/2017 Sulfa Drugs Other Reaction(s): Rash/Dermatitis Tramadol Low 02/06/2017 Other Reaction(s): Rash/Dermatitis serotonin syndrome , while she was also taking Cymbalta, 2017 Tremor Active Problems Problem Noted Date Diagnosed Date Chronic foot ulcer ([facility] V24, [facility] V28) Chronic patellofemoral pain of left knee 023 Difficult intubation 08/25/2022 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 Gait instability 08/25/2022 Polycythemia vera ([facility] V24, [facility] V28) 03/2022 Post-traumatic osteoarthritis of right knee 03/2022 Proximal muscle weakness 08/25/2022 Right medial tibial plateau fracture, closed, initial encounter 08/25/2022 Urinary incontinence 08/25/2022 Anxiety 08/24/2022 Bronchiectasis ([facility] V24, [facility] V28) 2022 Chronic lower back pain 08/24/2022 COPD (chronic obstructive pu lmonary disease) ([facility] V24, [facility] V28) 08/24/2022 Depression 08/24/2022 GERD (gastroesophageal reflux disease) Jose's thyroiditis 08/24/2022 HLD (hyperlipidemia) 08/24/2022 Lymphedema 08/24/2022 Polycythemia 08/24/2022 Rheumatoid arthritis ([facility] V24, [facility] V28) 08/24/2022 Rheumatoid lung ([facility] V24, [facility] V28) 08/24 Vitamin D deficiency 08/24/2022 Lymphedema of left lower extremity 05/13/2020 Overview (04/19/2024): Last Assessment & Plan: Stable at baseline. Takes Lasix as needed for extra leg swelling present. Bronchiectasis without compl ication ([facility] V24, [facility] V28) 01/10/2019 Overview (04/19/2024): Last Assessment & [...] ng multiple sites with positive rheumatoid factor ([facility] V24, [facility] V28) 10/09/2017 Overview (04/19/2024): Last Assessment & Plan: Stable at baseline, although some increased pain recently in right knee due to insufficiency fracture. F/u with Dr. Hair as scheduled. Rheumatoid lung disease ([facility] V24, [facility] V2 8) 10/09/2017 Overview (04/19/2024): Last Assessment & Plan: Stable, with close monitoring by Dr. Ordonez of pulmonology. Continue current therapies. Centrilobular emphysema ([facility] V24, [facility] V2 8) 08/23/2017 Overview (04/19/2024): [...] Last Done Comments Breast Cancer Screening 1950 Colorectal Cancer Screening: Colonoscopy 1950 DTaP,Tdap,and Td Vaccines (1 - Tdap) 02/12/1971 Pneumococcal Vaccine: 50+ Years (1 of 2 - PCV) 02/12/1971 Zoster Vaccines (1 of 2) 02/12/1971 RSV Immunization Adult Patients (1 - Risk 60-74 years 1-dose series) 2012 COVID-19 Vaccine (3 - Moderna risk series) 07/23/2020 06/25/2020, 05/28/2020 Falls Risk Assessment 02/22/2022 Hepatitis C Screening [...] LAB CHEMISTRY METHOD 07/22/2024 11:53 AM EDT [facility] Potassium 3.7 3.5 - 5.5 mmol/L LAB CHEMISTRY METHOD 07/22/2024 11:53 AM [facility] Chloride 103 96 - 110 mmol/L LAB CHEMISTRY METHOD 07/22/2024 11:53 AM [facility] CO2 32 21 - 32 mmol/L LAB CHEMISTRY METHOD 07/22/2024 11:53 AM [facility] Anion Gap 8 3 - 11 LAB CHEMISTRY METHOD 07/22/2024 11:53 AM [facility] Glucose 63(L) 70 - 100 mg/dL LAB CHEMISTRY METHOD 07/22/2024 11:53 AM [facility] BUN 24 5 - 25 mg/dL LAB CHEMISTRY METHOD 07/22/2024 11:53 AM [facility] Creatinine 1.30(H) 0.50 - 1.10 mg/dL LAB CHEMISTRY METHOD 07/22/2024 11:53 AM [facility] eGFR 44(L) >=60 mL/min/1. 73m2 LAB CHEMISTRY METHOD 07/22/2024 11:53 AM [facility] Comment:Calculation based on the Chronic Kidney Disease Epidemiology Collaboration (CKD-EPI) equation refit without adjustment for race. BUN/Creatinine Ratio 18.5 LAB CHEMISTRY METHOD 07/22/2024 11:53 AM [facility] Calcium 8.7 8.5 - 10.5 mg/dL LAB CHEMISTRY METHOD 07/22/2024 11:53 AM [facility] Blood Venous blood specimen / Unknown Venipuncture / Unknown 07/22/2024 5:17 AM EDT 07/22/2024 9:39 AM EDT us Travis Holbrook MD LAB BLOOD ORDERABLES Final Resul t [facility] [address] [place] [address], * Lipid panel (07/06/2022) LDL/HDL Ratio 0 [...] Most Recently Relevant to Health Maintenance Insurance [address] [place] [id number] MEDICAID - [place] [employer] MEDICARE Care Teams Electronic Publications Specialist Relationship Specialty Start Date End Date Travis Holbrook MD [address] [place] [address] [address] [place], [phone] PCP - General Family Medicine 02/28/24
--- OUTSIDE RECORDS SUMMARY | 2024-12-27 15:30 | XMS_ITS | Encounter Summary ---
Author Organization [facility] Address [address] [place] [address] Care Team Providers Care Ham Trimmer Name Role Phone Travis Holbrook MD Primary Care Provider [phone] Encounter Details Date Type Department Care Team (Late st Contact Info) Description 07/03/[address] [facility] - Main Lab [address] [facility] [place] [address] Travis Holbrook MD [address] [place] [address] 204 [facility] [address] Muscle weakness (generalized); Emphysema, unspecified [...] AM EDT) WBC 7.8 4.8 - 10.8 K/[facility] LAB HEMETOLOGY METHOD 07/03/2024 10:02 AM [facility] RBC 3.80 3.80 - 4.80 M/mcL LAB HEMETOLOGY METHOD 07/03/2024 10:02 AM [facility] Hemoglobin 11.4(L) 11.5 - 16.0 g/dL LAB HEMETOLOGY METHOD 07/03/2024 10:02 AM [facility] Hematocrit 36.8 35.0 - 47.0 % LAB HEMETOLOGY METHOD 07/03/2024 10:02 AM [facility] MCV 96.6 79.0 - 98.0 FL LAB HEMETOLOGY METHOD 07/03/2024 10:02 AM [facility] MCH 29.9 27.0 - 32.0 pcg LAB HEMETOLOGY METHOD 07/03/2024 10:02 AM [facility] MCHC 31.0(L) 32.0 - 37.0 g/dL LAB HEMETOLOGY METHOD 07/03/2024 10:02 AM [facility] RDW 16.3(H) 11.0 - 15.0 % LAB HEMETOLOGY METHOD 07/03/2024 10:02 AM [facility] Platelets 202 130 - 400 K/mcL LAB HEMETOLOGY METHOD 07/03/2024 10:02 AM [facility] MPV 12.5(H) 7.0 - 11.0 FL LAB HEMETOLOGY METHOD 07/03/2024 10:02 AM [facility] NRBC 0.0 <1.0 % LAB HEMETOLOGY METHOD 07/03/2024 10:02 AM [facility] NRBC Absolute 0.00 <0.10 K/mcL LAB HEMETOLOGY METHOD 07/03/2024 10:02 AM [facility] Blood Venous blood specimen / Unknown Venipuncture / Unknown 07/03/2024 5:14 AM EDT 07/03/2024 9:27 AM EDT us Travis Holbrook MD LAB BLOOD ORDERABLES Final Resul t [facility] ([facility] [address] [place] [address], documented in this encounter Visit Diagnoses Diagnosis Muscle weakness (generalized) Emphysema, unspecified (CMS/HCC V24, CMS/HCC V28) documented in this encounter Care Teams Ham Trimmer Relationship Specialty Start Date End Date Travis Holbrook MD [address] [place] [address], [phone] PCP - General Family Medicine 02/28/24 documented as of this encounter
--- OUTSIDE RECORDS SUMMARY | 2024-12-27 15:30 | XMS_ITS | Encounter Summary ---
Author Organization [facility] Address [address] [place] [address] Care Team Providers Care Watershed Program Manager Name Role Phone Travis Holbrook MD Primary Care Provider [phone] Encounter Details Date Type Department Care Team (Late st Contact Info) Description 03/07/2024 Lab Requisition [facility] - Main Lab [address] [facility] [place] [address] Lavonne Irvin MD [address] [place], [place] [id number] Essential (primary) hypertension; Acute kidney failure, unspecified [...] mmol/L LAB CHEMISTRY METHOD 03/07/2024 11:23 AM [facility] Potassium 4.5 3.5 - 5.5 mmol/L LAB CHEMISTRY METHOD 03/07/2024 11:23 AM [facility] Chloride 106 96 - 110 mmol/L LAB CHEMISTRY METHOD 03/07/2024 11:23 AM [facility] CO2 29 21 - 32 mmol/L LAB CHEMISTRY METHOD 03/07/2024 11:23 AM [facility] Anion Gap 5 3 - 11 LAB CHEMISTRY METHOD 03/07/2024 11:23 AM [facility] Glucose 78 70 - 100 mg/dL LAB CHEMISTRY METHOD 03/07/2024 11:23 AM [facility] BUN 25 5 - 25 mg/dL LAB CHEMISTRY METHOD 03/07/2024 11:23 AM [facility] Creatinine 1.27(H) 0.50 - 1.10 mg/dL LAB CHEMISTRY METHOD 03/07/2024 11:23 AM [facility] eGFR 45(L) >=60 mL/min/1. 73m2 LAB CHEMISTRY METHOD 03/07/2024 11:23 AM [facility] Comment:Calculation based on the Chronic Kidney Disease Epidemiology Collaboration (CKD-EPI) equation refit without adjustment for race. BUN/Creatinine Ratio 19.7 LAB CHEMISTRY METHOD 03/07/2024 11:23 AM [facility] Calcium 8.6 8.5 - 10.5 mg/dL LAB CHEMISTRY METHOD 03/07/2024 11:23 AM [facility] Blood Venous blood specimen / Unknown Venipuncture / Unknown 03/07/2024 6:00 AM EST 03/07/2024 10:35 AM EST us Lavonne Irvin MD LAB BLOOD ORDERABLES Final Resul t [facility] [address] [place] [address], * (ABNORMAL) Complete blood count (03/07/2024 6:00 AM EST) [facility] Signature WBC 4.8 4.8 - 10.8 K/mcL LAB HEMETOLOGY METHOD 03/07/2024 10:54 AM EST [facility] RBC 3.70(L) 3.80 - 4.80 M/mcL LAB HEMETOLOGY METHOD 03/07/2024 10:54 AM [facility] Hemoglobin 11.1(L) 11.5 - 16.0 g/dL LAB HEMETOLOGY METHOD 03/07/2024 10:54 AM [facility] Hematocrit 34.6(L) 35.0 - 47.0 % LAB HEMETOLOGY METHOD 03/07/2024 10:54 AM [facility] MCV 94.3 79.0 - 98.0 FL LAB HEMETOLOGY METHOD 03/07/2024 10:54 AM [facility] MCH 30.2 27.0 - 32.0 pcg LAB HEMETOLOGY METHOD 03/07/2024 10:54 AM [facility] MCHC 32.1 32.0 - 37.0 g/dL LAB HEMETOLOGY METHOD 03/07/2024 10:54 AM [facility] RDW 15.2(H) 11.0 - 15.0 % LAB HEMETOLOGY METHOD 03/07/2024 10:54 AM [facility] Platelets 211 130 - 400 K/mcL LAB HEMETOLOGY METHOD 03/07/2024 10:54 AM [facility] MPV 10.3 7.0 - 11.0 FL LAB HEMETOLOGY METHOD 03/07/2024 10:54 AM [facility] NRBC 0.0 <1.0 % LAB HEMETOLOGY METHOD 03/07/2024 10:54 AM EST [facility] NRBC Absolute 0.00 <0.10 K/mcL LAB HEMETOLOGY METHOD 03/07/2024 10:54 AM EST [facility] Blood Venous blood specimen / Unknown Venipuncture / Unknown 03/07/2024 6:00 AM EST 03/07/2024 10:35 AM EST us Lavonne Irvin MD LAB BLOOD ORDERABLES Final Resul t [facility] [address] [place] [address], documented in this encounter Visit Diagnoses Diagnosis Essential (primary) hypertension Unspecified essential hypertension Acute kidney failure, unspecified (CMS/HCC V24) Acute kidney failure, unspecified documented in this encounter Care Teams Watershed Program Manager Relationship Specialty Start Date End Date Travis Holbrook MD [address] [place] [address] [address] [place], [phone] PCP - General Family Medicine 02/28/24 documented as of this encounter
--- OUTSIDE RECORDS SUMMARY | 2024-12-27 15:30 | XMS_ITS | Patient Health Record ---
Author Organization [facility] Address [address] [place] [address] Care Team Providers Care Real Estate Manager Name Role Phone Namita Acosta NP Primary Care Provider Jose Pizarro Unavailable [phone] Allergies Allergen (clinical drug ingredient) Drug/Non Drug Allergy documented on EMR Reaction Allergy Type Onset Date Status Adhesive rash Allergy Active Fentanyl and Related rash Drug Allergy Active hydrocortisone Hydrocortisone rash Drug Allergy Active lisinopril Lisinopril anaphylaxis Drug Allergy Act shawanda Substance with 3-zxiehny-9-methylg lutaryl-coenzyme A reductase inhibitor mechanism of action [...] day(s) Active Vitamin D (Ergocalciferol) 1.25 MG (26765 UT) TAKE 1 CAPSULE BY MOUTH 1 [...] atherosclerosis of arteries of lower limbs (disorder) (12053229800724082 ) Atherosclerosis of [place] artery of both lower extremities, with unspecified presence of clinical manifestation (I70.203) Active confirmed Problem Rheumatoid arthritis (25242229) Rheumatoid arthritis involving both feet, unspecified whether rheumatoid factor present (M06.9) Active confirmed Plan Of Treatment Pending Test Test Name Order Date [id number] SKIN/TISSUE 12/17/2021 [id number] SKIN/TISSUE 01/21/2022 [id number] SKIN/TISSUE 05/25/2022 [id number] I&D ABSCESS- SIMPLE,SINGLE 023 16810 I&D ABSCESS- SIMPLE,SINGLE 022 Insurance Providers Payer Name Payer Address Payer Phone Subscriber Number Group Number Insured Name Patient Relationship to Insured Coverage Start Date Coverage End Date [employer] Medicare Adv-[id number] [address] [address] [place] [address] [id number] Alexandrea Renee Self - patient is the [...] ribs- CT -sameday went back 09/12/21 09/10/21 [facility]expiration rheumatoid lung-overnight 07/2021
--- OUTSIDE RECORDS SUMMARY | 2024-12-27 15:30 | XMS_ITS | Encounter Summary ---
Author Organization [facility] Address [address] [place] [address] Care Team Providers Care Hemmer Automatic Name Role Phone Travis Holbrook MD Primary Care Provider [phone] Encounter Details Date Type Department Care Team (Late st Contact Info) Description 03/22/2024 Lab Requisition [facility] - Main Lab 299 [facility] [place] [address] Lavonne Irvin MD [address] [place] [address] Essential (primary) hypertension; Acute kidney failure, unspecified [...] unspecified documented in this encounter Care Teams Hemmer Automatic Relationship Specialty Start Date End Date Travis Holbrook MD [address] [place] [address] 204 [facility] [phone] PCP - General Family Medicine 02/28/24 documented as of this encounter
--- OUTSIDE RECORDS SUMMARY | 2024-12-27 15:30 | XMS_ITS | Patient Health Record ---
Author Organization [facility] Address [address] [facility] [address] [place] [address] Care Team Providers Care Insurance Licensing Supervisor Name Role Phone Carlos Alberto Murray Primary Care Provider Eduardo Carr MD MSc, Juju Unavailable [phone] Johnny Blanco Unavailable Unavailable Allergies Allergen (clinical [...] Status W/U Status Risk Notes Problem Sciatica (48606202) Sciatica (724.3) Active confirmed Problem Lumbosacral spondylosis without myelopathy (33511626) Lumbosacral spondylosis without myelopathy (721.3) Active confirmed Problem Muscle pain (94525457) Unspecified myalgia and myositis (729.1) Active confirmed Problem Postherpetic polyneuropathy (31128136) 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) Active confirmed Problem Lumbosacral spondylosis without myelopathy (disorder) (78865528) Spondylosis without myelopathy or radiculopathy, lumbosacral region (M47.817) Active confirmed Problem Lumbosacral spondylosis without myelopathy (67783455) Other spondylosis, lumbar region (M47.896) Active confirmed Problem High risk drug monitoring status (628213063) 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 (Z79.891) Active confirmed Problem Lumbar spondylosis (927000420) Lumbar spondylosis (M47.816) Active confirmed Problem Left shoulder pain (3504939268) Left shoulder pain (M25.512) Active confirmed Problem Spondylosis (2930626) Spondylosis (M47.9) Active confirmed Problem Postherpetic neuralgia (6185861) Postherpetic neuralgia (B02.29) Active confirmed Problem Shoulder pain (93053409) Shoulder pain (M25.519) Active confirmed Plan Of [...] MEDICARE [place]GS [address] [place] [phone] [id number] Alexandrea Renee Self - patient is the insured Medical (General) History Medical History History ICD Code Depression Hypercholesterolemia Arthritis Fibromyalgia OCD peripheral neuropathy Surgical History Surgery Date(Month/Year) L knee replacement 2003 L knee revision 2010 Uterine Ablation Tubal Ligation R knee Meniscus repair 2011
--- OUTSIDE RECORDS SUMMARY | 2024-12-27 15:30 | XMS_ITS | Encounter Summary ---
Author Organization [facility] Address [address] [place] [address] Care Team Providers Care Pigment Mixer Name Role Phone Travis Holbrook MD Primary Care Provider [phone] Encounter Details Date Type Department Care Team (Late st Contact Info) Description 03/08/2024 Lab Requisition [facility] - Main Lab 299 [facility] [place] [address] Lavonne Irvin MD [address] [place], [place] [phone] Essential (primary) hypertension; Acute kidney failure, unspecified [...] [facility] Comment:Calculation based on the Chronic [...] MD LAB BLOOD ORDERABLES Final Resul t [facility] [address] [place] [address], * (ABNORMAL) Complete blood count (03/11/2024 7:17 AM EST) [facility] Signature WBC 4.7(L) 4.8 - 10.8 K/mcL LAB HEMETOLOGY METHOD 03/11/2024 11:48 AM EST [facility] RBC 3.70(L) 3.80 - [...] LAB HEMETOLOGY METHOD 03/11/2024 11:48 AM EST [facility] MCH 30.4 27.0 - [...] 03/11/2024 11:48 AM [facility] MPV 10.6 7.0 - 11.0 FL LAB HEMETOLOGY METHOD 03/11/2024 11:48 AM [facility] NRBC 0.0 <1.0 % LAB HEMETOLOGY METHOD 03/11/2024 11:48 AM EST [facility] NRBC Absolute 0.00 <0.10 K/mcL LAB HEMETOLOGY METHOD 03/11/2024 11:48 AM EST [facility] Blood Venous blood specimen / Unknown Venipuncture / Unknown 03/11/2024 7:17 AM EST 03/11/2024 11:24 AM EST us Lavonne Irvin MD LAB BLOOD ORDERABLES Final Resul t [facility] [address] [place] [address], documented in this encounter Visit Diagnoses Diagnosis Essential (primary) hypertension Unspecified essential hypertension Acute kidney failure, unspecified (CMS/HCC V24) Acute kidney failure, unspecified documented in this encounter Care Teams Pigment Mixer Relationship Specialty Start Date End Date Travis Hoblrook MD [address] [place] [address], [phone] PCP - General Family Medicine 02/28/24 documented as of this encounter
--- OUTSIDE RECORDS SUMMARY | 2024-12-27 15:30 | XMS_ITS | Encounter Summary ---
Author Organization [facility] Address [address] [place] [address] Care Team Providers Care Business Services Clerk Name Role Phone Travis Holbrook MD Primary Care Provider [phone] Encounter Details Date Type Department Care Team (Late st Contact Info) Description 03/05/2024 Lab Requisition [facility] - Main Lab [address] [facility] [place] [address] Travis Holbrook MD [address] [place] [phone] Other care home (current) drug therapy Social History Tobacco Use [...] of this encounter Visit Diagnoses Diagnosis Other care home (current) drug therapy documented in this encounter Care Teams Business Services Clerk Relationship Specialty Start Date End Date Travis Holbrook MD [address] [facility] 204 [facility] [phone] PCP - General Family Medicine 02/28/24 documented as of this encounter
--- OUTSIDE RECORDS SUMMARY | 2024-12-27 15:30 | XMS_ITS | Encounter Summary ---
Author Organization [facility] Address [address] [place] [address] Care Team Providers Care Or Manager Name Role Phone Travis Holbrook MD Primary Care Provider [phone] Encounter Details Date Type Department Care Team (Late st Contact Info) Description 07/19/2024 Lab Requisition [facility] - Main Lab 299 [facility] [place] [address] Travis Holbrook MD [address] [place] [address] 204 [facility] [address] Muscle weakness (generalized); Emphysema, unspecified [...] mmol/L LAB CHEMISTRY METHOD 07/22/2024 11:53 AM [facility] Potassium 3.7 3.5 - 5.5 mmol/L LAB CHEMISTRY METHOD 07/22/2024 11:53 AM [facility] Chloride 103 96 - 110 mmol/L LAB CHEMISTRY METHOD 07/22/2024 11:53 AM [facility] CO2 32 21 - 32 mmol/L LAB CHEMISTRY METHOD 07/22/2024 11:53 AM [facility] Anion Gap 8 3 - 11 LAB CHEMISTRY METHOD 07/22/2024 11:53 AM [facility] Glucose 63(L) 70 - 100 mg/dL LAB CHEMISTRY METHOD 07/22/2024 11:53 AM [facility] BUN 24 5 - 25 mg/dL LAB CHEMISTRY METHOD 07/22/2024 11:53 AM [facility] Creatinine 1.30(H) 0.50 - 1.10 mg/dL LAB CHEMISTRY METHOD 07/22/2024 11:53 AM [facility] eGFR 44(L) >=60 mL/min/1. 73m2 LAB CHEMISTRY METHOD 07/22/2024 11:53 AM [facility] Comment:Calculation based on the Chronic Kidney Disease Epidemiology Collaboration (CKD-EPI) equation refit without adjustment for race. BUN/Creatinine Ratio 18.5 LAB CHEMISTRY METHOD 07/22/2024 11:53 AM [facility] Calcium 8.7 8.5 - 10.5 mg/dL LAB CHEMISTRY METHOD 07/22/2024 11:53 AM [facility] Blood Venous blood specimen / Unknown Venipuncture / Unknown 07/22/2024 5:17 AM EDT 07/22/2024 9:39 AM EDT us Travis Holbrook MD LAB BLOOD ORDERABLES Final Resul t [facility] [address] [place] [address], [place] [phone] * (ABNORMAL) Complete blood count (07/22/2024 5:17 AM EDT) WBC 5.3 4.8 - 10.8 K/mcL LAB HEMETOLOGY METHOD 07/22/2024 10:[address] [facility] RBC 4.00 3.80 - 4.80 M/mcL LAB HEMETOLOGY METHOD 07/22/2024 10:[address] [facility] Hemoglobin 11.6 11.5 - 16.0 g/dL LAB HEMETOLOGY METHOD 07/22/2024 10:02 AM [facility] Hematocrit 37.5 35.0 - 47.0 % LAB HEMETOLOGY METHOD 07/22/2024 10:[address] [facility] MCV 94.9 79.0 - 98.0 FL LAB HEMETOLOGY METHOD 07/22/2024 10:[address] [facility] MCH 29.4 27.0 - 32.0 pcg LAB HEMETOLOGY METHOD 07/22/2024 10:02 AM [facility] MCHC 30.9(L) 32.0 - 37.0 g/dL LAB HEMETOLOGY METHOD 07/22/2024 10:[address] [facility] RDW 15.4(H) 11.0 - 15.0 % LAB HEMETOLOGY METHOD 07/22/2024 10:[facility] Platelets 142 130 - 400 K/mcL LAB HEMETOLOGY METHOD 07/22/2024 10:[facility] MPV 11.1(H) 7.0 - 11.0 [...] Resul t [facility] [address] [place] [address], documented in this encounter Visit Diagnoses Diagnosis Muscle weakness (generalized) Emphysema, unspecified (CMS/HCC V24, CMS/HCC V28) documented in this encounter Care Teams Or Manager Relationship Specialty Start Date End Date Travis Holbrook MD [address] [place] [address], [phone] PCP - General Family Medicine 02/28/24 documented as of this encounter
--- OUTSIDE RECORDS SUMMARY | 2024-12-27 15:30 | XMS_ITS | Encounter Summary ---
Author Organization [facility] Address [address] [place] [address] Care Team Providers Care Hog Counter Name Role Phone Travis Holbrook MD Primary Care Provider [phone] Encounter Details Date Type Department Care Team (Late st Contact Info) Description 07/05/2024 Lab Requisition [facility] - Main Lab 299 [facility] [place] [address] Travis Holbrook MD [address] [place] [address] 204 [facility] [phone] Muscle weakness (generalized); Emphysema, unspecified [...] mmol/L LAB CHEMISTRY METHOD 07/08/2024 8:22 AM [facility] Potassium 3.9 3.5 - 5.5 mmol/L LAB CHEMISTRY METHOD 07/08/2024 8:22 AM [facility] Comment:Hemolysis present Chloride 103 96 - 110 mmol/L LAB CHEMISTRY METHOD 07/08/2024 8:22 AM [facility] CO2 31 21 - 32 mmol/L LAB CHEMISTRY METHOD 07/08/2024 8:22 AM [facility] Anion Gap 6 3 - 11 LAB CHEMISTRY METHOD 07/08/2024 8:22 AM [facility] Glucose 97 70 - 100 mg/dL LAB CHEMISTRY METHOD 07/08/2024 8:22 AM [facility] Comment:Lipemia present BUN 26(H) 5 - 25 mg/dL LAB CHEMISTRY METHOD 07/08/2024 8:22 AM [facility] Creatinine 1.30(H) 0.50 - 1.10 mg/dL LAB CHEMISTRY METHOD 07/08/2024 8:22 AM [facility] eGFR 44(L) >=60 mL/min/1. 73m2 LAB CHEMISTRY METHOD 07/08/2024 8:22 AM [facility] Comment:Calculation based on the Chronic Kidney Disease Epidemiology Collaboration (CKD-EPI) equation refit without adjustment for race. BUN/Creatinine Ratio 20.0 LAB CHEMISTRY METHOD 07/08/2024 8:22 AM [facility] Calcium 9.0 8.5 - 10.5 mg/dL LAB CHEMISTRY METHOD 07/08/2024 8:22 AM [facility] Blood Venous blood specimen / Unknown Venipuncture / Unknown 07/08/2024 5:44 AM EDT 07/08/2024 7:28 AM EDT us Travis Holbrook MD LAB BLOOD ORDERABLES Final Resul t [facility] [address] [place] [address], * (ABNORMAL) Complete blood count (07/08/2024 5:44 AM EDT) WBC 6.1 4.8 - 10.8 K/mcL LAB HEMETOLOGY METHOD 07/08/2024 8:03 AM EDT [facility] RBC 3.90 3.80 - 4.80 M/mcL LAB HEMETOLOGY METHOD 07/08/2024 8:03 AM [facility] Hemoglobin 11.7 11.5 - 16.0 g/dL LAB HEMETOLOGY METHOD 07/08/2024 8:03 AM [facility] Hematocrit 37.1 35.0 - 47.0 % LAB HEMETOLOGY METHOD 07/08/2024 8:03 AM [facility] MCV 95.9 79.0 - 98.0 FL LAB HEMETOLOGY METHOD 07/08/2024 8:03 AM [facility] MCH 30.2 27.0 - 32.0 pcg LAB HEMETOLOGY METHOD 07/08/2024 8:03 AM [facility] MCHC 31.5(L) 32.0 - 37.0 g/dL LAB HEMETOLOGY METHOD 07/08/2024 8:03 AM [facility] RDW 15.9(H) 11.0 - 15.0 % LAB HEMETOLOGY METHOD 07/08/2024 8:03 AM [facility] Platelets 223 130 - 400 K/mcL LAB HEMETOLOGY METHOD 07/08/2024 8:03 AM [facility] MPV 10.9 7.0 - 11.0 FL LAB HEMETOLOGY METHOD 07/08/2024 8:03 AM EDT [facility] NRBC 0.0 <1.0 % LAB HEMETOLOGY METHOD 07/08/2024 8:03 AM EDT [facility] NRBC Absolute 0.00 <0.10 K/mcL LAB HEMETOLOGY METHOD 07/08/2024 8:03 AM EDT [facility] Blood Venous blood specimen / Unknown Venipuncture / Unknown 07/08/2024 5:44 AM EDT 07/08/2024 7:28 AM EDT us Travis Holbrook MD LAB BLOOD ORDERABLES Final Resul t [facility] [address] [place] [address], documented in this encounter Visit Diagnoses Diagnosis Muscle weakness (generalized) Emphysema, unspecified (CMS/HCC V24, CMS/HCC V28) documented in this encounter Care Teams Hog Counter Relationship Specialty Start Date End Date Travis Holbrook MD [address] [place] [address], [phone] PCP - General Family Medicine 02/28/24 documented as of this encounter
--- OUTSIDE RECORDS SUMMARY | 2024-12-27 15:30 | XMS_ITS | Encounter Summary ---
Author Organization [facility] Address [address] [place] [address] Care Team Providers Care Search Engine Optimization Analyst Name Role Phone Travis Holbrook MD Primary Care Provider [phone] Encounter Details Date Type Department Care Team (Late st Contact Info) Description 07/12/2024 Lab Requisition [facility] - Main Lab 299 [facility] [place] [address] Travis Holbrook MD [address] [place] [address] 204 [facility] [phone] Muscle weakness (generalized); Emphysema, unspecified (CMS/HCC [...] LAB CHEMISTRY METHOD 07/15/2024 2:11 PM EDT [facility] Blood Venous blood specimen / Unknown Venipuncture / Unknown 07/15/2024 5:26 AM EDT 07/15/2024 10:23 AM EDT us Travis Holbrook MD LAB BLOOD ORDERABLES Final Resul t [facility] [address] [place] [address], * (ABNORMAL) Basic metabolic panel (07/15/2024 5:26 AM EDT) [facility] Sodium 143 133 - 145 mmol/L LAB CHEMISTRY METHOD 07/15/2024 2:29 PM [facility] Potassium 3.8 3.5 - 5.5 mmol/L LAB CHEMISTRY METHOD 07/15/2024 2:29 PM [facility] Chloride 102 96 - 110 mmol/L LAB CHEMISTRY METHOD 07/15/2024 2:29 PM T [facility] CO2 30 21 - 32 mmol/L LAB CHEMISTRY METHOD 07/15/2024 2:29 PM [facility] Anion Gap 11 3 - 11 LAB CHEMISTRY METHOD 07/15/2024 2:29 PM [facility] Glucose 65(L) 70 - 100 mg/dL LAB CHEMISTRY METHOD 07/15/2024 2:29 PM [facility] BUN 19 5 - 25 mg/dL LAB CHEMISTRY METHOD 07/15/2024 2:29 PM EDT [facility] Creatinine 1.17(H) 0.50 - 1.10 mg/dL LAB CHEMISTRY METHOD 07/15/2024 2:29 PM EDT [facility] eGFR 50(L) >=60 mL/min/1. 73m2 LAB CHEMISTRY METHOD 07/15/2024 2:29 PM EDT [facility] Comment:Calculation based on the Chronic Kidney Disease Epidemiology Collaboration (CKD-EPI) equation refit without adjustment for race. BUN/Creatinine Ratio 16.2 LAB CHEMISTRY METHOD 07/15/2024 2:29 PM EDT [facility] Calcium 9.3 8.5 - 10.5 mg/dL LAB CHEMISTRY METHOD 07/15/2024 2:29 PM EDT [facility] Blood Venous blood specimen / Unknown Venipuncture / Unknown 07/15/2024 5:26 AM EDT 07/15/2024 10:23 AM EDT us Travis Holbrook MD LAB BLOOD ORDERABLES Final Resul t [facility] [address] [place] [address], * (ABNORMAL) Complete blood count (07/15/2024 5:26 AM EDT) WBC 5.0 4.8 - 10.8 K/mcL LAB HEMETOLOGY METHOD 07/15/2024 11:34 AM EDT [facility] RBC 3.90 3.80 - 4.80 M/mcL LAB HEMETOLOGY METHOD 07/15/2024 11:34 AM EDT [facility] Hemoglobin 11.6 11.5 - 16.0 g/dL LAB HEMETOLOGY METHOD 07/15/2024 11:34 AM EDT [facility] Hematocrit 37.1 35.0 - 47.0 % LAB HEMETOLOGY METHOD 07/15/2024 11:34 AM EDT [facility] MCV 96.1 79.0 - 98.0 FL LAB HEMETOLOGY METHOD 07/15/2024 11:34 AM EDT [facility] MCH 30.1 27.0 - 32.0 pcg LAB HEMETOLOGY METHOD 07/15/2024 11:34 AM EDT [facility] MCHC 31.3(L) 32.0 - 37.0 g/dL LAB HEMETOLOGY METHOD 07/15/2024 11:34 AM EDT [facility] RDW 15.7(H) 11.0 - 15.0 % LAB HEMETOLOGY METHOD 07/15/2024 11:34 AM T [facility] Platelets 204 130 - 400 K/mcL LAB HEMETOLOGY METHOD 07/15/2024 11:34 AM EDT [facility] MPV 11.0 7.0 - 11.0 FL LAB HEMETOLOGY METHOD 07/15/2024 11:34 AM EDT [facility] NRBC 0.0 <1.0 % LAB HEMETOLOGY METHOD 07/15/2024 11:34 AM T [facility] NRBC Absolute 0.00 <0.10 K/mcL LAB HEMETOLOGY METHOD 07/15/2024 11:34 AM [facility] Blood Venous blood specimen / Unknown Venipuncture / Unknown 07/15/2024 5:26 AM EDT 07/15/2024 10:23 AM EDT us Travis Holbrook MD LAB BLOOD ORDERABLES Final Resul t [facility] [address] [place] [address], documented in this encounter Visit Diagnoses Diagnosis Muscle weakness (generalized) Emphysema, unspecified (CMS/HCC V24, CMS/HCC V28) Hypokalemia Hypopotassemia documented in this encounter Care Teams Search Engine Optimization Analyst Relationship Specialty Start Date End Date Travis Holbrook MD [address] [place] [address], [phone] PCP - General Family Medicine 02/28/24 documented as of this encounter
--- OUTSIDE RECORDS SUMMARY | 2024-12-27 15:30 | XMS_ITS | Encounter Summary ---
Author Organization [facility] Address [address] [place] [address] Care Team Providers Care Center Rep Name Role Phone Travis Holbrook MD Primary Care Provider [phone] Encounter Details Date Type Department Care Team (Late st Contact Info) Description 02/28/2024 Lab Requisition [facility] - Main Lab [address] [facility] [place] [address] Travis Holbrook MD [address] [place] [address] [facility] [phone] Other fci (current) drug therapy Social History Tobacco Use [...] COUNT Routine 02/28/2024 6:48 AM EST Other fci (current) drug therapy BASIC METABOLIC PANEL Routine 02/28/2024 6:48 AM EST Other intermodal customer service (current) drug therapy documented in this encounter Results * (ABNORMAL) Basic metabolic panel (02/28/2024 6:48 AM EST) Sodium 137 133 - 145 mmol/L LAB CHEMISTRY METHOD 02/28/2024 12:05 PM [facility] Potassium 4.2 3.5 - 5.5 mmol/L LAB CHEMISTRY METHOD 02/28/2024 12:05 PM [facility] Chloride 103 96 - 110 mmol/L LAB CHEMISTRY METHOD 02/28/2024 12:05 PM [facility] CO2 31 21 - 32 mmol/L LAB CHEMISTRY METHOD 02/28/2024 12:05 PM [facility] Anion Gap 3 3 - 11 LAB CHEMISTRY METHOD 02/28/2024 12:05 PM [facility] Glucose 81 70 - 100 mg/dL LAB CHEMISTRY METHOD 02/28/2024 12:05 PM [facility] BUN 26(H) 5 - 25 mg/dL LAB CHEMISTRY METHOD 02/28/2024 12:05 PM [facility] Creatinine 1.00 0.50 - 1.10 mg/dL LAB CHEMISTRY METHOD 02/28/2024 12:05 PM [facility] eGFR 60 >=60 mL/min/1. 73m2 LAB CHEMISTRY METHOD 02/28/2024 12:05 PM [facility] Comment:Calculation based on the Chronic Kidney Disease Epidemiology Collaboration (CKD-EPI) equation refit without adjustment for race. BUN/Creatinine Ratio 26.0 LAB CHEMISTRY METHOD 02/28/2024 12:05 PM [facility] Calcium 9.0 8.5 - 10.5 mg/dL LAB CHEMISTRY METHOD 02/28/2024 12:05 PM [facility] Blood Venous blood specimen / Unknown Venipuncture / Unknown 02/28/2024 6:48 AM EST 02/28/2024 10:45 AM EST us Travis Holbrook MD LAB BLOOD ORDERABLES Final Resul t [facility] [address] [place] [address], [place] [phone] * (ABNORMAL) Complete blood count (02/28/2024 6:48 AM EST) [facility] WBC 6.1 4.8 - 10.8 K/mcL LAB HEMETOLOGY METHOD 02/28/2024 11:33 AM [facility] RBC 3.80 3.80 - 4.80 M/mcL LAB HEMETOLOGY METHOD 02/28/2024 11:33 AM [facility] Hemoglobin 11.4(L) 11.5 - 16.0 g/dL LAB HEMETOLOGY METHOD 02/28/2024 11:33 AM [facility] Hematocrit 36.3 35.0 - 47.0 % LAB HEMETOLOGY METHOD 02/28/2024 11:33 AM [facility] MCV 95.3 79.0 - 98.0 FL LAB HEMETOLOGY METHOD 02/28/2024 11:33 AM [facility] MCH 29.9 27.0 - 32.0 pcg LAB HEMETOLOGY METHOD 02/28/2024 11:33 AM [facility] MCHC 31.4(L) 32.0 - 37.0 g/dL LAB HEMETOLOGY METHOD 02/28/2024 11:33 AM [facility] RDW 15.0 11.0 - 15.0 % LAB HEMETOLOGY METHOD 02/28/2024 11:33 AM [facility] Platelets 180 130 - 400 K/mcL LAB HEMETOLOGY METHOD 02/28/2024 11:33 AM [facility] MPV 10.5 7.0 - 11.0 FL LAB HEMETOLOGY METHOD 02/28/2024 11:33 AM [facility] NRBC 0.0 <1.0 % LAB HEMETOLOGY METHOD 02/28/2024 11:33 AM [facility] NRBC Absolute 0.00 <0.10 K/mcL LAB HEMETOLOGY METHOD 02/28/2024 11:[address] [facility] Blood Venous blood specimen / Unknown Venipuncture / Unknown 02/28/2024 6:48 AM EST 02/28/2024 10:45 AM EST us Travis Holbrook MD LAB BLOOD ORDERABLES Final Resul t [facility] [address] [place] [address], documented in this encounter Visit Diagnoses Diagnosis Other intermodal customer service (current) drug therapy documented in this encounter Care Teams Center Rep Relationship Specialty Start Date End Date Travis Holbrook MD [address] [place] [address], [phone] PCP - General Family Medicine 02/28/24 documented as of this encounter
--- OUTSIDE RECORDS SUMMARY | 2024-12-27 15:30 | XMS_ITS | Encounter Summary ---
Author Organization [facility] Address [address] [place] [address] Care Team Providers Care Intake Nurse Name Role Phone Travis Holbrook MD Primary Care Provider [phone] Encounter Details Date Type Department Care Team (Late st Contact Info) Description 07/26/2024 Lab Requisition [facility] - Main Lab 299 [facility] [place] [address] Travis Holbrook MD [address] [place] [address] [address] [place], [phone] Muscle weakness (generalized); Emphysema, unspecified (CMS/HCC V24, [...] V28) documented in this encounter Care Teams Intake Nurse Relationship Specialty Start Date End Date Travis Holbrook MD [address] [facility] [address] [place], [phone] PCP - General Family Medicine 02/28/24 documented as of this encounter
[2024-12-27 15:34] LABS: Hematocrit 38.7 % (37.0-47.0); Hemoglobin 13.4 g/dl (12.0-16.0); Imm Gran Abs Auto 0.03 X10*3/uL (0.00-0.03); Imm Gran Pct Auto 0.5 % (0.0-0.4); Lymphocytes Absolute Auto 1.3 X10*3/uL (1.2-4.9); Mean Corpuscular HGB Conc 34.6 g/dl (31.0-35.0); Mean Corpuscular Hemoglobin 30.1 pg (27.0-33.0); Mean Corpuscular Volume 87.0 fL (80.0-98.0); NRBC Abs Auto 0.000 X10*3/uL (0.0-0.012); NRBC Pct Auto 0.0 /100WBC (0.0-0.2); Platelet Count 256 X10*3/uL (160-400); Red Blood Count 4.45 X10*6/uL (4.20-5.50); White Blood Count 6.1 X10*3/uL (4.8-10.8)
[2024-12-27 15:42] LABS: IDNOW Serial# 58CA691E; Influenza B2 Negative (Negative); Troponin-I High Sensitivity 9.1 ng/L (<3.5-17.0)
[2024-12-27 15:43] LABS: COVID-19 Test Negative (Negative); IDNOW Serial# 55D5AD1C
[2024-12-27 16:45] LABS: Alanine Aminotransferase 12 U/L (0-31); Albumin Level 3.6 g/dL (3.5-5.0); Alkaline Phosphatase 97 U/L (39-117); Anion Gap 15 (12-20); Aspartate Amino Transferase 23 U/L (5-31); Blood Urea Nitrogen 11 mg/dL (9-16); Calcium 9.0 mg/dL (8.4-10.2); Carbon Dioxide 22 mmol/L (22-29); Chloride 105 mmol/L (96-108); Creatinine Clr Calc Pharmacy 76.2; Estimated Glomerular Filt Rate > 60; Magnesium 2.2 mg/dL (1.6-2.6); Potassium 3.6 mmol/L (3.3-5.1); Sodium 138 mmol/L (135-145); Total Protein 7.4 g/dL (6.5-8.0)
[2024-12-27 17:16] LABS: Appearance Urine Clear; Glucose Urine UA Negative (Negative); PH 5.5 (5.0-9.0); Specific Gravity - Urine 1.020 (1.005-1.025); UMIC TRIGGER UACC YES
[2024-12-27 17:24] LABS: UACC Culture Trigger YES
--- NOTE | 2024-12-27 18:40 | PM.IMHP ---
History of Present Illness Date of Service: 12/27/24 Chief Complaint: Confusion 74-year-old female with a past medical history significant for recurrent ESBL UTIs, (lasted admit 12/16/24-12/17/2024) PAD, and osteomyelitis, who presented to the ED due to confusion and mild nausea. The patient recent ESBL UTI ... Completed course of ertapenem via PICC line. She has chronic pain and has been unable to take her pain medications do to her nausea. She denies any urinary symptoms including frequency, urgency or dysuria, Review of Systems Review of Systems: Denies chest pain Denies shortness of breath Admits nausea; denies vomiting diarrhea Denies fever chills [facility] Medical History (Updated 12/27/24 @ 18:46 by Rogers Guillermo DO) History of ESBL E. coli infection Oxygen dependent Oxygen dependent Sepsis Bacteriuria Urinary tract infection due to extended-spectrum beta lactamase (ESBL) producing Escherichia coli History of ESBL E. coli infection Osteomyelitis COPD (chronic obstructive pulmonary disease) Rheumatoid lung Hypothyroidism Congestive heart failure Fibromyalgia HTN (hypertension) Depression Rheumatoid arthritis Family History Father No problems noted. Other Heart disease Surgical History Hx of prior ablation treatment Knee joint replacement status Social History Household Members: None Household Members Other:: 0 Housing: Apartment Do you presently have visiting nurse or other home services: Yes (outside care takers) Alcohol intake: never Comment: bedside commode Patient Tobacco Use Status: Former Tobacco user Tobacco use type: Cigarette e-Cigarette/Vaping Use: Never Used Second Hand Smoke Exposure: No Advance Directives: Yes Advance Directives on File: Yes Advance Directives Date on File: 10/19/23 Do you have a plan to hurt others: No Plan service: No Meds Allergies Allergy/AdvReac Type Severity Reaction Status Date / Time lisinopril (LISINOPRIL) Allergy Severe ANAPHYLAXIS Verified 12/27/24 14:37 Sulfa (Sulfonamide Allergy Intermediate RASH Verified 12/27/24 14:37 Antibiotics) (SULFA (SULFONAMIDE ANTIBIOTICS)) tramadol (TRAMADOL) Allergy Intermediate RASH Verified 12/27/24 14:37 Swvatjc-MRF-XxR Reductase Allergy Rash Verified 12/27/24 14:37 Inhibitor (Vldopfi-Pet-Ayd Reductase Inhibitor) hydrochlorothiazide (HCTZ) AdvReac Unknown ABNORMAL Verified 12/27/24 14:37 LABS? Active Medications: Current Medications Acetaminophen (Acetaminophen 325 Mg Tablet) 650 mg PO Q6H PRN PRN Reason: Pain, Mild 1-3,fever,headache Calcium Carbonate (Calcium Carbonate 750 Mg Tab.Chew) 750 mg PO Q4H PRN PRN Reason: Heartburn Enoxaparin Sodium (Enoxaparin Sodium 40 Mg/0.4 Ml Syringe) 40 mg SUBCUT Q24H [facility] Lactated Ringer's (Lr) 1,000 mls @ 100 mls/hr IVCONT .Q10H [facility] Magnesium Hydroxide (Milk Of Magnesia 30 Ml Oral.Susp) 30 ml PO DAILY PRN PRN Reason: Constipation Melatonin (Melatonin 3 Mg Tablet) 6 mg PO BEDTIME PRN PRN Reason: Insomnia Morphine Sulfate (Morphine Sulfate 4 Mg/Ml Cartridge) 4 mg IVPUSH Q4H PRN; Protocol PRN Reason: Pain, Severe (Pain Scale 7-10) Ondansetron HCl (Ondansetron Hcl 4 Mg/2 Ml Vial) 4 mg IVPUSH Q8H PRN PRN Reason: Nausea and Vomiting Oxycodone HCl (Oxycodone Hcl Immed Release 5 Mg Tablet) 5 mg PO Q6H PRN PRN Reason: Pain, Moderate(Pain Scale 4-6) Sodium Chloride (0.9 % Sodium Chloride Flush 3 Ml Syringe) 3 ml IVFLUSH QSHIFT [facility] Home Medications ?Medication ?Instructions ?Recorded ?Confirmed ?Last Taken ?Type bupropion HCl 300 mg 24 hr tablet, 300 mg PO DAILY@89908/23/21 12/27/24 12/15/24 History extended release levothyroxine 50 mcg tablet 50 mcg PO DAILY@59908/23/21 12/27/24 12/15/24 History methotrexate sodium 2.5 mg tablet 25 mg PO TU 08/23/21 12/27/24 12/15/24 History omeprazole 40 mg capsule,delayed 40 mg PO DAILY@62908/23/21 12/27/24 12/15/24 History release prednisone 1 mg tablet 4 mg PO DAILY 08/23/21 12/27/24 12/15/24 History pregabalin 200 mg capsule 200 mg PO BID 01/07/23 12/27/24 12/15/24 History folic acid 1 mg tablet 2 mg PO DAILY 10/13/23 12/27/24 12/15/24 History bupropion HCl 150 mg 24 hr tablet, 150 mg PO DAILY@0900 11/25/23 12/27/24 12/15/24 History extended release acetaminophen 325 mg tablet 650 mg PO Q4H PRN Moderate Pain 03/04/24 12/27/24 Unknown History (Tylenol) (Scale Score 5-6) ibuprofen 200 mg tablet 600 mg PO Q6H PRN Pain 05/03/24 12/27/24 Unknown History melatonin 10 mg tablet 10 mg PO BEDTIME PRN Sleep 05/03/24 12/27/24 Unknown History multivitamin 1 tab PO DAILY 05/03/24 12/27/24 12/15/24 History atenolol 25 mg tablet 50 mg PO DAILY 08/29/24 12/27/24 12/15/24 History fluticasone propionate 50 1 spray intranasal BID PRN Allergy 08/29/24 12/27/24 Unknown History mcg/actuation nasal Symptoms spray,suspension biotin 1 mg tablet 1 mg PO DAILY 10/07/24 12/27/24 12/15/24 History furosemide 40 mg tablet 40 mg PO DAILY 10/07/24 12/27/24 12/15/24 History Physical Exam Vital Signs and Narrative: Vital Signs: Last Vital Signs Temp 98.6 F 12/27/24 17:33 Pulse 87 12/27/24 17:33 Resp 15 12/27/24 17:33 BP 178/98 H 12/27/24 17:33 Pulse Ox 95 12/27/24 17:33 O2 Del Method Room Air 12/27/24 17:33 BMI result Body Mass Index 32.8 Const: Other: Awake alert oriented x2 slightly confused but easily reoriented Resp: Other: Clear to auscultation bilaterally no rales rhonchi or wheezes Cardio: Other: No S4; positive S1-S2; no S3 murmurs rubs or gallops GI: Other: Soft nontender nondistended normoactive bowel sounds Extrem: Other: No edema bilaterally Results Labs 12/27/24 15:04 12/27/24 16:20 Labs: Laboratory Results - last 24 hr 12/27/24 12/27/24 12/27/24 15:04 16:20 17:02 MCV 87.0 MCH 30.1 MCHC 34.6 RDW 13.8 Plt Count 256 D MPV 10.1 Immature Gran % (Auto) 0.5 H Neut % (Auto) 62.7 Lymph % (Auto) 20.9 [place] % (Auto) 13.3 H Eos % (Auto) 2.3 Baso % (Auto) 0.3 Lymph # (Auto) 1.3 [place] # (Auto) 0.8 Eos # (Auto) 0.1 Baso # (Auto) 0.0 Abs Immat Gran (auto) 0.03 Absolute Neuts (auto) 3.8 Absolute Nucleated RBC 0.000 Nucleated RBC % (auto) 0.0 PT 11.8 INR 1.0 Anion Gap 15 Estim Creat Clear Calc 76.2 Estimated GFR > 60 Random Glucose 79 Lactic Acid 1.0 Calcium 9.0 Magnesium 2.2 Total Bilirubin 0.4 AST 23 ALT 12 Alkaline Phosphatase 97 Troponin I High Sens 9.1 D Total Protein 7.4 Albumin 3.6 Urine Color Yellow Urine Appearance Clear Urine pH 5.5 Ur Specific Dent 1.020 Urine Protein 30 (1+) H Urine Glucose (UA) Negative Urine Ketones 80 Urine Blood Small (1+) H Urine Nitrite Positive H Ur Leukocyte Esterase Small (1+) H Urine RBC 0-2 Urine WBC 6-10 Ur Squamous Epith Cells 6-10 Urine Bacteria 4+ Hyaline Casts 3-5 COVID-19 (KERRI) Negative COVID-19 Clin Com See Note Influenza Type A (OCTAVIO) Negative Influenza Type B (OCTAVIO) Negative Influenza A & B Note See Note Imaging Radiologist's Impressions: Impressions Head CT 12/27/24 16:39 IMPRESSION: No acute intracranial abnormality. Mild mucosal thickening involving ethmoid air cells and right maxillary sinus. Chronic atrophy and white matter changes. Electronically signed by: Devon Osorio MD 12/27/2024 05:01 PM EDT Assessment and Plan (1) Encephalopathy: Qualifiers: Encephalopathy type: metabolic Qualified Code(s): G93.41 - Metabolic encephalopathy Status: Acute (2) History of ESBL E. coli infection: Status: Acute (3) Hypertension: Qualifiers: Hypertension type: primary hypertension Qualified Code(s): I10 - Essential (primary) hypertension Status: Acute (4) Rheumatoid arthritis: Qualifiers: Rheumatoid arthritis location: unspecified site Rheumatoid factor presence: unspecified presence Qualified Code(s): M06.9 - Rheumatoid arthritis, unspecified Status: Acute Plan 74-year-old female presents from home with 2-3 day history of feeling overall unwell. She states she is forgetful weak and sometimes confused. She states this is typical for UTI. 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 In ER mildly active sediment 1. Metabolic encephalopathy secondary to likely UTI (ESBL) -given dose of ceftriaxone in ER. . . Urine sediment mildly active -start meropenem 1 g q.8 hours pending culture -ID consult in a.m. -lactated Ringer's at 100 an hour overnight 2. Hypertension -acceptable control on current therapy -adjust as indicated 3. Rheumatoid arthritis -continue opiates at outpatient dosing -morphine for breakthrough pain Full code Lovenox Patient will require at least 2 midnights going forward of inpatient stay for IV meropenem pending completion of urine and blood cultures along with specialty consultation. Patient is extremely high risk of outpatient failure. This can not be achieved a lesser acute setting Quality Stroke Does the patient have a stroke diagnosis?: No VTE Prior VTE?: No VTE Risk Level:: Medical - moderate - high VTE Device Contraindication: Treatment Not Indicated VTE Drug Contraindication: N/A - Med Ordered
--- NOTE | 2024-12-27 18:44 | PHA.MEDREC ---
Addendum entered by Jared Coley RPh 12/27/24 19:06: Reviewed by [facility] Original Note: Pharmacy Consult ? Medication Reconciliation Pharmacy has completed the medication reconciliation. Attempted to spake with patient, however patient is AMS. Patient kept shaking her head no then asking me what day is today. Utilized claims and discharge packet from 12/17/24 to confirm med list.
[2024-12-27] MEDS: oxyCODONE HCl Immed Release 15 MG TABLET PO (19:38)
--- NOTE | 2024-12-27 20:13 | PC.NURSE ---
Addendum entered by Bessy Ashley RN 12/27/24 20:42: PT medciated per MAY with HTN meds- pts bp is now 174/81. new RN made aware. Original Note: RN took over assignment at 1900- pt still has bolus of NS infusing- RN who gave report states pt keeps bending arm so fluids aren't infusing. Pt was complaining of pain- RN medicated pt per MAY- PRN order of oxy. RN gave report to RN on medsur floor as pt is going up. Per previous RN pt has been hypertensive- she did not take her htn meds. Previous RN medicated pt per may for HTN. Pt currently has a high BP- RN messaged Dr. Paredes to put htn meds on may. waiting for order to medicate pt so she can go upstairs.
[2024-12-27] MEDS: Lactated Ringers 1,000 ML 100 ML IVCONT (21:25)
[2024-12-28] MEDS: oxyCODONE HCl Immed Release 15 MG TABLET PO (01:42)
[2024-12-28 03:03] VITALS: BP 168/77; PULSE 68; RESP 19; TEMP 36.6; O2SAT 93
[2024-12-28] MEDS: Lactated Ringers 1,000 ML 100 ML IVCONT ×2 (05:37→15:06)
[2024-12-28 06:15] LABS: MANUAL DIFF FLAG NO
[2024-12-28 06:20] LABS: Hematocrit 33.1 % (37.0-47.0); Hemoglobin 11.4 g/dl (12.0-16.0); Imm Gran Abs Auto 0.03 X10*3/uL (0.00-0.03); Imm Gran Pct Auto 0.5 % (0.0-0.4); Lymphocytes Absolute Auto 1.3 X10*3/uL (1.2-4.9); Mean Corpuscular HGB Conc 34.4 g/dl (31.0-35.0); Mean Corpuscular Hemoglobin 30.5 pg (27.0-33.0); Mean Corpuscular Volume 88.5 fL (80.0-98.0); NRBC Abs Auto 0.000 X10*3/uL (0.0-0.012); NRBC Pct Auto 0.0 /100WBC (0.0-0.2); Platelet Count 219 X10*3/uL (160-400); Red Blood Count 3.74 X10*6/uL (4.20-5.50); White Blood Count 5.7 X10*3/uL (4.8-10.8)
[2024-12-28 06:42] LABS: Alanine Aminotransferase 12 U/L (0-31); Albumin Level 3.0 g/dL (3.5-5.0); Alkaline Phosphatase 88 U/L (39-117); Anion Gap 11 (12-20); Aspartate Amino Transferase 21 U/L (5-31); Blood Urea Nitrogen 12 mg/dL (9-16); Calcium 8.6 mg/dL (8.4-10.2); Carbon Dioxide 27 mmol/L (22-29); Chloride 104 mmol/L (96-108); Creatinine Clr Calc Pharmacy 71.7; Estimated Glomerular Filt Rate > 60; Potassium 3.4 mmol/L (3.3-5.1); Sodium 139 mmol/L (135-145); Total Protein 6.0 g/dL (6.5-8.0)
[2024-12-28 08:00] VITALS: BP 170/71; PULSE 82; RESP 18; TEMP 36.5; O2SAT 95
[2024-12-28] MEDS: buPROPion HCl XL 150 MG TAB.ER.24H PO (08:20)
[2024-12-28] MEDS: buPROPion HCl XL 300 MG TAB.ER.24H PO (08:20)
[2024-12-28 11:04] VITALS: BP 178/75; PULSE 59; RESP 16
[2024-12-28 14:56] VITALS: BP 167/78; PULSE 59; RESP 18; TEMP 37; O2SAT 95
[2024-12-28] MEDS: oxyCODONE HCl Immed Release 5 MG TABLET 20 MG PO ×2 (17:29→21:32)
[2024-12-28 19:46] VITALS: BP 184/83; PULSE 64; RESP 18; TEMP 37; O2SAT 94
[2024-12-28 20:45] VITALS: BP 171/74
[2024-12-28] MEDS: 0.9 % Sodium Chloride Flush 3 ML SYRINGE IVFLUSH (21:14)
[2024-12-29] VITALS (9 sets, daily range): BP systolic 154–192; BP diastolic 80–91; PULSE 59–65; RESP 14–18; TEMP 36.2–36.6; O2SAT 95–96
[2024-12-29] MEDS: oxyCODONE HCl Immed Release 5 MG TABLET 20 MG PO ×5 (02:08→23:26)
[2024-12-29] MEDS: Lactated Ringers 1,000 ML 100 ML IVCONT (02:14)
[2024-12-29 07:15] LABS: MANUAL DIFF FLAG NO
[2024-12-29 07:30] LABS: Hematocrit 35.1 % (37.0-47.0); Hemoglobin 11.8 g/dl (12.0-16.0); Imm Gran Abs Auto 0.03 X10*3/uL (0.00-0.03); Imm Gran Pct Auto 0.5 % (0.0-0.4); Lymphocytes Absolute Auto 1.9 X10*3/uL (1.2-4.9); Mean Corpuscular HGB Conc 33.6 g/dl (31.0-35.0); Mean Corpuscular Hemoglobin 30.3 pg (27.0-33.0); Mean Corpuscular Volume 90.0 fL (80.0-98.0); NRBC Abs Auto 0.000 X10*3/uL (0.0-0.012); NRBC Pct Auto 0.0 /100WBC (0.0-0.2); Platelet Count 208 X10*3/uL (160-400); Red Blood Count 3.90 X10*6/uL (4.20-5.50); White Blood Count 5.6 X10*3/uL (4.8-10.8)
[2024-12-29 07:44] LABS: Alanine Aminotransferase 8 U/L (0-31); Albumin Level 3.1 g/dL (3.5-5.0); Alkaline Phosphatase 89 U/L (39-117); Anion Gap 12 (12-20); Aspartate Amino Transferase 19 U/L (5-31); Blood Urea Nitrogen 14 mg/dL (9-16); Calcium 8.6 mg/dL (8.4-10.2); Carbon Dioxide 28 mmol/L (22-29); Chloride 103 mmol/L (96-108); Creatinine Clr Calc Pharmacy 63.3; Estimated Glomerular Filt Rate 58; Potassium 3.2 mmol/L (3.3-5.1); Sodium 140 mmol/L (135-145); Total Protein 6.3 g/dL (6.5-8.0)
[2024-12-29] MEDS: buPROPion HCl XL 300 MG TAB.ER.24H PO (07:50)
[2024-12-29] MEDS: buPROPion HCl XL 150 MG TAB.ER.24H PO (07:50)
--- NOTE | 2024-12-29 10:11 | HO.PM.IMPN ---
Subjective Subjective Date of Service: 12/29/24 Interval History: f/u on metabolic encephalopathy d/t uti Physical Exam Vital Signs: Vital Signs: Last Vital Signs Temp 97.8 F 12/29/24 07:39 Pulse 63 12/29/24 07:39 Resp 14 12/29/24 07:39 BP 182/81 H 12/29/24 07:39 Pulse Ox 96 12/29/24 07:39 O2 Del Method Room Air 12/29/24 07:39 BMI result Body Mass Index 32.8 General: AO X 3, no acute distress Resp: CTA bilateral CVS: S1,S2,RRR GI: +BS, NT, no distention Skin: No rash Neuro: motor grossly intact Psych: appropriate affect Objective Data Active Medications Acetaminophen (Acetaminophen 325 Mg Tablet) 650 mg PO Q6H PRN PRN Reason: Pain, Mild 1-3,fever,headache Last Admin: 12/29/24 02:12 Dose: 650 mg Documented By: BRAD Atenolol (Atenolol 50 Mg Tablet) 50 mg PO DAILY [facility]; Protocol Last Admin: 12/29/24 07:50 Dose: 50 mg Documented By: MACARIO Bupropion HCl (Bupropion Hcl Xl 300 Mg Tab.Er.24h) 300 mg PO DAILY@0900 [facility] Last Admin: 12/29/24 07:50 Dose: 300 mg Documented By: MACARIO Bupropion HCl (Bupropion Hcl Xl 150 Mg Tab.Er.24h) 150 mg PO DAILY@0900 [facility] Last Admin: 12/29/24 07:50 Dose: 150 mg Documented By: MACARIO Calcium Carbonate (Calcium Carbonate 750 Mg Tab.Chew) 750 mg PO Q4H PRN PRN Reason: Heartburn Doxazosin Mesylate (Doxazosin Mesylate 2 Mg Tablet) 2 mg PO BEDTIME [facility]; Protocol Last Admin: 12/28/24 21:14 Dose: 2 mg Documented By: GRIFFIN Enoxaparin Sodium (Enoxaparin Sodium 40 Mg/0.4 Ml Syringe) 40 mg SUBCUT Q24H [facility] Last Admin: 12/28/24 17:29 Dose: 40 mg Documented By: MACARIO Fluticasone Propionate (Fluticasone Propionate Nasal 16 Gm [place]) 1 spray NOSTRIL-B BID PRN PRN Reason: Allergy Symptoms Folic Acid (Folic Acid 1 Mg Tablet) 2 mg PO DAILY [facility] Last Admin: 12/29/24 07:50 Dose: 2 mg Documented By: MACARIO Furosemide (Furosemide 40 Mg Tablet) 40 mg PO DAILY [facility]; Protocol Last Admin: 12/29/24 07:50 Dose: 40 mg Documented By: MACARIO Hydromorphone HCl (Hydromorphone Hcl 1 Mg/Ml Syringe) 1 mg IVPUSH Q4H PRN; Protocol PRN Reason: Pain, Severe (Pain Scale 7-10) Last Admin: 12/29/24 07:49 Dose: 1 mg Documented By: MACARIO Lactated Ringer's (Lr) 1,000 mls @ 100 mls/hr IVCONT .Q10H [facility] Last Admin: 12/29/24 02:14 Dose: 100 mls/hr Documented By: BRAD Levothyroxine Sodium (Levothyroxine Sodium 50 Mcg Tablet) 50 mcg PO DAILY@0600 [facility] Last Admin: 12/29/24 05:00 Dose: 50 mcg Documented By: BRAD Magnesium Hydroxide (Milk Of Magnesia 30 Ml Oral.Susp) 30 ml PO DAILY PRN PRN Reason: Constipation Melatonin (Melatonin 3 Mg Tablet) 6 mg PO BEDTIME PRN PRN Reason: Insomnia Last Admin: 12/28/24 21:14 Dose: 6 mg Documented By: GRIFFIN Meropenem (Meropenem 1 Gm Vial) 1 gm IVPUSH Q8H [facility] Last Admin: 12/29/24 04:54 Dose: 1 gm Documented By: BRAD Methotrexate (Methotrexate Sodium 2.5 Mg Tablet) 25 mg PO [facility] Multivitamins/Vitamin C (Multivitamin Tablet) 1 tab PO DAILY [facility] Last Admin: 12/29/24 07:50 Dose: 1 tab Documented By: MACARIO Omeprazole (Omeprazole 40 Mg Capsule.Dr) 40 mg PO DAILY@0630 [facility] Last Admin: 12/29/24 05:00 Dose: 40 mg Documented By: BRAD Ondansetron HCl (Ondansetron Hcl 4 Mg/2 Ml Vial) 4 mg IVPUSH Q8H PRN PRN Reason: Nausea and Vomiting Ondansetron HCl (Ondansetron Odt 4 Mg Tab.Rapdis) 4 mg TRANSLINGU Q8H PRN PRN Reason: Nausea and Vomiting Oxycodone HCl (Oxycodone Hcl Immed Release 5 Mg Tablet) 20 mg PO Q4H PRN PRN Reason: Pain, Moderate(Pain Scale 4-6) Last Admin: 12/29/24 09:49 Dose: 20 mg Documented By: JOSE Prednisone (Prednisone 1 Mg Tablet) 4 mg PO DAILY [facility] Last Admin: 12/29/24 07:50 Dose: 4 mg Documented By: MACARIO Sodium Chloride (0.9 % Sodium Chloride Flush 3 Ml Syringe) 3 ml IVFLUSH QSHIFT [facility] Last Admin: 12/29/24 07:51 Dose: Not Given Documented By: MACARIO Non-Admin Reason: IV Running Labs 12/29/24 06:18 12/29/24 06:18 Labs: Laboratory Results - last 24 hr 12/29/24 06:18 MCV 90.0 MCH 30.3 MCHC 33.6 RDW 14.2 Plt Count 208 MPV 10.9 Immature Gran % (Auto) 0.5 H Neut % (Auto) 48.1 Lymph % (Auto) 35.0 [place] % (Auto) 12.6 H Eos % (Auto) 3.4 Baso % (Auto) 0.4 Lymph # (Auto) 1.9 [place] # (Auto) 0.7 Eos # (Auto) 0.2 Baso # (Auto) 0.0 Abs Immat Gran (auto) 0.03 Absolute Neuts (auto) 2.7 Absolute Nucleated RBC 0.000 Nucleated RBC % (auto) 0.0 Anion Gap 12 Estim Creat Clear Calc 63.3 Estimated GFR 58 Fasting Glucose 88 Calcium 8.6 Total Bilirubin 0.2 AST 19 ALT 8 Alkaline Phosphatase 89 Total Protein 6.3 L Albumin 3.1 L Microbiology Microbiology Results: Microbiology 12/27/24 17:28 Urine Culture - Final Urine clean catch - Clean Catch Midstream Escherichia coli 12/27/24 16:20 Blood Culture - Preliminary Blood - Venous No growth after 24 hours. 12/27/24 16:20 Blood Culture - Preliminary Blood - Venous No growth after 24 hours. Assessment and Plan (1) Metabolic encephalopathy: Status: Acute Plan 74-year-old female presents from home with 2-3 day history of feeling overall unwell. She states she is forgetful weak and sometimes confused. She states this is typical for UTI. 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 In ER mildly active sediment Metabolic encephalopathy secondary to likely UTI (ESBL) -given dose of ceftriaxone in ER. . . Urine sediment mildly active -start meropenem 1 g q.8 hours pending culture -ID consult in a.m. -request midline tomorrow -lactated Ringer's at 100 an hour overnight Hypertension Rheumatoid arthritis -continue opiates at outpatient dosing -morphine for breakthrough pain Full code Lovenox Need for inpt: IV Abx for resistant UTI with metabolic encephalopathy Quality Stroke Does the patient have a stroke diagnosis?: No VTE Prior VTE?: No VTE Risk Level:: Medical - moderate - high VTE Device Contraindication: Treatment Not Indicated VTE Drug Contraindication: N/A - Med Ordered
[2024-12-29] MEDS: Potassium Chloride ER 20 MEQ TAB.ER.PRT 40 MEQ PO (12:15)
--- NOTE | 2024-12-29 12:59 | MHC.CM.PN ---
Addendum entered by Ina Patterson 12/29/24 16:13: CM SPOKE TO PTS DAUGHTER/HCP, NOA SHE REPORTS SHE IS OFTEN NOT UPDATED AND HER MOTHER HAS INTERMITTENT CONFUSION AND CANNOT ALWAYS PASS INFO RELIABLY SHE SAYS THE PT HAS HAD MANY HOSPITAL ADMISSIONS AND FEELS SHE NEEDS MORE ASSISTANCE SHE SAYS THEY ARE CONNECTED TO [facility], BUT THEY DO NOT ALWAYS FOLLOW UP [facility] WERE DISCUSSED, HOWEVER PT HISTORICALLY REFUSES BECAUSE SHE DOES NOT WANT TO CHANGE PCP NOA SAYS THE PT TOLD HER SHE WAS SIGNING UP WITH [facility], BUT THEN SHE HAS NOT HEARD ANYTHING. CM WILL CALL [facility] TOMORROW TO DETERMINE IF PT IS SIGNED UP OR ELIGIBLE Original Note: PT REPORTS SHE LIVES ALONE AND HAS CHECK GRADER'S M-F FROM [facility] SHE IS ALSO ACTIVE WITH [employer] SHE USES AN ELECTRIC WHEEL CHAIR FOR MOBILITY PCP: GINO MICHAEL HCP ON FILE IMM DELIVERED DCP: HOME, RESUME CHECK GRADER AND [facility] BLS TRANSPORT
[2024-12-29] MEDS: 0.9 % Sodium Chloride Flush 3 ML SYRINGE IVFLUSH (16:02)
[2024-12-30] VITALS (7 sets, daily range): BP systolic 140–165; BP diastolic 80–93; PULSE 57–67; RESP 16–20; TEMP 35.9–36.8; O2SAT 94–96
[2024-12-30] MEDS: 0.9 % Sodium Chloride Flush 3 ML SYRINGE IVFLUSH ×4 (00:05→20:48)
[2024-12-30] MEDS: oxyCODONE HCl Immed Release 5 MG TABLET 20 MG PO ×5 (05:57→21:58)
--- NOTE | 2024-12-30 08:47 | P.PNIM_ITS ---
Subjective Subjective Date of Service: 12/30/24 Interval History: f/u on metabolic encephalopathy d/t uti No confusion at this time Physical Exam 2 Vital Signs: Vital Signs: Last Vital Signs Temp 96.7 F L 12/30/24 07:36 Pulse 67 12/30/24 07:36 Resp 18 12/30/24 07:36 BP 140/90 H 12/30/24 07:36 Pulse Ox 96 12/30/24 07:36 O2 Del Method Room Air 12/30/24 07:36 BMI result Body Mass Index 32.8 General: AO X 3, no acute distress Resp: CTA bilateral CVS: S1,S2,RRR GI: +BS, NT, no distention Skin: No rash Neuro: motor grossly intact Psych: appropriate affect Objective Data Active Medications Acetaminophen (Acetaminophen 325 Mg Tablet) 650 mg PO Q6H PRN PRN Reason: Pain, Mild 1-3,fever,headache Last Admin: 12/29/24 02:12 Dose: 650 mg Documented By: BRAD Atenolol (Atenolol 50 Mg Tablet) 50 mg PO DAILY [facility]; Protocol Last Admin: 12/29/24 07:50 Dose: 50 mg Documented By: MACARIO Bupropion HCl (Bupropion Hcl Xl 300 Mg Tab.Er.24h) 300 mg PO DAILY@0900 [facility] Last Admin: 12/29/24 07:50 Dose: 300 mg Documented By: MACARIO Bupropion HCl (Bupropion Hcl Xl 150 Mg Tab.Er.24h) 150 mg PO DAILY@0900 [facility] Last Admin: 12/29/24 07:50 Dose: 150 mg Documented By: MACARIO Calcium Carbonate (Calcium Carbonate 750 Mg Tab.Chew) 750 mg PO Q4H PRN PRN Reason: Heartburn Doxazosin Mesylate (Doxazosin Mesylate 2 Mg Tablet) 2 mg PO BEDTIME [facility]; Protocol Last Admin: 12/29/24 20:27 Dose: 2 mg Documented By: RADHA Enoxaparin Sodium (Enoxaparin Sodium 40 Mg/0.4 Ml Syringe) 40 mg SUBCUT Q24H [facility] Last Admin: 12/29/24 18:32 Dose: 40 mg Documented By: MACARIO Fluticasone Propionate (Fluticasone Propionate Nasal 16 Gm [place]) 1 spray NOSTRIL-B BID PRN PRN Reason: Allergy Symptoms Folic Acid (Folic Acid 1 Mg Tablet) 2 mg PO DAILY [facility] Last Admin: 12/29/24 07:50 Dose: 2 mg Documented By: MACARIO Furosemide (Furosemide 40 Mg Tablet) 40 mg PO DAILY [facility]; Protocol Last Admin: 12/29/24 07:50 Dose: 40 mg Documented By: MACARIO Hydromorphone HCl (Hydromorphone Hcl 1 Mg/Ml Syringe) 1 mg IVPUSH Q4H PRN; Protocol PRN Reason: Pain, Severe (Pain Scale 7-10) Last Admin: 12/30/24 03:41 Dose: 1 mg Documented By: RADHA Levothyroxine Sodium (Levothyroxine Sodium 50 Mcg Tablet) 50 mcg PO DAILY@0600 [facility] Last Admin: 12/30/24 05:53 Dose: 50 mcg Documented By: RADHA Magnesium Hydroxide (Milk Of Magnesia 30 Ml Oral.Susp) 30 ml PO DAILY PRN PRN Reason: Constipation Melatonin (Melatonin 3 Mg Tablet) 6 mg PO BEDTIME PRN PRN Reason: Insomnia Last Admin: 12/28/24 21:14 Dose: 6 mg Documented By: GRIFFIN Meropenem (Meropenem 1 Gm Vial) 1 gm IVPUSH Q8H [facility] Last Admin: 12/30/24 03:41 Dose: 1 gm Documented By: RADHA Methotrexate (Methotrexate Sodium 2.5 Mg Tablet) 25 mg PO TU [facility] Multivitamins/Vitamin C (Multivitamin Tablet) 1 tab PO DAILY [facility] Last Admin: 12/29/24 07:50 Dose: 1 tab Documented By: MACARIO Omeprazole (Omeprazole 40 Mg Capsule.Dr) 40 mg PO DAILY@0630 [facility] Last Admin: 12/30/24 05:53 Dose: 40 mg Documented By: RADHA Ondansetron HCl (Ondansetron Hcl 4 Mg/2 Ml Vial) 4 mg IVPUSH Q8H PRN PRN Reason: Nausea and Vomiting Ondansetron HCl (Ondansetron Odt 4 Mg Tab.Rapdis) 4 mg TRANSLINGU Q8H PRN PRN Reason: Nausea and Vomiting Oxycodone HCl (Oxycodone Hcl Immed Release 5 Mg Tablet) 20 mg PO Q4H PRN PRN Reason: Pain, Moderate(Pain Scale 4-6) Last Admin: 12/30/24 05:57 Dose: 20 mg Documented By: RADHA Prednisone (Prednisone 1 Mg Tablet) 4 mg PO DAILY [facility] Last Admin: 12/29/24 07:50 Dose: 4 mg Documented By: MACARIO Sodium Chloride (0.9 % Sodium Chloride Flush 3 Ml Syringe) 3 ml IVFLUSH QSHIFT [facility] Last Admin: 12/30/24 00:05 Dose: 3 ml Documented By: RADHA Labs 12/29/24 06:18 12/29/24 06:18 Labs: Laboratory Results - last 24 hr 12/29/24 06:18 MCV 90.0 MCH 30.3 MCHC 33.6 RDW 14.2 Plt Count 208 MPV 10.9 Immature Gran % (Auto) 0.5 H Neut % (Auto) 48.1 Lymph % (Auto) 35.0 [place] % (Auto) 12.6 H Eos % (Auto) 3.4 Baso % (Auto) 0.4 Lymph # (Auto) 1.9 [place] # (Auto) 0.7 Eos # (Auto) 0.2 Baso # (Auto) 0.0 Abs Immat Gran (auto) 0.03 Absolute Neuts (auto) 2.7 Absolute Nucleated RBC 0.000 Nucleated RBC % (auto) 0.0 Anion Gap 12 Estim Creat Clear Calc 63.3 Estimated GFR 58 Fasting Glucose 88 Calcium 8.6 Total Bilirubin 0.2 AST 19 ALT 8 Alkaline Phosphatase 89 Total Protein 6.3 L Albumin 3.1 L Microbiology Microbiology Results: Microbiology 12/27/24 16:20 Blood Culture - Preliminary Blood - Venous No growth after 48 hours. 12/27/24 16:20 Blood Culture - Preliminary Blood - Venous No growth after 48 hours. 12/27/24 17:28 Urine Culture - Final Urine clean catch - Clean Catch Midstream Escherichia coli Assessment and Plan (1) Metabolic encephalopathy: Status: Acute Plan 74-year-old female presents from home with 2-3 day history of feeling overall unwell. She states she is forgetful weak and sometimes confused. She states this is typical for UTI. 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 In ER mildly active sediment Metabolic encephalopathy secondary to UTI (ESBL) started on ceftriaxone and changed to Meropenem d/t ESBL Ecoli ID consult pending Likely will need Midline for home Abx Hypertension Atenolol Rheumatoid arthritis doesn't want to take MTX while on Abx Full code Lovenox Need for inpt: IV Abx for resistant UTI with metabolic encephalopathy Quality Stroke Does the patient have a stroke diagnosis?: No VTE Prior VTE?: No VTE Risk Level:: Medical - moderate - high VTE Device Contraindication: Treatment Not Indicated VTE Drug Contraindication: N/A - Med Ordered
[2024-12-30] MEDS: buPROPion HCl XL 150 MG TAB.ER.24H PO (09:30)
[2024-12-30] MEDS: buPROPion HCl XL 300 MG TAB.ER.24H PO (09:30)
--- NOTE | 2024-12-30 12:58 | HO.MIDLINE_ITS ---
Midline Insertion MIDLINE INSERTION Diagnosis: UTI Indication: ABT Pertinent Labs: Reviewed Technique: Using sterile technique including cap and mask, glove and drape, the right arm was prepped and draped in the usual sterile fashion of full barrier technique with CHG. Using ultrasound guidance, right brachial vein access was obtained . 20g x 8cm Powerglide midline catheter was positioned. The procedure was performed in [facility]. Ultrasound was used to document vein patency and for needle entry. A formal ultrasound picture was recorded. Vascular Release Manager has released the line for use and it is currently dressed with a StatLock, Tegaderm, and CHG disc. Verification has been performed for blood return and line patency. Arm Circumference: 34cm Equipment: BARD Powerglide ST midline catheter Catheter Type: 20g x 8cm Lot #: [id number]
--- NOTE | 2024-12-30 14:23 | MHC.CM.PN ---
Addendum entered by Hayley Campbell RN 12/30/24 16:06: DC on hold. Patient notified. Original Note: Per MD, patient will need 10 days IV ertapenem on dc. Spoke w/ daughter, who can administer every other day and has assisted w/ this twice before. Does not feel she needs another teach from [facility] RN. Confirmed w/ [facility] they can administer every other day, opposite daughter. Midline in place. Awaiting ID sign off to follow outpatient. Goal dc today. Daughter aware.
--- NOTE | 2024-12-30 16:36 | P.CNID_ITS ---
History of Present Illness Data of Consult Service Date: 12/30/24 Requesting physician: Cameron Downing Primary Care Provider: Namita Acosta NP HPI Reason for consult: abdominal discomfort She presents with vague abdominal discomfort again. She has had frequent admissions. She has chronic colonization with E coli ,ESBL . She has no dysuria,bacteremia,leukocytosis or fever. Review of Systems 2 Review of Systems: Yes all other systems are reviewed and are negative [facility] Past Medical History Medical History History of ESBL E. coli infection Oxygen dependent Oxygen dependent Sepsis Bacteriuria Urinary tract infection due to extended-spectrum beta lactamase (ESBL) producing Escherichia coli History of ESBL E. coli infection Osteomyelitis COPD (chronic obstructive pulmonary disease) Rheumatoid lung Hypothyroidism Congestive heart failure Fibromyalgia HTN (hypertension) Depression Rheumatoid arthritis Family History Family History Father No problems noted. Other Heart disease Family history: reviewed and not pertinent Surgical History Surgical History Hx of prior ablation treatment Knee joint replacement status Social History Social History Household Members: None Household Members Other:: 0 Housing: Apartment Do you presently have visiting nurse or other home services: Yes Alcohol intake: never Comment: bedside commode Patient Tobacco Use Status: Former Tobacco user Tobacco use type: Cigarette e-Cigarette/Vaping Use: Never Used Second Hand Smoke Exposure: No Advance Directives Date on File: 10/19/23 service: No Meds Allergies Allergy/AdvReac Type Severity Reaction Status Date / Time lisinopril (LISINOPRIL) Allergy Severe ANAPHYLAXIS Verified 12/27/24 14:37 Sulfa (Sulfonamide Allergy Intermediate RASH Verified 12/27/24 14:37 Antibiotics) (SULFA (SULFONAMIDE ANTIBIOTICS)) tramadol (TRAMADOL) Allergy Intermediate RASH Verified 12/27/24 14:37 Gvrmbuy-NEY-YeT Reductase Allergy Rash Verified 12/27/24 14:37 Inhibitor (Aotcivp-Zzt-Jfs Reductase Inhibitor) hydrochlorothiazide (HCTZ) AdvReac Unknown ABNORMAL Verified 12/27/24 14:37 LABS? Active Medications: Current Medications Acetaminophen (Acetaminophen 325 Mg Tablet) 650 mg PO Q6H PRN PRN Reason: Pain, Mild 1-3,fever,headache Last Admin: 12/30/24 13:35 Dose: 650 mg Atenolol (Atenolol 50 Mg Tablet) 50 mg PO DAILY [facility]; Protocol Last Admin: 12/30/24 09:30 Dose: 50 mg Bupropion HCl (Bupropion Hcl Xl 300 Mg Tab.Er.24h) 300 mg PO DAILY@0900 [facility] Last Admin: 12/30/24 09:30 Dose: 300 mg Bupropion HCl (Bupropion Hcl Xl 150 Mg Tab.Er.24h) 150 mg PO DAILY@0900 [facility] Last Admin: 12/30/24 09:30 Dose: 150 mg Calcium Carbonate (Calcium Carbonate 750 Mg Tab.Chew) 750 mg PO Q4H PRN PRN Reason: Heartburn Doxazosin Mesylate (Doxazosin Mesylate 2 Mg Tablet) 2 mg PO BEDTIME [facility]; Protocol Last Admin: 12/29/24 20:27 Dose: 2 mg Enoxaparin Sodium (Enoxaparin Sodium 40 Mg/0.4 Ml Syringe) 40 mg SUBCUT Q24H [facility] Last Admin: 12/29/24 18:32 Dose: 40 mg Fluticasone Propionate (Fluticasone Propionate Nasal 16 Gm Nichols) 1 spray NOSTRIL-B BID PRN PRN Reason: Allergy Symptoms Folic Acid (Folic Acid 1 Mg Tablet) 2 mg PO DAILY [facility] Last Admin: 12/30/24 09:30 Dose: 2 mg Furosemide (Furosemide 40 Mg Tablet) 40 mg PO DAILY [facility]; Protocol Last Admin: 12/30/24 09:30 Dose: 40 mg Hydromorphone HCl (Hydromorphone Hcl 1 Mg/Ml Syringe) 1 mg IVPUSH Q4H PRN; Protocol PRN Reason: Pain, Severe (Pain Scale 7-10) Last Admin: 12/30/24 14:13 Dose: 1 mg Levothyroxine Sodium (Levothyroxine Sodium 50 Mcg Tablet) 50 mcg PO DAILY@0600 [facility] Last Admin: 12/30/24 05:53 Dose: 50 mcg Magnesium Hydroxide (Milk Of Magnesia 30 Ml Oral.Susp) 30 ml PO DAILY PRN PRN Reason: Constipation Melatonin (Melatonin 3 Mg Tablet) 6 mg PO BEDTIME PRN PRN Reason: Insomnia Last Admin: 12/28/24 21:14 Dose: 6 mg Meropenem (Meropenem 1 Gm Vial) 1 gm IVPUSH Q8H [facility] Last Admin: 12/30/24 13:36 Dose: 1 gm Multivitamins/Vitamin C (Multivitamin Tablet) 1 tab PO DAILY [facility] Last Admin: 12/30/24 09:30 Dose: 1 tab Omeprazole (Omeprazole 40 Mg Capsule.Dr) 40 mg PO DAILY@0630 [facility] Last Admin: 12/30/24 05:53 Dose: 40 mg Ondansetron HCl (Ondansetron Hcl 4 Mg/2 Ml Vial) 4 mg IVPUSH Q8H PRN PRN Reason: Nausea and Vomiting Ondansetron HCl (Ondansetron Odt 4 Mg Tab.Rapdis) 4 mg TRANSLINGU Q8H PRN PRN Reason: Nausea and Vomiting Oxycodone HCl (Oxycodone Hcl Immed Release 5 Mg Tablet) 20 mg PO Q4H PRN PRN Reason: Pain, Moderate(Pain Scale 4-6) Last Admin: 12/30/24 13:35 Dose: 20 mg Prednisone (Prednisone 1 Mg Tablet) 4 mg PO DAILY [facility] Last Admin: 12/30/24 09:30 Dose: 4 mg Sodium Chloride (0.9 % Sodium Chloride Flush 3 Ml Syringe) [facility] Last Admin: 12/30/24 09:30 Dose: 3 ml Home Medications ?Medication ?Instructions ?Recorded ?Confirmed ?Last Taken ?Type bupropion HCl 300 mg 24 hr tablet, 300 mg PO DAILY@090 0 08/23/21 12/27/24 12/15/24 History extended release levothyroxine 50 mcg tablet 50 mcg PO DAILY@0600 08/2312/27/24 12/15/24 History methotrexate sodium 2.5 mg tablet 25 mg PO TU 08/23/21 12/27/24 12/15/24 History omeprazole 40 mg capsule,delayed 40 mg PO DAILY@0630 0 08/23/21 12/27/24 12/15/24 History release prednisone 1 mg tablet 4 mg PO DAILY 08/23/2112/2712/15/24 History pregabalin 200 mg capsule 200 mg PO BID 01/07/2312/2712/15/24 History folic acid 1 mg tablet 2 mg PO DAILY 10/13/2312/2712/15/24 History bupropion HCl 150 mg 24 hr tablet, 150 mg PO DAILY@090 0 11/25/23 12/27/24 12/15/24 History extended release acetaminophen 325 mg tablet 650 mg PO Q4H PRN Moderate Pain 03/04/24 12/27/24 Unknown History (Tylenol) (Scale Score 5-6) ibuprofen 200 mg tablet 600 mg PO Q6H PRN Pain 05/0312/27/24 Unknown History melatonin 10 mg tablet 10 mg PO BEDTIME PRN Sleep 0 05/03/24 12/27/24 Unknown History multivitamin 1 tab PO DAILY 05/03/2406/1812/15/24 History atenolol 25 mg tablet 50 mg PO DAILY 08/29/2406/1812/15/24 History fluticasone propionate 50 1 spray intranasal BID PRN A llergy 08/29/24 12/27/24 Unknown History mcg/actuation nasal Symptoms spray,suspension biotin 1 mg tablet 1 mg PO DAILY 10/07/2412/2712/15/24 History furosemide 40 mg tablet 40 mg PO DAILY 10/07/2406/1812/15/24 History Physical Exam 2 Vital Signs: Vital Signs: Last Vital Signs Temp 98.3 F 12/30/24 16:00 Pulse 57 12/30/24 16:00 Resp 20 12/30/24 16:00 BP 142/80 H 12/30/24 16:00 Pulse Ox 94 12/30/24 16:00 O2 Del Method Room Air 12/30/24 16:00 BMI result Body Mass Index 32.8 Const: General: cooperative HEENT: Head: Yes normal to inspection Face and sinus: Yes normal facial exam Mouth: Normal oral and palatal mucosa present Teeth and gingiva: d entition normal Eyes: General: appearance normal, both eyes and all related structures P upils: Equal, round and reactive pupils present Resp: Effort & Inspection: normal respiratory effort Cardio: Rate: regular rate Rhythm: regular rhythm GI: Palpation (GI): Soft to palpation and nontender : General: Yes no CVA tenderness Back/Spine/Pelvis: Back: no CVA tenderness Skin: General skin exam: no rashes or lesions noted Neuro: General: moves all extremities Cranial nerves: Yes Equal, round and reactive pupils present Extrem: General: Yes normal to inspection Psych: Appearance: grossly normal Results Labs 12/29/24 06:18 12/29/24 06:18 Microbiology Microbiology Results: Microbiology 12/27/24 16:20 Blood - Venous Blood Culture - Preliminary No growth after 48 hours. 12/27/24 16:20 Blood - Venous Blood Culture - Preliminary No growth after 48 hours. 12/27/24 17:28 Urine clean catch - Clean Catch Midstream Urine Culture - Final Escherichia coli Assessment and Plan (1) Rheumatoid arthritis: Qualifiers: Rheumatoid arthritis location: unspecified site Rheumatoid factor presence: unspecified presence Qualified Code(s): M06.9 - Rheumatoid arthritis, unspecified Status: Acute Plan Chronic ESBL colonization She has no dysuria,hematuria,leukocytosis or fever. She is colonized with ESBL E coli Would not treat If did have symptoms concerning for UTI would give po macrodantin 100 mg bid for 14 days. See Urology
--- NOTE | 2024-12-30 18:56 | P.CDIM_ITS ---
PROVIDER RESPONSE TEXT: To clarify, the appropriate diagnosis supported by the clinical indicators: Diastolic: chronic QUERY TEXT: PHYSICIAN'S DOCUMENTATION REQUEST Date of Query: 12/30/2024 11:03 AM EDT Patient Name: Alexandrea Renee Admit Date: 12/27/2024 Dear Cameron Benavides MD, A review of the medical record indicates additional documentation may be needed. Please review below and update the documentation accordingly. Clinical Indicators: ED and H &P dated 12/27/24 within the Past Medical History: Congestive heart failure Home medication: Furosemide 40 mg PO Daily. History of Echo performed. Please provide further specificity regarding the most likely type and acuity of CHF: Systolic Please specify if Acute, Chronic, or Acute on chronic, or Unable to determine Diastolic Please specify if Acute, Chronic, or Acute on chronic, or Unable to determine Combined Systolic/Diastolic Please specify if Acute, Chronic, or Acute on chronic, or Unable to determine Other (explain) Clinically unable to determine (explain) Thank you, Callie Mccormick, CCS, CDIS Use of terms such as suspected, likely, concern for, or probable (associated with a specific diagnosis that is being evaluated, monitored, or treated as if it exists) are acceptable and can be coded in the inpatient setting, when documented at the time of discharge. Please use your independent medical judgment in providing your response. THIS QUERY IS PART OF THE PERMANENT MEDICAL RECORD
[2024-12-31 03:17] VITALS: BP 140/90; PULSE 65; RESP 19; TEMP 36.5; O2SAT 95
[2024-12-31] MEDS: oxyCODONE HCl Immed Release 5 MG TABLET 20 MG PO ×2 (04:47→09:09)
[2024-12-31 07:14] VITALS: BP 142/70; PULSE 74; RESP 18; TEMP 36.8; O2SAT 94
[2024-12-31] MEDS: buPROPion HCl XL 300 MG TAB.ER.24H PO (07:34)
[2024-12-31] MEDS: buPROPion HCl XL 150 MG TAB.ER.24H PO (07:34)
--- NOTE | 2024-12-31 10:32 | P.DS_ITS ---
DS: Providers Provider Date of Service: 12/31/24 Date of admission: 12/27/24 17:46 Date of discharge: 12/31/24 Primary care physician: Namita Acosta NP DS: Diagnosis Discharge Diagnosis (1) Metabolic encephalopathy: Status: Acute DS: Summary Hospital Course Hospital Course: admission hpi Status at Discharge Cognitive/behavioral status at discharge: Hospital Course: The patient is a 74-year-old female with a history of recurrent ESBL UTIs, peripheral arterial disease, and osteomyelitis who presented with confusion and mild nausea. She had recently completed a course of ertapenem via PICC line for ESBL UTI. On admission, she was found to have a UTI and was initially started on ceftriaxone. Urine culture later grew ESBL E. coli, and antibiotics were switched to meropenem. Her confusion resolved, and she showed no signs of sepsis during her hospital stay. She was evaluated by ID and ESBL in urine is deemed colonization and does not need IV Abx, instead given that she had some symptoms related to UTI, she will be treated with PO ertapenem for 14 days and will be discharged home. 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 No confusion or signs of sepsis. Follow-Up: * Outpatient follow-up with primary care and urologist d/t recurrent uti Discharge Diagnoses: Metabolic encephalopathy ESBL UTI Time Attestation Discharge Coordination Time (in mins): 40 Quality: Safe Use of Opioids Does Pt have an Active Cancer Diagnosis on the Problem List?: No Quality: Stroke Does the patient have a stroke diagnosis?: No Physical Exam Vital Signs: Vital Signs: Selected Entries 12/31/24 07:14 Temperature 98.3 F Pulse Rate 74 Respiratory Rate 18 Blood Pressure 142/70 H Pulse Oximetry 94 Oxygen Delivery Me thod Room Air DS: Data Data Completed and Pending Completed studies during hospitalization [Text1]: Procedures Insertion of Infusion Device into Right Basilic Vein, Percutaneous Approach (11/19/24) Insertion of Infusion Device into Right Brachial Vein, Percutaneous Approach (08/29/24) Insertion of Infusion Device into Right Cephalic Vein, Percutaneous Approach (10/13/23) Labs on day of discharge: Preliminary micro results at discharge 12/27/24 16:20 Blood Culture - Preliminary Blood - Venous No growth after 48 hours. 12/27/24 16:20 Blood Culture - Preliminary Blood - Venous No growth after 48 hours. Discharge Plan Discharge Anticipated Discharge Date/Time: 12/31/24 10:32 Patient Disposition: Home Health Service Discharge Diagnosis: Metabolic encephalopathy due to ESBL E.coli UTI Referrals: [facility] [Other] - 1 Week Referral Note: [facility] will deliver your IV antibiotics [facility] [Outside] - 1 Day Namita Acosta NP [Primary Care Provider, Internal Medicine] - 1 Week Discharge Medications: New nitrofurantoin monohyd/m-cryst [Macrobid] 100 mg capsule 100 mg PO BID 14 Days Qty: 28 0RF Rx Instructions: must administer with a meal/food Continued omeprazole 40 mg capsule,delayed release(DR/EC) 40 mg PO DAILY@0630 methotrexate sodium 2.5 mg tablet 25 mg PO TU prednisone 1 mg tablet 4 mg PO DAILY levothyroxine 50 mcg tablet 50 mcg PO DAILY@0600 bupropion HCl 300 mg tablet extended release 24 hr 300 mg PO DAILY@0900 ondansetron 4 mg tablet,disintegrating 4 mg PO Q8H PRN (Reason: nausea and vomiting) Qty: 10 0RF folic acid 1 mg tablet 2 mg PO DAILY doxazosin 2 mg Tablet 2 mg PO BEDTIME Qty: 30 0RF Protocol: Hold for SBP< HOLD for SBP < : 90 bupropion HCl 150 mg tablet extended release 24 hr 150 mg PO DAILY@0900 multivitamin Tablet 1 tab PO DAILY ibuprofen 200 mg Tablet 600 mg PO Q6H PRN (Reason: Pain) melatonin 10 mg Tablet 10 mg PO BEDTIME PRN (Reason: Sleep) pregabalin 200 mg capsule 200 mg PO BID oxycodone 20 mg tablet 20 mg PO Q4H PRN (Reason: pain (scale score 7-10)) Qty: 20 0RF acetaminophen [Tylenol] 325 mg Tablet 650 mg PO Q4H PRN (Reason: Moderate Pain (Scale Score 5-6)) fluticasone propionate 50 mcg/actuation [place],Suspension 1 spray INTRANASAL BID PRN (Reason: Allergy Symptoms) Rx Instructions: administer into each nostril atenolol 25 mg tablet 50 mg PO DAILY Protocol: Hold for SBP/HR < HOLD for SBP < : 90 HOLD for HR < : 60 furosemide 40 mg tablet 40 mg PO DAILY biotin 1 mg Tablet 1 mg PO DAILY methenamine hippurate 1 gram tablet 1 g PO DAILY 90 Days Qty: 90 0RF Discharge Orders: Discharge Order (Routine); Ordered 12/31/24 Ordered By: Cameron Benavides Diet: Advance to usual diet Activity on Discharge: As tolerated Stand Alone Forms: Patient Portal Discharge page Print Language: Pakistani Care Plan Goals: recovery from UTI causing metabolic encephalopathy Health Concerns: uti, metabolic encephalopathy Plan of Treatment: Complete the prescribed 14 day course of macrobid adverse medication effects Follow up with primary care provider, ask your primary care provider to refer you to a urologist for recurent UTI Resume other home medication, except as directed by your doctors Assessment: see above
--- NOTE | 2024-12-31 11:33 | MHC.CM.PN ---
Per ID, patient does not need IV abx on dc. [facility] updated. Patient medically cleared for dc home w/ resumption of [employer] and [facility] PT services. BLS transport scheduled for 12:30. She has left her daughter a message and reached out to elementary ell teacher. IMM delivered.
[2024-12-31 12:38] VITALS: BP 138/62; PULSE 59; RESP 18; TEMP 36.2; O2SAT 95
== END 2024-12-31 12:40 | disposition home health service (06) | DRG 689 ==
LOC: HO.ED 17:43 → HO.EDOVER 17:57 → HO.S3 19:24
PROVIDERS: Physician Assistant; Admitting Provider Hospitalist; Emergency Provider Emergency Medicine; PCP Nurse Practitioner Adult Health; Visit Provider Internal Medicine
DX: N39.0 Urinary tract infection, site not specified (principal); G93.41 Metabolic encephalopathy; Z16.12 Extended spectrum beta lactamase (ESBL) resistance; I50.32 Chronic diastolic (congestive) heart failure; I11.0 Hypertensive heart disease with heart failure; M06.9 Rheumatoid arthritis, unspecified; B96.20 Unspecified Escherichia coli [E. coli] as the cause of diseases classified elsewhere; Z20.822 Contact with and (suspected) exposure to COVID-19; Z99.81 Dependence on supplemental oxygen; Z87.440 Personal history of urinary (tract) infections; Z22.358 Carrier of other Enterobacterales; Z87.891 Personal history of nicotine dependence; Z79.631 Long term (current) use of antimetabolite agent; Z79.890 Hormone replacement therapy; Z79.899 Other long term (current) drug therapy
CPT/HCPCS: 36410; 36415; 70450; 80053; 81001; 83605; 83735; 84484; 85025; 85610; 87040; 87086; 87088; 87186; 87502; 87635; 93005; 99285; J0696; J1171; J1650; J2185; J2270; J2405; J7120

== ENCOUNTER → 2024-12-27 14:43 | Outpatient (BNV) | payer MEDICARE, MEDICAID, SELFPAY | PROVIDERS: Admitting Provider Hospitalist; Emergency Provider Emergency Medicine; PCP Nurse Practitioner Adult Health; Visit Provider Internal Medicine | DX: R94.31 Abnormal electrocardiogram [ECG] [EKG] (principal); I10 Essential (primary) hypertension | CPT/HCPCS: 93010 ==

== ENCOUNTER → 2024-12-27 15:46 | Outpatient (BNV) | payer MEDICARE, MEDICAID, SELFPAY | PROVIDERS: Admitting Provider Hospitalist; Emergency Provider Emergency Medicine; PCP Nurse Practitioner Adult Health; Visit Provider Radiology Diagnostic Radiology | DX: G31.9 Degenerative disease of nervous system, unspecified (principal); R90.82 White matter disease, unspecified | CPT/HCPCS: 70450 ==

== ENCOUNTER → 2024-12-27 17:46 | Outpatient (BNV) | payer MEDICARE, MEDICAID, SELFPAY | PROVIDERS: Admitting Provider Hospitalist; Emergency Provider Emergency Medicine; PCP Nurse Practitioner Adult Health; Visit Provider Hospitalist | DX: G93.41 Metabolic encephalopathy (principal) | CPT/HCPCS: 99223; 99232; 99239 ==

== ENCOUNTER → 2024-12-27 17:46 | Outpatient (BNV) | payer MEDICARE, MEDICAID, SELFPAY | PROVIDERS: Admitting Provider Hospitalist; Emergency Provider Emergency Medicine; PCP Nurse Practitioner Adult Health; Visit Provider Internal Medicine | DX: M06.9 Rheumatoid arthritis, unspecified (principal) | CPT/HCPCS: 99222 ==

== ENCOUNTER 2025-01-08 08:00 | Outpatient (REF) | payer MEDICARE, MEDICAID, SELFPAY ==
--- NOTE | ~2025-01-08 | XR_ITS ---
EXAMINATION: XR KNEE, LEFT CLINICAL INFORMATION: M25.562 - Pain in left knee COMPARISON: X-ray 02/19/2024. CT 02/19/2024 TECHNIQUE: Three views of the left knee. FINDINGS: There is a left total knee arthroplasty. There is normal articulation of the arthroplasty components. Redemonstrated is a fracture of the medial aspect of the femoral condyle/metaphysis, mildly displaced. Positioning and alignment appear similar as compared to prior. No significant osseous bridging is evident on x-ray. There is a lucency around the distal aspect of the the tibial component of prosthesis. This appears more prominent as compared to prior radiograph on the AP view. Redemonstrated is posterior angulation of the distal aspect of the prosthesis. The patellar component of prosthesis is well-seated. There is bony irregularity of the superior aspect of the patella, seen on lateral view. This appears similar as compared to the prior radiograph. There is density in suprapatellar region, raising concern for a prominent joint effusion. There is calcific densities seen along the posterior aspect of the knee, which could reflect debris/loose bodies. This calcification seen in the infrapatellar region, could reflect dystrophic calcifications or loose bodies. There is diffuse bone demineralization. XR/XR knee LT 3V IMPRESSION: * Fracture of the medial aspect of the distal femoral condyle/metaphysis, adjacent to the medial aspect of femoral component of prosthesis, similar in position alignment as compared to prior radiograph. No significant osseous bridging is seen. * Lucency around the tibial component of the prosthesis, appearing more prominent as compared to previous. Findings suspicious for loosening and subluxation. * Bony irregularity of the superior aspect of the patella, unchanged from the prior radiograph. * Suspected moderate-large joint effusion. *Multiple calcifications around the knee joint, could reflect dystrophic calcifications, loose bodies. Electronically signed by: Ganesh Espinoza MD 01/08/2025 03:00 PM EDT
--- OUTSIDE RECORDS SUMMARY | 2025-01-09 08:04 | XMS_ITS | Encounter Summary ---
Author Organization [facility] Address [address] [place] [address] Care Team Providers Care Out Of School Hours Care Worker Name Role Phone Travis Holbrook MD Primary Care Provider [phone] Encounter Details Date Type Department Care Team (Late st Contact Info) Description 03/07/2024 Lab Requisition [facility] - Main Lab 299 [facility] [place] [address] Lavonne Irvin MD [address] [place], [place] [phone] Essential (primary) hypertension; Acute kidney failure, unspecified [...] Final Resul t [facility] [address] [place] [address], * (ABNORMAL) Complete blood count (03/07/2024 6:00 AM EST) [facility] Signature WBC 4.8 4.8 - 10.8 K/mcL LAB HEMETOLOGY METHOD 03/07/2024 10:54 AM EST [facility] RBC 3.70(L) 3.80 - 4.80 [...] LAB HEMETOLOGY METHOD 03/07/2024 10:54 AM EST [facility] NRBC Absolute 0.00 <0.10 K/mcL LAB HEMETOLOGY METHOD 03/07/2024 10:54 AM EST [facility] Blood Venous blood specimen / Unknown Venipuncture / Unknown 03/07/2024 6:00 AM EST 03/07/2024 10:35 AM EST us Lavonne Irvin MD LAB BLOOD ORDERABLES Final Resul t [facility] [address] [place] [address], documented in this encounter Visit Diagnoses Diagnosis Essential (primary) hypertension Unspecified essential hypertension Acute kidney failure, unspecified (CMS/HCC V24) Acute kidney failure, unspecified documented in this encounter Care Teams Out Of School Hours Care Worker Relationship Specialty Start Date End Date Travis Holbrook MD [address] [place] [address] 204 [place], [phone] PCP - General Family Medicine 02/28/24 documented as of this encounter
--- OUTSIDE RECORDS SUMMARY | 2025-01-09 08:04 | XMS_ITS | Encounter Summary ---
Author Organization [facility] Address [address] [place] [address] Care Team Providers Care Fiscal Officer Name Role Phone Travis Holbrook MD Primary Care Provider [phone] Encounter Details Date Type Department Care Team (Late st Contact Info) Description 07/03/2024 Lab Requisition [facility] - Main Lab 299 [facility] [place] [address] Travis Holbrook MD [address] [place] [address] 204 [facility] [address] Other meterman (current) drug therapy Social History Tobacco Use [...] PANEL Routine 07/03/2024 11:40 AM EDT Other group home (current) drug therapy documented in this encounter Results * (ABNORMAL) Comprehensive metabolic panel (07/03/2024 11:40 AM EDT) Sodium 134 133 - 145 mmol/L LAB CHEMISTRY METHOD 07/03/2024 2:18 PM EDT [facility] Potassium 4.7 3.5 - 5.5 [...] LAB CHEMISTRY METHOD 07/03/2024 2:18 PM EDT [facility] Albumin 2.6(L) 3.2 - 5.0 g/dL LAB CHEMISTRY METHOD 07/03/2024 2:18 PM EDT [facility] Total Bilirubin 0.4 0.0 - 1.4 mg/dL LAB CHEMISTRY METHOD 07/03/2024 2:18 PM EDT [facility] Blood Venous blood specimen / Unknown 07/03/2024 11:40 AM EDT 07/03/2024 1:16 PM EDT us Travis Holbrook MD LAB BLOOD ORDERABLES Final Resul t [facility] [address] [place] [address], documented in this encounter Visit Diagnoses Diagnosis Other meterman (current) drug therapy documented in this encounter Care Teams Fiscal Officer Relationship Specialty Start Date End Date Travis Holbrook MD [address] [place] [address] 204 [place], [phone] PCP - General Family Medicine 02/28/24 documented as of this encounter
--- OUTSIDE RECORDS SUMMARY | 2025-01-09 08:04 | XMS_ITS | Encounter Summary ---
Author Organization [facility] Address [address] [place] [address] Care Team Providers Care Studio Assistant Name Role Phone Travis Holbrook MD Primary Care Provider [phone] Encounter Details Date Type Department Care Team (Late st Contact Info) Description 03/16/2024 Lab Requisition [facility] - Main Lab 299 [facility] [place] [address] Lavonne Irvin MD [address] [place], [place] [id number] Essential (primary) hypertension; Acute kidney failure, unspecified [...] [facility] [address] [place] [address], * (ABNORMAL) Complete blood count (03/18/2024 7:09 AM EST) [facility] WBC 6.3 4.8 - 10.8 K/mcL LAB [...] t [facility] [address] [place] [address], documented in this encounter Visit Diagnoses Diagnosis Essential (primary) hypertension Unspecified essential hypertension Acute kidney failure, unspecified (CMS/HCC V24) Acute kidney failure, unspecified documented in this encounter Care Teams Studio Assistant Relationship Specialty Start Date End Date Travis Holbrook MD [address] [place] [address], [phone] PCP - General Family Medicine 02/28/24 documented as of this encounter
--- OUTSIDE RECORDS SUMMARY | 2025-01-09 08:04 | XMS_ITS | Encounter Summary ---
Author Organization [facility] Address [address] [place] [address] Care Team Providers Care Cement Side Laster Name Role Phone Travis Holbrook MD Primary Care Provider [phone] Encounter Details Date Type Department Care Team (Late st Contact Info) Description 07/26/2024 Lab Requisition [facility] - Main Lab 299 [facility] [place] [address] Travis Holbrook MD [address] [place] [address] 204 [place], [phone] Muscle weakness (generalized); Emphysema, unspecified (CMS/HCC V24, [...] V28) documented in this encounter Care Teams Cement Side Laster Relationship Specialty Start Date End Date Travis Holbrook MD 38 [facility] [address] [place], [phone] PCP - General Family Medicine 02/28/24 documented as of this encounter
--- OUTSIDE RECORDS SUMMARY | 2025-01-09 08:04 | XMS_ITS | Encounter Summary ---
Author Organization [facility] Address [address] [place] [address] Care Team Providers Care County Court Judge Name Role Phone Travis Holbrook MD Primary Care Provider [phone] Encounter Details Date Type Department Care Team (Late st Contact Info) Description 07/03/2024 Lab Requisition [facility] - Main Lab 299 [facility] [place] [address] Travis Holbrook MD [address] [place] [address] 204 [facility] [address] Muscle weakness (generalized); Emphysema, unspecified [...] AM EDT) WBC 7.8 4.8 - 10.8 [facility] LAB HEMETOLOGY METHOD 07/03/2024 10:02 AM [facility] RBC 3.80 3.80 - 4.80 M/mcL LAB HEMETOLOGY METHOD 07/03/2024 10:02 AM [facility] Hemoglobin 11.4(L) 11.5 - 16.0 g/dL LAB HEMETOLOGY METHOD 07/03/2024 10:02 AM [facility] Hematocrit 36.8 35.0 - 47.0 % LAB HEMETOLOGY METHOD 07/03/2024 10:02 AM [facility] MCV 96.6 79.0 - 98.0 FL LAB HEMETOLOGY METHOD 07/03/2024 10:02 AM [facility] MCH 29.9 27.0 - 32.0 pcg LAB HEMETOLOGY METHOD 07/03/2024 10:02 AM [facility] MCHC 31.0(L) 32.0 - 37.0 g/dL LAB HEMETOLOGY METHOD 07/03/2024 10:02 AM [facility] RDW 16.3(H) 11.0 - 15.0 % LAB HEMETOLOGY METHOD 07/03/2024 10:02 AM [facility] Platelets 202 130 - 400 K/mcL LAB HEMETOLOGY METHOD 07/03/2024 10:02 AM [facility] MPV 12.5(H) 7.0 - 11.0 FL LAB HEMETOLOGY METHOD 07/03/2024 10:02 AM [facility] LAB NRBC 0.0 <1.0 % LAB HEMETOLOGY METHOD 07/03/2024 10:02 AM [facility] NRBC Absolute 0.00 <0.10 K/mcL LAB HEMETOLOGY METHOD 07/03/2024 10:02 AM [facility] Blood Venous blood specimen / Unknown Venipuncture / Unknown 07/03/2024 5:14 AM EDT 07/03/2024 9:27 AM EDT us Travis Holbrook MD LAB BLOOD ORDERABLES Final Resul t [facility] LAB [address] [place] [address], documented in this encounter Visit Diagnoses Diagnosis Muscle weakness (generalized) Emphysema, unspecified (CMS/HCC V24, CMS/HCC V28) documented in this encounter Care Teams County Court Judge Relationship Specialty Start Date End Date Travis Holbrook MD [address] [place] [address], [phone] PCP - General Family Medicine 02/28/24 documented as of this encounter
--- OUTSIDE RECORDS SUMMARY | 2025-01-09 08:04 | XMS_ITS | Encounter Summary ---
Author Organization [facility] Address [address] [place] [address] Care Team Providers Care Automobile Damage Field Appraiser Name Role Phone Travis Holbrook MD Primary Care Provider [phone] Encounter Details Date Type Department Care Team (Late st Contact Info) Description 03/22/2024 Lab Requisition [facility] - Main Lab 299 [facility] [place] [address] Lavonne Irvin MD [address] [place] [address] Essential (primary) hypertension; Acute kidney failure, unspecified [...] unspecified documented in this encounter Care Teams Automobile Damage Field Appraiser Relationship Specialty Start Date End Date Travis Holbrook MD [address] [place] [address] 204 [facility] [phone] PCP - General Family Medicine 02/28/24 documented as of this encounter
--- OUTSIDE RECORDS SUMMARY | 2025-01-09 08:04 | XMS_ITS | Encounter Summary ---
Author Organization [facility] Address [address] [place] [address] Care Team Providers Care Quality Analyst/Technical Writer Name Role Phone Travis Holbrook MD Primary Care Provider [phone] Encounter Details Date Type Department Care Team (Late st Contact Info) Description 07/12/2024 Lab Requisition [facility] - Main Lab 299 [facility] [place] [address] Travis Holbrook MD [address] [place] [address] 204 [facility] [address] Muscle weakness (generalized); Emphysema, unspecified [...] * Magnesium (07/15/2024 5:26 AM EDT) Pathologist [facility] Magnesium 2.1 1.9 - 2.6 mg/dL LAB CHEMISTRY METHOD 07/15/2024 2:11 PM EDT [facility] Blood Venous blood specimen / Unknown Venipuncture / Unknown 07/15/2024 5:26 AM EDT 07/15/2024 10:23 AM EDT us Travis Holbrook MD LAB BLOOD ORDERABLES Final Resul t [facility] 299 [place] [address], * (ABNORMAL) Basic metabolic panel (07/15/2024 5:26 AM EDT) [facility] Sodium 143 133 - 145 mmol/L LAB CHEMISTRY METHOD 07/15/2024 2:29 PM [facility] Potassium 3.8 3.5 - 5.5 mmol/L LAB CHEMISTRY METHOD 07/15/2024 2:29 PM [facility] Chloride 102 96 - 110 mmol/L LAB CHEMISTRY METHOD 07/15/2024 2:29 PM T [facility] CO2 30 21 - 32 mmol/L LAB CHEMISTRY METHOD 07/15/2024 2:29 PM [facility] Anion Gap 11 3 - 11 LAB CHEMISTRY METHOD 07/15/2024 2:29 PM [facility] Glucose 65(L) 70 - 100 mg/dL LAB CHEMISTRY METHOD 07/15/2024 2:29 PM [facility] BUN 19 5 - [...] Resul t [facility] [address] [place] [address], * (ABNORMAL) Complete blood count (07/15/2024 5:26 [...] K/mcL LAB HEMETOLOGY METHOD 07/15/2024 11:34 AM [facility] Blood Venous blood specimen / Unknown Venipuncture / Unknown 07/15/2024 5:26 AM EDT 07/15/2024 10:23 AM EDT us Travis Holbrook MD LAB BLOOD ORDERABLES Final Resul t [facility] [address] [place] [address], documented in this encounter Visit Diagnoses Diagnosis Muscle weakness (generalized) Emphysema, unspecified (CMS/HCC V24, CMS/HCC V28) Hypokalemia Hypopotassemia documented in this encounter Care Teams Quality Analyst/Technical Writer Relationship Specialty Start Date End Date Travis Holbrook MD [address] [place] [address], [phone] PCP - General Family Medicine 02/28/24 documented as of this encounter
--- OUTSIDE RECORDS SUMMARY | 2025-01-09 08:04 | XMS_ITS | Clinical Summary ---
Author Organization [address] Address [address] [place] [address] Phone Care Team Providers Care Nutrition Services Assistant Name Role Phone Travis Holbrook MD Primary Care Provider [phone] Allergies Active Allergy Reactions Criticality Noted Date Comments Adhesive Tape-Silicones Low 02/06/2017 Tape Other Reaction(s): Rash/Dermatitis Chlorthalidone Medium 08/08/2017 Hypokalemia Hydrochlorothiazide High 02/07/2017 Hyponatremia Lisinopril Anaphylaxis,Swell ing High 02/06/2017 anaphylaxis, 2017 [facility] Dwboyyv-Bva-Yxm Reductase Inhibitors 02/06/2017 Statins [Hmg-coa-r Inhibitors] Leg weakness leg pain Sulfa (Sulfonamide Antibiotics) Low 02/06/2017 Sulfa Drugs Other Reaction(s): Rash/Dermatitis Tramadol Low 02/06/2017 Other Reaction(s): Rash/Dermatitis serotonin syndrome , while she was also taking Cymbalta, 2017 Tremor Active Problems Problem Noted Date Diagnosed Date Chronic foot ulcer ([facility] V24, [facility] V28) Chronic patellofemoral pain of left knee 023 Difficult intubation 08/25/2022 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 Gait instability 08/25/2022 Polycythemia vera ([facility] V24, [facility] V28) 03/2022 Post-traumatic osteoarthritis of right knee 03/2022 Proximal muscle weakness 08/25/2022 Right medial tibial plateau fracture, closed, initial encounter 08/25/2022 Urinary incontinence 08/25/2022 Anxiety 08/24/2022 Bronchiectasis ([facility] V24, [facility] V28) 2022 Chronic lower back pain 08/24/2022 COPD (chronic obstructive pu lmonary disease) ([facility], [facility] V28) 08/24/2022 Depression 08/24/2022 GERD (gastroesophageal reflux disease) Jose's thyroiditis 08/24/2022 HLD (hyperlipidemia) 08/24/2022 Lymphedema 08/24/2022 Polycythemia 08/24/2022 Rheumatoid arthritis ([facility] V24, [facility] V28) 08/24/2022 Rheumatoid lung ([facility] V[facility], [facility] V28) 08/24 Vitamin D deficiency 08/24/2022 Lymphedema of left lower extremity 05/13/2020 Overview (04/19/2024): Last Assessment & Plan: Stable at baseline. Takes Lasix as needed for extra leg swelling present. Bronchiectasis without compl ication ([facility] V24, [facility] V28) 01/10/2019 Overview (04/19/2024): Last Assessment & [...] ng multiple sites with positive rheumatoid factor ([facility] V24, [facility] V28) 10/09/2017 Overview (04/19/2024): Last Assessment & Plan: Stable at baseline, although some increased pain recently in right knee due to insufficiency fracture. F/u with Dr. Hair as scheduled. Rheumatoid lung disease ([facility] V24, [facility] V2 8) 10/09/2017 Overview (04/19/2024): Last Assessment & Plan: Stable, with close monitoring by Dr. Ordonez of pulmonology. Continue current therapies. Centrilobular emphysema ([facility] V24, [facility] V2 8) 08/23/2017 Overview (04/19/2024): Last [...] Site/Laterality Comments OTHER SURGICAL HISTORY N/A PROCEDURE: IA HYSTEROSCOPY ENDOMETRIAL ABLATION TUBAL LIGATION PROCEDURE: HISTORICAL [...] LAB CHEMISTRY METHOD 07/22/2024 11:53 AM EDT [facility] Potassium 3.7 3.5 - 5.5 mmol/L LAB CHEMISTRY METHOD 07/22/2024 11:53 AM [facility] Chloride 103 96 - 110 mmol/L LAB CHEMISTRY METHOD 07/22/2024 11:53 AM [facility] CO2 32 21 - 32 mmol/L LAB CHEMISTRY METHOD 07/22/2024 11:53 AM [facility] Anion Gap 8 3 - 11 LAB CHEMISTRY METHOD 07/22/2024 11:53 AM [facility] Glucose 63(L) 70 - 100 mg/dL LAB CHEMISTRY METHOD 07/22/2024 11:53 AM [facility] BUN 24 5 - 25 mg/dL LAB CHEMISTRY METHOD 07/22/2024 11:53 AM [facility] Creatinine 1.30(H) 0.50 - 1.10 mg/dL LAB CHEMISTRY METHOD 07/22/2024 11:53 AM [facility] eGFR 44(L) >=60 mL/min/1. 73m2 LAB CHEMISTRY METHOD 07/22/2024 11:53 AM [facility] Comment:Calculation based on the Chronic Kidney Disease Epidemiology Collaboration (CKD-EPI) equation refit without adjustment for race. BUN/Creatinine Ratio 18.5 LAB CHEMISTRY METHOD 07/22/2024 11:53 AM [facility] Calcium 8.7 8.5 - 10.5 mg/dL LAB CHEMISTRY METHOD 07/22/2024 11:53 AM [facility] Blood Venous blood specimen / Unknown Venipuncture / Unknown 07/22/2024 5:17 AM EDT 07/22/2024 9:39 AM EDT us Travis Holbrook MD LAB BLOOD ORDERABLES Final Resul t [facility] [address] [place] [address], * Lipid panel (07/06/2022) LDL/HDL Ratio 0 [...] Most Recently Relevant to Health Maintenance Insurance [address] [place] [phone] MEDICAID - [place] [employer] MEDICARE Care Teams Nutrition Services Assistant Relationship Specialty Start Date End Date Travis Holbrook MD [address] [place] [address] 204 [place], [phone] PCP - General Family Medicine 02/28/24
--- OUTSIDE RECORDS SUMMARY | 2025-01-09 08:04 | XMS_ITS | Encounter Summary ---
Author Organization [facility] Address [address] [place] [address] Care Team Providers Care Horn Player Name Role Phone Travis Holbrook MD Primary Care Provider [phone] Encounter Details Date Type Department Care Team (Late st Contact Info) Description 07/05/2024 Lab Requisition [facility] - Main Lab 299 [facility] [place] [address] Travis Holbrook MD [address] [place] [address] 204 [facility] [address] Muscle weakness (generalized); Emphysema, unspecified (CMS/HCC [...] AM EDT 07/08/2024 7:28 AM EDT us rTavis Holbrook MD LAB BLOOD ORDERABLES Final Resul t [facility] [address] [place] [address], * (ABNORMAL) Complete blood count (07/08/2024 5:44 AM EDT) WBC 6.1 4.8 - 10.8 K/mcL LAB HEMETOLOGY METHOD 07/08/2024 8:03 AM EDT [facility] RBC 3.90 3.80 - 4.80 [...] LAB HEMETOLOGY METHOD 07/08/2024 8:03 AM EDT [facility] NRBC 0.0 <1.0 % LAB HEMETOLOGY METHOD 07/08/2024 8:03 AM EDT [facility] NRBC Absolute 0.00 <0.10 K/mcL LAB HEMETOLOGY METHOD 07/08/2024 8:03 AM EDT [facility] Blood Venous blood specimen / Unknown Venipuncture / Unknown 07/08/2024 5:44 AM EDT 07/08/2024 7:28 AM EDT us Travis Holbrook MD LAB BLOOD ORDERABLES Final Resul t [facility] [address] [place] [address], documented in this encounter Visit Diagnoses Diagnosis Muscle weakness (generalized) Emphysema, unspecified (CMS/HCC V24, CMS/HCC V28) documented in this encounter Care Teams Horn Player Relationship Specialty Start Date End Date Travis Holbrook MD [address] [place] [address], [phone] PCP - General Family Medicine 02/28/24 documented as of this encounter
--- OUTSIDE RECORDS SUMMARY | 2025-01-09 08:04 | XMS_ITS | Patient Health Record ---
Author Organization [facility] Address [address] [place] [address] Care Team Providers Care Air Traffic Control Manager Name Role Phone Namita Acosta NP Primary Care Provider Jose Pizarro Unavailable [phone] Allergies Allergen (clinical drug ingredient) Drug/Non Drug Allergy documented on EMR Reaction Allergy Type Onset Date Status Adhesive rash Allergy Active Fentanyl and Related rash Drug Allergy Active hydrocortisone Hydrocortisone rash Drug Allergy Active lisinopril Lisinopril anaphylaxis Drug Allergy Act shawanda Substance with 2-dutiwlj-6-methylg lutaryl-coenzyme A reductase inhibitor mechanism of action [...] day(s) Active Vitamin D (Ergocalciferol) 1.25 MG (93537 UT) TAKE 1 CAPSULE BY MOUTH 1 [...] atherosclerosis of arteries of lower limbs (disorder) (32405332898353939 ) Atherosclerosis of sokaogon artery of both lower extremities, with unspecified presence of clinical manifestation (I70.203) Active confirmed Problem Rheumatoid arthritis (46256734) Rheumatoid arthritis involving both feet, unspecified whether rheumatoid factor present (M06.9) Active confirmed Plan Of Treatment Pending Test Test Name Order Date [id number] SKIN/TISSUE 12/17/2021 [id number] SKIN/TISSUE 01/21/2022 [id number] SKIN/TISSUE 05/25/2022 [id number] I&D ABSCESS- SIMPLE,SINGLE 023 42391 I&D ABSCESS- SIMPLE,SINGLE 022 Insurance Providers Payer Name Payer Address Payer Phone Subscriber Number Group Number Insured Name Patient Relationship to Insured Coverage Start Date Coverage End Date [employer] Medicare [id number] [address] [address] [place] [address] [id number] Alexandrea Renee Self - patient is the [...] ribs- CT -sameday went back 09/12/21 09/10/21 [facility] rheumatoid lung-overnight 07/2021
--- OUTSIDE RECORDS SUMMARY | 2025-01-09 08:04 | XMS_ITS | Patient Health Record ---
Author Organization [facility] Address [address] [facility] [address] [place] [address] Care Team Providers Care Graphics Editor Name Role Phone Carlos Alberto Murray Primary Care Provider Eduardo Carr MD MSc, Juju Unavailable [phone] Johnny Blanco Unavailable Unavailable Allergies Allergen (clinical [...] Status W/U Status Risk Notes Problem Sciatica (96808642) Sciatica (724.3) Active confirmed Problem Lumbosacral spondylosis without myelopathy (61129658) Lumbosacral spondylosis without myelopathy (721.3) Active confirmed Problem Muscle pain (44063113) Unspecified myalgia and myositis (729.1) Active confirmed Problem Postherpetic polyneuropathy (74022218) 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) Active confirmed Problem Lumbosacral spondylosis without myelopathy (disorder) (16713716) Spondylosis without myelopathy or radiculopathy, lumbosacral region (M47.817) Active confirmed Problem Lumbosacral spondylosis without myelopathy (17636290) Other spondylosis, lumbar region (M47.896) Active confirmed Problem High risk drug monitoring status (654777163) termite treater helper current use of opiate analgesic (Z79.891) Active confirmed Problem Lumbar spondylosis (060496049) Lumbar spondylosis (M47.816) Active confirmed Problem Left shoulder pain (4167853957) Left shoulder pain (M25.512) Active confirmed Problem Spondylosis (1821216) Spondylosis (M47.9) Active confirmed Problem Postherpetic neuralgia (0728391) Postherpetic neuralgia (B02.29) Active confirmed Problem Shoulder pain (79661743) Shoulder pain (M25.519) Active confirmed Plan Of [...] MEDICARE NGS [address] [place] [phone] [id number] Alexandrea Renee Self - patient is the insured Medical (General) History Medical History History ICD Code Depression Hypercholesterolemia Arthritis Fibromyalgia OCD peripheral neuropathy Surgical History Surgery Date(Month/Year) L knee replacement 2003 L knee revision 2010 Uterine Ablation Tubal Ligation R knee Meniscus repair 2011
--- OUTSIDE RECORDS SUMMARY | 2025-01-09 08:04 | XMS_ITS | Encounter Summary ---
Author Organization [facility] Address [address] [place] [address] Care Team Providers Care Back End Developer Name Role Phone Travis Holbrook MD Primary Care Provider [phone] Encounter Details Date Type Department Care Team (Late st Contact Info) Description 07/19/2024 Lab Requisition [facility] - Main Lab 299 [facility] [place] [address] Travis Holbrook MD [address] [place] [address] 204 [facility] [phone] Muscle weakness (generalized); Emphysema, unspecified (CMS/HCC [...] 07/22/2024 11:[address] [facility] Potassium 3.7 3.5 [...] MD LAB BLOOD ORDERABLES Final Resul t [facility] [address] [place] [address], [place] [phone] * (ABNORMAL) Complete blood count (07/22/2024 5:17 AM EDT) WBC 5.3 4.8 - 10.8 K/mcL LAB HEMETOLOGY METHOD 07/22/2024 10:02 AM EDT [facility] RBC 4.00 3.80 - 4.80 M/mcL LAB HEMETOLOGY METHOD 07/22/2024 10:02 AM EDT [facility] Hemoglobin 11.6 11.5 - 16.0 g/dL LAB HEMETOLOGY METHOD 07/22/2024 10:[address] [facility] Hematocrit 37.5 35.0 - 47.0 % LAB HEMETOLOGY METHOD 07/22/2024 10:02 AM EDT [facility] MCV 94.9 79.0 - 98.0 FL LAB HEMETOLOGY METHOD 07/22/2024 10:02 AM EDT [facility] MCH 29.4 27.0 - 32.0 pcg LAB HEMETOLOGY METHOD 07/22/2024 10:[address] [facility] MCHC 30.9(L) 32.0 - 37.0 g/dL LAB HEMETOLOGY METHOD 07/22/2024 10:02 AM EDT [facility] RDW 15.4(H) 11.0 - 15.0 % LAB HEMETOLOGY [facility] Plate[facility] 142 130 - 400 K/mcL [facility] HEMETOLOG[facility] MPV 11.1(H) 7.0 - 11.0 FL LAB HEMETOLOGY METHOD 07/22/2024 10:02 AM EDT [facility] NRBC 0.0 <1.0 % LAB HEMETOLOGY METHOD 07/22/2024 10:02 AM EDT [facility] NRBC Absolute 0.00 <0.10 K/mcL LAB HEMETOLOGY METHOD 07/22/2024 10:02 AM EDT [facility] Blood Venous blood specimen / Unknown Venipuncture / Unknown 07/22/2024 5:17 AM EDT 07/22/2024 9:39 AM EDT us Travis Holbrook MD LAB BLOOD ORDERABLES Final Resul t [facility] [address] [place] [address], documented in this encounter Visit Diagnoses Diagnosis Muscle weakness (generalized) Emphysema, unspecified (CMS/HCC V24, CMS/HCC V28) documented in this encounter Care Teams Back End Developer Relationship Specialty Start Date End Date Travis Holbrook MD [address] [place] [address], [phone] PCP - General Family Medicine 02/28/24 documented as of this encounter
--- OUTSIDE RECORDS SUMMARY | 2025-01-09 08:04 | XMS_ITS | Encounter Summary ---
Author Organization [facility] Address [address] [place] [address] Care Team Providers Care Immunologist Name Role Phone Travis Holbrook MD Primary Care Provider [phone] Encounter Details Date Type Department Care Team (Late st Contact Info) Description 03/08/[address] [facility] - Main Lab 299 [facility] [place] [address] Lavonne Irvin MD [address] [place], [place] [id number] Essential (primary) hypertension; Acute kidney failure, unspecified [...] mmol/L LAB CHEMISTRY METHOD 03/11/2024 2:58 PM [facility] Potassium 4.2 3.5 - 5.5 mmol/L LAB CHEMISTRY METHOD 03/11/2024 2:58 PM [facility] Chloride 105 96 - 110 mmol/L LAB CHEMISTRY METHOD 03/11/2024 2:58 PM [facility] CO2 32 21 - 32 mmol/L LAB CHEMISTRY METHOD 03/11/2024 2:58 PM [facility] Anion Gap 4 3 - 11 LAB CHEMISTRY METHOD 03/11/2024 2:58 PM [facility] Glucose 79 70 - 100 mg/dL LAB CHEMISTRY METHOD 03/11/2024 2:58 PM [facility] BUN 20 5 - 25 mg/dL LAB CHEMISTRY METHOD 03/11/2024 2:58 PM [facility] Creatinine 1.34(H) 0.50 - 1.10 mg/dL LAB CHEMISTRY METHOD 03/11/2024 2:58 PM [facility] eGFR 42(L) >=60 mL/min/1. 73m2 LAB CHEMISTRY METHOD 03/11/2024 2:58 PM [facility] Comment:Calculation based on the Chronic Kidney Disease Epidemiology Collaboration (CKD-EPI) equation refit without adjustment for race. BUN/Creatinine Ratio 14.9 LAB CHEMISTRY METHOD 03/11/2024 2:58 PM [facility] Calcium 9.1 8.5 - 10.5 mg/dL LAB CHEMISTRY METHOD 03/11/2024 2:58 PM [facility] Blood Venous blood specimen / Unknown Venipuncture / Unknown 03/11/2024 7:17 AM EST 03/11/2024 11:24 AM EST us Lavonne Irvin MD LAB BLOOD ORDERABLES Final Resul t [facility] [address] [place] [address], * (ABNORMAL) Complete blood count (03/11/2024 7:17 AM EST) [facility] Signature WBC 4.7(L) 4.8 - 10.8 K/mcL LAB HEMETOLOGY METHOD 03/11/2024 11:48 AM EST [facility] RBC 3.70(L) 3.80 - 4.80 M/mcL LAB HEMETOLOGY METHOD 03/11/2024 11:48 AM [facility] Hemoglobin 11.2(L) 11.5 - 16.0 g/dL LAB HEMETOLOGY METHOD 03/11/2024 11:48 AM [facility] Hematocrit 35.8 35.0 - 47.0 % LAB HEMETOLOGY METHOD 03/11/2024 11:48 AM [facility] MCV 97.0 79.0 - 98.0 FL LAB HEMETOLOGY METHOD 03/11/2024 11:48 AM EST [facility] MCH 30.4 27.0 - 32.0 pcg LAB HEMETOLOGY METHOD 03/11/2024 11:48 AM [facility] MCHC 31.3(L) 32.0 - 37.0 g/dL LAB HEMETOLOGY METHOD 03/11/2024 11:48 AM [facility] RDW 15.5(H) 11.0 - 15.0 % LAB HEMETOLOGY METHOD 03/11/2024 11:48 AM [facility] Platelets 166 130 - 400 K/mcL LAB HEMETOLOGY METHOD 03/11/2024 11:48 AM [facility] MPV 10.6 7.0 - 11.0 FL LAB HEMETOLOGY METHOD 03/11/2024 11:48 AM [facility] NRBC 0.0 <1.0 % LAB HEMETOLOGY METHOD 03/11/2024 11:48 AM EST [facility] NRBC Absolute 0.00 <0.10 K/mcL LAB HEMETOLOGY METHOD 03/11/2024 11:48 AM EST [facility] Blood Venous blood specimen / Unknown Venipuncture / Unknown 03/11/2024 7:17 AM EST 03/11/2024 11:24 AM EST us Lavonne Irvin MD LAB BLOOD ORDERABLES Final Resul t [facility] [address] [place] [address], documented in this encounter Visit Diagnoses Diagnosis Essential (primary) hypertension Unspecified essential hypertension Acute kidney failure, unspecified (CMS/HCC V24) Acute kidney failure, unspecified documented in this encounter Care Teams Immunologist Relationship Specialty Start Date End Date Travis Holbrook MD [address] [place] [address], [phone] PCP - General Family Medicine 02/28/24 documented as of this encounter
--- OUTSIDE RECORDS SUMMARY | 2025-01-09 08:04 | XMS_ITS | Encounter Summary ---
Author Organization [facility] Address [address] [place] [address] Care Team Providers Care Varnishing Unit Tool Setter Name Role Phone Travis Holbrook MD Primary Care Provider [phone] Encounter Details Date Type Department Care Team (Late st Contact Info) Description 02/28/[address] [facility] - Main Lab 299 [facility] [place] [address] Travis Holbrook MD [address] [place] [address] 204 [facility] [phone] Other ocean transportation intermediary (current) drug therapy Social History Tobacco Use [...] COUNT Routine 02/28/2024 6:48 AM EST Other ocean transportation intermediary (current) drug therapy BASIC METABOLIC PANEL Routine 02/28/2024 6:48 AM EST Other longterm (current) drug therapy documented in this encounter Results * (ABNORMAL) Basic metabolic panel (02/28/2024 6:48 AM EST) Sodium 137 133 - 145 mmol/L LAB CHEMISTRY METHOD 02/28/2024 12:05 PM [facility] Potassium 4.2 3.5 - 5.5 mmol/L LAB CHEMISTRY METHOD 02/28/2024 12:05 PM [facility] Chloride 103 96 - 110 mmol/L LAB CHEMISTRY METHOD 02/28/2024 12:05 PM [facility] CO2 31 21 - 32 mmol/L LAB CHEMISTRY METHOD 02/28/2024 12:05 PM [facility] Anion Gap 3 3 - 11 LAB CHEMISTRY METHOD 02/28/2024 12:05 PM [facility] Glucose 81 70 - 100 mg/dL LAB CHEMISTRY METHOD 02/28/2024 12:05 PM [facility] BUN 26(H) 5 - 25 mg/dL LAB CHEMISTRY METHOD 02/28/2024 12:05 PM [facility] Creatinine 1.00 0.50 - 1.10 mg/dL LAB CHEMISTRY METHOD 02/28/2024 12:05 PM [facility] eGFR 60 >=60 mL/min/1. 73m2 LAB CHEMISTRY METHOD 02/28/2024 12:05 PM [facility] Comment:Calculation based on the Chronic Kidney Disease Epidemiology Collaboration (CKD-EPI) equation refit without adjustment for race. BUN/Creatinine Ratio 26.0 LAB CHEMISTRY METHOD 02/28/2024 12:05 PM [facility] Calcium 9.0 8.5 - 10.5 mg/dL LAB CHEMISTRY METHOD 02/28/2024 12:05 PM [facility] Blood Venous blood specimen / Unknown Venipuncture / Unknown 02/28/2024 6:48 AM EST 02/28/2024 10:45 AM EST us Travis Holbrook MD LAB BLOOD ORDERABLES Final Resul t [facility] [address] [place] [address], [place] [phone] * (ABNORMAL) Complete blood count (02/28/2024 6:48 AM EST) [facility] WBC 6.1 4.8 - 10.8 K/mcL LAB HEMETOLOGY METHOD 02/28/2024 11:33 AM [facility] RBC 3.80 3.80 - 4.80 M/mcL LAB HEMETOLOGY METHOD 02/28/2024 11:33 AM [facility] Hemoglobin 11.4(L) 11.5 - 16.0 g/dL LAB HEMETOLOGY METHOD 02/28/2024 11:33 AM [facility] Hematocrit 36.3 35.0 - 47.0 % LAB HEMETOLOGY METHOD 02/28/2024 11:33 AM [facility] MCV 95.3 79.0 - 98.0 FL LAB HEMETOLOGY METHOD 02/28/2024 11:33 AM [facility] MCH 29.9 27.0 - 32.0 pcg LAB HEMETOLOGY METHOD 02/28/2024 11:33 AM [facility] MCHC 31.4(L) 32.0 - 37.0 g/dL LAB HEMETOLOGY METHOD 02/28/2024 11:33 AM [facility] RDW 15.0 11.0 - 15.0 % LAB HEMETOLOGY METHOD 02/28/2024 11:33 AM [facility] Platelets 180 130 - 400 K/mcL LAB HEMETOLOGY METHOD 02/28/2024 11:33 AM [facility] MPV 10.5 7.0 - 11.0 FL LAB HEMETOLOGY METHOD 02/28/2024 11:33 AM [facility] NRBC 0.0 <1.0 % LAB HEMETOLOGY METHOD 02/28/2024 11:33 AM [facility] NRBC Absolute 0.00 <0.10 K/mcL LAB HEMETOLOGY METHOD 02/28/2024 11:33 AM EST [facility] Blood Venous blood specimen / Unknown Venipuncture / Unknown 02/28/2024 6:48 AM EST 02/28/2024 10:45 AM EST us Travis Holbrook MD LAB BLOOD ORDERABLES Final Resul t [facility] [address] [place] [address], documented in this encounter Visit Diagnoses Diagnosis Other ocean transportation intermediary (current) drug therapy documented in this encounter Care Teams Varnishing Unit Tool Setter Relationship Specialty Start Date End Date Travis Holbrook MD [address] [place] [address], [phone] PCP - General Family Medicine 02/28/24 documented as of this encounter
--- OUTSIDE RECORDS SUMMARY | 2025-01-09 08:04 | XMS_ITS | Encounter Summary ---
Author Organization [facility] Address [address] [place] [address] Care Team Providers Care Gut Sorter Name Role Phone Travis Holbrook MD Primary Care Provider [phone] Encounter Details Date Type Department Care Team (Late st Contact Info) Description 03/05/2024 Lab Requisition [facility] - Main Lab 299 [facility] [place] [place] [address] Travis Holbrook MD [address] [place] [phone] Other exterminator helper termite (current) drug therapy Social History Tobacco Use [...] of this encounter Visit Diagnoses Diagnosis Other senior living (current) drug therapy documented in this encounter Care Teams Gut Sorter Relationship Specialty Start Date End Date Travis Holbrook MD 38 [facility] 204 [facility] [phone] PCP - General Family Medicine 02/28/24 documented as of this encounter
== END 2025-01-08 08:01 | disposition home or self-care (01) ==
LOC: HO.HOSX 08:00
PROVIDERS: Visit Provider Orthopaedic Surgery
DX: M25.562 Pain in left knee (principal); Z96.652 Presence of left artificial knee joint
CPT/HCPCS: 73562; 99202

== ENCOUNTER 2025-01-08 12:22 | Outpatient (AMB) | payer MEDICARE, MEDICAID, SELFPAY ==
--- NOTE | 2025-01-08 12:58 | MHC.OFFVIS ---
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 At today's visit she states that she had a left knee replacement over [address] Osorio. She states that over a year ago she fractured her left knee and was seen at [facility]. Patient stated that ever since her left knee fracture she has been wheel chaired bound. Patient's daughter stated that she fell 6 months ago and re fractured her left knee. She states that that her left leg does feel unbalanced and weak. Patient states that she does not like injections but she has done at home exercises and physical therapy was pushed off until this appointment. Know: No HX:Yes. Allergies lisinopril (LISINOPRIL) Allergy (Severe, Verified 01/08/25 13:08) ANAPHYLAXIS Sulfa (Sulfonamide Antibiotics) (SULFA (SULFONAMIDE ANTIBIOTICS)) Allergy (Intermediate, Verified 01/08/25 13:08) RASH tramadol (TRAMADOL) Allergy (Intermediate, Verified 01/08/25 13:08) RASH Pgjmboz-VVB-WoU Reductase Inhibitor (Zqfebqv-Ogu-Wgr Reductase Inhibitor) Allergy (Verified 01/08/25 13:08) Rash hydrochlorothiazide (HCTZ) Adverse Reaction (Unknown, Verified 01/08/25 13:08) ABNORMAL LABS? Medication List - Last Reconciled 01/08/25 by Harpreet Guerra MD acetaminophen (Tylenol) 650 mg PO Q4H PRN atenolol 50 mg See Protocol PO DAILY biotin 1 mg PO DAILY bupropion HCl XL 300 mg PO DAILY@0900 bupropion HCl XL 150 mg PO DAILY@0900 doxazosin 2 mg See Protocol PO BEDTIME fluticasone propionate 50 mcg/actuation 1 spray intranasal BID PRN folic acid 2 mg PO DAILY furosemide 40 mg PO DAILY ibuprofen 600 mg PO Q6H PRN levothyroxine 50 mcg PO DAILY@0600 melatonin 10 mg PO BEDTIME PRN methenamine hippurate 1 g PO DAILY 90 days methotrexate sodium 25 mg PO TU multivitamin 1 tab PO DAILY nitrofurantoin monohyd/m-cryst 100 mg (Macrobid) 100 mg PO BID 14 days omeprazole 40 mg PO DAILY@0630 ondansetron 4 mg PO Q8H PRN oxycodone 20 mg PO Q4H PRN prednisone 4 mg PO DAILY pregabalin 200 mg PO BID PFSH Medical History History of ESBL E. coli infection Oxygen dependent Oxygen dependent Sepsis Bacteriuria Urinary tract infection due to extended-spectrum beta lactamase (ESBL) producing Escherichia coli History of ESBL E. coli infection Osteomyelitis COPD (chronic obstructive pulmonary disease) Rheumatoid lung Hypothyroidism Congestive heart failure Fibromyalgia HTN (hypertension) Depression Rheumatoid arthritis Surgical History Hx of prior ablation treatment Knee joint replacement status Family History Father No problems noted. Other Heart disease Social History Household Members: None Household Members Other:: 0 Housing: Apartment Do you presently have visiting nurse or other home services: Yes Alcohol intake: never Comment: bedside commode Patient Tobacco Use Status: Former Tobacco user Tobacco use type: Cigarette e-Cigarette/Vaping Use: Never Used Second Hand Smoke Exposure: No Advance Directives Date on File: 10/19/23 service: No Physical Exam Vital Signs: BMI result Body Mass Index 34.5 Extrem Other: Left knee examination shows that the surgical incision is well healed, no erythema, pain with range of motion Results Reviewed Results Reviewed: X-rays of the patient's left knee show lucency around the tibial component is well as fracture of the medial epicondyle of unclear chronicity Assessment & Plan Assessment & Plan (1) Left knee pain: Code(s): M25.562 - Pain in left knee Category: Medical Plan Ms. 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 I had a lengthy discussion with the patient and her daughter regarding the treatment options. At this point the patient is wheelchair bound because of her pain. The patient may be a candidate for revision arthroplasty surgery. Thus, I will have her meet with my partner, Dr. Harman, to further discuss the risks and benefits of revision surgery. She will continue with her activity modifications in the meantime. Feel free to call me at any time should questions regarding her orthopedic management arise. I spent 21 minutes in reviewing the patient's records and imaging studies, seeing the patient and documenting in the medical record. Orders: Orders XR knee LT 3V Today M25.562 - Pain in left knee Coding Level of Care Code New Pt Level 3 (05615) Complex EM visit Add On G2211 Diagnoses Left knee pain M25.562
[2025-01-08 13:08] VITALS: BMI 34.5
--- OUTSIDE RECORDS SUMMARY | 2025-01-08 15:34 | XMS_ITS | Encounter Summary ---
Author Organization [facility] Address [address] [place] [address] Care Team Providers Care Traffic Operator Name Role Phone Travis Holbrook MD Primary Care Provider [phone] Encounter Details Date Type Department Care Team (Late st Contact Info) Description 07/03/2024 Lab Requisition [facility] - Main Lab [address] [facility] [employer] [place] [address] Travis Holbrook MD [address] [place] [address] [address] [facility] [phone] Muscle weakness (generalized); Emphysema, unspecified [...] AM EDT) WBC 7.8 4.8 - 10.8 K/[facility] LAB HEMETOLOGY METHOD 07/03/2024 10:02 AM [facility] RBC 3.80 3.80 - 4.80 M/mcL LAB HEMETOLOGY METHOD 07/03/2024 10:02 AM [facility] Hemoglobin 11.4(L) 11.5 - 16.0 g/dL LAB HEMETOLOGY METHOD 07/03/2024 10:02 AM [facility] Hematocrit 36.8 35.0 - 47.0 % LAB HEMETOLOGY METHOD 07/03/2024 10:02 AM [facility] MCV 96.6 79.0 - 98.0 FL LAB HEMETOLOGY METHOD 07/03/2024 10:02 AM [facility] MCH 29.9 27.0 - 32.0 pcg LAB HEMETOLOGY METHOD 07/03/2024 10:02 AM [facility] MCHC 31.0(L) 32.0 - 37.0 g/dL LAB HEMETOLOGY METHOD 07/03/2024 10:02 AM [facility] RDW 16.3(H) 11.0 - 15.0 % LAB HEMETOLOGY METHOD 07/03/2024 10:02 AM [facility] Platelets 202 130 - 400 K/mcL LAB HEMETOLOGY METHOD 07/03/2024 10:02 AM [facility] MPV 12.5(H) 7.0 - 11.0 FL LAB HEMETOLOGY METHOD 07/03/2024 10:02 AM [facility] NRBC 0.0 <1.0 % LAB HEMETOLOGY METHOD 07/03/2024 10:02 AM [facility] NRBC Absolute 0.00 <0.10 K/mcL LAB HEMETOLOGY METHOD 07/03/2024 10:02 AM [facility] Blood Venous blood specimen / Unknown Venipuncture / Unknown 07/03/2024 5:14 AM EDT 07/03/2024 9:27 AM EDT us Trvais Holbrook MD LAB BLOOD ORDERABLES Final Resul t [facility] ([facility] [address] [place] [address], documented in this encounter Visit Diagnoses Diagnosis Muscle weakness (generalized) Emphysema, unspecified (CMS/HCC V24, CMS/HCC V28) documented in this encounter Care Teams Traffic Operator Relationship Specialty Start Date End Date Travis Holbrook MD [address] [place] [address], [phone] PCP - General Family Medicine 02/28/24 documented as of this encounter
--- OUTSIDE RECORDS SUMMARY | 2025-01-08 15:34 | XMS_ITS | Encounter Summary ---
Author Organization [facility] Address [address] [place] [address] Care Team Providers Care Chainstitch Tunnel Elastic Operator Name Role Phone Travis Holbrook MD Primary Care Provider [phone] Encounter Details Date Type Department Care Team (Late st Contact Info) Description 03/16/2024 Lab Requisition [facility] - Main Lab 299 [facility] [place] [address] Lavonne Irvin MD [address] [place], [place] [id number] Essential (primary) hypertension; Acute kidney failure, unspecified [...] mmol/L LAB CHEMISTRY METHOD 03/18/2024 1:26 PM [facility] Potassium 4.1 3.5 - 5.5 mmol/L LAB CHEMISTRY METHOD 03/18/2024 1:26 PM [facility] Chloride 104 96 - 110 mmol/L LAB CHEMISTRY METHOD 03/18/2024 1:26 PM [facility] CO2 31 21 - 32 mmol/L LAB CHEMISTRY METHOD 03/18/2024 1:26 PM [facility] Anion Gap 2(L) 3 - 11 LAB CHEMISTRY METHOD 03/18/2024 1:26 PM [facility] Glucose 75 70 - 100 mg/dL LAB CHEMISTRY METHOD 03/18/2024 1:26 PM [facility] BUN 23 5 - 25 mg/dL LAB CHEMISTRY METHOD 03/18/2024 1:26 PM [facility] Creatinine 1.30(H) 0.50 - 1.10 mg/dL LAB CHEMISTRY METHOD 03/18/2024 1:26 PM [facility] eGFR 44(L) >=60 mL/min/1. 73m2 LAB CHEMISTRY METHOD 03/18/2024 1:26 PM [facility] Comment:Calculation based on the Chronic Kidney Disease Epidemiology Collaboration (CKD-EPI) equation refit without adjustment for race. BUN/Creatinine Ratio 17.7 LAB CHEMISTRY METHOD 03/18/2024 1:26 PM [facility] Calcium 8.9 8.5 - 10.5 mg/dL LAB CHEMISTRY METHOD 03/18/2024 1:26 PM [facility] Blood Venous blood specimen / Unknown Venipuncture / Unknown 03/18/2024 7:09 AM EST 03/18/2024 11:39 AM EST us Lavonne Irvin MD LAB BLOOD ORDERABLES Final Resul t [facility] [address] [place] [address], * (ABNORMAL) Complete blood count (03/18/2024 7:09 AM EST) [facility] WBC 6.3 4.8 - 10.8 K/mcL LAB HEMETOLOGY METHOD 03/18/2024 11:57 AM EST [facility] RBC 3.90 3.80 - 4.80 M/mcL LAB HEMETOLOGY METHOD 03/18/2024 11:57 AM EST [facility] Hemoglobin 11.6 11.5 - 16.0 g/dL LAB HEMETOLOGY METHOD 03/18/2024 11:57 AM [facility] Hematocrit 37.4 35.0 - 47.0 % LAB HEMETOLOGY METHOD 03/18/2024 11:57 AM [facility] MCV 97.1 79.0 - 98.0 FL LAB HEMETOLOGY METHOD 03/18/2024 11:57 AM [facility] MCH 30.1 27.0 - 32.0 pcg LAB HEMETOLOGY METHOD 03/18/2024 11:57 AM [facility] MCHC 31.0(L) 32.0 - 37.0 g/dL LAB HEMETOLOGY METHOD 03/18/2024 11:57 AM EST [facility] RDW 15.9(H) 11.0 - 15.0 % LAB HEMETOLOGY METHOD 03/18/2024 11:57 AM [facility] Platelets 148 130 - 400 K/mcL LAB HEMETOLOGY METHOD 03/18/2024 11:57 AM EST [facility] MPV 11.0 7.0 - 11.0 FL LAB HEMETOLOGY METHOD 03/18/2024 11:57 AM EST [facility] NRBC 0.0 <1.0 % LAB HEMETOLOGY METHOD 03/18/2024 11:57 AM EST [facility] NRBC Absolute 0.00 <0.10 K/mcL LAB HEMETOLOGY METHOD 03/18/2024 11:57 AM EST [facility] Blood Venous blood specimen / Unknown Venipuncture / Unknown 03/18/2024 7:09 AM EST 03/18/2024 11:39 AM EST us Lavonne Irvin MD LAB BLOOD ORDERABLES Final Resul t [facility] [address] [place] [address], documented in this encounter Visit Diagnoses Diagnosis Essential (primary) hypertension Unspecified essential hypertension Acute kidney failure, unspecified (CMS/HCC V24) Acute kidney failure, unspecified documented in this encounter Care Teams Chainstitch Tunnel Elastic Operator Relationship Specialty Start Date End Date Travis Holbrook MD [address] [place] [address], [phone] PCP - General Family Medicine 02/28/24 documented as of this encounter
--- OUTSIDE RECORDS SUMMARY | 2025-01-08 15:34 | XMS_ITS | Encounter Summary ---
Author Organization [facility] Address [address] [place] [address] Care Team Providers Care Decontaminator Name Role Phone Travis Holbrook MD Primary Care Provider [phone] Encounter Details Date Type Department Care Team (Late st Contact Info) Description 02/28/2024 Lab Requisition [facility] - Main Lab 299 [facility] [place] [address] Travis Holbrook MD [address] [place] [address] 204 [facility] [phone] Other termite exterminator (current) drug therapy Social History Tobacco Use [...] COUNT Routine 02/28/2024 6:48 AM EST Other termite exterminator (current) drug therapy BASIC METABOLIC PANEL Routine 02/28/2024 6:48 AM EST Other longterm (current) drug therapy documented in this encounter Results * (ABNORMAL) Basic metabolic panel (02/28/2024 6:48 AM EST) Sodium 137 133 - 145 mmol/L LAB CHEMISTRY METHOD 02/28/2024 12:05 PM [facility] Potassium 4.2 3.5 - 5.5 mmol/L LAB CHEMISTRY METHOD 02/28/2024 12:05 PM [facility] Chloride 103 96 - 110 mmol/L LAB CHEMISTRY METHOD 02/28/2024 12:05 PM [facility] CO2 31 21 - 32 mmol/L LAB CHEMISTRY METHOD 02/28/2024 12:05 PM [facility] Anion Gap 3 3 - 11 LAB CHEMISTRY METHOD 02/28/2024 12:05 PM [facility] Glucose 81 70 - 100 mg/dL LAB CHEMISTRY METHOD 02/28/2024 12:05 PM [facility] BUN 26(H) 5 - 25 mg/dL LAB CHEMISTRY METHOD 02/28/2024 12:05 PM [facility] Creatinine 1.00 0.50 - 1.10 mg/dL LAB CHEMISTRY METHOD 02/28/2024 12:05 PM [facility] eGFR 60 >=60 mL/min/1. 73m2 LAB CHEMISTRY METHOD 02/28/2024 12:05 PM [facility] Comment:Calculation based on the Chronic Kidney Disease Epidemiology Collaboration (CKD-EPI) equation refit without adjustment for race. BUN/Creatinine Ratio 26.0 LAB CHEMISTRY METHOD 02/28/2024 12:05 PM [facility] Calcium 9.0 8.5 - 10.5 mg/dL LAB CHEMISTRY METHOD 02/28/2024 12:05 PM [facility] Blood Venous blood specimen / Unknown Venipuncture / Unknown 02/28/2024 6:48 AM EST 02/28/2024 10:45 AM EST us Travis Holbrook MD LAB BLOOD ORDERABLES Final Resul t [facility] [address] [place] [address], [place] [phone] * (ABNORMAL) Complete blood count (02/28/2024 6:48 AM EST) [facility] WBC 6.1 4.8 - 10.8 K/mcL LAB HEMETOLOGY METHOD 02/28/2024 11:33 AM [facility] RBC 3.80 3.80 - 4.80 M/mcL LAB HEMETOLOGY METHOD 02/28/2024 11:33 AM [facility] Hemoglobin 11.4(L) 11.5 - 16.0 g/dL LAB HEMETOLOGY METHOD 02/28/2024 11:33 AM [facility] Hematocrit 36.3 35.0 - 47.0 % LAB HEMETOLOGY METHOD 02/28/2024 11:33 AM [facility] MCV 95.3 79.0 - 98.0 FL LAB HEMETOLOGY METHOD 02/28/2024 11:33 AM [facility] MCH 29.9 27.0 - 32.0 pcg LAB HEMETOLOGY METHOD 02/28/2024 11:33 AM [facility] MCHC 31.4(L) 32.0 - 37.0 g/dL LAB HEMETOLOGY METHOD 02/28/2024 11:33 AM [facility] RDW 15.0 11.0 - 15.0 % LAB HEMETOLOGY METHOD 02/28/2024 11:33 AM [facility] Platelets 180 130 - 400 K/mcL LAB HEMETOLOGY METHOD 02/28/2024 11:33 AM [facility] MPV 10.5 7.0 - 11.0 FL LAB HEMETOLOGY METHOD 02/28/2024 11:33 AM [facility] NRBC 0.0 <1.0 % LAB HEMETOLOGY METHOD 02/28/2024 11:33 AM [facility] NRBC Absolute 0.00 <0.10 K/mcL LAB HEMETOLOGY METHOD 02/28/2024 11:33 AM EST [facility] Blood Venous blood specimen / Unknown Venipuncture / Unknown 02/28/2024 6:48 AM EST 02/28/2024 10:45 AM EST us Travis Holbrook MD LAB BLOOD ORDERABLES Final Resul t [facility] [address] [place] [address], documented in this encounter Visit Diagnoses Diagnosis Other termite exterminator (current) drug therapy documented in this encounter Care Teams Decontaminator Relationship Specialty Start Date End Date Travis Holbrook MD [address] [place] [address], [phone] PCP - General Family Medicine 02/28/24 documented as of this encounter
--- OUTSIDE RECORDS SUMMARY | 2025-01-08 15:34 | XMS_ITS | Encounter Summary ---
Author Organization [facility] Address [address] [place] [address] Care Team Providers Care Concrete Paving Supervisor Name Role Phone Travis Holbrook MD Primary Care Provider Encounter Details Date Type Department Care Team (Late st Contact Info) Description 03/05/2024 Lab Requisition [facility] - Main Lab [address] [facility] [place] [address] Travis Holbrook MD [address] [place] [phone] Other terminal superintendent (current) drug therapy Social History Tobacco Use [...] of this encounter Visit Diagnoses Diagnosis Other fci (current) drug therapy documented in this encounter Care Teams Concrete Paving Supervisor Relationship Specialty Start Date End Date Travis Holbrook MD 38 [facility] 204 [facility] [phone] PCP - General Family Medicine 02/28/24 documented as of this encounter
--- OUTSIDE RECORDS SUMMARY | 2025-01-08 15:34 | XMS_ITS | Encounter Summary ---
Author Organization [facility] Address [address] [place] [address] Care Team Providers Care Livestock Yard Attendant Name Role Phone Travis Holbrook MD Primary Care Provider [phone] Encounter Details Date Type Department Care Team (Late st Contact Info) Description 07/26/2024 Lab Requisition [facility] - Main Lab 299 [facility] [place] [address] Travis Holbrook MD [address] [place] [address] 204 [place], [phone] Muscle weakness (generalized); Emphysema, unspecified (CMS/HCC V24, [...] V28) documented in this encounter Care Teams Livestock Yard Attendant Relationship Specialty Start Date End Date Travis Holbrook MD 38 [facility] 204 [place], [phone] PCP - General Family Medicine 02/28/24 documented as of this encounter
--- OUTSIDE RECORDS SUMMARY | 2025-01-08 15:34 | XMS_ITS | Encounter Summary ---
Author Organization [facility] Address [address] [place] [address] Care Team Providers Care Java Developer Name Role Phone Travis Holbrook MD Primary Care Provider [phone] Encounter Details Date Type Department Care Team (Late st Contact Info) Description 03/22/2024 Lab Requisition [facility] - Main Lab 299 [facility] [place] [address] Lavonne Irvin MD [address] [place] [address] Essential (primary) hypertension; Acute kidney failure, unspecified [...] unspecified documented in this encounter Care Teams Java Developer Relationship Specialty Start Date End Date Travis Holbrook MD [address] [place] [address] 204 [facility] [phone] PCP - General Family Medicine 02/28/24 documented as of this encounter
--- OUTSIDE RECORDS SUMMARY | 2025-01-08 15:35 | XMS_ITS | Patient Health Record ---
Author Organization [facility] Address [address] [place] [address] Care Team Providers Care Snuff Drier Name Role Phone Namita Acosta NP Primary Care Provider Jose Pizarro Unavailable [phone] Allergies Allergen (clinical drug ingredient) Drug/Non Drug Allergy documented on EMR Reaction Allergy Type Onset Date Status Adhesive rash Allergy Active Fentanyl and Related rash Drug Allergy Active hydrocortisone Hydrocortisone rash Drug Allergy Active lisinopril Lisinopril anaphylaxis Drug Allergy Act shawanda Substance with 0-qwplqzw-7-methylg lutaryl-coenzyme A reductase inhibitor mechanism of action [...] day(s) Active Vitamin D (Ergocalciferol) 1.25 MG (73761 UT) TAKE 1 CAPSULE BY MOUTH 1 [...] atherosclerosis of arteries of lower limbs (disorder) (40724984534590997 ) Atherosclerosis of lumbee artery of both lower extremities, with unspecified presence of clinical manifestation (I70.203) Active confirmed Problem Rheumatoid arthritis (35394490) Rheumatoid arthritis involving both feet, unspecified whether rheumatoid factor present (M06.9) Active confirmed Plan Of Treatment Pending Test Test Name Order Date [id number] SKIN/TISSUE 12/17/2021 [id number] SKIN/TISSUE 01/21/2022 [id number] SKIN/TISSUE 05/25/2022 [id number] I&D ABSCESS- SIMPLE,SINGLE 023 29246 I&D ABSCESS- SIMPLE,SINGLE 022 Insurance Providers Payer Name Payer Address Payer Phone Subscriber Number Group Number Insured Name Patient Relationship to Insured Coverage Start Date Coverage End Date [employer] Medicare [id number] [address] [address] [place] [phone] [id number] Alexandrea Renee Self - patient is the [...] ribs- CT -sameday went back 09/12/21 09/10/21 [facility] rheumatoid lung-overnight 07/2021
--- OUTSIDE RECORDS SUMMARY | 2025-01-08 15:35 | XMS_ITS | Encounter Summary ---
Author Organization [facility] Address [address] [place] [address] Care Team Providers Care Study Director Name Role Phone Travis Holbrook MD Primary Care Provider [phone] Encounter Details Date Type Department Care Team (Late st Contact Info) Description 07/19/[address] [facility] - Main Lab 299 [facility] [place] [address] Travis Holbrook MD [address] [place] [address] 204 [facility] [phone] Muscle weakness (generalized); Emphysema, unspecified (CMS/HCC [...] mmol/L LAB CHEMISTRY METHOD 07/22/2024 11:[address] [facility] Potassium 3.7 3.5 - 5.5 mmol/L LAB CHEMISTRY METHOD 07/22/2024 11:[address] [facility] Chloride 103 96 - 110 mmol/L LAB CHEMISTRY METHOD 07/22/2024 11:[address] [facility] CO2 32 21 - 32 mmol/L LAB CHEMISTRY METHOD 07/22/2024 11:[address] [facility] Anion Gap 8 3 - 11 LAB CHEMISTRY METHOD 07/22/2024 11:[address] [facility] Glucose 63(L) 70 - 100 mg/dL LAB CHEMISTRY METHOD 07/22/2024 11:[address] [facility] BUN 24 5 - 25 mg/dL LAB CHEMISTRY METHOD 07/22/2024 11:[address] [facility] Creatinine 1.30(H) 0.50 - 1.10 mg/dL LAB CHEMISTRY METHOD 07/22/2024 11:[address] [facility] eGFR 44(L) >=60 mL/min/1. 73m2 LAB CHEMISTRY METHOD 07/22/2024 11:[address] [facility] Comment:Calculation based on the Chronic Kidney Disease Epidemiology Collaboration (CKD-EPI) equation refit without adjustment for race. BUN/Creatinine Ratio 18.5 LAB CHEMISTRY METHOD 07/22/2024 11:[address] [facility] Calcium 8.7 8.5 - 10.5 mg/dL LAB CHEMISTRY METHOD 07/22/2024 11:[address] [facility] Blood Venous blood specimen / Unknown Venipuncture / Unknown 07/22/2024 5:17 AM EDT 07/22/2024 9:39 AM EDT us Travis Holbrook MD LAB BLOOD ORDERABLES Final Resul t [facility] [address] [place] [address], [place] [phone] * (ABNORMAL) Complete blood count (07/22/2024 5:17 AM EDT) WBC 5.3 4.8 - 10.8 K/mcL LAB HEMETOLOGY METHOD 07/22/2024 10:02 AM EDT [facility] RBC 4.00 3.80 - 4.80 M/mcL LAB HEMETOLOGY METHOD 07/22/2024 10:02 AM EDT [facility] Hemoglobin 11.6 11.5 - 16.0 g/dL LAB HEMETOLOGY METHOD 07/22/2024 10:[address] [facility] Hematocrit 37.5 35.0 - 47.0 % LAB HEMETOLOGY METHOD 07/22/2024 10:02 AM EDT [facility] MCV 94.9 79.0 - 98.0 FL LAB HEMETOLOGY METHOD 07/22/2024 10:02 AM EDT [facility] MCH 29.4 27.0 - 32.0 pcg LAB HEMETOLOGY METHOD 07/22/2024 10:[address] [facility] MCHC 30.9(L) 32.0 - 37.0 g/dL LAB HEMETOLOGY METHOD 07/22/2024 10:02 AM EDT [facility] RDW 15.4(H) 11.0 - 15.0 % LAB [facility] 142 130 - 400 K/mcL [facility]EMETOLOGY [facility] MPV 11.1(H) 7.0 - 11.0 FL LAB HEMETOLOGY METHOD 07/22/2024 10:02 AM EDT [facility] NRBC 0.0 <1.0 % LAB HEMETOLOGY METHOD 07/22/2024 10:02 AM EDT [facility] NRBC Absolute 0.00 <0.10 K/mcL LAB HEMETOLOGY METHOD 07/22/2024 10:02 AM EDT [facility] Blood Venous blood specimen / Unknown Venipuncture / Unknown 07/22/2024 5:17 AM EDT 07/22/2024 9:39 AM EDT us Travis Holbrook MD LAB BLOOD ORDERABLES Final Resul t [facility] [address] [place] [address], documented in this encounter Visit Diagnoses Diagnosis Muscle weakness (generalized) Emphysema, unspecified (CMS/HCC V24, CMS/HCC V28) documented in this encounter Care Teams Study Director Relationship Specialty Start Date End Date Travis Holbrook MD [address] [place] [address], [phone] PCP - General Family Medicine 02/28/24 documented as of this encounter
--- OUTSIDE RECORDS SUMMARY | 2025-01-08 15:35 | XMS_ITS | Encounter Summary ---
Author Organization [facility] Address [address] [place] [address] Care Team Providers Care Spinner Tender Name Role Phone Travis Holbrook MD Primary Care Provider [phone] Encounter Details Date Type Department Care Team (Late st Contact Info) Description 07/05/2024 Lab Requisition [facility] - Main Lab 299 [facility] [place] [address] Travis Holbrook MD [address] [place] [address] 204 [facility] [phone] Muscle weakness (generalized); Emphysema, unspecified (CMS/HCC [...] mmol/L LAB CHEMISTRY METHOD 07/08/2024 8:22 AM [facility] Potassium 3.9 3.5 - 5.5 mmol/L LAB CHEMISTRY METHOD 07/08/2024 8:22 AM [facility] Comment:Hemolysis present Chloride 103 96 - 110 mmol/L LAB CHEMISTRY METHOD 07/08/2024 8:22 AM [facility] CO2 31 21 - 32 mmol/L LAB CHEMISTRY METHOD 07/08/2024 8:22 AM [facility] Anion Gap 6 3 - 11 LAB CHEMISTRY METHOD 07/08/2024 8:22 AM [facility] Glucose 97 70 - 100 mg/dL LAB CHEMISTRY METHOD 07/08/2024 8:22 AM [facility] Comment:Lipemia present BUN 26(H) 5 - 25 mg/dL LAB CHEMISTRY METHOD 07/08/2024 8:22 AM [facility] Creatinine 1.30(H) 0.50 - 1.10 mg/dL LAB CHEMISTRY METHOD 07/08/2024 8:22 AM [facility] eGFR 44(L) >=60 mL/min/1. 73m2 LAB CHEMISTRY METHOD 07/08/2024 8:22 AM [facility] Comment:Calculation based on the Chronic Kidney Disease Epidemiology Collaboration (CKD-EPI) equation refit without adjustment for race. BUN/Creatinine Ratio 20.0 LAB CHEMISTRY METHOD 07/08/2024 8:22 AM [facility] Calcium 9.0 8.5 - 10.5 mg/dL LAB CHEMISTRY METHOD 07/08/2024 8:22 AM [facility] Blood Venous blood specimen / Unknown Venipuncture / Unknown 07/08/2024 5:44 AM EDT 07/08/2024 7:28 AM EDT us Travis Holbrook MD LAB BLOOD ORDERABLES Final Resul t [facility] [address] [place] [address], * (ABNORMAL) Complete blood count (07/08/2024 5:44 AM EDT) WBC 6.1 4.8 - 10.8 K/mcL LAB HEMETOLOGY METHOD 07/08/2024 8:03 AM EDT [facility] RBC 3.90 3.80 - 4.80 M/mcL LAB HEMETOLOGY METHOD 07/08/2024 8:03 AM [facility] Hemoglobin 11.7 11.5 - 16.0 g/dL LAB HEMETOLOGY METHOD 07/08/2024 8:03 AM [facility] Hematocrit 37.1 35.0 - 47.0 % LAB HEMETOLOGY METHOD 07/08/2024 8:03 AM [facility] MCV 95.9 79.0 - 98.0 FL LAB HEMETOLOGY METHOD 07/08/2024 8:03 AM [facility] MCH 30.2 27.0 - 32.0 pcg LAB HEMETOLOGY METHOD 07/08/2024 8:03 AM [facility] MCHC 31.5(L) 32.0 - 37.0 g/dL LAB HEMETOLOGY METHOD 07/08/2024 8:03 AM [facility] RDW 15.9(H) 11.0 - 15.0 % LAB HEMETOLOGY METHOD 07/08/2024 8:03 AM [facility] Platelets 223 130 - 400 K/mcL LAB HEMETOLOGY METHOD 07/08/2024 8:03 AM [facility] MPV 10.9 7.0 - 11.0 FL LAB HEMETOLOGY METHOD 07/08/2024 8:03 AM EDT [facility] NRBC 0.0 <1.0 % LAB HEMETOLOGY METHOD 07/08/2024 8:03 AM EDT [facility] NRBC Absolute 0.00 <0.10 K/mcL LAB HEMETOLOGY METHOD 07/08/2024 8:03 AM EDT [facility] Blood Venous blood specimen / Unknown Venipuncture / Unknown 07/08/2024 5:44 AM EDT 07/08/2024 7:28 AM EDT us Travis Holbrook MD LAB BLOOD ORDERABLES Final Resul t [facility] [address] [place] [address], documented in this encounter Visit Diagnoses Diagnosis Muscle weakness (generalized) Emphysema, unspecified (CMS/HCC V24, CMS/HCC V28) documented in this encounter Care Teams Spinner Tender Relationship Specialty Start Date End Date Travis Holbrook MD [address] [place] [address], [phone] PCP - General Family Medicine 02/28/24 documented as of this encounter
--- OUTSIDE RECORDS SUMMARY | 2025-01-08 15:35 | XMS_ITS | Patient Health Record ---
Author Organization [facility] Address [address] [facility] [address] [place] [address] Care Team Providers Care Fish Salter Name Role Phone Carlos Alberto Murray Primary Care Provider Eduardo Carr MD MSc, Juju Unavailable [phone] Johnny Blanco Unavailable Unavailable Allergies Allergen (clinical [...] Status W/U Status Risk Notes Problem Sciatica (09657066) Sciatica (724.3) Active confirmed Problem Lumbosacral spondylosis without myelopathy (01353479) Lumbosacral spondylosis without myelopathy (721.3) Active confirmed Problem Muscle pain (59713748) Unspecified myalgia and myositis (729.1) Active confirmed Problem Postherpetic polyneuropathy (60791950) 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) Active confirmed Problem Lumbosacral spondylosis without myelopathy (disorder) (48486852) Spondylosis without myelopathy or radiculopathy, lumbosacral region (M47.817) Active confirmed Problem Lumbosacral spondylosis without myelopathy (25591062) Other spondylosis, lumbar region (M47.896) Active confirmed Problem High risk drug monitoring status (840734779) 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 (Z79.891) Active confirmed Problem Lumbar spondylosis (224850990) Lumbar spondylosis (M47.816) Active confirmed Problem Left shoulder pain (5690973992) Left shoulder pain (M25.512) Active confirmed Problem Spondylosis (1008125) Spondylosis (M47.9) Active confirmed Problem Postherpetic neuralgia (3631881) Postherpetic neuralgia (B02.29) Active confirmed Problem Shoulder pain (54505555) Shoulder pain (M25.519) Active confirmed Plan Of [...] MEDICARE [place]GS [address] [place] [phone] [id number] Alexandrea Renee Self - patient is the insured Medical (General) History Medical History History ICD Code Depression Hypercholesterolemia Arthritis Fibromyalgia OCD peripheral neuropathy Surgical History Surgery Date(Month/Year) L knee replacement 2003 L knee revision 2010 Uterine Ablation Tubal Ligation R knee Meniscus repair 2011
--- OUTSIDE RECORDS SUMMARY | 2025-01-08 15:35 | XMS_ITS | Clinical Summary ---
Author Organization [address] Address [address] [place] [phone] Phone Care Team Providers Care Metal Tile Setter Name Role Phone Travis Holbrook MD Primary Care Provider [phone] Allergies Active Allergy Reactions Criticality Noted Date Comments Adhesive Tape-Silicones Low 02/06/2017 Tape Other Reaction(s): Rash/Dermatitis Chlorthalidone Medium 08/08/2017 Hypokalemia Hydrochlorothiazide High 02/07/2017 Hyponatremia Lisinopril Anaphylaxis,Swell ing High 02/06/2017 anaphylaxis, 2017 [facility] Peitncf-Yov-Fos Reductase Inhibitors 02/06/2017 Statins [Hmg-coa-r Inhibitors] Leg weakness leg pain Sulfa (Sulfonamide Antibiotics) Low 02/06/2017 Sulfa Drugs Other Reaction(s): Rash/Dermatitis Tramadol Low 02/06/2017 Other Reaction(s): Rash/Dermatitis serotonin syndrome , while she was also taking Cymbalta, 2017 Tremor Active Problems Problem Noted Date Diagnosed Date Chronic foot ulcer ([facility] V24, [facility] V28) Chronic patellofemoral pain of left knee 023 Difficult intubation 08/25/2022 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 Gait instability 08/25/2022 Polycythemia vera ([facility] V24, [facility] V28) 03/2022 Post-traumatic osteoarthritis of right knee 03/2022 Proximal muscle weakness 08/25/2022 Right medial tibial plateau fracture, closed, initial encounter 08/25/2022 Urinary incontinence 08/25/2022 Anxiety 08/24/2022 Bronchiectasis ([facility] V24, [facility] V28) 2022 Chronic lower back pain 08/24/2022 COPD (chronic obstructive pu lmonary disease) ([facility], [facility]) 08/24/2022 Depression 08/24/2022 GERD (gastroesophageal reflux disease) Jose's thyroiditis 08/24/2022 HLD (hyperlipidemia) 08/24/2022 Lymphedema 08/24/2022 Polycythemia 08/24/2022 Rheumatoid arthritis ([facility] V24, [facility]) 08/24/2022 Rheumatoid lung ([facility], [facility] V28) 08/24 Vitamin D deficiency 08/24/2022 Lymphedema of left lower extremity 05/13/2020 Overview (04/19/2024): Last Assessment & Plan: Stable at baseline. Takes Lasix as needed for extra leg swelling present. Bronchiectasis without compl ication ([facility], [facility]) 01/10/2019 Overview (04/19/2024): Last Assessment & [...] ng multiple sites with positive rheumatoid factor ([facility] V24, [facility] V28) 10/09/2017 Overview (04/19/2024): Last Assessment & Plan: Stable at baseline, although some increased pain recently in right knee due to insufficiency fracture. F/u with Dr. Hair as scheduled. Rheumatoid lung disease ([facility] V24, [facility] V2 8) 10/09/2017 Overview (04/19/2024): Last Assessment & Plan: Stable, with close monitoring by Dr. Ordonez of pulmonology. Continue current therapies. Centrilobular emphysema ([facility] V24, [facility] V2 8) 08/23/2017 Overview (04/19/2024): Last [...] Site/Laterality Comments OTHER SURGICAL HISTORY N/A PROCEDURE: CA HYSTEROSCOPY ENDOMETRIAL ABLATION TUBAL LIGATION PROCEDURE: HISTORICAL [...] RSV Immunization Adult Patients (1 - Risk 50-74 years 1-dose series) 02/12/2002 COVID-19 Vaccine (3 - Moderna risk series) [...] LAB CHEMISTRY METHOD 07/22/2024 11:[address] [facility] Potassium 3.7 3.5 - 5.5 mmol/L LAB CHEMISTRY METHOD 07/22/2024 11:[address] [facility] Chloride 103 96 - 110 mmol/L LAB CHEMISTRY METHOD 07/22/2024 11:[address] [facility] CO2 32 21 - 32 mmol/L LAB CHEMISTRY METHOD 07/22/2024 11:[address] [facility] Anion Gap 8 3 - 11 LAB CHEMISTRY METHOD 07/22/2024 11:[address] [facility] Glucose 63(L) 70 - 100 mg/dL LAB CHEMISTRY METHOD 07/22/2024 11:[address] [facility] BUN 24 5 - 25 mg/dL LAB CHEMISTRY METHOD 07/22/2024 11:[address] [facility] Creatinine 1.30(H) 0.50 - 1.10 mg/dL LAB CHEMISTRY METHOD 07/22/2024 11:[address] [facility] eGFR 44(L) >=60 mL/min/1. 73m2 LAB CHEMISTRY METHOD 07/22/2024 11:[address] [facility] Comment:Calculation based on the Chronic Kidney Disease Epidemiology Collaboration (CKD-EPI) equation refit without adjustment for race. BUN/Creatinine Ratio 18.5 LAB CHEMISTRY METHOD 07/22/2024 11:[address] [facility] Calcium 8.7 8.5 - 10.5 mg/dL LAB CHEMISTRY METHOD 07/22/2024 11:[address] [facility] Blood Venous blood specimen / Unknown Venipuncture / Unknown 07/22/2024 5:17 AM EDT 07/22/2024 9:39 AM EDT us Travis Holbrook MD LAB BLOOD ORDERABLES Final Resul t [facility] [address] [place] [address], * Lipid panel (07/06/2022) LDL/HDL Ratio 0 [...] Most Recently Relevant to Health Maintenance Insurance [address] [place] [id number] MEDICAID - [place] [employer] MEDICARE Care Teams Metal Tile Setter Relationship Specialty Start Date End Date Travis Holbrook MD [address] [place] [address] [address] [place], [phone] PCP - General Family Medicine 02/28/24
--- OUTSIDE RECORDS SUMMARY | 2025-01-08 15:35 | XMS_ITS | Encounter Summary ---
Author Organization [facility] Address [address] [place] [address] Care Team Providers Care Shotblast Operator Name Role Phone Travis Holbrook MD Primary Care Provider Encounter Details Date Type Department Care Team (Late st Contact Info) Description 03/07/2024 Lab Requisition [facility] - Main Lab 299 [facility] [place] [address] Lavonne Irvin MD [address] [place], [place] [phone] Essential (primary) hypertension; Acute kidney failure, unspecified [...] t [facility] [address] [place] [address], * (ABNORMAL) Complete blood count (03/07/2024 6:00 AM EST) [facility] Signature WBC 4.8 4.8 - 10.8 [...] t [facility] [address] [place] [address], documented in this encounter Visit Diagnoses Diagnosis Essential (primary) hypertension Unspecified essential hypertension Acute kidney failure, unspecified (CMS/HCC V24) Acute kidney failure, unspecified documented in this encounter Care Teams Shotblast Operator Relationship Specialty Start Date End Date Travis Holbrook MD [address] [place] [address] [address] [place], [phone] PCP - General Family Medicine 02/28/24 documented as of this encounter
--- OUTSIDE RECORDS SUMMARY | 2025-01-08 15:35 | XMS_ITS | Encounter Summary ---
Author Organization [facility] Address [address] [place] [address] Care Team Providers Care In Home Sales Representative Name Role Phone Travis Holbrook MD Primary Care Provider [phone] Encounter Details Date Type Department Care Team (Late st Contact Info) Description 03/08/2024 Lab Requisition [facility] - Main Lab 299 [facility] [place] [address] Lavonne Irvin MD [address] [place], [place] [phone] Essential (primary) hypertension; Acute kidney failure, unspecified [...] mmol/L LAB CHEMISTRY METHOD 03/11/2024 2:58 PM [facility] Potassium 4.2 3.5 - 5.5 mmol/L LAB CHEMISTRY METHOD 03/11/2024 2:58 PM [facility] Chloride 105 96 - 110 mmol/L LAB CHEMISTRY METHOD 03/11/2024 2:58 PM [facility] CO2 32 21 - 32 mmol/L LAB CHEMISTRY METHOD 03/11/2024 2:58 PM [facility] Anion Gap 4 3 - 11 LAB CHEMISTRY METHOD 03/11/2024 2:58 PM [facility] Glucose 79 70 - 100 mg/dL LAB CHEMISTRY METHOD 03/11/2024 2:58 PM [facility] BUN 20 5 - 25 mg/dL LAB CHEMISTRY METHOD 03/11/2024 2:58 PM [facility] Creatinine 1.34(H) 0.50 - 1.10 mg/dL LAB CHEMISTRY METHOD 03/11/2024 2:58 PM [facility] eGFR 42(L) >=60 mL/min/1. 73m2 LAB CHEMISTRY METHOD 03/11/2024 2:58 PM [facility] Comment:Calculation based on the Chronic Kidney Disease Epidemiology Collaboration (CKD-EPI) equation refit without adjustment for race. BUN/Creatinine Ratio 14.9 LAB CHEMISTRY METHOD 03/11/2024 2:58 PM [facility] Calcium 9.1 8.5 - 10.5 mg/dL LAB CHEMISTRY METHOD 03/11/2024 2:58 PM [facility] Blood Venous blood specimen / Unknown Venipuncture / Unknown 03/11/2024 7:17 AM EST 03/11/2024 11:24 AM EST us Lavonne Irvin MD LAB BLOOD ORDERABLES Final Resul t [facility] [address] [place] [address], * (ABNORMAL) Complete blood count (03/11/2024 7:17 AM EST) [facility] Signature WBC 4.7(L) 4.8 - 10.8 K/mcL LAB HEMETOLOGY METHOD 03/11/2024 11:48 AM EST [facility] RBC 3.70(L) 3.80 - 4.80 M/mcL LAB HEMETOLOGY METHOD 03/11/2024 11:48 AM [facility] Hemoglobin 11.2(L) 11.5 - 16.0 g/dL LAB HEMETOLOGY METHOD 03/11/2024 11:48 AM [facility] Hematocrit 35.8 35.0 - 47.0 % LAB HEMETOLOGY METHOD 03/11/2024 11:48 AM [facility] MCV 97.0 79.0 - 98.0 FL LAB HEMETOLOGY METHOD 03/11/2024 11:48 AM EST [facility] MCH 30.4 27.0 - 32.0 pcg LAB HEMETOLOGY METHOD 03/11/2024 11:48 AM [facility] MCHC 31.3(L) 32.0 - 37.0 g/dL LAB HEMETOLOGY METHOD 03/11/2024 11:48 AM [facility] RDW 15.5(H) 11.0 - 15.0 % LAB HEMETOLOGY METHOD 03/11/2024 11:48 AM [facility] Platelets 166 130 - 400 K/mcL LAB HEMETOLOGY METHOD 03/11/2024 11:48 AM [facility] MPV 10.6 7.0 - 11.0 FL LAB HEMETOLOGY METHOD 03/11/2024 11:48 AM [facility] NRBC 0.0 <1.0 % LAB HEMETOLOGY METHOD 03/11/2024 11:48 AM EST [facility] NRBC Absolute 0.00 <0.10 K/mcL LAB HEMETOLOGY METHOD 03/11/2024 11:48 AM EST [facility] Blood Venous blood specimen / Unknown Venipuncture / Unknown 03/11/2024 7:17 AM EST 03/11/2024 11:24 AM EST us Lavonne Irvin MD LAB BLOOD ORDERABLES Final Resul t [facility] [address] [place] [address], documented in this encounter Visit Diagnoses Diagnosis Essential (primary) hypertension Unspecified essential hypertension Acute kidney failure, unspecified (CMS/HCC V24) Acute kidney failure, unspecified documented in this encounter Care Teams In Home Sales Representative Relationship Specialty Start Date End Date Travis Holbrook MD [address] [place] [address], [phone] PCP - General Family Medicine 02/28/24 documented as of this encounter
--- OUTSIDE RECORDS SUMMARY | 2025-01-08 15:35 | XMS_ITS | Encounter Summary ---
Author Organization [facility] Address [address] [place] [address] Care Team Providers Care Spectroscopist Name Role Phone Travis Holbrook MD Primary Care Provider [phone] Encounter Details Date Type Department Care Team (Late st Contact Info) Description 07/12/2024 Lab Requisition [facility] - Main Lab 299 [facility] [place] [address] Travis Holbrook MD [address] [place] [address] [address] [facility] [phone] Muscle weakness (generalized); Emphysema, unspecified [...] * Magnesium (07/15/2024 5:26 AM EDT) Pathologist [facility] Magnesium 2.1 1.9 - 2.6 mg/dL LAB CHEMISTRY METHOD 07/15/2024 2:11 PM EDT [facility] Blood Venous blood specimen / Unknown Venipuncture / Unknown 07/15/2024 5:26 AM EDT 07/15/2024 10:23 AM EDT us Travis Holbrook MD LAB BLOOD ORDERABLES Final Resul t [facility] [address] [place] [address], * (ABNORMAL) Basic metabolic panel (07/15/2024 5:26 AM EDT) [facility] Sodium 143 133 - 145 mmol/L LAB CHEMISTRY METHOD 07/15/2024 2:29 PM [facility] Potassium 3.8 3.5 - 5.5 mmol/L LAB CHEMISTRY METHOD 07/15/2024 2:29 PM [facility] Chloride 102 96 - 110 mmol/L LAB CHEMISTRY METHOD 07/15/2024 2:29 PM T [facility] CO2 30 21 - 32 mmol/L LAB CHEMISTRY METHOD 07/15/2024 2:29 PM [facility] Anion Gap 11 3 - 11 LAB CHEMISTRY METHOD 07/15/2024 2:29 PM [facility] Glucose 65(L) 70 - 100 mg/dL LAB CHEMISTRY METHOD 07/15/2024 2:29 PM [facility] BUN 19 5 - 25 mg/dL LAB CHEMISTRY METHOD 07/15/2024 2:29 PM EDT [facility] Creatinine 1.17(H) 0.50 - 1.10 mg/dL LAB CHEMISTRY METHOD 07/15/2024 2:29 PM EDT [facility] eGFR 50(L) >=60 mL/min/1. 73m2 LAB CHEMISTRY METHOD 07/15/2024 2:29 PM EDT [facility] Comment:Calculation based on the Chronic Kidney Disease Epidemiology Collaboration (CKD-EPI) equation refit without adjustment for race. BUN/Creatinine Ratio 16.2 LAB CHEMISTRY METHOD 07/15/2024 2:29 PM EDT [facility] Calcium 9.3 8.5 - 10.5 mg/dL LAB CHEMISTRY METHOD 07/15/2024 2:29 PM EDT [facility] Blood Venous blood specimen / Unknown Venipuncture / Unknown 07/15/2024 5:26 AM EDT 07/15/2024 10:23 AM EDT us Travis Holbrook MD LAB BLOOD ORDERABLES Final Resul t [facility] [address] [place] [address], * (ABNORMAL) Complete blood count (07/15/2024 5:26 AM EDT) WBC 5.0 4.8 - 10.8 K/mcL LAB HEMETOLOGY METHOD 07/15/2024 11:34 AM EDT [facility] RBC 3.90 3.80 - 4.80 M/mcL LAB HEMETOLOGY METHOD 07/15/2024 11:34 AM EDT [facility] Hemoglobin 11.6 11.5 - 16.0 g/dL LAB HEMETOLOGY METHOD 07/15/2024 11:34 AM EDT [facility] Hematocrit 37.1 35.0 - 47.0 % LAB HEMETOLOGY METHOD 07/15/2024 11:34 AM EDT [facility] MCV 96.1 79.0 - 98.0 FL LAB HEMETOLOGY METHOD 07/15/2024 11:34 AM EDT [facility] MCH 30.1 27.0 - 32.0 pcg LAB HEMETOLOGY METHOD 07/15/2024 11:34 AM EDT [facility] MCHC 31.3(L) 32.0 - 37.0 g/dL LAB HEMETOLOGY METHOD 07/15/2024 11:34 AM EDT [facility] RDW 15.7(H) 11.0 - 15.0 % LAB HEMETOLOGY METHOD 07/15/2024 11:34 AM T [facility] Platelets 204 130 - 400 K/mcL LAB HEMETOLOGY METHOD 07/15/2024 11:34 AM EDT [facility] MPV 11.0 7.0 - 11.0 FL LAB HEMETOLOGY METHOD 07/15/2024 11:34 AM EDT [facility] NRBC 0.0 <1.0 % LAB HEMETOLOGY METHOD 07/15/2024 11:34 AM T [facility] NRBC Absolute 0.00 <0.10 K/mcL LAB HEMETOLOGY METHOD 07/15/2024 11:34 AM [facility] Blood Venous blood specimen / Unknown Venipuncture / Unknown 07/15/2024 5:26 AM EDT 07/15/2024 10:23 AM EDT us Travis Holbrook MD LAB BLOOD ORDERABLES Final Resul t [facility] [address] [place] [address], documented in this encounter Visit Diagnoses Diagnosis Muscle weakness (generalized) Emphysema, unspecified (CMS/HCC V24, CMS/HCC V28) Hypokalemia Hypopotassemia documented in this encounter Care Teams Spectroscopist Relationship Specialty Start Date End Date Travis Holbrook MD [address] [place] [address], [phone] PCP - General Family Medicine 02/28/24 documented as of this encounter
--- OUTSIDE RECORDS SUMMARY | 2025-01-08 15:35 | XMS_ITS | Encounter Summary ---
Author Organization [facility] Address [address] [place] [address] Care Team Providers Care Ticket Counter Name Role Phone Travis Holbrook MD Primary Care Provider [phone] Encounter Details Date Type Department Care Team (Late st Contact Info) Description 07/03/2024 Lab Requisition [facility] - Main Lab 299 [facility] [place] [address] Travis Holbrook MD [address] [place] [address] 204 [facility] [phone] Other buttermaker (current) drug therapy Social History Tobacco Use [...] PANEL Routine 07/03/2024 11:40 AM EDT Other nursing home (current) drug therapy documented in this encounter Results * (ABNORMAL) Comprehensive metabolic panel (07/03/2024 11:40 AM EDT) Sodium 134 133 - 145 mmol/L LAB CHEMISTRY METHOD 07/03/2024 2:18 PM EDT [facility] Potassium 4.7 3.5 - 5.5 mmol/L LAB CHEMISTRY METHOD 07/03/2024 2:18 PM [facility] Chloride 99 96 - 110 mmol/L LAB CHEMISTRY METHOD 07/03/2024 2:18 PM [facility] CO2 28 21 - 32 mmol/L LAB CHEMISTRY METHOD 07/03/2024 2:18 PM [facility] Anion Gap 7 3 - 11 LAB CHEMISTRY METHOD 07/03/2024 2:18 PM [facility] Glucose 79 70 - 100 mg/dL LAB CHEMISTRY METHOD 07/03/2024 2:18 PM [facility] BUN 19 5 - 25 mg/dL LAB CHEMISTRY METHOD 07/03/2024 2:18 PM [facility] Creatinine 1.09 0.50 - 1.10 mg/dL LAB CHEMISTRY METHOD 07/03/2024 2:18 PM [facility] eGFR 54(L) >=60 mL/min/1. 73m2 LAB CHEMISTRY METHOD 07/03/2024 2:18 PM [facility] Comment:Calculation based on the Chronic Kidney Disease Epidemiology Collaboration (CKD-EPI) equation refit without adjustment for race. BUN/Creatinine Ratio 17.4 LAB CHEMISTRY METHOD 07/03/2024 2:18 PM [facility] Calcium 9.2 8.5 - 10.5 mg/dL LAB CHEMISTRY METHOD 07/03/2024 2:18 PM [facility] AST (SGOT) 23 10 - 42 unit/L LAB CHEMISTRY METHOD 07/03/2024 2:18 PM [facility] ALT (SGPT) 33 10 - 60 unit/L LAB CHEMISTRY METHOD 07/03/2024 2:18 PM [facility] Alkaline Phosphatase 129(H) 42 - 121 unit/L LAB CHEMISTRY METHOD 07/03/2024 2:18 PM [facility] Total Protein 6.6 6.0 - 8.0 g/dL LAB CHEMISTRY METHOD 07/03/2024 2:18 PM EDT [facility] Albumin 2.6(L) 3.2 - 5.0 g/dL LAB CHEMISTRY METHOD 07/03/2024 2:18 PM EDT [facility] Total Bilirubin 0.4 0.0 - 1.4 mg/dL LAB CHEMISTRY METHOD 07/03/2024 2:18 PM EDT [facility] Blood Venous blood specimen / Unknown 07/03/2024 11:40 AM EDT 07/03/2024 1:16 PM EDT us Travis Holbrook MD LAB BLOOD ORDERABLES Final Resul t [facility] [address] [place] [address], documented in this encounter Visit Diagnoses Diagnosis Other buttermaker (current) drug therapy documented in this encounter Care Teams Ticket Counter Relationship Specialty Start Date End Date Travis Holbrook MD [address] [place] [address] [address] [place], [phone] PCP - General Family Medicine 02/28/24 documented as of this encounter
== END 2025-01-08 13:25 | disposition home or self-care (01) ==
PROVIDERS: PCP Internal Medicine; Visit Provider Orthopaedic Surgery
DX: M25.562 Pain in left knee (principal)
CPT/HCPCS: 99203; G2211

== ENCOUNTER → 2025-01-08 12:44 | Outpatient (BNV) | payer MEDICARE, MEDICAID, SELFPAY | PROVIDERS: Visit Provider Radiology Diagnostic Ultrasound | DX: M97.12XA Periprosthetic fracture around internal prosthetic left knee joint, initial encounter (principal) | CPT/HCPCS: 73562 ==

== ENCOUNTER 2025-01-13 22:27 | Emergency (ER) | payer MEDICARE, MEDICAID, SELFPAY ==
[2025-01-13 22:33] VITALS: BP 210/104; PULSE 68; O2SAT 97
[2025-01-13 22:35] VITALS: BP 213/120; PULSE 72; RESP 18; TEMP 36.9; O2SAT 96
[2025-01-13 22:38] VITALS: BP 186/109
[2025-01-13 23:07] VITALS: BP 186/109; PULSE 64; RESP 18; O2SAT 96; BMI 31.6
--- NOTE | 2025-01-13 23:12 | ED_ITS ---
HPI - Extremity Injury (Lower) General Chief Complaint: Extremity Injury, Lower Stated Complaint: bi lat foot pain Time Seen by Provider: 01/13/25 22:51 History of Present Illness HPI Narrative: Patient is a 74-year-old female with a history of neuropathic pain to bilateral lower extremity also a history of rheumatoid arthritis. Patient baseline is on oxycodone 20 mg 4 times a day. In addition patient is taking Lyrica 200 mg twice a day. Patient accidentally lost her doses of Lyrica since Monday. Complaining of both feet burning. Patient's pain is very similar to previous neuropathic pain. No fever no chills. No chest pain no shortness of breath no leg swelling that is new. The pain is bilateral. No coughing or congestion or upper respiratory symptoms no abdominal pain no incontinence. Patient is from home. There is no trauma. Baseline does not ambulate. Related Data Home Medications ?Medication ?Instructions ?Recorded ?Confirmed bupropion HCl 300 mg 24 hr tablet, 300 mg PO DAILY@090 0 08/23/21 01/08/25 extended release levothyroxine 50 mcg tablet 50 mcg PO DAILY@0600 08/2301/08/25 methotrexate sodium 2.5 mg tablet 25 mg PO TU 08/23/21 01/08/25 omeprazole 40 mg capsule,delayed 40 mg PO DAILY@0630 0 08/23/21 01/08/25 release prednisone 1 mg tablet 4 mg PO DAILY 08/23/2101/08 pregabalin 200 mg capsule 200 mg PO BID 01/07/2301/08 folic acid 1 mg tablet 2 mg PO DAILY 10/13/2301/08 bupropion HCl 150 mg 24 hr tablet, 150 mg PO DAILY@090 0 11/25/23 01/08/25 extended release acetaminophen 325 mg tablet 650 mg PO Q4H PRN Moderate Pain 03/04/24 01/08/25 (Tylenol) (Scale Score 5-6) ibuprofen 200 mg tablet 600 mg PO Q6H PRN Pain 05/0301/08/25 melatonin 10 mg tablet 10 mg PO BEDTIME PRN Sleep 0 05/03/24 01/08/25 multivitamin 1 tab PO DAILY 05/03/2412/25 atenolol 25 mg tablet 50 mg PO DAILY 08/29/2412/25 fluticasone propionate 50 1 spray intranasal BID PRN A llergy 08/29/24 01/08/25 mcg/actuation nasal Symptoms spray,suspension biotin 1 mg tablet 1 mg PO DAILY 10/07/2401/08 furosemide 40 mg tablet 40 mg PO DAILY 10/07/2412/25 Previous Rx's ?Medication ?Instructions ?Recorded ondansetron 4 mg disintegrating 4 mg PO Q8H PRN nausea and 08/02/23 tablet vomiting #10 tabs doxazosin 2 mg tablet 2 mg PO BEDTIME #30 tabs oxycodone 20 mg tablet 20 mg PO Q4H PRN pain (scale score 02/27/24 7-10) #20 tabs methenamine hippurate 1 gram tablet 1 g PO DAILY 90 da ys #90 tabs 10/08/24 nitrofurantoin 100 mg PO BID 14 days #28 ca ps 12/31/24 monohydrate/macrocrystals 100 mg capsule (Macrobid) pregabalin 200 mg capsule (Lyrica) 200 mg PO BID 1 day #2 caps 01/14/25 Allergies Allergy/AdvReac Type Severity Reaction Status Date / Time lisinopril (LISINOPRIL) Allergy Severe ANAPHYLAXIS Verified 01/13/25 23:10 Sulfa (Sulfonamide Allergy Intermediate RASH Verified 01/13/25 23:10 Antibiotics) (SULFA (SULFONAMIDE ANTIBIOTICS)) tramadol (TRAMADOL) Allergy Intermediate RASH Verified 01/13/25 23:10 Ssemolz-PZR-CpY Reductase Allergy Rash Verified 01/13/25 23:10 Inhibitor (Uivycpe-Egw-Vrp Reductase Inhibitor) hydrochlorothiazide (HCTZ) AdvReac Unknown ABNORMAL Verified 01/13/25 23:10 LABS? Review of Systems 2 Review of Systems: Positive pain to bilateral legs Yes all other systems are reviewed and are negative [facility] Past Medical History Attestation statement: The following information was validated with the patient. Medical History Hypertension History of ESBL E. coli infection Oxygen dependent Oxygen dependent Sepsis Bacteriuria Urinary tract infection due to extended-spectrum beta lactamase (ESBL) producing Escherichia coli History of ESBL E. coli infection Osteomyelitis COPD (chronic obstructive pulmonary disease) Rheumatoid lung Hypothyroidism Congestive heart failure Fibromyalgia HTN (hypertension) Depression Rheumatoid arthritis Surgical History Hx of prior ablation treatment Knee joint replacement status Family History Family History Father No problems noted. Other Heart disease Social History Social History Household Members: None Household Members Other:: 0 Housing: Apartment Do you presently have visiting nurse or other home services: Yes Alcohol intake: never Comment: bedside commode Patient Tobacco Use Status: Former Tobacco user Tobacco use type: Cigarette Smoked in Last 30 Days: No e-Cigarette/Vaping Use: Never Used Second Hand Smoke Exposure: No Advance Directives: Yes Advance Directives on File: Yes Advance Directives Date on File: 10/19/23 Do you have a plan to hurt others: No Plan service: No Physical Exam 2 Exam: Exam: Appearance: Alert. Oriented X3. No acute distress. Eyes: Pupils equal, round and reactive to light. ENT: Pharynx normal. Neck: Normal inspection. Neck supple. No lymph nodes noted. No crepitus CVS: Normal heart rate and rhythm. Pulses normal. Normal S1 and S2 Respiratory: No respiratory distress. Breath sounds normal. No Wheezing. No rales Abdomen: Soft and nontender. No rigidity. No distention. good BS x4 Skin: Skin warm and dry. Normal skin color. Normal skin turgor. Extremities: No lower extremity edema. Neurovascular intact to all extremities. No deformities noted to bilateral foot. There is good distal pulses sensation intact. The skin is intact. Capillary refills less than 2 seconds. There is mild edema noted bilaterally. Neuro: Oriented X 3. No motor deficit. No sensory deficit. Moving all extermities. No slurred speech Vital Signs: Vital Signs: Last Vital Signs Temp 98.3 F 01/14/25 00:02 Pulse 65 01/14/25 00:02 Resp 18 01/14/25 00:02 BP 195/95 H 01/14/25 00:02 Pulse Ox 96 01/14/25 00:02 O2 Del Method Room Air 01/14/25 00:02 BMI result Body Mass Index 31.6 Medications Administered Discontinued Medications Generic Name Dose Route Start Last Admin Trade Name Freq PRN Reason Stop Dose Admin Oxycodone HCl 20 mg 01/13/25 22:56 01/13/25 23:37 Oxycodone Hcl Immed Release 5 Mg Tablet PO 01/13/25 22:57 20 mg ONCE ONE Administration Pregabalin 200 mg 01/13/25 22:56 01/13/25 23:37 Pregabalin 200 Mg Capsule PO 01/13/25 22:57 200 mg ONCE ONE Administration Medical Decision Making Medical Decision Making [facility] Narrative: History of neuropathic pain to bilateral lower extremity. Patient did not take her Lyrica for 2 days. Now the pain is intense. She still has her oxycodone at home. Patient has discussed this with her primary physician. Primary physician wrote a new prescription for her however it does not take effect until tomorrow. Will give patient a dose of Lyrica tonight. Right patient a script for 1 day supply of Lyrica for tomorrow. Patient then have enough of Lyrica on an outpatient basis. She is currently in stable condition. Patient's electrolytes are normal. Well-appearing. Given 1st dose of medication. Will discharge patient home. A day worth of Lyrica was prescribed. Patient in no distress. Differential Diagnosis Differential Diagnoses: The differential diagnosis associated with the presentation includes Neuropathic pain Lab Data [facility] Lab Attestation statement: I reviewed the patient's lab results. 01/13/25 23:43 01/13/25 23:43 Labs: Lab Results 01/13/25 Range/Units 23:43 WBC 9.3 (4.8-10.8) X10*3/uL RBC 4.82 D (4.20-5.50) X10*6/uL Hgb 14.2 D (12.0-16.0) g/dl Hct 43.6 D (37.0-47.0) % MCV 90.5 (80.0-98.0) fL MCH 29.5 (27.0-33.0) pg MCHC 32.6 (31.0-35.0) g/dl RDW 14.7 (11.0-16.0) % Plt Count 166 (160-400) X10*3/uL MPV 9.9 (9.4-12.3) fL Immature Gran % (Auto) 1.3 H (0.0-0.4) % Neut % (Auto) 68.6 (45-73) % Lymph % (Auto) 20.1 (20-40) % [place] % (Auto) 7.7 (2-11) % Eos % (Auto) 1.8 (0-4) % Baso % (Auto) 0.5 (0-2) % Lymph # (Auto) 1.9 (1.2-4.9) X10*3/uL [place] # (Auto) 0.7 (0.1-1.2) X10*3/uL Eos # (Auto) 0.2 (0.0-0.4) X10*3/uL Baso # (Auto) 0.1 (0.0-0.2) X10*3/uL Abs Immat Gran (auto) 0.12 H (0.00-0.03) X10*3/uL Absolute Neuts (auto) 6.4 (2.0-8.3) x10*3/uL Absolute Nucleated RBC 0.000 (0.0-0.012) X10*3/uL Nucleated RBC % (auto) 0.0 (0.0-0.2) /100WBC Sodium 141 (135-145) mmol/L Potassium 4.5 D (3.3-5.1) mmol/L Chloride 108 (96-108) mmol/L Carbon Dioxide 22 (22-29) mmol/L Anion Gap 16 (12-20) BUN 23 H (9-16) mg/dL Creatinine 1.26 (0.5-1.4) mg/dL Estim Creat Clear Calc 43.7 Estimated GFR 42 Random Glucose 113 (60-115) mg/dL Calcium 9.0 (8.4-10.2) mg/dL External Record Review External record reviewed: Inpatient record Chronic Conditions Neuropathic pain, arthritis Social Determinants Patient?s care significantly limited by Social Determinants of Health including: Problems related to primary support group Discharge Plan Discharge Clinical Impression: Neuropathic pain Patient Disposition: Home, Self-Care Instructions: Paresthesia (ED) Prescriptions: New pregabalin [Lyrica] 200 mg capsule 200 mg PO BID 1 Days Qty: 2 0RF No Action omeprazole 40 mg capsule,delayed release(DR/EC) 40 mg PO DAILY@0630 methotrexate sodium 2.5 mg tablet 25 mg PO TU prednisone 1 mg tablet 4 mg PO DAILY levothyroxine 50 mcg tablet 50 mcg PO DAILY@0600 bupropion HCl 300 mg tablet extended release 24 hr 300 mg PO DAILY@0900 ondansetron 4 mg tablet,disintegrating 4 mg PO Q8H PRN (Reason: nausea and vomiting) Qty: 10 0RF folic acid 1 mg tablet 2 mg PO DAILY doxazosin 2 mg Tablet 2 mg PO BEDTIME Qty: 30 0RF Protocol: Hold for SBP< HOLD for SBP < : 90 bupropion HCl 150 mg tablet extended release 24 hr 150 mg PO DAILY@0900 multivitamin Tablet 1 tab PO DAILY ibuprofen 200 mg Tablet 600 mg PO Q6H PRN (Reason: Pain) melatonin 10 mg Tablet 10 mg PO BEDTIME PRN (Reason: Sleep) nitrofurantoin monohyd/m-cryst [Macrobid] 100 mg capsule 100 mg PO BID 14 Days Qty: 28 0RF Rx Instructions: must administer with a meal/food pregabalin 200 mg capsule 200 mg PO BID oxycodone 20 mg tablet 20 mg PO Q4H PRN (Reason: pain (scale score 7-10)) Qty: 20 0RF acetaminophen [Tylenol] 325 mg Tablet 650 mg PO Q4H PRN (Reason: Moderate Pain (Scale Score 5-6)) fluticasone propionate 50 mcg/actuation [place],Suspension 1 spray INTRANASAL BID PRN (Reason: Allergy Symptoms) Rx Instructions: administer into each nostril atenolol 25 mg tablet 50 mg PO DAILY Protocol: Hold for SBP/HR < HOLD for SBP < : 90 HOLD for HR < : 60 furosemide 40 mg tablet 40 mg PO DAILY biotin 1 mg Tablet 1 mg PO DAILY methenamine hippurate 1 gram tablet 1 g PO DAILY 90 Days Qty: 90 0RF Print Language: Hebrew
[2025-01-13] MEDS: oxyCODONE HCl Immed Release 5 MG TABLET 20 MG PO (23:37)
[2025-01-13 23:48] LABS: MANUAL DIFF FLAG NO
[2025-01-13 23:49] LABS: Hematocrit 43.6 % (37.0-47.0); Hemoglobin 14.2 g/dl (12.0-16.0); Imm Gran Abs Auto 0.12 X10*3/uL (0.00-0.03); Imm Gran Pct Auto 1.3 % (0.0-0.4); Lymphocytes Absolute Auto 1.9 X10*3/uL (1.2-4.9); Mean Corpuscular HGB Conc 32.6 g/dl (31.0-35.0); Mean Corpuscular Hemoglobin 29.5 pg (27.0-33.0); Mean Corpuscular Volume 90.5 fL (80.0-98.0); NRBC Abs Auto 0.000 X10*3/uL (0.0-0.012); NRBC Pct Auto 0.0 /100WBC (0.0-0.2); Platelet Count 166 X10*3/uL (160-400); Red Blood Count 4.82 X10*6/uL (4.20-5.50); White Blood Count 9.3 X10*3/uL (4.8-10.8)
[2025-01-14 00:02] VITALS: BP 195/95; PULSE 65; RESP 18; TEMP 36.8; O2SAT 96
[2025-01-14 00:02] LABS: Anion Gap 16 (12-20); Blood Urea Nitrogen 23 mg/dL (9-16); Calcium 9.0 mg/dL (8.4-10.2); Carbon Dioxide 22 mmol/L (22-29); Chloride 108 mmol/L (96-108); Creatinine Clr Calc Pharmacy 43.7; Estimated Glomerular Filt Rate 42; Potassium 4.5 mmol/L (3.3-5.1); Sodium 141 mmol/L (135-145)
--- OUTSIDE RECORDS SUMMARY | 2025-01-14 00:15 | XMS_ITS | Patient Health Record ---
Author Organization [facility] Address [address] [facility] [address] [place] [address] Care Team Providers Care Autism Motor Specialist Name Role Phone Carlos Alberto Murray Primary Care Provider Eduardo Carr MD MSc, Juju Unavailable [phone] Johnny Blanco Unavailable Unavailable Allergies Allergen (clinical [...] Status W/U Status Risk Notes Problem Sciatica (25739836) Sciatica (724.3) Active confirmed Problem Lumbosacral spondylosis without myelopathy (87423142) Lumbosacral spondylosis without myelopathy (721.3) Active confirmed Problem Muscle pain (99447070) Unspecified myalgia and myositis (729.1) Active confirmed Problem Postherpetic polyneuropathy (22090504) 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) Active confirmed Problem Lumbosacral spondylosis without myelopathy (disorder) (08645115) Spondylosis without myelopathy or radiculopathy, lumbosacral region (M47.817) Active confirmed Problem Lumbosacral spondylosis without myelopathy (14599391) Other spondylosis, lumbar region (M47.896) Active confirmed Problem High risk drug monitoring status (301984439) salvage determiner current use of opiate analgesic (Z79.891) Active confirmed Problem Lumbar spondylosis (238535171) Lumbar spondylosis (M47.816) Active confirmed Problem Left shoulder pain (8775424090) Left shoulder pain (M25.512) Active confirmed Problem Spondylosis (1551738) Spondylosis (M47.9) Active confirmed Problem Postherpetic neuralgia (5311990) Postherpetic neuralgia (B02.29) Active confirmed Problem Shoulder pain (95835575) Shoulder pain (M25.519) Active confirmed Plan Of [...] MEDICARE NGS [address] [place] [phone] [id number] Alexandrea Renee Self - patient is the insured Medical (General) History Medical History History ICD Code Depression Hypercholesterolemia Arthritis Fibromyalgia OCD peripheral neuropathy Surgical History Surgery Date(Month/Year) L knee replacement 2003 L knee revision 2010 Uterine Ablation Tubal Ligation R knee Meniscus repair 2011
--- OUTSIDE RECORDS SUMMARY | 2025-01-14 00:15 | XMS_ITS | Patient Health Record ---
Author Organization [facility] Address [address] [place] [address] Care Team Providers Care Ticket Printer Name Role Phone Namita Acosta NP Primary Care Provider Jose Pizarro Unavailable [phone] Allergies Allergen (clinical drug ingredient) Drug/Non Drug Allergy documented on EMR Reaction Allergy Type Onset Date Status Adhesive rash Allergy Active Fentanyl and Related rash Drug Allergy Active hydrocortisone Hydrocortisone rash Drug Allergy Active lisinopril Lisinopril anaphylaxis Drug Allergy Act shawanda Substance with 6-bygvckw-6-methylg lutaryl-coenzyme A reductase inhibitor mechanism of action [...] day(s) Active Vitamin D (Ergocalciferol) 1.25 MG (36939 UT) TAKE 1 CAPSULE BY MOUTH 1 [...] atherosclerosis of arteries of lower limbs (disorder) (61408442655579281 ) Atherosclerosis of [place] artery of both lower extremities, with unspecified presence of clinical manifestation (I70.203) Active confirmed Problem Rheumatoid arthritis (06216780) Rheumatoid arthritis involving both feet, unspecified whether rheumatoid factor present (M06.9) Active confirmed Plan Of Treatment Pending Test Test Name Order Date [id number] SKIN/TISSUE 12/17/2021 [id number] SKIN/TISSUE 01/21/2022 [id number] SKIN/TISSUE 05/25/2022 48232 I&D ABSCESS- SIMPLE,SINGLE 023 55987 I&D ABSCESS- SIMPLE,SINGLE 022 Insurance Providers Payer Name Payer Address Payer Phone Subscriber Number Group Number Insured Name Patient Relationship to Insured Coverage Start Date Coverage End Date [employer] Medicare [id number] [address] [address] [place] [address] [id number] Alexandrea Renee Self - patient is the [...] ribs- CT -sameday went back 09/12/21 09/10/21 [facility] [place] rheumatoid lung-overnight 07/2021
[2025-01-14 01:00] VITALS: BP 195/95; PULSE 65; RESP 18; TEMP 36.8; O2SAT 96
== END 2025-01-14 01:02 | disposition home or self-care (01) ==
PROVIDERS: Emergency Provider Emergency Medicine Emergency Medical Services
DX: G61.89 Other inflammatory polyneuropathies (principal); M79.671 Pain in right foot; M79.672 Pain in left foot; Z87.891 Personal history of nicotine dependence; G62.9 Polyneuropathy, unspecified; Z79.899 Other long term (current) drug therapy
CPT/HCPCS: 36415; 80048; 85025; 99283; 99284

== ENCOUNTER 2025-01-22 12:28 | Inpatient (IN) | payer MEDICARE, MEDICAID, SELFPAY ==
--- NOTE | ~2025-01-22 | CT_ITS ---
EXAMINATION: CT HEAD WITHOUT CONTRAST CLINICAL INFORMATION: Confusion COMPARISON: 12/27/2024 TECHNIQUE: Contiguous axial imaging was performed from the skull base to vertex without intravenous administration of contrast. This CT examination was performed using dose optimization techniques as appropriate, variously including the following: *Automated exposure control *Adjustment of mA and/or kV according to patient size (this includes techniques or standardized protocols for targeted exams where dose is matched to indication/reason for exam; i.e. extremities or head) *Use of iterative reconstruction technique FINDINGS: Again seen is mild generalized atrophy and periventricular white matter hypodensities similar to the prior examination. There is no acute ischemic change. There is no intracranial hemorrhage. There is no mass-effect or midline shift. Basal cisterns and ventricles are within normal limits for age/cerebral volume. Orbits are symmetrical and unremarkable. Again noted is partial opacification of ethmoid air cells. There are no bony abnormalities. CT/CT head/brain wo IV con IMPRESSION: No acute intracranial abnormality. Stable chronic changes. Mild chronic ethmoid sinus disease. Electronically signed by: Devon Osorio MD 01/22/2025 02:20 PM EDT
--- NOTE | ~2025-01-22 | XR_ITS ---
EXAMINATION: XR ABDOMEN KUB CLINICAL INDICATION: ?constipation COMPARISON: November 19, 2024 CT data examination clerk TECHNIQUE: AP view of the abdomen. FINDINGS: Moderate gas is noted in the stomach:. However, there is minimal stool. There is degenerative sclerosis along the pubic symphysis joint. XR/XR KUB IMPRESSION: Unremarkable examination. Electronically signed by: Devon Osorio MD 01/22/2025 04:36 PM EDT
[2025-01-22 12:34] VITALS: BP 160/110; PULSE 80; O2SAT 94
[2025-01-22 12:41] VITALS: BP 197/80; PULSE 79; RESP 16; TEMP 37.1; O2SAT 96; BMI 37.3
--- NOTE | 2025-01-22 13:20 | ED.GENADULT ---
HPI - General Adult General Chief complaint: Altered Mental Status Stated complaint: confusion, ?UTI Time Seen by Provider: 01/22/25 13:07 Source: patient, family (daughter) and EMS Mode of arrival: EMS Limitations: altered mental status History of Present Illness ED Provider: LATOSHA RUBIO PA-C HPI narrative: 74 year old female presents to the ED today via EMS on oxycodone for chronic pain, fibromyalgia, RA, COPD, osteomyelitis, HTN, metabolic encephalopathy, recurrent UTIs, hypothyroidism, CHF presents to the ED today via EMS with confusion x24 hours. I spoke with patient's daughter/HCP, Susy, who states that she was on the phone with the patient yesterday and noticed that the patient was confused, repeating questions. Patient had called her daughter numerous times however upon speaking with the daughter, could not remember why she was calling her. Her daughter states that these symptoms are similar to multiple admissions over the last few months with altered mentation secondary to urinary tract infections. She urged patient to call EMS. Patient was agreeable today. Daughter also reports patient lives alone and administers her own home meds. She takes 20 mg TID for chronic pain. She does not believe the patient is on a bowel regimen. She is unsure if the patient administers her home meds correctly. Patient admits she feels confused however cannot elaborate. Denies any symptoms at present. Denies fever, chills, headache, N/V/D, abdominal pain, dysuria, hematuria. Related Data Home Medications ?Medication ?Instructions ?Recorded ?Confirmed bupropion HCl 300 mg 24 hr tablet, 300 mg PO DAILY@0908/23/21 01/08/25 extended release levothyroxine 50 mcg tablet 50 mcg PO DAILY@0608/23/21 01/08/25 methotrexate sodium 2.5 mg tablet 25 mg PO TU 08/23/21 01/08/25 omeprazole 40 mg capsule,delayed 40 mg PO DAILY@62908/23/21 01/08/25 release prednisone 1 mg tablet 4 mg PO DAILY 08/23/21 01/08/25 pregabalin 200 mg capsule 200 mg PO BID 01/07/23 01/08/25 folic acid 1 mg tablet 2 mg PO DAILY 10/13/23 01/08/25 bupropion HCl 150 mg 24 hr tablet, 150 mg PO DAILY@0900 11/25/23 01/08/25 extended release acetaminophen 325 mg tablet 650 mg PO Q4H PRN Moderate Pain 03/04/24 01/08/25 (Tylenol) (Scale Score 5-6) ibuprofen 200 mg tablet 600 mg PO Q6H PRN Pain 05/03/24 01/08/25 melatonin 10 mg tablet 10 mg PO BEDTIME PRN Sleep 05/03/24 01/08/25 multivitamin 1 tab PO DAILY 05/03/24 01/08/25 atenolol 25 mg tablet 50 mg PO DAILY 08/29/24 01/08/25 fluticasone propionate 50 1 spray intranasal BID PRN Allergy 08/29/24 01/08/25 mcg/actuation nasal Symptoms spray,suspension biotin 1 mg tablet 1 mg PO DAILY 10/07/24 01/08/25 furosemide 40 mg tablet 40 mg PO DAILY 10/07/24 01/08/25 Previous Rx's ?Medication ?Instructions ?Recorded ondansetron 4 mg disintegrating 4 mg PO Q8H PRN nausea and 08/02/23 tablet vomiting #10 tabs doxazosin 2 mg tablet 2 mg PO BEDTIME #30 tabs 10/17/23 oxycodone 20 mg tablet 20 mg PO Q4H PRN pain (scale score 02/27/24 7-10) #20 tabs methenamine hippurate 1 gram tablet 1 g PO DAILY 90 days #90 tabs 10/08/24 nitrofurantoin 100 mg PO BID 14 days #28 caps 12/31/24 monohydrate/macrocrystals 100 mg capsule (Macrobid) pregabalin 200 mg capsule (Lyrica) 200 mg PO BID 1 day #2 caps 01/14/25 Allergies Allergy/AdvReac Type Severity Reaction Status Date / Time lisinopril (LISINOPRIL) Allergy Severe ANAPHYLAXIS Verified 01/22/25 12:42 Sulfa (Sulfonamide Allergy Intermediate RASH Verified 01/22/25 12:42 Antibiotics) (SULFA (SULFONAMIDE ANTIBIOTICS)) tramadol (TRAMADOL) Allergy Intermediate RASH Verified 01/22/25 12:42 Puafwjv-CSF-QoB Reductase Allergy Rash Verified 01/22/25 12:42 Inhibitor (Lzoymsm-Ezk-Lei Reductase Inhibitor) hydrochlorothiazide (HCTZ) AdvReac Unknown ABNORMAL Verified 01/22/25 12:42 LABS? Review of Systems Review of Systems: Yes all other systems are reviewed and are negative [facility] Past Medical History Attestation statement: The following information was validated with the patient. Source: old records reviewed, obtained from family and nursing notes reviewed Medical History Hypertension History of ESBL E. coli infection Oxygen dependent Oxygen dependent Sepsis Bacteriuria Urinary tract infection due to extended-spectrum beta lactamase (ESBL) producing Escherichia coli History of ESBL E. coli infection Osteomyelitis COPD (chronic obstructive pulmonary disease) Rheumatoid lung Hypothyroidism Congestive heart failure Fibromyalgia HTN (hypertension) Depression Rheumatoid arthritis Surgical History Hx of prior ablation treatment Knee joint replacement status Family History Family History Father No problems noted. Other Heart disease Social History Social History Household Members: None Household Members Other:: 0 Housing: Apartment Do you presently have visiting nurse or other home services: Yes Alcohol intake: never Comment: bedside commode Patient Tobacco Use Status: Former Tobacco user Tobacco use type: Cigarette e-Cigarette/Vaping Use: Never Used Second Hand Smoke Exposure: No Advance Directives: Yes Advance Directives on File: Yes Advance Directives Date on File: 10/19/23 service: No Physical Exam ED Vital Signs: Vital Signs - 24 hr 01/22/25 12:41 01/22/25 16:07 01/22/25 16:13 Temperature 98.7 F 99.1 F 99.1 F Pulse Rate 79 77 Respiratory Rate 16 18 Blood Pressure 197/80 H 169/70 H Pulse Oximetry 96 98 Oxygen Delivery Method Room Air Room Air BMI result Body Mass Index 37.3 Patient is hypertensive, afebrile General: no acute distress Skin: Warm, dry, intact. No rashes or lesions. Head: Normocephalic, atraumatic. EENT: Hearing is intact b/l. Conjunctiva clear. Sclera is anicteric. PERRLA. EOM intact. Moist mucous membranes.? Cardiac: Chest wall symmetric. RRR Lungs: Normal respiratory effort without accessory muscle use. CTA bilaterally Abdomen: soft, non-tender, non-distended. No rebound tenderness or guarding. Positive BS x4. Ext: Upper and lower extremities atraumatic, without tenderness, deformity, swelling or erythema Neuro: alert, oriented to person, place. Not year. no focal neuro symptoms. Psych: Appropriate mood and affect. Responds appropriately to questions. Course Course Course Narrative: CBC without leukocytosis or left shift. No anemia. H&H stable. Chemistry without acute electrolyte abnormality requiring intervention. BUN 26, creatinine 0.89. No CASSANDRA. Ammonia WNL. tsh wnl. Urine infected. lactic wnl. CT head unremarkable. KUB without obstruction. > patient treated with IV Tylenol, ceftriaxone and IV fluids > concern for metabolic encephalopathy, UTI. Spoke with hospitalist who has accepted patient admission to medicine Medications Administered Discontinued Medications Generic Name Dose Route Start Last Admin Trade Name Freq PRN Reason Stop Dose Admin Sodium Chloride 1,000 mls @ 999 mls/hr 01/22/25 15:15 01/22/25 16:14 Ns IV 01/22/25 16:15 500 mls/hr .Q1H1M EUGENIO Infusion Ceftriaxone Sodium 1 gm/ 50 mls @ 100 mls/hr 01/22/25 15:13 01/22/25 16:14 Sodium Chloride IV 01/22/25 15:42 Infused ONCE ONE Infusion Medical Decision Making Medical Decision Making [facility] Narrative: 74 year old female presents to the ED today via EMS on oxycodone for chronic pain, fibromyalgia, RA, COPD, osteomyelitism, HTN, metabolic encephalopathy, recurrent UTIs, hypothyroidism, CHF presents to the ED today via EMS with confusion x24 hours. Hypertensive, vitals are otherwise WNL. Differential diagnosis includes anemia, electrolyte abnormality, dehydration, UTI, metabolic encephalopathy, hepatic encephalopathy, pneumonia, constipation, medication side effect. Unlikely meningitis, encephalitis Plan for labs, UA, cxr, kub Differential Diagnosis Differential Diagnoses: The differential diagnosis associated with the presentation includes as above. Admission/Observation Consideration of admission/observation: Escalation of care including admission/observation considered Patient admitted to medicine for management metabolic encephalopathy and urinary tract infection Consult Healthcare Provider Management of the patient was discussed with: Hospitalist (abigail noland) Lab Data [facility] Lab Attestation statement: I reviewed the patient's lab results. as above. 01/22/25 13:17 01/22/25 14:29 Labs: Lab Results 01/22/25 01/22/2501/22/25 Range/Units 13:17 14:29 16:11 WBC 7.7 (4.8-10.8) X10*3/uL RBC 4.42 (4.20-5.50) X10*6/uL Hgb 13.2 (12.0-16.0) g/dl Hct 41.2 (37.0-47.0) % MCV 93.2 (80.0-98.0) fL MCH 29.9 (27.0-33.0) pg MCHC 32.0 (31.0-35.0) g/dl RDW 14.1 (11.0-16.0) % Plt Count 128 L (160-400) X10*3/uL MPV 11.0 (9.4-12.3) fL Immature Gran % (Auto) 0.8 H (0.0-0.4) % Neut % (Auto) 70.9 (45-73) % Lymph % (Auto) 18.3 L (20-40) % [place] % (Auto) 8.2 (2-11) % Eos % (Auto) 1.4 (0-4) % Baso % (Auto) 0.4 (0-2) % Lymph # (Auto) 1.4 (1.2-4.9) X10*3/uL [place] # (Auto) 0.6 (0.1-1.2) X10*3/uL Eos # (Auto) 0.1 (0.0-0.4) X10*3/uL Baso # (Auto) 0.0 (0.0-0.2) X10*3/uL Abs Immat Gran (auto) 0.06 H (0.00-0.03) X10*3/uL Absolute Neuts (auto) 5.5 (2.0-8.3) x10*3/uL Absolute Nucleated RBC 0.000 (0.0-0.012) X10*3/uL Nucleated RBC % (auto) 0.0 (0.0-0.2) /100WBC Sodium 136 (135-145) mmol/L Potassium 4.7 (3.3-5.1) mmol/L Chloride 106 (96-108) mmol/L Carbon Dioxide 23 (22-29) mmol/L Anion Gap 12 (12-20) BUN 26 H (9-16) mg/dL Creatinine 0.89 (0.5-1.4) mg/dL Estim Creat Clear Calc 69.9 Estimated GFR > 60 Random Glucose 90 (60-115) mg/dL Lactic Acid 0.9 (0.5-2.0) mmol/L Calcium 8.9 (8.4-10.2) mg/dL Magnesium 2.2 (1.6-2.6) mg/dL Total Bilirubin 0.5 (0.0-1.0) mg/dL Direct Bilirubin 0.1 (0.0-0.5) mg/dL AST 38 H (5-31) U/L ALT 15 (0-31) U/L Alkaline Phosphatase 97 (39-117) U/L Ammonia 17 (13-55) umol/L Troponin I High Sens 5.4 (<3.5-17.0) ng/L NT-Pro-B Natriuret Pep 228.5 (<300) pg/mL Total Protein 7.6 (6.5-8.0) g/dL Albumin 3.4 L (3.5-5.0) g/dL TSH 1.74 (0.32-4.0) uIU/mL Urine Color Yellow Urine Appearance Cloudy Urine pH 5.5 (5.0-9.0) Ur Specific [place] 1.025 (1.005-1.025) Urine Protein 30 (1+) H (Neg-Trace) mg/dL Urine Glucose (UA) Negative (Negative) mg/dL Urine Ketones 15 (Negative) mg/dL Urine Blood Moderate (2+) H (Negative) Urine Nitrite Negative (Negative) Ur Leukocyte Esterase Moderate (2+) H (Negative) Urine RBC 3-5 H (0-2) /HPF Urine WBC >50 H (0-5) /HPF Ur Squamous Epith Cells >20 (0-2) /HPF Urine Bacteria Trace (None Seen) Hyaline Casts 6-10 (0-2) /LPF Independent Interpretation I performed an independent interpretation of an: EKG and CT Scan Interpretation: KUB without bowel obstruction Head CT without bleed/mass Radiology Impression Discussion of test interpretation with radiology: I have reviewed the radiologist's reading. Radiologist Impression: Procedure(s): XR KUB Accession Number(s): [id number] cc: GINO MICHAEL CRANE MECHANIC; Latosha Rubio~ Reason for Exam: ?constipation EXAMINATION: XR ABDOMEN KUB CLINICAL INDICATION: ?constipation COMPARISON: November 19, 2024 CT medical dosimetrist TECHNIQUE: AP view of the abdomen. FINDINGS: Moderate gas is noted in the stomach:. However, there is minimal stool. There is degenerative sclerosis along the pubic symphysis joint. XR/XR KUB IMPRESSION: Unremarkable examination. Electronically signed by: Devon Osorio MD 01/22/2025 04:36 PM EDT RP Procedure(s): CT head/brain wo IV con Accession Number(s): [id number] cc: Latosha Rubio~ Report Number: [id number]: Total DLP = 615.00 mGy-cm Reason for Exam: confusion EXAMINATION: CT HEAD WITHOUT CONTRAST CLINICAL INFORMATION: Confusion COMPARISON: 12/27/2024 TECHNIQUE: Contiguous axial imaging was performed from the skull base to vertex without intravenous administration of contrast. This CT examination was performed using dose optimization techniques as appropriate, variously including the following: *Automated exposure control *Adjustment of mA and/or kV according to patient size (this includes techniques or standardized protocols for targeted exams where dose is matched to indication/reason for exam; i.e. extremities or head) *Use of iterative reconstruction technique FINDINGS: Again seen is mild generalized atrophy and periventricular white matter hypodensities similar to the prior examination. There is no acute ischemic change. There is no intracranial hemorrhage. There is no mass-effect or midline shift. Basal cisterns and ventricles are within normal limits for age/cerebral volume. Orbits are symmetrical and unremarkable. Again noted is partial opacification of ethmoid air cells. There are no bony abnormalities. CT/CT head/brain wo IV con IMPRESSION: No acute intracranial abnormality. Stable chronic changes. Mild chronic ethmoid sinus disease. Electronically signed by: Devon Osorio MD 01/22/2025 02:20 PM EDT RP Independent Historian Clinical information obtained from an independent historian. History obtained from or confirmed by: EMS and Other (daughter) External Record Review External record reviewed: Inpatient record, Office record, Outpatient record, Prior outpatient labs and Prior outpatient radiology Prescription Management I considered prescription management with: Antibiotic Social Determinants Patient?s care significantly limited by Social Determinants of Health including: Other Social Determinant of Health Critical Care Time Critical Care Time Critical Care Time: Yes Total Critical Care Time: 35 Attestation: Critical care time in the amount of 35 minutes has been provided to the patient in terms of direct patient care, frequent reevaluation, consultation with hospitalist, review and interpretation of medical data and results, and management of potentially life-threatening conditions. This is all outside of any medical procedures. Discharge Plan Discharge Clinical Impression: Metabolic encephalopathy UTI (urinary tract infection) Qualifiers: Urinary tract infection type: acute cystitis Patient Disposition: Admitted As Inpatient Interventions: Admission Worksheet (ED) Last Done: 01/22/25 16:25
[2025-01-22 13:23] LABS: MANUAL DIFF FLAG NO
[2025-01-22 13:27] LABS: Appearance Urine Cloudy; Glucose Urine UA Negative (Negative); PH 5.5 (5.0-9.0); Specific Gravity - Urine 1.025 (1.005-1.025); UMIC TRIGGER UACC YES
[2025-01-22 13:45] LABS: UACC Culture Trigger YES
[2025-01-22 13:46] LABS: Hematocrit 41.2 % (37.0-47.0); Hemoglobin 13.2 g/dl (12.0-16.0); Imm Gran Abs Auto 0.06 X10*3/uL (0.00-0.03); Imm Gran Pct Auto 0.8 % (0.0-0.4); Lymphocytes Absolute Auto 1.4 X10*3/uL (1.2-4.9); Mean Corpuscular HGB Conc 32.0 g/dl (31.0-35.0); Mean Corpuscular Hemoglobin 29.9 pg (27.0-33.0); Mean Corpuscular Volume 93.2 fL (80.0-98.0); NRBC Abs Auto 0.000 X10*3/uL (0.0-0.012); NRBC Pct Auto 0.0 /100WBC (0.0-0.2); Platelet Count 128 X10*3/uL (160-400); Red Blood Count 4.42 X10*6/uL (4.20-5.50); White Blood Count 7.7 X10*3/uL (4.8-10.8)
[2025-01-22 14:52] LABS: Anion Gap 12 (12-20); Blood Urea Nitrogen 26 mg/dL (9-16); Calcium 8.9 mg/dL (8.4-10.2); Carbon Dioxide 23 mmol/L (22-29); Chloride 106 mmol/L (96-108); Creatinine Clr Calc Pharmacy 69.9; Estimated Glomerular Filt Rate > 60; Magnesium 2.2 mg/dL (1.6-2.6); Potassium 4.7 mmol/L (3.3-5.1); Sodium 136 mmol/L (135-145)
[2025-01-22 14:58] LABS: NT Pro B Type Natriuretic Pept 228.5 pg/mL (<300); Troponin-I High Sensitivity 5.4 ng/L (<3.5-17.0)
[2025-01-22 15:34] LABS: Alanine Aminotransferase 15 U/L (0-31); Albumin Level 3.4 g/dL (3.5-5.0); Alkaline Phosphatase 97 U/L (39-117); Aspartate Amino Transferase 38 U/L (5-31); Total Protein 7.6 g/dL (6.5-8.0)
[2025-01-22 16:07] VITALS: TEMP 37.3
[2025-01-22 16:13] VITALS: BP 169/70; PULSE 77; RESP 18; TEMP 37.3; O2SAT 98
[2025-01-22 16:29] LABS: Ammonia 17 umol/L (13-55)
--- NOTE | 2025-01-22 17:00 | PM.IMHP ---
History of Present Illness Date of Service: 01/22/25 Chief Complaint: Confusion 74-year-old female with a past medical history significant for recurrent ESBL UTIs, (lasted admit 12/16/24-12/17/2024; 12/27/24-12/31/24) PAD, and osteomyelitis, who presents with confusion from home. She states she has completed all therapies as ordered but still is getting recurrent UTIs despite the use of topical Estrace cream. Last admission she was treated with meropenem however thought to be colonization. Given her mental status changes in the backdrop of UTI she will be admitted for failed outpatient therapies Review of Systems Review of Systems: Denies chest pain Denies shortness of breath Denies nausea vomiting diarrhea Denies fever chills PMFSH Medical History Hypertension History of ESBL E. coli infection Oxygen dependent Oxygen dependent Sepsis Bacteriuria Urinary tract infection due to extended-spectrum beta lactamase (ESBL) producing Escherichia coli History of ESBL E. coli infection Osteomyelitis COPD (chronic obstructive pulmonary disease) Rheumatoid lung Hypothyroidism Congestive heart failure Fibromyalgia HTN (hypertension) Depression Rheumatoid arthritis Family History Father No problems noted. Other Heart disease Surgical History Hx of prior ablation treatment Knee joint replacement status Social History Household Members: None Household Members Other:: 0 Housing: Apartment Do you presently have visiting nurse or other home services: Yes Alcohol intake: never Comment: bedside commode Patient Tobacco Use Status: Former Tobacco user Tobacco use type: Cigarette e-Cigarette/Vaping Use: Never Used Second Hand Smoke Exposure: No Advance Directives: Yes Advance Directives on File: Yes Advance Directives Date on File: 10/19/23 service: No Meds Allergies Allergy/AdvReac Type Severity Reaction Status Date / Time lisinopril (LISINOPRIL) Allergy Severe ANAPHYLAXIS Verified 01/22/25 12:42 Sulfa (Sulfonamide Allergy Intermediate RASH Verified 01/22/25 12:42 Antibiotics) (SULFA (SULFONAMIDE ANTIBIOTICS)) tramadol (TRAMADOL) Allergy Intermediate RASH Verified 01/22/25 12:42 Xbyhpqg-MRT-QtS Reductase Allergy Rash Verified 01/22/25 12:42 Inhibitor (Rrbyqto-Dqb-Qcv Reductase Inhibitor) hydrochlorothiazide (HCTZ) AdvReac Unknown ABNORMAL Verified 01/22/25 12:42 LABS? Active Medications: Current Medications Acetaminophen (Acetaminophen 325 Mg Tablet) 650 mg PO Q6H PRN PRN Reason: Pain, Mild 1-3,fever,headache Calcium Carbonate (Calcium Carbonate 750 Mg Tab.Chew) 750 mg PO Q4H PRN PRN Reason: Heartburn Enoxaparin Sodium (Enoxaparin Sodium 40 Mg/0.4 Ml Syringe) 40 mg SUBCUT Q24H EUGENIO Lactated Ringer's (Lr) 1,000 mls @ 100 mls/hr IVCONT .Q10H EUGENIO Magnesium Hydroxide (Milk Of Magnesia 30 Ml Oral.Susp) 30 ml PO DAILY PRN PRN Reason: Constipation Melatonin (Melatonin 3 Mg Tablet) 6 mg PO BEDTIME PRN PRN Reason: Insomnia Sodium Chloride (0.9 % Sodium Chloride Flush 3 Ml Syringe) 3 ml IVFLUSH QSHIFT [facility] Home Medications ?Medication ?Instructions ?Recorded ?Confirmed ?Last Taken ?Type bupropion HCl 300 mg 24 hr tablet, 300 mg PO DAILY@0908/23/21 01/08/25 12/15/24 History extended release levothyroxine 50 mcg tablet 50 mcg PO DAILY@0608/23/21 01/08/25 12/15/24 History methotrexate sodium 2.5 mg tablet 25 mg PO TU 08/23/21 01/08/25 12/15/24 History omeprazole 40 mg capsule,delayed 40 mg PO DAILY@0608/23/21 01/08/25 12/15/24 History release prednisone 1 mg tablet 4 mg PO DAILY 08/23/21 01/08/25 12/15/24 History pregabalin 200 mg capsule 200 mg PO BID 01/07/23 01/08/25 12/15/24 History folic acid 1 mg tablet 2 mg PO DAILY 10/13/23 01/08/25 12/15/24 History bupropion HCl 150 mg 24 hr tablet, 150 mg PO DAILY@0900 11/25/23 01/08/25 12/15/24 History extended release acetaminophen 325 mg tablet 650 mg PO Q4H PRN Moderate Pain 03/04/24 01/08/25 Unknown History (Tylenol) (Scale Score 5-6) ibuprofen 200 mg tablet 600 mg PO Q6H PRN Pain 05/03/24 01/08/25 Unknown History melatonin 10 mg tablet 10 mg PO BEDTIME PRN Sleep 05/03/24 01/08/25 Unknown History multivitamin 1 tab PO DAILY 05/03/24 01/08/25 12/15/24 History atenolol 25 mg tablet 50 mg PO DAILY 08/29/24 01/08/25 12/15/24 History fluticasone propionate 50 1 spray intranasal BID PRN Allergy 08/29/24 01/08/25 Unknown History mcg/actuation nasal Symptoms spray,suspension biotin 1 mg tablet 1 mg PO DAILY 10/07/24 01/08/25 12/15/24 History furosemide 40 mg tablet 40 mg PO DAILY 10/07/24 01/08/25 12/15/24 History Physical Exam Vital Signs and Narrative: Vital Signs: Last Vital Signs Temp 99.1 F 01/22/25 16:13 Pulse 77 01/22/25 16:13 Resp 18 01/22/25 16:13 BP 169/70 H 01/22/25 16:13 Pulse Ox 98 01/22/25 16:13 O2 Del Method Room Air 01/22/25 16:13 BMI result Body Mass Index 37.3 Const: Other: Awake alert no acute distress Resp: Other: Clear to auscultation bilaterally no rales rhonchi or wheezes Cardio: Other: No S4; positive S1-S2; no S3 murmurs rubs or gallops GI: Other: Soft nontender nondistended normoactive bowel sounds Extrem: Other: No edema bilaterally Results Labs 01/22/25 13:17 01/22/25 14:29 Labs: Laboratory Results - last 24 hr 01/22/25 01/22/25 01/22/25 13:17 14:29 16:11 MCV 93.2 MCH 29.9 MCHC 32.0 RDW 14.1 Plt Count 128 L MPV 11.0 Immature Gran % (Auto) 0.8 H Neut % (Auto) 70.9 Lymph % (Auto) 18.3 L [place] % (Auto) 8.2 Eos % (Auto) 1.4 Baso % (Auto) 0.4 Lymph # (Auto) 1.4 [place] # (Auto) 0.6 Eos # (Auto) 0.1 Baso # (Auto) 0.0 Abs Immat Gran (auto) 0.06 H Absolute Neuts (auto) 5.5 Absolute Nucleated RBC 0.000 Nucleated RBC % (auto) 0.0 Anion Gap 12 Estim Creat Clear Calc 69.9 Estimated GFR > 60 Random Glucose 90 Lactic Acid 0.9 Calcium 8.9 Magnesium 2.2 Total Bilirubin 0.5 Direct Bilirubin 0.1 AST 38 H ALT 15 Alkaline Phosphatase 97 Ammonia 17 Troponin I High Sens 5.4 NT-Pro-B Natriuret Pep 228.5 Total Protein 7.6 Albumin 3.4 L TSH 1.74 Urine Color Yellow Urine Appearance Cloudy Urine pH 5.5 Ur Specific [place] 1.025 Urine Protein 30 (1+) H Urine Glucose (UA) Negative Urine Ketones 15 Urine Blood Moderate (2+) H Urine Nitrite Negative Ur Leukocyte Esterase Moderate (2+) H Urine RBC 3-5 H Urine WBC >50 H Ur Squamous Epith Cells >20 Urine Bacteria Trace Hyaline Casts 6-10 Imaging Radiologist's Impressions: Impressions Head CT 01/22/25 14:04 IMPRESSION: No acute intracranial abnormality. Stable chronic changes. Mild chronic ethmoid sinus disease. Electronically signed by: Devon Osorio MD 01/22/2025 02:20 PM EDT RP KUB X-Ray 01/22/25 16:28 IMPRESSION: Unremarkable examination. Electronically signed by: Devon Osorio MD 01/22/2025 04:36 PM EDT RP Assessment and Plan (1) Metabolic encephalopathy: Status: Acute (2) UTI (urinary tract infection): Qualifiers: Urinary tract infection type: acute cystitis Status: Acute Plan 74-year-old female with a past medical history significant for recurrent ESBL UTIs, (lasted admit 12/16/24-12/17/2024; 12/27/24-12/31/24) PAD, and osteomyelitis, who presents with confusion from home. She states she has completed all therapies as ordered but still is getting recurrent UTIs 1. Metabolic encephalopathy secondary to likely UTI (ESBL)... Failed outpatient therapies -given dose of ceftriaxone in ER. . . -start meropenem 1 g q.8 hours pending culture given acute mental status changes -ID consult in a.m. -lactated Ringer's at 100 an hour overnight 2. Hypertension -acceptable control on current therapy -adjust as indicated 3. Rheumatoid arthritis -continue opiates at outpatient dosing -morphine for breakthrough pain Full code Lovenox Patient will require at least 2 midnights going forward of inpatient stay for IV meropenem pending completion of urine and blood cultures along with specialty consultation. Patient is extremely high risk of outpatient failure This can not be achieved a lesser acute setting Quality Stroke Does the patient have a stroke diagnosis?: No VTE Prior VTE?: No VTE Risk Level:: Medical - moderate - high VTE Device Contraindication: Treatment Not Indicated VTE Drug Contraindication: N/A - Med Ordered
--- NOTE | 2025-01-22 17:07 | HO.NURTONUR ---
Pt lives at home by self, called EMS today for c/o feeling confused x this am. When pt was questioned, pt was able to give time, and place but not year/month. Pt states eveytime this happens its because of a uti. Pt also endorses generalized weakness. At baseline pt utilizes an electric w/c for mobility
--- NOTE | 2025-01-22 17:54 | PHA.MEDREC ---
Addendum entered by Peace Strong RPh 01/22/25 18:08: Reviewed by [facility] Original Note: Pharmacy Consult ? Medication Reconciliation Pharmacy has completed the medication reconciliation. Attempted to speak with patient , however she was AMS. Spoke to patient daughter Susy [phone] over the phone to confirm med list. Daughter states Patient was just discharge last week and there haven't been any changes. Utilized discharge packet from 12/31/24 to confirm med list. Daughter states patient is not taking macrobid from last discharge.
--- OUTSIDE RECORDS SUMMARY | 2025-01-22 18:47 | XMS_ITS | Encounter Summary ---
Author Organization [facility] Address [address] [place] [address] Care Team Providers Care Hull Grinder Name Role Phone Travis Holbrook MD Primary Care Provider [phone] Encounter Details Date Type Department Care Team (Late st Contact Info) Description 07/03/2024 Lab Requisition [facility] - Main Lab [address] [facility] [place] [address] Travis Holbrook MD [address] [place] [address] 204 [facility] [phone] Muscle weakness (generalized); Emphysema, unspecified (CMS/HCC [...] AM EDT) WBC 7.8 4.8 - 10.8 K/[facility] LAB HEMETOLOGY METHOD 07/03/2024 10:02 AM [facility] LAB RBC 3.80 3.80 - 4.80 M/mcL LAB HEMETOLOGY METHOD 07/03/2024 10:02 AM [facility] LAB Hemoglobin 11.4(L) 11.5 - 16.0 g/dL LAB HEMETOLOGY METHOD 07/03/2024 10:02 AM [facility] LAB Hematocrit 36.8 35.0 - 47.0 % LAB HEMETOLOGY METHOD 07/03/2024 10:02 AM [facility] LAB MCV 96.6 79.0 - 98.0 FL LAB HEMETOLOGY METHOD 07/03/2024 10:02 AM [facility] LAB MCH 29.9 27.0 - 32.0 pcg LAB HEMETOLOGY METHOD 07/03/2024 10:02 AM [facility] LAB MCHC 31.0(L) 32.0 - 37.0 g/dL LAB HEMETOLOGY METHOD 07/03/2024 10:02 AM [facility] LAB RDW 16.3(H) 11.0 - 15.0 % LAB HEMETOLOGY METHOD 07/03/2024 10:02 AM [facility] LAB Platelets 202 130 - 400 K/mcL LAB HEMETOLOGY METHOD 07/03/2024 10:02 AM [facility] LAB MPV 12.5(H) 7.0 - 11.0 FL LAB HEMETOLOGY METHOD 07/03/2024 10:02 AM [facility] LAB NRBC 0.0 <1.0 % LAB HEMETOLOGY METHOD 07/03/2024 10:02 AM [facility] LAB NRBC Absolute 0.00 <0.10 K/mcL LAB HEMETOLOGY METHOD 07/03/2024 10:02 AM [facility] LAB Blood Venous blood specimen / Unknown Venipuncture / Unknown 07/03/2024 5:14 AM EDT 07/03/2024 9:27 AM EDT us Travis Holbrook MD LAB BLOOD ORDERABLES Final Resul t [facility] LAB [address] [place] [address], documented in this encounter Visit Diagnoses Diagnosis Muscle weakness (generalized) Emphysema, unspecified (CMS/HCC V24, CMS/HCC V28) documented in this encounter Care Teams Hull Grinder Relationship Specialty Start Date End Date Travis Holbrook MD [address] [place] [address], [phone] PCP - General Family Medicine 02/28/24 documented as of this encounter
--- OUTSIDE RECORDS SUMMARY | 2025-01-22 18:47 | XMS_ITS | Patient Health Record ---
Author Organization [facility] Address [address] [place] [address] Care Team Providers Care Manager Systems Name Role Phone Namita Acosta NP Primary Care Provider Jose Pizarro Unavailable [phone] Allergies Allergen (clinical drug ingredient) Drug/Non Drug Allergy documented on EMR Reaction Allergy Type Onset Date Status Adhesive rash Allergy Active Fentanyl and Related rash Drug Allergy Active hydrocortisone Hydrocortisone rash Drug Allergy Active lisinopril Lisinopril anaphylaxis Drug Allergy Act shawanda Substance with 5-nrajclh-6-methylg lutaryl-coenzyme A reductase inhibitor mechanism of action [...] day(s) Active Vitamin D (Ergocalciferol) 1.25 MG (32766 UT) TAKE 1 CAPSULE BY MOUTH 1 [...] atherosclerosis of arteries of lower limbs (disorder) (26478144829314830 ) Atherosclerosis of blackfeet artery of both lower extremities, with unspecified presence of clinical manifestation (I70.203) Active confirmed Problem Rheumatoid arthritis (43167020) Rheumatoid arthritis involving both feet, unspecified whether rheumatoid factor present (M06.9) Active confirmed Plan Of Treatment Pending Test Test Name Order Date [id number] SKIN/TISSUE 12/17/2021 [id number] SKIN/TISSUE 01/21/2022 [id number] SKIN/TISSUE 05/25/2022 47040 I&D ABSCESS- SIMPLE,SINGLE 023 [id number] I&D ABSCESS- SIMPLE,SINGLE 022 Insurance Providers Payer Name Payer Address Payer Phone Subscriber Number Group Number Insured Name Patient Relationship to Insured Coverage Start Date Coverage End Date [employer] Medicare [id number] [address] [address] [place] [address] [id number] Alexandrea Renee Self - patient is the [...] ribs- CT -sameday went back 09/12/21 09/10/21 [facility]-expiration rheumatoid lung-overnight 07/2021
--- OUTSIDE RECORDS SUMMARY | 2025-01-22 18:47 | XMS_ITS | Encounter Summary ---
Author Organization [facility] Address [address] [place] [address] Care Team Providers Care Card Lacer Name Role Phone Travis Holbrook MD Primary Care Provider [phone] Encounter Details Date Type Department Care Team (Late st Contact Info) Description 02/28/2024 Lab Requisition [facility] - Main Lab 299 [facility] [place] [address] Travis Holbrook MD [address] [place] [address] 204 [facility] [phone] Other intermodal dispatcher (current) drug therapy Social History Tobacco Use [...] COUNT Routine 02/28/2024 6:48 AM EST Other intermodal dispatcher (current) drug therapy BASIC METABOLIC PANEL Routine 02/28/2024 6:48 AM EST Other correction (current) drug therapy documented in this encounter Results * (ABNORMAL) Basic metabolic panel (02/28/2024 6:48 AM EST) Sodium 137 133 - 145 mmol/L LAB CHEMISTRY METHOD 02/28/2024 12:[address] [facility] Potassium 4.2 3.5 - 5.5 mmol/L LAB CHEMISTRY METHOD 02/28/2024 12:[address] [facility] Chloride 103 96 - 110 mmol/L LAB CHEMISTRY METHOD 02/28/2024 12:[address] [facility] CO2 31 21 - 32 mmol/L LAB CHEMISTRY METHOD 02/28/2024 12:[address] [facility] Anion Gap 3 3 - 11 LAB CHEMISTRY METHOD 02/28/2024 12:[address] [facility] Glucose 81 70 - 100 mg/dL LAB CHEMISTRY METHOD 02/28/2024 12:[address] [facility] BUN 26(H) 5 - 25 mg/dL LAB CHEMISTRY METHOD 02/28/2024 12:[address] [facility] Creatinine 1.00 0.50 - 1.10 mg/dL LAB CHEMISTRY METHOD 02/28/2024 12:[address] [facility] eGFR 60 >=60 mL/min/1. 73m2 LAB CHEMISTRY METHOD 02/28/2024 12:[address] [facility] Comment:Calculation based on the Chronic Kidney Disease Epidemiology Collaboration (CKD-EPI) equation refit without adjustment for race. BUN/Creatinine Ratio 26.0 LAB CHEMISTRY METHOD 02/28/2024 12:[address] [facility] Calcium 9.0 8.5 - 10.5 mg/dL LAB CHEMISTRY METHOD 02/28/2024 12:[address] [facility] Blood Venous blood specimen / Unknown Venipuncture / Unknown 02/28/2024 6:48 AM EST 02/28/2024 10:45 AM EST us Travis Holbrook MD LAB BLOOD ORDERABLES Final Resul t [facility] [address] [place] [address], [place] [phone] * (ABNORMAL) Complete blood count (02/28/2024 6:48 AM EST) [facility] WBC 6.1 4.8 - 10.8 K/mcL LAB HEMETOLOGY METHOD 02/28/2024 11:[address] [facility] RBC 3.80 3.80 - 4.80 M/mcL LAB HEMETOLOGY METHOD 02/28/2024 11:[address] [facility] Hemoglobin 11.4(L) 11.5 - 16.0 g/dL LAB HEMETOLOGY METHOD 02/28/2024 11:[address] [facility] Hematocrit 36.3 35.0 - 47.0 % LAB HEMETOLOGY METHOD 02/28/2024 11:[address] [facility] MCV 95.3 79.0 - 98.0 FL LAB HEMETOLOGY METHOD 02/28/2024 11:[address] [facility] MCH 29.9 27.0 - 32.0 pcg LAB HEMETOLOGY METHOD 02/28/2024 11:[address] [facility] MCHC 31.4(L) 32.0 - 37.0 g/dL LAB HEMETOLOGY METHOD 02/28/2024 11:[address] [facility] RDW 15.0 11.0 - 15.0 % LAB HEMETOLOGY METHOD 02/28/2024 11:[address] [facility] Platelets 180 130 - 400 K/mcL LAB HEMETOLOGY METHOD 02/28/2024 11:[address] [facility] MPV 10.5 7.0 - 11.0 FL LAB HEMETOLOGY METHOD 02/28/2024 11:[address] [facility] NRBC 0.0 <1.0 % LAB HEMETOLOGY METHOD 02/28/2024 11:[address] [facility] NRBC Absolute 0.00 <0.10 K/mcL LAB HEMETOLOGY METHOD 02/28/2024 11:33 AM EST [facility] Blood Venous blood specimen / Unknown Venipuncture / Unknown 02/28/2024 6:48 AM EST 02/28/2024 10:45 AM EST us Travis Holbrook MD LAB BLOOD ORDERABLES Final Resul t [facility] [address] [place] [address], documented in this encounter Visit Diagnoses Diagnosis Other intermodal dispatcher (current) drug therapy documented in this encounter Care Teams Card Lacer Relationship Specialty Start Date End Date Travis Holbrook MD [address] [place] [address], [phone] PCP - General Family Medicine 02/28/24 documented as of this encounter
--- OUTSIDE RECORDS SUMMARY | 2025-01-22 18:47 | XMS_ITS | Encounter Summary ---
Author Organization [facility] Address [address] [place] [address] Care Team Providers Care Private Client Advisor Name Role Phone Travis Holbrook MD Primary Care Provider [phone] Encounter Details Date Type Department Care Team (Late st Contact Info) Description 03/05/2024 Lab Requisition [facility] - Main Lab 299 [facility] [place] [address] Travis Holbrook MD [address] [place] [phone] Other long term care administrator (current) drug therapy Social History Tobacco Use [...] of this encounter Visit Diagnoses Diagnosis Other prison (current) drug therapy documented in this encounter Care Teams Private Client Advisor Relationship Specialty Start Date End Date Travis Holbrook MD [address] [facility] [address] [facility] [phone] PCP - General Family Medicine 02/28/24 documented as of this encounter
--- OUTSIDE RECORDS SUMMARY | 2025-01-22 18:47 | XMS_ITS | Clinical Summary ---
Author Organization [address] Address [address] [place] [phone] Phone Care Team Providers Care Plate Sensitizer Name Role Phone Travis Holbrook MD Primary Care Provider [phone] Allergies Active Allergy Reactions Criticality Noted Date Comments Adhesive Tape-Silicones Low 02/06/2017 Tape Other Reaction(s): Rash/Dermatitis Chlorthalidone Medium 08/08/2017 Hypokalemia Hydrochlorothiazide High 02/07/2017 Hyponatremia Lisinopril Anaphylaxis,Swell ing High 02/06/2017 anaphylaxis, 2017 [facility] Anqhxvv-Qsm-Zvx Reductase Inhibitors 02/06/2017 Statins [Hmg-coa-r Inhibitors] Leg weakness leg pain Sulfa (Sulfonamide Antibiotics) Low 02/06/2017 Sulfa Drugs Other Reaction(s): Rash/Dermatitis Tramadol Low 02/06/2017 Other Reaction(s): Rash/Dermatitis serotonin syndrome , while she was also taking Cymbalta, 2017 Tremor Active Problems Problem Noted Date Diagnosed Date Chronic foot ulcer ([facility] V24, [facility] V28) Chronic patellofemoral pain of left knee 023 Difficult intubation 08/25/2022 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 Gait instability 08/25/2022 Polycythemia vera ([facility] V24, [facility] V28) 03/2022 Post-traumatic osteoarthritis of right knee 03/2022 Proximal muscle weakness 08/25/2022 Right medial tibial plateau fracture, closed, initial encounter 08/25/2022 Urinary incontinence 08/25/2022 Anxiety 08/24/2022 Bronchiectasis ([facility] V24, [facility] V28) 2022 Chronic lower back pain 08/24/2022 COPD (chronic obstructive pu lmonary disease) ([facility] V24, [facility] V28) 08/24/2022 Depression 08/24/2022 GERD (gastroesophageal reflux disease) Jose's thyroiditis 08/24/2022 HLD (hyperlipidemia) 08/24/2022 Lymphedema 08/24/2022 Polycythemia 08/24/2022 Rheumatoid arthritis ([facility] V24, [facility] V28) 08/24/2022 Rheumatoid lung ([facility] V24, [facility] V28) 08/24 Vitamin D deficiency 08/24/2022 Lymphedema of left lower extremity 05/13/2020 Overview (04/19/2024): Last Assessment & Plan: Stable at baseline. Takes Lasix as needed for extra leg swelling present. Bronchiectasis without compl ication ([facility] V24, [facility] V28) 01/10/2019 Overview (04/19/2024): [...] with positive rheumatoid factor ([facility] V24, [facility] V28) 10/09/2017 Overview (04/19/2024): Last Assessment & Plan: Stable at baseline, although some increased pain recently in right knee due to insufficiency fracture. F/u with Dr. Hair as scheduled. Rheumatoid lung disease ([facility] V24, [facility] V2 8) 10/09/2017 Overview (04/19/2024): Last Assessment & Plan: Stable, with close monitoring by Dr. Ordonez of pulmonology. Continue current therapies. Centrilobular emphysema ([facility] V24, [facility] V2 8) 08/23/2017 Overview (04/19/2024): [...] Site/Laterality Comments OTHER SURGICAL HISTORY N/A PROCEDURE: AR HYSTEROSCOPY ENDOMETRIAL ABLATION TUBAL LIGATION PROCEDURE: HISTORICAL [...] LAB CHEMISTRY METHOD 07/22/2024 11:53 AM EDT [facility] Potassium 3.7 3.5 - 5.5 [...] Resul t [facility] [address] [place] [address], * Lipid panel (07/06/2022) LDL/HDL Ratio 0 [...] Most Recently Relevant to Health Maintenance Insurance [address] [place] [phone] MEDICAID - [place] [employer] MEDICARE Care Teams Plate Sensitizer Relationship Specialty Start Date End Date Travis Holbrook MD [address] [place] [address] [address] [place], [phone] PCP - General Family Medicine 02/28/24
--- OUTSIDE RECORDS SUMMARY | 2025-01-22 18:47 | XMS_ITS | Encounter Summary ---
Author Organization [facility] Address [address] [place] [address] Care Team Providers Care Gang Punch Operator Name Role Phone Travis Holbrook MD Primary Care Provider [phone] Encounter Details Date Type Department Care Team (Late st Contact Info) Description 07/26/2024 Lab Requisition [facility] - Main Lab [address] [facility] [place] [address] Travis Holbrook MD [address] [place] [address] [address] [place], [phone] Muscle weakness (generalized); Emphysema, unspecified (CMS/HCC V24, [...] V28) documented in this encounter Care Teams Gang Punch Operator Relationship Specialty Start Date End Date Travis Holbrook MD [address] [facility] [address] [place], [phone] PCP - General Family Medicine 02/28/24 documented as of this encounter
--- OUTSIDE RECORDS SUMMARY | 2025-01-22 18:47 | XMS_ITS | Encounter Summary ---
Author Organization [facility] Address [address] [place] [address] Care Team Providers Care Generation Engineer Name Role Phone Travis Holbrook MD Primary Care Provider [phone] Encounter Details Date Type Department Care Team (Late st Contact Info) Description 03/16/2024 Lab Requisition [facility] - Main Lab 299 [facility] [place] [address] Lavonne Irvin MD [address] [place], [place] [phone] Essential (primary) hypertension; Acute kidney failure, unspecified [...] mmol/L LAB CHEMISTRY METHOD 03/18/2024 1:26 PM [facility] Potassium 4.1 3.5 - 5.5 mmol/L LAB CHEMISTRY METHOD 03/18/2024 1:26 PM [facility] Chloride 104 96 - 110 mmol/L LAB CHEMISTRY METHOD 03/18/2024 1:26 PM [facility] CO2 31 21 - 32 mmol/L LAB CHEMISTRY METHOD 03/18/2024 1:26 PM [facility] Anion Gap 2(L) 3 - 11 LAB CHEMISTRY METHOD 03/18/2024 1:26 PM [facility] Glucose 75 70 - 100 mg/dL LAB CHEMISTRY METHOD 03/18/2024 1:26 PM [facility] BUN 23 5 - 25 mg/dL LAB CHEMISTRY METHOD 03/18/2024 1:26 PM [facility] Creatinine 1.30(H) 0.50 - 1.10 mg/dL LAB CHEMISTRY METHOD 03/18/2024 1:26 PM [facility] eGFR 44(L) >=60 mL/min/1. 73m2 LAB CHEMISTRY METHOD 03/18/2024 1:26 PM [facility] Comment:Calculation based on the Chronic Kidney Disease Epidemiology Collaboration (CKD-EPI) equation refit without adjustment for race. BUN/Creatinine Ratio 17.7 LAB CHEMISTRY METHOD 03/18/2024 1:26 PM [facility] Calcium 8.9 8.5 - 10.5 mg/dL LAB CHEMISTRY METHOD 03/18/2024 1:26 PM [facility] Blood Venous blood specimen / Unknown Venipuncture / Unknown 03/18/2024 7:09 AM EST 03/18/2024 11:39 AM EST us Lavonne Irvin MD LAB BLOOD ORDERABLES Final Resul t [facility] [address] [place] [address], * (ABNORMAL) Complete blood count (03/18/2024 7:09 AM EST) [facility] WBC 6.3 4.8 - 10.8 K/mcL LAB HEMETOLOGY METHOD 03/18/2024 11:57 AM EST [facility] RBC 3.90 3.80 - 4.80 M/mcL LAB HEMETOLOGY METHOD 03/18/2024 11:57 AM EST [facility] Hemoglobin 11.6 11.5 - 16.0 g/dL LAB HEMETOLOGY METHOD 03/18/2024 11:57 AM [facility] Hematocrit 37.4 35.0 - 47.0 % LAB HEMETOLOGY METHOD 03/18/2024 11:57 AM [facility] MCV 97.1 79.0 - 98.0 FL LAB HEMETOLOGY METHOD 03/18/2024 11:57 AM [facility] MCH 30.1 27.0 - 32.0 pcg LAB HEMETOLOGY METHOD 03/18/2024 11:57 AM [facility] MCHC 31.0(L) 32.0 - 37.0 g/dL LAB HEMETOLOGY METHOD 03/18/2024 11:57 AM EST [facility] RDW 15.9(H) 11.0 - 15.0 % LAB HEMETOLOGY METHOD 03/18/2024 11:57 AM [facility] Platelets 148 130 - 400 [...] t [facility] [address] [place] [address], documented in this encounter Visit Diagnoses Diagnosis Essential (primary) hypertension Unspecified essential hypertension Acute kidney failure, unspecified (CMS/HCC V24) Acute kidney failure, unspecified documented in this encounter Care Teams Generation Engineer Relationship Specialty Start Date End Date Travis Holbrook MD [address] [place] [address], [phone] PCP - General Family Medicine 02/28/24 documented as of this encounter
--- OUTSIDE RECORDS SUMMARY | 2025-01-22 18:47 | XMS_ITS | Encounter Summary ---
Author Organization [facility] Address [address] [place] [address] Care Team Providers Care Warehousing Technician Name Role Phone Travis Holbrook MD Primary Care Provider [phone] Encounter Details Date Type Department Care Team (Late st Contact Info) Description 03/22/2024 Lab Requisition [facility] - Main Lab 299 [facility] [place] [address] Lavonne Irvin MD [address] [place] [address] Essential (primary) hypertension; Acute kidney failure, unspecified [...] unspecified documented in this encounter Care Teams Warehousing Technician Relationship Specialty Start Date End Date Travis Holbrook MD [address] [place] [address] [facility] [phone] PCP - General Family Medicine 02/28/24 documented as of this encounter
--- OUTSIDE RECORDS SUMMARY | 2025-01-22 18:47 | XMS_ITS | Patient Health Record ---
Author Organization [facility] Address [address] [facility] [address] [place] [address] Care Team Providers Care Scanning Clerk Name Role Phone Carlos Alberto Murray Primary Care Provider Eduardo Carr MD MSc, Juju Unavailable [phone] Johnny Blanco Unavailable Unavailable Allergies Allergen (clinical [...] Status W/U Status Risk Notes Problem Sciatica (19758842) Sciatica (724.3) Active confirmed Problem Lumbosacral spondylosis without myelopathy (24238522) Lumbosacral spondylosis without myelopathy (721.3) Active confirmed Problem Muscle pain (35983897) Unspecified myalgia and myositis (729.1) Active confirmed Problem Postherpetic polyneuropathy (60442353) 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) Active confirmed Problem Lumbosacral spondylosis without myelopathy (disorder) (22579949) Spondylosis without myelopathy or radiculopathy, lumbosacral region (M47.817) Active confirmed Problem Lumbosacral spondylosis without myelopathy (28901815) Other spondylosis, lumbar region (M47.896) Active confirmed Problem High risk drug monitoring status (738065178) parts counterman current use of opiate analgesic (Z79.891) Active confirmed Problem Lumbar spondylosis (523263119) Lumbar spondylosis (M47.816) Active confirmed Problem Left shoulder pain (0133703565) Left shoulder pain (M25.512) Active confirmed Problem Spondylosis (1743737) Spondylosis (M47.9) Active confirmed Problem Postherpetic neuralgia (9498991) Postherpetic neuralgia (B02.29) Active confirmed Problem Shoulder pain (35802746) Shoulder pain (M25.519) Active confirmed Plan Of [...] MEDICARE NGS [address] [place] [phone] [id number] Alexandrea Renee Self - patient is the insured Medical (General) History Medical History History ICD Code Depression Hypercholesterolemia Arthritis Fibromyalgia OCD peripheral neuropathy Surgical History Surgery Date(Month/Year) L knee replacement 2003 L knee revision 2010 Uterine Ablation Tubal Ligation R knee Meniscus repair 2011
--- OUTSIDE RECORDS SUMMARY | 2025-01-22 18:48 | XMS_ITS | Encounter Summary ---
Author Organization [facility] Address [address] [place] [address] Care Team Providers Care Patent Legal Assistant Name Role Phone Travis Holbrook MD Primary Care Provider [phone] Encounter Details Date Type Department Care Team (Late st Contact Info) Description 07/12/2024 Lab Requisition [facility] - Main Lab 299 [facility] [place] [address] Travis Holbrook MD [address] [place] [address] 204 [facility] [address] Muscle weakness (generalized); Emphysema, [...] * Magnesium (07/15/2024 5:26 AM EDT) Pathologist [facility] Magnesium 2.1 1.9 - 2.6 mg/dL LAB CHEMISTRY METHOD 07/15/2024 2:11 PM EDT [facility] Blood Venous blood specimen / Unknown Venipuncture / Unknown 07/15/2024 5:26 AM EDT 07/15/2024 10:23 AM EDT us Travis Holbrook MD LAB BLOOD ORDERABLES Final Resul t [facility] [address] [place] [address], * (ABNORMAL) Basic metabolic panel (07/15/2024 5:26 AM EDT) [facility] Sodium 143 133 - 145 mmol/L LAB CHEMISTRY METHOD 07/15/2024 2:[address] [facility] Potassium 3.8 3.5 - 5.5 mmol/L LAB CHEMISTRY METHOD 07/15/2024 2:[address] [facility] Chloride 102 96 - 110 mmol/L LAB CHEMISTRY METHOD 07/15/2024 2:29 PM T [facility] CO2 30 21 - 32 mmol/L LAB CHEMISTRY METHOD 07/15/2024 2:[address] [facility] Anion Gap 11 3 - 11 LAB CHEMISTRY METHOD 07/15/2024 2:[address] [facility] Glucose 65(L) 70 - 100 mg/dL LAB CHEMISTRY METHOD 07/15/2024 2:[address] [facility] BUN 19 5 - 25 mg/dL LAB CHEMISTRY METHOD 07/15/2024 2:29 PM EDT [facility] Creatinine 1.17(H) 0.50 - 1.10 mg/dL LAB CHEMISTRY METHOD 07/15/2024 2:29 PM EDT [facility] eGFR 50(L) >=60 mL/min/1. 73m2 LAB CHEMISTRY METHOD 07/15/2024 2:29 PM EDT [facility] Comment:Calculation based on the Chronic Kidney Disease Epidemiology Collaboration (CKD-EPI) equation refit without adjustment for race. BUN/Creatinine Ratio 16.2 LAB CHEMISTRY METHOD 07/15/2024 2:29 PM EDT [facility] Calcium 9.3 8.5 - 10.5 mg/dL LAB CHEMISTRY METHOD 07/15/2024 2:29 PM EDT [facility] Blood Venous blood specimen / Unknown Venipuncture / Unknown 07/15/2024 5:26 AM EDT 07/15/2024 10:23 AM EDT us Travis Holbrook MD LAB BLOOD ORDERABLES Final Resul t [facility] [address] [place] [address], * (ABNORMAL) Complete blood count (07/15/2024 5:26 AM EDT) WBC 5.0 4.8 - 10.8 K/mcL LAB HEMETOLOGY METHOD 07/15/2024 11:34 AM EDT [facility] RBC 3.90 3.80 - 4.80 M/mcL LAB HEMETOLOGY METHOD 07/15/2024 11:34 AM EDT [facility] Hemoglobin 11.6 11.5 - 16.0 g/dL LAB HEMETOLOGY METHOD 07/15/2024 11:34 AM EDT [facility] Hematocrit 37.1 35.0 - 47.0 % LAB HEMETOLOGY METHOD 07/15/2024 11:34 AM EDT [facility] MCV 96.1 79.0 - 98.0 FL LAB HEMETOLOGY METHOD 07/15/2024 11:34 AM EDT [facility] MCH 30.1 27.0 - 32.0 pcg LAB HEMETOLOGY METHOD 07/15/2024 11:34 AM EDT [facility] MCHC 31.3(L) 32.0 - 37.0 g/dL LAB HEMETOLOGY METHOD 07/15/2024 11:34 AM EDT [facility] RDW 15.7(H) 11.0 - 15.0 % LAB HEMETOLOGY METHOD 07/15/2024 11:34 AM T [facility] Platelets 204 130 - 400 K/mcL LAB HEMETOLOGY METHOD 07/15/2024 11:34 AM EDT [facility] MPV 11.0 7.0 - 11.0 FL LAB HEMETOLOGY METHOD 07/15/2024 11:34 AM EDT [facility] NRBC 0.0 <1.0 % LAB HEMETOLOGY METHOD 07/15/2024 11:34 AM T [facility] NRBC Absolute 0.00 <0.10 K/mcL LAB HEMETOLOGY METHOD 07/15/2024 11:[address] [facility] Blood Venous blood specimen / Unknown Venipuncture / Unknown 07/15/2024 5:26 AM EDT 07/15/2024 10:23 AM EDT us Travis Holbrook MD LAB BLOOD ORDERABLES Final Resul t [facility] [address] [place] [address], documented in this encounter Visit Diagnoses Diagnosis Muscle weakness (generalized) Emphysema, unspecified (CMS/HCC V24, CMS/HCC V28) Hypokalemia Hypopotassemia documented in this encounter Care Teams Patent Legal Assistant Relationship Specialty Start Date End Date Travis Holbrook MD [address] [place] [address], [phone] PCP - General Family Medicine 02/28/24 documented as of this encounter
--- OUTSIDE RECORDS SUMMARY | 2025-01-22 18:48 | XMS_ITS | Encounter Summary ---
Author Organization [facility] Address [address] [place] [address] Care Team Providers Care Import Coordinator Name Role Phone Travis Holbrook MD Primary Care Provider [phone] Encounter Details Date Type Department Care Team (Late st Contact Info) Description 03/08/2024 Lab Requisition [facility] - Main Lab 299 [facility] [place] [address] Lavonne Irvin MD [address] [place], [place] [phone] Essential (primary) hypertension; Acute kidney failure, unspecified [...] t [facility] [address] [place] [address], * (ABNORMAL) Complete blood count (03/11/2024 7:17 AM EST) [facility] Signature WBC 4.7(L) 4.8 - 10.8 K/mcL LAB HEMETOLOGY METHOD 03/11/2024 11:48 AM EST [facility] RBC 3.70(L) 3.80 - 4.80 [...] LAB HEMETOLOGY METHOD 03/11/2024 11:48 AM EST [facility] MCH 30.4 27.0 - 32.0 [...] LAB HEMETOLOGY METHOD 03/11/2024 11:48 AM EST [facility] NRBC Absolute 0.00 <0.10 K/mcL LAB HEMETOLOGY METHOD 03/11/2024 11:48 AM EST [facility] Blood Venous blood specimen / Unknown Venipuncture / Unknown 03/11/2024 7:17 AM EST 03/11/2024 11:24 AM EST us Lavonne Irvin MD LAB BLOOD ORDERABLES Final Resul t [facility] [address] [place] [address], documented in this encounter Visit Diagnoses Diagnosis Essential (primary) hypertension Unspecified essential hypertension Acute kidney failure, unspecified (CMS/HCC V24) Acute kidney failure, unspecified documented in this encounter Care Teams Import Coordinator Relationship Specialty Start Date End Date Travis Holbrook MD [address] [place] [address], [phone] PCP - General Family Medicine 02/28/24 documented as of this encounter
--- OUTSIDE RECORDS SUMMARY | 2025-01-22 18:48 | XMS_ITS | Encounter Summary ---
Author Organization [facility] Address [address] [place] [address] Care Team Providers Care Mill Recorder Name Role Phone Travis Holbrook MD Primary Care Provider [phone] Encounter Details Date Type Department Care Team (Late st Contact Info) Description 03/07/2024 Lab Requisition [facility] - Main Lab 299 [facility] [place] [address] Lavonne Irvin MD [address] [place], [place] [phone] Essential (primary) hypertension; Acute kidney failure, unspecified [...] mmol/L LAB CHEMISTRY METHOD 03/07/2024 11:23 AM [facility] Potassium 4.5 3.5 - 5.5 mmol/L LAB CHEMISTRY METHOD 03/07/2024 11:23 AM [facility] Chloride 106 96 - 110 mmol/L LAB CHEMISTRY METHOD 03/07/2024 11:23 AM [facility] CO2 29 21 - 32 mmol/L LAB CHEMISTRY METHOD 03/07/2024 11:23 AM [facility] Anion Gap 5 3 - 11 LAB CHEMISTRY METHOD 03/07/2024 11:23 AM [facility] Glucose 78 70 - 100 mg/dL LAB CHEMISTRY METHOD 03/07/2024 11:23 AM [facility] BUN 25 5 - 25 mg/dL LAB CHEMISTRY METHOD 03/07/2024 11:23 AM [facility] Creatinine 1.27(H) 0.50 - 1.10 mg/dL LAB CHEMISTRY METHOD 03/07/2024 11:23 AM [facility] eGFR 45(L) >=60 mL/min/1. 73m2 LAB CHEMISTRY METHOD 03/07/2024 11:23 AM [facility] Comment:Calculation based on the Chronic Kidney Disease Epidemiology Collaboration (CKD-EPI) equation refit without adjustment for race. BUN/Creatinine Ratio 19.7 LAB CHEMISTRY METHOD 03/07/2024 11:23 AM [facility] Calcium 8.6 8.5 - 10.5 mg/dL LAB CHEMISTRY METHOD 03/07/2024 11:23 AM [facility] Blood Venous blood specimen / Unknown Venipuncture / Unknown 03/07/2024 6:00 AM EST 03/07/2024 10:35 AM EST us Lavonne Irvin MD LAB BLOOD ORDERABLES Final Resul t [facility] [address] [place] [address], * (ABNORMAL) Complete blood count (03/07/2024 6:00 AM EST) [facility] Signature WBC 4.8 4.8 - 10.8 K/mcL LAB HEMETOLOGY METHOD 03/07/2024 10:54 AM EST [facility] RBC 3.70(L) 3.80 - 4.80 M/mcL LAB HEMETOLOGY METHOD 03/07/2024 10:54 AM [facility] Hemoglobin 11.1(L) 11.5 - 16.0 g/dL LAB HEMETOLOGY METHOD 03/07/2024 10:54 AM [facility] Hematocrit 34.6(L) 35.0 - 47.0 % LAB HEMETOLOGY METHOD 03/07/2024 10:54 AM [facility] MCV 94.3 79.0 - 98.0 FL LAB HEMETOLOGY METHOD 03/07/2024 10:54 AM [facility] MCH 30.2 27.0 - 32.0 pcg LAB HEMETOLOGY METHOD 03/07/2024 10:54 AM [facility] MCHC 32.1 32.0 - 37.0 g/dL LAB HEMETOLOGY METHOD 03/07/2024 10:54 AM [facility] RDW 15.2(H) 11.0 - 15.0 % LAB HEMETOLOGY METHOD 03/07/2024 10:54 AM [facility] Platelets 211 130 - 400 K/mcL LAB HEMETOLOGY METHOD 03/07/2024 10:54 AM [facility] MPV 10.3 7.0 - 11.0 FL LAB HEMETOLOGY METHOD 03/07/2024 10:54 AM [facility] NRBC 0.0 <1.0 % LAB HEMETOLOGY METHOD 03/07/2024 10:54 AM EST [facility] NRBC Absolute 0.00 <0.10 K/mcL LAB HEMETOLOGY METHOD 03/07/2024 10:54 AM EST [facility] Blood Venous blood specimen / Unknown Venipuncture / Unknown 03/07/2024 6:00 AM EST 03/07/2024 10:35 AM EST us Lavonne Irvin MD LAB BLOOD ORDERABLES Final Resul t [facility] [address] [place] [address], documented in this encounter Visit Diagnoses Diagnosis Essential (primary) hypertension Unspecified essential hypertension Acute kidney failure, unspecified (CMS/HCC V24) Acute kidney failure, unspecified documented in this encounter Care Teams Mill Recorder Relationship Specialty Start Date End Date Travis Holbrook MD [address] [place] [address] 204 [place], [phone] PCP - General Family Medicine 02/28/24 documented as of this encounter
--- OUTSIDE RECORDS SUMMARY | 2025-01-22 18:48 | XMS_ITS | Encounter Summary ---
Author Organization [facility] Address [address] [place] [address] Care Team Providers Care Laboratory Worker Name Role Phone Travis Holbrook MD Primary Care Provider [phone] Encounter Details Date Type Department Care Team (Late st Contact Info) Description 07/19/2024 Lab Requisition [facility] - Main Lab 299 [facility] [employer] [place] [address] Travis Holbrook MD [address] [place] [address] 204 [facility] [address] Muscle weakness (generalized); Emphysema, unspecified [...] [facility] Potassium 3.7 3.5 [...] t [facility] [address] [place] [address], [place] [phone] * (ABNORMAL) Complete blood count (07/22/2024 5:17 AM EDT) WBC 5.3 4.8 - 10.8 K/mcL LAB HEMETOLOGY METHOD 07/22/2024 10:02 AM EDT [facility] RBC 4.00 3.80 - 4.80 M/mcL LAB HEMETOLOGY METHOD 07/22/2024 10:02 AM EDT [facility] Hemoglobin 11.6 11.5 - 16.0 g/dL LAB HEMETOLOGY METHOD 07/22/2024 10:02 AM [facility] Hematocrit 37.5 35.0 - 47.0 % LAB HEMETOLOGY METHOD 07/22/2024 10:02 AM EDT [facility] MCV 94.9 79.0 - 98.0 FL LAB HEMETOLOGY METHOD 07/22/2024 10:02 AM EDT [facility] MCH 29.4 27.0 - 32.0 pcg LAB HEMETOLOGY METHOD 07/22/2024 10:02 AM [facility] MCHC 30.9(L) 32.0 - 37.0 g/dL LAB HEMETOLOGY METHOD 07/22/2024 10:02 AM EDT [facility] RDW 15.4(H) 11.0 - 15.0 % LAB [facility]EM[facility]OLOG[facility] 142 130 - 400 K/mcL [facility]EMETOLOGY [facility]24 [facility] MPV 11.1(H) 7.0 - 11.0 FL LAB HEMETOLOGY METHOD 07/22/2024 10:02 AM EDT [facility] NRBC 0.0 <1.0 % LAB HEMETOLOGY METHOD 07/22/2024 10:02 AM EDT [facility] NRBC Absolute 0.00 <0.10 K/mcL LAB HEMETOLOGY METHOD 07/22/2024 10:02 AM EDT [facility] Blood Venous blood specimen / Unknown Venipuncture / Unknown 07/22/2024 5:17 AM EDT 07/22/2024 9:39 AM EDT us Travis Holbrook MD LAB BLOOD ORDERABLES Final Resul t [facility] [address] [place] [address], documented in this encounter Visit Diagnoses Diagnosis Muscle weakness (generalized) Emphysema, unspecified (CMS/HCC V24, CMS/HCC V28) documented in this encounter Care Teams Laboratory Worker Relationship Specialty Start Date End Date Travis Holbrook MD [address] [place] [address], [phone] PCP - General Family Medicine 02/28/24 documented as of this encounter
--- OUTSIDE RECORDS SUMMARY | 2025-01-22 18:48 | XMS_ITS | Encounter Summary ---
Author Organization [facility] Address [address] [place] [address] Care Team Providers Care Elementary Assistant Principal Name Role Phone Travis Holbrook MD Primary Care Provider [phone] Encounter Details Date Type Department Care Team (Late st Contact Info) Description 07/03/2024 Lab Requisition [facility] - Main Lab 299 [facility] [place] [address] Travis Holbrook MD [address] [place] [address] 204 [facility] [phone] Other assistant terminal manager (current) drug therapy Social History Tobacco [...] LAB CHEMISTRY METHOD 07/03/2024 2:18 PM EDT [facility] Potassium 4.7 3.5 - 5.5 mmol/L LAB CHEMISTRY METHOD 07/03/2024 2:18 PM [facility] Chloride 99 96 - 110 mmol/L LAB CHEMISTRY METHOD 07/03/2024 2:18 PM [facility] CO2 28 21 - 32 mmol/L LAB CHEMISTRY METHOD 07/03/2024 2:18 PM [facility] Anion Gap 7 3 - 11 LAB CHEMISTRY METHOD 07/03/2024 2:18 PM [facility] Glucose 79 70 - 100 mg/dL LAB CHEMISTRY METHOD 07/03/2024 2:18 PM [facility] BUN 19 5 - 25 mg/dL LAB CHEMISTRY METHOD 07/03/2024 2:18 PM [facility] Creatinine 1.09 0.50 - 1.10 mg/dL LAB CHEMISTRY METHOD 07/03/2024 2:18 PM [facility] eGFR 54(L) >=60 mL/min/1. 73m2 LAB CHEMISTRY METHOD 07/03/2024 2:18 PM [facility] Comment:Calculation based on the Chronic Kidney Disease Epidemiology Collaboration (CKD-EPI) equation refit without adjustment for race. BUN/Creatinine Ratio 17.4 LAB CHEMISTRY METHOD 07/03/2024 2:18 PM [facility] Calcium 9.2 8.5 - 10.5 mg/dL LAB CHEMISTRY METHOD 07/03/2024 2:18 PM [facility] AST (SGOT) 23 10 - 42 unit/L LAB CHEMISTRY METHOD 07/03/2024 2:18 PM [facility] ALT (SGPT) 33 10 - 60 unit/L LAB CHEMISTRY METHOD 07/03/2024 2:18 PM [facility] Alkaline Phosphatase 129(H) 42 - 121 unit/L LAB CHEMISTRY METHOD 07/03/2024 2:18 PM [facility] Total Protein 6.6 6.0 - 8.0 g/dL LAB CHEMISTRY METHOD 07/03/2024 2:18 PM EDT [facility] Albumin 2.6(L) 3.2 - 5.0 g/dL LAB CHEMISTRY METHOD 07/03/2024 2:18 PM EDT [facility] Total Bilirubin 0.4 0.0 - 1.4 mg/dL LAB CHEMISTRY METHOD 07/03/2024 2:18 PM EDT [facility] Blood Venous blood specimen / Unknown 07/03/2024 11:40 AM EDT 07/03/2024 1:16 PM EDT us Travis Holbrook MD LAB BLOOD ORDERABLES Final Resul t [facility] [address] [place] [address], documented in this encounter Visit Diagnoses Diagnosis Other assistant terminal manager (current) drug therapy documented in this encounter Care Teams Elementary Assistant Principal Relationship Specialty Start Date End Date Travis Holbrook MD [address] [place] [address] 204 [place], [phone] PCP - General Family Medicine 02/28/24 documented as of this encounter
--- OUTSIDE RECORDS SUMMARY | 2025-01-22 18:48 | XMS_ITS | Encounter Summary ---
Author Organization [facility] Address [address] [place] [address] Care Team Providers Care [employer] Fire [employer] Man Name Role Phone Travis Holbrook MD Primary Care Provider [phone] Encounter Details Date Type Department Care Team (Late st Contact Info) Description 07/05/2024 Lab Requisition [facility] - Main Lab [address] [facility] [place] [address] Travis Holbrook MD [address] [place] [address] [address] [facility] [phone] Muscle weakness (generalized); Emphysema, [...] mmol/L LAB CHEMISTRY METHOD 07/08/2024 8:22 AM [facility] Potassium 3.9 3.5 - 5.5 mmol/L LAB CHEMISTRY METHOD 07/08/2024 8:22 AM [facility] Comment:Hemolysis present Chloride 103 96 - 110 mmol/L LAB CHEMISTRY METHOD 07/08/2024 8:22 AM [facility] CO2 31 21 - 32 mmol/L LAB CHEMISTRY METHOD 07/08/2024 8:22 AM [facility] Anion Gap 6 3 - 11 LAB CHEMISTRY METHOD 07/08/2024 8:22 AM [facility] Glucose 97 70 - 100 mg/dL LAB CHEMISTRY METHOD 07/08/2024 8:22 AM [facility] Comment:Lipemia present BUN 26(H) 5 - 25 mg/dL LAB CHEMISTRY METHOD 07/08/2024 8:22 AM [facility] Creatinine 1.30(H) 0.50 - 1.10 mg/dL LAB CHEMISTRY METHOD 07/08/2024 8:22 AM [facility] eGFR 44(L) >=60 mL/min/1. 73m2 LAB CHEMISTRY METHOD 07/08/2024 8:22 AM [facility] Comment:Calculation based on the Chronic Kidney Disease Epidemiology Collaboration (CKD-EPI) equation refit without adjustment for race. BUN/Creatinine Ratio 20.0 LAB CHEMISTRY METHOD 07/08/2024 8:22 AM [facility] Calcium 9.0 8.5 - 10.5 mg/dL LAB CHEMISTRY METHOD 07/08/2024 8:22 AM [facility] Blood Venous blood specimen / Unknown Venipuncture / Unknown 07/08/2024 5:44 AM EDT 07/08/2024 7:28 AM EDT us Travis Holbrook MD LAB BLOOD ORDERABLES Final Resul t [facility] [address] [place] [address], * (ABNORMAL) Complete blood count (07/08/2024 5:44 AM EDT) WBC 6.1 4.8 - 10.8 K/mcL LAB HEMETOLOGY METHOD 07/08/2024 8:03 AM EDT [facility] RBC 3.90 3.80 - 4.80 M/mcL LAB HEMETOLOGY METHOD 07/08/2024 8:03 AM [facility] Hemoglobin 11.7 11.5 - 16.0 g/dL LAB HEMETOLOGY METHOD 07/08/2024 8:03 AM [facility] Hematocrit 37.1 35.0 - 47.0 % LAB HEMETOLOGY METHOD 07/08/2024 8:03 AM [facility] MCV 95.9 79.0 - 98.0 FL LAB HEMETOLOGY METHOD 07/08/2024 8:03 AM [facility] MCH 30.2 27.0 - 32.0 pcg LAB HEMETOLOGY METHOD 07/08/2024 8:03 AM [facility] MCHC 31.5(L) 32.0 - 37.0 g/dL LAB HEMETOLOGY METHOD 07/08/2024 8:03 AM [facility] RDW 15.9(H) 11.0 - 15.0 % LAB HEMETOLOGY METHOD 07/08/2024 8:03 AM [facility] Platelets 223 130 - 400 K/mcL LAB HEMETOLOGY METHOD 07/08/2024 8:03 AM [facility] MPV 10.9 7.0 - 11.0 FL LAB HEMETOLOGY METHOD 07/08/2024 8:03 AM EDT [facility] NRBC 0.0 <1.0 % LAB HEMETOLOGY METHOD 07/08/2024 8:03 AM EDT [facility] NRBC Absolute 0.00 <0.10 K/mcL LAB HEMETOLOGY METHOD 07/08/2024 8:03 AM EDT [facility] Blood Venous blood specimen / Unknown Venipuncture / Unknown 07/08/2024 5:44 AM EDT 07/08/2024 7:28 AM EDT us Travis Holbrook MD LAB BLOOD ORDERABLES Final Resul t [facility] [address] [place] [address], documented in this encounter Visit Diagnoses Diagnosis Muscle weakness (generalized) Emphysema, unspecified (CMS/HCC V24, CMS/HCC V28) documented in this encounter Care Teams [employer] Art[employer] Fire Control Man Relationship Specialty Start Date End Date Travis Holbrook MD [address] [place] [address], [phone] PCP - General Family Medicine 02/28/24 documented as of this encounter
[2025-01-22 19:49] VITALS: BMI 34.3
[2025-01-22 19:50] VITALS: BP 138/89; PULSE 80; RESP 18; TEMP 36.6; O2SAT 97
[2025-01-22] MEDS: Lactated Ringers 1,000 ML 100 ML IVCONT (20:24)
[2025-01-22] MEDS: 0.9 % Sodium Chloride Flush 3 ML SYRINGE IVFLUSH (20:29)
[2025-01-23 03:57] VITALS: BP 148/80; PULSE 85; RESP 18; TEMP 36.9; O2SAT 99
[2025-01-23] MEDS: Lactated Ringers 1,000 ML 100 ML IVCONT ×2 (05:37→17:08)
[2025-01-23 06:15] LABS: MANUAL DIFF FLAG NO
[2025-01-23 06:34] LABS: Alanine Aminotransferase 10 U/L (0-31); Albumin Level 3.2 g/dL (3.5-5.0); Alkaline Phosphatase 91 U/L (39-117); Anion Gap 13 (12-20); Aspartate Amino Transferase 20 U/L (5-31); Blood Urea Nitrogen 20 mg/dL (9-16); Calcium 8.7 mg/dL (8.4-10.2); Carbon Dioxide 22 mmol/L (22-29); Chloride 109 mmol/L (96-108); Creatinine Clr Calc Pharmacy 73.4; Estimated Glomerular Filt Rate > 60; Potassium 3.6 mmol/L (3.3-5.1); Sodium 140 mmol/L (135-145); Total Protein 6.5 g/dL (6.5-8.0)
[2025-01-23 06:46] LABS: Hematocrit 34.3 % (37.0-47.0); Hemoglobin 11.1 g/dl (12.0-16.0); Imm Gran Abs Auto 0.02 X10*3/uL (0.00-0.03); Imm Gran Pct Auto 0.4 % (0.0-0.4); Lymphocytes Absolute Auto 1.3 X10*3/uL (1.2-4.9); Mean Corpuscular HGB Conc 32.4 g/dl (31.0-35.0); Mean Corpuscular Hemoglobin 29.7 pg (27.0-33.0); Mean Corpuscular Volume 91.7 fL (80.0-98.0); NRBC Abs Auto 0.000 X10*3/uL (0.0-0.012); NRBC Pct Auto 0.0 /100WBC (0.0-0.2); Platelet Count 102 X10*3/uL (160-400); Red Blood Count 3.74 X10*6/uL (4.20-5.50); White Blood Count 5.1 X10*3/uL (4.8-10.8)
[2025-01-23 07:42] VITALS: BP 157/69; PULSE 72; RESP 18; TEMP 36.1; O2SAT 94
[2025-01-23] MEDS: buPROPion HCl XL 150 MG TAB.ER.24H PO (08:14)
[2025-01-23] MEDS: buPROPion HCl XL 300 MG TAB.ER.24H PO (08:15)
[2025-01-23] MEDS: 0.9 % Sodium Chloride Flush 3 ML SYRINGE IVFLUSH ×2 (08:15→17:13)
[2025-01-23] MEDS: Potassium Chloride ER 20 MEQ TAB.ER.PRT 40 MEQ PO ×2 (12:05→20:47)
--- NOTE | 2025-01-23 12:21 | HO.WOUND ---
Wound Consult: Initial 74 yr old female admitted [place] [facility] [place] - See progress notes and H&P for detailed history. Wound consult placed for bilateral legs. Patient agreeable to assessment and photo documentation. Bilateral legs superficial scratches noted to left medial leg- no drainage. bilateral legs with edema, redness, warmth. heels intact pink and blanching Goals of Treatment: ? elevation to reduce edema- no topical recommendations needed at this time Re-consult wound care Nurse for wound deterioration or wound changes.
[2025-01-23 15:14] VITALS: BP 137/63; PULSE 70; RESP 18; TEMP 36.3; O2SAT 98
--- NOTE | 2025-01-23 15:37 | MHC.CM.PN ---
Patient w/ AMS. LM for daughter, Susy. IMM delivered. Per chart review of recent visit, patient lives alone. Uses electric w/c. Has [employer]INGERNAIL SCULPT[employer]ER's M-F via [facility]. Active w/ [facility]. HCP on file. PCP Namita Acosta. DP: Likely home, resume FINGERNAIL SCULPT[employer]ER and [facility]NA services via BLS transport. ? need for IV abx. Daughter has assisted in the past. CM will continue to follow.
--- NOTE | 2025-01-23 15:41 | P.PNIM_ITS ---
Subjective Subjective Date of Service: 01/23/25 Interval History: No acute issues overnight. Remains somewhat confused this a.m. Review of Systems Denies chest pain Denies shortness of breath Denies nausea vomiting diarrhea Denies fever chills Physical Exam 2 Vital Signs: Vital Signs: Last Vital Signs Temp 97.4 F 01/23/25 15:14 Pulse 70 01/23/25 15:14 Resp 18 01/23/25 15:14 BP 137/63 01/23/25 15:14 Pulse Ox 98 01/23/25 15:14 O2 Del Method Room Air 01/23/25 15:14 O2 Flow Rate 2 01/23/25 07:42 BMI result Body Mass Index 34.3 Const: Other: Awake alert no acute distress Resp: Other: Clear to auscultation bilaterally no rales rhonchi or wheezes Cardio: Other: No S4; positive S1-S2; no S3 murmurs rubs or gallops GI: Other: Soft nontender nondistended normoactive bowel sounds Extrem: Other: No edema bilaterally Objective Data Active Medications Acetaminophen (Acetaminophen 325 Mg Tablet) 650 mg PO Q6H PRN PRN Reason: Pain, Mild 1-3,fever,headache Atenolol (Atenolol 50 Mg Tablet) 50 mg PO DAILY [facility]; Protocol Last Admin: 01/23/25 08:14 Dose: 50 mg Documented By: DAMEON Bupropion HCl (Bupropion Hcl Xl 150 Mg Tab.Er.24h) 150 mg PO DAILY@0900 [facility] Last Admin: 01/23/25 08:14 Dose: 150 mg Documented By: DAMEON Bupropion HCl (Bupropion Hcl Xl 300 Mg Tab.Er.24h) 300 mg PO DAILY@0900 [facility] Last Admin: 01/23/25 08:15 Dose: 300 mg Documented By: DAMEON Calcium Carbonate (Calcium Carbonate 750 Mg Tab.Chew) 750 mg PO Q4H PRN PRN Reason: Heartburn Doxazosin Mesylate (Doxazosin Mesylate 2 Mg Tablet) 2 mg PO BEDTIME [facility]; Protocol Last Admin: 01/22/25 20:24 Dose: 2 mg Documented By: RODRICK Enoxaparin Sodium (Enoxaparin Sodium 40 Mg/0.4 Ml Syringe) 40 mg SUBCUT Q24H [facility] Last Admin: 01/22/25 19:14 Dose: 40 mg Documented By: BUNNY Fluticasone Propionate (Fluticasone Propionate Nasal 16 Gm [place]) 1 spray NOSTRIL-B BID PRN PRN Reason: Allergy Symptoms Folic Acid (Folic Acid 1 Mg Tablet) 2 mg PO DAILY [facility] Last Admin: 01/23/25 08:14 Dose: 2 mg Documented By: DAMEON Furosemide (Furosemide 40 Mg Tablet) 40 mg PO DAILY [facility]; Protocol Last Admin: 01/23/25 08:14 Dose: 40 mg Documented By: DAMEON Lactated Ringer's (Lr) 1,000 mls @ 100 mls/hr IVCONT .Q10H [facility] Last Admin: 01/23/25 05:37 Dose: 100 mls/hr Documented By: RODRICK Levothyroxine Sodium (Levothyroxine Sodium 50 Mcg Tablet) 50 mcg PO DAILY@0600 [facility] Last Admin: 01/23/25 05:36 Dose: 50 mcg Documented By: RODRICK Magnesium Hydroxide (Milk Of Magnesia 30 Ml Oral.Susp) 30 ml PO DAILY PRN PRN Reason: Constipation Melatonin (Melatonin 3 Mg Tablet) 6 mg PO BEDTIME PRN PRN Reason: Insomnia Melatonin (Melatonin 3 Mg Tablet) 9 mg PO BEDTIME PRN PRN Reason: Sleep Meropenem (Meropenem 1 Gm Vial) 1 gm IVPUSH Q8H [facility] Last Admin: 01/23/25 08:14 Dose: 1 gm Documented By: DAMEON Multivitamins/Vitamin C (Multivitamin Tablet) 1 tab PO DAILY [facility] Last Admin: 01/23/25 08:15 Dose: 1 tab Documented By: DAMEON Omeprazole (Omeprazole 40 Mg Capsule.Dr) 40 mg PO DAILY@0630 [facility] Last Admin: 01/23/25 05:36 Dose: 40 mg Documented By: RODRICK Ondansetron HCl (Ondansetron Hcl 4 Mg/2 Ml Vial) 4 mg IVPUSH Q6H PRN PRN Reason: Nausea and Vomiting Last Admin: 01/23/25 03:39 Dose: 4 mg Documented By: RODRICK Oxycodone HCl (Oxycodone Hcl Immed Release 5 Mg Tablet) 20 mg PO Q4H PRN PRN Reason: pain (scale score 7-10) Potassium Chloride (Potassium Chloride Er 20 Meq Tab.Er.Prt) 40 meq PO BID [facility] Stop: 01/24/25 21:01 Last Admin: 01/23/25 12:05 Dose: 40 meq Documented By: DAMEON Pregabalin (Pregabalin 200 Mg Capsule) 200 mg PO BID [facility] Last Admin: 01/23/25 08:14 Dose: 200 mg Documented By: DAMEON Sodium Chloride (0.9 % Sodium Chloride Flush 3 Ml Syringe) 3 ml IVFLUSH QSHIFT [facility] Last Admin: 01/23/25 08:15 Dose: 3 ml Documented By: DAMEON Labs 01/23/25 05:56 01/23/25 05:56 Labs: Laboratory Results - last 24 hr 01/22/25 01/22/25 01/23/25 14:29 16:11 05:56 MCV 91.7 MCH 29.7 MCHC 32.4 RDW 14.1 Plt Count 102 L MPV 11.0 Immature Gran % (Auto) 0.4 Neut % (Auto) 57.3 Lymph % (Auto) 24.9 [place] % (Auto) 14.0 H Eos % (Auto) 3.0 Baso % (Auto) 0.4 Lymph # (Auto) 1.3 [place] # (Auto) 0.7 Eos # (Auto) 0.2 Baso # (Auto) 0.0 Abs Immat Gran (auto) 0.02 Absolute Neuts (auto) 2.9 Absolute Nucleated RBC 0.000 Nucleated RBC % (auto) 0.0 Anion Gap 13 Estim Creat Clear Calc 73.4 Estimated GFR > 60 Random Glucose 79 Calcium 8.7 Total Bilirubin 0.5 AST 20 ALT 10 Alkaline Phosphatase 91 Ammonia 17 Total Protein 6.5 Albumin 3.2 L TSH 1.74 Microbiology Microbiology Results: Microbiology 01/22/25 13:16 Blood Culture - Preliminary Blood - Venous No growth after 24 hours. 01/22/25 13:16 Blood Culture - Preliminary Blood - Venous No growth after 24 hours. 01/22/25 Unknown Urine Culture - Preliminary Urine Catheterized - Straight Catheter Gram negative altaf Assessment and Plan (1) Metabolic encephalopathy: Status: Acute (2) Cellulitis: Status: Acute Plan 74-year-old female with a past medical history significant for recurrent ESBL UTIs, (lasted admit 12/16/24-12/17/2024; 12/27/24-12/31/24) PAD, and osteomyelitis, who presents with confusion from home. She states she has completed all therapies as ordered but still is getting recurrent UTIs 1. Metabolic encephalopathy ... Question related to cellulitis -review of urine likely colonization -DC meropenem ... Ceftriaxone 1 g IV daily -ID consult in a.m. -lactated Ringer's at 100/hr 2. Hypertension -acceptable control on current therapy -adjust as indicated 3. Rheumatoid arthritis -continue opiates at outpatient dosing -morphine for breakthrough pain Full code Lovenox Patient will require ongoing hospitalization for IV antibiotics to treat cellulitis which is causing metabolic cephalopathy. This has failed multiple outpatient therapies Quality Stroke Does the patient have a stroke diagnosis?: No VTE Prior VTE?: No VTE Risk Level:: Medical - moderate - high VTE Device Contraindication: Treatment Not Indicated VTE Drug Contraindication: N/A - Med Ordered
[2025-01-23 19:25] VITALS: BP 137/62; PULSE 64; RESP 16; TEMP 36.4; O2SAT 96
[2025-01-24] MEDS: Lactated Ringers 1,000 ML 100 ML IVCONT ×2 (01:32→12:29)
[2025-01-24 03:12] VITALS: BP 138/70; PULSE 72; RESP 18; TEMP 36.8; O2SAT 94
[2025-01-24 06:21] LABS: MANUAL DIFF FLAG NO
[2025-01-24 06:42] LABS: Hematocrit 35.7 % (37.0-47.0); Hemoglobin 11.4 g/dl (12.0-16.0); Imm Gran Abs Auto 0.04 X10*3/uL (0.00-0.03); Imm Gran Pct Auto 0.7 % (0.0-0.4); Lymphocytes Absolute Auto 1.8 X10*3/uL (1.2-4.9); Mean Corpuscular HGB Conc 31.9 g/dl (31.0-35.0); Mean Corpuscular Hemoglobin 29.5 pg (27.0-33.0); Mean Corpuscular Volume 92.5 fL (80.0-98.0); NRBC Abs Auto 0.000 X10*3/uL (0.0-0.012); NRBC Pct Auto 0.0 /100WBC (0.0-0.2); Platelet Count 118 X10*3/uL (160-400); Red Blood Count 3.86 X10*6/uL (4.20-5.50); White Blood Count 5.8 X10*3/uL (4.8-10.8)
[2025-01-24 06:43] LABS: Alanine Aminotransferase 9 U/L (0-31); Albumin Level 3.1 g/dL (3.5-5.0); Alkaline Phosphatase 96 U/L (39-117); Anion Gap 10 (12-20); Aspartate Amino Transferase 16 U/L (5-31); Blood Urea Nitrogen 18 mg/dL (9-16); Calcium 8.6 mg/dL (8.4-10.2); Carbon Dioxide 26 mmol/L (22-29); Chloride 107 mmol/L (96-108); Creatinine Clr Calc Pharmacy 61.9; Estimated Glomerular Filt Rate 57; Potassium 4.2 mmol/L (3.3-5.1); Sodium 139 mmol/L (135-145); Total Protein 6.4 g/dL (6.5-8.0)
--- NOTE | 2025-01-24 07:39 | HO.PM.IMPN ---
Subjective Subjective Date of Service: 01/24/25 Interval History: f/u metabolic encephalopathy uti MS at baseline. E. coli sensitive to macrobid. Physical Exam Vital Signs: Vital Signs: Last Vital Signs Temp 98.3 F 01/24/25 03:12 Pulse 72 01/24/25 03:12 Resp 18 01/24/25 03:12 BP 138/70 01/24/25 03:12 Pulse Ox 94 01/24/25 03:12 O2 Del Method Room Air 01/24/25 03:12 O2 Flow Rate 2 01/23/25 07:42 BMI result Body Mass Index 34.3 Const: Other: Awake alert no acute distress Resp: Other: Clear to auscultation bilaterally no rales rhonchi or wheezes Cardio: Other: No S4; positive S1-S2; no S3 murmurs rubs or gallops GI: Other: Soft nontender nondistended normoactive bowel sounds Extrem: Other: No edema bilaterally Objective Data Active Medications Acetaminophen (Acetaminophen 325 Mg Tablet) 650 mg PO Q6H PRN PRN Reason: Pain, Mild 1-3,fever,headache Atenolol (Atenolol 50 Mg Tablet) 50 mg PO DAILY [facility]; Protocol Last Admin: 01/23/25 08:14 Dose: 50 mg Documented By: DAMEON Bupropion HCl (Bupropion Hcl Xl 150 Mg Tab.Er.24h) 150 mg PO DAILY@0900 [facility] Last Admin: 01/23/25 08:14 Dose: 150 mg Documented By: DAMEON Bupropion HCl (Bupropion Hcl Xl 300 Mg Tab.Er.24h) 300 mg PO DAILY@0900 [facility] Last Admin: 01/23/25 08:15 Dose: 300 mg Documented By: DAMEON Calcium Carbonate (Calcium Carbonate 750 Mg Tab.Chew) 750 mg PO Q4H PRN PRN Reason: Heartburn Doxazosin Mesylate (Doxazosin Mesylate 2 Mg Tablet) 2 mg PO BEDTIME [facility]; Protocol Last Admin: 01/23/25 20:47 Dose: 2 mg Documented By: RODRICK Enoxaparin Sodium (Enoxaparin Sodium 40 Mg/0.4 Ml Syringe) 40 mg SUBCUT Q24H [facility] Last Admin: 01/23/25 17:08 Dose: 40 mg Documented By: DAMEON Fluticasone Propionate (Fluticasone Propionate Nasal 16 Gm [place]) 1 spray NOSTRIL-B BID PRN PRN Reason: Allergy Symptoms Folic Acid (Folic Acid 1 Mg Tablet) 2 mg PO DAILY [facility] Last Admin: 01/23/25 08:14 Dose: 2 mg Documented By: DAMEON Furosemide (Furosemide 40 Mg Tablet) 40 mg PO DAILY [facility]; Protocol Last Admin: 01/23/25 08:14 Dose: 40 mg Documented By: DAMEON Lactated Ringer's (Lr) 1,000 mls @ 100 mls/hr IVCONT .Q10H [facility] Last Admin: 01/24/25 01:32 Dose: 100 mls/hr Documented By: RODRICK Levothyroxine Sodium (Levothyroxine Sodium 50 Mcg Tablet) 50 mcg PO DAILY@0600 [facility] Last Admin: 01/24/25 05:37 Dose: 50 mcg Documented By: RODRICK Magnesium Hydroxide (Milk Of Magnesia 30 Ml Oral.Susp) 30 ml PO DAILY PRN PRN Reason: Constipation Melatonin (Melatonin 3 Mg Tablet) 6 mg PO BEDTIME PRN PRN Reason: Insomnia Melatonin (Melatonin 3 Mg Tablet) 9 mg PO BEDTIME PRN PRN Reason: Sleep Meropenem (Meropenem 1 Gm Vial) 1 gm IVPUSH Q8H [facility] Last Admin: 01/24/25 01:32 Dose: 1 gm Documented By: RODRICK Multivitamins/Vitamin C (Multivitamin Tablet) 1 tab PO DAILY [facility] Last Admin: 01/23/25 08:15 Dose: 1 tab Documented By: DAMEON Omeprazole (Omeprazole 40 Mg Capsule.Dr) 40 mg PO DAILY@0630 [facility] Last Admin: 01/24/25 05:37 Dose: 40 mg Documented By: RODRICK Ondansetron HCl (Ondansetron Hcl 4 Mg/2 Ml Vial) 4 mg IVPUSH Q6H PRN PRN Reason: Nausea and Vomiting Last Admin: 01/23/25 03:39 Dose: 4 mg Documented By: RODRICK Oxycodone HCl (Oxycodone Hcl Immed Release 5 Mg Tablet) 20 mg PO Q4H PRN PRN Reason: pain (scale score 7-10) Potassium Chloride (Potassium Chloride Er 20 Meq Tab.Er.Prt) 40 meq PO BID [facility] Stop: 01/24/25 21:01 Last Admin: 01/23/25 20:47 Dose: 40 meq Documented By: RODRICK Pregabalin (Pregabalin 200 Mg Capsule) 200 mg PO BID [facility] Last Admin: 01/23/25 20:47 Dose: 200 mg Documented By: RODRICK Sodium Chloride (0.9 % Sodium Chloride Flush 3 Ml Syringe) 3 ml IVFLUSH QSHIFT [facility] Last Admin: 01/24/25 00:08 Dose: Not Given Documented By: RODRICK Non-Admin Reason: IV Running Labs 01/24/25 05:52 01/24/25 05:52 Labs: Laboratory Results - last 24 hr 01/24/25 05:52 MCV 92.5 MCH 29.5 MCHC 31.9 RDW 14.3 Plt Count 118 L MPV 10.7 Immature Gran % (Auto) 0.7 H Neut % (Auto) 50.6 Lymph % (Auto) 30.8 [place] % (Auto) 13.4 H Eos % (Auto) 4.3 H Baso % (Auto) 0.2 Lymph # (Auto) 1.8 [place] # (Auto) 0.8 Eos # (Auto) 0.3 Baso # (Auto) 0.0 Abs Immat Gran (auto) 0.04 H Absolute Neuts (auto) 2.9 Absolute Nucleated RBC 0.000 Nucleated RBC % (auto) 0.0 Anion Gap 10 L Estim Creat Clear Calc 61.9 Estimated GFR 57 Fasting Glucose 102 H Calcium 8.6 Total Bilirubin 0.2 AST 16 ALT 9 Alkaline Phosphatase 96 Total Protein 6.4 L Albumin 3.1 L Microbiology Microbiology Results: Microbiology 01/22/25 13:16 Blood Culture - Preliminary Blood - Venous No growth after 24 hours. 01/22/25 13:16 Blood Culture - Preliminary Blood - Venous No growth after 24 hours. 01/22/25 Unknown Urine Culture - Preliminary Urine Catheterized - Straight Catheter Gram negative altaf Assessment and Plan (1) Metabolic encephalopathy: Status: Acute (2) Cellulitis: Status: Acute Plan 74-year-old female with a past medical history significant for recurrent ESBL UTIs, (lasted admit 12/16/24-12/17/2024; 12/27/24-12/31/24) PAD, and osteomyelitis, who presents with confusion from home. She states she has completed all therapies as ordered but still is getting recurrent UTIs, presently with GNR UTI 1. Acute Metabolic encephalopathy, likely from UTI. Urine culture growing E. coli ESBL positive but sensitive to Macrobid, there is also posiblity of colonization, not septic. Will change to PO macrobid for a total of 10 day and dc home. 2. Hypertension -controlled on atenolol 3. Rheumatoid arthritis (RA) -No acute issues, Full code Lovenox ongoing hospipitalization for uit with ecephalopathy, needing IV Abx Quality Stroke Does the patient have a stroke diagnosis?: No VTE Prior VTE?: No VTE Risk Level:: Medical - moderate - high VTE Device Contraindication: Treatment Not Indicated VTE Drug Contraindication: N/A - Med Ordered
[2025-01-24 08:00] VITALS: BP 130/79; PULSE 69; RESP 18; TEMP 36.7; O2SAT 95
[2025-01-24] MEDS: buPROPion HCl XL 150 MG TAB.ER.24H PO (08:52)
[2025-01-24] MEDS: buPROPion HCl XL 300 MG TAB.ER.24H PO (08:52)
--- NOTE | 2025-01-24 10:28 | PM.DS ---
DS: Providers Provider Date of Service: 01/24/25 Date of admission: 01/22/25 16:54 Date of discharge: 01/24/25 Primary care physician: Namita Acosta NP Consults: 01/23/25 09:34 Consult to Wound Care Routine Consulting Provider: [facility] W[facility] Care Management Reason for consultation: Cellulitis 01/24/25 07:41 Consult to Infectious Diseases Routine Consulting Provider: [facility] Infect[facility] Reason for consultation: recurent ESBL UTI, is this colonization Has provider been notified: Yes DS: Diagnosis Discharge Diagnosis (1) Metabolic encephalopathy: Status: Acute (2) Cellulitis: Status: Acute DS: Summary Hospital Course Hospital Course: Admission [facility] Complaint: Confusion 74-year-old female with a past medical history significant for recurrent ESBL UTIs, (lasted admit 12/16/24-12/17/2024; 12/27/24-12/31/24) PAD, and osteomyelitis, who presents with confusion from home. She states she has completed all therapies as ordered but still is getting recurrent UTIs despite the use of topical Estrace cream. Last admission she was treated with meropenem however thought to be colonization. Given her mental status changes in the backdrop of UTI she will be admitted for failed outpatient therapies Hospital course: 74-year-old female with a history of recurrent ESBL urinary tract infections (last admissions: 12/16/24?12/17/24 and 12/27/24?12/31/24), peripheral arterial disease, and osteomyelitis, presenting from home with confusion. She reports adherence to all prescribed therapies but continues to experience recurrent UTIs, currently with a gram-negative altaf UTI. Acute metabolic encephalopathy is likely secondary to UTI. Urine culture is positive for ESBL-producing E. coli, which is sensitive to nitrofurantoin (Macrobid); colonization remains a possibility, and the patient is not septic. She was initially treated with IV meropenem and will be transitioned to oral Macrobid to complete a total of 10 days of antibiotics. Her encephalopathy has resolved, and she is ready for discharge home. Final diagnoses: Acute toxic metabolic encephalopathy Acute UTI Time Attestation Discharge Coordination Time (in mins): 40 Quality: Safe Use of Opioids Does Pt have an Active Cancer Diagnosis on the Problem List?: No Quality: Stroke Does the patient have a stroke diagnosis?: No Physical Exam Vital Signs: Vital Signs: Last Vital Signs Temp 98.1 F 01/24/25 08:00 Pulse 69 01/24/25 08:00 Resp 18 01/24/25 08:00 BP 130/79 01/24/25 08:00 Pulse Ox 95 01/24/25 08:00 O2 Del Method Nasal Cannula 01/24/25 08:00 O2 Flow Rate 1.0 01/24/25 08:00 BMI result Body Mass Index 34.3 Const: Other: General: AO X 3, no acute distress Resp: CTA bilateral CVS: S1,S2,RRR GI: +BS, NT, no distention Skin: No rash Neuro: motor grossly intact Psych: appropriate affect DS: Data Data Completed and Pending Completed studies during hospitalization [Text1]: Procedures Insertion of Infusion Device into Right Basilic Vein, Percutaneous Approach (11/19/24) Insertion of Infusion Device into Right Brachial Vein, Percutaneous Approach (12/27/24) Insertion of Infusion Device into Right Cephalic Vein, Percutaneous Approach (10/13/23) Labs on day of discharge: Laboratory Results - last 24 hr 01/24/25 05:52 WBC 5.8 RBC 3.86 L Hgb 11.4 L Hct 35.7 L MCV 92.5 MCH 29.5 MCHC 31.9 RDW 14.3 Plt Count 118 L MPV 10.7 Immature Gran % (Auto) 0.7 H Neut % (Auto) 50.6 Lymph % (Auto) 30.8 Crane % (Auto) 13.4 H Eos % (Auto) 4.3 H Baso % (Auto) 0.2 Lymph # (Auto) 1.8 Crane # (Auto) 0.8 Eos # (Auto) 0.3 Baso # (Auto) 0.0 Abs Immat Gran (auto) 0.04 H Absolute Neuts (auto) 2.9 Absolute Nucleated RBC 0.000 Nucleated RBC % (auto) 0.0 Sodium 139 Potassium 4.2 Chloride 107 Carbon Dioxide 26 Anion Gap 10 L BUN 18 H Creatinine 0.96 Estim Creat Clear Calc 61.9 Estimated GFR 57 Fasting Glucose 102 H Calcium 8.6 Total Bilirubin 0.2 AST 16 ALT 9 Alkaline Phosphatase 96 Total Protein 6.4 L Albumin 3.1 L Preliminary micro results at discharge 01/22/25 13:16 Blood Culture - Preliminary Blood - Venous No growth after 24 hours. 01/22/25 13:16 Blood Culture - Preliminary Blood - Venous No growth after 24 hours. Discharge Plan Discharge Anticipated Discharge Date/Time: 01/24/25 10:38 Patient Disposition: Home, Self-Care Discharge Diagnosis: Metabolic encephalopathy6 Referrals: Namita Acosta SERVICE PARTS COORDINATOR [Primary Care Provider, Internal Medicine] - 1 Week Discharge Medications: New nitrofurantoin monohyd/m-cryst [Macrobid] 100 mg capsule 100 mg PO BID 7 Days Qty: 14 0RF Rx Instructions: must administer with a meal/food Continued omeprazole 40 mg capsule,delayed release(DR/EC) 40 mg PO DAILY@0630 methotrexate sodium 2.5 mg tablet 25 mg PO TU prednisone 1 mg tablet 4 mg PO DAILY levothyroxine 50 mcg tablet 50 mcg PO DAILY@0600 bupropion HCl 300 mg tablet extended release 24 hr 300 mg PO DAILY@0900 ondansetron 4 mg tablet,disintegrating 4 mg PO Q8H PRN (Reason: nausea and vomiting) Qty: 10 0RF folic acid 1 mg tablet 2 mg PO DAILY doxazosin 2 mg Tablet 2 mg PO BEDTIME Qty: 30 0RF Protocol: Hold for SBP< HOLD for SBP < : 90 bupropion HCl 150 mg tablet extended release 24 hr 150 mg PO DAILY@0900 multivitamin Tablet 1 tab PO DAILY ibuprofen 200 mg Tablet 600 mg PO Q6H PRN (Reason: Pain) melatonin 10 mg Tablet 10 mg PO BEDTIME PRN (Reason: Sleep) pregabalin 200 mg capsule 200 mg PO BID oxycodone 20 mg tablet 20 mg PO Q4H PRN (Reason: pain (scale score 7-10)) Qty: 20 0RF acetaminophen [Tylenol] 325 mg Tablet 650 mg PO Q4H PRN (Reason: Moderate Pain (Scale Score 5-6)) fluticasone propionate 50 mcg/actuation [place],Suspension 1 spray INTRANASAL BID PRN (Reason: Allergy Symptoms) Rx Instructions: administer into each nostril atenolol 25 mg tablet 50 mg PO DAILY Protocol: Hold for SBP/HR < HOLD for SBP < : 90 HOLD for HR < : 60 furosemide 40 mg tablet 40 mg PO DAILY biotin 1 mg Tablet 1 mg PO DAILY methenamine hippurate 1 gram tablet 1 g PO DAILY 90 Days Qty: 90 0RF Diet: Advance to usual diet Activity on Discharge: As tolerated Stand Alone Forms: Patient Portal Discharge page Print Language: Marshallese Care Plan Goals: recovery from uti and metabolic encephalopathy Health Concerns: UTI Metabolic encephalopathy Plan of Treatment: Take Macrobid as recommended and follow up wit your doctor in a week Assessment: see above
--- NOTE | 2025-01-24 15:06 | MHC.CM.PN ---
AK ROUNDS PT NOT READY FOR DC PLAN REMAINS HOME WITH SERVICES
[2025-01-24 15:35] VITALS: BP 131/71; PULSE 70; RESP 18; TEMP 36.8; O2SAT 94
--- NOTE | 2025-01-24 15:53 | MHC.CM.PN ---
pr rounds pt not redy for dc dc plan remains home
[2025-01-24 19:38] VITALS: BP 155/72; PULSE 76; RESP 18; TEMP 36.6; O2SAT 95
[2025-01-24] MEDS: 0.9 % Sodium Chloride Flush 3 ML SYRINGE IVFLUSH (20:28)
[2025-01-25 03:49] VITALS: BP 157/69; PULSE 77; RESP 18; TEMP 36.4; O2SAT 95
[2025-01-25 07:27] VITALS: BP 154/83; PULSE 69; RESP 18; TEMP 36.4; O2SAT 96
[2025-01-25] MEDS: buPROPion HCl XL 300 MG TAB.ER.24H PO (08:14)
[2025-01-25] MEDS: oxyCODONE HCl Immed Release 5 MG TABLET 20 MG PO ×3 (08:14→21:55)
[2025-01-25] MEDS: buPROPion HCl XL 150 MG TAB.ER.24H PO (08:14)
[2025-01-25] MEDS: 0.9 % Sodium Chloride Flush 3 ML SYRINGE IVFLUSH ×3 (08:15→21:56)
--- NOTE | 2025-01-25 13:23 | HO.PM.IMPN ---
Subjective Subjective Date of Service: 01/25/25 Interval History: Nauseous this morning after breakfast otherwise no acute issues overnight Review of Systems Denies chest pain Denies shortness of breath Denies nausea vomiting diarrhea Denies fever chills Physical Exam Vital Signs: Vital Signs: Last Vital Signs Temp 97.6 F 01/25/25 07:27 Pulse 69 01/25/25 07:27 Resp 18 01/25/25 07:27 BP 154/83 H 01/25/25 07:27 Pulse Ox 96 01/25/25 07:27 O2 Del Method Room Air 01/25/25 07:27 O2 Flow Rate 1.0 01/24/25 08:00 BMI result Body Mass Index 34.3 Const: Other: Awake alert no acute distress Resp: Other: Clear to auscultation bilaterally no rales rhonchi or wheezes Cardio: Other: No S4; positive S1-S2; no S3 murmurs rubs or gallops GI: Other: Soft nontender nondistended normoactive bowel sounds Extrem: Other: No edema bilaterally Objective Data Active Medications Acetaminophen (Acetaminophen 325 Mg Tablet) 650 mg PO Q6H PRN PRN Reason: Pain, Mild 1-3,fever,headache Atenolol (Atenolol 50 Mg Tablet) 50 mg PO DAILY [facility]; Protocol Last Admin: 01/25/25 08:14 Dose: 50 mg Documented By: VALENTINE Bupropion HCl (Bupropion Hcl Xl 150 Mg Tab.Er.24h) 150 mg PO DAILY@0900 [facility] Last Admin: 01/25/25 08:14 Dose: 150 mg Documented By: VALENTINE Bupropion HCl (Bupropion Hcl Xl 300 Mg Tab.Er.24h) 300 mg PO DAILY@0900 [facility] Last Admin: 01/25/25 08:14 Dose: 300 mg Documented By: VALENTINE Calcium Carbonate (Calcium Carbonate 750 Mg Tab.Chew) 750 mg PO Q4H PRN PRN Reason: Heartburn Doxazosin Mesylate (Doxazosin Mesylate 2 Mg Tablet) 2 mg PO BEDTIME [facility]; Protocol Last Admin: 01/24/25 20:27 Dose: 2 mg Documented By: DESIRAE Enoxaparin Sodium (Enoxaparin Sodium 40 Mg/0.4 Ml Syringe) 40 mg SUBCUT Q24H [facility] Last Admin: 01/24/25 17:36 Dose: 40 mg Documented By: DAMEON Fluticasone Propionate (Fluticasone Propionate Nasal 16 Gm [place]) 1 spray NOSTRIL-B BID PRN PRN Reason: Allergy Symptoms Folic Acid (Folic Acid 1 Mg Tablet) 2 mg PO DAILY [facility] Last Admin: 01/25/25 08:14 Dose: 2 mg Documented By: VALENTINE Furosemide (Furosemide 40 Mg Tablet) 40 mg PO DAILY [facility]; Protocol Last Admin: 01/25/25 08:14 Dose: 40 mg Documented By: VALENTINE Levothyroxine Sodium (Levothyroxine Sodium 50 Mcg Tablet) 50 mcg PO DAILY@0600 [facility] Last Admin: 01/25/25 06:13 Dose: 50 mcg Documented By: DESIRAE Magnesium Hydroxide (Milk Of Magnesia 30 Ml Oral.Susp) 30 ml PO DAILY PRN PRN Reason: Constipation Melatonin (Melatonin 3 Mg Tablet) 6 mg PO BEDTIME PRN PRN Reason: Insomnia Melatonin (Melatonin 3 Mg Tablet) 9 mg PO BEDTIME PRN PRN Reason: Sleep Meropenem (Meropenem 1 Gm Vial) 1 gm IVPUSH Q8H [facility] Last Admin: 01/25/25 08:14 Dose: 1 gm Documented By: VALENTINE Multivitamins/Vitamin C (Multivitamin Tablet) 1 tab PO DAILY [facility] Last Admin: 01/25/25 08:14 Dose: 1 tab Documented By: VALENTINE Omeprazole (Omeprazole 40 Mg Capsule.Dr) 40 mg PO DAILY@0630 [facility] Last Admin: 01/25/25 06:13 Dose: 40 mg Documented By: DESIRAE Ondansetron HCl (Ondansetron Hcl 4 Mg/2 Ml Vial) 4 mg IVPUSH Q6H PRN PRN Reason: Nausea and Vomiting Last Admin: 01/25/25 09:13 Dose: 4 mg Documented By: VALENTINE Oxycodone HCl (Oxycodone Hcl Immed Release 5 Mg Tablet) 20 mg PO Q4H PRN PRN Reason: pain (scale score 7-10) Last Admin: 01/25/25 08:14 Dose: 20 mg Documented By: VALENTINE Pregabalin (Pregabalin 200 Mg Capsule) 200 mg PO BID [facility] Last Admin: 01/25/25 08:14 Dose: 200 mg Documented By: VALENTINE Sodium Chloride (0.9 % Sodium Chloride Flush 3 Ml Syringe) [facility] Last Admin: 01/25/25 08:15 Dose: 3 ml Documented By: VALENTINE Labs 01/24/25 05:52 01/24/25 05:52 Microbiology Microbiology Results: Microbiology 01/22/25 13:16 Blood Culture - Preliminary Blood - Venous No growth after 48 hours. 01/22/25 13:16 Blood Culture - Preliminary Blood - Venous No growth after 48 hours. Assessment and Plan (1) Metabolic encephalopathy: Status: Acute (2) Cellulitis: Status: Acute Plan 74-year-old female with a past medical history significant for recurrent ESBL UTIs, (lasted admit 12/16/24-12/17/2024; 12/27/24-12/31/24) PAD, and osteomyelitis, who presents with confusion from home. She states she has completed all therapies as ordered but still is getting recurrent UTIs, presently with GNR UTI 1. Acute Metabolic encephalopathy(r/t cellulitis) -d/c meropenem -start cefin this evening 2. Hypertension -controlled on atenolol 3. Rheumatoid arthritis (RA) -No acute issues, Full code Lovenox ongoing hospipitalization for uit with ecephalopathy, needing IV Abx Quality Stroke Does the patient have a stroke diagnosis?: No VTE Prior VTE?: No VTE Risk Level:: Medical - moderate - high VTE Device Contraindication: Treatment Not Indicated VTE Drug Contraindication: N/A - Med Ordered
[2025-01-25 15:30] VITALS: BP 162/74; PULSE 65; RESP 18; TEMP 36.2; O2SAT 98
[2025-01-25 20:00] VITALS: BP 150/80; PULSE 79; RESP 18; TEMP 36.6; O2SAT 97
[2025-01-25 21:26] VITALS: BP 175/80
[2025-01-25] MEDS: Milk of Magnesia 30 ML ORAL.SUSP PO (21:30)
[2025-01-26 04:00] VITALS: BP 127/60; PULSE 70; RESP 18; TEMP 36.4; O2SAT 98
[2025-01-26 07:40] VITALS: BP 130/62; PULSE 66; RESP 18; TEMP 36.3; O2SAT 96
[2025-01-26] MEDS: 0.9 % Sodium Chloride Flush 3 ML SYRINGE IVFLUSH (08:04)
[2025-01-26] MEDS: buPROPion HCl XL 150 MG TAB.ER.24H PO (08:05)
[2025-01-26] MEDS: buPROPion HCl XL 300 MG TAB.ER.24H PO (08:05)
[2025-01-26] MEDS: oxyCODONE HCl Immed Release 5 MG TABLET 20 MG PO ×2 (08:05→14:30)
--- NOTE | 2025-01-26 10:54 | PM.DS ---
DS: Providers Provider Date of Service: 01/26/25 Date of admission: 01/22/25 16:54 Date of discharge: 01/26/25 Primary care physician: Namita Acosta NP Consults: 01/23/25 09:34 Consult to Wound Care Routine Consulting Provider: [facility] Reason for consultation: Cellulitis 01/24/25 07:41 Consult to Infectious Diseases Routine Consulting Provider: [facility] Disease [facility] Reason for consultation: recurent ESBL UTI, is this colonization Has provider been notified: Yes DS: Diagnosis Discharge Diagnosis (1) Metabolic encephalopathy: Status: Acute (2) Cellulitis: Status: Acute DS: Summary Hospital Course Hospital Course: Admission [facility] Complaint: Confusion 74-year-old female with a past medical history significant for recurrent ESBL UTIs, (lasted admit 12/16/24-12/17/2024; 12/27/24-12/31/24) PAD, and osteomyelitis, who presents with confusion from home. She states she has completed all therapies as ordered but still is getting recurrent UTIs despite the use of topical Estrace cream. Last admission she was treated with meropenem however thought to be colonization. Given her mental status changes in the backdrop of UTI she will be admitted for failed outpatient therapies Hospital course: 74-year-old female with a history of recurrent ESBL urinary tract infections (last admissions: 12/16/24?12/17/24 and 12/27/24?12/31/24), peripheral arterial disease, and osteomyelitis, presenting from home with confusion. She reports adherence to all prescribed therapies but continues to experience recurrent UTIs, currently with a gram-negative altaf UTI. Acute metabolic encephalopathy is likely secondary to UTI. Urine culture is positive for ESBL-producing E. coli, which is sensitive to nitrofurantoin (Macrobid); colonization remains a possibility, and the patient is not septic. She was initially treated with IV meropenem and will be transitioned to oral Macrobid to complete a total of 10 days of antibiotics. Her encephalopathy has resolved, and she is ready for discharge home. Final diagnoses: Acute toxic metabolic encephalopathy Acute UTI Time Attestation Discharge Coordination Time (in mins): 35 Quality: Safe Use of Opioids Does Pt have an Active Cancer Diagnosis on the Problem List?: No Quality: Stroke Does the patient have a stroke diagnosis?: No Physical Exam Vital Signs: Vital Signs: Last Vital Signs Temp 97.4 F 01/26/25 07:40 Pulse 66 01/26/25 07:40 Resp 18 01/26/25 07:40 BP 130/62 01/26/25 07:40 Pulse Ox 96 01/26/25 07:40 O2 Del Method Room Air 01/26/25 07:40 O2 Flow Rate 1.0 01/24/25 08:00 BMI result Body Mass Index 34.3 Const: Other: Awake alert no acute distress Resp: Other: Clear to auscultation bilaterally no rales rhonchi or wheezes Cardio: Other: No S4; positive S1-S2; no S3 murmurs rubs or gallops GI: Other: Soft nontender nondistended normoactive bowel sounds Extrem: Other: No edema bilaterally DS: Data Data Completed and Pending Completed studies during hospitalization [Text1]: Procedures Insertion of Infusion Device into Right Basilic Vein, Percutaneous Approach (11/19/24) Insertion of Infusion Device into Right Brachial Vein, Percutaneous Approach (12/27/24) Insertion of Infusion Device into Right Cephalic Vein, Percutaneous Approach (10/13/23) Labs on day of discharge: Preliminary micro results at discharge 01/22/25 13:16 Blood Culture - Preliminary Blood - Venous No growth after 48 hours. 01/22/25 13:16 Blood Culture - Preliminary Blood - Venous No growth after 48 hours. Discharge Plan Discharge Anticipated Discharge Date/Time: 01/24/25 10:38 Patient Disposition: Home, Self-Care Discharge Diagnosis: Metabolic encephalopathy6 Referrals: Namita Acosta NP [Primary Care Provider, Internal Medicine] - 1 Week Discharge Medications: New nitrofurantoin monohyd/m-cryst [Macrobid] 100 mg capsule 100 mg PO BID 7 Days Qty: 14 0RF Rx Instructions: must administer with a meal/food Continued omeprazole 40 mg capsule,delayed release(DR/EC) 40 mg PO DAILY@0630 methotrexate sodium 2.5 mg tablet 25 mg PO TU prednisone 1 mg tablet 4 mg PO DAILY levothyroxine 50 mcg tablet 50 mcg PO DAILY@0600 bupropion HCl 300 mg tablet extended release 24 hr 300 mg PO DAILY@0900 ondansetron 4 mg tablet,disintegrating 4 mg PO Q8H PRN (Reason: nausea and vomiting) Qty: 10 0RF folic acid 1 mg tablet 2 mg PO DAILY doxazosin 2 mg Tablet 2 mg PO BEDTIME Qty: 30 0RF Protocol: Hold for SBP< HOLD for SBP < : 90 bupropion HCl 150 mg tablet extended release 24 hr 150 mg PO DAILY@0900 multivitamin Tablet 1 tab PO DAILY ibuprofen 200 mg Tablet 600 mg PO Q6H PRN (Reason: Pain) melatonin 10 mg Tablet 10 mg PO BEDTIME PRN (Reason: Sleep) pregabalin 200 mg capsule 200 mg PO BID oxycodone 20 mg tablet 20 mg PO Q4H PRN (Reason: pain (scale score 7-10)) Qty: 20 0RF acetaminophen [Tylenol] 325 mg Tablet 650 mg PO Q4H PRN (Reason: Moderate Pain (Scale Score 5-6)) fluticasone propionate 50 mcg/actuation [place],Suspension 1 spray INTRANASAL BID PRN (Reason: Allergy Symptoms) Rx Instructions: administer into each nostril atenolol 25 mg tablet 50 mg PO DAILY Protocol: Hold for SBP/HR < HOLD for SBP < : 90 HOLD for HR < : 60 furosemide 40 mg tablet 40 mg PO DAILY biotin 1 mg Tablet 1 mg PO DAILY methenamine hippurate 1 gram tablet 1 g PO DAILY 90 Days Qty: 90 0RF Discharge Orders: Discharge Order (Routine); Ordered 01/26/25 Ordered By: Rogers Guillermo Diet: Advance to usual diet Activity on Discharge: As tolerated Stand Alone Forms: Patient Portal Discharge page Print Language: Upper Sorbian Care Plan Goals: recovery from uti and metabolic encephalopathy Health Concerns: UTI Metabolic encephalopathy Plan of Treatment: Take Macrobid as recommended and follow up wit your doctor in a week Assessment: see above
--- NOTE | 2025-01-26 12:53 | MHC.CM.PN ---
PT IS CLEARED TO DC HOME WITH RESUMPTION OF SERVICES TODAY CM SPOKE TO PTS DAUGHTER, NOA, WHO REPORTS SHE IS CONCERNED ABOUT PT HOWEVER PT IS UNWILLING TO MAKE CHANGES SHE SAYS ONE OF THE NURSES THAT VISITS HER AT HOME FILED AN ELDER AT RISK, AND HER CM IS [facility] [phone] SHE SAYS HER MOTHER GOT DEFENSIVE WHEN SHE ASKED ABOUT IT AND DENIES KNOWING WHO THIS IS, DESPITE [facility] REPORTING THEY HAVE BEEN WORKING TOGETHER FOR A FEW WEEKS SHE IS AGREEABLE TO CM CALLING [facility] ON MONDAY TO DETERMINE IF THEY ARE IN FACT WORKING TOGETHER OR IF PT WAS RESISTANT NOA ALSO REPORTS SHE IS HOPING PT CAN GET CONNECTED WITH [facility], CM SUGGESTED THIS MAY BE SOMETHING [facility] COULD ASSIST WITH SHE ALSO FEELS THE PT COULD BENEFIT FROM MH AND VNA SERVICES, SHE WOULD LIKE HER TO AGREE TO DAILY [facility] FOR MEDS, BUT DOES NOT FEEL SHE WILL RELINQUISH CONTROL OF HER PAIN MEDS SHE KNOWS PT IS GOING HOME TODAY AND CURRENT SERVICES WILL RESUME CM MET WITH PT WHO ALSO REPORTS BEING INTERESTED IN [place] SHE SAYS WHEN [facility] CAME, SHE TURNED THEM AWAY AND WAS OFFENDED CM DISCUSSED THE POTENTIAL BENEFITS OF WORKING WITH THEM, PT STATES SHE WILL SEE. SHE NOTES SHE NOW HAS EVENING HELP SHE IS PRIVATELY PAYING FOR, SHE WOULD LIKE TO BE HOME BY 1600 SO THE TECHNICAL ANALYST CAN COME TODAY SHE KNOWS [facility] WILL RESUME SERVICES AND SHE WILL NOTIFY HER OTHER PRODUCT SAFETY TECHNICIAN BLS TRANSPORT BOOKED FOR 1500 HOURS
[2025-01-26 15:07] VITALS: BP 151/67; PULSE 61; RESP 18; TEMP 36.3; O2SAT 98
--- NOTE | 2025-01-26 23:31 | W.PM.IDCN ---
History of Present Illness Data of Consult Service Date: 01/25/25 Requesting physician: Rogers Guillermo Primary Care Provider: Namita Acosta NP HPI Reason for consult: encephalopathy,confusion She presents with confusion and encephalopathy again. 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 Review of Systems Review of Systems: Yes all other systems are reviewed and are negative PMFSH Past Medical History Medical History Hypertension History of ESBL E. coli infection Oxygen dependent Oxygen dependent Sepsis Bacteriuria Urinary tract infection due to extended-spectrum beta lactamase (ESBL) producing Escherichia coli History of ESBL E. coli infection Osteomyelitis COPD (chronic obstructive pulmonary disease) Rheumatoid lung Hypothyroidism Congestive heart failure Fibromyalgia HTN (hypertension) Depression Rheumatoid arthritis Family History Family History Father No problems noted. Other Heart disease Family history: reviewed and not pertinent Surgical History Surgical History Hx of prior ablation treatment Knee joint replacement status Social History Social History Household Members: None Household Members Other:: 0 Housing: Apartment Do you presently have visiting nurse or other home services: Yes (FOLD SKIVER's daily and VNA) Alcohol intake: never Comment: bedside commode Patient Tobacco Use Status: Former Tobacco user Tobacco use type: Cigarette e-Cigarette/Vaping Use: Never Used Second Hand Smoke Exposure: No Advance Directives Date on File: 10/19/23 service: No Meds Allergies Allergy/AdvReac Type Severity Reaction Status Date / Time lisinopril (LISINOPRIL) Allergy Severe ANAPHYLAXIS Verified 01/22/25 12:42 Sulfa (Sulfonamide Allergy Intermediate RASH Verified 01/22/25 12:42 Antibiotics) (SULFA (SULFONAMIDE ANTIBIOTICS)) tramadol (TRAMADOL) Allergy Intermediate RASH Verified 01/22/25 12:42 Clievgx-REM-EsE Reductase Allergy Rash Verified 01/22/25 12:42 Inhibitor (Ngffdxo-Lnw-Gxy Reductase Inhibitor) hydrochlorothiazide (HCTZ) AdvReac Unknown ABNORMAL Verified 01/22/25 12:42 LABS? Home Medications ?Medication ?Instructions ?Recorded ?Confirmed ?Last Taken ?Type bupropion HCl 300 mg 24 hr tablet, 300 mg PO DAILY@0908/23/21 01/22/25 12/15/24 History extended release levothyroxine 50 mcg tablet 50 mcg PO DAILY@0608/23/21 01/22/25 12/15/24 History methotrexate sodium 2.5 mg tablet 25 mg PO TU 08/23/21 01/22/25 12/15/24 History omeprazole 40 mg capsule,delayed 40 mg PO DAILY@62908/23/21 01/22/25 12/15/24 History release prednisone 1 mg tablet 4 mg PO DAILY 08/23/21 01/22/25 12/15/24 History pregabalin 200 mg capsule 200 mg PO BID 01/07/23 01/22/25 12/15/24 History folic acid 1 mg tablet 2 mg PO DAILY 10/13/23 01/22/25 12/15/24 History bupropion HCl 150 mg 24 hr tablet, 150 mg PO DAILY@89911/25/23 01/22/25 12/15/24 History extended release acetaminophen 325 mg tablet 650 mg PO Q4H PRN Moderate Pain 03/04/24 01/22/25 Unknown History (Tylenol) (Scale Score 5-6) ibuprofen 200 mg tablet 600 mg PO Q6H PRN Pain 05/03/24 01/22/25 Unknown History melatonin 10 mg tablet 10 mg PO BEDTIME PRN Sleep 05/03/24 01/22/25 Unknown History multivitamin 1 tab PO DAILY 05/03/24 01/22/25 12/15/24 History atenolol 25 mg tablet 50 mg PO DAILY 08/29/24 01/22/25 12/15/24 History fluticasone propionate 50 1 spray intranasal BID PRN Allergy 08/29/24 01/22/25 Unknown History mcg/actuation nasal Symptoms spray,suspension biotin 1 mg tablet 1 mg PO DAILY 10/07/24 01/22/25 12/15/24 History furosemide 40 mg tablet 40 mg PO DAILY 10/07/24 01/22/25 12/15/24 History Physical Exam Vital Signs: Vital Signs: Last Vital Signs Temp 97.3 F 01/26/25 15:07 Pulse 61 01/26/25 15:07 Resp 18 01/26/25 15:07 BP 151/67 H 01/26/25 15:07 Pulse Ox 98 01/26/25 15:07 O2 Del Method Room Air 01/26/25 15:07 O2 Flow Rate 1.0 01/24/25 08:00 BMI result Body Mass Index 34.3 Const: General: cooperative HEENT: Head: Yes normal to inspection Face and sinus: Yes normal facial exam Mouth: Normal oral and palatal mucosa present Teeth and gingiva: dentition normal Eyes: General: appearance normal, both eyes and all related structures Pupils: Equal, round and reactive pupils present Resp: Effort & Inspection: normal respiratory effort Cardio: Rate: regular rate Rhythm: regular rhythm GI: Palpation (GI): Soft to palpation and nontender : General: Yes no CVA tenderness Back/Spine/Pelvis: Back: no CVA tenderness Skin: General skin exam: no rashes or lesions noted Neuro: General: moves all extremities Cranial nerves: Yes Equal, round and reactive pupils present Extrem: General: Yes normal to inspection Psych: Other: confused Results Labs 01/24/25 05:52 01/24/25 05:52 Microbiology Microbiology Results: Microbiology 01/22/25 13:16 Blood - Venous Blood Culture - Preliminary No growth after 48 hours. 01/22/25 13:16 Blood - Venous Blood Culture - Preliminary No growth after 48 hours. 01/22/25 Unknown Urine Catheterized - Straight Catheter Urine Culture - Final Escherichia coli Assessment and Plan (1) Lower extremity weakness: Status: Acute (2) Metabolic encephalopathy: Status: Acute Plan Recurrent admissions No infection,just colonization with ESBL urine macrodantin can be given for 14 d but not prophylactically as will not clear bacteria and will get resistance. Maybe VNA can check on her to help prevent repetitive hospitalizations for vague complaints. (Her urine will always probably show resistant E coli and doubt cause of confusion/complaints)
--- NOTE | 2025-02-09 07:32 | P.CDIM_ITS ---
PROVIDER RESPONSE TEXT: To clarify, the appropriate diagnosis supported by the clinical indicators: Systolic: chronic QUERY TEXT: PHYSICIAN'S DOCUMENTATION REQUEST Date of Query: 01/23/2025 08:28 AM EDT Patient Name: Alexandrea Renee Admit Date: 01/22/2025 Dear Rogers Guillermo DO, A review of the medical record indicates additional documentation may be needed. Please review below and update the documentation accordingly. Clinical Indicators: H&P 01/22/25 - PMH: Congestive heart failure Home medication: Furosemide 40 mg PO daily BNP 228.5 No edema bilaterally Please provide further specificity regarding the most likely type and acuity of CHF: Systolic Please specify if Acute, Chronic, or Acute on chronic, or Unable to determine Diastolic Please specify if Acute, Chronic, or Acute on chronic, or Unable to determine Combined Systolic/Diastolic Please specify if Acute, Chronic, or Acute on chronic, or Unable to determine Other (explain) Clinically unable to determine (explain) Thank you, Callie Mccormick, CCS, CDIS Use of terms such as suspected, likely, concern for, or probable (associated with a specific diagnosis that is being evaluated, monitored, or treated as if it exists) are acceptable and can be coded in the inpatient setting, when documented at the time of discharge. Please use your independent medical judgment in providing your response. THIS QUERY IS PART OF THE PERMANENT MEDICAL RECORD
== END 2025-01-26 16:16 | disposition home health service (06) | DRG 689 ==
LOC: HO.ED 16:42 → HO.EDOVER 17:00 → HO.S3 19:10
PROVIDERS: Physician Assistant Medical; Admitting Provider Hospitalist; Emergency Provider Emergency Medicine; PCP Nurse Practitioner Adult Health; Visit Provider Hospitalist
DX: N39.0 Urinary tract infection, site not specified (principal); G93.41 Metabolic encephalopathy; Z16.12 Extended spectrum beta lactamase (ESBL) resistance; I50.22 Chronic systolic (congestive) heart failure; M06.9 Rheumatoid arthritis, unspecified; I11.0 Hypertensive heart disease with heart failure; B96.20 Unspecified Escherichia coli [E. coli] as the cause of diseases classified elsewhere; Z87.440 Personal history of urinary (tract) infections; Z87.891 Personal history of nicotine dependence; Z79.890 Hormone replacement therapy; Z79.899 Other long term (current) drug therapy
CPT/HCPCS: 36415; 70450; 74018; 80048; 80053; 80076; 81001; 82140; 83605; 83735; 83880; 84443; 84484; 85025; 87040; 87086; 87088; 87186; 99221; 99285; J0696; J1650; J2185; J2405; J7120

== ENCOUNTER → 2025-01-22 13:28 | Outpatient (BNV) | payer MEDICARE, MEDICAID, SELFPAY | PROVIDERS: Emergency Provider Emergency Medicine; PCP Nurse Practitioner Adult Health; Visit Provider Radiology Diagnostic Radiology | DX: R41.0 Disorientation, unspecified (principal); J32.2 Chronic ethmoidal sinusitis; K59.00 Constipation, unspecified | CPT/HCPCS: 70450; 74018 ==

== ENCOUNTER → 2025-01-22 16:54 | Outpatient (BNV) | payer MEDICARE, MEDICAID, SELFPAY | PROVIDERS: Admitting Provider Hospitalist; Emergency Provider Emergency Medicine; PCP Nurse Practitioner Adult Health; Visit Provider Hospitalist | DX: G93.41 Metabolic encephalopathy (principal); L03.90 Cellulitis, unspecified | CPT/HCPCS: 99222; 99233 ==

== ENCOUNTER → 2025-01-22 16:54 | Outpatient (BNV) | payer MEDICARE, MEDICAID, SELFPAY | PROVIDERS: Admitting Provider Hospitalist; Emergency Provider Emergency Medicine; PCP Nurse Practitioner Adult Health; Visit Provider Internal Medicine | DX: R29.898 Other symptoms and signs involving the musculoskeletal system (principal); G93.41 Metabolic encephalopathy | CPT/HCPCS: 99222 ==

== ENCOUNTER 2025-02-07 02:07 | Emergency (ER) | payer MEDICARE, MEDICAID, SELFPAY ==
--- NOTE | 2025-02-07 02:25 | ECG_ITS ---
Test Reason : ABD PAIN Blood Pressure : */* mmHG Vent. Rate : 74 BPM Atrial Rate : 74 BPM P-R Int : 144 ms QRS Dur : 86 ms QT Int : 416 ms P-R-T Axes : 53 0 28 degrees QTcB Int : 461 ms Normal sinus rhythm Minimal voltage criteria for LVH, may be normal variant ( R in aVL ) Borderline ECG When compared with ECG of 27-Dec-2024 14:50, No significant change was found Referred By: Sade Villa Electronically Signed By: ZAK KWONG MD
--- NOTE | 2025-02-07 02:29 | ED.GENADULT ---
HPI - General Adult General Chief complaint: General Medical Stated complaint: VOMITING Time Seen by Provider: 02/07/25 02:17 Source: patient and EMS Mode of arrival: EMS Limitations: no limitations History of Present Illness ED Provider: Dr. Sade Villa HPI narrative: Patient comes to the emergency room complaining of nausea and vomiting. Patient states that she does not have any diarrhea, no fever chills, no abdominal pain. Patient states that she is known to have ESBL UTI . patient denies any urinary symptoms. Patient states that she has been vomiting and skipped several doses of her pain medications and is requesting to get 20 mg of oxycodone. Patient states that she is running out of her medications early. Related Data Home Medications ?Medication ?Instructions ?Recorded ?Confirmed bupropion HCl 300 mg 24 hr tablet, 300 mg PO DAILY@0900 08/23/21 01/22/25 extended release levothyroxine 50 mcg tablet 50 mcg PO DAILY@0600 08/23/21 01/22/25 methotrexate sodium 2.5 mg tablet 25 mg PO TU 08/23/21 01/22/25 omeprazole 40 mg capsule,delayed 40 mg PO DAILY@0608/23/21 01/22/25 release prednisone 1 mg tablet 4 mg PO DAILY 08/23/21 01/22/25 pregabalin 200 mg capsule 200 mg PO BID 01/07/23 01/22/25 folic acid 1 mg tablet 2 mg PO DAILY 10/13/23 01/22/25 bupropion HCl 150 mg 24 hr tablet, 150 mg PO DAILY@0900 11/25/23 01/22/25 extended release acetaminophen 325 mg tablet 650 mg PO Q4H PRN Moderate Pain 03/04/24 01/22/25 (Tylenol) (Scale Score 5-6) ibuprofen 200 mg tablet 600 mg PO Q6H PRN Pain 05/03/24 01/22/25 melatonin 10 mg tablet 10 mg PO BEDTIME PRN Sleep 05/03/24 01/22/25 multivitamin 1 tab PO DAILY 05/03/24 01/22/25 atenolol 25 mg tablet 50 mg PO DAILY 08/29/24 01/22/25 fluticasone propionate 50 1 spray intranasal BID PRN Allergy 08/29/24 01/22/25 mcg/actuation nasal Symptoms spray,suspension biotin 1 mg tablet 1 mg PO DAILY 10/07/24 01/22/25 furosemide 40 mg tablet 40 mg PO DAILY 10/07/24 01/22/25 Previous Rx's ?Medication ?Instructions ?Recorded ondansetron 4 mg disintegrating 4 mg PO Q8H PRN nausea and 08/02/23 tablet vomiting #10 tabs doxazosin 2 mg tablet 2 mg PO BEDTIME #30 tabs 10/17/23 oxycodone 20 mg tablet 20 mg PO Q4H PRN pain (scale score 02/27/24 7-10) #20 tabs methenamine hippurate 1 gram tablet 1 g PO DAILY 90 days #90 tabs 10/08/24 nitrofurantoin 100 mg PO BID 7 days #14 caps 01/24/25 monohydrate/macrocrystals 100 mg capsule (Macrobid) ondansetron 4 mg disintegrating 4 mg PO Q6H PRN nausea and 02/07/25 tablet vomiting #14 tabs Allergies Allergy/AdvReac Type Severity Reaction Status Date / Time lisinopril (LISINOPRIL) Allergy Severe ANAPHYLAXIS Verified 02/07/25 02:42 Sulfa (Sulfonamide Allergy Intermediate RASH Verified 02/07/25 02:42 Antibiotics) (SULFA (SULFONAMIDE ANTIBIOTICS)) tramadol (TRAMADOL) Allergy Intermediate RASH Verified 02/07/25 02:42 Lrogbfs-OKA-RdM Reductase Allergy Rash Verified 02/07/25 02:42 Inhibitor (Nihnolb-Uca-Frn Reductase Inhibitor) hydrochlorothiazide (HCTZ) AdvReac Unknown ABNORMAL Verified 02/07/25 02:42 LABS? Review of Systems Review of Systems: Constitutional : No Weight loss, No Fever, No Chills, No Night Sweats, No Fatigue, No Malaise ENT/Mouth : No Hearing loss, No Ear Pain, No Nasal Congestion, No Sinus Pain, No Hoarseness, No sore throat, No Rhinorrhea, No Swallowing Difficulty Eyes: No Eye Pain, No Swelling, No Redness, No Foreign Body, No Discharge, No Vision Changes Cardiovascular : No Chest Pain, No SOB, No Dyspnea on Exertion, No Orthopnea, No Edema, No Palpitations Respiratory : No Cough, No Sputum, No Wheezing, No Smoke Exposure, No Dyspnea Gastrointestinal : Complaining of nausea and vomiting, No Diarrhea, No Constipation, No abdominal Pain, No Hematochezia, No Melena Genitourinary : no irregular bleeding, No Dysuria, No Urinary Frequency, No Hematuria, No Urinary Incontinence, No Urgency, No Flank Pain, No Urinary Flow Changes, No Hesitancy Musculoskeletal : No joint pain, No Myalgias, No Joint Swelling Skin : No Skin Lesions, No rash Neuro : No Weakness, No Numbness, No Paresthesias, No Loss of Consciousness, No Dizziness, No Headache Psych : No Anxiety/Panic, No Depression, No SI/HI/AH/VH, No Social Issues, Heme/Lymph: No Bruising, No Bleeding,No Lymphadenopathy Endocrine : No Polyuria, No Polydipsia, No Temperature Intolerance [facility] Past Medical History Medical History Hypertension History of ESBL E. coli infection Oxygen dependent Oxygen dependent Sepsis Bacteriuria Urinary tract infection due to extended-spectrum beta lactamase (ESBL) producing Escherichia coli History of ESBL E. coli infection Osteomyelitis COPD (chronic obstructive pulmonary disease) Rheumatoid lung Hypothyroidism Congestive heart failure Fibromyalgia HTN (hypertension) Depression Rheumatoid arthritis Surgical History Hx of prior ablation treatment Knee joint replacement status Family History Family History Father No problems noted. Other Heart disease Social History Social History Household Members: None Household Members Other:: 0 Housing: Apartment Do you presently have visiting nurse or other home services: Yes (NEUROLOGY SPECIALIST's daily and VNA) Alcohol intake: never Comment: bedside commode Patient Tobacco Use Status: Former Tobacco user Tobacco use type: Cigarette e-Cigarette/Vaping Use: Never Used Second Hand Smoke Exposure: No Advance Directives: Yes Advance Directives on File: Yes Advance Directives Date on File: 10/19/23 Do you have a plan to hurt others: No Plan service: No Physical Exam ED Exam Exam: Appearance: Alert. Oriented X3. No acute distress. Eyes: Pupils equal, round and reactive to light. ENT: Pharynx normal. Neck: Normal inspection. Neck supple. No lymph nodes noted. No crepitus CVS: Normal heart rate and rhythm. Pulses normal. Normal S1 and S2 Respiratory: No respiratory distress. Breath sounds normal. No Wheezing. No rales Abdomen: Soft and nontender. No rigidity. No distention. Skin: Skin warm and dry. Normal skin color. Normal skin turgor. Extremities: No lower extremity edema. No Lacerations. No Rash Neuro: Oriented X 3. No motor deficit. No sensory deficit. Moving all extremities. No slurred speech. CN 2 through 12 grossly intact Psych: calm, cooperative, normal affect Vital Signs: Vital Signs - 24 hr 02/07/25 02:38 Temperature 98.2 F Pulse Rate 75 Respiratory Rate 18 Blood Pressure 189/90 H Pulse Oximetry 95 Oxygen Delivery Method Room Air BMI result Body Mass Index 32.9 Course Course Course Narrative: patient comes to emergency room complaining of nausea and vomiting. Patient states that gradually the intensity and frequency of the vomiting have decreased. Patient concerned that she may be getting a UTI all of patient's labs pending patient requesting 20 mg of oxycodone which is her scheduled dose Medications Administered Discontinued Medications Generic Name Dose Route Start Last Admin Trade Name Freq PRN Reason Stop Dose Admin Ondansetron HCl 4 mg 02/07/25 02:26 02/07/25 02:48 Ondansetron Odt 4 Mg Tab.Rapdis TRANSLINGU 02/07/25 02:27 4 mg ONCE ONE Administration Oxycodone HCl 10 mg 02/07/25 02:27 02/07/25 02:47 Oxycodone Hcl Immed Release 5 Mg Tablet PO 02/07/25 02:28 10 mg ONCE ONE Administration Medical Decision Making Medical Decision Making [facility] Narrative: my interpretation of EKG: Normal sinus rhythm, heart rate 74, no ST segment depression or elevation, no T-wave inversion, QTC 461 Here in the emergency room, patient has not had any episodes of vomiting. patient denies abdominal pain There is no significant abnormality in patient's hematology and chemistry, patient does not seem dehydrated. given patient's report that she has been running out of her medications early, and not taking her usual high dose of oxycodone, it is possible that patient's symptoms are related to narcotic withdrawal. I reviewed patient's records, patient was seen 12 days ago by Infectious Disease. Patient's urine is always going to be positive for UTI with resistant E coli, patient to be discharged on Macrobid today, there is no point of checking the urine. Patient has no signs of infection, denies urinary symptoms. today, patient has no urinary complaints. Differential Diagnosis Differential Diagnoses: The differential diagnosis associated with the presentation includes ( Viral illness, gastritis, gastroenteritis) Admission/Observation Consideration of admission/observation: Escalation of care including admission/observation considered ( given patient's recurrent visits to the hospital, observation was considered) Lab Data MDM Lab Attestation statement: I reviewed the patient's lab results. 02/07/25 02:43 02/07/25 02:43 Labs: Lab Results 02/07/25 Range/Units 02:43 WBC 7.1 (4.8-10.8) X10*3/uL RBC 4.16 L (4.20-5.50) X10*6/uL Hgb 12.3 (12.0-16.0) g/dl Hct 37.7 (37.0-47.0) % MCV 90.6 (80.0-98.0) fL MCH 29.6 (27.0-33.0) pg MCHC 32.6 (31.0-35.0) g/dl RDW 14.7 (11.0-16.0) % Plt Count 183 D (160-400) X10*3/uL MPV 9.7 (9.4-12.3) fL Immature Gran % (Auto) 0.6 H (0.0-0.4) % Neut % (Auto) 55.0 (45-73) % Lymph % (Auto) 30.4 (20-40) % [place] % (Auto) 11.1 H (2-11) % Eos % (Auto) 2.5 (0-4) % Baso % (Auto) 0.4 (0-2) % Lymph # (Auto) 2.2 (1.2-4.9) X10*3/uL [place] # (Auto) 0.8 (0.1-1.2) X10*3/uL Eos # (Auto) 0.2 (0.0-0.4) X10*3/uL Baso # (Auto) 0.0 (0.0-0.2) X10*3/uL Abs Immat Gran (auto) 0.04 H (0.00-0.03) X10*3/uL Absolute Neuts (auto) 3.9 (2.0-8.3) x10*3/uL Absolute Nucleated RBC 0.000 (0.0-0.012) X10*3/uL Nucleated RBC % (auto) 0.0 (0.0-0.2) /100WBC Sodium 145 (135-145) mmol/L Potassium 3.8 (3.3-5.1) mmol/L Chloride 112 H (96-108) mmol/L Carbon Dioxide 24 (22-29) mmol/L Anion Gap 13 (12-20) BUN 22 H (9-16) mg/dL Creatinine 1.08 (0.5-1.4) mg/dL Estim Creat Clear Calc 55.8 Estimated GFR 50 Random Glucose 86 (60-115) mg/dL Calcium 8.7 (8.4-10.2) mg/dL Magnesium 2.3 (1.6-2.6) mg/dL Total Bilirubin 0.1 (0.0-1.0) mg/dL Direct Bilirubin < 0.2 (0.0-0.5) mg/dL AST 21 (5-31) U/L ALT 15 (0-31) U/L Alkaline Phosphatase 120 H (39-117) U/L Total Protein 6.8 (6.5-8.0) g/dL Albumin 3.5 (3.5-5.0) g/dL Lipase 12 (8-78) U/L COVID-19 (KERRI) Negative (Negative) COVID-19 Clin Com See Note Influenza Type A (OCTAVIO) Negative (Negative) Influenza Type B (OCTAVIO) Negative (Negative) Influenza A & B Note See Note Independent Interpretation I performed an independent interpretation of an: EKG Discharge Plan Discharge Clinical Impression: Nausea & vomiting Patient Disposition: Home, Self-Care Instructions: Acute Nausea and Vomiting (ED) Additional Instructions: Please follow-up with your primary care physician tomorrow. If you have any worsening or new symptoms, please return to the emergency room or call 911 Prescriptions: New ondansetron 4 mg tablet,disintegrating 4 mg PO Q6H PRN (Reason: nausea and vomiting) Qty: 14 0RF No Action omeprazole 40 mg capsule,delayed release(DR/EC) 40 mg PO DAILY@0630 methotrexate sodium 2.5 mg tablet 25 mg PO TU prednisone 1 mg tablet 4 mg PO DAILY levothyroxine 50 mcg tablet 50 mcg PO DAILY@0600 bupropion HCl 300 mg tablet extended release 24 hr 300 mg PO DAILY@0900 ondansetron 4 mg tablet,disintegrating 4 mg PO Q8H PRN (Reason: nausea and vomiting) Qty: 10 0RF folic acid 1 mg tablet 2 mg PO DAILY doxazosin 2 mg Tablet 2 mg PO BEDTIME Qty: 30 0RF Protocol: Hold for SBP< HOLD for SBP < : 90 bupropion HCl 150 mg tablet extended release 24 hr 150 mg PO DAILY@0900 multivitamin Tablet 1 tab PO DAILY ibuprofen 200 mg Tablet 600 mg PO Q6H PRN (Reason: Pain) melatonin 10 mg Tablet 10 mg PO BEDTIME PRN (Reason: Sleep) pregabalin 200 mg capsule 200 mg PO BID oxycodone 20 mg tablet 20 mg PO Q4H PRN (Reason: pain (scale score 7-10)) Qty: 20 0RF acetaminophen [Tylenol] 325 mg Tablet 650 mg PO Q4H PRN (Reason: Moderate Pain (Scale Score 5-6)) fluticasone propionate 50 mcg/actuation [place],Suspension 1 spray INTRANASAL BID PRN (Reason: Allergy Symptoms) Rx Instructions: administer into each nostril atenolol 25 mg tablet 50 mg PO DAILY Protocol: Hold for SBP/HR < HOLD for SBP < : 90 HOLD for HR < : 60 furosemide 40 mg tablet 40 mg PO DAILY biotin 1 mg Tablet 1 mg PO DAILY methenamine hippurate 1 gram tablet 1 g PO DAILY 90 Days Qty: 90 0RF nitrofurantoin monohyd/m-cryst [Macrobid] 100 mg capsule 100 mg PO BID 7 Days Qty: 14 0RF Rx Instructions: must administer with a meal/food Print Language: Mohawk
[2025-02-07 02:38] VITALS: BP 160/88; BP 189/90; PULSE 73; PULSE 75; RESP 18; TEMP 36.8; O2SAT 95; O2SAT 96; BMI 32.9
[2025-02-07] MEDS: oxyCODONE HCl Immed Release 5 MG TABLET 10 MG PO (02:47)
[2025-02-07 02:48] LABS: Hematocrit 37.7 % (37.0-47.0); Hemoglobin 12.3 g/dl (12.0-16.0); Imm Gran Abs Auto 0.04 X10*3/uL (0.00-0.03); Imm Gran Pct Auto 0.6 % (0.0-0.4); Lymphocytes Absolute Auto 2.2 X10*3/uL (1.2-4.9); MANUAL DIFF FLAG NO; Mean Corpuscular HGB Conc 32.6 g/dl (31.0-35.0); Mean Corpuscular Hemoglobin 29.6 pg (27.0-33.0); Mean Corpuscular Volume 90.6 fL (80.0-98.0); NRBC Abs Auto 0.000 X10*3/uL (0.0-0.012); NRBC Pct Auto 0.0 /100WBC (0.0-0.2); Platelet Count 183 X10*3/uL (160-400); Red Blood Count 4.16 X10*6/uL (4.20-5.50); White Blood Count 7.1 X10*3/uL (4.8-10.8)
--- NOTE | 2025-02-07 02:52 | PC.NURSE ---
pt chemical cell changer into hospital attire, ekg completed, labs collected and sent, medicated per may, notified Dr. Villa pt requesting high dose of medication.
[2025-02-07 03:01] LABS: Alanine Aminotransferase 15 U/L (0-31); Albumin Level 3.5 g/dL (3.5-5.0); Alkaline Phosphatase 120 U/L (39-117); Anion Gap 13 (12-20); Aspartate Amino Transferase 21 U/L (5-31); Blood Urea Nitrogen 22 mg/dL (9-16); Calcium 8.7 mg/dL (8.4-10.2); Carbon Dioxide 24 mmol/L (22-29); Chloride 112 mmol/L (96-108); Creatinine Clr Calc Pharmacy 55.8; Estimated Glomerular Filt Rate 50; Lipase 12 U/L (8-78); Magnesium 2.3 mg/dL (1.6-2.6); Potassium 3.8 mmol/L (3.3-5.1); Sodium 145 mmol/L (135-145); Total Protein 6.8 g/dL (6.5-8.0)
[2025-02-07 03:04] LABS: IDNOW Serial# 152EDE1D; IDNOW Serial# 16C4AD1C; Influenza B2 Negative (Negative)
[2025-02-07 03:05] LABS: COVID-19 Test Negative (Negative)
--- OUTSIDE RECORDS SUMMARY | 2025-02-07 03:08 | XMS_ITS | Patient Health Record ---
Author Organization [facility] Address [address] [place] [address] Care Team Providers Care Magnetic Prospector Name Role Phone Namita Acosta NP Primary Care Provider Jose Pizarro Unavailable [phone] Allergies Allergen (clinical drug ingredient) Drug/Non Drug Allergy documented on EMR Reaction Allergy Type Onset Date Status Adhesive rash Allergy Active Fentanyl and Related rash Drug Allergy Active hydrocortisone Hydrocortisone rash Drug Allergy Active lisinopril Lisinopril anaphylaxis Drug Allergy Act shawanda Substance with 2-hptmmmh-9-methylg lutaryl-coenzyme A reductase inhibitor mechanism of action [...] day(s) Active Vitamin D (Ergocalciferol) 1.25 MG (48344 UT) TAKE 1 CAPSULE BY MOUTH 1 [...] atherosclerosis of arteries of lower limbs (disorder) (70936804025016515 ) Atherosclerosis of tribal artery of both lower extremities, with unspecified presence of clinical manifestation (I70.203) Active confirmed Problem Rheumatoid arthritis (54322844) Rheumatoid arthritis involving both feet, unspecified whether rheumatoid factor present (M06.9) Active confirmed Plan Of Treatment Pending Test Test Name Order Date [id number] SKIN/TISSUE 12/17/2021 [id number] SKIN/TISSUE 01/21/2022 [id number] SKIN/TISSUE 05/25/2022 10916 I&D ABSCESS- SIMPLE,SINGLE 023 42736 I&D ABSCESS- SIMPLE,SINGLE 022 Insurance Providers Payer Name Payer Address Payer Phone Subscriber Number Group Number Insured Name Patient Relationship to Insured Coverage Start Date Coverage End Date [employer] Medicare [id number] [address] [address] [place] [phone] [id number] Alexandrea Renee Self - patient is the [...] ribs- CT -sameday went back 09/12/21 09/10[place] [facility] [place]
--- OUTSIDE RECORDS SUMMARY | 2025-02-07 03:08 | XMS_ITS | Patient Health Record ---
Author Organization [facility] Address [address] [facility] [address] [place] [address] Care Team Providers Care Marine Pipefitter Name Role Phone Carlos Alberto Murray Primary Care Provider Eduardo Carr MD MSc, Juju Unavailable [phone] Johnny Blanco Unavailable Unavailable Allergies Allergen (clinical [...] Status W/U Status Risk Notes Problem Sciatica (94656525) Sciatica (724.3) Active confirmed Problem Lumbosacral spondylosis without myelopathy (42394540) Lumbosacral spondylosis without myelopathy (721.3) Active confirmed Problem Muscle pain (83849130) Unspecified myalgia and myositis (729.1) Active confirmed Problem Postherpetic polyneuropathy (35064161) 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) Active confirmed Problem Lumbosacral spondylosis without myelopathy (disorder) (25718118) Spondylosis without myelopathy or radiculopathy, lumbosacral region (M47.817) Active confirmed Problem Lumbosacral spondylosis without myelopathy (18561969) Other spondylosis, lumbar region (M47.896) Active confirmed Problem High risk drug monitoring status (318970519) intermediate designer current use of opiate analgesic (Z79.891) Active confirmed Problem Lumbar spondylosis (205742838) Lumbar spondylosis (M47.816) Active confirmed Problem Left shoulder pain (0816958647) Left shoulder pain (M25.512) Active confirmed Problem Spondylosis (1141096) Spondylosis (M47.9) Active confirmed Problem Postherpetic neuralgia (8652572) Postherpetic neuralgia (B02.29) Active confirmed Problem Shoulder pain (80741341) Shoulder pain (M25.519) Active confirmed Plan Of [...] MEDICARE NGS [address] [place] [phone] [id number] Alexandrea Renee Self - patient is the insured Medical (General) History Medical History History ICD Code Depression Hypercholesterolemia Arthritis Fibromyalgia OCD peripheral neuropathy Surgical History Surgery Date(Month/Year) L knee replacement 2003 L knee revision 2010 Uterine Ablation Tubal Ligation R knee Meniscus repair 2011
[2025-02-07 04:18] VITALS: BP 180/96; PULSE 78; RESP 18; TEMP 36.8; O2SAT 95
--- NOTE | 2025-02-07 04:32 | PC.NURSE ---
plan is for pt to be discharge home, unable to get into apartment at this time, will try to find someone in the morning to let her into the building.
--- NOTE | 2025-02-07 06:34 | PC.NURSE ---
reviewed discharge instructions with pt. pt verbalized understanding, no sign of distress upon discharge, Pt taken back home by ems.
[2025-02-07 06:36] VITALS: BP 180/96; PULSE 78; RESP 18; TEMP 36.8; O2SAT 95
== END 2025-02-07 06:36 | disposition home or self-care (01) ==
PROVIDERS: Emergency Provider Emergency Medicine; PCP Nurse Practitioner Adult Health
DX: R11.2 Nausea with vomiting, unspecified (principal); M06.9 Rheumatoid arthritis, unspecified; J44.9 Chronic obstructive pulmonary disease, unspecified; I11.0 Hypertensive heart disease with heart failure; I50.9 Heart failure, unspecified; Z79.899 Other long term (current) drug therapy
CPT/HCPCS: 80048; 80076; 83690; 83735; 85025; 87502; 87635; 93005; 99283; 99284

== ENCOUNTER → 2025-02-07 02:25 | Outpatient (BNV) | payer MEDICARE, MEDICAID, SELFPAY | PROVIDERS: Emergency Provider Emergency Medicine; PCP Nurse Practitioner Adult Health; Visit Provider Internal Medicine Cardiovascular Disease | DX: R10.9 Unspecified abdominal pain (principal) | CPT/HCPCS: 93010 ==

== ENCOUNTER 2025-02-10 10:51 | Emergency (ER) | payer MEDICARE, MEDICAID, SELFPAY ==
--- NOTE | ~2025-02-10 | CT_ITS ---
EXAMINATION: CT ABDOMEN AND PELVIS WITH CONTRAST CLINICAL INFORMATION: Abdominal pain COMPARISON: 11/19/2024 and November 14, 2020 TECHNIQUE: Multidetector volumetric images were obtained from the superior aspect of the liver through the pubic symphysis following administration 85 mL of Omnipaque 350 intravenous contrast. Sagittal and coronal reformatted images were obtained on the technologist's workstation. Oral contrast: No This CT examination was performed using dose optimization techniques as appropriate, variously including the following: *Automated exposure control *Adjustment of mA and/or kV according to patient size (this includes techniques or standardized protocols for targeted exams where dose is matched to indication/reason for exam; i.e. extremities or head) *Use of iterative reconstruction technique FINDINGS: LUNG BASES: The visualized lung bases are unremarkable. LIVER, GALLBLADDER, AND BILIARY TREE: There is minimal intrahepatic biliary ductal dilation that was probably present on the prior examination. However the prior examination was noncontrasted and more difficult to characterize. There is layering high density in the gallbladder, similar to the prior examination and could represent stones or sludge. PANCREAS: Unremarkable. SPLEEN: Unremarkable. ADRENAL GLANDS: Again seen is a lipid rich adrenal adenoma on the left. Right adrenal gland is within normal limits. KIDNEYS AND URETERS: There is severe renal cortical atrophy as well as global renal atrophy on the left. There is an exophytic simple cyst. The right kidney demonstrates multiple simple renal cysts and compensatory hypertrophy. Addition, there are 3 hyperdense lesions in the lower pole the right kidney that have slowly increased in size since 2020. When compared to the prior unenhanced examination, there is no definite enhancement when comparing thin axial sections. BLADDER: Unremarkable. GASTROINTESTINAL TRACT: The small and large bowel are unremarkable. The appendix is unremarkable. ABDOMINAL WALL: No significant hernia is appreciated. LYMPH NODES: Normal. VASCULAR: The aorta and common carotid arteries are tortuous. There is moderate vascular calcification. There is mural thrombus. Aorta measures 3.5 cm anteroposterior at the diaphragmatic hiatus. The infrarenal abdominal aorta measures 4.2 cm anteroposterior just before the bifurcation. PELVIC VISCERA: Unremarkable. OSSEOUS STRUCTURES: Again seen is superior endplate fracture of T12 with moderate loss of height There is convex right curvature of the lumbar spine. There is severe degenerative changes pubic symphysis joint and moderate degeneration of the SI joints. CT/CT abdomen pelvis w IV con IMPRESSION: No acute abnormality to explain the patient's abdominal pain. There are sludge and stones in the gallbladder. There is minimal hepatic biliary ductal dilation was probably present on the prior. Multifocal abdominal aortic aneurysm with mural thrombus, one of the hiatus, and once before the bifurcation measuring up to 4.2 cm anterior posterior. Stable lipid rich left adrenal adenoma. 3 Hyperdense cysts are present in the lower pole right kidney. Stable moderate superior endplate fracture of T12. Chronic severe atrophy of the left kidney with compensatory hypertrophy of the right. Fleischner guidelines were followed. Electronically signed by: Devon Osorio MD 02/10/2025 01:50 PM EST
[2025-02-10 10:57] VITALS: BP 180/108; PULSE 71; O2SAT 94
[2025-02-10 11:00] VITALS: BP 175/89; PULSE 65; RESP 18; O2SAT 95; BMI 32.5
--- NOTE | 2025-02-10 11:42 | ED.NAVMDI ---
HPI - Nausea/Vomiting/Diarrhea General Chief complaint: Nausea/Vomiting/Diarrhea Stated complaint: N/V/D X2D PER EMS Time Seen by Provider: 02/10/25 11:31 Source: patient and EMS Mode of arrival: EMS Limitations: no limitations History of Present Illness ED Provider: HPI Narrative: 74-year-old woman presenting with nausea or vomiting, has not been able to take her oral narcotic medications because of that, was seen here approximately 4-5 days ago with similar symptoms, has a history of ESBL, states she takes oxycodone and methotrexate, took all her regular medications for blood pressure but unable to tolerate narcotics now presenting with worsening back and shoulder pain continues to have nausea and vomiting, no fevers or chills reported no dysuria Related Data Home Medications ?Medication ?Instructions ?Recorded ?Confirmed bupropion HCl 300 mg 24 hr tablet, 300 mg PO DAILY@0900 08/23/21 01/22/25 extended release levothyroxine 50 mcg tablet 50 mcg PO DAILY@0608/23/21 01/22/25 methotrexate sodium 2.5 mg tablet 25 mg PO TU 08/23/21 01/22/25 omeprazole 40 mg capsule,delayed 40 mg PO DAILY@0608/23/21 01/22/25 release prednisone 1 mg tablet 4 mg PO DAILY 08/23/21 01/22/25 pregabalin 200 mg capsule 200 mg PO BID 01/07/23 01/22/25 folic acid 1 mg tablet 2 mg PO DAILY 10/13/23 01/22/25 bupropion HCl 150 mg 24 hr tablet, 150 mg PO DAILY@0900 11/25/23 01/22/25 extended release acetaminophen 325 mg tablet 650 mg PO Q4H PRN Moderate Pain 03/04/24 01/22/25 (Tylenol) (Scale Score 5-6) ibuprofen 200 mg tablet 600 mg PO Q6H PRN Pain 05/03/24 01/22/25 melatonin 10 mg tablet 10 mg PO BEDTIME PRN Sleep 05/03/24 01/22/25 multivitamin 1 tab PO DAILY 05/03/24 01/22/25 atenolol 25 mg tablet 50 mg PO DAILY 08/29/24 01/22/25 fluticasone propionate 50 1 spray intranasal BID PRN Allergy 08/29/24 01/22/25 mcg/actuation nasal Symptoms spray,suspension biotin 1 mg tablet 1 mg PO DAILY 10/07/24 01/22/25 furosemide 40 mg tablet 40 mg PO DAILY 10/07/24 01/22/25 Previous Rx's ?Medication ?Instructions ?Recorded ondansetron 4 mg disintegrating 4 mg PO Q8H PRN nausea and 08/02/23 tablet vomiting #10 tabs doxazosin 2 mg tablet 2 mg PO BEDTIME #30 tabs 10/17/23 oxycodone 20 mg tablet 20 mg PO Q4H PRN pain (scale score 02/27/24 7-10) #20 tabs methenamine hippurate 1 gram tablet 1 g PO DAILY 90 days #90 tabs 10/08/24 nitrofurantoin 100 mg PO BID 7 days #14 caps 01/24/25 monohydrate/macrocrystals 100 mg capsule (Macrobid) ondansetron 4 mg disintegrating 4 mg PO Q6H PRN nausea and 02/07/25 tablet vomiting #14 tabs ondansetron 4 mg disintegrating 4 mg PO Q8H PRN nausea and 02/10/25 tablet vomiting #4 tabs sucralfate 1 gram tablet (Carafate) 1 g PO Q6H 7 days #28 tabs 02/10/25 Allergies Allergy/AdvReac Type Severity Reaction Status Date / Time lisinopril (LISINOPRIL) Allergy Severe ANAPHYLAXIS Verified 02/10/25 11:02 Sulfa (Sulfonamide Allergy Intermediate RASH Verified 02/10/25 11:02 Antibiotics) (SULFA (SULFONAMIDE ANTIBIOTICS)) tramadol (TRAMADOL) Allergy Intermediate RASH Verified 02/10/25 11:02 Zeyvmdj-KIN-HnW Reductase Allergy Rash Verified 02/10/25 11:02 Inhibitor (Vylqahx-Lll-Rwf Reductase Inhibitor) hydrochlorothiazide (HCTZ) AdvReac Unknown ABNORMAL Verified 02/10/25 11:02 LABS? Review of Systems Constitutional: Constitutional: Reports as per [facility] Past Medical History Medical History Hypertension History of ESBL E. coli infection Oxygen dependent Oxygen dependent Sepsis Bacteriuria Urinary tract infection due to extended-spectrum beta lactamase (ESBL) producing Escherichia coli History of ESBL E. coli infection Osteomyelitis COPD (chronic obstructive pulmonary disease) Rheumatoid lung Hypothyroidism Congestive heart failure Fibromyalgia HTN (hypertension) Depression Rheumatoid arthritis Surgical History Hx of prior ablation treatment Knee joint replacement status Family History Family History Father No problems noted. Other Heart disease Social History Social History Household Members: None Household Members Other:: 0 Housing: Apartment Do you presently have visiting nurse or other home services: Yes ([employer] daily and VNA) Alcohol intake: never Comment: bedside commode Patient Tobacco Use Status: Former Tobacco user Tobacco use type: Cigarette Smoked in Last 30 Days: No e-Cigarette/Vaping Use: Never Used Second Hand Smoke Exposure: No Use of substances other than those prescribed or required for medical reasons: No Advance Directives: Yes Advance Directives on File: Yes Advance Directives Date on File: 10/19/23 Do you have a plan to hurt others: No Plan service: No Physical Exam Exam: Exam: General: looks age appropriate PERRLA, EOMI, MMM, Neck: Supple, no LAD CV: RRR, no obvious murmurs appreciated Resp: ?No wheezing rales rhonchi no stridor moving air well Abd: ?Bowel sounds are present, epigastric tenderness, right mid quadrant tenderness as well no rebound no rigidity MSK: FROM, strength 5/5 all extremities Skin: Warm, dry, intact, Neuro: ?Alert and oriented x3, moving upper and lower extremities symmetrically, no obvious facial asymmetry noted, cranial nerves 2-12 intact Vital Signs: Vital Signs: Last Vital Signs Pulse 65 02/10/25 11:00 Resp 18 02/10/25 11:00 BP 175/89 H 02/10/25 11:00 Pulse Ox 95 02/10/25 11:00 O2 Del Method Room Air 02/10/25 11:00 BMI result Body Mass Index 32.5 Medications Administered Discontinued Medications Generic Name Dose Route Start Last Admin Trade Name Freq PRN Reason Stop Dose Admin Famotidine 20 mg 02/10/25 11:51 02/10/25 12:23 Famotidine/Pf 20 Mg/2 Ml Vial IVPUSH 02/10/25 11:52 20 mg ONCE ONE Administration Hydromorphone HCl 0.5 mg 02/10/25 11:51 02/10/25 12:25 Hydromorphone Hcl 0.5 Mg/0.5 Ml Syringe IVPUSH 02/10/25 11:52 0.5 mg ONCE ONE Administration Protocol Sodium Chloride 1,000 mls @ 999 mls/hr 02/10/25 12:00 02/10/25 12:25 Ns IV 02/10/25 13:00 999 mls/hr .Q1H1M EUGENIO Administration Iohexol 100 ml 02/10/25 13:06 02/10/25 13:06 Iohexol 350 Mg/Ml 100 Ml Infus..Btl IV 02/10/25 13:07 85 ml ONCE ONE Administration Medical Decision Making Medical Decision Making MDM Narrative: 11:57 AM 02/10/2025 (Dr. Tex Pollard): Patient's 2nd visit to the ER in under a week with nausea and vomiting, now likely a degree of opiate withdrawal unable to take her pain medications, we will image her abdomen to evaluate for any abdominal pathology that may be causing her symptoms, disposition to be determined, she has a history of your SBO colonization, no urinary symptoms we will hold off on that exam 2:20 PM 02/10/2025 (Dr. Tex Pollard): discussed CT findings, patient is aware of aneurysm on prior CTs, we will provide her oral p.o. meds discussed with the patient the no indication for admission, she declined rehab placement states she has caretakers at home and we will discharge Differential Diagnosis Differential Diagnoses: The differential diagnosis associated with the presentation includes ( Cholecystitis, pancreatitis, hepatitis, gastritis, cholangitis, choledocholithiasis, SBO, ACS) Admission/Observation Consideration of admission/observation: Escalation of care including admission/observation considered Lab Data [facility] Lab Attestation statement: I reviewed the patient's lab results. 02/10/25 12:19 02/10/25 12:19 Labs: Lab Results 02/10/25 Range/Units 12:19 WBC 7.0 (4.8-10.8) X10*3/uL RBC 4.50 (4.20-5.50) X10*6/uL Hgb 13.6 (12.0-16.0) g/dl Hct 41.3 (37.0-47.0) % MCV 91.8 (80.0-98.0) fL MCH 30.2 (27.0-33.0) pg MCHC 32.9 (31.0-35.0) g/dl RDW 14.7 (11.0-16.0) % Plt Count 170 (160-400) X10*3/uL MPV 10.3 (9.4-12.3) fL Immature Gran % (Auto) 0.3 (0.0-0.4) % Neut % (Auto) 81.6 H (45-73) % Lymph % (Auto) 12.4 L (20-40) % [place] % (Auto) 3.8 (2-11) % Eos % (Auto) 1.6 (0-4) % Baso % (Auto) 0.3 (0-2) % Lymph # (Auto) 0.9 L (1.2-4.9) X10*3/uL [place] # (Auto) 0.3 (0.1-1.2) X10*3/uL Eos # (Auto) 0.1 (0.0-0.4) X10*3/uL Baso # (Auto) 0.0 (0.0-0.2) X10*3/uL Abs Immat Gran (auto) 0.02 (0.00-0.03) X10*3/uL Absolute Neuts (auto) 5.7 (2.0-8.3) x10*3/uL Absolute Nucleated RBC 0.000 (0.0-0.012) X10*3/uL Nucleated RBC % (auto) 0.0 (0.0-0.2) /100WBC Sodium 143 (135-145) mmol/L Potassium 4.0 (3.3-5.1) mmol/L Chloride 111 H (96-108) mmol/L Carbon Dioxide 21 L (22-29) mmol/L Anion Gap 15 (12-20) BUN 15 (9-16) mg/dL Creatinine 1.12 (0.5-1.4) mg/dL Estim Creat Clear Calc 53.4 Estimated GFR 48 Random Glucose 84 (60-115) mg/dL Calcium 9.4 D (8.4-10.2) mg/dL Total Bilirubin 0.4 (0.0-1.0) mg/dL AST 24 (5-31) U/L ALT 18 (0-31) U/L Alkaline Phosphatase 125 H (39-117) U/L Total Protein 7.8 (6.5-8.0) g/dL Albumin 4.1 (3.5-5.0) g/dL Radiology Impression Discussion of test interpretation with radiology: I have reviewed the radiologist's reading. Radiologist Impression: CT/CT abdomen pelvis w IV con IMPRESSION: No acute abnormality to explain the patient's abdominal pain. There are sludge and stones in the gallbladder. There is minimal hepatic biliary ductal dilation was probably present on the prior. Multifocal abdominal aortic aneurysm with mural thrombus, one of the hiatus, and once before the bifurcation measuring up to 4.2 cm anterior posterior. Stable lipid rich left adrenal adenoma. 3 Hyperdense cysts are present in the lower pole right kidney. Stable moderate superior endplate fracture of T12. Chronic severe atrophy of the left kidney with compensatory hypertrophy of the right. External Record Review External record reviewed: Inpatient record Tests considered The following testing was considered but not selected: urinalysis Chronic Conditions Patient?s care impacted by: Other ( rheumatoid arthritis, chronic pain) Critical Care Time Critical Care Time Critical Care Time: Yes Total Critical Care Time: 35 Attestation: Time is exclusive of separately billable procedures. Time includes: direct patient care, patient reassessment, coordination of patient care, interpretation of data (laboratory data, pulse oximetry, arterial blood gases and chest xrays), review of patient's medical records, medical consultation and documentation of patient care. Procedures excluded from critical care time: central intravenous line placement and electrocardiography. Discharge Plan Discharge Clinical Impression: Increased nausea and vomiting, Opiate withdrawal, Chronic pain Patient Disposition: Home, Self-Care Additional Instructions: As discussed cat scan did not reveal acute changes except they as you are aware you have abdominal aneurysm that is fairly stable on these needs to be monitored by a PCP, on discharge I am providing you with 10 mg of long-acting oxycodone and immediate release oxycodone, so be mindful of that when you take pain medications at home give it a few hours until your next dose, I would like you to take Carafate 1 pill 20 minutes before any meals but you need to make sure your hydrating with either with soups or porridge or anything else but did not take her medications on empty stomach, please make an appointment to follow up with the PCP as discussed you are having recurrent GI symptoms and I would recommend that you have GI referral and endoscopy Prescriptions: New sucralfate [Carafate] 1 gram tablet 1 g PO Q6H 7 Days Qty: 28 0RF ondansetron 4 mg tablet,disintegrating 4 mg PO Q8H PRN (Reason: nausea and vomiting) Qty: 4 0RF No Action omeprazole 40 mg capsule,delayed release(DR/EC) 40 mg PO DAILY@0630 methotrexate sodium 2.5 mg tablet 25 mg PO TU prednisone 1 mg tablet 4 mg PO DAILY levothyroxine 50 mcg tablet 50 mcg PO DAILY@0600 bupropion HCl 300 mg tablet extended release 24 hr 300 mg PO DAILY@0900 ondansetron 4 mg tablet,disintegrating 4 mg PO Q8H PRN (Reason: nausea and vomiting) Qty: 10 0RF folic acid 1 mg tablet 2 mg PO DAILY doxazosin 2 mg Tablet 2 mg PO BEDTIME Qty: 30 0RF Protocol: Hold for SBP< HOLD for SBP < : 90 bupropion HCl 150 mg tablet extended release 24 hr 150 mg PO DAILY@0900 multivitamin Tablet 1 tab PO DAILY ibuprofen 200 mg Tablet 600 mg PO Q6H PRN (Reason: Pain) melatonin 10 mg Tablet 10 mg PO BEDTIME PRN (Reason: Sleep) ondansetron 4 mg tablet,disintegrating 4 mg PO Q6H PRN (Reason: nausea and vomiting) Qty: 14 0RF pregabalin 200 mg capsule 200 mg PO BID oxycodone 20 mg tablet 20 mg PO Q4H PRN (Reason: pain (scale score 7-10)) Qty: 20 0RF acetaminophen [Tylenol] 325 mg Tablet 650 mg PO Q4H PRN (Reason: Moderate Pain (Scale Score 5-6)) fluticasone propionate 50 mcg/actuation [place],Suspension 1 spray INTRANASAL BID PRN (Reason: Allergy Symptoms) Rx Instructions: administer into each nostril atenolol 25 mg tablet 50 mg PO DAILY Protocol: Hold for SBP/HR < HOLD for SBP < : 90 HOLD for HR < : 60 furosemide 40 mg tablet 40 mg PO DAILY biotin 1 mg Tablet 1 mg PO DAILY methenamine hippurate 1 gram tablet 1 g PO DAILY 90 Days Qty: 90 0RF nitrofurantoin monohyd/m-cryst [Macrobid] 100 mg capsule 100 mg PO BID 7 Days Qty: 14 0RF Rx Instructions: must administer with a meal/food Print Language: Ethiopian
[2025-02-10 12:25] LABS: MANUAL DIFF FLAG NO
[2025-02-10 12:31] LABS: Hematocrit 41.3 % (37.0-47.0); Hemoglobin 13.6 g/dl (12.0-16.0); Imm Gran Abs Auto 0.02 X10*3/uL (0.00-0.03); Imm Gran Pct Auto 0.3 % (0.0-0.4); Lymphocytes Absolute Auto 0.9 X10*3/uL (1.2-4.9); Mean Corpuscular HGB Conc 32.9 g/dl (31.0-35.0); Mean Corpuscular Hemoglobin 30.2 pg (27.0-33.0); Mean Corpuscular Volume 91.8 fL (80.0-98.0); NRBC Abs Auto 0.000 X10*3/uL (0.0-0.012); NRBC Pct Auto 0.0 /100WBC (0.0-0.2); Platelet Count 170 X10*3/uL (160-400); Red Blood Count 4.50 X10*6/uL (4.20-5.50); White Blood Count 7.0 X10*3/uL (4.8-10.8)
[2025-02-10 12:40] LABS: Alanine Aminotransferase 18 U/L (0-31); Albumin Level 4.1 g/dL (3.5-5.0); Alkaline Phosphatase 125 U/L (39-117); Anion Gap 15 (12-20); Aspartate Amino Transferase 24 U/L (5-31); Blood Urea Nitrogen 15 mg/dL (9-16); Calcium 9.4 mg/dL (8.4-10.2); Carbon Dioxide 21 mmol/L (22-29); Chloride 111 mmol/L (96-108); Creatinine Clr Calc Pharmacy 53.4; Estimated Glomerular Filt Rate 48; Potassium 4.0 mmol/L (3.3-5.1); Sodium 143 mmol/L (135-145); Total Protein 7.8 g/dL (6.5-8.0)
[2025-02-10] MEDS: iohexoL 350 MG/ML 100 ML INFUS..BTL IV (13:06)
[2025-02-10] MEDS: oxyCODONE HCl ER 10 MG TAB.ER.12H PO (14:28)
[2025-02-10] MEDS: oxyCODONE HCl Immed Release 5 MG TABLET PO (14:28)
[2025-02-10] MEDS: Sucralfate Oral Suspension 1 GM/10 ML ORAL.SUSP PO (14:28)
[2025-02-10 15:00] VITALS: BP 147/76; PULSE 65; RESP 16; TEMP 36.7; O2SAT 96
[2025-02-10] MEDS: oxyCODONE HCl Immed Release 5 MG TABLET 10 MG PO (16:55)
[2025-02-10 19:42] VITALS: BP 144/55; PULSE 81; RESP 16; TEMP 37.5; O2SAT 96
[2025-02-10] MEDS: oxyCODONE HCl Immed Release 5 MG TABLET 20 MG PO (20:11)
[2025-02-10 20:42] VITALS: BP 144/55; PULSE 81; RESP 16; TEMP 37.5; O2SAT 96
== END 2025-02-10 20:43 | disposition home or self-care (01) ==
PROVIDERS: Emergency Provider Emergency Medicine; PCP Nurse Practitioner Adult Health
DX: F11.23 Opioid dependence with withdrawal (principal); R11.2 Nausea with vomiting, unspecified; R19.7 Diarrhea, unspecified; R10.9 Unspecified abdominal pain; G89.29 Other chronic pain; Z79.899 Other long term (current) drug therapy
CPT/HCPCS: 36415; 74177; 80053; 85025; 96361; 96374; 96375; 99284; J1171; J1308; Q9967

== ENCOUNTER → 2025-02-10 11:51 | Outpatient (BNV) | payer MEDICARE, MEDICAID, SELFPAY | PROVIDERS: Emergency Provider Emergency Medicine; Visit Provider Radiology Diagnostic Radiology | DX: I71.40 Abdominal aortic aneurysm, without rupture, unspecified (principal); D35.02 Benign neoplasm of left adrenal gland; N28.1 Cyst of kidney, acquired | CPT/HCPCS: 74177 ==

== ENCOUNTER 2025-02-19 07:49 | Inpatient (IN) | payer MEDICARE, MEDICAID, SELFPAY ==
[2025-02-19] VITALS (12 sets, daily range): BP systolic 160–194; BP diastolic 88–118; PULSE 72–118; RESP 14–18; TEMP 36.4–37.1; O2SAT 93–97; BMI 31.3; BMI 31.4
--- NOTE | 2025-02-19 08:00 | ED.GENADULT ---
HPI - General Adult General Chief complaint: Urogenital-Female Stated complaint: ? UTI,H/O Time Seen by Provider: 02/19/25 07:59 Source: patient and EMS Mode of arrival: EMS Limitations: physical limitation (patient confused) History of Present Illness ED Provider: Daniela Lentz PA-C HPI narrative: Patient is a 75 year old assigned female at with a history of ESBL UTI, PAD, COPD, HTN, fibromyalgia, depression, CHF, and RA presenting to the emergency department today with confusion and concern for UTI. Patient states that she has felt generally unwell and has had increased urinary frequency with foul smelling urine - which she states is concerning for UTI. Patient's daughter states that she is concerned the patient does not have capacity to make her own decisions anymore and she would like to have her evaluated for decision making capability while she is at the hospital. Patient denies any other complaints at this time. Related Data Home Medications ?Medication ?Instructions ?Recorded ?Confirmed bupropion HCl 300 mg 24 hr tablet, 300 mg PO DAILY@0908/23/21 01/22/25 extended release levothyroxine 50 mcg tablet 50 mcg PO DAILY@59908/23/21 01/22/25 methotrexate sodium 2.5 mg tablet 25 mg PO TU 08/23/21 01/22/25 omeprazole 40 mg capsule,delayed 40 mg PO DAILY@62908/23/21 01/22/25 release prednisone 1 mg tablet 4 mg PO DAILY 08/23/21 01/22/25 pregabalin 200 mg capsule 200 mg PO BID 01/07/23 01/22/25 folic acid 1 mg tablet 2 mg PO DAILY 10/13/23 01/22/25 bupropion HCl 150 mg 24 hr tablet, 150 mg PO DAILY@0911/25/23 01/22/25 extended release acetaminophen 325 mg tablet 650 mg PO Q4H PRN Moderate Pain 03/04/24 01/22/25 (Tylenol) (Scale Score 5-6) ibuprofen 200 mg tablet 600 mg PO Q6H PRN Pain 05/03/24 01/22/25 melatonin 10 mg tablet 10 mg PO BEDTIME PRN Sleep 05/03/24 01/22/25 multivitamin 1 tab PO DAILY 05/03/24 01/22/25 atenolol 25 mg tablet 50 mg PO DAILY 08/29/24 01/22/25 fluticasone propionate 50 1 spray intranasal BID PRN Allergy 08/29/24 01/22/25 mcg/actuation nasal Symptoms spray,suspension biotin 1 mg tablet 1 mg PO DAILY 10/07/24 01/22/25 furosemide 40 mg tablet 40 mg PO DAILY 10/07/24 01/22/25 cholecalciferol (vitamin D3) 25 25 mcg PO DAILY 02/19/25 mcg (1,000 unit) capsule Previous Rx's ?Medication ?Instructions ?Recorded doxazosin 2 mg tablet 2 mg PO BEDTIME #30 tabs 10/17/23 oxycodone 20 mg tablet 20 mg PO Q4H PRN pain (scale score 02/27/24 7-10) #20 tabs methenamine hippurate 1 gram tablet 1 g PO DAILY 90 days #90 tabs 10/08/24 Allergies Allergy/AdvReac Type Severity Reaction Status Date / Time lisinopril (LISINOPRIL) Allergy Severe ANAPHYLAXIS Verified 02/19/25 07:56 Sulfa (Sulfonamide Allergy Intermediate RASH Verified 02/19/25 07:56 Antibiotics) (SULFA (SULFONAMIDE ANTIBIOTICS)) tramadol (TRAMADOL) Allergy Intermediate RASH Verified 02/19/25 07:56 Axgmuty-MDG-EqQ Reductase Allergy Rash Verified 02/19/25 07:56 Inhibitor (Nbrgiyl-Ehw-Lmz Reductase Inhibitor) hydrochlorothiazide (HCTZ) AdvReac Unknown ABNORMAL Verified 02/19/25 07:56 LABS? Review of Systems Constitutional: Constitutional: Reports as per HPI Eyes: Eyes: Reports as per HPI ENT: Reports as per HPI Cardiovascular: Cardiovascular: Reports as per HPI Respiratory: Respiratory: Reports as per HPI Gastrointestinal: Gastrointestinal: Reports as per HPI Genitourinary: Genitourinary: Reports as per HPI Musculoskeletal: Musculoskeletal: Reports as per HPI Integumentary/Breasts: Skin/Breast: Reports as per HPI Neurologic: Reports as per HPI Psychiatric: Psychiatric: Reports as per HPI Endocrine: Endocrine: Reports as per HPI Hematologic/Lymphatic: Hematologic/Lymphatic: Reports as per HPI Allergic/Immunologic: Allergic/Immunologic: Reports as per HPI [facility] Past Medical History Attestation statement: The following information was validated with the patient. (patient's daughter validated all information) Source: old records reviewed, obtained from family (patient's daughter provided additional history and confirmed the history provided by the patient. ) and nursing notes reviewed Medical History (Updated 02/19/25 @ 12:36 by DILIP Magallanes) Hypertension Oxygen dependent Urinary tract infection due to extended-spectrum beta lactamase (ESBL) producing Escherichia coli Osteomyelitis COPD (chronic obstructive pulmonary disease) Hypothyroidism Congestive heart failure Fibromyalgia Depression Rheumatoid arthritis Surgical History Hx of prior ablation treatment Knee joint replacement status Family History Family History Father No problems noted. Other Heart disease Social History Social History Household Members: None Household Members Other:: 0 Housing: Apartment Do you presently have visiting nurse or other home services: Yes ([employer] daily and [facility]) Alcohol intake: never Comment: bedside commode Patient Tobacco Use Status: Former Tobacco user Tobacco use type: Cigarette Smoked in Last 30 Days: No e-Cigarette/Vaping Use: Never Used Second Hand Smoke Exposure: No Use of substances other than those prescribed or required for medical reasons: No Advance Directives: Yes Advance Directives on File: Yes Advance Directives Date on File: 10/19/23 Do you have a plan to hurt others: No Plan service: No Physical Exam ED Vital Signs: Vital Signs - 24 hr 02/19/25 07:55 02/19/25 10:13 Temperature 98.8 F 98.8 F Pulse Rate 99 89 Respiratory Rate 18 18 Blood Pressure 187/108 H 188/115 H Pulse Oximetry 93 94 Oxygen Delivery Method Room Air Room Air BMI result Body Mass Index 31.3 Const General: cooperative, no acute distress, alert and awake Nutritional Appearance: well nourished Orientation/consciousness: oriented to person and oriented to place HENAR Head: Yes normal to inspection and Yes atraumatic Ears: hearing grossly normal bilaterally and external ears normal General nose exam: Normal external nose present, no nasal discharge noted and no epistaxis Face and sinus: Yes normal facial exam, No abrasion and No laceration Mouth: Normal oral and palatal mucosa present, no drooling and no muffled voice Eyes General: appearance normal, both eyes and all related structures Periorbital: periorbital findings normal Eyelids: Yes eyelids normal Conjunctivae: conjunctivae normal Pupils: Equal, round and reactive pupils present EOM: EOMs intact bilaterally Neck Neck: Yes normal visual inspection and Yes full ROM Resp Effort & Inspection: normal respiratory effort and able to speak in complete sentences Neuro Other: patient confused General: oriented to person, oriented to place, moves all extremities and CN's II-XI intact bilaterally Cranial nerves: Yes Equal, round and reactive pupils present Extrem General: Yes normal to inspection, Yes full ROM and Yes capillary refill normal Psych Appearance: grossly normal Mental Status: mental status grossly normal Affect: normal affect Attitude: cooperative Thought process: Normal thought process present Thought content: Normal thought content present Insight: Good insight present (Psych) Medications Administered Generic Name Dose Route Start Last Admin Trade Name Freq PRN Reason Stop Dose Admin Enoxaparin Sodium 40 mg 02/19/25 12:00 02/19/25 12:11 Enoxaparin Sodium 40 Mg/0.4 Ml Syringe SUBCUT 40 mg Q24H EUGENIO Administration Discontinued Medications Generic Name Dose Route Start Last Admin Trade Name Freq PRN Reason Stop Dose Admin Atenolol 25 mg 02/19/25 12:04 02/19/25 12:10 Atenolol 25 Mg Tablet PO 02/19/25 12:05 25 mg ONCE ONE Administration Protocol Ertapenem 1 gm/ Sodium 50 mls @ 100 mls/hr 02/19/25 08:04 02/19/25 09:42 Chloride IV 02/19/25 08:33 Infused ONCE ONE Infusion Sodium Chloride 1,000 mls @ 999 mls/hr 02/19/25 10:15 02/19/25 11:12 Ns IV 02/19/25 11:15 Infused .Q1H1M EUGENIO Infusion Medical Decision Making Medical Decision Making [facility] Narrative: Patient is a 75 year old assigned female at with a history of ESBL UTI, PAD, COPD, HTN, fibromyalgia, depression, CHF, and RA presenting to the emergency department today with confusion and concern for UTI. Patient's physical exam was as noted in the physical exam portion of this note. Patient's blood work was unremarkable. Patient's urine showed an acute UTI. Patient's EKG showed evidence of obvious ischemia. Given patient's history of ESBL, evidence of UTI + confusion today, will treat with Ertapenem given that's what her previous urine culture was sensitive to. Patient's clinical presentation is not consistent with sepsis (@1144). I spoke with the hospitalist team who agreed to admission for continued IV abx. I explained my physical exam findings as well as all test results to the patient. I answered all questions asked by the patient. Patient and the patient's daughter verbalized agreement and understanding with this treatment plan and admission. Differential Diagnosis Differential Diagnoses: The differential diagnosis associated with the presentation includes ESBL UTI Confusion Admission/Observation Consideration of admission/observation: Escalation of care including admission/observation considered Patient admitted as noted in the MDM Rationale portion of this note. Consult Healthcare Provider Management of the patient was discussed with: Hospitalist (agreed to admission as noted in the MDM Rationale portion of this note. ) Lab Data [facility] Lab Attestation statement: I reviewed the patient's lab results. My interpretation of these results are in the MDM Rationale portion of this note. 02/19/25 08:36 02/19/25 08:36 Labs: Lab Results 02/19/25 02/19/25 02/19/25 Range/Units 08:36 09:38 10:43 WBC 6.9 (4.8-10.8) X10*3/uL RBC 4.92 (4.20-5.50) X10*6/uL Hgb 14.6 (12.0-16.0) g/dl Hct 42.8 (37.0-47.0) % MCV 87.0 (80.0-98.0) fL MCH 29.7 (27.0-33.0) pg MCHC 34.1 (31.0-35.0) g/dl RDW 14.9 (11.0-16.0) % Plt Count 158 L (160-400) X10*3/uL MPV 10.6 (9.4-12.3) fL Immature Gran % (Auto) 0.3 (0.0-0.4) % Neut % (Auto) 66.4 (45-73) % Lymph % (Auto) 19.2 L (20-40) % Ocean % (Auto) 13.1 H (2-11) % Eos % (Auto) 0.7 (0-4) % Baso % (Auto) 0.3 (0-2) % Lymph # (Auto) 1.3 (1.2-4.9) X10*3/uL Ocean # (Auto) 0.9 (0.1-1.2) X10*3/uL Eos # (Auto) 0.1 (0.0-0.4) X10*3/uL Baso # (Auto) 0.0 (0.0-0.2) X10*3/uL Abs Immat Gran (auto) 0.02 (0.00-0.03) X10*3/uL Absolute Neuts (auto) 4.6 (2.0-8.3) x10*3/uL Absolute Nucleated RBC 0.000 (0.0-0.012) X10*3/uL Nucleated RBC % (auto) 0.0 (0.0-0.2) /100WBC Sodium 139 (135-145) mmol/L Potassium 3.5 (3.3-5.1) mmol/L Chloride 104 (96-108) mmol/L Carbon Dioxide 22 (22-29) mmol/L Anion Gap 17 (12-20) BUN 11 (9-16) mg/dL Creatinine 0.95 (0.5-1.4) mg/dL Estim Creat Clear Calc 60.9 Estimated GFR 58 Random Glucose 101 (60-115) mg/dL Lactic Acid 1.1 (0.5-2.0) mmol/L Calcium 9.2 (8.4-10.2) mg/dL Magnesium 2.0 (1.6-2.6) mg/dL Total Bilirubin 0.8 (0.0-1.0) mg/dL AST 29 (5-31) U/L ALT 14 (0-31) U/L Alkaline Phosphatase 118 H (39-117) U/L Troponin I High Sens 20.7 H D 19.2 H (<3.5-17.0) ng/L Total Protein 7.8 (6.5-8.0) g/dL Albumin 4.1 (3.5-5.0) g/dL Urine Color Dark Yellow Urine Appearance Cloudy Urine pH 6.0 (5.0-9.0) Ur Specific [place] 1.025 (1.005-1.025) Urine Protein 100 (2+) H (Neg-Trace) mg/dL Urine Glucose (UA) Negative (Negative) mg/dL Urine Ketones 40 (Negative) mg/dL Urine Blood Trace H (Negative) Urine Nitrite Positive H (Negative) Ur Leukocyte Esterase Moderate (2+) H (Negative) Urine RBC 3-5 H (0-2) /HPF Urine WBC 11-20 (0-5) /HPF Ur Squamous Epith Cells 6-10 (0-2) /HPF Urine Bacteria 3+ (None Seen) Hyaline Casts 6-10 (0-2) /LPF Influenza Type A (PCR) NEGATIVE (Negative) Influenza Type B (PCR) NEGATIVE (Negative) RSV RNA Qual (PCR) NEGATIVE (Negative) SARS-CoV-2 RNA (RT-PCR) NEGATIVE (Negative) Independent Interpretation I performed an independent interpretation of an: EKG Interpretation: I independently interpreted this EKG and am in agreement with the below findings: Vent. Rate: 92 BPM Atrial Rate: 92 BPM P-R Int: 122 ms QRS Dur: 80 ms QT Int: 374 ms P-R-T Axes: 28 -4 78 degrees QTcB Int: 462 ms Normal sinus rhythm 02/19/25 1033 Independent Historian Clinical information obtained from an independent historian. History obtained from or confirmed by: EMS (EMS provided additional history and confirmed the history provided by the patient. ) Critical Care Time Critical Care Time Critical Care Time: Yes Total Critical Care Time: 38 Attestation: I spent 38 minutes of Critical Care Time with this patient. This does not include time spent on separately reported billable procedures. Discharge Plan Discharge Clinical Impression: Urinary tract infection, Confusion Patient Disposition: Admitted As Inpatient
--- NOTE | 2025-02-19 08:04 | ECG_ITS ---
Test Reason : weakness Blood Pressure : */* mmHG Vent. Rate : 92 BPM Atrial Rate : 92 BPM P-R Int : 122 ms QRS Dur : 80 ms QT Int : 374 ms P-R-T Axes : 28 -4 78 degrees QTcB Int : 462 ms Normal sinus rhythm Minimal voltage criteria for LVH, may be normal variant ( R in aVL ) Nonspecific ST and T wave abnormality Abnormal ECG When compared with ECG of 07-Feb-2025 02:30, ST now depressed in Lateral leads Nonspecific T wave abnormality, worse in Anterolateral leads Referred By: Daniela Lentz Electronically Signed By: Fredi Mckinney
--- NOTE | 2025-02-19 08:42 | PC.NURSE ---
PA aware of elevated BP
[2025-02-19 08:44] LABS: MANUAL DIFF FLAG NO
[2025-02-19 08:45] LABS: Hematocrit 42.8 % (37.0-47.0); Hemoglobin 14.6 g/dl (12.0-16.0); Imm Gran Abs Auto 0.02 X10*3/uL (0.00-0.03); Imm Gran Pct Auto 0.3 % (0.0-0.4); Lymphocytes Absolute Auto 1.3 X10*3/uL (1.2-4.9); Mean Corpuscular HGB Conc 34.1 g/dl (31.0-35.0); Mean Corpuscular Hemoglobin 29.7 pg (27.0-33.0); Mean Corpuscular Volume 87.0 fL (80.0-98.0); NRBC Abs Auto 0.000 X10*3/uL (0.0-0.012); NRBC Pct Auto 0.0 /100WBC (0.0-0.2); Platelet Count 158 X10*3/uL (160-400); Red Blood Count 4.92 X10*6/uL (4.20-5.50); White Blood Count 6.9 X10*3/uL (4.8-10.8)
[2025-02-19 09:01] LABS: Alanine Aminotransferase 14 U/L (0-31); Albumin Level 4.1 g/dL (3.5-5.0); Alkaline Phosphatase 118 U/L (39-117); Anion Gap 17 (12-20); Aspartate Amino Transferase 29 U/L (5-31); Blood Urea Nitrogen 11 mg/dL (9-16); Calcium 9.2 mg/dL (8.4-10.2); Carbon Dioxide 22 mmol/L (22-29); Chloride 104 mmol/L (96-108); Creatinine Clr Calc Pharmacy 60.9; Estimated Glomerular Filt Rate 58; Magnesium 2.0 mg/dL (1.6-2.6); Potassium 3.5 mmol/L (3.3-5.1); Sodium 139 mmol/L (135-145); Total Protein 7.8 g/dL (6.5-8.0)
[2025-02-19 09:08] LABS: Troponin-I High Sensitivity 20.7 ng/L (<3.5-17.0)
--- OUTSIDE RECORDS SUMMARY | 2025-02-19 09:10 | XMS_ITS | Encounter Summary ---
Author Organization [facility] Address [address] [place] [address] Care Team Providers Care Gamemaster Name Role Phone Travis Holbrook MD Primary Care Provider [phone] Encounter Details Date Type Department Care Team (Late st Contact Info) Description 03/16/2024 Lab Requisition [facility] - Main Lab [address] [facility] [place] [address] Lavonne Irvin MD [address] [place], [place] [id number] Essential (primary) hypertension; Acute kidney failure, unspecified [...] mmol/L LAB CHEMISTRY METHOD 03/18/2024 1:26 PM [facility] Potassium 4.1 3.5 - 5.5 mmol/L LAB CHEMISTRY METHOD 03/18/2024 1:26 PM [facility] Chloride 104 96 - 110 mmol/L LAB CHEMISTRY METHOD 03/18/2024 1:26 PM [facility] CO2 31 21 - 32 mmol/L LAB CHEMISTRY METHOD 03/18/2024 1:26 PM [facility] Anion Gap 2(L) 3 - 11 LAB CHEMISTRY METHOD 03/18/2024 1:26 PM [facility] Glucose 75 70 - 100 mg/dL LAB CHEMISTRY METHOD 03/18/2024 1:26 PM [facility] BUN 23 5 - 25 mg/dL LAB CHEMISTRY METHOD 03/18/2024 1:26 PM [facility] Creatinine 1.30(H) 0.50 - 1.10 mg/dL LAB CHEMISTRY METHOD 03/18/2024 1:26 PM [facility] eGFR 44(L) >=60 mL/min/1. 73m2 LAB CHEMISTRY METHOD 03/18/2024 1:26 PM [facility] Comment:Calculation based on the Chronic Kidney Disease Epidemiology Collaboration (CKD-EPI) equation refit without adjustment for race. BUN/Creatinine Ratio 17.7 LAB CHEMISTRY METHOD 03/18/2024 1:26 PM [facility] Calcium 8.9 8.5 - 10.5 mg/dL LAB CHEMISTRY METHOD 03/18/2024 1:26 PM [facility] Blood Venous blood specimen / Unknown Venipuncture / Unknown 03/18/2024 7:09 AM EST 03/18/2024 11:39 AM EST us Lavonne Irvin MD LAB BLOOD ORDERABLES Final Resul t [facility] [address] [place] [address], * (ABNORMAL) Complete blood count (03/18/2024 7:09 AM EST) [facility] WBC 6.3 4.8 - 10.8 K/mcL LAB HEMETOLOGY METHOD 03/18/2024 11:57 AM EST [facility] RBC 3.90 3.80 - 4.80 M/mcL LAB HEMETOLOGY METHOD 03/18/2024 11:57 AM EST [facility] Hemoglobin 11.6 11.5 - 16.0 g/dL LAB HEMETOLOGY METHOD 03/18/2024 11:57 AM [facility] Hematocrit 37.4 35.0 - 47.0 % LAB HEMETOLOGY METHOD 03/18/2024 11:57 AM [facility] MCV 97.1 79.0 - 98.0 FL LAB HEMETOLOGY METHOD 03/18/2024 11:57 AM [facility] MCH 30.1 27.0 - 32.0 pcg LAB HEMETOLOGY METHOD 03/18/2024 11:57 AM [facility] MCHC 31.0(L) 32.0 - 37.0 g/dL LAB HEMETOLOGY METHOD 03/18/2024 11:57 AM EST [facility] RDW 15.9(H) 11.0 - 15.0 % LAB HEMETOLOGY METHOD 03/18/2024 11:57 AM [facility] Platelets 148 130 - 400 K/mcL LAB HEMETOLOGY METHOD 03/18/2024 11:57 AM EST [facility] MPV 11.0 7.0 - 11.0 FL LAB HEMETOLOGY METHOD 03/18/2024 11:57 AM EST [facility] NRBC 0.0 <1.0 % LAB HEMETOLOGY METHOD 03/18/2024 11:57 AM EST [facility] NRBC Absolute 0.00 <0.10 K/mcL LAB HEMETOLOGY METHOD 03/18/2024 11:57 AM EST [facility] Blood Venous blood specimen / Unknown Venipuncture / Unknown 03/18/2024 7:09 AM EST 03/18/2024 11:39 AM EST us Lavonne Irvin MD LAB BLOOD ORDERABLES Final Resul t [facility] [address] [place] [address], documented in this encounter Visit Diagnoses Diagnosis Essential (primary) hypertension Unspecified essential hypertension Acute kidney failure, unspecified (CMS/HCC V24) Acute kidney failure, unspecified documented in this encounter Care Teams Gamemaster Relationship Specialty Start Date End Date Travis Holbrook MD [address] [place] [address], [phone] PCP - General Family Medicine 02/28/24 documented as of this encounter
--- OUTSIDE RECORDS SUMMARY | 2025-02-19 09:10 | XMS_ITS | Encounter Summary ---
Author Organization [facility] Address [address] [place] [address] Care Team Providers Care Network Strategist Name Role Phone Travis Holbrook MD Primary Care Provider [phone] Encounter Details Date Type Department Care Team (Late st Contact Info) Description 02/28/2024 Lab Requisition [facility] - Main Lab [address] [facility] [employer] [place] [address] Travis Holbrook MD [address] [place] [address] [address] [facility] [phone] Other medical terminologist (current) drug therapy Social History Tobacco Use [...] COUNT Routine 02/28/2024 6:48 AM EST Other medical terminologist (current) drug therapy BASIC METABOLIC PANEL Routine 02/28/2024 6:48 AM EST Other medical terminologist (current) drug therapy documented in this encounter Results * (ABNORMAL) Basic metabolic panel (02/28/2024 6:48 AM EST) Sodium 137 133 - 145 mmol/L LAB CHEMISTRY METHOD 02/28/2024 12:05 PM [facility] Potassium 4.2 3.5 - 5.5 mmol/L LAB CHEMISTRY METHOD 02/28/2024 12:05 PM [facility] Chloride 103 96 - 110 mmol/L LAB CHEMISTRY METHOD 02/28/2024 12:05 PM [facility] CO2 31 21 - 32 mmol/L LAB CHEMISTRY METHOD 02/28/2024 12:05 PM [facility] Anion Gap 3 3 - 11 LAB CHEMISTRY METHOD 02/28/2024 12:05 PM [facility] Glucose 81 70 - 100 mg/dL LAB CHEMISTRY METHOD 02/28/2024 12:05 PM [facility] BUN 26(H) 5 - 25 mg/dL LAB CHEMISTRY METHOD 02/28/2024 12:05 PM [facility] Creatinine 1.00 0.50 - 1.10 mg/dL LAB CHEMISTRY METHOD 02/28/2024 12:05 PM [facility] eGFR 60 >=60 mL/min/1. 73m2 LAB CHEMISTRY METHOD 02/28/2024 12:05 PM [facility] Comment:Calculation based on the Chronic Kidney Disease Epidemiology Collaboration (CKD-EPI) equation refit without adjustment for race. BUN/Creatinine Ratio 26.0 LAB CHEMISTRY METHOD 02/28/2024 12:05 PM [facility] Calcium 9.0 8.5 - 10.5 mg/dL LAB CHEMISTRY METHOD 02/28/2024 12:05 PM [facility] Blood Venous blood specimen / Unknown Venipuncture / Unknown 02/28/2024 6:48 AM EST 02/28/2024 10:45 AM EST us Travis Holbrook MD LAB BLOOD ORDERABLES Final Resul t [facility] [address] [place] [address], [place] [phone] * (ABNORMAL) Complete blood count (02/28/2024 6:48 AM EST) [facility] WBC 6.1 4.8 - 10.8 K/mcL LAB HEMETOLOGY METHOD 02/28/2024 11:33 AM [facility] RBC 3.80 3.80 - 4.80 M/mcL LAB HEMETOLOGY METHOD 02/28/2024 11:33 AM [facility] Hemoglobin 11.4(L) 11.5 - 16.0 g/dL LAB HEMETOLOGY METHOD 02/28/2024 11:33 AM [facility] Hematocrit 36.3 35.0 - 47.0 % LAB HEMETOLOGY METHOD 02/28/2024 11:33 AM [facility] MCV 95.3 79.0 - 98.0 FL LAB HEMETOLOGY METHOD 02/28/2024 11:33 AM [facility] MCH 29.9 27.0 - 32.0 pcg LAB HEMETOLOGY METHOD 02/28/2024 11:33 AM [facility] MCHC 31.4(L) 32.0 - 37.0 g/dL LAB HEMETOLOGY METHOD 02/28/2024 11:33 AM [facility] RDW 15.0 11.0 - 15.0 % LAB HEMETOLOGY METHOD 02/28/2024 11:33 AM [facility] Platelets 180 130 - 400 K/mcL LAB HEMETOLOGY METHOD 02/28/2024 11:33 AM [facility] MPV 10.5 7.0 - 11.0 FL LAB HEMETOLOGY METHOD 02/28/2024 11:33 AM [facility] NRBC 0.0 <1.0 % LAB HEMETOLOGY METHOD 02/28/2024 11:33 AM [facility] NRBC Absolute 0.00 <0.10 K/mcL LAB HEMETOLOGY METHOD 02/28/2024 11:33 AM EST [facility] Blood Venous blood specimen / Unknown Venipuncture / Unknown 02/28/2024 6:48 AM EST 02/28/2024 10:45 AM EST us Travis Holbrook MD LAB BLOOD ORDERABLES Final Resul t [facility] [address] [place] [address], documented in this encounter Visit Diagnoses Diagnosis Other medical terminologist (current) drug therapy documented in this encounter Care Teams Network Strategist Relationship Specialty Start Date End Date Travis Holbrook MD [address] [place] [address], [phone] PCP - General Family Medicine 02/28/24 documented as of this encounter
--- OUTSIDE RECORDS SUMMARY | 2025-02-19 09:10 | XMS_ITS | Encounter Summary ---
Author Organization [facility] Address [address] [place] [address] Care Team Providers Care Pst Specialist Name Role Phone Travis Holbrook MD Primary Care Provider [phone] Encounter Details Date Type Department Care Team (Late st Contact Info) Description 07/03/[address] [facility] - Main Lab 299 [facility] [place] [address] Travis Holbrook MD [address] [place] [address] 204 [facility] [phone] Muscle weakness (generalized); Emphysema, unspecified [...] AM EDT) WBC 7.8 4.8 - 10.8 K/[facility] LAB HEMETOLOGY METHOD 07/03/2024 10:02 AM [facility] LAB RBC 3.80 3.80 - 4.80 M/mcL LAB HEMETOLOGY METHOD 07/03/2024 10:02 AM [facility] LAB Hemoglobin 11.4(L) 11.5 - 16.0 g/dL LAB HEMETOLOGY METHOD 07/03/2024 10:02 AM [facility] LAB Hematocrit 36.8 35.0 - 47.0 % LAB HEMETOLOGY METHOD 07/03/2024 10:02 AM [facility] LAB MCV 96.6 79.0 - 98.0 FL LAB HEMETOLOGY METHOD 07/03/2024 10:02 AM [facility] LAB MCH 29.9 27.0 - 32.0 pcg LAB HEMETOLOGY METHOD 07/03/2024 10:02 AM [facility] LAB MCHC 31.0(L) 32.0 - 37.0 g/dL LAB HEMETOLOGY METHOD 07/03/2024 10:02 AM [facility] LAB RDW 16.3(H) 11.0 - 15.0 % LAB HEMETOLOGY METHOD 07/03/2024 10:02 AM [facility] LAB Platelets 202 130 - 400 K/mcL LAB HEMETOLOGY METHOD 07/03/2024 10:02 AM [facility] LAB MPV 12.5(H) 7.0 - 11.0 FL LAB HEMETOLOGY METHOD 07/03/2024 10:02 AM [facility] LAB NRBC 0.0 <1.0 % LAB HEMETOLOGY METHOD 07/03/2024 10:02 AM [facility] LAB NRBC Absolute 0.00 <0.10 K/mcL LAB HEMETOLOGY METHOD 07/03/2024 10:02 AM [facility] LAB Blood Venous blood specimen / Unknown Venipuncture / Unknown 07/03/2024 5:14 AM EDT 07/03/2024 9:27 AM EDT us Travis Holbrook MD LAB BLOOD ORDERABLES Final Resul t [facility] ([facility] [address] [place] [address], documented in this encounter Visit Diagnoses Diagnosis Muscle weakness (generalized) Emphysema, unspecified (CMS/HCC V24, CMS/HCC V28) documented in this encounter Care Teams Pst Specialist Relationship Specialty Start Date End Date Trvais Holbrook MD [address] [place] [address], [phone] PCP - General Family Medicine 02/28/24 documented as of this encounter
--- OUTSIDE RECORDS SUMMARY | 2025-02-19 09:10 | XMS_ITS | Clinical Summary ---
Author Organization [address] Address [address] [place] [phone] Phone Care Team Providers Care Photoresist Printer Name Role Phone Travis Holbrook MD Primary Care Provider [phone] Allergies Active Allergy Reactions Criticality Noted Date Comments Adhesive Tape-Silicones Low 02/06/2017 Tape Other Reaction(s): Rash/Dermatitis Chlorthalidone Medium 08/08/2017 Hypokalemia Hydrochlorothiazide High 02/07/2017 Hyponatremia Lisinopril Anaphylaxis,Swell ing High 02/06/2017 anaphylaxis, 2017 [facility] Yylpdtt-Dig-Kpk Reductase Inhibitors 02/06/2017 Statins [Hmg-coa-r Inhibitors] Leg weakness leg pain Sulfa (Sulfonamide Antibiotics) Low 02/06/2017 Sulfa Drugs Other Reaction(s): Rash/Dermatitis Tramadol Low 02/06/2017 Other Reaction(s): Rash/Dermatitis serotonin syndrome , while she was also taking Cymbalta, 2017 Tremor Active Problems Problem Noted Date Diagnosed Date Chronic foot ulcer ([facility] V24, [facility] V28) Chronic patellofemoral pain of left knee 023 Difficult intubation 08/25/2022 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 Gait instability 08/25/2022 Polycythemia vera ([facility] V24, [facility] V28) 03/2022 Post-traumatic osteoarthritis of right knee 03/2022 Proximal muscle weakness 08/25/2022 Right medial tibial plateau fracture, closed, initial encounter 08/25/2022 Urinary incontinence 08/25/2022 Anxiety 08/24/2022 Bronchiectasis ([facility] V24, [facility] V28) 2022 Chronic lower back pain 08/24/2022 COPD (chronic obstructive pu lmonary disease) ([facility] V24, [facility] V28) 08/24/2022 Depression 08/24/2022 GERD (gastroesophageal reflux disease) Jose's thyroiditis 08/24/2022 HLD (hyperlipidemia) 08/24/2022 Lymphedema 08/24/2022 Polycythemia 08/24/2022 Rheumatoid arthritis ([facility] V24, [facility] V28) 08/24/2022 Rheumatoid lung ([facility] V24, [facility] V28) 08/24 Vitamin D deficiency 08/24/2022 Lymphedema of left lower extremity 05/13/2020 Overview (04/19/2024): Last Assessment & Plan: Stable at baseline. Takes Lasix as needed for extra leg swelling present. Bronchiectasis without compl ication ([facility] V24, [facility] V28) 01/10/2019 Overview (04/19/2024): Last Assessment & [...] ng multiple sites with positive rheumatoid factor ([facility] V24, [facility] V28) 10/09/2017 Overview (04/19/2024): Last Assessment & Plan: Stable at baseline, although some increased pain recently in right knee due to insufficiency fracture. F/u with Dr. Hair as scheduled. Rheumatoid lung disease ([facility] V24, [facility] V2 8) 10/09/2017 Overview (04/19/2024): Last Assessment & Plan: Stable, with close monitoring by Dr. Ordonez of pulmonology. Continue current therapies. Centrilobular emphysema ([facility] V24, [facility] V2 8) 08/23/2017 Overview (04/19/2024): Last [...] Site/Laterality Comments OTHER SURGICAL HISTORY N/A PROCEDURE: IN HYSTEROSCOPY ENDOMETRIAL ABLATION TUBAL LIGATION PROCEDURE: HISTORICAL [...] mmol/L LAB CHEMISTRY METHOD 07/22/2024 11:53 AM [facility] LAB Chloride 103 96 - 110 mmol/L LAB CHEMISTRY METHOD 07/22/2024 11:53 AM [facility] LAB CO2 32 21 - 32 mmol/L LAB CHEMISTRY METHOD 07/22/2024 11:53 AM [facility] LAB Anion Gap 8 3 - 11 LAB CHEMISTRY METHOD 07/22/2024 11:53 AM [facility] LAB Glucose 63(L) 70 - 100 mg/dL LAB CHEMISTRY METHOD 07/22/2024 11:53 AM [facility] LAB BUN 24 5 - 25 mg/dL LAB CHEMISTRY METHOD 07/22/2024 11:53 AM [facility] LAB Creatinine 1.30(H) 0.50 - 1.10 mg/dL LAB CHEMISTRY METHOD 07/22/2024 11:53 AM [facility] LAB eGFR 44(L) >=60 mL/min/1. 73m2 LAB CHEMISTRY METHOD 07/22/2024 11:53 AM [facility] LAB Comment:Calculation based on the Chronic Kidney Disease Epidemiology Collaboration (CKD-EPI) equation refit without adjustment for race. BUN/Creatinine Ratio 18.5 LAB CHEMISTRY METHOD 07/22/2024 11:53 AM [facility] LAB Calcium 8.7 8.5 - 10.5 mg/dL LAB CHEMISTRY METHOD 07/22/2024 11:53 AM [facility] LAB Blood Venous blood specimen / Unknown Venipuncture / Unknown 07/22/2024 5:17 AM EDT 07/22/2024 9:39 AM EDT us Travis Holbrook MD LAB BLOOD ORDERABLES Final Resul t [facility] [address] [place] [address], * Lipid panel (07/06/2022) LDL/HDL Ratio 0 [...] Most Recently Relevant to Health Maintenance Insurance [address] [place] [id number] MEDICAID - [place] [employer] MEDICARE Care Teams Photoresist Printer Relationship Specialty Start Date End Date Travis Holbrook MD [address] [place] [address] 204 [place], [phone] PCP - General Family Medicine 02/28/24
--- OUTSIDE RECORDS SUMMARY | 2025-02-19 09:10 | XMS_ITS | Encounter Summary ---
Author Organization [facility] Address [address] [place] [address] Care Team Providers Care Client Retention Specialist Name Role Phone Travis Holbrook MD Primary Care Provider [phone] Encounter Details Date Type Department Care Team (Late st Contact Info) Description 03/05/[address] [facility] - Main Lab 299 [facility] [place] [address] Travis Holbrook MD [address] [place] [phone] Other intermediate designer (current) drug therapy Social History Tobacco Use [...] of this encounter Visit Diagnoses Diagnosis Other intermediate designer (current) drug therapy documented in this encounter Care Teams Client Retention Specialist Relationship Specialty Start Date End Date Travis Holbrook MD [address] [facility] 204 [facility] [phone] PCP - General Family Medicine 02/28/24 documented as of this encounter
--- OUTSIDE RECORDS SUMMARY | 2025-02-19 09:10 | XMS_ITS | Encounter Summary ---
Author Organization [facility] Address [address] [place] [address] Care Team Providers Care Hide Examiner Name Role Phone Travis Holbrook MD Primary Care Provider [phone] Encounter Details Date Type Department Care Team (Late st Contact Info) Description 03/22/2024 Lab Requisition [facility] - Main Lab 299 [facility] [place] [address] Lavonne Irvin MD [address] [place] [address] Essential (primary) hypertension; Acute kidney failure, unspecified [...] unspecified documented in this encounter Care Teams Hide Examiner Relationship Specialty Start Date End Date Travis Holbrook MD [address] [place] [address] 204 [facility] [phone] PCP - General Family Medicine 02/28/24 documented as of this encounter
--- OUTSIDE RECORDS SUMMARY | 2025-02-19 09:10 | XMS_ITS | Encounter Summary ---
Author Organization [facility] Address [address] [place] [address] Care Team Providers Care Silk Screen Cutter Name Role Phone Travis Holbrook MD Primary Care Provider [phone] Encounter Details Date Type Department Care Team (Late st Contact Info) Description 07/26/2024 Lab Requisition [facility] - Main Lab 299 [facility] [place] [address] Travis Holbrook MD [address] [place] [address] 204 [place], [phone] Muscle weakness (generalized); Emphysema, unspecified (CMS/HCC V24, [...] V28) documented in this encounter Care Teams Silk Screen Cutter Relationship Specialty Start Date End Date Travis Holbrook MD 38 [facility] 204 [place], [phone] PCP - General Family Medicine 02/28/24 documented as of this encounter
--- OUTSIDE RECORDS SUMMARY | 2025-02-19 09:10 | XMS_ITS | Patient Health Record ---
Author Organization [facility] Address [address] [place] [address] Care Team Providers Care Teacher Ballet Name Role Phone Namita Acosta NP Primary Care Provider Jose Pizraro Unavailable [phone] Allergies Allergen (clinical drug ingredient) Drug/Non Drug Allergy documented on EMR Reaction Allergy Type Onset Date Status Adhesive rash Allergy Active Fentanyl and Related rash Drug Allergy Active hydrocortisone Hydrocortisone rash Drug Allergy Active lisinopril Lisinopril anaphylaxis Drug Allergy Act shawanda Substance with 6-gcrgvoy-0-methylg lutaryl-coenzyme A reductase inhibitor mechanism of action [...] day(s) Active Vitamin D (Ergocalciferol) 1.25 MG (13479 UT) TAKE 1 CAPSULE BY MOUTH 1 [...] atherosclerosis of arteries of lower limbs (disorder) (14462067577713386 ) Atherosclerosis of [place] artery of both lower extremities, with unspecified presence of clinical manifestation (I70.203) Active confirmed Problem Rheumatoid arthritis (46479452) Rheumatoid arthritis involving both feet, unspecified whether rheumatoid factor present (M06.9) Active confirmed Plan Of Treatment Pending Test Test Name Order Date [id number] SKIN/TISSUE 12/17/2021 [id number] SKIN/TISSUE 01/21/2022 [id number] SKIN/TISSUE 05/25/2022 15802 I&D ABSCESS- SIMPLE,SINGLE 023 13336 I&D ABSCESS- SIMPLE,SINGLE 022 Insurance Providers Payer Name Payer Address Payer Phone Subscriber Number Group Number Insured Name Patient Relationship to Insured Coverage Start Date Coverage End Date [employer] Medicare [id number] [address] [address] [place] [address] [id number] Alexandrea Renee Self - patient is the [...] ribs- CT -sameday went back 09/12/21 09/10/21 [facility]-expiration rheumatoid lung-overnight 07/2021
--- OUTSIDE RECORDS SUMMARY | 2025-02-19 09:11 | XMS_ITS | Encounter Summary ---
Author Organization [facility] Address [address] [place] [address] Care Team Providers Care Supervisor Irrigation Name Role Phone Travis Holbrook MD Primary Care Provider [phone] Encounter Details Date Type Department Care Team (Late st Contact Info) Description 07/19/2024 Lab Requisition [facility] - Main Lab 299 [facility] [place] [address] Travis Holbrook MD [address] [place] [address] 204 [facility] [phone] Muscle weakness (generalized); Emphysema, [...] mmol/L LAB CHEMISTRY METHOD 07/22/2024 11:53 AM [facility] LAB Potassium 3.7 3.5 - 5.5 mmol/L LAB CHEMISTRY METHOD 07/22/2024 11:53 AM [facility] LAB Chloride 103 96 - 110 mmol/L LAB CHEMISTRY METHOD 07/22/2024 11:53 AM [facility] LAB CO2 32 21 - 32 mmol/L LAB CHEMISTRY METHOD 07/22/2024 11:53 AM [facility] LAB Anion Gap 8 3 - 11 LAB CHEMISTRY METHOD 07/22/2024 11:53 AM [facility] LAB Glucose 63(L) 70 - 100 mg/dL LAB CHEMISTRY METHOD 07/22/2024 11:53 AM [facility] LAB BUN 24 5 - 25 mg/dL LAB CHEMISTRY METHOD 07/22/2024 11:53 AM [facility] LAB Creatinine 1.30(H) 0.50 - 1.10 mg/dL LAB CHEMISTRY METHOD 07/22/2024 11:53 AM [facility] LAB eGFR 44(L) >=60 mL/min/1. 73m2 LAB CHEMISTRY METHOD 07/22/2024 11:53 AM [facility] LAB Comment:Calculation based on the Chronic Kidney Disease Epidemiology Collaboration (CKD-EPI) equation refit without adjustment for race. BUN/Creatinine Ratio 18.5 LAB CHEMISTRY METHOD 07/22/2024 11:53 AM [facility] LAB Calcium 8.7 8.5 - 10.5 mg/dL LAB CHEMISTRY METHOD 07/22/2024 11:53 AM [facility] LAB Blood Venous blood specimen / Unknown Venipuncture / Unknown 07/22/2024 5:17 AM EDT 07/22/2024 9:39 AM EDT us Travis Holbrook MD LAB BLOOD ORDERABLES Final Resul t [facility] [address] [place] [address], [place] [phone] * (ABNORMAL) Complete blood count (07/22/2024 5:17 AM EDT) WBC 5.3 4.8 - 10.8 K/mcL LAB HEMETOLOGY METHOD 07/22/2024 10:02 AM EDT [facility] RBC 4.00 3.80 - 4.80 M/mcL LAB HEMETOLOGY METHOD 07/22/2024 10:02 AM EDT [facility] Hemoglobin 11.6 11.5 - 16.0 g/dL LAB HEMETOLOGY METHOD 07/22/2024 10:02 AM [facility] LAB Hematocrit 37.5 35.0 - 47.0 % LAB HEMETOLOGY METHOD 07/22/2024 10:02 AM EDT [facility] MCV 94.9 79.0 - 98.0 FL LAB HEMETOLOGY METHOD 07/22/2024 10:02 AM EDT [facility] MCH 29.4 27.0 - 32.0 pcg LAB HEMETOLOGY METHOD 07/22/2024 10:02 AM [facility] LAB MCHC 30.9(L) 32.0 - 37.0 g/dL LAB HEMETOLOGY METHOD 07/22/2024 10:02 AM EDT [facility] RDW 15.4(H) 11.0 - 15.0 % LAB HEMETOLOGY [facility]22[facility]24 [facility] Platelets 142 130 - 400 K/mcL LAB HEMETOLOGY METHOD 07/22[facility]2024 [facility] MPV 11.1(H) 7.0 - 11.0 FL LAB HEMETOLOGY METHOD 07/22/2024 10:02 AM EDT [facility] NRBC 0.0 <1.0 % LAB HEMETOLOGY METHOD 07/22/2024 10:02 AM EDT [facility] NRBC Absolute 0.00 <0.10 K/mcL LAB HEMETOLOGY METHOD 07/22/2024 10:02 AM EDT [facility] Blood Venous blood specimen / Unknown Venipuncture / Unknown 07/22/2024 5:17 AM EDT 07/22/2024 9:39 AM EDT us Travis Holbrook MD LAB BLOOD ORDERABLES Final Resul t [facility] [address] [place] [address], documented in this encounter Visit Diagnoses Diagnosis Muscle weakness (generalized) Emphysema, unspecified (CMS/HCC V24, CMS/HCC V28) documented in this encounter Care Teams Supervisor Irrigation Relationship Specialty Start Date End Date Travis Holbrook MD [address] [place] [address], [phone] PCP - General Family Medicine 02/28/24 documented as of this encounter
--- OUTSIDE RECORDS SUMMARY | 2025-02-19 09:11 | XMS_ITS | Patient Health Record ---
Author Organization [facility] Address [address] [facility] [address] [place] [address] Care Team Providers Care Manuscripts Archivist Name Role Phone Carlos Alberto Murray Primary Care Provider Eduardo Carr MD MSc, Juju Unavailable [phone] Johnny Blanco Unavailable Unavailable Allergies Allergen (clinical drug ingredient) Drug/Non Drug Allergy documented on EMR Reaction Allergy Type Onset Date Status Statins Support severe muscle pain in legs Drug Allergy Active sulfa rash, itching Drug Allergy Act shawanda Reason For Referral No Information Medications Medication SIG (Take, Route, Frequency, Duration) Notes Start Date End Date Status Imipramine HCl 10 MG Tablet 1 Orally qhs Active cloNIDine HCl 0.2 MG Tablet 1 tablet Orally qid Active Cymbalta 20 MG Capsule Delayed Release Particles Orally 60mg qam, 40 mg qpm Active oxyCODONE-Acetaminophen 7.5-325 MG Tablet 1 tablet as needed Orally tid prn. To be filled on 07/08/15; Duration: 14 days Active Lidoderm 5 % Patch 1 patch to intact skin remove after 12 hours Externally Once a day; Duration: 30 days Active Lyrica 100 MG Capsule 1 capsule Orally bid; Duration: 30 days Active oxyCODONE-Acetaminophen 7.5-325 MG Tablet 1 tablet as needed Orally bid next filled date 08/19/15; Duration: 28 days Active Lasix 20 MG Tablet 1 tablet Orally once a day prn Active Cyclobenzaprine HCl 10 MG Tablet 1 tablet Orally TID PRN Takes as needed/rarely Active Ambien 10 MG Tablet 1 tablet at bedtime as needed Orally 3-4 times a week Active Social History Social History Social History Social Info Question Answer Notes Drug Have you used drugs other than those for medical reasons in the past 12 months? 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[employer]) Section Notes: Opioid Risk Tool: 1) Family [...] Status W/U Status Risk Notes Problem Sciatica (10125625) Sciatica (724.3) Active confirmed Problem Lumbosacral spondylosis without myelopathy (01790748) Lumbosacral spondylosis without myelopathy (721.3) Active confirmed Problem Muscle pain (56368785) Unspecified myalgia and myositis (729.1) Active confirmed Problem Postherpetic polyneuropathy (73915924) 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) Active confirmed Problem Lumbosacral spondylosis without myelopathy (disorder) (73370180) Spondylosis without myelopathy or radiculopathy, lumbosacral region (M47.817) Active confirmed Problem Lumbosacral spondylosis without myelopathy (13762755) Other spondylosis, lumbar region (M47.896) Active confirmed Problem High risk drug monitoring status (641279827) [facility] current use of opiate analgesic (Z79.891) Active confirmed Problem Lumbar spondylosis (740773959) Lumbar spondylosis (M47.816) Active confirmed Problem Left shoulder pain (3983965707) Left shoulder pain (M25.512) Active confirmed Problem Spondylosis (4867314) Spondylosis (M47.9) Active confirmed Problem Postherpetic neuralgia (7712794) Postherpetic neuralgia (B02.29) Active confirmed Problem Shoulder pain (59542387) Shoulder pain (M25.519) Active confirmed Plan Of [...] MEDICARE NGS [address] [place] [phone] [id number] Alexandrea Renee Self - patient is the insured Medical (General) History Medical History History ICD Code Depression Hypercholesterolemia Arthritis Fibromyalgia OCD peripheral neuropathy Surgical History Surgery Date(Month/Year) L knee replacement 2003 L knee revision 2010 Uterine Ablation Tubal Ligation R knee Meniscus repair 2011
--- OUTSIDE RECORDS SUMMARY | 2025-02-19 09:11 | XMS_ITS | Encounter Summary ---
Author Organization [facility] Address [address] [place] [address] Care Team Providers Care Roll Sheeting Cutter Name Role Phone Travis Holbrook MD Primary Care Provider Encounter Details Date Type Department Care Team (Late st Contact Info) Description 07/05/2024 Lab Requisition [facility] - Main Lab 299 [facility] [place] [address] Travis Holbrook MD [address] [place] [address] 204 [facility] [phone] Muscle weakness (generalized); [...] mmol/L LAB CHEMISTRY METHOD 07/08/2024 8:22 AM [facility] Potassium 3.9 3.5 - 5.5 mmol/L LAB CHEMISTRY METHOD 07/08/2024 8:22 AM [facility] Comment:Hemolysis present Chloride 103 96 - 110 mmol/L LAB CHEMISTRY METHOD 07/08/2024 8:22 AM [facility] CO2 31 21 - 32 mmol/L LAB CHEMISTRY METHOD 07/08/2024 8:22 AM [facility] Anion Gap 6 3 - 11 LAB CHEMISTRY METHOD 07/08/2024 8:22 AM [facility] Glucose 97 70 - 100 mg/dL LAB CHEMISTRY METHOD 07/08/2024 8:22 AM [facility] Comment:Lipemia present BUN 26(H) 5 - 25 mg/dL LAB CHEMISTRY METHOD 07/08/2024 8:22 AM [facility] Creatinine 1.30(H) 0.50 - 1.10 mg/dL LAB CHEMISTRY METHOD 07/08/2024 8:22 AM [facility] eGFR 44(L) >=60 mL/min/1. 73m2 LAB CHEMISTRY METHOD 07/08/2024 8:22 AM [facility] Comment:Calculation based on the Chronic Kidney Disease Epidemiology Collaboration (CKD-EPI) equation refit without adjustment for race. BUN/Creatinine Ratio 20.0 LAB CHEMISTRY METHOD 07/08/2024 8:22 AM [facility] Calcium 9.0 8.5 - 10.5 mg/dL LAB CHEMISTRY METHOD 07/08/2024 8:22 AM [facility] Blood Venous blood specimen / Unknown Venipuncture / Unknown 07/08/2024 5:44 AM EDT 07/08/2024 7:28 AM EDT us Travis Holbrook MD LAB BLOOD ORDERABLES Final Resul t [facility] [address] [place] [address], * (ABNORMAL) Complete blood count (07/08/2024 5:44 AM EDT) WBC 6.1 4.8 - 10.8 K/mcL LAB HEMETOLOGY METHOD 07/08/2024 8:03 AM EDT [facility] RBC 3.90 3.80 - 4.80 M/mcL LAB HEMETOLOGY METHOD 07/08/2024 8:03 AM [facility] Hemoglobin 11.7 11.5 - 16.0 g/dL LAB HEMETOLOGY METHOD 07/08/2024 8:03 AM [facility] Hematocrit 37.1 35.0 - 47.0 % LAB HEMETOLOGY METHOD 07/08/2024 8:03 AM [facility] MCV 95.9 79.0 - 98.0 FL LAB HEMETOLOGY METHOD 07/08/2024 8:03 AM [facility] MCH 30.2 27.0 - 32.0 pcg LAB HEMETOLOGY METHOD 07/08/2024 8:03 AM [facility] MCHC 31.5(L) 32.0 - 37.0 g/dL LAB HEMETOLOGY METHOD 07/08/2024 8:03 AM [facility] RDW 15.9(H) 11.0 - 15.0 % LAB HEMETOLOGY METHOD 07/08/2024 8:03 AM [facility] Platelets 223 130 - 400 K/mcL LAB HEMETOLOGY METHOD 07/08/2024 8:03 AM [facility] MPV 10.9 7.0 - 11.0 FL LAB HEMETOLOGY METHOD 07/08/2024 8:03 AM EDT [facility] NRBC 0.0 <1.0 % LAB HEMETOLOGY METHOD 07/08/2024 8:03 AM EDT [facility] NRBC Absolute 0.00 <0.10 K/mcL LAB HEMETOLOGY METHOD 07/08/2024 8:03 AM EDT [facility] Blood Venous blood specimen / Unknown Venipuncture / Unknown 07/08/2024 5:44 AM EDT 07/08/2024 7:28 AM EDT us Travis Holbrook MD LAB BLOOD ORDERABLES Final Resul t [facility] [address] [place] [address], documented in this encounter Visit Diagnoses Diagnosis Muscle weakness (generalized) Emphysema, unspecified (CMS/HCC V24, CMS/HCC V28) documented in this encounter Care Teams Roll Sheeting Cutter Relationship Specialty Start Date End Date Travis Holbrook MD [address] [place] [address], [phone] PCP - General Family Medicine 02/28/24 documented as of this encounter
--- OUTSIDE RECORDS SUMMARY | 2025-02-19 09:11 | XMS_ITS | Encounter Summary ---
Author Organization [facility] Address [address] [place] [address] Care Team Providers Care Livestock Speculator Name Role Phone Travis Holbrook MD Primary Care Provider [phone] Encounter Details Date Type Department Care Team (Late st Contact Info) Description 07/12/2024 Lab Requisition [facility] - Main Lab 299 [facility] [place] [address] Travis Holbrook MD [address] [place] [address] [facility] [phone] Muscle weakness (generalized); Emphysema, unspecified [...] * Magnesium (07/15/2024 5:26 AM EDT) Pathologist [facility] Magnesium 2.1 1.9 - 2.6 mg/dL LAB CHEMISTRY METHOD 07/15/2024 2:11 PM EDT [facility] Blood Venous blood specimen / Unknown Venipuncture / Unknown 07/15/2024 5:26 AM EDT 07/15/2024 10:23 AM EDT us Travis Holbrook MD LAB BLOOD ORDERABLES Final Resul t [facility] [address] [place] [address], * (ABNORMAL) Basic metabolic panel (07/15/2024 5:26 AM EDT) [facility] Sodium 143 133 - 145 mmol/L LAB CHEMISTRY METHOD 07/15/2024 2:29 PM [facility] Potassium 3.8 3.5 - 5.5 mmol/L LAB CHEMISTRY METHOD 07/15/2024 2:29 PM [facility] Chloride 102 96 - 110 mmol/L LAB CHEMISTRY METHOD 07/15/2024 2:29 PM T [facility] CO2 30 21 - 32 mmol/L LAB CHEMISTRY METHOD 07/15/2024 2:29 PM [facility] Anion Gap 11 3 - 11 LAB CHEMISTRY METHOD 07/15/2024 2:29 PM [facility] Glucose 65(L) 70 - 100 mg/dL LAB CHEMISTRY METHOD 07/15/2024 2:29 PM [facility] BUN 19 5 - 25 mg/dL LAB CHEMISTRY METHOD 07/15/2024 2:29 PM EDT [facility] Creatinine 1.17(H) 0.50 - 1.10 mg/dL LAB CHEMISTRY METHOD 07/15/2024 2:29 PM EDT [facility] eGFR 50(L) >=60 mL/min/1. 73m2 LAB CHEMISTRY METHOD 07/15/2024 2:29 PM EDT [facility] Comment:Calculation based on the Chronic Kidney Disease Epidemiology Collaboration (CKD-EPI) equation refit without adjustment for race. BUN/Creatinine Ratio 16.2 LAB CHEMISTRY METHOD 07/15/2024 2:29 PM EDT [facility] Calcium 9.3 8.5 - 10.5 mg/dL LAB CHEMISTRY METHOD 07/15/2024 2:29 PM EDT [facility] Blood Venous blood specimen / Unknown Venipuncture / Unknown 07/15/2024 5:26 AM EDT 07/15/2024 10:23 AM EDT us Travis Holbrook MD LAB BLOOD ORDERABLES Final Resul t [facility] [address] [place] [address], * (ABNORMAL) Complete blood count (07/15/2024 5:26 AM EDT) WBC 5.0 4.8 - 10.8 K/mcL LAB HEMETOLOGY METHOD 07/15/2024 11:34 AM EDT [facility] RBC 3.90 3.80 - 4.80 M/mcL LAB HEMETOLOGY METHOD 07/15/2024 11:34 AM EDT [facility] Hemoglobin 11.6 11.5 - 16.0 g/dL LAB HEMETOLOGY METHOD 07/15/2024 11:34 AM EDT [facility] Hematocrit 37.1 35.0 - 47.0 % LAB HEMETOLOGY METHOD 07/15/2024 11:34 AM EDT [facility] MCV 96.1 79.0 - 98.0 FL LAB HEMETOLOGY METHOD 07/15/2024 11:34 AM EDT [facility] MCH 30.1 27.0 - 32.0 pcg LAB HEMETOLOGY METHOD 07/15/2024 11:34 AM EDT [facility] MCHC 31.3(L) 32.0 - 37.0 g/dL LAB HEMETOLOGY METHOD 07/15/2024 11:34 AM EDT [facility] RDW 15.7(H) 11.0 - 15.0 % LAB HEMETOLOGY METHOD 07/15/2024 11:34 AM T [facility] Platelets 204 130 - 400 K/mcL LAB HEMETOLOGY METHOD 07/15/2024 11:34 AM EDT [facility] MPV 11.0 7.0 - 11.0 FL LAB HEMETOLOGY METHOD 07/15/2024 11:34 AM EDT [facility] NRBC 0.0 <1.0 % LAB HEMETOLOGY METHOD 07/15/2024 11:34 AM T [facility] NRBC Absolute 0.00 <0.10 K/mcL LAB HEMETOLOGY METHOD 07/15/2024 11:34 AM [facility] Blood Venous blood specimen / Unknown Venipuncture / Unknown 07/15/2024 5:26 AM EDT 07/15/2024 10:23 AM EDT us Travis Holbrook MD LAB BLOOD ORDERABLES Final Resul t [facility] [address] [place] [address], documented in this encounter Visit Diagnoses Diagnosis Muscle weakness (generalized) Emphysema, unspecified (CMS/HCC V24, CMS/HCC V28) Hypokalemia Hypopotassemia documented in this encounter Care Teams Livestock Speculator Relationship Specialty Start Date End Date Travis Holbrook MD [address] [place] [address], [phone] PCP - General Family Medicine 02/28/24 documented as of this encounter
--- OUTSIDE RECORDS SUMMARY | 2025-02-19 09:11 | XMS_ITS | Encounter Summary ---
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 Social History Tobacco Use [...] PANEL Routine 07/03/2024 11:40 AM EDT Other retirement (current) drug therapy documented in this encounter Results * (ABNORMAL) Comprehensive metabolic panel (07/03/2024 11:40 AM EDT) Sodium 134 133 - 145 mmol/L LAB CHEMISTRY METHOD 07/03/2024 2:18 PM EDT [facility] Potassium 4.7 3.5 - 5.5 mmol/L LAB CHEMISTRY METHOD 07/03/2024 2:18 PM [facility] Chloride 99 96 - 110 mmol/L LAB CHEMISTRY METHOD 07/03/2024 2:18 PM [facility] CO2 28 21 - 32 mmol/L LAB CHEMISTRY METHOD 07/03/2024 2:18 PM [facility] Anion Gap 7 3 - 11 LAB CHEMISTRY METHOD 07/03/2024 2:18 PM [facility] Glucose 79 70 - 100 mg/dL LAB CHEMISTRY METHOD 07/03/2024 2:18 PM [facility] BUN 19 5 - 25 mg/dL LAB CHEMISTRY METHOD 07/03/2024 2:18 PM [facility] Creatinine 1.09 0.50 - 1.10 mg/dL LAB CHEMISTRY METHOD 07/03/2024 2:18 PM [facility] eGFR 54(L) >=60 mL/min/1. 73m2 LAB CHEMISTRY METHOD 07/03/2024 2:18 PM [facility] Comment:Calculation based on the Chronic Kidney Disease Epidemiology Collaboration (CKD-EPI) equation refit without adjustment for race. BUN/Creatinine Ratio 17.4 LAB CHEMISTRY METHOD 07/03/2024 2:18 PM [facility] Calcium 9.2 8.5 - 10.5 mg/dL LAB CHEMISTRY METHOD 07/03/2024 2:18 PM [facility] AST (SGOT) 23 10 - 42 unit/L LAB CHEMISTRY METHOD 07/03/2024 2:18 PM [facility] ALT (SGPT) 33 10 - 60 unit/L LAB CHEMISTRY METHOD 07/03/2024 2:18 PM [facility] Alkaline Phosphatase 129(H) 42 - 121 unit/L LAB CHEMISTRY METHOD 07/03/2024 2:18 PM [facility] Total Protein 6.6 6.0 - 8.0 g/dL LAB CHEMISTRY METHOD 07/03/2024 2:18 PM EDT [facility] Albumin 2.6(L) 3.2 - 5.0 g/dL LAB CHEMISTRY METHOD 07/03/2024 2:18 PM EDT [facility] Total Bilirubin 0.4 0.0 - 1.4 mg/dL LAB CHEMISTRY METHOD 07/03/2024 2:18 PM EDT [facility] Blood Venous blood specimen / Unknown 07/03/2024 11:40 AM EDT 07/03/2024 1:16 PM EDT us Travis Holbrook MD LAB BLOOD ORDERABLES Final Resul t [facility] [address] [place] [address], documented in this encounter Visit Diagnoses Diagnosis Other license 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
--- OUTSIDE RECORDS SUMMARY | 2025-02-19 09:11 | XMS_ITS | Encounter Summary ---
Author Organization [facility] Address [address] [place] [address] Care Team Providers Care Medical Information Specialist Name Role Phone Travis Holbrook MD Primary Care Provider [phone] Encounter Details Date Type Department Care Team (Late st Contact Info) Description 03/08/2024 Lab Requisition [facility] - Main Lab 299 [facility] [place] [address] Lavonne Irvin MD [address] [place], [place] [id number] Essential (primary) hypertension; Acute kidney failure, unspecified [...] Resul t [facility] [address] [place] [address], * (ABNORMAL) Complete blood count (03/11/2024 7:17 AM EST) [facility] Signature WBC 4.7(L) 4.8 - 10.8 K/mcL LAB HEMETOLOGY METHOD 03/11/2024 11:48 AM EST [facility] RBC 3.70(L) 3.80 - [...] LAB HEMETOLOGY METHOD 03/11/2024 11:48 AM EST [facility] MCH 30.4 27.0 - [...] LAB HEMETOLOGY METHOD 03/11/2024 11:48 AM EST [facility] NRBC Absolute 0.00 <0.10 K/mcL LAB HEMETOLOGY METHOD 03/11/2024 11:48 AM EST [facility] Blood Venous blood specimen / Unknown Venipuncture / Unknown 03/11/2024 7:17 AM EST 03/11/2024 11:24 AM EST us Lavonne Irvin MD LAB BLOOD ORDERABLES Final Resul t [facility] [address] [place] [address], documented in this encounter Visit Diagnoses Diagnosis Essential (primary) hypertension Unspecified essential hypertension Acute kidney failure, unspecified (CMS/HCC V24) Acute kidney failure, unspecified documented in this encounter Care Teams Medical Information Specialist Relationship Specialty Start Date End Date Travis Holbrook MD [address] [place] [address], [phone] PCP - General Family Medicine 02/28/24 documented as of this encounter
--- OUTSIDE RECORDS SUMMARY | 2025-02-19 09:11 | XMS_ITS | Encounter Summary ---
Author Organization [facility] Address [address] [place] [address] Care Team Providers Care Renal Dietitian Name Role Phone Travis Holbrook MD Primary Care Provider [phone] Encounter Details Date Type Department Care Team (Late st Contact Info) Description 03/07/2024 Lab Requisition [facility] - Main Lab 299 [facility] [place] [address] Lavonne Irvin MD [address] [place], [place] [phone] Essential (primary) hypertension; Acute kidney failure, unspecified [...] mmol/L LAB CHEMISTRY METHOD 03/07/2024 11:23 AM [facility] Potassium 4.5 3.5 - 5.5 mmol/L LAB CHEMISTRY METHOD 03/07/2024 11:23 AM [facility] Chloride 106 96 - 110 mmol/L LAB CHEMISTRY METHOD 03/07/2024 11:23 AM [facility] CO2 29 21 - 32 mmol/L LAB CHEMISTRY METHOD 03/07/2024 11:23 AM [facility] Anion Gap 5 3 - 11 LAB CHEMISTRY METHOD 03/07/2024 11:23 AM [facility] Glucose 78 70 - 100 mg/dL LAB CHEMISTRY METHOD 03/07/2024 11:23 AM [facility] BUN 25 5 - 25 mg/dL LAB CHEMISTRY METHOD 03/07/2024 11:23 AM [facility] Creatinine 1.27(H) 0.50 - 1.10 mg/dL LAB CHEMISTRY METHOD 03/07/2024 11:23 AM [facility] eGFR 45(L) >=60 mL/min/1. 73m2 LAB CHEMISTRY METHOD 03/07/2024 11:23 AM [facility] Comment:Calculation based on the Chronic Kidney Disease Epidemiology Collaboration (CKD-EPI) equation refit without adjustment for race. BUN/Creatinine Ratio 19.7 LAB CHEMISTRY METHOD 03/07/2024 11:23 AM [facility] Calcium 8.6 8.5 - 10.5 mg/dL LAB CHEMISTRY METHOD 03/07/2024 11:23 AM [facility] Blood Venous blood specimen / Unknown Venipuncture / Unknown 03/07/2024 6:00 AM EST 03/07/2024 10:35 AM EST us Lavonne Irvin MD LAB BLOOD ORDERABLES Final Resul t [facility] [address] [place] [address], * (ABNORMAL) Complete blood count (03/07/2024 6:00 AM EST) [facility] Signature WBC 4.8 4.8 - 10.8 K/mcL LAB HEMETOLOGY METHOD 03/07/2024 10:54 AM EST [facility] RBC 3.70(L) 3.80 - 4.80 M/mcL LAB HEMETOLOGY METHOD 03/07/2024 10:54 AM [facility] Hemoglobin 11.1(L) 11.5 - 16.0 g/dL LAB HEMETOLOGY METHOD 03/07/2024 10:54 AM [facility] Hematocrit 34.6(L) 35.0 - 47.0 % LAB HEMETOLOGY METHOD 03/07/2024 10:54 AM [facility] MCV 94.3 79.0 - 98.0 FL LAB HEMETOLOGY METHOD 03/07/2024 10:54 AM [facility] MCH 30.2 27.0 - 32.0 pcg LAB HEMETOLOGY METHOD 03/07/2024 10:54 AM [facility] MCHC 32.1 32.0 - 37.0 g/dL LAB HEMETOLOGY METHOD 03/07/2024 10:54 AM [facility] RDW 15.2(H) 11.0 - 15.0 % LAB HEMETOLOGY METHOD 03/07/2024 10:54 AM [facility] Platelets 211 130 - 400 K/mcL LAB HEMETOLOGY METHOD 03/07/2024 10:54 AM [facility] MPV 10.3 7.0 - 11.0 FL LAB HEMETOLOGY METHOD 03/07/2024 10:54 AM [facility] NRBC 0.0 <1.0 % LAB HEMETOLOGY METHOD 03/07/2024 10:54 AM EST [facility] NRBC Absolute 0.00 <0.10 K/mcL LAB HEMETOLOGY METHOD 03/07/2024 10:54 AM EST [facility] Blood Venous blood specimen / Unknown Venipuncture / Unknown 03/07/2024 6:00 AM EST 03/07/2024 10:35 AM EST us Lavonne Irvin MD LAB BLOOD ORDERABLES Final Resul t [facility] [address] [place] [address], documented in this encounter Visit Diagnoses Diagnosis Essential (primary) hypertension Unspecified essential hypertension Acute kidney failure, unspecified (CMS/HCC V24) Acute kidney failure, unspecified documented in this encounter Care Teams Renal Dietitian Relationship Specialty Start Date End Date Travis Holbrook MD [address] [place] [address] 204 [place], [phone] PCP - General Family Medicine 02/28/24 documented as of this encounter
[2025-02-19 09:28] LABS: Resp Syncy Virus RNA Qual PCR NEGATIVE (Negative); SARS COV2 PCR INHOUSE NEGATIVE (Negative)
[2025-02-19 10:04] LABS: Troponin-I High Sensitivity 19.2 ng/L (<3.5-17.0)
[2025-02-19 10:55] LABS: Appearance Urine Cloudy; Glucose Urine UA Negative (Negative); PH 6.0 (5.0-9.0); Specific Gravity - Urine 1.025 (1.005-1.025); UMIC TRIGGER UACC YES
--- NOTE | 2025-02-19 10:56 | MHC.CM.ED ---
Received notification from CM library circulation assistant that patient's daughter, Susy, is requesting a telephone call. Spoke with Susy via telephone at [phone]. Susy is requesting capacity eval. Susy reports patient will long to the hospital confused and then will be be d/c'd home without information being communicated to her. Patient will then return home and not remember what was said or where her d/c instructions are. Susy made aware patient's work up is still pending. However, capacity eval will need to wait until patient is medically stable. Daniela CHERRY made aware. Continue to monitor for d/c needs.
[2025-02-19 11:10] LABS: UACC Culture Trigger YES
--- NOTE | 2025-02-19 11:53 | PM.IMHP ---
History of Present Illness Date of Service: 02/19/25 Chief Complaint: confusion 75 year old women with a history of ESBL UTI presents the ER with confusion and concern for UTI. Patient reported that she gets frequent urinary tract infections and she has been feeling unwell. She noted increased urinary frequency and foul smelling urine which usually give her a clue that she has a UTI. Patient denied fever, chills, nausea, vomiting. UA positive, no fever leukocytosis. Hypertensive urgency noted in the ED systolic blood pressure as high as 220. Patient given IV beta-janusz. She also received a dose of ertapenem. Plan will be to admit patient for further management and treatment of presumed ESBL UTI. Review of Systems Review of Systems: Denies any recent fever chills or decrease in appetite respiratory denies any shortness of breath or cough cardiovascular denied chest pain gastrointestinal denies any dysphagia abdominal pain nausea vomiting or diarrhea genitourinary denies any dysuria frequency or hematuria musculoskeletal denies any joint pain or swelling neuropsych denies any weakness or seizures all other systems reviewed are negative COUNT INCLUDES [facility] Medical History Hypertension Oxygen dependent Urinary tract infection due to extended-spectrum beta lactamase (ESBL) producing Escherichia coli Osteomyelitis COPD (chronic obstructive pulmonary disease) Hypothyroidism Congestive heart failure Fibromyalgia Depression Rheumatoid arthritis Family History Father No problems noted. 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 If so, by whom?: No Do you feel safe in your current relationship?: Yes Is there a partner from a previous relationship who is making you feel unsafe now?: No Are you made to feel afraid or neglected: No Advance Directives: Yes Advance Directives on File: Yes Advance Directives Date on File: 10/19/23 Do you have a plan to hurt others: No Plan Recently lost weight without trying: No Eating poorly because of decreased appetite: No Nutrition Risks: No Nutritional Risk Patient : No : No Poor oral hygiene: No service: No Meds Allergies Allergy/AdvReac Type Severity Reaction Status Date / Time lisinopril (LISINOPRIL) Allergy Severe ANAPHYLAXIS Verified 02/19/25 07:56 Sulfa (Sulfonamide Allergy Intermediate RASH Verified 02/19/25 07:56 Antibiotics) (SULFA (SULFONAMIDE ANTIBIOTICS)) tramadol (TRAMADOL) Allergy Intermediate RASH Verified 02/19/25 07:56 Ssqbnte-ARV-GpH Reductase Allergy Rash Verified 02/19/25 07:56 Inhibitor (Wmnmycf-Wgg-Nna Reductase Inhibitor) hydrochlorothiazide (HCTZ) AdvReac Unknown ABNORMAL Verified 02/19/25 07:56 LABS? Active Medications: Current Medications Acetaminophen (Acetaminophen 325 Mg Tablet) 650 mg PO Q6H PRN PRN Reason: Pain, Mild 1-3,fever,headache Calcium Carbonate (Calcium Carbonate 750 Mg Tab.Chew) 750 mg PO Q4H PRN PRN Reason: Heartburn Enoxaparin Sodium (Enoxaparin Sodium 40 Mg/0.4 Ml Syringe) 40 mg SUBCUT Q24H [place] Magnesium Hydroxide (Milk Of Magnesia 30 Ml Oral.Susp) 30 ml PO DAILY PRN PRN Reason: Constipation Melatonin (Melatonin 3 Mg Tablet) 6 mg PO BEDTIME PRN PRN Reason: Insomnia Meropenem (Meropenem 500 Mg Vial) 500 mg IVPUSH Q8H [place] Ondansetron HCl (Ondansetron Hcl 4 Mg/2 Ml Vial) 4 mg IVPUSH Q8H PRN PRN Reason: Nausea and Vomiting Sodium Chloride (0.9 % Sodium Chloride Flush 3 Ml Syringe) 3 ml IVFLUSH QSHIFT [facility] Home Medications ?Medication ?Instructions ?Recorded ?Confirmed ?Last Taken ?Type bupropion HCl 300 mg 24 hr tablet, 300 mg PO DAILY@0900 0502/19/25 02/17/25 History extended release levothyroxine 50 mcg tablet 50 mcg PO DAILY@0600 08/23/21 02/19/25 02/17/25 History methotrexate sodium 2.5 mg tablet 25 mg PO TU 08/23/21 02/19/25 02/11/25 History omeprazole 40 mg capsule,delayed 40 mg PO DAILY@0630 08/23/21 02/19/25 02/17/25 History release prednisone 1 mg tablet 4 mg PO DAILY 08/23/21 02/19/25 02/17/25 History pregabalin 200 mg capsule 200 mg PO BID 01/07/23 02/19/25 02/17/25 History folic acid 1 mg tablet 2 mg PO DAILY 10/13/23 02/19/25 02/17/25 History bupropion HCl 150 mg 24 hr tablet, 150 mg PO DAILY@0900 11/25/23 02/19/25 02/17/25 History extended release acetaminophen 325 mg tablet 650 mg PO Q4H PRN Moderate Pain 03/04/24 02/19/25 Unknown History (Tylenol) (Scale Score 5-6) ibuprofen 200 mg tablet 600 mg PO Q6H PRN Pain 05/03/24 02/19/25 Unknown History melatonin 10 mg tablet 10 mg PO BEDTIME PRN Sleep 05/03/24 02/19/25 Unknown History multivitamin 1 tab PO DAILY 05/03/24 02/19/25 02/17/25 History atenolol 25 mg tablet 50 mg PO DAILY 08/29/24 02/19/25 02/17/25 History fluticasone propionate 50 1 spray intranasal BID PRN Allergy 08/29/24 02/19/25 Unknown History mcg/actuation nasal Symptoms spray,suspension biotin 1 mg tablet 1 mg PO DAILY 10/07/24 02/19/25 02/17/25 History furosemide 40 mg tablet 40 mg PO DAILY 10/07/24 02/19/25 02/17/25 History cholecalciferol (vitamin D3) 25 25 mcg PO DAILY 02/19/25 02/19/25 02/17/25 History mcg (1,000 unit) capsule Physical Exam Vital Signs and Narrative: Vital Signs: Last Vital Signs Temp 98.8 F 02/19/25 10:13 Pulse 89 02/19/25 10:13 Resp 18 02/19/25 10:13 BP 188/115 H 02/19/25 10:13 Pulse Ox 94 02/19/25 10:13 O2 Del Method Room Air 02/19/25 10:13 BMI result Body Mass Index 31.3 Appearing in no acute distress, foul smelling urine head is normocephalic atraumatic eyes pupils are PERRLA sclera is anicteric mouth throat mucous membranes are intact and moist neck is supple no lymphadenopathy, no JVD noted lung sounds are clear to auscultation heart regular rate rhythm, clear S1, S2 positive bowel sounds, abdomen is soft, nontender neuro patient is alert x3, no focal deficits Results Labs 02/20/25 06:12 02/20/25 06:12 Labs: Laboratory Results - last 24 hr 02/19/25 02/19/25 02/19/25 08:36 09:38 10:43 MCV 87.0 MCH 29.7 MCHC 34.1 RDW 14.9 Plt Count 158 L MPV 10.6 Immature Gran % (Auto) 0.3 Neut % (Auto) 66.4 Lymph % (Auto) 19.2 L [place] % (Auto) 13.1 H Eos % (Auto) 0.7 Baso % (Auto) 0.3 Lymph # (Auto) 1.3 [place] # (Auto) 0.9 Eos # (Auto) 0.1 Baso # (Auto) 0.0 Abs Immat Gran (auto) 0.02 Absolute Neuts (auto) 4.6 Absolute Nucleated RBC 0.000 Nucleated RBC % (auto) 0.0 Anion Gap 17 Estim Creat Clear Calc 60.9 Estimated GFR 58 Random Glucose 101 Lactic Acid 1.1 Calcium 9.2 Magnesium 2.0 Total Bilirubin 0.8 AST 29 ALT 14 Alkaline Phosphatase 118 H Troponin I High Sens 20.7 H D 19.2 H Total Protein 7.8 Albumin 4.1 Urine Color Dark Yellow Urine Appearance Cloudy Urine pH 6.0 Ur Specific [place] 1.025 Urine Protein 100 (2+) H Urine Glucose (UA) Negative Urine Ketones 40 Urine Blood Trace H Urine Nitrite Positive H Ur Leukocyte Esterase Moderate (2+) H Urine RBC 3-5 H Urine WBC 11-20 Ur Squamous Epith Cells 6-10 Urine Bacteria 3+ Hyaline Casts 6-10 Influenza Type A (PCR) NEGATIVE Influenza Type B (PCR) NEGATIVE RSV RNA Qual (PCR) NEGATIVE SARS-CoV-2 RNA (RT-PCR) NEGATIVE Assessment and Plan (1) UTI (urinary tract infection): Qualifiers: Urinary tract infection type: acute cystitis Status: Acute Plan 75 year old women admitted with presumed ESBL UTI Mild toxic metabolic encephalopathy secondary to UTI, likely ESBL Previous ESBL infections Start Meropenem Follow final urine cx ID consult Hypertension elevated blood pressure continue home medications Hypothyroidism continue levothyroxine Menal Health continue home medications Daughter requesting to have Mental Health capacity examination prior to discharge GERD PPI DVT prophylaxis with Lovenox Full code Quality Stroke Does the patient have a stroke diagnosis?: No VTE Prior VTE?: No VTE Risk Level:: Medical - moderate - high VTE Device Contraindication: Treatment Not Indicated VTE Drug Contraindication: N/A - Med Ordered
--- NOTE | 2025-02-19 12:35 | PHA.MEDREC ---
Addendum entered by Stephanie Colón RPh 02/19/25 12:58: reviewed by [facility]. Original Note: Pharmacy Consult ? Medication Reconciliation Pharmacy has completed the medication reconciliation. Spoke with pt and she confirmed she was just discharged with us 02/10 and she was started on Sucralfate and Ondansetron but finished both those medications in the last few days. Pt also confirmed she was taking Macrobid but confirmed she finished that in the last few weeks.
--- NOTE | 2025-02-19 13:35 | PC.NURSE ---
Provider aware of HTN
--- NOTE | 2025-02-19 13:37 | HO.NURTONUR ---
PER MD: 75 year old women with a history of ESBL UTI presents the ER with confusion and concern for UTI. Patient reported that she gets frequent urinary tract infections and she has been feeling unwell. She noted increased urinary frequency and foul smelling urine which usually give her a clue that she has a UTI. Patient denied fever, chills, nausea, vomiting. UA positive, no fever leukocytosis. Hypertensive urgency noted in the ED systolic blood pressure as high as 220. Patient given IV beta-janusz. She also received a dose of ertapenem. Plan will be to admit patient for further management and treatment of presumed ESBL UTI. PER RN: Alert and oriented IV: 20G in left forearm Meds whole with water Regular diet Plan: ABX for UTI, ID consult, manage HTN, ?capacity eval caitlin aguilar
[2025-02-19] MEDS: oxyCODONE HCl Immed Release 5 MG TABLET 20 MG PO ×2 (15:19→20:01)
--- NOTE | 2025-02-19 16:20 | W.PM.IDCN ---
History of Present Illness Data of Consult Service Date: 02/19/25 Requesting physician: Imelda Byrd Primary Care Provider: Namita Acosta NP HPI Reason for consult: metabolic encephalopathy She presents brought in by daughter with confusion and speech latency. She has no fever or chills or leukocytosis. She denies abdominal pain,dysuria or hematuria,reported foul smell urine. I have seen her monthly seen September for encephalopathy/UTI concerns. Review of Systems Review of Systems: Yes all other systems are reviewed and are negative [facility] Past Medical History Medical History Hypertension Oxygen dependent Urinary tract infection due to extended-spectrum beta lactamase (ESBL) producing Escherichia coli Osteomyelitis COPD (chronic obstructive pulmonary disease) Hypothyroidism Congestive heart failure Fibromyalgia Depression Rheumatoid arthritis Family History Family History Father No problems noted. Other Heart disease Family history: reviewed and not pertinent Surgical History Surgical History Hx of prior ablation treatment Knee joint replacement status Social History Social History Household Members: None Household Members Other:: 0 Housing: Apartment Do you presently have visiting nurse or other home services: Yes ([employer] WORKER's daily and VNA) Alcohol intake: never Comment: bedside commode Patient Tobacco Use Status: Former Tobacco user Tobacco use type: Cigarette Smoked in Last 30 Days: No e-Cigarette/Vaping Use: Never Used Second Hand Smoke Exposure: No Use of substances other than those prescribed or required for medical reasons: No Advance Directives: Yes Advance Directives on File: Yes Advance Directives Date on File: 10/19/23 Do you have a plan to hurt others: No Plan service: No Meds Allergies Allergy/AdvReac Type Severity Reaction Status Date / Time lisinopril (LISINOPRIL) Allergy Severe ANAPHYLAXIS Verified 02/19/25 07:56 Sulfa (Sulfonamide Allergy Intermediate RASH Verified 02/19/25 07:56 Antibiotics) (SULFA (SULFONAMIDE ANTIBIOTICS)) tramadol (TRAMADOL) Allergy Intermediate RASH Verified 02/19/25 07:56 Utlkzlk-XOK-XxT Reductase Allergy Rash Verified 02/19/25 07:56 Inhibitor (Qiewvup-Aky-Crm Reductase Inhibitor) hydrochlorothiazide (HCTZ) AdvReac Unknown ABNORMAL Verified 02/19/25 07:56 LABS? Active Medications: Current Medications Acetaminophen (Acetaminophen 325 Mg Tablet) 650 mg PO Q6H PRN PRN Reason: Pain, Mild 1-3,fever,headache Last Admin: 02/19/25 15:26 Dose: 650 mg Atenolol (Atenolol 50 Mg Tablet) 50 mg PO DAILY [facility]; Protocol Bupropion HCl (Bupropion Hcl Xl 150 Mg Tab.Er.24h) 150 mg PO DAILY@0900 [facility] Bupropion HCl (Bupropion Hcl Xl 300 Mg Tab.Er.24h) 300 mg PO DAILY@0900 [facility] Calcium Carbonate (Calcium Carbonate 750 Mg Tab.Chew) 750 mg PO Q4H PRN PRN Reason: Heartburn Doxazosin Mesylate (Doxazosin Mesylate 2 Mg Tablet) 2 mg PO BEDTIME [facility]; Protocol Enoxaparin Sodium (Enoxaparin Sodium 40 Mg/0.4 Ml Syringe) 40 mg SUBCUT Q24H [facility] Last Admin: 02/19/25 12:11 Dose: 40 mg Fluticasone Propionate (Fluticasone Propionate Nasal 16 Gm [place]) 1 spray NOSTRIL-B BID PRN PRN Reason: Allergy Symptoms Folic Acid (Folic Acid 1 Mg Tablet) 2 mg PO DAILY [facility] Furosemide (Furosemide 40 Mg Tablet) 40 mg PO DAILY [facility]; Protocol Levothyroxine Sodium (Levothyroxine Sodium 50 Mcg Tablet) 50 mcg PO DAILY@0600 [facility] Magnesium Hydroxide (Milk Of Magnesia 30 Ml Oral.Susp) 30 ml PO DAILY PRN PRN Reason: Constipation Melatonin (Melatonin 3 Mg Tablet) 6 mg PO BEDTIME PRN PRN Reason: Insomnia Meropenem (Meropenem 1 Gm Vial) 1 gm IVPUSH Q8H [facility] Multivitamins/Vitamin C (Multivitamin Tablet) 1 tab PO DAILY [facility] Omeprazole (Omeprazole 40 Mg Capsule.Dr) 40 mg PO DAILY@0630 [facility] Ondansetron HCl (Ondansetron Hcl 4 Mg/2 Ml Vial) 4 mg IVPUSH Q8H PRN PRN Reason: Nausea and Vomiting Oxycodone HCl (Oxycodone Hcl Immed Release 5 Mg Tablet) 20 mg PO Q4H PRN PRN Reason: pain (scale score 7-10) Last Admin: 02/19/25 15:19 Dose: 20 mg Pregabalin (Pregabalin 200 Mg Capsule) 200 mg PO BID [facility] Sodium Chloride (0.9 % Sodium Chloride Flush 3 Ml Syringe) 3 ml IVFLUSH QSHIFT [facility] Vitamin D (Cholecalciferol (Vitamin D3) 25 Mcg Tablet) 25 mcg PO DAILY [facility] Home Medications ?Medication ?Instructions ?Recorded ?Confirmed ?Last Taken ?Type bupropion HCl 300 mg 24 hr tablet, 300 mg PO DAILY@0900 08/23/21 02/19/25 02/17/25 History extended release levothyroxine 50 mcg tablet 50 mcg PO DAILY@0600 08/23/21 02/19/25 02/17/25 History methotrexate sodium 2.5 mg tablet 25 mg PO TU 08/23/21 02/19/25 02/11/25 History omeprazole 40 mg capsule,delayed 40 mg PO DAILY@0630 08/23/21 02/19/25 02/17/25 History release prednisone 1 mg tablet 4 mg PO DAILY 08/23/21 02/19/25 02/17/25 History pregabalin 200 mg capsule 200 mg PO BID 01/07/23 02/19/25 02/17/25 History folic acid 1 mg tablet 2 mg PO DAILY 10/13/23 02/19/25 02/17/25 History bupropion HCl 150 mg 24 hr tablet, 150 mg PO DAILY@0900 11/25/23 02/19/25 02/17/25 History extended release acetaminophen 325 mg tablet 650 mg PO Q4H PRN Moderate Pain 03/04/24 02/19/25 Unknown History (Tylenol) (Scale Score 5-6) ibuprofen 200 mg tablet 600 mg PO Q6H PRN Pain 05/03/24 02/19/25 Unknown History melatonin 10 mg tablet 10 mg PO BEDTIME PRN Sleep 05/03/24 02/19/25 Unknown History multivitamin 1 tab PO DAILY 05/03/24 02/19/25 02/17/25 History atenolol 25 mg tablet 50 mg PO DAILY 08/29/24 02/19/25 02/17/25 History fluticasone propionate 50 1 spray intranasal BID PRN Allergy 08/29/24 02/19/25 Unknown History mcg/actuation nasal Symptoms spray,suspension biotin 1 mg tablet 1 mg PO DAILY 10/07/24 02/19/25 02/17/25 History furosemide 40 mg tablet 40 mg PO DAILY 10/07/24 02/19/25 02/17/25 History cholecalciferol (vitamin D3) 25 25 mcg PO DAILY 02/19/25 02/19/25 02/17/25 History mcg (1,000 unit) capsule Physical Exam Vital Signs: Vital Signs: Last Vital Signs Temp 97.7 F 02/19/25 15:13 Pulse 75 02/19/25 15:13 Resp 18 02/19/25 15:13 BP 160/90 H 02/19/25 15:52 Pulse Ox 95 02/19/25 15:13 O2 Del Method Room Air 02/19/25 15:13 BMI result Body Mass Index 31.4 Const: General: cooperative HEENT: Head: Yes normal to inspection Face and sinus: Yes normal facial exam Mouth: Normal oral and palatal mucosa present Teeth and gingiva: dentition normal Eyes: General: appearance normal, both eyes and all related structures Pupils: Equal, round and reactive pupils present Resp: Effort & Inspection: normal respiratory effort Cardio: Rate: regular rate Rhythm: regular rhythm GI: Palpation (GI): Soft to palpation and nontender : General: Yes no CVA tenderness Back/Spine/Pelvis: Back: no CVA tenderness Skin: General skin exam: no rashes or lesions noted Neuro: General: moves all extremities Cranial nerves: Yes Equal, round and reactive pupils present Extrem: General: Yes normal to inspection Psych: Appearance: grossly normal Results Labs 02/19/25 08:36 02/19/25 08:36 Labs: Short CBC 02/19/25 Range/Units 08:36 WBC 6.9 (4.8-10.8) X10*3/uL Hgb 14.6 (12.0-16.0) g/dl Hct 42.8 (37.0-47.0) % Plt Count 158 L (160-400) X10*3/uL BMP 02/19/25 08:36 Sodium 139 Potassium 3.5 Chloride 104 Carbon Dioxide 22 BUN 11 Creatinine 0.95 Calcium 9.2 Liver Function 02/19/25 Range/Units 08:36 Total Bilirubin 0.8 (0.0-1.0) mg/dL AST 29 (5-31) U/L ALT 14 (0-31) U/L Alkaline Phosphatase 118 H (39-117) U/L Albumin 4.1 (3.5-5.0) g/dL Urine // Range/Units 10:43 Urine Color Dark Yellow Urine Appearance Cloudy Urine pH 6.0 (5.0-9.0) Ur Specific [place] 1.025 (1.005-1.025) Urine Protein 100 (2+) H (Neg-Trace) mg/dL Urine Glucose (UA) Negative (Negative) mg/dL Assessment and Plan (1) Confusion: Status: Acute Plan She has reported encephalopathy/confusion brought in by daughter 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 Perhaps Neurology can help with alternate encephalopathy causes?dementia/B12 deficiency/others
[2025-02-19] MEDS: 0.9 % Sodium Chloride Flush 3 ML SYRINGE IVFLUSH ×2 (16:45→19:57)
[2025-02-20] VITALS (7 sets, daily range): BP systolic 128–177; BP diastolic 74–92; PULSE 67–91; RESP 16–18; TEMP 36.1–37; O2SAT 92–95
[2025-02-20] MEDS: oxyCODONE HCl Immed Release 5 MG TABLET 20 MG PO ×3 (01:09→18:16)
[2025-02-20 06:45] LABS: Hematocrit 39.4 % (37.0-47.0); Hemoglobin 13.0 g/dl (12.0-16.0); Mean Corpuscular HGB Conc 33.0 g/dl (31.0-35.0); Mean Corpuscular Hemoglobin 29.5 pg (27.0-33.0); Mean Corpuscular Volume 89.3 fL (80.0-98.0); NRBC Abs Auto 0.000 X10*3/uL (0.0-0.012); NRBC Pct Auto 0.0 /100WBC (0.0-0.2); Platelet Count 158 X10*3/uL (160-400); Red Blood Count 4.41 X10*6/uL (4.20-5.50); White Blood Count 6.4 X10*3/uL (4.8-10.8)
[2025-02-20 07:10] LABS: Blood Urea Nitrogen 13 mg/dL (9-16); Calcium 8.8 mg/dL (8.4-10.2); Creatinine Clr Calc Pharmacy 49.1; Estimated Glomerular Filt Rate 45
[2025-02-20 07:23] LABS: Anion Gap 12 (12-20); Carbon Dioxide 27 mmol/L (22-29); Chloride 104 mmol/L (96-108); Potassium 3.4 mmol/L (3.3-5.1); Sodium 140 mmol/L (135-145)
[2025-02-20] MEDS: buPROPion HCl XL 150 MG TAB.ER.24H PO (09:11)
[2025-02-20] MEDS: buPROPion HCl XL 300 MG TAB.ER.24H PO (09:11)
[2025-02-20] MEDS: 0.9 % Sodium Chloride Flush 3 ML SYRINGE IVFLUSH ×2 (09:12→18:11)
--- NOTE | 2025-02-20 11:32 | P.PNIM_ITS ---
Subjective Subjective Date of Service: 02/20/25 Interval History: No new issues today. Patient reports her cognitive function had improved - back to clinical baseline. No abdominal pain - some difficulty urinating currently. Review of Systems Review of Systems: Yes all other systems are reviewed and are negative Physical Exam 2 Exam: Exam: General: A&O x3, oriented to time place person and situation, comfortable, no pain Cardiac: S1, S2 auscultated with no S3/4, no MRG. Well perfused. Respiratory: Normal breath sounds auscultated throughout all lung zones, without wheezing, rales. Normal rate. GI/ : No abdominal pain on palpation, no masses or distentions. MSK: Normal ambulation without pain at bony prominences or musculature Neurological: Normal neurological examination on overview, without obvious CN II-XII abnormalities. Vital Signs: Vital Signs: Last Vital Signs Temp 98.1 F 02/20/25 07:35 Pulse 91 02/20/25 07:35 Resp 16 02/20/25 07:35 BP 177/92 H 02/20/25 07:35 Pulse Ox 95 02/20/25 07:35 O2 Del Method Room Air 02/20/25 07:35 BMI result Body Mass Index 31.4 Objective Data Active Medications Acetaminophen (Acetaminophen 325 Mg Tablet) 650 mg PO Q6H PRN PRN Reason: Pain, Mild 1-3,fever,headache Last Admin: 02/19/25 15:26 Dose: 650 mg Documented By: MELISSA Comments: given for headache Atenolol (Atenolol 50 Mg Tablet) 50 mg PO DAILY [facility]; Protocol Last Admin: 02/20/25 09:11 Dose: 50 mg Documented By: BRANDON Bupropion HCl (Bupropion Hcl Xl 150 Mg Tab.Er.24h) 150 mg PO DAILY@0900 [facility] Last Admin: 02/20/25 09:11 Dose: 150 mg Documented By: BRANDON Bupropion HCl (Bupropion Hcl Xl 300 Mg Tab.Er.24h) 300 mg PO DAILY@0900 [facility] Last Admin: 02/20/25 09:11 Dose: 300 mg Documented By: BRANDON Calcium Carbonate (Calcium Carbonate 750 Mg Tab.Chew) 750 mg PO Q4H PRN PRN Reason: Heartburn Doxazosin Mesylate (Doxazosin Mesylate 2 Mg Tablet) 2 mg PO BEDTIME [facility]; Protocol Last Admin: 02/19/25 19:57 Dose: 2 mg Documented By: JACQUELIN Enoxaparin Sodium (Enoxaparin Sodium 40 Mg/0.4 Ml Syringe) 40 mg SUBCUT Q24H [facility] Last Admin: 02/19/25 12:11 Dose: 40 mg Documented By: ANGEL Fluticasone Propionate (Fluticasone Propionate Nasal 16 Gm [place]) 1 spray NOSTRIL-B BID PRN PRN Reason: Allergy Symptoms Folic Acid (Folic Acid 1 Mg Tablet) 2 mg PO DAILY [facility] Last Admin: 02/20/25 09:11 Dose: 2 mg Documented By: BRANDON Furosemide (Furosemide 40 Mg Tablet) 40 mg PO DAILY [facility]; Protocol Last Admin: 02/20/25 09:11 Dose: 40 mg Documented By: BRANDON Levothyroxine Sodium (Levothyroxine Sodium 50 Mcg Tablet) 50 mcg PO DAILY@0600 [facility] Last Admin: 02/20/25 05:40 Dose: 50 mcg Documented By: JACQUELIN Magnesium Hydroxide (Milk Of Magnesia 30 Ml Oral.Susp) 30 ml PO DAILY PRN PRN Reason: Constipation Melatonin (Melatonin 3 Mg Tablet) 6 mg PO BEDTIME PRN PRN Reason: Insomnia Meropenem (Meropenem 1 Gm Vial) 1 gm IVPUSH Q8H [facility] Last Admin: 02/20/25 09:50 Dose: 1 gm Documented By: BRANDON Multivitamins/Vitamin C (Multivitamin Tablet) 1 tab PO DAILY [facility] Last Admin: 02/20/25 09:11 Dose: 1 tab Documented By: BRANDON Omeprazole (Omeprazole 40 Mg Capsule.Dr) 40 mg PO DAILY@0630 [facility] Last Admin: 02/20/25 05:40 Dose: 40 mg Documented By: JACQUELIN Ondansetron HCl (Ondansetron Hcl 4 Mg/2 Ml Vial) 4 mg IVPUSH Q8H PRN PRN Reason: Nausea and Vomiting Oxycodone HCl (Oxycodone Hcl Immed Release 5 Mg Tablet) 20 mg PO Q4H PRN PRN Reason: pain (scale score 7-10) Last Admin: 02/20/25 09:11 Dose: 20 mg Documented By: BRANDON Pregabalin (Pregabalin 200 Mg Capsule) 200 mg PO BID [facility] Last Admin: 02/20/25 09:11 Dose: 200 mg Documented By: BRANDON Sodium Chloride (0.9 % Sodium Chloride Flush 3 Ml Syringe) 3 ml IVFLUSH QSHIFT [facility] Last Admin: 02/20/25 09:12 Dose: 3 ml Documented By: BRANDON Vitamin D (Cholecalciferol (Vitamin D3) 25 Mcg Tablet) 25 mcg PO DAILY [facility] Last Admin: 02/20/25 09:11 Dose: 25 mcg Documented By: BRANDON Labs 02/20/25 06:12 02/20/25 06:12 Labs: Laboratory Results - last 24 hr 02/20/25 06:12 MCV 89.3 MCH 29.5 MCHC 33.0 RDW 15.1 Plt Count 158 L MPV 10.8 Absolute Nucleated RBC 0.000 Nucleated RBC % (auto) 0.0 Anion Gap 12 Estim Creat Clear Calc 49.1 Estimated GFR 45 Random Glucose 103 Calcium 8.8 Microbiology Microbiology Results: Microbiology 02/19/25 08:36 Blood Culture - Preliminary Blood - Venous No growth after 24 hours. 02/19/25 08:36 Blood Culture - Preliminary Blood - Venous No growth after 24 hours. Assessment and Plan (1) Hypotension: Status: Acute (2) Peripheral artery disease: Status: Acute (3) Acute kidney injury: Status: Acute (4) UTI (urinary tract infection): Status: Acute (5) Osteomyelitis: Status: Acute (6) Periprosthetic fracture around internal prosthetic left knee joint: Status: Acute (7) Left knee pain: Status: Acute (8) Lower extremity weakness: Status: Acute (9) Confusion: Status: Acute Plan 75 year old woman, with a background history of HTN, HLD, PAD, ESBL UTI, presenting with dysuria, pyuria, tenesmus, admitted with presumed ESBL UTI & acute delirium. Mild toxic metabolic encephalopathy secondary to UTI, likely ESBL Previous ESBL infections Continue Meropenem Follow final urine cx ID consult Hypertension Hypertensive urgency Elevated blood pressure continue home medications Hypothyroidism continue levothyroxine [facility] continue home medications Daughter requesting to have Mental Health capacity examination prior to discharge GERD PPI QUALITY METRICS - VTE: Enoxaparin - CODE STATUS: Full code - DIET: Regular Total time managing care of this patient today: 45 minutes. Quality Stroke Does the patient have a stroke diagnosis?: No VTE Prior VTE?: No VTE Risk Level:: Medical - moderate - high VTE Device Contraindication: Treatment Not Indicated VTE Drug Contraindication: N/A - Med Ordered
--- NOTE | 2025-02-20 16:00 | MHC.CM.PN ---
PT REPORTS SHE LIVES ALONE AND REQUIRES ASSISTANCE WITH PERSONAL CARE SHE HAS [employer]PERATIONS [employer] AND IS ACTIVE WITH [employer] SHE HAS AN ELECTRIC W/C AND HOSPITAL BED HCP ON FILE PCP: GINO MICHAEL IMM DELIVERED DCP TBD: DAUGHTER REQUESTING A CAPACITY EVAL PRIOR TO DC. PT WOULD LIKE TO DC HOME WITH RESUMPTION OF SERVICES SHE WILL NEED BLS TRANSPORT
[2025-02-21] MEDS: 0.9 % Sodium Chloride Flush 3 ML SYRINGE IVFLUSH ×3 (01:22→15:54)
[2025-02-21 03:12] VITALS: BP 114/56; PULSE 68; RESP 18; TEMP 36.8; O2SAT 92
[2025-02-21] MEDS: oxyCODONE HCl Immed Release 5 MG TABLET 20 MG PO ×4 (06:19→20:22)
[2025-02-21 07:30] VITALS: BP 136/62; PULSE 72; RESP 16; TEMP 36.5; O2SAT 94
[2025-02-21] MEDS: buPROPion HCl XL 300 MG TAB.ER.24H PO (08:03)
[2025-02-21] MEDS: buPROPion HCl XL 150 MG TAB.ER.24H PO (08:03)
[2025-02-21] MEDS: Milk of Magnesia 30 ML ORAL.SUSP PO (08:04)
--- NOTE | 2025-02-21 11:28 | P.PNIM_ITS ---
Subjective Subjective Date of Service: 02/21/25 Interval History: No new complaints or issues to report today. Had no issues overnight Reports improvement in urinary symptoms Reports mental fogginess has improvement Urinalysis has revealed 10-50K of V.Strep & GNR's detected <10K Holding meropenem for now Review of Systems Review of Systems: Yes all other systems are reviewed and are negative Physical Exam 2 Exam: Exam: General: A&O x3, oriented to time place person and situation, comfortable, no pain Cardiac: S1, S2 auscultated with no S3/4, no MRG. Well perfused. Respiratory: Normal breath sounds auscultated throughout all lung zones, without wheezing, rales. Normal rate. GI/ : No abdominal pain on palpation, no masses or distentions. MSK: Normal ambulation without pain at bony prominences or musculature Neurological: Normal neurological examination on overview, without obvious CN II-XII abnormalities. Vital Signs: Vital Signs: Last Vital Signs Temp 97.7 F 02/21/25 07:30 Pulse 72 02/21/25 07:30 Resp 16 02/21/25 07:30 BP 136/62 02/21/25 07:30 Pulse Ox 94 02/21/25 07:30 O2 Del Method Room Air 02/21/25 07:30 BMI result Body Mass Index 31.4 Objective Data Active Medications Acetaminophen (Acetaminophen 325 Mg Tablet) 650 mg PO Q6H PRN PRN Reason: Pain, Mild 1-3,fever,headache Last Admin: 02/19/25 15:26 Dose: 650 mg Documented By: MELISSA Comments: given for headache Atenolol (Atenolol 50 Mg Tablet) 50 mg PO DAILY [facility]; Protocol Last Admin: 02/21/25 08:03 Dose: 50 mg Documented By: LAZARA Bupropion HCl (Bupropion Hcl Xl 150 Mg Tab.Er.24h) 150 mg PO DAILY@0900 [facility] Last Admin: 02/21/25 08:03 Dose: 150 mg Documented By: LAZARA Bupropion HCl (Bupropion Hcl Xl 300 Mg Tab.Er.24h) 300 mg PO DAILY@0900 [facility] Last Admin: 02/21/25 08:03 Dose: 300 mg Documented By: LAZARA Calcium Carbonate (Calcium Carbonate 750 Mg Tab.Chew) 750 mg PO Q4H PRN PRN Reason: Heartburn Doxazosin Mesylate (Doxazosin Mesylate 2 Mg Tablet) 2 mg PO BEDTIME [facility]; Protocol Last Admin: 02/20/25 21:48 Dose: 2 mg Documented By: RADHA Enoxaparin Sodium (Enoxaparin Sodium 40 Mg/0.4 Ml Syringe) 40 mg SUBCUT Q24H [facility] Last Admin: 02/21/25 10:32 Dose: 40 mg Documented By: MIKE Fluticasone Propionate (Fluticasone Propionate Nasal 16 Gm [place]) 1 spray NOSTRIL-B BID PRN PRN Reason: Allergy Symptoms Folic Acid (Folic Acid 1 Mg Tablet) 2 mg PO DAILY [facility] Last Admin: 02/21/25 08:04 Dose: 2 mg Documented By: LAZARA Furosemide (Furosemide 40 Mg Tablet) 40 mg PO DAILY [facility]; Protocol Last Admin: 02/21/25 08:03 Dose: 40 mg Documented By: LAZARA Levothyroxine Sodium (Levothyroxine Sodium 50 Mcg Tablet) 50 mcg PO DAILY@0600 [facility] Last Admin: 02/21/25 05:39 Dose: 50 mcg Documented By: RADHA Magnesium Hydroxide (Milk Of Magnesia 30 Ml Oral.Susp) 30 ml PO DAILY PRN PRN Reason: Constipation Last Admin: 02/21/25 08:04 Dose: 30 ml Documented By: LAZARA Melatonin (Melatonin 3 Mg Tablet) 6 mg PO BEDTIME PRN PRN Reason: Insomnia Meropenem (Meropenem 1 Gm Vial) 1 gm IVPUSH Q8H [facility] On Hold: 02/21/25 09:50 Last Admin: 02/21/25 08:09 Dose: 1 gm Documented By: LAZARA Multivitamins/Vitamin C (Multivitamin Tablet) 1 tab PO DAILY [facility] Last Admin: 02/21/25 08:03 Dose: 1 tab Documented By: LAZARA Omeprazole (Omeprazole 40 Mg Capsule.) 40 mg PO DAILY@0630 [facility] Last Admin: 02/21/25 05:39 Dose: 40 mg Documented By: RADHA Ondansetron HCl (Ondansetron Hcl 4 Mg/2 Ml Vial) 4 mg IVPUSH Q8H PRN PRN Reason: Nausea and Vomiting Oxycodone HCl (Oxycodone Hcl Immed Release 5 Mg Tablet) 20 mg PO Q4H PRN PRN Reason: pain (scale score 7-10) Last Admin: 02/21/25 10:32 Dose: 20 mg Documented By: MIKE Pregabalin (Pregabalin 200 Mg Capsule) 200 mg PO BID [facility] Last Admin: 02/21/25 08:03 Dose: 200 mg Documented By: LAZARA Sodium Chloride (0.9 % Sodium Chloride Flush 3 Ml Syringe) 3 ml IVFLUSH QSHIFT [facility] Last Admin: 02/21/25 08:06 Dose: 3 ml Documented By: LAZARA Vitamin D (Cholecalciferol (Vitamin D3) 25 Mcg Tablet) 25 mcg PO DAILY [facility] Last Admin: 02/21/25 08:04 Dose: 25 mcg Documented By: LAZARA Labs 02/20/25 06:12 02/20/25 06:12 Microbiology Microbiology Results: Microbiology 02/19/25 08:36 Blood Culture - Preliminary Blood - Venous No growth after 48 hours. 02/19/25 08:36 Blood Culture - Preliminary Blood - Venous No growth after 48 hours. 02/19/25 Unknown Urine Culture - Final Urine clean catch - Clean Catch Midstream Viridans streptococcus group Gram negative altaf Assessment and Plan (1) Hypotension: Status: Acute (2) Peripheral artery disease: Status: Acute (3) Sinusitis: Status: Acute (4) Acute kidney injury: Status: Acute (5) UTI (urinary tract infection): Status: Acute (6) Osteomyelitis: Status: Acute (7) Periprosthetic fracture around internal prosthetic left knee joint: Status: Acute (8) Confusion: Status: Acute (9) Left knee pain: Status: Acute (10) Lower extremity weakness: Status: Acute Plan 75 year old woman, with a background history of HTN, HLD, PAD, ESBL UTI, presenting with dysuria, pyuria, tenesmus, admitted with presumed ESBL UTI & acute delirium. Mild toxic metabolic encephalopathy The patient presented with metabolic encephalopathy. Suspected due to UTI - however, this has been ruled out. Possibly due to polypharmacy UTI, likely ESBL Previous ESBL infections Urinalysis has revealed 10-50K of V.Strep & GNR's detected <10K Follow final urine cx ID consult placed - recs appreciated HOLD Meropenem Hypertension Hypertensive urgency Elevated blood pressure continue home medications Hypothyroidism continue levothyroxine [facility] continue home medications Daughter requesting to have Mental Health capacity examination prior to discharge GERD PPI QUALITY METRICS - VTE: Enoxaparin - CODE STATUS: Full code - DIET: Regular Total time managing care of this patient today: 35 minutes. Quality Stroke Does the patient have a stroke diagnosis?: No VTE Prior VTE?: No VTE Risk Level:: Medical - moderate - high VTE Device Contraindication: Treatment Not Indicated VTE Drug Contraindication: N/A - Med Ordered
[2025-02-21 15:00] VITALS: BP 150/67; PULSE 79; RESP 18; TEMP 36.3; O2SAT 97
--- NOTE | 2025-02-21 16:00 | MHC.CM.PN ---
PER MD NOTE/ROUNDS, PT WILL NOT DC TODAY. PLAN TO CONTINUE LEVOTHYROXINE DAUGHTER ALSO REQUESTING CAPACITY EVAL PRIOR TO DC
--- NOTE | 2025-02-21 17:09 | P.CDIM_ITS ---
PROVIDER RESPONSE TEXT: To clarify, the appropriate diagnosis supported by the clinical indicators: Diastolic: chronic QUERY TEXT: PHYSICIAN'S DOCUMENTATION REQUEST Date of Query: 02/21/2025 11:27 AM EST Patient Name: Alexandrea Renee Admit Date: 02/19/2025 Dear Brendan Eaton MD, A review of the medical record indicates additional documentation may be needed. Please review below and update the documentation accordingly. Clinical Indicators: ED and H&P 02/19/25 - Past medical history: Congestive heart failure Home medication: Furosemide 40mg PO daily History of Echo performed. Please provide further specificity regarding the most likely type and acuity of CHF: Systolic Please specify if Acute, Chronic, or Acute on chronic, or Unable to determine Diastolic Please specify if Acute, Chronic, or Acute on chronic, or Unable to determine Combined Systolic/Diastolic Please specify if Acute, Chronic, or Acute on chronic, or Unable to determine Other (explain) Clinically unable to determine (explain) Thank you, Callie Mccormick, CCS, CDIS Use of terms such as suspected, likely, concern for, or probable (associated with a specific diagnosis that is being evaluated, monitored, or treated as if it exists) are acceptable and can be coded in the inpatient setting, when documented at the time of discharge. Please use your independent medical judgment in providing your response. THIS QUERY IS PART OF THE PERMANENT MEDICAL RECORD
[2025-02-21 19:58] VITALS: BP 114/62; PULSE 76; RESP 16; TEMP 37; O2SAT 92
[2025-02-22 03:22] VITALS: BP 121/57; PULSE 69; RESP 14; TEMP 36.2; O2SAT 93
[2025-02-22 03:58] VITALS: BP 121/57; PULSE 69; RESP 14; TEMP 36.2; O2SAT 93
[2025-02-22] MEDS: oxyCODONE HCl Immed Release 5 MG TABLET 20 MG PO ×3 (05:46→12:57)
[2025-02-22 07:27] VITALS: BP 135/80; PULSE 69; RESP 16; TEMP 37; O2SAT 92
[2025-02-22] MEDS: buPROPion HCl XL 150 MG TAB.ER.24H PO (08:01)
[2025-02-22] MEDS: buPROPion HCl XL 300 MG TAB.ER.24H PO (08:01)
[2025-02-22] MEDS: 0.9 % Sodium Chloride Flush 3 ML SYRINGE IVFLUSH (08:08)
--- NOTE | 2025-02-22 11:58 | P.DS_ITS ---
DS: Providers Provider Date of Service: 02/22/25 Date of admission: 02/19/25 11:53 Date of discharge: 02/22/25 Primary care physician: Namita Acosta NP Consults: 02/19/25 12:39 Consult to Infectious Diseases Routine Consulting Provider: [facility] Reason for consultation: ESBL uti DS: Diagnosis Discharge Diagnosis (1) Hypotension: Status: Acute (2) Peripheral artery disease: Status: Acute (3) Sinusitis: Status: Acute (4) Acute kidney injury: Status: Acute (5) UTI (urinary tract infection): Status: Acute (6) Osteomyelitis: Status: Acute (7) Periprosthetic fracture around internal prosthetic left knee joint: Status: Acute (8) Confusion: Status: Acute (9) Left knee pain: Status: Acute (10) Lower extremity weakness: Status: Acute DS: Summary Hospital Course Hospital Course: 75 year old woman, with a background history of HTN, HLD, PAD, ESBL UTI, presenting with dysuria, pyuria, tenesmus, admitted with presumed ESBL UTI & acute delirium. PRESENTATION 75 year old women with a history of ESBL UTI presents the ER with confusion and concern for UTI. Patient reported that she gets frequent urinary tract infections and she has been feeling unwell. She noted increased urinary frequency and foul smelling urine which usually give her a clue that she has a UTI. Patient denied fever, chills, nausea, vomiting. UA positive, no fever leukocytosis. Hypertensive urgency noted in the ED systolic blood pressure as high as 220. Patient given IV [id number]. She also received a dose of ertapenem. PROBLEM LIST Toxic Encephalopathy Polypharmacy The patient presented with likely toxic encephalopathy. Suspected due to UTI - however, this has been ruled out. Likely due to polypharmacy. Patient describes intermittent episodes of confusion and altered mental status presumed to be 2/2 UTIs. Where as some of these episodes of altered mental status could be 2/2 UTIs, this was not the case during this admission. UTI was ruled out early, and antibiotics discontinued after 1 dose. Suspected that the patient has toxic encephalopathy may be 2/2 combination of oxycodone, pregabalin, bupropion. This may also be precipitated in the setting of acute kidney injuries with their superimposed UTIs. History was obtained from the patient as well as collateral sources; frequent reports of hallucinations, altered mental status, irritable behaviors while on chronic pain medications. Based on my evaluation during this admission, the patient demonstrates capacity - able to understand questions and discussions, and responds appropriately, shows future planning and orientation, objectives and goals. She is able to repeat our discussions back to me; and demonstrates an understanding of them. RECOMMENDATIONS - follow up with PCP within 1 week of discharge - reassess medication regimen and safety of utilization in geriatric patient - consider referral to pain specialist for psychiatry services for complex management History of UTIs History of ESBL Previous ESBL infections Urinalysis has revealed 10-50K of V.Strep & GNR's detected <10K Antibiotics were held early This was confirmed by Infectious diseases, agreeing no evidence of active UTI. Infectious diseases has seen patient multiple times (monthly) in-hospital since September, as per documentation. Hypertension Hypertensive urgency Elevated blood pressure continue home medications Hypothyroidism continue levothyroxine [facility] continue home medications Daughter requesting to have Mental Health capacity examination prior to discharge The patient demonstrates capacity to make her own medical decisions as stated above GERD PPI Status at Discharge Cognitive/behavioral status at discharge: Alert and oriented to person place time and situation Functional status at discharge: uses cane/walker Overall status at discharge: patient is back to baseline Time Attestation Total time managing care of this patient today: 45 mintues. Discharge Coordination Time (in mins): 35 Quality: Safe Use of Opioids Does Pt have an Active Cancer Diagnosis on the Problem List?: No Quality: Stroke Does the patient have a stroke diagnosis?: No Physical Exam Exam: Exam: General: A&O x3, oriented to time place person and situation, comfortable, no pain Cardiac: S1, S2 auscultated with no S3/4, no MRG. Well perfused. Respiratory: Normal breath sounds auscultated throughout all lung zones, without wheezing, rales. Normal rate. GI/ : No abdominal pain on palpation, no masses or distentions. MSK: Normal ambulation without pain at bony prominences or musculature Neurological: Normal neurological examination on overview, without obvious CN II-XII abnormalities. Vital Signs: Vital Signs: Last Vital Signs Temp 98.6 F 02/22/25 07:27 Pulse 69 02/22/25 07:27 Resp 16 02/22/25 07:27 BP 135/80 02/22/25 07:27 Pulse Ox 92 02/22/25 07:27 O2 Del Method Room Air 02/22/25 07:27 BMI result Body Mass Index 31.4 DS: Data Data Completed and Pending Completed studies during hospitalization [Text1]: Procedures Insertion of Infusion Device into Right Basilic Vein, Percutaneous Approach (11/19/24) Insertion of Infusion Device into Right Brachial Vein, Percutaneous Approach (12/27/24) Insertion of Infusion Device into Right Cephalic Vein, Percutaneous Approach (10/13/23) Labs on day of discharge: Preliminary micro results at discharge 02/19/25 08:36 Blood Culture - Preliminary Blood - Venous No growth after 48 hours. 02/19/25 08:36 Blood Culture - Preliminary Blood - Venous No growth after 48 hours. Discharge Plan Discharge Anticipated Discharge Date/Time: 02/22/25 12:10 Patient Disposition: Home, Self-Care Discharge Diagnosis: Acute toxic encephalopathy 2/2 polypharmacy Referrals: Namita Acosta [employer] [Primary Care Provider, Internal Medicine] - 1 Week Discharge Medications: Continued omeprazole 40 mg capsule,delayed release(DR/EC) 40 mg PO DAILY@0630 methotrexate sodium 2.5 mg tablet 25 mg PO TU prednisone 1 mg tablet 4 mg PO DAILY levothyroxine 50 mcg tablet 50 mcg PO DAILY@0600 bupropion HCl 300 mg tablet extended release 24 hr 300 mg PO DAILY@0900 folic acid 1 mg tablet 2 mg PO DAILY doxazosin 2 mg Tablet 2 mg PO BEDTIME Qty: 30 0RF Protocol: Hold for SBP< HOLD for SBP < : 90 bupropion HCl 150 mg tablet extended release 24 hr 150 mg PO DAILY@0900 multivitamin Tablet 1 tab PO DAILY ibuprofen 200 mg Tablet 600 mg PO Q6H PRN (Reason: Pain) melatonin 10 mg Tablet 10 mg PO BEDTIME PRN (Reason: Sleep) pregabalin 200 mg capsule 200 mg PO BID oxycodone 20 mg tablet 20 mg PO Q4H PRN (Reason: pain (scale score 7-10)) Qty: 20 0RF acetaminophen [Tylenol] 325 mg Tablet 650 mg PO Q4H PRN (Reason: Moderate Pain (Scale Score 5-6)) fluticasone propionate 50 mcg/actuation [place],Suspension 1 spray INTRANASAL BID PRN (Reason: Allergy Symptoms) Rx Instructions: administer into each nostril atenolol 25 mg tablet 50 mg PO DAILY Protocol: Hold for SBP/HR < HOLD for SBP < : 90 HOLD for HR < : 60 furosemide 40 mg tablet 40 mg PO DAILY biotin 1 mg Tablet 1 mg PO DAILY methenamine hippurate 1 gram tablet 1 g PO DAILY 90 Days Qty: 90 0RF cholecalciferol (vitamin D3) 25 mcg (1,000 unit) capsule 25 mcg PO DAILY Discharge Orders: Discharge Order (Routine); Ordered 02/22/25 Ordered By: Brendan Eaton Diet: Advance to usual diet Activity on Discharge: As tolerated Stand Alone Forms: Patient Portal Discharge page Print Language: Nepalese Care Plan Goals: As above Health Concerns: Concerns have been raised regarding patient's polypharmacy Plan of Treatment: Follow up with the PCP within 1 week of discharge Re-evaluate the patient's pain regimen 2/2 repeated admissions for toxic encephalopathy Consider referral to pain specialty or Psychiatry for complex pain management Assessment: Hemodynamically stable for discharge. Patient demonstrates capacity, is alert oriented to person place time and situation Concerns are raised regarding patient's pain regimen and likely contribution to patient's altered mental status
[2025-02-22 14:05] VITALS: BP 138/71; PULSE 66; RESP 18; TEMP 36.3; O2SAT 96
--- NOTE | 2025-02-22 16:10 | MHC.CM.PN ---
Addendum entered by Ina Patterson 02/24/25 10:50: CORRECTION: PT DISCHARGED HOME WITH RESUMPTION OF AGRICULTURE MANAGER SERVICES PAULIE CARRILLO DISCHARGED THE PT ON 02/17/25 Original Note: PT CLEARED TO DC HOME TODAY WITH RESUMPTION OF AGRICULTURE MANAGER AND LORENA JONES AT [facility] WAS CONTACTED VIA T/C, SHE REPORTS THERE IS A AGRICULTURE MANAGER ON STANDBY FOR WHEN SHE IS DISCHARGED. PAULIE CARRILLO NOTIFIED OF DC VIA [facility] SPOKE TO PTS DAUGHTER, NOA, WHO STATES SHE HAD A GREAT CONVERSATION WITH THE HOSPITALIST AND FEELS BETTER ABOUT THE PLAN. SHE SAYS NO ONE EVER CALLED BACK FROM [facility] ABOUT PTS ONGOING CASE. NOA IS AWARE PTS AMBULANCE IS BOOKED FOR 1500 HOURS WITH [facility]
== END 2025-02-22 15:48 | disposition home or self-care (01) | DRG 92 ==
LOC: HO.ED 11:44 → HO.EDOVER 11:54 → HO.S3 14:09
PROVIDERS: Physician Assistant Medical; Admitting Provider Nurse Practitioner Acute Care; Emergency Provider Emergency Medicine; PCP Nurse Practitioner Adult Health; Visit Provider Hospitalist
DX: G92.8 Other toxic encephalopathy (principal); I50.32 Chronic diastolic (congestive) heart failure; T40.2X5A Adverse effect of other opioids, initial encounter; T43.295A Adverse effect of other antidepressants, initial encounter; I16.0 Hypertensive urgency; I11.0 Hypertensive heart disease with heart failure; K21.9 Gastro-esophageal reflux disease without esophagitis; E03.9 Hypothyroidism, unspecified; M06.9 Rheumatoid arthritis, unspecified; Z20.822 Contact with and (suspected) exposure to COVID-19; Z87.440 Personal history of urinary (tract) infections; Z87.891 Personal history of nicotine dependence; Z79.52 Long term (current) use of systemic steroids; Z79.631 Long term (current) use of antimetabolite agent; Z79.890 Hormone replacement therapy; Z79.899 Other long term (current) drug therapy
CPT/HCPCS: 36415; 80048; 80053; 81001; 83605; 83735; 84484; 85025; 85027; 87040; 87086; 87637; 93005; 99221; 99285; J0360; J1335; J1650; J2185

== ENCOUNTER → 2025-02-19 08:04 | Outpatient (BNV) | payer MEDICARE, MEDICAID, SELFPAY | PROVIDERS: PCP Nurse Practitioner Adult Health; Visit Provider Internal Medicine Cardiovascular Disease | DX: R94.31 Abnormal electrocardiogram [ECG] [EKG] (principal); R53.1 Weakness | CPT/HCPCS: 93010 ==

== ENCOUNTER → 2025-02-19 11:53 | Outpatient (BNV) | payer MEDICARE, MEDICAID, SELFPAY | PROVIDERS: Admitting Provider Nurse Practitioner Acute Care; Emergency Provider Emergency Medicine; PCP Nurse Practitioner Adult Health; Visit Provider Internal Medicine | DX: R41.0 Disorientation, unspecified (principal) | CPT/HCPCS: 99222 ==

== ENCOUNTER → 2025-02-19 11:53 | Outpatient (BNV) | payer MEDICARE, MEDICAID, SELFPAY | PROVIDERS: Admitting Provider Nurse Practitioner Acute Care; Emergency Provider Emergency Medicine; PCP Nurse Practitioner Adult Health; Visit Provider Nurse Practitioner Acute Care | DX: I95.9 Hypotension, unspecified (principal); I73.9 Peripheral vascular disease, unspecified; N17.9 Acute kidney failure, unspecified; N39.0 Urinary tract infection, site not specified; M86.9 Osteomyelitis, unspecified; M97.12XA Periprosthetic fracture around internal prosthetic left knee joint, initial encounter; M25.562 Pain in left knee; R29.898 Other symptoms and signs involving the musculoskeletal system; R41.0 Disorientation, unspecified | CPT/HCPCS: 99223; 99232; 99233 ==

== ENCOUNTER 2025-03-08 11:01 | Inpatient (IN) | payer MEDICARE, MEDICAID, SELFPAY ==
--- NOTE | ~2025-03-08 | CT_ITS ---
CLINICAL HISTORY: abd pain, elevated LFTs Exam: Contrast-enhanced CT abdomen and pelvis with multiplanar reformats. Comparison: 11/19/2024. Findings: CT abdomen: Lung bases are clear. Liver is free of focal lesions and ductal dilatation. Gallbladder appears unremarkable. Spleen appears unremarkable. Pancreas appears unremarkable. A left adrenal nodule measuring 17 mm transverse dimension (4; 182, 47 Hounsfield units) appears stable. Right adrenal gland appears unremarkable. Kidneys reveal significant left renal atrophy. Multiple bilateral renal cysts and subcentimeter hypodensities are present which are too small to characterize although likely represent small cysts. Indeterminate right renal lower pole hypodensities are present, measuring up to 16 mm (4; 344, 40 Hounsfield units), 19 mm (4; 355, 58 Hounsfield units), and 2 cm (4; 363, 64 Hounsfield units) maximal dimension, relatively similar compared with the prior exam, likely hyperdense cysts. No free intraperitoneal fluid or retroperitoneal masses or adenopathy. Abdominal aorta reveals a bilobed infrarenal abdominal aortic aneurysms measuring up to 4.5 cm maximal cross-sectional dimension (4; 285, previously 4.0 cm at approximately the same level). No evidence of leak. Bowel loops reveal no abnormal wall thickening or distention. The appendix appears unremarkable. No significant diverticular disease. CT pelvis: Uterus and adnexal structures appear unremarkable. Urinary bladder reveals a punctate focus of gas density (4; 515), raising the possibility of cystitis, consider correlation with urinalysis. No pelvic masses or adenopathy. Osseous structures reveal no destructive osseous lesions. Impression: 1. Punctate focus of gas density within urinary bladder raises concern for cystitis, consider correlation with urinalysis. 2. Otherwise no acute abnormality or CT explanation for reported history of elevated liver function tests. 3. Bilobed infrarenal abdominal aortic aneurysm measuring up to 4.[address] evidence of leak. This document has been electronically signed by: Mike Pleitez MD on 03/08/2025 17:22:39
--- NOTE | ~2025-03-08 | US_ITS ---
CLINICAL HISTORY: increased swelling, size, rule out blood clot Venous duplex ultrasound left lower extremity Comparison: 02/19/2024 Findings: The visualized deep veins are fully compressible with normal Doppler color flow and spectral tracings. No popliteal cyst. IMPRESSION: 1. Negative for left lower extremity deep vein thrombosis. This document has been electronically signed by: Link Sawyer MD on 03/09/2025 08:33:05
--- NOTE | ~2025-03-08 | US_ITS ---
CLINICAL HISTORY: Abd pain, elevated LFTs --- Additional Notes or Special Instructions: assess GB, CBD Exam: Limited ultrasound of the gallbladder. Comparison: None. Findings: Visualized segments of the liver reveal no gross focal lesions. Gallbladder reveals multiple shadowing stones. Gallbladder reveals mild wall thickening with wall thickness measuring up to 5 mm. Equivocal trace pericholecystic fluid. Common bile duct is within normal limits at 5 mm diameter. Impression: 1. Cholelithiasis with gallbladder wall thickening and equivocal trace pericholecystic fluid, findings concerning for cholecystitis. This document has been electronically signed by: Mike Pleitez MD on 03/08/2025 20:17:09
--- NOTE | ~2025-03-08 | XR_ITS ---
CLINICAL HISTORY: ? carl[place], pt is not able to ambulate 3 views left knee Comparison: 01/08/2025 Findings: Stable alignment, age-indeterminate fracture involving the medial margin of the medial femoral condyle, unchanged compared with the prior exam. No new fractures.. Otherwise stable appearing knee arthroplasty hardware with no evidence of new hardware failure.. Impression: 1. Stable appearing left knee This document has been electronically signed by: Mike Pleitez MD on 03/08/2025 20:56:17
--- NOTE | ~2025-03-08 | MR_ITS ---
CLINICAL HISTORY: choledocholithiasis Exam: Unenhanced MRI of the abdomen, including imaging with MRCP technique Comparison: Abdomen ultrasound 03/08/2025 Findings: Liver appears free of gross focal lesions and intrahepatic ductal dilatation. Common bile duct is within normal limits, measuring 5 mm diameter. No filling defects identified within the biliary tree. Gallbladder reveals cholelithiasis, without definitive MR evidence of cholecystitis. Spleen appears unremarkable. Pancreas and adrenal glands appear unremarkable. Kidneys reveal multiple bilateral renal cysts and left renal atrophy. No free intraperitoneal fluid or retroperitoneal masses or adenopathy. Abdominal aorta reveals stable appearing infrarenal abdominal aortic aneurysm measuring up to 4.5 cm diameter as seen on recent CT. Visualized bowel loops reveal no wall thickening or distention. Osseous structures reveal no destructive osseous lesions. Impression: 1. Cholelithiasis, without definable MR evidence of cholecystitis. 2. No evidence of choledocholithiasis. This document has been electronically signed by: Mike Pleitez MD on 03/09/2025 18:09:39
[2025-03-08 11:18] VITALS: BP 134/82; BP 217/113; PULSE 72; PULSE 76; RESP 16; TEMP 36.6; O2SAT 96; O2SAT 98; BMI 44.3
--- OUTSIDE RECORDS SUMMARY | 2025-03-08 11:40 | XMS_ITS | Encounter Summary ---
Author Organization [facility] Address [address] [place] [address] Care Team Providers Care Nuclear Medicine Technologist Name Role Phone Travis Holbrook MD Primary Care Provider [phone] Encounter Details Date Type Department Care Team (Late st Contact Info) Description 03/05/2024 Lab Requisition [facility] - Main Lab 299 [facility] [place] [address] Travis Holbrook MD [address] [place] [phone] Other joint terminal attack controller (current) drug therapy Social History Tobacco Use [...] of this encounter Visit Diagnoses Diagnosis Other joint terminal attack controller (current) drug therapy documented in this encounter Care Teams Nuclear Medicine Technologist Relationship Specialty Start Date End Date Travis Holbrook MD [address] [facility] 204 [facility] [phone] PCP - General Family Medicine 02/28/24 documented as of this encounter
--- OUTSIDE RECORDS SUMMARY | 2025-03-08 11:40 | XMS_ITS | Encounter Summary ---
Author Organization [facility] Address [address] [place] [address] Care Team Providers Care Nascar Racer Name Role Phone Travis Holbrook MD Primary Care Provider [phone] Encounter Details Date Type Department Care Team (Late st Contact Info) Description 07/26/[address] [facility] - Main Lab 299 [facility] [place] [address] Travis Holbrook MD [address] [place] [address] 204 [place], [phone] Muscle weakness (generalized); Emphysema, unspecified (CMS/HCC V24, [...] V28) documented in this encounter Care Teams Nascar Racer Relationship Specialty Start Date End Date Travis Holbrook MD 38 [facility] 204 [place], [phone] PCP - General Family Medicine 02/28/24 documented as of this encounter
--- OUTSIDE RECORDS SUMMARY | 2025-03-08 11:41 | XMS_ITS | Patient Health Record ---
Author Organization [facility] Address [address] [place] [address] Care Team Providers Care Edging Supervisor Name Role Phone Namita Acosta NP Primary Care Provider Jose Pizarro Unavailable [phone] Allergies Allergen (clinical drug ingredient) Drug/Non Drug Allergy documented on EMR Reaction Allergy Type Onset Date Status Adhesive rash Allergy Active Fentanyl and Related rash Drug Allergy Active hydrocortisone Hydrocortisone rash Drug Allergy Active lisinopril Lisinopril anaphylaxis Drug Allergy Act shawanda Substance with 2-kcuvcel-7-methylg lutaryl-coenzyme A reductase inhibitor mechanism of action [...] day(s) Active Vitamin D (Ergocalciferol) 1.25 MG (81113 UT) TAKE 1 CAPSULE BY MOUTH 1 [...] atherosclerosis of arteries of lower limbs (disorder) (01391555080526652 ) Atherosclerosis of robinson artery of both lower extremities, with unspecified presence of clinical manifestation (I70.203) Active confirmed Problem Rheumatoid arthritis (84176057) Rheumatoid arthritis involving both feet, unspecified whether rheumatoid factor present (M06.9) Active confirmed Plan Of Treatment Pending Test Test Name Order Date [id number] SKIN/TISSUE 12/17/2021 [id number] SKIN/TISSUE 01/21/2022 [id number] SKIN/TISSUE 05/25/2022 [id number] I&D ABSCESS- SIMPLE,SINGLE 023 [id number] I&D ABSCESS- SIMPLE,SINGLE 022 Insurance Providers Payer Name Payer Address Payer Phone Subscriber Number Group Number Insured Name Patient Relationship to Insured Coverage Start Date Coverage End Date [employer] Medicare [id number] [address] [address] [place] [phone] [id number] Alexandrea Renee Self - patient is the [...]
--- OUTSIDE RECORDS SUMMARY | 2025-03-08 11:41 | XMS_ITS | Encounter Summary ---
Author Organization [facility] Address [address] [place] [address] Care Team Providers Care Fast Food Crew Lead Name Role Phone Travis Holbrook MD Primary Care Provider [phone] Encounter Details Date Type Department Care Team (Late st Contact Info) Description 03/22/2024 Lab Requisition [facility] - Main Lab 299 [facility] [place] [address] Lavonne Irvin MD [address] [place] [address] Essential (primary) hypertension; Acute kidney failure, unspecified [...] unspecified documented in this encounter Care Teams Fast Food Crew Lead Relationship Specialty Start Date End Date Travis Holbrook MD [address] [place] [address] 204 [facility] [phone] PCP - General Family Medicine 02/28/24 documented as of this encounter
--- OUTSIDE RECORDS SUMMARY | 2025-03-08 11:41 | XMS_ITS | Encounter Summary ---
Author Organization [facility] Address [address] [place] [address] Care Team Providers Care Repair Electric Motor Assembler Name Role Phone Travis Holbrook MD Primary Care Provider [phone] Encounter Details Date Type Department Care Team (Late st Contact Info) Description 07/19/2024 Lab Requisition [facility] - Main Lab 299 [facility] [place] [address] Travis Holbrook MD [address] [place] [address] 204 [facility] [phone] Muscle weakness (generalized); Emphysema, unspecified (CMS/HCC [...] METHOD 07/22/2024 11:53 AM [facility] Potassium 3.7 3.5 - 5.5 [...] Final Resul t [facility] [address] [place] [address], [place] [phone] * (ABNORMAL) Complete blood count (07/22/2024 5:17 AM EDT) WBC 5.3 4.8 - 10.8 K/mcL LAB HEMETOLOGY METHOD 07/22/2024 10:02 AM EDT [facility] RBC 4.00 3.80 - 4.80 M/mcL LAB HEMETOLOGY METHOD 07/22/2024 10:02 AM EDT [facility] Hemoglobin 11.6 11.5 - 16.0 g/dL LAB HEMETOLOGY METHOD 07/22/2024 10:02 AM [facility] Hematocrit 37.5 35.0 - 47.0 % LAB HEMETOLOGY METHOD 07/22/2024 10:02 AM EDT [facility] MCV 94.9 79.0 - 98.0 FL LAB HEMETOLOGY METHOD 07/22/2024 10:02 AM EDT [facility] MCH 29.4 27.0 - 32.0 pcg LAB HEMETOLOGY METHOD 07/22/2024 10:02 AM [facility] MCHC 30.9(L) 32.0 - 37.0 g/dL LAB HEMETOLOGY METHOD 07/22/2024 10:02 AM EDT [facility] RDW 15.4(H) 11.0 - 15.0 % LAB [facility] Plate[facility] 142 130 - 400 K/mcL LAB HEMETOLOGY [facility]22[facility]24 [facility] MPV 11.1(H) 7.0 - 11.0 FL [...] Final Resul t [facility] [address] [place] [address], documented in this encounter Visit Diagnoses Diagnosis Muscle weakness (generalized) Emphysema, unspecified (CMS/HCC V24, CMS/HCC V28) documented in this encounter Care Teams Repair Electric Motor Assembler Relationship Specialty Start Date End Date Travis Holbrook MD [address] [place] [address], [phone] PCP - General Family Medicine 02/28/24 documented as of this encounter
--- OUTSIDE RECORDS SUMMARY | 2025-03-08 11:41 | XMS_ITS | Encounter Summary ---
Author Organization [facility] Address [address] [place] [address] Care Team Providers Care Classification Counselor Name Role Phone Travis Holbrook MD Primary Care Provider [phone] Encounter Details Date Type Department Care Team (Late st Contact Info) Description 03/08/2024 Lab Requisition [facility] - Main Lab 299 [facility] [place] [address] Lavonne Irvin MD [address] [place], [place] [phone] Essential (primary) hypertension; Acute kidney failure, unspecified [...] mmol/L LAB CHEMISTRY METHOD 03/11/2024 2:58 PM [facility] Potassium 4.2 3.5 - 5.5 mmol/L LAB CHEMISTRY METHOD 03/11/2024 2:58 PM [facility] Chloride 105 96 - 110 mmol/L LAB CHEMISTRY METHOD 03/11/2024 2:58 PM [facility] CO2 32 21 - 32 mmol/L LAB CHEMISTRY METHOD 03/11/2024 2:58 PM [facility] Anion Gap 4 3 - 11 LAB CHEMISTRY METHOD 03/11/2024 2:58 PM [facility] Glucose 79 70 - 100 mg/dL LAB CHEMISTRY METHOD 03/11/2024 2:58 PM [facility] BUN 20 5 - 25 mg/dL LAB CHEMISTRY METHOD 03/11/2024 2:58 PM [facility] Creatinine 1.34(H) 0.50 - 1.10 mg/dL LAB CHEMISTRY METHOD 03/11/2024 2:58 PM [facility] eGFR 42(L) >=60 mL/min/1. 73m2 LAB CHEMISTRY METHOD 03/11/2024 2:58 PM [facility] Comment:Calculation based on the Chronic Kidney Disease Epidemiology Collaboration (CKD-EPI) equation refit without adjustment for race. BUN/Creatinine Ratio 14.9 LAB CHEMISTRY METHOD 03/11/2024 2:58 PM [facility] Calcium 9.1 8.5 - 10.5 mg/dL LAB CHEMISTRY METHOD 03/11/2024 2:58 PM [facility] Blood Venous blood specimen / Unknown Venipuncture / Unknown 03/11/2024 7:17 AM EST 03/11/2024 11:24 AM EST us Laovnne Irvin MD LAB BLOOD ORDERABLES Final Resul t [facility] [address] [place] [address], * (ABNORMAL) Complete blood count (03/11/2024 7:17 AM EST) [facility] Signature WBC 4.7(L) 4.8 - 10.8 K/mcL LAB HEMETOLOGY METHOD 03/11/2024 11:48 AM EST [facility] RBC 3.70(L) 3.80 - 4.80 M/mcL LAB HEMETOLOGY METHOD 03/11/2024 11:48 AM [facility] Hemoglobin 11.2(L) 11.5 - 16.0 g/dL LAB HEMETOLOGY METHOD 03/11/2024 11:48 AM [facility] Hematocrit 35.8 35.0 - 47.0 % LAB HEMETOLOGY METHOD 03/11/2024 11:48 AM [facility] MCV 97.0 79.0 - 98.0 FL LAB HEMETOLOGY METHOD 03/11/2024 11:48 AM EST [facility] MCH 30.4 27.0 - 32.0 pcg LAB HEMETOLOGY METHOD 03/11/2024 11:48 AM [facility] MCHC 31.3(L) 32.0 - 37.0 g/dL LAB HEMETOLOGY METHOD 03/11/2024 11:48 AM [facility] RDW 15.5(H) 11.0 - 15.0 % LAB HEMETOLOGY METHOD 03/11/2024 11:48 AM [facility] Platelets 166 130 - 400 K/mcL LAB HEMETOLOGY METHOD 03/11/2024 11:48 AM [facility] MPV 10.6 7.0 - 11.0 FL LAB HEMETOLOGY METHOD 03/11/2024 11:48 AM [facility] NRBC 0.0 <1.0 % LAB HEMETOLOGY METHOD 03/11/2024 11:48 AM EST [facility] NRBC Absolute 0.00 <0.10 K/mcL LAB HEMETOLOGY METHOD 03/11/2024 11:48 AM EST [facility] Blood Venous blood specimen / Unknown Venipuncture / Unknown 03/11/2024 7:17 AM EST 03/11/2024 11:24 AM EST us Lavonne Irvin MD LAB BLOOD ORDERABLES Final Resul t [facility] [address] [place] [address], documented in this encounter Visit Diagnoses Diagnosis Essential (primary) hypertension Unspecified essential hypertension Acute kidney failure, unspecified (CMS/HCC V24) Acute kidney failure, unspecified documented in this encounter Care Teams Classification Counselor Relationship Specialty Start Date End Date Travis Holbrook MD [address] [place] [address], [phone] PCP - General Family Medicine 02/28/24 documented as of this encounter
--- OUTSIDE RECORDS SUMMARY | 2025-03-08 11:41 | XMS_ITS | Patient Health Record ---
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) Active confirmed Problem Lumbosacral spondylosis without myelopathy (disorder) (66207758) Spondylosis without myelopathy or radiculopathy, lumbosacral region (M47.817) Active confirmed Problem Lumbosacral spondylosis without myelopathy (70154201) Other spondylosis, lumbar region (M47.896) Active confirmed Problem High risk drug monitoring status (262784925) FPC current use of opiate analgesic (Z79.891) Active confirmed Problem Lumbar spondylosis (758683498) Lumbar spondylosis (M47.816) Active confirmed Problem Left shoulder pain (7278426123) Left shoulder pain (M25.512) Active confirmed Problem Spondylosis (1875134) Spondylosis (M47.9) Active confirmed Problem Postherpetic neuralgia (7694021) Postherpetic neuralgia (B02.29) Active confirmed Problem Shoulder pain (23868459) Shoulder pain (M25.519) Active confirmed Plan Of [...] MEDICARE NGS [address] [place] [phone] [id number] Alexandrea Renee Self - patient is the insured Medical (General) History Medical History History ICD Code Depression Hypercholesterolemia Arthritis Fibromyalgia OCD peripheral neuropathy Surgical History Surgery Date(Month/Year) L knee replacement 2003 L knee revision 2010 Uterine Ablation Tubal Ligation R knee Meniscus repair 2011
--- OUTSIDE RECORDS SUMMARY | 2025-03-08 11:41 | XMS_ITS | Encounter Summary ---
Author Organization [facility] Address [address] [place] [address] Care Team Providers Care Skills Instructor Name Role Phone Travis Holbrook MD Primary Care Provider [phone] Encounter Details Date Type Department Care Team (Late st Contact Info) Description 07/05/2024 Lab Requisition [facility] - Main Lab [address] [facility] [place] [address] Travis Holbrook MD [address] [place] [address] 204 [facility] [address] Muscle [...] mmol/L LAB CHEMISTRY METHOD 07/08/2024 8:22 AM [facility] Potassium 3.9 3.5 - 5.5 mmol/L LAB CHEMISTRY METHOD 07/08/2024 8:22 AM [facility] Comment:Hemolysis present Chloride 103 96 - 110 mmol/L LAB CHEMISTRY METHOD 07/08/2024 8:22 AM [facility] CO2 31 21 - 32 mmol/L LAB CHEMISTRY METHOD 07/08/2024 8:22 AM [facility] Anion Gap 6 3 - 11 LAB CHEMISTRY METHOD 07/08/2024 8:22 AM [facility] Glucose 97 70 - 100 mg/dL LAB CHEMISTRY METHOD 07/08/2024 8:22 AM [facility] Comment:Lipemia present BUN 26(H) 5 - 25 mg/dL LAB CHEMISTRY METHOD 07/08/2024 8:22 AM [facility] Creatinine 1.30(H) 0.50 - 1.10 mg/dL LAB CHEMISTRY METHOD 07/08/2024 8:22 AM [facility] eGFR 44(L) >=60 mL/min/1. 73m2 LAB CHEMISTRY METHOD 07/08/2024 8:22 AM [facility] Comment:Calculation based on the Chronic Kidney Disease Epidemiology Collaboration (CKD-EPI) equation refit without adjustment for race. BUN/Creatinine Ratio 20.0 LAB CHEMISTRY METHOD 07/08/2024 8:22 AM [facility] Calcium 9.0 8.5 - 10.5 mg/dL LAB CHEMISTRY METHOD 07/08/2024 8:22 AM [facility] Blood Venous blood specimen / Unknown Venipuncture / Unknown 07/08/2024 5:44 AM EDT 07/08/2024 7:28 AM EDT us Travis Holbrook MD LAB BLOOD ORDERABLES Final Resul t [facility] [address] [place] [address], * (ABNORMAL) Complete blood count (07/08/2024 5:44 AM EDT) WBC 6.1 4.8 - 10.8 K/mcL LAB HEMETOLOGY METHOD 07/08/2024 8:03 AM EDT [facility] RBC 3.90 3.80 - 4.80 M/mcL LAB HEMETOLOGY METHOD 07/08/2024 8:03 AM [facility] Hemoglobin 11.7 11.5 - 16.0 g/dL LAB HEMETOLOGY METHOD 07/08/2024 8:03 AM [facility] Hematocrit 37.1 35.0 - 47.0 % LAB HEMETOLOGY METHOD 07/08/2024 8:03 AM [facility] MCV 95.9 79.0 - 98.0 FL LAB HEMETOLOGY METHOD 07/08/2024 8:03 AM [facility] MCH 30.2 27.0 - 32.0 pcg LAB HEMETOLOGY METHOD 07/08/2024 8:03 AM [facility] MCHC 31.5(L) 32.0 - 37.0 g/dL LAB HEMETOLOGY METHOD 07/08/2024 8:03 AM [facility] RDW 15.9(H) 11.0 - 15.0 % LAB HEMETOLOGY METHOD 07/08/2024 8:03 AM [facility] Platelets 223 130 - 400 K/mcL LAB HEMETOLOGY METHOD 07/08/2024 8:03 AM [facility] MPV 10.9 7.0 - 11.0 FL LAB HEMETOLOGY METHOD 07/08/2024 8:03 AM EDT [facility] NRBC 0.0 <1.0 % LAB HEMETOLOGY METHOD 07/08/2024 8:03 AM EDT [facility] NRBC Absolute 0.00 <0.10 K/mcL LAB HEMETOLOGY METHOD 07/08/2024 8:03 AM EDT [facility] Blood Venous blood specimen / Unknown Venipuncture / Unknown 07/08/2024 5:44 AM EDT 07/08/2024 7:28 AM EDT us Travis Holbrook MD LAB BLOOD ORDERABLES Final Resul t [facility] [address] [place] [address], documented in this encounter Visit Diagnoses Diagnosis Muscle weakness (generalized) Emphysema, unspecified (CMS/HCC V24, CMS/HCC V28) documented in this encounter Care Teams Skills Instructor Relationship Specialty Start Date End Date Travis Holbrook MD [address] [place] [address], [phone] PCP - General Family Medicine 02/28/24 documented as of this encounter
--- OUTSIDE RECORDS SUMMARY | 2025-03-08 11:41 | XMS_ITS | Encounter Summary ---
Author Organization [facility] Address [address] [place] [address] Care Team Providers Care Sand Digger Name Role Phone Travis Holbrook MD Primary Care Provider [phone] Encounter Details Date Type Department Care Team (Late st Contact Info) Description 03/16/2024 Lab Requisition [facility] - Main Lab 299 [facility] [place] [address] Lavonne Irvin MD [address] [place], [place] [phone] Essential (primary) hypertension; Acute kidney failure, unspecified [...] t [facility] [address] [place] [address], * (ABNORMAL) Complete blood count (03/18/2024 7:09 AM EST) [facility] WBC 6.3 4.8 - 10.8 K/mcL LAB [...] Resul t [facility] [address] [place] [address], documented in this encounter Visit Diagnoses Diagnosis Essential (primary) hypertension Unspecified essential hypertension Acute kidney failure, unspecified (CMS/HCC V24) Acute kidney failure, unspecified documented in this encounter Care Teams Sand Digger Relationship Specialty Start Date End Date Travis Holbrook MD [address] [place] [address], [phone] PCP - General Family Medicine 02/28/24 documented as of this encounter
--- OUTSIDE RECORDS SUMMARY | 2025-03-08 11:41 | XMS_ITS | Encounter Summary ---
Author Organization [facility] Address [address] [place] [address] Care Team Providers Care Oracle Brm Developer Name Role Phone Travis Holbrook MD Primary Care Provider [phone] Encounter Details Date Type Department Care Team (Late st Contact Info) Description 07/03/2024 Lab Requisition [facility] - Main Lab 299 [facility] [place] [address] Travis Holbrook MD [address] [place] [address] 204 [facility] [phone] Other computer terminal operator (current) drug therapy Social History [...] PANEL Routine 07/03/2024 11:40 AM EDT Other skilled nursing (current) drug therapy documented in this encounter Results * (ABNORMAL) Comprehensive metabolic panel (07/03/2024 11:40 AM EDT) Sodium 134 133 - 145 mmol/L LAB CHEMISTRY METHOD 07/03/2024 2:18 PM EDT [facility] Potassium 4.7 3.5 - 5.5 mmol/L LAB CHEMISTRY METHOD 07/03/2024 2:18 PM [facility] Chloride 99 96 - 110 mmol/L LAB CHEMISTRY METHOD 07/03/2024 2:18 PM [facility] CO2 28 21 - 32 mmol/L LAB CHEMISTRY METHOD 07/03/2024 2:18 PM [facility] Anion Gap 7 3 - 11 LAB CHEMISTRY METHOD 07/03/2024 2:18 PM [facility] Glucose 79 70 - 100 mg/dL LAB CHEMISTRY METHOD 07/03/2024 2:18 PM [facility] BUN 19 5 - 25 mg/dL LAB CHEMISTRY METHOD 07/03/2024 2:18 PM [facility] Creatinine 1.09 0.50 - 1.10 mg/dL LAB CHEMISTRY METHOD 07/03/2024 2:18 PM [facility] eGFR 54(L) >=60 mL/min/1. 73m2 LAB CHEMISTRY METHOD 07/03/2024 2:18 PM [facility] Comment:Calculation based on the Chronic Kidney Disease Epidemiology Collaboration (CKD-EPI) equation refit without adjustment for race. BUN/Creatinine Ratio 17.4 LAB CHEMISTRY METHOD 07/03/2024 2:18 PM [facility] Calcium 9.2 8.5 - 10.5 mg/dL LAB CHEMISTRY METHOD 07/03/2024 2:18 PM [facility] AST (SGOT) 23 10 - 42 unit/L LAB CHEMISTRY METHOD 07/03/2024 2:18 PM [facility] ALT (SGPT) 33 10 - 60 unit/L LAB CHEMISTRY METHOD 07/03/2024 2:18 PM [facility] Alkaline Phosphatase 129(H) 42 - 121 unit/L LAB CHEMISTRY METHOD 07/03/2024 2:18 PM [facility] Total Protein 6.6 6.0 - 8.0 g/dL LAB CHEMISTRY METHOD 07/03/2024 2:18 PM EDT [facility] Albumin 2.6(L) 3.2 - 5.0 g/dL LAB CHEMISTRY METHOD 07/03/2024 2:18 PM EDT [facility] Total Bilirubin 0.4 0.0 - 1.4 mg/dL LAB CHEMISTRY METHOD 07/03/2024 2:18 PM EDT [facility] Blood Venous blood specimen / Unknown 07/03/2024 11:40 AM EDT 07/03/2024 1:16 PM EDT us Travis Holbrook MD LAB BLOOD ORDERABLES Final Resul t [facility] [address] [place] [address], documented in this encounter Visit Diagnoses Diagnosis Other computer terminal operator (current) drug therapy documented in this encounter Care Teams Oracle Brm Developer Relationship Specialty Start Date End Date Travis Holbrook MD [address] [place] [address] 204 [place], [phone] PCP - General Family Medicine 02/28/24 documented as of this encounter
--- OUTSIDE RECORDS SUMMARY | 2025-03-08 11:41 | XMS_ITS | Encounter Summary ---
Author Organization [facility] Address [address] [place] [address] Care Team Providers Care Business Applications Developer Name Role Phone Travis Holbrook MD Primary Care Provider [phone] Encounter Details Date Type Department Care Team (Late st Contact Info) Description 07/03/2024 Lab Requisition [facility] - Main Lab [address] [facility] [place] [address] Travis Holbrook MD [address] [place] [address] 204 [facility] [phone] Muscle weakness (generalized); Emphysema, [...] AM EDT) WBC 7.8 4.8 - 10.8 K/[facility] LAB HEMETOLOGY METHOD 07/03/2024 10:[address] [facility] RBC 3.80 3.80 - 4.80 M/mcL LAB HEMETOLOGY METHOD 07/03/2024 10:[address] [facility] LAB Hemoglobin 11.4(L) 11.5 - 16.0 g/dL LAB HEMETOLOGY METHOD 07/03/2024 10:[address] [facility] LAB Hematocrit 36.8 35.0 - 47.0 % LAB HEMETOLOGY METHOD 07/03/2024 10:[address] [facility] LAB MCV 96.6 79.0 - 98.0 FL LAB HEMETOLOGY METHOD 07/03/2024 10:[address] [facility] MCH 29.9 27.0 - 32.0 pcg LAB HEMETOLOGY METHOD 07/03/2024 10:[address] [facility] MCHC 31.0(L) 32.0 - 37.0 g/dL LAB HEMETOLOGY METHOD 07/03/2024 10:[address] [facility] RDW 16.3(H) 11.0 - 15.0 % LAB HEMETOLOGY METHOD 07/03/2024 10:[address] [facility] Platelets 202 130 - 400 K/mcL LAB HEMETOLOGY METHOD 07/03/2024 10:[address] [facility] MPV 12.5(H) 7.0 - 11.0 FL LAB HEMETOLOGY METHOD 07/03/2024 10:[address] [facility] NRBC 0.0 <1.0 % LAB HEMETOLOGY METHOD 07/03/2024 10:[address] [facility] NRBC Absolute 0.00 <0.10 K/mcL LAB HEMETOLOGY METHOD 07/03/2024 10:[address] [facility] Blood Venous blood specimen / Unknown Venipuncture / Unknown 07/03/2024 5:14 AM EDT 07/03/2024 9:27 AM EDT us Travis Holbrook MD LAB BLOOD ORDERABLES Final Resul t [facility] ([facility] LAB [address] [place] [address], documented in this encounter Visit Diagnoses Diagnosis Muscle weakness (generalized) Emphysema, unspecified (CMS/HCC V24, CMS/HCC V28) documented in this encounter Care Teams Business Applications Developer Relationship Specialty Start Date End Date Travis Holbrook MD [address] [place] [address], [phone] PCP - General Family Medicine 02/28/24 documented as of this encounter
--- OUTSIDE RECORDS SUMMARY | 2025-03-08 11:41 | XMS_ITS | Encounter Summary ---
Author Organization [facility] Address [address] [place] [address] Care Team Providers Care Junk Dealer Name Role Phone Travis Holbrook MD Primary Care Provider [phone] Encounter Details Date Type Department Care Team (Late st Contact Info) Description 03/07/2024 Lab Requisition [facility] - Main Lab [address] [facility] [place] [address] Lavonne Irvin MD [address] [place], [place] [id number] Essential (primary) hypertension; Acute kidney failure, unspecified [...] t [facility] LAB [address] [place] [address], * (ABNORMAL) Complete blood count (03/07/2024 6:00 AM EST) [facility] Signature WBC 4.8 4.8 - 10.8 K/mcL LAB HEMETOLOGY METHOD 03/07/2024 10:54 AM EST [facility] LAB RBC 3.70(L) 3.80 [...] LAB HEMETOLOGY METHOD 03/07/2024 10:54 AM EST [facility] LAB NRBC Absolute 0.00 <0.10 K/mcL LAB HEMETOLOGY METHOD 03/07/2024 10:54 AM EST [facility] LAB Blood Venous blood specimen / Unknown Venipuncture / Unknown 03/07/2024 6:00 AM EST 03/07/2024 10:35 AM EST us Lavonne Irvin MD LAB BLOOD ORDERABLES Final Resul t [facility] LAB [address] [place] [address], documented in this encounter Visit Diagnoses Diagnosis Essential (primary) hypertension Unspecified essential hypertension Acute kidney failure, unspecified (CMS/HCC V24) Acute kidney failure, unspecified documented in this encounter Care Teams Junk Dealer Relationship Specialty Start Date End Date Travis Holbrook MD [address] [place] [address] 204 [place], [phone] PCP - General Family Medicine 02/28/24 documented as of this encounter
--- OUTSIDE RECORDS SUMMARY | 2025-03-08 11:41 | XMS_ITS | Encounter Summary ---
Author Organization [facility] Address [address] [place] [address] Care Team Providers Care Heavy Rail Train Operator Name Role Phone Travis Holbrook MD Primary Care Provider [phone] Encounter Details Date Type Department Care Team (Late st Contact Info) Description 07/12/2024 Lab Requisition [facility] - Main Lab [address] [facility] [place] [address] Travis Holbrook MD [address] [place] [address] 204 [facility] [phone] Muscle weakness (generalized); Emphysema, unspecified [...] * Magnesium (07/15/2024 5:26 AM EDT) Pathologist [facility] Magnesium 2.1 1.9 - 2.6 mg/dL LAB CHEMISTRY METHOD 07/15/2024 2:11 PM EDT [facility] LAB Blood Venous blood specimen / Unknown Venipuncture / Unknown 07/15/2024 5:26 AM EDT 07/15/2024 10:23 AM EDT us Travis Holbrook MD LAB BLOOD ORDERABLES Final Resul t [facility] LAB [address] [place] [address], * (ABNORMAL) Basic metabolic panel (07/15/2024 5:26 AM EDT) [facility] Sodium 143 133 - 145 mmol/L LAB CHEMISTRY METHOD 07/15/2024 2:29 PM [facility] LAB Potassium 3.8 3.5 - 5.5 mmol/L LAB CHEMISTRY METHOD 07/15/2024 2:29 PM [facility] LAB Chloride 102 96 - 110 mmol/L LAB CHEMISTRY METHOD 07/15/2024 2:29 PM T [facility] LAB CO2 30 21 - 32 mmol/L LAB CHEMISTRY METHOD 07/15/2024 2:29 PM [facility] LAB Anion Gap 11 3 - 11 LAB CHEMISTRY METHOD 07/15/2024 2:29 PM [facility] LAB Glucose 65(L) 70 - 100 mg/dL LAB CHEMISTRY METHOD 07/15/2024 2:29 PM [facility] LAB BUN 19 5 - 25 mg/dL LAB CHEMISTRY METHOD 07/15/2024 2:29 PM EDT [facility] LAB Creatinine 1.17(H) 0.50 - 1.10 mg/dL LAB CHEMISTRY METHOD 07/15/2024 2:29 PM EDT [facility] LAB eGFR 50(L) >=60 mL/min/1. 73m2 LAB CHEMISTRY METHOD 07/15/2024 2:29 PM EDT [facility] LAB Comment:Calculation based on the Chronic Kidney Disease Epidemiology Collaboration (CKD-EPI) equation refit without adjustment for race. BUN/Creatinine Ratio 16.2 LAB CHEMISTRY METHOD 07/15/2024 2:29 PM EDT [facility] LAB Calcium 9.3 8.5 - 10.5 mg/dL LAB CHEMISTRY METHOD 07/15/2024 2:29 PM EDT [facility] LAB Blood Venous blood specimen / Unknown Venipuncture / Unknown 07/15/2024 5:26 AM EDT 07/15/2024 10:23 AM EDT us Travis Holbrook MD LAB BLOOD ORDERABLES Final Resul t [facility] LAB [address] [place] [address], * (ABNORMAL) Complete blood count (07/15/2024 5:26 AM EDT) WBC 5.0 4.8 - 10.8 K/mcL LAB HEMETOLOGY METHOD 07/15/2024 11:34 AM EDT [facility] LAB RBC 3.90 3.80 - 4.80 M/mcL LAB HEMETOLOGY METHOD 07/15/2024 11:34 AM EDT [facility] LAB Hemoglobin 11.6 11.5 - 16.0 g/dL LAB HEMETOLOGY METHOD 07/15/2024 11:34 AM EDT [facility] LAB Hematocrit 37.1 35.0 - 47.0 % LAB HEMETOLOGY METHOD 07/15/2024 11:34 AM EDT [facility] LAB MCV 96.1 79.0 - 98.0 FL LAB HEMETOLOGY METHOD 07/15/2024 11:34 AM EDT [facility] LAB MCH 30.1 27.0 - 32.0 pcg LAB HEMETOLOGY METHOD 07/15/2024 11:34 AM EDT [facility] LAB MCHC 31.3(L) 32.0 - 37.0 g/dL LAB HEMETOLOGY METHOD 07/15/2024 11:34 AM EDT [facility] LAB RDW 15.7(H) 11.0 - 15.0 % LAB HEMETOLOGY METHOD 07/15/2024 11:34 AM T [facility] LAB Platelets 204 130 - 400 K/mcL LAB HEMETOLOGY METHOD 07/15/2024 11:34 AM EDT [facility] LAB MPV 11.0 7.0 - 11.0 FL LAB HEMETOLOGY METHOD 07/15/2024 11:34 AM EDT [facility] LAB NRBC 0.0 <1.0 % LAB HEMETOLOGY METHOD 07/15/2024 11:34 AM T [facility] LAB NRBC Absolute 0.00 <0.10 K/mcL LAB HEMETOLOGY METHOD 07/15/2024 11:34 AM [facility] LAB Blood Venous blood specimen / Unknown Venipuncture / Unknown 07/15/2024 5:26 AM EDT 07/15/2024 10:23 AM EDT us Travis Holbrook MD LAB BLOOD ORDERABLES Final Resul t [facility] LAB [address] [place] [address], documented in this encounter Visit Diagnoses Diagnosis Muscle weakness (generalized) Emphysema, unspecified (CMS/HCC V24, CMS/HCC V28) Hypokalemia Hypopotassemia documented in this encounter Care Teams Heavy Rail Train Operator Relationship Specialty Start Date End Date Travis Holbrook MD [address] [place] [address], [phone] PCP - General Family Medicine 02/28/24 documented as of this encounter
--- OUTSIDE RECORDS SUMMARY | 2025-03-08 11:41 | XMS_ITS | Clinical Summary ---
Author Organization [address] Address [address] [place] [phone] Phone Care Team Providers Care Commercial Loan Reviewer Name Role Phone Travis Holbrook MD Primary Care Provider [phone] Allergies Active Allergy Reactions Criticality Noted Date Comments Adhesive Tape-Silicones Low 02/06/2017 Tape Other Reaction(s): Rash/Dermatitis Chlorthalidone Medium 08/08/2017 Hypokalemia Hydrochlorothiazide High 02/07/2017 Hyponatremia Lisinopril Anaphylaxis,Swell ing High 02/06/2017 anaphylaxis, 2017 [facility] Zzzddry-Jvo-Xob Reductase Inhibitors 02/06/2017 Statins [Hmg-coa-r Inhibitors] Leg [...] Site/Laterality Comments OTHER SURGICAL HISTORY N/A PROCEDURE: [place] HYSTEROSCOPY ENDOMETRIAL ABLATION TUBAL LIGATION PROCEDURE: HISTORICAL [...] on file Sexual Orientation Not on file Last Filed Vital Signs Vital Sign Reading [...] AM EDT Muscle weakness (generalized) Emphysema, unspecified (CMS/[facility] V24, CMS/[facility] V28) LIPID PANEL Routine 07/06/2022 from Last [...] mg/dL LAB CHEMISTRY METHOD 07/22/2024 11:53 AM EDT [facility] BUN 24 5 - 25 mg/dL LAB CHEMISTRY METHOD 07/22/2024 11:53 AM EDT [facility] Creatinine 1.30(H) 0.50 - 1.10 mg/dL LAB CHEMISTRY METHOD 07/22/2024 11:53 AM EDT [facility] LAB eGFR 44(L) >=60 mL/min/1. 73m2 LAB CHEMISTRY METHOD 07/22/2024 11:53 AM EDT [facility] LAB Comment:Calculation based on the Chronic Kidney Disease Epidemiology Collaboration (CKD-EPI) equation refit without adjustment for race. BUN/Creatinine Ratio 18.5 LAB CHEMISTRY METHOD 07/22/2024 11:53 AM T [facility] Calcium 8.7 8.5 - 10.5 mg/dL LAB CHEMISTRY METHOD 07/22/2024 11:53 AM EDT [facility] Blood Venous blood specimen / Unknown Venipuncture / Unknown 07/22/2024 5:17 AM EDT 07/22/2024 9:39 AM EDT Travis Holbrook MD LAB BLOOD ORDERABLES Final Resul t [facility] LAB [address] [place] [address], * Lipid panel (07/06/2022) LDL/HDL Ratio 0 [...] Most Recently Relevant to Health Maintenance Insurance MEDICAID - [place] [employer] MEDICARE Care Teams Commercial Loan Reviewer Relationship Specialty Start Date End Date Travis Holbrook MD [address] [place] [address] 204 [place], [phone] PCP - General Family Medicine 02/28/24
--- OUTSIDE RECORDS SUMMARY | 2025-03-08 11:41 | XMS_ITS | Encounter Summary ---
Author Organization [facility] Address [address] [place] [address] Care Team Providers Care Provider Enrollment Specialist Name Role Phone Travis Holbrook MD Primary Care Provider [phone] Encounter Details Date Type Department Care Team (Late st Contact Info) Description 02/28/2024 Lab Requisition [facility] - Main Lab 299 [facility] [place] [address] Travis Holbrook MD [address] [place] [address] 204 [facility] [phone] Other superintendent marine oil terminal (current) drug therapy Social History Tobacco Use [...] COUNT Routine 02/28/2024 6:48 AM EST Other superintendent marine oil terminal (current) drug therapy BASIC METABOLIC PANEL Routine 02/28/2024 6:48 AM EST Other superintendent marine oil terminal (current) drug therapy documented in this encounter Results * (ABNORMAL) Basic metabolic panel (02/28/2024 6:48 AM EST) Sodium 137 133 - 145 mmol/L LAB CHEMISTRY METHOD 02/28/2024 12:05 PM [facility] Potassium 4.2 3.5 - 5.5 mmol/L LAB CHEMISTRY METHOD 02/28/2024 12:05 PM [facility] Chloride 103 96 - 110 mmol/L LAB CHEMISTRY METHOD 02/28/2024 12:05 PM [facility] LAB CO2 31 21 - 32 mmol/L LAB CHEMISTRY METHOD 02/28/2024 12:05 PM [facility] Anion Gap 3 3 - 11 LAB CHEMISTRY METHOD 02/28/2024 12:05 PM [facility] Glucose 81 70 - 100 mg/dL LAB CHEMISTRY METHOD 02/28/2024 12:05 PM [facility] BUN 26(H) 5 - 25 mg/dL LAB CHEMISTRY METHOD 02/28/2024 12:05 PM [facility] Creatinine 1.00 0.50 - 1.10 mg/dL LAB CHEMISTRY METHOD 02/28/2024 12:05 PM [facility] LAB eGFR 60 >=60 mL/min/1. 73m2 LAB CHEMISTRY METHOD 02/28/2024 12:05 PM [facility] LAB Comment:Calculation based on the Chronic Kidney Disease Epidemiology Collaboration (CKD-EPI) equation refit without adjustment for race. BUN/Creatinine Ratio 26.0 LAB CHEMISTRY METHOD 02/28/2024 12:05 PM [facility] Calcium 9.0 8.5 - 10.5 mg/dL LAB CHEMISTRY METHOD 02/28/2024 12:05 PM [facility] Blood Venous blood specimen / Unknown Venipuncture / Unknown 02/28/2024 6:48 AM EST 02/28/2024 10:45 AM EST us Travis Holbrook MD LAB BLOOD ORDERABLES Final Resul t [facility] [address] [place] [address], [place] [phone] * (ABNORMAL) Complete blood count (02/28/2024 6:48 AM EST) [facility] WBC 6.1 4.8 - 10.8 K/mcL LAB HEMETOLOGY METHOD 02/28/2024 11:33 AM [facility] RBC 3.80 3.80 - 4.80 M/mcL LAB HEMETOLOGY METHOD 02/28/2024 11:33 AM [facility] Hemoglobin 11.4(L) 11.5 - 16.0 g/dL LAB HEMETOLOGY METHOD 02/28/2024 11:33 AM [facility] LAB Hematocrit 36.3 35.0 - 47.0 % LAB HEMETOLOGY METHOD 02/28/2024 11:33 AM [facility] MCV 95.3 79.0 - 98.0 FL LAB HEMETOLOGY METHOD 02/28/2024 11:33 AM [facility] MCH 29.9 27.0 - 32.0 pcg LAB HEMETOLOGY METHOD 02/28/2024 11:33 AM [facility] LAB MCHC 31.4(L) 32.0 - 37.0 g/dL LAB HEMETOLOGY METHOD 02/28/2024 11:33 AM [facility] RDW 15.0 11.0 - 15.0 % LAB HEMETOLOGY METHOD 02/28/2024 11:33 AM [facility] Platelets 180 130 - 400 K/mcL LAB HEMETOLOGY METHOD 02/28/2024 11:33 AM [facility] MPV 10.5 7.0 - 11.0 FL LAB HEMETOLOGY METHOD 02/28/2024 11:33 AM [facility] NRBC 0.0 <1.0 % LAB HEMETOLOGY METHOD 02/28/2024 11:33 AM [facility] NRBC Absolute 0.00 <0.10 K/mcL LAB HEMETOLOGY METHOD 02/28/2024 11:33 AM EST [facility] Blood Venous blood specimen / Unknown Venipuncture / Unknown 02/28/2024 6:48 AM EST 02/28/2024 10:45 AM EST us Travis Holbrook MD LAB BLOOD ORDERABLES Final Resul t [facility] [address] [place] [address], documented in this encounter Visit Diagnoses Diagnosis Other superintendent marine oil terminal (current) drug therapy documented in this encounter Care Teams Provider Enrollment Specialist Relationship Specialty Start Date End Date Travis Holbrook MD [address] [place] [address], [phone] PCP - General Family Medicine 02/28/24 documented as of this encounter
--- OUTSIDE RECORDS SUMMARY | 2025-03-08 11:41 | XMS_ITS | Data Portability ---
Author Organization [facility], Main Office Address [address] [place] [address] [address] [place] [address] Care Team Providers Care Senior Label Specialist Name Role Phone GINO MICHAEL OTHER [facility] ([facility]) OTHER Assessment Encounter Date Assessment Date [...] Name and Address Organization Details Recorded Time Low blood pressure 82191106 Completed 202307/02/2024 Not Available [facility] 18:27:06 Acute kidney injury 64186112 Completed 202307/02/2024 Not Available [facility] 18:27:07 Pulmonar y arterial hyperten sheela 23347842 Completed 202307/02/2024 Not Available [facility] 18:27:17 Urinary tract infectio us disease 19084920 Completed 202307/02/2024 LYRIC LOU [address] [facility] [address], [place], [address] , [facility] [employer] 17:15:10 Rheumato id arthriti s with rheumato id lung disease 7634883846 Completed 202307/02/2024 Not Available [facility] 18:27:19 Unsteady when standing 811529052 Completed 202307/02/2024 Not Available [facility] 18:27:22 Drug resistan ce 31945525 Completed 202307/02/2024 Not Available [facility] 18:27:22 Gastro-e sophagea l reflux disease with esophagi tis 656269367 Completed 202307/02/2024 Not Available [facility] 18:27:23 Metaboli c encephal opathy 94796741 Completed 202307/02/2024 Not Available [facility] 18:27:05 Bacteriu rika 72746006 Completed 202307/04/2024 LYRIC LOU [address] [facility] [address], [place], [address] , [facility] 5 17:15:10 Chronic pain 01525046 Active 2023 Flor Michel NP [address] [facility], [address], [place], [address] , [facility] 4 09:06:51 Essentia l hyperten sheela 77704383 Completed 202307/02/2024 Not Available [facility] 5 18:27:08 Chronic obstruct shawanda pulmonar y disease 81458839 Completed 202307/02/2024 Not Available [facility] 5 18:27:09 Fracture of femur 00074344 Completed 202307/04/2024 LYRIC LOU [address] [facility], [address], [place], [address] , [facility] 5 17:15:10 Gastroes ophageal reflux disease 650454991 Active 2023 Flor Michel NP [address] , [address], [place], [address] , [facility] 4 09:08:19 Depressi ve disorder 03976978 Active 2023 Flor Michel NP [address] [facility], [address], [place], [address] , [facility] 4 09:08:43 Hypothyr oidism 45703672 Completed 202307/02/2024 Not Available [facility] 5 18:27:11 Congesti ve heart failure 21567384 Completed 202307/04/2024 LYRIC LOU [address] , [address], [place], [address] , [facility] 5 17:15:10 Rheumato id arthriti s 02649562 Completed 202307/02/2024 LYRIC LOU [address] [facility], [address], [place], [address] , [facility] 5 16:59:00 Fracture of patella 07239724 Completed 202307/04/2024 LYRIC LOU [address] [facility], [address], [place], [address] , [facility] 5 17:15:10 Fibromya lgia 819796947 Completed 202307/02/2024 Not Available [facility] 5 08:24:21 Fall Active 2023 Not Available [facility] 5 08:24:24 Mood disorder 58453515 Completed 202307/02/2024 Not Available [facility] 5 18:27:19 Essentia l hyperten sheela 36067804 Active 2023 Not Available [facility] 5 18:27:12 Chronic obstruct shawanda pulmonar y disease 61550019 Active 2023 Not Available [facility] 5 18:27:12 Hypothyr oidism 02520115 Active 2023 Not Available [facility] 5 18:27:13 Pulmonar y emphysem a 66600866 Completed 202307/02/2024 Not Available [facility] 5 08:31:26 Muscle weakness 41943337 Completed 202307/02/2024 Not Available [facility] 5 08:26:06 Difficul ty walking 235668480 Completed 202307/04/2024 LYRIC LOU [address] [facility], [address], [place], [address] , [facility] 5 17:15:10 Pain of left knee region 17810459061 4109 Completed 202307/04/2024 LYRIC LOU [address] [facility], [address], [place], [address] , [facility] [employer] [facility] 5 17:15:10 Fracture of multiple ribs 2314298 Completed 202407/04/2024 LYRIC LOU [address] [facility], [address], [place], [address] , [facility] [employer] [facility] 5 17:15:10 Rhabdomy olysis 396999718 Active 2024 Not Available [facility] 5 07:19:27 Urinary tract infectio us disease 47350386 Completed 202407/04/[address] [place] [address], [address], [place], [address] , [facility] [employer] [facility] 5 17:15:10 Drug resistan ce 18145545 Active 2024 UTI - ESBL w/ E.Coli Not Available [facility] 5 08:24:32 Acidosis 30913478 Completed 202407/04/2024 LYRIC LOU [address] [facility], [address], [place], [address] , [facility] [employer] [facility] 5 17:15:10 Disorder of bilirubi n metaboli sm 64471390 Completed 202407/04/2024 LYRIC LOU [address] [facility], [address], [place], [address] , [facility] [employer] [facility] 5 17:15:10 Aortic thromboe mbolism 567161108 Active 2024 Chronic Aortic Mural Thrombus Not Available [facility] 5 08:26:59 Hypokale delroy 00072449 Active 2024 Not Available [facility] 5 07:24:36 [place]n 137721746 Active 2024 Not Available [facility] 5 07:25:12 Long-ter m current use of steroid 256589958 Completed 202407/04/2024 LYRIC LOU [address] [facility], [address], [place], [address] , [facility] 5 17:15:10 Polycyth emia vera (clinica l) 241198805 Completed 202407/04/2024 JUNIOR VILLEGAS, [facility] [address] [facility], [address], [place], [address] , [facility] 5 17:15:10 [facility] 760198546 Completed 202407/04/2024 JUNIOR VILLEGAS [address], [address], [place], [address] , [facility] 5 17:15:10 Late effect of fracture of lumbar vertebra 990864106 Completed 202407/04/2024 JUNIOR VILLEGAS [address], [address], [place], [address] , [facility] 5 17:15:10 Closed fracture of tibia AND fibula 152008117 Active 2024 JUNIOR VILLEGAS [address], [address], [place], [address] , [facility] 5 16:24:03 Adrenal incident aloma 39671153494 105 Active 2024 JUNIOR VILLEGAS [address], [address], [place], [address] , [facility] 5 16:30:42 Rheumato id arthriti s 44311873 Active 2024 JUNIOR VILLEGAS [address], [address], [place], [address] , [facility] 5 16:59:00 Chronic primary low back pain Active [address] [facility] [address] [facility], [address], [place], [address] , [facility] 5 18:07:19 Problem Notes None recorded. Medical Equipment None Reported. Allergies Allergen ID Allergen Name Allergen Category Reaction Reaction Severity Criticality Documentation Date Start Date Code Code System Note Provider Name and Address Organization Details Recorded Time 28358 lisinopri l medicatio n Not available Not available Not available 02/28/20242023 73533 RxNorm Not Available [facility] 18:27:27 99468 Substance with sulfonami de structure and antibacte rial mechanism of action (substanc e) medicatio n rash Not available low 02/28/2024 47446 8003 SNOMED Flor Michel, SPENCER [address], [address], [place], [address], [facility] [employer] [facility] 4 08:56:03 21365 tramadol medicatio n Not available Not available Not available 02/28/20242023 59835 RxNorm Not Available [facility] 18:27:27 24111 Product containin g 3-hydroxy -3-methyl glutaryl- coenzyme A reductase inhibitor (product) medicatio n rash Not available unabletoasse 02/28/2024 57597 009 SNOMED Flor Michel, SPENCER [address], [address], [place], [address], [facility] [employer] [facility] 4 08:56:37 34629 hydrochlo rothiazid e medicatio n Not available [...] rate Respiratory rate Body temperature Oxygen saturation Systolic And Diastolic Provider Name and Address Organization Details Last Updated DateTime 5 68 /min 18 /min 97.7 [degF] 96 % 142/80 mm[Hg] LYRIC LOU [address] [facility], [address], [place], [address], [facility] 5 14:35:37 Date Recorded Heart rate Respiratory rate Body temperature Oxygen saturation Systolic And Diastolic Provider Name and Address Organization Details Last Updated DateTime 5 68 /min 18 /min 97.7 [degF] 96 % 142/80 mm[Hg] LYRIC LOU [address] [facility], [address], [place], [address], [facility] 5 17:18:40 Date Recorded Respiratory rate Body temperature Heart rate Oxygen saturation Systolic And Diastolic Provider Name and Address Organization Details Last Updated DateTime 5 18 /min 97.5 [degF] 68 /min 95 % 132/72 mm[Hg] LYRIC LOU [address] [facility], [address], [place], [address], [facility] 5 09:52:04 Social History Question Answer Notes LastModified by Organizat ion Details LastModified Time Tobacco Smoking Status Former Smoker Flor Michel NP [address] [facility] [address], [place], [address], [facility] 02/28/2024 09:04:02 Do You Have An [...] Time Pneumococcal conjugate PCV 13 0 completed [facility] 03/01/2024 12:57:19 pneumococcal polysaccharide PPV23 8 completed Analy [facility] 03/01/2024 12:57:36 influenza, unspecified formulation 2 completed Analy [facility] 03/01/2024 12:57:51 influenza, unspecified formulation 3 completed Analy [facility] 03/01/2024 12:58:01 influenza, unspecified formulation 4 completed Analy [facility] 03/01/2024 12:58:11 SARS-COV-2 (COVID-19) vaccine, UNSPECIFIED 1 completed Analy [facility] 03/01/2024 12:58:28 SARS-COV-2 (COVID-19) vaccine, UNSPECIFIED 1 completed Analy [facility] 03/01/2024 12:58:37 SARS-COV-2 (COVID-19) vaccine, UNSPECIFIED 2 completed Analy [facility] 03/01/2024 12:58:44 zoster, unspecified formulation 8 completed Analy [facility] 03/01/2024 12:59:01 Past Encounters Encounter ID Performer Location Encounter Start Date Encounter Closed Date Diagnosis/Indication Diagnosis SNOMED-CT Code Diagnosis ICD10 Code Diagnosis IMO Codes Diagnosis Note [id number] Flor Michel NP [address] [place] [address] 02/28/2024 08:21:30 02/29/2024 11:51:58 Metabolic encephalopathy 27199041 G93.41 felt resolved from abx from UTI or large amount of narcotics while in hosp resolved at d/cchanged from dilaudid to oxycodonem onitor for changes in ms Chronic pain 61878642 G8 9.29 with hx of fibromyalg ia [...] mg po qd ? pain or mood /4 lidocaine patch to left knee am, left shoulder q pm. Bacteriuria 49315673 R82 .71 with ESBL felt to be colonized, seen by ID and no further treatmentg iven ceftriaxon e and ertampenum in hospmonito rcbc, bmp,s/s of fever etc.isolat ion per facility protocol Rheumatoid arthritis 698 39507 M06.9 see chronic pain abovefolic acid 1mg qdmonitor for flare Essential hypertension 09565284 I10 atenolol 25 mg qddoxazosi n 2mg qhs? for htnfurosem dereje 20 mg po qdmonitor bp, cardiac status Chronic ob structive pulmonary disease 42679722 J44.9 albuterol 2 puff po q 6 hours prn sob2 liters o2 at nocmonitor Depressive disorder 1208 9007 F32.A buproprion 450 mg qdduloxeti ne 60 mg qdpsych prn Gastroesop hageal reflux disease 194539086 K21.9 omeprazole 40 mg qdzofran 4 mg po q 8 prn n/vmonitor Hypothyroidism 98596966 E03.9 levothyrox ine 50 mcg qdtsh, free t4 prnmonitor Fracture of tibia 924650 02 S82.202D xray showing acute fracture of [...] surgery recommende d.FU outpt with surgeon in [place] recommende d.see chronic pain for management ergocalcif dajuan 1250 mcg po mondaysmon itor for changes, increased pain, or need for referral earlier Congestive heart failure 93859918 I50.9 lasix 20 mg po qdmonitor vitals, cardiac status Asthenia 21562872 R53.1 PT OT eval and treatwheel chair at baseline with self transfers, NWB to left tibiamonit or Recurrent falls 64283163 2 R29.6 PT OT eval and treatwheel chair at baseline with self transfers, NWB to left tibiamonit or [id number] JUNIOR VILLEGAS, [employer] [address] [place] [address] 07/03/2024 11:14:27 07/04/2024 20:19:17 Chronic pain 34497146 G89.29 Closed fra cture of tibia AND fibula 780445693 S82.201D S82.401D 74974190 Hx of right leg fractures from 2 years ago -11/27/2023 CT RLE e xtensively comminuted , subacute or chronic appearing fractures throughout the medial and lateral tibial plateaus.O rthopedic surgery consulted -Unclear acuity of the right tibia-fibu la fracture, no surgical interventi on. Recommendi ng WBAT RLE, TDWB LLE.PT/OT eval and tx Lymphedema 986616324 I89 .0 Continue furosemide 40 Mg daily Aortic thromboembolism 178771690 I74.10 Chronic aortic mural thrombusCh ronic inferior mesenteric artery occlusions een by vascular no immediate interventi oncan f/u with vasculer as needed Adrenal incidentaloma 97 11275193 9105 E27.8 1683263 06/26 CT abdomen 2 .1 cm solid nodule in the left adrenalout patient follow-up Hypokalemia 79421638 E87 .6 Repleted Rheumatoid arthritis 698 96237 M06.9 4685968499 continue home prednisone 4mg dailyconti nue methotrexa te 25mg weekly Rhabdomyolysis 752132294 M62.82 resolvedre nal fxn improved with IVFTransam initis, hyperbilir ubinemia (E80.6) r esolvedLFT s spontaneou sly improved Hypothyroidism 38195713 E03.9 cont Levothyrox ine 50 mcg Gastroesop hageal reflux disease 202444902 K21.9 cont omepraz[address] Bruno tr act infectious disease 54722676 N39.0 With ESBLcont ertapenam 1g until 07/07 Depressive disorder 3548 9007 F32.A cont bupropion, duloxetine qd Essential hypertension 65122257 I10 cont doxazosin, atenolol Chronic pr imary low back pain 8577044722 7100 M54.59 G89.29 2261840242 cont oxycodone 22.5 mg Q 4 prncont lyrica 200 [place] bid [id number] [place] [address] 07/05/2024 09:38:19 07/05/2024 13:05:53 Closed fracture of tibia AND fibula 857200782 S82.201D S82.401D [id number] Orthopedic surgery consulted -Unclear acuity of the right tibia-fibu la fracture, no surgical interventi on. Recommendi ng WBAT RLE, TDWB LLE.cont PT/OTincre ase oxycodone to 25 mg q4 prn for better pain management Essential hypertension 73877491 I10 increase atenolol to 50 mg daily Chronic pr imary low back pain 8571606358 7100 M54.59 G89.29 5351361507 now on oxycodone 25mg Q 4 prncont lyrica 200 mg bid [id number] [place] [address] 07/08/2024 11:22:28 07/24/2024 12:57:03 Chronic obstructive pulmonary disease 52829085 J44.9 requiring oxygen WHEN sleepingre start PRN beta-agoni sts as needed Essential hypertension 85711891 I10 on furosemide 40mg / atenolol 50mg / doxasozin 2mg Hypothyroidism 55062960 E03.9 on maintenanc e replacemen t therapy Rheumatoid arthritis 698 20468 M06.9 0131310741 on MTX/folate and prednisone maintenanc e therapyunc lear at this time if she has been tried on bisphospho jacob therapy but given the timing of leg fractures, timing has been inopportun e. Given acute fractures, this can be deferred at the outpatient Adrenal incidentaloma 97 16202479 9105 E27.8 1637919 Drug therapy finding 309 910704 Z79.891 92943300 appears to be only as needed; may need scheduled doses when appropriat e Chronic pain syndrome 37 9184574 G89.4 98362 on COATS / duloxetine / pregabalin comorbid fibromyalg ia, reports primarily joint pains / back pain as the main pain triggers Infection caused by extended spectrum beta-lactamase producing Escherichia coli 809706577 A49.8 Z16.12 4594127 on meropenam with last dose schedule 07/06/2024 Lymphedema of left lower limb 7406830067 9020801 I89.0 72275937 followed by vascular History of fall 44569233 9 Z91.81 138558 secondary to dehydratio n / sepsisACUT E right sided rib fractures (5-8 lalterally , 10 posteriorl y), nondisplac ed fracture of RIGHT transverse process at L1. Clinical finding 6403192 03 Z74.09 05356246 wheelchair bound prior to hospitaliz ation; she's been able to stand and pivot on the RIGHT leg for transfer (Feb 2024 admission for LEFT tib/fib fx and NWB on discharge from that admission) . Recurrent urinary tract infection 800594392 N39.0 8730122 may benefit from topical / intravagin al hormone therapy Mood disorder 64673545 F 39 75086505 on bupropion Gastroesop hageal reflux disease without esophagitis 516947957 K21.9 962649 on PPI Chronic co mbined systolic and diastolic heart failure 8616697390 61651 I50.42 594833 suspected restrictiv e disease; on lasix maintenanc e; appears compensate d Closed fra cture of five ribs 30954955 S22.41XD 18790863 as [place] [id number] [place] [address] 07/12/2024 09:46:18 07/16/2024 12:02:42 Closed fracture of tibia AND fibula 823552163 S82.201D S82.401D 77289726 Orthopedic surgery consulted -Unclear acuity of the right tibia-fibu la fracture, no surgical interventi on. Recommendi ng WBAT RLE, TDWB LLE.cont PT/OTcont oxycodone to 25 mg q4 prn for better pain management pain is controlled Essential hypertension 38126281 I10 better control with atenolol increasedi mproved SBP now 130-140's/ previoulsy 170scpnt atenolol to 50 mg daily Chronic pr imary low back pain 8180405483 7100 M54.59 G89.29 6667969237 cont oxycodone 25mg Q 4 prncont lyrica 200 mg bidcont PT/[place] [id number] [place] [address] 07/15/2024 16:25:38 07/17/2024 13:30:53 Closed fracture of tibia AND fibula 715095049 S82.201D S82.401D 90879250 Orthopedic surgery consulted -Unclear acuity of the right tibia-fibu la fracture, no surgical interventi on. Recommendi ng WBAT RLE, TDWB LLE.cont PT/OTcont oxycodone to 25 mg q4 prn for better pain management pain is controlled Essential hypertension 77717664 I10 continue atenolol 50 mg qd Chronic pr imary low back pain 6187765325 7100 M54.59 G89.29 3161706181 pain is controlled cont oxycodone 25mg Q 4 prncont lyrica 200 mg bidcont PT/OT Lymphedema 510784830 I89 .0 Continue furosemide 40 Mg daily increased to [id number] [place] [address] 07/18/2024 11:10:56 07/24/2024 12:49:27 Closed fracture of tibia AND fibula 528016393 S82.201D S82.401D 22033896 stabkeOrth opedic surgery consulted -Unclear acuity of the right tibia-fibu la fracture, no surgical interventi on. Recommendi ng WBAT RLE, TDWB LLE.cont PT/OTcont oxycodone to 25 mg q4 prn for better pain management pain is controlled Essential hypertension 27706947 I10 stablecont inue atenolol 50 mg qd Chronic pr imary low back pain 9083148824 7100 M54.59 G89.29 7695493831 stablepain is controlled cont oxycodone 25mg Q 4 prncont lyrica 200 mg bidcont PT/OT Lymphedema 331266445 I89 .0 stableCont inue furosemide 60 Mg daily [id number] LYRIC L[address] [place] [address] 07/22/2024 17:23:19 07/24/2024 12:50:21 Closed fracture of tibia AND fibula 661381781 S82.201D S82.401D 70229747 stableOrth opedic surgery consulted -Unclear acuity of the right tibia-fibu la fracture, no surgical interventi on. Recommendi ng WBAT RLE, TDWB LLE.cont PT/OTcont oxycodone to 25 mg q4 prn for better pain management pain is controlled Essential hypertension 90301458 I10 stablecont inue atenolol 50 mg qd Chronic pr imary low back pain 2864700139 7100 M54.59 G89.29 1214327164 stablepain is controlled cont oxycodone 25mg Q 4 prncont lyrica 200 mg bidcont PT/OT Lymphedema 857321531 I89 .0 stableCont inue furosemide 60 Mg daily [id number] LYRIC [address]OU [address] [place], [place] [address] 07/25/2024 08:29:59 07/29/2024 14:24:01 Closed fracture of tibia AND fibula 590565283 S82.201D S82.401D 41013791 Hx of right leg fractures from 2 years ago -11/27/2023 CT RLE e xtensively comminuted , subacute or chronic appearing fractures throughout the medial and lateral tibial plateaus.O rthopedic surgery consulted -Unclear acuity of the right tibia-fibu la fracture, no surgical interventi on.Recomme nding WBAT RLE, TDWB LLE.PT/OT eval and tx Lymphedema 927609654 I89 .0 stableCont inue furosemide 40 Mg daily Aortic thromboembolism 499947505 I74.10 stableChro gato aortic mural thrombusCh ronic inferior mesenteric artery occlusions een by vascular no immediate interventi oncan f/u with vascular as needed Adrenal incidentaloma 97 51202783 9105 E27.8 2877687 06/26 CT abdomen 2 .1 cm solid nodule in the left adrenalout patient follow-up Hypokalemia 27499692 E87 .6 Repleted/ resolvedfo llow labs and need to start QD supplement kcl due to diuretic Rheumatoid arthritis 698 47814 M06.9 0221150709 stablecont inue home prednisone 4mg dailyconti nue methotrexa te 25mg weekly Rhabdomyolysis 444008400 M62.82 resolvedre nal fxn improved with IVFTransam initis, hyperbilir ubinemia (E80.6) r esolvedLFT s spontaneou sly improved Hypothyroidism 28295073 E03.9 cont Levothyrox ine 50 mcg Gastroesop hageal reflux disease 275409831 K21.[address] cont omep[address] Depressive disorder 3548 9007 F32.A stablecont bupropion, duloxetine qd Essential hypertension 66197970 I10 stablecont doxazosin, atenolol Chronic pr imary low back pain 1005700474 7100 M54.59 G89.29 8389723259 stablecont oxycodone 22.5 mg Q 4 prncont lyrica 200 mg bid Health Concerns Section Related Observation LastModified by Organization Detai ls LastModified Time None Recorded Concern Status LastModified by Organization Details LastModified Time None Recorded Advance Directives Directive Y: Payers Insurance Date Sequence Insurance Name Policy Number Policy Hassan Covered Member ID Hassan Member ID Guarantor Name 07/25/2024 1 [facility] (MEDICARE REPLACEMENT/A DVANTAGE - PPO) [id number] Alexandrea Renee [id number] Alexandrea Renee Notes Date Note Type Note Provider Name and Address Organization Details Recorded Time 07/12/2024 text/html ROS as noted in the HPI Alexandrea is a 74 y/o female seen for acute rounding visit, she [...] no acute nursing concerns. LYRIC LOU [address], [address], [place], [address], [employer] 07/15/2024 14:41:26 07/15/2024 text/html ROS as noted in the HPI Alexandrea is a 74 y/o female seen for acute rounding visit, she [...] ni acute nursing concerns. LYRIC LOU [address], [address], [place], [address], [facility] 07/16/2024 17:30:48 07/18/2024 text/html ROS as noted in the HPI Alexandrea is a 74 y/o female seen for acute rounding visit, she [...] ready to go home. LYRIC LOU [address], [address], [place], [address], [employer] 07/22/2024 17:39:41 07/22/2024 text/html ROS as noted in the HPI Alexandrea is a 74 y/o female seen for acute rounding visit, she [...] lymphedema in LLE extremity. LYRIC LOU [address], [address], [place], [address], [employer] 07/23/2024 19:21:15 07/25/2024 text/html ROS as noted in the HPI Discharge This is a 74yr old femal patient with a history of RA on methotrexate and chronic prednisone, HTN, chronic lymphedema, PAD, chronic pain, COPD and recurrent UTI with history of ESBL E. coli UTI, Admitted to [facility] for rehab . presented to ED lethargic [...] the next 2 weeks. LYRIC LOU [address], [address], [place], [address], [facility] [employer] 07/25/2024 09:54:37 OBGyn Episode No OBEpisode recorded.
[2025-03-08 12:11] LABS: Appearance Urine Cloudy; Glucose Urine UA Negative (Negative); PH 8.5 (5.0-9.0); Specific Gravity - Urine 1.010 (1.005-1.025); UMIC TRIGGER UACC YES
[2025-03-08 12:17] LABS: UACC Culture Trigger YES
--- NOTE | 2025-03-08 12:21 | ED.NAVMDI ---
HPI - Nausea/Vomiting/Diarrhea General Chief complaint: Nausea/Vomiting/Diarrhea Stated complaint: N/V PER EMS Time Seen by Provider: 03/08/25 12:09 Source: patient and RN notes reviewed Mode of arrival: ambulatory Limitations: no limitations History of Present Illness ED Provider: Nikki Riggs PA-C HPI Narrative: This is a 75-year-old female, with a past medical history of ESBL UTI, PID, COPD, hypertension, fibromyalgia, depression, CHF, and RA, who presents emergency department with concerns of nausea and vomiting since 03/07. Patient reports that since yesterday she has had constant, severe abdominal pain. She states that she has had nausea, vomiting, in his unable to tolerate p.o.. She states that she normally takes oral oxycodone for chronic joint pain and leg pain however she has been unable to keep any of her medications down and believes she is now experiencing opioid withdrawal p.o. she denies any fevers, chills, chest pain, or shortness of breath. She states that beginning today she has felt the urge to urinate but is often unable to void. She states that her symptoms feel similar to her prior urinary tract infections. MD elicited complaint: nausea, vomiting and abdominal pain Associated nausea: Yes Associated abdominal pain: Yes Location of pain: diffuse Radiation: diffuse Related Data Home Medications ?Medication ?Instructions ?Recorded ?Confirmed methotrexate sodium 2.5 mg tablet 25 mg PO WE@0900 08/23/21 03/09/25 omeprazole 40 mg capsule,delayed 40 mg PO DAILY@0630 08/23/21 03/09/25 release prednisone 1 mg tablet 4 mg PO DAILY 08/23/21 03/09/25 pregabalin 200 mg capsule 200 mg PO BID 01/07/23 03/09/25 folic acid 1 mg tablet 2 mg PO DAILY 10/13/23 03/09/25 acetaminophen 325 mg tablet 650 mg PO Q4H PRN Moderate Pain 03/04/24 03/09/25 (Tylenol) (Scale Score 5-6) melatonin 10 mg tablet 10 mg PO BEDTIME PRN Sleep 05/03/24 03/09/25 multivitamin 1 tab PO DAILY 05/03/24 03/09/25 atenolol 25 mg tablet 50 mg PO DAILY 08/29/24 03/09/25 furosemide 40 mg tablet 40 mg PO DAILY PRN Edema 10/07/24 03/09/25 cholecalciferol (vitamin D3) 25 25 mcg PO DAILY 02/19/25 03/09/25 mcg (1,000 unit) capsule doxazosin 2 mg tablet 2 mg PO BEDTIME 03/09/25 03/09/25 magnesium oxide 400 mg PO DAILY 03/09/25 03/09/25 thiamine HCl (vitamin B1) 50 mg 50 mg PO DAILY 03/09/25 03/09/25 tablet Previous Rx's ?Medication ?Instructions ?Recorded oxycodone 20 mg tablet 20 mg PO Q4H PRN pain (scale score 02/27/24 7-10) #20 tabs Allergies Allergy/AdvReac Type Severity Reaction Status Date / Time lisinopril (LISINOPRIL) Allergy Severe ANAPHYLAXIS Verified 03/08/25 11:23 Sulfa (Sulfonamide Allergy Intermediate RASH Verified 03/08/25 11:23 Antibiotics) (SULFA (SULFONAMIDE ANTIBIOTICS)) tramadol (TRAMADOL) Allergy Intermediate RASH Verified 03/08/25 11:23 Legovev-QXU-PrN Reductase Allergy Rash Verified 03/08/25 11:23 Inhibitor (Sorvuuj-Jao-Crb Reductase Inhibitor) hydrochlorothiazide (HCTZ) AdvReac Unknown ABNORMAL Verified 03/08/25 11:23 LABS? Review of Systems Review of Systems: Constitutional : No Fever, No Chills ENT/Mouth : No sore throat, No Rhinorrhea Eyes: No Eye Pain, No Swelling, No Redness Cardiovascular : No Chest Pain, No SOB Respiratory : No Cough, No Sputum Gastrointestinal : + Nausea, + Vomiting, No Diarrhea, +abdominal Pain Genitourinary : No Dysuria, No Hematuria Musculoskeletal : No joint pain, No Myalgias, No Joint Swelling Skin : No Skin Lesions Neuro : No Weakness, No Numbness, No Headache All other systems reviewed and are negative Yes all other systems are reviewed and are negative Constitutional: Constitutional: Reports as per HPI Gastrointestinal: Gastrointestinal: Reports nausea PMFSH Past Medical History Medical History Hypertension Oxygen dependent Urinary tract infection due to extended-spectrum beta lactamase (ESBL) producing Escherichia coli Osteomyelitis COPD (chronic obstructive pulmonary disease) Hypothyroidism Congestive heart failure Fibromyalgia Depression Rheumatoid arthritis Surgical History Hx of prior ablation treatment Knee joint replacement status Family History Family History Father No problems noted. Other Heart disease Social History Social History Household Members: None Household Members Other:: 0 Housing: Apartment Housing Other:: 1st floor Do you presently have visiting nurse or other home services: Yes Alcohol intake: never Comment: bedside commode Patient Tobacco Use Status: Former Tobacco user Tobacco use type: Cigarette e-Cigarette/Vaping Use: Never Used Second Hand Smoke Exposure: No Advance Directives Date on File: 10/19/23 service: No Physical Exam Vital Signs: Vital Signs: Last Vital Signs Temp 97.7 F 03/11/25 19:20 Pulse 71 03/11/25 19:20 Resp 16 03/11/25 19:20 BP 145/61 H 03/11/25 19:20 Pulse Ox 95 03/11/25 19:20 O2 Del Method Room Air 03/11/25 19:20 O2 Flow Rate 2 03/09/25 23:21 BMI result Body Mass Index 44.3 Const: General: cooperative, comfortable and no acute distress Orientation/consciousness: patient oriented x3 Limitations: no limitations HEENT: Head: Yes normal to inspection, Yes normocephalic and Yes atraumatic Ears: hearing grossly normal bilaterally General nose exam: Normal external nose present Face and sinus: Yes normal facial exam Mouth: Normal oral and palatal mucosa present, oropharynx normal and moist mucous membranes Throat: Yes posterior oropharynx normal Eyes: General: appearance normal, both eyes and all related structures Eyelids: Yes eyelids normal Conjunctivae: conjunctivae normal Sclerae: sclerae normal Pupils: Equal, round and reactive pupils present EOM: EOMs intact bilaterally Neck: Neck: Yes normal visual inspection, Yes full ROM and Yes no lymphadenopathy Lymphatic: no lymphadenopathy noted Chest: Chest palpation & inspection: normal inspection of the chest Resp: Effort & Inspection: normal respiratory effort and able to speak in complete sentences Auscultation: clear to auscultation bilaterally, no crackles, no rales, no rhonchi and no wheezes Cardio: Rate: regular rate Rhythm: regular rhythm Heart sounds: S1 normal heart sound present and S2 normal heart sound present GI: Other: Abdomen is soft, with diffuse tenderness throughout, no rebound or guarding. Inspection: Yes normal to inspection Skin: General skin exam: no rashes or lesions noted Trauma: no lacerations or abrasions Wounds: no wounds Neuro: General: patient oriented x3 and moves all extremities Cranial nerves: Yes Equal, round and reactive pupils present Extrem: General: Yes normal to inspection Right upper extremity: normal to inspection Left upper extremity: normal to inspection Right lower extremity: normal to inspection Left lower extremity: normal to inspection Medications Administered Generic Name Dose Route Start Last Admin Trade Name Freq PRN Reason Stop Dose Admin Atenolol 50 mg 03/11/25 09:00 03/11/25 07:57 Atenolol 50 Mg Tablet PO 50 mg DAILY EUGENIO Administration Protocol Calcium Carbonate 750 mg 03/08/25 19:07 03/11/25 16:19 Calcium Carbonate 750 Mg Tab.Chew PO 750 mg Q4H PRN Administration Heartburn Doxazosin Mesylate 2 mg 03/09/25 21:00 03/11/25 20:30 Doxazosin Mesylate 2 Mg Tablet PO 2 mg BEDTIME EUGENIO Administration Protocol Enoxaparin Sodium 40 mg 03/09/25 09:00 03/11/25 07:59 Enoxaparin Sodium 40 Mg/0.4 Ml Syringe SUBCUT 40 mg Q24H EUGENIO Administration Folic Acid 2 mg 03/11/25 09:00 03/11/25 07:56 Folic Acid 1 Mg Tablet PO 2 mg DAILY EUGENIO Administration Furosemide 40 mg 03/09/25 09:00 03/11/25 07:58 Furosemide 40 Mg Tablet PO 40 mg DAILY EUGENIO Administration Protocol Hydralazine HCl 5 mg 03/11/25 00:13 03/11/25 00:22 Hydralazine Hcl 20 Mg/Ml Vial IVPUSH 5 mg Q6H PRN Administration SBP > 160 Protocol Hydromorphone HCl 0.5 mg 03/08/25 20:42 03/09/25 07:44 Hydromorphone Hcl 1 Mg/Ml Syringe IVPUSH 0.5 mg Q4H PRN Administration Pain, Severe (Pain Scale 7-10) Protocol Piperacillin Sod/Tazobactam 50 mls @ 100 mls/hr 03/11/25 16:00 03/11/25 21:18 Sod 2.25 gm/ Sodium Chloride IV Infused Q6H EUGENIO Infusion Magnesium Oxide 400 mg 03/11/25 09:00 03/11/25 07:57 Magnesium Oxide 400 Mg Tablet PO 400 mg DAILY EUGENIO Administration Melatonin 6 mg 03/08/25 19:07 03/08/25 23:08 Melatonin 3 Mg Tablet PO 6 mg BEDTIME PRN Administration Insomnia Multivitamins/Vitamin C 1 tab 03/11/25 09:00 03/11/25 07:56 Multivitamin Tablet PO 1 tab DAILY EUGENIO Administration Omeprazole 40 mg 03/11/25 21:00 03/11/25 20:30 Omeprazole 40 Mg Capsule.Dr PO 40 mg BID EUGENIO Administration Ondansetron HCl 4 mg 03/08/25 19:07 03/11/25 18:13 Ondansetron Hcl 4 Mg/2 Ml Vial IVPUSH 4 mg Q8H PRN Administration Nausea and Vomiting Oxycodone HCl 20 mg 03/08/25 23:00 03/11/25 18:11 Oxycodone Hcl Immed Release 5 Mg Tablet PO 20 mg Q4H PRN Administration Pain, Moderate(Pain Scale 4-6) Prednisone 4 mg 03/11/25 09:00 03/11/25 07:58 Prednisone 1 Mg Tablet PO 4 mg DAILY EUGENIO Administration Pregabalin 200 mg 03/08/25 23:51 03/11/25 20:30 Pregabalin 200 Mg Capsule PO 200 mg BID EUGENIO Administration Senna 17.2 mg 03/08/25 21:00 03/11/25 20:30 Sennosides 8.6 Mg Tablet PO 17.2 mg BEDTIME EUGENIO Administration Sodium Chloride 3 ml 03/09/25 00:00 03/11/25 20:31 0.9 % Sodium Chloride Flush 3 Ml Syringe IVFLUSH 3 ml QSHIFT EUGENIO Administration Thiamine HCl 50 mg 03/11/25 09:00 03/11/25 07:56 Thiamine Hcl 100 Mg Tablet PO 50 mg DAILY EUGENIO Administration Vitamin D 25 mcg 03/11/25 09:00 03/11/25 07:58 Cholecalciferol (Vitamin D3) 25 Mcg Tablet PO 25 mcg DAILY EUGENIO Administration Discontinued Medications Generic Name Dose Route Start Last Admin Trade Name Freq PRN Reason Stop Dose Admin Atenolol 25 mg 03/09/25 19:33 03/09/25 20:11 Atenolol 25 Mg Tablet PO 03/09/25 19:34 25 mg ONCE ONE Administration Protocol Hydralazine HCl 5 mg 03/11/25 00:12 03/11/25 00:21 Hydralazine Hcl 20 Mg/Ml Vial IVPUSH 03/11/25 00:13 Not Given ONCE ONE Protocol Hydromorphone HCl 1 mg 03/08/25 12:27 03/08/25 12:46 Hydromorphone Hcl 1 Mg/Ml Syringe IVPUSH 03/08/25 12:28 1 mg ONCE ONE Administration Protocol Hydromorphone HCl 1 mg 03/08/25 14:51 03/08/25 15:34 Hydromorphone Hcl 1 Mg/Ml Syringe IVPUSH 03/08/25 14:52 1 mg ONCE ONE Administration Protocol Ertapenem 1 gm/ Sodium 50 mls @ 100 mls/hr 03/08/25 17:34 03/08/25 18:34 Chloride IV 03/08/25 18:03 Infused ONCE ONE Infusion Lactated Ringer's 1,000 mls @ 80 mls/hr 03/08/25 20:15 03/09/25 18:07 Lr IVCONT Infused .[id number] EUGENIO Infusion Piperacillin Sod/Tazobactam 50 mls @ 100 mls/hr 03/08/25 22:00 03/11/25 09:39 Sod 3.375 gm/ Sodium Chloride IV Infused Q6H EUGENIO Infusion Iohexol 100 ml 03/08/25 16:13 03/08/25 16:17 Iohexol 350 Mg/Ml 100 Ml Infus..Btl IV 03/08/25 16:14 85 ml ONCE ONE Administration Ketorolac Tromethamine 15 mg 03/08/25 19:51 03/09/25 06:27 Ketorolac Tromethamine 15 Mg/Ml Vial IVPUSH 03/10/25 19:50 15 mg Q6H PRN Administration Pain, Moderate(Pain Scale 4-6) Omeprazole 40 mg 03/09/25 06:30 03/11/25 05:40 Omeprazole 40 Mg Capsule.Dr PO 40 mg DAILY@0630 EUGENIO Administration Ondansetron HCl 4 mg 03/08/25 12:27 03/08/25 12:46 Ondansetron Hcl 4 Mg/2 Ml Vial IVPUSH 03/08/25 12:28 4 mg ONCE ONE Administration Oxycodone HCl 10 mg 03/08/25 20:38 03/08/25 20:56 Oxycodone Hcl Immed Release 5 Mg Tablet PO 10 mg Q4H PRN Administration Pain, Moderate(Pain Scale 4-6) Medical Decision Making Medical Decision Making [facility] Narrative: This is a 75-year-old female, with a past medical history of ESBL UTI, PID, COPD, hypertension, fibromyalgia, depression, CHF, and RA, who presents emergency department with concerns of nausea and vomiting since 03/07. Patient reports that since yesterday she has had constant, severe abdominal pain. On arrival, patient hypertensive at 217/113, however this improved significantly after receiving pain medication. She has no chest pain, shortness for breath, blurred vision, or headaches. She does have a history of ESBL UTI, and she is now having urinary symptoms, therefore UTI is high on my differential. Labs were obtained prior to my evaluation, she does have no leukocytosis, chemistry revealing no evidence of CASSANDRA. She does have elevated liver transaminases with an AST and ALT of 373/1 99, and an alk phos of 210. Urine with trace blood, positive nitrites, leuk esterases, wbc's, 4+ bacteria seen. Given liver enzymes elevated, will CT to rule out in the heat pathology given pain Association will also repeat troponin 3:13 PM 03/08/2025 (Nikki Riggs PA-C): Patient re-evaluated, Dilaudid provided her with some relief, however still continues with severe pain. Nausea has improved. Awaiting CT. We will continue to closely monitor.\ 4:36 PM 03/08/2025 (Nikki Riggs PA-C): Patient asleep in stretcher. Resting comfortably. Awaiting CT scan. 5:36 PM 03/08/2025 (Nikki Riggs PA-C): CT abdomen and pelvis revealing punctate focus of gas density within urine bladder raising concern for cystitis. No other acute abnormality. She does have a bilobed infrarenal abdominal aortic aneurysm measuring up to 4.[address] evidence of leak. Given urine does appear to be infected, and she has a history of ESBL, sensitive to ertapenem. She has received ertapenem in the past, recent admission. We will repeat trope as she does have a slight increased, although this does not appear to be ACS in nature. EKG nonischemic, will repeat as 1st EKG was a port capture. Hepatitis panel still pending. Given history of ESBL, UTI, and elevation in liver transaminases amylase bases, patient should be admitted for further management and observation. I did place an ultrasound of the gallbladder to ensure no gallbladder etiology although this is less likely. Patient is agreeable for admission. Differential Diagnosis Differential Diagnoses: The differential diagnosis associated with the presentation includes Admission/Observation Consideration of admission/observation: Escalation of care including admission/observation considered Lab Data [facility] Lab Attestation statement: I reviewed the patient's lab results. See [facility] 03/10/25 08:29 03/11/25 08:43 Labs: Lab Results 03/08/25 03/08/25 03/08/25 Range/Units 12:04 12:46 15:40 WBC 9.7 (4.8-10.8) X10*3/uL RBC 4.66 (4.20-5.50) X10*6/uL Hgb 13.8 (12.0-16.0) g/dl Hct 42.1 (37.0-47.0) % MCV 90.3 (80.0-98.0) fL MCH 29.6 (27.0-33.0) pg MCHC 32.8 (31.0-35.0) g/dl RDW 15.2 (11.0-16.0) % Plt Count 198 D (160-400) X10*3/uL MPV 10.6 (9.4-12.3) fL Immature Gran % (Auto) 0.9 H (0.0-0.4) % Neut % (Auto) 83.9 H (45-73) % Lymph % (Auto) 11.6 L (20-40) % Bacon % (Auto) 2.7 (2-11) % Eos % (Auto) 0.6 (0-4) % Baso % (Auto) 0.3 (0-2) % Lymph # (Auto) 1.1 L (1.2-4.9) X10*3/uL Bacon # (Auto) 0.3 (0.1-1.2) X10*3/uL Eos # (Auto) 0.1 (0.0-0.4) X10*3/uL Baso # (Auto) 0.0 (0.0-0.2) X10*3/uL Abs Immat Gran (auto) 0.09 H (0.00-0.03) X10*3/uL Absolute Neuts (auto) 8.1 (2.0-8.3) x10*3/uL Absolute Nucleated RBC 0.000 (0.0-0.012) X10*3/uL Nucleated RBC % (auto) 0.0 (0.0-0.2) /100WBC Sodium 142 (135-145) mmol/L Potassium 4.7 D (3.3-5.1) mmol/L Chloride 107 (96-108) mmol/L Carbon Dioxide 24 (22-29) mmol/L Anion Gap 16 (12-20) BUN 17 H (9-16) mg/dL Creatinine 1.05 (0.5-1.4) mg/dL Estim Creat Clear Calc 57.8 Estimated GFR 51 Random Glucose 110 (60-115) mg/dL Lactic Acid 1.3 (0.5-2.0) mmol/L Calcium 9.3 (8.4-10.2) mg/dL Magnesium 2.2 (1.6-2.6) mg/dL Total Bilirubin 1.0 (0.0-1.0) mg/dL Direct Bilirubin 0.6 H (0.0-0.5) mg/dL AST 373 H (5-31) U/L ALT 199 H (0-31) U/L Alkaline Phosphatase 210 H (39-117) U/L Troponin I High Sens 6.4 D 13.3 D (<3.5-17.0) ng/L NT-Pro-B Natriuret Pep (<300) pg/mL Total Protein 8.0 (6.5-8.0) g/dL Albumin 3.8 (3.5-5.0) g/dL Lipase 21 (8-78) U/L TSH 0.42 (0.32-4.0) uIU/mL Urine Color Yellow Urine Appearance Cloudy Urine pH 8.5 (5.0-9.0) Ur Specific Lowes 1.010 (1.005-1.025) Urine Protein Trace (Neg-Trace) mg/dL Urine Glucose (UA) Negative (Negative) mg/dL Urine Ketones Negative (Negative) mg/dL Urine Blood Trace H (Negative) Urine Nitrite Positive H (Negative) Ur Leukocyte Esterase Large (3+) H (Negative) Urine RBC 0-2 (0-2) /HPF Urine WBC >50 H (0-5) /HPF Ur Squamous Epith Cells 0-2 (0-2) /HPF Urine Bacteria 4+ (None Seen) Hyaline Casts 0-2 (0-2) /LPF Hepatitis A IgM Ab Nonreactive (Nonreactive) Hep Bs Antigen Negative (Negative) Hep Bs Antibody NONREACTIVE (Nonreactive) Hep B Core Total Ab Nonreactive (Nonreactive) Hepatitis C Ab (EIA) Nonreactive (Nonreactive) Influenza Type A (PCR) NEGATIVE (Negative) Influenza Type B (PCR) NEGATIVE (Negative) RSV RNA Qual (PCR) NEGATIVE (Negative) SARS-CoV-2 RNA (RT-PCR) NEGATIVE (Negative) 03/08/25 Range/Units 18:03 WBC (4.8-10.8) X10*3/uL RBC (4.20-5.50) X10*6/uL Hgb (12.0-16.0) g/dl Hct (37.0-47.0) % MCV (80.0-98.0) fL MCH (27.0-33.0) pg MCHC (31.0-35.0) g/dl RDW (11.0-16.0) % Plt Count (160-400) X10*3/uL MPV (9.4-12.3) fL Immature Gran % (Auto) (0.0-0.4) % Neut % (Auto) (45-73) % Lymph % (Auto) (20-40) % Bacon % (Auto) (2-11) % Eos % (Auto) (0-4) % Baso % (Auto) (0-2) % Lymph # (Auto) (1.2-4.9) X10*3/uL Bacon # (Auto) (0.1-1.2) X10*3/uL Eos # (Auto) (0.0-0.4) X10*3/uL Baso # (Auto) (0.0-0.2) X10*3/uL Abs Immat Gran (auto) (0.00-0.03) X10*3/uL Absolute Neuts (auto) (2.0-8.3) x10*3/uL Absolute Nucleated RBC (0.0-0.012) X10*3/uL Nucleated RBC % (auto) (0.0-0.2) /100WBC Sodium (135-145) mmol/L Potassium (3.3-5.1) mmol/L Chloride (96-108) mmol/L Carbon Dioxide (22-29) mmol/L Anion Gap (12-20) BUN (9-16) mg/dL Creatinine (0.5-1.4) mg/dL Estim Creat Clear Calc Estimated GFR Random Glucose (60-115) mg/dL Lactic Acid (0.5-2.0) mmol/L Calcium (8.4-10.2) mg/dL Magnesium (1.6-2.6) mg/dL Total Bilirubin (0.0-1.0) mg/dL Direct Bilirubin (0.0-0.5) mg/dL AST (5-31) U/L ALT (0-31) U/L Alkaline Phosphatase (39-117) U/L Troponin I High Sens 18.2 H (<3.5-17.0) ng/L NT-Pro-B Natriuret Pep 2531.0 H (<300) pg/mL Total Protein (6.5-8.0) g/dL Albumin (3.5-5.0) g/dL Lipase (8-78) U/L TSH (0.32-4.0) uIU/mL Urine Color Urine Appearance Urine pH (5.0-9.0) Ur Specific Lowes (1.005-1.025) Urine Protein (Neg-Trace) mg/dL Urine Glucose (UA) (Negative) mg/dL Urine Ketones (Negative) mg/dL Urine Blood (Negative) Urine Nitrite (Negative) Ur Leukocyte Esterase (Negative) Urine RBC (0-2) /HPF Urine WBC (0-5) /HPF Ur Squamous Epith Cells (0-2) /HPF Urine Bacteria (None Seen) Hyaline Casts (0-2) /LPF Hepatitis A IgM Ab (Nonreactive) Hep Bs Antigen (Negative) Hep Bs Antibody (Nonreactive) Hep B Core Total Ab (Nonreactive) Hepatitis C Ab (EIA) (Nonreactive) Influenza Type A (PCR) (Negative) Influenza Type B (PCR) (Negative) RSV RNA Qual (PCR) (Negative) SARS-CoV-2 RNA (RT-PCR) (Negative) Radiology Impression Discussion of test interpretation with radiology: I have reviewed the radiologist's reading. External Record Review External record reviewed: Inpatient record, Office record, Outpatient record, Prior outpatient labs, Prior outpatient radiology, Primary care record and Outside ED record Critical Care Time Critical Care Time Critical Care Time: Yes Total Critical Care Time: 35 Attestation: I have personally provided critical care time exclusive of time spent on separately billable procedures. Time includes review of lab data, radiology results, discussion with consultants, and monitoring for potential decompensation. Intervention performed as documented. Discharge Plan Discharge Clinical Impression: Infrarenal abdominal aortic aneurysm (AAA) without rupture, Transaminitis Acute cystitis Qualifiers: Hematuria presence: without hematuria Qualified Code(s): N30.00 - Acute cystitis without hematuria Patient Disposition: Admitted As Inpatient Discharge Date/Time: 03/09/25 17:35
--- NOTE | 2025-03-08 12:22 | PC.NURSE ---
Pt has been using the call phillips roughly every 5 minutes, calling staff in multiple times requesting pain medication, this RN and other staff have provided emotional support, letting her know the provider will be with her shortly and once they place orders we will be able to get her medications. Pt also helped to the bathroom multiple times, at this time pt to be placed on purewic
--- NOTE | 2025-03-08 12:27 | ECG_ITS ---
Test Reason : EPIGASTRIC PAIN Blood Pressure : */* mmHG Vent. Rate : 77 BPM Atrial Rate : 77 BPM P-R Int : 132 ms QRS Dur : 86 ms QT Int : 378 ms P-R-T Axes : 60 6 -9 degrees QTcB Int : 427 ms Normal sinus rhythm Nonspecific ST abnormality Abnormal ECG When compared with ECG of 19-Feb-2025 08:42, ST now depressed in Inferior leads ST no longer depressed in Anterolateral leads Nonspecific T wave abnormality no longer evident in Anterolateral leads Referred By: Nikki Riggs Electronically Signed By: ZAK KWONG MD
[2025-03-08 12:46] VITALS: RESP 22
[2025-03-08 12:59] LABS: MANUAL DIFF FLAG NO
[2025-03-08 13:01] LABS: Hematocrit 42.1 % (37.0-47.0); Hemoglobin 13.8 g/dl (12.0-16.0); Imm Gran Abs Auto 0.09 X10*3/uL (0.00-0.03); Imm Gran Pct Auto 0.9 % (0.0-0.4); Lymphocytes Absolute Auto 1.1 X10*3/uL (1.2-4.9); Mean Corpuscular HGB Conc 32.8 g/dl (31.0-35.0); Mean Corpuscular Hemoglobin 29.6 pg (27.0-33.0); Mean Corpuscular Volume 90.3 fL (80.0-98.0); NRBC Abs Auto 0.000 X10*3/uL (0.0-0.012); NRBC Pct Auto 0.0 /100WBC (0.0-0.2); Platelet Count 198 X10*3/uL (160-400); Red Blood Count 4.66 X10*6/uL (4.20-5.50); White Blood Count 9.7 X10*3/uL (4.8-10.8)
[2025-03-08 13:18] LABS: Alanine Aminotransferase 199 U/L (0-31); Albumin Level 3.8 g/dL (3.5-5.0); Alkaline Phosphatase 210 U/L (39-117); Anion Gap 16 (12-20); Aspartate Amino Transferase 373 U/L (5-31); Blood Urea Nitrogen 17 mg/dL (9-16); Calcium 9.3 mg/dL (8.4-10.2); Carbon Dioxide 24 mmol/L (22-29); Chloride 107 mmol/L (96-108); Creatinine Clr Calc Pharmacy 57.8; Estimated Glomerular Filt Rate 51; Lipase 21 U/L (8-78); Magnesium 2.2 mg/dL (1.6-2.6); Potassium 4.7 mmol/L (3.3-5.1); Sodium 142 mmol/L (135-145); Total Protein 8.0 g/dL (6.5-8.0)
[2025-03-08 13:24] LABS: Troponin-I High Sensitivity 6.4 ng/L (<3.5-17.0)
[2025-03-08 14:00] VITALS: BP 177/94; PULSE 82; TEMP 37; O2SAT 97
[2025-03-08 15:34] VITALS: RESP 18
[2025-03-08 16:13] LABS: Troponin-I High Sensitivity 13.3 ng/L (<3.5-17.0)
[2025-03-08] MEDS: iohexoL 350 MG/ML 100 ML INFUS..BTL IV (16:17)
[2025-03-08 16:44] LABS: Resp Syncy Virus RNA Qual PCR NEGATIVE (Negative); SARS COV2 PCR INHOUSE NEGATIVE (Negative)
--- NOTE | 2025-03-08 17:32 | ECG_ITS ---
Test Reason : ELEVATED TROPONIN Blood Pressure : */* mmHG Vent. Rate : 74 BPM Atrial Rate : 74 BPM P-R Int : 134 ms QRS Dur : 84 ms QT Int : 386 ms P-R-T Axes : 52 9 30 degrees QTcB Int : 428 ms Normal sinus rhythm Normal ECG When compared with ECG of 08-Mar-2025 12:30, ST no longer depressed in Inferior leads Referred By: Nikki Riggs Electronically Signed By: ZAK KWONG MD
[2025-03-08 18:29] LABS: Troponin-I High Sensitivity 18.2 ng/L (<3.5-17.0)
--- NOTE | 2025-03-08 18:31 | PC.NURSE ---
spoke with pt dtr lalo, advised plan at this potential admission- pt dtr shared extensive history of present illness. all questions answered at this time.
[2025-03-08 18:38] VITALS: BP 126/87; PULSE 100; RESP 18; TEMP 36.9; O2SAT 96
--- NOTE | 2025-03-08 19:10 | PM.IMHP ---
History of Present Illness Date of Service: 03/08/25 Attending physician on admission: Andry Denis Chief Complaint: RUQ pain Patient is a 75-year-old female with past medical history hypertension, lymphedema, UTI/ESBL, osteomyelitis, COPD on O2 at night only 2-3 L, hypothyroidism, CHF, RA, fibromyalgia, history of fall with nondisplaced right 7th and 8th rib fractures, depression, obesity, infrarenal aneurysm, L TKR was BIBA with report of bilateral upper abdominal pain and associated nausea and vomiting that started yesterday. Patient does state she takes oxycodone regularly for rheumatoid arthritis, 20 mg every 4 hours but has not been able to keep down the pain medication since yesterday. Patient does deny any burning or pain with urination and frequency. UA found to be positive. Transaminitis also noted but CT is currently negative for any acute findings. Ultrasound of the abdomen is pending. Pt deneis alcohol use at home. Patient was started on ertapenem in the ED with infectious disease consulted. Patient currently reports chills but no fever. Patient denies any chest pain, shortness of breath at rest and states her nausea is much improved in his looking forward to eating something. Pt states her oxycodone is prescribed by her DEVELOPMENT WRITER and pt does not follow with a pain explosive specialist. Discussed with pt that the elevated LFTs may be a manifestation of her naroctic use and pt stated I am addicted, you can't take the oxycodone away . Plan in place to help with pain at a lower dose, see A/P. Patient currently has no leukocytosis and lactic acid is normal. UA is positive for UTI. AST 373, ALT 199, alk-phos 210. Hepatic panel pendng. Lipase 21. Electrolytes stable. Blood glucose 110. Troponins initially normal currently 18.2. No ischemic changes found on EKG. Initial EKG in the ED showed ST depressions in the inferior leads but repeat EKG shows resolve. Incidentally patient has a known infrarenal aneurysm that has grown from 4.0 in October 2019 to 4.5 cm currently. Patient states she is not following with a vascular provider so far. 06/2024 patient had a fall and was transferred to [facility] for possible liver laceration. Patient recalls being transferred but does not recall any interventions to include surgery. Patient was also found to have nondisplaced rib fractures and a possible BLADIMIR occlusion. Patient was not started on anticoagulation at that time. This sheet writer will try to obtain records from [facility] for that transfer. Patient has issues with her left knee total replacement and is following with ortho at [facility] for what she states as ongoing fractures which makes it impossible for her to ambulate. Patient is only able to stand turn and transfer with device. Per nursing, pt attempted to ambulate with assist to bathroom and it was extremely difficult for patient. Left leg is incidentally swollen with no evidence of cellulitis, warmth, redness or effusion on the knee. Review of Systems Review of Systems: Patient denies any chest pain, shortness of breath at rest. Patient states uses oxygen at night only and does not have sleep apnea. Patient states she is not able to ambulate can barely turn and pivot per nursing staff. Patient is having problems with her left total knee replacement in the sense that she states she has known fractures and is requiring surgery but has so far refused this with Orthopedics. Patient states her nausea has resolved. Patient denies any recent falls or injuries. Yes all other systems are reviewed and are negative [facility] Medical History Hypertension Oxygen dependent Urinary tract infection due to extended-spectrum beta lactamase (ESBL) producing Escherichia coli Osteomyelitis COPD (chronic obstructive pulmonary disease) Hypothyroidism Congestive heart failure Fibromyalgia Depression Rheumatoid arthritis Cognitive capacity: Alert and orientated x3 Functional capacity: wheelchair bound Patient : No Family History Father No problems noted. Other Heart disease Surgical History Hx of prior ablation treatment Knee joint replacement status Social History Household Members: None Household Members Other:: 0 Housing: Apartment Housing Other:: 1st floor Do you presently have visiting nurse or other home services: Yes ([employer]'s daily and VNA) Alcohol intake: never Comment: bedside commode Patient Tobacco Use Status: Former Tobacco user Tobacco use type: Cigarette e-Cigarette/Vaping Use: Never Used Second Hand Smoke Exposure: No Advance Directives: No Advance Directives Information Provided: No Advance Directives Date on File: 10/19/23 Nutrition Risks: No Nutritional Risk Patient : No service: No Ebola Risk: Travel/Contact With Anyone From Affected Area/s: No Has Patient Experienced Ebola Symptoms: No Meds Allergies Allergy/AdvReac Type Severity Reaction Status Date / Time lisinopril (LISINOPRIL) Allergy Severe ANAPHYLAXIS Verified 03/08/25 11:23 Sulfa (Sulfonamide Allergy Intermediate RASH Verified 03/08/25 11:23 Antibiotics) (SULFA (SULFONAMIDE ANTIBIOTICS)) tramadol (TRAMADOL) Allergy Intermediate RASH Verified 03/08/25 11:23 Uppegjy-KGV-MsN Reductase Allergy Rash Verified 03/08/25 11:23 Inhibitor (Vekhhnl-Pdi-Yqx Reductase Inhibitor) hydrochlorothiazide (HCTZ) AdvReac Unknown ABNORMAL Verified 03/08/25 11:23 LABS? Home Medications ?Medication ?Instructions ?Recorded ?Confirmed ?Last Taken ?Type bupropion HCl 300 mg 24 hr tablet, 300 mg PO DAILY@0900 08/23/21 02/19/25 02/17/25 History extended release levothyroxine 50 mcg tablet 50 mcg PO DAILY@0600 08/23/21 02/19/25 02/17/25 History methotrexate sodium 2.5 mg tablet 25 mg PO TU 08/23/21 02/19/25 02/11/25 History omeprazole 40 mg capsule,delayed 40 mg PO DAILY@0630 08/23/21 02/19/25 02/17/25 History release prednisone 1 mg tablet 4 mg PO DAILY 08/23/21 02/19/25 02/17/25 History pregabalin 200 mg capsule 200 mg PO BID 01/07/23 02/19/25 02/17/25 History folic acid 1 mg tablet 2 mg PO DAILY 10/13/23 02/19/25 02/17/25 History bupropion HCl 150 mg 24 hr tablet, 150 mg PO DAILY@0900 11/25/23 02/19/25 02/17/25 History extended release acetaminophen 325 mg tablet 650 mg PO Q4H PRN Moderate Pain 03/04/24 02/19/25 Unknown History (Tylenol) (Scale Score 5-6) ibuprofen 200 mg tablet 600 mg PO Q6H PRN Pain 05/03/24 02/19/25 Unknown History melatonin 10 mg tablet 10 mg PO BEDTIME PRN Sleep 05/03/24 02/19/25 Unknown History multivitamin 1 tab PO DAILY 05/03/24 02/19/25 02/17/25 History atenolol 25 mg tablet 50 mg PO DAILY 08/29/24 02/19/25 02/17/25 History fluticasone propionate 50 1 spray intranasal BID PRN Allergy 08/29/24 02/19/25 Unknown History mcg/actuation nasal Symptoms spray,suspension biotin 1 mg tablet 1 mg PO DAILY 10/07/24 02/19/25 02/17/25 History furosemide 40 mg tablet 40 mg PO DAILY 10/07/24 02/19/25 02/17/25 History cholecalciferol (vitamin D3) 25 25 mcg PO DAILY 02/19/25 02/19/25 02/17/25 History mcg (1,000 unit) capsule Physical Exam Vital Signs and Narrative: Vital Signs: Last Vital Signs Temp 98.4 F 03/08/25 18:38 Pulse 100 03/08/25 18:38 Resp 18 03/08/25 18:38 BP 126/87 03/08/25 18:38 Pulse Ox 96 03/08/25 18:38 O2 Del Method Room Air 03/08/25 18:38 BMI result Body Mass Index 44.3 Alert and orientated X3, able to give good history. Neuro: CN II-X11 intact, no deficits, visual acuity intact EYES: PERRLA, EOM intact, sclerae nonicteric, conjunctiva pink ENT: hearing intact, no issues with swallowing, uvula midline, lips moist, nares patent no epistaxis Cardiac: S1 S2 RRR, no murmur, no JVD, lower left leg edema Pulmonary: lungs diminished bilaterally Abdominal: BS active in all 4 quadrants, no guarding, mild tenderness with palpation, no rebounding, obese MSK: strength 2-3/5 lower extremities : no CVA tenderness no bladder distension Extremities: Left lower leg edema, left leg larger than right, left knee incision healed, PT and DP pulses palpable +2 Psych: mood stable, judgement and insight fair Skin: No new rashes or lesions Results Labs 03/09/25 04:16 03/09/25 04:16 Labs: Laboratory Results - last 24 hr 03/08/25 03/08/2525 12:04 12:46 15:40 MCV 90.3 MCH 29.6 MCHC 32.8 RDW 15.2 Plt Count 198 D MPV 10.6 Immature Gran % (Auto) 0.9 H Neut % (Auto) 83.9 H Lymph % (Auto) 11.6 L [place] % (Auto) 2.7 Eos % (Auto) 0.6 Baso % (Auto) 0.3 Lymph # (Auto) 1.1 L [place] # (Auto) 0.3 Eos # (Auto) 0.1 Baso # (Auto) 0.0 Abs Immat Gran (auto) 0.09 H Absolute Neuts (auto) 8.1 Absolute Nucleated RBC 0.000 Nucleated RBC % (auto) 0.0 Anion Gap 16 Estim Creat Clear Calc 57.8 Estimated GFR 51 Random Glucose 110 Lactic Acid 1.3 Calcium 9.3 Magnesium 2.2 Total Bilirubin 1.0 Direct Bilirubin 0.6 H AST 373 H ALT 199 H Alkaline Phosphatase 210 H Troponin I High Sens 6.4 D 13.3 D Total Protein 8.0 Albumin 3.8 Lipase 21 Urine Color Yellow Urine Appearance Cloudy Urine pH 8.5 Ur Specific [place] 1.010 Urine Protein Trace Urine Glucose (UA) Negative Urine Ketones Negative Urine Blood Trace H Urine Nitrite Positive H Ur Leukocyte Esterase Large (3+) H Urine RBC 0-2 Urine WBC >50 H Ur Squamous Epith Cells 0-2 Urine Bacteria 4+ Hyaline Casts 0-2 Influenza Type A (PCR) NEGATIVE Influenza Type B (PCR) NEGATIVE RSV RNA Qual (PCR) NEGATIVE SARS-CoV-2 RNA (RT-PCR) NEGATIVE 03/08/25 18:03 MCV MCH MCHC RDW Plt Count MPV Immature Gran % (Auto) Neut % (Auto) Lymph % (Auto) [place] % (Auto) Eos % (Auto) Baso % (Auto) Lymph # (Auto) [place] # (Auto) Eos # (Auto) Baso # (Auto) Abs Immat Gran (auto) Absolute Neuts (auto) Absolute Nucleated RBC Nucleated RBC % (auto) Anion Gap Estim Creat Clear Calc Estimated GFR Random Glucose Lactic Acid Calcium Magnesium Total Bilirubin Direct Bilirubin AST ALT Alkaline Phosphatase Troponin I High Sens 18.2 H Total Protein Albumin Lipase Urine Color Urine Appearance Urine pH Ur Specific [place] Urine Protein Urine Glucose (UA) Urine Ketones Urine Blood Urine Nitrite Ur Leukocyte Esterase Urine RBC Urine WBC Ur Squamous Epith Cells Urine Bacteria Hyaline Casts Influenza Type A (PCR) Influenza Type B (PCR) RSV RNA Qual (PCR) SARS-CoV-2 RNA (RT-PCR) ECG Attestation: I personally reviewed and interpreted this ECG as follows: (Normal sinus rhythm, no ischemic changes, QTC 428) Prior ECG tracings: available for review Imaging Radiologist's Impressions: CT abdomen and pelvis Impression: 1. Punctate focus of gas density within urinary bladder raises concern for cystitis, consider correlation with urinalysis. 2. Otherwise no acute abnormality or CT explanation for reported history of elevated liver function tests. 3. Bilobed infrarenal abdominal aortic aneurysm measuring up to 4.[address] evidence of leak. Abdominal ultrasound 1. Cholelithiasis with gallbladder wall thickening and equivocal trace pericholecystic fluid, findings concerning for cholecystitis Doppler left lower extremity pending Left knee x-ray 4V Negative for acute fractures Assessment and Plan (1) Acute cystitis: Qualifiers: Hematuria presence: without hematuria Qualified Code(s): N30.00 - Acute cystitis without hematuria Status: Acute (2) Transaminitis: Status: Acute (3) Infrarenal abdominal aortic aneurysm (AAA) without rupture: Status: Acute Plan Patient is a 75-year-old female with past medical history hypertension, lymphedema, UTI/ESBL, osteomyelitis, COPD on O2 at night only 2-3 L, hypothyroidism, CHF, RA, fibromyalgia, history of fall with nondisplaced right 7th and 8th rib fractures, depression, obesity, infrarenal aneurysm, L TKR was BIBA with report of bilateral upper abdominal pain and associated nausea and vomiting that started yesterday. Patient does state she takes oxycodone regularly for rheumatoid arthritis, 20 mg every 4 hours but has not been able to keep down the pain medication since yesterday. Patient does deny any burning or pain with urination and frequency. UA found to be positive. Transaminitis also noted but CT is currently negative for any acute findings. Patient being admitted with the following medical problems: UTI/history of ESBL Patient does not meet the criteria for sepsis on admission Patient is started on ertapenem in the ED with ID consultation [place]wick with Bladder scan Qshift, monitor for urinary retention IV fluids continue conservative rate noting history of heart failure Urine and blood cultures pending Transaminitis/ US ABD suggest cholecysitis without CBD dilitation Gi consulted General Surgery consulted Hepatits panel pending Lipase WNL LA WNL Zosyn added Avoid hepatotoxic meds Pt denies alcohol use, cannot take statins Infrarenal abdominal aortic aneurysm without rupture/ ? BLADIMIR occlusion/ PAD ? BLADIMIR occclusion listed also with 06/2024 visit, transferred to [facility], pt denies being placed on Anticoagulation: records requested Pt does not follow with vascualr surgeon Currently measurements infrarenal AAA indicate 4.5 cm, 10/2024 size was 4.0 BP controlled, renal fx stable Vascular consulted Immobility/s/p LTKA/ report of fractures/ Left leg larger than Right Knee 4V xray negative for acute fractues Doppler of LLE pending, rule out blood clot PT eval Bed bound with fall preventions measures, pt is full assist, recommend transfer to , no independent ambulation until seen by PT Case management consulted to ensure safety measures are in place at home, pt lives alone HFpEF BNP 2531, repeat echo requested, last echo 04/2024 noted ? 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 Supportive care Telemetry with continuous pulse ox Hypothyroidism TSH WNL Continue levothyroxine Hypertension Continue atenolol Low-sodium diet GERD Omeprazole Mood disorder Patient normally on bupropion QTC stable DVT prophylaxis: Lovenox Med rec pending Full code status Patient require at least a 2 midnight stay for IV antibiotics to treat UTI, further workup for transaminitis with expert consultation with GI, and vascular consultation to address growing infrarenal aneurysm. Quality Stroke Does the patient have a stroke diagnosis?: No Reason for No Anti-thrombotic by Day Two: N/A - Med Ordered VTE Prior VTE?: No VTE Risk Level:: Medical - moderate - high VTE Device Contraindication: N/A - Device Ordered VTE Drug Contraindication: N/A - Med Ordered
[2025-03-08 20:31] VITALS: BP 164/74; PULSE 98; RESP 20; TEMP 36.9; O2SAT 94
[2025-03-08] MEDS: Lactated Ringers 1,000 ML 80 ML IVCONT (20:48)
[2025-03-08] MEDS: oxyCODONE HCl Immed Release 5 MG TABLET 10 MG PO (20:56)
--- NOTE | 2025-03-08 21:04 | PC.NURSE ---
Pt is upset due to being offered Oxycodone 5mg as per MAR for pain. Pt states she takes 20mg Q4H and is demanding a higher dose. States she will go home if she is unable to get a higher dose of Oxycodone. Pt reports abd pain and generalized body aches due to RA and fibromyalgia. Hospitalist made aware and at bedside. New orders placed in MAR and pt medicated as ordered.
[2025-03-08] MEDS: oxyCODONE HCl Immed Release 5 MG TABLET 20 MG PO (23:07)
[2025-03-09] VITALS (9 sets, daily range): BP systolic 114–184; BP diastolic 59–86; PULSE 61–83; RESP 12–18; TEMP 36.6–37; O2SAT 94–97; BMI 38.7; BMI 39.7; BMI 38.6
[2025-03-09] MEDS: oxyCODONE HCl Immed Release 5 MG TABLET 20 MG PO ×4 (03:18→22:26)
[2025-03-09 04:51] LABS: Hematocrit 35.0 % (37.0-47.0); Hemoglobin 11.2 g/dl (12.0-16.0); Mean Corpuscular HGB Conc 32.0 g/dl (31.0-35.0); Mean Corpuscular Hemoglobin 29.8 pg (27.0-33.0); Mean Corpuscular Volume 93.1 fL (80.0-98.0); NRBC Abs Auto 0.000 X10*3/uL (0.0-0.012); NRBC Pct Auto 0.0 /100WBC (0.0-0.2); Platelet Count 185 X10*3/uL (160-400); Red Blood Count 3.76 X10*6/uL (4.20-5.50); White Blood Count 9.0 X10*3/uL (4.8-10.8)
[2025-03-09 05:09] LABS: Alanine Aminotransferase 239 U/L (0-31); Albumin Level 3.1 g/dL (3.5-5.0); Alkaline Phosphatase 181 U/L (39-117); Anion Gap 14 (12-20); Aspartate Amino Transferase 233 U/L (5-31); Blood Urea Nitrogen 24 mg/dL (9-16); Calcium 8.4 mg/dL (8.4-10.2); Carbon Dioxide 26 mmol/L (22-29); Chloride 106 mmol/L (96-108); Creatinine Clr Calc Pharmacy 41.8; Estimated Glomerular Filt Rate 35; Potassium 4.8 mmol/L (3.3-5.1); Sodium 141 mmol/L (135-145); Total Protein 6.5 g/dL (6.5-8.0)
--- NOTE | 2025-03-09 07:55 | PC.NURSE ---
s/p Dilaudid while asleep sat down to 85%, placed on 2 lpm via nc to assist
--- NOTE | 2025-03-09 08:23 | PM.GICN ---
History of Present Illness Data of Consult Service Date: 03/09/25 Requesting physician: Iona Melendez Primary Care Provider: Namita Acosta NP HPI Reason for consult: transaminitis, CT neg, 75 YF with hypertension, lymphedema, UTI/ESBL, osteomyelitis, COPD on O2 at night only 2-3 L, hypothyroidism, CHF, RA, fibromyalgia, history of fall with nondisplaced right 7th and 8th rib fractures, depression, obesity, infrarenal aneurysm, L TKR was BIBA with 1 day hx of upper abdominal pain, nausea and vomiting. Pt reported she takes oxycodone regularly for rheumatoid arthritis, 20 mg every 4 hours but has not been able to keep down the pain medication since yesterday. Pt states her oxycodone is prescribed by her DEATH CLEARANCE COORDINATOR and pt does not follow with a pain claim benefit specialist. Pt complains of constant upper abd pain radiating to the back. Patient denies any chest pain, shortness of breath at rest. She reports improvement in abdoiminal pain and nausea and is looking forward to eating something. She complains of chills and denies fever or sweating Patient does deny any burning or pain with urination and frequency. UA found to be positive. Pt denies smoking or alcohol abuse. She reports being on Home oxygen at night for Rheumatoid Lungs Labs in the ED showed no leukocytosis and normal lactic acid. UA is positive for UTI. AST 373, ALT 199, alk-phos 210. Hepatic panel pendng. Lipase 21. Electrolytes stable. Blood glucose 110. Troponins initially normal currently 18.2. Incidentally patient has a known infrarenal aneurysm that has grown from 4.0 in October 2019 to 4.5 cm and per pt she is not following with a vascular provider. 06/2024 patient had a fall and was transferred to [facility] for possible liver laceration. Patient recalls being transferred but does not recall any interventions to include surgery. Patient was also found to have nondisplaced rib fractures and a possible BLADIMIR occlusion. Patient was not started on anticoagulation at that time. Review of Systems Review of Systems: Yes all other systems are reviewed and are negative Constitutional: Constitutional: Denies chills, Denies fever(s) and Denies poor appetite Cardiovascular: Cardiovascular: Denies chest pain at rest and Denies edema Respiratory: Respiratory: Denies cough Gastrointestinal: Gastrointestinal: Reports as per HPI, Reports abdominal pain, Reports nausea and Reports vomiting Musculoskeletal: Musculoskeletal: Reports back pain and Reports myalgias [facility] Past Medical History Medical History Hypertension Oxygen dependent Urinary tract infection due to extended-spectrum beta lactamase (ESBL) producing Escherichia coli Osteomyelitis COPD (chronic obstructive pulmonary disease) Hypothyroidism Congestive heart failure Fibromyalgia Depression Rheumatoid arthritis Family History Family History Father No problems noted. Other Heart disease Surgical History Surgical History Hx of prior ablation treatment Knee joint replacement status Social History Social History Household Members: None Household Members Other:: 0 Housing: Apartment Housing Other:: 1st floor Do you presently have visiting nurse or other home services: Yes ([employer] daily and VNA) Alcohol intake: never Comment: bedside commode Patient Tobacco Use Status: Former Tobacco user Tobacco use type: Cigarette e-Cigarette/Vaping Use: Never Used Second Hand Smoke Exposure: No Advance Directives: No Advance Directives Information Provided: No Advance Directives Date on File: 10/19/23 Nutrition Risks: No Nutritional Risk Patient : No service: No Travel History Ebola Risk: Travel/Contact With Anyone From Affected Area/s: No Has Patient Experienced Ebola Symptoms: No Meds Allergies Allergy/AdvReac Type Severity Reaction Status Date / Time lisinopril (LISINOPRIL) Allergy Severe ANAPHYLAXIS Verified 03/08/25 11:23 Sulfa (Sulfonamide Allergy Intermediate RASH Verified 03/08/25 11:23 Antibiotics) (SULFA (SULFONAMIDE ANTIBIOTICS)) tramadol (TRAMADOL) Allergy Intermediate RASH Verified 03/08/25 11:23 Owppelq-ZEC-KpP Reductase Allergy Rash Verified 03/08/25 11:23 Inhibitor (Ryeqqaz-Uri-Nec Reductase Inhibitor) hydrochlorothiazide (HCTZ) AdvReac Unknown ABNORMAL Verified 03/08/25 11:23 LABS? Active Medications: Current Medications Albuterol/Ipratropium (Albuterol/Iprat 2.5/0.5mg 3 Ml Ampul.Neb) 3 ml INHALE Q4H PRN PRN Reason: Shortness of Breath/Wheezing Bisacodyl (Bisacodyl 10 Mg Supp.Rect) 10 mg RI BEDTIME PRN PRN Reason: Constipation Calcium Carbonate (Calcium Carbonate 750 Mg Tab.Chew) 750 mg PO Q4H PRN PRN Reason: Heartburn Enoxaparin Sodium (Enoxaparin Sodium 40 Mg/0.4 Ml Syringe) 40 mg SUBCUT Q24H [facility] Last Admin: 03/09/25 07:52 Dose: 40 mg Furosemide (Furosemide 40 Mg Tablet) 40 mg PO DAILY [facility]; Protocol Last Admin: 03/09/25 07:52 Dose: 40 mg Hydromorphone HCl (Hydromorphone Hcl 1 Mg/Ml Syringe) 0.5 mg IVPUSH Q4H PRN; Protocol PRN Reason: Pain, Severe (Pain Scale 7-10) Last Admin: 03/09/25 07:44 Dose: 0.5 mg Lactated Ringer's (Lr) 1,000 mls @ 80 mls/hr IVCONT .[id number] [facility] Last Admin: 03/09/25 07:53 Dose: Not Given Piperacillin Sod/Tazobactam (Sod 3.375 gm/ Sodium Chloride) 50 mls @ 100 mls/hr IV Q6H [facility] Last Infusion: 03/09/25 03:58 Dose: Infused Ketorolac Tromethamine (Ketorolac Tromethamine 15 Mg/Ml Vial) 15 mg IVPUSH Q6H PRN PRN Reason: Pain, Moderate(Pain Scale 4-6) Stop: 03/10/25 19:50 Last Admin: 03/09/25 06:27 Dose: 15 mg Magnesium Hydroxide (Milk Of Magnesia 30 Ml Oral.Susp) 30 ml PO DAILY PRN PRN Reason: Constipation Melatonin (Melatonin 3 Mg Tablet) 6 mg PO BEDTIME PRN PRN Reason: Insomnia Last Admin: 03/08/25 23:08 Dose: 6 mg Omeprazole (Omeprazole 40 Mg Capsule.Dr) 40 mg PO DAILY@0630 [facility] Last Admin: 03/09/25 06:27 Dose: 40 mg Ondansetron HCl (Ondansetron Hcl 4 Mg/2 Ml Vial) 4 mg IVPUSH Q8H PRN PRN Reason: Nausea and Vomiting Oxycodone HCl (Oxycodone Hcl Immed Release 5 Mg Tablet) 20 mg PO Q4H PRN PRN Reason: Pain, Moderate(Pain Scale 4-6) Last Admin: 03/09/25 03:18 Dose: 20 mg Polyethylene Glycol (Polyethylene Glycol 3350 17 Gm Powd.Pack) 17 gm PO DAILY PRN PRN Reason: Constipation Pregabalin (Pregabalin 200 Mg Capsule) 200 mg PO BID [facility] Last Admin: 03/09/25 07:52 Dose: 200 mg Senna (Sennosides 8.6 Mg Tablet) 17.2 mg PO BEDTIME [facility] Last Admin: 03/08/25 20:57 Dose: 17.2 mg Sodium Chloride (0.9 % Sodium Chloride Flush 3 Ml Syringe) 3 ml IVFLUSH QSHIFT [facility] Last Admin: 03/09/25 07:36 Dose: Not Given Home Medications ?Medication ?Instructions ?Recorded ?Confirmed ?Last Taken ?Type methotrexate sodium 2.5 mg tablet 25 mg PO WE@0900 08/23/21 03/09/25 02/11/25 History omeprazole 40 mg capsule,delayed 40 mg PO DAILY@0630 08/23/21 03/09/25 02/17/25 History release prednisone 1 mg tablet 4 mg PO DAILY 08/23/21 03/09/25 02/17/25 History pregabalin 200 mg capsule 200 mg PO BID 01/07/23 03/09/25 02/17/25 History folic acid 1 mg tablet 2 mg PO DAILY 10/13/23 03/09/25 02/17/25 History acetaminophen 325 mg tablet 650 mg PO Q4H PRN Moderate Pain 03/04/24 03/09/25 Unknown History (Tylenol) (Scale Score 5-6) melatonin 10 mg tablet 10 mg PO BEDTIME PRN Sleep 05/03/24 03/09/25 Unknown History multivitamin 1 tab PO DAILY 05/03/24 03/09/25 02/17/25 History atenolol 25 mg tablet 50 mg PO DAILY 08/29/24 03/09/25 02/17/25 History furosemide 40 mg tablet 40 mg PO DAILY PRN Edema 10/07/24 03/09/25 02/17/25 History cholecalciferol (vitamin D3) 25 25 mcg PO DAILY 02/19/25 03/09/25 02/17/25 History mcg (1,000 unit) capsule doxazosin 2 mg tablet 2 mg PO BEDTIME 03/09/25 03/09/25 Unknown History magnesium oxide 400 mg PO DAILY 03/09/25 03/09/25 Unknown History thiamine HCl (vitamin B1) 50 mg 50 mg PO DAILY 03/09/25 03/09/25 Unknown History tablet Physical Exam Vital Signs: Vital Signs: Last Vital Signs Temp 97.8 F 03/09/25 03:14 Pulse 61 03/09/25 07:45 Resp 14 03/09/25 07:45 BP 114/65 03/09/25 07:52 Pulse Ox 95 03/09/25 07:45 O2 Del Method Room Air 03/09/25 07:45 BMI result Body Mass Index 38.7 Const: General: no acute distress and ill appearing chronically Nutritional Appearance: obese Orientation/consciousness: patient oriented x3 Limitations: no limitations HEENT: Head: Yes normal to inspection Ears: hearing grossly normal bilaterally Eyes: Sclerae: sclerae normal Pupils: Equal, round and reactive pupils present Neck: Neck: Yes normal visual inspection Chest: Chest palpation & inspection: normal inspection of the chest Resp: Effort & Inspection: normal respiratory effort Auscultation: clear to auscultation bilaterally Cardio: Palpation: normal PMI Rate: regular rate Rhythm: regular rhythm Heart sounds: S1 normal heart sound present, S2 normal heart sound present and no murmurs GI: Inspection: Yes obesity Palpation (GI): Soft to palpation, Tenderness to palpation present (GI) (Epigastric and RUQ tenderness) and No hepatosplenomegaly present Auscultation: normal bowel sounds Rectal Exam - Female: deferred Skin: General skin exam: no rashes or lesions noted Neuro: General: patient oriented x3, gait normal and moves all extremities Cranial nerves: Yes Equal, round and reactive pupils present Extrem: General: Yes pedal edema Psych: Appearance: grossly normal Mental Status: mental status grossly normal Results Labs 03/09/25 04:16 03/09/25 04:16 Labs: Short CBC 03/08/25 03/09/25 Range/Units 12:46 04:16 WBC 9.7 9.0 (4.8-10.8) X10*3/uL Hgb 13.8 11.2 L (12.0-16.0) g/dl Hct 42.1 35.0 L (37.0-47.0) % Plt Count 198 D 185 (160-400) X10*3/uL BMP 03/08/25 03/09/25 12:46 04:16 Sodium 142 141 Potassium 4.7 D 4.8 Chloride 107 106 Carbon Dioxide 24 26 BUN 17 H 24 H Creatinine 1.05 1.45 H Calcium 9.3 8.4 D Liver Function 03/08/25 03/09/25 Range/Units 12:46 04:16 Total Bilirubin 1.0 2.5 H (0.0-1.0) mg/dL Direct Bilirubin 0.6 H (0.0-0.5) mg/dL AST 373 H 233 H (5-31) U/L ALT 199 H 239 H (0-31) U/L Alkaline Phosphatase 210 H 181 H (39-117) U/L Albumin 3.8 3.1 L (3.5-5.0) g/dL Urine 03/08/25 Range/Units 12:04 Urine Color Yellow Urine Appearance Cloudy Urine pH 8.5 (5.0-9.0) Ur Specific [place] 1.010 (1.005-1.025) Urine Protein Trace (Neg-Trace) mg/dL Urine Glucose (UA) Negative (Negative) mg/dL Assessment and Plan (1) Cholelithiasis: Qualifiers: Cholelithiasis location: gallbladder Cholecystitis presence: with cholecystitis Cholecystitis acuity: acute Biliary obstruction: with biliary obstruction Qualified Code(s): K80.01 - Calculus of gallbladder with acute cholecystitis with obstruction Status: Acute (2) Elevated LFTs: Status: Acute Plan 75 YF with hypertension, lymphedema, UTI/ESBL, osteomyelitis, COPD on O2 at night only 2-3 L, hypothyroidism, CHF, RA, fibromyalgia, history of fall with nondisplaced right 7th and 8th rib fractures, depression, obesity, infrarenal aneurysm, L TKR was BIBA with 1 day hx of upper abdominal pain, nausea and vomiting. Labs in the ED showed no leukocytosis and normal lactic acid. AST 373, ALT 199, alk-phos 210. Lipase 21. Repeat LFTs today show an increase in TB to 2.5, decrease in AST and AP and increase in ALT ABD CT was negative, Abd US showed Cholelithiasis with gallbladder wall thickening and equivocal trace pericholecystic fluid, findings concerning for cholecystitis and CBD 5 mm. RECOMMENDATIONS: 1. Agree with IV antibiotics, antiemetics and pain medications 2. Check hepatitis serologies and MRCP 3. If MRCP is negative for CBD stone and hepatitis serologies are negative, pt can proceed with [facility] If MRCP shows CBD stone, pt will need an ERCP prior to [facility] Procedures Date of Service Date of Service: 03/09/25
--- NOTE | 2025-03-09 08:57 | PHA.MEDREC ---
Pharmacy Consult ? Medication Reconciliation Pharmacy has completed the medication reconciliation. Patient reluctant to name medications on her own, stated some but then confirmed via claim history. Noted she was taking lasix daily but stopped bc her leg swelling had gone down.
--- NOTE | 2025-03-09 09:24 | PM.CNGS ---
History of Present Illness Consult details Consult date: 03/09/25 Reason for consult: abdominal pain Requesting physician: Brendan Eaton Narrative: 75-year-old female patient presenting with complaints of nausea and vomiting followed by the onset of upper abdominal pain mainly in the right upper quadrant radiating into the back. The pain did not seem to be associated with her diet and she denies a previous history of similar problems. She does have an extensive past medical history including hypertension, COPD, rheumatoid arthritis, hypothyroidism, congestive heart failure, fibromyalgia and infrarenal aortic aneurysm. She denied a history of fatty food intolerance, fever, chills, diarrhea or constipation. In the emergency department she was noted to have diffuse tenderness throughout the abdomen without peritoneal side. Laboratories revealed normal WBC, potassium of 4.7, BUN 17, total bilirubin of 1.0, direct bilirubin 0.6, AST 373 ALT 199, alkaline phosphatase 210, lipase 21. CT abdomen and pelvis revealed an unremarkable gallbladder and liver. A bilobed infrarenal abdominal aortic aneurysm measuring 4.5 cm was identified without evidence of leak. Abdominal ultrasound revealed cholelithiasis with gallbladder wall thickening and equivocal trace pericholecystic fluid concerning for cholecystitis. Surgical consultation was requested for further management of the cholelithiasis. Review of Systems Review of Systems: Yes all other systems are reviewed and are negative Constitutional: Constitutional: Denies chills, Denies fever(s) and Denies poor appetite Cardiovascular: Cardiovascular: Denies chest pain at rest and Denies edema Respiratory: Respiratory: Denies cough Gastrointestinal: Gastrointestinal: Reports as per HPI, Reports abdominal pain, Reports nausea and Reports vomiting Musculoskeletal: Musculoskeletal: Reports back pain and Reports myalgias [facility] Past Medical History Medical History Hypertension Oxygen dependent Urinary tract infection due to extended-spectrum beta lactamase (ESBL) producing Escherichia coli Osteomyelitis COPD (chronic obstructive pulmonary disease) Hypothyroidism Congestive heart failure Fibromyalgia Depression Rheumatoid arthritis Family History Family History Father No problems noted. Other Heart disease Surgical History Surgical History Hx of prior ablation treatment Knee joint replacement status Social History Social History (Reviewed 03/08/25 @ 19:44 by LYRIC JimenezLAUREL OAKS BEHAVIORAL HEALTH CENTERShubham Household Members: None Household Members Other:: 0 Housing: Apartment Housing Other:: 1st floor Do you presently have visiting nurse or other home services: Yes ([employer] daily and VNA) Alcohol intake: never Comment: bedside commode Patient Tobacco Use Status: Former Tobacco user Tobacco use type: Cigarette e-Cigarette/Vaping Use: Never Used Second Hand Smoke Exposure: No Advance Directives: No Advance Directives Information Provided: No Advance Directives Date on File: 10/19/23 Nutrition Risks: No Nutritional Risk Patient : No service: No Travel History Ebola Risk: Travel/Contact With Anyone From Affected Area/s: No Has Patient Experienced Ebola Symptoms: No Meds Allergies Allergy/AdvReac Type Severity Reaction Status Date / Time lisinopril (LISINOPRIL) Allergy Severe ANAPHYLAXIS Verified 03/08/25 11:23 Sulfa (Sulfonamide Allergy Intermediate RASH Verified 03/08/25 11:23 Antibiotics) (SULFA (SULFONAMIDE ANTIBIOTICS)) tramadol (TRAMADOL) Allergy Intermediate RASH Verified 03/08/25 11:23 Vbkallc-SOY-NzC Reductase Allergy Rash Verified 03/08/25 11:23 Inhibitor (Yiwceax-Dnf-Ims Reductase Inhibitor) hydrochlorothiazide (HCTZ) AdvReac Unknown ABNORMAL Verified 03/08/25 11:23 LABS? Active Medications: Current Medications Albuterol/Ipratropium (Albuterol/Iprat 2.5/0.5mg 3 Ml Ampul.Neb) 3 ml INHALE Q4H PRN PRN Reason: Shortness of Breath/Wheezing Bisacodyl (Bisacodyl 10 Mg Supp.Rect) 10 mg NC BEDTIME PRN PRN Reason: Constipation Calcium Carbonate (Calcium Carbonate 750 Mg Tab.Chew) 750 mg PO Q4H PRN PRN Reason: Heartburn Enoxaparin Sodium (Enoxaparin Sodium 40 Mg/0.4 Ml Syringe) 40 mg SUBCUT Q24H EUGENIO Last Admin: 03/09/25 07:52 Dose: 40 mg Furosemide (Furosemide 40 Mg Tablet) 40 mg PO DAILY EUGENIO; Protocol Last Admin: 03/09/25 07:52 Dose: 40 mg Hydromorphone HCl (Hydromorphone Hcl 1 Mg/Ml Syringe) 0.5 mg IVPUSH Q4H PRN; Protocol PRN Reason: Pain, Severe (Pain Scale 7-10) Last Admin: 03/09/25 07:44 Dose: 0.5 mg Lactated Ringer's (Lr) 1,000 mls @ 80 mls/hr IVCONT .[id number] [facility] Last Admin: 03/09/25 07:53 Dose: Not Given Piperacillin Sod/Tazobactam (Sod 3.375 gm/ Sodium Chloride) 50 mls @ 100 mls/hr IV Q6H [facility] Last Infusion: 03/09/25 03:58 Dose: Infused Ketorolac Tromethamine (Ketorolac Tromethamine 15 Mg/Ml Vial) 15 mg IVPUSH Q6H PRN PRN Reason: Pain, Moderate(Pain Scale 4-6) Stop: 03/10/25 19:50 Last Admin: 03/09/25 06:27 Dose: 15 mg Magnesium Hydroxide (Milk Of Magnesia 30 Ml Oral.Susp) 30 ml PO DAILY PRN PRN Reason: Constipation Melatonin (Melatonin 3 Mg Tablet) 6 mg PO BEDTIME PRN PRN Reason: Insomnia Last Admin: 03/08/25 23:08 Dose: 6 mg Omeprazole (Omeprazole 40 Mg Capsule.Dr) 40 mg PO DAILY@0630 [facility] Last Admin: 03/09/25 06:27 Dose: 40 mg Ondansetron HCl (Ondansetron Hcl 4 Mg/2 Ml Vial) 4 mg IVPUSH Q8H PRN PRN Reason: Nausea and Vomiting Oxycodone HCl (Oxycodone Hcl Immed Release 5 Mg Tablet) 20 mg PO Q4H PRN PRN Reason: Pain, Moderate(Pain Scale 4-6) Last Admin: 03/09/25 03:18 Dose: 20 mg Polyethylene Glycol (Polyethylene Glycol 3350 17 Gm Powd.Pack) 17 gm PO DAILY PRN PRN Reason: Constipation Pregabalin (Pregabalin 200 Mg Capsule) 200 mg PO BID [facility] Last Admin: 03/09/25 07:52 Dose: 200 mg Senna (Sennosides 8.6 Mg Tablet) 17.2 mg PO BEDTIME [facility] Last Admin: 03/08/25 20:57 Dose: 17.2 mg Sodium Chloride (0.9 % Sodium Chloride Flush 3 Ml Syringe) 3 ml IVFLUSH QSHIFT [facility] Last Admin: 03/09/25 07:36 Dose: Not Given Home Medications ?Medication ?Instructions ?Recorded ?Confirmed ?Last Taken ?Type methotrexate sodium 2.5 mg tablet 25 mg PO WE@0900 08/23/21 03/09/25 02/11/25 History omeprazole 40 mg capsule,delayed 40 mg PO DAILY@0630 08/23/21 03/09/25 02/17/25 History release prednisone 1 mg tablet 4 mg PO DAILY 08/23/21 03/09/25 02/17/25 History pregabalin 200 mg capsule 200 mg PO BID 01/07/23 03/09/25 02/17/25 History folic acid 1 mg tablet 2 mg PO DAILY 10/13/23 03/09/25 02/17/25 History acetaminophen 325 mg tablet 650 mg PO Q4H PRN Moderate Pain 03/04/24 03/09/25 Unknown History (Tylenol) (Scale Score 5-6) melatonin 10 mg tablet 10 mg PO BEDTIME PRN Sleep 05/03/24 03/09/25 Unknown History multivitamin 1 tab PO DAILY 05/03/24 03/09/25 02/17/25 History atenolol 25 mg tablet 50 mg PO DAILY 08/29/24 03/09/25 02/17/25 History furosemide 40 mg tablet 40 mg PO DAILY PRN Edema 10/07/24 03/09/25 02/17/25 History cholecalciferol (vitamin D3) 25 25 mcg PO DAILY 02/19/25 03/09/25 02/17/25 History mcg (1,000 unit) capsule doxazosin 2 mg tablet 2 mg PO BEDTIME 03/09/25 03/09/25 Unknown History magnesium oxide 400 mg PO DAILY 03/09/25 03/09/25 Unknown History thiamine HCl (vitamin B1) 50 mg 50 mg PO DAILY 03/09/25 03/09/25 Unknown History tablet Physical Exam Vital Signs: Vital Signs: Last Vital Signs Temp 97.8 F 03/09/25 03:14 Pulse 61 03/09/25 07:45 Resp 14 03/09/25 07:45 BP 114/65 03/09/25 07:52 Pulse Ox 95 03/09/25 07:45 O2 Del Method Room Air 03/09/25 07:45 BMI result Body Mass Index 38.7 Const: General: cooperative and no acute distress Nutritional Appearance: well nourished Orientation/consciousness: patient oriented x3 Limitations: wheelchair HEENT: Head: Yes normocephalic and Yes atraumatic Ears: hearing grossly normal bilaterally Eyes: Sclerae: sclerae normal Resp: Effort & Inspection: normal respiratory effort, no audible wheezes, no cough and no respiratory distress Cardio: Jugular venous distension: no JVD GI: Inspection: Yes normal to inspection and Yes obesity Palpation (GI): Soft to palpation, nontender, no guarding, not rigid, No hepatosplenomegaly present, no masses and No Rebound tenderness present Percussion: Yes normal to percussion Auscultation: normal bowel sounds Rectal Exam - Female: deferred Skin: Other: Warm, dry, no rash Neuro: General: patient oriented x3 Extrem: General: Yes no clubbing, cyanosis or edema Results Labs 03/09/25 04:16 03/09/25 04:16 Labs: Abnormal lab results 03/08/25 03/08/25 03/08/25 Range/Units 12:04 12:46 18:03 RBC (4.20-5.50) X10*6/uL Hgb (12.0-16.0) g/dl Hct (37.0-47.0) % Immature Gran % (Auto) 0.9 H (0.0-0.4) % Neut % (Auto) 83.9 H (45-73) % Lymph % (Auto) 11.6 L (20-40) % Lymph # (Auto) 1.1 L (1.2-4.9) X10*3/uL Abs Immat Gran (auto) 0.09 H (0.00-0.03) X10*3/uL BUN 17 H (9-16) mg/dL Creatinine (0.5-1.4) mg/dL Total Bilirubin (0.0-1.0) mg/dL Direct Bilirubin 0.6 H (0.0-0.5) mg/dL AST 373 H (5-31) U/L ALT 199 H (0-31) U/L Alkaline Phosphatase 210 H (39-117) U/L Troponin I High Sens 18.2 H (<3.5-17.0) ng/L NT-Pro-B Natriuret Pep 2531.0 H (<300) pg/mL Albumin (3.5-5.0) g/dL Urine Blood Trace H (Negative) Urine Nitrite Positive H (Negative) Ur Leukocyte Esterase Large (3+) H (Negative) Urine WBC >50 H (0-5) /HPF 03/09/25 Range/Units 04:16 RBC 3.76 L (4.20-5.50) X10*6/uL Hgb 11.2 L (12.0-16.0) g/dl Hct 35.0 L (37.0-47.0) % Immature Gran % (Auto) (0.0-0.4) % Neut % (Auto) (45-73) % Lymph % (Auto) (20-40) % Lymph # (Auto) (1.2-4.9) X10*3/uL Abs Immat Gran (auto) (0.00-0.03) X10*3/uL BUN 24 H (9-16) mg/dL Creatinine 1.45 H (0.5-1.4) mg/dL Total Bilirubin 2.5 H (0.0-1.0) mg/dL Direct Bilirubin (0.0-0.5) mg/dL AST 233 H (5-31) U/L ALT 239 H (0-31) U/L Alkaline Phosphatase 181 H (39-117) U/L Troponin I High Sens (<3.5-17.0) ng/L NT-Pro-B Natriuret Pep (<300) pg/mL Albumin 3.1 L (3.5-5.0) g/dL Urine Blood (Negative) Urine Nitrite (Negative) Ur Leukocyte Esterase (Negative) Urine WBC (0-5) /HPF Short CBC 03/08/25 03/09/25 Range/Units 12:46 04:16 WBC 9.7 9.0 (4.8-10.8) X10*3/uL Hgb 13.8 11.2 L (12.0-16.0) g/dl Hct 42.1 35.0 L (37.0-47.0) % Plt Count 198 D 185 (160-400) X10*3/uL BMP 03/08/25 03/09/25 12:46 04:16 Sodium 142 141 Potassium 4.7 D 4.8 Chloride 107 106 Carbon Dioxide 24 26 BUN 17 H 24 H Creatinine 1.05 1.45 H Calcium 9.3 8.4 D Liver Function 03/08/25 03/09/25 Range/Units 12:46 04:16 Total Bilirubin 1.0 2.5 H (0.0-1.0) mg/dL Direct Bilirubin 0.6 H (0.0-0.5) mg/dL AST 373 H 233 H (5-31) U/L ALT 199 H 239 H (0-31) U/L Alkaline Phosphatase 210 H 181 H (39-117) U/L Albumin 3.8 3.1 L (3.5-5.0) g/dL Urine 03/08/25 Range/Units 12:04 Urine Color Yellow Urine Appearance Cloudy Urine pH 8.5 (5.0-9.0) Ur Specific [place] 1.010 (1.005-1.025) Urine Protein Trace (Neg-Trace) mg/dL Urine Glucose (UA) Negative (Negative) mg/dL All other labs normal. Assessment and Plan (1) Transaminitis: Status: Acute (2) Cholelithiasis: Qualifiers: Cholelithiasis location: gallbladder Cholecystitis presence: with cholecystitis Cholecystitis acuity: acute Biliary obstruction: with biliary obstruction Qualified Code(s): K80.01 - Calculus of gallbladder with acute cholecystitis with obstruction Status: Acute Plan 75-year-old female patient with a recent history of nausea and vomiting and subsequent abdominal pain in the epigastrium right upper quadrant, found on initial workup to have elevated LFTs. Workup revealed gallstones within the gallbladder by ultrasound with possible wall thickening and pericholecystic fluid. Repeat LFTs revealed increase in the bilirubin levels suggestive of choledocholithiasis as well. The patient is very concerned about undergoing surgery because she feels she is immunocompromised because of her arthritis. She is also concerned that the elevated liver functions could be due to her medications (methotrexate). I would recommend MRCP and gastroenterology consultation due to the elevated bilirubin level. If workup confirmed acute cholecystitis/choledocholithiasis, cholecystectomy would be warranted. We will follow along during her hospitalization. Total time managing care of this patient today: 60 minutes. Procedures Date of Service Date of Service: 03/09/25
--- NOTE | 2025-03-09 09:50 | MHC.CM.PN ---
IMM 03/09/25, Pt. lives alone, she has daily [employer] services, 2 hrs per day. She has had [facility] services, incl. PT in the recent past, following a hosp. stay. She is non ambulatory, can stand and pivot, she uses an electric w/c. PCP confirmed: Namita Acosta NP. HCP on file and confirmed: Yuliana. Transportation home by BLS. DCP: home with services, CM to follow for DC needs.
--- NOTE | 2025-03-09 11:45 | PC.NURSE ---
Addendum entered by Zarina Sanchez RN 03/09/25 12:13: Dr. Ernandez called t/w via [employer] to speak w/ patient via phone. informed patient again she needs to be NPO for testing & has no control when testing will occur. Pt verbalized understanding. Addendum entered by Zarina Sanchez RN 03/09/25 11:49: Informed pt provider stated pt still is NPO. Patient does not believe that t/w spoke w/ the doctor, requesting to speak w/ Dr herself. Dr. Ernandez made aware Original Note: Pt crying in bed because she is starving , is currently NPO. Pt states the doctor told her she could eat. Confirmed w/ Dr. Eaton pt IS STILL NPO.
--- NOTE | 2025-03-09 12:14 | PC.NURSE ---
MRI screening form completed by t/w. Sent via [employer] to [facility] and faxed to MRI. Pt changed into [facility]
--- NOTE | 2025-03-09 14:23 | P.PNIM_ITS ---
Subjective Subjective Date of Service: 03/09/25 Interval History: Expresses frustration with her analgesia and with NPO status pending MRCP Discussed in depth with the patient regarding the need for MRCP, with possible intervention by Gastroenterology or General surgery depending on findings. This morning, the patient reports feeling well, some epigastric right upper quadrant pain Review of Systems Review of Systems: Yes all other systems are reviewed and are negative Physical Exam 2 Exam: Exam: General: A&O x3, oriented to time place person and situation, comfortable, no pain Cardiac: S1, S2 auscultated with no S3/4, no MRG. Well perfused. Respiratory: Normal breath sounds auscultated throughout all lung zones, without wheezing, rales. Normal rate. GI/ : Epigastric tenderness and right upper quadrant tenderness on deep palpation, generalized abdominal distention noted. No hepatosplenomegaly noted. Normal bowel sounds, no kidney ballottement. No jaundice or scleral icterus MSK: Normal ambulation without pain at bony prominences or musculature Neurological: Normal neurological examination on overview, without obvious CN II-XII abnormalities. Vital Signs: Vital Signs: Last Vital Signs Temp 98.2 F 03/09/25 12:00 Pulse 67 03/09/25 12:00 Resp 16 03/09/25 12:00 BP 141/67 H 03/09/25 12:00 Pulse Ox 96 03/09/25 12:00 O2 Del Method Room Air 03/09/25 12:00 BMI result Body Mass Index 38.7 Objective Data Active Medications Albuterol/Ipratropium (Albuterol/Iprat 2.5/0.5mg 3 Ml Ampul.Neb) 3 ml INHALE Q4H PRN PRN Reason: Shortness of Breath/Wheezing Bisacodyl (Bisacodyl 10 Mg Supp.Rect) 10 mg MO BEDTIME PRN PRN Reason: Constipation Calcium Carbonate (Calcium Carbonate 750 Mg Tab.Chew) 750 mg PO Q4H PRN PRN Reason: Heartburn Enoxaparin Sodium (Enoxaparin Sodium 40 Mg/0.4 Ml Syringe) 40 mg SUBCUT Q24H EUGENIO Last Admin: 03/09/25 07:52 Dose: 40 mg Documented By: DEISI Furosemide (Furosemide 40 Mg Tablet) 40 mg PO DAILY EUGENIO; Protocol Last Admin: 03/09/25 07:52 Dose: 40 mg Documented By: DEISI Hydromorphone HCl (Hydromorphone Hcl 1 Mg/Ml Syringe) 0.5 mg IVPUSH Q4H PRN; Protocol PRN Reason: Pain, Severe (Pain Scale 7-10) Last Admin: 03/09/25 07:44 Dose: 0.5 mg Documented By: DEISI Lactated Ringer's (Lr) 1,000 mls @ 80 mls/hr IVCONT .[id number] [facility] Last Admin: 03/09/25 07:53 Dose: Not Given Documented By: DEISI Non-Admin Reason: see comment Piperacillin Sod/Tazobactam (Sod 3.375 gm/ Sodium Chloride) 50 mls @ 100 mls/hr IV Q6H [facility] Last Infusion: 03/09/25 11:32 Dose: Infused Documented By: KOSTAS Ketorolac Tromethamine (Ketorolac Tromethamine 15 Mg/Ml Vial) 15 mg IVPUSH Q6H PRN PRN Reason: Pain, Moderate(Pain Scale 4-6) Stop: 03/10/25 19:50 Last Admin: 03/09/25 06:27 Dose: 15 mg Documented By: SARA Magnesium Hydroxide (Milk Of Magnesia 30 Ml Oral.Susp) 30 ml PO DAILY PRN PRN Reason: Constipation Melatonin (Melatonin 3 Mg Tablet) 6 mg PO BEDTIME PRN PRN Reason: Insomnia Last Admin: 03/08/25 23:08 Dose: 6 mg Documented By: SARA Omeprazole (Omeprazole 40 Mg Capsule.Dr) 40 mg PO DAILY@0630 [facility] Last Admin: 03/09/25 06:27 Dose: 40 mg Documented By: SARA Ondansetron HCl (Ondansetron Hcl 4 Mg/2 Ml Vial) 4 mg IVPUSH Q8H PRN PRN Reason: Nausea and Vomiting Oxycodone HCl (Oxycodone Hcl Immed Release 5 Mg Tablet) 20 mg PO Q4H PRN PRN Reason: Pain, Moderate(Pain Scale 4-6) Last Admin: 03/09/25 12:04 Dose: 20 mg Documented By: KOSTAS Polyethylene Glycol (Polyethylene Glycol 3350 17 Gm Powd.Pack) 17 gm PO DAILY PRN PRN Reason: Constipation Pregabalin (Pregabalin 200 Mg Capsule) 200 mg PO BID [facility] Last Admin: 03/09/25 07:52 Dose: 200 mg Documented By: DEISI Senna (Sennosides 8.6 Mg Tablet) 17.2 mg PO BEDTIME [facility] Last Admin: 03/08/25 20:57 Dose: 17.2 mg Documented By: SARA Sodium Chloride (0.9 % Sodium Chloride Flush 3 Ml Syringe) 3 ml IVFLUSH QSHIFT [facility] Last Admin: 03/09/25 07:36 Dose: Not Given Documented By: DEISI Non-Admin Reason: IV Running Labs 03/09/25 04:16 03/09/25 04:16 Labs: Laboratory Results - last 24 hr 03/08/25 03/08/25 03/08/25 12:46 15:40 18:03 MCV MCH MCHC RDW Plt Count MPV Absolute Nucleated RBC Nucleated RBC % (auto) Anion Gap Estim Creat Clear Calc Estimated GFR Random Glucose Calcium Total Bilirubin AST ALT Alkaline Phosphatase Troponin I High Sens 13.3 D 18.2 H NT-Pro-B Natriuret Pep 2531.0 H Total Protein Albumin TSH 0.42 Influenza Type A (PCR) NEGATIVE Influenza Type B (PCR) NEGATIVE RSV RNA Qual (PCR) NEGATIVE SARS-CoV-2 RNA (RT-PCR) NEGATIVE 03/09/25 04:16 MCV 93.1 MCH 29.8 MCHC 32.0 RDW 15.4 Plt Count 185 MPV 10.8 Absolute Nucleated RBC 0.000 Nucleated RBC % (auto) 0.0 Anion Gap 14 Estim Creat Clear Calc 41.8 Estimated GFR 35 Random Glucose 92 Calcium 8.4 D Total Bilirubin 2.5 H AST 233 H ALT 239 H Alkaline Phosphatase 181 H Troponin I High Sens NT-Pro-B Natriuret Pep Total Protein 6.5 Albumin 3.1 L TSH Influenza Type A (PCR) Influenza Type B (PCR) RSV RNA Qual (PCR) SARS-CoV-2 RNA (RT-PCR) Microbiology Microbiology Results: Microbiology 03/08/25 Unknown Urine Culture - Preliminary Urine clean catch - Clean Catch Midstream Gram negative altaf Assessment and Plan (1) Peripheral artery disease: Status: Acute (2) Transaminitis: Status: Acute (3) Cholelithiasis: Status: Acute (4) Acute cystitis: Status: Acute (5) Lower extremity weakness: Status: Acute (6) Infrarenal abdominal aortic aneurysm (AAA) without rupture: Status: Acute Plan 75-year-old female with a complex history including hypertension, CHF (HFpEF), COPD (on nocturnal O2), ESBL UTI, RA on chronic opioids, hypothyroidism, obesity, infrarenal AAA, and left TKR, admitted for acute RUQ/epigastric pain, nausea/vomiting, and inability to tolerate oral medications, found to have acute cystitis (ESBL), transaminitis with imaging concerning for cholecystitis, and a growing infrarenal AAA, now stable on the medical floor. Acute Cystitis (ESBL, no sepsis) Course:?Presented with dysuria, urinary retention, and positive UA (nitrites, leuk esterase, >50 WBC, 4+ bacteria). CT: gas in bladder. History of ESBL E. coli. No leukocytosis or lactic acidosis. Started on ertapenem in ED; ID consulted. Plan: * Continue IV ertapenem; adjust per culture/sensitivities. * Monitor for clinical response (fever, dysuria, urine output). * Periwick and bladder scan q shift to monitor retention. * Maintain conservative IV fluids (CHF history). * Monitor renal function and electrolytes. * Infectious Disease to follow. Transaminitis / Suspected Acute Cholecystitis Course:?AST 373, ALT 199, Alk Phos 210, TBili 1.0. RUQ US: cholelithiasis, GB wall thickening, equivocal pericholecystic fluid (concern for cholecystitis). CT: no acute hepatic findings. GI and General Surgery consulted. Hepatitis panel pending. No evidence of CBD dilation or obstruction. Plan: * NPO if worsening pain or per surgical/GI recommendation. * MRCP ordered * Continue IV Zosyn (added for biliary coverage) until further guidance. * Avoid hepatotoxic medications (acetaminophen, statins). * Serial LFTs, monitor for clinical deterioration. * Await hepatitis panel. * Surgical evaluation for possible cholecystectomy if clinical course worsens. Infrarenal Abdominal Aortic Aneurysm (AAA) ? 4.5 cm, stable, no rupture Course:?Known AAA, increased from 4.0 cm (10/2024) to 4.5 cm. No leak on CT. No vascular follow-up. BP controlled, renal function stable. Vascular surgery consulted. Plan: * Vascular surgery to evaluate for outpatient surveillance vs. intervention. * Strict BP control (goal <130/80). * Avoid heavy lifting/straining. * Monitor for abdominal/back pain, hypotension. * Outpatient vascular surgery follow-up to be arranged. Immobility / S/P Left TKR / Chronic Pain / Fall Risk Course:?Wheelchair-bound, unable to ambulate, left knee swelling, chronic pain on high-dose oxycodone, history of stable medial femoral condyle fracture, negative for acute DVT (venous duplex negative), negative for new fracture (x- ray). Plan * PT/OT evaluation for mobility and safe transfer. * Strict fall precautions, bed/chair alarms. * Continue bowel regimen. * Pain management: continue home regimen, consider opioid weaning plan, consult pain management outpatient. * Case management to ensure safe discharge plan (home services, equipment) Heart Failure with Preserved Ejection Fraction (HFpEF) Course:?History of CHF, BNP 2531, no acute decompensation, on furosemide, fluid restriction, daily weights, last echo (04/2024) with?intra-atrial shunt. Plan: * Continue furosemide 40 mg daily. * Fluid restriction 1.5 L/day. * Daily weights, strict I/Os. * Low-sodium diet. * Repeat echo ordered. COPD (on nocturnal O2) Course:?No acute exacerbation, uses 2-3L O2 at night, no RUDY, no current respiratory distress. Plan: * Continue home O2 at night. * PRN duonebs. * Monitor for hypoxia, respiratory distress. * Avoid sedating medications. Hypertension Course:?BP controlled on atenolol, history of severe hypertension on ED arrival (improved after pain control). Plan: * Continue atenolol, monitor BP. * Hold for SBP <90 or HR <60. * Low-sodium diet. Hypothyroidism Course:?Stable, TSH WNL, on levothyroxine. Plan: Continue levothyroxine 50 mcg daily. Chronic Pain / RA / Fibromyalgia Course:?On chronic oxycodone, methotrexate, prednisone, pregabalin. Admits to opioid dependence. No acute joint swelling. Plan: * Continue home pain regimen. * Bowel regimen. * Encourage outpatient pain management referral. * Monitor for opioid withdrawal. Depression Course:?On bupropion, mood stable. Plan: * Continue bupropion. * Monitor for mood changes. Obesity (BMI 44.3) Course:?Contributes to immobility, RUDY risk. Plan: * Encourage weight management counseling as outpatient. Lymphedema / Left Leg Edema Course:?Chronic, no DVT, no cellulitis. Plan: * Elevate leg, compression as tolerated. * Monitor for skin breakdown. GERD Course:?On omeprazole. Plan: * Continue omeprazole. Osteomyelitis (remote) Course:?No current evidence of active infection. Plan: * Monitor for signs of recurrence. [employer] * VTE Prophylaxis: Enoxaparin 40 mg OD SQ * Code Status: Full code * Diet: Low sodium, regular as tolerated Total time managing care of this patient today: 45 minutes. Quality Stroke Does the patient have a stroke diagnosis?: No Reason for No Anti-thrombotic by Day Two: N/A - Med Ordered VTE Prior VTE?: No VTE Risk Level:: Medical - moderate - high VTE Device Contraindication: N/A - Device Ordered VTE Drug Contraindication: N/A - Med Ordered
--- NOTE | 2025-03-09 14:39 | HO.NURTONUR ---
Pt presents to ED 03/08 w/ c/o severe abd pain w/ N/V x days. PMH: ESBL UTI, PID, COPD, hypertension, fibromyalgia, depression, CHF, and RA, AAA. Imaging: US showing: Cholelithiasis with gallbladder wall thickening and equivocal trace pericholecystic fluid, findings concerning for cholecystitis, CT scan neg for any acute findings. LFTs elevated UA +, on abx, ID consulted. LR @ 80/hr. Surgery consult: Pt declined surgical intervention, will follow. GI consult: MRCP ordered, has yet to be completed. Plan will be adjusted based on findings. AAA stable, increased from 4 to 4.5 cm. Vascular surgery consult to evaluate for outpatient surveillance vs. intervention Pt alert and oriented, can be demanding and manipulative. Has been on 20 oxy Q4 for a long time, will demand it around the clock. 1A stand / pivot to commode, unwilling/able to do more d/t knee pain from chronic pain s/p knee replacement 2011. PT/OT/CM consult placed Intermittently very upset that she continues to be NPO. Nocturnal 2L O2 for COPD.
[2025-03-09] MEDS: 0.9 % Sodium Chloride Flush 3 ML SYRINGE IVFLUSH (16:37)
[2025-03-10] VITALS (9 sets, daily range): BP systolic 121–173; BP diastolic 60–81; PULSE 67–74; RESP 16–18; TEMP 36.4–36.9; O2SAT 92–99
[2025-03-10] MEDS: 0.9 % Sodium Chloride Flush 3 ML SYRINGE IVFLUSH ×4 (00:06→22:00)
[2025-03-10] MEDS: oxyCODONE HCl Immed Release 5 MG TABLET 20 MG PO ×6 (03:23→22:40)
--- NOTE | 2025-03-10 07:00 | CA_ITS ---
Transthoracic Echocardiogram Patient (Last, First, Middle): Alexandrea Renee, Gender: Female Date of : 1950 Age: 75 Procedure Date: 03/10/2025 Procedure Type: Transthoracic Echocardiogram Location: [facility] [place] Height: 160. cm Weight: 98.89 kg BSA: 2.01 m2 Heart Rate: 70 bpm BP: 131 / 61 mmHg [employer] Laboratory Chief: DYLAN Referring MD: Iona Al [employer] Symptoms: elevated BNP ? intratrial shunt Study Quality: Adequate ECG Rhythm: Sinus Conclusions: - Normal left ventricular cavity size. There is moderately increased left ventricular wall thickness. The left ventricular systolic function is hyperdynamic. The visually estimated ejection fraction is >70%. - E/E prime ratio is between 8 and 15 consistent with indeterminate filling pressures. - There is severe septal asymmetric hypertrophy. - Mildly increased right ventricular cavity size. There is normal right ventricular systolic function. - Interatrial shunt cannot be excluded by color Doppler. Findings Left Ventricle Normal left ventricular cavity size. There is moderately increased left ventricular wall thickness. The left ventricular systolic function is hyperdynamic. The visually estimated ejection fraction is >70%. Abnormal diastolic function is noted. Spectral Doppler is indicative of an impaired relaxation filling pattern. E/E prime ratio is between 8 and 15 consistent with indeterminate filling pressures. There is severe septal asymmetric hypertrophy. Right Ventricle Mildly increased right ventricular cavity size. There is normal right ventricular systolic function. Atria The left atrium is normal in size. Interatrial shunt cannot be excluded by color Doppler. The right atrium is normal in size. Aortic Valve There is a normal trileaflet aortic valve. There is mild calcification of the aortic valve. There is no aortic valve stenosis. There is no aortic valve regurgitation. Mitral Valve The mitral valve appears normal. There is no mitral valve regurgitation. There is no mitral valve stenosis. Pulmonic Valve The pulmonic valve is likely normal. Tricuspid Valve Normal tricuspid valve structure. There is trace tricuspid valve regurgitation. Normal right atrial pressure. There is no evidence of pulmonary hypertension. Great Vessels All visible segments of the aorta are normal in size. Venous The inferior vena cava is normal in size and collapses greater than 50% with inspiration. Pericardium/Pleural There is no evidence of pericardial effusion. Prior Study Comparison Changes noted compared to prior study dated: 05/22/2024. Severe septal hypertrophy, indeterminate filling pressures, mild RV dilation. Measurements 2D Linear Measurements IVSd: 1.79 0.6-0.9/0.6-1.0 cm LVIDd: 3.83 3.9-5.3/4.2-5.9 cm LVIDd Index: 1.91 2.4-3.2/2.2-3.1 cm/m2 LVIDs: 2.33 2.0-3.6 cm LVPWd: 1.23 0.7-1.1 cm LA Diam: 4.00 2.7-3.8/3.0-4.0 cm LAIDs Index: 1.99 1.5-2.3 cm/m2 LV Mass: 275.85 67-162/88-224 g LV Mass Index: 137.24 43-95/49-115 g/m2 LVOT Diam: 1.90 3.0+(-)1.3 cm 2D Systolic Function EF 4C: 73.50 >55% EF 2C: 65.70 >55% EF BiP: 69.10 >55% Mitral Valve MV Pk E: 0.73 MV PK A: 0.97 MV Decel Time: 227.00 E/A: 0.80 E'Lateral: 5.77 E'Medial: 4.79 E/E' Med: 15.20 E/E' Lat: 12.60 PHT: 67.00 MVA PHT: 3.28 Decel [place]: 3.21 Aortic Valve AoV Pk Dimitrios: 1.46 AoV Mn Dimitrios: 1.12 AoV VTI: 0.33 AoV Pk Grad: 9.00 Aov Mn Grad: 6.00 DEL Cont.VTI: 2.54 LVOT LVOT Pk Dimitrios: 1.20 LVOT Mn Dimitrios: 0.92 LVOT VTI: 0.29 LVOT Pk Grad: 6.00 LVOT Mn Grad: 4.00 LVOT Diam: 1.90 LVOT Area: 2.84 Diastolic Function MV Pk E: 0.73 MV Pk A: 0.97 E/A: 0.80 E'Medial: 4.79 E/E' Med: 15.20 E' Laterial: 5.77 E/E' Lat: 12.60 Right Ventricle TAPSE (mm): 24.80 TVS' Dimitrios: 12.30 Tricuspid Valve TR Pk Dimitrios: 2.16 TR Pk Grad: 19.00 RA Press: 8.00 RVSP: 27.00 Great Vessels Aorta Sinus of Valsalva: 2.70 2.0-3.5 cm Ao Asc: 3.20 2.1-3.4 cm Pulmonary Valve PV Pk Dimitrios: 1.04 Peak PV Grad: 4.00 Updated in Other Vendor System with Status of Final Fredi Mckinney MD electronically signed on 03/10/2025 4:35:44 PM with status of Final
--- NOTE | 2025-03-10 07:33 | PM.PNGS ---
Subjective Subjective Date of Service: 03/10/25 Interval history: doing well, pain now minimal. States her pain has resolved now that she has stopped vomiting. denies nausea. She would like to continue conservative management Physical Exam Vital Signs: Vital Signs: Last Vital Signs Temp 98.4 F 03/10/25 04:00 Pulse 73 03/10/25 04:00 Resp 16 03/10/25 04:00 BP 121/60 03/10/25 04:00 Pulse Ox 92 03/10/25 04:00 O2 Del Method Room Air 03/10/25 04:00 O2 Flow Rate 2 03/09/25 23:21 BMI result Body Mass Index 38.6 Const: General: comfortable and no acute distress Orientation/consciousness: patient oriented x3 GI: Inspection: No distended Palpation (GI): Soft to palpation and Tenderness to palpation present (GI) (very mild RUQ pain) Neuro: General: patient oriented x3 Objective Data Active Medications Albuterol/Ipratropium (Albuterol/Iprat 2.5/0.5mg 3 Ml Ampul.Neb) 3 ml INHALE Q4H PRN PRN Reason: Shortness of Breath/Wheezing Bisacodyl (Bisacodyl 10 Mg Supp.Rect) 10 mg [place] BEDTIME PRN PRN Reason: Constipation Calcium Carbonate (Calcium Carbonate 750 Mg Tab.Chew) 750 mg PO Q4H PRN PRN Reason: Heartburn Doxazosin Mesylate (Doxazosin Mesylate 2 Mg Tablet) 2 mg PO BEDTIME EUGENIO; Protocol Last Admin: 03/09/25 20:11 Dose: 2 mg Documented By: JOVAN Enoxaparin Sodium (Enoxaparin Sodium 40 Mg/0.4 Ml Syringe) 40 mg SUBCUT Q24H EUGENIO Last Admin: 03/09/25 07:52 Dose: 40 mg Documented By: DEISI Furosemide (Furosemide 40 Mg Tablet) 40 mg PO DAILY EUGENIO; Protocol Last Admin: 03/09/25 07:52 Dose: 40 mg Documented By: DEISI Hydromorphone HCl (Hydromorphone Hcl 1 Mg/Ml Syringe) 0.5 mg IVPUSH Q4H PRN; Protocol PRN Reason: Pain, Severe (Pain Scale 7-10) Last Admin: 03/09/25 07:44 Dose: 0.5 mg Documented By: DEISI Piperacillin Sod/Tazobactam (Sod 3.375 gm/ Sodium Chloride) 50 mls @ 100 mls/hr IV Q6H [facility] Last Infusion: 03/10/25 03:58 Dose: Infused Documented By: JOVAN Ketorolac Tromethamine (Ketorolac Tromethamine 15 Mg/Ml Vial) 15 mg IVPUSH Q6H PRN PRN Reason: Pain, Moderate(Pain Scale 4-6) Stop: 03/10/25 19:50 Last Admin: 03/09/25 06:27 Dose: 15 mg Documented By: SARA Magnesium Hydroxide (Milk Of Magnesia 30 Ml Oral.Susp) 30 ml PO DAILY PRN PRN Reason: Constipation Melatonin (Melatonin 3 Mg Tablet) 6 mg PO BEDTIME PRN PRN Reason: Insomnia Last Admin: 03/08/25 23:08 Dose: 6 mg Documented By: SARA Omeprazole (Omeprazole 40 Mg Capsule.Dr) 40 mg PO DAILY@0630 [facility] Last Admin: 03/10/25 05:19 Dose: 40 mg Documented By: JOVAN Ondansetron HCl (Ondansetron Hcl 4 Mg/2 Ml Vial) 4 mg IVPUSH Q8H PRN PRN Reason: Nausea and Vomiting Oxycodone HCl (Oxycodone Hcl Immed Release 5 Mg Tablet) 20 mg PO Q4H PRN PRN Reason: Pain, Moderate(Pain Scale 4-6) Last Admin: 03/10/25 06:52 Dose: 20 mg Documented By: MIKE Polyethylene Glycol (Polyethylene Glycol 3350 17 Gm Powd.Pack) 17 gm PO DAILY PRN PRN Reason: Constipation Pregabalin (Pregabalin 200 Mg Capsule) 200 mg PO BID [facility] Last Admin: 03/10/25 06:52 Dose: 200 mg Documented By: MIKE Senna (Sennosides 8.6 Mg Tablet) 17.2 mg PO BEDTIME [facility] Last Admin: 03/08/25 20:57 Dose: 17.2 mg Documented By: SARA Sodium Chloride (0.9 % Sodium Chloride Flush 3 Ml Syringe) [facility] Last Admin: 03/10/25 00:06 Dose: 3 ml Documented By: JOVAN Labs 03/09/25 04:16 03/09/25 04:16 Microbiology Microbiology Results: Microbiology 03/08/25 12:46 Blood Culture - Preliminary Blood - Venous No growth after 24 hours. 03/08/25 12:46 Blood Culture - Preliminary Blood - Venous No growth after 24 hours. 03/08/25 Unknown Urine Culture - Preliminary Urine clean catch - Clean Catch Midstream Gram negative altaf Procedures Date of Service Date of Service: 03/10/25 Progress Note: A&P Assessment and plan (1) Elevated LFTs: Status: Acute (2) Cholelithiasis: Status: Acute Plan 75-year-old female admitted for right upper quadrant pain, nausea vomiting with elevated LFTs. Initial workup concerning for cholecystitis. We had recommended MRCP which was performed yesterday showing cholelithiasis without definable evidence of cholecystitis without choledocholithiasis. Elevated total bili yesterday repeats pending this morning. She actually feels improved, states that she has less pain in the abdomen now that she has stopped vomiting. Denies further nausea or vomiting. She wishes to continue with conservative management with antibiotics she is concerned about surgeries. On exam there abdomen soft and benign very mild tenderness in the right upper quadrant. She looks well. For now I think give her a trial of clear liquid diet. If tolerating can slowly advance as tolerated. We will continue to trend LFTs, expect that to continue to decrease. Continue antibiotics Trial CLD Ambulation as tolerated Time Spent With Patient Time: Total time managing care of this patient today ____ minutes. Quality Stroke Does the patient have a stroke diagnosis?: No Reason for No Anti-thrombotic by Day Two: N/A - Med Ordered VTE Prior VTE?: No VTE Risk Level:: Medical - moderate - high VTE Device Contraindication: N/A - Device Ordered VTE Drug Contraindication: N/A - Med Ordered
[2025-03-10 07:59] LABS: Hepatitis A Antibody IgM 0.23 Index (0-0.79)
[2025-03-10 08:00] LABS: HBS Num1 1.15 mIU/mL (0-7.99); HBc Num1 0.22 S/CO (0.00-0.79); HBsAGNum1 0.41 S/CO (0.00-0.99); Hepatitis B Surface Antigen Negative (Negative); ~HepC Num1 0.12 S/CO (0.00-0.79); ~Hepatitis A Antibody IgM Nonreactive (Nonreactive); ~Hepatitis B Surface Antibody NONREACTIVE (Nonreactive); ~Hepatitis C Antibody Nonreactive (Nonreactive)
[2025-03-10 09:10] LABS: MANUAL DIFF FLAG NO
[2025-03-10 09:12] LABS: Hematocrit 35.0 % (37.0-47.0); Hemoglobin 11.5 g/dl (12.0-16.0); Imm Gran Abs Auto 0.04 X10*3/uL (0.00-0.03); Imm Gran Pct Auto 0.9 % (0.0-0.4); Lymphocytes Absolute Auto 1.4 X10*3/uL (1.2-4.9); Mean Corpuscular HGB Conc 32.9 g/dl (31.0-35.0); Mean Corpuscular Hemoglobin 30.0 pg (27.0-33.0); Mean Corpuscular Volume 91.4 fL (80.0-98.0); NRBC Abs Auto 0.000 X10*3/uL (0.0-0.012); NRBC Pct Auto 0.0 /100WBC (0.0-0.2); Platelet Count 145 X10*3/uL (160-400); Red Blood Count 3.83 X10*6/uL (4.20-5.50); White Blood Count 4.4 X10*3/uL (4.8-10.8)
[2025-03-10 09:13] LABS: Hematocrit 34.5 % (37.0-47.0); Hemoglobin 11.2 g/dl (12.0-16.0); Mean Corpuscular HGB Conc 32.5 g/dl (31.0-35.0); Mean Corpuscular Hemoglobin 29.7 pg (27.0-33.0); Mean Corpuscular Volume 91.5 fL (80.0-98.0); NRBC Abs Auto 0.000 X10*3/uL (0.0-0.012); NRBC Pct Auto 0.0 /100WBC (0.0-0.2); Platelet Count 141 X10*3/uL (160-400); Red Blood Count 3.77 X10*6/uL (4.20-5.50); White Blood Count 4.3 X10*3/uL (4.8-10.8)
[2025-03-10 09:30] LABS: Alanine Aminotransferase 154 U/L (0-31); Albumin Level 3.0 g/dL (3.5-5.0); Alkaline Phosphatase 167 U/L (39-117); Aspartate Amino Transferase 120 U/L (5-31); Blood Urea Nitrogen 23 mg/dL (9-16); Calcium 8.4 mg/dL (8.4-10.2); Creatinine Clr Calc Pharmacy 41.2; Estimated Glomerular Filt Rate 38; Total Protein 6.3 g/dL (6.5-8.0)
[2025-03-10 09:32] LABS: Alanine Aminotransferase 155 U/L (0-31); Albumin Level 3.0 g/dL (3.5-5.0); Alkaline Phosphatase 167 U/L (39-117); Aspartate Amino Transferase 121 U/L (5-31); Total Protein 6.3 g/dL (6.5-8.0)
[2025-03-10 09:38] LABS: Anion Gap 13 (12-20); Carbon Dioxide 24 mmol/L (22-29); Chloride 106 mmol/L (96-108); Potassium 3.8 mmol/L (3.3-5.1); Sodium 139 mmol/L (135-145)
--- NOTE | 2025-03-10 12:30 | MHC.CM.PN ---
PER MD ROUNDS, PT LIKELY TO DC TOMORROW HOME WITH RESUMPTION OF SERVICES VIA BLS
--- NOTE | 2025-03-10 14:56 | W.PM.IDCN ---
History of Present Illness Data of Consult Service Date: 03/10/25 Requesting physician: Brendan Eaton Primary Care Provider: Namita Acosta NP HPI Reason for consult: abdominal discomfort She presents with 2-3 days of abdominal discomfort She has RUQ and epigastric discomfort She has no relation to eating with discomfort She has no fever or chills at this time Review of Systems Review of Systems: Yes all other systems are reviewed and are negative PMFSH Past Medical History Medical History Hypertension Oxygen dependent Urinary tract infection due to extended-spectrum beta lactamase (ESBL) producing Escherichia coli Osteomyelitis COPD (chronic obstructive pulmonary disease) Hypothyroidism Congestive heart failure Fibromyalgia Depression Rheumatoid arthritis Family History Family History Father No problems noted. Other Heart disease Family history: reviewed and not pertinent Surgical History Surgical History Hx of prior ablation treatment Knee joint replacement status Social History Social History Household Members: None Household Members Other:: 0 Housing: Apartment Housing Other:: 1st floor Do you presently have visiting nurse or other home services: Yes Alcohol intake: never Comment: bedside commode Patient Tobacco Use Status: Former Tobacco user Tobacco use type: Cigarette e-Cigarette/Vaping Use: Never Used Second Hand Smoke Exposure: No Advance Directives Date on File: 10/19/23 service: No Travel History Ebola Risk: Travel/Contact With Anyone From Affected Area/s: No Has Patient Experienced Ebola Symptoms: No Meds Allergies Allergy/AdvReac Type Severity Reaction Status Date / Time lisinopril (LISINOPRIL) Allergy Severe ANAPHYLAXIS Verified 03/08/25 11:23 Sulfa (Sulfonamide Allergy Intermediate RASH Verified 03/08/25 11:23 Antibiotics) (SULFA (SULFONAMIDE ANTIBIOTICS)) tramadol (TRAMADOL) Allergy Intermediate RASH Verified 03/08/25 11:23 Mwheafg-ZHH-GaP Reductase Allergy Rash Verified 03/08/25 11:23 Inhibitor (Ednxglp-Cyf-Azr Reductase Inhibitor) hydrochlorothiazide (HCTZ) AdvReac Unknown ABNORMAL Verified 03/08/25 11:23 LABS? Active Medications: Current Medications Albuterol/Ipratropium (Albuterol/Iprat 2.5/0.5mg 3 Ml Ampul.Neb) 3 ml INHALE Q4H PRN PRN Reason: Shortness of Breath/Wheezing Bisacodyl (Bisacodyl 10 Mg Supp.Rect) 10 mg [place] BEDTIME PRN PRN Reason: Constipation Calcium Carbonate (Calcium Carbonate 750 Mg Tab.Chew) 750 mg PO Q4H PRN PRN Reason: Heartburn Doxazosin Mesylate (Doxazosin Mesylate 2 Mg Tablet) 2 mg PO BEDTIME [facility]; Protocol Last Admin: 03/09/25 20:11 Dose: 2 mg Enoxaparin Sodium (Enoxaparin Sodium 40 Mg/0.4 Ml Syringe) 40 mg SUBCUT Q24H [facility] Last Admin: 03/10/25 08:26 Dose: 40 mg Furosemide (Furosemide 40 Mg Tablet) 40 mg PO DAILY [facility]; Protocol Last Admin: 03/10/25 08:26 Dose: 40 mg Hydromorphone HCl (Hydromorphone Hcl 1 Mg/Ml Syringe) 0.5 mg IVPUSH Q4H PRN; Protocol PRN Reason: Pain, Severe (Pain Scale 7-10) Last Admin: 03/09/25 07:44 Dose: 0.5 mg Piperacillin Sod/Tazobactam (Sod 3.375 gm/ Sodium Chloride) 50 mls @ 100 mls/hr IV Q6H [facility] Last Admin: 03/10/25 14:31 Dose: 100 mls/hr Ketorolac Tromethamine (Ketorolac Tromethamine 15 Mg/Ml Vial) 15 mg IVPUSH Q6H PRN PRN Reason: Pain, Moderate(Pain Scale 4-6) Stop: 03/10/25 19:50 Last Admin: 03/09/25 06:27 Dose: 15 mg Magnesium Hydroxide (Milk Of Magnesia 30 Ml Oral.Susp) 30 ml PO DAILY PRN PRN Reason: Constipation Melatonin (Melatonin 3 Mg Tablet) 6 mg PO BEDTIME PRN PRN Reason: Insomnia Last Admin: 03/08/25 23:08 Dose: 6 mg Omeprazole (Omeprazole 40 Mg Capsule.Dr) 40 mg PO DAILY@0630 [facility] Last Admin: 03/10/25 05:19 Dose: 40 mg Ondansetron HCl (Ondansetron Hcl 4 Mg/2 Ml Vial) 4 mg IVPUSH Q8H PRN PRN Reason: Nausea and Vomiting Oxycodone HCl (Oxycodone Hcl Immed Release 5 Mg Tablet) 20 mg PO Q4H PRN PRN Reason: Pain, Moderate(Pain Scale 4-6) Last Admin: 03/10/25 14:32 Dose: 20 mg Polyethylene Glycol (Polyethylene Glycol 3350 17 Gm Powd.Pack) 17 gm PO DAILY PRN PRN Reason: Constipation Pregabalin (Pregabalin 200 Mg Capsule) 200 mg PO BID [facility] Last Admin: 03/10/25 06:52 Dose: 200 mg Senna (Sennosides 8.6 Mg Tablet) 17.2 mg PO BEDTIME [facility] Last Admin: 03/09/25 20:10 Dose: 17.2 mg Sodium Chloride (0.9 % Sodium Chloride Flush 3 Ml Syringe) 3 ml IVFLUSH QSHIFT [facility] Last Admin: 03/10/25 08:28 Dose: 3 ml Home Medications ?Medication ?Instructions ?Recorded ?Confirmed ?Last Taken ?Type methotrexate sodium 2.5 mg tablet 25 mg PO WE@0900 08/23/21 03/09/25 02/11/25 History omeprazole 40 mg capsule,delayed 40 mg PO DAILY@0630 08/23/21 03/09/25 02/17/25 History release prednisone 1 mg tablet 4 mg PO DAILY 08/23/21 03/09/25 02/17/25 History pregabalin 200 mg capsule 200 mg PO BID 01/07/23 03/09/25 02/17/25 History folic acid 1 mg tablet 2 mg PO DAILY 10/13/23 03/09/25 02/17/25 History acetaminophen 325 mg tablet 650 mg PO Q4H PRN Moderate Pain 03/04/24 03/09/25 Unknown History (Tylenol) (Scale Score 5-6) melatonin 10 mg tablet 10 mg PO BEDTIME PRN Sleep 05/03/24 03/09/25 Unknown History multivitamin 1 tab PO DAILY 05/03/24 03/09/25 02/17/25 History atenolol 25 mg tablet 50 mg PO DAILY 08/29/24 03/09/25 02/17/25 History furosemide 40 mg tablet 40 mg PO DAILY PRN Edema 10/07/24 03/09/25 02/17/25 History cholecalciferol (vitamin D3) 25 25 mcg PO DAILY 02/19/25 03/09/25 02/17/25 History mcg (1,000 unit) capsule doxazosin 2 mg tablet 2 mg PO BEDTIME 03/09/25 03/09/25 Unknown History magnesium oxide 400 mg PO DAILY 03/09/25 03/09/25 Unknown History thiamine HCl (vitamin B1) 50 mg 50 mg PO DAILY 03/09/25 03/09/25 Unknown History tablet Physical Exam Vital Signs: Vital Signs: Last Vital Signs Temp 97.8 F 03/10/25 11:53 Pulse 69 03/10/25 11:53 Resp 18 03/10/25 11:53 BP 122/67 03/10/25 11:53 Pulse Ox 96 03/10/25 11:53 O2 Del Method Room Air 03/10/25 11:53 O2 Flow Rate 2 03/09/25 23:21 BMI result Body Mass Index 38.6 GI: Other: abdominal discomfort RUQ Results Labs 03/10/25 08:29 03/10/25 08:29 Labs: Short CBC 03/10/25 03/10/25 03/10/25 Range/Units 08:29 08:29 08:29 WBC 4.3 L 4.4 L (4.8-10.8) X10*3/uL Hgb 11.2 L 11.5 L (12.0-16.0) g/dl Hct 34.5 L (37.0-47.0) % Plt Count (160-400) X10*3/uL 03/10/25 03/10/25 Range/Units 08:29 08:29 WBC (4.8-10.8) X10*3/uL Hgb (12.0-16.0) g/dl Hct 35.0 L (37.0-47.0) % Plt Count 141 L 145 L (160-400) X10*3/uL BMP 03/10/25 08:29 Sodium 139 Potassium 3.8 D Chloride 106 Carbon Dioxide 24 BUN 23 H Creatinine 1.36 Calcium 8.4 Liver Function 03/10/25 03/10/25 03/10/25 Range/Units 08:29 08:29 08:29 Total Bilirubin 2.0 H 2.0 H (0.0-1.0) mg/dL Direct Bilirubin 1.4 H (0.0-0.5) mg/dL AST 121 H 120 H (5-31) U/L ALT 155 H (0-31) U/L Alkaline Phosphatase (39-117) U/L Albumin (3.5-5.0) g/dL 03/10/25 03/10/25 03/10/25 Range/Units 08:29 08:29 08:29 Total Bilirubin (0.0-1.0) mg/dL Direct Bilirubin (0.0-0.5) mg/dL AST (5-31) U/L ALT 154 H (0-31) U/L Alkaline Phosphatase 167 H 167 H (39-117) U/L Albumin 3.0 L 3.0 L (3.5-5.0) g/dL Microbiology Microbiology Results: Microbiology 03/08/25 Unknown Urine clean catch - Clean Catch Midstream Urine Culture - Final Escherichia coli 03/08/25 12:46 Blood - Venous Blood Culture - Preliminary No growth after 24 hours. 03/08/25 12:46 Blood - Venous Blood Culture - Preliminary No growth after 24 hours. Assessment and Plan (1) Cholelithiasis: Qualifiers: Cholelithiasis location: gallbladder Cholecystitis presence: with cholecystitis Cholecystitis acuity: acute Biliary obstruction: with biliary obstruction Qualified Code(s): K80.01 - Calculus of gallbladder with acute cholecystitis with obstruction Status: Acute (2) Transaminitis: Status: Acute Plan She has likely gallstones rather than UTI as problem recently She is on piperacillin/tazobactam Would continue piperacillin/tazobactam Switch to po Augmentin 10 d outpatient. Follow with Dr Hercules for cholecystectomy
--- NOTE | 2025-03-10 15:13 | HO.PM.IMPN ---
Subjective Subjective Date of Service: 03/10/25 Interval History: no new issues today the patient reports no abdominal pain or nausea/ vomiting feels better overall urine reveals ESBL >100,000 Review of Systems Review of Systems: Yes all other systems are reviewed and are negative Physical Exam Exam: Exam: General: A&O x3, oriented to time place person and situation, comfortable, no pain Cardiac: S1, S2 auscultated with no S3/4, no MRG. Well perfused. Respiratory: Normal breath sounds auscultated throughout all lung zones, without wheezing, rales. Normal rate. GI/ : Epigastric tenderness and right upper quadrant tenderness on deep palpation, generalized abdominal distention noted. No hepatosplenomegaly noted. Normal bowel sounds, no kidney ballottement. No jaundice or scleral icterus MSK: Normal ambulation without pain at bony prominences or musculature Neurological: Normal neurological examination on overview, without obvious CN II-XII abnormalities. Vital Signs: Vital Signs: Last Vital Signs Temp 97.8 F 03/10/25 11:53 Pulse 69 03/10/25 11:53 Resp 18 03/10/25 11:53 BP 122/67 03/10/25 11:53 Pulse Ox 96 03/10/25 11:53 O2 Del Method Room Air 03/10/25 11:53 O2 Flow Rate 2 03/09/25 23:21 BMI result Body Mass Index 38.6 Objective Data Active Medications Albuterol/Ipratropium (Albuterol/Iprat 2.5/0.5mg 3 Ml Ampul.Neb) 3 ml INHALE Q4H PRN PRN Reason: Shortness of Breath/Wheezing Bisacodyl (Bisacodyl 10 Mg Supp.Rect) 10 mg [place] BEDTIME PRN PRN Reason: Constipation Calcium Carbonate (Calcium Carbonate 750 Mg Tab.Chew) 750 mg PO Q4H PRN PRN Reason: Heartburn Doxazosin Mesylate (Doxazosin Mesylate 2 Mg Tablet) 2 mg PO BEDTIME [facility]; Protocol Last Admin: 03/09/25 20:11 Dose: 2 mg Documented By: JOVAN Enoxaparin Sodium (Enoxaparin Sodium 40 Mg/0.4 Ml Syringe) 40 mg SUBCUT Q24H [facility] Last Admin: 03/10/25 08:26 Dose: 40 mg Documented By: LYNN Furosemide (Furosemide 40 Mg Tablet) 40 mg PO DAILY [facility]; Protocol Last Admin: 03/10/25 08:26 Dose: 40 mg Documented By: LYNN Hydromorphone HCl (Hydromorphone Hcl 1 Mg/Ml Syringe) 0.5 mg IVPUSH Q4H PRN; Protocol PRN Reason: Pain, Severe (Pain Scale 7-10) Last Admin: 03/09/25 07:44 Dose: 0.5 mg Documented By: DEISI Piperacillin Sod/Tazobactam (Sod 3.375 gm/ Sodium Chloride) 50 mls @ 100 mls/hr IV Q6H [facility] Last Infusion: 03/10/25 14:59 Dose: Infused Documented By: LYNN Ketorolac Tromethamine (Ketorolac Tromethamine 15 Mg/Ml Vial) 15 mg IVPUSH Q6H PRN PRN Reason: Pain, Moderate(Pain Scale 4-6) Stop: 03/10/25 19:50 Last Admin: 03/09/25 06:27 Dose: 15 mg Documented By: SARA Magnesium Hydroxide (Milk Of Magnesia 30 Ml Oral.Susp) 30 ml PO DAILY PRN PRN Reason: Constipation Melatonin (Melatonin 3 Mg Tablet) 6 mg PO BEDTIME PRN PRN Reason: Insomnia Last Admin: 03/08/25 23:08 Dose: 6 mg Documented By: SARA Omeprazole (Omeprazole 40 Mg Capsule.Dr) 40 mg PO DAILY@0630 [facility] Last Admin: 03/10/25 05:19 Dose: 40 mg Documented By: JOVAN Ondansetron HCl (Ondansetron Hcl 4 Mg/2 Ml Vial) 4 mg IVPUSH Q8H PRN PRN Reason: Nausea and Vomiting Oxycodone HCl (Oxycodone Hcl Immed Release 5 Mg Tablet) 20 mg PO Q4H PRN PRN Reason: Pain, Moderate(Pain Scale 4-6) Last Admin: 03/10/25 14:32 Dose: 20 mg Documented By: LYNN Polyethylene Glycol (Polyethylene Glycol 3350 17 Gm Powd.Pack) 17 gm PO DAILY PRN PRN Reason: Constipation Pregabalin (Pregabalin 200 Mg Capsule) 200 mg PO BID [facility] Last Admin: 03/10/25 06:52 Dose: 200 mg Documented By: MIKE Senna (Sennosides 8.6 Mg Tablet) 17.2 mg PO BEDTIME [facility] Last Admin: 03/08/25 20:57 Dose: 17.2 mg Documented By: SARA Sodium Chloride (0.9 % Sodium Chloride Flush 3 Ml Syringe) 3 ml IVFLUSH QSHIFT [facility] Last Admin: 03/10/25 08:28 Dose: 3 ml Documented By: RAFAPAT Labs 03/10/25 08:29 03/10/25 08:29 Labs: Laboratory Results - last 24 hr 03/08/25 03/10/25 03/10/25 15:40 08:29 08:29 MCV 91.5 91.4 MCH 29.7 MCHC RDW Plt Count MPV Immature Gran % (Auto) Neut % (Auto) Lymph % (Auto) [place] % (Auto) Eos % (Auto) Baso % (Auto) Lymph # (Auto) [place] # (Auto) Eos # (Auto) Baso # (Auto) Abs Immat Gran (auto) Absolute Neuts (auto) Absolute Nucleated RBC Nucleated RBC % (auto) Anion Gap Estim Creat Clear Calc Estimated GFR Random Glucose Calcium Total Bilirubin Direct Bilirubin AST ALT Alkaline Phosphatase Total Protein Albumin Hepatitis A IgM Ab Nonreactive Hep Bs Antigen Negative Hep Bs Antibody NONREACTIVE Hep B Core Total Ab Nonreactive Hepatitis C Ab (EIA) Nonreactive 03/10/25 03/10/25 03/10/25 08:29 08:29 08:29 MCV MCH 30.0 MCHC 32.5 32.9 RDW 15.8 15.9 Plt Count 141 L MPV Immature Gran % (Auto) Neut % (Auto) Lymph % (Auto) [place] % (Auto) Eos % (Auto) Baso % (Auto) Lymph # (Auto) [place] # (Auto) Eos # (Auto) Baso # (Auto) Abs Immat Gran (auto) Absolute Neuts (auto) Absolute Nucleated RBC Nucleated RBC % (auto) Anion Gap Estim Creat Clear Calc Estimated GFR Random Glucose Calcium Total Bilirubin Direct Bilirubin AST ALT Alkaline Phosphatase Total Protein Albumin Hepatitis A IgM Ab Hep Bs Antigen Hep Bs Antibody Hep B Core Total Ab Hepatitis C Ab (EIA) 03/10/25 03/10/25 03/10/25 08:29 08:29 08:29 MCV MCH MCHC RDW Plt Count 145 L MPV 11.1 11.1 Immature Gran % (Auto) 0.9 H Neut % (Auto) 55.2 Lymph % (Auto) 32.7 Clayton % (Auto) 8.0 Eos % (Auto) 3.0 Baso % (Auto) 0.2 Lymph # (Auto) 1.4 Clayton # (Auto) 0.4 Eos # (Auto) 0.1 Baso # (Auto) 0.0 Abs Immat Gran (auto) 0.04 H Absolute Neuts (auto) 2.4 Absolute Nucleated RBC 0.000 0.000 Nucleated RBC % (auto) 0.0 Anion Gap Estim Creat Clear Calc Estimated GFR Random Glucose Calcium Total Bilirubin Direct Bilirubin AST ALT Alkaline Phosphatase Total Protein Albumin Hepatitis A IgM Ab Hep Bs Antigen Hep Bs Antibody Hep B Core Total Ab Hepatitis C Ab (EIA) 03/10/25 03/10/25 03/10/25 08:29 08:29 08:29 MCV MCH MCHC RDW Plt Count MPV Immature Gran % (Auto) Neut % (Auto) Lymph % (Auto) [place] % (Auto) Eos % (Auto) Baso % (Auto) Lymph # (Auto) [place] # (Auto) Eos # (Auto) Baso # (Auto) Abs Immat Gran (auto) Absolute Neuts (auto) Absolute Nucleated RBC Nucleated RBC % (auto) 0.0 Anion Gap 13 Estim Creat Clear Calc 41.2 Estimated GFR 38 Random Glucose 93 Calcium 8.4 Total Bilirubin 2.0 H 2.0 H Direct Bilirubin 1.4 H AST 121 H 120 H ALT 155 H Alkaline Phosphatase Total Protein Albumin Hepatitis A IgM Ab Hep Bs Antigen Hep Bs Antibody Hep B Core Total Ab Hepatitis C Ab (EIA) 03/10/25 03/10/25 03/10/25 08:29 08:29 08:29 MCV MCH MCHC RDW Plt Count MPV Immature Gran % (Auto) Neut % (Auto) Lymph % (Auto) Clayton % (Auto) Eos % (Auto) Baso % (Auto) Lymph # (Auto) [place] # (Auto) Eos # (Auto) Baso # (Auto) Abs Immat Gran (auto) Absolute Neuts (auto) Absolute Nucleated RBC Nucleated RBC % (auto) Anion Gap Estim Creat Clear Calc Estimated GFR Random Glucose Calcium Total Bilirubin Direct Bilirubin AST ALT 154 H Alkaline Phosphatase 167 H 167 H Total Protein 6.3 L 6.3 L Albumin 3.0 L Hepatitis A IgM Ab Hep Bs Antigen Hep Bs Antibody Hep B Core Total Ab Hepatitis C Ab (EIA) 03/10/25 08:29 MCV MCH MCHC RDW Plt Count MPV Immature Gran % (Auto) Neut % (Auto) Lymph % (Auto) [place] % (Auto) Eos % (Auto) Baso % (Auto) Lymph # (Auto) [place] # (Auto) Eos # (Auto) Baso # (Auto) Abs Immat Gran (auto) Absolute Neuts (auto) Absolute Nucleated RBC Nucleated RBC % (auto) Anion Gap Estim Creat Clear Calc Estimated GFR Random Glucose Calcium Total Bilirubin Direct Bilirubin AST ALT Alkaline Phosphatase Total Protein Albumin 3.0 L Hepatitis A IgM Ab Hep Bs Antigen Hep Bs Antibody Hep B Core Total Ab Hepatitis C Ab (EIA) Microbiology Microbiology Results: Microbiology 03/08/25 12:46 Blood Culture - Preliminary Blood - Venous No growth after 48 hours. 03/08/25 12:46 Blood Culture - Preliminary Blood - Venous No growth after 48 hours. 03/08/25 Unknown Urine Culture - Final Urine clean catch - Clean Catch Midstream Escherichia coli Assessment and Plan (1) Peripheral artery disease: Status: Acute (2) Infrarenal abdominal aortic aneurysm (AAA) without rupture: Status: Acute (3) Transaminitis: Status: Acute (4) Cholelithiasis: Status: Acute (5) Elevated LFTs: Status: Acute (6) Acute cystitis: Status: Acute (7) Lower extremity weakness: Status: Acute Plan 75-year-old female with a complex history including hypertension, CHF (HFpEF), COPD (on nocturnal O2), ESBL UTI, RA on chronic opioids, hypothyroidism, obesity, infrarenal AAA, and left TKR, admitted for acute RUQ/epigastric pain, nausea/vomiting, and inability to tolerate oral medications, found to have acute cystitis (ESBL), transaminitis with imaging concerning for cholecystitis, and a growing infrarenal AAA, now stable on the medical floor. Acute Cystitis (ESBL, no sepsis) Course:?Presented with dysuria, urinary retention, and positive UA (nitrites, leuk esterase, >50 WBC, 4+ bacteria). CT: gas in bladder. History of ESBL E. coli. No leukocytosis or lactic acidosis. Started on ertapenem in ED; ID consulted. Plan: Continue zosyn Monitor for clinical response (fever, dysuria, urine output). Periwick and bladder scan q shift to monitor retention. Maintain conservative IV fluids (CHF history). Monitor renal function and electrolytes. Infectious Disease to follow; review and reccs are greatly appreciated Transaminitis / Suspected Acute Cholecystitis Course:?AST 373, ALT 199, Alk Phos 210, TBili 1.0. RUQ US: cholelithiasis, GB wall thickening, equivocal pericholecystic fluid (concern for cholecystitis). CT: no acute hepatic findings. GI and General Surgery consulted. Hepatitis panel pending. No evidence of CBD dilation or obstruction. MRCP shows no evidence of choledocholithiasis. No need for ERCP as per GI The patient is planned for outpatient vs inpatient surgery Plan: IV Zosyn (added for biliary coverage) until further guidance. Avoid hepatotoxic medications (acetaminophen, statins). Serial LFTs, monitor for clinical deterioration. Await hepatitis panel. Surgical evaluation for possible cholecystectomy as inpatient vs outpatient Infrarenal Abdominal Aortic Aneurysm (AAA) ? 4.5 cm, stable, no rupture Course:?Known AAA, increased from 4.0 cm (10/2024) to 4.5 cm. No leak on CT. No vascular follow-up. BP controlled, renal function stable. Vascular surgery consulted. Plan: Vascular surgery to evaluate for outpatient surveillance vs. intervention. Strict BP control (goal <130/80). Avoid heavy lifting/straining. Monitor for abdominal/back pain, hypotension. Outpatient vascular surgery follow-up to be arranged. Immobility / S/P Left TKR / Chronic Pain / Fall Risk Course:?Wheelchair-bound, unable to ambulate, left knee swelling, chronic pain on high-dose oxycodone, history of stable medial femoral condyle fracture, negative for acute DVT (venous duplex negative), negative for new fracture (x-ray). Plan PT/OT evaluation for mobility and safe transfer. Strict fall precautions, bed/chair alarms. Continue bowel regimen. Pain management: continue home regimen, consider opioid weaning plan, consult pain management outpatient. Case management to ensure safe discharge plan (home services, equipment) Heart Failure with Preserved Ejection Fraction (HFpEF) Course:?History of CHF, BNP 2531, no acute decompensation, on furosemide, fluid restriction, daily weights, last echo (04/2024) with?intra-atrial shunt. Plan: Continue furosemide 40 mg daily. Fluid restriction 1.5 L/day. Daily weights, strict I/Os. Low-sodium diet. Repeat echo ordered. COPD (on nocturnal O2) Course:?No acute exacerbation, uses 2-3L O2 at night, no RUDY, no current respiratory distress. Plan: Continue home O2 at night. PRN duonebs. Monitor for hypoxia, respiratory distress. Avoid sedating medications. Hypertension Course:?BP controlled on atenolol, history of severe hypertension on ED arrival (improved after pain control). Plan: Continue atenolol, monitor BP. Hold for SBP <90 or HR <60. Low-sodium diet. Hypothyroidism Course:?Stable, TSH WNL, on levothyroxine. Plan: Continue levothyroxine 50 mcg daily. Chronic Pain / RA / Fibromyalgia Course:?On chronic oxycodone, methotrexate, prednisone, pregabalin. Admits to opioid dependence. No acute joint swelling. Plan: Continue home pain regimen. Bowel regimen. Encourage outpatient pain management referral. Monitor for opioid withdrawal. Depression Course:?On bupropion, mood stable. Plan: Continue bupropion. Monitor for mood changes. Obesity (BMI 44.3) Course:?Contributes to immobility, RUDY risk. Plan: Encourage weight management counseling as outpatient. Lymphedema / Left Leg Edema Course:?Chronic, no DVT, no cellulitis. Plan: Elevate leg, compression as tolerated. Monitor for skin breakdown. GERD Course:?On omeprazole. Plan: Continue omeprazole. Osteomyelitis (remote) Course:?No current evidence of active infection. Plan: Monitor for signs of recurrence. [employer] VTE Prophylaxis: Enoxaparin 40 mg OD SQ Code Status: Full code Diet: Low sodium, regular as tolerated Total time managing care of this patient today: 45 minutes. Quality Stroke Does the patient have a stroke diagnosis?: No Reason for No Anti-thrombotic by Day Two: N/A - Med Ordered VTE Prior VTE?: No VTE Risk Level:: Medical - moderate - high VTE Device Contraindication: N/A - Device Ordered VTE Drug Contraindication: N/A - Med Ordered
[2025-03-11] VITALS (7 sets, daily range): BP systolic 118–153; BP diastolic 60–75; PULSE 60–80; RESP 16–18; TEMP 36.3–37.1; O2SAT 91–95; BMI 37.1
[2025-03-11] MEDS: oxyCODONE HCl Immed Release 5 MG TABLET 20 MG PO ×5 (03:25→22:20)
--- NOTE | 2025-03-11 07:29 | P.PNGS_ITS ---
Subjective Subjective Date of Service: 03/11/25 Interval history: feeling good overall, complaining of some indigestion after meals. denies nausea or vomiting. Physical Exam 2 Vital Signs: Vital Signs: Last Vital Signs Temp 97.3 F 03/11/25 03:38 Pulse 80 03/11/25 03:38 Resp 18 03/11/25 03:38 BP 153/75 H 03/11/25 03:38 Pulse Ox 95 03/11/25 03:38 O2 Del Method Room Air 03/11/25 03:38 O2 Flow Rate 2 03/09/25 23:21 BMI result Body Mass Index 37.1 Const: General: comfortable and no acute distress O rientation/consciousness: patient oriented x3 Resp: Effort & Inspection: normal respiratory effort and able to speak in complete sentences GI: Inspection: No distended Palpation (GI): Soft to palpation and nontender Neuro: General: patient oriented x3 Objective Data Active Medications Albuterol/Ipratropium (Albuterol/Iprat 2.5/0.5mg 3 Ml Ampul.Neb) 3 ml INHALE Q4H PRN PRN Reason: Shortness of Breath/Wheezing Atenolol (Atenolol 50 Mg Tablet) 50 mg PO DAILY EUGENIO; Protocol Bisacodyl (Bisacodyl 10 Mg Supp.Rect) 10 mg [place] BEDTIME PRN PRN Reason: Constipation Calcium Carbonate (Calcium Carbonate 750 Mg Tab.Chew) 750 mg PO Q4H PRN PRN Reason: Heartburn Last Admin: 03/11/25 03:28 Dose: 750 mg Documented By: MASOOD Doxazosin Mesylate (Doxazosin Mesylate 2 Mg Tablet) 2 mg PO BEDTIME EUGENIO; Protocol Last Admin: 03/10/25 21:59 Dose: 2 mg Documented By: LEO Enoxaparin Sodium (Enoxaparin Sodium 40 Mg/0.4 Ml Syringe) 40 mg SUBCUT Q24H EUGENIO Last Admin: 03/10/25 08:26 Dose: 40 mg Documented By: LYNN Folic Acid (Folic Acid 1 Mg Tablet) 2 mg PO DAILY EUGENIO Furosemide (Furosemide 40 Mg Tablet) 40 mg PO DAILY EUGENIO; Protocol Last Admin: 03/10/25 08:26 Dose: 40 mg Documented By: LYNN Hydralazine HCl (Hydralazine Hcl 20 Mg/Ml Vial) 5 mg IVPUSH Q6H PRN; Protocol PRN Reason: SBP > 160 Last Admin: 03/11/25 00:22 Dose: 5 mg Documented By: MASOOD Hydromorphone HCl (Hydromorphone Hcl 1 Mg/Ml Syringe) 0.5 mg IVPUSH Q4H PRN; Protocol PRN Reason: Pain, Severe (Pain Scale 7-10) Last Admin: 03/09/25 07:44 Dose: 0.5 mg Documented By: DEISI Piperacillin Sod/Tazobactam (Sod 3.375 gm/ Sodium Chloride) 50 mls @ 100 mls/hr IV Q6H [facility] Last Infusion: 03/11/25 04:02 Dose: Infused Documented By: MASOOD Magnesium Hydroxide (Milk Of Magnesia 30 Ml Oral.Susp) 30 ml PO DAILY PRN PRN Reason: Constipation Magnesium Oxide (Magnesium Oxide 400 Mg Tablet) 400 mg PO DAILY [facility] Melatonin (Melatonin 3 Mg Tablet) 6 mg PO BEDTIME PRN PRN Reason: Insomnia Last Admin: 03/08/25 23:08 Dose: 6 mg Documented By: SARA Multivitamins/Vitamin C (Multivitamin Tablet) 1 tab PO DAILY [facility] Omeprazole (Omeprazole 40 Mg Capsule.Dr) 40 mg PO DAILY@0630 [facility] Last Admin: 03/11/25 05:40 Dose: 40 mg Documented By: MASOOD Ondansetron HCl (Ondansetron Hcl 4 Mg/2 Ml Vial) 4 mg IVPUSH Q8H PRN PRN Reason: Nausea and Vomiting Last Admin: 03/11/25 00:25 Dose: 4 mg Documented By: MASOOD Oxycodone HCl (Oxycodone Hcl Immed Release 5 Mg Tablet) 20 mg PO Q4H PRN PRN Reason: Pain, Moderate(Pain Scale 4-6) Last Admin: 03/11/25 03:25 Dose: 20 mg Documented By: MASOOD Polyethylene Glycol (Polyethylene Glycol 3350 17 Gm Powd.Pack) 17 gm PO DAILY PRN PRN Reason: Constipation Prednisone (Prednisone 1 Mg Tablet) 4 mg PO DAILY [facility] Pregabalin (Pregabalin 200 Mg Capsule) 200 mg PO BID [facility] Last Admin: 03/10/25 21:59 Dose: 200 mg Documented By: LEO Senna (Sennosides 8.6 Mg Tablet) 17.2 mg PO BEDTIME [facility] Last Admin: 03/10/25 21:59 Dose: 17.2 mg Documented By: LEO Sodium Chloride (0.9 % Sodium Chloride Flush 3 Ml Syringe) 3 ml IVFLUSH QSHIFT [facility] Last Admin: 03/10/25 22:00 Dose: 3 ml Documented By: LEO Thiamine HCl (Thiamine Hcl 100 Mg Tablet) 50 mg PO DAILY [facility] Vitamin D (Cholecalciferol (Vitamin D3) 25 Mcg Tablet) 25 mcg PO DAILY [facility] Labs 03/10/25 08:29 03/10/25 08:29 Labs: Laboratory Results - last 24 hr 03/08/25 03/10/25 03/10/25 15:40 08:29 08:29 MCV 91.5 91.4 MCH 29.7 MCHC RDW Plt Count MPV Immature Gran % (Auto) Neut % (Auto) Lymph % (Auto) Luce % (Auto) Eos % (Auto) Baso % (Auto) Lymph # (Auto) Luce # (Auto) Eos # (Auto) Baso # (Auto) Abs Immat Gran (auto) Absolute Neuts (auto) Absolute Nucleated RBC Nucleated RBC % (auto) Anion Gap Estim Creat Clear Calc Estimated GFR Random Glucose Calcium Total Bilirubin Direct Bilirubin AST ALT Alkaline Phosphatase Total Protein Albumin Hepatitis A IgM Ab Nonreactive Hep Bs Antigen Negative Hep Bs Antibody NONREACTIVE Hep B Core Total Ab Nonreactive Hepatitis C Ab (EIA) Nonreactive 03/10/25 03/10/25 03/10/25 08:29 08:29 08:29 MCV MCH 30.0 MCHC 32.5 32.9 RDW 15.8 15.9 Plt Count 141 L MPV Immature Gran % (Auto) Neut % (Auto) Lymph % (Auto) Luce % (Auto) Eos % (Auto) Baso % (Auto) Lymph # (Auto) Luce # (Auto) Eos # (Auto) Baso # (Auto) Abs Immat Gran (auto) Absolute Neuts (auto) Absolute Nucleated RBC Nucleated RBC % (auto) Anion Gap Estim Creat Clear Calc Estimated GFR Random Glucose Calcium Total Bilirubin Direct Bilirubin AST ALT Alkaline Phosphatase Total Protein Albumin Hepatitis A IgM Ab Hep Bs Antigen Hep Bs Antibody Hep B Core Total Ab Hepatitis C Ab (EIA) 03/10/25 03/10/25 03/10/25 08:29 08:29 08:29 MCV MCH MCHC RDW Plt Count 145 L MPV 11.1 11.1 Immature Gran % (Auto) 0.9 H Neut % (Auto) 55.2 Lymph % (Auto) 32.7 Luce % (Auto) 8.0 Eos % (Auto) 3.0 Baso % (Auto) 0.2 Lymph # (Auto) 1.4 Luce # (Auto) 0.4 Eos # (Auto) 0.1 Baso # (Auto) 0.0 Abs Immat Gran (auto) 0.04 H Absolute Neuts (auto) 2.4 Absolute Nucleated RBC 0.000 0.000 Nucleated RBC % (auto) 0.0 Anion Gap Estim Creat Clear Calc Estimated GFR Random Glucose Calcium Total Bilirubin Direct Bilirubin AST ALT Alkaline Phosphatase Total Protein Albumin Hepatitis A IgM Ab Hep Bs Antigen Hep Bs Antibody Hep B Core Total Ab Hepatitis C Ab (EIA) 03/10/25 03/10/25 03/10/25 08:29 08:29 08:29 MCV MCH MCHC RDW Plt Count MPV Immature Gran % (Auto) Neut % (Auto) Lymph % (Auto) Luce % (Auto) Eos % (Auto) Baso % (Auto) Lymph # (Auto) Luce # (Auto) Eos # (Auto) Baso # (Auto) Abs Immat Gran (auto) Absolute Neuts (auto) Absolute Nucleated RBC Nucleated RBC % (auto) 0.0 Anion Gap 13 Estim Creat Clear Calc 41.2 Estimated GFR 38 Random Glucose 93 Calcium 8.4 Total Bilirubin 2.0 H 2.0 H Direct Bilirubin 1.4 H AST 121 H 120 H ALT 155 H Alkaline Phosphatase Total Protein Albumin Hepatitis A IgM Ab Hep Bs Antigen Hep Bs Antibody Hep B Core Total Ab Hepatitis C Ab (EIA) 03/10/25 03/10/25 03/10/25 08:29 08:29 08:29 MCV MCH MCHC RDW Plt Count MPV Immature Gran % (Auto) Neut % (Auto) Lymph % (Auto) Luce % (Auto) Eos % (Auto) Baso % (Auto) Lymph # (Auto) Luce # (Auto) Eos # (Auto) Baso # (Auto) Abs Immat Gran (auto) Absolute Neuts (auto) Absolute Nucleated RBC Nucleated RBC % (auto) Anion Gap Estim Creat Clear Calc Estimated GFR Random Glucose Calcium Total Bilirubin Direct Bilirubin AST ALT 154 H Alkaline Phosphatase 167 H 167 H Total Protein 6.3 L 6.3 L Albumin 3.0 L Hepatitis A IgM Ab Hep Bs Antigen Hep Bs Antibody Hep B Core Total Ab Hepatitis C Ab (EIA) 03/10/25 08:29 MCV MCH MCHC RDW Plt Count MPV Immature Gran % (Auto) Neut % (Auto) Lymph % (Auto) Luce % (Auto) Eos % (Auto) Baso % (Auto) Lymph # (Auto) Luce # (Auto) Eos # (Auto) Baso # (Auto) Abs Immat Gran (auto) Absolute Neuts (auto) Absolute Nucleated RBC Nucleated RBC % (auto) Anion Gap Estim Creat Clear Calc Estimated GFR Random Glucose Calcium Total Bilirubin Direct Bilirubin AST ALT Alkaline Phosphatase Total Protein Albumin 3.0 L Hepatitis A IgM Ab Hep Bs Antigen Hep Bs Antibody Hep B Core Total Ab Hepatitis C Ab (EIA) Microbiology Microbiology Results: Microbiology 03/08/25 12:46 Blood Culture - Preliminary Blood - Venous No growth after 48 hours. 03/08/25 12:46 Blood Culture - Preliminary Blood - Venous No growth after 48 hours. 03/08/25 Unknown Urine Culture - Final Urine clean catch - Clean Catch Midstream Escherichia coli Procedures Date of Service Date of Service: 03/11/25 Progress Note: A&P Assessment and plan (1) Elevated LFTs: Status: Acute (2) Cholelithiasis: Status: Acute Plan 75-year-old female admitted for right upper quadrant pain, nausea vomiting with elevated LFTs. Initial workup concerning for cholecystitis. Patient previously wished for conservative management with antibiotics. Today feeling very good, denying pain, complaining of some indigestion after meals yesterday. Otherwise tolerating regular diet. We could increase frequency of omeprazole, possibly add famotidine. Labs from yesterday showing liver enzymes trending down however remained pretty significantly elevated. Repeats today are pending. She denies further nausea or vomiting. After some discussion with patient regarding her options she was willing to agree to some surgical intervention in the future, does not wanted to be during this admission as she has some upcoming plans but would like to see us as an outpatient to have an elective laparoscopic cholecystectomy. On exam there abdomen soft and benign She looks well. Continue with regular diet We will continue to trend LFTs, expect that to continue to decrease on the repeat labs today Continue antibiotics Diet as tolerated Ambulation as tolerated Labs pending, trend liver enzymes Time Spent With Patient Time: Total time managing care of this patient today ____ minutes. Quality Stroke Does the patient have a stroke diagnosis?: No Reason for No Anti-thrombotic by Day Two: N/A - Med Ordered VTE Prior VTE?: No VTE Risk Level:: Medical - moderate - high VTE Device Contraindication: N/A - Device Ordered VTE Drug Contraindication: N/A - Med Ordered
[2025-03-11] MEDS: 0.9 % Sodium Chloride Flush 3 ML SYRINGE IVFLUSH ×3 (07:59→20:31)
[2025-03-11 09:15] LABS: Alanine Aminotransferase 115 U/L (0-31); Albumin Level 3.0 g/dL (3.5-5.0); Alkaline Phosphatase 148 U/L (39-117); Anion Gap 12 (12-20); Aspartate Amino Transferase 68 U/L (5-31); Blood Urea Nitrogen 20 mg/dL (9-16); Calcium 8.6 mg/dL (8.4-10.2); Carbon Dioxide 25 mmol/L (22-29); Chloride 106 mmol/L (96-108); Creatinine Clr Calc Pharmacy 39.4; Estimated Glomerular Filt Rate 37; Potassium 4.1 mmol/L (3.3-5.1); Sodium 139 mmol/L (135-145); Total Protein 6.4 g/dL (6.5-8.0)
--- NOTE | 2025-03-11 11:17 | HO.PM.IMPN ---
Subjective Subjective Date of Service: 03/11/25 Interval History: Patient seen examined at bedside this morning, patient states that she began with more nausea and vomiting after eating this morning. Continues on IV antibiotics. Seen by Infectious Disease, suggested likely set secondary to cholelithiasis. Review of Systems Review of Systems: Yes all other systems are reviewed and are negative Physical Exam Exam: Exam: General: AxOx3, No acute distress Head: AT/NC ENT: Moist mucous membranes Neck: supple CVS; RRR, S1 S2 normal Lungs: Clear bilateral breath sounds, no wheezes or crackles Abd: Soft, mild tenderness Ext: No edema and no calf tenderness MSK: moving all 4 limbs Skin: No cyanosis or edema Psych: Cooperative with exam Neurology: no focal deficit Vital Signs: Vital Signs: Last Vital Signs Temp 98.1 F 03/11/25 07:48 Pulse 70 03/11/25 07:48 Resp 16 03/11/25 07:48 BP 130/67 03/11/25 07:48 Pulse Ox 93 03/11/25 07:48 O2 Del Method Room Air 03/11/25 07:48 O2 Flow Rate 2 03/09/25 23:21 BMI result Body Mass Index 37.1 Objective Data Active Medications Albuterol/Ipratropium (Albuterol/Iprat 2.5/0.5mg 3 Ml Ampul.Neb) 3 ml INHALE Q4H PRN PRN Reason: Shortness of Breath/Wheezing Atenolol (Atenolol 50 Mg Tablet) 50 mg PO DAILY EUGENIO; Protocol Last Admin: 03/11/25 07:57 Dose: 50 mg Documented By: MAUREEN Bisacodyl (Bisacodyl 10 Mg Supp.Rect) 10 mg [place] BEDTIME PRN PRN Reason: Constipation Calcium Carbonate (Calcium Carbonate 750 Mg Tab.Chew) 750 mg PO Q4H PRN PRN Reason: Heartburn Last Admin: 03/11/25 03:28 Dose: 750 mg Documented By: MASOOD Doxazosin Mesylate (Doxazosin Mesylate 2 Mg Tablet) 2 mg PO BEDTIME EUGENIO; Protocol Last Admin: 03/10/25 21:59 Dose: 2 mg Documented By: LEO Enoxaparin Sodium (Enoxaparin Sodium 40 Mg/0.4 Ml Syringe) 40 mg SUBCUT Q24H EUGEN[facility] Last Admin: 03/11/25 07:59 Dose: 40 mg Documented By: MAUREEN Folic Acid (Folic Acid 1 Mg Tablet) 2 mg PO DAILY [facility] Last Admin: 03/11/25 07:56 Dose: 2 mg Documented By: MAUREEN Furosemide (Furosemide 40 Mg Tablet) 40 mg PO DAILY [facility]; Protocol Last Admin: 03/11/25 07:58 Dose: 40 mg Documented By: MAUREEN Hydralazine HCl (Hydralazine Hcl 20 Mg/Ml Vial) 5 mg IVPUSH Q6H PRN; Protocol PRN Reason: SBP > 160 Last Admin: 03/11/25 00:22 Dose: 5 mg Documented By: MASOOD Hydromorphone HCl (Hydromorphone Hcl 1 Mg/Ml Syringe) 0.5 mg IVPUSH Q4H PRN; Protocol PRN Reason: Pain, Severe (Pain Scale 7-10) Last Admin: 03/09/25 07:44 Dose: 0.5 mg Documented By: DEISI Piperacillin Sod/Tazobactam (Sod 3.375 gm/ Sodium Chloride) 50 mls @ 100 mls/hr IV Q6H [facility] Last Infusion: 03/11/25 09:39 Dose: Infused Documented By: MAUREEN Magnesium Hydroxide (Milk Of Magnesia 30 Ml Oral.Susp) 30 ml PO DAILY PRN PRN Reason: Constipation Magnesium Oxide (Magnesium Oxide 400 Mg Tablet) 400 mg PO DAILY [facility] Last Admin: 03/11/25 07:57 Dose: 400 mg Documented By: MAUREEN Melatonin (Melatonin 3 Mg Tablet) 6 mg PO BEDTIME PRN PRN Reason: Insomnia Last Admin: 03/08/25 23:08 Dose: 6 mg Documented By: SARA Multivitamins/Vitamin C (Multivitamin Tablet) 1 tab PO DAILY [facility] Last Admin: 03/11/25 07:56 Dose: 1 tab Documented By: MAUREEN Omeprazole (Omeprazole 40 Mg Capsule.Dr) 40 mg PO DAILY@0630 [facility] Last Admin: 03/11/25 05:40 Dose: 40 mg Documented By: MASOOD Ondansetron HCl (Ondansetron Hcl 4 Mg/2 Ml Vial) 4 mg IVPUSH Q8H PRN PRN Reason: Nausea and Vomiting Last Admin: 03/11/25 00:25 Dose: 4 mg Documented By: ALEXQC Oxycodone HCl (Oxycodone Hcl Immed Release 5 Mg Tablet) 20 mg PO Q4H PRN PRN Reason: Pain, Moderate(Pain Scale 4-6) Last Admin: 03/11/25 07:55 Dose: 20 mg Documented By: MAUREEN Polyethylene Glycol (Polyethylene Glycol 3350 17 Gm Powd.Pack) 17 gm PO DAILY PRN PRN Reason: Constipation Prednisone (Prednisone 1 Mg Tablet) 4 mg PO DAILY [facility] Last Admin: 03/11/25 07:58 Dose: 4 mg Documented By: MAUREEN Pregabalin (Pregabalin 200 Mg Capsule) 200 mg PO BID [facility] Last Admin: 03/11/25 07:57 Dose: 200 mg Documented By: MAUREEN Senna (Sennosides 8.6 Mg Tablet) 17.2 mg PO BEDTIME [facility] Last Admin: 03/10/25 21:59 Dose: 17.2 mg Documented By: LEO Sodium Chloride (0.9 % Sodium Chloride Flush 3 Ml Syringe) 3 ml IVFLUSH QSHIFT [facility] Last Admin: 03/11/25 07:59 Dose: 3 ml Documented By: MAUREEN Thiamine HCl (Thiamine Hcl 100 Mg Tablet) 50 mg PO DAILY [facility] Last Admin: 03/11/25 07:56 Dose: 50 mg Documented By: MAUREEN Vitamin D (Cholecalciferol (Vitamin D3) 25 Mcg Tablet) 25 mcg PO DAILY [facility] Last Admin: 03/11/25 07:58 Dose: 25 mcg Documented By: MAUREEN Labs 03/10/25 08:29 03/11/25 08:43 Labs: Laboratory Results - last 24 hr 03/11/25 08:43 Anion Gap 12 Estim Creat Clear Calc 39.4 Estimated GFR 37 Random Glucose 97 Calcium 8.6 Total Bilirubin 0.7 AST 68 H ALT 115 H Alkaline Phosphatase 148 H Total Protein 6.4 L Albumin 3.0 L Microbiology Microbiology Results: Microbiology 03/08/25 12:46 Blood Culture - Preliminary Blood - Venous No growth after 48 hours. 03/08/25 12:46 Blood Culture - Preliminary Blood - Venous No growth after 48 hours. 03/08/25 Unknown Urine Culture - Final Urine clean catch - Clean Catch Midstream Escherichia coli Assessment and Plan (1) Peripheral artery disease: Status: Acute (2) Infrarenal abdominal aortic aneurysm (AAA) without rupture: Status: Acute (3) Transaminitis: Status: Acute (4) Cholelithiasis: Status: Acute (5) Elevated LFTs: Status: Acute (6) Acute cystitis: Status: Acute (7) Lower extremity weakness: Status: Acute Plan 75-year-old female with a complex history including hypertension, CHF (HFpEF), COPD (on nocturnal O2), ESBL UTI, RA on chronic opioids, hypothyroidism, obesity, infrarenal AAA, and left TKR, admitted for acute RUQ/epigastric pain, nausea/vomiting, and inability to tolerate oral medications, found to have acute cystitis (ESBL), transaminitis with imaging concerning for cholecystitis, and a growing infrarenal AAA, now stable on the medical floor. Acute Cholelithiasis with elevated liver enzymes UTI -Imaging reviewed, MRCP w/ cholecystitis -Continue Zosyn at this time, serial LFTs -Per ID continue Abs, transtition to PO augmentin on d/c -Per General surgery, outpatient elective cholecystectomy per patients wishes. -Monitor for any fecer. Infrarenal Abdominal Aortic Aneurysm (AAA) ? 4.5 cm, stable, no rupture Course:?Known AAA, increased from 4.0 cm (10/2024) to 4.5 cm. No leak on CT. No vascular follow-up. BP controlled, renal function stable. Vascular surgery consulted. Plan: Vascular surgery recs on outpatient follow up and conservative tx at this time. Strict BP control (goal <130/80). Avoid heavy lifting/straining. Monitor for abdominal/back pain, hypotension. Immobility / S/P Left TKR / Chronic Pain / Fall Risk Course:?Wheelchair-bound, unable to ambulate, left knee swelling, chronic pain on high-dose oxycodone, history of stable medial femoral condyle fracture, negative for acute DVT (venous duplex negative), negative for new fracture (x-ray). Plan PT/OT evaluation for mobility and safe transfer. Strict fall precautions, bed/chair alarms. Continue bowel regimen. Pain management: continue home regimen, consider opioid weaning plan, consult pain management outpatient. Case management to ensure safe discharge plan (home services, equipment) Heart Failure with Preserved Ejection Fraction (HFpEF) Course:?History of CHF, BNP 2531, no acute decompensation, on furosemide, fluid restriction, daily weights, last echo (04/2024) with?intra-atrial shunt. Plan: Continue furosemide 40 mg daily. Fluid restriction 1.5 L/day. Daily weights, strict I/Os. Low-sodium diet. Repeat echo ordered. COPD (on nocturnal O2) Course:?No acute exacerbation, uses 2-3L O2 at night, no RUDY, no current respiratory distress. Plan: Continue home O2 at night. PRN duonebs. Monitor for hypoxia, respiratory distress. Avoid sedating medications. Hypertension Course:?BP controlled on atenolol, history of severe hypertension on ED arrival (improved after pain control). Plan: Continue atenolol, monitor BP. Hold for SBP <90 or HR <60. Low-sodium diet. Hypothyroidism Course:?Stable, TSH WNL, on levothyroxine. Plan: Continue levothyroxine 50 mcg daily. Chronic Pain / RA / Fibromyalgia Course:?On chronic oxycodone, methotrexate, prednisone, pregabalin. Admits to opioid dependence. No acute joint swelling. Plan: Continue home pain regimen. Bowel regimen. Encourage outpatient pain management referral. Monitor for opioid withdrawal. Depression Course:?On bupropion, mood stable. Plan: Continue bupropion. Monitor for mood changes. Obesity (BMI 44.3) Course:?Contributes to immobility, RUDY risk. Plan: Encourage weight management counseling as outpatient. Lymphedema / Left Leg Edema Course:?Chronic, no DVT, no cellulitis. Plan: Elevate leg, compression as tolerated. Monitor for skin breakdown. GERD Course:?On omeprazole. Plan: Continue omeprazole at increased dose per surgery recs Osteomyelitis (remote) Course:?No current evidence of active infection. Plan: Monitor for signs of recurrence. [employer] VTE Prophylaxis: Enoxaparin 40 mg qd SQ Code Status: Full code Diet: Low sodium, regular as tolerated Total time managing care of this patient today: 45 minutes. Quality Stroke Does the patient have a stroke diagnosis?: No Reason for No Anti-thrombotic by Day Two: N/A - Med Ordered VTE Prior VTE?: No VTE Risk Level:: Medical - moderate - high VTE Device Contraindication: N/A - Device Ordered VTE Drug Contraindication: N/A - Med Ordered
--- NOTE | 2025-03-11 13:09 | PM.CNGS ---
History of Present Illness Consult details Consult date: 03/11/25 Reason for consult: other (AAA) Narrative: Very pleasant 75-year-old female presents to the hospital regarding right upper quadrant pain. A past medical history significant for hypertension hyperlipidemia and lymphedema. She is admitted for suspected acute cholecystitis. Upon workup and CAT scan she was noted to have an infrarenal aortic aneurysm of a proximally 4.5 cm. This has been known in the past. Has increased from previous CAT scan on 10/2024 where it measured about 4 cm. Of note she had been followed by Dr. Mcnulty at [facility] regarding lymphedema. She now presents to us for vascular evaluation Review of Systems Review of Systems: Yes all other systems are reviewed and are negative Constitutional: Constitutional: Reports no additional constitutional complaints ENT: Reports Normal hearing present Cardiovascular: Cardiovascular: Denies chest pain, Denies chest pain at rest, Denies chest pain with activity and Denies pedal edema Respiratory: Respiratory: Denies cough Gastrointestinal: Gastrointestinal: Denies abdominal pain Musculoskeletal: Musculoskeletal: Denies abnormal gait, Denies muscle cramps and Denies radiating pain into limb Integumentary/Breasts: Skin/Breast: Denies skin ulcer and Denies wounds Neurologic: Reports Normal hearing present and Denies abnormal gait Psychiatric: Psychiatric: Reports no additional psychiatric complaints PMFSH Past Medical History Medical History Hypertension Oxygen dependent Urinary tract infection due to extended-spectrum beta lactamase (ESBL) producing Escherichia coli Osteomyelitis COPD (chronic obstructive pulmonary disease) Hypothyroidism Congestive heart failure Fibromyalgia Depression Rheumatoid arthritis Family History Family History Father No problems noted. Other Heart disease Family history: reviewed and not pertinent Surgical History Surgical History Hx of prior ablation treatment Knee joint replacement status Social History Social History Household Members: None Household Members Other:: 0 Housing: Apartment Housing Other:: 1st floor Do you presently have visiting nurse or other home services: Yes Alcohol intake: never Comment: bedside commode Patient Tobacco Use Status: Former Tobacco user Tobacco use type: Cigarette e-Cigarette/Vaping Use: Never Used Second Hand Smoke Exposure: No Advance Directives Date on File: 10/19/23 service: No Travel History Ebola Risk: Travel/Contact With Anyone From Affected Area/s: No Has Patient Experienced Ebola Symptoms: No Meds Allergies Allergy/AdvReac Type Severity Reaction Status Date / Time lisinopril (LISINOPRIL) Allergy Severe ANAPHYLAXIS Verified 03/08/25 11:23 Sulfa (Sulfonamide Allergy Intermediate RASH Verified 03/08/25 11:23 Antibiotics) (SULFA (SULFONAMIDE ANTIBIOTICS)) tramadol (TRAMADOL) Allergy Intermediate RASH Verified 03/08/25 11:23 [id number] Reductase Allergy Rash Verified 03/08/25 11:23 Inhibitor (Ulhuhvh-Ikm-Gxj Reductase Inhibitor) hydrochlorothiazide (HCTZ) AdvReac Unknown ABNORMAL Verified 03/08/25 11:23 LABS? Active Medications: Current Medications Albuterol/Ipratropium (Albuterol/Iprat 2.5/0.5mg 3 Ml Ampul.Neb) 3 ml INHALE Q4H PRN PRN Reason: Shortness of Breath/Wheezing Atenolol (Atenolol 50 Mg Tablet) 50 mg PO DAILY EUGENIO; Protocol Last Admin: 03/11/25 07:57 Dose: 50 mg Bisacodyl (Bisacodyl 10 Mg Supp.Rect) 10 mg [place] BEDTIME PRN PRN Reason: Constipation Calcium Carbonate (Calcium Carbonate 750 Mg Tab.Chew) 750 mg PO Q4H PRN PRN Reason: Heartburn Last Admin: 03/11/25 03:28 Dose: 750 mg Doxazosin Mesylate (Doxazosin Mesylate 2 Mg Tablet) 2 mg PO BEDTIME EUGENIO; Protocol Last Admin: 03/10/25 21:59 Dose: 2 mg Enoxaparin Sodium (Enoxaparin Sodium 40 Mg/0.4 Ml Syringe) 40 mg SUBCUT Q24H EUGENIO Last Admin: 03/11/25 07:59 Dose: 40 mg Folic Acid (Folic Acid 1 Mg Tablet) 2 mg PO DAILY EUGENIO Last Admin: 03/11/25 07:56 Dose: 2 mg Furosemide (Furosemide 40 Mg Tablet) 40 mg PO DAILY EUGENIO; Protocol Last Admin: 03/11/25 07:58 Dose: 40 mg Hydralazine HCl (Hydralazine Hcl 20 Mg/Ml Vial) 5 mg IVPUSH Q6H PRN; Protocol PRN Reason: SBP > 160 Last Admin: 03/11/25 00:22 Dose: 5 mg Hydromorphone HCl (Hydromorphone Hcl 1 Mg/Ml Syringe) 0.5 mg IVPUSH Q4H PRN; Protocol PRN Reason: Pain, Severe (Pain Scale 7-10) Last Admin: 03/09/25 07:44 Dose: 0.5 mg Piperacillin Sod/Tazobactam (Sod 3.375 gm/ Sodium Chloride) 50 mls @ 100 mls/hr IV Q6H [facility] Last Infusion: 03/11/25 09:39 Dose: Infused Magnesium Hydroxide (Milk Of Magnesia 30 Ml Oral.Susp) 30 ml PO DAILY PRN PRN Reason: Constipation Magnesium Oxide (Magnesium Oxide 400 Mg Tablet) 400 mg PO DAILY [facility] Last Admin: 03/11/25 07:57 Dose: 400 mg Melatonin (Melatonin 3 Mg Tablet) 6 mg PO BEDTIME PRN PRN Reason: Insomnia Last Admin: 03/08/25 23:08 Dose: 6 mg Multivitamins/Vitamin C (Multivitamin Tablet) 1 tab PO DAILY [facility] Last Admin: 03/11/25 07:56 Dose: 1 tab Omeprazole (Omeprazole 40 Mg Capsule.Dr) 40 mg PO DAILY@0630 [facility] Last Admin: 03/11/25 05:40 Dose: 40 mg Ondansetron HCl (Ondansetron Hcl 4 Mg/2 Ml Vial) 4 mg IVPUSH Q8H PRN PRN Reason: Nausea and Vomiting Last Admin: 03/11/25 00:25 Dose: 4 mg Oxycodone HCl (Oxycodone Hcl Immed Release 5 Mg Tablet) 20 mg PO Q4H PRN PRN Reason: Pain, Moderate(Pain Scale 4-6) Last Admin: 03/11/25 07:55 Dose: 20 mg Polyethylene Glycol (Polyethylene Glycol 3350 17 Gm Powd.Pack) 17 gm PO DAILY PRN PRN Reason: Constipation Prednisone (Prednisone 1 Mg Tablet) 4 mg PO DAILY [facility] Last Admin: 03/11/25 07:58 Dose: 4 mg Pregabalin (Pregabalin 200 Mg Capsule) 200 mg PO BID [facility] Last Admin: 03/11/25 07:57 Dose: 200 mg Senna (Sennosides 8.6 Mg Tablet) 17.2 mg PO BEDTIME [facility] Last Admin: 03/10/25 21:59 Dose: 17.2 mg Sodium Chloride (0.9 % Sodium Chloride Flush 3 Ml Syringe) 3 ml IVFLUSH QSHIFT [facility] Last Admin: 03/11/25 07:59 Dose: 3 ml Thiamine HCl (Thiamine Hcl 100 Mg Tablet) 50 mg PO DAILY [facility] Last Admin: 03/11/25 07:56 Dose: 50 mg Vitamin D (Cholecalciferol (Vitamin D3) 25 Mcg Tablet) 25 mcg PO DAILY [facility] Last Admin: 03/11/25 07:58 Dose: 25 mcg Home Medications ?Medication ?Instructions ?Recorded ?Confirmed ?Last Taken ?Type methotrexate sodium 2.5 mg tablet 25 mg PO WE@0900 08/23/21 03/09/25 02/11/25 History omeprazole 40 mg capsule,delayed 40 mg PO DAILY@0630 08/23/21 03/09/25 02/17/25 History release prednisone 1 mg tablet 4 mg PO DAILY 08/23/21 03/09/25 02/17/25 History pregabalin 200 mg capsule 200 mg PO BID 01/07/23 03/09/25 02/17/25 History folic acid 1 mg tablet 2 mg PO DAILY 10/13/23 03/09/25 02/17/25 History acetaminophen 325 mg tablet 650 mg PO Q4H PRN Moderate Pain 03/04/24 03/09/25 Unknown History (Tylenol) (Scale Score 5-6) melatonin 10 mg tablet 10 mg PO BEDTIME PRN Sleep 05/03/24 03/09/25 Unknown History multivitamin 1 tab PO DAILY 05/03/24 03/09/25 02/17/25 History atenolol 25 mg tablet 50 mg PO DAILY 08/29/24 03/09/25 02/17/25 History furosemide 40 mg tablet 40 mg PO DAILY PRN Edema 10/07/24 03/09/25 02/17/25 History cholecalciferol (vitamin D3) 25 25 mcg PO DAILY 02/19/25 03/09/25 02/17/25 History mcg (1,000 unit) capsule doxazosin 2 mg tablet 2 mg PO BEDTIME 03/09/25 03/09/25 Unknown History magnesium oxide 400 mg PO DAILY 03/09/25 03/09/25 Unknown History thiamine HCl (vitamin B1) 50 mg 50 mg PO DAILY 03/09/25 03/09/25 Unknown History tablet Physical Exam Vital Signs: Vital Signs: Last Vital Signs Temp 98.1 F 03/11/25 07:48 Pulse 60 03/11/25 12:00 Resp 18 03/11/25 12:00 BP 118/61 03/11/25 12:00 Pulse Ox 95 03/11/25 12:00 O2 Del Method Room Air 03/11/25 12:00 O2 Flow Rate 2 03/09/25 23:21 BMI result Body Mass Index 37.1 Const: General: cooperative, healthy appearing and comfortable Orientation/consciousness: oriented to person, oriented to place and oriented to time HEENT: Head: Yes normal to inspection Neck: Neck: Yes normal visual inspection Carotids: no bruits Chest: Chest palpation & inspection: normal inspection of the chest Resp: Effort & Inspection: normal respiratory effort and able to speak in complete sentences Auscultation: clear to auscultation bilaterally, no crackles, no rales, no rhonchi and no wheezes Cardio: Rate: regular rate Rhythm: regular rhythm Heart sounds: S1 normal heart sound present and S2 normal heart sound present Bruits: no carotid bruits Peripheral pulses: Peripheral pulses 2+ throughout GI: Inspection: Yes normal to inspection Skin: Wounds: no wounds Hair: normal Neuro: General: oriented to person, oriented to place and oriented to time Cranial nerves: Yes CN's II-XII intact bilaterally and Yes Normal hearing present Cognition (Neuro): normal cognition Motor exam (neuro): 5/5 motor strength present throughout Extrem: Other: venous exam: No significant superficial varicosities or spider telangiectasias, minimal edema General: No clubbing, No cyanosis and No edema Psych: Appearance: grossly normal Mental Status: mental status grossly normal Speech and movement: Normal speech and movement present Results Labs 03/10/25 08:29 03/11/25 08:43 Labs: Abnormal lab results 03/11/25 Range/Units 08:43 BUN 20 H (9-16) mg/dL AST 68 H (5-31) U/L ALT 115 H (0-31) U/L Alkaline Phosphatase 148 H (39-117) U/L Total Protein 6.4 L (6.5-8.0) g/dL Albumin 3.0 L (3.5-5.0) g/dL BMP 03/11/25 08:43 Sodium 139 Potassium 4.1 Chloride 106 Carbon Dioxide 25 BUN 20 H Creatinine 1.39 Calcium 8.6 Liver Function 03/11/25 Range/Units 08:43 Total Bilirubin 0.7 (0.0-1.0) mg/dL AST 68 H (5-31) U/L ALT 115 H (0-31) U/L Alkaline Phosphatase 148 H (39-117) U/L Albumin 3.0 L (3.5-5.0) g/dL Urine 03/08/25 Range/Units 12:04 Urine Color Yellow Urine Appearance Cloudy Urine pH 8.5 (5.0-9.0) Ur Specific [place] 1.010 (1.005-1.025) Urine Protein Trace (Neg-Trace) mg/dL Urine Glucose (UA) Negative (Negative) mg/dL All other labs normal. Assessment and Plan (1) Infrarenal abdominal aortic aneurysm (AAA) without rupture: Status: Acute In short patient has radiologic evidence of a AAA on 4.[address] scan. We have discussed the pathophysiology of aortic aneurysms and the risk of ruptures. We have discussed rupture risk based on size. In addition we have discussed conservative measures and risk factor modification for prevention of increase in size of the aneurysm. the patient can follow up with us once discharged as an outpatient. Thank you for allowing us to participate in this patient's care. If there are any questions or concerns please do not hesitate to contact us. (2) Lymphedema: Status: Acute Plan At the current time would manage this conservatively. Once discharged she can follow-up as an outpatient and we can be more aggressive about treating this with the possibility of lymphedema pumps as she has been evaluated by [facility] vascular for this in the past. Thank you for allowing us to assist in her care. If there are any questions or concerns please do not hesitate to contact us. Procedures Date of Service Date of Service: 03/11/25
[2025-03-12] VITALS (7 sets, daily range): BP systolic 115–138; BP diastolic 55–66; PULSE 63–68; RESP 18; TEMP 36.3–36.8; O2SAT 93–97; BMI 36.5
[2025-03-12] MEDS: oxyCODONE HCl Immed Release 5 MG TABLET 20 MG PO ×5 (03:07→18:35)
--- NOTE | 2025-03-12 08:17 | PM.PNGS ---
Subjective Subjective Date of Service: 03/12/25 Interval history: denies pain but still complaining of indigestion, struggling with diet, only able to take in small amounts. Physical Exam Vital Signs: Vital Signs: Last Vital Signs Temp 98.2 F 03/12/25 07:56 Pulse 65 03/12/25 07:56 Resp 18 03/12/25 07:56 BP 134/63 03/12/25 07:56 Pulse Ox 96 03/12/25 07:56 O2 Del Method Nasal Cannula 03/12/25 07:56 O2 Flow Rate 2.0 03/12/25 07:56 BMI result Body Mass Index 36.5 Const: General: comfortable and no acute distress Orientation/consciousness: patient oriented x3 GI: Inspection: No distended Palpation (GI): Soft to palpation and Tenderness to palpation present (GI) (mild generalized) Neuro: General: patient oriented x3 Objective Data Active Medications Albuterol/Ipratropium (Albuterol/Iprat 2.5/0.5mg 3 Ml Ampul.Neb) 3 ml INHALE Q4H PRN PRN Reason: Shortness of Breath/Wheezing Atenolol (Atenolol 50 Mg Tablet) 50 mg PO DAILY EUGENIO; Protocol Last Admin: 03/11/25 07:57 Dose: 50 mg Documented By: MAUREEN Bisacodyl (Bisacodyl 10 Mg Supp.Rect) 10 mg [place] BEDTIME PRN PRN Reason: Constipation Calcium Carbonate (Calcium Carbonate 750 Mg Tab.Chew) 750 mg PO Q4H PRN PRN Reason: Heartburn Last Admin: 03/11/25 16:19 Dose: 750 mg Documented By: MAUREEN Doxazosin Mesylate (Doxazosin Mesylate 2 Mg Tablet) 2 mg PO BEDTIME EUGENIO; Protocol Last Admin: 03/11/25 20:30 Dose: 2 mg Documented By: GRIFFIN Enoxaparin Sodium (Enoxaparin Sodium 40 Mg/0.4 Ml Syringe) 40 mg SUBCUT Q24H EUGENIO Last Admin: 03/11/25 07:59 Dose: 40 mg Documented By: MAUREEN Folic Acid (Folic Acid 1 Mg Tablet) 2 mg PO DAILY EUGENIO Last Admin: 03/12/25 06:32 Dose: 2 mg Documented By: MIKE Furosemide (Furosemide 40 Mg Tablet) 40 mg PO DAILY EUGENIO; Protocol Last Admin: 03/11/25 07:58 Dose: 40 mg Documented By: MAUREEN Hydralazine HCl (Hydralazine Hcl 20 Mg/Ml Vial) 5 mg IVPUSH Q6H PRN; Protocol PRN Reason: SBP > 160 Last Admin: 03/11/25 00:22 Dose: 5 mg Documented By: MASOOD Hydromorphone HCl (Hydromorphone Hcl 1 Mg/Ml Syringe) 0.5 mg IVPUSH Q4H PRN; Protocol PRN Reason: Pain, Severe (Pain Scale 7-10) Last Admin: 03/12/25 01:43 Dose: 0.5 mg Documented By: GRIFFIN Ertapenem 1 gm/ Sodium (Chloride) 50 mls @ 100 mls/hr IV DAILY [facility] Stop: 03/17/25 08:59 Magnesium Hydroxide (Milk Of Magnesia 30 Ml Oral.Susp) 30 ml PO DAILY PRN PRN Reason: Constipation Magnesium Oxide (Magnesium Oxide 400 Mg Tablet) 400 mg PO DAILY [facility] Last Admin: 03/12/25 06:32 Dose: 400 mg Documented By: MIKE Melatonin (Melatonin 3 Mg Tablet) 6 mg PO BEDTIME PRN PRN Reason: Insomnia Last Admin: 03/12/25 01:43 Dose: 6 mg Documented By: GRIFFIN Multivitamins/Vitamin C (Multivitamin Tablet) 1 tab PO DAILY [facility] Last Admin: 03/11/25 07:56 Dose: 1 tab Documented By: MAUREEN Omeprazole (Omeprazole 40 Mg Capsule.Dr) 40 mg PO BID [facility] Last Admin: 03/11/25 20:30 Dose: 40 mg Documented By: GRIFFIN Ondansetron HCl (Ondansetron Hcl 4 Mg/2 Ml Vial) 4 mg IVPUSH Q8H PRN PRN Reason: Nausea and Vomiting Last Admin: 03/11/25 18:13 Dose: 4 mg Documented By: MAUREEN Oxycodone HCl (Oxycodone Hcl Immed Release 5 Mg Tablet) 20 mg PO Q4H PRN PRN Reason: Pain, Moderate(Pain Scale 4-6) Last Admin: 03/12/25 06:32 Dose: 20 mg Documented By: MIKE Polyethylene Glycol (Polyethylene Glycol 3350 17 Gm Powd.Pack) 17 gm PO DAILY PRN PRN Reason: Constipation Prednisone (Prednisone 1 Mg Tablet) 4 mg PO DAILY [facility] Last Admin: 03/11/25 07:58 Dose: 4 mg Documented By: MAUREEN Pregabalin (Pregabalin 200 Mg Capsule) 200 mg PO BID [facility] Last Admin: 03/11/25 20:30 Dose: 200 mg Documented By: GRIFFIN Senna (Sennosides 8.6 Mg Tablet) 17.2 mg PO BEDTIME [facility] Last Admin: 03/11/25 20:30 Dose: 17.2 mg Documented By: GRIFFIN Sodium Chloride (0.9 % Sodium Chloride Flush 3 Ml Syringe) 3 ml IVFLUSH QSHIFT [facility] Last Admin: 03/12/25 06:35 Dose: Not Given Documented By: MIKE Non-Admin Reason: Previously Administered Thiamine HCl (Thiamine Hcl 100 Mg Tablet) 50 mg PO DAILY [facility] Last Admin: 03/11/25 07:56 Dose: 50 mg Documented By: MAUREEN Vitamin D (Cholecalciferol (Vitamin D3) 25 Mcg Tablet) 25 mcg PO DAILY [facility] Last Admin: 03/12/25 06:32 Dose: 25 mcg Documented By: MIKE Labs 03/10/25 08:29 03/11/25 08:43 Labs: Laboratory Results - last 24 hr 03/11/25 08:43 Anion Gap 12 Estim Creat Clear Calc 39.4 Estimated GFR 37 Random Glucose 97 Calcium 8.6 Total Bilirubin 0.7 AST 68 H ALT 115 H Alkaline Phosphatase 148 H Total Protein 6.4 L Albumin 3.0 L Procedures Date of Service Date of Service: 03/12/25 Progress Note: A&P Assessment and plan (1) Elevated LFTs: Status: Acute (2) Cholelithiasis: Status: Acute Plan 75-year-old female admitted for right upper quadrant pain, nausea vomiting with elevated LFTs. Followed by General surgery for cholecystitis. Patient continues to prefer conservative management with antibiotics. Today feeling okay, the same as yesterday. She is denying pain, complaining of some indigestion after meals yesterday. Otherwise tolerating regular diet. She denies further nausea or vomiting. After some discussion with patient regarding her options including her recommendations proceed with cholecystectomy patient would prefer to avoid surgery during this admission and follow up as an outpatient for elective cholecystectomy. However she was willing to agree to elective surgical intervention in the future. On exam there abdomen soft and benign. She looks well. Continue with regular diet at this point general surgery will sign off as patient does not want surgery during this admission. Would continue antiemetics will inpatient, trend liver enzymes. She is okay to continue with diet as tolerated and is encouraged to ambulate as tolerated as well. She should follow up with us in the office after discharge, recommend low-fat diet Time Spent With Patient Time: Total time managing care of this patient today ____ minutes. Quality Stroke Does the patient have a stroke diagnosis?: No Reason for No Anti-thrombotic by Day Two: N/A - Med Ordered VTE Prior VTE?: No VTE Risk Level:: Medical - moderate - high VTE Device Contraindication: N/A - Device Ordered VTE Drug Contraindication: N/A - Med Ordered
--- NOTE | 2025-03-12 09:44 | P.PNIM_ITS ---
Subjective Subjective Date of Service: 03/12/25 Interval History: Patient seen examined at bedside this morning, mentioned that pain has improved, does not wish to have surgery done as she has personal/family matters to attend to. Urine culture positive for E coli ESBL. Review of Systems Review of Systems: Yes all other systems are reviewed and are negative Physical Exam 2 Exam: Exam: General: AxOx3, No acute distress Head: AT/NC ENT: Moist mucous membranes Neck: supple CVS; RRR, S1 S2 normal Lungs: Clear bilateral breath sounds, no wheezes or crackles Abd: Soft, mild tenderness Ext: No edema and no calf tenderness MSK: moving all 4 limbs Skin: No cyanosis or edema Psych: Cooperative with exam Neurology: no focal deficit Vital Signs: Vital Signs: Last Vital Signs Temp 98.2 F 03/12/25 07:56 Pulse 65 03/12/25 07:56 Resp 18 03/12/25 07:56 BP 134/63 03/12/25 07:56 Pulse Ox 96 03/12/25 07:56 O2 Del Method Nasal Cannula 03/12/25 07:56 O2 Flow Rate 2.0 03/12/25 07:56 BMI result Body Mass Index 36.5 Objective Data Active Medications Albuterol/Ipratropium (Albuterol/Iprat 2.5/0.5mg 3 Ml Ampul.Neb) 3 ml INHALE Q4H PRN PRN Reason: Shortness of Breath/Wheezing Atenolol (Atenolol 50 Mg Tablet) 50 mg PO DAILY EUGENIO; Protocol Last Admin: 03/12/25 08:28 Dose: 50 mg Documented By: MIKE Bisacodyl (Bisacodyl 10 Mg Supp.Rect) [address] BEDTIME PRN PRN Reason: Constipation Calcium Carbonate (Calcium Carbonate 750 Mg Tab.Chew) 750 mg PO Q4H PRN PRN Reason: Heartburn Last Admin: 03/11/25 16:19 Dose: 750 mg Documented By: MAUREEN Doxazosin Mesylate (Doxazosin Mesylate 2 Mg Tablet) 2 mg PO BEDTIME EUGENIO; Protocol Last Admin: 03/11/25 20:30 Dose: 2 mg Documented By: LYSBraxton Enoxaparin Sodium (Enoxaparin Sodium 40 Mg/0.4 Ml Syringe) 40 mg SUBCUT Q24H EUGENIO Last Admin: 03/12/25 08:33 Dose: 40 mg Documented By: MIKE Folic Acid (Folic Acid 1 Mg Tablet) 2 mg PO DAILY [facility] Last Admin: 03/12/25 06:32 Dose: 2 mg Documented By: MIKE Furosemide (Furosemide 40 Mg Tablet) 40 mg PO DAILY [facility]; Protocol Last Admin: 03/11/25 07:58 Dose: 40 mg Documented By: MAUREEN Hydralazine HCl (Hydralazine Hcl 20 Mg/Ml Vial) 5 mg IVPUSH Q6H PRN; Protocol PRN Reason: SBP > 160 Last Admin: 03/11/25 00:22 Dose: 5 mg Documented By: MASOOD Hydromorphone HCl (Hydromorphone Hcl 1 Mg/Ml Syringe) 0.5 mg IVPUSH Q4H PRN; Protocol PRN Reason: Pain, Severe (Pain Scale 7-10) Last Admin: 03/12/25 08:27 Dose: 0.5 mg Documented By: MIKE Magnesium Hydroxide (Milk Of Magnesia 30 Ml Oral.Susp) 30 ml PO DAILY PRN PRN Reason: Constipation Magnesium Oxide (Magnesium Oxide 400 Mg Tablet) 400 mg PO DAILY [facility] Last Admin: 03/12/25 06:32 Dose: 400 mg Documented By: MIKE Melatonin (Melatonin 3 Mg Tablet) 6 mg PO BEDTIME PRN PRN Reason: Insomnia Last Admin: 03/12/25 01:43 Dose: 6 mg Documented By: GRIFFIN Meropenem (Meropenem 1 Gm Vial) 1 gm IVPUSH Q12H [facility] Multivitamins/Vitamin C (Multivitamin Tablet) 1 tab PO DAILY [facility] Last Admin: 03/12/25 08:28 Dose: 1 tab Documented By: MIKE Omeprazole (Omeprazole 40 Mg Capsule.Dr) 40 mg PO BID [facility] Last Admin: 03/12/25 08:28 Dose: 40 mg Documented By: MIKE Ondansetron HCl (Ondansetron Hcl 4 Mg/2 Ml Vial) 4 mg IVPUSH Q8H PRN PRN Reason: Nausea and Vomiting Last Admin: 03/11/25 18:13 Dose: 4 mg Documented By: MAUREEN Oxycodone HCl (Oxycodone Hcl Immed Release 5 Mg Tablet) 20 mg PO Q4H PRN PRN Reason: Pain, Moderate(Pain Scale 4-6) Last Admin: 03/12/25 06:32 Dose: 20 mg Documented By: MIKE Polyethylene Glycol (Polyethylene Glycol 3350 17 Gm Powd.Pack) 17 gm PO DAILY PRN PRN Reason: Constipation Prednisone (Prednisone 1 Mg Tablet) 4 mg PO DAILY [facility] Last Admin: 03/11/25 07:58 Dose: 4 mg Documented By: MAUREEN Pregabalin (Pregabalin 200 Mg Capsule) 200 mg PO BID [facility] Last Admin: 03/12/25 08:28 Dose: 200 mg Documented By: MIKE Senna (Sennosides 8.6 Mg Tablet) 17.2 mg PO BEDTIME [facility] Last Admin: 03/11/25 20:30 Dose: 17.2 mg Documented By: LYSBraxton Sodium Chloride (0.9 % Sodium Chloride Flush 3 Ml Syringe) 3 ml IVFLUSH QSHIFT [facility] Last Admin: 03/12/25 06:35 Dose: Not Given Documented By: MIKE Non-Admin Reason: Previously Administered Thiamine HCl (Thiamine Hcl 100 Mg Tablet) 50 mg PO DAILY [facility] Last Admin: 03/11/25 07:56 Dose: 50 mg Documented By: MAUEREN Vitamin D (Cholecalciferol (Vitamin D3) 25 Mcg Tablet) 25 mcg PO DAILY [facility] Last Admin: 03/12/25 06:32 Dose: 25 mcg Documented By: MIKE Labs 03/10/25 08:29 03/11/25 08:43 Assessment and Plan (1) Peripheral artery disease: Status: Acute (2) Infrarenal abdominal aortic aneurysm (AAA) without rupture: Status: Acute (3) Transaminitis: Status: Acute (4) Cholelithiasis: Status: Acute (5) Elevated LFTs: Status: Acute (6) Acute cystitis: Status: Acute (7) Lower extremity weakness: Status: Acute Plan 75-year-old female with a complex history including hypertension, CHF (HFpEF), COPD (on nocturnal O2), ESBL UTI, RA on chronic opioids, hypothyroidism, obesity, infrarenal AAA, and left TKR, admitted for acute RUQ/epigastric pain, nausea/vomiting, and inability to tolerate oral medications, found to have acute cystitis (ESBL), transaminitis with imaging concerning for cholecystitis, and a growing infrarenal AAA, now stable on the medical floor. Acute Cholelithiasis with elevated liver enzymes UTI secondary to ESBL E Coli -Imaging reviewed, MRCP w/ cholecystitis -switch to meropenem from Zosyn at this time, given ESBL -Per General surgery, outpatient elective cholecystectomy per patients wishes. -Monitor for any fever. Infrarenal Abdominal Aortic Aneurysm (AAA) ? 4.5 cm, stable, no rupture Course:?Known AAA, increased from 4.0 cm (10/2024) to 4.5 cm. No leak on CT. No vascular follow-up. BP controlled, renal function stable. Vascular surgery consulted. Plan: * Vascular surgery recs on outpatient follow up and conservative tx at this time. * Strict BP control (goal <130/80). * Avoid heavy lifting/straining. * Monitor for abdominal/back pain, hypotension. Immobility / S/P Left TKR / Chronic Pain / Fall Risk Course:?Wheelchair-bound, unable to ambulate, left knee swelling, chronic pain on high-dose oxycodone, history of stable medial femoral condyle fracture, negative for acute DVT (venous duplex negative), negative for new fracture (x- ray). Plan * PT/OT evaluation for mobility and safe transfer. * Strict fall precautions, bed/chair alarms. * Continue bowel regimen. * Pain management: continue home regimen, consider opioid weaning plan, consult pain management outpatient. * Case management to ensure safe discharge plan (home services, equipment) Heart Failure with Preserved Ejection Fraction (HFpEF) Course:?History of CHF, BNP 2531, no acute decompensation, on furosemide, fluid restriction, daily weights, last echo (04/2024) with?intra-atrial shunt. Plan: * Continue furosemide 40 mg daily. * Fluid restriction 1.5 L/day. * Daily weights, strict I/Os. * Low-sodium diet. * Repeat echo ordered. COPD (on nocturnal O2) Course:?No acute exacerbation, uses 2-3L O2 at night, no RUDY, no current respiratory distress. Plan: * Continue home O2 at night. * PRN duonebs. * Monitor for hypoxia, respiratory distress. * Avoid sedating medications. Hypertension Course:?BP controlled on atenolol, history of severe hypertension on ED arrival (improved after pain control). Plan: * Continue atenolol, monitor BP. * Hold for SBP <90 or HR <60. * Low-sodium diet. Hypothyroidism Course:?Stable, TSH WNL, on levothyroxine. Plan: Continue levothyroxine 50 mcg daily. Chronic Pain / RA / Fibromyalgia Course:?On chronic oxycodone, methotrexate, prednisone, pregabalin. Admits to opioid dependence. No acute joint swelling. Plan: * Continue home pain regimen. * Bowel regimen. * Encourage outpatient pain management referral. * Monitor for opioid withdrawal. Depression Course:?On bupropion, mood stable. Plan: * Continue bupropion. * Monitor for mood changes. Obesity (BMI 44.3) Course:?Contributes to immobility, RUDY risk. Plan: * Encourage weight management counseling as outpatient. Lymphedema / Left Leg Edema Course:?Chronic, no DVT, no cellulitis. Plan: * Elevate leg, compression as tolerated. * Monitor for skin breakdown. GERD Course:?On omeprazole. Plan: * Continue omeprazole at increased dose per surgery recs Osteomyelitis (remote) Course:?No current evidence of active infection. Plan: * Monitor for signs of recurrence. [employer] * VTE Prophylaxis: Enoxaparin 40 mg qd SQ * Code Status: Full code * Diet: Low sodium, regular as tolerated Total time managing care of this patient today: 45 minutes. Quality Stroke Does the patient have a stroke diagnosis?: No Reason for No Anti-thrombotic by Day Two: N/A - Med Ordered VTE Prior VTE?: No VTE Risk Level:: Medical - moderate - high VTE Device Contraindication: N/A - Device Ordered VTE Drug Contraindication: N/A - Med Ordered
--- NOTE | 2025-03-12 14:38 | MHC.CM.PN ---
EMR REVIEWED AND PER MD ROUNDS, PT WILL NEED 5 DAYS IV MEREOPENAM ON DC , PROVIDER WILL ORDER A MIDLINE. CM MET WITH PT WHO IS ABLE TO MANAGE THE HOME IV WITH ASSIST OF HER DAUGHTER (HAS MANAGED IN NEAR PAST) [facility] AWARE, ID CONSULT REQUESTED. [facility] UPDATED VIA [facility]. CM WILL CONTINUE TO FOLLOW.
[2025-03-12] MEDS: 0.9 % Sodium Chloride Flush 3 ML SYRINGE IVFLUSH ×2 (17:17→22:01)
[2025-03-13] MEDS: oxyCODONE HCl Immed Release 5 MG TABLET 20 MG PO ×4 (01:31→21:32)
[2025-03-13 03:25] VITALS: BP 133/58; PULSE 72; RESP 16; TEMP 37; O2SAT 93
[2025-03-13 06:00] VITALS: BMI 36.8
[2025-03-13 06:30] LABS: Hematocrit 34.6 % (37.0-47.0); Hemoglobin 11.3 g/dl (12.0-16.0); Mean Corpuscular HGB Conc 32.7 g/dl (31.0-35.0); Mean Corpuscular Hemoglobin 30.1 pg (27.0-33.0); Mean Corpuscular Volume 92.0 fL (80.0-98.0); NRBC Abs Auto 0.020 X10*3/uL (0.0-0.012); NRBC Pct Auto 0.3 /100WBC (0.0-0.2); Platelet Count 152 X10*3/uL (160-400); Red Blood Count 3.76 X10*6/uL (4.20-5.50); White Blood Count 6.8 X10*3/uL (4.8-10.8)
[2025-03-13 06:52] LABS: Alanine Aminotransferase 65 U/L (0-31); Albumin Level 3.1 g/dL (3.5-5.0); Alkaline Phosphatase 126 U/L (39-117); Anion Gap 11 (12-20); Aspartate Amino Transferase 32 U/L (5-31); Blood Urea Nitrogen 29 mg/dL (9-16); Calcium 8.6 mg/dL (8.4-10.2); Carbon Dioxide 27 mmol/L (22-29); Chloride 105 mmol/L (96-108); Creatinine Clr Calc Pharmacy 42.3; Estimated Glomerular Filt Rate 41; Potassium 3.9 mmol/L (3.3-5.1); Sodium 139 mmol/L (135-145); Total Protein 6.6 g/dL (6.5-8.0)
[2025-03-13 07:20] VITALS: BP 124/59; PULSE 66; RESP 16; TEMP 36.3; O2SAT 94
[2025-03-13] MEDS: 0.9 % Sodium Chloride Flush 3 ML SYRINGE IVFLUSH ×3 (08:15→21:33)
--- NOTE | 2025-03-13 11:32 | P.PNIM_ITS ---
Subjective Subjective Date of Service: 03/13/25 Interval History: And proceed with surgery as an outpatient. Patient seen examined at bedside this morning, [place] she is feeling better, states that she wishes to patient to be discharged on IV antibiotics with EOT on 03/18. Review of Systems Review of Systems: Yes all other systems are reviewed and are negative Physical Exam 2 Exam: Exam: General: AxOx3, No acute distress Head: AT/NC ENT: Moist mucous membranes Neck: supple CVS; RRR, S1 S2 normal Lungs: Clear bilateral breath sounds, no wheezes or crackles Abd: Soft, mild tenderness Ext: No edema and no calf tenderness MSK: moving all 4 limbs Skin: No cyanosis or edema Psych: Cooperative with exam Neurology: no focal deficit Vital Signs: Vital Signs: Last Vital Signs Temp 97.3 F 03/13/25 07:20 Pulse 66 03/13/25 07:20 Resp 16 03/13/25 07:20 BP 124/59 L 03/13/25 07:20 Pulse Ox 94 03/13/25 07:20 O2 Del Method Room Air 03/13/25 07:20 O2 Flow Rate 2 03/12/25 23:09 BMI result Body Mass Index 36.8 Objective Data Active Medications Albuterol/Ipratropium (Albuterol/Iprat 2.5/0.5mg 3 Ml Ampul.Neb) 3 ml INHALE Q4H PRN PRN Reason: Shortness of Breath/Wheezing Atenolol (Atenolol 50 Mg Tablet) 50 mg PO DAILY EUGENIO; Protocol Last Admin: 03/13/25 08:14 Dose: 50 mg Documented By: MARK Bisacodyl (Bisacodyl 10 Mg Supp.Rect) 10 mg [place] BEDTIME PRN PRN Reason: Constipation Calcium Carbonate (Calcium Carbonate 750 Mg Tab.Chew) 750 mg PO Q4H PRN PRN Reason: Heartburn Last Admin: 03/13/25 01:31 Dose: 750 mg Documented By: GRIFFIN Doxazosin Mesylate (Doxazosin Mesylate 2 Mg Tablet) 2 mg PO BEDTIME EUGENIO; Protocol Last Admin: 03/12/25 21:59 Dose: 2 mg Documented By: GRIFFIN Enoxaparin Sodium (Enoxaparin Sodium 40 Mg/0.4 Ml Syringe) 40 mg SUBCUT Q24H [facility]GENIO Last Admin: 03/13/25 08:15 Dose: 40 mg Documented By: MARK Folic Acid (Folic Acid 1 Mg Tablet) 2 mg PO DAILY [facility] 234 BEDS AT THE [facility] Last Admin: 03/13/25 08:13 Dose: 2 mg Documented By: MARK Furosemide (Furosemide 40 Mg Tablet) 40 mg PO DAILY [facility]S [facility]CLUDE 234 BEDS AT THE [facility]; Protocol Last Admin: 03/13/25 08:13 Dose: 40 mg Documented By: MARK Hydralazine HCl (Hydralazine Hcl 20 Mg/Ml Vial) 5 mg IVPUSH Q6H PRN; Protocol PRN Reason: SBP > 160 Last Admin: 03/11/25 00:22 Dose: 5 mg Documented By: MASOOD Hydromorphone HCl (Hydromorphone Hcl 1 Mg/Ml Syringe) 0.5 mg IVPUSH Q4H PRN; Protocol PRN Reason: Pain, Severe (Pain Scale 7-10) Magnesium Hydroxide (Milk Of Magnesia 30 Ml Oral.Susp) 30 ml PO DAILY PRN PRN Reason: Constipation Magnesium Oxide (Magnesium Oxide 400 Mg Tablet) 400 mg PO DAILY [facility]CLUDE 234 BEDS AT THE [facility] Last Admin: 03/13/25 08:13 Dose: 400 mg Documented By: MARK Melatonin (Melatonin 3 Mg Tablet) 6 mg PO BEDTIME PRN PRN Reason: Insomnia Last Admin: 03/12/25 01:43 Dose: 6 mg Documented By: GRIFFIN Meropenem (Meropenem 1 Gm Vial) 1 gm IVPUSH Q12H COUNTS INCLUDE 234 BEDS AT THE [facility] Stop: 03/18/25 08:59 Last Admin: 03/13/25 08:13 Dose: 1 gm Documented By: MARK Multivitamins/Vitamin C (Multivitamin Tablet) 1 tab PO DAILY [facility]CLUDE 234 BEDS AT THE [facility] Last Admin: 03/13/25 08:13 Dose: 1 tab Documented By: MARK Omeprazole (Omeprazole 40 Mg Capsule.Dr) 40 mg PO BID [facility]S [facility]CLUDE 234 BEDS AT THE [facility] Last Admin: 03/13/25 08:14 Dose: 40 mg Documented By: MARK Ondansetron HCl (Ondansetron Hcl 4 Mg/2 Ml Vial) 4 mg IVPUSH Q8H PRN PRN Reason: Nausea and Vomiting Last Admin: 03/11/25 18:13 Dose: 4 mg Documented By: MAUREEN Oxycodone HCl (Oxycodone Hcl Immed Release 5 Mg Tablet) 20 mg PO Q4H PRN PRN Reason: Pain, Moderate(Pain Scale 4-6) Last Admin: 03/13/25 11:27 Dose: 20 mg Documented By: MARK Polyethylene Glycol (Polyethylene Glycol 3350 17 Gm Powd.Pack) 17 gm PO DAILY PRN PRN Reason: Constipation Prednisone (Prednisone 1 Mg Tablet) 4 mg PO DAILY [facility] 234 BEDS AT THE [facility] Last Admin: 03/13/25 08:14 Dose: 4 mg Documented By: MARK Pregabalin (Pregabalin 200 Mg Capsule) 200 mg PO BID [facility]S INCLUDE 234 BEDS AT THE [facility] Last Admin: 03/13/25 08:14 Dose: 200 mg Documented By: MARK Senna (Sennosides 8.6 Mg Tablet) 17.2 mg PO BEDTIME COUNTS INCLUDE 234 BEDS AT THE [facility] Last Admin: 03/12/25 22:01 Dose: Not Given Documented By: GRIFFIN Non-Admin Reason: loose stools Sodium Chloride (0.9 % Sodium Chloride Flush 3 Ml Syringe) 3 ml IVFLUSH QSHIFT COUNTS INCLUDE 234 BEDS AT THE [facility] Last Admin: 03/13/25 08:15 Dose: 3 ml Documented By: MARK Thiamine HCl (Thiamine Hcl 100 Mg Tablet) 50 mg PO DAILY [facility]S [facility]CLUDE 234 BEDS AT THE [facility] Last Admin: 03/13/25 08:14 Dose: 50 mg Documented By: MARK Vitamin D (Cholecalciferol (Vitamin D3) 25 Mcg Tablet) 25 mcg PO DAILY [facility]S [facility]CLUDE 234 BEDS AT THE [facility] Last Admin: 03/13/25 08:13 Dose: 25 mcg Documented By: MARK Labs 03/13/25 06:10 03/13/25 06:10 Labs: Laboratory Results - last 24 hr 03/13/25 06:10 MCV 92.0 MCH 30.1 MCHC 32.7 RDW 16.3 H Plt Count 152 L MPV 11.1 Absolute Nucleated RBC 0.020 H Nucleated RBC % (auto) 0.3 H Anion Gap 11 L Estim Creat Clear Calc 42.3 Estimated GFR 41 Random Glucose 98 Calcium 8.6 Total Bilirubin 0.4 AST 32 H ALT 65 H Alkaline Phosphatase 126 H Total Protein 6.6 Albumin 3.1 L Assessment and Plan (1) Peripheral artery disease: Status: Acute (2) Infrarenal abdominal aortic aneurysm (AAA) without rupture: Status: Acute (3) Transaminitis: Status: Acute (4) Cholelithiasis: Status: Acute (5) Elevated LFTs: Status: Acute (6) Acute cystitis: Status: Acute (7) Lower extremity weakness: Status: Acute Plan 75-year-old female with a complex history including hypertension, CHF (HFpEF), COPD (on nocturnal O2), ESBL UTI, RA on chronic opioids, hypothyroidism, obesity, infrarenal AAA, and left TKR, admitted for acute RUQ/epigastric pain, nausea/vomiting, and inability to tolerate oral medications, found to have acute cystitis (ESBL), transaminitis with imaging concerning for cholecystitis, and a growing infrarenal AAA, now stable on the medical floor. Acute Cholelithiasis with elevated liver enzymes UTI secondary to ESBL E Coli -Imaging reviewed, MRCP w/ cholecystitis -Continue meropenem, given ESBL, will D/C with ertapenem -Per General surgery, outpatient elective cholecystectomy per patients wishes. -Monitor for any fever. Infrarenal Abdominal Aortic Aneurysm (AAA) ? 4.5 cm, stable, no rupture Course:?Known AAA, increased from 4.0 cm (10/2024) to 4.5 cm. No leak on CT. No vascular follow-up. BP controlled, renal function stable. Vascular surgery consulted. Plan: * Vascular surgery recs on outpatient follow up and conservative tx at this time. * Strict BP control (goal <130/80). * Avoid heavy lifting/straining. * Monitor for abdominal/back pain, hypotension. Immobility / S/P Left TKR / Chronic Pain / Fall Risk Course:?Wheelchair-bound, unable to ambulate, left knee swelling, chronic pain on high-dose oxycodone, history of stable medial femoral condyle fracture, negative for acute DVT (venous duplex negative), negative for new fracture (x- ray). Plan * PT/OT evaluation for mobility and safe transfer. * Strict fall precautions, bed/chair alarms. * Continue bowel regimen. * Pain management: continue home regimen, consider opioid weaning plan, consult pain management outpatient. * Case management to ensure safe discharge plan (home services, equipment) Heart Failure with Preserved Ejection Fraction (HFpEF) Course:?History of CHF, BNP 2531, no acute decompensation, on furosemide, fluid restriction, daily weights, last echo (04/2024) with?intra-atrial shunt. Plan: * Continue furosemide 40 mg daily. * Fluid restriction 1.5 L/day. * Daily weights, strict I/Os. * Low-sodium diet. * Repeat echo ordered. COPD (on nocturnal O2) Course:?No acute exacerbation, uses 2-3L O2 at night, no RUDY, no current respiratory distress. Plan: * Continue home O2 at night. * PRN duonebs. * Monitor for hypoxia, respiratory distress. * Avoid sedating medications. Hypertension Course:?BP controlled on atenolol, history of severe hypertension on ED arrival (improved after pain control). Plan: * Continue atenolol, monitor BP. * Hold for SBP <90 or HR <60. * Low-sodium diet. Hypothyroidism Course:?Stable, TSH WNL, on levothyroxine. Plan: Continue levothyroxine 50 mcg daily. Chronic Pain / RA / Fibromyalgia Course:?On chronic oxycodone, methotrexate, prednisone, pregabalin. Admits to opioid dependence. No acute joint swelling. Plan: * Continue home pain regimen. * Bowel regimen. * Encourage outpatient pain management referral. * Monitor for opioid withdrawal. Depression Course:?On bupropion, mood stable. Plan: * Continue bupropion. * Monitor for mood changes. Obesity (BMI 44.3) Course:?Contributes to immobility, RUDY risk. Plan: * Encourage weight management counseling as outpatient. Lymphedema / Left Leg Edema Course:?Chronic, no DVT, no cellulitis. Plan: * Elevate leg, compression as tolerated. * Monitor for skin breakdown. GERD Course:?On omeprazole. Plan: * Continue omeprazole at increased dose per surgery recs Osteomyelitis (remote) Course:?No current evidence of active infection. Plan: * Monitor for signs of recurrence. [employer] * VTE Prophylaxis: Enoxaparin 40 mg qd SQ * Code Status: Full code * Diet: Low sodium, regular as tolerated Total time managing care of this patient today: 35 minutes. Quality Stroke Does the patient have a stroke diagnosis?: No Reason for No Anti-thrombotic by Day Two: N/A - Med Ordered VTE Prior VTE?: No VTE Risk Level:: Medical - moderate - high VTE Device Contraindication: N/A - Device Ordered VTE Drug Contraindication: N/A - Med Ordered
[2025-03-13 12:00] VITALS: BP 131/60; PULSE 69; RESP 14; TEMP 36.6; O2SAT 96
--- NOTE | 2025-03-13 13:21 | MHC.CM.PN ---
PER MD ROUNDS, PT SHOULD BE ABLE TO DC 03/14 AFTER GETTING MIDLINE. [facility] LIAISON IN AND IV ORDERS OBTAINED. PT DECLINES TEACH. IV ORDERS AND UPDATES GIVEN TO [facility] VIA [facility]. CM WILL CONTINUE TO FOLLOW.
[2025-03-13 15:07] VITALS: BP 120/56; PULSE 63; RESP 18; TEMP 36.2; O2SAT 96
[2025-03-13 19:31] VITALS: BP 142/62; PULSE 67; RESP 18; TEMP 36.6; O2SAT 94
[2025-03-13 23:31] VITALS: BP 138/63; PULSE 55; RESP 14; TEMP 36; O2SAT 97
[2025-03-14] MEDS: oxyCODONE HCl Immed Release 5 MG TABLET 20 MG PO ×4 (03:02→14:09)
[2025-03-14 03:08] VITALS: BP 135/63; PULSE 61; RESP 14; TEMP 36; O2SAT 95
[2025-03-14 06:00] VITALS: BMI 37.5
[2025-03-14 07:17] VITALS: BP 115/65; PULSE 65; RESP 16; TEMP 36.6; O2SAT 99
--- NOTE | 2025-03-14 11:00 | HO.MIDLINE ---
Midline Insertion MIDLINE INSERTION Diagnosis: ESBL Indication: retirement Antibx Pertinent Labs: Reviewed Technique: Using sterile technique including cap and mask, glove and drape, the RIGHT arm was prepped and draped in the usual sterile fashion of full barrier technique with CHG. Using ultrasound guidance, RIGHT Brachial vein access was obtained []. [id number] PowerGlide ST Non-Pasv midline was positioned. The procedure was performed in 7. Ultrasound was used to document vein patency and for needle entry. A formal ultrasound picture was recorded. [employer] Un[employer] has released the line for use and it is currently dressed with a StatLock, Tegaderm, and CHG disc. Verification has been performed for blood return and line patency. Arm Circumference: 31CM Equipment: Bard PowerGlide ST Non-Pasv Midline Catheter Catheter Type: [id number] PowerGlide ST Non-Pasv Midline Lot #: [id number]
--- NOTE | 2025-03-14 11:11 | P.DS_ITS ---
DS: Providers Provider Date of admission: 03/08/25 19:07 Date of discharge: 03/14/25 Primary care physician: Namita Acosta NP Consults: 03/08/25 17:35 Consult to Infectious Diseases Routine Consulting Provider: [facility] Reason for consultation: Hx of ESBL UTIs Has provider been notified: No 03/08/25 19:13 Consult to Gastroenterology Routine Consulting Provider: Carlos Mcdaniel Reason for consultation: transaminitis, CT neg, US pending Has provider been notified: No 03/08/25 19:14 Consult to Vascular Surgery Routine Consulting Provider: [facility] Vascular Services Reason for consultation: growing infrarenal AAA, 4.0 to now 4.5 in less than 4 months Has provider been notified: No 03/08/25 20:17 Consult to Case Management Routine Comment: Patient lives alone, , minimal support now immobil 03/08/25 21:20 Consult to General Surgery Routine Consulting Provider: [facility] General Surgeons Reason for consultation: transaminitits, CT neg, US pos cholecystitis, pericholecystic fluid present Has provider been notified: No 03/10/25 10:56 Consult to Infectious Diseases Routine Consulting Provider: [facility] Reason for consultation: esbl UTI DS: Diagnosis Discharge Diagnosis (1) Peripheral artery disease: Status: Acute (2) Infrarenal abdominal aortic aneurysm (AAA) without rupture: Status: Acute (3) Transaminitis: Status: Acute (4) Cholelithiasis: Status: Acute (5) Elevated LFTs: Status: Acute (6) Acute cystitis: Status: Acute (7) Lower extremity weakness: Status: Acute DS: Summary Hospital Course Hospital Course: 75-year-old female with a complex history including hypertension, CHF (HFpEF), COPD (on nocturnal O2), ESBL UTI, RA on chronic opioids, hypothyroidism, obesity, infrarenal AAA, and left TKR, admitted for acute RUQ/epigastric pain, nausea/vomiting, and inability to tolerate oral medications, found to have acute cystitis (ESBL), cholelithiasis and groin AAA. Patient was seen by general surgery suggested on surgery, however patient referred that she wished for this to be done as an outpatient, cultures positive for ESBL E coli, we will discharge on ertapenem with EOT on 03/08. Patient seen by vascular surgery, suggested conservative treatment at this time. Acute Cholelithiasis with elevated liver enzymes UTI secondary to ESBL E Coli -Imaging reviewed, MRCP w/ cholecystitis -Continue with ertapenem EoT on 03/18 -Per General surgery, outpatient elective cholecystectomy per patients wishes. -Monitor for any fever. Infrarenal Abdominal Aortic Aneurysm (AAA) ? 4.5 cm, stable, no rupture Course: Known AAA, increased from 4.0 cm (10/2024) to 4.5 cm. No leak on CT. No vascular follow-up. BP controlled, renal function stable. Vascular surgery consulted. Plan: Vascular surgery recs on outpatient follow up and conservative tx at this time. Strict BP control (goal <130/80). Avoid heavy lifting/straining. Monitor for abdominal/back pain, hypotension. Heart Failure with Preserved Ejection Fraction (HFpEF) Course: History of CHF, BNP 2531, no acute decompensation, on furosemide, fluid restriction, daily weights, last echo (04/2024) with?intra-atrial shunt. Plan: Continue furosemide 40 mg daily. Fluid restriction 1.5 L/day. Daily weights, strict I/Os. Low-sodium diet. Repeat echo ordered. COPD (on nocturnal O2) Course: No acute exacerbation, uses 2-3L O2 at night, no RUDY, no current respiratory distress. Plan: Continue home O2 at night. PRN duonebs. Monitor for hypoxia, respiratory distress. Hypertension Course: BP controlled on atenolol, history of severe hypertension on ED arrival (improved after pain control). Plan: Continue atenolol, monitor BP. Hold for SBP <90 or HR <60. Low-sodium diet. Hypothyroidism Course: Stable, TSH WNL, on levothyroxine. Plan: Continue levothyroxine 50 mcg daily. Chronic Pain / RA / Fibromyalgia Course: On chronic oxycodone, methotrexate, prednisone, pregabalin. Admits to opioid dependence. No acute joint swelling. Plan: Continue home pain regimen. Bowel regimen. Encourage outpatient pain management referral. Monitor for opioid withdrawal. Depression Course: On bupropion, mood stable. Plan: Continue bupropion. Monitor for mood changes. Obesity (BMI 44.3) Course: Contributes to immobility, RUDY risk. Plan: Encourage weight management counseling as outpatient. Lymphedema / Left Leg Edema Course: Chronic, no DVT, no cellulitis. Plan: Elevate leg, compression as tolerated. Monitor for skin breakdown. GERD Course: On omeprazole. Plan: Continue omeprazole at increased dose per surgery recs Time Attestation Discharge Coordination Time (in mins): 35 minutes Quality: Safe Use of Opioids Does Pt have an Active Cancer Diagnosis on the Problem List?: No Quality: Stroke Does the patient have a stroke diagnosis?: No Physical Exam Exam: Exam: General: AxOx3, No acute distress Head: AT/NC ENT: Moist mucous membranes Neck: supple CVS; RRR, S1 S2 normal Lungs: Clear bilateral breath sounds, no wheezes or crackles Abd: Soft, mild tenderness Ext: No edema and no calf tenderness MSK: moving all 4 limbs Skin: No cyanosis or edema Psych: Cooperative with exam Neurology: no focal deficit Vital Signs: Vital Signs: Last Vital Signs Temp 98 F 03/14/25 07:17 Pulse 65 03/14/25 07:17 Resp 16 03/14/25 07:17 BP 115/65 03/14/25 07:17 Pulse Ox 99 03/14/25 07:17 O2 Del Method Nasal Cannula 03/14/25 07:17 O2 Flow Rate 2 03/14/25 07:17 BMI result Body Mass Index 37.5 DS: Data Data Completed and Pending Completed studies during hospitalization [Text1]: Procedures Insertion of Infusion Device into Right Basilic Vein, Percutaneous Approach (11/19/24) Insertion of Infusion Device into Right Brachial Vein, Percutaneous Approach (12/27/24) Insertion of Infusion Device into Right Cephalic Vein, Percutaneous Approach (10/13/23) Discharge Plan Discharge Anticipated Discharge Date/Time: 03/14/25 14:06 Patient Disposition: Home Health Service Discharge Diagnosis: Cholelithiasis Referrals: [facility] [Other] - 1 Week Referral Note: [facility] [Outside] - 1 Week Referral Note: HOME SERVICES FOR LONG TERM- A NURSE WILL CALL YOU TO SET UP FIRST VISIT Von Hercules MD [Physician, General Surgery] - 3 Weeks Namita Acosta NP [Primary Care Provider, Internal Medicine] - 1 Week Discharge Medications: New ertapenem 1 gram recon soln 1 g IV DAILY 3 Days Continued omeprazole 40 mg capsule,delayed release(DR/EC) 40 mg PO DAILY@0630 methotrexate sodium 2.5 mg tablet 25 mg PO WE@0900 prednisone 1 mg tablet 4 mg PO DAILY folic acid 1 mg tablet 2 mg PO DAILY multivitamin Tablet 1 tab PO DAILY melatonin 10 mg Tablet 10 mg PO BEDTIME PRN (Reason: Sleep) pregabalin 200 mg capsule 200 mg PO BID oxycodone 20 mg tablet 20 mg PO Q4H PRN (Reason: pain (scale score 7-10)) Qty: 20 0RF acetaminophen [Tylenol] 325 mg Tablet 650 mg PO Q4H PRN (Reason: Moderate Pain (Scale Score 5-6)) atenolol 25 mg tablet 50 mg PO DAILY Protocol: Hold for SBP/HR < HOLD for SBP < : 90 HOLD for HR < : 60 furosemide 40 mg tablet 40 mg PO DAILY PRN (Reason: Edema) cholecalciferol (vitamin D3) 25 mcg (1,000 unit) capsule 25 mcg PO DAILY thiamine HCl (vitamin B1) 50 mg Tablet 50 mg PO DAILY magnesium oxide 400 mg magnesium Tablet 400 mg PO DAILY doxazosin 2 mg tablet 2 mg PO BEDTIME Discharge Orders: Discharge Order (Routine); Ordered 03/14/25 Ordered By: Connor Singh Stand Alone Forms: Patient Portal Discharge page Print Language: Spanish Care Plan Goals: Continue IV antibiotics with end of treatment on 03/18 Follow up with general surgery as outpatient Avoid high fat containing meals Health Concerns: Cholelithiasis AAA Plan of Treatment: Continue ertapenem until 03/18, monitor for any fever, worsening pain Follow up with PCP, Vascular surgery and General surgery as outpatient Assessment: 75-year-old female with a complex history including hypertension, CHF (HFpEF), COPD (on nocturnal O2), ESBL UTI, RA on chronic opioids, hypothyroidism, obesity, infrarenal AAA, and left TKR, admitted for acute RUQ/epigastric pain, nausea/vomiting, and inability to tolerate oral medications, found to have acute cystitis (ESBL), cholelithiasis and groin AAA. Patient was seen by general surgery suggested on surgery, however patient referred that she wished for this to be done as an outpatient, cultures positive for ESBL E coli, we will discharge on ertapenem with EOT on 03/08. Patient seen by vascular surgery, suggested conservative treatment at this time. Patient Instructions: Gallstones (DC), Low Fat Diet (DC)
--- NOTE | 2025-03-14 11:19 | W.MHC.F2F ---
Service Date Service Date: 03/14/25 Encounter Date of encounter: 03/14/25 Reasons for Services Signs and symptoms assessed: Patient requiring IV antibiotics given urine culture positive for ESBL, which Augmentin does not cover. Unable to obtain culture from gallbladder site as surgery was deferred. Reason for detention: medication management and medication treatment Homebound: Leaving the home is medically contraindicated at this time without the asist of a device and/or another person due th the listed conditions above and below. Reason homebound: unsteady gait / fall risk Certification: Based on the above findings, I certify that this patient is confined to the home and needs intermittent detention care, physical therapy and/or speech therapy, or continues to need occupational therapy. The patient is under my care, and I have initiated the establishment of the plan of care. The patient will be followed by a physician who will periodically review the plan of care. Time Spent With Patient Time: Total time managing care of this patient today ____ minutes.
--- NOTE | 2025-03-14 11:37 | MHC.CM.PN ---
DP: PT HAS BEEN MEDICALLY CLEARED FOR DC HOME WITH [facility] FOR HALF-WAY. BLS TRANSPORT BOOKED FOR 2 PM VIA [facility]. RN/PROVIDER AWARE. [facility] UPDATED ON TODAY'S DC. FINAL IMM DELIVERED
[2025-03-14 11:44] VITALS: BP 150/66; PULSE 58; RESP 16; TEMP 36.6; O2SAT 97
[2025-03-14] MEDS: 0.9 % Sodium Chloride Flush 3 ML SYRINGE IVFLUSH (11:55)
== END 2025-03-14 14:10 | disposition home health service (06) | DRG 690 ==
LOC: HO.ED 12:44 → HO.EDOVER 19:21 → HO.IMC 03-09 16:47 → HO.S3 03-10 22:28
PROVIDERS: Hospitalist; Internal Medicine Gastroenterology; Physician Assistant Medical; Admitting Provider Nurse Practitioner Family; Emergency Provider Emergency Medicine; PCP Nurse Practitioner Adult Health; Visit Provider Student in an Organized Health Care Education/Training Program
DX: N30.00 Acute cystitis without hematuria (principal); Z16.12 Extended spectrum beta lactamase (ESBL) resistance; I50.32 Chronic diastolic (congestive) heart failure; F11.20 Opioid dependence, uncomplicated; Z68.41 Body mass index [BMI] 40.0-44.9, adult; K80.00 Calculus of gallbladder with acute cholecystitis without obstruction; I71.43 Infrarenal abdominal aortic aneurysm, without rupture; B96.20 Unspecified Escherichia coli [E. coli] as the cause of diseases classified elsewhere; J44.9 Chronic obstructive pulmonary disease, unspecified; K21.9 Gastro-esophageal reflux disease without esophagitis; M79.7 Fibromyalgia; M06.9 Rheumatoid arthritis, unspecified; I11.0 Hypertensive heart disease with heart failure; E66.9 Obesity, unspecified; I89.0 Lymphedema, not elsewhere classified; Z71.3 Dietary counseling and surveillance; E03.9 Hypothyroidism, unspecified; Z20.822 Contact with and (suspected) exposure to COVID-19; Z99.81 Dependence on supplemental oxygen; Z74.01 Bed confinement status; Z87.891 Personal history of nicotine dependence; Z87.440 Personal history of urinary (tract) infections; Z79.52 Long term (current) use of systemic steroids; Z79.631 Long term (current) use of antimetabolite agent; Z79.890 Hormone replacement therapy; Z79.899 Other long term (current) drug therapy
CPT/HCPCS: 36410; 36415; 73564; 74177; 74181; 76705; 80048; 80053; 80076; 81001; 83605; 83690; 83735; 83880; 84443; 84484; 85025; 85027; 86704; 86706; 86709; 86803; 87040; 87086; 87088; 87186; 87340; 87637; 93005; 93306; 93971; 97162; 97530; 99285; J0360; J1171; J1335; J1650; J1885; J2185; J2405; J2543; J7120; Q9967

== ENCOUNTER → 2025-03-08 12:27 | Outpatient (BNV) | payer MEDICARE, MEDICAID, SELFPAY | PROVIDERS: Admitting Provider Nurse Practitioner Family; Emergency Provider Emergency Medicine; PCP Nurse Practitioner Adult Health; Visit Provider Internal Medicine Cardiovascular Disease | DX: R94.31 Abnormal electrocardiogram [ECG] [EKG] (principal); R10.13 Epigastric pain; R79.89 Other specified abnormal findings of blood chemistry | CPT/HCPCS: 93010 ==

== ENCOUNTER → 2025-03-08 14:52 | Outpatient (BNV) | payer MEDICARE, MEDICAID, SELFPAY | PROVIDERS: Emergency Provider Emergency Medicine; PCP Nurse Practitioner Adult Health; Visit Provider Radiology Diagnostic Radiology | DX: I71.43 Infrarenal abdominal aortic aneurysm, without rupture (principal); K80.20 Calculus of gallbladder without cholecystitis without obstruction; K82.8 Other specified diseases of gallbladder; Z03.89 Encounter for observation for other suspected diseases and conditions ruled out | CPT/HCPCS: 73564; 74177; 76705 ==

== ENCOUNTER 2025-03-08 19:07 | Outpatient (BNV) | payer MEDICARE, MEDICAID, SELFPAY | END 2025-03-09 07:00 | PROVIDERS: Admitting Provider Nurse Practitioner Family; Emergency Provider Emergency Medicine; PCP Nurse Practitioner Adult Health; Visit Provider Specialist | DX: K80.20 Calculus of gallbladder without cholecystitis without obstruction (principal); R22.42 Localized swelling, mass and lump, left lower limb | CPT/HCPCS: 74181; 93971 ==

== ENCOUNTER 2025-03-08 19:07 | Outpatient (BNV) | payer MEDICARE, MEDICAID, SELFPAY | END 2025-03-10 07:00 | PROVIDERS: Admitting Provider Nurse Practitioner Family; Emergency Provider Emergency Medicine; PCP Nurse Practitioner Adult Health; Visit Provider Internal Medicine Cardiovascular Disease | DX: I51.89 Other ill-defined heart diseases (principal); I42.2 Other hypertrophic cardiomyopathy | CPT/HCPCS: 93306 ==

== ENCOUNTER → 2025-03-08 19:07 | Outpatient (BNV) | payer MEDICARE, MEDICAID, SELFPAY | PROVIDERS: Admitting Provider Nurse Practitioner Family; Emergency Provider Emergency Medicine; PCP Nurse Practitioner Adult Health; Visit Provider Internal Medicine | DX: K80.01 Calculus of gallbladder with acute cholecystitis with obstruction (principal); R74.01 Elevation of levels of liver transaminase levels | CPT/HCPCS: 99222 ==

== ENCOUNTER → 2025-03-08 19:07 | Outpatient (BNV) | payer MEDICARE, MEDICAID, SELFPAY | PROVIDERS: Admitting Provider Nurse Practitioner Family; Emergency Provider Emergency Medicine; PCP Nurse Practitioner Adult Health; Visit Provider Surgery | DX: R79.89 Other specified abnormal findings of blood chemistry (principal); K80.01 Calculus of gallbladder with acute cholecystitis with obstruction | CPT/HCPCS: 99232 ==

== ENCOUNTER → 2025-03-08 19:07 | Outpatient (BNV) | payer MEDICARE, MEDICAID, SELFPAY | PROVIDERS: Admitting Provider Nurse Practitioner Family; Emergency Provider Emergency Medicine; PCP Nurse Practitioner Adult Health; Visit Provider Surgery Vascular Surgery | DX: I71.43 Infrarenal abdominal aortic aneurysm, without rupture (principal); I89.0 Lymphedema, not elsewhere classified | CPT/HCPCS: 99222 ==

== ENCOUNTER → 2025-03-08 19:07 | Outpatient (BNV) | payer MEDICARE, MEDICAID, SELFPAY | PROVIDERS: Admitting Provider Nurse Practitioner Family; Emergency Provider Emergency Medicine; PCP Nurse Practitioner Adult Health; Visit Provider Internal Medicine Gastroenterology | DX: K80.01 Calculus of gallbladder with acute cholecystitis with obstruction (principal); R79.89 Other specified abnormal findings of blood chemistry | CPT/HCPCS: 99222 ==

== ENCOUNTER → 2025-03-08 19:07 | Outpatient (BNV) | payer MEDICARE, MEDICAID, SELFPAY | PROVIDERS: Admitting Provider Nurse Practitioner Family; Emergency Provider Emergency Medicine; PCP Nurse Practitioner Adult Health; Visit Provider Nurse Practitioner Family | DX: I73.9 Peripheral vascular disease, unspecified (principal); R74.01 Elevation of levels of liver transaminase levels; K80.01 Calculus of gallbladder with acute cholecystitis with obstruction; N30.00 Acute cystitis without hematuria; R29.898 Other symptoms and signs involving the musculoskeletal system; I71.43 Infrarenal abdominal aortic aneurysm, without rupture | CPT/HCPCS: 99223; 99233 ==